=== PATIENT | female | born 1945 | race Caucasian/White ===

== ENCOUNTER 2017-02-23 21:27 | Emergency (ER) | payer OTHER, MEDICARE ==
[2017-02-23 21:40] VITALS: TEMP 98; BMI 39.0
[2017-02-23 22:13] LABS: BASOPHIL 0.8 % (0-2.0); EOSINOPHIL 4.3 % (0-4.5); MCH 29.7 pg (25.7-33.7); MCHC 32.6 g/dl (32.0-36.0); MEAN CELL VOLUME 91.1 fl (80-96); MEAN PLT VOLUME 8.4 fl (7.5-11.1); PLATELET COUNT 218 K/MM3 (134-434); WHITE BLOOD COUNT 10.1 K/mm3 (4.0-10.0)
[2017-02-23 22:24] LABS: INR 1.54 (0.82-1.09); PROTHROMBIN TIME (PATIENT) 17.1 SEC (9.98-11.88)
[2017-02-24 00:43] LABS: ALBUMIN 3.3 g/dl (3.4-5.0); ANION GAP 9 (8-16); CO2 27 mmol/L (21-32); GLUCOSE,RANDOM 106 mg/dL (74-106)
[2017-02-24 00:46] LABS: ALK PHOS 125 U/L (45-117); BILIRUBIN,TOTAL 0.5 mg/dL (0.2-1.0); CREATININE 1.9 mg/dL (0.55-1.02); SGOT/AST 14 U/L (15-37); SGPT/ALT 16 U/L (12-78); TOT PROT 6.7 g/dl (6.4-8.2)
[2017-02-24 00:48] LABS: MAGNESIUM 2.6 mg/dL (1.8-2.4); TROPONIN I < 0.02 ng/ml (0.00-0.05)
--- NOTE | 2017-02-24 01:22 | PDOC ---
History of Present Illness - General Chief Complaint: Chest Pain Stated Complaint: CHEST PAIN Time Seen by Provider: 02/23/17 21:44 - History of Present Illness Initial Comments: 02/24/17 01:20 CHIEF COMPLAINT: shortness of breath HISTORY OF PRESENT ILLNESS: 71 yo M with hx of hypertension, diabetes, nonischemic cardiomyopathy, chronic systolic heart failure, DVT on Xarelto, rheumatoid arthritis, cellulitis, multiple surgeries to knees, hip, and back presents to ED with shortness of breath since yesterday. She states that "I'm in congestive heart failure." She reports that "ever since my surgery my R leg has been swollen like this, since 9 months ago." She states that her leg is in pain but it is a chronic pain that she has had for months. No recent travel or sick contacts. PAST MEDICAL HISTORY: Denies past medical history FAMILY HISTORY: Denies SOCIAL HISTORY: Denies tobacco, alcohol, illicit drug use. SURGICAL HISTORY: Denies ALLERGIES: levofloxacin, methotrexate, PCN, bumetanide REVIEW OF SYSTEMS General/Constitutional: Denies fever or chills. Denies weakness, weight change. HEENT: Denies change in vision. Denies ear pain or discharge. Denies sore throat. Cardiovascular: Shortness of breath, denies chest pain Respiratory: Denies cough, wheezing, or hemoptysis. Gastrointestinal: Denies nausea, vomiting, diarrhea or constipation. Denies rectal bleeding. Genitourinary: Denies dysuria, frequency, or change in urination. Musculoskeletal: "My legs are so swollen, especially my right one ever since my surgery 9 months ago." Skin and breasts: Denies rash or easy bruising. Neurologic: Denies headache, vertigo, loss of consciousness, or loss of sensation. PHYSICAL EXAM General Appearance: Well-appearing, appropriately dressed. No apparent distress. HEENT: EOMI, PERRLA, normal ENT inspection, normal voice, TMs normal, pharynx normal. No conjunctival pallor. No photophobia, scleral icterus. Neck: Supple. Trachea midline. No tenderness, rigidity, carotid bruit, stridor , lymphadenopathy, or thyromegaly. Respiratory/Chest: SOB. Lungs CTAB. No chest tenderness, respiratory distress. No crackles, rales, rhonchi, stridor, wheezing, dullness Cardiovascular: RRR. S1, S2. Vascular Pulses: Dorsalis-Pedis (R): 2+, Dorsalis-Pedis (L): 2+ Gastrointestinal/Abdominal: Normal bowel sounds. Abdomen soft, non-distended. No tenderness or rebound tenderness. No organomegaly, pulsatile mass, guarding , hernia, hepatomegaly, splenomegaly. Musculoskeletal/Extremities: Edematous b/l legs. Normal inspection. FROM of all extremities, normal capillary refill. Pelvis Stable. No CVA tenderness. No tenderness to extremities, pedal edema, swelling, erythema or deformity. Integumentary: Appropriate color, dry, warm. 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 Fully oriented, alert. Appropriate mood/affect. Motor strength 5/5. No appreciable EOM palsy, facial droop or sensory deficit. Past History - Past Medical History Allergies/Adverse Reactions: Allergies Allergy/AdvReac Type Severity Reaction Status Date / Time levofloxacin [From Levaquin] Allergy Severe ANAPHYLAXIS Verified 02/23/17 22:58 methotrexate Allergy Severe Swelling Verified 02/23/17 22:58 Penicillins Allergy Mild Rash Verified 02/23/17 22:58 bumetanide [From Bumex] Allergy Rash Verified 02/23/17 22:58 piperacillin sodium AdvReac Mild Itching Verified 02/23/17 22:58 [From Zosyn] tazobactam sodium AdvReac Mild Itching Verified 02/23/17 22:58 [From Zosyn] Home Medications: Ambulatory Orders Carvedilol [Coreg] 25 mg PO BID 02/05/13 Leflunomide [Arava] 20 mg PO DAILY 02/05/13 Lisinopril [Prinivil] 5 mg PO BID 02/05/13 Gabapentin 300 mg PO BID 03/04/14 Oxycodone HCl/Acetaminophen [Percocet 10-325 mg Tablet] 1 - 2 tab PO Q6H PRN Acetaminophen [Tylenol .Extra-Strength -] 1,000 mg PO Q6H PRN 03/10/15 Furosemide [Lasix -] 20 mg PO DAILY 12/13/15 Rivaroxaban [Xarelto -] 20 mg PO DAILY 12/13/15 Insulin Lispro Protamin/Lispro [Humalog Mix 75-25 Kwikpen] 22 unit SQ BID Cyclobenzaprine HCl [Flexeril -] 10 mg PO HS PRN 03/17/16 Docusate Sodium [Colace -] 100 mg PO DAILY 03/17/16 Folic Acid 1 mg PO DAILY 03/17/16 Multivitamins [Multivit ([facility] Formulary)] 1 tab PO DAILY 03/17/16 Cyclobenzaprine HCl [Flexeril -] 10 mg PO HS 05/15/16 Sulfamethoxazole/Trimethoprim [Bactrim Ds -] 1 tab PO BID 05/15/16 Trazodone HCl 50 mg PO HS 05/15/16 Anemia: No Asthma: No Cancer: No Cardiac Disorders: Yes CVA: No COPD: No CHF: No DVT: Yes Dementia: No Diabetes: Yes GI Disorders: No Disorders: No HTN: Yes Hypercholesterolemia: Yes Liver Disease: No Suicide Attempt (Hx): No Seizures: No Thyroid Disease: No - Surgical History Abdominal Surgery: Yes (GASTRIC BANDING) Appendectomy: No Cardiac Surgery: No Cholecystectomy: Yes Lung Surgery: No Neurologic Surgery: Yes (4 BACK FUSIONS) Orthopedic Surgery: Yes (TKR RT 2004; SHOULDER SX RT, L. KNEE SURGERY-2012,, Rt hip Sx 10/2013 R[facility]) - Immunization History Immunization Up to Date: Yes - Psycho/Social/Smoking Cessation Hx Anxiety: No Suicidal Ideation: No Smoking Status: No Smoking History: Never smoked Have you smoked in the past 12 months: No Number of Cigarettes Smoked Daily: 0 If you are a former smoker, when did you quit?: 40 YRS Hx Alcohol Use: No Drug/Substance Use Hx: No Substance Use Type: None Hx Substance Use Treatment: No *Physical Exam - Vital Signs Last Vital Signs Temp Pulse Resp BP Pulse Ox 98 F 85 16 114/52 96 02/23/17 21:39 02/23/17 22:34 02/23/17 22:34 02/23/17 22:34 02/23/17 22:34 ED Treatment Course - LABORATORY CBC & Chemistry Diagram: 02/23/17 22:08 02/24/17 00:01 - ADDITIONAL ORDERS Additional order review: Laboratory Results 02/24/17 02/24/17 02/23/17 00:01 00:01 22:08 INR Sodium 139 Cancelled Potassium 4.3 Cancelled Chloride 103 Cancelled Carbon Dioxide 27 Cancelled Anion Gap 9 Cancelled BUN 57 H D Cancelled Creatinine 1.9 H D Cancelled Creat Clearance w eGFR 26.13 Cancelled Random Glucose 106 D Cancelled Calcium 9.0 Cancelled Magnesium 2.6 H D Cancelled Total Bilirubin 0.5 D Cancelled AST 14 L Cancelled ALT 16 Cancelled Alkaline Phosphatase 125 H Cancelled Creatine Kinase 138 Cancelled Troponin I < 0.02 Cancelled B-Natriuretic Peptide Cancelled Total Protein 6.7 Cancelled Albumin 3.3 L Cancelled 02/23/17 22:08 INR 1.54 H Sodium Potassium Chloride Carbon Dioxide Anion Gap BUN Creatinine Creat Clearance w eGFR Random Glucose Calcium Magnesium Total Bilirubin AST ALT Alkaline Phosphatase Creatine Kinase Troponin I B-Natriuretic Peptide Total Protein Albumin 02/23/17 22:08 RBC 4.36 MCV 91.1 MCHC 32.6 RDW 15.0 MPV 8.4 Neutrophils % 55.0 D Lymphocytes % 26.5 Monocytes % 13.4 H Eosinophils % 4.3 Basophils % 0.8 - RADIOLOGY Radiology Studies Ordered: Category Date Time Status CHEST X-RAY PORTABLE* [RAD] Stat Radiology 02/23/17 22:49 Taken Medical Decision Making - Medical Decision Making 02/24/17 02:25 71 yo M with hx of hypertension, diabetes, nonischemic cardiomyopathy, chronic systolic heart failure, DVT on Xarelto, rheumatoid arthritis, cellulitis, multiple surgeries to knees, hip, and back presents to ED with shortness of breath since yesterday. -CBC, CMP, PT/INR, card profile, BNP -CXR, EKG CXR wet read normal. EKG - sinus rhythm. 02/24/17 04:07 Laboratory Tests 02/24/17 02/24/17 02/24/17 00:01 00:01 00:01 Creatinine 1.9 H D Magnesium 2.6 H D B-Natriuretic Peptide 277.14 H BNP decreased from previous of 1600+. Patient reassessed; at this time she states she is feeling "ok" and that she is no longer feeling short of breath. Her main concern is that she has had the chronic swelling in her R leg for the past 9 months. Advised patient to follow up with a primary care doctor for usp management of her multiple comorbidities and to coordinate care between her specialists. Patient states she is comfortable going home at this time. Advised patient of signs and symptoms for return to ER; patient verbalized understanding and agrees to plan. *DC/Admit/Observation/Transfer Diagnosis at time of Disposition: Chronic systolic heart failure Acute renal failure Qualifiers: Acute renal failure type: unspecified Qualified Code(s): N17.9 - Acute kidney failure, unspecified - Discharge Dispostion Disposition: HOME Condition at time of disposition: Stable Admit: No - Referrals Referrals: Kyara Amezcua MD [Staff Physician] - Malia Loyd MD [Staff Physician] - - Patient Instructions Printed Discharge Instructions: DI for Heart Failure Additional Instructions: Please follow up with a primary care doctor and capacity planner within the next week. As discussed, it is best to have a primary care doctor that you see regularly to coordinate your care between specialists. If you experience any worsening shortness of breath, chest pain, palpitations, worsening leg pain, or any new or worsening symptoms, please return to the ER.
[2017-02-24 03:27] VITALS: BP 116/60; PULSE 70
--- NOTE | 2017-02-24 16:33 | EKG ---
Test Reason : Blood Pressure : / mmHG Vent. Rate : 091 BPM Atrial Rate : 091 BPM P-R Int : 172 ms QRS Dur : 082 ms QT Int : 364 ms P-R-T Axes : 042 017 050 degrees QTc Int : 447 ms SINUS RHYTHM WITH OCCASIONAL PREMATURE VENTRICULAR COMPLEXES OTHERWISE NORMAL ECG WHEN COMPARED WITH ECG OF 15-MAY-2016 17:09, PREMATURE VENTRICULAR COMPLEXES ARE NOW PRESENT Confirmed by MARIA M CHOU, MARCOS ([id number]) on 02/24/2017 4:33:30 PM Referred By: Confirmed By:MARCOS FRANZ MD
== END 2017-02-24 04:00 | disposition home or self-care (01) ==
LOC: JER 21:27
DX: N17.9 Acute kidney failure, unspecified (principal); I50.22 Chronic systolic (congestive) heart failure; I10 Essential (primary) hypertension; E11.9 Type 2 diabetes mellitus without complications; Z86.718 Personal history of other venous thrombosis and embolism; Z79.01 Long term (current) use of anticoagulants
CPT/HCPCS: 36415; 71010-TC; 80053; 82550; 83735; 83880; 84484; 85025; 85610; 93005; 93010; 99284-25

== ENCOUNTER 2017-04-08 15:58 | Emergency (ER) | payer OTHER, MEDICARE ==
[2017-04-08 16:05] VITALS: BMI 37.2
--- NOTE | 2017-04-08 17:11 | PDOC ---
History of Present Illness <Robi Heard - Last Filed: 04/08/17 17:10> - General History Source: Patient Exam Limitations: No Limitations - History of Present Illness Initial Comments: 04/08/17 17:50 The patient is a 71 year old female with a significant PMH of hypertension, diabetes, nonischemic cardiomyopathy, chronic systolic heart failure, DVT, rheumatoid arthritis, and cellulitis who presents to the emergency department with bilateral lower extremity swelling and discoloration in the foot beginning approximately 3 days ago. The patient notes a right lower extremity blood clot from 10 years ago that was previously treated with Coumadin but is now treated with Xarelto as of 1.5 years ago. The patient notes the swelling is worse in the right lower extremity. The patient denies chest pain, shortness of breath, headache and dizziness. Denies fever, chills, nausea, vomit, diarrhea and constipation. Denies dysuria, frequency, urgency and hematuria. Allergies: Levofloxacin, Methotrexate, Penicillins, Bumetanide, Piperacillin sodium, Tazobactam sodium. Past surgical history: Knee, hip (5 w/in past 9 months), and back surgery. Social history: No reported cigarette, alcohol, or drug use. PCP: Dr. Larry Marble Cleaner: Dr. Pastrana <Micheal Solano - Last Filed: 04/08/17 18:43> <Shelly Maharaj - Last Filed: 04/08/17 19:31> - General Chief Complaint: Edema Stated Complaint: PAIN, ACUTE, R/O DVT RT LEG Time Seen by Provider: 04/08/17 17:10 Past History - Past Medical History Anemia: No Asthma: No Cancer: No Cardiac Disorders: Yes CVA: No COPD: No CHF: No DVT: Yes Dementia: No Diabetes: Yes GI Disorders: No Disorders: No HTN: Yes Hypercholesterolemia: Yes Liver Disease: No Suicide Attempt (Hx): No Seizures: No Thyroid Disease: No Other medical history: obese - Surgical History Abdominal Surgery: Yes (GASTRIC BANDING) Appendectomy: No Cardiac Surgery: No Cholecystectomy: Yes Lung Surgery: No Neurologic Surgery: Yes (4 BACK FUSIONS) Orthopedic Surgery: Yes (TKR RT 2004; SHOULDER SX RT, L. KNEE SURGERY-2012,, Rt hip Sx 10/2013 [facility]) - Immunization History Immunization Up to Date: Yes - Psycho/Social/Smoking Cessation Hx Anxiety: No Suicidal Ideation: No Smoking Status: No Smoking History: Never smoked Have you smoked in the past 12 months: No Number of Cigarettes Smoked Daily: 0 If you are a former smoker, when did you quit?: 40 YRS Information on smoking cessation initiated: No Hx Alcohol Use: No Drug/Substance Use Hx: No Substance Use Type: None Hx Substance Use Treatment: No <Robi Heard - Last Filed: 04/08/17 17:10> <Micheal Solano - Last Filed: 04/08/17 18:43> <Shelly Maharaj - Last Filed: 04/08/17 19:31> - Past Medical History Allergies/Adverse Reactions: Allergies Allergy/AdvReac Type Severity Reaction Status Date / Time levofloxacin [From Levaquin] Allergy Severe ANAPHYLAXIS Verified 04/08/17 16:05 methotrexate Allergy Severe Swelling Verified 04/08/17 16:05 Penicillins Allergy Mild Rash Verified 04/08/17 16:05 bumetanide [From Bumex] Allergy Rash Verified 04/08/17 16:05 piperacillin sodium AdvReac Mild Itching Verified 04/08/17 16:05 [From Zosyn] tazobactam sodium AdvReac Mild Itching Verified 04/08/17 16:05 [From Zosyn] Home Medications: Ambulatory Orders Carvedilol [Coreg] 25 mg PO BID 02/05/13 Leflunomide [Arava] 20 mg PO DAILY 02/05/13 Lisinopril [Prinivil] 5 mg PO BID 02/05/13 Gabapentin 300 mg PO BID 03/04/14 Oxycodone HCl/Acetaminophen [Percocet 10-325 mg Tablet] 1 - 2 tab PO Q6H PRN Rivaroxaban [Xarelto -] 20 mg PO DAILY 12/13/15 Insulin Lispro Protamin/Lispro [Humalog Mix 75-25 Kwikpen] 22 unit SQ BID Multivitamins [Multivit ([facility] Formulary)] 1 tab PO DAILY 03/17/16 Review of Systems - Review of Systems Comments:: 04/08/17 17:50 GENERAL/CONSTITUTIONAL: No fever or chills. No weakness. HEAD, EYES, EARS, NOSE AND THROAT: No change in vision. No ear pain or discharge. No sore throat. CARDIOVASCULAR: No chest pain or shortness of breath. RESPIRATORY: No cough, wheezing, or hemoptysis. GASTROINTESTINAL: No nausea, vomiting, diarrhea or constipation. GENITOURINARY: No dysuria, frequency, or change in urination. MUSCULOSKELETAL: (+) Lower extremity swelling. No joint pain. No neck or back pain. SKIN: No rash NEUROLOGIC: No headache, vertigo, loss of consciousness, or change in strength/ sensation. ENDOCRINE: No increased thirst. No abnormal weight change. HEMATOLOGIC/LYMPHATIC: No anemia, easy bleeding, or history of blood clots. ALLERGIC/IMMUNOLOGIC: No hives or skin allergy. <Micheal Solano - Last Filed: 04/08/17 18:43> *Physical Exam - Vital Signs Last Vital Signs Temp Pulse Resp BP Pulse Ox 97.6 F 83 19 151/64 95 04/08/17 16:03 04/08/17 16:03 04/08/17 16:03 04/08/17 16:03 04/08/17 16:03 <Robi Heard - Last Filed: 04/08/17 17:10> - Vital Signs Last Vital Signs Temp Pulse Resp BP Pulse Ox 97.6 F 83 19 151/64 95 04/08/17 16:03 04/08/17 16:03 04/08/17 16:03 04/08/17 16:03 04/08/17 16:03 - Physical Exam Comments: 04/08/17 17:51 GENERAL: Awake, alert, and fully oriented, in no acute distress HEAD: No signs of trauma EYES: PERRLA, EOMI, sclera anicteric, conjunctiva clear ENT: Auricles normal inspection, hearing grossly normal, nares patent, oropharynx clear without exudates. Moist mucosa NECK: Normal ROM, supple, no lymphadenopathy, JVD, or masses LUNGS: Breath sounds equal, clear to auscultation bilaterally. No wheezes, and no crackles HEART: Regular rate and rhythm, normal S1 and S2, no murmurs, rubs or gallops ABDOMEN: Soft, nontender, normoactive bowel sounds. No guarding, no rebound. No masses EXTREMITIES: (+) Lower extremity edema, right worse than left. Normal range of motion, no edema. No clubbing or cyanosis. No cords, erythema, or tenderness NEUROLOGICAL: Cranial nerves II through XII grossly intact. Normal speech. SKIN: (+) Excessively dry skin in extremities. Warm, normal turgor, no rashes or lesions noted. <Micheal Solano - Last Filed: 04/08/17 18:43> - Vital Signs Last Vital Signs Temp Pulse Resp BP Pulse Ox 97.6 F 83 19 151/64 95 04/08/17 16:03 04/08/17 16:03 04/08/17 16:03 04/08/17 16:03 04/08/17 16:03 <Shelly Maharaj - Last Filed: 04/08/17 19:31> Medical Decision Making - Medical Decision Making 04/08/17 19:27 I received pt on signout; no venous doppler DVT; no arterial doppler clot. Pt has disagnosis: leg swelling NOS. Home with PMD follow up. <Shelly Maharaj - Last Filed: 04/08/17 19:31> *DC/Admit/Observation/Transfer - Attestations Physician Attestion: 04/08/17 17:10 I, Dr. Robi Heard, attest that this document has been prepared under my direction and personally reviewed by me in its entirety. I further attest, that it accurately reflects all work, treatment, procedures and medical decision -making performed by me. <Robi Heard - Last Filed: 04/08/17 17:10> - Attestations Scribe Attestion: 04/08/17 17:51 Documentation prepared by Micheal Solano, acting as medical imaging tech for Robi Heard DO. <Micheal Solano - Last Filed: 04/08/17 18:43> - Discharge Dispostion Admit: No <Shelly Maharaj - Last Filed: 04/08/17 19:31> Diagnosis at time of Disposition: Leg swelling - Discharge Dispostion Disposition: HOME Condition at time of disposition: Stable - Referrals Referrals: Beryl Pandey MD [Primary Care Provider] - - Patient Instructions Printed Discharge Instructions: DI for Peripheral Edema, Unilateral, DI for Archer's Cyst
[2017-04-08 20:17] VITALS: BP 132/77; PULSE 64
[2017-04-08 20:18] VITALS: TEMP 98.2
== END 2017-04-08 20:18 | disposition home or self-care (01) ==
LOC: JER 15:58
DX: R60.0 Localized edema (principal); I25.10 Atherosclerotic heart disease of native coronary artery without angina pectoris; I50.22 Chronic systolic (congestive) heart failure; I10 Essential (primary) hypertension; I42.8 Other cardiomyopathies; E11.9 Type 2 diabetes mellitus without complications; Z79.4 Long term (current) use of insulin; M06.80 Other specified rheumatoid arthritis, unspecified site
CPT/HCPCS: 93925-TC; 93970-TC; 99282-25

== ENCOUNTER 2017-05-31 19:57 | Inpatient (IN) | payer OTHER, MEDICARE ==
--- NOTE | 2017-05-31 20:28 | PDOC ---
"History of Present Illness - General Chief Complaint: Back Pain Stated Complaint: PAIN Time Seen by Provider: 05/31/17 20:22 History Source: Patient Exam Limitations: No Limitations - History of Present Illness Initial Comments: 05/31/17 20:28 The Drug Utilization Report below displays all of the controlled substance prescriptions, if any, that your patient has filled in the last twelve months. The information displayed on this report is compiled from pharmacy submissions to the Department, and accurately reflects the information as submitted by the pharmacies. This report was requested by: Gary Buckley | Reference #: [id number] Others' Prescriptions Patient Name: Rachael Chatman Date: 1945 Address: [address] [place] [address] Sex: Female Rx Written Rx Dispensed Drug Quantity Days Supply Prescriber Name 04/28/2017 05/12/2017 oxycodone-acetaminophen 10-325 mg tab 120 30 Shein, Sreekanth Rivas MD 03/30/2017 04/13/2017 oxycodone-acetaminophen 10-325 mg tab 120 30 Shein, Sreekanth Rivas MD 03/30/2017 04/13/2017 zolpidem tartrate 10 mg tablet 30 30 SheinSreekanth MS, MD 02/04/2017 02/04/2017 endocet 10-325 mg tablet 120 30 Shein, Sreekanth Rivas MD 02/04/2017 02/04/2017 zolpidem tartrate 10 mg tablet 30 30 Shein, Sreekanth Rivas MD 01/07/2017 01/07/2017 oxycodone-acetaminophen 10-325 mg tab 120 30 Shein, Sreekanth Rivas MD 01/07/2017 01/07/2017 zolpidem tartrate 10 mg tablet 30 30 SheinSreekanth MS, MD 12/08/2016 12/08/2016 oxycodone-acetaminophen 10-325 mg tab 120 30 Shein, Sreekanth Rivas MD 12/08/2016 12/08/2016 zolpidem tartrate 10 mg tablet 30 30 Shein, Sreekanth Rivas MD 10/22/2016 10/23/2016 endocet 10-325 mg tablet 120 30 Shein, Sreekanth Rivas MD 10/22/2016 10/23/2016 zolpidem tartrate 10 mg tablet 30 30 Shein, Sreekanth Rivas MD 09/13/2016 09/13/2016 oxycodone-acetaminophen 5-325 mg tab 30 5 Brittany Andrade 08/18/2016 08/18/2016 oxycodone-acetaminophen 10-325 mg tab 120 30 Sreekanth Borjas MS, MD 08/18/2016 08/18/2016 zolpidem tartrate 10 mg tablet 30 30 Sreekanth Borjas MS, MD 07/14/2016 07/22/2016 oxycodone-acetaminophen 10-325 mg tab 120 30 Sreekanth Borjas MS, MD 07/14/2016 07/14/2016 zolpidem tartrate 10 mg tablet 30 30 Sreekanth Borjas MS, MD 06/23/2016 06/23/2016 oxycodone-acetaminophen 10-325 mg tab 120 30 Sreekanth Borjas MS, MD * - Drugs marked with an asterisk are compound drugs. If the compound drug is made up of more than one controlled substance, then each controlled substance will be a separate row in the table. 05/31/17 20:43 71yo Female patient w/ PmHx: HTN, DM, DVT (10yrs ago), CHF (Systolic), Cardiomyopathy, RA, and currently taking Xarelto. Patient states for the past 3 weeks experiencing severe back pain. She reports that she was told by her orthopedic surgeon that the hardware in her back was loose and she needed to have emergency surgery and [facility], but decided to put it off for unknown reasons per patient. Patient reports she is currently unable to get out of bed, ambulate, or participate in any activities of daily living. She states she has been in contact with Dr. Borjas office and was instructed to go to nearest ED. She denies any CP, Abd pain, n/v/d, Diff breathing, rectal bleeding , hematuria, dysuria, fever or any other complaints at this time. Occurred: reports: other (Ongoing x 3 weeks.). denies: just prior to arrival, this morning, this afternoon, this evening, yesterday, last week Severity: reports: severe. denies: mild, moderate Pain Location: reports: back. denies: none, abdomen, chest, face, head, lower extremity, mouth, neck, other, pelvis, upper extremity Method of Injury: Yes: other (Hx multiple back surgeries.). No: unknown, assault, direct blow, fall, motor vehicle crash Modifying Factors: improves with: pain medication (Oxycodone 5/325mg). worse with: None, cold therapy, immobilization, rest, other Associated Symptoms (Fall): denies symptoms Past History - Travel Traveled outside of the country in the last 30 days: No Close contact w/someone who was outside of country & ill: No - Past Medical History Allergies/Adverse Reactions: Allergies Allergy/AdvReac Type Severity Reaction Status Date / Time levofloxacin [From Levaquin] Allergy Severe ANAPHYLAXIS Verified 05/31/17 20:16 methotrexate Allergy Severe Swelling Verified 05/31/17 20:16 Penicillins Allergy Mild Rash Verified 05/31/17 20:16 bumetanide [From Bumex] Allergy Rash Verified 05/31/17 20:16 piperacillin sodium AdvReac Mild Itching Verified 05/31/17 20:16 [From Zosyn] tazobactam sodium AdvReac Mild Itching Verified 05/31/17 20:16 [From Zosyn] Home Medications: Ambulatory Orders Carvedilol [Coreg] 25 mg PO BID 02/05/13 Leflunomide [Arava] 20 mg PO DAILY 02/05/13 Lisinopril [Prinivil] 5 mg PO BID 02/05/13 Gabapentin 300 mg PO BID 03/04/14 Oxycodone HCl/Acetaminophen [Percocet 10-325 mg Tablet] 1 - 2 tab PO Q6H PRN Rivaroxaban [Xarelto -] 20 mg PO DAILY 12/13/15 Insulin Lispro Protamin/Lispro [Humalog Mix 75-25 Kwikpen] 22 unit SQ BID Multivitamins [Multivit ([facility] Formulary)] 1 tab PO DAILY 03/17/16 Anemia: No Asthma: No Cancer: No Cardiac Disorders: Yes CVA: No COPD: No CHF: No DVT: Yes Dementia: No Diabetes: Yes GI Disorders: No Disorders: No HTN: Yes Hypercholesterolemia: Yes Liver Disease: No Seizures: No Thyroid Disease: No - Surgical History Abdominal Surgery: Yes (GASTRIC BANDING) Appendectomy: No Cardiac Surgery: No Cholecystectomy: Yes Lung Surgery: No Neurologic Surgery: Yes (4 BACK FUSIONS) Orthopedic Surgery: Yes (TKR RT 2004; SHOULDER SX RT, L. KNEE SURGERY-2012,, Rt hip Sx 10/2013 RTHR) - Immunization History Immunization Up to Date: Yes - Suicide/Smoking/Psychosocial Hx Smoking Status: No Smoking History: Never smoked Have you smoked in the past 12 months: No Number of Cigarettes Smoked Daily: 0 If you are a former smoker, when did you quit?: 40 YRS Information on smoking cessation initiated: No Hx Alcohol Use: No Drug/Substance Use Hx: No Substance Use Type: None Hx Substance Use Treatment: No Trauma Specific PMHX - Complaint Specific PMHX Arthritis: No Back Injury: Yes (hx) Neck Injury: No Hx Sacro Iliac Joint Dysfunction: No Review of Systems - Review of Systems Able to Perform ROS?: Yes Is the patient limited Mohawk proficient: No Musculoskeletal: Yes: Back Pain All Other Systems: Reviewed and Negative *Physical Exam - Vital Signs Last Vital Signs Temp Pulse Resp BP Pulse Ox 98.1 F 68 14 109/42 96 05/31/17 20:16 05/31/17 20:16 05/31/17 20:16 05/31/17 20:16 05/31/17 20:16 - Physical Exam General Appearance: Yes: Nourished, Appropriately Dressed, Apparent Distress, Moderate Distress. No: Mild Distress, Severe Distress Neck: positive: Trachea midline, Supple. negative: Lymphadenopathy (R), Lymphadenopathy (L), Tender lateral, Tender midline Respiratory/Chest: positive: Lungs Clear, Normal Breath Sounds. negative: Chest Tender, Respiratory Distress, Accessory Muscle Use, Labored Respiration, Rapid RR, Decreased Breath Sounds, Paradoxal Breathing, Rhonchi, Stridor, Wheezing Cardiovascular: positive: Regular Rhythm, Regular Rate. negative: Tachycardia Gastrointestinal/Abdominal: positive: Normal Bowel Sounds, Soft, Distended. negative: Tender, Guarding, Rebound, Tenderness Musculoskeletal: positive: Normal Inspection, Decreased Range of Motion, Vertebral Tenderness (Thoracic- Lumbar- Sacral midline tenderness.). negative: CVA Tenderness Extremity: positive: Normal Capillary Refill, Normal Inspection, Normal Range of Motion. negative: Pedal Edema, Swelling, Calf Tenderness, Erythema, Inflammation Integumentary: positive: Normal Color, Dry, Warm Neurologic: positive: burlapper II-XII NML intact, Fully Oriented, Alert, Normal Mood/ Affect, Normal Response, Motor Strength 5/5 ED Treatment Course - LABORATORY CBC & Chemistry Diagram: 05/31/17 22:00 05/31/17 22:00 Medical Decision Making - Medical Decision Making 06/01/17 00:[address] Sreekanth Borjas would request that patient be admitted to hospitalist service for intractable back pain and have MRI/MRA of thoracic/ lumbar spine. *DC/Admit/Observation/Transfer Diagnosis at time of Disposition: Intractable back pain - Discharge Dispostion Condition at time of disposition: Fair Admit: Yes"
[2017-05-31] MEDS ORDERED: morphine CARPU-JECT 4 MG/1 ML DISP.SYRIN IVPUSH ONE (20:41)
[2017-05-31] MEDS ORDERED: SODIUM CHLORIDE 1,000 ML IV STA (20:41)
[2017-05-31] MEDS ORDERED: ONDANSETRON 4 MG/2 ML VIAL IVPUSH ONE (20:41)
[2017-05-31] MEDS ORDERED: METHOCARBAMOL 500 MG TABLET PO ONE (20:50)
--- NOTE | 2017-05-31 22:01 | PDOC ---
*Physical Exam - Vital Signs Last Vital Signs Temp Pulse Resp BP Pulse Ox 98.1 F 68 14 109/42 96 05/31/17 20:16 05/31/17 20:16 05/31/17 20:16 05/31/17 20:16 05/31/17 20:16 ED Treatment Course - LABORATORY CBC & Chemistry Diagram: 06/01/17 06:40 06/01/17 06:40 Medical Decision Making - Medical Decision Making 05/31/17 22:01 agree with care from COSTA Buckley *DC/Admit/Observation/Transfer Diagnosis at time of Disposition: Intractable back pain - Discharge Dispostion Condition at time of disposition: Fair
[2017-05-31 22:13] LABS: BASOPHIL 0.9 % (0-2.0); EOSINOPHIL 3.4 % (0-4.5); MCH 31.6 pg (25.7-33.7); MCHC 33.4 g/dl (32.0-36.0); MEAN CELL VOLUME 94.6 fl (80-96); MEAN PLT VOLUME 7.9 fl (7.5-11.1); NEUTROPHILS 52.8 % (42.8-82.8); PLATELET COUNT 243 K/MM3 (134-434); RDW 14.9 % (11.6-15.6)
[2017-05-31] MEDS ORDERED: METHOCARBAMOL 500 MG TABLET ONE (22:18)
[2017-05-31] MEDS ORDERED: ONDANSETRON 4 MG/2 ML VIAL ONE (22:19)
[2017-05-31 22:26] LABS: INR 0.96 (0.82-1.09); PROTHROMBIN TIME (PATIENT) 10.9 SEC (9.98-11.88)
[2017-05-31 22:36] LABS: ALBUMIN 3.3 g/dl (3.4-5.0); ANION GAP 8 (8-16); BILIRUBIN,TOTAL 0.3 mg/dL (0.2-1.0); CALCIUM 8.8 mg/dL (8.5-10.1); CO2 27 mmol/L (21-32); GLUCOSE,RANDOM 84 mg/dL (74-106); SGPT/ALT 16 U/L (12-78); TOT PROT 6.8 g/dl (6.4-8.2)
[2017-05-31 22:37] LABS: ALK PHOS 125 U/L (45-117)
[2017-05-31 22:50] LABS: SGOT/AST 14 U/L (15-37)
[2017-05-31] MEDS ORDERED: morphine CARPU-JECT 10 MG/1 ML DISP.SYRIN ONE (22:54)
[2017-06-01] MEDS ORDERED: HYDROmorphone HCL CARPU-JECT 1 MG/1 ML DISP.SYRIN IVPUSH ONE (00:11)
[2017-06-01] MEDS ORDERED: HYDROmorphone HCL CARPU-JECT 1 MG/1 ML DISP.SYRIN ONE (00:33)
--- NOTE | 2017-06-01 00:33 | PN ---
Teaching Attending Note Name of Resident: Dani Ibrahim ATTENDING PHYSICIAN STATEMENT I saw and evaluated the patient. I reviewed the resident's note and discussed the case with the resident. I agree with the resident's findings and plan as documented. SUBJECTIVE: 71yo Female patient w/ PmHx: HTN, DM, DVT (10yrs ago on Xarelto), CHF (Systolic) , Cardiomyopathy, RA, prior spinal fusion with rods who presents with severe back pain. States pain has been present for 3 weeks. She was told by her orthopedist that she needed emergency surgery at [facility], but pt. decided to put off surgery for reasons unknown. States her pain is so severe that she has limited rom and is unable to preform activities of daily living. Dr. Borjas's office had advised her to go to nearest hospital for eval. OBJECTIVE: Physical: VS: Vital Signs Period Temp Pulse Resp BP Sys/Marcelo Pulse Ox Last 24 Hr 98.1 F 68 14 109/42 96 GEN: NAD, resting in bed, able to speak full sentences HEENT: NCAT, PERRL, Throat without erythema or exudates CARD: RRR S1, S2 RESP: CTAB ABD: BSx4, NTD to palpation EXT: Pulses intact, - C/C/E, MS 5/5 CBCD WBC 7.0 K/mm3 (4.0-10.0) D 05/31/17 22:00 RBC 4.29 M/mm3 (3.60-5.2) 05/31/17 22:00 Hgb 13.6 GM/dL (10.7-15.3) 05/31/17 22:00 Hct 40.6 % (32.4-45.2) 05/31/17 22:00 MCV 94.6 fl (80-96) 05/31/17 22:00 MCHC 33.4 g/dl (32.0-36.0) 05/31/17 22:00 RDW 14.9 % (11.6-15.6) 05/31/17 22:00 Plt Count 243 K/MM3 (134-434) 05/31/17 22:00 MPV 7.9 fl (7.5-11.1) 05/31/17 22:00 CMP Sodium 140 mmol/L (136-145) 05/31/17 22:00 Potassium 4.6 mmol/L (3.5-5.1) 05/31/17 22:00 Chloride 105 mmol/L (98-107) 05/31/17 22:00 Carbon Dioxide 27 mmol/L (21-32) 05/31/17 22:00 Anion Gap 8 (8-16) 05/31/17 22:00 BUN 33 mg/dL (7-18) H D 05/31/17 22:00 Creatinine 1.0 mg/dL (0.55-1.02) D 05/31/17 22:00 Creat Clearance w eGFR 54.81 (>60) 05/31/17 22:00 Random Glucose 84 mg/dL (74-106) D 05/31/17 22:00 Calcium 8.8 mg/dL (8.5-10.1) 05/31/17 22:00 Total Bilirubin 0.3 mg/dL (0.2-1.0) D 05/31/17 22:00 AST 14 U/L (15-37) L 05/31/17 22:00 ALT 16 U/L (12-78) 05/31/17 22:00 Alkaline Phosphatase 125 U/L (45-117) H 05/31/17 22:00 Total Protein 6.8 g/dl (6.4-8.2) 05/31/17 22:00 Albumin 3.3 g/dl (3.4-5.0) L 05/31/17 22:00 EKG- PENDING CXR- PENDING Ambulatory Orders Carvedilol [Coreg] 25 mg PO BID 02/05/13 Leflunomide [Arava] 20 mg PO DAILY 02/05/13 Lisinopril [Prinivil] 5 mg PO BID 02/05/13 Gabapentin 300 mg PO BID 03/04/14 Oxycodone HCl/Acetaminophen [Percocet 10-325 mg Tablet] 1 - 2 tab PO Q6H PRN Rivaroxaban [Xarelto -] 20 mg PO DAILY 12/13/15 Insulin Lispro Protamin/Lispro [Humalog Mix 75-25 Kwikpen] 22 unit SQ BID Multivitamins [Multivit ([facility] Formul[facility])] 1 tab PO DAILY 03/17/16 ASSESSMENT AND PLAN: 71 F with pmhx of CHF, DVT multiple on lifelong a/c, DM, cardiomyopathy and RA who presents with back longoria 1.) Intractable Back Pain with Hardware - MRI/MRA of thoracic/lumbar spine - Consulted by ED-reccs appreciated - Type and Screen - Coags - Repeat labs in AM - NPO after MN 2.) Dvt/PE - Hold Xarelto - Hep. gtt 3.) DM - FS - RAISS - NPO 4.) Chronic Systolic Heart Failure - EKG and CXR - Not in Exacerbation -C/W Home meds - Repeat Echo as pt. was due prior to sx 5.) Cardiomyopathy - ECHO rpt. 6.) RA - C/W home meds Place in MED-Ex
--- NOTE | 2017-06-01 00:49 | HP ---
CHIEF COMPLAINT: PCP: HISTORY OF PRESENT ILLNESS: This is a 71 yo F with PMH of chronic back pain s/p multiple back surgeries, HTN , DM, DVT and PE x3 (10yrs ago, on xeralto), CHF (Systolic), nonischemic Cardiomyopathy, RA, who presents due to worsening back pain x 3 weeks, which has become unbearable over the past 2 days. She was told by her orthopedic surgeon Sr Borjas that she might have loose hardware in her back and may needed to have emergency surgery, which has not yet been scheduled. She has not taken xeralto in 10 days in anticipation of possible surgery. She has been taking 4 percocet/day without relief and has not been able to move today or participate in any activities of daily living. She reports increased weakness and numbness in RLE although weakness is byproduct of multiple R hip surgeries. She denies sob, CP, Abd pain, n/v/d, f/c, h/a, melena, hematuria, dysuria. She states that Dr. Borjas instructed her to go to nearest ED. ED has been in contact with him as well, he has recommended pain management, MRI/MRA lumbar thoracic spine. ER course was notable for: (1)labs (2)morphine, dilaudid (3) Recent Travel: PAST MEDICAL HISTORY: PAST SURGICAL HISTORY: Social History: Smoking: Alcohol: Drugs: Family History: Allergies levofloxacin [From Levaquin] Allergy (Severe, Verified 05/31/17 20:16) ANAPHYLAXIS methotrexate Allergy (Severe, Verified 05/31/17 20:16) Swelling BLISTERS; ALSO ALLERGY TO PCN MANY YRS AGO Penicillins Allergy (Mild, Verified 05/31/17 20:16) Rash bumetanide [From Bumex] Allergy (Verified 05/31/17 20:16) Rash piperacillin sodium [From Zosyn] Adverse Reaction (Mild, Verified 05/31/17 20:16 ) Itching tazobactam sodium [From Zosyn] Adverse Reaction (Mild, Verified 05/31/17 20:16) Itching HOME MEDICATIONS: Home Medications Medication Instructions Recorded Carvedilol [Coreg] 25 mg PO BID 02/05/13 Leflunomide [Arava] 20 mg PO DAILY 02/05/13 Lisinopril [Prinivil] 5 mg PO BID 02/05/13 Gabapentin 300 mg PO BID 03/04/14 Oxycodone HCl/Acetaminophen 1 - 2 tab PO Q6H PRN 03/04/14 [Percocet 10-325 mg Tablet] Rivaroxaban [Xarelto -] 20 mg PO DAILY 12/13/15 Insulin Lispro Protamin/Lispro 22 unit SQ BID 12/15/15 [Humalog Mix 75-25 Kwikpen] Multivitamins [Multivit ([facility] 1 tab PO DAILY 03/17/16 Formulary)] REVIEW OF SYSTEMS CONSTITUTIONAL: Absent: fever, chills HEENT: Absent: rhinorrhea, nasal congestion, throat pain, throat swelling CARDIOVASCULAR: Absent: chest pain, syncope, palpitations, irregular heart rate, lightheadedness , peripheral edema RESPIRATORY: Absent: cough, shortness of breath, dyspnea with exertion, orthopnea, wheezing, stridor, hemoptysis GASTROINTESTINAL: Absent: abdominal pain, abdominal distension, nausea, vomiting, diarrhea, constipation, melena, hematochezia GENITOURINARY: Absent: dysuria MUSCULOSKELETAL: Absent: neck pain SKIN: Absent: rash, itching, pallor HEMATOLOGIC/IMMUNOLOGIC: Absent: frequent infections ENDOCRINE: Absent: unexplained weight gain, unexplained weight loss, heat intolerance, cold intolerance NEUROLOGIC: Absent: headache, dizziness, bladder or bowel incontinence PSYCHIATRIC: Absent: anxiety, depression PHYSICAL EXAMINATION Vital Signs - 24 hr 05/31/17 20:16 Temperature 98.1 F Pulse Rate 68 Respiratory 14 Rate Blood Pressure 109/42 O2 Sat by Pulse 96 Oximetry (%) GENERAL: Awake, alert, and fully oriented, in moderate distress. HEAD: Normal with no signs of trauma. EYES: Pupils equal, round and reactive to light, extraocular movements intact, sclera anicteric, conjunctiva clear. No lid lag. EARS, NOSE, THROAT: Moist mucous membranes. NECK: supple without JVD LUNGS: Breath sounds equal, clear to auscultation bilaterally. HEART: Regular rate and rhythm, normal S1 and S2 ABDOMEN: Soft, nontender, not distended, normoactive bowel sounds MUSCULOSKELETAL: No CVA tenderness. UPPER EXTREMITIES: 2+ pulses, warm, well-perfused. No cyanosis. No clubbing. No peripheral edema. LOWER EXTREMITIES: 2+ pulses, warm, well-perfused. No calf tenderness. No peripheral edema. NEUROLOGICAL: Cranial nerves II-XII intact. Normal speech. RLE sensation decreased to fine touch. RLE muscle strength 5/5 distally and 4/5 proximally. sensation intact in other extremities, strength 5/5 in other extremities. PSYCHIATRIC: Cooperative. Good eye contact. Appropriate mood and affect. SKIN: Warm, dry Laboratory Results - last 24 hr 05/31/17 05/31/17 05/31/17 22:00 22:00 22:00 WBC 7.0 D RBC 4.29 Hgb 13.6 Hct 40.6 MCV 94.6 MCH 31.6 MCHC 33.4 RDW 14.9 Plt Count 243 MPV 7.9 Neutrophils % 52.8 Lymphocytes % 26.7 Monocytes % 16.2 H Eosinophils % 3.4 Basophils % 0.9 PT with INR 10.90 INR 0.96 D Sodium 140 Potassium 4.6 Chloride 105 Carbon Dioxide 27 Anion Gap 8 BUN 33 H D Creatinine 1.0 D Creat Clearance w eGFR 54.81 Random Glucose 84 D Calcium 8.8 Total Bilirubin 0.3 D AST 14 L ALT 16 Alkaline Phosphatase 125 H Total Protein 6.8 Albumin 3.3 L ASSESSMENT/PLAN: This is a 71 yo F with PMH of chronic back pain s/p multiple back surgeries, HTN , DM, DVT and PE x3 (10yrs ago, on xeralto), CHF (Systolic), nonischemic Cardiomyopathy, RA, who presents due to worsening back pain x 3 weeks, which has become unbearable over the past 2 days. Inractable back pain -s/p multiple spinal surgeries with hardware -ortho on case -mri/mra thor/lumb spine -npo for possible surgery -pain contol IV tylenol, morphine -galan for comfort [place]y of DVT, PE -hold xeralto -hep drip; can stop and reverse before surgery Systolic CHF, nonischemic cardiomyopathy -continue home diuretics -baseline CXR -strict I and O, daily weights -Cardio consult Dr Pastrana, TTE for pre op clearance if kali is needed DM -[facility] Dispo: admit med kali Problem List - Problem (1) Intractable back pain Code(s): M54.9 - DORSALGIA, UNSPECIFIED (2) Chronic systolic heart failure Code(s): I50.22 - CHRONIC SYSTOLIC (CONGESTIVE) HEART FAILURE (3) History of DVT (deep vein thrombosis) Code(s): Z86.718 - PERSONAL HISTORY OF OTHER VENOUS THROMBOSIS AND EMBOLISM (4) Hypertension Code(s): I10 - ESSENTIAL (PRIMARY) HYPERTENSION (5) Non-ischemic cardiomyopathy Code(s): I42.9 - CARDIOMYOPATHY, UNSPECIFIED (6) Obstructive sleep apnea Code(s): G47.33 - OBSTRUCTIVE SLEEP APNEA (ADULT) (PEDIATRIC) (7) Rheumatoid arthritis Code(s): M06.9 - RHEUMATOID ARTHRITIS, UNSPECIFIED (8) Type 2 diabetes mellitus Code(s): E11.9 - TYPE 2 DIABETES MELLITUS WITHOUT COMPLICATIONS Visit type - Emergency Visit Emergency Visit: Yes Care time: The patient presented to the Emergency Department on the above date and was hospitalized for further evaluation of their emergent condition. - New Patient This patient is new to me today: Yes Date on this admission: 06/01/17 - Critical Care Critical Care patient: No
[2017-06-01] MEDS ORDERED: morphine CARPU-JECT 4 MG/1 ML DISP.SYRIN IVPUSH PRN (01:02)
[2017-06-01] MEDS ORDERED: HEPARIN NA (PORCINE) 5,000 UNITS/ML 1ML VIAL IVPUSH PRN (01:08)
[2017-06-01] MEDS ORDERED: ACETAMINOPHEN 1000 MG/100 ML VIAL (NON FORMULARY) IVPB PRN (01:15)
[2017-06-01] MEDS ORDERED: DOCUSATE SODIUM 100 MG CAPSULE (FP) PO PRN (01:20)
[2017-06-01] MEDS ORDERED: SODIUM CHLORIDE 1,000 ML IV SCH (01:30)
[2017-06-01 01:33] LABS: URINE APPEARANCE CLEAR; URINE BILIRUBIN NEGATIVE (NEGATIVE); URINE BLOOD NEGATIVE (NEGATIVE); URINE COLOR LTYELLOW; URINE GLUCOSE (UA) NEGATIVE (NEGATIVE); URINE KETONE NEGATIVE (NEGATIVE); URINE NITRITE NEGATIVE (NEGATIVE); URINE PROTEIN NEGATIVE (NEGATIVE); URINE UROBILINOGEN NEGATIVE mg/dL (0.2-1.0)
--- NOTE | 2017-06-01 02:44 | HP ---
CHIEF COMPLAINT: back pain PCP: Beryl Pandey HISTORY OF PRESENT ILLNESS: 71F w/ hx of HTN, CHF, DM, DVT/PE on eliquis, RA, syncope, multiple back and joint surgeries, presenting with worsening back pain over the past 3 weeks. The patient reports that she always has severe back pain, but over the past 3 weeks , it has worsened. The pain is 10/10, feels like "her muscles are being twisted, " radiates from her lower back down both of her legs, improved with percocet and with resting supine, and worsened by sitting and ambulation. In the last day , she had taken 3 percocets in 5 hours without relief. She states that on , she received a CT which showed loosening of her hardware for which her orthopedic surgeon (Dr. Borjas) wanted to do surgery on. The patient was told she possibly would have the surgery last tuesday, and so she discontinued her eliquis, but patient never received the surgery yet as they were unable to fit her into the OR schedule. She endorses weakness and numbness in her right leg. She denies fevers, chills, blurry vision, SPARROW, worsening SOB, chest pain, abdominal pain, n/v/d/c, and urinary problems. Recent Travel: PAST MEDICAL HISTORY: HTN, CHF, DM, DVT/PE on eliquis, RA, syncope PAST SURGICAL HISTORY: cholecystectomy, hysterectomy, multiple joint replacements, gastric banding, back fusions x 4 Social History: Smoking: none Alcohol: none Drugs: cannabis sometimes Family History: Allergies levofloxacin [From Levaquin] Allergy (Severe, Verified 05/31/17 20:16) ANAPHYLAXIS methotrexate Allergy (Severe, Verified 05/31/17 20:16) Swelling BLISTERS; ALSO ALLERGY TO PCN MANY YRS AGO Penicillins Allergy (Mild, Verified 05/31/17 20:16) Rash bumetanide [From Bumex] Allergy (Verified 05/31/17 20:16) Rash piperacillin sodium [From Zosyn] Adverse Reaction (Mild, Verified 05/31/17 20:16 ) Itching tazobactam sodium [From Zosyn] Adverse Reaction (Mild, Verified 05/31/17 20:16) Itching HOME MEDICATIONS: Home Medications Medication Instructions Recorded Carvedilol [Coreg] 25 mg PO BID 02/05/13 Leflunomide [Arava] 20 mg PO DAILY 02/05/13 Lisinopril [Prinivil] 5 mg PO BID 02/05/13 Gabapentin 300 mg PO BID 03/04/14 Oxycodone HCl/Acetaminophen 1 - 2 tab PO Q6H PRN 03/04/14 [Percocet 10-325 mg Tablet] Rivaroxaban [Xarelto -] 20 mg PO DAILY 12/13/15 Insulin Lispro Protamin/Lispro 22 unit SQ BID 12/15/15 [Humalog Mix 75-25 Kwikpen] Multivitamins [Multivit ([facility] 1 tab PO DAILY 03/17/16 Formulary)] REVIEW OF SYSTEMS CONSTITUTIONAL: Absent: fever, chills, diaphoresis, generalized weakness, malaise, loss of appetite, weight change HEENT: Absent: rhinorrhea, nasal congestion, throat pain, throat swelling, difficulty swallowing, mouth swelling, ear pain, eye pain, visual changes CARDIOVASCULAR: Absent: chest pain, syncope, palpitations, irregular heart rate, lightheadedness , peripheral edema RESPIRATORY: Absent: cough, shortness of breath, dyspnea with exertion, orthopnea, wheezing, stridor, hemoptysis GASTROINTESTINAL: Absent: abdominal pain, abdominal distension, nausea, vomiting, diarrhea, constipation, melena, hematochezia GENITOURINARY: Absent: dysuria, frequency, urgency, hesitancy, hematuria, flank pain, genital pain MUSCULOSKELETAL: Absent: myalgia, arthralgia, joint swelling, neck pain Present: back pain, leg pain SKIN: Absent: rash, itching, pallor HEMATOLOGIC/IMMUNOLOGIC: Absent: easy bleeding, easy bruising, lymphadenopathy, frequent infections ENDOCRINE: Absent: unexplained weight gain, unexplained weight loss, heat intolerance, cold intolerance NEUROLOGIC: Absent: headache, dizziness, unsteady gait, seizure, mental status changes, bladder or bowel incontinence Present: L leg weakness and numbness PSYCHIATRIC: Absent: anxiety, depression, suicidal or homicidal ideation, hallucinations. PHYSICAL EXAMINATION GENERAL: elderly female, awake, alert, and fully oriented, in mild distress. HEENT: NC, AT NECK: Normal range of motion, supple without lymphadenopathy, JVD, or masses. LUNGS: Breath sounds equal, clear to auscultation bilaterally. No wheezes, and no crackles. No accessory muscle use. HEART: Regular rate and rhythm, normal S1 and S2 without murmur, rub or gallop. ABDOMEN: large pannus, soft, 7cm protruding reducible mass palpated in hypogastric region, NT, no peritoneal signs MUSCULOSKELETAL: Normal range of motion at all joints. No bony deformities or tenderness. No CVA tenderness. UPPER EXTREMITIES: 2+ pulses, warm, well-perfused. No cyanosis. No clubbing. No peripheral edema. LOWER EXTREMITIES: 1+ edema NEUROLOGICAL: Cranial nerves II-XII intact. Normal speech. PSYCHIATRIC: Cooperative. Good eye contact. Appropriate mood and affect. SKIN: Warm, dry, normal turgor, no rashes or lesions noted, normal capillary refill. ASSESSMENT/PLAN: 71F w/ hx of HTN, CHF, DM, DVT/PE on eliquis, RA, syncope, multiple back and joint surgeries, presenting with worsening back pain over the past 3 weeks, admitted for intractable pain and possible orthopedic surgery. #Intractable back pain -orthopedics on board- Dr. Borjas. appreciated recs to order MRI/MRA of thoracic and lumbar spine. F/u results -pain control with APAP 1000 IV q12h and morphine 4mg q4h -continue cyclobezaprine -neuro assessment q4h -NPO for possible surgery #HTN -continue coreg, lisinopril, torsemide -monitor BP #CHF -continue torsemide -baseline CXR -strict I and O, daily weights -Cardio consult Dr Pastrana, TTE for pre op clearance if surgery is needed #DM -continue lispro -ISS -BGM achs -continue gabapentin #DVT/PE -eliquis held -start heparin protocol -SCDs both legs #RA -continue leflunamide #FEN/PPx -NS @ 75cc/hr -electrolytes wnl -diabetic diet -no GI ppx indicated -heparin protocol -Dani Ibrahim MD PGY1 Visit type - Emergency Visit Emergency Visit: Yes ED Registration Date: 06/01/17 Care time: The patient presented to the Emergency Department on the above date and was hospitalized for further evaluation of their emergent condition. - New Patient This patient is new to me today: Yes Date on this admission: 06/01/17 - Critical Care Critical Care patient: No
[2017-06-01] MEDS: HEPARIN - 25,000 UNIT in SODIUM CHLORIDE 495 ML IV SCH (03:15)
[2017-06-01] MEDS ORDERED: HEPARIN INFUSION - 500 ML IVPB ONE (03:39)
[2017-06-01 06:57] LABS: MCH 31.4 pg (25.7-33.7); MCHC 33.1 g/dl (32.0-36.0); MEAN PLT VOLUME 7.8 fl (7.5-11.1); PLATELET COUNT 224 K/MM3 (134-434); RDW 15.1 % (11.6-15.6)
[2017-06-01 07:17] LABS: ANION GAP 9 (8-16); BILIRUBIN,TOTAL 0.4 mg/dL (0.2-1.0); CALCIUM 8.4 mg/dL (8.5-10.1); CO2 28 mmol/L (21-32); GLUCOSE,RANDOM 149 mg/dL (74-106); MAGNESIUM 2.6 mg/dL (1.8-2.4); PHOSPHOROUS 4.2 mg/dL (2.5-4.9); SGOT/AST 22 U/L (15-37); SGPT/ALT 21 U/L (12-78); TOT PROT 6.3 g/dl (6.4-8.2)
[2017-06-01 07:18] LABS: ALK PHOS 113 U/L (45-117)
[2017-06-01 07:30] LABS: PROTHROMBIN TIME (PATIENT) 11.3 SEC (9.98-11.88)
[2017-06-01 07:33] LABS: ACTIVATED PTT 39.8 SECONDS (26.9-34.4)
[2017-06-01] MEDS: INSULIN SLIDING SCALE (NOVOLOG) 1 VIAL SQ SCH ×4 (07:44→21:35)
[2017-06-01] MEDS ORDERED: INSULIN (NOVOLOG MIX 70/30) 100 UNITS/ML MDV SQ ONE (07:46)
[2017-06-01] MEDS: INSULIN (NOVOLOG MIX 70/30) 100 UNITS/ML MDV SQ SCH ×2 (07:50→17:56)
[2017-06-01 09:11] LABS: URINE LEUK ESTERASE Negative (NEGATIVE)
[2017-06-01] MEDS ORDERED: DOCUSATE NA 100 MG/10 ML UNIT-DOSE CUPS PO SCH (10:00)
[2017-06-01] MEDS ORDERED: DOCUSATE SODIUM 100 MG CAPSULE (FP) PO SCH (10:00)
[2017-06-01] MEDS ORDERED: morphine CARPU-JECT 10 MG/1 ML DISP.SYRIN ONE (10:22)
[2017-06-01] MEDS ORDERED: ACETAMINOPHEN INJECTION 100 ML IVPB ONE (10:22)
[2017-06-01] MEDS: GABAPENTIN 300 MG CAPSULE (FP) PO SCH ×2 (10:39→21:35)
[2017-06-01] MEDS: DOCUSATE NA 100 MG/10 ML UNIT-DOSE CUPS PO SCH (10:39)
[2017-06-01] MEDS: CARVEDILOL 25 MG TABLET (FP) PO SCH ×2 (10:39→21:35)
[2017-06-01] MEDS: LISINOPRIL 5 MG TABLET (FP) PO SCH ×2 (10:39→21:35)
[2017-06-01] MEDS: LEFLUNOMIDE 10 MG TABLET PO SCH (10:39)
[2017-06-01] MEDS: SENNOSIDES 8.6MG TABLET (FP) PO SCH ×2 (10:39→21:35)
[2017-06-01] MEDS: MULTIVITAMINS (DAILY MVI) TABLET (FP) PO SCH (10:39)
--- NOTE | 2017-06-01 11:13 | CON.CARD ---
Cardiology Consult (text) - Consultation Consultation Note: cc: sob hpi: 71 f hx multiple PEs/DVTs s/p ivc filter and on coumadin, dm, hld, htn, syst chf here with intractable back pain. Pt with several weeks of severe lower back pain, was seeing her outpt surgeon with plans for possible surgery to remove/fix prior hardware in spine. Sxs progressed and pt could not move/ function at home so came to ER. No cp, sob, palps, dizzy, loc, pnd, orthopnea. LE edema stable/mild. Sees dr hewitt for cardio. pmh: per hpi psh: back, knee surgeries social: no tob fam: NC ros: per hpi; no fever, nvd, cough, nasal congestion, SPARROW, vision changes, hematuria, dysuria, gib meds: Home Medications Medication Instructions Recorded Carvedilol [Coreg] 25 mg PO BID 02/05/13 Leflunomide [Arava] 20 mg PO DAILY 02/05/13 Lisinopril [Prinivil] 5 mg PO BID 02/05/13 Gabapentin 300 mg PO BID 03/04/14 Oxycodone HCl/Acetaminophen 1 - 2 tab PO Q6H PRN 03/04/14 [Percocet 10-325 mg Tablet] Rivaroxaban [Xarelto -] 20 mg PO DAILY 12/13/15 Insulin Lispro Protamin/Lispro 22 unit SQ BID 12/15/15 [Humalog Mix 75-25 Kwikpen] Multivitamins [Multivit ([facility] 1 tab PO DAILY 03/17/16 Formulary)] Cyclobenzaprine HCl [Flexeril -] 10 mg PO HS 06/01/17 Torsemide 50 mg PO DAILY 06/01/17 pe: Vital Signs Period Temp Pulse Resp BP Sys/Marcelo Pulse Ox Last 24 Hr 98.1 F 68-95 14-18 109-150/42-96 95-99 nad, no jvd rrr s1s2 no mrg cta bl nl eff aaox3 abd nt nd pos bs no le e/c/c no jaundice diaphoresis pos dp pt Laboratory Last Values WBC 7.0 K/mm3 (4.0-10.0) 06/01/17 06:40 RBC 4.14 M/mm3 (3.60-5.2) 06/01/17 06:40 Hgb 13.0 GM/dL (10.7-15.3) 06/01/17 06:40 Hct 39.3 % (32.4-45.2) 06/01/17 06:40 MCV 95.0 fl (80-96) 06/01/17 06:40 MCH 31.4 pg (25.7-33.7) 06/01/17 06:40 MCHC 33.1 g/dl (32.0-36.0) 06/01/17 06:40 RDW 15.1 % (11.6-15.6) 06/01/17 06:40 Plt Count 224 K/MM3 (134-434) 06/01/17 06:40 MPV 7.8 fl (7.5-11.1) 06/01/17 06:40 Neutrophils % 52.8 % (42.8-82.8) 05/31/17 22:00 Lymphocytes % 26.7 % (8-40) 05/31/17 22:00 Monocytes % 16.2 % (3.8-10.2) H 05/31/17 22:00 Eosinophils % 3.4 % (0-4.5) 05/31/17 22:00 Basophils % 0.9 % (0-2.0) 05/31/17 22:00 PT with INR 11.30 SEC (9.98-11.88) 06/01/17 06:40 INR 1.00 (0.82-1.09) 06/01/17 06:40 PTT (Actin FS) 39.8 SECONDS (26.9-34.4) H D 06/01/17 06:40 Sodium 143 mmol/L (136-145) 06/01/17 06:40 Potassium 4.2 mmol/L (3.5-5.1) 06/01/17 06:40 Chloride 106 mmol/L (98-107) 06/01/17 06:40 Carbon Dioxide 28 mmol/L (21-32) 06/01/17 06:40 Anion Gap 9 (8-16) 06/01/17 06:40 BUN 30 mg/dL (7-18) H 06/01/17 06:40 Creatinine 1.0 mg/dL (0.55-1.02) 06/01/17 06:40 Creat Clearance w eGFR 54.81 (>60) 06/01/17 06:40 Random Glucose 149 mg/dL (74-106) H D 06/01/17 06:40 Calcium 8.4 mg/dL (8.5-10.1) L 06/01/17 06:40 Phosphorus 4.2 mg/dL (2.5-4.9) D 06/01/17 06:40 Magnesium 2.6 mg/dL (1.8-2.4) H 06/01/17 06:40 Total Bilirubin 0.4 mg/dL (0.2-1.0) D 06/01/17 06:40 AST 22 U/L (15-37) D 06/01/17 06:40 ALT 21 U/L (12-78) D 06/01/17 06:40 Alkaline Phosphatase 113 U/L (45-117) 06/01/17 06:40 Total Protein 6.3 g/dl (6.4-8.2) L 06/01/17 06:40 Albumin 3.0 g/dl (3.4-5.0) L 06/01/17 06:40 Urine Color Ltyellow 06/01/17 00:30 Urine Appearance Clear 06/01/17 00:30 Urine pH 5.0 (5.0-8.0) 06/01/17 00:30 Ur Specific [place] 1.010 (1.005-1.025) 06/01/17 00:30 Urine Protein Negative (NEGATIVE) 06/01/17 00:30 Urine Glucose (UA) Negative (NEGATIVE) 06/01/17 00:30 Urine Ketones Negative (NEGATIVE) 06/01/17 00:30 Urine Blood Negative (NEGATIVE) 06/01/17 00:30 Urine Nitrite Negative (NEGATIVE) 06/01/17 00:30 Urine Bilirubin Negative (NEGATIVE) 06/01/17 00:30 Urine Urobilinogen Negative mg/dL (0.2-1.0) 06/01/17 00:30 Ur Leukocyte Esterase Negative (NEGATIVE) 06/01/17 00:30 Blood Type O POSITIVE 06/01/17 06:40 Antibody Screen Negative 06/01/17 06:40 ecg 02/14/15: sr, pvc, nl intervals, no ischemic changes echo 04/2013: nl lv/rv, mild lae, mild mr/tr echo in office 05/09/2017: mild-mod lve, lvef 30-35%, global hk, nl rv size, mild dec rv fcn, mild lae, mod-sev mr mibi 05/2014: no ischemia, mildly reduced lvef cath 2005: normal cors cxr: clear lungs a/p: 71 f hx multiple PEs/DVTs s/p ivc filter and on coumadin, dm, hld, htn, sys chf, here with intractable back pain. 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: -nonisch CMP dx'd 03/22 -L/RHC 03/22 with moderately elevated wedge (25) and corresponding elevation in PAPs (50/25); NORMAL CORONARIES -severely reduced cardiac index on that RHC -stable vol status, cont home torsemide 50 po qd -cont home bb, lorna HTN: -bp controlled, cont home lorna, bb h/o VTEs (DVTs and PEs): -s/p IVC filter and maintained on indefinite AC as well, by prior treating physicians -no change to prior tx plan low back pain/spasm: -chronic pain, s/p prior spine surgery -now here with intractable pain, may need further surgery -Pt has syst chf but currently is compensated. Recent cath shows normal coronaries. No unstable cardiac issues at present. If back surgery is required may proceed at intermediate risk from cardiac pov.
[2017-06-01] MEDS: TORSEMIDE 100 MG TABLET PO SCH (12:30)
--- NOTE | 2017-06-01 15:59 | PN ---
Physical Exam: SUBJECTIVE: Patient seen and examined at bedside. Patient states that she is having 8/10 back pain which has improved since administration of her morphine. She states that she has pain and numbness in her RLE that has come and gone. This is not new pain for her. The symptoms have been worsening over the past 3 weeks. She had a CT on 05/06 showing loosening of her orthopedic hardware. Dr. Borjas is aware and is willing to do surgery. Patient denies any other complaints. OBJECTIVE: Vital Signs Period Temp Pulse Resp BP Sys/Marcelo Pulse Ox Last 24 Hr 72-95 18-18 128-150/54-96 95-99 GENERAL: The patient is awake, alert, and fully oriented, in no acute distress. LUNGS: Breath sounds equal, clear to auscultation bilaterally, no wheezes, no crackles, no accessory muscle use. HEART: Regular rate and rhythm, S1, S2 without murmur, rub or gallop. ABDOMEN: obese, nontender, nondistended, normoactive bowel sounds, no guarding, no rebound, no hepatosplenomegaly, no masses. EXTREMITIES: 1+ edema on b/l lower extremities, cannot lift R leg above bed, decreased sensation along R leg and thigh Laboratory Results - last 24 hr 06/01/17 06/01/17 06/01/17 06:40 06:40 06:40 WBC 7.0 RBC 4.14 Hgb 13.0 Hct 39.3 MCV 95.0 MCH 31.4 MCHC 33.1 RDW 15.1 Plt Count 224 MPV 7.8 PT with INR 11.30 INR 1.00 PTT (Actin FS) 39.8 H D Sodium 143 Potassium 4.2 Chloride 106 Carbon Dioxide 28 Anion Gap 9 BUN 30 H Creatinine 1.0 Creat Clearance w eGFR 54.81 Random Glucose 149 H D Calcium 8.4 L Phosphorus 4.2 D Magnesium 2.6 H Total Bilirubin 0.4 D AST 22 D ALT 21 D Alkaline Phosphatase 113 Total Protein 6.3 L Albumin 3.0 L Blood Type Antibody Screen 06/01/17 06/01/17 06:40 Unknown WBC RBC Hgb Hct MCV MCH MCHC RDW Plt Count MPV PT with INR INR PTT (Actin FS) Cancelled Sodium Potassium Chloride Carbon Dioxide Anion Gap BUN Creatinine Creat Clearance w eGFR Random Glucose Calcium Phosphorus Magnesium Total Bilirubin AST ALT Alkaline Phosphatase Total Protein Albumin Blood Type O POSITIVE Antibody Screen Negative Active Medications Generic Name Dose Route Start Last Admin Trade Name Freq PRN Reason Stop Dose Admin Acetaminophen 1,000 mg 06/01/17 01:15 06/01/17 12:38 Ofirmev Injection - IVPB 1,000 mg Q8H PRN Administration Carvedilol 25 mg 06/01/17 10:00 06/01/17 10:39 Coreg - PO 25 mg BID LISA Administration Docusate Sodium 100 mg 06/01/17 01:20 Colace - PO BID PRN CONSTIPATION Docusate Sodium 50 mg 06/01/17 10:00 06/01/17 10:39 Colace Liquid - PO 50 mg DAILY LISA Administration Gabapentin 300 mg 06/01/17 10:00 06/01/17 10:39 Neurontin - PO 300 mg BID LISA Administration Heparin Sodium (Porcine) 1,000 unit 06/01/17 01:08 Heparin - IVPUSH PRN PRN Heparin Heparin Sodium (Porcine) 5,000 unit 06/01/17 01:08 Heparin - IVPUSH PRN PRN Heparin Heparin Sodium (Porcine) 25, 500 mls @ 20 mls/hr 06/01/17 01:15 06/01/17 03:15 000 unit/ Sodium Chloride IV 20 mls/hr TITR LISA Administration Protocol 1,000 UNIT/HR Insulin Aspart 1 vial 06/01/17 07:00 06/01/17 11:37 Novolog Vial Sliding Scale - SQ Not Given ACHS LISA Protocol Insulin Aspart 22 units 06/01/17 07:00 06/01/17 07:50 Novolog Mix 70/30 Vial SQ 22 units BIDI LISA Administration Leflunomide 20 mg 06/01/17 10:00 06/01/17 10:39 Arava - PO 20 mg DAILY LISA Administration Lisinopril 5 mg 06/01/17 10:00 06/01/17 10:39 Prinivil PO 5 mg BID LISA Administration Morphine Sulfate 4 mg 06/01/17 01:02 06/01/17 10:30 Morphine Injection - IVPUSH 4 mg Q4H PRN Administration PAIN Multivitamins/Minerals/Vitamin C 1 tab 06/01/17 10:00 06/01/17 10:39 Tab-A-Vit - PO 1 tab DAILY LISA Administration Senna 1 tab 06/01/17 10:00 06/01/17 10:39 Senna - PO 1 tab BID LISA Administration Torsemide 50 mg 06/01/17 11:15 06/01/17 12:30 Demadex - PO 50 mg DAILY LISA Administration ASSESSMENT/PLAN: 71 year old female with a pmh of HTN, CHF, DM, DVT/PE on eliquis, RA, syncope, and multiple back/joint surgeries presented to the ED for 3 week hx of worsening lumbar back pain 1. Back pain - patient still in 8/10 pain but stable -controlled on 4mg morphine Q4 PRN and tylenol 1000 Q8 PRN -discussed with Dr. Borjas (orthopedics) -ordered CT lumbar spine w/o contrast, f/u results 2. Chronic CHF - not experiencing acute exacerbation, controlled -continue Torsemide 50mg PO -CXR did not reveal any acute pathology -Cardiology (Dr. Choi consulted), ok with continuing home beta blockers and acei -cardiology cleared for surgery with intermediate risk -continue torsemide 3. HTN - controlled 133/66 -continue all antihypertensives (carvedilol, lisinopril, torsemide) -continue to monitor BP 4. Diabetes Mellitus - controlled -continue novolog 70/30 - 22 units -continue sliding scale insulin -continue neurontin for neuropathy 5. History of DVT/PE - -hold eliquis -continue heparin protocol -SCDs 6. Rheumatoid Arthritis - controlled -continue leflunomide 7. FEN -No standing fluids -Electrolytes within normal limits -Diabetic/sodium controlled diet 8. Prophylaxis -heparin drip -SCDs 9. Disposition: -admitted to hospitalist care -f/u with Dr. Borjas Visit type - Emergency Visit Emergency Visit: No - New Patient This patient is new to me today: No - Critical Care Critical Care patient: No
--- NOTE | 2017-06-01 17:10 | PN ---
Teaching Attending Note Name of Resident: Po Landa ATTENDING PHYSICIAN STATEMENT I saw and evaluated the patient. I reviewed the resident's note and discussed the case with the resident. I agree with the resident's findings and plan as documented. SUBJECTIVE: Patient seen and examined. still with ongoing low back pain and RLE sciatica pain and numbness unchanged over last few weeks. No new weakness, urinary or bowel incontinence or worsening pain noted. OBJECTIVE: Vital Signs Period Temp Pulse Resp BP Sys/Marcelo Pulse Ox Last 24 Hr 98.1 F 58-95 14-18 106-150/42-96 95-99 CVS -S1S2 regular Chest - CTAB, no rales or wheezing Abdomen - soft, obese, non tender Extr - SLR positive RLE, positive pulses, further exam limited by pain Neuro AAOX3, sensation decreased RLE, LE - distal power 5/5, proximal exam limited by pain Active Medications Acetaminophen (Ofirmev Injection -) 1,000 mg IVPB Q8H PRN Last Admin: 06/01/17 12:38 Dose: 1,000 mg Carvedilol (Coreg -) 25 mg PO BID [facility] Last Admin: 06/01/17 10:39 Dose: 25 mg Docusate Sodium (Colace -) 100 mg PO BID PRN PRN Reason: CONSTIPATION Docusate Sodium (Colace Liquid -) 50 mg PO DAILY [facility] Last Admin: 06/01/17 10:39 Dose: 50 mg Gabapentin (Neurontin -) 300 mg PO BID [facility] Last Admin: 06/01/17 10:39 Dose: 300 mg Heparin Sodium (Porcine) (Heparin -) 1,000 unit IVPUSH PRN PRN PRN Reason: Heparin Heparin Sodium (Porcine) (Heparin -) 5,000 unit IVPUSH PRN PRN PRN Reason: Heparin Heparin Sodium (Porcine) 25, (000 unit/ Sodium Chloride) 500 mls @ 20 mls/hr IV TITR LISA; 1,000 UNIT/HR PRN Reason: Protocol Last Admin: 06/01/17 03:15 Dose: 20 mls/hr Insulin Aspart (Novolog Vial Sliding Scale -) 1 vial SQ ACHS LISA PRN Reason: Protocol Last Admin: 06/01/17 11:37 Dose: Not Given Insulin Aspart (Novolog Mix 70/30 Vial) 22 units SQ BIDI [facility] Last Admin: 06/01/17 07:50 Dose: 22 units Leflunomide (Arava -) 20 mg PO DAILY [facility] Last Admin: 06/01/17 10:39 Dose: 20 mg Lisinopril (Prinivil) 5 mg PO BID [facility] Last Admin: 06/01/17 10:39 Dose: 5 mg Morphine Sulfate (Morphine Injection -) 4 mg IVPUSH Q4H PRN PRN Reason: PAIN Last Admin: 06/01/17 10:30 Dose: 4 mg Multivitamins/Minerals/Vitamin C (Tab-A-Vit -) 1 tab PO DAILY [facility] Last Admin: 06/01/17 10:39 Dose: 1 tab Senna (Senna -) 1 tab PO BID [facility] Last Admin: 06/01/17 10:39 Dose: 1 tab Torsemide (Demadex -) 50 mg PO DAILY [facility] Last Admin: 06/01/17 12:30 Dose: 50 mg Laboratory Results - last 24 hr 05/31/17 05/31/17 05/31/17 22:00 22:00 22:00 WBC 7.0 D RBC 4.29 Hgb 13.6 Hct 40.6 MCV 94.6 MCH 31.6 MCHC 33.4 RDW 14.9 Plt Count 243 MPV 7.9 Neutrophils % 52.8 Lymphocytes % 26.7 Monocytes % 16.2 H Eosinophils % 3.4 Basophils % 0.9 PT with INR 10.90 INR 0.96 D PTT (Actin FS) Sodium 140 Potassium 4.6 Chloride 105 Carbon Dioxide 27 Anion Gap 8 BUN 33 H D Creatinine 1.0 D Creat Clearance w eGFR 54.81 Random Glucose 84 D Calcium 8.8 Phosphorus Magnesium Total Bilirubin 0.3 D AST 14 L ALT 16 Alkaline Phosphatase 125 H Total Protein 6.8 Albumin 3.3 L Urine Color Urine Appearance Urine pH Ur Specific [place] Urine Protein Urine Glucose (UA) Urine Ketones Urine Blood Urine Nitrite Urine Bilirubin Urine Urobilinogen Ur Leukocyte Esterase Blood Type Antibody Screen 06/01/17 06/01/17 06/01/17 00:30 06:40 06:40 WBC 7.0 RBC 4.14 Hgb 13.0 Hct 39.3 MCV 95.0 MCH 31.4 MCHC 33.1 RDW 15.1 Plt Count 224 MPV 7.8 Neutrophils % Lymphocytes % Monocytes % Eosinophils % Basophils % PT with INR 11.30 INR 1.00 PTT (Actin FS) 39.8 H D Sodium Potassium Chloride Carbon Dioxide Anion Gap BUN Creatinine Creat Clearance w eGFR Random Glucose Calcium Phosphorus Magnesium Total Bilirubin AST ALT Alkaline Phosphatase Total Protein Albumin Urine Color Ltyellow Urine Appearance Clear Urine pH 5.0 Ur Specific [place] 1.010 Urine Protein Negative Urine Glucose (UA) Negative Urine Ketones Negative Urine Blood Negative Urine Nitrite Negative Urine Bilirubin Negative Urine Urobilinogen Negative Ur Leukocyte Esterase Negative Blood Type Antibody Screen 06/01/17 06/01/17 06/01/17 06:40 06:40 Unknown WBC RBC Hgb Hct MCV MCH MCHC RDW Plt Count MPV Neutrophils % Lymphocytes % Monocytes % Eosinophils % Basophils % PT with INR INR PTT (Actin FS) Cancelled Sodium 143 Potassium 4.2 Chloride 106 Carbon Dioxide 28 Anion Gap 9 BUN 30 H Creatinine 1.0 Creat Clearance w eGFR 54.81 Random Glucose 149 H D Calcium 8.4 L Phosphorus 4.2 D Magnesium 2.6 H Total Bilirubin 0.4 D AST 22 D ALT 21 D Alkaline Phosphatase 113 Total Protein 6.3 L Albumin 3.0 L Urine Color Urine Appearance Urine pH Ur Specific [place] Urine Protein Urine Glucose (UA) Urine Ketones Urine Blood Urine Nitrite Urine Bilirubin Urine Urobilinogen Ur Leukocyte Esterase Blood Type O POSITIVE Antibody Screen Negative CT L-spine pending ASSESSMENT AND PLAN: 71 yof with acute on chronic low back pain with RLE radiculopathy -Acute on chronic low back pain with RLE radiculopathy Ortho spine consulted, follow up CT L-spine, surgical plan accordingly. Pain control with tylenol and morphine prn. Gabapentin. Bowel regimen. Neuro checks. possible surgical intervention in 24-48 hours pending imaging. -Chronic systolic Heart failure/Moderate to severe MR 2D echo noted. Cardiology input appreciated. Continue medical management with torsemide/lisinopril/coreg. No additional pre-operative testing needed per cardiology. -RA leflunomide -DVT/PE on xarelto hold xarelto pending surgical plans. Continue heparin drip. -IDDM Novolog 70/30 while taking PO . ISS, diabetic diet. -DVTPPX heparin drip dispo - pending surgical plans Plan discussed with patient in detail, all questions answered.
[2017-06-01 17:54] VITALS: BMI 38.7
[2017-06-01] MEDS: HEPARIN NA (PORCINE) 5,000 UNITS/ML 1ML VIAL IVPUSH PRN (18:11)
[2017-06-01] MEDS: HYDROmorphone HCL CARPU-JECT 1 MG/1 ML DISP.SYRIN IVPB PRN (18:39)
[2017-06-01] MEDS ORDERED: FLU VACCINE QUAD 60 MCG/0.5 ML (MDV 17-18) IM ONE (19:00)
[2017-06-01] MEDS ORDERED: INSULIN (NOVOLOG) ASPART 100 UNITS/ML 10ML VIAL ONE (21:30)
[2017-06-01] MEDS ORDERED: ZOLPIDEM TARTRATE 5 MG TABLET PO ONE (22:41)
[2017-06-02] MEDS: HEPARIN - 25,000 UNIT in SODIUM CHLORIDE 495 ML IV SCH ×2 (01:00→10:07)
[2017-06-02] MEDS: INSULIN SLIDING SCALE (NOVOLOG) 1 VIAL SQ SCH ×4 (06:48→21:46)
[2017-06-02] MEDS: INSULIN (NOVOLOG MIX 70/30) 100 UNITS/ML MDV SQ SCH ×2 (06:50→17:45)
[2017-06-02 07:58] LABS: BASOPHIL 1.1 % (0-2.0); EOSINOPHIL 3.8 % (0-4.5); MCH 31.2 pg (25.7-33.7); MCHC 32.7 g/dl (32.0-36.0); MEAN CELL VOLUME 95.6 fl (80-96); MEAN PLT VOLUME 8.3 fl (7.5-11.1); PLATELET COUNT 195 K/MM3 (134-434); RDW 14.9 % (11.6-15.6); WHITE BLOOD COUNT 7.3 K/mm3 (4.0-10.0)
[2017-06-02] MEDS: HYDROmorphone HCL CARPU-JECT 1 MG/1 ML DISP.SYRIN IVPB PRN ×4 (08:38→22:24)
[2017-06-02 08:39] LABS: CALCIUM 8.3 mg/dL (8.5-10.1)
[2017-06-02 08:45] LABS: ALBUMIN 2.7 g/dl (3.4-5.0); ALK PHOS 110 U/L (45-117); ANION GAP 10 (8-16); BILIRUBIN,TOTAL 0.3 mg/dL (0.2-1.0); CO2 28 mmol/L (21-32); GLUCOSE,RANDOM 136 mg/dL (74-106); MAGNESIUM 2.5 mg/dL (1.8-2.4); PHOSPHOROUS 4.1 mg/dL (2.5-4.9); SGOT/AST 15 U/L (15-37); SGPT/ALT 15 U/L (12-78); TOT PROT 5.5 g/dl (6.4-8.2)
[2017-06-02] MEDS ORDERED: PT OWN MED DRAWER 7, Y5N ONE (09:48)
[2017-06-02] MEDS: CARVEDILOL 25 MG TABLET (FP) PO SCH ×2 (10:05→21:44)
[2017-06-02] MEDS: SENNOSIDES 8.6MG TABLET (FP) PO SCH ×2 (10:05→21:44)
[2017-06-02] MEDS: LISINOPRIL 5 MG TABLET (FP) PO SCH ×2 (10:05→21:44)
[2017-06-02] MEDS: MULTIVITAMINS (DAILY MVI) TABLET (FP) PO SCH (10:05)
[2017-06-02] MEDS: GABAPENTIN 300 MG CAPSULE (FP) PO SCH ×2 (10:05→21:44)
[2017-06-02] MEDS: LEFLUNOMIDE 10 MG TABLET PO SCH (10:06)
[2017-06-02] MEDS: DOCUSATE NA 100 MG/10 ML UNIT-DOSE CUPS PO SCH (10:06)
[2017-06-02] MEDS: TORSEMIDE 100 MG TABLET PO SCH (10:07)
--- NOTE | 2017-06-02 10:26 | PN ---
Progress Note (short form) - Note Progress Note: s: no cp sob palps dizzy; still with significant back pain o: Vital Signs Period Temp Pulse Resp BP Sys/Marcelo Pulse Ox Last 24 Hr 97.6 F-98.0 F 58-95 18-20 106-134/54-68 95-98 no jvd rrr s1s2 no mrg cta bl nl eff aaox3 abd nt nd pos bs no le e/c/c no jaundice diaphoresis Current Medications Generic Name Dose Route Start Last Admin Trade Name Freq PRN Reason Stop Dose Admin Acetaminophen 1,000 mg 06/01/17 01:15 06/01/17 12:38 Ofirmev Injection - IVPB 1,000 mg Q8H PRN Administration Carvedilol 25 mg 06/01/17 10:00 06/02/17 10:05 Coreg - PO 25 mg BID LISA Administration Docusate Sodium 100 mg 06/01/17 01:20 Colace - PO BID PRN CONSTIPATION Docusate Sodium 50 mg 06/01/17 10:00 06/02/17 10:06 Colace Liquid - PO 50 mg DAILY LISA Administration Gabapentin 300 mg 06/01/17 10:00 06/02/17 10:05 Neurontin - PO 300 mg BID LISA Administration Heparin Sodium (Porcine) 1,000 unit 06/01/17 01:08 Heparin - IVPUSH PRN PRN Heparin Heparin Sodium (Porcine) 5,000 unit 06/01/17 01:08 06/01/17 18:11 Heparin - IVPUSH 5,000 unit PRN PRN Administration Heparin Hydromorphone HCl 0.5 mg 06/01/17 18:15 06/02/17 08:38 Dilaudid Injection - IVPB 0.5 mg Q4H PRN Administration PAIN Heparin Sodium (Porcine) 25, 500 mls @ 20 mls/hr 06/01/17 01:15 06/02/17 10:07 000 unit/ Sodium Chloride IV 17 mls/hr TITR LISA Administration Protocol 1,000 UNIT/HR Insulin Aspart 1 vial 06/01/17 07:00 06/02/17 06:48 Novolog Vial Sliding Scale - SQ Not Given ACHS LISA Protocol Insulin Aspart 22 units 06/01/17 07:00 06/02/17 06:50 Novolog Mix 70/30 Vial SQ 22 units BIDI LISA Administration Leflunomide 20 mg 06/01/17 10:00 06/02/17 10:06 Arava - PO 20 mg DAILY LISA Administration Lisinopril 5 mg 06/01/17 10:00 06/02/17 10:05 Prinivil PO 5 mg BID LISA Administration Multivitamins/Minerals/Vitamin C 1 tab 06/01/17 10:00 06/02/17 10:05 Tab-A-Vit - PO 1 tab DAILY LISA Administration Senna 1 tab 06/01/17 10:00 06/02/17 10:05 Senna - PO 1 tab BID LISA Administration Torsemide 50 mg 06/01/17 11:15 06/02/17 10:07 Demadex - PO 50 mg DAILY LISA Administration CBC, BMP 06/02/17 06:20 06/02/17 06:20 ecg 02/14/15: sr, pvc, nl intervals, no ischemic changes echo 04/2013: nl lv/rv, mild lae, mild mr/tr echo in office 05/09/2017: mild-mod lve, lvef 30-35%, global hk, nl rv size, mild dec rv fcn, mild lae, mod-sev mr echo here 06/01/17: nl lv, nl rv size, mild fernando, sev mr, mild tr, nl rvsp mibi 05/2014: no ischemia, mildly reduced lvef cath 2005: normal cors cxr: clear lungs a/p: 71 f hx multiple PEs/DVTs s/p ivc filter and on coumadin, dm, hld, htn, sys chf, here with intractable back pain. 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: -nonisch CMP dx'd 03/22 -L/RHC 03/22 with moderately elevated wedge (25) and corresponding elevation in PAPs (50/25); NORMAL CORONARIES -severely reduced cardiac index on that RHC -echo here reporting improved lvef -stable vol status, cont home torsemide 50 po qd -cont home bb, lorna HTN: -bp controlled, cont home lorna, bb h/o VTEs (DVTs and PEs): -s/p IVC filter and maintained on indefinite AC as well, by prior treating physicians -no change to prior tx plan low back pain/spasm: -chronic pain, s/p prior spine surgery -now here with intractable pain, may need further surgery -Pt has syst chf but currently is compensated. Recent cath shows normal coronaries. No unstable cardiac issues at present. If back surgery is required may proceed at intermediate risk from cardiac pov.
--- NOTE | 2017-06-02 13:36 | PN ---
Physical Exam: SUBJECTIVE: Patient seen and examined at bedside. Patient states her pain is unchanged from yesterday. Denies CP, SOB, nausea, vomiting, diarrhea, abdominal pain. OBJECTIVE: Vital Signs Period Temp Pulse Resp BP Sys/Marcelo Pulse Ox Last 24 Hr 97.6 F-98.0 F 58-74 18-20 106-134/60-68 98-98 GENERAL: The patient is awake, alert, and fully oriented, in no acute distress. LUNGS: Breath sounds equal, clear to auscultation bilaterally, no wheezes, no crackles, no accessory muscle use. HEART: Regular rate and rhythm, S1, S2 without murmur, rub or gallop. ABDOMEN: obese, nontender, nondistended, normoactive bowel sounds, no guarding, no rebound, no hepatosplenomegaly, no masses. EXTREMITIES: 1+ edema on b/l lower extremities, able to lift her R leg slightly above the bed, decreased sensation along R leg and thigh Laboratory Results - last 24 hr 06/01/17 06/01/17 06/01/17 17:13 21:34 22:30 WBC RBC Hgb Hct MCV MCH MCHC RDW Plt Count MPV Neutrophils % Lymphocytes % Monocytes % Eosinophils % Basophils % PTT (Actin FS) 163.0 H D Sodium Potassium Chloride Carbon Dioxide Anion Gap BUN Creatinine Creat Clearance w eGFR POC Glucometer 144 135 Random Glucose Calcium Phosphorus Magnesium Total Bilirubin AST ALT Alkaline Phosphatase Total Protein Albumin Stool Occult Blood 06/01/17 06/02/17 06/02/17 Unknown 06:20 06:20 WBC 7.3 RBC 3.67 Hgb 11.5 D Hct 35.0 MCV 95.6 MCH 31.2 MCHC 32.7 RDW 14.9 Plt Count 195 MPV 8.3 Neutrophils % 50.0 Lymphocytes % 28.4 Monocytes % 16.7 H Eosinophils % 3.8 Basophils % 1.1 PTT (Actin FS) Cancelled Sodium 141 Potassium 4.2 Chloride 103 Carbon Dioxide 28 Anion Gap 10 BUN 30 H Creatinine 1.0 Creat Clearance w eGFR 54.81 POC Glucometer Random Glucose 136 H Calcium 8.3 L Phosphorus 4.1 Magnesium 2.5 H Total Bilirubin 0.3 D AST 15 D ALT 15 D Alkaline Phosphatase 110 Total Protein 5.5 L Albumin 2.7 L Stool Occult Blood 06/02/17 06/02/17 06/02/17 06:25 06:46 10:10 WBC RBC Hgb Hct MCV MCH MCHC RDW Plt Count MPV Neutrophils % Lymphocytes % Monocytes % Eosinophils % Basophils % PTT (Actin FS) 55.6 H D Sodium Potassium Chloride Carbon Dioxide Anion Gap BUN Creatinine Creat Clearance w eGFR POC Glucometer 144 Random Glucose Calcium Phosphorus Magnesium Total Bilirubin AST ALT Alkaline Phosphatase Total Protein Albumin Stool Occult Blood Negative 06/02/17 12:01 WBC RBC Hgb Hct MCV MCH MCHC RDW Plt Count MPV Neutrophils % Lymphocytes % Monocytes % Eosinophils % Basophils % PTT (Actin FS) Sodium Potassium Chloride Carbon Dioxide Anion Gap BUN Creatinine Creat Clearance w eGFR POC Glucometer 140 Random Glucose Calcium Phosphorus Magnesium Total Bilirubin AST ALT Alkaline Phosphatase Total Protein Albumin Stool Occult Blood Active Medications Generic Name Dose Route Start Last Admin Trade Name Freq PRN Reason Stop Dose Admin Acetaminophen 1,000 mg 06/01/17 01:15 06/01/17 12:38 Ofirmev Injection - IVPB 1,000 mg Q8H PRN Administration Carvedilol 25 mg 06/01/17 10:00 06/02/17 10:05 Coreg - PO 25 mg BID LISA Administration Docusate Sodium 100 mg 06/01/17 01:20 Colace - PO BID PRN CONSTIPATION Docusate Sodium 50 mg 06/01/17 10:00 06/02/17 10:06 Colace Liquid - PO 50 mg DAILY LISA Administration Gabapentin 300 mg 06/01/17 10:00 06/02/17 10:05 Neurontin - PO 300 mg BID LISA Administration Heparin Sodium (Porcine) 1,000 unit 06/01/17 01:08 Heparin - IVPUSH PRN PRN Heparin Heparin Sodium (Porcine) 5,000 unit 06/01/17 01:08 06/01/17 18:11 Heparin - IVPUSH 5,000 unit PRN PRN Administration Heparin Hydromorphone HCl 0.5 mg 06/01/17 18:15 06/02/17 08:38 Dilaudid Injection - IVPB 0.5 mg Q4H PRN Administration PAIN Heparin Sodium (Porcine) 25, 500 mls @ 20 mls/hr 06/01/17 01:15 06/02/17 10:07 000 unit/ Sodium Chloride IV 17 mls/hr TITR LISA Administration Protocol 1,000 UNIT/HR Insulin Aspart 1 vial 06/01/17 07:00 06/02/17 12:03 Novolog Vial Sliding Scale - SQ Not Given ACHS [facility] Protocol Insulin Aspart 22 units 06/01/17 07:00 06/02/17 06:50 Novolog Mix 70/30 Vial SQ 22 units BIDI LISA Administration Leflunomide 20 mg 06/01/17 10:00 06/02/17 10:06 Arava - PO 20 mg DAILY LISA Administration Lisinopril 5 mg 06/01/17 10:00 06/02/17 10:05 Prinivil PO 5 mg BID LISA Administration Multivitamins/Minerals/Vitamin C 1 tab 06/01/17 10:00 06/02/17 10:05 Tab-A-Vit - PO 1 tab DAILY LISA Administration Senna 1 tab 06/01/17 10:00 06/02/17 10:05 Senna - PO 1 tab BID LISA Administration Torsemide 50 mg 06/01/17 11:15 06/02/17 10:07 Demadex - PO 50 mg DAILY LISA Administration ASSESSMENT/PLAN: 71 year old female with a pmh of HTN, CHF, DM, DVT/PE on eliquis, RA, syncope, and multiple back/joint surgeries presented to the ED for 3 week hx of worsening lumbar back pain 1. Back pain - patient still in 8/10 pain but stable -morphine switched to dilaudid 0.5 Q4 PRN -discussed with Dr. Borjas (orthopedics), follow his recommendations -Lumbar spine CT results in chart 2. Chronic CHF - not experiencing acute exacerbation, controlled -continue Torsemide 50mg PO -CXR did not reveal any acute pathology -Cardiology (Dr. Choi consulted), ok with continuing home beta blockers and acei -cardiology cleared for surgery with intermediate risk -continue torsemide 3. HTN - controlled 133/66 -continue all antihypertensives (carvedilol, lisinopril, torsemide) -continue to monitor BP 4. Diabetes Mellitus - controlled -continue novolog 70/30 - 22 units -continue sliding scale insulin -continue neurontin for neuropathy 5. History of DVT/PE - -hold eliquis -continue heparin protocol -SCDs 6. Rheumatoid Arthritis - controlled -continue leflunomide 7. FEN -No standing fluids -Electrolytes within normal limits -Diabetic/sodium controlled diet 8. Prophylaxis -heparin drip -SCDs 9. Disposition: -admitted to hospitalist care -f/u with Dr. Borjas Visit type - Emergency Visit Emergency Visit: No - New Patient This patient is new to me today: No - Critical Care Critical Care patient: No
--- NOTE | 2017-06-02 14:10 | PN ---
Teaching Attending Note Name of Resident: Po Landa ATTENDING PHYSICIAN STATEMENT I saw and evaluated the patient. I reviewed the resident's note and discussed the case with the resident. I agree with the resident's findings and plan as documented. SUBJECTIVE: patient seen and examined, Back/right leg symptoms unchanged, no new weakness/ urinary or bowel symptoms. OBJECTIVE: Vital Signs Period Temp Pulse Resp BP Sys/Marcelo Pulse Ox Last 24 Hr 97.6 F-98.0 F 58-74 18-20 106-134/60-68 98-98 Intake & Output 05/30/17 05/31/17 06/01/17 06/02/17 23:59 23:59 23:59 23:59 Intake Total 142 159 Output Total 1600 400 Balance -1458 -241 Weight 200 lb 219 lb general in no acute distress CVS -S1S2 regular Chest CTAB, no rales or wheezing Abdomen soft, NT, positive bowel sounds extr - able to raise RLE better today, otherwise unchanged exam Current Medications Generic Name Dose Route Start Last Admin Trade Name Freq PRN Reason Stop Dose Admin Acetaminophen 1,000 mg 06/01/17 01:15 06/01/17 12:38 Ofirmev Injection - IVPB 1,000 mg Q8H PRN Administration Carvedilol 25 mg 06/01/17 10:00 06/02/17 10:05 Coreg - PO 25 mg BID LISA Administration Docusate Sodium 100 mg 06/01/17 01:20 Colace - PO BID PRN CONSTIPATION Docusate Sodium 50 mg 06/01/17 10:00 06/02/17 10:06 Colace Liquid - PO 50 mg DAILY LISA Administration Gabapentin 300 mg 06/01/17 10:00 06/02/17 10:05 Neurontin - PO 300 mg BID LISA Administration Heparin Sodium (Porcine) 1,000 unit 06/01/17 01:08 Heparin - IVPUSH PRN PRN Heparin Heparin Sodium (Porcine) 5,000 unit 06/01/17 01:08 06/01/17 18:11 Heparin - IVPUSH 5,000 unit PRN PRN Administration Heparin Hydromorphone HCl 0.5 mg 06/01/17 18:15 06/02/17 13:39 Dilaudid Injection - IVPB 0.5 mg Q4H PRN Administration PAIN Heparin Sodium (Porcine) 25, 500 mls @ 20 mls/hr 06/01/17 01:15 06/02/17 10:07 000 unit/ Sodium Chloride IV 17 mls/hr TITR LISA Administration Protocol 1,000 UNIT/HR Insulin Aspart 1 vial 06/01/17 07:00 06/02/17 12:03 Novolog Vial Sliding Scale - SQ Not Given ACHS LISA Protocol Insulin Aspart 22 units 06/01/17 07:00 06/02/17 06:50 Novolog Mix 70/30 Vial SQ 22 units BIDI LISA Administration Leflunomide 20 mg 06/01/17 10:00 06/02/17 10:06 Arava - PO 20 mg DAILY LISA Administration Lisinopril 5 mg 06/01/17 10:00 06/02/17 10:05 Prinivil PO 5 mg BID LISA Administration Multivitamins/Minerals/Vitamin C 1 tab 06/01/17 10:00 06/02/17 10:05 Tab-A-Vit - PO 1 tab DAILY LISA Administration Senna 1 tab 06/01/17 10:00 06/02/17 10:05 Senna - PO 1 tab BID LISA Administration Torsemide 50 mg 06/01/17 11:15 06/02/17 10:07 Demadex - PO 50 mg DAILY LISA Administration Laboratory Results - last 24 hr 06/01/17 06/01/17 06/01/17 17:13 21:34 22:30 WBC RBC Hgb Hct MCV MCH MCHC RDW Plt Count MPV Neutrophils % Lymphocytes % Monocytes % Eosinophils % Basophils % PTT (Actin FS) 163.0 H D Sodium Potassium Chloride Carbon Dioxide Anion Gap BUN Creatinine Creat Clearance w eGFR POC Glucometer 144 135 Random Glucose Calcium Phosphorus Magnesium Total Bilirubin AST ALT Alkaline Phosphatase Total Protein Albumin Stool Occult Blood 06/01/17 06/02/17 06/02/17 Unknown 06:20 06:20 WBC 7.3 RBC 3.67 Hgb 11.5 D Hct 35.0 MCV 95.6 MCH 31.2 MCHC 32.7 RDW 14.9 Plt Count 195 MPV 8.3 Neutrophils % 50.0 Lymphocytes % 28.4 Monocytes % 16.7 H Eosinophils % 3.8 Basophils % 1.1 PTT (Actin FS) Cancelled Sodium 141 Potassium 4.2 Chloride 103 Carbon Dioxide 28 Anion Gap 10 BUN 30 H Creatinine 1.0 Creat Clearance w eGFR 54.81 POC Glucometer Random Glucose 136 H Calcium 8.3 L Phosphorus 4.1 Magnesium 2.5 H Total Bilirubin 0.3 D AST 15 D ALT 15 D Alkaline Phosphatase 110 Total Protein 5.5 L Albumin 2.7 L Stool Occult Blood 06/02/17 06/02/17 06/02/17 06:25 06:46 10:10 WBC RBC Hgb Hct MCV MCH MCHC RDW Plt Count MPV Neutrophils % Lymphocytes % Monocytes % Eosinophils % Basophils % PTT (Actin FS) 55.6 H D Sodium Potassium Chloride Carbon Dioxide Anion Gap BUN Creatinine Creat Clearance w eGFR POC Glucometer 144 Random Glucose Calcium Phosphorus Magnesium Total Bilirubin AST ALT Alkaline Phosphatase Total Protein Albumin Stool Occult Blood Negative 06/02/17 12:01 WBC RBC Hgb Hct MCV MCH MCHC RDW Plt Count MPV Neutrophils % Lymphocytes % Monocytes % Eosinophils % Basophils % PTT (Actin FS) Sodium Potassium Chloride Carbon Dioxide Anion Gap BUN Creatinine Creat Clearance w eGFR POC Glucometer 140 Random Glucose Calcium Phosphorus Magnesium Total Bilirubin AST ALT Alkaline Phosphatase Total Protein Albumin Stool Occult Blood CT L spine and 2D echo results reviewed ASSESSMENT AND PLAN: -Acute on chronic intractable back pain -Chronic systolic HF, not in exacerbation -RA -HTN Plan: CT L spine results reivewed, discuss with Dr. Borjas about further surgical plans. pain control with dilaudid/tylenol/gabapentin. Neuro checks, bowel regimen. Cardiology input noted, 2D echo reviewed. Continue torsemide/ACEi/coreg, Lana- operative volume status monitoring. Leflunomide. DVTPPX with heparin. ISS. Novolog 70/30 when eating. Dispo planning per ortho spine recs. Plan discussed with patient in detail, all questions answered.
[2017-06-02] MEDS ORDERED: ZOLPIDEM TARTRATE 5 MG TABLET PO ONE (23:24)
[2017-06-03] MEDS: HYDROmorphone HCL CARPU-JECT 1 MG/1 ML DISP.SYRIN IVPB PRN ×4 (02:33→15:12)
[2017-06-03] MEDS: HEPARIN - 25,000 UNIT in SODIUM CHLORIDE 495 ML IV SCH ×2 (03:51→12:37)
[2017-06-03] MEDS: INSULIN (NOVOLOG MIX 70/30) 100 UNITS/ML MDV SQ SCH ×2 (06:38→17:16)
[2017-06-03] MEDS: INSULIN SLIDING SCALE (NOVOLOG) 1 VIAL SQ SCH ×3 (06:47→17:16)
[2017-06-03 07:43] LABS: MCHC 33.8 g/dl (32.0-36.0); MEAN CELL VOLUME 94.7 fl (80-96); MEAN PLT VOLUME 8.9 fl (7.5-11.1); PLATELET COUNT 223 K/MM3 (134-434); WHITE BLOOD COUNT 6.3 K/mm3 (4.0-10.0)
[2017-06-03] MEDS: MULTIVITAMINS (DAILY MVI) TABLET (FP) PO SCH (09:50)
[2017-06-03] MEDS: LISINOPRIL 5 MG TABLET (FP) PO SCH (09:50)
[2017-06-03] MEDS: GABAPENTIN 300 MG CAPSULE (FP) PO SCH (09:50)
[2017-06-03] MEDS: SENNOSIDES 8.6MG TABLET (FP) PO SCH ×2 (09:50→10:03)
[2017-06-03] MEDS: LEFLUNOMIDE 10 MG TABLET PO SCH (09:51)
[2017-06-03] MEDS: CARVEDILOL 25 MG TABLET (FP) PO SCH (09:51)
[2017-06-03] MEDS: DOCUSATE NA 100 MG/10 ML UNIT-DOSE CUPS PO SCH (09:51)
[2017-06-03] MEDS: TORSEMIDE 100 MG TABLET PO SCH (09:53)
[2017-06-03] MEDS: HEPARIN NA (PORCINE) 5,000 UNITS/ML 1ML VIAL IVPUSH PRN (10:02)
--- NOTE | 2017-06-03 11:07 | PN ---
Progress Note (short form) - Note Progress Note: s: no cp sob palps dizzy; still with significant back pain but better controlled now o: Vital Signs Period Temp Pulse Resp BP Sys/Marcelo Pulse Ox Last 24 Hr 97.7 F-98.0 F 66-80 20-20 120-136/56-75 96 no jvd rrr s1s2 no mrg cta bl nl eff aaox3 abd nt nd pos bs no le e/c/c no jaundice diaphoresis Current Medications Generic Name Dose Route Start Last Admin Trade Name Freq PRN Reason Stop Dose Admin Acetaminophen 1,000 mg 06/01/17 01:15 06/01/17 12:38 Ofirmev Injection - IVPB 1,000 mg Q8H PRN Administration Carvedilol 25 mg 06/01/17 10:00 06/03/17 09:51 Coreg - PO 25 mg BID LISA Administration Docusate Sodium 100 mg 06/01/17 01:20 Colace - PO BID PRN CONSTIPATION Docusate Sodium 50 mg 06/01/17 10:00 06/03/17 09:51 Colace Liquid - PO Not Given DAILY LISA Gabapentin 300 mg 06/01/17 10:00 06/03/17 09:50 Neurontin - PO 300 mg BID LISA Administration Heparin Sodium (Porcine) 1,000 unit 06/01/17 01:08 Heparin - IVPUSH PRN PRN Heparin Heparin Sodium (Porcine) 5,000 unit 06/01/17 01:08 06/03/17 10:02 Heparin - IVPUSH 5,000 unit PRN PRN Administration Heparin Hydromorphone HCl 0.5 mg 06/01/17 18:15 06/03/17 10:51 Dilaudid Injection - IVPB 0.5 mg Q4H PRN Administration PAIN Heparin Sodium (Porcine) 25, 500 mls @ 20 mls/hr 06/01/17 01:15 06/03/17 10:04 000 unit/ Sodium Chloride IV 1,000 unit/hr TITR LISA Titration Protocol 1,000 UNIT/HR Insulin Aspart 1 vial 06/01/17 07:00 06/03/17 06:47 Novolog Vial Sliding Scale - SQ Not Given ACHS LISA Protocol Insulin Aspart 22 units 06/01/17 07:00 06/03/17 06:38 Novolog Mix 70/30 Vial SQ 22 units BIDI LISA Administration Leflunomide 20 mg 06/01/17 10:00 06/03/17 09:51 Arava - PO 20 mg DAILY LISA Administration Lisinopril 5 mg 06/01/17 10:00 06/03/17 09:50 Prinivil PO 5 mg BID LISA Administration Multivitamins/Minerals/Vitamin C 1 tab 06/01/17 10:00 06/03/17 09:50 Tab-A-Vit - PO 1 tab DAILY LISA Administration Senna 1 tab 06/01/17 10:00 06/03/17 10:03 Senna - PO Not Given BID LISA Torsemide 50 mg 06/01/17 11:15 06/03/17 09:53 Demadex - PO 50 mg DAILY LISA Administration CBC, BMP 06/03/17 06:00 06/02/17 06:20 ecg 02/14/15: sr, pvc, nl intervals, no ischemic changes echo 04/2013: nl lv/rv, mild lae, mild mr/tr echo in office 05/09/2017: mild-mod lve, lvef 30-35%, global hk, nl rv size, mild dec rv fcn, mild lae, mod-sev mr echo here 06/01/17: nl lv, nl rv size, mild fernando, sev mr, mild tr, nl rvsp mibi 05/2014: no ischemia, mildly reduced lvef cath 2005: normal cors cxr: clear lungs a/p: 71 f hx multiple PEs/DVTs s/p ivc filter and on coumadin, dm, hld, htn, sys chf, here with intractable back pain. 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: -nonisch CMP dx'd 03/22 -L/RHC 03/22 with moderately elevated wedge (25) and corresponding elevation in PAPs (50/25); NORMAL CORONARIES -severely reduced cardiac index on that RHC -echo here reporting improved lvef -stable vol status, cont home torsemide 50 po qd -cont home bb, lorna HTN: -bp controlled, cont home lorna, bb h/o VTEs (DVTs and PEs): -s/p IVC filter and maintained on indefinite AC as well, by prior treating physicians -no change to prior tx plan, on hep gtt now in prep for surgery next week low back pain/spasm: -chronic pain, s/p prior spine surgery -now here with intractable pain, plans for repeat back surgery tuesday at [facility]. -Pt has syst chf but currently is compensated. Recent cath shows normal coronaries. No unstable cardiac issues at present. If back surgery is required may proceed at intermediate risk from cardiac pov.
--- NOTE | 2017-06-03 14:52 | DS ---
Physical Exam: SUBJECTIVE: Patient seen and examined at bedside. Patient's pain is well controlled. OBJECTIVE: Vital Signs Period Temp Pulse Resp BP Sys/Marcelo Pulse Ox Last 24 Hr 97.7 F-98.0 F 66-80 20-20 120-136/56-75 96 PHYSICAL EXAM GENERAL: The patient is awake, alert, and fully oriented, in no acute distress. LUNGS: Breath sounds equal, clear to auscultation bilaterally, no wheezes, no crackles, no accessory muscle use. HEART: Regular rate and rhythm, S1, S2 without murmur, rub or gallop. ABDOMEN: obese, nontender, nondistended, normoactive bowel sounds, no guarding, no rebound, no hepatosplenomegaly, no masses. EXTREMITIES: 1+ edema on b/l lower extremities, cannot lift R leg above bed, decreased sensation along R leg and thigh LABS Laboratory Results - last 24 hr 06/02/17 06/02/17 06/03/17 16:33 21:42 05:52 WBC RBC Hgb Hct MCV MCH MCHC RDW Plt Count MPV PTT (Actin FS) POC Glucometer 156 187 130 06/03/17 06/03/17 06/03/17 06:00 06:00 11:22 WBC 6.3 RBC 3.67 Hgb 11.8 Hct 34.8 MCV 94.7 MCH 32.0 MCHC 33.8 RDW 15.0 Plt Count 223 MPV 8.9 PTT (Actin FS) 38.5 H D POC Glucometer 151 HOSPITAL COURSE: Date of Admission:06/01/17 71 year old female with a past medical history of HTN, CHF, DM, DVT/PE on eliquis, RA, syncope, and multiple back/joint surgeries presented to the ED for 3 week history of worsening lumbar back pain. The patient was admitted to the medical service for pain management and surgical management by Dr. Sreekanth Borjas of [facility]. Patient's pain was controlled on morphine. A lumbar spine CT was performed and results were discussed with Dr. Borjas. Dr. Borjas voiced that he would like patient to be transferred to [facility] for surgery on her spine. Patient was transferred to [facility] for surgical management under Dr. Sreekanth Borjas. Date of Discharge: 06/03/17 Minutes to complete discharge: 45 Discharge Summary Reason For Visit: INTRACTABLE BACK PAIN Current Active Problems Intractable back pain (Acute) Condition: Stable - Instructions Diet, Activity, Other Instructions: You were admitted to [facility] for lumbar back pain Recommendations: Do not lift any heavy objects Follow up with Dr. Sreekanth Borjas at [facility], [facility] [address], [address] [place] [address] If you experience any fevers above 101, chills, nausea, vomiting, fevers, chills , please return to the emergency room. Home medications: Medication Instructions Recorded Carvedilol [Coreg] 25 mg PO BID 02/05/13 Leflunomide [Arava] 20 mg PO DAILY 02/05/13 Lisinopril [Prinivil] 5 mg PO BID 02/05/13 Gabapentin 300 mg PO BID 03/04/14 Oxycodone HCl/Acetaminophen 1 - 2 tab PO Q6H PRN 03/04/14 [Percocet 10-325 mg Tablet] Rivaroxaban [Xarelto -] 20 mg PO DAILY 12/13/15 Insulin Lispro Protamin/Lispro 22 unit SQ BID 12/15/15 [Humalog Mix 75-25 Kwikpen] Multivitamins [Multivit ([facility] 1 tab PO DAILY 03/17/16 Formulary)] Referrals: Beryl Pandey MD [Primary Care Provider] - Sreekanth Borjas MD [Non Staff, Medical] - Disposition: TRANSFER ACUTE CARE/OTHER HOSP - Home Medications Comprehensive Discharge Medication List: Ambulatory Orders Gabapentin 300 mg PO BID 03/04/14 Oxycodone HCl/Acetaminophen [Percocet 10-325 mg Tablet] 1 - 2 tab PO Q6H PRN Insulin Lispro Protamin/Lispro [Humalog Mix 75-25 Kwikpen] 22 unit SQ BID Multivitamins [Multivit ([facility] Formulary)] 1 tab PO DAILY 03/17/16 Cyclobenzaprine HCl [Flexeril -] 10 mg PO HS 06/01/17 Zolpidem Tartrate [Ambien] 10 mg PO HS PRN 06/01/17 Docusate Sodium [Colace -] 100 mg PO BID PRN #0 cap 10/27/17 Hydromorphone Injection [Dilaudid Injection -] 0.5 mg IVPB Q4H PRN #0 [id number].syr MDD 4 06/03/17 This patient is new to me today: No Emergency Visit: No Critical Care patient: No - Discharge Referral Referred to [facility] No
[2017-06-03 14:55] VITALS: BP 148/75; PULSE 76; TEMP 98.2
--- NOTE | 2017-06-03 15:23 | PN ---
Teaching Attending Note Name of Resident: Po Landa ATTENDING PHYSICIAN STATEMENT I saw and evaluated the patient. I reviewed the resident's note and discussed the case with the resident. I agree with the resident's findings and plan as documented. SUBJECTIVE: Patient seen and examined. Back symptoms under control. Still with leg numbness/ pain. Medications help. OBJECTIVE: Vital Signs Period Temp Pulse Resp BP Sys/Marcelo Pulse Ox Last 24 Hr 97.7 F-98.2 F 66-80 20-20 120-148/56-75 96-97 General: lying in bed in no acute distress CVS S1S2 regular Chest no rales or wheezing Extremities- unchanged SLR from yesterday Current Medications Acetaminophen (Ofirmev Injection -) 1,000 mg IVPB Q8H PRN Last Admin: 06/01/17 12:38 Dose: 1,000 mg Carvedilol (Coreg -) 25 mg PO BID LISA Last Admin: 06/03/17 09:51 Dose: 25 mg Docusate Sodium (Colace -) 100 mg PO BID PRN PRN Reason: CONSTIPATION Docusate Sodium (Colace Liquid -) 50 mg PO DAILY [facility] Last Admin: 06/03/17 09:51 Dose: Not Given Gabapentin (Neurontin -) 300 mg PO BID LISA Last Admin: 06/03/17 09:50 Dose: 300 mg Heparin Sodium (Porcine) (Heparin -) 1,000 unit IVPUSH PRN PRN PRN Reason: Heparin Heparin Sodium (Porcine) (Heparin -) 5,000 unit IVPUSH PRN PRN PRN Reason: Heparin Last Admin: 06/03/17 10:02 Dose: 5,000 unit Hydromorphone HCl (Dilaudid Injection -) 0.5 mg IVPB Q4H PRN PRN Reason: PAIN Last Admin: 06/03/17 15:12 Dose: 0.5 mg Heparin Sodium (Porcine) 25, (000 unit/ Sodium Chloride) 500 mls @ 20 mls/hr IV TITR LISA; 1,000 UNIT/HR PRN Reason: Protocol Last Admin: 06/03/17 12:37 Dose: 20 mls/hr Insulin Aspart (Novolog Vial Sliding Scale -) 1 vial SQ ACHS LISA PRN Reason: Protocol Last Admin: 06/03/17 11:23 Dose: Not Given Insulin Aspart (Novolog Mix 70/30 Vial) 22 units SQ BIDI LISA Last Admin: 06/03/17 06:38 Dose: 22 units Leflunomide (Arava -) 20 mg PO DAILY [facility] Last Admin: 06/03/17 09:51 Dose: 20 mg Lisinopril (Prinivil) 5 mg PO BID [facility] Last Admin: 06/03/17 09:50 Dose: 5 mg Multivitamins/Minerals/Vitamin C (Tab-A-Vit -) 1 tab PO DAILY [facility] Last Admin: 06/03/17 09:50 Dose: 1 tab Senna (Senna -) 1 tab PO BID [facility] Last Admin: 06/03/17 10:03 Dose: Not Given Torsemide (Demadex -) 50 mg PO DAILY [facility] Last Admin: 06/03/17 09:53 Dose: 50 mg Laboratory Results - last 24 hr 06/02/17 06/02/17 06/03/17 16:33 21:42 05:52 WBC RBC Hgb Hct MCV MCH MCHC RDW Plt Count MPV PTT (Actin FS) POC Glucometer 156 187 130 06/03/17 06/03/17 06/03/17 06:00 06:00 11:22 WBC 6.3 RBC 3.67 Hgb 11.8 Hct 34.8 MCV 94.7 MCH 32.0 MCHC 33.8 RDW 15.0 Plt Count 223 MPV 8.9 PTT (Actin FS) 38.5 H D POC Glucometer 151 ASSESSMENT AND PLAN: -Acute on chronic intractable back pain -Chronic systolic HF, not in exacerbation -RA -HTN Plan: CT L spine results reivewed, discuss with Dr. Borjas about further surgical plans. pain control with dilaudid/tylenol/gabapentin. Neuro checks, bowel regimen. Cardiology input noted, 2D echo reviewed. Continue torsemide/ACEi/coreg, Lana- operative volume status monitoring. Leflunomide. DVTPPX with heparin. ISS. Novolog 70/30 when eating. Dispo planning awaiting bed at [facility]. Plan discussed with patient in detail, all questions answered.
== END 2017-06-03 18:36 | disposition short-term general hospital (02) | DRG 560 ==
LOC: JER 19:57 → JERBED 06-01 01:05 → J6S 06-01 16:57
PROVIDERS: ADMIT Internal Medicine; ATTEND Hospitalist
DX: T84.226A Displacement of internal fixation device of vertebrae, initial encounter (principal); I50.22 Chronic systolic (congestive) heart failure; I42.8 Other cardiomyopathies; M54.41 Lumbago with sciatica, right side; I11.0 Hypertensive heart disease with heart failure; E11.9 Type 2 diabetes mellitus without complications; Z86.718 Personal history of other venous thrombosis and embolism; G47.33 Obstructive sleep apnea (adult) (pediatric); M54.10 Radiculopathy, site unspecified; I34.0 Nonrheumatic mitral (valve) insufficiency; M06.80 Other specified rheumatoid arthritis, unspecified site; E66.8 Other obesity; Z68.38 Body mass index [BMI] 38.0-38.9, adult; E78.00 Pure hypercholesterolemia, unspecified; Z98.84 Bariatric surgery status; Z96.651 Presence of right artificial knee joint; Z96.641 Presence of right artificial hip joint; Z86.711 Personal history of pulmonary embolism; Z88.1 Allergy status to other antibiotic agents; Y83.8 Other surgical procedures as the cause of abnormal reaction of the patient, or of later complication, without mention of misadventure at the time of the procedure; Y92.89 Other specified places as the place of occurrence of the external cause
CPT/HCPCS: 36415; 71010-TC; 72131-TC; 80053; 81003; 82272; 83735; 84100; 85025; 85027; 85610; 85730; 86850; 86900; 86901; 90688; 93306-TC; 99284-25; G0008; J1644

== ENCOUNTER 2018-06-16 18:36 | Inpatient (IN) | payer OTHER ==
--- NOTE | 2018-06-16 19:05 | PDOC ---
Rapid Medical Evaluation Time Seen by Provider: 06/16/18 18:58 Medical Evaluation: Allergies Allergy/AdvReac Type Severity Reaction Status Date / Time levofloxacin [From Levaquin] Allergy Severe ANAPHYLAXIS Verified 06/16/18 18:59 methotrexate Allergy Severe Swelling Verified 06/16/18 18:59 Penicillins Allergy Mild Rash Verified 06/16/18 18:59 bumetanide [From Bumex] Allergy Rash Verified 06/16/18 18:59 piperacillin sodium AdvReac Mild Itching Verified 06/16/18 18:59 [From Zosyn] tazobactam sodium AdvReac Mild Itching Verified 06/16/18 18:59 [From Zosyn] 11 18:59 Pt presents for back pain. Pt states she is here to be admitted as she is having surgery with Dr. Borjas on Tuesday. Pt states she has numbness and tingling down the R leg. Pt with hx of multiple back surgeries. Denies saddle anesthesia, bladder/bowel incontinence Exam: Pt appears uncomfortable. only ambulatory with walker Orders: labs, IV Pt to proceed to the ED for further evaluation Discharge Disposition - Diagnosis Back pain - Referrals - Patient Instructions - Post Discharge Activity
[2018-06-16 19:53] LABS: EOS % 2.1 % (0-4.5); HEMATOCRIT 38.1 % (32.4-45.2); HEMOGLOBIN 12.5 GM/dL (10.7-15.3); LYMPH % 22.1 % (8-40); MCH 30.1 pg (25.7-33.7); MCHC 32.9 g/dl (32.0-36.0); MEAN CELL VOLUME 91.3 fl (80-96); MEAN PLT VOLUME 7.9 fl (7.5-11.1); MONO % 10.1 % (3.8-10.2); NEUT % 64.7 % (42.8-82.8); PLATELET COUNT 300 K/MM3 (134-434); RBC 4.17 M/mm3 (3.60-5.2); RDW 14.4 % (11.6-15.6); WHITE BLOOD COUNT 8.7 K/mm3 (4.0-10.0)
[2018-06-16 20:19] LABS: ALBUMIN 2.9 g/dl (3.4-5.0); ALK PHOS 167 U/L (45-117); ANION GAP 10 MMOL/L (8-16); BILIRUBIN,TOTAL 0.2 mg/dL (0.2-1); BLOOD UREA NITROGEN 31 mg/dL (7-18); CALCIUM 8.7 mg/dL (8.5-10.1); CHLORIDE 98 mmol/L (98-107); CO2 28 mmol/L (22-28); CREATININE 2.2 mg/dL (0.55-1.3); GLUCOSE,RANDOM 258 mg/dL (74-106); POTASSIUM 5.1 mmol/L (3.5-5.1); SGOT/AST 14 U/L (15-37); SGPT/ALT 21 U/L (13-61); SODIUM 136 mmol/L (136-145); TOT PROT 6.7 g/dl (6.4-8.2)
--- NOTE | 2018-06-16 20:28 | PDOC ---
History of Present Illness - General Chief Complaint: Back Pain Stated Complaint: PCP ADMIT Time Seen by Provider: 06/16/18 18:58 History Source: Patient Exam Limitations: No Limitations - History of Present Illness Initial Comments: 06/16/18 20:16 This is a 72 year old female with a history of hypertension, diabetes, nonischemic cardiomyopathy, chronic systolic heart failure, DVT on Xarelto, rheumatoid arthritis, multiple spine surgeries, bilateral hip surgeries, who was sent over by surgeon for admission due to progressive neurological weakness , and medical clearance for surgery on Tuesday. She has increased weakness, especially in her left lower extremity. She is unable to sit up straight. She ambulates minimally with walker, mostly uses wheelchair. Patient denies LOC, SPARROW, blurry vision, chest pain, sob, loss of bowel or bladder. She does admit to numbness and tingling over bilateral extremities, which is chronic for her. Dr. Safia Mccullough is her surgeon who will perform surgery on Tuesday, once medically cleared. 06/16/18 20:36 Past History - Past Medical History Allergies/Adverse Reactions: Allergies Allergy/AdvReac Type Severity Reaction Status Date / Time levofloxacin [From Levaquin] Allergy Severe ANAPHYLAXIS Verified 06/16/18 18:59 methotrexate Allergy Severe Swelling Verified 06/16/18 18:59 Penicillins Allergy Mild Rash Verified 06/16/18 18:59 bumetanide [From Bumex] Allergy Rash Verified 06/16/18 18:59 piperacillin sodium AdvReac Mild Itching Verified 06/16/18 18:59 [From Zosyn] tazobactam sodium AdvReac Mild Itching Verified 06/16/18 18:59 [From Zosyn] Home Medications: Ambulatory Orders Gabapentin 300 mg PO BID 03/04/14 Oxycodone HCl/Acetaminophen [Percocet 10-325 mg Tablet] 1 - 2 tab PO Q6H PRN Insulin Lispro Protamin/Lispro [Humalog Mix 75-25 Kwikpen] 22 unit SQ BID Multivitamins [Multivit ([facility] Formulary)] 1 tab PO DAILY 03/17/16 Cyclobenzaprine HCl [Flexeril -] 10 mg PO HS 06/01/17 Zolpidem Tartrate [Ambien] 10 mg PO HS PRN 06/01/17 Docusate Sodium [Colace -] 100 mg PO BID PRN #0 cap 06/03/17 HYDROmorphone INJECTION [Dilaudid Injection -] 0.5 mg IVPB Q4H PRN #0 dis.syr MDD 4 06/03/17 Anemia: No Asthma: No Cancer: No Cardiac Disorders: Yes CVA: No COPD: No CHF: No DVT: Yes Dementia: No Diabetes: Yes GI Disorders: No Disorders: No HTN: Yes Hypercholesterolemia: Yes Liver Disease: No Seizures: No Thyroid Disease: No - Surgical History Abdominal Surgery: Yes (GASTRIC BANDING) Appendectomy: No Cardiac Surgery: No Cholecystectomy: Yes Lung Surgery: No Neurologic Surgery: Yes (4 BACK FUSIONS) Orthopedic Surgery: Yes (TKR RT 2004; SHOULDER SX RT, L. KNEE SURGERY-2012,, Rt hip Sx 10/2013 RTHR) - Immunization History Immunization Up to Date: Yes - Suicide/Smoking/Psychosocial Hx Smoking Status: No Smoking History: Never smoked Have you smoked in the past 12 months: No Number of Cigarettes Smoked Daily: 0 If you are a former smoker, when did you quit?: 40 YRS Information on smoking cessation initiated: No Hx Alcohol Use: No Drug/Substance Use Hx: No Substance Use Type: None Hx Substance Use Treatment: No Review of Systems - Review of Systems Able to Perform ROS?: Yes Is the patient limited Turkmen proficient: Yes Constitutional: Yes: Night Sweats. No: Chills, Diaphoresis, Fever, Weakness HEENTM: No: Eye Pain, Blurred Vision Respiratory: No: Cough, Orthopnea, Shortness of Breath, SOB with Exertion, Wheezing, Productive cough, Hemoptysis Cardiac (ROS): No: Chest Pain, Edema, Irregular Heart Rate, Lightheadedness, Palpitations ABD/GI: No: Abdominal Distended, Abd. Pain w/ defecation, Blood Streaked Bowels , Diarrhea, Difficulty Swallowing, Nausea, Vomiting : No: Dysuria, Discharge Musculoskeletal: Yes: Back Pain, Joint Pain, Muscle Pain, Muscle Weakness, Joint Stiffness Neurological: No: Headache, Numbness, Paresthesia, Seizure, Tingling Psychiatric: Yes: Stressors *Physical Exam - Vital Signs Last Vital Signs Temp Pulse Resp BP Pulse Ox 98.1 F 84 16 103/54 L 99 06/16/18 18:59 06/16/18 18:59 06/16/18 18:59 06/16/18 18:59 06/16/18 18:59 - Physical Exam General Appearance: Yes: Appropriately Dressed Respiratory/Chest: positive: Lungs Clear, Normal Breath Sounds. negative: Respiratory Distress Cardiovascular: positive: Regular Rhythm, Regular Rate, S1, S2 Gastrointestinal/Abdominal: positive: Normal Bowel Sounds. negative: Tender, Flat, Soft Musculoskeletal: positive: Decreased Range of Motion, Vertebral Tenderness ( lumbar) Extremity: positive: Normal Capillary Refill. negative: Pedal Edema, Swelling, Calf Tenderness Neurologic: positive: nurse college II-XII NML intact, Fully Oriented, Normal Mood/Affect , Motor Strength 5/5, Numbness (RRE; unable to lift >15 degress off bed) ED Treatment Course - LABORATORY CBC & Chemistry Diagram: 06/16/18 19:40 06/16/18 19:40 - ADDITIONAL ORDERS Additional order review: 06/16/18 19:40 RBC 4.17 MCV 91.3 MCHC 32.9 RDW 14.4 D MPV 7.9 Neutrophils % 64.7 D Lymphocytes % 22.1 D Monocytes % 10.1 Eosinophils % 2.1 Basophils % 1.0 Medical Decision Making - Medical Decision Making 06/16/18 20:29 This is a 72 year old female with HTN, CHF, DM, extensive spine surgery history , here with progressive neurological weakness and medical clearance for surgery on Tuesday. Removal of spinal hardware and revision decompression on lumbar sacral spine. #Progressive neurological weakness -will admit; surgery on on -medical clearance -cbc, cmp, ua, cxr, ecg -pain control -fall precautions -admit to hospitalist 06/16/18 20:47 *DC/Admit/Observation/Transfer Diagnosis at time of Disposition: Progressive neurological deficit Back pain Qualifiers: Back pain location: low back pain Chronicity: acute - Discharge Dispostion Condition at time of disposition: Fair Decision to Admit order: Yes - Referrals - Patient Instructions - Post Discharge Activity
--- NOTE | 2018-06-16 20:37 | PDOC ---
Attending Attestation - Resident Resident Name: Meli Stephens - ED Attending Attestation I have performed the following: I have examined & evaluated the patient, The case was reviewed & discussed with the resident, I agree w/resident's findings & plan, Exceptions are as noted - HPI HPI: 06/16/18 20:36 72 F with h/o hypertension, diabetes, nonischemic cardiomyopathy, chronic systolic heart failure, DVT on Xarelto, rheumatoid arthritis, right hip prosthetic, spinal surgery, sent in by Dr. Borjas for pre-op clearance for surgery. Pt with no acute complaints. - Physicial Exam PE: 06/16/18 20:39 "GENERAL: Awake, alert, and fully oriented, in no acute distress. HEAD: No signs of trauma EYES: PERRLA, EOMI, sclera anicteric, conjunctiva clear ENT: Auricles normal inspection, hearing grossly normal, nares patent, oropharynx clear without exudates. Moist mucosa NECK: Nontender, no stepoffs, Normal ROM, supple, no lymphadenopathy, JVD, or masses LUNGS: Breath sounds equal, clear to auscultation bilaterally. No wheezes, and no crackles HEART: Regular rate and rhythm, normal S1 and S2, no murmurs, rubs or gallops ABDOMEN: Soft, nontender, normoactive bowel sounds. No guarding, no rebound. No masses EXTREMITIES: Normal range of motion, no edema. No clubbing or cyanosis. No cords, erythema, or tenderness NEUROLOGICAL: Cranial nerves II through XII intact. 5/5 strength and sensation in all extremities, Normal speech, normal gait, normal cerebellar function SKIN: Warm, Dry, normal turgor, no rashes or lesions noted. - Medical Decision Making 06/16/18 20:39 72 F with h/o spinal surgery, here for admission for surgery with Dr. Borjas. - Pre-op labs - EKG - CXR - admit
[2018-06-16 21:09] LABS: PROTHROMBIN TIME (PATIENT) 11.8 SEC (9.7-13.0)
--- NOTE | 2018-06-16 21:54 | PN ---
Teaching Attending Note Name of Resident: Sreekanth Ruelas ATTENDING PHYSICIAN STATEMENT I saw and evaluated the patient. I reviewed the resident's note and discussed the case with the resident. I agree with the resident's findings and plan as documented. SUBJECTIVE: Patient is a 72 year old woman with a history of hypertension, NIDDM, nonischemic cardiomyopathy, systolic CHF, DVT on Xarelto, rheumatoid arthritis and multiple spine surgeries/bilateral hip surgeries, who was sent over by surgeon for admission due to progressive neurological weakness, and medical clearance for surgery on Tuesday (Removal of spinal hardware and revision decompression on lumbar sacral spine). She has increased weakness, especially in her left lower extremity. She is unable to sit up straight. She ambulates minimally with walker, mostly uses wheelchair. She has chronic numbness and tingling over bilateral lower extremities. Patient denies blurry vision, chest pain, SOB or changes in bladder or bowel function. OBJECTIVE: Alert Vital Signs Period Temp Pulse Resp BP Sys/Marcelo Pulse Ox Last 24 Hr 98.1 F 84 16 103/54 99 HEENT: No Jaundice, eye redness or discharge, PERRLA, EOMI. Normocephalic, atraumatic. External ears are normal and hearing is grossly intact. No nasal discharge. Neck: Supple, nontender. No palpable adenopathy or thyromegaly. No JVD Chest: Good effort. Clear to auscultation and percussion. Heart: Regular. No S3, rub or murmur Abdomen: Not distended, soft, nontender and no HSM. No rebound or guarding. Normoactive bowel sounds. Ext: Peripheral pulses intact. No leg edema. Skin: Warm and dry. No petechiae, rash or ecchymosis. Neuro: Alert. Oriented x3. CN 2-12 grossly intact. Sensation grossly intact in all four extremities; Reduced power and strength in lower extremities (R >L). Home Medications Medication Instructions Recorded Gabapentin 300 mg PO BID 03/04/14 Oxycodone HCl/Acetaminophen 1 - 2 tab PO Q6H PRN 03/04/14 [Percocet 10-325 mg Tablet] Insulin Lispro Protamin/Lispro 22 unit SQ BID 12/15/15 [Humalog Mix 75-25 Kwikpen] Multivitamins [Multivit ([facility] 1 tab PO DAILY 03/17/16 Formulary)] Cyclobenzaprine HCl [Flexeril -] 10 mg PO DAILY 06/01/17 Zolpidem Tartrate [Ambien] 10 mg PO HS PRN 06/01/17 Docusate Sodium [Colace -] 100 mg PO BID PRN #0 cap 06/03/17 Abnormal Lab Results 06/16/18 19:40 BUN 31 H Creatinine 2.2 H Random Glucose 258 H AST 14 L Alkaline Phosphatase 167 H Albumin 2.9 L ASSESSMENT AND PLAN: 1. Weakness/Gait Abnormality/Preop risk assessment - Patient stopped her xarelto 2 days ago. Had an ECHO done recently. Will get EKG, CXR and consult cardiology for preop assessment. 2. DM - Strive for euglycemia. For now, we will hold the home diabetes drugs and implement sliding scale insulin regimen. Provide comprehensive diabetes care with patient teaching and counseling about the importance of euglycemia, eye care and foot care. 3. CKD? - Has multiple risk factors for CKD. Needs basic nephrologic workup. Will UA, kidney sonogram, PTH, phophate levels and consult nephrology. Avoid nephrotoxic agents such as NSAIDS, aminoglycosides, contrast dyes and certain Alternative medicine products. 4. Obesity - Will provide patient all the necessary assistance , counseling and positive reinforcement to facilitate weight loss. Consult assembler bicycle. 5. DVT prophylaxis - Heparin 5000u sq tid. 6. Advance directives - Full code
--- NOTE | 2018-06-16 22:48 | HP ---
CHIEF COMPLAINT: Progressive neurological weakness, unable to sit upright. PCP: Dr. Andria Figueroa HISTORY OF PRESENT ILLNESS: Pt. with extensive history of chronic back pain presents with progressive neurological weakness after falling 2 months ago. Pt. denies hitting head or losing consciousness at the time. Pt. had a subsequent CT myelogram which showed hardware impinging on nerves causing weakness and numbness of right lower extremity. Pt. presents for medical clearnace before planned spinal surgery for hardware replacement. 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), total abdominal hysterectomy and left salpingo-oophorectomy 2/2 expanding fibroids, cholecystectomy, Trigger finger Social History: Smoking: Denies, used to smoke 3 cigs a day as a teenager Alcohol: Denies, used to drink at parties in 20s Drugs: Tried Marijuana 1x in last month to assess back pain management- endorses its efficacy Family History: Allergies levofloxacin [From Levaquin] Allergy (Severe, Verified 06/16/18 18:59) ANAPHYLAXIS methotrexate Allergy (Severe, Verified 06/16/18 18:59) Swelling BLISTERS; ALSO ALLERGY TO PCN MANY YRS AGO Penicillins Allergy (Mild, Verified 06/16/18 18:59) Rash bumetanide [From Bumex] Allergy (Verified 06/16/18 18:59) Rash piperacillin sodium [From Zosyn] Adverse Reaction (Mild, Verified 06/16/18 18:59 ) Itching tazobactam sodium [From Zosyn] Adverse Reaction (Mild, Verified 06/16/18 18:59) Itching HOME MEDICATIONS: Home Medications Medication Instructions Recorded Gabapentin 300 mg PO BID 03/04/14 Oxycodone HCl/Acetaminophen 1 - 2 tab PO Q6H PRN 03/04/14 [Percocet 10-325 mg Tablet] Insulin Lispro Protamin/Lispro 22 unit SQ BID 12/15/15 [Humalog Mix 75-25 Kwikpen] Multivitamins [Multivit ([facility] 1 tab PO DAILY 03/17/16 Formulary)] Cyclobenzaprine HCl [Flexeril -] 10 mg PO DAILY 10/25/17 Zolpidem Tartrate [Ambien] 10 mg PO HS PRN 06/01/17 Docusate Sodium [Colace -] 100 mg PO BID PRN #0 cap 06/03/17 REVIEW OF SYSTEMS CONSTITUTIONAL: Absent: fever, chills, diaphoresis, generalized weakness, malaise, loss of appetite, weight change HEENT: Absent: rhinorrhea, nasal congestion, throat pain, throat swelling, difficulty swallowing, mouth swelling, ear pain, eye pain, visual changes CARDIOVASCULAR: Absent: chest pain, syncope, palpitations, irregular heart rate , lightheadedness, peripheral edema RESPIRATORY: Absent: cough, shortness of breath, dyspnea with exertion, orthopnea, wheezing, stridor, hemoptysis GASTROINTESTINAL: Absent: abdominal pain, abdominal distension, nausea, vomiting , diarrhea, constipation, melena, hematochezia GENITOURINARY: Absent: dysuria, frequency, urgency, hesitancy, hematuria, flank pain, genital pain MUSCULOSKELETAL: Present: back pain Absent: myalgia, arthralgia, joint swelling, , neck pain SKIN: Absent: rash, itching, pallor HEMATOLOGIC/IMMUNOLOGIC: Absent: easy bleeding, easy bruising, lymphadenopathy, frequent infections ENDOCRINE: Absent: unexplained weight gain, unexplained weight loss, heat intolerance, cold intolerance NEUROLOGIC: Present: focal weakness and paresthesias in RLE, unsteady gait Absent: headache, dizziness,, seizure, mental status changes, bladder or bowel incontinence PSYCHIATRIC: Absent: anxiety, depression, suicidal or homicidal ideation, hallucinations. PHYSICAL EXAMINATION Vital Signs - 24 hr 06/16/18 18:59 Temperature 98.1 F Pulse Rate 84 Respiratory 16 Rate Blood Pressure 103/54 L O2 Sat by Pulse 99 Oximetry (%) GENERAL: Awake, alert, and fully oriented, in no acute distress. HEAD: Normal with no signs of trauma. EYES: Pupils equal, round and reactive to light, extraocular movements intact, sclera anicteric, conjunctiva clear. No lid lag. EARS, NOSE, THROAT: Ears normal, nares patent, oropharynx clear without exudates. Moist mucous membranes. LUNGS: Breath sounds equal, clear to auscultation bilaterally, no CVA tenderness. No wheezes, and no crackles. No accessory muscle use. HEART: Limited exam- cold not appreciate heart sounds d/t body habitus ABDOMEN: Soft, obese, nontender, not distended, normoactive bowel sounds, no guarding, no rebound, no masses. MUSCULOSKELETAL: Normal range of motion at all joints. No bony deformities or tenderness. No CVA tenderness. UPPER EXTREMITIES: 2+ radial pulses, warm, well-perfused. No cyanosis. No clubbing. No peripheral edema. LOWER EXTREMITIES: 2+ posterior tibial pulses, warm, well-perfused. No calf tenderness. No peripheral edema. NEUROLOGICAL: Cranial nerves II-XII intact. Normal speech. PSYCHIATRIC: Cooperative. Good eye contact. Appropriate mood and affect. SKIN: Warm, dry, normal turgor, vertical midline back normal capillary refill. Laboratory Results - last 24 hr 06/16/18 06/16/18 06/16/18 19:40 19:40 19:40 WBC 8.7 RBC 4.17 Hgb 12.5 Hct 38.1 MCV 91.3 MCH 30.1 MCHC 32.9 RDW 14.4 D Plt Count 300 D MPV 7.9 Absolute Neuts (auto) 5.6 Neutrophils % 64.7 D Lymphocytes % 22.1 D Monocytes % 10.1 Eosinophils % 2.1 Basophils % 1.0 Nucleated RBC % 0 PT with INR 11.80 INR 1.00 Sodium 136 Potassium 5.1 Chloride 98 Carbon Dioxide 28 Anion Gap 10 BUN 31 H Creatinine 2.2 H Creat Clearance w eGFR 22.00 Random Glucose 258 H Calcium 8.7 Total Bilirubin 0.2 AST 14 L ALT 21 Alkaline Phosphatase 167 H Total Protein 6.7 Albumin 2.9 L ASSESSMENT/PLAN: A 72 y.o. F w/ PMHx. of HTN, NIDDM, sCHF, RA, multiple spine surgeries, multiple hips surgeries, multiple abdominal surgeries, presents with worsening neurological lower extremity weakness 2/2 chronic back pain and hardware impinging on nerves. #Neurology -Focal neurological weakness 2/2 instrumentation impingement. Surgery planned for Tuesday medical optimization and clearance c/w Percocet c/w Fexeril c/w Gabapentin #Endocrine -NIDDM ISS ACHS BGM ACHS hold home diabetic meds #Cardiology -CHFrEF c/w torsemide 50mg -A. Fib c/w atenolol consult with Dr. Pastrana appreciated c/w Coreg 25mg BID -HTN c/w Lisinopril 5mg #Rheumatology -RA c/w Leflunomide #F/E/N -no IVF, encourage PO intake -monitor eletrolytes, replete as needed -Diabetic/ low Na+ diet #Dvt. Ppx. -SCDs -Held xarelto since tuesday. Visit type - Emergency Visit Emergency Visit: Yes ED Registration Date: 06/16/18 Care time: The patient presented to the Emergency Department on the above date and was hospitalized for further evaluation of their emergent condition. - New Patient This patient is new to me today: Yes Date on this admission: 06/17/18 - Critical Care Critical Care patient: No
[2018-06-16] MEDS ORDERED: DOCUSATE SODIUM 100 MG CAPSULE (FP) PO PRN (23:10)
[2018-06-16] MEDS ORDERED: ACETAMINOPHEN 325 MG TABLET (FP) PO PRN (23:35)
[2018-06-16] MEDS ORDERED: oxyCODONE HCL 5 MG TABLET PO PRN (23:35)
[2018-06-17 00:12] LABS: ALBUMIN 2.8 g/dl (3.4-5.0); ALK PHOS 160 U/L (45-117); ANION GAP 8 MMOL/L (8-16); BILIRUBIN,TOTAL 0.2 mg/dL (0.2-1); BLOOD UREA NITROGEN 29 mg/dL (7-18); CALCIUM 8.7 mg/dL (8.5-10.1); CHLORIDE 99 mmol/L (98-107); CO2 30 mmol/L (22-28); GLUCOSE,RANDOM 265 mg/dL (74-106); POTASSIUM 4.7 mmol/L (3.5-5.1); SGOT/AST 18 U/L (15-37); SGPT/ALT 19 U/L (13-61); SODIUM 137 mmol/L (136-145); TOT PROT 6.6 g/dl (6.4-8.2)
[2018-06-17] MEDS: INSULIN SLIDING SCALE (NOVOLOG) 1 VIAL SQ SCH ×5 (06:12→21:24)
[2018-06-17] MEDS ORDERED: INSULIN SLIDING SCALE (NOVOLOG) 1 VIAL SQ SCH (07:00)
[2018-06-17 08:00] LABS: HEMATOCRIT 34.4 % (32.4-45.2); HEMOGLOBIN 11.2 GM/dL (10.7-15.3); MCH 29.8 pg (25.7-33.7); MCHC 32.6 g/dl (32.0-36.0); MEAN CELL VOLUME 91.3 fl (80-96); MEAN PLT VOLUME 7.8 fl (7.5-11.1); PLATELET COUNT 239 K/MM3 (134-434); RBC 3.77 M/mm3 (3.60-5.2); RDW 14.3 % (11.6-15.6); WHITE BLOOD COUNT 6.6 K/mm3 (4.0-10.0)
[2018-06-17 08:45] LABS: INR 1.03 (0.83-1.09); PROTHROMBIN TIME (PATIENT) 12.2 SEC (9.7-13.0)
[2018-06-17 08:48] LABS: ACTIVATED PTT 25.9 SECONDS (25.2-36.5)
[2018-06-17 08:50] LABS: ANION GAP 11 MMOL/L (8-16); BLOOD UREA NITROGEN 28 mg/dL (7-18); CALCIUM 8.2 mg/dL (8.5-10.1); CHLORIDE 99 mmol/L (98-107); CO2 26 mmol/L (21-32); CREATININE 1.3 mg/dL (0.55-1.3); GLUCOSE,RANDOM 267 mg/dL (74-106); MAGNESIUM 2.3 mg/dL (1.8-2.4); PHOSPHOROUS 3.8 mg/dL (2.5-4.9); POTASSIUM 4.5 mmol/L (3.5-5.1); SODIUM 136 mmol/L (136-145)
[2018-06-17] MEDS: CYCLOBENZAPRINE HCL 10 MG TABLET (FP) PO SCH (10:07)
[2018-06-17] MEDS: GABAPENTIN 300 MG CAPSULE (FP) PO SCH ×2 (10:07→21:24)
[2018-06-17] MEDS: CARVEDILOL 25 MG TABLET (FP) PO SCH ×2 (10:07→21:23)
[2018-06-17] MEDS: LISINOPRIL 5 MG TABLET (FP) PO SCH (10:07)
[2018-06-17] MEDS: MULTIVITAMINS (DAILY MVI) TABLET (FP) PO SCH (10:07)
[2018-06-17] MEDS: oxyCODONE HCL 5 MG TABLET PO PRN (10:20)
[2018-06-17] MEDS: ACETAMINOPHEN 325 MG TABLET (FP) PO PRN (10:20)
[2018-06-17] MEDS: TORSEMIDE 100 MG TABLET PO SCH (11:39)
--- NOTE | 2018-06-17 12:12 | CON.CARD ---
Cardiology Consult (text) - Consultation Consultation Note: cc: back pain hpi: 8 f hx multiple PEs/DVTs s/p ivc filter and on coumadin, dm, hld, htn, syst chf here with intractable back pain. Pt with several weeks of severe lower back pain after recent fall. Imaging shows spine hardware pinching nerve , plans for OR tuesday. No cp, sob, palps, dizzy, loc, pnd, orthopnea. LE edema stable/mild. Sees dr hewitt for cardio. pmh: per hpi psh: back, knee surgeries social: no tob fam: NC ros: per hpi; no fever, nvd, cough, nasal congestion, SPARROW, vision changes, hematuria, dysuria, gib meds: Ambulatory Orders Gabapentin 300 mg PO BID 03/04/14 Oxycodone HCl/Acetaminophen [Percocet 10-325 mg Tablet] 1 - 2 tab PO Q6H PRN Insulin Lispro Protamin/Lispro [Humalog Mix 75-25 Kwikpen] 22 unit SQ BID Multivitamins [Multivit ([facility] Formul[facility])] 1 tab PO DAILY 03/17/16 Cyclobenzaprine HCl [Flexeril -] 10 mg PO DAILY 06/01/17 Zolpidem Tartrate [Ambien] 10 mg PO HS PRN 06/01/17 Docusate Sodium [Colace -] 100 mg PO BID PRN #0 cap 06/03/17 Carvedilol [Coreg -] 25 mg PO BID 06/16/18 Lisinopril 5 mg PO DAILY 06/16/18 Torsemide 50 mg PO DAILY 06/16/18 pe: Vital Signs Period Temp Pulse Resp BP Sys/Marcelo Pulse Ox Last 24 Hr 97.9 F-98.4 F 84-97 16-20 103-154/44-82 97-99 nad, no jvd rrr s1s2 no mrg cta bl nl eff aaox3 abd nt nd pos bs no le e/c/c no jaundice diaphoresis pos dp pt Laboratory Last Values WBC 6.6 K/mm3 (4.0-10.0) 06/17/18 06:50 RBC 3.77 M/mm3 (3.60-5.2) 06/17/18 06:50 Hgb 11.2 GM/dL (10.7-15.3) 06/17/18 06:50 Hct 34.4 % (32.4-45.2) 06/17/18 06:50 MCV 91.3 fl (80-96) 06/17/18 06:50 MCH 29.8 pg (25.7-33.7) 06/17/18 06:50 MCHC 32.6 g/dl (32.0-36.0) 06/17/18 06:50 RDW 14.3 % (11.6-15.6) 06/17/18 06:50 Plt Count 239 K/MM3 (134-434) D 06/17/18 06:50 MPV 7.8 fl (7.5-11.1) 06/17/18 06:50 Absolute Neuts (auto) 5.6 K/mm3 (1.5-8.0) 06/16/18 19:40 Neutrophils % 64.7 % (42.8-82.8) D 06/16/18 19:40 Lymphocytes % 22.1 % (8-40) D 06/16/18 19:40 Monocytes % 10.1 % (3.8-10.2) 06/16/18 19:40 Eosinophils % 2.1 % (0-4.5) 06/16/18 19:40 Basophils % 1.0 % (0-2.0) 06/16/18 19:40 Nucleated RBC % 0 % (0-0) 06/16/18 19:40 PT with INR 12.20 SEC (9.7-13.0) 06/17/18 06:50 INR 1.03 (0.83-1.09) 06/17/18 06:50 PTT (Actin FS) 25.9 SECONDS (25.2-36.5) 06/17/18 06:50 Sodium 136 mmol/L (136-145) 06/17/18 06:50 Potassium 4.5 mmol/L (3.5-5.1) 06/17/18 06:50 Chloride 99 mmol/L (98-107) 06/17/18 06:50 Carbon Dioxide 26 mmol/L (21-32) 06/17/18 06:50 Anion Gap 11 MMOL/L (8-16) 06/17/18 06:50 BUN 28 mg/dL (7-18) H 06/17/18 06:50 Creatinine 1.3 mg/dL (0.55-1.3) 06/17/18 06:50 Creat Clearance w eGFR 40.38 (>60) 06/17/18 06:50 POC Glucometer 214 UNITS (80-120) 06/17/18 11:38 Random Glucose 267 mg/dL (74-106) H 06/17/18 06:50 Calcium 8.2 mg/dL (8.5-10.1) L 06/17/18 06:50 Phosphorus 3.8 mg/dL (2.5-4.9) 06/17/18 06:50 Magnesium 2.3 mg/dL (1.8-2.4) 06/17/18 06:50 Total Bilirubin 0.2 mg/dL (0.2-1) 06/16/18 23:30 AST 18 U/L (15-37) 06/16/18 23:30 ALT 19 U/L (13-61) 06/16/18 23:30 Alkaline Phosphatase 160 U/L (45-117) H 06/16/18 23:30 Total Protein 6.6 g/dl (6.4-8.2) 06/16/18 23:30 Albumin 2.8 g/dl (3.4-5.0) L 06/16/18 23:30 ecg: sr, pvc, nl intervals, no ischemic changes echo 04/2013: nl lv/rv, mild lae, mild mr/tr echo in office 05/09/2017: mild-mod lve, lvef 30-35%, global hk, nl rv size, mild dec rv fcn, mild lae, mod-sev mr echo here 06/01/17: nl lv, nl rv size, mild fernando, sev mr, mild tr, nl rvsp mibi 05/2014: no ischemia, mildly reduced lvef cath 2005: normal cors a/p: 71 f hx multiple PEs/DVTs s/p ivc filter and on coumadin, dm, hld, htn, sys chf, here with intractable back pain. 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 Prior cath showed normal coronaries. No unstable cardiac issues at present. If back surgery is required may proceed at intermediate risk from cardiac pov.
[2018-06-17 12:52] LABS: URINE APPEARANCE SLCLOUDY; URINE BILIRUBIN NEGATIVE (<2.0 mg/dL); URINE COLOR YELLOW; URINE GLUCOSE (UA) 1+ (NEGATIVE); URINE KETONE NEGATIVE (NEGATIVE); URINE LEUK ESTERASE TRACE (NEGATIVE); URINE NITRITE NEGATIVE (NEGATIVE); URINE PROTEIN NEGATIVE (NEGATIVE); URINE UROBILINOGEN NEGATIVE mg/dL (0.2-1.0)
[2018-06-17 13:09] LABS: EPI CELLS RARE /HPF (FEW); URINE HYALINE CAST 6 /lpf
--- NOTE | 2018-06-17 13:27 | PN ---
Progress Note (short form) - Note Progress Note: PE: AAOX3 s1 and S2 lungs CTA good air entry abdomen soft non-tender no ext edema A 72 y.o. F w/ PMHx. of HTN, NIDDM, sCHF, RA, multiple spine surgeries, multiple hips surgeries, multiple abdominal surgeries, presents with worsening neurological lower extremity weakness 2/2 chronic back pain and hardware impinging on nerves. #Neurology -Focal neurological weakness 2/2 instrumentation impingement. Surgery planned for Tuesday c/w OXYCODONE/acetaminophen c/w cyclobenzaprile prn c/w Gabapentin #Endocrine -NIDDM ISS ACHS BGM ACHS hold home diabetic meds #Cardiology -CHFrEF c/w torsemide 50mg - hold 1 day prior to surgery -A. Fib c/w Carvidilol 25mg twice a day -HTN c/w Lisinopril 5mg #Rheumatology -RA c/w Leflunomide #F/E/N -no IVF, encourage PO intake -monitor eletrolytes, replete as needed -Diabetic/ low Na+ diet #Dvt. Ppx. -SCDs -Held xarelto since tuesday.
--- NOTE | 2018-06-17 15:54 | CONSULT ---
Consult Consult Specialty:: Nephrology Reason for Consultation:: ELIZABETH - History of Present Illness Chief Complaint: back pain History of Present Illness: Pt is a 72 year old female with pmhx of HTN, DM, CHF, DVT on xarelto, RA, and multiple spine surgeries who presented to er with back pain. She was sent in for progressive lower ext weakness. She is planned for surgery on Tuesday. She was found to be in renal failure and I was called to evaluate her. Her renal function improved over the last few days and her creatinine is near baseline. SHe denies history of kidney disease. She denies nsaid use. She is on torsemide for CHF. 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 Cardio/Vascular: Yes: CHF, Deep Vein Thrombosis, HTN Pulmonary: Yes: Pulmonary Embolus ...: No Rheumatology: Yes: Rheumatoid Arthritis Endocrine: Yes: Diabetes Mellitus - Past Surgical History Past Surgical History: Yes: Cholecystectomy, Hysterectomy, Joint Replacement - Alcohol/Substance Use Hx Alcohol Use: No - Smoking History Smoking history: Former smoker Have you smoked in the past 12 months: No Aproximately how many cigarettes per day: 0 If you are a former smoker, when did you quit?: 40 YRS - Social History History of Recent Travel: No Home Medications - Allergies Allergies/Adverse Reactions: Allergies Allergy/AdvReac Type Severity Reaction Status Date / Time levofloxacin [From Levaquin] Allergy Severe ANAPHYLAXIS Verified 06/16/18 18:59 methotrexate Allergy Severe Swelling Verified 06/16/18 18:59 Penicillins Allergy Mild Rash Verified 06/16/18 18:59 bumetanide [From Bumex] Allergy Rash Verified 06/16/18 18:59 piperacillin sodium AdvReac Mild Itching Verified 06/16/18 18:59 [From Zosyn] tazobactam sodium AdvReac Mild Itching Verified 06/16/18 18:59 [From Zosyn] - Home Medications Home Medications: Ambulatory Orders Gabapentin 300 mg PO BID 03/04/14 Oxycodone HCl/Acetaminophen [Percocet 10-325 mg Tablet] 1 - 2 tab PO Q6H PRN Insulin Lispro Protamin/Lispro [Humalog Mix 75-25 Kwikpen] 22 unit SQ BID Multivitamins [Multivit ([facility] Form[facility])] 1 tab PO DAILY 03/17/16 Cyclobenzaprine HCl [Flexeril -] 10 mg PO DAILY 06/01/17 Zolpidem Tartrate [Ambien] 10 mg PO HS PRN 06/01/17 Docusate Sodium [Colace -] 100 mg PO BID PRN #0 cap 06/03/17 Carvedilol [Coreg -] 25 mg PO BID 06/16/18 Lisinopril 5 mg PO DAILY 06/16/18 Torsemide 50 mg PO DAILY 06/16/18 Family Disease History - Family Disease History Family History: Denies Review of Systems - Review of Systems Constitutional: reports: Malaise Eyes: reports: No Symptoms HENT: reports: No Symptoms Neck: reports: No Symptoms Cardiovascular: reports: No Symptoms Respiratory: reports: No Symptoms Gastrointestinal: reports: No Symptoms Genitourinary: reports: No Symptoms Musculoskeletal: reports: Back Pain, Muscle Weakness Integumentary: reports: No Symptoms Neurological: reports: No Symptoms Endocrine: reports: No Symptoms Hematology/Lymphatic: reports: No Symptoms Psychiatric: reports: No Symptoms Physical Exam Vital Signs: Vital Signs Temperature 98.8 F 06/17/18 14:29 Pulse Rate 79 06/17/18 14:29 Respiratory Rate 18 06/17/18 14:29 Blood Pressure 101/54 L 06/17/18 14:29 O2 Sat by Pulse Oximetry (%) 97 06/17/18 09:00 Constitutional: Yes: Calm Eyes: Yes: Conjunctiva Clear HENT: Yes: Atraumatic Neck: Yes: Supple Cardiovascular: Yes: S1, S2 Respiratory: Yes: CTA Bilaterally Gastrointestinal: Yes: Soft, Abdomen, Obese Renal/: Yes: WNL Musculoskeletal: Yes: Muscle Weakness Edema: Yes Edema: LLE: Trace, RLE: Trace Neurological: Yes: Oriented Psychiatric: Yes: Oriented Labs: CBC, BMP 06/17/18 06:50 06/17/18 06:50 Laboratory Tests 06/16/18 06/16/18 06/16/18 19:40 19:40 23:30 WBC 8.7 Hgb 12.5 Sodium Creatinine 2.2 H 2.0 H Urine Protein Urine Blood 06/17/18 06/17/18 06/17/18 06:50 06:50 11:15 WBC 6.6 Hgb 11.2 Sodium 136 Creatinine 1.3 Urine Protein Negative Urine Blood Negative Problem List - Problems (1) Back pain Code(s): M54.9 - DORSALGIA, UNSPECIFIED Qualifiers: Back pain location: low back pain Chronicity: acute (2) Progressive neurological deficit Code(s): R29.818 - OTHER SYMPTOMS AND SIGNS INVOLVING THE NERVOUS SYSTEM (3) Acute renal failure Code(s): N17.9 - ACUTE KIDNEY FAILURE, UNSPECIFIED Qualifiers: Acute renal failure type: unspecified Qualified Code(s): N17.9 - Acute kidney failure, unspecified Assessment/Plan Current Medications Generic Name Dose Route Start Last Admin Trade Name Freq PRN Reason Stop Dose Admin Acetaminophen 325 mg 06/16/18 23:35 06/17/18 10:20 Tylenol - PO 325 mg Q6H PRN Administration PAIN LEVEL 1-5 Acetaminophen 650 mg 06/16/18 23:35 Tylenol - PO Q6H PRN PAIN LEVEL 6-10 Carvedilol 25 mg 06/17/18 10:00 06/17/18 10:07 Coreg - PO 25 mg BID LISA Administration Cyclobenzaprine HCl 10 mg 06/17/18 10:00 06/17/18 10:07 Flexeril - PO Not Given DAILY LISA Docusate Sodium 100 mg 06/16/18 23:10 Colace - PO BID PRN CONSTIPATION Gabapentin 300 mg 06/17/18 10:00 06/17/18 10:07 Neurontin - PO 300 mg BID LISA Administration Insulin Aspart 1 vial 06/17/18 07:00 06/17/18 12:31 Novolog Vial Sliding Scale - SQ 2 units ACHS LISA Administration Protocol Lisinopril 5 mg 06/17/18 10:00 06/17/18 10:07 Prinivil PO 5 mg DAILY LISA Administration Multivitamins/Minerals/Vitamin C 1 tab 06/17/18 10:00 06/17/18 10:07 Tab-A-Vit - PO 1 tab DAILY LISA Administration Oxycodone HCl 10 mg 06/16/18 23:34 06/17/18 10:20 Roxicodone - PO 10 mg Q6H PRN Administration PAIN LEVEL 1-5 Oxycodone HCl 20 mg 06/16/18 23:35 Roxicodone - PO Q6H PRN PAIN LEVEL 6-10 Torsemide 50 mg 06/17/18 10:00 06/17/18 11:39 Demadex - PO 50 mg DAILY LISA Administration Zolpidem Tartrate 5 mg 06/16/18 23:10 Ambien - PO HS PRN INSOMNIA Impression 1. ELIZABETH resolving 2. CHF 3. back pain 4. DM 5. HTN 6. CHF 7. DVT on xarelto Plan - renal function is improved - ua neg blood or protein - avoid intra-op hypotension - repeat labs in am - will check kidney ultrasound - will follow Dr Loyd
[2018-06-17] MEDS ORDERED: INSULIN (NOVOLOG) ASPART 100 UNITS/ML 10ML VIAL ONE (21:10)
[2018-06-17] MEDS: INSULIN (LEVEMIR) 100 UNITS/ML UNITS SQ SCH (21:23)
[2018-06-17] MEDS: ZOLPIDEM TARTRATE 5 MG TABLET PO PRN (23:20)
[2018-06-18] MEDS: INSULIN SLIDING SCALE (NOVOLOG) 1 VIAL SQ SCH ×4 (06:33→21:56)
[2018-06-18] MEDS ORDERED: INSULIN (NOVOLOG) ASPART 100 UNITS/ML 10ML VIAL ONE ×2 (06:40→11:24)
[2018-06-18] MEDS: oxyCODONE HCL 5 MG TABLET PO PRN (08:03)
[2018-06-18 08:17] LABS: BASO % 1.1 % (0-2.0); EOS % 3.1 % (0-4.5); HEMATOCRIT 34.7 % (32.4-45.2); HEMOGLOBIN 11.3 GM/dL (10.7-15.3); LYMPH % 33.5 % (8-40); MCH 29.6 pg (25.7-33.7); MCHC 32.5 g/dl (32.0-36.0); MEAN CELL VOLUME 90.9 fl (80-96); MEAN PLT VOLUME 7.9 fl (7.5-11.1); MONO % 12.7 % (3.8-10.2); NEUT % 49.6 % (42.8-82.8); PLATELET COUNT 239 K/MM3 (134-434); RBC 3.82 M/mm3 (3.60-5.2); RDW 14.1 % (11.6-15.6); WHITE BLOOD COUNT 6.7 K/mm3 (4.0-10.0)
[2018-06-18 08:35] LABS: ALBUMIN 2.5 g/dl (3.4-5.0); ALK PHOS 140 U/L (45-117); ANION GAP 9 MMOL/L (8-16); BILIRUBIN,TOTAL 0.4 mg/dL (0.2-1); BLOOD UREA NITROGEN 34 mg/dL (7-18); CHLORIDE 102 mmol/L (98-107); CO2 28 mmol/L (21-32); CREATININE 0.9 mg/dL (0.55-1.3); GLUCOSE,RANDOM 178 mg/dL (74-106); POTASSIUM 4.6 mmol/L (3.5-5.1); SGOT/AST 7 U/L (15-37); SGPT/ALT 14 U/L (13-61); SODIUM 138 mmol/L (136-145); TOT PROT 5.8 g/dl (6.4-8.2)
[2018-06-18] MEDS: CARVEDILOL 25 MG TABLET (FP) PO SCH ×2 (09:37→21:55)
[2018-06-18] MEDS: MULTIVITAMINS (DAILY MVI) TABLET (FP) PO SCH (09:37)
[2018-06-18] MEDS: GABAPENTIN 300 MG CAPSULE (FP) PO SCH ×2 (09:37→21:55)
[2018-06-18] MEDS: TORSEMIDE 100 MG TABLET PO SCH (09:38)
[2018-06-18] MEDS: CYCLOBENZAPRINE HCL 10 MG TABLET (FP) PO SCH (09:39)
[2018-06-18] MEDS: LISINOPRIL 5 MG TABLET (FP) PO SCH (09:39)
--- NOTE | 2018-06-18 15:03 | PN ---
Progress Note, Physician History of Present Illness: Pt seen and examined at bedside. She is awake and alert. She denies shortness of breath. - Current Medication List Current Medications: Active Medications Acetaminophen (Tylenol -) 325 mg PO Q6H PRN PRN Reason: PAIN LEVEL 1-5 Last Admin: 06/17/18 10:20 Dose: 325 mg Acetaminophen (Tylenol -) 650 mg PO Q6H PRN PRN Reason: PAIN LEVEL 6-10 Last Admin: 06/18/18 08:03 Dose: 650 mg Carvedilol (Coreg -) 25 mg PO BID [facility] Last Admin: 06/18/18 09:37 Dose: Not Given Cyclobenzaprine HCl (Flexeril -) 10 mg PO DAILY [facility] Last Admin: 06/18/18 09:39 Dose: Not Given Docusate Sodium (Colace -) 100 mg PO BID PRN PRN Reason: CONSTIPATION Gabapentin (Neurontin -) 300 mg PO BID [facility] Last Admin: 06/18/18 09:37 Dose: 300 mg Insulin Aspart (Novolog Vial Sliding Scale -) 1 vial SQ [facility]; Protocol Last Admin: 06/18/18 11:47 Dose: 6 units Insulin Detemir (Levemir Vial) 10 units SQ [facility] Last Admin: 06/17/18 21:23 Dose: 10 units Lisinopril (Prinivil) 5 mg PO DAILY [facility] Last Admin: 06/18/18 09:39 Dose: Not Given Multivitamins/Minerals/Vitamin C (Tab-A-Vit -) 1 tab PO DAILY [facility] Last Admin: 06/18/18 09:37 Dose: 1 tab Oxycodone HCl (Roxicodone -) 10 mg PO Q6H PRN PRN Reason: PAIN LEVEL 1-5 Last Admin: 06/18/18 08:03 Dose: 10 mg Oxycodone HCl (Roxicodone -) 20 mg PO Q6H PRN PRN Reason: PAIN LEVEL 6-10 Torsemide (Demadex -) 50 mg PO DAILY [facility] Last Admin: 06/18/18 09:38 Dose: 50 mg Zolpidem Tartrate (Ambien -) 5 mg PO HS PRN PRN Reason: INSOMNIA Last Admin: 06/17/18 23:20 Dose: 5 mg - Objective Vital Signs: Vital Signs Temperature 98.7 F 06/18/18 14:50 Pulse Rate 80 06/18/18 14:50 Respiratory Rate 18 06/18/18 14:50 Blood Pressure 116/50 L 06/18/18 14:50 O2 Sat by Pulse Oximetry (%) 99 06/18/18 09:00 Constitutional: Yes: Calm Eyes: Yes: Conjunctiva Clear HENT: Yes: Atraumatic Neck: Yes: Supple Cardiovascular: Yes: S1, S2 Respiratory: Yes: CTA Bilaterally Gastrointestinal: Yes: Normal Bowel Sounds, Soft Genitourinary: Yes: WNL Musculoskeletal: Yes: Back Pain Neurological: Yes: Oriented Psychiatric: Yes: Oriented Labs: CBC, BMP 06/18/18 06:59 06/18/18 06:59 INR, PTT INR 1.03 (0.83-1.09) 06/17/18 06:50 Problem List - Problems (1) Back pain Code(s): M54.9 - DORSALGIA, UNSPECIFIED Qualifiers: Back pain location: low back pain Chronicity: acute (2) Progressive neurological deficit Code(s): R29.818 - OTHER SYMPTOMS AND SIGNS INVOLVING THE NERVOUS SYSTEM (3) Acute renal failure Code(s): N17.9 - ACUTE KIDNEY FAILURE, UNSPECIFIED Qualifiers: Acute renal failure type: unspecified Qualified Code(s): N17.9 - Acute kidney failure, unspecified Assessment/Plan Current Medications Generic Name Dose Route Start Last Admin Trade Name Freq PRN Reason Stop Dose Admin Acetaminophen 325 mg 06/16/18 23:35 06/17/18 10:20 Tylenol - PO 325 mg Q6H PRN Administration PAIN LEVEL 1-5 Acetaminophen 650 mg 06/16/18 23:35 06/18/18 08:03 Tylenol - PO 650 mg Q6H PRN Administration PAIN LEVEL 6-10 Carvedilol 25 mg 06/17/18 10:00 06/18/18 09:37 Coreg - PO Not Given BID LISA Cyclobenzaprine HCl 10 mg 06/17/18 10:00 06/18/18 09:39 Flexeril - PO Not Given DAILY LISA Docusate Sodium 100 mg 06/16/18 23:10 Colace - PO BID PRN CONSTIPATION Gabapentin 300 mg 06/17/18 10:00 06/18/18 09:37 Neurontin - PO 300 mg BID LISA Administration Insulin Aspart 1 vial 06/17/18 07:00 06/18/18 11:47 Novolog Vial Sliding Scale - SQ 6 units ACHS LISA Administration Protocol Insulin Detemir 10 units 06/17/18 22:00 06/17/18 21:23 Levemir Vial SQ 10 units HS LISA Administration Lisinopril 5 mg 06/17/18 10:00 06/18/18 09:39 Prinivil PO Not Given DAILY LISA Multivitamins/Minerals/Vitamin C 1 tab 06/17/18 10:00 06/18/18 09:37 Tab-A-Vit - PO 1 tab DAILY LISA Administration Oxycodone HCl 10 mg 06/16/18 23:34 06/18/18 08:03 Roxicodone - PO 10 mg Q6H PRN Administration PAIN LEVEL 1-5 Oxycodone HCl 20 mg 06/16/18 23:35 Roxicodone - PO Q6H PRN PAIN LEVEL 6-10 Torsemide 50 mg 06/17/18 10:00 06/18/18 09:38 Demadex - PO 50 mg DAILY LISA Administration Zolpidem Tartrate 5 mg 06/16/18 23:10 06/17/18 23:20 Ambien - PO 5 mg HS PRN Administration INSOMNIA Impression 1. ELIZABETH resolving 2. CHF 3. back pain 4. DM 5. HTN 6. CHF 7. DVT on xarelto Plan - renal function is stable - avoid intra-op hypotension - repeat labs in am - follow kidney ultrasound - pt did get torsemide today - cont lorna - will follow Dr Loyd
--- NOTE | 2018-06-18 19:10 | EKG ---
Test Reason : Blood Pressure : / mmHG Vent. Rate : 083 BPM Atrial Rate : 083 BPM P-R Int : 128 ms QRS Dur : 078 ms QT Int : 402 ms P-R-T Axes : 051 042 045 degrees QTc Int : 472 ms SINUS RHYTHM WITH OCCASIONAL PREMATURE VENTRICULAR COMPLEXES OTHERWISE NORMAL ECG WHEN COMPARED WITH ECG OF 23-FEB-2017 21:53, NO SIGNIFICANT CHANGE WAS FOUND Confirmed by KAYLA BATES MD ([id number]) on 06/18/2018 7:09:30 PM Referred By: Confirmed By:KAYLA BATES MD
[2018-06-18] MEDS ORDERED: PT OWN MED DRAWER 7, Y5N ONE (19:41)
[2018-06-18] MEDS: INSULIN (LEVEMIR) 100 UNITS/ML UNITS SQ SCH (21:55)
[2018-06-18] MEDS: ZOLPIDEM TARTRATE 5 MG TABLET PO PRN (23:05)
[2018-06-19] MEDS: INSULIN SLIDING SCALE (NOVOLOG) 1 VIAL SQ SCH ×2 (06:38→11:30)
[2018-06-19] MEDS: ACETAMINOPHEN 325 MG TABLET (FP) PO PRN (09:07)
--- NOTE | 2018-06-19 09:44 | ECHO ---
Name: SHERI PADILLA Exam:Adult Echocardiogram Study Date: 06/19/2018 08:10 AM Age: 72 yrs Reason For Study: SURGERY CLEARANCE Height: 63 in Weight: 212 lb BSA: 2.0 m2 MMode/2D Measurements & Calculations IVSd: 0.84 cm Ao root diam: 3.0 cm LVIDd: 5.5 cm LA dimension: 4.0 cm LVIDs: 4.0 cm ACS: 1.7 cm LVPWd: 0.77 cm IVSs: 1.0 cm LVPWs: 1.1 cm EDV(Teich): 145.9 ml ESV(Teich): 70.3 ml Doppler Measurements & Calculations MV E max nito: 86.1 cm/sec Ao V2 max: 124.1 cm/sec MV A max nito: 106.9 cm/sec Ao max P.2 mmHg MV E/A: 0.81 Ao V2 mean: 88.2 cm/sec Ao mean P.6 mmHg Ao V2 VTI: 24.8 cm MR max nito: 489.6 cm/sec TR max nito: 211.8 cm/sec MR max P.2 mmHg TR max P.0 mmHg Med Peak E' Nito: 4.2 cm/sec Med E/e': 20.5 Lat Peak E' Nito: 5.6 cm/sec Lat E/e': 15.5 Procedure A complete two-dimensional transthoracic echocardiogram was performed (2D, M-mode, Doppler and color flow Doppler). Left Ventricle The left ventricle is normal in size. Left ventricular systolic function is borderline reduced. Eject ion Fraction = 50-55%. No regional wall motion abnormalities noted. Right Ventricle The right ventricle is not well visualized. Atria The left atrial size is normal. Right atrial size is normal. Mitral Valve There is mild mitral annular calcification. There is mild mitral regurgitation. Tricuspid Valve The tricuspid valve is normal in structure and function. No tricuspid regurgitation. Right ventricula r systolic pressure is normal. Aortic Valve The aortic valve is normal in structure and function. No aortic regurgitation is present. Pulmonic Valve The pulmonic valve is not well visualized. Great Vessels The aortic root is normal size. Pericardium/Pleura There is no pericardial effusion. Interpretation Summary The left ventricle is normal in size. Left ventricular systolic function is borderline reduced. No regional wall motion abnormalities noted. Ejection Fraction = 50-55%. The right ventricle is not well visualized. The left atrial size is normal. Right atrial size is normal. There is mild mitral annular calcification. There is mild mitral regurgitation. There is no pericardial effusion. Previous study is not available for comparison Jeffrey Liang MD 06/19/2018 09:43 AM
[2018-06-19] MEDS: LISINOPRIL 5 MG TABLET (FP) PO SCH (10:25)
[2018-06-19] MEDS: MULTIVITAMINS (DAILY MVI) TABLET (FP) PO SCH (10:25)
[2018-06-19] MEDS: CYCLOBENZAPRINE HCL 10 MG TABLET (FP) PO SCH (10:25)
[2018-06-19] MEDS: CARVEDILOL 25 MG TABLET (FP) PO SCH (10:25)
[2018-06-19] MEDS: GABAPENTIN 300 MG CAPSULE (FP) PO SCH (10:25)
[2018-06-19] MEDS: TORSEMIDE 100 MG TABLET PO SCH (10:26)
--- NOTE | 2018-06-19 10:36 | PN ---
Physical Exam: SUBJECTIVE: Patient seen and examined at bedside. no acute events overnight, patient states she is feeling ok just anxious about the surgery and hopes her lower extremity weakness will go away as she has had so many surgeries already- otherwise, she denies any CP/SOB/N/V OBJECTIVE: Vital Signs Period Temp Pulse Resp BP Sys/Marcelo Pulse Ox Last 24 Hr 98.1 F-98.8 F 80-86 18-20 116-151/50-65 100 GENERAL: The patient is awake, alert, laying down in slight acute distress. EYES: no scleral icterus NECK: no JvD, no lymphadenopathy LUNGS: CTA BL; no rales rhonchi or wheezing. HEART: distant heart sounds likely 2/2 body habitus. ABDOMEN: Soft, nontender, nondistended, normoactive bowel sounds, no guarding, no rebound, no hepatosplenomegaly, no masses. EXTREMITIES: 2+ pulses, warm, well-perfused, no edema. MUSCULOSKELETAL: decreased range of motion BL; vertebral tenderness (lumbar region) NEUROLOGICAL: Cranial nerves II through XII grossly intact. Normal speech, gait not observed. PSYCH: Normal mood, normal affect. SKIN: Warm, dry, normal turgor, no rashes or lesions noted Laboratory Results - last 24 hr 06/18/18 06/18/18 06/18/18 06:59 11:09 11:11 PTT (Actin FS) 25.8 POC Glucometer 345 336 06/18/18 06/18/18 06/19/18 16:05 21:47 06:36 PTT (Actin FS) POC Glucometer 232 378 242 Active Medications Generic Name Dose Route Start Last Admin Trade Name Freq PRN Reason Stop Dose Admin Acetaminophen 325 mg 06/16/18 23:35 06/19/18 09:07 Tylenol - PO 325 mg Q6H PRN Administration PAIN LEVEL 1-5 Acetaminophen 650 mg 06/16/18 23:35 06/18/18 08:03 Tylenol - PO 650 mg Q6H PRN Administration PAIN LEVEL 6-10 Carvedilol 25 mg 06/17/18 10:00 06/19/18 10:25 Coreg - PO 25 mg BID LISA Administration Cyclobenzaprine HCl 10 mg 06/17/18 10:00 06/19/18 10:25 Flexeril - PO 10 mg DAILY LISA Administration Docusate Sodium 100 mg 06/16/18 23:10 Colace - PO BID PRN CONSTIPATION Gabapentin 300 mg 06/17/18 10:00 06/19/18 10:25 Neurontin - PO 300 mg BID LISA Administration Insulin Aspart 1 vial 06/17/18 07:00 06/19/18 06:38 Novolog Vial Sliding Scale - SQ 2 units ACHS LISA Administration Protocol Insulin Detemir 10 units 06/17/18 22:00 06/18/18 21:55 Levemir Vial SQ 10 units HS LISA Administration Lisinopril 5 mg 06/17/18 10:00 06/19/18 10:25 Prinivil PO 5 mg DAILY LISA Administration Multivitamins/Minerals/Vitamin C 1 tab 06/17/18 10:00 06/19/18 10:25 Tab-A-Vit - PO 1 tab DAILY LISA Administration Oxycodone HCl 10 mg 06/16/18 23:34 06/18/18 08:03 Roxicodone - PO 10 mg Q6H PRN Administration PAIN LEVEL 1-5 Oxycodone HCl 20 mg 06/16/18 23:35 06/19/18 09:08 Roxicodone - PO 20 mg Q6H PRN Administration PAIN LEVEL 6-10 Torsemide 50 mg 06/17/18 10:00 06/19/18 10:26 Demadex - PO Not Given DAILY LISA Zolpidem Tartrate 5 mg 06/16/18 23:10 06/18/18 23:05 Ambien - PO 5 mg HS PRN Administration INSOMNIA ASSESSMENT/PLAN: 72 y/o female with PMH of HTN, DM, CHF, multiple spine and hip surgeries, RA presents with worsening neurological lower extremity weakness 2/2 chronic back pain and hardware impinging on nerves, #Lower extremity weakness neurological weakness 2/2 hardware impingement -surgery planned for today with Dr. Borjas -f/u surgery recs -c/w percocet -c/w gabapenting -c/w flexeril #DM -holding oral diabetic agents -ISS -BGMS ACHS # CHF -c/w torsemide 50 mg -echo done: ef 50-55%; no regional wall motion abnormlaities; mild MR #Afib -c/w atenolol and coreg daily -Dr. Pastrana was consultes; f/u recs #HTN -c/w lisinopril 5mg daily #RA -c/w leflunomide daily F/E/N not on fluids monitor electrolytes accordingly diabetic/low sodium diet DVT PPX SCDS Problem List - Problems (1) Back pain Code(s): M54.9 - DORSALGIA, UNSPECIFIED Qualifiers: Back pain location: low back pain Chronicity: acute (2) Acute renal failure Code(s): N17.9 - ACUTE KIDNEY FAILURE, UNSPECIFIED Qualifiers: Acute renal failure type: unspecified Qualified Code(s): N17.9 - Acute kidney failure, unspecified Visit type - Emergency Visit Emergency Visit: Yes ED Registration Date: 06/16/18 Care time: The patient presented to the Emergency Department on the above date and was hospitalized for further evaluation of their emergent condition. - New Patient This patient is new to me today: Yes Date on this admission: 06/19/18 - Critical Care Critical Care patient: No
[2018-06-19 11:25] LABS: ANION GAP 6 MMOL/L (8-16); BLOOD UREA NITROGEN 26 mg/dL (7-18); CALCIUM 8.6 mg/dL (8.5-10.1); CHLORIDE 100 mmol/L (98-107); CO2 28 mmol/L (21-32); CREATININE 0.8 mg/dL (0.55-1.3); GLUCOSE,RANDOM 269 mg/dL (74-106); POTASSIUM 4.9 mmol/L (3.5-5.1); SODIUM 135 mmol/L (136-145)
[2018-06-19] MEDS ORDERED: SODIUM CHLORIDE 0.9% P/F 10 ML VIAL IJ ONE (11:31)
[2018-06-19] MEDS ORDERED: LIDOCAINE HCL/PF 2% SDV 5ML VIAL ONE (11:36)
[2018-06-19] MEDS ORDERED: MIDAZOLAM HCL 2 MG/2 ML SINGLE DOSE VIAL ONE (11:36)
--- NOTE | 2018-06-19 11:42 | PN ---
Progress Note, Physician History of Present Illness: Pt seen and examined at bedside. She is awake and alert. She denies shortness of breath. She is going for back surgery today. - Current Medication List Current Medications: Active Medications Acetaminophen (Tylenol -) 325 mg PO Q6H PRN PRN Reason: PAIN LEVEL 1-5 Last Admin: 06/19/18 09:07 Dose: 325 mg Acetaminophen (Tylenol -) 650 mg PO Q6H PRN PRN Reason: PAIN LEVEL 6-10 Last Admin: 06/18/18 08:03 Dose: 650 mg Carvedilol (Coreg -) 25 mg PO BID [facility] Last Admin: 06/19/18 10:25 Dose: 25 mg Cyclobenzaprine HCl (Flexeril -) 10 mg PO DAILY [facility] Last Admin: 06/19/18 10:25 Dose: 10 mg Docusate Sodium (Colace -) 100 mg PO BID PRN PRN Reason: CONSTIPATION Gabapentin (Neurontin -) 300 mg PO BID [facility] Last Admin: 06/19/18 10:25 Dose: 300 mg Insulin Aspart (Novolog Vial Sliding Scale -) 1 vial SQ [facility]; Protocol Last Admin: 06/19/18 06:38 Dose: 2 units Insulin Detemir (Levemir Vial) 10 units SQ [facility] Last Admin: 06/18/18 21:55 Dose: 10 units Lisinopril (Prinivil) 5 mg PO DAILY [facility] Last Admin: 06/19/18 10:25 Dose: 5 mg Multivitamins/Minerals/Vitamin C (Tab-A-Vit -) 1 tab PO DAILY [facility] Last Admin: 06/19/18 10:25 Dose: 1 tab Oxycodone HCl (Roxicodone -) 10 mg PO Q6H PRN PRN Reason: PAIN LEVEL 1-5 Last Admin: 06/18/18 08:03 Dose: 10 mg Oxycodone HCl (Roxicodone -) 20 mg PO Q6H PRN PRN Reason: PAIN LEVEL 6-10 Last Admin: 06/19/18 09:08 Dose: 20 mg Torsemide (Demadex -) 50 mg PO DAILY [facility] Last Admin: 06/19/18 10:26 Dose: Not Given Zolpidem Tartrate (Ambien -) 5 mg PO HS PRN PRN Reason: INSOMNIA Last Admin: 06/18/18 23:05 Dose: 5 mg - Objective Vital Signs: Vital Signs Temperature 98.8 F 06/19/18 10:24 Pulse Rate 85 06/19/18 10:24 Respiratory Rate 20 06/19/18 10:24 Blood Pressure 135/63 06/19/18 10:24 O2 Sat by Pulse Oximetry (%) 100 06/18/18 21:00 Constitutional: Yes: Calm Eyes: Yes: Conjunctiva Clear HENT: Yes: Normocephalic Cardiovascular: Yes: S1, S2 Respiratory: Yes: CTA Bilaterally Gastrointestinal: Yes: Soft, Abdomen, Obese Genitourinary: Yes: WNL Musculoskeletal: Yes: Muscle Weakness Edema: No Neurological: Yes: Oriented Psychiatric: Yes: Oriented Labs: CBC, BMP 06/18/18 06:59 06/19/18 10:40 INR, PTT INR 1.03 (0.83-1.09) 06/17/18 06:50 Problem List - Problems (1) Back pain Code(s): M54.9 - DORSALGIA, UNSPECIFIED Qualifiers: Back pain location: low back pain Chronicity: acute (2) Progressive neurological deficit Code(s): R29.818 - OTHER SYMPTOMS AND SIGNS INVOLVING THE NERVOUS SYSTEM (3) Acute renal failure Code(s): N17.9 - ACUTE KIDNEY FAILURE, UNSPECIFIED Qualifiers: Acute renal failure type: unspecified Qualified Code(s): N17.9 - Acute kidney failure, unspecified Assessment/Plan Current Medications Generic Name Dose Route Start Last Admin Trade Name Freq PRN Reason Stop Dose Admin Acetaminophen 325 mg 06/16/18 23:35 06/19/18 09:07 Tylenol - PO 325 mg Q6H PRN Administration PAIN LEVEL 1-5 Acetaminophen 650 mg 06/16/18 23:35 06/18/18 08:03 Tylenol - PO 650 mg Q6H PRN Administration PAIN LEVEL 6-10 Carvedilol 25 mg 06/17/18 10:00 06/19/18 10:25 Coreg - PO 25 mg BID LISA Administration Cyclobenzaprine HCl 10 mg 06/17/18 10:00 06/19/18 10:25 Flexeril - PO 10 mg DAILY L[facility] Administration Docusate Sodium 100 mg 06/16/18 23:10 Colace - PO BID PRN CONSTIPATION Gabapentin 300 mg 06/17/18 10:00 06/19/18 10:25 Neurontin - PO 300 mg BID LISA Administration Insulin Aspart 1 vial 06/17/18 07:00 06/19/18 06:38 Novolog Vial Sliding Scale - SQ 2 units ACHS LISA Administration Protocol Insulin Detemir 10 units 06/17/18 22:00 06/18/18 21:55 Levemir Vial SQ 10 units HS LISA Administration Lisinopril 5 mg 06/17/18 10:00 06/19/18 10:25 Prinivil PO 5 mg DAILY [facility] Administration Multivitamins/Minerals/Vitamin C 1 tab 06/17/18 10:00 06/19/18 10:25 Tab-A-Vit - PO 1 tab DAILY LISA Administration Oxycodone HCl 10 mg 06/16/18 23:34 06/18/18 08:03 Roxicodone - PO 10 mg Q6H PRN Administration PAIN LEVEL 1-5 Oxycodone HCl 20 mg 06/16/18 23:35 06/19/18 09:08 Roxicodone - PO 20 mg Q6H PRN Administration PAIN LEVEL 6-10 Torsemide 50 mg 06/17/18 10:00 06/19/18 10:26 Demadex - PO Not Given DAILY LISA Zolpidem Tartrate 5 mg 06/16/18 23:10 06/18/18 23:05 Ambien - PO 5 mg HS PRN Administration INSOMNIA Impression 1. ELIZABETH resolving 2. CHF 3. back pain 4. DM 5. HTN 6. CHF 7. DVT on xarelto Plan - renal function is improved - torsemide held today - cortical atrophy on renal ultrasound, may have ckd - OR today - avoid intra-op hypotension - avoid nsaids - will follow Dr Loyd
[2018-06-19] MEDS ORDERED: HEPARIN NA (PORCINE) 5,000 UNITS/ML 1ML VIAL ONE ×2 (11:50→14:39)
[2018-06-19] MEDS ORDERED: BUPIVACAINE HCL/PF 0.25% (2.5MG/ML) 10 ML VIAL ONE (11:50)
[2018-06-19] MEDS ORDERED: THROMBIN (BOVINE) 5,000 UNIT VIAL TP ONE (11:50)
[2018-06-19] MEDS ORDERED: PROPOFOL 20 ML ONE ×7 (12:50→15:56)
[2018-06-19] MEDS ORDERED: ETOMIDATE 20 MG/10 ML AMPUL IVPUSH ONE (12:52)
[2018-06-19] MEDS ORDERED: CLINDAMYCIN PHOSPHATE 600 MG/4 ML VIAL ONE (12:54)
[2018-06-19] MEDS ORDERED: ePHEDrine SULFATE 50 MG/1 ML AMPULE ONE ×2 (12:54→13:52)
[2018-06-19] MEDS ORDERED: VANCOMYCIN 1,000 MG VIAL (RESTRICTED TO ID ONLY) ONE (12:54)
[2018-06-19] MEDS ORDERED: CLINDAMYCIN 900 MG PREMIX BAG IVPB ONE (12:55)
[2018-06-19] MEDS ORDERED: DEXAMETHASONE SOD PHOSPHATE 4 MG/1 ML VIAL ONE ×2 (12:55→13:17)
[2018-06-19] MEDS ORDERED: ROCURONIUM BROMIDE 50 MG/5 ML VIAL ONE (12:56)
[2018-06-19] MEDS ORDERED: VANCOMYCIN 1,000 MG VIAL (RESTRICTED TO ID ONLY) IVPB ONE (13:04)
[2018-06-19] MEDS ORDERED: PHENYLEPHRINE HCL 10 MG/1 ML SINGLE DOSE VIAL ONE (14:32)
--- NOTE | 2018-06-19 14:36 | PN ---
Teaching Attending Note Name of Resident: Mar Whiteside ATTENDING PHYSICIAN STATEMENT I saw and evaluated the patient. I reviewed the resident's note and discussed the case with the resident. I agree with the resident's findings and plan as documented. SUBJECTIVE:states pain is controlled with current regimen however has also not gotten out of bed and that typically exacerbates the pain. denies CP, SOB, fever , chills, N/V/C/D, no CP or SOB on mild exertion. no complications with anesthesia in the past. OBJECTIVE: Last Vital Signs Temp Pulse Resp BP Pulse Ox 98.8 F 85 20 135/63 100 06/19/18 10:24 06/19/18 10:24 06/19/18 10:24 06/19/18 10:24 06/19/18 09:00 General NAD CV S1 S2 RRR no murmur/rub/gallop Lungs CTA B/L no wheezing/rales/rhonchi Abdomen soft NT/ND obese Extremities no calf tenderness ASSESSMENT AND PLAN: 72 y.o. F w/ PMHx. of HTN, NIDDM, systolic CHF, RA, multiple spine surgeries, multiple hips surgeries, multiple abdominal surgeries, presents with worsening neurological lower extremity weakness 2/2 chronic back pain and hardware impinging on nerves. 1. Lower extremity weakness- due to hardware impinging on nerves. NPO for surgery today. further recommendations per ortho. PT post-op. pt very adamant about not going to [facility] afterwards. pain control 2. ELIZABETH- likely pre-renal. now resolved. renal u/s negative for acute pathology. renal on board 3. DM- hold oral agents. ISS and BGM 4. Systolic CHF- no signs of volume overload. Toresemide held in light of upcoming surgery. cardo on board 5. Afib- rate controlled. Xarelto been on hold for past week for upcoming surgery. will d/w ortho about when safe to resume 6. RA_ on leflunomide 7. DVT ppx- SCD. hold pharmacologic anticoagulation in light of surgery. will resume when ok'd by ortho
[2018-06-19] MEDS ORDERED: CALCIUM CHLORIDE 1 GM/10 ML *DISP.SYRIN ONE (15:25)
[2018-06-19] MEDS ORDERED: GLYCOPYRROLATE 0.2 MG/1 ML VIAL ONE (16:33)
[2018-06-19] MEDS ORDERED: FLU VACCINE QUAD 60 MCG/0.5 ML (MDV 18-19) IM ONE (17:00)
[2018-06-19] MEDS ORDERED: BENZOIN TINCTURE SWABSTICK TP ONE (17:12)
--- NOTE | 2018-06-19 17:42 | PN ---
Progress Note (short form) - Note Progress Note: 72F s/p SHANIA right L4-S1, inspection of fusion mass, pedicle subtraction osteotomy right L4 & L5, revision laminectomy right L4, L5, right L4 neurotomy, POD #0. -Pain control: as per anaesthesia team. -DVT PPx: - Mechanical only: MARLON's, SCD's. - No chemical DVT PPx. x 72 hrs. post-op. -NPO until flatus. -Strict bedrest with head of bed FLAT x 72 hrs. post-op due to repair of durotomy. -When ambulating, PT/OT/Rehab, OOB. -WBAT B/L LE. -Drain on gravity; NO SELF-SUCTION. -Hines care. -Post-op antibiotics x 2 doses. -Care per ICU & medical hospitalist teams. -Will follow. Sreekanth Borjas MD (Orthopaedic Surgery).
--- NOTE | 2018-06-19 17:49 | OP ---
Operative Note - Note: Operative Date: 06/19/18 Pre-Operative Diagnosis: Lumbar spinal stenosis. Right L5 radiculopathy Operation: 1. Removal of hardware right L4-S1. 2. Inspection of fusion mass. 3. Pedicle subtraction osteotomy right L4 & L5. 4. Revision laminectomy right L4, L5. 5. Right L4-L5 foraminotomy & neurotomy. 6. Bone autograft. 7. Bone allograft. 8. Bone marrow aspiration Post-Operative Diagnosis: Same as Pre-op Surgeon: Luis Borjas Needleworker: Sreekanth Borjas Anesthesiologist/CARPET LOOM FIXER: Silvana Paula Anesthesia: General Specimens Removed: Hardware. Bone Estimated Blood Loss (mls): 500 Drains & Tubes with Location: 1 x deep HemoVac Blood Volume Replaced (mls): 125 (Cell saver) Fluid Volume Replaced (mls): 2,500 (Crystalloid) Operative Report Dictated: Yes
[2018-06-19] MEDS ORDERED: ONDANSETRON 4 MG/2 ML VIAL IVPUSH PRN ×4 (17:52→18:10)
[2018-06-19] MEDS ORDERED: HYDROmorphone *PCA* 10MG/50ML DISP.SYRIN PCA SCH (18:00)
[2018-06-19] MEDS ORDERED: LACTATED RINGERS SOLUTION 1,000 ML IV SCH (18:00)
[2018-06-19] MEDS ORDERED: ACETAMINOPHEN 1000 MG/100 ML VIAL (NON FORMULARY) IVPB SCH (18:00)
[2018-06-19] MEDS ORDERED: ceFAZolin 2 GRAM PREMIX BAG IVPB SCH (18:00)
[2018-06-19] MEDS ORDERED: HYDROmorphone *PCA* 10MG/50ML DISP.SYRIN PCA ONE (18:02)
[2018-06-19] MEDS ORDERED: DOCUSATE SODIUM 100 MG CAPSULE (FP) PO PRN (18:10)
[2018-06-19] MEDS: LACTATED RINGERS SOLUTION 1,000 ML IV SCH (18:10)
[2018-06-19] MEDS: HYDROmorphone *PCA* 10MG/50ML DISP.SYRIN PCA SCH ×3 (18:12→19:25)
[2018-06-19] MEDS ORDERED: ACETAMINOPHEN INJECTION 100 ML IVPB ONE (18:15)
--- NOTE | 2018-06-19 21:50 | OP ---
DATE OF OPERATION: DATE OF DICTATION: 06/19/2018 SURGEON: Sreekanth Borjas MD BLOOD BANK SPECIALIST: Luis Borjas MD PREOPERATIVE DIAGNOSES: Right lower extremity L4, L5, S1 radiculopathy following previous thoracolumbar pelvic fixation and fusion with possible pseudoarthrosis. POSTOPERATIVE DIAGNOSES: Severe canal stenosis L4, L5, S1 with incidental durotomy and possible pseudoarthrosis, difficult to assess, L5-S1. OPERATION DETAILS: 1. Revision laminectomy, L3, L4, L5, S1. 2. Clearance of the vertebral canal (osteophyte disk resection). 3. Removal of hardware from L3 to lumbopelvic fixation. 4. Inspection of the fusion mass. 5. Revision posterolateral arthrodesis, L4, L5, S1. 6. Incidental durotomy with durotomy repair. 7. Use of autologous and allograft expansion for the posterolateral arthrodesis , L4, L5, S1. ANESTHESIA: General. ANTIBIOTICS GIVEN: Vancomycin 1 g, clindamycin 900 mg due to PENICILLIN ALLERGY. Imaging was available for intraoperative evaluation. BLOOD LOSS: About 600 mL. INDICATION: Patient correctly identified, brought to the operating room, placed prone on a Freddy table. Lumbar spine was prepped and draped with a window drape from the top of the original spinal wound to the lumbosacral junction. All appropriate bony points were padded and strict attention to eyes and that no pressure on the eyes and the brachial plexus free. A timeout was called. The patient has intractable pain down the right lower extremity, somewhat on the left as well following a previous thoracolumbosacral fusion with lumbopelvic fixation. The imaging revealed the presence of blockage in the canal at L4, L5, S1. DESCRIPTION OF PROCEDURE: The incision was made in the lumbar spine. This was taken centrally down to the area where the fascia was opened appropriately. A midline incision utilized. The fascia was opened. The dissection was taken obliquely to the hardware, exposing the hardware, both left- and right-hand sides. In the fascia, a 3 x 3 cm mass was encountered. In my mind, this is possibly a pyogenic granuloma. This was resected. The appropriate tissues were opened, held with retractors. The vertebral canal was sealed with thick, fibrous tissue. In order to get into this, the plane between the bone bed and the actual dura using a curette, the margin and junction point of the dura was freed off the lateral wall of the vertebral canal. The vertebral canal was then imploded inwards in order to achieve complete freeing of the dura itself. The rods between L2 and L3 were cut with pepper cutter. The L3, L4, L5, S1, and lumbopelvic screws were all removed. The infusion mass was inspected and found to have a solid fusion, albeit it has been approximately 1 year since her previous surgery. It was noted that there was still incomplete incorporation of the old bone graft material, and the bone graft material was augmented with the expansion with autograft and allograft. Autograft achieved by simply cutting up the bone appropriately. This was bone that was resected by imploding the bone inwards in towards the canal. The theca remained intact throughout. The small durotomy was tested after a 4-0 Nurolon repair and found to be completely sealed. The challenge here was at the L4 and L4 nerve roots which were blocked up completely by bone which was in the vertebral canal. With great difficulty, using osteotomes and maneuvering carefully around the nerve roots and the theca itself, painstakingly, bit by bit, the bone was resected off the actual nerve roots as well as out of the vertebral canal to free the canal completely, so we could pass [place] instruments underneath the nerve roots appropriately, having freed this completely. These nerves were completely trapped, but once completed, were now completely free. No neuromonitoring abnormality occurred in doing this. The wounds were thoroughly lavaged throughout the procedure. The dural leak was tested at a number of occasions with 30-40 centimeters of water Valsalva maneuvers, which revealed the presence of a sealed repair, but I elected to use some Surgicel and fibrin glue to augment the repair appropriately. The posterolateral arthrodesis was to enhance what appeared to be fused, but what still appeared to be flimsy. No further instrumentation of the lumbopelvic area performed. The wounds were closed as follows: Muscles 1 Vicryl, fascia 1 Vicryl, subcutaneous 1 and 2-0 Vicryl, skin 3-0 Monocryl with Steri-Strips. This achieved a 20-cm complex wound closure. No complications excepting the dural tear. Hopefully, this will alleviate her very complex problem, that is bony and disk blockage of the canal with reactive bone formation adding to this problem. MD JOE Buenrostro/[id number] MTDD
--- NOTE | 2018-06-19 23:59 | CONSULT ---
Consultation: REQUESTING PROVIDER: Dr. Kitchen CONSULT REQUEST: We have been asked to medically evaluate this patient for s/p Spinal Surgery. HISTORY OF PRESENT ILLNESS: Patient is a 72 year old female with a PMHx of HTN, IDDMII, Systolic CHF, Atrial Fibrillation, DVT on Xarelto, RA, Chronic back pain with multiple spinal surgeries who was sent to the hospital by her surgeon for admission due to progressive neurological weakness. CT myelogram done which revealed hardware impinging on the nerves causing weakness and numbness of the right lower extremity. Patient admitted for medical clearance before Removal of spinal hardware and revision decompression on lumbar sacral spine. Patient is now s/p 1. Removal of hardware right L4-S1. 2. Inspection of fusion mass. 3. Pedicle subtraction osteotomy right L4 & L5. 4. Revision laminectomy right L4, L5. 5. Right L4-L5 foraminotomy & neurotomy. 6. Bone autograft. 7. Bone allograft. 8. Bone marrow aspiration with EBL of 500cc with fluid resuscitation of 2.5 Liters and no introperative complications. Patient admitted to ICU for post-operative monitoring and management. Patient otherwise, denies any chest pain, palpitations, shortness of breath, fever, chills, nausea, vomiting, abdominal pain, headaches, dizziness, dysuria, hematuria. 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 . Lives with family Smoking: Denies Alcohol: Denies Drugs: Denies REVIEW OF SYSTEMS: CONSTITUTIONAL: Absent: fever, chills, diaphoresis, generalized weakness, malaise, loss of appetite, weight change HEENT: Absent: rhinorrhea, nasal congestion, throat pain, throat swelling, difficulty swallowing, mouth swelling, ear pain, eye pain, visual changes CARDIOVASCULAR: Absent: chest pain, syncope, palpitations, irregular heart rate, lightheadedness , peripheral edema RESPIRATORY: Absent: cough, shortness of breath, dyspnea with exertion, orthopnea, wheezing, stridor, hemoptysis GASTROINTESTINAL: Absent: abdominal pain, abdominal distension, nausea, vomiting, diarrhea, constipation, melena, hematochezia GENITOURINARY: Absent: dysuria, frequency, urgency, hesitancy, hematuria, flank pain, genital pain MUSCULOSKELETAL: Back pain, RLE weakness Absent: myalgia, arthralgia, joint swelling, neck pain SKIN: Absent: rash, itching, pallor HEMATOLOGIC/IMMUNOLOGIC: Absent: easy bleeding, easy bruising, lymphadenopathy, frequent infections ENDOCRINE: Absent: unexplained weight gain, unexplained weight loss, heat intolerance, cold intolerance NEUROLOGIC: Absent: headache, focal weakness or paresthesias, dizziness, unsteady gait, seizure, mental status changes, bladder or bowel incontinence PSYCHIATRIC: Absent: anxiety, depression, suicidal or homicidal ideation, hallucinations. PHYSICAL EXAMINATION Vital Signs - 24 hr 06/19/18 06/19/18 06/19/18 06:00 09:00 10:24 Temperature 98.2 F 98.8 F Pulse Rate 80 85 Respiratory 18 20 Rate Blood Pressure 141/65 135/63 O2 Sat by Pulse 100 Oximetry (%) 06/19/18 06/19/18 06/19/18 17:37 17:55 18:10 Temperature 97.6 F Pulse Rate 82 82 73 Respiratory 16 18 18 Rate Blood Pressure 116/96 143/98 123/72 O2 Sat by Pulse 95 95 97 Oximetry (%) 06/19/18 06/19/18 06/19/18 18:25 18:40 19:10 Temperature 10 F L Pulse Rate 74 68 78 Respiratory 18 18 18 Rate Blood Pressure 130/66 128/48 L 135/63 O2 Sat by Pulse 100 100 100 Oximetry (%) 06/19/18 06/19/18 06/19/18 19:25 19:40 19:55 Temperature Pulse Rate 66 69 65 Respiratory 22 H 18 18 Rate Blood Pressure 137/73 153/69 126/66 O2 Sat by Pulse 100 100 99 Oximetry (%) 06/19/18 06/19/18 06/19/18 20:10 20:25 20:40 Temperature Pulse Rate 63 64 73 Respiratory 18 16 16 Rate Blood Pressure 118/69 125/85 119/84 O2 Sat by Pulse 96 94 L 100 Oximetry (%) 06/19/18 06/19/18 06/19/18 20:55 21:10 21:25 Temperature Pulse Rate 73 66 75 Respiratory 16 14 16 Rate Blood Pressure 119/84 143/71 136/88 O2 Sat by Pulse 100 100 100 Oximetry (%) 06/19/18 06/19/18 06/19/18 21:40 21:55 22:10 Temperature 98.1 F Pulse Rate 75 72 72 Respiratory 18 14 14 Rate Blood Pressure 136/88 134/68 127/63 O2 Sat by Pulse 100 100 100 Oximetry (%) 06/19/18 23:07 Temperature Pulse Rate Respiratory Rate Blood Pressure O2 Sat by Pulse 99 Oximetry (%) GENERAL: Awake, alert, and fully oriented, in no acute distress. HEAD: Normal with no signs of trauma. EYES: Pupils equal, round and reactive to light, extraocular movements intact, sclera anicteric, conjunctiva clear. EARS, NOSE, THROAT: Oropharynx clear without exudates. Moist mucous membranes. NECK: (-) lymphadenopathy, JVD, or masses. LUNGS: Breath sounds equal, clear to auscultation bilaterally. No wheezes, and no crackles. No accessory muscle use. HEART: Regular rate and rhythm, normal S1 and S2 without murmur, rub or gallop. ABDOMEN: Soft, obese, nontender, not distended, normoactive bowel sounds, no guarding, no rebound, no masses. MUSCULOSKELETAL: Limited range of motion due to recent surgery. UPPER EXTREMITIES: No peripheral edema. LOWER EXTREMITIES: No peripheral edema. NEUROLOGICAL: Cranial nerves II-XII intact. Normal speech. RLE weakness. Motor strength 5/5 in right LE 1/5 in LE. Sensory intact bilaterally. PSYCHIATRIC: Cooperative. Good eye contact. Appropriate mood and affect. SKIN: Warm, dry, normal turgor, no rashes or lesions noted. DRAINS: Galan in place Laboratory Results - last 24 hr 06/18/18 06/18/18 06/19/18 11:09 11:11 06:36 Sodium Potassium Chloride Carbon Dioxide Anion Gap BUN Creatinine Creat Clearance w eGFR POC Glucometer 345 336 242 Random Glucose Calcium Blood Type Antibody Screen Crossmatch IS Only 06/19/18 06/19/18 06/19/18 10:40 11:35 11:46 Sodium 135 L Potassium 4.9 Chloride 100 Carbon Dioxide 28 Anion Gap 6 L BUN 26 H Creatinine 0.8 Creat Clearance w eGFR > 60 POC Glucometer 293 Random Glucose 269 H Calcium 8.6 Blood Type O POSITIVE Antibody Screen Negative Crossmatch IS Only See Detail 06/19/18 06/19/18 15:00 19:24 Sodium Potassium Chloride Carbon Dioxide Anion Gap BUN Creatinine Creat Clearance w eGFR POC Glucometer 330 Random Glucose Calcium Blood Type Antibody Screen Crossmatch IS Only See Detail Active Medications Generic Name Dose Route Start Last Admin Trade Name Freq PRN Reason Stop Dose Admin Acetaminophen 1,000 mg 06/20/18 02:00 Ofirmev Injection - IVPB 06/21/18 10:01 Q8H [facility] Carvedilol 25 mg 06/19/18 22:00 Coreg - PO BID [facility] Chlorhexidine Gluconate 1 applic 06/19/18 22:00 Hibiclens For Decolonization - TP HS [facility] Cyclobenzaprine HCl 10 mg 06/20/18 10:00 Flexeril - PO DAILY [facility] Diphenhydramine HCl 12.5 mg 06/19/18 18:10 Benadryl Injection - IVPUSH ONCE PRN FOR [facility]CHING Docusate Sodium 100 mg 06/19/18 18:10 Colace - PO BID PRN CONSTIPATION Fentanyl 50 mcg 06/19/18 17:57 06/19/18 17:55 Sublimaze Injection - IVPUSH 06/20/18 03:00 50 mcg [id number] PRN Administration PAIN-PACU ORDER X 4 DOSES ONLY Gabapentin 300 mg 06/19/18 22:00 Neurontin - PO BID [facility] Hydromorphone HCl 10 mg 06/19/18 18:10 06/19/18 19:25 Dilaudid [employer] - ATTENDING PSYCHIATRIST 06/26/18 17:53 0.4 mg ATTENDING PSYCHIATRIST [facility] Administration Protocol Lactated Ringer's 1,000 mls @ 100 mls/hr 06/19/18 18:10 06/19/18 18:10 Lactated Ringers Solution IV 100 mls/hr ASDIR [facility] Administration Insulin Aspart 1 vial 06/19/18 22:00 Novolog Vial Sliding Scale - SQ ACHS [facility] Protocol Insulin Detemir 10 units 06/19/18 22:00 Levemir Vial SQ HS [facility] Lisinopril 5 mg 06/20/18 10:00 Prinivil PO DAILY [facility] Mupirocin 1 applic 06/19/18 22:00 Bactroban Ointment (For Decolonization) - NS 06/24/18 21:59 BID LISA Ondansetron HCl 4 mg 06/19/18 18:10 Zofran Injection IVPUSH Q6H PRN NAUSEA AND/OR VOMITING Ondansetron HCl 4 mg 06/19/18 18:10 Zofran Injection IVPUSH 06/20/18 03:00 Q4H PRN NAUSEA AND/OR VOMITING Torsemide 50 mg 06/20/18 10:00 Demadex - PO DAILY LISA Zolpidem Tartrate 5 mg 06/19/18 22:00 Ambien - PO HS PRN INSOMNIA ASSESSMENT/PLAN: Patient is a 72 year old female who was sent to the hospital by her surgeon for admission due to progressive neurological weakness and was found to have hardware impinging on the nerves causing weakness and numbness of the right lower extremity. Patient now s/p Spinal Surgery and admitted to ICU for further monitoring and management. SURGERY #Removal of hardware right L4-S1. 2. Inspection of fusion mass. 3. Pedicle subtraction osteotomy right L4 & L5. 4. Revision laminectomy right L4, L5. 5. Right L4-L5 foraminotomy & neurotomy. 6. Bone autograft. 7. Bone allograft. 8. Bone marrow aspiration -POD#0 -Pain control with Dilaudid ATTENDING PSYCHIATRIST, fentanyl, neurontin, Tylenol, and Flexeril -Strict bed rest with head of bed FLAT x72hrs. -Drain on gravity with no self suction, as per surgery -NPO until flatus -Mechanical DVT with SCD's -Incentive Spirometer -Strict I&O's with drain monitoring. Monitor Creatinine -PT/OT/Rehab when ambulating and OOB -WBAT B/L LE -Maintain galan and may remove once ambulating CARDIOLOGY #Atrial Fibrillation -Currently rate controlled -Continue Coreg 25mg BID -Continue cardiac monitoring #Systolic CHF -Currently not in acute exacerbation -Continue Torsemide 50mg daily -Monitor I&O's and creatinine #HTN -Continue home medication Coreg 25mg BID -Continue home medication Lisinopril 5mg daily -Continue to monitor BP ENDOCRINE #IDDMII -BGM -ISS #RA -Continue Leflunomide daily F/E/N -LR @100cc/hr -Monitor Electrolytes -NPO PROPHYLAXIS -SCD's for DVT -No GI required DISPOSITION -Full code -ICU monitoring Dispo: We will continue to follow the patient. Thank you for this consultative opportunity. Hyacinth Johns [id number] Visit type - Emergency Visit Emergency Visit: Yes ED Registration Date: 06/16/18 Care time: The patient presented to the Emergency Department on the above date and was hospitalized for further evaluation of their emergent condition. - New Patient This patient is new to me today: Yes Date on this admission: 06/19/18 - Critical Care Critical Care patient: Yes Total Critical Care Time (in minutes): 45 Critical Care Statement: The care of this patient involved high complexity decision making to prevent further life threatening deterioration of the patient 's condition and/or to evaluate & treat vital organ system(s) failure or risk of failure.
[2018-06-20] MEDS: GABAPENTIN 300 MG CAPSULE (FP) PO SCH ×3 (00:09→21:28)
[2018-06-20] MEDS: CARVEDILOL 25 MG TABLET (FP) PO SCH ×3 (00:09→21:28)
[2018-06-20] MEDS: INSULIN SLIDING SCALE (NOVOLOG) 1 VIAL SQ SCH ×5 (00:10→21:30)
[2018-06-20] MEDS: INSULIN (LEVEMIR) 100 UNITS/ML UNITS SQ SCH ×2 (00:10→21:28)
[2018-06-20] MEDS: MUPIROCIN 2% TOPICAL OINTMENT FOR DECOLONIZATION NS SCH ×3 (01:27→21:29)
[2018-06-20] MEDS: CHLORHEXIDINE GLUCONATE 4% CLEANSER FOR DECOLONIZATION TP SCH ×2 (01:27→21:28)
[2018-06-20] MEDS: CLINDAMYCIN 900 MG PREMIX IVPB 900 MG/50 ML BAG IVPB SCH ×2 (01:28→10:58)
[2018-06-20] MEDS: LACTATED RINGERS SOLUTION 1,000 ML IV SCH (01:28)
[2018-06-20] MEDS: ACETAMINOPHEN 1000 MG/100 ML VIAL (NON FORMULARY) IVPB SCH ×3 (02:49→18:25)
[2018-06-20] MEDS: ZOLPIDEM TARTRATE 5 MG TABLET PO PRN ×2 (03:15→23:02)
[2018-06-20 05:53] LABS: HEMATOCRIT 32.5 % (32.4-45.2); HEMOGLOBIN 10.5 GM/dL (10.7-15.3); MCH 29.6 pg (25.7-33.7); MCHC 32.4 g/dl (32.0-36.0); MEAN CELL VOLUME 91.4 fl (80-96); MEAN PLT VOLUME 7.8 fl (7.5-11.1); PLATELET COUNT 220 K/MM3 (134-434); RBC 3.56 M/mm3 (3.60-5.2); RDW 14.1 % (11.6-15.6); WHITE BLOOD COUNT 8.7 K/mm3 (4.0-10.0)
[2018-06-20 06:17] LABS: ANION GAP 3 MMOL/L (8-16); BLOOD UREA NITROGEN 23 mg/dL (7-18); CALCIUM 8.5 mg/dL (8.5-10.1); CHLORIDE 102 mmol/L (98-107); CO2 28 mmol/L (21-32); CREATININE 0.8 mg/dL (0.55-1.3); GLUCOSE,RANDOM 238 mg/dL (74-106); MAGNESIUM 2.1 mg/dL (1.8-2.4); PHOSPHOROUS 4.4 mg/dL (2.5-4.9); POTASSIUM 5.9 mmol/L (3.5-5.1); SODIUM 133 mmol/L (136-145)
[2018-06-20] MEDS ORDERED: SODIUM POLYSTYRENE SULFONATE 15 GM/60 ML BOTTLE PO ONE (08:45)
[2018-06-20] MEDS ORDERED: DEXTROSE 50%-WATER - 25 GM/50 ML VIAL IVPUSH ONE (09:00)
[2018-06-20] MEDS ORDERED: INSULIN REGULAR HUMAN 100 UNITS/ML *VIAL IVPUSH ONE (09:00)
[2018-06-20] MEDS ORDERED: SODIUM CHLORIDE 1,000 ML IV SCH (10:30)
[2018-06-20] MEDS: CYCLOBENZAPRINE HCL 10 MG TABLET (FP) PO SCH (10:58)
[2018-06-20] MEDS ORDERED: INSULIN SLIDING SCALE (NOVOLOG) 1 VIAL SQ SCH (11:00)
[2018-06-20] MEDS ORDERED: DEXTROSE 50%-WATER 25 GM/50 ML DISP.SYRIN ONE (11:03)
--- NOTE | 2018-06-20 11:32 | PN ---
Physical Exam: SUBJECTIVE: Patient seen and examined at bedside. no acute events overnight; patient is now POD #1- her pain is well controlled with dilaudid SPINNING MACHINE OPERATOR, however, she does not feel any changes in her LE weakness- she feels her right lower extremity is still feeling the exact same. she has not passed flatus as of yet- she denies any CP/SOB/N/V fevers or chills. OBJECTIVE: Vital Signs Period Temp Pulse Resp BP Sys/Marcelo Pulse Ox Last 24 Hr 10 F-98.2 F 63-88 11-22 110-165/48-98 94-100 GENERAL: The patient is awake, alert, laying flat EYES: no scleral icterus. NECK: No JVD, no lymphadenopathy appreciated LUNGS: anteriorly: CTA B/L no rales, rhonchi or wheezing HEART: Regular rate and rhythm, S1, S2 without murmur, rub or gallop. ABDOMEN: Soft, nontender, nondistended, normoactive bowel sounds, no guarding, no rebound, no hepatosplenomegaly, no masses. EXTREMITIES: 2+ pulses, warm, well-perfused, no edema. NEUROLOGICAL: Cranial nerves II through XII grossly intact. Normal speech, gait not observed. PSYCH: Normal mood, normal affect. SKIN: Warm, dry, normal turgor, no rashes or lesions noted Laboratory Results - last 24 hr 06/19/18 06/19/18 06/19/18 11:35 11:46 15:00 WBC RBC Hgb Hct MCV MCH MCHC RDW Plt Count MPV Sodium Potassium Chloride Carbon Dioxide Anion Gap BUN Creatinine Creat Clearance w eGFR POC Glucometer 293 Random Glucose Calcium Phosphorus Magnesium Blood Type O POSITIVE Antibody Screen Negative Crossmatch IS Only See Detail See Detail 06/19/18 06/20/18 06/20/18 19:24 05:30 05:30 WBC 8.7 RBC 3.56 L Hgb 10.5 L Hct 32.5 MCV 91.4 MCH 29.6 MCHC 32.4 RDW 14.1 Plt Count 220 MPV 7.8 Sodium 133 L Potassium 5.9 H Chloride 102 Carbon Dioxide 28 Anion Gap 3 L BUN 23 H Creatinine 0.8 Creat Clearance w eGFR > 60 POC Glucometer 330 Random Glucose 238 H Calcium 8.5 Phosphorus 4.4 Magnesium 2.1 Blood Type Antibody Screen Crossmatch IS Only Active Medications Generic Name Dose Route Start Last Admin Trade Name Freq PRN Reason Stop Dose Admin Acetaminophen 1,000 mg 06/20/18 02:00 06/20/18 02:49 Ofirmev Injection - IVPB 06/21/18 10:01 1,000 mg Q8H LISA Administration Carvedilol 25 mg 06/19/18 22:00 06/20/18 10:59 Coreg - PO 25 mg BID LISA Administration Chlorhexidine Gluconate 1 applic 06/19/18 22:00 06/20/18 01:27 Hibiclens For Decolonization - TP 1 applic HS LISA Administration Cyclobenzaprine HCl 10 mg 06/20/18 10:00 06/20/18 10:58 Flexeril - PO 10 mg DAILY LISA Administration Diphenhydramine HCl 12.5 mg 06/19/18 18:10 Benadryl Injection - IVPUSH ONCE PRN FOR ITCHING Docusate Sodium 100 mg 06/19/18 18:10 Colace - PO BID PRN CONSTIPATION Gabapentin 300 mg 06/19/18 22:00 06/20/18 10:58 Neurontin - PO 300 mg BID LISA Administration Hydromorphone HCl 10 mg 06/19/18 18:10 06/19/18 19:25 Dilaudid Casting Wheel Operator Helper - SPINNING MACHINE OPERATOR 06/26/18 17:53 0.4 mg SPINNING MACHINE OPERATOR [facility] Administration Protocol Sodium Chloride 1,000 mls @ 100 mls/hr 06/20/18 10:30 Normal Saline - IV ASDIR [facility] Insulin Aspart 1 vial 06/19/18 22:00 06/20/18 06:57 Novolog Vial Sliding Scale - SQ Not Given ACHS [facility] Protocol Insulin Detemir 10 units 06/19/18 22:00 06/20/18 00:10 Levemir Vial SQ 10 units HS [facility] Administration Lisinopril 5 mg 06/20/18 10:00 Prinivil PO DAILY [facility] Mupirocin 1 applic 06/19/18 22:00 06/20/18 10:59 Bactroban Ointment (For Decolonization) - NS 06/24/18 21:59 1 applic BID LISA Administration Ondansetron HCl 4 mg 06/19/18 18:10 Zofran Injection IVPUSH Q6H PRN NAUSEA AND/OR VOMITING Torsemide 50 mg 06/20/18 10:00 Demadex - PO DAILY [facility] Zolpidem Tartrate 5 mg 06/19/18 22:00 06/20/18 03:15 Ambien - PO 5 mg HS PRN Administration INSOMNIA ASSESSMENT/PLAN: 72 y/o female with PMH of HTN, DM, CHF, multiple spine and hip surgeries, RA presents with worsening neurological lower extremity weakness 2/2 chronic back pain and hardware impinging on nerves, #POD #1: L4-S1 inspection of fusion mass, pedicle subtraction, R osteotomy L4- L5 revision, L4 laminectomy EBL from surgery around 500ml -patient needs to lay flat for 72 hours -no chemical PPX for 72 hrs -dilaudid SPINNING MACHINE OPERATOR pump -zofran PRN for nausea -flexeril, percocet -NPO until patient passes flatus -OOB; PT eval today #Hyperkalemia patients potassium was elevated at 5.9 this am -EKG ordered -given insulin, D50, kayexalate -repeat BMP #DM -holding oral diabetic agents -ISS -BGMS ACHS # CHF -holding torsemide until patient passes flatus and begins to eat -echo done: ef 50-55%; no regional wall motion abnormlaities; mild MR #Afib -c/w atenolol and coreg daily -Dr. Pastrana was consultes; f/u recs #HTN -c/w lisinopril 5mg daily #RA -c/w leflunomide daily F/E/N not on fluids monitor electrolytes accordingly diabetic/low sodium diet DVT PPX SCDS Problem List - Problems (1) Back pain Code(s): M54.9 - DORSALGIA, UNSPECIFIED (2) Acute renal failure Code(s): N17.9 - ACUTE KIDNEY FAILURE, UNSPECIFIED Qualifiers: Qualified Code(s): N17.9 - Acute kidney failure, unspecified Visit type - Emergency Visit Emergency Visit: Yes ED Registration Date: 06/16/18 Care time: The patient presented to the Emergency Department on the above date and was hospitalized for further evaluation of their emergent condition. - New Patient This patient is new to me today: No - Critical Care Critical Care patient: No
--- NOTE | 2018-06-20 11:48 | PN ---
Teaching Attending Note Name of Resident: Doug Engle ATTENDING PHYSICIAN STATEMENT I saw and evaluated the patient. I reviewed the resident's note and discussed the case with the resident. I agree with the resident's findings and plan as documented. SUBJECTIVE: Pt seen and examined in the ICU. Pain relatively controlled. No nausea or vomiting. No fevers or chills. +flatus and hungry. OBJECTIVE: Vital Signs Period Temp Pulse Resp BP Sys/Marcelo Pulse Ox Last 24 Hr 10 F-98.2 F 63-88 06-29 110-165/48-98 94-100 Intake & Output 06/17/18 06/18/18 06/19/18 06/20/18 23:59 23:59 23:59 23:59 Intake Total 275 004 1349 950 Output Total 1030 30 Balance 935 084 3047 920 Weight 97.477 kg 97.613 kg 98.625 kg 99.5 kg Gen: NAD at rest Heart: RRR Lung: decreased breath sounds at the bases Abd: soft, nontender Ext: no edema CBC, BMP 06/20/18 05:30 06/20/18 05:30 Active Medications Acetaminophen (Ofirmev Injection -) 1,000 mg IVPB Q8H [facility] Stop: 06/21/18 10:01 Last Admin: 06/20/18 02:49 Dose: 1,000 mg Carvedilol (Coreg -) 25 mg PO BID [facility] Last Admin: 06/20/18 10:59 Dose: 25 mg Chlorhexidine Gluconate (Hibiclens For Decolonization -) 1 applic TP HS [facility] Last Admin: 06/20/18 01:27 Dose: 1 applic Cyclobenzaprine HCl (Flexeril -) 10 mg PO DAILY [facility] Last Admin: 06/20/18 10:58 Dose: 10 mg Diphenhydramine HCl (Benadryl Injection -) 12.5 mg IVPUSH ONCE PRN PRN Reason: FOR ITCHING Docusate Sodium (Colace -) 100 mg PO BID PRN PRN Reason: CONSTIPATION Gabapentin (Neurontin -) 300 mg PO BID [facility] Last Admin: 06/20/18 10:58 Dose: 300 mg Hydromorphone HCl (Dilaudid Motor Room Controller -) 10 mg DEDICATED LOCAL TRUCK DRIVER DEDICATED LOCAL TRUCK DRIVER [facility]; Protocol Stop: 06/26/18 17:53 Last Admin: 06/19/18 19:25 Dose: 0.4 mg Sodium Chloride (Normal Saline -) 1,000 mls @ 100 mls/hr IV ASDIR [facility] Insulin Aspart (Novolog Vial Sliding Scale -) 1 vial SQ ACHS [facility]; Protocol Last Admin: 06/20/18 06:57 Dose: Not Given Insulin Detemir (Levemir Vial) 10 units SQ HS [facility] Last Admin: 06/20/18 00:10 Dose: 10 units Lisinopril (Prinivil) 5 mg PO DAILY [facility] Mupirocin (Bactroban Ointment (For Decolonization) -) 1 applic NS BID [facility] Stop: 06/24/18 21:59 Last Admin: 06/20/18 10:59 Dose: 1 applic Ondansetron HCl (Zofran Injection) 4 mg IVPUSH Q6H PRN PRN Reason: NAUSEA AND/OR VOMITING Torsemide (Demadex -) 50 mg PO DAILY [facility] Zolpidem Tartrate (Ambien -) 5 mg PO HS PRN PRN Reason: INSOMNIA Last Admin: 06/20/18 03:15 Dose: 5 mg ASSESSMENT AND PLAN: Lumbar Spinal Stenosis with Right L5 Radiculopathy s/p SHANIA L4-S1/Revision Laminectomy Right L4, L5/Right L4-L5 foraminotomy & neurotomy LV Systolic Dysfunction Atrial Fibrillation Acute Kidney Injury resolved HTN DM RA - pain control - incentive spirometry - bowel regimen - PO as tolerated - d/c galan when OOB - resume anticoagulation when ok with surgery - DVT prophylaxis - disposition per surgery
--- NOTE | 2018-06-20 11:52 | PN ---
Physical Exam: SUBJECTIVE: Patient seen and examined in the ICU. POD #1- her pain is well controlled with dilaudid GAS PLANT SPECIALIST, however, she does not feel any changes in her LE weakness- she feels her right lower extremity is still feeling the exact same. no complaints. passing flatus. denies sob, cp, n/v/d, numbness tingling, weakness, saddle anesthesia, incontinence OBJECTIVE: Vital Signs Period Temp Pulse Resp BP Sys/Marcelo Pulse Ox Last 24 Hr 10 F-98.2 F 63-88 11-22 110-165/48-98 94-100 GENERAL: AOX3 NAD HEAD: NCAT EYES: PERRL, extraocular movements intact, sclera anicteric, conjunctiva clear. No ptosis. ENT: MMM NECK: Trachea midline, full range of motion, supple. LUNGS: CTAB HEART: RRR, S1, S2 without murmur, rub or gallop. ABDOMEN: Soft, NTND, normoactive bowel sounds, no guarding, no rebound EXTREMITIES: 2+ pulses, warm, well-perfused, no edema. NEUROLOGICAL: Cranial nerves II through XII grossly intact. Normal speech, gait not observed. PSYCH: Normal mood, normal affect. SKIN: Warm, dry, normal turgor, no rashes or lesions noted Laboratory Results - last 24 hr 06/19/18 06/19/18 06/19/18 11:35 11:46 15:00 WBC RBC Hgb Hct MCV MCH MCHC RDW Plt Count MPV Sodium Potassium Chloride Carbon Dioxide Anion Gap BUN Creatinine Creat Clearance w eGFR POC Glucometer 293 Random Glucose Calcium Phosphorus Magnesium Blood Type O POSITIVE Antibody Screen Negative Crossmatch IS Only See Detail See Detail 06/19/18 06/20/18 06/20/18 19:24 05:30 05:30 WBC 8.7 RBC 3.56 L Hgb 10.5 L Hct 32.5 MCV 91.4 MCH 29.6 MCHC 32.4 RDW 14.1 Plt Count 220 MPV 7.8 Sodium 133 L Potassium 5.9 H Chloride 102 Carbon Dioxide 28 Anion Gap 3 L BUN 23 H Creatinine 0.8 Creat Clearance w eGFR > 60 POC Glucometer 330 Random Glucose 238 H Calcium 8.5 Phosphorus 4.4 Magnesium 2.1 Blood Type Antibody Screen Crossmatch IS Only Active Medications Generic Name Dose Route Start Last Admin Trade Name Freq PRN Reason Stop Dose Admin Acetaminophen 1,000 mg 06/20/18 02:00 06/20/18 02:49 Ofirmev Injection - IVPB 06/21/18 10:01 1,000 mg Q8H LISA Administration Carvedilol 25 mg 06/19/18 22:00 06/20/18 10:59 Coreg - PO 25 mg BID [facility]ISA Administration Chlorhexidine Gluconate 1 applic 06/19/18 22:00 06/20/18 01:27 Hibiclens For Decolonization - TP 1 applic HS [facility] Administration Cyclobenzaprine HCl 10 mg 06/20/18 10:00 06/20/18 10:58 Flexeril - PO 10 mg DAILY [facility] Administration Diphenhydramine HCl 12.5 mg 06/19/18 18:10 Benadryl Injection - IVPUSH ONCE PRN FOR ITCHING Docusate Sodium 100 mg 06/19/18 18:10 Colace - PO BID PRN CONSTIPATION Gabapentin 300 mg 06/19/18 22:00 06/20/18 10:58 Neurontin - PO 300 mg BID [facility] Administration Hydromorphone HCl 10 mg 06/19/18 18:10 06/19/18 19:25 Dilaudid Range Aide - GAS PLANT SPECIALIST 06/26/18 17:53 0.4 mg GAS PLANT SPECIALIST [facility] Administration Protocol Sodium Chloride 1,000 mls @ 100 mls/hr 06/20/18 10:30 Normal Saline - IV ASDIR [facility] Insulin Aspart 1 vial 06/19/18 22:00 06/20/18 06:57 Novolog Vial Sliding Scale - SQ Not Given ACHS [facility] Protocol Insulin Detemir 10 units 06/19/18 22:00 06/20/18 00:10 Levemir Vial SQ 10 units HS [facility] Administration Lisinopril 5 mg 06/20/18 10:00 Prinivil PO DAILY [facility] Mupirocin 1 applic 06/19/18 22:00 06/20/18 10:59 Bactroban Ointment (For Decolonization) - NS 06/24/18 21:59 1 applic BID [facility] Administration Ondansetron HCl 4 mg 06/19/18 18:10 Zofran Injection IVPUSH Q6H PRN NAUSEA AND/OR VOMITING Torsemide 50 mg 06/20/18 10:00 Demadex - PO DAILY [facility] Zolpidem Tartrate 5 mg 06/19/18 22:00 06/20/18 03:15 Ambien - PO 5 mg HS PRN Administration INSOMNIA ASSESSMENT/PLAN: 72 yo F who PMHx of HTN, IDDMII, Systolic CHF, Atrial Fibrillation, DVT on Xarelto, RA, Chronic back pain with multiple spinal surgeries, was sent to the hospital by her surgeon for admission due to progressive neurological weakness and was found to have hardware impinging on the nerves causing weakness and numbness of the right lower extremity. Patient now s/p Spinal Surgery and admitted to ICU for further monitoring and management. SURGERY Removal of hardware right L4-S1. 2. Inspection of fusion mass. 3. Pedicle subtraction osteotomy right L4 & L5. 4. Revision laminectomy right L4, L5. 5. Right L4-L5 foraminotomy & neurotomy. 6. Bone autograft. 7. Bone allograft. 8. Bone marrow aspiration -POD#1 -Pain control with Dilaudid GAS PLANT SPECIALIST, fentanyl, neurontin, Tylenol, and Flexeril -Drain on gravity with no self suction, as per surgery -pt w/ flatus advance diet as tolerated -Mechanical DVT with SCD's -Incentive Spirometer -Strict I&O's with drain monitoring. Monitor Creatinine -PT/OT/Rehab when ambulating and OOB -WBAT B/L LE -Maintain galan and may remove once ambulating CARDIOLOGY Atrial Fibrillation -Currently rate controlled -C/w Coreg 25mg BID -C/w cardiac monitoring Systolic CHF -Currently not in acute exacerbation -C/w Torsemide 50mg daily -Monitor I&O's and creatinine -echo done: ef 50-55%; no regional wall motion abnormlaities; mild MR HTN -Continue home medication Coreg 25mg BID -Continue home medication Lisinopril 5mg daily -monitor BP ENDOCRINE IDDMII -BGM -ISS RA -C/w Leflunomide daily FEN -NS @100cc/hr -replete prn. potassium was elevated at 5.9 this am, EKG ordered , given insulin, D50, kayexalate -pt w/ flatus, advance diet as tolerated Ppx -SCD's for DVT -No GI required DISPO -Full code -ICU monitoring Visit type - Emergency Visit Emergency Visit: Yes ED Registration Date: 06/16/18 Care time: The patient presented to the Emergency Department on the above date and was hospitalized for further evaluation of their emergent condition. - New Patient This patient is new to me today: Yes Date on this admission: 06/20/18 - Critical Care Critical Care patient: Yes Total Critical Care Time (in minutes): 38 Critical Care Statement: The care of this patient involved high complexity decision making to prevent further life threatening deterioration of the patient 's condition and/or to evaluate & treat vital organ system(s) failure or risk of failure.
[2018-06-20] MEDS: TORSEMIDE 100 MG TABLET PO SCH (12:00)
--- NOTE | 2018-06-20 12:25 | PN ---
Progress Note (short form) - Note Progress Note: s: no cp sob palps dizzy, had spine surgery today o: Vital Signs Period Temp Pulse Resp BP Sys/Marcelo Pulse Ox Last 24 Hr 10 F-98.2 F 63-88 11- 110-165/48-98 94-100 no jvd rrr s1s2 no mrg cta bl nl eff aaox3 abd nt nd pos bs no le e/c/c no jaundice diaphoresis pos dp pt Current Medications Generic Name Dose Route Start Last Admin Trade Name Freq PRN Reason Stop Dose Admin Acetaminophen 1,000 mg 06/20/18 02:00 06/20/18 02:49 Ofirmev Injection - IVPB 06/21/18 10:01 1,000 mg Q8H LISA Administration Carvedilol 25 mg 06/19/18 22:00 06/20/18 10:59 Coreg - PO 25 mg BID [facility] Administration Chlorhexidine Gluconate 1 applic 06/19/18 22:00 06/20/18 01:27 Hibiclens For Decolonization - TP 1 applic HS [facility] Administration Cyclobenzaprine HCl 10 mg 06/20/18 10:00 06/20/18 10:58 Flexeril - PO 10 mg DAILY [facility] Administration Diphenhydramine HCl 12.5 mg 06/19/18 18:10 Benadryl Injection - IVPUSH ONCE PRN FOR ITCHING Docusate Sodium 100 mg 06/19/18 18:10 Colace - PO BID PRN CONSTIPATION Gabapentin 300 mg 06/19/18 22:00 06/20/18 10:58 Neurontin - PO 300 mg BID [facility] Administration Hydromorphone HCl 10 mg 06/19/18 18:10 06/19/18 19:25 Dilaudid Endorsement Clerk - CPR AMBULANCE DRIVER 06/26/18 17:53 0.4 mg CPR AMBULANCE DRIVER [facility] Administration Protocol Sodium Chloride 1,000 mls @ 100 mls/hr 06/20/18 10:30 Normal Saline - IV ASDIR [facility] Insulin Aspart 1 vial 06/19/18 22:00 06/20/18 06:57 Novolog Vial Sliding Scale - SQ Not Given ACHS [facility] Protocol Insulin Detemir 10 units 06/19/18 22:00 06/20/18 00:10 Levemir Vial SQ 10 units HS [facility] Administration Lisinopril 5 mg 06/20/18 10:00 Prinivil PO DAILY [facility] Mupirocin 1 applic 06/19/18 22:00 06/20/18 10:59 Bactroban Ointment (For Decolonization) - NS 06/24/18 21:59 1 applic BID [facility] Administration Ondansetron HCl 4 mg 06/19/18 18:10 Zofran Injection IVPUSH Q6H PRN NAUSEA AND/OR VOMITING Torsemide 50 mg 06/20/18 10:00 Demadex - PO DAILY [facility] Zolpidem Tartrate 5 mg 06/19/18 22:00 06/20/18 03:15 Ambien - PO 5 mg HS PRN Administration INSOMNIA CBC, BMP 06/20/18 05:30 06/20/18 05:30 2 ecg: sr, pvc, nl intervals, no ischemic changes echo 04/2013: nl lv/rv, mild lae, mild mr/tr echo in office 05/09/2017: mild-mod lve, lvef 30-35%, global hk, nl rv size, mild dec rv fcn, mild lae, mod-sev mr echo here 06/01/17: nl lv, nl rv size, mild fernando, sev mr, mild tr, nl rvsp echo 06/2018: nl lv, rv tds, mild mr, nl rvsp mibi 05/2014: no ischemia, mildly reduced lvef cath 2005: normal cors tele: sr a/p: 71 f hx multiple PEs/DVTs s/p ivc filter and on coumadin, dm, hld, htn, sys chf, here with intractable back pain. 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: -nonisch CMP dx'd 03/22 -L/RHC 03/22 with moderately elevated wedge (25) and corresponding elevation in PAPs (50/25); NORMAL CORONARIES -severely reduced cardiac index on that RHC -more recent echo reporting improved lvef -stable vol status, cont home torsemide -cont home bb, lorna HTN: -bp controlled, cont home lorna, bb h/o VTEs (DVTs and PEs): -s/p IVC filter -NOAC held for surgery low back pain/spasm: -chronic pain, s/p prior spine surgeries -now here with intractable pain, s/p repeat spine surgery 06/20
[2018-06-20 12:27] VITALS: BMI 38.7
--- NOTE | 2018-06-20 13:33 | PN ---
Teaching Attending Note Name of Resident: Mar Whiteside ATTENDING PHYSICIAN STATEMENT I saw and evaluated the patient. I reviewed the resident's note and discussed the case with the resident. I agree with the resident's findings and plan as documented. SUBJECTIVE:pain is controlled with RELIGIOUS ACTIVITIES DIRECTOR pump. passing gas. tolerated liquid diet. denies Cp, SOB, fever, chills, N/V/C/D OBJECTIVE: Last Vital Signs Temp Pulse Resp BP Pulse Ox 98.2 F 66 17 115/50 L 99 06/20/18 10:00 06/20/18 12:00 06/20/18 12:00 06/20/18 12:00 06/19/18 23:07 General NAD CV S1 S2 + no murmur/rub/gallop Lungs CTA B/L no wheezing/rales/rhonchi Abdomen soft NT/ND obese back hemovac in place ASSESSMENT AND PLAN: 72 y.o. F w/ PMHx. of HTN, NIDDM, systolic CHF, RA, multiple spine surgeries, multiple hips surgeries, multiple abdominal surgeries, presents with worsening neurological lower extremity weakness 2/2 chronic back pain and hardware impinging on nerves. 1. Lumbar spinal stenosis with radiculopathy-s/p 1. Removal of hardware right L4 -S1. 2. Inspection of fusion mass. 3. Pedicle subtraction osteotomy right L4 & L5. 4. Revision laminectomy right L4, L5. 5. Right L4-L5 foraminotomy & neurotomy. 6. Bone autograft. 7. Bone allograft. 8. Bone marrow aspiration . hemovac in place. passing flatus and diet advanced. lay flat for 24H due to durotomy repair. PT eval tomorrow. possible galan removal tomorrow. hemovac and further recommendations per ortho. pain control 2. Hyperkalemia- s/p insulin and D50. kayxylate given. repeat 3. ELIZABETH- likely pre-renal. now resolved. renal u/s negative for acute pathology. renal on board 4. DM- hold oral agents. ISS and BGM 5. Systolic CHF- no signs of volume overload. will re-start Toresemide once tolerating diet. cardo on board 6. Afib- rate controlled. Xarelto to be held for 72H post-op. 7. RA_ on leflunomide 8. DVT ppx- SCD. hold pharmacologic anticoagulation in light of surgery 9. MICU monitoring. can transfer to floors in AM The care of this patient involved high complexity decision making to prevent further life threatening deterioration of the patient's condition and/or to evaluate & treat vital organ system(s) failure or risk of failure. 38 mins
--- NOTE | 2018-06-20 15:14 | PN ---
Progress Note (short form) - Note Progress Note: Anesthesia postop note 72 y/o F s/p GA for Posterior lumbar revision, labor relations supervisor for pain POD#1, vss, aaox3, pain well controlled on labor relations supervisor, no complaints. No anesthesia complications, continue labor relations supervisor.
[2018-06-20] MEDS ORDERED: PT OWN MED DRAWER 7, Y5N ONE (15:46)
[2018-06-20 16:06] LABS: ANION GAP 9 MMOL/L (8-16); BLOOD UREA NITROGEN 23 mg/dL (7-18); CALCIUM 8.1 mg/dL (8.5-10.1); CHLORIDE 101 mmol/L (98-107); CO2 27 mmol/L (21-32); CREATININE 0.8 mg/dL (0.55-1.3); GLUCOSE,RANDOM 275 mg/dL (74-106); POTASSIUM 4.8 mmol/L (3.5-5.1); SODIUM 137 mmol/L (136-145)
[2018-06-20] MEDS: LISINOPRIL 5 MG TABLET (FP) PO SCH (16:13)
--- NOTE | 2018-06-20 16:21 | EKG ---
Test Reason : Blood Pressure : / mmHG Vent. Rate : 067 BPM Atrial Rate : 067 BPM P-R Int : 182 ms QRS Dur : 084 ms QT Int : 434 ms P-R-T Axes : 054 046 044 degrees QTc Int : 458 ms NORMAL SINUS RHYTHM NORMAL ECG WHEN COMPARED WITH ECG OF 16-JUN-2018 23:39, PREMATURE VENTRICULAR COMPLEXES ARE NO LONGER PRESENT Confirmed by MD Chriss, Hero ([id number]) on 06/20/2018 4:21:38 PM Referred By: Ilsa DELGADO Confirmed By:Hero Banerjee MD
--- NOTE | 2018-06-20 16:56 | PN ---
Progress Note, Physician History of Present Illness: Pt seen and examined at bedside. She is awake and alert. She tolerated surgery. She denies shortness of breath. - Current Medication List Current Medications: Active Medications Acetaminophen (Ofirmev Injection -) 1,000 mg IVPB Q8H [facility] Stop: 06/21/18 10:01 Last Admin: 06/20/18 10:00 Dose: Not Given Carvedilol (Coreg -) 25 mg PO BID [facility] Last Admin: 06/20/18 10:59 Dose: 25 mg Chlorhexidine Gluconate (Hibiclens For Decolonization -) 1 applic TP HS [facility] Last Admin: 06/20/18 01:27 Dose: 1 applic Cyclobenzaprine HCl (Flexeril -) 10 mg PO DAILY [facility] Last Admin: 06/20/18 10:58 Dose: 10 mg Diphenhydramine HCl (Benadryl Injection -) 12.5 mg IVPUSH ONCE PRN PRN Reason: FOR ITCHING Docusate Sodium (Colace -) 100 mg PO BID PRN PRN Reason: CONSTIPATION Gabapentin (Neurontin -) 300 mg PO BID [facility] Last Admin: 06/20/18 10:58 Dose: 300 mg Hydromorphone HCl (Dilaudid Wage Conciliator -) 10 mg PIN DRAFTER OPERATOR PIN DRAFTER OPERATOR [facility]; Protocol Stop: 06/26/18 17:53 Last Admin: 06/19/18 19:25 Dose: 0.4 mg Sodium Chloride (Normal Saline -) 1,000 mls @ 100 mls/hr IV ASDIR [facility] Last Admin: 06/20/18 12:00 Dose: 100 mls/hr Insulin Aspart (Novolog Vial Sliding Scale -) 1 vial SQ [facility]; Protocol Last Admin: 06/20/18 06:57 Dose: Not Given Insulin Detemir (Levemir Vial) 10 units SQ [facility] Last Admin: 06/20/18 00:10 Dose: 10 units Lisinopril (Prinivil) 5 mg PO DAILY [facility] Last Admin: 06/20/18 16:13 Dose: Not Given Mupirocin (Bactroban Ointment (For Decolonization) -) 1 applic NS BID [facility] Stop: 06/24/18 21:59 Last Admin: 06/20/18 10:59 Dose: 1 applic Ondansetron HCl (Zofran Injection) 4 mg IVPUSH Q6H PRN PRN Reason: NAUSEA AND/OR VOMITING Torsemide (Demadex -) 50 mg PO DAILY [facility] Last Admin: 06/20/18 12:00 Dose: 50 mg Zolpidem Tartrate (Ambien -) 5 mg PO HS PRN PRN Reason: INSOMNIA Last Admin: 06/20/18 03:15 Dose: 5 mg - Objective Vital Signs: Vital Signs Temperature 98 F 06/20/18 14:00 Pulse Rate 69 06/20/18 14:00 Respiratory Rate 17 06/20/18 15:20 Blood Pressure 117/54 L 06/20/18 14:00 O2 Sat by Pulse Oximetry (%) 99 06/20/18 15:20 Constitutional: Yes: Calm Eyes: Yes: Conjunctiva Clear HENT: Yes: Atraumatic Cardiovascular: Yes: S1, S2 Respiratory: Yes: CTA Bilaterally Gastrointestinal: Yes: Normal Bowel Sounds, Soft Genitourinary: Yes: WNL Musculoskeletal: Yes: Back Pain, Muscle Weakness Edema: No Neurological: Yes: Oriented Psychiatric: Yes: Oriented Labs: CBC, BMP 06/20/18 05:30 06/20/18 15:00 INR, PTT INR 1.03 (0.83-1.09) 06/17/18 06:50 Problem List - Problems (1) Back pain Code(s): M54.9 - DORSALGIA, UNSPECIFIED Qualifiers: Back pain location: low back pain Chronicity: acute (2) Progressive neurological deficit Code(s): R29.818 - OTHER SYMPTOMS AND SIGNS INVOLVING THE NERVOUS SYSTEM (3) Acute renal failure Code(s): N17.9 - ACUTE KIDNEY FAILURE, UNSPECIFIED Qualifiers: Acute renal failure type: unspecified Qualified Code(s): N17.9 - Acute kidney failure, unspecified Assessment/Plan Current Medications Generic Name Dose Route Start Last Admin Trade Name Freq PRN Reason Stop Dose Admin Acetaminophen 1,000 mg 06/20/18 02:00 06/20/18 10:00 Ofirmev Injection - IVPB 06/21/18 10:01 Not Given Q8H [facility] Carvedilol 25 mg 06/19/18 22:00 06/20/18 10:59 Coreg - PO 25 mg BID [facility] Administration Chlorhexidine Gluconate 1 applic 06/19/18 22:00 06/20/18 01:27 Hibiclens For Decolonization - TP 1 applic HS [facility] Administration Cyclobenzaprine HCl 10 mg 06/20/18 10:00 06/20/18 10:58 Flexeril - PO 10 mg DAILY [facility] Administration Diphenhydramine HCl 12.5 mg 06/19/18 18:10 Benadryl Injection - IVPUSH ONCE PRN FOR ITCHING Docusate Sodium 100 mg 06/19/18 18:10 Colace - PO BID PRN CONSTIPATION Gabapentin 300 mg 06/19/18 22:00 06/20/18 10:58 Neurontin - PO 300 mg BID [facility] Administration Hydromorphone HCl 10 mg 06/19/18 18:10 06/19/18 19:25 Dilaudid Wage Conciliator - PIN DRAFTER OPERATOR 06/26/18 17:53 0.4 mg PIN DRAFTER OPERATOR [facility] Administration Protocol Sodium Chloride 1,000 mls @ 100 mls/hr 06/20/18 10:30 06/20/18 12:00 Normal Saline - IV 100 mls/hr ASDIR [facility] Administration Insulin Aspart 1 vial 06/19/18 22:00 06/20/18 06:57 Novolog Vial Sliding Scale - SQ Not Given ACHS [facility] Protocol Insulin Detemir 10 units 06/19/18 22:00 06/20/18 00:10 Levemir Vial SQ 10 units HS [facility] Administration Lisinopril 5 mg 06/20/18 10:00 06/20/18 16:13 Prinivil PO Not Given DAILY [facility] Mupirocin 1 applic 06/19/18 22:00 06/20/18 10:59 Bactroban Ointment (For Decolonization) - NS 06/24/18 21:59 1 applic BID [facility] Administration Ondansetron HCl 4 mg 06/19/18 18:10 Zofran Injection IVPUSH Q6H PRN NAUSEA AND/OR VOMITING Torsemide 50 mg 06/20/18 10:00 06/20/18 12:00 Demadex - PO 50 mg DAILY [facility] Administration Zolpidem Tartrate 5 mg 06/19/18 22:00 06/20/18 03:15 Ambien - PO 5 mg HS PRN Administration INSOMNIA Impression 1. ELIZABETH resolving 2. CHF 3. back pain 4. DM 5. HTN 6. CHF 7. DVT on xarelto 8. hyperkalemia Plan - repeat potassium is normal - monitor renal function - can resume diuretics - will follow - cortical atrophy on renal ultrasound, may have ckd - avoid nsaids - will follow Dr Loyd
[2018-06-21] MEDS: HYDROmorphone *PCA* 10MG/50ML DISP.SYRIN PCA SCH (02:31)
[2018-06-21] MEDS: ACETAMINOPHEN 1000 MG/100 ML VIAL (NON FORMULARY) IVPB SCH ×2 (02:31→12:01)
[2018-06-21] MEDS ORDERED: SODIUM CHLORIDE 500 ML IV STA (04:36)
[2018-06-21 06:13] LABS: HEMATOCRIT 28.2 % (32.4-45.2); HEMOGLOBIN 9.2 GM/dL (10.7-15.3); MCH 29.7 pg (25.7-33.7); MCHC 32.7 g/dl (32.0-36.0); MEAN CELL VOLUME 90.6 fl (80-96); MEAN PLT VOLUME 7.9 fl (7.5-11.1); PLATELET COUNT 192 K/MM3 (134-434); RBC 3.11 M/mm3 (3.60-5.2); WHITE BLOOD COUNT 7.3 K/mm3 (4.0-10.0)
[2018-06-21 06:45] LABS: ANION GAP 9 MMOL/L (8-16); BLOOD UREA NITROGEN 31 mg/dL (7-18); CALCIUM 7.4 mg/dL (8.5-10.1); CHLORIDE 103 mmol/L (98-107); CO2 28 mmol/L (21-32); CREATININE 0.8 mg/dL (0.55-1.3); GLUCOSE,RANDOM 189 mg/dL (74-106); MAGNESIUM 1.8 mg/dL (1.8-2.4); PHOSPHOROUS 3.7 mg/dL (2.5-4.9); POTASSIUM 4.3 mmol/L (3.5-5.1); SODIUM 139 mmol/L (136-145)
[2018-06-21] MEDS: INSULIN SLIDING SCALE (NOVOLOG) 1 VIAL SQ SCH ×4 (07:00→21:16)
--- NOTE | 2018-06-21 08:22 | PN ---
Physical Exam: SUBJECTIVE: Patient seen and examined at bedside- no acute events overnight. patient states that she is passing flatus, having bowel movements and tolerated a liquid diet last night-will be getting a regular diet this morning. she states her pain is well controlled and only use her boss dyer pump once overnight. she denies any CP/SOB/N/;V fevers or chills OBJECTIVE: Vital Signs Period Temp Pulse Resp BP Sys/Marcelo Pulse Ox Last 24 Hr 97.8 F-98.2 F 65-101 11-23 78-131/37-85 99-99 GENERAL: The patient is awake, alert, and fully oriented, in no acute distress. EYES:no scleral icterus. NECK: no JVD, no lymphadenopathy. LUNGS:CTA B/L; no rales, rhonchi or wheezing. HEART: Regular rate and rhythm, S1, S2 without murmur, rub or gallop. ABDOMEN: Soft, nontender, nondistended, normoactive bowel sounds, no guarding, no rebound, no hepatosplenomegaly, no masses. EXTREMITIES: 2+ pulses, warm, well-perfused, no edema. NEUROLOGICAL: Right lower extremity weakness and diminished sensation PSYCH: Normal mood, normal affect. SKIN: Warm, dry, normal turgor, no rashes or lesions noted Laboratory Results - last 24 hr 06/19/18 06/20/18 06/20/18 23:51 06:41 15:00 WBC RBC Hgb Hct MCV MCH MCHC RDW Plt Count MPV Sodium 137 Potassium 4.8 Chloride 101 Carbon Dioxide 27 Anion Gap 9 BUN 23 H Creatinine 0.8 Creat Clearance w eGFR > 60 POC Glucometer 304.11998 131.77397 Random Glucose 275 H Calcium 8.1 L Phosphorus Magnesium 06/21/18 06/21/18 05:30 05:30 WBC 7.3 RBC 3.11 L Hgb 9.2 L Hct 28.2 L MCV 90.6 MCH 29.7 MCHC 32.7 RDW 14.0 Plt Count 192 MPV 7.9 Sodium 139 Potassium 4.3 Chloride 103 Carbon Dioxide 28 Anion Gap 9 BUN 31 H Creatinine 0.8 Creat Clearance w eGFR > 60 POC Glucometer Random Glucose 189 H Calcium 7.4 L Phosphorus 3.7 Magnesium 1.8 Active Medications Generic Name Dose Route Start Last Admin Trade Name Freq PRN Reason Stop Dose Admin Acetaminophen 1,000 mg 06/20/18 02:00 06/21/18 02:31 Ofirmev Injection - IVPB 06/21/18 10:01 1,000 mg Q8H [facility] Administration Carvedilol 25 mg 06/19/18 22:00 06/20/18 21:28 Coreg - PO 25 mg BID [facility] Administration Chlorhexidine Gluconate 1 applic 06/19/18 22:00 06/20/18 21:28 Hibiclens For Decolonization - TP 1 applic HS [facility] Administration Cyclobenzaprine HCl 10 mg 06/20/18 10:00 06/20/18 10:58 Flexeril - PO 10 mg DAILY [facility] Administration Diphenhydramine HCl 12.5 mg 06/19/18 18:10 Benadryl Injection - IVPUSH ONCE PRN FOR ITCHING Docusate Sodium 100 mg 06/19/18 18:10 Colace - PO BID PRN CONSTIPATION Gabapentin 300 mg 06/19/18 22:00 06/20/18 21:28 Neurontin - PO 300 mg BID [facility] Administration Hydromorphone HCl 10 mg 06/19/18 18:10 06/21/18 02:31 Dilaudid Centrifugal Screen Tender - LEAD DRIVER 06/26/18 17:53 10 mg LEAD DRIVER [facility] Administration Protocol Sodium Chloride 1,000 mls @ 100 mls/hr 06/20/18 10:30 06/20/18 12:00 Normal Saline - IV 100 mls/hr ASDIR [facility] Administration Insulin Aspart 1 vial 06/19/18 22:00 06/20/18 21:30 Novolog Vial Sliding Scale - SQ 2 units ACHS [facility] Administration Protocol Insulin Detemir 10 units 06/19/18 22:00 06/20/18 21:28 Levemir Vial SQ 10 units HS [facility] Administration Lisinopril 5 mg 06/20/18 10:00 06/20/18 16:13 Prinivil PO Not Given DAILY [facility] Mupirocin 1 applic 06/19/18 22:00 06/20/18 21:29 Bactroban Ointment (For Decolonization) - NS 06/24/18 21:59 1 applic BID [facility] Administration Ondansetron HCl 4 mg 06/19/18 18:10 Zofran Injection IVPUSH Q6H PRN NAUSEA AND/OR VOMITING Torsemide 50 mg 06/20/18 10:00 06/20/18 12:00 Demadex - PO 50 mg DAILY [facility] Administration Zolpidem Tartrate 5 mg 06/19/18 22:00 06/20/18 23:02 Ambien - PO 5 mg HS PRN Administration INSOMNIA ASSESSMENT/PLAN: 72 y/o female with PMH of HTN, DM, CHF, multiple spine and hip surgeries, RA presents with worsening neurological lower extremity weakness 2/2 chronic back pain and hardware impinging on nerves, #POD #2: L4-S1 inspection of fusion mass, pedicle subtraction, R osteotomy L4- L5 revision, L4 laminectomy drain put out about 300ml in 24 hours -no chemical PPX for 72 hrs -dilaudid LEAD DRIVER pump -zofran PRN for nausea -flexeril, percocet -regular diet since patient passed flatus -OOB; PT eval today -transfer to med-surg floor #DM -holding oral diabetic agents -ISS -BGMS ACHS # CHF -restarted patients torsemide since diet was advanced -echo done: ef 50-55%; no regional wall motion abnormlaities; mild MR -monitor I's and O's and daily weights #Afib -c/w atenolol and coreg daily -Dr. Pastrana was consultes; f/u recs #HTN -c/w lisinopril 5mg daily #RA -c/w leflunomide daily F/E/N not on fluids monitor electrolytes accordingly diabetic/low sodium diet DVT PPX SCDS Problem List - Problems (1) Back pain Code(s): M54.9 - DORSALGIA, UNSPECIFIED Qualifiers: Back pain location: low back pain Chronicity: acute (2) Acute renal failure Code(s): N17.9 - ACUTE KIDNEY FAILURE, UNSPECIFIED Qualifiers: Acute renal failure type: unspecified Qualified Code(s): N17.9 - Acute kidney failure, unspecified Visit type - Emergency Visit Emergency Visit: Yes ED Registration Date: 06/16/18 Care time: The patient presented to the Emergency Department on the above date and was hospitalized for further evaluation of their emergent condition. - New Patient This patient is new to me today: No - Critical Care Critical Care patient: No
--- NOTE | 2018-06-21 09:30 | PN ---
Progress Note (short form) - Note Progress Note: s: no cp sob palps dizzy. o: Vital Signs Period Temp Pulse Resp BP Sys/Marcelo Pulse Ox Last 24 Hr 97.8 F-98.2 F 65-101 11-23 78-131/37-85 99-99 no jvd rrr s1s2 no mrg cta bl nl eff aaox3 abd nt nd pos bs no le e/c/c no jaundice diaphoresis pos dp pt Current Medications Acetaminophen (Ofirmev Injection -) 1,000 mg IVPB Q8H [facility] Stop: 06/21/18 10:01 Last Admin: 06/21/18 02:31 Dose: 1,000 mg Carvedilol (Coreg -) 25 mg PO BID [facility] Last Admin: 06/20/18 21:28 Dose: 25 mg Chlorhexidine Gluconate (Hibiclens For Decolonization -) 1 applic TP HS [facility] Last Admin: 06/20/18 21:28 Dose: 1 applic Cyclobenzaprine HCl (Flexeril -) 10 mg PO DAILY [facility] Last Admin: 06/20/18 10:58 Dose: 10 mg Diphenhydramine HCl (Benadryl Injection -) 12.5 mg IVPUSH ONCE PRN PRN Reason: FOR ITCHING Docusate Sodium (Colace -) 100 mg PO BID PRN PRN Reason: CONSTIPATION Gabapentin (Neurontin -) 300 mg PO BID [facility] Last Admin: 06/20/18 21:28 Dose: 300 mg Hydromorphone HCl (Dilaudid Spoon Maker -) 10 mg AUTOMATIC TRANSMISSION MECHANIC AUTOMATIC TRANSMISSION MECHANIC [facility]; Protocol Stop: 06/26/18 17:53 Last Admin: 06/21/18 02:31 Dose: 10 mg Insulin Aspart (Novolog Vial Sliding Scale -) 1 vial SQ [facility]; Protocol Last Admin: 06/20/18 21:30 Dose: 2 units Insulin Detemir (Levemir Vial) 10 units SQ HS [facility] Last Admin: 06/20/18 21:28 Dose: 10 units Lisinopril (Prinivil) 5 mg PO DAILY [facility] Last Admin: 06/20/18 16:13 Dose: Not Given Mupirocin (Bactroban Ointment (For Decolonization) -) 1 applic NS BID [facility] Stop: 06/24/18 21:59 Last Admin: 06/20/18 21:29 Dose: 1 applic Ondansetron HCl (Zofran Injection) 4 mg IVPUSH Q6H PRN PRN Reason: NAUSEA AND/OR VOMITING Torsemide (Demadex -) 50 mg PO DAILY [facility] Last Admin: 06/20/18 12:00 Dose: 50 mg Zolpidem Tartrate (Ambien -) 5 mg PO HS PRN PRN Reason: INSOMNIA Last Admin: 06/20/18 23:02 Dose: 5 mg 2 ecg: sr, pvc, nl intervals, no ischemic changes echo 04/2013: nl lv/rv, mild lae, mild mr/tr echo in office 05/09/2017: mild-mod lve, lvef 30-35%, global hk, nl rv size, mild dec rv fcn, mild lae, mod-sev mr echo here 06/01/17: nl lv, nl rv size, mild fernando, sev mr, mild tr, nl rvsp echo 06/2018: nl lv, rv tds, mild mr, nl rvsp mibi 05/2014: no ischemia, mildly reduced lvef cath 2005: normal cors tele: sinus with frequent PVCs a/p: 71 f hx multiple PEs/DVTs s/p ivc filter and on coumadin, dm, hld, htn, sys chf, here with intractable back pain. 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: -nonisch CMP dx'd 03/22 -L/RHC 03/22 with moderately elevated wedge (25) and corresponding elevation in PAPs (50/25); NORMAL CORONARIES -severely reduced cardiac index on that RHC -more recent echo reporting improved lvef -stable vol status, cont home torsemide -cont home bb, lorna HTN: -bp controlled, cont home lorna, bb h/o VTEs (DVTs and PEs): -s/p IVC filter -NOAC held for surgery, resume 72 hours post op per surgery low back pain/spasm: -chronic pain, s/p prior spine surgeries -now here with intractable pain, s/p repeat spine surgery 06/20
[2018-06-21] MEDS: TORSEMIDE 100 MG TABLET PO SCH (11:40)
[2018-06-21] MEDS: GABAPENTIN 300 MG CAPSULE (FP) PO SCH ×2 (11:59→21:15)
[2018-06-21] MEDS: CARVEDILOL 25 MG TABLET (FP) PO SCH ×2 (11:59→21:15)
[2018-06-21] MEDS: CYCLOBENZAPRINE HCL 10 MG TABLET (FP) PO SCH (11:59)
[2018-06-21] MEDS: MUPIROCIN 2% TOPICAL OINTMENT FOR DECOLONIZATION NS SCH ×2 (11:59→21:25)
--- NOTE | 2018-06-21 12:43 | PN ---
Teaching Attending Note Name of Resident: Doug Engle ATTENDING PHYSICIAN STATEMENT I saw and evaluated the patient. I reviewed the resident's note and discussed the case with the resident. I agree with the resident's findings and plan as documented. SUBJECTIVE: Pt seen and examined in the ICU. Pain controlled. Tolerating PO. No fevers or chills. Episode of hypotension overnight improved with IVF. OBJECTIVE: Vital Signs Period Temp Pulse Resp BP Sys/Marcelo Pulse Ox Last 24 Hr 97.7 F-98.1 F 65-101 11- 78-123/37-85 99-99 Intake & Output 06/18/18 06/19/18 06/20/18 06/21/18 23:59 23:59 23:59 23:59 Intake Total 410 3150 2800 1500 Output Total 1030 2605 2000 Balance 410 2120 195 -500 Weight 97.613 kg 98.625 kg 99.337 kg 101.2 kg Gen: NAD at rest Heart: RRR Lung: decreased breath sounds at the bases Abd: soft, nontender Ext: no edema CBC, BMP 06/21/18 05:30 06/21/18 05:30 Active Medications Carvedilol (Coreg -) 25 mg PO BID [facility] Last Admin: 06/21/18 11:59 Dose: 25 mg Chlorhexidine Gluconate (Hibiclens For Decolonization -) 1 applic TP HS [facility] Last Admin: 06/20/18 21:28 Dose: 1 applic Cyclobenzaprine HCl (Flexeril -) 10 mg PO DAILY [facility] Last Admin: 06/21/18 11:59 Dose: 10 mg Diphenhydramine HCl (Benadryl Injection -) 12.5 mg IVPUSH ONCE PRN PRN Reason: FOR ITCHING Docusate Sodium (Colace -) 100 mg PO BID PRN PRN Reason: CONSTIPATION Gabapentin (Neurontin -) 300 mg PO BID [facility] Last Admin: 06/21/18 11:59 Dose: 300 mg Hydromorphone HCl (Dilaudid Parks And Recreation Manager -) 10 mg LIVESTOCK FEEDER LIVESTOCK FEEDER [facility]; Protocol Stop: 06/26/18 17:53 Last Admin: 06/21/18 02:31 Dose: 10 mg Insulin Aspart (Novolog Vial Sliding Scale -) 1 vial SQ ACHS [facility]; Protocol Last Admin: 06/20/18 21:30 Dose: 2 units Insulin Detemir (Levemir Vial) 10 units SQ HS [facility] Last Admin: 06/20/18 21:28 Dose: 10 units Lisinopril (Prinivil) 5 mg PO DAILY [facility] Last Admin: 06/20/18 16:13 Dose: Not Given Mupirocin (Bactroban Ointment (For Decolonization) -) 1 applic NS BID [facility] Stop: 06/24/18 21:59 Last Admin: 06/21/18 11:59 Dose: 1 applic Ondansetron HCl (Zofran Injection) 4 mg IVPUSH Q6H PRN PRN Reason: NAUSEA AND/OR VOMITING Torsemide (Demadex -) 50 mg PO DAILY [facility] Last Admin: 06/21/18 11:40 Dose: Not Given Zolpidem Tartrate (Ambien -) 5 mg PO HS PRN PRN Reason: INSOMNIA Last Admin: 06/20/18 23:02 Dose: 5 mg ASSESSMENT AND PLAN: Lumbar Spinal Stenosis with Right L5 Radiculopathy s/p SHANIA L4-S1/Revision Laminectomy Right L4, L5/Right L4-L5 foraminotomy & neurotomy LV Systolic Dysfunction Atrial Fibrillation Acute Kidney Injury resolved HTN DM RA - pain control - incentive spirometry - bowel regimen - PO as tolerated - resume anticoagulation when ok with surgery - DVT prophylaxis - disposition per surgery
--- NOTE | 2018-06-21 13:13 | PN ---
Progress Note, Physician History of Present Illness: Pt seen and examined at bedside. She is awake and alert. She denies shortness of breath. - Current Medication List Current Medications: Active Medications Carvedilol (Coreg -) 25 mg PO BID [facility] Last Admin: 06/21/18 11:59 Dose: 25 mg Chlorhexidine Gluconate (Hibiclens For Decolonization -) 1 applic TP HS [facility] Last Admin: 06/20/18 21:28 Dose: 1 applic Cyclobenzaprine HCl (Flexeril -) 10 mg PO DAILY [facility] Last Admin: 06/21/18 11:59 Dose: 10 mg Diphenhydramine HCl (Benadryl Injection -) 12.5 mg IVPUSH ONCE PRN PRN Reason: FOR ITCHING Docusate Sodium (Colace -) 100 mg PO BID PRN PRN Reason: CONSTIPATION Gabapentin (Neurontin -) 300 mg PO BID [facility] Last Admin: 06/21/18 11:59 Dose: 300 mg Hydromorphone HCl (Dilaudid Logistics Director -) 10 mg SOCIAL WORK PROGRAM COORDINATOR SOCIAL WORK PROGRAM COORDINATOR [facility]; Protocol Stop: 06/26/18 17:53 Last Admin: 06/21/18 02:31 Dose: 10 mg Insulin Aspart (Novolog Vial Sliding Scale -) 1 vial SQ [facility]; Protocol Last Admin: 06/21/18 12:56 Dose: 4 units Insulin Detemir (Levemir Vial) 10 units SQ [facility] Last Admin: 06/20/18 21:28 Dose: 10 units Lisinopril (Prinivil) 5 mg PO DAILY [facility] Last Admin: 06/20/18 16:13 Dose: Not Given Mupirocin (Bactroban Ointment (For Decolonization) -) 1 applic NS BID [facility] Stop: 06/24/18 21:59 Last Admin: 06/21/18 11:59 Dose: 1 applic Ondansetron HCl (Zofran Injection) 4 mg IVPUSH Q6H PRN PRN Reason: NAUSEA AND/OR VOMITING Torsemide (Demadex -) 50 mg PO DAILY [facility] Last Admin: 06/21/18 11:40 Dose: Not Given Zolpidem Tartrate (Ambien -) 5 mg PO HS PRN PRN Reason: INSOMNIA Last Admin: 06/20/18 23:02 Dose: 5 mg - Objective Vital Signs: Vital Signs Temperature 97.7 F 06/21/18 10:00 Pulse Rate 66 06/21/18 12:00 Respiratory Rate 16 06/21/18 12:00 Blood Pressure 122/52 L 06/21/18 12:00 O2 Sat by Pulse Oximetry (%) 99 06/21/18 09:36 Constitutional: Yes: Calm Eyes: Yes: Conjunctiva Clear HENT: Yes: Atraumatic Neck: Yes: Supple Cardiovascular: Yes: S1, S2 Respiratory: Yes: CTA Bilaterally Gastrointestinal: Yes: Normal Bowel Sounds, Soft Genitourinary: Yes: WNL Musculoskeletal: Yes: Back Pain Edema: No Neurological: Yes: Oriented Psychiatric: Yes: Oriented Labs: CBC, BMP 06/21/18 05:30 06/21/18 05:30 INR, PTT INR 1.03 (0.83-1.09) 06/17/18 06:50 Problem List - Problems (1) Back pain Code(s): M54.9 - DORSALGIA, UNSPECIFIED Qualifiers: Back pain location: low back pain Chronicity: acute (2) Progressive neurological deficit Code(s): R29.818 - OTHER SYMPTOMS AND SIGNS INVOLVING THE NERVOUS SYSTEM (3) Acute renal failure Code(s): N17.9 - ACUTE KIDNEY FAILURE, UNSPECIFIED Qualifiers: Acute renal failure type: unspecified Qualified Code(s): N17.9 - Acute kidney failure, unspecified Assessment/Plan Current Medications Generic Name Dose Route Start Last Admin Trade Name Freq PRN Reason Stop Dose Admin Carvedilol 25 mg 06/19/18 22:00 06/21/18 11:59 Coreg - PO 25 mg BID [facility] Administration Chlorhexidine Gluconate 1 applic 06/19/18 22:00 06/20/18 21:28 Hibiclens For Decolonization - TP 1 applic HS [facility] Administration Cyclobenzaprine HCl 10 mg 06/20/18 10:00 06/21/18 11:59 Flexeril - PO 10 mg DAILY [facility] Administration Diphenhydramine HCl 12.5 mg 06/19/18 18:10 Benadryl Injection - IVPUSH ONCE PRN FOR ITCHING Docusate Sodium 100 mg 06/19/18 18:10 Colace - PO BID PRN CONSTIPATION Gabapentin 300 mg 06/19/18 22:00 06/21/18 11:59 Neurontin - PO 300 mg BID [facility] Administration Hydromorphone HCl 10 mg 06/19/18 18:10 06/21/18 02:31 Dilaudid Logistics Director - SOCIAL WORK PROGRAM COORDINATOR 06/26/18 17:53 10 mg SOCIAL WORK PROGRAM COORDINATOR [facility] Administration Protocol Insulin Aspart 1 vial 06/19/18 22:00 06/21/18 12:56 Novolog Vial Sliding Scale - SQ 4 units ACHS [facility] Administration Protocol Insulin Detemir 10 units 06/19/18 22:00 06/20/18 21:28 Levemir Vial SQ 10 units HS [facility] Administration Lisinopril 5 mg 06/20/18 10:00 06/20/18 16:13 Prinivil PO Not Given DAILY [facility] Mupirocin 1 applic 06/19/18 22:00 06/21/18 11:59 Bactroban Ointment (For Decolonization) - NS 06/24/18 21:59 1 applic BID [facility] Administration Ondansetron HCl 4 mg 06/19/18 18:10 Zofran Injection IVPUSH Q6H PRN NAUSEA AND/OR VOMITING Torsemide 50 mg 06/20/18 10:00 06/21/18 11:40 Demadex - PO Not Given DAILY [facility] Zolpidem Tartrate 5 mg 06/19/18 22:00 06/20/18 23:02 Ambien - PO 5 mg HS PRN Administration INSOMNIA Impression 1. ELIZABETH resolving 2. CHF 3. back pain 4. DM 5. HTN 6. CHF 7. DVT on xarelto 8. hyperkalemia Plan - renal function is stable - potassium stable - avoid nephrotoxins - cont diuretics - avoid nsaids - will follow PRN Dr Loyd
[2018-06-21] MEDS ORDERED: oxyCODONE HCL 5 MG TABLET PO PRN (13:25)
--- NOTE | 2018-06-21 13:44 | PN ---
Teaching Attending Note Name of Resident: Mar Whiteside ATTENDING PHYSICIAN STATEMENT I saw and evaluated the patient. I reviewed the resident's note and discussed the case with the resident. I agree with the resident's findings and plan as documented. SUBJECTIVE:states pain is controlled. tolerating diet. denies CP, SOB, fever, chills, N/V/C/D/ +BM last night episode of asymptomatic hypotension this AM OBJECTIVE: Last Vital Signs Temp Pulse Resp BP Pulse Ox 97.7 F 66 16 122/52 L 99 06/21/18 10:00 06/21/18 12:00 06/21/18 12:00 06/21/18 12:00 06/21/18 09:36 General NAD CV S1 S2 + no murmur/rub/gallop Lungs CTA B/L no wheezing/rales/rhonchi Abdomen soft NT/ND obese back hemovac in place ASSESSMENT AND PLAN: 72 y.o. F w/ PMHx. of HTN, NIDDM, systolic CHF, RA, multiple spine surgeries, multiple hips surgeries, multiple abdominal surgeries, presents with worsening neurological lower extremity weakness 2/2 chronic back pain and hardware impinging on nerves. 1. Lumbar spinal stenosis with radiculopathy-s/p 1. Removal of hardware right L4 -S1. 2. Inspection of fusion mass. 3. Pedicle subtraction osteotomy right L4 & L5. 4. Revision laminectomy right L4, L5. 5. Right L4-L5 foraminotomy & neurotomy. 6. Bone autograft. 7. Bone allograft. 8. Bone marrow aspiration . hemovac in place. tolerating diet. laying flat due to durotomy repair per ortho. will d/c COAL DUMPING EQUIPMENT OPERATOR pump and transition to oral pain medications. PT eval. hemovac and further recommendations per ortho. pain control 2. Hypotension- likely due to pain medication. now controlled. hold diuretic. 3. acute blood loss anemia- due to recent surgery. sangenous drainage in hemovac. received cell-saver intra-operatively. no other signs of bleeding. trend hgb. no indication for transfusion 4. Hyperkalemia- s/p insulin and D50. kayxylate given. resolved 5. ELIZABETH- likely pre-renal. now resolved. renal u/s negative for acute pathology. renal on board 6. DM- hold oral agents. ISS and BGM 7. Systolic CHF- no signs of volume overload. currently on IVF will d/c fluids and plan to re-start toresmide tomorrow. cardo on board 8. Afib- rate controlled. Xarelto to be held for 72H post-op. 9. RA_ on leflunomide 10. DVT ppx- SCD. hold pharmacologic anticoagulation in light of surgery 11. MICU monitoring. stable for medical floors The care of this patient involved high complexity decision making to prevent further life threatening deterioration of the patient's condition and/or to evaluate & treat vital organ system(s) failure or risk of failure. 35 mins
--- NOTE | 2018-06-21 14:03 | PN ---
Physical Exam: SUBJECTIVE: Patient seen and examined inthe ICU. overnight episode of asymptomatic hypotension resolved w/ fluids. POD #2- her pain is well controlled with dilaudid EMERGENCY MANAGEMENT DIRECTOR, however, she does not feel any changes in her LE weakness- she feels her right lower extremity is still feeling the exact same. no complaints. passing flatus, tolerating PO. denies sob, cp, n/v/d, numbness tingling, weakness, saddle anesthesia, incontinence OBJECTIVE: Vital Signs Period Temp Pulse Resp BP Sys/Marcelo Pulse Ox Last 24 Hr 97.7 F-98.1 F 65-101 11-23 78-123/37-85 99-99 GENERAL: AOX3 NAD HEAD: NCAT EYES: PERRL, extraocular movements intact, sclera anicteric, conjunctiva clear. No ptosis. ENT: MMM NECK: Trachea midline, full range of motion, supple. LUNGS: CTAB HEART: RRR, S1, S2 without murmur, rub or gallop. ABDOMEN: Soft, NTND, normoactive bowel sounds, no guarding, no rebound EXTREMITIES: 2+ pulses, warm, well-perfused, no edema. NEUROLOGICAL: Cranial nerves II through XII grossly intact. Normal speech, gait not observed. PSYCH: Normal mood, normal affect. SKIN: Warm, dry, normal turgor, no rashes or lesions noted Laboratory Results - last 24 hr 06/19/18 06/20/18 06/20/18 23:51 06:41 15:00 WBC RBC Hgb Hct MCV MCH MCHC RDW Plt Count MPV Sodium 137 Potassium 4.8 Chloride 101 Carbon Dioxide 27 Anion Gap 9 BUN 23 H Creatinine 0.8 Creat Clearance w eGFR > 60 POC Glucometer [phone] Random Glucose 275 H Calcium 8.1 L Phosphorus Magnesium 06/21/18 06/21/18 05:30 05:30 WBC 7.3 RBC 3.11 L Hgb 9.2 L Hct 28.2 L MCV 90.6 MCH 29.7 MCHC 32.7 RDW 14.0 Plt Count 192 MPV 7.9 Sodium 139 Potassium 4.3 Chloride 103 Carbon Dioxide 28 Anion Gap 9 BUN 31 H Creatinine 0.8 Creat Clearance w eGFR > 60 POC Glucometer Random Glucose 189 H Calcium 7.4 L Phosphorus 3.7 Magnesium 1.8 Active Medications Generic Name Dose Route Start Last Admin Trade Name Freq PRN Reason Stop Dose Admin Carvedilol 25 mg 06/19/18 22:00 06/21/18 11:59 Coreg - PO 25 mg BID LISA Administration Chlorhexidine Gluconate 1 applic 06/19/18 22:00 06/20/18 21:28 Hibiclens For Decolonization - TP 1 applic HS LISA Administration Cyclobenzaprine HCl 10 mg 06/20/18 10:00 06/21/18 11:59 Flexeril - PO 10 mg DAILY LISA Administration Diphenhydramine HCl 12.5 mg 06/19/18 18:10 Benadryl Injection - IVPUSH ONCE PRN FOR ITCHING Docusate Sodium 100 mg 06/19/18 18:10 Colace - PO BID PRN CONSTIPATION Gabapentin 300 mg 06/19/18 22:00 06/21/18 11:59 Neurontin - PO 300 mg BID LISA Administration Insulin Aspart 1 vial 06/19/18 22:00 06/21/18 12:56 Novolog Vial Sliding Scale - SQ 4 units ACHS LISA Administration Protocol Insulin Detemir 10 units 06/19/18 22:00 06/20/18 21:28 Levemir Vial SQ 10 units HS LISA Administration Lisinopril 5 mg 06/20/18 10:00 06/20/18 16:13 Prinivil PO Not Given DAILY [facility] Mupirocin 1 applic 06/19/18 22:00 06/21/18 11:59 Bactroban Ointment (For Decolonization) - NS 06/24/18 21:59 1 applic BID LISA Administration Ondansetron HCl 4 mg 06/19/18 18:10 Zofran Injection IVPUSH Q6H PRN NAUSEA AND/OR VOMITING Oxycodone HCl 5 mg 06/21/18 13:25 Roxicodone - PO Q6H PRN PAIN LEVEL 4 - 6 Torsemide 50 mg 06/20/18 10:00 06/21/18 11:40 Demadex - PO Not Given DAILY [facility] Zolpidem Tartrate 5 mg 06/19/18 22:00 06/20/18 23:02 Ambien - PO 5 mg HS PRN Administration INSOMNIA ASSESSMENT/PLAN: 72 yo F who PMHx of HTN, IDDMII, Systolic CHF, Atrial Fibrillation, DVT on Xarelto, RA, Chronic back pain with multiple spinal surgeries, was sent to the hospital by her surgeon for admission due to progressive neurological weakness and was found to have hardware impinging on the nerves causing weakness and numbness of the right lower extremity. Patient now s/p Spinal Surgery and admitted to ICU for further monitoring and management. SURGERY Removal of hardware right L4-S1. 2. Inspection of fusion mass. 3. Pedicle subtraction osteotomy right L4 & L5. 4. Revision laminectomy right L4, L5. 5. Right L4-L5 foraminotomy & neurotomy. 6. Bone autograft. 7. Bone allograft. 8. Bone marrow aspiration -POD#2 -Pain control with Dilaudid EMERGENCY MANAGEMENT DIRECTOR, fentanyl, neurontin, Tylenol, and Flexeril -Drain on gravity with no self suction, as per surgery -pt w/ flatus advance diet as tolerated -Mechanical DVT with SCD's -Incentive Spirometer -Strict I&O's with drain monitoring. Monitor Creatinine -PT/OT/Rehab when ambulating and OOB -WBAT B/L LE -dc galan, PT eval today -bowel regimen CARDIOLOGY Atrial Fibrillation -Currently rate controlled -C/w Coreg 25mg BID -C/w cardiac monitoring Systolic CHF -Currently not in acute exacerbation -C/w Torsemide 50mg daily -Monitor I&O's and creatinine -echo done: ef 50-55%; no regional wall motion abnormlaities; mild MR HTN -Continue home medication Coreg 25mg BID -Continue home medication Lisinopril 5mg daily -monitor BP ENDOCRINE IDDMII -BGM -ISS RA -C/w Leflunomide daily FEN -tolerating PO, dc fluids -replete prn. -diabetic/low sodium diet Ppx -SCD's for DVT, NOAC held for surgery, resume 72 hours post op per surgery, Has IVC filter -No GI required DISPO -Full code -ICU monitoring Visit type - Emergency Visit Emergency Visit: Yes ED Registration Date: 06/16/18 Care time: The patient presented to the Emergency Department on the above date and was hospitalized for further evaluation of their emergent condition. - New Patient This patient is new to me today: Yes Date on this admission: 06/21/18 - Critical Care Critical Care patient: Yes Total Critical Care Time (in minutes): 36 Critical Care Statement: The care of this patient involved high complexity decision making to prevent further life threatening deterioration of the patient 's condition and/or to evaluate & treat vital organ system(s) failure or risk of failure.
[2018-06-21] MEDS ORDERED: ACETAMINOPHEN 325 MG TABLET (FP) PO PRN (14:57)
--- NOTE | 2018-06-21 15:55 | PN ---
Progress Note (short form) - Note Progress Note: Patient stable P80,BP 111/42 and Spo2 98 on O2 3l NC.She is c/o pain score of 4- 5/10 on dilaudid ultrasound technologist.Will continue ultrasound technologist today and will f/u tomorrow.
[2018-06-21] MEDS ORDERED: HYDROmorphone *PCA* 10MG/50ML DISP.SYRIN PCA SCH (16:00)
--- NOTE | 2018-06-21 17:34 | PN ---
Progress Note (short form) - Note Progress Note: 72F s/p SHANIA, revision decompression, and revision arthrodesis L4-S1 POD #2. Pain well controlled. No acute events overnight. Pt. denies any positional or persistent headaches, chest pain, shortness of breath, nausea, vomiting, chills, sweats. Ambulated with PT; no leg pain upon standing. (+) Hines; (-) Flatus; (-) BM. NPO. All labs, vitals, I&O reviewed. PE: AAO x 3, NAD. L-Spine: Dressing C/D/I. Drain intact & in place. B/L LE [employer] & Vascular Exam at Baseline. 72F s/p SHANIA, revision decompression, and revision arthrodesis L4-S1 POD #2. -Pain control: as per anaesthesia team. -DVT PPx: - Mechanical only: MARLON's, SCD's. - No chemical DVT PPx. x 72 hrs. post-op. -NPO until flatus. -Incentive spirometry q15min. -PT/OT/Rehab, OOB. -WBAT B/L LE. -f/u AM labs. -Monitor drain output; Drain on gravity; NO SELF-SUCTION. -Hines care. -Care per ICU & medical hospitalist teams. -OK to send to 8th floor 06/22/2018. -Discharge planning; f/u 7-10 days after discharge at [facility] office; call for appointment; . -Will follow. Luis Borjas MD (Orthopaedic Surgery).
[2018-06-21] MEDS: INSULIN (LEVEMIR) 100 UNITS/ML UNITS SQ SCH (21:15)
[2018-06-21] MEDS: CHLORHEXIDINE GLUCONATE 4% CLEANSER FOR DECOLONIZATION TP SCH (21:25)
[2018-06-21] MEDS ORDERED: ZOLPIDEM TARTRATE 5 MG TABLET PO ONE (21:38)
[2018-06-21] MEDS: ZOLPIDEM TARTRATE 5 MG TABLET PO PRN (22:52)
[2018-06-22] MEDS ORDERED: HEMOQUE TEST 1 EACH EACH ONE (05:45)
[2018-06-22 06:15] LABS: HEMATOCRIT 29.8 % (32.4-45.2); HEMOGLOBIN 9.6 GM/dL (10.7-15.3); MCH 29.9 pg (25.7-33.7); MCHC 32.1 g/dl (32.0-36.0); MEAN CELL VOLUME 92.9 fl (80-96); MEAN PLT VOLUME 7.9 fl (7.5-11.1); PLATELET COUNT 201 K/MM3 (134-434); RBC 3.21 M/mm3 (3.60-5.2); RDW 14.7 % (11.6-15.6); WHITE BLOOD COUNT 6.8 K/mm3 (4.0-10.0)
[2018-06-22] MEDS: INSULIN SLIDING SCALE (NOVOLOG) 1 VIAL SQ SCH ×4 (06:42→22:13)
[2018-06-22] MEDS: GABAPENTIN 300 MG CAPSULE (FP) PO SCH ×3 (06:42→22:05)
[2018-06-22] MEDS: CARVEDILOL 25 MG TABLET (FP) PO SCH ×2 (09:26→22:05)
[2018-06-22] MEDS: CYCLOBENZAPRINE HCL 10 MG TABLET (FP) PO SCH (09:26)
[2018-06-22] MEDS: MUPIROCIN 2% TOPICAL OINTMENT FOR DECOLONIZATION NS SCH (09:27)
[2018-06-22] MEDS: LISINOPRIL 5 MG TABLET (FP) PO SCH (09:27)
--- NOTE | 2018-06-22 10:10 | PN ---
Progress Note (short form) - Note Progress Note: s: no cp sob palps dizzy o: Vital Signs Period Temp Pulse Resp BP Sys/Marcelo Pulse Ox Last 24 Hr 98.0 F-98.8 F 66-92 14-23 97-122/37-91 100-100 no jvd rrr s1s2 no mrg cta bl nl eff aaox3 abd nt nd pos bs no le e/c/c no jaundice diaphoresis pos dp pt Current Medications Generic Name Dose Route Start Last Admin Trade Name Freq PRN Reason Stop Dose Admin Acetaminophen 650 mg 06/21/18 14:57 06/22/18 02:25 Tylenol - PO 650 mg Q4H PRN Administration Fever Or Pain Carvedilol 25 mg 06/19/18 22:00 06/22/18 09:26 Coreg - PO 25 mg BID LISA Administration Chlorhexidine Gluconate 1 applic 06/19/18 22:00 06/21/18 21:25 Hibiclens For Decolonization - TP 1 applic HS LISA Administration Cyclobenzaprine HCl 10 mg 06/20/18 10:00 06/22/18 09:26 Flexeril - PO 10 mg DAILY LISA Administration Diphenhydramine HCl 12.5 mg 06/19/18 18:10 06/21/18 22:52 Benadryl Injection - IVPUSH 12.5 mg ONCE PRN Administration FOR ITCHING Docusate Sodium 100 mg 06/19/18 18:10 Colace - PO BID PRN CONSTIPATION Gabapentin 300 mg 06/21/18 22:00 06/22/18 06:42 Neurontin - PO 300 mg TID LISA Administration Hydromorphone HCl 10 mg 06/21/18 16:00 06/21/18 17:40 Dilaudid Pickle Solution Maker - ASP NET PROGRAMMER 06/28/18 15:53 10 mg ASP NET PROGRAMMER LISA Administration Protocol Insulin Aspart 1 vial 06/19/18 22:00 06/22/18 06:42 Novolog Vial Sliding Scale - SQ 2 units ACHS LISA Administration Protocol Insulin Detemir 10 units 06/19/18 22:00 06/21/18 21:15 Levemir Vial SQ 10 units HS LISA Administration Lisinopril 5 mg 06/20/18 10:00 06/22/18 09:27 Prinivil PO 5 mg DAILY LISA Administration Mupirocin 1 applic 06/19/18 22:00 06/22/18 09:27 Bactroban Ointment (For Decolonization) - NS 06/24/18 21:59 1 applic BID LISA Administration Ondansetron HCl 4 mg 06/19/18 18:10 Zofran Injection IVPUSH Q6H PRN NAUSEA AND/OR VOMITING Torsemide 50 mg 06/20/18 10:00 06/21/18 11:40 Demadex - PO Not Given DAILY LISA Zolpidem Tartrate 5 mg 06/19/18 22:00 06/21/18 22:52 Ambien - PO 5 mg HS PRN Administration INSOMNIA CBC, BMP 06/22/18 05:30 06/21/18 05:30 2 ecg: sr, pvc, nl intervals, no ischemic changes echo 04/2013: nl lv/rv, mild lae, mild mr/tr echo in office 05/09/2017: mild-mod lve, lvef 30-35%, global hk, nl rv size, mild dec rv fcn, mild lae, mod-sev mr echo here 06/01/17: nl lv, nl rv size, mild fernando, sev mr, mild tr, nl rvsp echo 06/2018: nl lv, rv tds, mild mr, nl rvsp mibi 05/2014: no ischemia, mildly reduced lvef cath 2005: normal cors tele: sr, occ pvcs a/p: 71 f hx multiple PEs/DVTs s/p ivc filter and on coumadin, dm, hld, htn, sys chf, here with intractable back pain. 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: -nonisch CMP dx'd 03/22 -L/RHC 03/22 with moderately elevated wedge (25) and corresponding elevation in PAPs (50/25); NORMAL CORONARIES -severely reduced cardiac index on that RHC -more recent echo reporting improved lvef -stable vol status, cont home torsemide -cont home bb, lorna HTN: -bp controlled, cont home lorna, bb h/o VTEs (DVTs and PEs): -s/p IVC filter -NOAC held for surgery, resume when ok by neurosurgery low back pain/spasm: -chronic pain, s/p prior spine surgeries -now here with intractable pain, s/p repeat spine surgery 06/20
[2018-06-22] MEDS ORDERED: oxyCODONE HCL 5 MG TABLET PO PRN (10:36)
--- NOTE | 2018-06-22 10:36 | PN ---
Physical Exam: SUBJECTIVE: Patient seen and examined OBJECTIVE: Vital Signs Period Temp Pulse Resp BP Sys/Marcelo Pulse Ox Last 24 Hr 98.0 F-98.8 F 66-92 14-23 97-122/37-91 100-100 GENERAL: The patient is awake, alert, and fully oriented, in no acute distress. HEAD: Normal with no signs of trauma. EYES: PERRL, extraocular movements intact, sclera anicteric, conjunctiva clear. No ptosis. ENT: Ears normal, nares patent, oropharynx clear without exudates, moist mucous membranes. NECK: Trachea midline, full range of motion, supple. LUNGS: Breath sounds equal, clear to auscultation bilaterally, no wheezes, no crackles, no accessory muscle use. HEART: Regular rate and rhythm, S1, S2 without murmur, rub or gallop. ABDOMEN: Soft, nontender, nondistended, normoactive bowel sounds, no guarding, no rebound, no hepatosplenomegaly, no masses. EXTREMITIES: 2+ pulses, warm, well-perfused, no edema. NEUROLOGICAL: Cranial nerves II through XII grossly intact. Normal speech, gait not observed. PSYCH: Normal mood, normal affect. SKIN: Warm, dry, normal turgor, no rashes or lesions noted Laboratory Results - last 24 hr 06/20/18 06/20/18 06/21/18 18:36 21:28 06:00 WBC RBC Hgb Hct MCV MCH MCHC RDW Plt Count MPV POC Glucometer 322.32432 241.64443 228.68209 06/22/18 05:30 WBC 6.8 RBC 3.21 L Hgb 9.6 L Hct 29.8 L MCV 92.9 MCH 29.9 MCHC 32.1 RDW 14.7 Plt Count 201 MPV 7.9 POC Glucometer Active Medications Generic Name Dose Route Start Last Admin Trade Name Freq PRN Reason Stop Dose Admin Acetaminophen 650 mg 06/21/18 14:57 06/22/18 02:25 Tylenol - PO 650 mg Q4H PRN Administration Fever Or Pain Carvedilol 25 mg 06/19/18 22:00 06/22/18 09:26 Coreg - PO 25 mg BID LISA Administration Chlorhexidine Gluconate 1 applic 06/19/18 22:00 06/21/18 21:25 Hibiclens For Decolonization - TP 1 applic HS LISA Administration Cyclobenzaprine HCl 10 mg 06/20/18 10:00 06/22/18 09:26 Flexeril - PO 10 mg DAILY LISA Administration Diphenhydramine HCl 12.5 mg 06/19/18 18:10 06/21/18 22:52 Benadryl Injection - IVPUSH 12.5 mg ONCE PRN Administration FOR ITCHING Docusate Sodium 100 mg 06/19/18 18:10 Colace - PO BID PRN CONSTIPATION Gabapentin 300 mg 06/21/18 22:00 06/22/18 06:42 Neurontin - PO 300 mg TID LISA Administration Hydromorphone HCl 10 mg 06/21/18 16:00 06/21/18 17:40 Dilaudid Locomotive Inspector - PUMPING STATION SUPERVISOR 06/28/18 15:53 10 mg PUMPING STATION SUPERVISOR [facility] Administration Protocol Insulin Aspart 1 vial 06/19/18 22:00 06/22/18 06:42 Novolog Vial Sliding Scale - SQ 2 units ACHS LISA Administration Protocol Insulin Detemir 10 units 06/19/18 22:00 06/21/18 21:15 Levemir Vial SQ 10 units HS LISA Administration Lisinopril 5 mg 06/20/18 10:00 06/22/18 09:27 Prinivil PO 5 mg DAILY LISA Administration Mupirocin 1 applic 06/19/18 22:00 06/22/18 09:27 Bactroban Ointment (For Decolonization) - NS 06/24/18 21:59 1 applic BID LISA Administration Ondansetron HCl 4 mg 06/19/18 18:10 Zofran Injection IVPUSH Q6H PRN NAUSEA AND/OR VOMITING Torsemide 50 mg 06/20/18 10:00 06/21/18 11:40 Demadex - PO Not Given DAILY [facility] Zolpidem Tartrate 5 mg 06/19/18 22:00 06/21/18 22:52 Ambien - PO 5 mg HS PRN Administration INSOMNIA ASSESSMENT/PLAN: 72 y/o female with PMH of HTN, DM, CHF, multiple spine and hip surgeries, RA presents with worsening neurological lower extremity weakness 2/2 chronic back pain and hardware impinging on nerves, #POD #3: L4-S1 inspection of fusion mass, pedicle subtraction, R osteotomy L4- L5 revision, L4 laminectomy drain put out about 120 ml in 24 hours -can restart chemical PPX today -d/c dilaudid PUMPING STATION SUPERVISOR pump- start oral meds -zofran PRN for nausea -flexeril, percocet -regular diet since patient passed flatus -OOB; PT eval today -transfer to med-surg floor #DM -holding oral diabetic agents -ISS -BGMS ACHS # CHF -restarted patients torsemide since diet was advanced -echo done: ef 50-55%; no regional wall motion abnormlaities; mild MR -monitor I's and O's and daily weights #Afib -c/w atenolol and coreg daily -Dr. Pastrana was consultes; f/u recs #HTN -c/w lisinopril 5mg daily #RA -c/w leflunomide daily F/E/N not on fluids monitor electrolytes accordingly diabetic/low sodium diet Problem List - Problems (1) Back pain Code(s): M54.9 - DORSALGIA, UNSPECIFIED Qualifiers: Back pain location: low back pain Chronicity: acute (2) Acute renal failure Code(s): N17.9 - ACUTE KIDNEY FAILURE, UNSPECIFIED Qualifiers: Acute renal failure type: unspecified Qualified Code(s): N17.9 - Acute kidney failure, unspecified Visit type - Emergency Visit Emergency Visit: Yes ED Registration Date: 06/16/18 Care time: The patient presented to the Emergency Department on the above date and was hospitalized for further evaluation of their emergent condition. - New Patient This patient is new to me today: No - Critical Care Critical Care patient: No
--- NOTE | 2018-06-22 11:21 | PN ---
Progress Note (short form) - Note Progress Note: Anesthesia/Pain Pt seen and examined S:Alert and awake comfortable O: Vital Signs Temperature 98.0 F 06/22/18 06:00 Pulse Rate 71 06/22/18 06:00 Respiratory Rate 14 06/22/18 09:00 Blood Pressure 119/62 06/22/18 06:00 O2 Sat by Pulse Oximetry (%) 100 06/22/18 09:00 CBC, BMP 06/22/18 05:30 06/21/18 05:30 A/P Current Active Problems Back pain (Acute) Progressive neurological deficit (Acute) s/pPosterior lumbar fusion Doing well post op Continue current care Leave TRIMMING CUTTER per pt requests Po Oakes MD
--- NOTE | 2018-06-22 11:37 | PN ---
Physical Exam: SUBJECTIVE: Patient seen and examined in the ICU. POD #3- her pain is well controlled with dilaudid [employer] OFF[employer], no complaints. passing flatus, tolerating PO. denies sob, cp, n/v/d, numbness tingling, weakness, saddle anesthesia, incontinence. sania by PT. will transfer today to floors OBJECTIVE: Vital Signs Period Temp Pulse Resp BP Sys/Marcelo Pulse Ox Last 24 Hr 98.0 F-98.8 F 66-92 14-23 97-122/37-91 100-100 GENERAL: AOX3 NAD HEAD: NCAT EYES: PERRL, extraocular movements intact, sclera anicteric, conjunctiva clear. No ptosis. ENT: MMM NECK: Trachea midline, full range of motion, supple. LUNGS: CTAB HEART: RRR, S1, S2 without murmur, rub or gallop. ABDOMEN: Soft, NTND, normoactive bowel sounds, no guarding, no rebound EXTREMITIES: 2+ pulses, warm, well-perfused, no edema. NEUROLOGICAL: Cranial nerves II through XII grossly intact. Normal speech, gait not observed. PSYCH: Normal mood, normal affect. SKIN: Warm, dry, normal turgor, no rashes or lesions noted Laboratory Results - last 24 hr 06/20/18 06/20/18 06/21/18 18:36 21:28 06:00 WBC RBC Hgb Hct MCV MCH MCHC RDW Plt Count MPV POC Glucometer 322.66348 241.82535 228.35625 06/22/18 05:30 WBC 6.8 RBC 3.21 L Hgb 9.6 L Hct 29.8 L MCV 92.9 MCH 29.9 MCHC 32.1 RDW 14.7 Plt Count 201 MPV 7.9 POC Glucometer Active Medications Generic Name Dose Route Start Last Admin Trade Name Freq PRN Reason Stop Dose Admin Acetaminophen 650 mg 06/21/18 14:57 06/22/18 02:25 Tylenol - PO 650 mg Q4H PRN Administration Fever Or Pain Carvedilol 25 mg 06/19/18 22:00 06/22/18 09:26 Coreg - PO 25 mg BID LISA Administration Chlorhexidine Gluconate 1 applic 06/19/18 22:00 06/21/18 21:25 Hibiclens For Decolonization - TP 1 applic HS LISA Administration Cyclobenzaprine HCl 10 mg 06/20/18 10:00 06/22/18 09:26 Flexeril - PO 10 mg DAILY LISA Administration Diphenhydramine HCl 12.5 mg 06/19/18 18:10 06/21/18 22:52 Benadryl Injection - IVPUSH 12.5 mg ONCE PRN Administration FOR ITCHING Docusate Sodium 100 mg 06/19/18 18:10 Colace - PO BID PRN CONSTIPATION Gabapentin 300 mg 06/21/18 22:00 06/22/18 06:42 Neurontin - PO 300 mg TID LISA Administration Insulin Aspart 1 vial 06/19/18 22:00 06/22/18 06:42 Novolog Vial Sliding Scale - SQ 2 units ACHS LISA Administration Protocol Insulin Detemir 10 units 06/19/18 22:00 06/21/18 21:15 Levemir Vial SQ 10 units HS LISA Administration Lisinopril 5 mg 06/20/18 10:00 06/22/18 09:27 Prinivil PO 5 mg DAILY LISA Administration Mupirocin 1 applic 06/19/18 22:00 06/22/18 09:27 Bactroban Ointment (For Decolonization) - NS 06/24/18 21:59 1 applic BID LISA Administration Ondansetron HCl 4 mg 06/19/18 18:10 Zofran Injection IVPUSH Q6H PRN NAUSEA AND/OR VOMITING Oxycodone HCl 5 mg 06/22/18 10:36 Roxicodone - PO Q6H PRN PAIN LEVEL 4 - 6 Rivaroxaban 20 mg 06/22/18 18:00 Xarelto - PO DAILY@1800 LISA Torsemide 50 mg 06/20/18 10:00 06/21/18 11:40 Demadex - PO Not Given DAILY LISA Zolpidem Tartrate 5 mg 06/19/18 22:00 06/21/18 22:52 Ambien - PO 5 mg HS PRN Administration INSOMNIA ASSESSMENT/PLAN: 72 yo F who PMHx of HTN, IDDMII, Systolic CHF, Atrial Fibrillation, DVT on Xarelto, RA, Chronic back pain with multiple spinal surgeries, was sent to the hospital by her surgeon for admission due to progressive neurological weakness and was found to have hardware impinging on the nerves causing weakness and numbness of the right lower extremity. Patient now s/p Spinal Surgery and admitted to ICU for further monitoring and management. SURGERY Removal of hardware right L4-S1. 2. Inspection of fusion mass. 3. Pedicle subtraction osteotomy right L4 & L5. 4. Revision laminectomy right L4, L5. 5. Right L4-L5 foraminotomy & neurotomy. 6. Bone autograft. 7. Bone allograft. 8. Bone marrow aspiration -POD#3 -Pain control with Dilaudid [employer], fentanyl, neurontin, Tylenol, and Flexeril -Drain on gravity with no self suction, as per surgery -pt w/ flatus advance diet as tolerated -resume NOAC 72hrs post op -Incentive Spirometer -Strict I&O's with drain monitoring. Monitor Creatinine -PT/OT/Rehab when ambulating and OOB -WBAT B/L LE -dc adama, PT eval today -bowel regimen CARDIOLOGY Atrial Fibrillation -Currently rate controlled -C/w Coreg 25mg BID -C/w cardiac monitoring Systolic CHF -Currently not in acute exacerbation -C/w Torsemide 50mg daily -Monitor I&O's and creatinine -echo done: ef 50-55%; no regional wall motion abnormlaities; mild MR HTN -Continue home medication Coreg 25mg BID -Continue home medication Lisinopril 5mg daily -monitor BP ENDOCRINE IDDMII -BGM -ISS RA -C/w Leflunomide daily FEN -no IVF at this time -replete prn. -diabetic/low sodium diet Ppx -resume NOAC, Has a prior IVC filter -No GI required DISPO -Full code -pt stable and ready for transfer to floors. further care per primary team/PCP Visit type - Emergency Visit Emergency Visit: Yes ED Registration Date: 06/16/18 Care time: The patient presented to the Emergency Department on the above date and was hospitalized for further evaluation of their emergent condition. - New Patient This patient is new to me today: Yes Date on this admission: 06/22/18 - Critical Care Critical Care patient: Yes Total Critical Care Time (in minutes): 37 Critical Care Statement: The care of this patient involved high complexity decision making to prevent further life threatening deterioration of the patient 's condition and/or to evaluate & treat vital organ system(s) failure or risk of failure.
--- NOTE | 2018-06-22 11:43 | PN ---
Teaching Attending Note Name of Resident: Mar Whiteside ATTENDING PHYSICIAN STATEMENT I saw and evaluated the patient. I reviewed the resident's note and discussed the case with the resident. I agree with the resident's findings and plan as documented. SUBJECTIVE:asymptomatic. states pain is controlled. eager to get out of bed and attempt ambulation. denies Cp, SOB, fever, chills, N/V/C/D OBJECTIVE: Last Vital Signs Temp Pulse Resp BP Pulse Ox 98.0 F 71 14 119/62 100 06/22/18 06:00 06/22/18 06:00 06/22/18 09:00 06/22/18 06:00 06/22/18 09:00 Intake & Output 06/19/18 06/20/18 06/21/18 06/22/18 23:59 23:59 23:59 23:59 Intake Total 3150 2800 2900 Output Total 1030 2605 3190 120 Balance 2120 195 -290 -120 Weight 217 lb 6.889 oz 219 lb 223 lb 1.725 oz 228 lb 6.382 oz General NAD CV S1 S2 + no murmur/rub/gallop Lungs CTA B/L no wheezing/rales/rhonchi Abdomen soft NT/ND obese ASSESSMENT AND PLAN: 72 y.o. F w/ PMHx. of HTN, NIDDM, systolic CHF, RA, multiple spine surgeries, multiple hips surgeries, multiple abdominal surgeries, presents with worsening neurological lower extremity weakness 2/2 chronic back pain and hardware impinging on nerves. 1. Lumbar spinal stenosis with radiculopathy-s/p 1. Removal of hardware right L4 -S1. 2. Inspection of fusion mass. 3. Pedicle subtraction osteotomy right L4 & L5. 4. Revision laminectomy right L4, L5. 5. Right L4-L5 foraminotomy & neurotomy. 6. Bone autograft. 7. Bone allograft. 8. Bone marrow aspiration . hemovac in place. tolerating diet. laying flat due to durotomy repair per ortho. will d/c RAILWAY ENGINEER pump and transition to oral pain medications. PT eval. hemovac and further recommendations per ortho. pain control 2. Hypotension- likely due to pain medication. now controlled. 3. acute blood loss anemia- due to recent surgery. sangenous drainage in hemovac. Hgb stable. received cell-saver intra-operatively. no other signs of bleeding. no indication for transfusion 4. Hyperkalemia- s/p insulin and D50. kayxylate given. resolved 5. ELIZABETH- likely pre-renal. now resolved. renal u/s negative for acute pathology. renal on board 6. DM- hold oral agents. ISS and BGM 7. Systolic CHF- no signs of volume overload. re-start toresmide today. weight slowly increasing. cardo on board 8. Afib- rate controlled. re-start xarelto 9. RA_ on leflunomide 10. DVT ppx- Xarelto 11. MICU monitoring. stable for medical floors The care of this patient involved high complexity decision making to prevent further life threatening deterioration of the patient's condition and/or to evaluate & treat vital organ system(s) failure or risk of failure. 35 mins
--- NOTE | 2018-06-22 13:05 | PN ---
Teaching Attending Note Name of Resident: Doug Engle ATTENDING PHYSICIAN STATEMENT I saw and evaluated the patient. I reviewed the resident's note and discussed the case with the resident. I agree with the resident's findings and plan as documented. SUBJECTIVE: Pt seen and examined in the ICU. Pain controlled. No nausea or vomiting. No fevers or chills. OBJECTIVE: Vital Signs Period Temp Pulse Resp BP Sys/Marcelo Pulse Ox Last 24 Hr 98.0 F-98.8 F 66-92 12-23 97-146/37-91 100-100 Intake & Output 06/19/18 06/20/18 06/21/18 06/22/18 23:59 23:59 23:59 23:59 Intake Total 3150 2800 2900 Output Total 1030 2605 3190 120 Balance 2120 195 -290 -120 Weight 98.625 kg 99.337 kg 101.2 kg 103.6 kg Gen: NAD at rest Heart: RRR Lung: decreased breath sounds at the bases Abd: soft, nontender Ext: no edema CBC, BMP 06/22/18 05:30 06/21/18 05:30 Active Medications Acetaminophen (Tylenol -) 650 mg PO Q4H PRN PRN Reason: Fever Or Pain Last Admin: 06/22/18 02:25 Dose: 650 mg Carvedilol (Coreg -) 25 mg PO BID [facility] Last Admin: 06/22/18 09:26 Dose: 25 mg Chlorhexidine Gluconate (Hibiclens For Decolonization -) 1 applic TP HS [facility] Last Admin: 06/21/18 21:25 Dose: 1 applic Cyclobenzaprine HCl (Flexeril -) 10 mg PO DAILY [facility] Last Admin: 06/22/18 09:26 Dose: 10 mg Diphenhydramine HCl (Benadryl Injection -) 12.5 mg IVPUSH ONCE PRN PRN Reason: FOR ITCHING Last Admin: 06/21/18 22:52 Dose: 12.5 mg Docusate Sodium (Colace -) 100 mg PO BID PRN PRN Reason: CONSTIPATION Gabapentin (Neurontin -) 300 mg PO TID [facility] Last Admin: 06/22/18 06:42 Dose: 300 mg Insulin Aspart (Novolog Vial Sliding Scale -) 1 vial SQ [facility]; Protocol Last Admin: 06/22/18 11:40 Dose: Not Given Insulin Detemir (Levemir Vial) 10 units SQ HS [facility] Last Admin: 06/21/18 21:15 Dose: 10 units Lisinopril (Prinivil) 5 mg PO DAILY [facility] Last Admin: 06/22/18 09:27 Dose: 5 mg Mupirocin (Bactroban Ointment (For Decolonization) -) 1 applic NS BID [facility] Stop: 06/24/18 21:59 Last Admin: 06/22/18 09:27 Dose: 1 applic Ondansetron HCl (Zofran Injection) 4 mg IVPUSH Q6H PRN PRN Reason: NAUSEA AND/OR VOMITING Oxycodone HCl (Roxicodone -) 5 mg PO Q6H PRN PRN Reason: PAIN LEVEL 4 - 6 Rivaroxaban (Xarelto -) 20 mg PO DAILY@1800 [facility] Torsemide (Demadex -) 50 mg PO DAILY [facility] Last Admin: 06/21/18 11:40 Dose: Not Given Zolpidem Tartrate (Ambien -) 5 mg PO HS PRN PRN Reason: INSOMNIA Last Admin: 06/21/18 22:52 Dose: 5 mg ASSESSMENT AND PLAN: Lumbar Spinal Stenosis with Right L5 Radiculopathy s/p SHANIA L4-S1/Revision Laminectomy Right L4, L5/Right L4-L5 foraminotomy & neurotomy LV Systolic Dysfunction Atrial Fibrillation Acute Kidney Injury resolved HTN DM RA - pain control - incentive spirometry - bowel regimen - PO as tolerated - resume anticoagulation - DVT prophylaxis - can monitor on floor
[2018-06-22] MEDS ORDERED: ONDANSETRON 4 MG/2 ML VIAL IVPUSH PRN (13:26)
[2018-06-22] MEDS ORDERED: ZOLPIDEM TARTRATE 5 MG TABLET PO PRN (13:26)
[2018-06-22] MEDS ORDERED: DOCUSATE SODIUM 100 MG CAPSULE (FP) PO PRN (13:26)
[2018-06-22] MEDS ORDERED: ACETAMINOPHEN 325 MG TABLET (FP) PO PRN (13:26)
[2018-06-22] MEDS: oxyCODONE HCL 5 MG TABLET PO PRN (17:54)
[2018-06-22] MEDS ORDERED: RIVAROXABAN 20 MG TABLET PO SCH (18:00)
[2018-06-22] MEDS ORDERED: INSULIN (LEVEMIR) 100 UNITS/ML UNITS SQ SCH (22:00)
[2018-06-22] MEDS ORDERED: INSULIN (NOVOLOG) ASPART 100 UNITS/ML 10ML VIAL ONE (22:13)
[2018-06-23] MEDS: oxyCODONE HCL 5 MG TABLET PO PRN (00:43)
[2018-06-23] MEDS: INSULIN SLIDING SCALE (NOVOLOG) 1 VIAL SQ SCH ×3 (06:38→16:59)
[2018-06-23] MEDS: GABAPENTIN 300 MG CAPSULE (FP) PO SCH ×2 (06:38→13:26)
[2018-06-23 08:04] LABS: HEMATOCRIT 30.9 % (32.4-45.2); HEMOGLOBIN 9.9 GM/dL (10.7-15.3); MCH 29.6 pg (25.7-33.7); MCHC 32.1 g/dl (32.0-36.0); MEAN CELL VOLUME 92.3 fl (80-96); MEAN PLT VOLUME 7.8 fl (7.5-11.1); PLATELET COUNT 190 K/MM3 (134-434); RBC 3.35 M/mm3 (3.60-5.2); RDW 14.4 % (11.6-15.6); WHITE BLOOD COUNT 6.5 K/mm3 (4.0-10.0)
--- NOTE | 2018-06-23 09:19 | PATH ---
Surgical Pathology Report Patient Name: SHERI PADILLA [facility]. Rec. #: [id number] /Age/Gender: 1945 (Age: 72) / F Account: [id number] Location: [address] [place] [address]/[facility] Taken: 06/19/2018 Received: 06/20/2018 Reported: 06/23/2018 Physicians: Hien Buenrostro M.D. Specimen(s) Received A: PYOGENIC GRANULOMA FROM BACK B: REMOVED HARDWARE Clinical History Stenosis L4/L5/S1, L5/S1 instability Final Diagnosis A. PYOGENIC GRANULOMA OF BACK, EXCISION: FIBROADIPOSE TISSUE AND FRAGMENTED BONE WITH FOCAL DEGENERATIVE AND ORGANIZING EXUDATE MATERIAL. B. HARDWARE, REMOVAL: CONSISTENT WITH HARDWARE. GROSS EXAMINATION ONLY. Electronically Signed Heather Craig M.D. Gross Description A. Received in formalin labeled "pyogenic granuloma from back," is a 9.5 x 8.0 x 2.0 cm aggregate of multiple unoriented portions of ortiz-yellow fibrous tissue and bone with attached exudative material. Activity Aid sections are submitted in one cassette, following decalcification. B. Received fresh labeled "removed hardware," are 2 euceda metallic bent rods measuring 8.5 and 9.5 cm in length. Also received within the same container are 2 euceda metallic clamps measuring 3.0 and 4.5 cm in greatest dimension. There are 18 euceda metallic screws present within the same container ranging from 0.4-10.2 cm in length. No soft tissue is present. No sections are submitted, gross only. No06/20/2018 saudi/06/20/2018
[2018-06-23] MEDS ORDERED: PT OWN MED DRAWER 7, Y5N ONE (09:28)
[2018-06-23] MEDS: CARVEDILOL 25 MG TABLET (FP) PO SCH (09:46)
[2018-06-23] MEDS ORDERED: CYCLOBENZAPRINE HCL 10 MG TABLET (FP) PO SCH (10:00)
[2018-06-23] MEDS ORDERED: TORSEMIDE 100 MG TABLET PO SCH (10:00)
[2018-06-23] MEDS ORDERED: LISINOPRIL 5 MG TABLET (FP) PO SCH (10:00)
--- NOTE | 2018-06-23 12:01 | PN ---
Teaching Attending Note Name of Resident: Mar Whiteside ATTENDING PHYSICIAN STATEMENT I saw and evaluated the patient. I reviewed the resident's note and discussed the case with the resident. I agree with the resident's findings and plan as documented. SUBJECTIVE:states her pain has been well controlled and the numbness in the RLE has resolved. denies Cp, SOB, fever, chills, N/V/C/D +BM yesterday OBJECTIVE: Last Vital Signs Temp Pulse Resp BP Pulse Ox 98.6 F 82 18 105/61 95 06/23/18 10:00 06/23/18 10:00 06/23/18 10:00 06/23/18 10:00 06/23/18 09:00 Intake & Output 06/20/18 06/21/18 06/22/18 06/23/18 23:59 23:59 23:59 23:59 Intake Total 2800 2900 750 Output Total 2605 3190 600 35 Balance 195 -290 150 -35 Weight 219 lb 223 lb 1.725 oz 228 lb 6.382 oz 225 lb 5 oz General NAD ASSESSMENT AND PLAN: 72 y.o. F w/ PMHx. of HTN, NIDDM, systolic CHF, RA, multiple spine surgeries, multiple hips surgeries, multiple abdominal surgeries, presents with worsening neurological lower extremity weakness 2/2 chronic back pain and hardware impinging on nerves. 1. Lumbar spinal stenosis with radiculopathy-s/p 1. Removal of hardware right L4 -S1. 2. Inspection of fusion mass. 3. Pedicle subtraction osteotomy right L4 & L5. 4. Revision laminectomy right L4, L5. 5. Right L4-L5 foraminotomy & neurotomy. 6. Bone autograft. 7. Bone allograft. 8. Bone marrow aspiration . hemovac in place. will call ortho for removal. tolerating diet. awaiting PT eval to determine if home vs IVONNE. further recommendations per ortho. pain controlled with oral medications 2. Hypotension- likely due to pain medication. now controlled. 3. acute blood loss anemia- due to recent surgery. sangenous drainage in hemovac. Hgb stable. received cell-saver intra-operatively. no other signs of bleeding. no indication for transfusion 4. Hyperkalemia- s/p insulin and D50. kayxylate given. resolved 5. ELIZABETH- likely pre-renal. now resolved. renal u/s negative for acute pathology. renal on board 6. DM- hold oral agents. ISS and BGM 7. Systolic CHF- no signs of volume overload. resume home medications. cardo on board 8. Afib- rate controlled. xarelto 9. RA_ on leflunomide 10. DVT ppx- Xarelto 11. awaiting PT eval to determine if patient is safe for D/c home. Does not want IVONNE placement. will wait for recommendations of PT and discuss with pt afterwards pending on results. anticipate possible d/c home today
--- NOTE | 2018-06-23 12:42 | PN ---
Progress Note (short form) - Note Progress Note: Pt was seen at bedside and had back drain removed. Pt tolerated it well, some minimal serosanguionus drainage was noted. Clean dry dressing was placed.
[2018-06-23] MEDS ORDERED: INSULIN (NOVOLOG) ASPART 100 UNITS/ML 10ML VIAL ONE (16:58)
--- NOTE | 2018-06-23 17:34 | DS ---
Physical Exam: SUBJECTIVE: Patient seen and examined OBJECTIVE: Vital Signs Period Temp Pulse Resp BP Sys/Marcelo Pulse Ox Last 24 Hr 98 F-98.6 F 65-92 18-20 105-146/50-75 95-100 PHYSICAL EXAM GENERAL: The patient is awake, alert, and fully oriented, in no acute distress. HEAD: Normal with no signs of trauma. EYES: PERRL, extraocular movements intact, sclera anicteric, conjunctiva clear. ENT: Ears normal, nares patent, oropharynx clear without exudates, moist mucous membranes. NECK: Trachea midline, full range of motion, supple. LUNGS: Breath sounds equal, clear to auscultation bilaterally, no wheezes, no crackles, no accessory muscle use. HEART: Regular rate and rhythm, S1, S2 without murmur, rub or gallop. ABDOMEN: Soft, nontender, nondistended, normoactive bowel sounds, no guarding, no rebound, no hepatosplenomegaly, no masses. EXTREMITIES: 2+ pulses, warm, well-perfused, no edema. NEUROLOGICAL: Cranial nerves II through XII grossly intact. Normal speech, gait not observed. PSYCH: Normal mood, normal affect. SKIN: Warm, dry, normal turgor, no rashes or lesions noted. LABS Laboratory Results - last 24 hr 06/19/18 06/21/18 06/21/18 11:35 12:08 17:20 WBC RBC Hgb Hct MCV MCH MCHC RDW Plt Count MPV POC Glucometer 251.71390 [id number] Crossmatch IS Only See Detail 06/21/18 06/22/18 06/22/18 21:16 05:48 11:24 WBC RBC Hgb Hct MCV MCH MCHC RDW Plt Count MPV POC Glucometer 231.06539 264.94219 198.70303 Crossmatch IS Only 06/22/18 06/23/18 06/23/18 22:11 05:38 07:25 WBC 6.5 RBC 3.35 L Hgb 9.9 L Hct 30.9 L MCV 92.3 MCH 29.6 MCHC 32.1 RDW 14.4 Plt Count 190 MPV 7.8 POC Glucometer 272 257 Crossmatch IS Only 06/23/18 06/23/18 11:37 16:48 WBC RBC Hgb Hct MCV MCH MCHC RDW Plt Count MPV POC Glucometer 271 219 Crossmatch IS Only Microbiology 06/19/18 14:00 Tissue-Other Gram Stain - Final 06/19/18 14:00 Tissue-Other Tissue Culture - Final NO GROWTH OF AEROBIC ORGANISMS AFTER 48 HOURS INCUBATION 06/19/18 14:00 Tissue-Other Anaerobic Culture - Final NO ANAEROBES WERE ISOLATED 06/19/18 14:05 Back Gram Stain - Final 06/19/18 14:05 Back Wound Culture - Final NO GROWTH AFTER 48 HOURS INCUBATION Imaging lumbar spine XRAY: Impression: Spinal fusion revision. LAP-BAND device. Right hip replacement. IVC filter. Disc space replacements. Bone grafting. See discussion above. HOSPITAL COURSE: Date of Admission:06/16/18 Patient with a history of Afib HTN. CAD, multiple spine and abdominal surgeries presents to the ED with right lower extremity weakness and lumbar spine pain. She has had all of her other surgeries with Dr. Borjas, he did a CT myelogram which showed hardware impingement on the nerves causing the patients symptoms and he suggested she come to the ER for medical clearance for surgical procedure. Patient underwent an L3-S1 revision laminectomy with removal of hardware from L3 and durotomy repair. No intraoperative or postoperative complications took place and patient went to ICU for 3 days of monitoring where she had to lay flat postop for 72 hours. Her vitals and labs remained stable throughout her admission. She was then transferred [facility] floor where PT saw her a few times and patient was able to walk around 100 feet with her walker. 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 Date of Discharge: 06/23/18 Minutes to complete discharge: 39 Discharge Summary Reason For Visit: PROGRESSIVE NEUROLOGIST DEFICIT Current Active Problems Back pain (Acute) Progressive neurological deficit (Acute) Condition: Stable - Instructions Diet, Activity, Other Instructions: You came to the hospital with complaints of lower back pain and right lower extremity weakness after falling two months ago. A CT myelogram was done which showed hardware impinging on nerves which was causing your numbness and right lower extremity weakness. You were seen by your surgeon Dr. Borjas who felt you needed surgery. You underwent an L3-S1 revision laminectomy, removal of hardware from L3, and durotomy repair. Surgery went well with no intraoperative or post-operative complications. You were monitored in the ICU for a few days and then transferred up to the floors. We had the physical therapists come and evaluate and walk with you. You walked well with your walker and were agreeable to having home physical therapy come and work with you which will be starting tomorrow. The surgical scheduler came and removed the drain from your back and you were clinically stable enough for discharge home. Please resume all of your home medications: You were sent home with percocet, which should be used as needed for severe pain. This medication has habit forming tendencies and should be used only as instructed and remaining pills should be discarded. Do not drive or operate heavy machinery while taking this medication. Can also cause constipation and will need to ensure you are having regular bowel movements while taking it. If you run out of the medication and feel like you require more, you should contact your surgeon for prescription. Referrals: -we advise that you follow up with your primary care doctor, Dr. Figueroa in one week -we advise that you follow up with Dr. Borjas in 7 to 10 days at [facility] [place] office; call for appointment; *if you begin to experience any numbness/tingling, change in bowel habits, chest pain, shortness of breath, fevers or vomiting please return to the emergency room immediately Referrals: Andria Figueroa [Non Staff, Medical] - 1 Week Sreekanth Borjas MD [Staff Physician] - 1 Week - Home Medications Comprehensive Discharge Medication List: Ambulatory Orders Gabapentin 300 mg PO BID 03/04/14 Oxycodone HCl/Acetaminophen [Percocet 10-325 mg Tablet] 1 - 2 tab PO Q6H PRN Insulin Lispro Protamin/Lispro [Humalog Mix 75-25 Kwikpen] 22 unit SQ BID Multivitamins [Multivit ([facility] Formulary)] 1 tab PO DAILY 03/17/16 Cyclobenzaprine HCl [Flexeril -] 10 mg PO DAILY 06/01/17 Zolpidem Tartrate [Ambien] 10 mg PO HS PRN 06/01/17 Docusate Sodium [Colace -] 100 mg PO BID PRN #0 cap 06/03/17 Carvedilol [Coreg -] 25 mg PO BID 06/16/18 Lisinopril 5 mg PO DAILY 06/16/18 Torsemide 50 mg PO DAILY 06/16/18 Rivaroxaban [Xarelto -] 20 mg PO DAILY 06/22/18 Oxycodone HCl 5 mg PO Q6H PRN #12 tablet MDD 4 tabs 06/23/18 Problem List - Problems (1) Back pain Code(s): M54.9 - DORSALGIA, UNSPECIFIED Qualifiers: Back pain location: low back pain Chronicity: acute (2) Acute renal failure Code(s): N17.9 - ACUTE KIDNEY FAILURE, UNSPECIFIED Qualifiers: Acute renal failure type: unspecified Qualified Code(s): N17.9 - Acute kidney failure, unspecified This patient is new to me today: No Emergency Visit: Yes ED Registration Date: 06/16/18 Care time: The patient presented to the Emergency Department on the above date and was hospitalized for further evaluation of their emergent condition. Critical Care patient: No - Discharge Referral Referred to [facility] No
[2018-06-23 18:08] VITALS: BP 110/65; PULSE 79; TEMP 98.6
== END 2018-06-23 18:06 | disposition home or self-care (01) | DRG 460 ==
LOC: JER 18:36 → JERBED 21:46 → J7W 06-17 02:00 → JSAMEDAYSX 06-19 14:00 → JICU 06-19 22:29 → J6S 06-22 14:33
PROVIDERS: ADMIT Internal Medicine; ATTEND Internal Medicine
PROC: 0SP304Z Removal of Internal Fixation Device from Lumbosacral Joint, Open Approach (ICD-10-PCS; 2018-06-19)
PROC: 00QT0ZZ Repair Spinal Meninges, Open Approach (ICD-10-PCS; 2018-06-19)
PROC: 01NB0ZZ Release Lumbar Nerve, Open Approach (ICD-10-PCS; 2018-06-19)
PROC: 0SG30KJ Fusion of Lumbosacral Joint with Nonautologous Tissue Substitute, Posterior Approach, Anterior Column, Open Approach (ICD-10-PCS; 2018-06-19)
PROC: 4A10X4G Monitoring of Central Nervous Electrical Activity, Intraoperative, External Approach (ICD-10-PCS; 2018-06-19)
PROC: 0SG30AJ Fusion of Lumbosacral Joint with Interbody Fusion Device, Posterior Approach, Anterior Column, Open Approach (ICD-10-PCS; principal; 2018-06-19 11:30)
DX: T84.226A Displacement of internal fixation device of vertebrae, initial encounter (principal); N17.9 Acute kidney failure, unspecified; I50.22 Chronic systolic (congestive) heart failure; I42.8 Other cardiomyopathies; D62 Acute posthemorrhagic anemia; G96.11 Dural tear; M96.0 Pseudarthrosis after fusion or arthrodesis; M48.07 Spinal stenosis, lumbosacral region; I11.0 Hypertensive heart disease with heart failure; I25.10 Atherosclerotic heart disease of native coronary artery without angina pectoris; M54.17 Radiculopathy, lumbosacral region; E11.9 Type 2 diabetes mellitus without complications; T50.995A Adverse effect of other drugs, medicaments and biological substances, initial encounter; I95.2 Hypotension due to drugs; M54.9 Dorsalgia, unspecified; E87.5 Hyperkalemia; M06.9 Rheumatoid arthritis, unspecified; E66.9 Obesity, unspecified; Z68.39 Body mass index [BMI] 39.0-39.9, adult; L92.9 Granulomatous disorder of the skin and subcutaneous tissue, unspecified; I34.0 Nonrheumatic mitral (valve) insufficiency; R25.2 Cramp and spasm; R29.818 Other symptoms and signs involving the nervous system; I48.91 Unspecified atrial fibrillation; Y92.230 Patient room in hospital as the place of occurrence of the external cause; Y83.8 Other surgical procedures as the cause of abnormal reaction of the patient, or of later complication, without mention of misadventure at the time of the procedure; Z96.652 Presence of left artificial knee joint; Z96.649 Presence of unspecified artificial hip joint; Z87.891 Personal history of nicotine dependence; Z86.718 Personal history of other venous thrombosis and embolism; Z86.711 Personal history of pulmonary embolism
CPT/HCPCS: 36415; 71045-TC-FY; 71046-TC-FY; 72100-TC-FY; 76775-TC; 76856-TC; 80048; 80053; 81003; 81015; 82962; 83735; 84100; 85025; 85027; 85610; 85730; 86850; 86900; 86901; 86922; 87070; 87075; 87086; 87205; 88300-TC; 88304-TC; 93005; 93010; 93306-TC; 94760; 97116-GP; 97161-GP; 99283-25; J0131; J1644; J7030

== ENCOUNTER 2018-06-29 20:35 | Emergency (ER) | payer OTHER ==
--- NOTE | 2018-06-29 20:41 | PDOC ---
Attending Attestation - HPI HPI: 06/29/18 21:19 The patient is a 73 year old female, with a significant past medical history of systolic CHF, hypertension, IDDM, Afib, DVT (taking Xarelto), 7 days s/p Hardware removal from right L3S1 with right LE residual weakness, who presents to the emergency department with acute back pain for 2 hours after reportedly standing and reaching for something when she heard an audible crack followed by pain to her left lower back, just opposite to the area of hardware removal. She states she felt a bone move. She reports the pain is 10/10 in severity and unremitting. She states this is the worst pain she has ever had. The patient denies chest pain, shortness of breath, headache and dizziness. The patient denies fever, chills, nausea, vomit, diarrhea and constipation. The patient denies dysuria, frequency, urgency and hematuria. - Physicial Exam PE: 06/29/18 21:38 GENERAL: Awake, alert, and fully oriented, in no acute distress HEAD: No signs of trauma EYES: PERRLA, EOMI, sclera anicteric, conjunctiva clear ENT: Auricles normal inspection, hearing grossly normal, nares patent, oropharynx clear without exudates. Moist mucosa NECK: Normal ROM, supple, no lymphadenopathy, JVD, or masses LUNGS: Breath sounds equal, clear to auscultation bilaterally. No wheezes, and no crackles HEART: Regular rate and rhythm, normal S1 and S2, no murmurs, rubs or gallops ABDOMEN: Soft, nontender, normoactive bowel sounds. No guarding, no rebound. No masses EXTREMITIES: Normal range of motion, no edema. No clubbing or cyanosis. No cords, erythema, or tenderness MUSCULOSKELETAL: (+) Localized left paraspinal back tenderness. 1 cm area of wound dehiscence. NEUROLOGICAL: Cranial nerves II through XII grossly intact. Normal speech, gait unassessed secondary to pain. SKIN: Warm, Dry, normal turgor, no rashes or lesions noted. - Medical Decision Making 06/29/18 21:19 Documentation prepared by Yessy Cruz, acting as chief medical director for Shelly Maharaj MD 06/29/18 21:39 Dr. Borjas ([phone]) was paged via phone answering and the patient's case was discussed with Dr. Cummings. <Yessy Cruz - Last Filed: 06/29/18 21:40> - Resident Resident Name: Rosalia Cummings - ED Attending Attestation I have performed the following: I have examined & evaluated the patient, The case was reviewed & discussed with the resident, I agree w/resident's findings & plan - Medical Decision Making 06/29/18 21:34 Pt has paraspinal L3/L4 tenderness. States that the pain doesn't radiate anywhere and she has no pain going down her legs. Pt is adamantly refusing a rectal exam and perineal sensation exam. Pt is yelling that she wants pain meds and that she wants to go home. Pt has back spasm. She has pain with ROM of her leg, but she is able to range her legs. Her reflexes are blunted throughout her lower extremities at the knees and ankles. Pt has no fever and no chills. SHe has slight dehiscence of her surgical wound site. She has no surrounding swelling or erythema. Pt has no other complaints. She hasn't taken her percocet since this AM and she didn't take a flexeril all day. 06/29/18 22:33 Dr. Borjas, surgeon was called and we discussed the case. He agrees to no further imaging at this time, he recommends steri stripping pt's dehisced wound , and he will see pt as previously scheduled. Pt feels better with pain meds and muscle relaxants in the ER and she is ready to go home with her family. <Shelly Maharaj - Last Filed: 06/29/18 23:14>
--- NOTE | 2018-06-29 20:45 | PDOC ---
History of Present Illness - General Chief Complaint: Back Pain Stated Complaint: BACK PAIN Time Seen by Provider: 06/29/18 20:41 - History of Present Illness Initial Comments: 73 year old female with PMH of Afib, HTN, CAD, multiple spine and abdominal surgeries (s/p L4-S1 laminectomy, hardware revision, and bon graft 10 days prior ) presents to our ED with lower back pain after a twisting motion and lumbar spinal pain. States that she was reaching for a dish then felt a shift in her back but was still able to walk with only minor difficulty. However, when she sat down she felt as if her back stiffened up because she had a lot of difficulty walking. She called EMS because she was concerned that her hardware may have moved. Denies any bowel/ bladder incontinence, numbness/ tingling, or worsening muscular weakness. 06/29/18 20:42 Past History - Past Medical History Allergies/Adverse Reactions: Allergies Allergy/AdvReac Type Severity Reaction Status Date / Time levofloxacin [From Levaquin] Allergy Severe ANAPHYLAXIS Verified 06/29/18 20:53 methotrexate Allergy Severe Swelling Verified 06/29/18 20:53 Penicillins Allergy Mild Rash Verified 06/29/18 20:53 bumetanide [From Bumex] Allergy Rash Verified 06/29/18 20:53 piperacillin sodium AdvReac Mild Itching Verified 06/29/18 20:53 [From Zosyn] tazobactam sodium AdvReac Mild Itching Verified 06/29/18 20:53 [From Zosyn] Home Medications: Ambulatory Orders Gabapentin 300 mg PO BID 03/04/14 Oxycodone HCl/Acetaminophen [Percocet 10-325 mg Tablet] 1 - 2 tab PO Q6H PRN Insulin Lispro Protamin/Lispro [Humalog Mix 75-25 Kwikpen] 22 unit SQ BID Multivitamins [Multivit ([facility] Formulary)] 1 tab PO DAILY 03/17/16 Cyclobenzaprine HCl [Flexeril -] 10 mg PO DAILY 06/01/17 Zolpidem Tartrate [Ambien] 10 mg PO HS PRN 06/01/17 Docusate Sodium [Colace -] 100 mg PO BID PRN #0 cap 06/03/17 Carvedilol [Coreg -] 25 mg PO BID 06/16/18 Lisinopril 5 mg PO DAILY 06/16/18 Torsemide 50 mg PO DAILY 06/16/18 Rivaroxaban [Xarelto -] 20 mg PO DAILY 06/22/18 Oxycodone HCl 5 mg PO Q6H PRN #12 tablet MDD 4 tabs 06/23/18 Anemia: No Asthma: No Cancer: No Cardiac Disorders: Yes CVA: No COPD: No CHF: Yes DVT: Yes Dementia: No Diabetes: Yes GI Disorders: No Disorders: No HTN: Yes Hypercholesterolemia: Yes Liver Disease: No Seizures: No Thyroid Disease: No - Surgical History Abdominal Surgery: Yes (GASTRIC BANDING) Appendectomy: No Cardiac Surgery: No Cholecystectomy: Yes Lung Surgery: No Neurologic Surgery: Yes (4 BACK FUSIONS) Orthopedic Surgery: Yes (TKR RT 2004; SHOULDER SX RT, L. KNEE SURGERY-2012,, Rt hip Sx 10/2013 [facility]) - Immunization History Immunization Up to Date: Yes - Suicide/Smoking/Psychosocial Hx Smoking Status: No Smoking History: Former smoker Have you smoked in the past 12 months: No Number of Cigarettes Smoked Daily: 0 If you are a former smoker, when did you quit?: 40 YRS Hx Alcohol Use: No Drug/Substance Use Hx: No Substance Use Type: None Hx Substance Use Treatment: No Review of Systems - Review of Systems Constitutional: No: Chills, Diaphoresis, Fever, Loss of Appetite HEENTM: No: Blurred Vision, Tearing Respiratory: No: Cough, Orthopnea, Shortness of Breath, Stridor Cardiac (ROS): No: Chest Pain, Edema, Irregular Heart Rate, Lightheadedness, Palpitations ABD/GI: No: Diarrhea, Nausea, Vomiting : No: Dysuria, Discharge, Frequency Musculoskeletal: Yes: Back Pain, Muscle Weakness. No: Joint Pain, Neck Pain Integumentary: No: Bruising, Lesions, Lumps, Pallor, Pruritus Neurological: Yes: Pre-Existing Deficit (Right sided lower estremity weakness). No: Headache, Numbness, Paresthesia Psychiatric: No: Anxiety, Depression Hematologic/Lymphatic: Yes: Blood Clots. No: Anemia, Easy Bleeding *Physical Exam - Physical Exam General Appearance: Yes: Nourished, Appropriately Dressed, Apparent Distress, Mild Distress HEENT: positive: EOMI, EMILIANA, Normal ENT Inspection, Normal Voice Neck: positive: Trachea midline, Normal Thyroid, Supple. negative: Tender, Rigid Respiratory/Chest: positive: Lungs Clear, Normal Breath Sounds. negative: Chest Tender, Respiratory Distress, Accessory Muscle Use Cardiovascular: positive: Regular Rhythm, Regular Rate Gastrointestinal/Abdominal: positive: Normal Bowel Sounds, Flat, Soft. negative : Tender Musculoskeletal: positive: Muscle Spasm (left sided paraspinal tenderness on L2- L3). negative: Normal Inspection Extremity: positive: Normal Capillary Refill, Normal Inspection. negative: Normal Range of Motion, Tender Integumentary: positive: Normal Color, Dry, Warm Neurologic: positive: vibrator operator II-XII NML intact, Fully Oriented, Alert, Normal Mood/ Affect, Normal Response, Motor Strength 5/5, Other (no reflexes apreciated in bl lower extremity but sensation intact with exception of surgical site.) Medical Decision Making - Medical Decision Making 73 year old female 10 days s/p lumbar-sacral spinal hardware revision with pain in her left paraspinal lumbar region after reaching for a dish. Physical exam concerning for muscular spasm vs. strain as pain is worse with movement and point tender over L2-L3 left side paraspinal musculature. XR negative for fracture or hardware movement with agreement by telephone conversation and remote imaging viewing by Dr. Borjas. Pain slightly improved after precocet x2 and robaxin x 1. Wound was covered with steri-strip to help closure. DC'd patient with follow up with [place] next . 06/29/18 21:04 *DC/Admit/Observation/Transfer Diagnosis at time of Disposition: Back pain Qualifiers: Back pain location: low back pain Chronicity: acute Back pain laterality: left Sciatica presence: without sciatica Qualified Code(s): M54.5 - Low back pain - Discharge Dispostion Disposition: HOME Condition at time of disposition: Improved Decision to Admit order: No - Referrals Referrals: Sreekanth Borjas MD [Staff Physician] - - Patient Instructions Additional Instructions: Please use your percocet and flexural for your back pain. You should also use a heat pack. Please keep engaging in gentle activity so that your muscles do not completely stiffen up. - Post Discharge Activity
[2018-06-29 20:56] VITALS: BMI 29.2
[2018-06-29] MEDS ORDERED: METHOCARBAMOL 500 MG TABLET PO ONE (21:32)
[2018-06-29] MEDS ORDERED: METHOCARBAMOL 500 MG TABLET ONE (21:39)
[2018-06-29 22:50] VITALS: BP 130/81; PULSE 92; TEMP 98.3
== END 2018-06-29 22:50 | disposition home or self-care (01) ==
LOC: JER 20:35
DX: M54.5 Low back pain (principal); R29.818 Other symptoms and signs involving the nervous system; X50.9XXA Other and unspecified overexertion or strenuous movements or postures, initial encounter; Y93.89 Activity, other specified; Y92.018 Other place in single-family (private) house as the place of occurrence of the external cause; Y99.8 Other external cause status; I11.0 Hypertensive heart disease with heart failure; I50.9 Heart failure, unspecified; E11.9 Type 2 diabetes mellitus without complications; Z79.4 Long term (current) use of insulin; I48.91 Unspecified atrial fibrillation; Z79.01 Long term (current) use of anticoagulants; Z86.718 Personal history of other venous thrombosis and embolism; Z96.651 Presence of right artificial knee joint; Z96.641 Presence of right artificial hip joint; Z98.890 Other specified postprocedural states
CPT/HCPCS: 72100-TC-FY; 99281-25

== ENCOUNTER 2018-07-02 18:24 | Inpatient (IN) | payer OTHER ==
--- NOTE | 2018-07-02 18:37 | PDOC ---
Attending Attestation - HPI HPI: 07/02/18 21:06 The patient is a 73-year-old female with past medical history HTN, NIDDM, CHF, RA presents to the emergency department with back pain. The patient is s/p back surgery on 06/19 and discharged on 06/23. The patient reports she was moving something when she felt something shifts in her back. The patient presents with L. side and L. hip pain, denies weakness or numbness, denies recent fall or trauma. The patient denies the pain is radiating the patient reports taking 20 mg x2 percocet or with a muscle relaxant. The patient reports her last bowel movement was earlier today, denies hematochezia or melena. The patient states she has an appointment with Dr. Borjas on 07/06/2018. Denies fever, chills, dysuria, urinary or bowel incontinence, abdominal pain, diarrhea, constipation. Allergies: levofloxacin, methotrexate, Penicillins, bumetanide, piperacillin sodium, tazobactam sodium Social history: Former smoker, no alcohol or drug use reported. Surgical history: L3-S1 revision laminectomy with removal of hardware from L3 and durotomy repair (by Dr. Borjas 06/19/2018). Hip replacement (2017), knee replacement s/p left knee infected. Hysterectomy, and left salpingo-oophorectomy , cholecystectomy. PCP: Dr. Andria Figueroa - Physicial Exam PE: 07/02/18 21:24 GENERAL: +Morbid obese. Awake, alert, and fully oriented, in no acute distress HEAD: No signs of trauma EYES: PERRLA, EOMI, sclera anicteric, conjunctiva clear ENT: Auricles normal inspection, hearing grossly normal, nares patent, oropharynx clear without exudates. Moist mucosa NECK: Normal ROM, supple, no lymphadenopathy, JVD, or masses LUNGS: Breath sounds equal, clear to auscultation bilaterally. No wheezes, and no crackles HEART: Regular rate and rhythm, normal S1 and S2, no murmurs, rubs or gallops ABDOMEN: Soft, nontender, normoactive bowel sounds. No guarding, no rebound. No masses EXTREMITIES: Normal range of motion, no edema. Wiggle her toes, sensation intact , pedial pulse intact, Cant move the legs secondary to pain, not weakness. Musculoskeletal: Midline incision on the back with steristrp in place, dry gauze no erthema or drainage. No induration or fluctuance. No tenderness to palpation. No paraspinal tenderness or reproducible tenderness. NEUROLOGICAL: Neuro intact in the legs. Cranial nerves II through XII grossly intact. Normal speech. SKIN: Warm, Dry, normal turgor, no rashes or lesions noted. - Medical Decision Making 07/02/18 21:06 Documentation prepared by Roseann Willingham, acting as medical art therapist for Brianne Luu DO. <Roseann Willingham - Last Filed: 07/02/18 21:24> - Resident Resident Name: Marie Steen - ED Attending Attestation I have performed the following: I have examined & evaluated the patient, The case was reviewed & discussed with the resident, I agree w/resident's findings & plan, Exceptions are as noted - Medical Decision Making 07/02/18 18:37 I, Dr. Brianne Luu DO, attest that this document has been prepared under my direction and personally reviewed by me in its entirety. I further attest, that it accurately reflects all work, treatment, procedures and medical decision -making performed by me. 07/02/18 20:07 a/p: 73yo female with recent lumbar spine surgery with Dr. Borjas earlier this month -pt was trying to reach for an item and stretched her L low back -no radiation of the pain -steristrips in place to lumbar spine - no drainage from site, no redness -no midline ttp -no fluctuance or induration palpated -no back pain that could be reproducible on palpation -pt underwent xray imaging 3 days ago that did not show acute pathology to the L low back -pt states she has been unable to move since this episode and has L low back pain -has paresthesias to RLE that were there prior to surgery -neurovasc intact distal to feet -will send labs, ua, ct lumbar spine -will discuss with Dr. Borjas 07/02/18 22:17 pt feeling much better at this time 07/02/18 23:48 pt with post op seroma resident discussed the case with Dr. Borjas who recommends admission and he will consult [facility] 07/03/18 00:19 case discussed with Brain roberts [facility] who accepts pt to service <Brianne Luu - Last Filed: 07/03/18 00:20> *DC/Admit/Observation/Transfer - Discharge Dispostion Decision to Admit order: Yes <Brianne Luu - Last Filed: 07/03/18 00:20> Diagnosis at time of Disposition: Postoperative pain - Discharge Dispostion Condition at time of disposition: Fair
--- NOTE | 2018-07-02 19:16 | PDOC ---
History of Present Illness - General Chief Complaint: Back Pain Stated Complaint: BACK PAIN Time Seen by Provider: 07/02/18 18:32 - History of Present Illness Initial Comments: 07/02/18 22:53 Patient is a 73 year old female with past medical history of HTN, NIDDM, nonischemic cardiomyopathy, systolic CHF, DVT on Xarelto, Rheumatoid arthritis, multiple spinal and bilateral hip surgeries, s/p L4-S1 laminectomy, hardware revision, and bone graft (06/19), presented with persistent low back pain that started 3 days ago after a twisting motion, causing low back pain/stiffening, as well as left hip pain. She was seen at the ED afterwards where lumbar xray ruled out fracture. She was given percocet and flexeril and was discharged home. She was to follow-up with Dr. Borjas this . Patient reported the pain was never relieved despite taking percocet and muscle relaxants round the clock, staying in bed most times of the day. She denies any bowel/ bladder incontinence, numbness/ tingling, or worsening muscular weakness, no fever, chills, headache, n/v. Past History - Past Medical History Allergies/Adverse Reactions: Allergies Allergy/AdvReac Type Severity Reaction Status Date / Time levofloxacin [From Levaquin] Allergy Severe ANAPHYLAXIS Verified 07/02/18 18:43 methotrexate Allergy Severe Swelling Verified 07/02/18 18:43 Penicillins Allergy Mild Rash Verified 07/02/18 18:43 bumetanide [From Bumex] Allergy Rash Verified 07/02/18 18:43 piperacillin sodium AdvReac Mild Itching Verified 07/02/18 18:43 [From Zosyn] tazobactam sodium AdvReac Mild Itching Verified 07/02/18 18:43 [From Zosyn] Home Medications: Ambulatory Orders Gabapentin 300 mg PO BID 03/04/14 Oxycodone HCl/Acetaminophen [Percocet 10-325 mg Tablet] 1 - 2 tab PO Q6H PRN Insulin Lispro Protamin/Lispro [Humalog Mix 75-25 Kwikpen] 22 unit SQ BID Multivitamins [Multivit ([facility] Formul[facility])] 1 tab PO DAILY 03/17/16 Zolpidem Tartrate [Ambien] 10 mg PO HS PRN 06/01/17 Docusate Sodium [Colace -] 100 mg PO BID PRN #0 cap 06/03/17 Carvedilol [Coreg -] 25 mg PO BID 06/16/18 Lisinopril 5 mg PO DAILY 06/16/18 Torsemide 50 mg PO DAILY 06/16/18 Rivaroxaban [Xarelto -] 20 mg PO DAILY 06/22/18 Cyclobenzaprine HCl [Flexeril 10 mg] 10 mg PO TID #90 tablet 07/08/18 Lidocaine Patch Removal [Lidoderm Patch Removal] 1 each MC DAILY@2200 14 Days # 14 each 07/10/18 Anemia: No Asthma: No Cancer: No Cardiac Disorders: Yes CVA: No COPD: No CHF: Yes DVT: Yes Dementia: No Diabetes: Yes GI Disorders: No Disorders: No HTN: Yes Hypercholesterolemia: Yes Liver Disease: No Seizures: No Thyroid Disease: No - Surgical History Abdominal Surgery: Yes (GASTRIC BANDING) Appendectomy: No Cardiac Surgery: No Cholecystectomy: Yes Lung Surgery: No Neurologic Surgery: Yes (4 BACK FUSIONS) Orthopedic Surgery: Yes (TKR RT 2004; SHOULDER SX RT, L. KNEE SURGERY-2012,, Rt hip Sx 10/2013 [facility]) - Immunization History Immunization Up to Date: Yes - Suicide/Smoking/Psychosocial Hx Smoking Status: No Smoking History: Former smoker Have you smoked in the past 12 months: No Number of Cigarettes Smoked Daily: 0 If you are a former smoker, when did you quit?: 40 YRS Information on smoking cessation initiated: No Hx Alcohol Use: No Drug/Substance Use Hx: No Substance Use Type: None Hx Substance Use Treatment: No Trauma Specific PMHX - Complaint Specific PMHX Arthritis: No Back Injury: Yes (hx) Neck Injury: No Hx Sacro Iliac Joint Dysfunction: No *Physical Exam - Vital Signs Last Vital Signs Temp Pulse Resp BP Pulse Ox 97.8 F 78 17 95/61 100 07/02/18 18:38 07/02/18 18:38 07/02/18 18:38 07/02/18 18:38 07/02/18 18:38 ED Treatment Course - LABORATORY CBC & Chemistry Diagram: 07/08/18 06:00 07/08/18 06:00 Medical Decision Making - Medical Decision Making 07/02/18 19:13 Patient is a 73 year old female with past medical history of HTN, NIDDM, nonischemic cardiomyopathy, systolic CHF, DVT on Xarelto, Rheumatoid arthritis, multiple spinal and bilateral hip surgeries, s/p L4-S1 laminectomy, hardware revision, and bone graft (06/19), presented with persistent low back pain that started 3 days ago after a twisting motion, causing low back pain/stiffening, as well as left hip pain. She was seen at the ED afterwards where lumbar xray ruled out fracture. She was given percocet and flexeril and was discharged home. She was to follow-up with Dr. Borjas this . Patient reported the pain was never relieved despite taking percocet and muscle relaxants round the clock, staying in bed most times of the day. She denies any bowel/ bladder incontinence, numbness/ tingling, or worsening muscular weakness, no fever, chills, headache, n/v. General: awake, alert, oriented, NAD HEENT: PERRLA, EOMI, no nasal discharge, moist mucous membranes Neck: supple, trachea midline, without LAD Lung: clear to auscultation bilaterally Heart: regular rate and rhythm, normal S1/S2, no m,r,g Abdomen: soft, nontender, nondistended, NABS MSK/Neuro: +Left paraspinal tenderness, 3/5 motor strength limited due to pain, sensation diminished on the RLE DDX includes but not limited to muscular strain, abscess, fracture, radiculopathy CBC, CMP, UA Lumbar CT scan without contrast Valium 5mg PO 07/02/18 22:59 Patient reports improvement of back pain. 07/02/18 23:[address] Borjas, will admit patient for pain management and he will see patient in the morning *DC/Admit/Observation/Transfer Diagnosis at time of Disposition: Postoperative pain - Discharge Dispostion Condition at time of disposition: Stable - Prescriptions - Referrals - Patient Instructions - Post Discharge Activity
[2018-07-02] MEDS ORDERED: diazePAM 5 MG TABLET PO ONE (19:37)
[2018-07-02] MEDS ORDERED: diazePAM 5 MG TABLET ONE (19:51)
[2018-07-02 20:13] LABS: BASO % 1.3 % (0-2.0); EOS % 3.6 % (0-4.5); HEMATOCRIT 34.8 % (32.4-45.2); HEMOGLOBIN 11.8 GM/dL (10.7-15.3); MCH 31.1 pg (25.7-33.7); MEAN CELL VOLUME 91.6 fl (80-96); MEAN PLT VOLUME 7.7 fl (7.5-11.1); MONO % 9.4 % (3.8-10.2); NEUT % 66.7 % (42.8-82.8); PLATELET COUNT 302 K/MM3 (134-434); WHITE BLOOD COUNT 8.3 K/mm3 (4.0-10.0)
[2018-07-02 21:04] LABS: ALBUMIN 2.6 g/dl (3.4-5.0); ALK PHOS 145 U/L (45-117); ANION GAP 9 MMOL/L (8-16); BILIRUBIN,TOTAL 0.3 mg/dL (0.2-1); BLOOD UREA NITROGEN 18 mg/dL (7-18); CALCIUM 8.2 mg/dL (8.5-10.1); CHLORIDE 106 mmol/L (98-107); CO2 27 mmol/L (21-32); CREATININE 0.9 mg/dL (0.55-1.3); GLUCOSE,RANDOM 212 mg/dL (74-106); SGOT/AST 11 U/L (15-37); SGPT/ALT 14 U/L (13-61); SODIUM 141 mmol/L (136-145)
--- NOTE | 2018-07-03 00:13 | PN ---
Teaching Attending Note Name of Resident: Brain Laughlin ATTENDING PHYSICIAN STATEMENT I saw and evaluated the patient. I reviewed the resident's note and discussed the case with the resident. I agree with the resident's findings and plan as documented. SUBJECTIVE: Patient is a 73 year old woman with past medical history of HTN, NIDDM, nonischemic cardiomyopathy, systolic CHF, DVT on Xarelto, Rheumatoid arthritis, multiple spinal and bilateral hip surgeries, s/p L4-S1 laminectomy, hardware revision, and bone graft (06/19), presented with persistent low back pain that started 3 days ago after a twisting motion, causing low back pain/stiffening, as well as left hip pain. She was seen at the ED afterwards where lumbar xray ruled out fracture. She was given percocet and flexeril and was discharged home. She was to follow-up with Dr. Borjas this . Patient reported the pain was never relieved despite taking percocet and muscle relaxants round the clock, staying in bed most times of the day. She denies any bowel/ bladder incontinence, numbness/ tingling, or worsening muscular weakness, no fever, chills, headache, n/v. OBJECTIVE: Alert Vital Signs Period Temp Pulse Resp BP Sys/Marcelo Pulse Ox Last 24 Hr 97.8 F 78 17 95/61 100 HEENT: No Jaundice, eye redness or discharge, PERRLA, EOMI. Normocephalic, atraumatic. External ears are normal and hearing is grossly intact. No nasal discharge. Neck: Supple, nontender. No palpable adenopathy or thyromegaly. No JVD Chest: Good effort. Clear to auscultation and percussion. Heart: Regular. No S3, rub or murmur Abdomen: Not distended, soft, nontender and no HSM. No rebound or guarding. Normoactive bowel sounds. Ext: Peripheral pulses intact. No leg edema. Skin: Warm and dry. No petechiae, rash or ecchymosis. Midline incision on the back with steristrp in place, dry gauze no erthema or drainage. No induration or fluctuance. No paraspinal tenderness or reproducible tenderness. Neuro: Alert. Oriented x3. CN 2-12 grossly intact. Sensation grossly intact in all four extremities and DTR are symmetric. Home Medications Medication Instructions Recorded Gabapentin 300 mg PO BID 03/04/14 Oxycodone HCl/Acetaminophen 1 - 2 tab PO Q6H PRN 03/04/14 [Percocet 10-325 mg Tablet] Insulin Lispro Protamin/Lispro 22 unit SQ BID 12/15/15 [Humalog Mix 75-25 Kwikpen] Multivitamins [Multivit ([facility] 1 tab PO DAILY 03/17/16 Formulary)] Zolpidem Tartrate [Ambien] 10 mg PO HS PRN 06/01/17 Docusate Sodium [Colace -] 100 mg PO BID PRN #0 cap 06/03/17 Carvedilol [Coreg -] 25 mg PO BID 06/16/18 Lisinopril 5 mg PO DAILY 06/16/18 Torsemide 50 mg PO DAILY 06/16/18 Rivaroxaban [Xarelto -] 20 mg PO DAILY 06/22/18 Abnormal Lab Results 07/02/18 20:15 Random Glucose 212 H Calcium 8.2 L AST 11 L Alkaline Phosphatase 145 H Total Protein 6.0 L Albumin 2.6 L ASSESSMENT AND PLAN: 1. Post op pain/seroma - CT spine showing 15x8x3 cm fluid collection extending from T12 to L5. No evidence that antibiotics are indicated at this time - will await analysis of fluid when it is drained and cultured. Continue pain control. Consult PT and surgery. 2. Hypoalbuminemia - Possibly due to combined effects of malnutrition and inflammation associated with comorbid chronic conditions. Rule out proteinuria. Will ensure adequate dietary protein intake and also consult cable rigger. 3. DM - Check HbAic. For now, we will hold the home diabetes drugs and implement sliding scale insulin regimen. Provide comprehensive diabetes care with patient teaching and counseling about the importance of euglycemia, eye care and foot care. 4. Obesity - Will provide patient all the necessary assistance, counseling and positive reinforcement to facilitate weight loss. Consult cable rigger. 5. DVT prophylaxis - On Xarelto 6. Advance directives - Full code
[2018-07-03] MEDS ORDERED: MORPHINE SULFATE 2 MG/ML VIAL IVPUSH PRN (01:08)
--- NOTE | 2018-07-03 01:17 | HP ---
CHIEF COMPLAINT: PCP: Dr. Yap HISTORY OF PRESENT ILLNESS: The patient is a 73 yo f w/ PMH HTN, DM, nonischemic cardiomyopathy, systolic CHF, DVT on Xarelto, Rheumatoid arthritis, multiple spinal and bilateral hip surgeries, s/p L4-S1 laminectomy, hardware revision, and bone graft on 06/19 with [place] who presents to the ED c/o persistent low back pain that started 3 days ago. Patient was home and made a pushing motion, after which she felt left hip and back pain and stiffening. She was seen in the ED 06/29, where lumbar xray ruled out fracture. Dr. Paniagua was consulted and the patient was given percocet and flexeril and was discharged home. Since this day, the patient has been bed bound and unable to stand due to extreme pain which was refractory to the medications she was given. She denies any bowel/ bladder incontinence, numbness / tingling, or worsening muscular weakness, no fever, chills, headache, n/v. ER course was notable for: (1) CT spine showing 15x8x3 cm fluid collection extending from T12 to L5 (2) Valium (3) Recent Travel: None PAST MEDICAL HISTORY: See HPI PAST SURGICAL HISTORY: 4 spinal surgeries Gastric banding Social History: Smoking: never smoker Alcohol: none Drugs: none Family History: non-contributory Allergies levofloxacin [From Levaquin] Allergy (Severe, Verified 07/02/18 18:43) ANAPHYLAXIS methotrexate Allergy (Severe, Verified 07/02/18 18:43) Swelling BLISTERS; ALSO ALLERGY TO PCN MANY YRS AGO Penicillins Allergy (Mild, Verified 07/02/18 18:43) Rash bumetanide [From Bumex] Allergy (Verified 07/02/18 18:43) Rash piperacillin sodium [From Zosyn] Adverse Reaction (Mild, Verified 07/02/18 18:43 ) Itching tazobactam sodium [From Zosyn] Adverse Reaction (Mild, Verified 07/02/18 18:43) Itching HOME MEDICATIONS: Home Medications Medication Instructions Recorded Gabapentin 300 mg PO BID 03/04/14 Oxycodone HCl/Acetaminophen 1 - 2 tab PO Q6H PRN 03/04/14 [Percocet 10-325 mg Tablet] Insulin Lispro Protamin/Lispro 22 unit SQ BID 12/15/15 [Humalog Mix 75-25 Kwikpen] Multivitamins [Multivit ([facility] 1 tab PO DAILY 03/17/16 Form[facility])] Zolpidem Tartrate [Ambien] 10 mg PO HS PRN 06/01/17 Docusate Sodium [Colace -] 100 mg PO BID PRN #0 cap 06/03/17 Carvedilol [Coreg -] 25 mg PO BID 06/16/18 Lisinopril 5 mg PO DAILY 06/16/18 Torsemide 50 mg PO DAILY 06/16/18 Rivaroxaban [Xarelto -] 20 mg PO DAILY 06/22/18 REVIEW OF SYSTEMS CONSTITUTIONAL: Absent: fever, chills, diaphoresis, generalized weakness, malaise, loss of appetite, weight change HEENT: Absent: rhinorrhea, nasal congestion, throat pain, throat swelling, difficulty swallowing, mouth swelling, ear pain, eye pain, visual changes CARDIOVASCULAR: Absent: chest pain, syncope, palpitations, irregular heart rate, lightheadedness , peripheral edema RESPIRATORY: Absent: cough, shortness of breath, dyspnea with exertion, orthopnea, wheezing, stridor, hemoptysis GASTROINTESTINAL: Absent: abdominal pain, abdominal distension, nausea, vomiting, diarrhea, constipation, melena, hematochezia GENITOURINARY: Absent: dysuria, frequency, urgency, hesitancy, hematuria, flank pain, genital pain MUSCULOSKELETAL: Absent: myalgia, arthralgia, joint swelling SKIN: Absent: rash, itching, pallor HEMATOLOGIC/IMMUNOLOGIC: Absent: easy bleeding, easy bruising, lymphadenopathy, frequent infections ENDOCRINE: Absent: unexplained weight gain, unexplained weight loss, heat intolerance, cold intolerance NEUROLOGIC: Absent: headache, focal weakness or paresthesias, dizziness, unsteady gait, seizure, mental status changes, bladder or bowel incontinence PSYCHIATRIC: Absent: anxiety, depression, suicidal or homicidal ideation, hallucinations. PHYSICAL EXAMINATION Vital Signs - 24 hr 07/02/18 18:38 Temperature 97.8 F Pulse Rate 78 Respiratory 17 Rate Blood Pressure 95/61 O2 Sat by Pulse 100 Oximetry (%) GENERAL: Awake, alert, and fully oriented, in no acute distress. HEAD: Normal with no signs of trauma. EYES: Pupils equal, round and reactive to light, extraocular movements intact, sclera anicteric, conjunctiva clear. No lid lag. NECK: Normal range of motion, supple without lymphadenopathy, JVD, or masses. LUNGS: Breath sounds equal, clear to auscultation bilaterally. No wheezes, and no crackles. No accessory muscle use. HEART: Regular rate and rhythm, normal S1 and S2 without murmur, rub or gallop. ABDOMEN: Soft, nontender, not distended, normoactive bowel sounds, no guarding, no rebound, no masses. No hepatomegaly or splenomegaly. MUSCULOSKELETAL: normal ROM in both upper extremities. ROM severely limited in LE 2/2 pain LOWER EXTREMITIES: 2+ pulses, warm, well-perfused. No calf tenderness. No peripheral edema. NEUROLOGICAL: Cranial nerves II-X intact. Normal speech. unable to assess strength in LE as patient in pain. PSYCHIATRIC: Cooperative. Good eye contact. Appropriate mood and affect. SKIN: Warm, dry, normal turgor, no rashes or lesions noted, normal capillary refill. Laboratory Results - last 24 hr 07/02/18 07/02/18 20:00 20:15 WBC 8.3 RBC 3.80 Hgb 11.8 Hct 34.8 MCV 91.6 MCH 31.1 MCHC 34.0 RDW 15.0 Plt Count 302 D MPV 7.7 Absolute Neuts (auto) 5.5 Neutrophils % 66.7 D Lymphocytes % 19.0 D Monocytes % 9.4 Eosinophils % 3.6 Basophils % 1.3 Nucleated RBC % 0 Sodium 141 Potassium 4.0 Chloride 106 Carbon Dioxide 27 Anion Gap 9 BUN 18 Creatinine 0.9 Creat Clearance w eGFR > 60 Random Glucose 212 H Calcium 8.2 L Total Bilirubin 0.3 AST 11 L ALT 14 Alkaline Phosphatase 145 H Total Protein 6.0 L Albumin 2.6 L ASSESSMENT/PLAN: 73 yo f w/ PMH multiple back surgeries in the past comes in c/o intractable pain for the past 2 days found to have a paraspinal fluid collection. #back pain s/p fusion and instrumentation revision likely 2/2 paraspinal post op fluid collection -Dr. Borjas consulted from the ED; advised pain control and admission. Will see patient in AM -pain control with Valium 5mg q6h and Morphine 2mg q4h -patient without fever or white count at this time. Abscess less likely. Will hold off on ABX for now. #FEN -no fluids indicated -lytes WNL -DM diet #prophy -patient on xarelto #dispo -admit med surg Visit type - Emergency Visit Emergency Visit: Yes ED Registration Date: 07/03/18 Care time: The patient presented to the Emergency Department on the above date and was hospitalized for further evaluation of their emergent condition. - New Patient This patient is new to me today: Yes Date on this admission: 07/03/18 - Critical Care Critical Care patient: No
[2018-07-03] MEDS ORDERED: MORPHINE SULFATE 2 MG/ML VIAL ONE (04:00)
[2018-07-03] MEDS ORDERED: diazePAM 5 MG TABLET ONE (04:00)
[2018-07-03] MEDS: diazePAM 5 MG TABLET PO PRN ×2 (04:06→20:44)
[2018-07-03] MEDS ORDERED: HYDROmorphone HCl 2 MG/ML VIAL ONE ×2 (05:44→12:26)
[2018-07-03] MEDS: HYDROmorphone HCL CARPU-JECT 2 MG/1 ML DISP.SYRIN IVPB PRN ×2 (05:51→12:40)
[2018-07-03 05:53] LABS: HEMATOCRIT 32.1 % (32.4-45.2); HEMOGLOBIN 10.3 GM/dL (10.7-15.3); MCH 29.8 pg (25.7-33.7); MCHC 32.1 g/dl (32.0-36.0); MEAN CELL VOLUME 92.7 fl (80-96); MEAN PLT VOLUME 7.4 fl (7.5-11.1); PLATELET COUNT 268 K/MM3 (134-434); RBC 3.46 M/mm3 (3.60-5.2); RDW 14.4 % (11.6-15.6); WHITE BLOOD COUNT 7.6 K/mm3 (4.0-10.0)
[2018-07-03] MEDS ORDERED: HEPARIN NA (PORCINE) 5,000 UNITS/ML 1ML VIAL SQ SCH (06:00)
[2018-07-03 06:34] LABS: INR 2.73 (0.83-1.09); PROTHROMBIN TIME (PATIENT) 32.5 SEC (9.7-13.0)
[2018-07-03 06:47] LABS: ANION GAP 10 MMOL/L (8-16); BLOOD UREA NITROGEN 19 mg/dL (7-18); CALCIUM 8.3 mg/dL (8.5-10.1); CHLORIDE 104 mmol/L (98-107); CO2 26 mmol/L (21-32); CREATININE 0.8 mg/dL (0.55-1.3); GLUCOSE,RANDOM 193 mg/dL (74-106); PHOSPHOROUS 3.8 mg/dL (2.5-4.9); POTASSIUM 3.8 mmol/L (3.5-5.1); SODIUM 140 mmol/L (136-145)
[2018-07-03] MEDS: INSULIN SLIDING SCALE (NOVOLOG) 1 VIAL SQ SCH ×4 (08:31→22:26)
[2018-07-03] MEDS ORDERED: INSULIN (NOVOLOG) ASPART 100 UNITS/ML 10ML VIAL ONE ×2 (08:32→12:31)
[2018-07-03] MEDS: GABAPENTIN 300 MG CAPSULE (FP) PO SCH ×2 (09:58→22:26)
[2018-07-03] MEDS ORDERED: CARVEDILOL 25 MG TABLET (FP) PO SCH (10:00)
[2018-07-03] MEDS ORDERED: LISINOPRIL 5 MG TABLET (FP) PO SCH (10:00)
--- NOTE | 2018-07-03 10:55 | EKG ---
Test Reason : Blood Pressure : / mmHG Vent. Rate : 079 BPM Atrial Rate : 079 BPM P-R Int : 166 ms QRS Dur : 084 ms QT Int : 428 ms P-R-T Axes : 072 071 101 degrees QTc Int : 490 ms SINUS RHYTHM WITH OCCASIONAL PREMATURE VENTRICULAR COMPLEXES OTHERWISE NORMAL ECG WHEN COMPARED WITH ECG OF 20-JUN-2018 09:54, PREMATURE VENTRICULAR COMPLEXES ARE NOW PRESENT T WAVE VARIATION Confirmed by JANA CHOU, KAYLA ([id number]) on 07/03/2018 10:54:32 AM Referred By: Confirmed By:KAYLA BATES MD
--- NOTE | 2018-07-03 12:38 | PN ---
Progress Note, Physician Chief Complaint: patient seen and examined complaining of left sided lower back pain and unable to bear weight on her legs and walk since patient came back form CT and MRI reports pending - Current Medication List Current Medications: Active Medications Carvedilol (Coreg -) 25 mg PO BID [facility] Last Admin: 07/03/18 09:58 Dose: 25 mg Diazepam (Valium -) 5 mg PO Q8H PRN PRN Reason: PAIN LEVEL 1-5 Last Admin: 07/03/18 04:06 Dose: 5 mg Docusate Sodium (Colace -) 100 mg PO Q12H PRN PRN Reason: CONSTIPATION Gabapentin (Neurontin -) 300 mg PO BID [facility] Last Admin: 07/03/18 09:58 Dose: 300 mg Hydromorphone HCl (Dilaudid Injection -) 1 mg IVPB Q6H PRN PRN Reason: PAIN LEVEL 6-10 Last Admin: 07/03/18 05:51 Dose: 1 mg Insulin Aspart (Novolog Vial Sliding Scale -) 1 vial SQ [facility]; Protocol Last Admin: 07/03/18 12:29 Dose: 4 units Lisinopril (Prinivil) 5 mg PO DAILY [facility] Last Admin: 07/03/18 09:58 Dose: 5 mg Rivaroxaban (Xarelto -) 20 mg PO DAILY@1800 [facility] Zolpidem Tartrate (Ambien -) 10 mg PO HS PRN PRN Reason: INSOMNIA - Objective Vital Signs: Vital Signs Temperature 98.5 F 07/03/18 10:48 Pulse Rate 91 H 07/03/18 10:48 Respiratory Rate 16 07/03/18 10:48 Blood Pressure 108/61 07/03/18 10:48 O2 Sat by Pulse Oximetry (%) 99 07/03/18 10:48 Constitutional: Yes: Mild Distress Cardiovascular: Yes: Regular Rate and Rhythm, S1, S2 Respiratory: Yes: CTA Bilaterally Gastrointestinal: Yes: Normal Bowel Sounds, Soft, Abdomen, Obese Edema: No Neurological: Yes: Alert, Oriented Labs: CBC, BMP 07/03/18 05:22 07/03/18 05:22 INR, PTT INR 2.73 (0.83-1.09) H 07/03/18 05:22 Problem List - Problems (1) Postoperative pain Assessment/Plan: dr braden to see patient awainting MRI and ct scan official report hold xarelto for now till seen by dr braden patient is currently NPO pain control Code(s): G89.18 - OTHER ACUTE POSTPROCEDURAL PAIN (2) History of DVT (deep vein thrombosis) Assessment/Plan: h/o DVT and PE on xarelto- hold for now till seen by surgery if no intervention will resume s/p ivc filter Code(s): Z86.718 - PERSONAL HISTORY OF OTHER VENOUS THROMBOSIS AND EMBOLISM (3) Chronic systolic heart failure Assessment/Plan: cotninue coreg and acei Code(s): I50.22 - CHRONIC SYSTOLIC (CONGESTIVE) HEART FAILURE
[2018-07-03] MEDS ORDERED: SODIUM CHLORIDE 500 ML IV STA (15:14)
--- NOTE | 2018-07-03 15:20 | PN ---
Progress Note (short form) - Note Progress Note: patient BP on low side will dc coreg 25mg bid and lisinopril 5 mg daily patient is NPO til cleared by surgery will give ivf bolus and then standing fluids for now lumbar ct scan and MRI pending results xarelto on hold for now till seen by surgery if no intervention by surgery will resume xarelto Problem List - Problems (1) Postoperative pain Code(s): G89.18 - OTHER ACUTE POSTPROCEDURAL PAIN (2) History of DVT (deep vein thrombosis) Code(s): Z86.718 - PERSONAL HISTORY OF OTHER VENOUS THROMBOSIS AND EMBOLISM (3) Chronic systolic heart failure Code(s): I50.22 - CHRONIC SYSTOLIC (CONGESTIVE) HEART FAILURE
[2018-07-03] MEDS ORDERED: VANCOMYCIN 1 GRAM (PRE-DOCKED) 1,000 MG/250 ML BAG IVPB ONE (19:15)
[2018-07-03] MEDS ORDERED: FLU VACCINE QUAD 60 MCG/0.5 ML (MDV 18-19) IM ONE (19:35)
[2018-07-03] MEDS: RIVAROXABAN 20 MG TABLET PO SCH (19:35)
[2018-07-03] MEDS: SODIUM CHLORIDE 1,000 ML IV SCH (19:46)
[2018-07-03] MEDS: HYDROmorphone HCl 2 MG/ML VIAL IVPB PRN (19:46)
--- NOTE | 2018-07-03 19:52 | PN ---
Progress Note (short form) - Note Progress Note: Status post recent surgery to L Spine Marked improvement of the R LE pain All gone New onset pain L buttock. Leaned foreward to push an object on a table. Sudden pain in L Buttock and extending to proximolateral thigh. Not neural in nature No increase in pain on valsalva maneuver Rest of history no change O/E Motor and sensory assessment of LE fully intact SLR 90degrees SST negative Vascular assessment fully intact MRI Abnormal signal gluteal muscle belly on the Left PLAN Will discuss with radiologist Admit to medical hospitalist service for pain management and med assessment PT Mobilize FWBAT Pain mx
[2018-07-03] MEDS: ZOLPIDEM TARTRATE 5 MG TABLET PO PRN (23:31)
[2018-07-04] MEDS: HYDROmorphone HCl 2 MG/ML VIAL IVPB PRN ×4 (01:39→23:31)
[2018-07-04] MEDS: INSULIN SLIDING SCALE (NOVOLOG) 1 VIAL SQ SCH ×4 (06:27→21:56)
[2018-07-04] MEDS: diazePAM 5 MG TABLET PO PRN ×2 (06:27→20:36)
[2018-07-04 07:02] LABS: BASO % 1.3 % (0-2.0); EOS % 4.3 % (0-4.5); HEMATOCRIT 29.4 % (32.4-45.2); HEMOGLOBIN 9.6 GM/dL (10.7-15.3); LYMPH % 28.3 % (8-40); MCH 29.9 pg (25.7-33.7); MCHC 32.7 g/dl (32.0-36.0); MEAN CELL VOLUME 91.4 fl (80-96); MEAN PLT VOLUME 7.6 fl (7.5-11.1); MONO % 12.7 % (3.8-10.2); NEUT % 53.4 % (42.8-82.8); PLATELET COUNT 244 K/MM3 (134-434); RBC 3.21 M/mm3 (3.60-5.2); RDW 14.3 % (11.6-15.6); WHITE BLOOD COUNT 6.2 K/mm3 (4.0-10.0)
[2018-07-04 07:25] LABS: ALBUMIN 2.2 g/dl (3.4-5.0); ALK PHOS 133 U/L (45-117); ANION GAP 8 MMOL/L (8-16); BILIRUBIN,TOTAL 0.4 mg/dL (0.2-1); BLOOD UREA NITROGEN 17 mg/dL (7-18); CALCIUM 7.9 mg/dL (8.5-10.1); CHLORIDE 106 mmol/L (98-107); CO2 25 mmol/L (21-32); CREATININE 0.7 mg/dL (0.55-1.3); GLUCOSE,RANDOM 191 mg/dL (74-106); POTASSIUM 3.6 mmol/L (3.5-5.1); SGOT/AST 10 U/L (15-37); SGPT/ALT 11 U/L (13-61); SODIUM 139 mmol/L (136-145); TOT PROT 5.4 g/dl (6.4-8.2)
[2018-07-04] MEDS: GABAPENTIN 300 MG CAPSULE (FP) PO SCH ×2 (09:13→21:53)
[2018-07-04] MEDS ORDERED: HYDROmorphone HCl 2 MG/ML VIAL IVPB ONE (11:00)
--- NOTE | 2018-07-04 11:55 | PN ---
Progress Note, Physician Chief Complaint: Intractable post op pain - Current Medication List Current Medications: Active Medications Diazepam (Valium -) 5 mg PO Q8H PRN PRN Reason: PAIN LEVEL 1-5 Last Admin: 07/04/18 06:27 Dose: 5 mg Docusate Sodium (Colace -) 100 mg PO Q12H PRN PRN Reason: CONSTIPATION Gabapentin (Neurontin -) 300 mg PO BID [facility] Last Admin: 07/04/18 09:13 Dose: 300 mg Hydromorphone HCl (Dilaudid Vial -) 1 mg IVPB Q6H PRN PRN Reason: PAIN LEVEL 6-10 Last Admin: 07/04/18 08:39 Dose: 1 mg Sodium Chloride (Normal Saline -) 1,000 mls @ 75 mls/hr IV [facility] Last Admin: 07/03/18 19:46 Dose: 75 mls/hr Insulin Aspart (Novolog Vial Sliding Scale -) 1 vial SQ [facility]; Protocol Last Admin: 07/04/18 11:04 Dose: 4 units Rivaroxaban (Xarelto -) 20 mg PO DAILY@1800 [facility] Last Admin: 07/03/18 19:35 Dose: Not Given Zolpidem Tartrate (Ambien -) 10 mg PO HS PRN PRN Reason: INSOMNIA Last Admin: 07/03/18 23:31 Dose: 10 mg - Objective Vital Signs: Vital Signs Temperature 98 F 07/04/18 08:44 Pulse Rate 85 07/04/18 08:44 Respiratory Rate 18 07/04/18 09:00 Blood Pressure 129/68 07/04/18 08:44 O2 Sat by Pulse Oximetry (%) 99 07/03/18 10:48 Labs: CBC, BMP 07/04/18 06:00 07/04/18 06:00 INR, PTT INR 2.73 (0.83-1.09) H 07/03/18 05:22
--- NOTE | 2018-07-04 12:46 | PN ---
Progress Note (short form) - Note Progress Note: ID Consult dictated Chart reviewed, pt seen. MRI reviewed with radiologist Observe off antibiotics Surgical follow up
[2018-07-04] MEDS: SODIUM CHLORIDE 1,000 ML IV SCH ×2 (12:48→16:54)
--- NOTE | 2018-07-04 13:26 | CONS ---
INFECTIOUS DISEASE CONSULTATION DATE OF CONSULTATION: DATE OF DICTATION: 06/14/2018 The patient is a 73-year-old female evaluated for paraspinal fluid collection. Patient has had a history of chronic back pain and has had multiple spinal surgeries. She had a previous laminectomy with hardware. The patient was taken to the operating room on June 19, 2018, for revision of the laminectomy and removal of hardware. Postoperatively, her course was complicated by low back pain. She is now readmitted. An MRI performed on July 03, 2018, was reviewed with the radiologist. It shows postoperative changes as well as a large fluid collection extending from the level of approximately T1 down to L5-S1. She denies any fever or chills. Her white blood cell count is normal. Her wound has been healing well without evidence of infection. PAST MEDICAL HISTORY: Positive for chronic back pain, lumbar spinal stenosis, rheumatoid arthritis, hypertension, congestive heart failure, diabetes mellitus. PAST SURGICAL HISTORY: Status post hysterectomy, cholecystectomy, right total knee replacement. ALLERGIES: PENICILLIN, LEVAQUIN, METHOTREXATE. Patient is unaware of the nature of the PENICILLIN allergy, however, denies history of anaphylaxis. According to the notes, she has a history of anaphylaxis with LEVAQUIN. MEDICATIONS: At the present time include Xarelto, Neurontin, Valium, Colace, Dilaudid. SOCIAL HISTORY: Lives at home with family members. She is a former smoker. LABORATORY DATA: White count 6.2, hematocrit 29.4, platelet count 244. Creatinine 0.7. Blood cultures are pending. SYSTEMS REVIEW: Neurologic: No loss of consciousness, seizure activity. Cardiac: Negative chest pain or palpitations. Respiratory: Negative cough or sputum production. Gastrointestinal: Negative vomiting or diarrhea. Genitourinary: Negative for urinary tract infection. PHYSICAL EXAMINATION: General: She is in moderate distress secondary to back pain. Vital Signs: Temperature 98.0, blood pressure 129/68, pulse 85, respirations 20 per minute. HEENT: Sclerae are anicteric. Heart: Sounds S1, S2. Lungs: Clear. Abdomen: Obese, soft, nontender. Back: Surgical wound appears to be healing well without evidence of infection. No erythema or wound drainage. Extremities: Edema 1+. Negative Homans sign. MRI reviewed with the radiologist. Patient has a fluid collection, most likely a seroma which was present on MRI done in August of this year. No clinical evidence of wound infection or evidence of systemic infection. Patient is afebrile with a normal white blood cell count. Would observe off antibiotic therapy. Neurosurgical followup. Thank you for the kind referral. ORIANA CANO M.D. [id number]
--- NOTE | 2018-07-04 16:56 | PN ---
Progress Note, Physician Chief Complaint: 73 year old F with history of HTN, DMII, nonischemic cardiomyopathy, systolic CHF, DVT on Xarelto, Rheumatoid arthritis, multiple spinal and bilateral hip surgeries, s/p L4-S1 laminectomy, hardware revision, and bone graft (06/19), presented with persistent low back pain x 3 days. Pt reports her post-op pain has been persistent despite being on opiates for pain control. She presented to ED via EMS on 06/29 for acute pain which occured after attempting to olive picker a plate. X-Ray was negative for fracture or hardware movement. Wound was covered with steri-strip and pt's pain had improved with percocet x2 and robaxin x 1. Decision made to discharge patient home with outpt follow up with Dr. braden. Pt re-presented on 07/03 with acute 10/10 PAS, decreased ability to perform ADLs and severe mobility impairment. STAT CT spine demonstrates 15x8x3 cm fluid collection extending from T12 to L5. - Current Medication List Current Medications: Active Medications Diazepam (Valium -) 5 mg PO Q8H PRN PRN Reason: PAIN LEVEL 1-5 Last Admin: 07/04/18 06:27 Dose: 5 mg Docusate Sodium (Colace -) 100 mg PO Q12H PRN PRN Reason: CONSTIPATION Gabapentin (Neurontin -) 300 mg PO BID [facility] Last Admin: 07/04/18 09:13 Dose: 300 mg Hydromorphone HCl (Dilaudid Vial -) 2 mg IVPB Q6H PRN PRN Reason: PAIN LEVEL 6-10 Sodium Chloride (Normal Saline -) 1,000 mls @ 75 mls/hr IV ASDIR [facility] Last Admin: 07/04/18 12:48 Dose: 75 mls/hr Insulin Aspart (Novolog Vial Sliding Scale -) 1 vial SQ [facility]; Protocol Last Admin: 07/04/18 11:04 Dose: 4 units Multivitamins/Minerals/Vitamin C (Tab-A-Vit -) 1 tab PO DAILY [facility] Rivaroxaban (Xarelto -) 20 mg PO DAILY@1800 [facility] Last Admin: 07/03/18 19:35 Dose: Not Given Torsemide (Demadex -) 50 mg PO DAILY [facility] Zolpidem Tartrate (Ambien -) 10 mg PO HS PRN PRN Reason: INSOMNIA Last Admin: 07/03/18 23:31 Dose: 10 mg - Objective Vital Signs: Vital Signs Temperature 98.3 F 07/04/18 14:45 Pulse Rate 83 07/04/18 14:45 Respiratory Rate 18 07/04/18 14:45 Blood Pressure 116/65 07/04/18 14:45 O2 Sat by Pulse Oximetry (%) 99 07/03/18 10:48 Constitutional: Yes: Well Nourished, No Distress, Calm Eyes: Yes: Conjunctiva Clear, EOM Intact, PERRL HENT: Yes: Atraumatic, Normocephalic Neck: Yes: Supple Respiratory: Yes: Regular, CTA Bilaterally Gastrointestinal: Yes: Soft, Abdomen, Obese, Hyperactive Bowel Sounds ...Rectal Exam: Yes: Deferred Musculoskeletal: Yes: Back Pain, Joint Stiffness, Muscle Pain, Muscle Weakness Extremities: Yes: WNL Edema: No Peripheral Pulses WNL: Yes Peripheral Pulses: Left Radial: 2+, Right Radial: 2+, Left Doralis Pedis: 2+, Right Dorsalis Pedis: 2+ Wound/Incision: Yes: Clean/Dry, Dressing Dry and Intact, Other (mild peripheral redness) Neurological: Yes: Alert, Oriented, Unsteady Gait, Weakness ...Motor Strength: LLE (reduced strength 3/5), RLE (reduced strength 3/5) Psychiatric: Yes: Alert, Oriented Labs: CBC, BMP 07/04/18 06:00 07/04/18 06:00 INR, PTT INR 2.73 (0.83-1.09) H 07/03/18 05:22 - ....Imaging Cat Scan: Report Reviewed (CT L-spine 07/03 15x8x3 cm fluid collection extending from T12 to L5.) MRI: Report Reviewed (MRI pelvis 07/03 Impression:total right hip prosthesis. No evidence of infection. Avascular necrosis of left femoral head when compared to previous MRI on 03/01/2018. The surgical screws at the level of L5 and the sacrum were extracted with residual bone marrow edema of the S1 which may be post-op in nature or evolving early infection. A hairline fracure is identified on sagittal T2 image #20. Large post op fluid collection extending from L2-S1 which may be related to a largest seroma. underlying infection cannot be excluded) Problem List - Problems (1) Pain in lower back Assessment/Plan: pain control with neurontin 300mg BID and dilaudid 2mg Q6 PRN Valium 5mg qhs for muscle relaxation pt followed by Dr. Garcia for pain management, recommendations appreciated Code(s): M54.5 - LOW BACK PAIN Qualifiers: Chronicity: acute (2) Chronic systolic heart failure Assessment/Plan: gentle hydration strict intake and output daily weight resume torsemide 50mg in the AM Code(s): I50.22 - CHRONIC SYSTOLIC (CONGESTIVE) HEART FAILURE (3) History of DVT (deep vein thrombosis) Assessment/Plan: resume Xarelto on 07/05, confirm with surgeon Dr. Braden that no invasive procedures are imminent SCDs for now Code(s): Z86.718 - PERSONAL HISTORY OF OTHER VENOUS THROMBOSIS AND EMBOLISM (4) Hypertension Assessment/Plan: cardiac diet Code(s): I10 - ESSENTIAL (PRIMARY) HYPERTENSION (5) Obstructive sleep apnea Assessment/Plan: Monitor for apneic events BIPAP qhs if warranted Code(s): G47.33 - OBSTRUCTIVE SLEEP APNEA (ADULT) (PEDIATRIC) (6) Insomnia disorder Assessment/Plan: ambien 10mg qhs PRN monitor for oversedation with concurrent administration of valium and dilaudid sleep hygeine measures reinforced Code(s): G47.00 - INSOMNIA, UNSPECIFIED (7) Prophylactic measure Assessment/Plan: reposition patient q2hrs senna/ colace bowel regimen Code(s): Z29.9 - ENCOUNTER FOR PROPHYLACTIC MEASURES, UNSPECIFIED (8) Type 2 diabetes mellitus Assessment/Plan: cardiac/diabetic diet Insulin sliding scale with meals and bedtime Code(s): E11.9 - TYPE 2 DIABETES MELLITUS WITHOUT COMPLICATIONS Impression/Plan Impression/Plan: DISPO: Full code reinstate [employer] services upon discharge pt should have outpt follow up appointments scheduled prior to d/c home Visit type - Emergency Visit Emergency Visit: Yes ED Registration Date: 07/03/18 Care time: The patient presented to the Emergency Department on the above date and was hospitalized for further evaluation of their emergent condition. - New Patient This patient is new to me today: Yes Date on this admission: 07/04/18 - Critical Care Critical Care patient: No - Discharge Referral Referred to [facility] No
[2018-07-04] MEDS: RIVAROXABAN 20 MG TABLET PO SCH (17:14)
[2018-07-04] MEDS ORDERED: SENNOSIDES 8.6MG TABLET (FP) PO PRN (17:38)
[2018-07-04] MEDS ORDERED: POTASSIUM CHLORIDE TABS 20 MEQ TABLET.ER (FP) PO ONE (17:50)
[2018-07-04] MEDS ORDERED: TORSEMIDE 100 MG TABLET PO ONE (18:00)
--- NOTE | 2018-07-04 19:43 | PN ---
Progress Note (short form) - Note Progress Note: Pain at the lumbar sacral junction toward the Left PSIS No leg pain No pain on Vasalva Continuous and not neuralgic in character. Neuro exam Fully intact. Spine wound dry Local tenderness over L PSIS Vitals are stable Blood glucose elevated MRI My evaluation in a soft tissue collection in the gluteal region. PLAN Ultrasound to evaluate area to exclude a fluid collection. If collection then Ultrasound guided aspiration. Continue Pain Mx. Stop the xeralto at present
[2018-07-04] MEDS: ZOLPIDEM TARTRATE 5 MG TABLET PO PRN (23:32)
[2018-07-05] MEDS: HYDROmorphone HCl 2 MG/ML VIAL IVPB PRN ×2 (06:23→17:41)
[2018-07-05] MEDS: INSULIN SLIDING SCALE (NOVOLOG) 1 VIAL SQ SCH ×4 (06:29→23:25)
[2018-07-05 07:23] LABS: BASO % 1.3 % (0-2.0); EOS % 4.1 % (0-4.5); HEMOGLOBIN 10.9 GM/dL (10.7-15.3); LYMPH % 24.2 % (8-40); MCH 29.4 pg (25.7-33.7); MEAN CELL VOLUME 92.1 fl (80-96); MEAN PLT VOLUME 7.8 fl (7.5-11.1); MONO % 11.3 % (3.8-10.2); NEUT % 59.1 % (42.8-82.8); PLATELET COUNT 257 K/MM3 (134-434); RBC 3.69 M/mm3 (3.60-5.2); RDW 14.6 % (11.6-15.6); WHITE BLOOD COUNT 6.9 K/mm3 (4.0-10.0)
[2018-07-05 07:37] LABS: INR 1.15 (0.83-1.09); PROTHROMBIN TIME (PATIENT) 13.6 SEC (9.7-13.0)
[2018-07-05 08:08] LABS: SERUM IRON SATURATION 13 % (15-55); TOTAL IRON BINDING CAPACITY 253 ug/dL (250-450); UIBC 220 ug/dL (118-369)
[2018-07-05 08:23] LABS: ALBUMIN 2.5 g/dl (3.4-5.0); ALK PHOS 155 U/L (45-117); ANION GAP 8 MMOL/L (8-16); BILIRUBIN,TOTAL 0.4 mg/dL (0.2-1); BLOOD UREA NITROGEN 17 mg/dL (7-18); CALCIUM 8.3 mg/dL (8.5-10.1); CHLORIDE 107 mmol/L (98-107); CO2 26 mmol/L (21-32); CREATININE 0.8 mg/dL (0.55-1.3); GLUCOSE,RANDOM 197 mg/dL (74-106); MAGNESIUM 1.9 mg/dL (1.8-2.4); POTASSIUM 4.2 mmol/L (3.5-5.1); SGOT/AST 11 U/L (15-37); SGPT/ALT 11 U/L (13-61); SODIUM 141 mmol/L (136-145); TOT PROT 5.9 g/dl (6.4-8.2)
[2018-07-05] MEDS ORDERED: TORSEMIDE 100 MG TABLET PO SCH (10:00)
[2018-07-05] MEDS: diazePAM 5 MG TABLET PO PRN (10:05)
[2018-07-05] MEDS: GABAPENTIN 300 MG CAPSULE (FP) PO SCH ×2 (10:06→23:25)
[2018-07-05] MEDS: MULTIVITAMINS (DAILY MVI) TABLET (FP) PO SCH (10:06)
[2018-07-05] MEDS: DOCUSATE SODIUM 100 MG CAPSULE (FP) PO PRN ×2 (10:06→23:25)
--- NOTE | 2018-07-05 10:59 | PN ---
Physical Exam: SUBJECTIVE: Patient seen and examined at bedside. patient is still complaining of a lot of pain, feels that this pain is unlike any pain shes ever experienced - she said that if she doesn't move the pain feels ok but moving makes the pain about a 10/10 at its worse- however, it is not associated with any radiculopathy and it is continuous only in the lumbar region, does not radiate down the leg. OBJECTIVE: Vital Signs Period Temp Pulse Resp BP Sys/Marcelo Pulse Ox Last 24 Hr 97.7 F-98.5 F 83-97 -18 116-136/55-75 GENERAL: The patient is awake, alert, laying flat in some acute distress. EYES: no scleral icterus, no JVD NECK: no JVD, no lympahdenopathy LUNGS: diminished breath sounds HEART: Regular rate and rhythm, S1, S2 without murmur, rub or gallop. ABDOMEN: Soft, nontender, nondistended, normoactive bowel sounds, no guarding, no rebound, no hepatosplenomegaly, no masses. EXTREMITIES: 2+ pulses, warm, well-perfused, trace edema. lower extremity range of motion assessed: full ROM in RLE LLE< limited as patient was in pain NEUROLOGICAL: sensation intact B/L . SKIN: Warm, dry, normal turgor, no rashes or lesions noted Laboratory Results - last 24 hr 07/04/18 07/04/18 07/04/18 06:00 11:03 17:13 WBC RBC Hgb Hct MCV MCH MCHC RDW Plt Count MPV Absolute Neuts (auto) Neutrophils % Lymphocytes % Monocytes % Eosinophils % Basophils % Nucleated RBC % PT with INR INR Sodium Potassium Chloride Carbon Dioxide Anion Gap BUN Creatinine Creat Clearance w eGFR POC Glucometer 247 275 Random Glucose Calcium Magnesium Iron 33 TIBC 253 Iron Saturation 13 L Total Bilirubin AST ALT Alkaline Phosphatase Total Protein Albumin 07/04/18 07/05/18 07/05/18 21:54 06:10 06:10 WBC 6.9 RBC 3.69 Hgb 10.9 Hct 34.0 D MCV 92.1 MCH 29.4 MCHC 32.0 RDW 14.6 Plt Count 257 MPV 7.8 Absolute Neuts (auto) 4.1 Neutrophils % 59.1 Lymphocytes % 24.2 Monocytes % 11.3 H Eosinophils % 4.1 Basophils % 1.3 Nucleated RBC % 0 PT with INR 13.60 H INR 1.15 H Sodium Potassium Chloride Carbon Dioxide Anion Gap BUN Creatinine Creat Clearance w eGFR POC Glucometer 329 Random Glucose Calcium Magnesium Iron TIBC Iron Saturation Total Bilirubin AST ALT Alkaline Phosphatase Total Protein Albumin 07/05/18 07/05/18 06:10 06:25 WBC RBC Hgb Hct MCV MCH MCHC RDW Plt Count MPV Absolute Neuts (auto) Neutrophils % Lymphocytes % Monocytes % Eosinophils % Basophils % Nucleated RBC % PT with INR INR Sodium 141 Potassium 4.2 Chloride 107 Carbon Dioxide 26 Anion Gap 8 BUN 17 Creatinine 0.8 Creat Clearance w eGFR > 60 POC Glucometer 216 Random Glucose 197 H Calcium 8.3 L Magnesium 1.9 Iron TIBC Iron Saturation Total Bilirubin 0.4 AST 11 L ALT 11 L Alkaline Phosphatase 155 H Total Protein 5.9 L Albumin 2.5 L Active Medications Generic Name Dose Route Start Last Admin Trade Name Freq PRN Reason Stop Dose Admin Diazepam 5 mg 07/03/18 01:08 07/05/18 10:05 Valium - PO 5 mg Q8H PRN Administration PAIN LEVEL 1-5 Docusate Sodium 100 mg 07/03/18 01:34 Colace - PO Q12H PRN CONSTIPATION Gabapentin 300 mg 07/03/18 10:00 07/05/18 10:06 Neurontin - PO 300 mg BID LISA Administration Hydromorphone HCl 2 mg 07/04/18 15:12 07/05/18 06:23 Dilaudid Vial - IVPB 2 mg Q6H PRN Administration PAIN LEVEL 6-10 Insulin Aspart 1 vial 07/03/18 07:00 07/05/18 06:29 Novolog Vial Sliding Scale - SQ 4 units ACHS LISA Administration Protocol Multivitamins/Minerals/Vitamin C 1 tab 07/05/18 10:00 07/05/18 10:06 Tab-A-Vit - PO 1 tab DAILY LISA Administration Senna 2 tab 07/04/18 17:38 Senna - PO HS PRN CONSTIPATION Zolpidem Tartrate 10 mg 07/03/18 01:34 07/04/18 23:32 Ambien - PO 10 mg HS PRN Administration INSOMNIA ASSESSMENT/PLAN: 73 yo f w/ PMH multiple back surgeries in the past comes in c/o intractable pain for the past 2 days found to have a paraspinal fluid collection. #back pain s/p fusion and instrumentation revision likely 2/2 paraspinal post op fluid collection -Pelvis MRI shows residual bone marrow edema with a large fluid collection extending from L2-S1 possibly from a seroma, underlying infection cannot be excluded. -pain control with Valium 5mg q8h and Dilaudid 2mg q6h -patient without fever or white count at this time. Abscess less likely. Will hold off on ABX for now as per ID -awaiting ultrasound to further assess for fluid collection; if fluid will aspirate #DM -holding oral hypoglycemics -ISS -BGMS ACHS #FEN -no fluids indicated -monitor electrolytes -DM diet #prophy -SCDS's; holding xarelto at this time Problem List - Problems (1) Pain in lower back Code(s): M54.5 - LOW BACK PAIN Qualifiers: Chronicity: acute (2) Postoperative pain Code(s): G89.18 - OTHER ACUTE POSTPROCEDURAL PAIN Visit type - Emergency Visit Emergency Visit: Yes ED Registration Date: 07/03/18 Care time: The patient presented to the Emergency Department on the above date and was hospitalized for further evaluation of their emergent condition. - New Patient This patient is new to me today: Yes Date on this admission: 07/05/18 - Critical Care Critical Care patient: No
[2018-07-05] MEDS ORDERED: INSULIN (NOVOLOG) ASPART 100 UNITS/ML 10ML VIAL ONE (12:39)
--- NOTE | 2018-07-05 14:36 | PN ---
Teaching Attending Note Name of Resident: Mar Whiteside ATTENDING PHYSICIAN STATEMENT I saw and evaluated the patient. I reviewed the resident's note and discussed the case with the resident. I agree with the resident's findings and plan as documented. SUBJECTIVE:c/o back pain, states it is not radiating. aggravated by movement and only mild relief with pain medication. denies CP, SOB, fever, chills, N/V/C/ D, bowel/bladder incontinence OBJECTIVE: Last Vital Signs Temp Pulse Resp BP Pulse Ox 98.7 F 99 H 18 98/61 99 07/05/18 10:00 07/05/18 10:00 07/05/18 10:00 07/05/18 10:00 07/03/18 10:48 General NAD CV S1 S2 RRR no murmur/rub/gallop Lungs CTA B/L no wheezing/rales/rhonchi back midline surgical incision, intact, healing. no point tenderness along the spine or paraspinal area from mid thoracic to sacrum. no fluctuance appreciated. Extremities sensation grossly intact. refused to do strength testing ASSESSMENT AND PLAN: 72 y.o. F w/ PMHx. of HTN, NIDDM, systolic CHF, RA, with recent L4-L5 laminectomy on 06/19 who presented to the ER with intractable back pain and found to have a seroma on imaging 1. Intractable back pain- L2-S1 seroma which is likely cause of pain. could be post-surgical. low suspicion for infection given that pt is afebrile with no leukocytosis. agree with holding abx at this time. will obtain U/s of the area to see if can be accessed and drained. will increase diluadid to Q4H and put valium prn for pain relief. scheduling specialist consulted. Ortho and ID on board 2. 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 this is appreciated on imaging from 2013. no further intervention/workup at this time 3. DVT on xarelto- s/p IVC filter. will hold xarelto for possible intervention. consider full dose lovenox if anticipated prolonged holding 4. DM- controleld. cont iss and BGM. hold oral agents 5. DVT ppx- lovenox for ppx while xarelto is held
[2018-07-05] MEDS: TORSEMIDE 20 MG TABLET (FP) PO SCH (19:16)
--- NOTE | 2018-07-05 19:45 | CONSULT ---
Consult Consult Specialty:: Pain Mangement Reason for Consultation:: back pain - History of Present Illness Chief Complaint: back pain History of Present Illness: 73 yr old female s/p lumbar removal of implants, was doing good, but few days ago, she has severe back pain , localized , non radiating, no numbness and tingling .CT scan revealed collection of fluid. pain 10/10 , worse with movement. no other issues - Past Medical History [employer]: Yes: Syncope Cardio/Vascular: Yes: CHF, Deep Vein Thrombosis, HTN Pulmonary: Yes: Pulmonary Embolus ...: No Rheumatology: Yes: Rheumatoid Arthritis Endocrine: Yes: Diabetes Mellitus - Past Surgical History Past Surgical History: Yes: Cholecystectomy, Hysterectomy, Joint Replacement Additional Surgical History: Lumbar Fusion - Alcohol/Substance Use Hx Alcohol Use: No - Smoking History Smoking history: Former smoker Have you smoked in the past 12 months: No Aproximately how many cigarettes per day: 0 If you are a former smoker, when did you quit?: 40 YRS - Social History History of Recent Travel: No Home Medications - Allergies Allergies/Adverse Reactions: Allergies Allergy/AdvReac Type Severity Reaction Status Date / Time levofloxacin [From Levaquin] Allergy Severe ANAPHYLAXIS Verified 07/02/18 18:43 methotrexate Allergy Severe Swelling Verified 07/02/18 18:43 Penicillins Allergy Mild Rash Verified 07/02/18 18:43 bumetanide [From Bumex] Allergy Rash Verified 07/02/18 18:43 piperacillin sodium AdvReac Mild Itching Verified 07/02/18 18:43 [From Zosyn] tazobactam sodium AdvReac Mild Itching Verified 07/02/18 18:43 [From Zosyn] - Home Medications Home Medications: Ambulatory Orders Gabapentin 300 mg PO BID 03/04/14 Oxycodone HCl/Acetaminophen [Percocet 10-325 mg Tablet] 1 - 2 tab PO Q6H PRN Insulin Lispro Protamin/Lispro [Humalog Mix 75-25 Kwikpen] 22 unit SQ BID Multivitamins [Multivit ([facility] Formulary)] 1 tab PO DAILY 03/17/16 Zolpidem Tartrate [Ambien] 10 mg PO HS PRN 06/01/17 Docusate Sodium [Colace -] 100 mg PO BID PRN #0 cap 06/03/17 Carvedilol [Coreg -] 25 mg PO BID 06/16/18 Lisinopril 5 mg PO DAILY 06/16/18 Torsemide 50 mg PO DAILY 06/16/18 Rivaroxaban [Xarelto -] 20 mg PO DAILY 06/22/18 Review of Systems - Review of Systems Constitutional: reports: No Symptoms Eyes: reports: No Symptoms HENT: reports: No Symptoms Neck: reports: No Symptoms Cardiovascular: reports: No Symptoms Respiratory: reports: No Symptoms Gastrointestinal: reports: No Symptoms Genitourinary: reports: No Symptoms Musculoskeletal: reports: Back Pain Neurological: reports: No Symptoms Hematology/Lymphatic: reports: No Symptoms Psychiatric: reports: No Symptoms Pain Intensity: 10 Physical Exam Vital Signs: Vital Signs Temperature 98.5 F 07/05/18 17:00 Pulse Rate 88 07/05/18 17:00 Respiratory Rate 18 07/05/18 17:00 Blood Pressure 127/73 07/05/18 17:00 O2 Sat by Pulse Oximetry (%) 99 07/03/18 10:48 Constitutional: Yes: Well Nourished Eyes: Yes: WNL HENT: Yes: WNL Neck: Yes: WNL Cardiovascular: Yes: WNL Respiratory: Yes: WNL Gastrointestinal: Yes: WNL Musculoskeletal: Yes: Back Pain, Other (dressing +, Tenderness l) Extremities: Yes: WNL Wound/Incision: Yes: Dressing Dry and Intact, Other Neurological: Yes: WNL ...Motor Strength: WNL (moving both upper extremities.) Labs: CBC, BMP 07/05/18 06:10 07/05/18 06:10 Imaging - Results Cat Scan: Report Reviewed Assessment/Plan Discussed in detail and ansered all the questions. continue current care 2. She does not want to change the medications. advised for Toradol 30 mg IM BID PRN I offered oral pain medication but she preferred to iv medication for pain. Thanks Dr. Garcia please call me at [phone].
[2018-07-05] MEDS: ZOLPIDEM TARTRATE 5 MG TABLET PO PRN (23:27)
[2018-07-06] MEDS: HYDROmorphone HCl 2 MG/ML VIAL IVPB PRN ×4 (01:56→23:25)
[2018-07-06] MEDS: INSULIN SLIDING SCALE (NOVOLOG) 1 VIAL SQ SCH ×4 (06:46→23:24)
[2018-07-06 07:17] LABS: HEMATOCRIT 34.9 % (32.4-45.2); HEMOGLOBIN 11.1 GM/dL (10.7-15.3); MCH 29.1 pg (25.7-33.7); MCHC 31.8 g/dl (32.0-36.0); MEAN CELL VOLUME 91.5 fl (80-96); PLATELET COUNT 236 K/MM3 (134-434); RBC 3.82 M/mm3 (3.60-5.2); RDW 14.6 % (11.6-15.6); WHITE BLOOD COUNT 6.4 K/mm3 (4.0-10.0)
[2018-07-06 07:45] LABS: ANION GAP 11 MMOL/L (8-16); BLOOD UREA NITROGEN 15 mg/dL (7-18); CALCIUM 8.5 mg/dL (8.5-10.1); CHLORIDE 100 mmol/L (98-107); CO2 28 mmol/L (21-32); CREATININE 0.8 mg/dL (0.55-1.3); GLUCOSE,RANDOM 187 mg/dL (74-106); MAGNESIUM 1.8 mg/dL (1.8-2.4); PHOSPHOROUS 3.8 mg/dL (2.5-4.9); POTASSIUM 3.7 mmol/L (3.5-5.1); SODIUM 139 mmol/L (136-145)
[2018-07-06] MEDS: TORSEMIDE 20 MG TABLET (FP) PO SCH ×2 (09:49→10:46)
[2018-07-06] MEDS: GABAPENTIN 300 MG CAPSULE (FP) PO SCH ×2 (09:49→23:25)
[2018-07-06] MEDS: MULTIVITAMINS (DAILY MVI) TABLET (FP) PO SCH (09:49)
--- NOTE | 2018-07-06 12:21 | PN ---
Physical Exam: SUBJECTIVE: Patient seen and examined at bedside- patient was having a lot of pain overnight needed dilaudid. she does not think anything is helping her; however she feels ok if she does not move. she denies any CP/SOB/N/V fevers or chills OBJECTIVE: Vital Signs Period Temp Pulse Resp BP Sys/Marcelo Pulse Ox Last 24 Hr 98.4 F-98.9 F 88-100 18-20 110-139/48-74 97 GENERAL: The patient is awake, alert, laying flat EYES:no scleral icterus NECK: no JVD, no lypmhadenopathy LUNGS:diminshed breath sounds, exam limited HEART: Regular rate and rhythm, S1, S2 without murmur, rub or gallop. ABDOMEN: Soft, non-tender, non-distended +BS in all 4 quadrants EXTREMITIES: 2+ pulses, warm, well-perfused, no edema. NEUROLOGICAL: Cranial nerves II through XII grossly intact. Normal speech, gait not observed. SKIN: Warm, dry, normal turgor, no rashes or lesions noted Laboratory Results - last 24 hr 07/05/18 07/05/18 07/05/18 12:00 17:37 20:58 WBC RBC Hgb Hct MCV MCH MCHC RDW Plt Count MPV Sodium Potassium Chloride Carbon Dioxide Anion Gap BUN Creatinine Creat Clearance w eGFR POC Glucometer 260 238 305 Random Glucose Calcium Phosphorus Magnesium 07/06/18 07/06/18 07/06/18 06:30 06:30 06:46 WBC 6.4 RBC 3.82 Hgb 11.1 Hct 34.9 MCV 91.5 MCH 29.1 MCHC 31.8 L RDW 14.6 Plt Count 236 MPV 8.0 Sodium 139 Potassium 3.7 Chloride 100 Carbon Dioxide 28 Anion Gap 11 BUN 15 Creatinine 0.8 Creat Clearance w eGFR > 60 POC Glucometer 203 Random Glucose 187 H Calcium 8.5 Phosphorus 3.8 Magnesium 1.8 07/06/18 11:29 WBC RBC Hgb Hct MCV MCH MCHC RDW Plt Count MPV Sodium Potassium Chloride Carbon Dioxide Anion Gap BUN Creatinine Creat Clearance w eGFR POC Glucometer 265 Random Glucose Calcium Phosphorus Magnesium Active Medications Generic Name Dose Route Start Last Admin Trade Name Freq PRN Reason Stop Dose Admin Diazepam 5 mg 07/03/18 01:08 07/05/18 10:05 Valium - PO 5 mg Q8H PRN Administration PAIN LEVEL 1-5 Docusate Sodium 100 mg 07/03/18 01:34 07/05/18 23:25 Colace - PO 100 mg Q12H PRN Administration CONSTIPATION Gabapentin 300 mg 07/03/18 10:00 07/06/18 09:49 Neurontin - PO 300 mg BID LISA Administration Hydromorphone HCl 2 mg 07/05/18 14:43 07/06/18 09:49 Dilaudid Vial - IVPB 2 mg Q4H PRN Administration PAIN LEVEL 6-10 Insulin Aspart 1 vial 07/03/18 07:00 07/06/18 06:46 Novolog Vial Sliding Scale - SQ 4 units ACHS LISA Administration Protocol Multivitamins/Minerals/Vitamin C 1 tab 07/05/18 10:00 07/06/18 09:49 Tab-A-Vit - PO 1 tab DAILY LISA Administration Senna 2 tab 07/04/18 17:38 Senna - PO HS PRN CONSTIPATION Torsemide 25 mg 07/06/18 10:45 Demadex - PO DAILY LISA Zolpidem Tartrate 10 mg 07/03/18 01:34 07/05/18 23:27 Ambien - PO 10 mg HS PRN Administration INSOMNIA ASSESSMENT/PLAN: 73 yo f w/ PMH multiple back surgeries in the past comes in c/o intractable pain for the past 2 days found to have a paraspinal fluid collection. #back pain s/p fusion and instrumentation revision likely 2/2 paraspinal post op fluid collection -Pelvis MRI shows residual bone marrow edema with a large fluid collection extending from L2-S1 possibly from a seroma, underlying infection cannot be excluded. -pain control with Valium 5mg q8h and Dilaudid 2mg q6h -patient without fever or white count at this time. Abscess less likely. Will hold off on ABX for now as per ID -ultrasound showed possible abcess but unclear if there is fluid collection; -patient underwent ultrasound guided aspiration with dr rivera today - f/u those recs #DM -holding oral hypoglycemics -ISS -BGMS ACHS #FEN -no fluids indicated -monitor electrolytes -DM diet #prophy -SCDS's; holding xarelto at this time until we know if the collection is a hematoma or not Problem List - Problems (1) Pain in lower back Code(s): M54.5 - LOW BACK PAIN Qualifiers: Chronicity: acute (2) Postoperative pain Code(s): G89.18 - OTHER ACUTE POSTPROCEDURAL PAIN Visit type - Emergency Visit Emergency Visit: Yes ED Registration Date: 07/03/18 Care time: The patient presented to the Emergency Department on the above date and was hospitalized for further evaluation of their emergent condition. - New Patient This patient is new to me today: No - Critical Care Critical Care patient: No
--- NOTE | 2018-07-06 15:40 | PN ---
Teaching Attending Note Name of Resident: Mar Whiteside ATTENDING PHYSICIAN STATEMENT I saw and evaluated the patient. I reviewed the resident's note and discussed the case with the resident. I agree with the resident's findings and plan as documented. SUBJECTIVE:continues to have back pain, some relief wtih pain medication however statesshe has been mostly bedbound due to limited mobility for pain. denies CP, SOB, fever, chills, N/V/C/D, numbness/tingling of lower extremities OBJECTIVE: Last Vital Signs Temp Pulse Resp BP Pulse Ox 97.8 F 111 H 18 130/74 94 L 07/06/18 14:52 07/06/18 14:52 07/06/18 14:52 07/06/18 14:52 07/06/18 09:00 General fustration with pain, tearful during interview refused physical exam ASSESSMENT AND PLAN: 72 y.o. F w/ PMHx. of HTN, NIDDM, systolic CHF, RA, with recent L4-L5 laminectomy on 06/19 who presented to the ER with intractable back pain and found to have a seroma on imaging 1. Intractable back pain- L2-S1 seroma which is likely cause of pain. u/s showing mass which could be hematoma. will place call to IR to see if it can be drained. if it is hematoma will need to d/w neuro about re-starting anticoagulation and if it should be held to prevent re-accumulation. pain appears controlled. Pain managment recommending toradol however would hold at momnt for possible bleeding, further recommendations per ortho. Ortho and ID on board 2. 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 this is appreciated on imaging from 2013. no further intervention/workup at this time 3. PE/DVT on xarelto- s/p IVC filter. will hold xarelto for possible hematoma 4. DM- controleld. cont iss and BGM. hold oral agents 5. HTN- controlled 6. Systolic CHF-cont home medications 7. DVT ppx- SCD. hold anticoagulation
[2018-07-06] MEDS: ZOLPIDEM TARTRATE 5 MG TABLET PO PRN (23:25)
[2018-07-07] MEDS: INSULIN SLIDING SCALE (NOVOLOG) 1 VIAL SQ SCH ×4 (06:21→23:41)
[2018-07-07] MEDS: HYDROmorphone HCl 2 MG/ML VIAL IVPB PRN ×2 (06:22→12:43)
[2018-07-07 07:58] LABS: HEMATOCRIT 32.7 % (32.4-45.2); HEMOGLOBIN 11.3 GM/dL (10.7-15.3); MCH 31.5 pg (25.7-33.7); MCHC 34.7 g/dl (32.0-36.0); MEAN PLT VOLUME 8.2 fl (7.5-11.1); PLATELET COUNT 228 K/MM3 (134-434); RDW 14.3 % (11.6-15.6); WHITE BLOOD COUNT 5.5 K/mm3 (4.0-10.0)
[2018-07-07 08:40] LABS: ANION GAP 12 MMOL/L (8-16); BLOOD UREA NITROGEN 19 mg/dL (7-18); CALCIUM 8.3 mg/dL (8.5-10.1); CHLORIDE 100 mmol/L (98-107); CO2 25 mmol/L (21-32); CREATININE 0.7 mg/dL (0.55-1.3); GLUCOSE,RANDOM 214 mg/dL (74-106); MAGNESIUM 1.9 mg/dL (1.8-2.4); PHOSPHOROUS 3.5 mg/dL (2.5-4.9); POTASSIUM 3.8 mmol/L (3.5-5.1); SODIUM 137 mmol/L (136-145)
--- NOTE | 2018-07-07 09:54 | PN ---
Physical Exam: SUBJECTIVE: Patient seen and examined at bedside- no acute events overnight. patients received dilaudid once early this AM- she denies having any pain. she walked 5 feet with PT yesterday. she denies any CP/SOB/N/V fevers or chills OBJECTIVE: Vital Signs Period Temp Pulse Resp BP Sys/Marcelo Pulse Ox Last 24 Hr 97.8 F-98.6 F 99-125 18-28 110-130/48-75 96 GENERAL: The patient is awake, awake, laying flat in bed EYES: no scleral icterus, NECK: no JVD, no lymphadenopathy LUNGS: diminished but CTA B/L; no rales, rhonchi or wheezing HEART: Regular rate and rhythm, S1, S2 without murmur, rub or gallop. ABDOMEN: Soft, nontender, nondistended, normoactive bowel sounds, no guarding, no rebound, no hepatosplenomegaly, no masses. EXTREMITIES: 2+ pulses, warm, well-perfused, trace edema. midline incision clean /dry/intact; no midline tenderness SKIN: Warm, dry, normal turgor, no rashes or lesions noted Laboratory Results - last 24 hr 07/06/18 07/06/18 07/06/18 11:29 16:58 23:24 WBC RBC Hgb Hct MCV MCH MCHC RDW Plt Count MPV Sodium Potassium Chloride Carbon Dioxide Anion Gap BUN Creatinine Creat Clearance w eGFR POC Glucometer 265 240 242 Random Glucose Calcium Phosphorus Magnesium 07/07/18 07/07/18 07/07/18 06:20 06:45 06:45 WBC 5.5 RBC 3.60 Hgb 11.3 Hct 32.7 MCV 91.0 MCH 31.5 MCHC 34.7 RDW 14.3 Plt Count 228 MPV 8.2 Sodium 137 Potassium 3.8 Chloride 100 Carbon Dioxide 25 Anion Gap 12 BUN 19 H Creatinine 0.7 Creat Clearance w eGFR > 60 POC Glucometer 230 Random Glucose 214 H Calcium 8.3 L Phosphorus 3.5 Magnesium 1.9 Active Medications Generic Name Dose Route Start Last Admin Trade Name Freq PRN Reason Stop Dose Admin Diazepam 5 mg 07/03/18 01:08 07/05/18 10:05 Valium - PO 5 mg Q8H PRN Administration PAIN LEVEL 1-5 Docusate Sodium 100 mg 07/03/18 01:34 07/05/18 23:25 Colace - PO 100 mg Q12H PRN Administration CONSTIPATION Gabapentin 300 mg 07/03/18 10:00 07/06/18 23:25 Neurontin - PO 300 mg BID LISA Administration Hydromorphone HCl 2 mg 07/05/18 14:43 07/06/18 23:25 Dilaudid Vial - IVPB 2 mg Q4H PRN Administration PAIN LEVEL 6-10 Insulin Aspart 1 vial 07/03/18 07:00 07/07/18 06:21 Novolog Vial Sliding Scale - SQ 4 units ACHS LISA Administration Protocol Multivitamins/Minerals/Vitamin C 1 tab 07/05/18 10:00 07/06/18 09:49 Tab-A-Vit - PO 1 tab DAILY LISA Administration Rivaroxaban 20 mg 07/07/18 18:00 Xarelto - PO DAILY@1800 LISA Senna 2 tab 07/04/18 17:38 Senna - PO HS PRN CONSTIPATION Torsemide 25 mg 07/06/18 10:45 Demadex - PO DAILY [facility] Zolpidem Tartrate 10 mg 07/03/18 01:34 07/06/18 23:25 Ambien - PO 10 mg HS PRN Administration INSOMNIA ASSESSMENT/PLAN: 73 yo f w/ PMH multiple back surgeries in the past comes in c/o intractable pain for the past 2 days found to have a paraspinal fluid collection. #back pain s/p fusion and instrumentation revision likely 2/2 paraspinal post op fluid collection -Pelvis MRI shows residual bone marrow edema with a large fluid collection extending from L2-S1 possibly from a seroma, underlying infection cannot be excluded. -pain control with Valium 5mg q8h and Dilaudid 2mg q6h -patient without fever or white count at this time. Abscess less likely. Will hold off on ABX for now as per ID -ultrasound showed possible abcess but unclear if there is fluid collection; -patient underwent ultrasound guided aspiration with dr rivera yesterday;' drained serosanguinous fluid, awaiting cultures -patient is refusing rehab #DM -holding oral hypoglycemics -ISS -BGMS ACHS #FEN -no fluids indicated -monitor electrolytes -DM diet #prophy -restarting patients Xarelto today as per Dr. rivera Problem List - Problems (1) Pain in lower back Code(s): M54.5 - LOW BACK PAIN Qualifiers: Chronicity: acute (2) Postoperative pain Code(s): G89.18 - OTHER ACUTE POSTPROCEDURAL PAIN Visit type - Emergency Visit Emergency Visit: Yes ED Registration Date: 07/03/18 Care time: The patient presented to the Emergency Department on the above date and was hospitalized for further evaluation of their emergent condition. - New Patient This patient is new to me today: No - Critical Care Critical Care patient: No
[2018-07-07] MEDS ORDERED: PT OWN MED DRAWER 7, Y5N ONE (10:35)
[2018-07-07] MEDS: MULTIVITAMINS (DAILY MVI) TABLET (FP) PO SCH (10:36)
[2018-07-07] MEDS: GABAPENTIN 300 MG CAPSULE (FP) PO SCH ×2 (10:37→23:37)
[2018-07-07] MEDS: TORSEMIDE 10 MG TABLET PO SCH (10:38)
[2018-07-07] MEDS ORDERED: oxyCODONE HCL 5 MG TABLET PO PRN (13:25)
[2018-07-07] MEDS ORDERED: ACETAMINOPHEN 650 MG/20.3 ML ORAL SOLUTION (CUPS) PO PRN (13:26)
--- NOTE | 2018-07-07 14:31 | PN ---
Teaching Attending Note Name of Resident: Mar Whiteside ATTENDING PHYSICIAN STATEMENT I saw and evaluated the patient. I reviewed the resident's note and discussed the case with the resident. I agree with the resident's findings and plan as documented. SUBJECTIVE:states pain is better today but still has some. denies Cp, SOB, fever , chills, N/V/C/D OBJECTIVE: Last Vital Signs Temp Pulse Resp BP Pulse Ox 98.1 F 100 H 20 124/57 L 96 07/07/18 06:00 07/07/18 06:00 07/07/18 06:00 07/07/18 06:00 07/06/18 21:00 General NAD CV S1 S2 RRR lungs CTA anteriorly back dressing intact c/d/i ASSESSMENT AND PLAN: 72 y.o. F w/ PMHx. of HTN, NIDDM, systolic CHF, RA, with recent L4-L5 laminectomy on 06/19 who presented to the ER with intractable back pain and found to have a seroma on imaging 1. Intractable back pain- L2-S1 seroma which is likely cause of pain. s/p drainage by IR suggestive of hematoma. pain has improved. pain mostly controlled. will d/c dilaudid and assess pain control on home medications. did not do well with PT yesterday however refusing IVONNE at this time. awaiting Cx report from hematoma that there is no infection. will re-start xarelto today. Ortho and ID on board 2. 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 this is appreciated on imaging from 2013. no further intervention/workup at this time 3. PE/DVT on xarelto- s/p IVC filter. re-start xarelto 4. DM- controleld. cont iss and BGM. hold oral agents 5. HTN- controlled 6. Systolic CHF-cont home medications 7. DVT ppx- SCD. hold anticoagulation 8.only ambulated 10 feet wtih PT yesterday. will see how she does today and see if she still wants to go home despite recommendations and encouragement to go to [facility]. pending discharge based on decision and if Cx are negative.
[2018-07-07] MEDS: oxyCODONE HCL 5 MG TABLET PO PRN (18:11)
[2018-07-07] MEDS: ACETAMINOPHEN 650 MG/20.3 ML ORAL SOLUTION (CUPS) PO PRN (18:12)
[2018-07-07] MEDS: RIVAROXABAN 20 MG TABLET PO SCH (18:21)
--- NOTE | 2018-07-07 18:29 | PATH ---
Cytology Non-Gynecological Report Patient Name: SHERI PADILLA Med. Rec. #: [id number] /Age/Gender: 1945 (Age: 73) / F Account: [id number] Location: [facility] MED/SURG Taken: 07/06/2018 Received: 07/06/2018 Reported: 07/07/2018 Physicians: Manuel Buchanan M.D. Specimen(s) Received PARASPINAL MASS Clinical History Fluid collection T12-S5 Final Diagnosis PARASPINAL FLUID FOR CYTOLOGY: SATISFACTORY FOR EVALUATION. NO MALIGNANT CELLS IDENTIFIED. NEUTROPHILS, FEW LYMPHOCYTES, RARE MACROPHAGES, AND RARE DEGENERATED CELLS IN A PROTEINACEOUS BACKGROUND. Comment: Prior history of spinal surgery noted. Suggest clinical and radiologic correlation. Electronically Signed Florence Giordano M.D. Gross Description Approximately 50 cc of bloody fluid received fixed in 50% alcohol. One cytofunnel prepared and Pap stained. One cellblock prepared.
[2018-07-07] MEDS: ZOLPIDEM TARTRATE 5 MG TABLET PO PRN (23:36)
[2018-07-08] MEDS: ACETAMINOPHEN 650 MG/20.3 ML ORAL SOLUTION (CUPS) PO PRN ×2 (00:52→14:29)
[2018-07-08] MEDS: oxyCODONE HCL 5 MG TABLET PO PRN ×2 (00:52→14:28)
[2018-07-08] MEDS: INSULIN SLIDING SCALE (NOVOLOG) 1 VIAL SQ SCH ×4 (06:51→22:20)
[2018-07-08 07:29] LABS: HEMATOCRIT 35.2 % (32.4-45.2); HEMOGLOBIN 11.1 GM/dL (10.7-15.3); MCH 28.9 pg (25.7-33.7); MCHC 31.5 g/dl (32.0-36.0); MEAN CELL VOLUME 91.8 fl (80-96); MEAN PLT VOLUME 8.5 fl (7.5-11.1); PLATELET COUNT 236 K/MM3 (134-434); RBC 3.84 M/mm3 (3.60-5.2); RDW 14.5 % (11.6-15.6); WHITE BLOOD COUNT 6.7 K/mm3 (4.0-10.0)
[2018-07-08 08:03] LABS: ANION GAP 10 MMOL/L (8-16); BLOOD UREA NITROGEN 19 mg/dL (7-18); CALCIUM 8.4 mg/dL (8.5-10.1); CHLORIDE 101 mmol/L (98-107); CO2 26 mmol/L (21-32); CREATININE 0.8 mg/dL (0.55-1.3); GLUCOSE,RANDOM 235 mg/dL (74-106); MAGNESIUM 2.1 mg/dL (1.8-2.4); PHOSPHOROUS 3.3 mg/dL (2.5-4.9); POTASSIUM 3.8 mmol/L (3.5-5.1); SODIUM 137 mmol/L (136-145)
[2018-07-08] MEDS ORDERED: PT OWN MED DRAWER 7, Y5N ONE ×2 (09:50→12:37)
[2018-07-08] MEDS: MULTIVITAMINS (DAILY MVI) TABLET (FP) PO SCH (09:55)
[2018-07-08] MEDS: GABAPENTIN 300 MG CAPSULE (FP) PO SCH ×2 (09:55→22:19)
[2018-07-08] MEDS: TORSEMIDE 10 MG TABLET PO SCH (09:55)
--- NOTE | 2018-07-08 10:31 | PN ---
Progress Note (short form) - Note Progress Note: c/o back pain, worse on movement. relief with pain medication. denies CP, SOB, fever, chills, N/V/C/D Current Medications Generic Name Dose Route Start Last Admin Trade Name Freq PRN Reason Stop Dose Admin Acetaminophen 325 mg 07/07/18 17:39 07/08/18 00:52 Tylenol Oral Solution - PO 325 mg Q6H PRN Administration PAIN LEVEL 1 - 3 Diazepam 5 mg 07/03/18 01:08 07/05/18 10:05 Valium - PO 5 mg Q8H PRN Administration PAIN LEVEL 1-5 Docusate Sodium 100 mg 07/03/18 01:34 07/05/18 23:25 Colace - PO 100 mg Q12H PRN Administration CONSTIPATION Gabapentin 300 mg 07/03/18 10:00 07/08/18 09:55 Neurontin - PO 300 mg BID LISA Administration Insulin Aspart 1 vial 07/03/18 07:00 07/08/18 06:51 Novolog Vial Sliding Scale - SQ 4 units ACHS LISA Administration Protocol Multivitamins/Minerals/Vitamin C 1 tab 07/05/18 10:00 07/08/18 09:55 Tab-A-Vit - PO 1 tab DAILY LISA Administration Oxycodone HCl 10 mg 07/07/18 17:39 07/08/18 00:52 Roxicodone - PO 10 mg Q6H PRN Administration PAIN LEVEL 4 - 6 Rivaroxaban 20 mg 07/07/18 18:00 07/07/18 18:21 Xarelto - PO 20 mg DAILY@1800 LISA Administration Senna 2 tab 07/04/18 17:38 Senna - PO HS PRN CONSTIPATION Torsemide 25 mg 07/06/18 10:45 07/08/18 09:55 Demadex - PO 25 mg DAILY LISA Administration Zolpidem Tartrate 10 mg 07/03/18 01:34 07/07/18 23:36 Ambien - PO 10 mg HS PRN Administration INSOMNIA Last Vital Signs Temp Pulse Resp BP Pulse Ox 98.3 F 91 H 18 128/66 97 07/08/18 06:00 07/08/18 06:00 07/08/18 06:00 07/08/18 06:00 07/07/18 21:00 General NAD CV S1 S2 RRR lungs CTA anteriorly back no point tenderness Microbiology 07/06/18 12:00 Body Fluid - Other Gram Stain - Final 07/06/18 12:00 Body Fluid - Other Body Fluid Culture - Preliminary NO AEROBIC GROWTH, 24 HRS 07/06/18 12:00 Body Fluid - Other Anaerobic Culture - Final NO ANAEROBES WERE ISOLATED 07/03/18 19:45 Blood - Peripheral Venous Blood Culture - Preliminary NO GROWTH OBTAINED AFTER 96 HOURS, INCUBATION TO CONTINUE FOR 1 DAYS. 07/03/18 20:00 Blood - Peripheral Venous Blood Culture - Preliminary NO GROWTH OBTAINED AFTER 96 HOURS, INCUBATION TO CONTINUE FOR 1 DAYS. 07/06/18 12:00 Body Fluid - Other LISA Preparation - Preliminary 07/06/18 12:00 Body Fluid - Other Fungal Culture - Preliminary ASSESSMENT AND PLAN: 72 y.o. F w/ PMHx. of HTN, NIDDM, systolic CHF, RA, with recent L4-L5 laminectomy on 06/19 who presented to the ER with intractable back pain and found to have a seroma on imaging 1. Intractable back pain- L2-S1 seroma which is likely cause of pain. s/p drainage by IR suggestive of hematoma. 35cc removed. pain has improved but mobility limited to pain. states no relief with valium. will start flexeril RTC nad percocet prn. spoke with Dr Borjas who states nothing else to do at this point and will improve with PT and pain control. prefers IVONNE however d/w patient again and is adamanat about going home. Dr Borjas will attempt to come speak with patient here today for re-assurance and will f/u in office. 2. 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 this is appreciated on imaging from 2013. no further intervention/workup at this time 3. PE/DVT on xarelto- s/p IVC filter. xarelto 4. DM- controleld. cont iss and BGM. hold oral agents 5. HTN- controlled 6. Systolic CHF-cont home medications 7. DVT ppx- SCD. hold anticoagulation 8.d/c home today. continues to refuse IVONNE. home PT and VNS arranged. reassurance given and detailed instruction on combined use of flexeril and percocet and sedating effects. Visit type - Emergency Visit Emergency Visit: Yes ED Registration Date: 07/03/18 Care time: The patient presented to the Emergency Department on the above date and was hospitalized for further evaluation of their emergent condition. - New Patient This patient is new to me today: No - Critical Care Critical Care patient: No - Discharge Referral Referred to [facility] Med P.C.: No
[2018-07-08] MEDS ORDERED: CYCLOBENZAPRINE HCL 5 MG TABLET PO STA (11:22)
--- NOTE | 2018-07-08 15:34 | PN ---
Progress Note (short form) - Note Progress Note: Still C/O L proximal buttock pain. A 30ml aspiration via ultrasound guidance performed. Initial pain relief but pain has recurred due to recurrent bleed ( Xeralto) and osmotic expansion of the hematoma. Original pain all gone General assessment All at baseline Abd Soft and passing stool. Vitals Stable Neuro fully intact Musculoskeletal assess Wound dry Local tenderness over the prox muscle of the buttock Vascular All normal PLAN Mobilize Walk and back to bed Sit if able to tolerate Pain mx Toradol and add some Dilaudid D/C home ? tomorrow/Tuesday
[2018-07-08] MEDS: RIVAROXABAN 20 MG TABLET PO SCH (17:26)
[2018-07-08] MEDS: HYDROmorphone HCL 2 MG TABLET PO PRN ×2 (17:26→23:22)
[2018-07-09] MEDS: oxyCODONE HCL 5 MG TABLET PO PRN ×2 (04:21→13:25)
[2018-07-09] MEDS: INSULIN SLIDING SCALE (NOVOLOG) 1 VIAL SQ SCH ×4 (06:24→21:29)
[2018-07-09] MEDS ORDERED: LIDOCAINE 5% TOPICAL PATCH TP ONE (08:53)
[2018-07-09] MEDS: MULTIVITAMINS (DAILY MVI) TABLET (FP) PO SCH (10:30)
[2018-07-09] MEDS: GABAPENTIN 300 MG CAPSULE (FP) PO SCH ×2 (10:30→21:27)
[2018-07-09] MEDS: TORSEMIDE 10 MG TABLET PO SCH (10:30)
--- NOTE | 2018-07-09 11:14 | PN ---
Teaching Attending Note Name of Resident: Mar Whiteside ATTENDING PHYSICIAN STATEMENT I saw and evaluated the patient. I reviewed the resident's note and discussed the case with the resident. I agree with the resident's findings and plan as documented. SUBJECTIVE:pain is improved but still remains immobile or limited due to pain. denies Cp, SOB, fever, chills, N/V/C/D OBJECTIVE: Last Vital Signs Temp Pulse Resp BP Pulse Ox 98.2 F 98 H 18 125/51 L 95 07/09/18 06:34 07/09/18 06:34 07/09/18 06:34 07/09/18 06:34 07/09/18 09:00 General NAD ASSESSMENT AND PLAN: 72 y.o. F w/ PMHx. of HTN, NIDDM, systolic CHF, RA, with recent L4-L5 laminectomy on 06/19 who presented to the ER with intractable back pain and found to have a seroma on imaging 1. Intractable back pain- L2-S1 seroma which is likely cause of pain. s/p drainage by IR suggestive of hematoma. 35cc removed. will apply lidoderm patch to back. started on dilaudid po prn by ortho. will assess if pain is better with PT in the AM. will need f/u with both ortho and paint spray inspector (pt states she has one that she has not followed up with for some time). encouraged f/u and PT as outpatinet. 2. 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 this is appreciated on imaging from 2013. no further intervention/workup at this time 3. PE/DVT on xarelto- s/p IVC filter. xarelto 4. DM- controleld. cont iss and BGM. hold oral agents 5. HTN- controlled 6. Systolic CHF-cont home medications 7. DVT ppx- SCD. hold anticoagulation 8. anticipate d/c home with VNS and home PT in the AM. refuses IVONNE with multiple long conversations regarding its benefits. verbalized understanding but refuses.
--- NOTE | 2018-07-09 11:34 | PN ---
Physical Exam: SUBJECTIVE: Patient seen and examined at bedside. patient states that she is still having pain but that she is trying to deal with it - she has been walking more with PT but still has pain, she denies any CP/SOB/N/V fevers or chills OBJECTIVE: Vital Signs Period Temp Pulse Resp BP Sys/Marcelo Pulse Ox Last 24 Hr 97.8 F-99 F 94-103 18-20 119-130/51-74 95-97 GENERAL: The patient is awake, alert, and fully oriented, in no acute distress. EYES: no scleral icterus; NECK: no JVD, no lymphadenopathy LUNGS: diminished breath sounds; HEART: Regular rate and rhythm, S1, S2 without murmur, rub or gallop. ABDOMEN: Soft, nontender, nondistended, normoactive bowel sounds, no guarding, no rebound, no hepatosplenomegaly, no masses. EXTREMITIES: 2+ pulses, warm, well-perfused, no edema. SKIN: Warm, dry, normal turgor, no rashes or lesions noted Laboratory Results - last 24 hr 07/08/18 07/08/18 07/08/18 11:38 16:36 21:07 POC Glucometer 343 212 295 07/09/18 06:22 POC Glucometer 196 Active Medications Generic Name Dose Route Start Last Admin Trade Name Tom PRN Reason Stop Dose Admin Acetaminophen 325 mg 07/07/18 17:39 07/08/18 14:29 Tylenol Oral Solution - PO 325 mg Q6H PRN Administration PAIN LEVEL 1 - 3 Diazepam 5 mg 07/03/18 01:08 07/05/18 10:05 Valium - PO 5 mg Q8H PRN Administration PAIN LEVEL 1-5 Docusate Sodium 100 mg 07/03/18 01:34 07/05/18 23:25 Colace - PO 100 mg Q12H PRN Administration CONSTIPATION Gabapentin 300 mg 07/03/18 10:00 07/09/18 10:30 Neurontin - PO 300 mg BID LSIA Administration Hydromorphone HCl 2 mg 07/08/18 15:50 07/08/18 23:22 Dilaudid - PO 2 mg Q8H PRN Administration PAIN LEVEL 7 - 10 Insulin Aspart 1 vial 07/03/18 07:00 07/09/18 06:24 Novolog Vial Sliding Scale - SQ 2 units ACHS LISA Administration Protocol Miscellaneous 1 each 07/09/18 22:00 Lidoderm Patch Removal MC 07/09/18 22:01 DAILY@2200 [facility] Multivitamins/Minerals/Vitamin C 1 tab 07/05/18 10:00 07/09/18 10:30 Tab-A-Vit - PO 1 tab DAILY LISA Administration Oxycodone HCl 10 mg 07/07/18 17:39 07/09/18 04:21 Roxicodone - PO 10 mg Q6H PRN Administration PAIN LEVEL 4 - 6 Rivaroxaban 20 mg 07/07/18 18:00 07/08/18 17:26 Xarelto - PO 20 mg DAILY@1800 [facility] Administration Senna 2 tab 07/04/18 17:38 Senna - PO HS PRN CONSTIPATION Torsemide 25 mg 07/06/18 10:45 07/09/18 10:30 Demadex - PO 25 mg DAILY LISA Administration Zolpidem Tartrate 10 mg 07/03/18 01:34 07/07/18 23:36 Ambien - PO 10 mg HS PRN Administration INSOMNIA ASSESSMENT/PLAN: 73 yo f w/ PMH multiple back surgeries in the past comes in c/o intractable pain for the past 2 days found to have a paraspinal fluid collection. #back pain s/p fusion and instrumentation revision likely 2/2 paraspinal post op fluid collection -Pelvis MRI shows residual bone marrow edema with a large fluid collection extending from L2-S1 possibly from a seroma, underlying infection cannot be excluded. -pain control with oxycodone 10mg and Dilaudid 2mg q8h and lidoderm patch was added this am -patient without fever or white count at this time. Abscess less likely. Will hold off on ABX for now as per I -patient underwent ultrasound guided aspiration with dr rivera;' drained 30 ml serosanguinous fluid, cx negative -patient is refusing rehab #DM -holding oral hypoglycemics -ISS -BGMS ACHS #CHF -torsemide 25 daily #FEN -no fluids indicated -monitor electrolytes -DM diet #prophy -xarelto Problem List - Problems (1) Pain in lower back Code(s): M54.5 - LOW BACK PAIN Qualifiers: Chronicity: acute (2) Postoperative pain Code(s): G89.18 - OTHER ACUTE POSTPROCEDURAL PAIN Visit type - Emergency Visit Emergency Visit: Yes ED Registration Date: 07/03/18 Care time: The patient presented to the Emergency Department on the above date and was hospitalized for further evaluation of their emergent condition. - New Patient This patient is new to me today: No - Critical Care Critical Care patient: No
[2018-07-09] MEDS: HYDROmorphone HCL 2 MG TABLET PO PRN ×2 (11:43→21:32)
[2018-07-09] MEDS: ACETAMINOPHEN 650 MG/20.3 ML ORAL SOLUTION (CUPS) PO PRN (13:26)
[2018-07-09] MEDS: RIVAROXABAN 20 MG TABLET PO SCH (17:29)
[2018-07-09] MEDS ORDERED: INSULIN (NOVOLOG) ASPART 100 UNITS/ML 10ML VIAL ONE (21:31)
[2018-07-09] MEDS ORDERED: LIDOCAINE PATCH REMOVAL MC SCH (22:00)
[2018-07-09] MEDS: ZOLPIDEM TARTRATE 5 MG TABLET PO PRN (23:26)
[2018-07-10] MEDS: INSULIN SLIDING SCALE (NOVOLOG) 1 VIAL SQ SCH ×4 (06:12→21:45)
[2018-07-10] MEDS ORDERED: PT OWN MED DRAWER 7, Y5N ONE (08:53)
[2018-07-10] MEDS: HYDROmorphone HCL 2 MG TABLET PO PRN ×2 (09:30→21:41)
[2018-07-10] MEDS: MULTIVITAMINS (DAILY MVI) TABLET (FP) PO SCH (09:31)
[2018-07-10] MEDS: GABAPENTIN 300 MG CAPSULE (FP) PO SCH ×2 (09:31→21:41)
[2018-07-10] MEDS: TORSEMIDE 10 MG TABLET PO SCH (09:31)
[2018-07-10] MEDS ORDERED: INSULIN (NOVOLOG) ASPART 100 UNITS/ML 10ML VIAL ONE ×2 (11:23→18:50)
[2018-07-10] MEDS: ACETAMINOPHEN 650 MG/20.3 ML ORAL SOLUTION (CUPS) PO PRN (11:27)
[2018-07-10] MEDS: oxyCODONE HCL 5 MG TABLET PO PRN (11:28)
--- NOTE | 2018-07-10 13:03 | PN ---
Teaching Attending Note Name of Resident: Mar Whiteside ATTENDING PHYSICIAN STATEMENT I saw and evaluated the patient. I reviewed the resident's note and discussed the case with the resident. I agree with the resident's findings and plan as documented. SUBJECTIVE:states pain has remained the same. worse on exertion. denies Cp, SOB , fever, chills, N/V/C?D OBJECTIVE: Last Vital Signs Temp Pulse Resp BP Pulse Ox 97.6 F 102 H 20 121/83 96 07/10/18 10:00 07/10/18 10:00 07/10/18 10:00 07/10/18 10:00 07/10/18 09:00 General NAD ASSESSMENT AND PLAN: 72 y.o. F w/ PMHx. of HTN, NIDDM, systolic CHF, RA, with recent L4-L5 laminectomy on 06/19 who presented to the ER with intractable back pain and found to have a seroma on imaging 1. Intractable back pain- L2-S1 seroma which is likely cause of pain. s/p drainage by IR suggestive of hematoma. 35cc removed. awaiting re-evaluation by ortho team. will re-asses with PT. started on lidoderm patch however will take some time for this to take affect. cont with dilaudid and percocet prn. flexeril RTC. 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 2. 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 this is appreciated on imaging from 2013. no further intervention/workup at this time 3. PE/DVT on xarelto- s/p IVC filter. xarelto 4. DM- controleld. cont iss and BGM. hold oral agents 5. HTN- controlled 6. Systolic CHF-cont home medications 7. DVT ppx- SCD. hold anticoagulation 8. anticipate d/c home with VNS and home PT today
[2018-07-10] MEDS: CYCLOBENZAPRINE HCL 10 MG TABLET (FP) PO SCH ×2 (13:43→21:41)
[2018-07-10] MEDS: DOCUSATE SODIUM 100 MG CAPSULE (FP) PO PRN (13:43)
--- NOTE | 2018-07-10 16:01 | PN ---
Physical Exam: SUBJECTIVE: Patient seen and examined at bedside no acute events overnight; patient is feeling very frsutrated that she is still here. she walked 20 feet with PT today- she states her pain is maybe slightly bgetter; she denies any CP/ SOB/N/V fevers or chills. OBJECTIVE: Vital Signs Period Temp Pulse Resp BP Sys/Marcelo Pulse Ox Last 24 Hr 97.6 F-98.5 F 93-102 18-20 111-121/53-83 95-96 GENERAL: The patient is awake, alert, and fully oriented, in no acute distress. EYES: no scleral icterus; no . NECK: no JVD LUNGS: CTA B/L; no rales, rhonchi or wheezing HEART: Regular rate and rhythm, S1, S2 without murmur, rub or gallop. ABDOMEN: Soft, nontender, nondistended, normoactive bowel sounds, no guarding, no rebound, no hepatosplenomegaly, no masses. l EXTREMITIES: 2+ pulses, warm, well-perfused, trace edema. Lidoderm patch added on back NEUROLOGICAL: Cranial nerves II through XII grossly intact. Normal speech, gait not observed. SKIN: Warm, dry, normal turgor, no rashes or lesions noted Laboratory Results - last 24 hr 07/09/18 07/09/18 07/10/18 17:36 21:28 06:11 POC Glucometer 297 274 224 07/10/18 11:21 POC Glucometer 347 Active Medications Generic Name Dose Route Start Last Admin Trade Name Freq PRN Reason Stop Dose Admin Acetaminophen 325 mg 07/07/18 17:39 07/10/18 11:27 Tylenol Oral Solution - PO 325 mg Q6H PRN Administration PAIN LEVEL 1 - 3 Cyclobenzaprine HCl 10 mg 07/10/18 14:00 07/10/18 13:43 Flexeril - PO 10 mg TID LISA Administration Docusate Sodium 100 mg 07/03/18 01:34 07/10/18 13:43 Colace - PO 100 mg Q12H PRN Administration CONSTIPATION Gabapentin 300 mg 07/03/18 10:00 07/10/18 09:31 Neurontin - PO 300 mg BID LISA Administration Hydromorphone HCl 2 mg 07/08/18 15:50 07/10/18 09:30 Dilaudid - PO 2 mg Q8H PRN Administration PAIN LEVEL 7 - 10 Insulin Aspart 1 vial 07/03/18 07:00 07/10/18 11:28 Novolog Vial Sliding Scale - SQ 8 units ACHS LISA Administration Protocol Multivitamins/Minerals/Vitamin C 1 tab 07/05/18 10:00 07/10/18 09:31 Tab-A-Vit - PO 1 tab DAILY LISA Administration Oxycodone HCl 10 mg 07/07/18 17:39 07/10/18 11:28 Roxicodone - PO 10 mg Q6H PRN Administration PAIN LEVEL 4 - 6 Rivaroxaban 20 mg 07/07/18 18:00 07/09/18 17:29 Xarelto - PO 20 mg DAILY@1800 LISA Administration Senna 2 tab 07/04/18 17:38 Senna - PO HS PRN CONSTIPATION Torsemide 25 mg 07/06/18 10:45 07/10/18 09:31 Demadex - PO 25 mg DAILY LISA Administration ASSESSMENT/PLAN: 73 yo f w/ PMH multiple back surgeries in the past comes in c/o intractable pain for the past 2 days found to have a paraspinal fluid collection. #back pain s/p fusion and instrumentation revision likely 2/2 paraspinal post op fluid collection -Pelvis MRI shows residual bone marrow edema with a large fluid collection extending from L2-S1 possibly from a seroma, underlying infection cannot be excluded. -pain control with oxycodone 10mg and Dilaudid 2mg q8h and lidoderm patch was added this am;m -patient without fever or white count at this time. Abscess less likely. Will hold off on ABX for now as per I -patient underwent ultrasound guided aspiration with dr rivera;' drained 30 ml serosanguinous fluid, cx negative -patient is refusing rehab - Dr Borjas saw patient today- wants patient to get another ultrasound to see if any fluid is there that needs to be removed #DM -holding oral hypoglycemics -ISS -BGMS ACHS #CHF -torsemide 25 daily #FEN -no fluids indicated -monitor electrolytes -DM diet #prophy -xarelto Problem List - Problems (1) Pain in lower back Code(s): M54.5 - LOW BACK PAIN Qualifiers: Chronicity: acute (2) Postoperative pain Code(s): G89.18 - OTHER ACUTE POSTPROCEDURAL PAIN
[2018-07-10] MEDS: RIVAROXABAN 20 MG TABLET PO SCH (17:06)
[2018-07-10] MEDS: ZOLPIDEM TARTRATE 5 MG TABLET PO PRN (23:11)
[2018-07-11] MEDS: ACETAMINOPHEN 650 MG/20.3 ML ORAL SOLUTION (CUPS) PO PRN ×2 (06:13→15:19)
[2018-07-11] MEDS: INSULIN SLIDING SCALE (NOVOLOG) 1 VIAL SQ SCH ×4 (06:14→21:36)
[2018-07-11] MEDS: CYCLOBENZAPRINE HCL 10 MG TABLET (FP) PO SCH ×3 (06:14→21:22)
[2018-07-11 08:03] LABS: ANION GAP 9 MMOL/L (8-16); BLOOD UREA NITROGEN 17 mg/dL (7-18); CALCIUM 8.1 mg/dL (8.5-10.1); CHLORIDE 102 mmol/L (98-107); CO2 26 mmol/L (21-32); CREATININE 0.7 mg/dL (0.55-1.3); GLUCOSE,RANDOM 246 mg/dL (74-106); POTASSIUM 3.4 mmol/L (3.5-5.1); SODIUM 137 mmol/L (136-145)
[2018-07-11] MEDS ORDERED: POTASSIUM CHLORIDE TABS 20 MEQ TABLET.ER (FP) PO ONE (08:07)
[2018-07-11 08:56] LABS: HEMATOCRIT 31.7 % (32.4-45.2); HEMOGLOBIN 10.8 GM/dL (10.7-15.3); MCH 30.9 pg (25.7-33.7); MCHC 34.2 g/dl (32.0-36.0); MEAN CELL VOLUME 90.2 fl (80-96); MEAN PLT VOLUME 8.6 fl (7.5-11.1); PLATELET COUNT 220 K/MM3 (134-434); RBC 3.51 M/mm3 (3.60-5.2); RDW 14.7 % (11.6-15.6); WHITE BLOOD COUNT 5.7 K/mm3 (4.0-10.0)
[2018-07-11] MEDS: MULTIVITAMINS (DAILY MVI) TABLET (FP) PO SCH (10:27)
[2018-07-11] MEDS: GABAPENTIN 300 MG CAPSULE (FP) PO SCH ×2 (10:27→21:22)
[2018-07-11] MEDS: HYDROmorphone HCL 2 MG TABLET PO PRN (10:27)
[2018-07-11] MEDS: TORSEMIDE 10 MG TABLET PO SCH (10:28)
--- NOTE | 2018-07-11 15:09 | PN ---
Physical Exam: SUBJECTIVE: Patient seen and examined at bedside-she is very uncomfortable and in a lot of pain- she is frustrated and does not want to be here. she sates that even walking to the bathroom gives her pain but she is still adamantly refusing rehab- she denies any CP/SOB/N.V fevers or chills OBJECTIVE: Vital Signs Period Temp Pulse Resp BP Sys/Marcelo Pulse Ox Last 24 Hr 97.5 F-98.5 F 95-99 20-20 113-135/62-71 97-98 GENERAL: The patient is awake, alert, and fully oriented, EYES: no scleral icterus. NECK: no JVD, no lymphadenopathy LUNGS: CTA B/L; no rales, rhonchi or wheezing HEART: Regular rate and rhythm, S1, S2 without murmur, rub or gallop. ABDOMEN: Soft, nontender, nondistended, normoactive bowel sounds, no guarding, no rebound, no hepatosplenomegaly, no masses. EXTREMITIES: 2+ pulses, warm, well-perfused, no edema + tenderness. . PSYCH: Normal mood, normal affect. SKIN: Warm, dry, normal turgor, no rashes or lesions noted Laboratory Results - last 24 hr 07/10/18 07/10/18 07/11/18 16:20 21:43 06:10 WBC RBC Hgb Hct MCV MCH MCHC RDW Plt Count MPV Sodium Potassium Chloride Carbon Dioxide Anion Gap BUN Creatinine Creat Clearance w eGFR POC Glucometer 204 295 238 Random Glucose Calcium 07/11/18 07/11/18 07/11/18 07:10 08:48 12:24 WBC 5.7 RBC 3.51 L Hgb 10.8 Hct 31.7 L MCV 90.2 MCH 30.9 MCHC 34.2 RDW 14.7 Plt Count 220 MPV 8.6 Sodium 137 Potassium 3.4 L Chloride 102 Carbon Dioxide 26 Anion Gap 9 BUN 17 Creatinine 0.7 Creat Clearance w eGFR > 60 POC Glucometer 318 Random Glucose 246 H Calcium 8.1 L Active Medications Generic Name Dose Route Start Last Admin Trade Name Freq PRN Reason Stop Dose Admin Acetaminophen 325 mg 07/07/18 17:39 07/11/18 06:13 Tylenol Oral Solution - PO 325 mg Q6H PRN Administration PAIN LEVEL 1 - 3 Cyclobenzaprine HCl 10 mg 07/10/18 14:00 07/11/18 14:05 Flexeril - PO 10 mg TID LISA Administration Docusate Sodium 100 mg 07/03/18 01:34 07/10/18 13:43 Colace - PO 100 mg Q12H PRN Administration CONSTIPATION Gabapentin 300 mg 07/03/18 10:00 07/11/18 10:27 Neurontin - PO 300 mg BID LISA Administration Hydromorphone HCl 2 mg 07/08/18 15:50 07/11/18 10:27 Dilaudid - PO 2 mg Q8H PRN Administration PAIN LEVEL 7 - 10 Insulin Aspart 1 vial 07/03/18 07:00 07/11/18 12:25 Novolog Vial Sliding Scale - SQ 8 units ACHS LISA Administration Protocol Multivitamins/Minerals/Vitamin C 1 tab 07/05/18 10:00 07/11/18 10:27 Tab-A-Vit - PO 1 tab DAILY LISA Administration Oxycodone HCl 10 mg 07/11/18 13:54 Roxicodone - PO Q6H PRN PAIN LEVEL 4 - 6 Rivaroxaban 20 mg 07/07/18 18:00 07/10/18 17:06 Xarelto - PO 20 mg DAILY@1800 LISA Administration Senna 2 tab 07/04/18 17:38 Senna - PO HS PRN CONSTIPATION Torsemide 25 mg 07/06/18 10:45 07/11/18 10:28 Demadex - PO 25 mg DAILY LISA Administration Zolpidem Tartrate 10 mg 07/10/18 22:15 07/10/18 23:11 Ambien - PO 10 mg HS PRN Administration INSOMNIA ASSESSMENT/PLAN: 73 yo f w/ PMH multiple back surgeries in the past comes in c/o intractable pain for the past 2 days found to have a paraspinal fluid collection. #back pain s/p fusion and instrumentation revision likely 2/2 paraspinal post op fluid collection -Pelvis MRI shows residual bone marrow edema with a large fluid collection extending from L2-S1 possibly from a seroma, underlying infection cannot be excluded. -pain control with oxycodone 10mg and Dilaudid 2mg q8h and lidoderm patch was added this am -patient without fever or white count at this time. Abscess less likely. Will hold off on ABX for now as per I -patient underwent ultrasound guided aspiration with dr rivera;' drained 30 ml serosanguinous fluid, cx negative -repeat ultrasound shows no change, however, patient is still in a lot of pain: dr braden said patient can get injection as an outpatient but she is refusing. -patient is refusing rehab #DM -holding oral hypoglycemics -ISS -BGMS ACHS #CHF -torsemide 25 daily #FEN -no fluids indicated -monitor electrolytes -DM diet #prophy -xarelto Problem List - Problems (1) Pain in lower back Code(s): M54.5 - LOW BACK PAIN Qualifiers: Chronicity: acute (2) Postoperative pain Code(s): G89.18 - OTHER ACUTE POSTPROCEDURAL PAIN Visit type - Emergency Visit Emergency Visit: Yes ED Registration Date: 07/03/18 Care time: The patient presented to the Emergency Department on the above date and was hospitalized for further evaluation of their emergent condition. - New Patient This patient is new to me today: No - Critical Care Critical Care patient: No
[2018-07-11] MEDS: oxyCODONE HCL 5 MG TABLET PO PRN ×2 (15:19→21:23)
--- NOTE | 2018-07-11 16:33 | PN ---
Teaching Attending Note Name of Resident: Mar Whiteside ATTENDING PHYSICIAN STATEMENT I saw and evaluated the patient. I reviewed the resident's note and discussed the case with the resident. I agree with the resident's findings and plan as documented with exceptions below. SUBJECTIVE: Patient seen and examined. still with back pain with movement, no worsening, overall feels unchanged and requesting to speak to Dr. Borjas. OBJECTIVE: Vital Signs Period Temp Pulse Resp BP Sys/Marcelo Pulse Ox Last 24 Hr 97.5 F-98.5 F 95-99 20-20 113-135/62-71 97-98 Intake & Output 07/08/18 07/09/18 07/10/18 07/11/18 23:59 23:59 23:59 23:59 Intake Total 950 1000 540 750 Balance 950 1000 540 750 General: lying in bed in no acute distress Chest: CTAB, no rales or wheezing Abdomen:soft, obese, NT Extremities: no edema, moving spontenously, able to move freely on changing position, occasionally lifting both legs upto 30 degrees intermittently and occasionally refuses due to pain Musculoskeletal: no spinal point tenderness, swelling noted, lumbar well healed surgical scar Home Medications Medication Instructions Recorded Gabapentin 300 mg PO BID 03/04/14 Oxycodone HCl/Acetaminophen 1 - 2 tab PO Q6H PRN 03/04/14 [Percocet 10-325 mg Tablet] Insulin Lispro Protamin/Lispro 22 unit SQ BID 12/15/15 [Humalog Mix 75-25 Kwikpen] Multivitamins [Multivit ([facility] 1 tab PO DAILY 03/17/16 Formulary)] Zolpidem Tartrate [Ambien] 10 mg PO HS PRN 06/01/17 Docusate Sodium [Colace -] 100 mg PO BID PRN #0 cap 06/03/17 Carvedilol [Coreg -] 25 mg PO BID 06/16/18 Lisinopril 5 mg PO DAILY 06/16/18 Torsemide 50 mg PO DAILY 06/16/18 Rivaroxaban [Xarelto -] 20 mg PO DAILY 06/22/18 Cyclobenzaprine HCl [Flexeril 10 10 mg PO TID #90 tablet 07/08/18 mg] Lidocaine Patch Removal [Lidoderm 1 each MC DAILY@2200 14 Days #14 07/10/18 Patch Removal] each Active Medications Acetaminophen (Tylenol Oral Solution -) 325 mg PO Q6H PRN PRN Reason: PAIN LEVEL 1 - 3 Last Admin: 07/11/18 15:19 Dose: 325 mg Cyclobenzaprine HCl (Flexeril -) 10 mg PO TID [facility] Last Admin: 07/11/18 14:05 Dose: 10 mg Docusate Sodium (Colace -) 100 mg PO Q12H PRN PRN Reason: CONSTIPATION Last Admin: 07/10/18 13:43 Dose: 100 mg Gabapentin (Neurontin -) 300 mg PO BID [facility] Last Admin: 07/11/18 10:27 Dose: 300 mg Insulin Aspart (Novolog Vial Sliding Scale -) 1 vial SQ ACHS [facility]; Protocol Last Admin: 07/11/18 12:25 Dose: 8 units Multivitamins/Minerals/Vitamin C (Tab-A-Vit -) 1 tab PO DAILY [facility] Last Admin: 07/11/18 10:27 Dose: 1 tab Oxycodone HCl (Roxicodone -) 10 mg PO Q6H PRN PRN Reason: PAIN LEVEL 4 - 6 Polyethylene Glycol (Miralax (For Daily Use) -) 17 gm PO DAILY [facility] Rivaroxaban (Xarelto -) 20 mg PO DAILY@1800 [facility] Last Admin: 07/10/18 17:06 Dose: 20 mg Senna (Senna -) 2 tab PO HS PRN PRN Reason: CONSTIPATION Torsemide (Demadex -) 25 mg PO DAILY [facility] Last Admin: 07/11/18 10:28 Dose: 25 mg Zolpidem Tartrate (Ambien -) 10 mg PO HS PRN PRN Reason: INSOMNIA Last Admin: 07/10/18 23:11 Dose: 10 mg Laboratory Results - last 24 hr 07/10/18 07/10/18 07/11/18 16:20 21:43 06:10 WBC RBC Hgb Hct MCV MCH MCHC RDW Plt Count MPV Sodium Potassium Chloride Carbon Dioxide Anion Gap BUN Creatinine Creat Clearance w eGFR POC Glucometer 204 295 238 Random Glucose Calcium 07/11/18 07/11/18 07/11/18 07:10 08:48 12:24 WBC 5.7 RBC 3.51 L Hgb 10.8 Hct 31.7 L MCV 90.2 MCH 30.9 MCHC 34.2 RDW 14.7 Plt Count 220 MPV 8.6 Sodium 137 Potassium 3.4 L Chloride 102 Carbon Dioxide 26 Anion Gap 9 BUN 17 Creatinine 0.7 Creat Clearance w eGFR > 60 POC Glucometer 318 Random Glucose 246 H Calcium 8.1 L ASSESSMENT AND PLAN: 72 y.o. F w/ PMHx. of HTN, NIDDM, systolic CHF, RA, with recent L4-L5 laminectomy on 06/19 who presented to the ER with intractable back pain and found to have a seroma on imaging -L2-S1 seroma s/p IR guided 35 cc sanguinous drainage -Intractable low back pain -Left hip osteonecrosis -PE/DVT on xarelto -NIDDM -HTN -Systolic HF Plan: pain control with dilaudid/flexeril/lidocaine patch. Repeat Ultrasound unchanged fluid collection. Attempting to reach Dr. Borjas for additional recs. Continue monitoring for now. PT as tolerated. Pain management input noted. Xarelto ISS, diabetic diet. DVTPPX on xarelto Dispo home with VNS/PT in [address] Borjas input. Plan discussed with patient and all questions answered.
[2018-07-11 16:43] VITALS: BMI 37.3
[2018-07-11] MEDS: RIVAROXABAN 20 MG TABLET PO SCH (17:21)
[2018-07-11] MEDS: DOCUSATE SODIUM 100 MG CAPSULE (FP) PO PRN (17:21)
[2018-07-11] MEDS: POLYETHYLENE GLYCOL 3350 119 GM BTL PO SCH (17:21)
[2018-07-12] MEDS: ZOLPIDEM TARTRATE 5 MG TABLET PO PRN ×2 (01:00→23:31)
[2018-07-12] MEDS: CYCLOBENZAPRINE HCL 10 MG TABLET (FP) PO SCH ×3 (05:55→21:26)
[2018-07-12 06:49] LABS: HEMATOCRIT 34.6 % (32.4-45.2); MCH 29.2 pg (25.7-33.7); MCHC 31.8 g/dl (32.0-36.0); MEAN CELL VOLUME 91.8 fl (80-96); MEAN PLT VOLUME 8.3 fl (7.5-11.1); PLATELET COUNT 217 K/MM3 (134-434); RBC 3.77 M/mm3 (3.60-5.2); RDW 14.6 % (11.6-15.6); WHITE BLOOD COUNT 6.2 K/mm3 (4.0-10.0)
[2018-07-12] MEDS: INSULIN SLIDING SCALE (NOVOLOG) 1 VIAL SQ SCH ×4 (06:53→21:25)
[2018-07-12 07:31] LABS: ANION GAP 8 MMOL/L (8-16); BLOOD UREA NITROGEN 20 mg/dL (7-18); CALCIUM 8.5 mg/dL (8.5-10.1); CHLORIDE 101 mmol/L (98-107); CO2 27 mmol/L (21-32); CREATININE 0.8 mg/dL (0.55-1.3); GLUCOSE,RANDOM 211 mg/dL (74-106); POTASSIUM 4.2 mmol/L (3.5-5.1); SODIUM 136 mmol/L (136-145)
[2018-07-12] MEDS: oxyCODONE HCL 5 MG TABLET PO PRN ×3 (09:44→23:31)
[2018-07-12] MEDS: TORSEMIDE 10 MG TABLET PO SCH (09:45)
[2018-07-12] MEDS: MULTIVITAMINS (DAILY MVI) TABLET (FP) PO SCH (09:46)
[2018-07-12] MEDS: GABAPENTIN 300 MG CAPSULE (FP) PO SCH ×2 (09:46→21:26)
[2018-07-12] MEDS: DOCUSATE SODIUM 100 MG CAPSULE (FP) PO PRN (09:48)
[2018-07-12] MEDS: POLYETHYLENE GLYCOL 3350 119 GM BTL PO SCH (09:49)
--- NOTE | 2018-07-12 13:31 | PN ---
Teaching Attending Note Name of Resident: Mar Whiteside ATTENDING PHYSICIAN STATEMENT I saw and evaluated the patient. I reviewed the resident's note and discussed the case with the resident. I agree with the resident's findings and plan as documented with exceptions below. SUBJECTIVE: Patient seen and examined. still with back pain, overall feels unchanged. wanting to see Dr. Borjas, refusing SNF placement and wants to go home. OBJECTIVE: Vital Signs Period Temp Pulse Resp BP Sys/Marcelo Pulse Ox Last 24 Hr 97.8 F-99.1 F 95-110 20-20 113-146/64-76 98 Intake & Output 07/09/18 07/10/18 07/11/18 07/12/18 23:59 23:59 23:59 23:59 Intake Total 1000 540 750 0 Balance 1000 540 750 0 Weight 211 lb General: lying in bed in no acute distress musculoskeletal: unchanged exam Extremities: moves spontaneously and elevates up 30 degrees, sensation intact to light touch Abdomen:Soft, obese Home Medications Medication Instructions Recorded Gabapentin 300 mg PO BID 03/04/14 Oxycodone HCl/Acetaminophen 1 - 2 tab PO Q6H PRN 03/04/14 [Percocet 10-325 mg Tablet] Insulin Lispro Protamin/Lispro 22 unit SQ BID 12/15/15 [Humalog Mix 75-25 Kwikpen] Multivitamins [Multivit ([facility] 1 tab PO DAILY 03/17/16 Formulary)] Zolpidem Tartrate [Ambien] 10 mg PO HS PRN 06/01/17 Docusate Sodium [Colace -] 100 mg PO BID PRN #0 cap 06/03/17 Carvedilol [Coreg -] 25 mg PO BID 06/16/18 Lisinopril 5 mg PO DAILY 06/16/18 Torsemide 50 mg PO DAILY 06/16/18 Rivaroxaban [Xarelto -] 20 mg PO DAILY 06/22/18 Cyclobenzaprine HCl [Flexeril 10 10 mg PO TID #90 tablet 07/08/18 mg] Lidocaine Patch Removal [Lidoderm 1 each MC DAILY@2200 14 Days #14 07/10/18 Patch Removal] each Laboratory Results - last 24 hr 07/11/18 07/12/18 07/12/18 21:35 06:00 06:00 WBC 6.2 RBC 3.77 Hgb 11.0 Hct 34.6 MCV 91.8 MCH 29.2 MCHC 31.8 L RDW 14.6 Plt Count 217 MPV 8.3 Sodium 136 Potassium 4.2 Chloride 101 Carbon Dioxide 27 Anion Gap 8 BUN 20 H Creatinine 0.8 Creat Clearance w eGFR > 60 POC Glucometer 304 Random Glucose 211 H Calcium 8.5 07/12/18 06:44 WBC RBC Hgb Hct MCV MCH MCHC RDW Plt Count MPV Sodium Potassium Chloride Carbon Dioxide Anion Gap BUN Creatinine Creat Clearance w eGFR POC Glucometer 212 Random Glucose Calcium ASSESSMENT AND PLAN: 72 y.o. F w/ PMHx. of HTN, NIDDM, systolic CHF, RA, with recent L4-L5 laminectomy on 06/19 who presented to the ER with intractable back pain and found to have a seroma on imaging -L2-S1 seroma s/p IR guided 35 cc sanguinous drainage -Intractable low back pain -Left hip osteonecrosis -PE/DVT on xarelto -NIDDM -HTN -Systolic HF Plan: Dr. Borjas appointment for tomorrow 9 AM Patient agreable to follow up with the same. Declines SNF for now. Continue current regimen. Advised on no driving, operating heavy machinery and maintaining bowel regimen. Home services arranged. D/c home today with outpatient spine follow up tomorrow with Dr. Borjas Plan discussed with patient, all questions answered.
--- NOTE | 2018-07-12 15:49 | PN ---
Physical Exam: SUBJECTIVE: Patient seen and examined at bedside- she is very frustarted that she is still here and is still having a lot of pain. however she denies any CP/ SOB.N/V/.fevers or chills. patient is going tomorrow for SI injections with Dr. Dominguez. OBJECTIVE: Vital Signs Period Temp Pulse Resp BP Sys/Marcelo Pulse Ox Last 24 Hr 97.8 F-99.1 F 99-110 20-20 121-146/68-76 98 GENERAL: The patient is awake, alert, and fully oriented, frustrated EYES: no scleral icterus. NECK: no JVD no lymphadenopathy LUNGS: CTA B/L; no rales, rhonchi or wheezing HEART: Regular rate and rhythm, S1, S2 without murmur, rub or gallop. ABDOMEN: Soft, nontender, nondistended, normoactive bowel sounds, no guarding, no rebound, no hepatosplenomegaly, no masses. EXTREMITIES: 2+ pulses, warm, well-perfused, trace edema. . PSYCH: Normal mood, normal affect. SKIN: Warm, dry, normal turgor, no rashes or lesions noted Laboratory Results - last 24 hr 07/11/18 07/12/18 07/12/18 21:35 06:00 06:00 WBC 6.2 RBC 3.77 Hgb 11.0 Hct 34.6 MCV 91.8 MCH 29.2 MCHC 31.8 L RDW 14.6 Plt Count 217 MPV 8.3 Sodium 136 Potassium 4.2 Chloride 101 Carbon Dioxide 27 Anion Gap 8 BUN 20 H Creatinine 0.8 Creat Clearance w eGFR > 60 POC Glucometer 304 Random Glucose 211 H Calcium 8.5 07/12/18 07/12/18 06:44 13:14 WBC RBC Hgb Hct MCV MCH MCHC RDW Plt Count MPV Sodium Potassium Chloride Carbon Dioxide Anion Gap BUN Creatinine Creat Clearance w eGFR POC Glucometer 212 330 Random Glucose Calcium Active Medications Generic Name Dose Route Start Last Admin Trade Name Freq PRN Reason Stop Dose Admin Acetaminophen 325 mg 07/07/18 17:39 07/11/18 15:19 Tylenol Oral Solution - PO 325 mg Q6H PRN Administration PAIN LEVEL 1 - 3 Cyclobenzaprine HCl 10 mg 07/10/18 14:00 07/12/18 13:40 Flexeril - PO 10 mg TID LISA Administration Docusate Sodium 100 mg 07/03/18 01:34 07/12/18 09:48 Colace - PO 100 mg Q12H PRN Administration CONSTIPATION Gabapentin 300 mg 07/03/18 10:00 07/12/18 09:46 Neurontin - PO 300 mg BID LISA Administration Insulin Aspart 1 vial 07/03/18 07:00 07/12/18 13:40 Novolog Vial Sliding Scale - SQ 8 units ACHS LISA Administration Protocol Multivitamins/Minerals/Vitamin C 1 tab 07/05/18 10:00 07/12/18 09:46 Tab-A-Vit - PO 1 tab DAILY LISA Administration Oxycodone HCl 10 mg 07/11/18 13:54 07/12/18 09:44 Roxicodone - PO 10 mg Q6H PRN Administration PAIN LEVEL 4 - 6 Polyethylene Glycol 17 gm 07/11/18 16:15 07/12/18 09:49 Miralax (For Daily Use) - PO Not Given DAILY LISA Rivaroxaban 20 mg 07/07/18 18:00 07/11/18 17:21 Xarelto - PO 20 mg DAILY@1800 LISA Administration Senna 2 tab 07/04/18 17:38 Senna - PO HS PRN CONSTIPATION Torsemide 25 mg 07/06/18 10:45 07/12/18 09:45 Demadex - PO 25 mg DAILY LISA Administration Zolpidem Tartrate 10 mg 07/10/18 22:15 07/12/18 01:00 Ambien - PO 10 mg HS PRN Administration INSOMNIA ASSESSMENT/PLAN: 73 yo f w/ PMH multiple back surgeries in the past comes in c/o intractable pain for the past 2 days found to have a paraspinal fluid collection. #back pain s/p fusion and instrumentation revision likely 2/2 paraspinal post op fluid collection -Pelvis MRI shows residual bone marrow edema with a large fluid collection extending from L2-S1 possibly from a seroma, underlying infection cannot be excluded. -pain control with oxycodone 10mg and Dilaudid 2mg q8h and lidoderm patch was added this am -patient without fever or white count at this time. Abscess less likely. Will hold off on ABX for now as per I -patient underwent ultrasound guided aspiration with dr dominguez;' drained 30 ml serosanguinous fluid, cx negative -repeat ultrasound shows no change, however, patient is still in a lot of pain: -patient going for injection and aspiration of hematoma tomorrow AM with Dr. Dominguez #DM -holding oral hypoglycemics -ISS -BGMS ACHS #CHF -torsemide 25 daily #FEN -no fluids indicated -monitor electrolytes -DM diet #prophy -xarelto on hold for tomorrow Problem List - Problems (1) Pain in lower back Code(s): M54.5 - LOW BACK PAIN Qualifiers: Chronicity: acute (2) Postoperative pain Code(s): G89.18 - OTHER ACUTE POSTPROCEDURAL PAIN Visit type - Emergency Visit Emergency Visit: Yes ED Registration Date: 07/03/18 Care time: The patient presented to the Emergency Department on the above date and was hospitalized for further evaluation of their emergent condition. - New Patient This patient is new to me today: No - Critical Care Critical Care patient: No
--- NOTE | 2018-07-12 19:29 | PN ---
Progress Note (short form) - Note Progress Note: Pt. needs: 1. Ultrasound of previously IR guided, aspirated left-sided gluteal hematoma. If collection has collected, recommend IR guided aspiration again with possible catheter placement. 2. Diagnostic CT-guided left-sided sacroiliac (SI) joint injection with marcaine. Anticoagulation must be adjusted to facilitate procedure. Plan discussed with IR team and primary medical hospitalist team. Will follow.
[2018-07-13] MEDS: CYCLOBENZAPRINE HCL 10 MG TABLET (FP) PO SCH ×3 (05:18→21:22)
[2018-07-13] MEDS: INSULIN SLIDING SCALE (NOVOLOG) 1 VIAL SQ SCH ×4 (06:33→21:30)
--- NOTE | 2018-07-13 08:20 | PN ---
Physical Exam: SUBJECTIVE: Patient seen and examined at bedside. no acute events overnight patient states her pain is still there but shes tolerating it; she denies any CP /SOB/N/V fevers or chills OBJECTIVE: Vital Signs Period Temp Pulse Resp BP Sys/Marcelo Pulse Ox Last 24 Hr 98.1 F-98.9 F 98-110 18-20 121-150/62-77 97-98 GENERAL: The patient is awake, alert, and fully oriented, in no acute distress. EYES: no scleral icterus. NECK: no JVD, no lymphadenopathy LUNGS: CTA B/L; no rales, rhonchi or wheezing HEART: Regular rate and rhythm, S1, S2 without murmur, rub or gallop. ABDOMEN: Soft, nontender, nondistended, normoactive bowel sounds, no guarding, no rebound, no hepatosplenomegaly, no masses. EXTREMITIES: 2+ pulses, warm, well-perfused, trace edema . lumbar tenderness upon palpation SKIN: Warm, dry, normal turgor, no rashes or lesions noted Laboratory Results - last 24 hr 07/12/18 07/12/18 07/12/18 06:00 13:14 17:01 WBC 6.2 RBC 3.77 Hgb 11.0 Hct 34.6 MCV 91.8 MCH 29.2 MCHC 31.8 L RDW 14.6 Plt Count 217 MPV 8.3 POC Glucometer 330 188 07/12/18 07/13/18 21:20 06:29 WBC RBC Hgb Hct MCV MCH MCHC RDW Plt Count MPV POC Glucometer 256 168 Active Medications Generic Name Dose Route Start Last Admin Trade Name Abelq PRN Reason Stop Dose Admin Acetaminophen 325 mg 07/07/18 17:39 07/11/18 15:19 Tylenol Oral Solution - PO 325 mg Q6H PRN Administration PAIN LEVEL 1 - 3 Cyclobenzaprine HCl 10 mg 07/10/18 14:00 07/13/18 05:18 Flexeril - PO 10 mg TID LISA Administration Docusate Sodium 100 mg 07/03/18 01:34 07/12/18 09:48 Colace - PO 100 mg Q12H PRN Administration CONSTIPATION Gabapentin 300 mg 07/03/18 10:00 07/12/18 21:26 Neurontin - PO 300 mg BID LISA Administration Insulin Aspart 1 vial 07/03/18 07:00 07/13/18 06:33 Novolog Vial Sliding Scale - SQ 2 units ACHS LISA Administration Protocol Multivitamins/Minerals/Vitamin C 1 tab 07/05/18 10:00 07/12/18 09:46 Tab-A-Vit - PO 1 tab DAILY LISA Administration Oxycodone HCl 10 mg 07/11/18 13:54 07/12/18 23:31 Roxicodone - PO 10 mg Q6H PRN Administration PAIN LEVEL 4 - 6 Polyethylene Glycol 17 gm 07/11/18 16:15 07/12/18 09:49 Miralax (For Daily Use) - PO Not Given DAILY LISA Senna 2 tab 07/04/18 17:38 Senna - PO HS PRN CONSTIPATION Torsemide 25 mg 07/06/18 10:45 07/12/18 09:45 Demadex - PO 25 mg DAILY LISA Administration Zolpidem Tartrate 10 mg 07/10/18 22:15 07/12/18 23:31 Ambien - PO 10 mg HS PRN Administration INSOMNIA ASSESSMENT/PLAN: 73 yo f w/ PMH multiple back surgeries in the past comes in c/o intractable pain for the past 2 days found to have a paraspinal fluid collection. #back pain s/p fusion and instrumentation revision likely 2/2 paraspinal post op fluid collection -Pelvis MRI shows residual bone marrow edema with a large fluid collection extending from L2-S1 possibly from a seroma, underlying infection cannot be excluded. -pain control with oxycodone 10mg and Dilaudid 2mg q8h and lidoderm patch was added this am -patient without fever or white count at this time. Abscess less likely. Will hold off on ABX for now as per I -patient underwent ultrasound guided aspiration with dr dominguez;' drained 30 ml serosanguinous fluid, cx negative -repeat ultrasound shows no change, however, patient is still in a lot of pain: -patient going for injection and aspiration of hematoma this AM with Dr. Dominguez; #DM -holding oral hypoglycemics -ISS -BGMS ACHS #CHF -torsemide 25 daily #FEN -no fluids indicated -monitor electrolytes -DM diet #prophy -will resume xarelto when given the OK by Dr. Dominguez Problem List - Problems (1) Pain in lower back Code(s): M54.5 - LOW BACK PAIN Qualifiers: Chronicity: acute (2) Postoperative pain Code(s): G89.18 - OTHER ACUTE POSTPROCEDURAL PAIN Visit type - Emergency Visit Emergency Visit: Yes ED Registration Date: 07/03/18 Care time: The patient presented to the Emergency Department on the above date and was hospitalized for further evaluation of their emergent condition. - New Patient This patient is new to me today: No - Critical Care Critical Care patient: No
--- NOTE | 2018-07-13 08:30 | PN ---
Teaching Attending Note Name of Resident: Mar Whiteside ATTENDING PHYSICIAN STATEMENT I saw and evaluated the patient. I reviewed the resident's note and discussed the case with the resident. I agree with the resident's findings and plan as documented with exceptions below. SUBJECTIVE: Patient seen and examined. Awaiting injection, no new complaints. OBJECTIVE: Vital Signs Period Temp Pulse Resp BP Sys/Marcelo Pulse Ox Last 24 Hr 98.1 F-98.9 F 98-110 18-20 121-150/62-77 97-98 Intake & Output 07/10/18 07/11/18 07/12/18 07/13/18 23:59 23:59 23:59 23:59 Intake Total 540 750 500 500 Balance 540 750 500 500 Weight 211 lb General: lying in bed in no acute distress unchanged exam, moves extremities, comfortable Active Medications Acetaminophen (Tylenol Oral Solution -) 325 mg PO Q6H PRN PRN Reason: PAIN LEVEL 1 - 3 Last Admin: 07/11/18 15:19 Dose: 325 mg Cyclobenzaprine HCl (Flexeril -) 10 mg PO TID [facility] Last Admin: 07/13/18 05:18 Dose: 10 mg Docusate Sodium (Colace -) 100 mg PO Q12H PRN PRN Reason: CONSTIPATION Last Admin: 07/12/18 09:48 Dose: 100 mg Gabapentin (Neurontin -) 300 mg PO BID [facility] Last Admin: 07/12/18 21:26 Dose: 300 mg Insulin Aspart (Novolog Vial Sliding Scale -) 1 vial SQ ACHS [facility]; Protocol Last Admin: 07/13/18 06:33 Dose: 2 units Multivitamins/Minerals/Vitamin C (Tab-A-Vit -) 1 tab PO DAILY [facility] Last Admin: 07/12/18 09:46 Dose: 1 tab Oxycodone HCl (Roxicodone -) 10 mg PO Q6H PRN PRN Reason: PAIN LEVEL 4 - 6 Last Admin: 07/12/18 23:31 Dose: 10 mg Polyethylene Glycol (Miralax (For Daily Use) -) 17 gm PO DAILY [facility] Last Admin: 07/12/18 09:49 Dose: Not Given Senna (Senna -) 2 tab PO HS PRN PRN Reason: CONSTIPATION Torsemide (Demadex -) 25 mg PO DAILY [facility] Last Admin: 07/12/18 09:45 Dose: 25 mg Zolpidem Tartrate (Ambien -) 10 mg PO HS PRN PRN Reason: INSOMNIA Last Admin: 07/12/18 23:31 Dose: 10 mg Laboratory Results - last 24 hr 07/12/18 07/12/18 07/12/18 13:14 17:01 21:20 POC Glucometer 330 188 256 07/13/18 06:29 POC Glucometer 168 ASSESSMENT AND PLAN: 72 y.o. F w/ PMHx. of HTN, NIDDM, systolic CHF, RA, with recent L4-L5 laminectomy on 06/19 who presented to the ER with intractable back pain and found to have a seroma on imaging -L2-S1 seroma s/p IR guided 35 cc sanguinous drainage -Intractable low back pain -Left hip osteonecrosis -PE/DVT on xarelto -NIDDM -HTN -Systolic HF Plan: Plan for IR guided SI joint injectin with marcaine. repeat ultrasound stable for post op fluid collection. Dr. Borjas's input noted. Continue current pain regimen. Xarelto on hold of above Dispo plan for home d/c with services in 24 hours if no concerns post injection and doing well. Plan discussed with patient in detail, all questions answered.
[2018-07-13] MEDS: POLYETHYLENE GLYCOL 3350 119 GM BTL PO SCH (10:03)
[2018-07-13] MEDS: MULTIVITAMINS (DAILY MVI) TABLET (FP) PO SCH (10:03)
[2018-07-13] MEDS: GABAPENTIN 300 MG CAPSULE (FP) PO SCH ×2 (10:03→21:29)
[2018-07-13] MEDS: TORSEMIDE 10 MG TABLET PO SCH (16:50)
[2018-07-13] MEDS: ZOLPIDEM TARTRATE 5 MG TABLET PO PRN (21:22)
[2018-07-14] MEDS: CYCLOBENZAPRINE HCL 10 MG TABLET (FP) PO SCH ×3 (06:39→22:25)
[2018-07-14] MEDS: INSULIN SLIDING SCALE (NOVOLOG) 1 VIAL SQ SCH ×4 (06:41→22:32)
[2018-07-14] MEDS ORDERED: PT OWN MED DRAWER 7, Y5N ONE (09:20)
[2018-07-14] MEDS: oxyCODONE HCL 5 MG TABLET PO PRN ×2 (09:25→22:54)
[2018-07-14] MEDS: DOCUSATE SODIUM 100 MG CAPSULE (FP) PO PRN ×2 (09:27→22:55)
[2018-07-14] MEDS: ACETAMINOPHEN 650 MG/20.3 ML ORAL SOLUTION (CUPS) PO PRN (09:28)
[2018-07-14] MEDS: MULTIVITAMINS (DAILY MVI) TABLET (FP) PO SCH (09:28)
[2018-07-14] MEDS: TORSEMIDE 10 MG TABLET PO SCH (09:29)
[2018-07-14] MEDS: POLYETHYLENE GLYCOL 3350 119 GM BTL PO SCH (09:29)
[2018-07-14] MEDS: GABAPENTIN 300 MG CAPSULE (FP) PO SCH ×2 (09:32→22:25)
[2018-07-14 11:53] LABS: HEMATOCRIT 35.3 % (32.4-45.2); HEMOGLOBIN 11.8 GM/dL (10.7-15.3); MCH 30.1 pg (25.7-33.7); MCHC 33.5 g/dl (32.0-36.0); MEAN CELL VOLUME 89.9 fl (80-96); MEAN PLT VOLUME 8.6 fl (7.5-11.1); PLATELET COUNT 236 K/MM3 (134-434); RBC 3.93 M/mm3 (3.60-5.2); RDW 14.7 % (11.6-15.6); WHITE BLOOD COUNT 4.5 K/mm3 (4.0-10.0)
--- NOTE | 2018-07-14 14:52 | PN ---
Teaching Attending Note Name of Resident: Mar Whiteside ATTENDING PHYSICIAN STATEMENT I saw and evaluated the patient. I reviewed the resident's note and discussed the case with the resident. I agree with the resident's findings and plan as documented with exceptions below. SUBJECTIVE: Patient seen and examined. back pain better, no new complaints, weakness, tingling, numbness, urinary or bowel symptoms. OBJECTIVE: Vital Signs Period Temp Pulse Resp BP Sys/Marcelo Pulse Ox Last 24 Hr 98.1 F-98.7 F 104-124 18-24 122-168/59-100 96-100 Intake & Output 07/11/18 07/12/18 07/13/18 07/14/18 23:59 23:59 23:59 23:59 Intake Total 750 500 900 500 Output Total 400 Balance 750 500 500 500 Weight 211 lb General: lying in bed in no acute distress Abdomen:soft, obese, NT Musculoskeletal: no spinal swelling/erythema or tenderness, moves lower extremities freely in bed, occasionally elevated to 30 degrees, occasionally declines, unchanged exam Home Medications Medication Instructions Recorded Gabapentin 300 mg PO BID 03/04/14 Oxycodone HCl/Acetaminophen 1 - 2 tab PO Q6H PRN 03/04/14 [Percocet 10-325 mg Tablet] Insulin Lispro Protamin/Lispro 22 unit SQ BID 12/15/15 [Humalog Mix 75-25 Kwikpen] Multivitamins [Multivit ([facility] 1 tab PO DAILY 03/17/16 Formulary)] Zolpidem Tartrate [Ambien] 10 mg PO HS PRN 06/01/17 Docusate Sodium [Colace -] 100 mg PO BID PRN #0 cap 06/03/17 Carvedilol [Coreg -] 25 mg PO BID 06/16/18 Lisinopril 5 mg PO DAILY 06/16/18 Torsemide 50 mg PO DAILY 06/16/18 Rivaroxaban [Xarelto -] 20 mg PO DAILY 06/22/18 Cyclobenzaprine HCl [Flexeril -] 10 mg PO TID 7 Days #21 tablet 07/12/18 Lidocaine 5% Patch [Lidoderm Patch 1 patch TP DAILY #7 patch 07/12/18 -] Laboratory Results - last 24 hr 07/13/18 07/13/18 07/14/18 16:53 21:17 06:04 WBC RBC Hgb Hct MCV MCH MCHC RDW Plt Count MPV POC Glucometer 175 283 197 07/14/18 07/14/18 11:25 12:56 WBC 4.5 RBC 3.93 Hgb 11.8 Hct 35.3 MCV 89.9 MCH 30.1 MCHC 33.5 RDW 14.7 Plt Count 236 MPV 8.6 POC Glucometer 335 ASSESSMENT AND PLAN: 72 y.o. F w/ PMHx. of HTN, NIDDM, systolic CHF, RA, with recent L4-L5 laminectomy on 06/19 who presented to the ER with intractable back pain and found to have a seroma on imaging -L2-S1 seroma s/p IR guided 35 cc sanguinous drainage -Intractable low back pain -Left hip osteonecrosis -PE/DVT on xarelto -NIDDM -HTN -Systolic HF Plan: s/p IR guided seroma drainage and SI joint injection. Doing well. Resume xarelto Patient declines SNF. Dispo d/c home with VNS/PT with outpatient follow up with Dr. Borjas. Plan discussed with patient in detail, all questions answered.
--- NOTE | 2018-07-14 16:47 | DS ---
Physical Exam: SUBJECTIVE: Patient seen and examined at bedside- no acute events overnight patient states she is still in pain, denies any CP/SOB/N/V fevers or chills. OBJECTIVE: Vital Signs Period Temp Pulse Resp BP Sys/Marcelo Pulse Ox Last 24 Hr 98.1 F-98.7 F 104-116 18-20 122-147/59-85 96 PHYSICAL EXAM GENERAL: The patient is awake, alert, and fully oriented, in no acute distress. EYES: scleral icterus NECK: no JVD no lympahdenopathy LUNGS: CTA B/L; no rales, rhonchi or wheezing HEART: Regular rate and rhythm, S1, S2 without murmur, rub or gallop. ABDOMEN: Soft, nontender, nondistended, normoactive bowel sounds, no guarding, no rebound, no hepatosplenomegaly, no masses. EXTREMITIES: 2+ pulses, warm, well-perfused, no edema. PSYCH: Normal mood, normal affect. SKIN: Warm, dry, normal turgor, no rashes or lesions noted. LABS Laboratory Results - last 24 hr 07/13/18 07/13/18 07/14/18 16:53 21:17 06:04 WBC RBC Hgb Hct MCV MCH MCHC RDW Plt Count MPV POC Glucometer 175 283 197 07/14/18 07/14/18 11:25 12:56 WBC 4.5 RBC 3.93 Hgb 11.8 Hct 35.3 MCV 89.9 MCH 30.1 MCHC 33.5 RDW 14.7 Plt Count 236 MPV 8.6 POC Glucometer 335 imaging: soft tissue ultrasound #1: Hypoechoic mass within the lower left back of uncertain etiology. Please see above discussion. soft tissue ultrasound #2 Allowing for technical variation no obvious interval change is seen in comparison to a prior ultrasound study of 07/05/2018 with visualization of an approximately 4.5 x 4 x 2.2 cm nonspecific hypoechoic structure within the left posterior lumbar region - ? possible seroma , hematoma, soft tissue mass lesion and probably less likely an abscess. Clinical/laboratory correlation is suggested. Ultrasound-guided percutaneous needle aspiration/biopsy may be considered. MRI evaluation may also be performed. Impression: No obvious interval change is seen as discussed above. HOSPITAL COURSE: Date of Admission:07/03/18 73 yo f w/ PMH multiple back surgeries in the past comes in c/o intractable pain for the past 2 days found to have a paraspinal fluid collection. Patient recently underwent a spinal surgery with Dr Mccullough and returned to the ER a few days later with intractable pain- patient could not walk she was having pain in her lumbar region which is unlike any of her usual pain symptoms. She was found to have a possible fluid collection on soft tissue ultrasound- dr braden was contacted who suggested patient get the collection drained by IR and to determine what type of colleciton it was (seroma v. hematoma) given that patient was recently restarted on her xarelto post-op there was concern on hemaotma. Ir drained 30 ml of serosanguinos fluid from her lumbar area. However patient was still in increasing pain and was barely tolerating even walking with PT- dr braden suggested patient get SI joint injection and also for IR to once again evaluate if more fluid had reaccumulated; patient underwent another drainage procedure. Towards the end of her hospital course, patient had become more tachycardic and somewhat overloaded so her licensing engineer was consulted who increased her coreg dose and torsemide dose and was told follow up with him within the week. patient was also discharged with strict follow up to dr rodrigues office/ Date of Discharge: 07/14/18 Minutes to complete discharge: 39 Discharge Summary Reason For Visit: POSTOPERATIVE PAIN Current Active Problems Insomnia disorder (Acute) Pain in lower back (Acute) Postoperative pain (Acute) Prophylactic measure (Acute) Condition: Stable - Instructions Diet, Activity, Other Instructions: You came to the hospital with complaints of pain in your back and were found to have a pocket of fluid which was drained, cultures were sent which were negative. You received more fluid drained and also injection in your 'Sacro-iliac' joint. You are advised to follow up with your spine surgeon next week for further management. DIET: Low salt diabetic diet ACTIVITY Walker and 24 hour assist and supervision. No driving, operating heavy machinery, lifting weights > 3 lbs in 2 days Rest and light activity as tolerated MEDICATION CHANGES: Following medication changes have been made Please take Torsemide 50mg daily Coreg has been decreased to 6.25 mg twice daily and will need to titrated up by Dr. Pastrana Caution using this with percocet as both medications are sedating and can lead to falls. We are also sending you home with lidoderm patches which help alleviate your pain *if you have increased shortness of bretah please call Dr. Pastrana and see him by the end of the week Taper narcotics as symptoms improve, minimize use. These medications might cause constipation so we advise you to use over the counter regimens such as senna or colace. Home physical therapy and visiting nurse services has been arranged -Please follow up with your primary care physician within one week -Please follow up with Dr Braden in 1 week -please follow up with Dr. Pastrana in 1 week *if you begin to experience any back pain, numbness,tingling chest pain, shortness of breath, new weakness or any new concerns, please call 911 or return to the emergency room immediately Referrals: Mil Pastrana MD [Staff Physician] - 1 Week Sreekanth Braden MD [Staff Physician] - 1 Week Disposition: VNS/HOME HEALTH CARE - Home Medications Comprehensive Discharge Medication List: Ambulatory Orders Gabapentin 300 mg PO BID 03/04/14 Oxycodone HCl/Acetaminophen [Percocet 10-325 mg Tablet] 1 - 2 tab PO Q6H PRN Insulin Lispro Protamin/Lispro [Humalog Mix 75-25 Kwikpen] 22 unit SQ BID Multivitamins [Multivit ([facility] Formulary)] 1 tab PO DAILY 03/17/16 Zolpidem Tartrate [Ambien] 10 mg PO HS PRN 06/01/17 Docusate Sodium [Colace -] 100 mg PO BID PRN #0 cap 06/03/17 Carvedilol [Coreg -] 25 mg PO BID 06/16/18 Lisinopril 5 mg PO DAILY 06/16/18 Torsemide 50 mg PO DAILY 06/16/18 Rivaroxaban [Xarelto -] 20 mg PO DAILY 06/22/18 Lidocaine 5% Patch [Lidoderm Patch -] 1 patch TP DAILY #7 patch 07/12/18 Cyclobenzaprine HCl [Flexeril -] 10 mg PO TID PRN 7 Days #21 tablet 07/14/18 Problem List - Problems (1) Pain in lower back Code(s): M54.5 - LOW BACK PAIN Qualifiers: Chronicity: acute (2) Postoperative pain Code(s): G89.18 - OTHER ACUTE POSTPROCEDURAL PAIN This patient is new to me today: No Emergency Visit: Yes ED Registration Date: 07/03/18 Care time: The patient presented to the Emergency Department on the above date and was hospitalized for further evaluation of their emergent condition. Critical Care patient: No - Discharge Referral Referred to [facility] Med P.C.: No
[2018-07-15] MEDS: CYCLOBENZAPRINE HCL 10 MG TABLET (FP) PO SCH ×3 (05:57→21:45)
[2018-07-15] MEDS: INSULIN SLIDING SCALE (NOVOLOG) 1 VIAL SQ SCH ×4 (06:05→21:45)
[2018-07-15] MEDS ORDERED: PT OWN MED DRAWER 7, Y5N ONE (08:45)
[2018-07-15] MEDS: MULTIVITAMINS (DAILY MVI) TABLET (FP) PO SCH (09:01)
[2018-07-15] MEDS: oxyCODONE HCL 5 MG TABLET PO PRN ×3 (09:01→21:44)
[2018-07-15] MEDS: GABAPENTIN 300 MG CAPSULE (FP) PO SCH ×2 (09:01→21:45)
[2018-07-15] MEDS: POLYETHYLENE GLYCOL 3350 119 GM BTL PO SCH (09:03)
[2018-07-15] MEDS: TORSEMIDE 10 MG TABLET PO SCH (09:03)
--- NOTE | 2018-07-15 11:19 | PN ---
Teaching Attending Note Name of Resident: Sb Garcia ATTENDING PHYSICIAN STATEMENT I saw and evaluated the patient. I reviewed the resident's note and discussed the case with the resident. I agree with the resident's findings and plan as documented with exceptions below. SUBJECTIVE: Patient seen and examined, sleeping, no complaints. OBJECTIVE: Vital Signs Period Temp Pulse Resp BP Sys/Marcelo Pulse Ox Last 24 Hr 98.1 F-99 F 55-108 20-20 106-145/59-93 94-96 Intake & Output 07/12/18 07/13/18 07/14/18 07/15/18 23:59 23:59 23:59 23:59 Intake Total 500 900 500 0 Output Total 400 Balance 500 500 500 0 General: sleeping arousable Abdomen:soft, obese, NT Musculoskeletal: no spinal swelling/erythema or tenderness, moves lower extremities freely in bed, occasionally elevated to 30 degrees, occasionally declines, unchanged exam ASSESSMENT AND PLAN: 72 y.o. F w/ PMHx. of HTN, NIDDM, systolic CHF, RA, with recent L4-L5 laminectomy on 06/19 who presented to the ER with intractable back pain and found to have a seroma on imaging -L2-S1 seroma s/p IR guided 35 cc sanguinous drainage -Intractable low back pain -Left hip osteonecrosis -PE/DVT on xarelto -NIDDM -HTN -Systolic HF Plan: s/p IR guided seroma drainage and SI joint injection. Doing well. Resume xarelto Patient declines SNF. Medically appropriate for home d/c on 07/14, D/c order placed. Home VNS/PT arranged. Plan for outpatient follow up with Dr. Borjas. Plan discussed with patient in detail, all questions answered.
--- NOTE | 2018-07-15 18:41 | PN ---
Physical Exam: SUBJECTIVE: Patient seen and examined at bed side , no acute events over night complain of cough pain is controlled OBJECTIVE: Vital Signs Period Temp Pulse Resp BP Sys/Marcelo Pulse Ox Last 24 Hr 98.3 F-99 F 88-106 20-20 106-137/59-93 94-96 GENERAL: The patient is awake, alert, and fully oriented, in no acute distress. EYES: no scleral icterus. NECK: no JVD, no lymphadenopathy LUNGS: CTA B/L; no rales, rhonchi or wheezing HEART: Regular rate and rhythm, S1, S2 without murmur, rub or gallop. ABDOMEN: Soft, nontender, nondistended, normoactive bowel sounds, no guarding, no rebound, no hepatosplenomegaly, no masses. EXTREMITIES: 2+ pulses, warm, well-perfused, trace edema . lumbar tenderness upon palpation SKIN: Warm, dry, normal turgor, no rashes or lesions noted Laboratory Results - last 24 hr 07/14/18 07/15/18 07/15/18 22:28 06:04 11:48 POC Glucometer 315 169 370 07/15/18 17:07 POC Glucometer 241 Active Medications Generic Name Dose Route Start Last Admin Trade Name Freq PRN Reason Stop Dose Admin Acetaminophen 325 mg 07/07/18 17:39 07/14/18 09:28 Tylenol Oral Solution - PO 325 mg Q6H PRN Administration PAIN LEVEL 1 - 3 Cyclobenzaprine HCl 10 mg 07/10/18 14:00 07/15/18 13:28 Flexeril - PO 10 mg TID LISA Administration Docusate Sodium 100 mg 07/03/18 01:34 07/14/18 22:55 Colace - PO 100 mg Q12H PRN Administration CONSTIPATION Gabapentin 300 mg 07/03/18 10:00 07/15/18 09:01 Neurontin - PO 300 mg BID LISA Administration Insulin Aspart 1 vial 07/03/18 07:00 07/15/18 17:22 Novolog Vial Sliding Scale - SQ 4 units ACHS LISA Administration Protocol Multivitamins/Minerals/Vitamin C 1 tab 07/05/18 10:00 07/15/18 09:01 Tab-A-Vit - PO 1 tab DAILY LISA Administration Oxycodone HCl 10 mg 07/11/18 13:54 07/15/18 14:44 Roxicodone - PO 10 mg Q6H PRN Administration PAIN LEVEL 4 - 6 Polyethylene Glycol 17 gm 07/11/18 16:15 07/15/18 09:03 Miralax (For Daily Use) - PO Not Given DAILY LISA Senna 2 tab 07/04/18 17:38 07/13/18 21:22 Senna - PO 2 tab HS PRN Administration CONSTIPATION Torsemide 25 mg 07/06/18 10:45 07/15/18 09:03 Demadex - PO 25 mg DAILY LISA Administration CBC, BMP 07/14/18 11:25 07/12/18 06:00 ASSESSMENT/PLAN: 73 yo f w/ PMH multiple back surgeries in the past comes in c/o intractable pain for the past 2 days found to have a paraspinal fluid collection. #back pain s/p fusion and instrumentation revision likely 2/2 paraspinal post op fluid collection # Left hip osteonecrosis * s/p IR guided 35 cc sanguinous drainage * pain control * Laxatived for constipation #NIDDM * holding oral hypoglycemics * ISS * BGMS ACHS # systolic CHF * torsemide 25 daily #FEN * no standing fluids * monitor electrolytes * DM diet #prophy * resume xarelto 20 mg po daily # Dispo * pt was discharged but refusing SNF and appealed on DC * DC home with VNS/PT with outpatient follow up with Dr. Borjas. Visit type - Emergency Visit Emergency Visit: Yes ED Registration Date: 07/03/18 Care time: The patient presented to the Emergency Department on the above date and was hospitalized for further evaluation of their emergent condition. - New Patient This patient is new to me today: No - Critical Care Critical Care patient: No - Discharge Referral Referred to [facility] Med P.C.: No
[2018-07-15] MEDS ORDERED: MELATONIN 5 MG TABLETS PO ONE (22:22)
[2018-07-15] MEDS: ACETAMINOPHEN 650 MG/20.3 ML ORAL SOLUTION (CUPS) PO PRN (22:32)
[2018-07-16] MEDS: CYCLOBENZAPRINE HCL 10 MG TABLET (FP) PO SCH ×3 (06:49→22:20)
[2018-07-16] MEDS: INSULIN SLIDING SCALE (NOVOLOG) 1 VIAL SQ SCH ×4 (06:49→22:20)
[2018-07-16] MEDS ORDERED: SODIUM CHLORIDE 500 ML IV STA (08:43)
[2018-07-16 09:21] LABS: BASO % 1.5 % (0-2.0); EOS % 7.1 % (0-4.5); HEMATOCRIT 35.2 % (32.4-45.2); HEMOGLOBIN 11.2 GM/dL (10.7-15.3); LYMPH % 28.4 % (8-40); MCH 28.5 pg (25.7-33.7); MCHC 31.8 g/dl (32.0-36.0); MEAN CELL VOLUME 89.5 fl (80-96); MEAN PLT VOLUME 7.8 fl (7.5-11.1); MONO % 17.5 % (3.8-10.2); NEUT % 45.5 % (42.8-82.8); PLATELET COUNT 240 K/MM3 (134-434); RBC 3.94 M/mm3 (3.60-5.2); RDW 14.6 % (11.6-15.6); WHITE BLOOD COUNT 5.3 K/mm3 (4.0-10.0)
--- NOTE | 2018-07-16 09:48 | PN ---
Physical Exam: SUBJECTIVE: Patient seen and examined. Denies any chest pain, palpitations, tachycardia, abdominal pain or urinary symptoms. PO intake "ok" per patient. No other complaints. Back and leg symptoms have improved. OBJECTIVE: Vital Signs Period Temp Pulse Resp BP Sys/Marcelo Pulse Ox Last 24 Hr 98.3 F-100.2 F 88-109 20-24 118-121/60-93 94 GENERAL: The patient is awake, alert, and fully oriented, in no acute distress. HEAD: Normal with no signs of trauma. EYES: PERRL, extraocular movements intact, sclera anicteric, conjunctiva clear. No ptosis. Chest: CTAB, no rales or wheezing Abdomen:Soft, obese, NT throughout CVS:S1s2 irregular tachycardic MusculoskeletaL : no spinal tenderness, no hematoma or swelling, freely moving both lower extremities in bed and able to elevate upto 40 degrees, improved exam Laboratory Results - last 24 hr 07/15/18 07/15/18 07/15/18 11:48 17:07 21:33 WBC RBC Hgb Hct MCV MCH MCHC RDW Plt Count MPV Absolute Neuts (auto) Neutrophils % Lymphocytes % Monocytes % Eosinophils % Basophils % Nucleated RBC % POC Glucometer 370 241 273 07/16/18 07/16/18 06:48 09:05 WBC 5.3 RBC 3.94 Hgb 11.2 Hct 35.2 MCV 89.5 MCH 28.5 MCHC 31.8 L RDW 14.6 Plt Count 240 MPV 7.8 Absolute Neuts (auto) 2.4 Neutrophils % 45.5 D Lymphocytes % 28.4 Monocytes % 17.5 H Eosinophils % 7.1 H Basophils % 1.5 Nucleated RBC % 0 POC Glucometer 231 Active Medications Generic Name Dose Route Start Last Admin Trade Name Freq PRN Reason Stop Dose Admin Acetaminophen 325 mg 07/07/18 17:39 07/15/18 22:32 Tylenol Oral Solution - PO 325 mg Q6H PRN Administration PAIN LEVEL 1 - 3 Cyclobenzaprine HCl 10 mg 07/10/18 14:00 07/16/18 06:49 Flexeril - PO 10 mg TID LISA Administration Docusate Sodium 100 mg 07/03/18 01:34 07/14/18 22:55 Colace - PO 100 mg Q12H PRN Administration CONSTIPATION Gabapentin 300 mg 07/03/18 10:00 07/15/18 21:45 Neurontin - PO 300 mg BID LISA Administration Insulin Aspart 1 vial 07/03/18 07:00 07/16/18 06:49 Novolog Vial Sliding Scale - SQ 4 units ACHS LISA Administration Protocol Multivitamins/Minerals/Vitamin C 1 tab 07/05/18 10:00 07/15/18 09:01 Tab-A-Vit - PO 1 tab DAILY LISA Administration Oxycodone HCl 10 mg 07/11/18 13:54 07/15/18 21:44 Roxicodone - PO 10 mg Q6H PRN Administration PAIN LEVEL 4 - 6 Polyethylene Glycol 17 gm 07/11/18 16:15 07/15/18 09:03 Miralax (For Daily Use) - PO Not Given DAILY LISA Rivaroxaban 20 mg 07/16/18 18:00 Xarelto - PO DAILY@1800 LISA Senna 2 tab 07/04/18 17:38 07/13/18 21:22 Senna - PO 2 tab HS PRN Administration CONSTIPATION Torsemide 25 mg 07/06/18 10:45 07/15/18 09:03 Demadex - PO 25 mg DAILY LISA Administration ASSESSMENT/PLAN: 72 y.o. F w/ PMHx. of HTN, NIDDM, systolic CHF, RA, with recent L4-L5 laminectomy on 06/19 who presented to the ER with intractable back pain and found to have a seroma on imaging -Hyoptension/tachycardia -L2-S1 seroma s/p IR guided 35 cc sanguinous drainage -Intractable low back pain -Left hip osteonecrosis -PE/DVT on xarelto -IDDM -HTN -Systolic HF Plan: Notified by RN of HR 150s and SBP 80s. EKG done sinus 110s with PVCs (QTc 440s on my calculation). repeat HR 110s with SBP 97. Patient asymptomatic, reports inadequate PO. Will hold torsemide, 500 ml IVF bolus. Check CBC, BMP, Mg/Phos. Monitor hemodynamics. Cardiology input Dr. Pastrana appreciated. Resume coreg as hemodynamics tolerate. s/p IR guided seroma drainage and SI joint injection. Doing well. Resumed xarelto ISS, diabetic diet, resume insulin based on blood sugar readings. Patient declines SNF. Home VNS/PT arranged. Plan for outpatient follow up with Dr. Borjas. Dispo planning on hold for now till hemodynakics improved. Plan discussed with patient and nursing in detail, all questions answered. Visit type - Emergency Visit Emergency Visit: Yes ED Registration Date: 07/03/18 Care time: The patient presented to the Emergency Department on the above date and was hospitalized for further evaluation of their emergent condition. - New Patient This patient is new to me today: No - Critical Care Critical Care patient: No - Discharge Referral Referred to [facility] Med P.C.: No
[2018-07-16 09:59] LABS: ANION GAP 12 MMOL/L (8-16); BLOOD UREA NITROGEN 20 mg/dL (7-18); CALCIUM 8.3 mg/dL (8.5-10.1); CHLORIDE 99 mmol/L (98-107); CO2 24 mmol/L (21-32); CREATININE 0.9 mg/dL (0.55-1.3); GLUCOSE,RANDOM 208 mg/dL (74-106); POTASSIUM 3.9 mmol/L (3.5-5.1); SODIUM 135 mmol/L (136-145)
--- NOTE | 2018-07-16 10:06 | CON.CARD ---
Consult Consult Specialty:: cardio - History of Present Illness Chief Complaint: back pain History of Present Illness: 73 F with chronic spine dz s/p prior surgery, intractable pain s/p reop 06/25, here with back pain and postop seroma. pt had seroma drained by IR. no active infectious issues. d/c arrangements in progress. today noted by RN to have sbp 90s, with HR 110s. prior BP running higher consistently, with HR running 90s-100s consistently here. pt states she is drinking a lot of water and eating fairly normally. leg pain improved signif after 06/25 surgery, now with ongoing back pain at seroma site. denies sob or orthopnea/PND. denies leg swelling. 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 Cardio/Vascular: Yes: CHF, Deep Vein Thrombosis, HTN Pulmonary: Yes: Pulmonary Embolus ...: No Rheumatology: Yes: Rheumatoid Arthritis Endocrine: Yes: Diabetes Mellitus - Past Surgical History Past Surgical History: Yes: Cholecystectomy, Hysterectomy, Joint Replacement Additional Surgical History: Lumbar Fusion - Alcohol/Substance Use Hx Alcohol Use: No - Smoking History Smoking history: Former smoker Have you smoked in the past 12 months: No Aproximately how many cigarettes per day: 0 If you are a former smoker, when did you quit?: 40 YRS - Social History History of Recent Travel: No Home Medications - Allergies Allergies/Adverse Reactions: Allergies Allergy/AdvReac Type Severity Reaction Status Date / Time levofloxacin [From Levaquin] Allergy Severe ANAPHYLAXIS Verified 07/02/18 18:43 methotrexate Allergy Severe Swelling Verified 07/02/18 18:43 Penicillins Allergy Mild Rash Verified 07/02/18 18:43 bumetanide [From Bumex] Allergy Rash Verified 07/02/18 18:43 piperacillin sodium AdvReac Mild Itching Verified 07/02/18 18:43 [From Zosyn] tazobactam sodium AdvReac Mild Itching Verified 07/02/18 18:43 [From Zosyn] - Home Medications Home Medications: Ambulatory Orders Gabapentin 300 mg PO BID 03/04/14 Oxycodone HCl/Acetaminophen [Percocet 10-325 mg Tablet] 1 - 2 tab PO Q6H PRN Insulin Lispro Protamin/Lispro [Humalog Mix 75-25 Kwikpen] 22 unit SQ BID Multivitamins [Multivit ([facility] Formulary)] 1 tab PO DAILY 03/17/16 Zolpidem Tartrate [Ambien] 10 mg PO HS PRN 06/01/17 Docusate Sodium [Colace -] 100 mg PO BID PRN #0 cap 06/03/17 Carvedilol [Coreg -] 25 mg PO BID 06/16/18 Lisinopril 5 mg PO DAILY 06/16/18 Torsemide 50 mg PO DAILY 06/16/18 Rivaroxaban [Xarelto -] 20 mg PO DAILY 06/22/18 Lidocaine 5% Patch [Lidoderm Patch -] 1 patch TP DAILY #7 patch 07/12/18 Cyclobenzaprine HCl [Flexeril -] 10 mg PO TID PRN 7 Days #21 tablet 07/14/18 Family Disease History - Family Disease History Family History: Denies (no known cmp) Review of Systems - Review of Systems Constitutional: denies: Chills, Fever Eyes: denies: Eye Pain HENT: denies: Nasal Congestion Neck: denies: Stiffness Cardiovascular: denies: Palpitations Respiratory: denies: Orthopnea, PND Gastrointestinal: denies: Diarrhea, Rectal Bleeding Genitourinary: denies: Burning, Hematuria Musculoskeletal: denies: Muscle Pain Integumentary: denies: Rash Neurological: denies: Numbness, Seizure, Syncope Endocrine: denies: Excessive Sweating Hematology/Lymphatic: denies: Excessive Bleeding Vital Signs: Vital Signs Temperature 98.3 F 07/16/18 06:00 Pulse Rate 101 H 07/16/18 06:00 Respiratory Rate 22 H 07/16/18 06:00 Blood Pressure 121/91 07/16/18 06:00 O2 Sat by Pulse Oximetry (%) 94 L 07/15/18 21:00 Constitutional: Yes: Well Nourished, No Distress Eyes: No: Sclera Icterus HENT: No: Nasal Congestion Neck: No: Decreased ROM Respiratory: Yes: CTA Bilaterally. No: Accessory Muscle Use, Rales, Wheezes Gastrointestinal: Yes: Normal Bowel Sounds. No: Distention, Hepatomegaly, Palpable Mass, Tenderness Cardiovascular: Yes: Regular Rate and Rhythm JVD: No Carotid Bruit: No PMI: Non-Displaced Heart Sounds: Yes: S1, S2. No: Gallop Murmur: No: Systolic Murmur, Diastolic Murmur Musculoskeletal: Yes: Other (No kyphosis) Extremities: No: Cold, Cyanosis Edema: No Peripheral Pulses: 2+ Left Carotid, 2+ Right Carotid, 2+ Left Doralis Pedis, 2+ Right Dorsalis Pedis Integumentary: No: Jaundice Neurological: Yes: Alert, Oriented (x3) Psychiatric: No: Agitated - Other Data Labs, Other Data: CBC, BMP 07/16/18 09:05 07/16/18 09:05 INR, PTT INR 1.15 (0.83-1.09) H 07/05/18 06:10 Laboratory Tests 07/05/18 07/16/18 07/16/18 06:10 09:05 09:05 WBC 5.3 Hgb 11.2 Plt Count 240 Sodium 135 L Potassium 3.9 Carbon Dioxide 24 BUN 20 H Creatinine 0.9 Random Glucose 208 H AST 11 L ALT 11 L Albumin 2.5 L Assessment/Plan ECG 07/16: sinus tach (113 bpm), ventric trigeminy. intervals WNL (borderline QTC manually calculated as 350/sqrt 0.54 = 476 msec). nonsp TWAs anterior and I/ avL new vs 06/25. no path q waves CXR 07/02: clear lungs/pleura echo here 06/2018: nl lv, rv tds, mild mr, nl rvsp echo here 06/01/17: nl lv, nl rv size, mild fernando, sev mr, mild tr, nl rvsp echo in office 05/09/2017: mild-mod lve, lvef 30-35%, global hk, nl rv size, mild dec rv fcn, mild lae, mod-sev mr mibi 05/2014: no ischemia, mildly reduced lvef cath 2005: normal cors tele: sr, occ pvcs a/p: 71 f hx multiple PEs/DVTs s/p ivc filter and on coumadin, dm, hld, htn, sys chf, here with intractable back pain. 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 varying appearances related to TDS images (Definity used in office 2017) -remains with normal reported LV (and only mild MR), with no signs of pulm HTN on echo done 06/25 here. -seen by us 06/25 (here for refractory back pain req surgical intervention). was euvolemic/stable on torsemide 50 qd, carvedilol 25 bid, lisinopril 5 qd. -currently BB and DORENE held, torsemide reduced 25 qd (presumably due to sbp 80s early on this admit). -appears euvolemic, has had no HF/vol overload for long time now, with improvement on echo. -rec change torsemide to 20 qd. resume carvedilol at 6.25 bid (1/4 dose of prior ), hold DORENE -tolerate sbp > 90 here -pt advised to see me in office in 4 wks to reassess bp and titrate meds, and that recurrent LV dysfunction +/- vol overload tendencies may return if meds not adjusted appropriately. sooner if new leg swelling--she verbalized understanding of all the above -pt with mild hypotension and sinus tach today. the tachycardia is not new ( mostly 90s-100s of late here), but bp is downtrended vs prior. -H/H stable, doubt bleeding. labs do not look prerenal -mini temp spike to 100.2 today, WBC normal--infectious w/u per hospitalist postop L-spine seroma: -per hospitalist, surgeon HTN: -bp low end here, off syst chf meds--as above h/o VTEs (DVTs and PEs): -s/p IVC filter -on lifelong AC per prior plan (felt to be hypercoagulable by heme) -NOAC held for surgery, resume when ok by neurosurgery chronic L/S spine disease/pain: -s/p repeat spine surgery 06/20
[2018-07-16] MEDS: POLYETHYLENE GLYCOL 3350 119 GM BTL PO SCH (10:13)
[2018-07-16] MEDS: GABAPENTIN 300 MG CAPSULE (FP) PO SCH ×2 (10:14→22:20)
[2018-07-16] MEDS: MULTIVITAMINS (DAILY MVI) TABLET (FP) PO SCH (10:14)
[2018-07-16] MEDS ORDERED: TORSEMIDE 10 MG TABLET PO SCH (10:30)
[2018-07-16 11:04] LABS: MAGNESIUM 2.1 mg/dL (1.8-2.4); PHOSPHOROUS 3.6 mg/dL (2.5-4.9)
[2018-07-16] MEDS: ACETAMINOPHEN 650 MG/20.3 ML ORAL SOLUTION (CUPS) PO PRN ×2 (12:31→17:41)
[2018-07-16] MEDS ORDERED: CARVEDILOL 6.25 MG TABLET (FP) PO ONE (14:53)
[2018-07-16] MEDS: RIVAROXABAN 20 MG TABLET PO SCH (17:16)
--- NOTE | 2018-07-16 17:16 | EKG ---
Test Reason : Blood Pressure : / mmHG Vent. Rate : 113 BPM Atrial Rate : 113 BPM P-R Int : 168 ms QRS Dur : 090 ms QT Int : 450 ms P-R-T Axes : 043 073 094 degrees QTc Int : 617 ms SINUS TACHYCARDIA WITH PREMATURE SUPRAVENTRICULAR COMPLEXES AND WITH FREQUENT PREMATURE VENTRICULAR COMPLEXES T WAVE ABNORMALITY, CONSIDER ANTERIOR ISCHEMIA PROLONGED QT ABNORMAL ECG WHEN COMPARED WITH ECG OF 03-JUL-2018 00:14, PREMATURE SUPRAVENTRICULAR COMPLEXES ARE NOW PRESENT T WAVE INVERSION NOW EVIDENT IN ANTERIOR LEADS Confirmed by RENZO CHOU, LEONEL ([id number]) on 07/16/2018 5:15:51 PM Referred By: Dolores MCFARLAND Confirmed By:LEONEL MULLER MD
--- NOTE | 2018-07-16 17:30 | PN ---
Progress Note (short form) - Note Progress Note: Pain slightly improving. SI joint injection no improvement at all. Original radiculopathy resolved general medical status stable Assess Muscle tear R iliolumbar and gluteus jacky muscle. Xaralta added to the hematoma Expansion of the hematoma led to increased pain aspiration resulted in a temporary relief of symptoms PLAN D/C home with services
[2018-07-16] MEDS: CARVEDILOL 6.25 MG TABLET (FP) PO SCH (22:20)
[2018-07-16] MEDS: oxyCODONE HCL 5 MG TABLET PO PRN (23:28)
[2018-07-16] MEDS ORDERED: MELATONIN 5 MG TABLETS PO ONE (23:30)
[2018-07-17 06:27] LABS: EOS % 6.8 % (0-4.5); HEMOGLOBIN 9.9 GM/dL (10.7-15.3); MCH 28.4 pg (25.7-33.7); MCHC 31.8 g/dl (32.0-36.0); MEAN CELL VOLUME 89.3 fl (80-96); MEAN PLT VOLUME 8.2 fl (7.5-11.1); MONO % 13.1 % (3.8-10.2); NEUT % 53.1 % (42.8-82.8); PLATELET COUNT 238 K/MM3 (134-434); RBC 3.48 M/mm3 (3.60-5.2); RDW 14.6 % (11.6-15.6); WHITE BLOOD COUNT 5.6 K/mm3 (4.0-10.0)
[2018-07-17] MEDS: CYCLOBENZAPRINE HCL 10 MG TABLET (FP) PO SCH ×2 (06:31→13:25)
[2018-07-17] MEDS: INSULIN SLIDING SCALE (NOVOLOG) 1 VIAL SQ SCH ×3 (06:32→17:42)
[2018-07-17 06:50] LABS: ANION GAP 9 MMOL/L (8-16); BLOOD UREA NITROGEN 23 mg/dL (7-18); CHLORIDE 102 mmol/L (98-107); CO2 24 mmol/L (21-32); CREATININE 0.8 mg/dL (0.55-1.3); GLUCOSE,RANDOM 217 mg/dL (74-106); MAGNESIUM 2.1 mg/dL (1.8-2.4); PHOSPHOROUS 4.2 mg/dL (2.5-4.9); POTASSIUM 4.2 mmol/L (3.5-5.1); SODIUM 134 mmol/L (136-145)
--- NOTE | 2018-07-17 08:39 | PN ---
Teaching Attending Note Name of Resident: Mar Wihteside ATTENDING PHYSICIAN STATEMENT I saw and evaluated the patient. I reviewed the resident's note and discussed the case with the resident. I agree with the resident's findings and plan as documented with exceptions below SUBJECTIVE: Patient seen and examined. No new complaints. OBJECTIVE: Vital Signs Period Temp Pulse Resp BP Sys/Marcelo Pulse Ox Last 24 Hr 97.4 F-98.6 F 91-150 20-22 103-145/52-79 94-94 Intake & Output 07/14/18 07/15/18 07/16/18 07/17/18 23:59 23:59 23:59 23:59 Intake Total 500 0 200 100 Balance 500 0 200 100 GENERAL: The patient is awake, alert, and fully oriented, in no acute distress. HEAD: Normal with no signs of trauma. EYES: PERRL, extraocular movements intact, sclera anicteric, conjunctiva clear. No ptosis. Chest: poor effort, no wheezing Abdomen:Soft, obese, NT throughout CVS:S1S2 irregular tachycardic Musculoskeletal : no spinal tenderness, no hematoma or swelling, freely moving both lower extremities in bed and able to elevate upto 40 degrees, improved exam ASSESSMENT AND PLAN: 72 y.o. F w/ PMHx. of HTN, NIDDM, systolic CHF, RA, with recent L4-L5 laminectomy on 06/19 who presented to the ER with intractable back pain and found to have a seroma on imaging -Hyoptension/tachycardia, resolved. -L2-S1 seroma s/p IR guided 35 cc sanguinous drainage -Intractable low back pain -Left hip osteonecrosis -PE/DVT on xarelto -IDDM -HTN -Systolic HF Plan: hemodynamics stable, cardiology input noted. Coreg resumed at lower dose. Continue torsemide. Lasix 40 mg IV. s/p IR guided seroma drainage and SI joint injection. Doing well. Resumed xarelto ISS, diabetic diet, resume insulin based on blood sugar readings. Patient declines SNF. Home VNS/PT arranged. Plan for outpatient follow up with Dr. Borjas. Dispo planning dc home with VNS today(await appeal information from social work ) with outpatient Cardiology and spine follow up. Plan discussed with patient and nursing in detail, all questions answered.
--- NOTE | 2018-07-17 09:11 | PN ---
Progress Note, Physician Chief Complaint: sob History of Present Illness: had phlegm in chest and light cough on DOA but could not bring up the phlegm. 3d ago began coughing up green phlegm. last night and today feeling sob at rest or with little movement. no wheezing no leg swelling no cp, palpitations - Current Medication List Current Medications: Active Medications Acetaminophen (Tylenol Oral Solution -) 325 mg PO Q6H PRN PRN Reason: PAIN LEVEL 1 - 3 Last Admin: 07/16/18 17:41 Dose: 325 mg Carvedilol (Coreg -) 6.25 mg PO BID [facility] Last Admin: 07/16/18 22:20 Dose: 6.25 mg Cyclobenzaprine HCl (Flexeril -) 10 mg PO TID [facility] Last Admin: 07/17/18 06:31 Dose: 10 mg Docusate Sodium (Colace -) 100 mg PO Q12H PRN PRN Reason: CONSTIPATION Last Admin: 07/14/18 22:55 Dose: 100 mg Gabapentin (Neurontin -) 300 mg PO BID [facility] Last Admin: 07/16/18 22:20 Dose: 300 mg Insulin Aspart (Novolog Vial Sliding Scale -) 1 vial SQ [facility]; Protocol Last Admin: 07/17/18 06:32 Dose: 4 units Multivitamins/Minerals/Vitamin C (Tab-A-Vit -) 1 tab PO DAILY [facility] Last Admin: 07/16/18 10:14 Dose: 1 tab Oxycodone HCl (Roxicodone -) 10 mg PO Q6H PRN PRN Reason: PAIN LEVEL 6-10 Last Admin: 07/16/18 23:28 Dose: 10 mg Polyethylene Glycol (Miralax (For Daily Use) -) 17 gm PO DAILY [facility] Last Admin: 07/16/18 10:13 Dose: 17 gm Rivaroxaban (Xarelto -) 20 mg PO DAILY@1800 [facility] Last Admin: 07/16/18 17:16 Dose: 20 mg Senna (Senna -) 2 tab PO HS PRN PRN Reason: CONSTIPATION Last Admin: 07/13/18 21:22 Dose: 2 tab Torsemide (Demadex -) 20 mg PO DAILY [facility] - Objective Vital Signs: Vital Signs Temperature 97.4 F L 07/17/18 06:12 Pulse Rate 92 H 07/17/18 06:12 Respiratory Rate 20 07/17/18 06:12 Blood Pressure 103/55 L 07/17/18 06:12 O2 Sat by Pulse Oximetry (%) 94 L 07/16/18 21:00 Constitutional: Yes: No Distress, Calm, Obese Cardiovascular: Yes: Regular Rate and Rhythm, JVD (possible), S1, S2. No: Gallop, Murmur Respiratory: Yes: Regular, Rales (L base). No: Accessory Muscle Use, Wheezes Extremities: No: Cold Edema: No Neurological: Yes: Alert, Oriented Psychiatric: No: Agitated Labs: CBC, BMP 07/17/18 06:00 07/17/18 06:00 INR, PTT INR 1.15 (0.83-1.09) H 07/05/18 06:10 Assessment/Plan ECG 07/16: sinus tach (113 bpm), ventric trigeminy. intervals WNL (borderline QTC manually calculated as 350/sqrt 0.54 = 476 msec). nonsp TWAs anterior and I/ avL new vs 06/25. no path q waves CXR 07/02: clear lungs/pleura echo here 06/2018: nl lv, rv tds, mild mr, nl rvsp echo here 06/01/17: nl lv, nl rv size, mild fernando, sev mr, mild tr, nl rvsp echo in office 05/09/2017: mild-mod lve, lvef 30-35%, global hk, nl rv size, mild dec rv fcn, mild lae, mod-sev mr mibi 05/2014: no ischemia, mildly reduced lvef cath 2005: normal cors tele: sr, occ pvcs a/p: 71 f hx multiple PEs/DVTs s/p ivc filter and on coumadin, dm, hld, htn, sys chf, here with intractable back pain. sob, productive cough, ? acute chf: -chronic, progressive cough since DOA, greenish phlegm -now with sob today -suspect bronchitis +/- PNA -? JVD on exam--could have component of chf decomp due to 500 cc NS given yest, and diuretics have been cut back for many days. -lasix 40 IV x 1 now. -check weight. 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 varying appearances related to TDS images (Definity used in office 2017) -remains with normal reported LV (and only mild MR), with no signs of pulm HTN on echo done 06/25 here. -seen by us 06/25 (here for refractory back pain req surgical intervention). was euvolemic/stable on torsemide 50 qd, carvedilol 25 bid, lisinopril 5 qd. -hypotensive early on during this hosp stay--BB and DORENE held, torsemide reduced 25 qd -appears euvolemic, has had no HF/vol overload for long time now, with improvement on echo. -07/16: sbp 90s-110s. resumed carvedilol at 6.25 bid (1/4 dose of prior), continue holding DORENE -07/17: bp stable. same meds. diuresis trial, as disc'd above -tolerate sbp > 90 here -pt advised to see me in office in 4 wks to reassess bp and titrate meds, and that recurrent LV dysfunction +/- vol overload tendencies may return if meds not adjusted appropriately. sooner if new leg swelling--she verbalized understanding of all the above postop L-spine seroma: -per hospitalist, surgeon HTN: -bp low end here, off syst chf meds--as above h/o VTEs (DVTs and PEs): -s/p IVC filter -on lifelong AC per prior plan (felt to be hypercoagulable by heme) -NOAC held for surgery, resume when ok by neurosurgery chronic L/S spine disease/pain: -s/p repeat spine surgery 06/20
[2018-07-17] MEDS: CARVEDILOL 6.25 MG TABLET (FP) PO SCH (09:36)
[2018-07-17] MEDS: GABAPENTIN 300 MG CAPSULE (FP) PO SCH (09:36)
[2018-07-17] MEDS: MULTIVITAMINS (DAILY MVI) TABLET (FP) PO SCH (09:36)
[2018-07-17] MEDS: POLYETHYLENE GLYCOL 3350 119 GM BTL PO SCH (09:37)
[2018-07-17] MEDS ORDERED: TORSEMIDE 20 MG TABLET (FP) PO SCH (10:00)
[2018-07-17] MEDS: oxyCODONE HCL 5 MG TABLET PO PRN (10:11)
[2018-07-17] MEDS ORDERED: FUROSEMIDE 40 MG/4 ML INJECTABLE VIAL IVPUSH ONE ×2 (10:14→15:53)
[2018-07-17] MEDS ORDERED: INSULIN (NOVOLOG) ASPART 100 UNITS/ML 10ML VIAL ONE (11:00)
[2018-07-17] MEDS: ACETAMINOPHEN 650 MG/20.3 ML ORAL SOLUTION (CUPS) PO PRN (14:57)
[2018-07-17 15:03] VITALS: PULSE 89
[2018-07-17] MEDS ORDERED: PT OWN MED DRAWER 7, Y5N ONE (15:28)
--- NOTE | 2018-07-17 15:52 | PN ---
Physical Exam: SUBJECTIVE: Patient seen and examined at bedside- patient states her pain is better. she is endorsing a productive cough. however. she denies any CP/N/V fevers or chills. yesterday patient was hypotensive and tachycardic OBJECTIVE: Vital Signs Period Temp Pulse Resp BP Sys/Marcelo Pulse Ox Last 24 Hr 97.4 F-98.6 F 89-150 20-22 103-146/52-80 94-94 GENERAL: The patient is awake, alert, and fully oriented, in no acute distress. EYES: no scleral icterus NECK: slight JVD LUNGS:CTA B/L; no rales, rhonchi or wheezing appreciated anteriorly HEART: Regular rate and rhythm, S1, S2 without murmur, rub or gallop. ABDOMEN: Soft, nontender, nondistended, normoactive bowel sounds, no guarding, no rebound, no hepatosplenomegaly, no masses. EXTREMITIES: 2+ pulses, warm, well-perfused, no edema. . slight lumbar tenderness PSYCH: Normal mood, normal affect. SKIN: Warm, dry, normal turgor, no rashes or lesions noted Laboratory Results - last 24 hr 07/16/18 07/16/18 07/17/18 16:15 22:19 06:00 WBC 5.6 RBC 3.48 L Hgb 9.9 L Hct 31.0 L MCV 89.3 MCH 28.4 MCHC 31.8 L RDW 14.6 Plt Count 238 MPV 8.2 Absolute Neuts (auto) 3.0 Neutrophils % 53.1 Lymphocytes % 26.0 Monocytes % 13.1 H Eosinophils % 6.8 H Basophils % 1.0 Nucleated RBC % 0 Sodium Potassium Chloride Carbon Dioxide Anion Gap BUN Creatinine Creat Clearance w eGFR POC Glucometer 240 323 Random Glucose Calcium Phosphorus Magnesium B-Natriuretic Peptide 07/17/18 07/17/18 07/17/18 06:00 06:30 11:16 WBC RBC Hgb Hct MCV MCH MCHC RDW Plt Count MPV Absolute Neuts (auto) Neutrophils % Lymphocytes % Monocytes % Eosinophils % Basophils % Nucleated RBC % Sodium 134 L Potassium 4.2 Chloride 102 Carbon Dioxide 24 Anion Gap 9 BUN 23 H Creatinine 0.8 Creat Clearance w eGFR > 60 POC Glucometer 250 241 Random Glucose 217 H Calcium 8.0 L Phosphorus 4.2 Magnesium 2.1 B-Natriuretic Peptide 2268.0 H Active Medications Generic Name Dose Route Start Last Admin Trade Name Freq PRN Reason Stop Dose Admin Acetaminophen 325 mg 07/07/18 17:39 07/17/18 14:57 Tylenol Oral Solution - PO 325 mg Q6H PRN Administration PAIN LEVEL 1 - 3 Carvedilol 6.25 mg 07/16/18 22:00 07/17/18 09:36 Coreg - PO 6.25 mg BID LISA Administration Cyclobenzaprine HCl 10 mg 07/10/18 14:00 07/17/18 13:25 Flexeril - PO 10 mg TID LISA Administration Docusate Sodium 100 mg 07/03/18 01:34 07/14/18 22:55 Colace - PO 100 mg Q12H PRN Administration CONSTIPATION Gabapentin 300 mg 07/03/18 10:00 07/17/18 09:36 Neurontin - PO 300 mg BID LISA Administration Insulin Aspart 1 vial 07/03/18 07:00 07/17/18 11:17 Novolog Vial Sliding Scale - SQ 4 units ACHS LISA Administration Protocol Multivitamins/Minerals/Vitamin C 1 tab 07/05/18 10:00 07/17/18 09:36 Tab-A-Vit - PO 1 tab DAILY LISA Administration Oxycodone HCl 10 mg 07/16/18 22:43 07/17/18 10:11 Roxicodone - PO 10 mg Q6H PRN Administration PAIN LEVEL 6-10 Polyethylene Glycol 17 gm 07/11/18 16:15 07/17/18 09:37 Miralax (For Daily Use) - PO 17 gm DAILY LISA Administration Rivaroxaban 20 mg 07/16/18 18:00 07/16/18 17:16 Xarelto - PO 20 mg DAILY@1800 LISA Administration Senna 2 tab 07/04/18 17:38 07/13/18 21:22 Senna - PO 2 tab HS PRN Administration CONSTIPATION Torsemide 20 mg 07/17/18 10:00 07/17/18 09:36 Demadex - PO 20 mg DAILY LISA Administration ASSESSMENT/PLAN: 73 yo f w/ PMH multiple back surgeries in the past comes in c/o intractable pain for the past 2 days found to have a paraspinal fluid collection. #back pain s/p fusion and instrumentation revision likely 2/2 paraspinal post op fluid collection -Pelvis MRI shows residual bone marrow edema with a large fluid collection extending from L2-S1 possibly from a seroma, underlying infection cannot be excluded. -pain control with oxycodone 10mg and Dilaudid 2mg q8h and lidoderm patch was added this am -patient without fever or white count at this time. Abscess less likely. Will hold off on ABX for now as per I -patient underwent ultrasound guided aspiration with dr rivera;' drained 30 ml serosanguinous fluid, cx negative -repeat ultrasound shows no change, however, patient is still in a lot of pain: -patient underwent SI joint injection and also another aspiration with Dr Galindo on tuesday #Acute CHF patient was hypotensive and tachycardic yesterday with higher BNP than baseline ; and patient also endorsing a cough -Dr Pastrana saw patient yesterday and this AM -2 doses of 40 IV lasix today -decreased torsemide to 20 daily -added coreg 6.25 daily -monitor daily weights #DM -holding oral hypoglycemics -ISS -BGMS ACHS #FEN -no fluids indicated -monitor electrolytes -DM diet PPX: xarelto Problem List - Problems (1) Pain in lower back Code(s): M54.5 - LOW BACK PAIN Qualifiers: Chronicity: acute (2) Postoperative pain Code(s): G89.18 - OTHER ACUTE POSTPROCEDURAL PAIN Visit type - Emergency Visit Emergency Visit: Yes ED Registration Date: 07/03/18 Care time: The patient presented to the Emergency Department on the above date and was hospitalized for further evaluation of their emergent condition. - New Patient This patient is new to me today: No - Critical Care Critical Care patient: No
[2018-07-17 17:10] VITALS: BP 103/59; TEMP 98
[2018-07-17] MEDS: RIVAROXABAN 20 MG TABLET PO SCH (17:43)
== END 2018-07-17 18:00 | disposition home health service (06) | DRG 919 ==
LOC: JER 18:24 → JERBED 07-03 00:20 → J7W 07-03 14:40
PROVIDERS: ADMIT Internal Medicine; ATTEND Hospitalist
PROC: 009Y3ZX Drainage of Lumbar Spinal Cord, Percutaneous Approach, Diagnostic (ICD-10-PCS; principal; 2018-07-06)
PROC: 3E0R3NZ Introduction of Analgesics, Hypnotics, Sedatives into Spinal Canal, Percutaneous Approach (ICD-10-PCS; 2018-07-13)
PROC: 009Y3ZX Drainage of Lumbar Spinal Cord, Percutaneous Approach, Diagnostic (ICD-10-PCS; 2018-07-13)
DX: M96.843 Postprocedural seroma of a musculoskeletal structure following other procedure (principal); I50.33 Acute on chronic diastolic (congestive) heart failure; M87.9 Osteonecrosis, unspecified; I42.8 Other cardiomyopathies; Y83.8 Other surgical procedures as the cause of abnormal reaction of the patient, or of later complication, without mention of misadventure at the time of the procedure; E11.9 Type 2 diabetes mellitus without complications; M06.9 Rheumatoid arthritis, unspecified; E78.5 Hyperlipidemia, unspecified; G89.18 Other acute postprocedural pain; I11.0 Hypertensive heart disease with heart failure; M54.5 Low back pain; E66.9 Obesity, unspecified; Z68.38 Body mass index [BMI] 38.0-38.9, adult; I95.9 Hypotension, unspecified; R00.0 Tachycardia, unspecified; G47.33 Obstructive sleep apnea (adult) (pediatric); Z98.84 Bariatric surgery status; Z86.711 Personal history of pulmonary embolism; Z87.891 Personal history of nicotine dependence; Z86.718 Personal history of other venous thrombosis and embolism
CPT/HCPCS: 10030; 36415; 64493; 71045-TC-FY; 72131-TC; 72195-TC; 76380-TC; 76604; 76942-TC; 80048; 80053; 82728; 82962; 83540; 83550; 83735; 83880; 84100; 85025; 85027; 85610; 87040; 87070; 87075; 87102; 87116; 87205; 87206; 87210; 87899; 88108; 90688; 93005; 93010; 97116-GP; 97162-GP; 99283-25; G0008; J7030

== ENCOUNTER 2018-07-25 11:32 | Inpatient (IN) | payer OTHER ==
[2018-07-25 11:49] VITALS: BMI 37.2
--- NOTE | 2018-07-25 13:05 | PDOC ---
History of Present Illness - General Chief Complaint: Shortness of Breath Stated Complaint: Shortness of Breath Time Seen by Provider: 07/25/18 12:02 History Source: Patient Exam Limitations: No Limitations - History of Present Illness Initial Comments: 07/25/18 13:00 73 yo f with h/o HTN, recent back surgery, here with c/o cough, sob and green phlegm. pt states she has been coughing for 3 weeks. denies f/c no n/v no cp. no leg swelling. she does have a h/o pe / dvt and is on xeralto, also has an IVC filter. no h/o copd, no other complaints. pt was seen at [facility], found to be hypoxic 89% on room air, sent to ED for evaluation. pcp is dr. Larry telephone operator chief Dr Pastrana surgeon Dr Verdugo Past History - Past Medical History Allergies/Adverse Reactions: Allergies Allergy/AdvReac Type Severity Reaction Status Date / Time levofloxacin [From Levaquin] Allergy Severe ANAPHYLAXIS Verified 07/25/18 11:49 methotrexate Allergy Severe Swelling Verified 07/25/18 11:49 Penicillins Allergy Mild Rash Verified 07/25/18 11:49 bumetanide [From Bumex] Allergy Rash Verified 07/25/18 11:49 piperacillin sodium AdvReac Mild Itching Verified 07/25/18 11:49 [From Zosyn] tazobactam sodium AdvReac Mild Itching Verified 07/25/18 11:49 [From Zosyn] Home Medications: Ambulatory Orders Gabapentin 300 mg PO BID 03/04/14 Oxycodone HCl/Acetaminophen [Percocet 10-325 mg Tablet] 1 - 2 tab PO Q6H PRN Insulin Lispro Protamin/Lispro [Humalog Mix 75-25 Kwikpen] 22 unit SQ BID Multivitamins [Multivit ([facility] Formulary)] 1 tab PO DAILY 03/17/16 Zolpidem Tartrate [Ambien] 10 mg PO HS PRN 06/01/17 Docusate Sodium [Colace -] 100 mg PO BID PRN #0 cap 06/03/17 Lisinopril 5 mg PO DAILY 06/16/18 Rivaroxaban [Xarelto -] 20 mg PO DAILY 06/22/18 Carvedilol [Coreg -] 6.25 mg PO BID 30 Days #60 tablet 07/17/18 Torsemide [Demadex -] 50 mg PO DAILY 30 Days #30 tablet 07/17/18 Anemia: No Asthma: No Cancer: No Cardiac Disorders: Yes CVA: No COPD: No CHF: Yes DVT: Yes Dementia: No Diabetes: Yes GI Disorders: No Disorders: No HTN: Yes Hypercholesterolemia: Yes Liver Disease: No Seizures: No Thyroid Disease: No - Surgical History Abdominal Surgery: Yes (GASTRIC BANDING) Appendectomy: No Cardiac Surgery: No Cholecystectomy: Yes Lung Surgery: No Neurologic Surgery: Yes (4 BACK FUSIONS) Orthopedic Surgery: Yes (TKR RT 2004; SHOULDER SX RT, L. KNEE SURGERY-2012,, Rt hip Sx 10/2013 [facility]) - Immunization History Immunization Up to Date: Yes - Suicide/Smoking/Psychosocial Hx Smoking Status: No Smoking History: Never smoked Have you smoked in the past 12 months: No Number of Cigarettes Smoked Daily: 0 If you are a former smoker, when did you quit?: 40 YRS Information on smoking cessation initiated: No Hx Alcohol Use: No Drug/Substance Use Hx: No Substance Use Type: None Hx Substance Use Treatment: No Review of Systems - Review of Systems Constitutional: No: Diaphoresis, Fever HEENTM: No: Blurred Vision Respiratory: Yes: Cough, Shortness of Breath, Wheezing, Productive cough Cardiac (ROS): No: Chest Pain, Edema, Irregular Heart Rate : No: Burning, Dysuria Musculoskeletal: No: Back Pain, Gout, Joint Pain Integumentary: No: Bruising, Change in Color All Other Systems: Reviewed and Negative *Physical Exam - Vital Signs Last Vital Signs Temp Pulse Resp BP Pulse Ox 97.8 F 82 20 105/88 95 07/25/18 11:44 07/25/18 11:44 07/25/18 11:44 07/25/18 11:44 07/25/18 11:54 - Physical Exam Comments: 07/25/18 13:02 awake alert lungs with crackles bilat bases, brochial sounds. normal effort. heart rrr no mrg abd soft nt nd. ext wwp. no edema. no calf tenderness. Moderate Sedation - Procedure Monitoring Vital Signs: Procedure Monitoring Vital Signs Temperature 97.8 F 07/25/18 11:44 Pulse Rate 82 07/25/18 11:44 Respiratory Rate 20 07/25/18 11:44 Blood Pressure 105/88 07/25/18 11:44 O2 Sat by Pulse Oximetry (%) 95 07/25/18 11:54 Heart Score/ECG Review #1 ECG reviewed & interpreted by me at: 11:55 General ECG Interpretation: Sinus Rhythm, Normal Rate, Normal Intervals, No acute ischemic changes Compared to previous ECG there are: Other (occas pvc's) ED Treatment Course - LABORATORY CBC & Chemistry Diagram: 07/25/18 12:14 07/25/18 12:14 - RADIOLOGY Radiology Studies Ordered: Category Date Time Status CXRPORT [CHEST X-RAY PORTABLE*] [RAD] Stat Radiology 07/25/18 12:14 Ordered Medical Decision Making - Medical Decision Making 07/25/18 13:03 differential: pneumonia, effusion, pe ( although filter and on xeralta ) *DC/Admit/Observation/Transfer Diagnosis at time of Disposition: Pneumonia, CHF (congestive heart failure) - Discharge Dispostion Decision to Admit order: Yes - Referrals Referrals: Beryl Pnadey MD [Primary Care Provider] - - Patient Instructions - Post Discharge Activity
[2018-07-25] MEDS ORDERED: ALBUTEROL SO4 2.5/IPRATROPIUM 0.5 INH SOL 3 ML VIAL.NEB. NEB ONE ×2 (13:09→13:11)
[2018-07-25 13:16] LABS: BASO % 0.7 % (0-2.0); EOS % 2.8 % (0-4.5); HEMATOCRIT 35.1 % (32.4-45.2); HEMOGLOBIN 11.8 GM/dL (10.7-15.3); MCH 29.3 pg (25.7-33.7); MCHC 33.7 g/dl (32.0-36.0); MEAN PLT VOLUME 7.9 fl (7.5-11.1); MONO % 10.5 % (3.8-10.2); PLATELET COUNT 349 K/MM3 (134-434); RBC 4.03 M/mm3 (3.60-5.2); RDW 15.1 % (11.6-15.6); WHITE BLOOD COUNT 8.7 K/mm3 (4.0-10.0)
[2018-07-25 13:28] LABS: INR 2.13 (0.83-1.09); PROTHROMBIN TIME (PATIENT) 25.3 SEC (9.7-13.0)
[2018-07-25 13:31] LABS: ACTIVATED PTT 32.6 SECONDS (25.2-36.5)
[2018-07-25 13:43] LABS: ALBUMIN 2.7 g/dl (3.4-5.0); ALK PHOS 149 U/L (45-117); ANION GAP 9 MMOL/L (8-16); BILIRUBIN,TOTAL 0.6 mg/dL (0.2-1); BLOOD UREA NITROGEN 15 mg/dL (7-18); CALCIUM 8.1 mg/dL (8.5-10.1); CHLORIDE 101 mmol/L (98-107); CO2 27 mmol/L (21-32); CREATININE 0.9 mg/dL (0.55-1.3); GLUCOSE,RANDOM 212 mg/dL (74-106); N-TERMINAL BNP 3407.6 pg/ml (5-125); POTASSIUM 4.2 mmol/L (3.5-5.1); SGOT/AST 22 U/L (15-37); SGPT/ALT 13 U/L (13-61); SODIUM 136 mmol/L (136-145); TOT PROT 6.5 g/dl (6.4-8.2)
--- NOTE | 2018-07-25 14:25 | EKG ---
Test Reason : Blood Pressure : / mmHG Vent. Rate : 079 BPM Atrial Rate : 079 BPM P-R Int : 178 ms QRS Dur : 084 ms QT Int : 454 ms P-R-T Axes : 053 074 114 degrees QTc Int : 520 ms POOR DATA QUALITY, INTERPRETATION MAY BE ADVERSELY AFFECTED SINUS RHYTHM WITH FREQUENT PREMATURE VENTRICULAR COMPLEXES ANTERIOR INFARCT , AGE UNDETERMINED ABNORMAL ECG WHEN COMPARED WITH ECG OF 16-JUL-2018 09:24, PREMATURE SUPRAVENTRICULAR COMPLEXES ARE NO LONGER PRESENT T WAVE INVERSION LESS EVIDENT IN ANTERIOR LEADS Confirmed by MD NIURKA, MENA ([id number]) on 07/25/2018 2:25:34 PM Referred By: Confirmed By:MENA BAH MD
[2018-07-25] MEDS ORDERED: AZTREONAM 1 GM in DEXTROSE 5%-WATER - 50 ML IVPB ONE (14:39)
[2018-07-25] MEDS ORDERED: VANCOMYCIN 1 GRAM (PRE-DOCKED) 1,000 MG/250 ML BAG IVPB ONE ×2 (14:39→14:44)
[2018-07-25] MEDS ORDERED: FUROSEMIDE 40 MG/4 ML INJECTABLE VIAL IVPUSH ONE (14:58)
[2018-07-25] MEDS ORDERED: FUROSEMIDE 40 MG/4 ML INJECTABLE VIAL ONE (15:24)
[2018-07-25] MEDS ORDERED: DOCUSATE SODIUM 100 MG CAPSULE (FP) PO PRN (16:22)
--- NOTE | 2018-07-25 16:29 | HP ---
CHIEF COMPLAINT: SOB X 2-3 days PCP: Dr. Larry HISTORY OF PRESENT ILLNESS: 73 y/o F with h/o HTN, NIDDM, CHFpEF (06/19/18 EF ~50%), intractable lower back pain s/p L4-L5 laminectomy, L2-S1 seroma s/p drainage, 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 As per pt, over the last three weeks, she has had SOB on exertion as well as cough productive of green phlegm. Was mildly alleviated with Robitussin. States that her sx worsened acutely over the last 2-3 days, thus she contacted Dr. Pastrana, who recommended that she come to the ED. Pt was also seen by urgent care today and recommended ED evaluation after she was hypoxic to the high 80's. At baseline, she does not use 02 and ambulates using a walker. At this time, denies SPARROW, fever, chills, chest pain or pressure, or changes in urinary or bowel function. No recent sick contacts. ER course was notable for: (1) Duonebx1 (2) azactam, vanco (3) lasix 40mg IVP x1 Recent Travel: denies PAST MEDICAL HISTORY: HTN, NIDDM, CHFpEF (06/19/18 EF ~50%), intractable lower back pain s/p L4-L5 laminectomy, L2-S1 seroma s/p drainage, PE/DVT (10 yrs prior ; with IVC filter, on xarelto) PAST SURGICAL HISTORY: lap jenifer, hysterectomy, multiple spine surgeries, gastric banding, knee replacement, multiple hip replacement sx Social History: lives at home with family. ambulates using a walker Smoking: denies Alcohol: denies Drugs: denies Family History: non-contributory Allergies levofloxacin [From Levaquin] Allergy (Severe, Verified 07/25/18 11:49) ANAPHYLAXIS methotrexate Allergy (Severe, Verified 07/25/18 11:49) Swelling BLISTERS; ALSO ALLERGY TO PCN MANY YRS AGO Penicillins Allergy (Mild, Verified 07/25/18 11:49) Rash bumetanide [From Bumex] Allergy (Verified 07/25/18 11:49) Rash piperacillin sodium [From Zosyn] Adverse Reaction (Mild, Verified 07/25/18 11:49 ) Itching tazobactam sodium [From Zosyn] Adverse Reaction (Mild, Verified 07/25/18 11:49) Itching HOME MEDICATIONS: Home Medications Medication Instructions Recorded Gabapentin 300 mg PO BID 03/04/14 Oxycodone HCl/Acetaminophen 1 - 2 tab PO Q6H PRN 03/04/14 [Percocet 10-325 mg Tablet] Insulin Lispro Protamin/Lispro 22 unit SQ BID 12/15/15 [Humalog Mix 75-25 Kwikpen] Multivitamins [Multivit ([facility] 1 tab PO DAILY 03/17/16 Formulary)] Zolpidem Tartrate [Ambien] 10 mg PO HS PRN 06/01/17 Docusate Sodium [Colace -] 100 mg PO BID PRN #0 cap 06/03/17 Lisinopril 5 mg PO DAILY 06/16/18 Rivaroxaban [Xarelto -] 20 mg PO DAILY 06/22/18 Carvedilol [Coreg -] 6.25 mg PO BID 30 Days #60 tablet 07/17/18 Torsemide [Demadex -] 50 mg PO DAILY 30 Days #30 tablet 07/17/18 REVIEW OF SYSTEMS CONSTITUTIONAL: Absent: fever, chills, diaphoresis, generalized weakness, malaise, loss of appetite, weight change HEENT: Absent: rhinorrhea, nasal congestion, throat pain, throat swelling, difficulty swallowing, mouth swelling, ear pain, eye pain, visual changes CARDIOVASCULAR: Absent: chest pain, syncope, palpitations, irregular heart rate, lightheadedness , peripheral edema RESPIRATORY: Absent: cough, shortness of breath, dyspnea with exertion, orthopnea, wheezing, stridor, hemoptysis GASTROINTESTINAL: Absent: abdominal pain, abdominal distension, nausea, vomiting, diarrhea, constipation, melena, hematochezia GENITOURINARY: Absent: dysuria, frequency, urgency, hesitancy, hematuria, flank pain, genital pain MUSCULOSKELETAL: Absent: myalgia, arthralgia, joint swelling, back pain, neck pain SKIN: Absent: rash, itching, pallor HEMATOLOGIC/IMMUNOLOGIC: Absent: easy bleeding, easy bruising, lymphadenopathy, frequent infections ENDOCRINE: Absent: unexplained weight gain, unexplained weight loss, heat intolerance, cold intolerance NEUROLOGIC: Absent: headache, focal weakness or paresthesias, dizziness, unsteady gait, seizure, mental status changes, bladder or bowel incontinence PSYCHIATRIC: Absent: anxiety, depression, suicidal or homicidal ideation, hallucinations. PHYSICAL EXAMINATION Vital Signs 07/25/18 07/25/18 11:54 14:49 Temperature 98.2 F Pulse Rate Pulse Rate [ 80 Right Radial] Respiratory 20 Rate Blood Pressure Blood Pressure 110/76 [Left Arm] O2 Sat by Pulse 95 99 Oximetry (%) GENERAL: Lying flat. Awake, alert, and fully oriented, in no acute distress. HEAD: Normal with no signs of trauma. EYES: Pupils equal, round and reactive to light, extraocular movements intact, sclera anicteric, conjunctiva clear EARS, NOSE, THROAT: Ears normal, nares patent, oropharynx clear without exudates. Dry MM NECK: Normal range of motion, supple LUNGS: + crackles at bases. without rhonchi HEART: Regular rate and rhythm, normal S1 and S2 without murmur, rub or gallop. ABDOMEN: Soft, obese, nontender, not distended, normoactive bowel sounds, no guarding LOWER EXTREMITIES: 2+ pt pulses. 1+ pitting edema b/l NEUROLOGICAL: Cranial nerves II-XII intact. 5/5 motor strength upper and lower extremities. PSYCHIATRIC: Cooperative. Good eye contact. Appropriate mood and affect. SKIN: Warm, dry Laboratory Results 07/25/18 07/25/18 07/25/18 12:14 12:14 14:15 WBC 8.7 Hgb 11.8 Hct 35.1 Plt Count 349 D BUN 15 Creatinine 0.9 Lactic Acid 1.5 AST 22 ALT 13 B-Natriuretic Peptide 3407.6 H 07/25/18 14:40 Influenza A (Rapid) Negative Influenza B (Rapid) Negative EKG: with PVC's; qtc less likely prolonged - may be skewed from PVC's. ASSESSMENT/PLAN: 73 y/o F with h/o HTN, NIDDM, CHFpEF (06/19/18 EF ~50%), intractable lower back pain s/p L4-L5 laminectomy, L2-S1 seroma s/p drainage, 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 #Fluid overload CHF exacerbation vs. HCAP -with pitting edema and crackles, however resp status improving with lasix 40mg IVP x [address] chest w/o contrast whether from fluid overload or PNA -recently d/c from [facility]; will tx for HCAP and likely infiltrate on R. azactam 2g IVPB x 1, doxy 100mg IVPB BID for atypical coverage. will consult ID for further abx recs -strict I/O, Na controlled 2g, daily wts -lasix 40mg IVP BID -f/u urine Legionella Ag, blood cx, ucx, Mycoplasma IgM,IgG -tele monitoring, cardio consult #HTN- controlled -hold lisinopril with soft BP -continue coreg #NIDDM -levemir 10U SQ BID -ISS ACHS -BGM #s/p L4-L5 laminectomy -PT consult -continue neurontin -roxicodone 10 q6h PRN #hx PE/DVT. has IVC filter -continue xarelto #F/E/N with vol overload, avoid fluids continue to follow lytes. rosio Mg, phosph as diuresis sodium controlled diet 2g #PPX DVT: xarelto #Dispo tele monitoring Visit type - Emergency Visit Emergency Visit: Yes ED Registration Date: 07/25/18 Care time: The patient presented to the Emergency Department on the above date and was hospitalized for further evaluation of their emergent condition. - New Patient This patient is new to me today: Yes Date on this admission: 07/25/18 - Critical Care Critical Care patient: No
--- NOTE | 2018-07-25 16:29 | PN ---
Teaching Attending Note Name of Resident: Loreta Iverson ATTENDING PHYSICIAN STATEMENT I saw and evaluated the patient. I reviewed the resident's note and discussed the case with the resident. I agree with the resident's findings and plan as documented with exceptions below. SUBJECTIVE: 73 yof with PMHx of Non ischemic CM, recent Echo with preserved EF 50%, HTN, HLD , morbid obesity, IDDM, h/o DVT/PE s/p IVC filter on xarelto, recent 4-L5 laminectomy 06/19 readmitted with worsening back pain, found with seroma s/p IR guided drainage x 2, s/p Left SI joint injection last week, comes with progressive cough, greenish sputum, shortness of breath over last week to 10 days. No fevers, chills, sick contacts, diarrhea, weight gain (has not checked her weight), PND/orthopnea, worsening leg swelling, diet or medication compliance, chest pain or pressure, arm/jaw pain, new or worsening back pain, abdominal or urinary symptoms. reports compliance with torsemide 50 mg daily. Given progressive symptoms today , called Dr. Pastrana's office and was advised to come to ED. Currently feels better after receiving treatment in the ED, was to urinate. 12 point ROS done, as above. OBJECTIVE: Vital Signs Period Temp Pulse Resp BP Sys/Marcelo Pulse Ox Last 24 Hr 97.8 F-98.2 F 80-82 20-20 105-110/76-88 95-99 Intake & Output 07/22/18 07/23/18 07/24/18 07/25/18 23:59 23:59 23:59 23:59 Weight 210 lb GENERAL: Awake, alert, and fully oriented, in no acute distress, able to talk in full sentences. HEAD: Normal with no signs of trauma. EYES: Pupils equal, round and reactive to light, extraocular movements intact, sclera anicteric, conjunctiva clear. No lid lag. EARS, NOSE, THROAT: Ears normal, nares patent, oropharynx clear without exudates. Moist mucous membranes. NECK: Unable to visualize JVD, limited given body habitus LUNGS: bibasilar rales R>L, occasional rhonchi, no wheezing, positive air entry HEART: S1S2 irregular ABDOMEN: Soft, nontender, not distended, normoactive bowel sounds, no guarding, no rebound, no masses. No hepatomegaly or splenomegaly. MUSCULOSKELETAL: Normal range of motion at all joints. No bony deformities or tenderness. No CVA tenderness. UPPER EXTREMITIES: 2+ pulses, warm, well-perfused. No cyanosis. No clubbing. No peripheral edema. LOWER EXTREMITIES: 2+ pulses, warm, well-perfused. No calf tenderness. 1+ peripheral pitting edema NEUROLOGICAL: Cranial nerves II-XII intact. Normal speech. Gait not observed MUSCULOSKELETAL: no spinal tenderness noted, moving lower extremities freely, sensation intact to light touch PSYCHIATRIC: Cooperative. Good eye contact. Appropriate mood and affect. SKIN: Warm, dry, normal turgor, no rashes or lesions noted, normal capillary refill. Home Medications Medication Instructions Recorded Gabapentin 300 mg PO BID 03/04/14 Oxycodone HCl/Acetaminophen 1 - 2 tab PO Q6H PRN 03/04/14 [Percocet 10-325 mg Tablet] Insulin Lispro Protamin/Lispro 22 unit SQ BID 12/15/15 [Humalog Mix 75-25 Kwikpen] Multivitamins [Multivit ([facility] 1 tab PO DAILY 03/17/16 Formulary)] Zolpidem Tartrate [Ambien] 10 mg PO HS PRN 06/01/17 Docusate Sodium [Colace -] 100 mg PO BID PRN #0 cap 06/03/17 Lisinopril 5 mg PO DAILY 06/16/18 Rivaroxaban [Xarelto -] 20 mg PO DAILY 06/22/18 Carvedilol [Coreg -] 6.25 mg PO BID 30 Days #60 tablet 07/17/18 Torsemide [Demadex -] 50 mg PO DAILY 30 Days #30 tablet 07/17/18 Active Medications Furosemide (Lasix Injection -) 40 mg IVPUSH BID@0600,1400 [facility] Laboratory Results - last 24 hr 07/25/18 07/25/18 07/25/18 12:14 12:14 12:14 WBC 8.7 RBC 4.03 Hgb 11.8 Hct 35.1 MCV 87.0 MCH 29.3 MCHC 33.7 RDW 15.1 Plt Count 349 D MPV 7.9 Absolute Neuts (auto) 6.1 Neutrophils % 70.0 D Lymphocytes % 16.0 D Monocytes % 10.5 H Eosinophils % 2.8 Basophils % 0.7 Nucleated RBC % 0 PT with INR 25.30 H INR 2.13 H PTT (Actin FS) 32.6 Sodium 136 Potassium 4.2 Chloride 101 Carbon Dioxide 27 Anion Gap 9 BUN 15 Creatinine 0.9 Creat Clearance w eGFR > 60 Random Glucose 212 H Lactic Acid Calcium 8.1 L Total Bilirubin 0.6 AST 22 ALT 13 Alkaline Phosphatase 149 H Creatine Kinase 79 Troponin I < 0.02 B-Natriuretic Peptide 3407.6 H Total Protein 6.5 Albumin 2.7 L Influenza A (Rapid) Influenza B (Rapid) 07/25/18 07/25/18 14:15 14:40 WBC RBC Hgb Hct MCV MCH MCHC RDW Plt Count MPV Absolute Neuts (auto) Neutrophils % Lymphocytes % Monocytes % Eosinophils % Basophils % Nucleated RBC % PT with INR INR PTT (Actin FS) Sodium Potassium Chloride Carbon Dioxide Anion Gap BUN Creatinine Creat Clearance w eGFR Random Glucose Lactic Acid 1.5 Calcium Total Bilirubin AST ALT Alkaline Phosphatase Creatine Kinase Troponin I B-Natriuretic Peptide Total Protein Albumin Influenza A (Rapid) Negative Influenza B (Rapid) Negative CXR hilar congestion, ?Hilar infiltrate EKG NSR, PVCs, calculated QTC around 440 (limited visualization of T waves making QT calculation limited) ASSESSMENT AND PLAN: 73 yof with PMHx of Non ischemic CM, recent Echo with preserved EF 50%, HTN, HLD , morbid obesity, h/o DVT/PE s/p IVC filter on xarelto recent L4-L5 laminectomy 06/19 readmitted with worsening back pain, found with seroma s/p IR guided drainage x 2, s/p Left SI joint injection last week, admitted with acute systolic HF exacerbation +/- Acute bronchitis/RLL HCAP -Acute on chronic systolic Heart failure exacerbation -Suspected Acute bronchitis +/- Right hilar HCAP -Non ischemic CM, with preserved EF 50% -L4-L5 laminectomy 06/19 with post operative seroma s/p IR guided drainage x 2 -Chronic low back pain s/p Left SI injection last week -IDDM -HTN -HLD -Morbid obesity -?prolonged QTc (corrected QT around 440) Plan: lasix 40 mg IV BID, strict I/Os, daily weights. Cardiology input Dr. Pastrana ( Case discussed) Aztreonam, add doxycycline. s/p Vanco in ED, hold off on additional dosing. CT chest non contrast. Urine PNA studies. Follow up blood cx. Send sputum cx as available. Influenza pCR neg. ID input Dr. Jain Hold lisinopril for now given soft BP and iV diuresis. Resume as tolerated. Continue coreg/xarelto. Levemir 10 units BID, ISS, diabetic diet. titrate up as tolerated. Continue percocet/gabapentin. Ongoing PT as improves medically. DVTPPx on xarelto Dispo pending resolution of medical issues. Anticipate home d/c with services (patient adamantly declined SNF on recent admit) Plan discussed with patient in detail, all questions answered. Care co-ordinated with cardiology, ED and nursing. total admit time 65 min.
[2018-07-25] MEDS ORDERED: DOXYCYCLINE INJECTION 100 MG in DEXTROSE 5%-WATER - 100 ML IVPB SCH (16:30)
[2018-07-25 16:46] LABS: URINE APPEARANCE CLEAR; URINE BILIRUBIN NEGATIVE (<2.0 mg/dL); URINE COLOR LTYELLOW; URINE GLUCOSE (UA) 1+ (NEGATIVE); URINE KETONE NEGATIVE (NEGATIVE); URINE LEUK ESTERASE NEGATIVE (NEGATIVE); URINE NITRITE NEGATIVE (NEGATIVE); URINE PROTEIN NEGATIVE (NEGATIVE); URINE UROBILINOGEN NEGATIVE mg/dL (0.2-1.0)
[2018-07-25] MEDS ORDERED: INSULIN (NOVOLOG) ASPART 100 UNITS/ML 10ML VIAL ONE (17:47)
[2018-07-25] MEDS ORDERED: oxyCODONE HCL 5 MG TABLET ONE (18:03)
[2018-07-25] MEDS: INSULIN SLIDING SCALE (NOVOLOG) 1 VIAL SQ SCH ×2 (18:11→21:33)
[2018-07-25] MEDS: oxyCODONE HCL 5 MG TABLET PO PRN (18:11)
[2018-07-25] MEDS: GABAPENTIN 300 MG CAPSULE (FP) PO SCH (21:32)
[2018-07-25] MEDS: INSULIN (LEVEMIR) 100 UNITS/ML UNITS SQ SCH (21:32)
[2018-07-25] MEDS: CARVEDILOL 6.25 MG TABLET (FP) PO SCH (21:32)
[2018-07-25 22:00] LABS: MAGNESIUM 1.8 mg/dL (1.8-2.4); PHOSPHOROUS 3.9 mg/dL (2.5-4.9)
[2018-07-25] MEDS ORDERED: CARVEDILOL 6.25 MG TABLET (FP) PO SCH (22:00)
[2018-07-25] MEDS ORDERED: AZTREONAM 2 GM in DEXTROSE 5%-WATER 100 ML IVPB ONE (23:00)
[2018-07-25] MEDS: ZOLPIDEM TARTRATE 5 MG TABLET PO PRN (23:05)
[2018-07-26] MEDS: FUROSEMIDE 40 MG/4 ML INJECTABLE VIAL IVPUSH SCH ×2 (05:44→14:15)
[2018-07-26] MEDS: INSULIN (LEVEMIR) 100 UNITS/ML UNITS SQ SCH ×2 (06:09→21:40)
[2018-07-26] MEDS: INSULIN SLIDING SCALE (NOVOLOG) 1 VIAL SQ SCH ×4 (06:09→21:41)
[2018-07-26 07:27] LABS: EOS % 4.3 % (0-4.5); HEMATOCRIT 30.8 % (32.4-45.2); HEMOGLOBIN 10.6 GM/dL (10.7-15.3); LYMPH % 20.5 % (8-40); MCH 29.8 pg (25.7-33.7); MCHC 34.5 g/dl (32.0-36.0); MEAN CELL VOLUME 86.3 fl (80-96); MEAN PLT VOLUME 7.7 fl (7.5-11.1); MONO % 14.4 % (3.8-10.2); NEUT % 59.8 % (42.8-82.8); PLATELET COUNT 331 K/MM3 (134-434); RBC 3.57 M/mm3 (3.60-5.2); RDW 15.3 % (11.6-15.6)
[2018-07-26 07:56] LABS: ANION GAP 9 MMOL/L (8-16); BLOOD UREA NITROGEN 14 mg/dL (7-18); CALCIUM 7.9 mg/dL (8.5-10.1); CHLORIDE 98 mmol/L (98-107); CO2 28 mmol/L (21-32); CREATININE 0.8 mg/dL (0.55-1.3); GLUCOSE,RANDOM 190 mg/dL (74-106); MAGNESIUM 1.8 mg/dL (1.8-2.4); PHOSPHOROUS 3.6 mg/dL (2.5-4.9); POTASSIUM 3.5 mmol/L (3.5-5.1); SODIUM 134 mmol/L (136-145)
[2018-07-26] MEDS: GABAPENTIN 300 MG CAPSULE (FP) PO SCH ×3 (08:17→21:39)
[2018-07-26] MEDS: CARVEDILOL 6.25 MG TABLET (FP) PO SCH ×2 (08:17→10:33)
[2018-07-26] MEDS: MULTIVITAMINS (DAILY MVI) TABLET (FP) PO SCH ×2 (08:17→10:33)
[2018-07-26] MEDS: ACETAMINOPHEN 325 MG TABLET (FP) PO PRN ×3 (09:01→23:35)
[2018-07-26] MEDS: oxyCODONE HCL 5 MG TABLET PO PRN ×3 (09:01→23:34)
[2018-07-26] MEDS ORDERED: METOPROLOL TARTRATE 5 MG/5 ML VIAL IVPUSH ONE (09:07)
[2018-07-26] MEDS: DOXYCYCLINE HYCLATE 100 MG CAPSULE PO SCH ×2 (09:25→10:33)
--- NOTE | 2018-07-26 09:42 | CON.CARD ---
Cardiology Consult (text) - Consultation Consultation Note: Consult Consult Specialty:: cardio - History of Present Illness Chief Complaint: sob x 2-3 days 73F h/o HTN, DM, CHF, low back pain s/p laminectomy, PE/DVT s/p IVC filter, on xarelto p/w dyspnea for 2-3 days. Had shortness of breath for the last three weeks as well as cough, but got worse in last couple of days. Sees Dr. Pastrana for cardio, recommended she go to the ER, went to urgent care first and was hypoxic in high 80s. In the ER she was given abx, nebs, lasix 40 mg IV x 1. PMH: HTN DM (not controlled) NICHOLE (not treated) nonisch CMP/syst chf h/o VTEs--on AC - Past Medical History [employer]: Yes: Syncope Cardio/Vascular: Yes: CHF, Deep Vein Thrombosis, HTN Pulmonary: Yes: Pulmonary Embolus ...: No Rheumatology: Yes: Rheumatoid Arthritis Endocrine: Yes: Diabetes Mellitus - Past Surgical History Past Surgical History: Yes: Cholecystectomy, Hysterectomy, Joint Replacement Additional Surgical History: Lumbar Fusion - Alcohol/Substance Use Hx Alcohol Use: No - Smoking History Smoking history: Former smoker Have you smoked in the past 12 months: No Aproximately how many cigarettes per day: 0 If you are a former smoker, when did you quit?: 40 YRS - Social History History of Recent Travel: No Home Medications - Allergies Allergies/Adverse Reactions: Allergies Allergy/AdvReac Type Severity Reaction Status Date / Time levofloxacin [From Levaquin] Allergy Severe ANAPHYLAXIS Verified 07/25/18 11:49 methotrexate Allergy Severe Swelling Verified 07/25/18 11:49 Penicillins Allergy Mild Rash Verified 07/25/18 11:49 doxycycline Allergy Unknown Verified 07/26/18 03:06 bumetanide [From Bumex] Allergy Rash Verified 07/25/18 11:49 piperacillin sodium AdvReac Mild Itching Verified 07/25/18 11:49 [From Zosyn] tazobactam sodium AdvReac Mild Itching Verified 07/25/18 11:49 [From Zosyn] - Home Medications Home Medications: Home Medications Medication Instructions Recorded Gabapentin 300 mg PO BID 03/04/14 Oxycodone HCl/Acetaminophen 1 - 2 tab PO Q6H PRN 07/28/14 [Percocet 10-325 mg Tablet] Insulin Lispro Protamin/Lispro 22 unit SQ BID 12/15/15 [Humalog Mix 75-25 Kwikpen] Multivitamins [Multivit ([facility] 1 tab PO DAILY 03/17/16 Formulary)] Zolpidem Tartrate [Ambien] 10 mg PO HS PRN 06/01/17 Docusate Sodium [Colace -] 100 mg PO BID PRN #0 cap 06/03/17 Lisinopril 5 mg PO DAILY 06/16/18 Rivaroxaban [Xarelto -] 20 mg PO DAILY 06/22/18 Carvedilol [Coreg -] 6.25 mg PO BID 30 Days #60 tablet 07/17/18 Torsemide [Demadex -] 50 mg PO DAILY 30 Days #30 tablet 07/17/18 Family Disease History - Family Disease History Family History: Denies (no known cmp) Review of Systems - Review of Systems Constitutional: denies: Chills, Fever Eyes: denies: Eye Pain HENT: denies: Nasal Congestion Neck: denies: Stiffness Cardiovascular: denies: Palpitations Respiratory: denies: Orthopnea, PND Gastrointestinal: denies: Diarrhea, Rectal Bleeding Genitourinary: denies: Burning, Hematuria Musculoskeletal: denies: Muscle Pain Integumentary: denies: Rash Neurological: denies: Numbness, Seizure, Syncope Endocrine: denies: Excessive Sweating Hematology/Lymphatic: denies: Excessive Bleeding Vital Signs: Vital Signs Period Temp Pulse Resp BP Sys/Marcelo Pulse Ox Last 24 Hr 97.5 F-98.9 F 78-138 18-20 105-120/45-88 95-99 Constitutional: Yes: Well Nourished, No Distress Eyes: No: Sclera Icterus HENT: No: Nasal Congestion Neck: No: Decreased ROM Respiratory: Yes: +rales at bases No: Accessory Muscle Use, Wheezes Gastrointestinal: Yes: Normal Bowel Sounds. No: Distention, Hepatomegaly, Palpable Mass, Tenderness Cardiovascular: Yes: Regular Rate and Rhythm JVD: No Carotid Bruit: No PMI: Non-Displaced Heart Sounds: Yes: S1, S2. No: Gallop Murmur: No: Systolic Murmur, Diastolic Murmur Musculoskeletal: Yes: Other (No kyphosis) Extremities: No: Cold, Cyanosis Edema: No Peripheral Pulses: 2+ Left Carotid, 2+ Right Carotid, 2+ Left Doralis Pedis, 2+ Right Dorsalis Pedis Integumentary: No: Jaundice Neurological: Yes: Alert, Oriented (x3) Psychiatric: No: Agitated - Other Data Laboratory Last Values WBC 6.0 K/mm3 (4.0-10.0) 07/26/18 05:50 RBC 3.57 M/mm3 (3.60-5.2) L 07/26/18 05:50 Hgb 10.6 GM/dL (10.7-15.3) L 07/26/18 05:50 Hct 30.8 % (32.4-45.2) L 07/26/18 05:50 MCV 86.3 fl (80-96) 07/26/18 05:50 MCH 29.8 pg (25.7-33.7) 07/26/18 05:50 MCHC 34.5 g/dl (32.0-36.0) 07/26/18 05:50 RDW 15.3 % (11.6-15.6) 07/26/18 05:50 Plt Count 331 K/MM3 (134-434) 07/26/18 05:50 MPV 7.7 fl (7.5-11.1) 07/26/18 05:50 Absolute Neuts (auto) 3.6 K/mm3 (1.5-8.0) 07/26/18 05:50 Neutrophils % 59.8 % (42.8-82.8) 07/26/18 05:50 Lymphocytes % 20.5 % (8-40) D 07/26/18 05:50 Monocytes % 14.4 % (3.8-10.2) H 07/26/18 05:50 Eosinophils % 4.3 % (0-4.5) 07/26/18 05:50 Basophils % 1.0 % (0-2.0) 07/26/18 05:50 Nucleated RBC % 0 % (0-0) 07/26/18 05:50 PT with INR 25.30 SEC (9.7-13.0) H 07/25/18 12:14 INR 2.13 (0.83-1.09) H 07/25/18 12:14 PTT (Actin FS) 32.6 SECONDS (25.2-36.5) 07/25/18 12:14 Sodium 134 mmol/L (136-145) L 07/26/18 05:50 Potassium 3.5 mmol/L (3.5-5.1) 07/26/18 05:50 Chloride 98 mmol/L (98-107) 07/26/18 05:50 Carbon Dioxide 28 mmol/L (21-32) 07/26/18 05:50 Anion Gap 9 MMOL/L (8-16) 07/26/18 05:50 BUN 14 mg/dL (7-18) 07/26/18 05:50 Creatinine 0.8 mg/dL (0.55-1.3) 07/26/18 05:50 Creat Clearance w eGFR > 60 (>60) 07/26/18 05:50 POC Glucometer 201 UNITS (80-120) 07/26/18 05:44 Random Glucose 190 mg/dL (74-106) H 07/26/18 05:50 Lactic Acid 1.5 mmol/L (0.4-2.0) 07/25/18 14:15 Calcium 7.9 mg/dL (8.5-10.1) L 07/26/18 05:50 Phosphorus 3.6 mg/dL (2.5-4.9) 07/26/18 05:50 Magnesium 1.8 mg/dL (1.8-2.4) 07/26/18 05:50 Total Bilirubin 0.6 mg/dL (0.2-1) 07/25/18 12:14 AST 22 U/L (15-37) 07/25/18 12:14 ALT 13 U/L (13-61) 07/25/18 12:14 Alkaline Phosphatase 149 U/L (45-117) H 07/25/18 12:14 Creatine Kinase 79 IU/L (26-192) 07/25/18 12:14 Troponin I < 0.02 ng/ml (0.00-0.05) 07/25/18 21:00 B-Natriuretic Peptide 3407.6 pg/ml (5-125) H 07/25/18 12:14 Total Protein 6.5 g/dl (6.4-8.2) 07/25/18 12:14 Albumin 2.7 g/dl (3.4-5.0) L 07/25/18 12:14 Urine Color Ltyellow 07/25/18 16:30 Urine Appearance Clear 07/25/18 16:30 Urine pH 5.0 (5.0-8.0) 07/25/18 16:30 Ur Specific [place] 1.011 (1.010-1.035) 07/25/18 16:30 Urine Protein Negative (NEGATIVE) 07/25/18 16:30 Urine Glucose (UA) 1+ (NEGATIVE) H 07/25/18 16:30 Urine Ketones Negative (NEGATIVE) 07/25/18 16:30 Urine Blood Negative (NEGATIVE) 07/25/18 16:30 Urine Nitrite Negative (NEGATIVE) 07/25/18 16:30 Urine Bilirubin Negative (<2.0 mg/dL) 07/25/18 16:30 Urine Urobilinogen Negative mg/dL (0.2-1.0) 07/25/18 16:30 Ur Leukocyte Esterase Negative (NEGATIVE) 07/25/18 16:30 Influenza A (Rapid) Negative 07/25/18 14:40 Influenza B (Rapid) Negative 07/25/18 14:40 Assessment/Plan ECG 07/26 atrial fibrillation rate 138 CXR: possible R infiltrate CT chest: atelectasis with consolidation/airspace dz in lower lung olvera R>L as well as small neris pleural effusion, R >L c/w pneumonia echo here 06/2018: nl lv, rv tds, mild mr, nl rvsp echo here 06/01/17: nl lv, nl rv size, mild fernando, sev mr, mild tr, nl rvsp echo in office 05/09/2017: mild-mod lve, lvef 30-35%, global hk, nl rv size, mild dec rv fcn, mild lae, mod-sev mr mibi 05/2014: no ischemia, mildly reduced lvef cath 2005: normal cors tele: sinus tachy, afib with rates up to 150s a/p: 71 f hx multiple PEs/DVTs s/p ivc filter and on xarelto dm, hld, htn, sys chf, here with shortness of breath. Shortness of breath, acute on chronic systolic HF exacerbation, PNA -nonisch CMP dx'd 2014 (L/RHC 8moderately elevated wedge (25) and corresponding elevation in PAPs (50/25); NORMAL CORONARIES -severely reduced cardiac index on that RHC -more recent echo reporting improved lvef, ? varying appearances related to TDS images (Definity used in office 2017) - normal reported LV (and only mild MR), with no signs of pulm HTN on echo done 06/25 here. -seen by us 07/25 (here for refractory back pain req surgical intervention). was euvolemic/stable on torsemide 20 qd, carvedilol 25 bid, lisinopril 5 qd. -tolerate sbp > 90 here - holding lisinopril for low BPs, continue carvedilol for now - infiltrate and pleural effusions on imaging - on lasix 40 mg IV BID, continue, monitor Cr, lytes, daily standing weights - abx for PNA per hospitalist, ID Atrial fibrillation - new diagnosis - on xarelto for DVT/PE, continue - on carvedilol, increase dose to 12.5 mg BID HTN: - stable, cont lisinopril, coreg h/o VTEs (DVTs and PEs): -s/p IVC filter -on lifelong AC per prior plan (felt to be hypercoagulable by heme) - continue xarelto chronic L/S spine disease/pain: -s/p repeat spine surgery 06/2018
[2018-07-26] MEDS ORDERED: LISINOPRIL 5 MG TABLET (FP) PO SCH (10:00)
--- NOTE | 2018-07-26 10:20 | EKG ---
Test Reason : Blood Pressure : / mmHG Vent. Rate : 138 BPM Atrial Rate : 156 BPM P-R Int : 000 ms QRS Dur : 086 ms QT Int : 312 ms P-R-T Axes : 000 080 153 degrees QTc Int : 472 ms ATRIAL FIBRILLATION WITH RAPID VENTRICULAR RESPONSE NONSPECIFIC T WAVE ABNORMALITY ABNORMAL ECG WHEN COMPARED WITH ECG OF 25-JUL-2018 11:53, ATRIAL FIBRILLATION HAS REPLACED SINUS RHYTHM VENT. RATE HAS INCREASED BY 59 BPM NON-SPECIFIC CHANGE IN ST SEGMENT IN INFERIOR LEADS Confirmed by RENZO CHOU, LEONEL ([id number]) on 07/26/2018 10:19:58 AM Referred By: NATALIE VILLEGAS Confirmed By:LEONEL MULLER MD
--- NOTE | 2018-07-26 10:41 | CON.ID ---
Consult Consult Specialty:: infectious disease Referred by:: hospitalist Reason for Consultation:: pneumonia - History of Present Illness Chief Complaint: cough with green sputum History of Present Illness: 73 yo female s/p recent redo lumbar laminectomy 06/19 with postop seroma that required drainage, reports 2 weeks of cough worsening over last 2 days prior history of PE so she got worried and went to her doctor, was hypoxic and sent to ED admitted yesterday no hemoptysis no fever chest ct with bilateral effusions LLL infiltrate discharged 07/17 from the hospital - reports cough at that time given vanco/azactam in ed refused doxycycline due to allergy poor appetite no travel no sick contacts no history of afib no diarrhea no dysuria no vomiting no sick contacts UTD with influenza/pneumococcal vaccine had a staph infection of her left knee 10 years ago- was treated with keflex po for two years after completing iv antibiotics (dr nunez) also has taken bactrim as outpt unknown penicillin allergy-not even sure she is allergic levaquin throat closes doxycycline- unknown - 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 Cardio/Vascular: Yes: CHF, Deep Vein Thrombosis, HTN Pulmonary: Yes: Pulmonary Embolus ...: No Rheumatology: Yes: Rheumatoid Arthritis Endocrine: Yes: Diabetes Mellitus - Past Surgical History Past Surgical History: Yes: Bariatric Surgery (gastric band), Cholecystectomy, Hysterectomy, Joint Replacement (5 right hip replacements, 1 left hip replacement, bilateral TKR, left LTK with staph infection ), Laminectomy (back surgeries-reports 5, most rcent 06/19) - Alcohol/Substance Use Hx Alcohol Use: No - Smoking History Smoking history: Former smoker Have you smoked in the past 12 months: No Aproximately how many cigarettes per day: 0 If you are a former smoker, when did you quit?: 40 YRS - Social History Usual Living Arrangement: With Child ADL: Independent 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 Place of : [place] History of Recent Travel: No Home Medications - Allergies Allergies/Adverse Reactions: Allergies Allergy/AdvReac Type Severity Reaction Status Date / Time levofloxacin [From Levaquin] Allergy Severe ANAPHYLAXIS Verified 07/25/18 11:49 methotrexate Allergy Severe Swelling Verified 07/25/18 11:49 Penicillins Allergy Mild Rash Verified 07/25/18 11:49 doxycycline Allergy Unknown Verified 07/26/18 03:06 bumetanide [From Bumex] Allergy Rash Verified 07/25/18 11:49 piperacillin sodium AdvReac Mild Itching Verified 07/25/18 11:49 [From Zosyn] tazobactam sodium AdvReac Mild Itching Verified 07/25/18 11:49 [From Zosyn] - Home Medications Home Medications: Ambulatory Orders Gabapentin 300 mg PO BID 03/04/14 Oxycodone HCl/Acetaminophen [Percocet 10-325 mg Tablet] 1 - 2 tab PO Q6H PRN Insulin Lispro Protamin/Lispro [Humalog Mix 75-25 Kwikpen] 22 unit SQ BID Multivitamins [Multivit ([facility])] 1 tab PO DAILY 03/17/16 Zolpidem Tartrate [Ambien] 10 mg PO HS PRN 06/01/17 Docusate Sodium [Colace -] 100 mg PO BID PRN #0 cap 06/03/17 Lisinopril 5 mg PO DAILY 06/16/18 Rivaroxaban [Xarelto -] 20 mg PO DAILY 06/22/18 Carvedilol [Coreg -] 6.25 mg PO BID 30 Days #60 tablet 07/17/18 Torsemide [Demadex -] 50 mg PO DAILY 30 Days #30 tablet 07/17/18 Review of Systems - Review of Systems Constitutional: reports: No Symptoms. denies: Chills, Fever Eyes: reports: No Symptoms HENT: reports: Other (hoarse voice for 3 weeks). denies: Throat Pain Neck: reports: No Symptoms Cardiovascular: reports: No Symptoms. denies: Chest Pain Respiratory: reports: Cough, SOB Gastrointestinal: reports: No Symptoms Genitourinary: reports: No Symptoms Musculoskeletal: reports: Back Pain (unchanged, localized to left hip) Physical Exam Vital Signs: Vital Signs Temperature 98.6 F 07/26/18 06:00 Pulse Rate 138 H 07/26/18 09:28 Respiratory Rate 20 07/26/18 06:00 Blood Pressure 116/75 07/26/18 09:28 O2 Sat by Pulse Oximetry (%) 99 07/25/18 20:15 Constitutional: Yes: Well Nourished, No Distress, Calm Eyes: Yes: Conjunctiva Clear, EOM Intact HENT: No: Pharyngeal Erythema, Thrush Neck: Yes: Supple Cardiovascular: Yes: Regular Rate and Rhythm, Tachycardia, Pulse Irregular Respiratory: Yes: Regular, Diminished, Wheezes Gastrointestinal: Yes: Normal Bowel Sounds, Soft ...Rectal Exam: Yes: Deferred Renal/: No: Bladder Distention Extremities: Yes: WNL Edema: No Peripheral Pulses WNL: No Psychiatric: Yes: Alert, Oriented Labs: CBC, BMP 07/26/18 05:50 07/26/18 05:50 Microbiology 07/25/18 21:00 Serum Mycoplasma Antibody - Preliminary 07/25/18 21:00 Serum Mycoplasma Antibody - Preliminary cultures pending influenza negative Imaging - Results Chest X-ray: Report Reviewed, Image Reviewed Cat Scan: Report Reviewed, Image Reviewed Problem List - Problems (1) Pneumonia Code(s): J18.9 - PNEUMONIA, UNSPECIFIED ORGANISM Qualifiers: Laterality: right Lung location: lower lobe of lung (2) New onset a-fib Code(s): I48.91 - UNSPECIFIED ATRIAL FIBRILLATION (3) CHF (congestive heart failure) Code(s): I50.9 - HEART FAILURE, UNSPECIFIED (4) Postoperative seroma Code(s): AKH8053 - (5) Allergy to multiple antibiotics Code(s): Z88.1 - ALLERGY STATUS TO OTHER ANTIBIOTIC AGENTS STATUS Assessment/Plan probable HAP given multiple recent admissions received vanco/azactam in ed will switch to iv cefepime d/c doxycycline- she reports allergy obtain legionella antigen f/u cultures cold agglutinins new afib suspect a component of her sob is due to afib/chf cardiology to see postop seroma- management per her surgeon
[2018-07-26] MEDS ORDERED: dilTIAZem HCL 50 MG/10 ML - 10 ML VIAL IVPUSH ONE (11:01)
[2018-07-26] MEDS ORDERED: CARVEDILOL 6.25 MG TABLET (FP) PO ONE (11:02)
[2018-07-26] MEDS ORDERED: CEFEPIME HCL 1 GM VIAL (RESTRICTED TO ID) ONE ×2 (11:57→16:56)
[2018-07-26] MEDS ORDERED: DEXTROSE 5%-WATER 100 ML IVPB ONE ×2 (11:58→16:56)
[2018-07-26] MEDS: CEFEPIME 1 GM in DEXTROSE 5%-WATER 100 ML IVPB SCH ×2 (12:11→17:03)
--- NOTE | 2018-07-26 12:11 | PN ---
Teaching Attending Note Name of Resident: Jeffery Burrell ATTENDING PHYSICIAN STATEMENT I saw and evaluated the patient. I reviewed the resident's note and discussed the case with the resident. I agree with the resident's findings and plan as documented with exceptions below. SUBJECTIVE: patient seen and examined. reports dyspnea. Denies any chest pain, palpitations , or dizziness. ongoing chronic low back pain with no new worsening, leg pain or weakness. OBJECTIVE: Vital Signs Period Temp Pulse Resp BP Sys/Marcelo Pulse Ox Last 24 Hr 97.5 F-98.9 F 78-138 18-20 106-120/45-76 97-99 Intake & Output 07/23/18 07/24/18 07/25/18 07/26/18 23:59 23:59 23:59 23:59 Intake Total 50 550 Output Total 250 250 Balance -200 300 Weight 210 lb 214 lb 6 oz General: lying in bed, mildly tachypneia, audible wheezing, able to talk in full sentences Chest: bibasilar rales, R>L, positive air entry, scattered expiratory wheezing Abdomen;Soft, obese, NT Extremities: 1+ pitting pedal edema Home Medications Medication Instructions Recorded Gabapentin 300 mg PO BID 03/04/14 Oxycodone HCl/Acetaminophen 1 - 2 tab PO Q6H PRN 03/04/14 [Percocet 10-325 mg Tablet] Insulin Lispro Protamin/Lispro 22 unit SQ BID 12/15/15 [Humalog Mix 75-25 Kwikpen] Multivitamins [Multivit ([facility] 1 tab PO DAILY 03/17/16 Formulary)] Zolpidem Tartrate [Ambien] 10 mg PO HS PRN 06/01/17 Docusate Sodium [Colace -] 100 mg PO BID PRN #0 cap 06/03/17 Lisinopril 5 mg PO DAILY 06/16/18 Rivaroxaban [Xarelto -] 20 mg PO DAILY 06/22/18 Carvedilol [Coreg -] 6.25 mg PO BID 30 Days #60 tablet 07/17/18 Torsemide [Demadex -] 50 mg PO DAILY 30 Days #30 tablet 07/17/18 Active Medications Acetaminophen (Tylenol -) 650 mg PO Q6H PRN PRN Reason: PAIN LEVEL 4 - 6 Last Admin: 07/26/18 09:01 Dose: 650 mg Azithromycin (Zithromax -) 500 mg PO DAILY [facility] Stop: 08/01/18 10:01 Carvedilol (Coreg -) 12.5 mg PO BID [facility] Docusate Sodium (Colace -) 100 mg PO Q12H PRN PRN Reason: CONSTIPATION Furosemide (Lasix Injection -) 40 mg IVPUSH BID@0600,1400 [facility] Last Admin: 07/26/18 05:44 Dose: 40 mg Gabapentin (Neurontin -) 300 mg PO BID [facility] Last Admin: 07/26/18 10:33 Dose: Not Given Cefepime HCl 1 gm/ Dextrose 100 mls @ 200 mls/hr IVPB Q8H-IV LIAS; Protocol Insulin Aspart (Novolog Vial Sliding Scale -) 1 vial SQ ACHS [facility]; Protocol Last Admin: 07/26/18 06:09 Dose: 4 units Insulin Detemir (Levemir Vial) 10 units SQ BID@0700,2200 [facility] Last Admin: 07/26/18 06:09 Dose: 10 units Lisinopril (Prinivil) 5 mg PO DAILY [facility] Multivitamins/Minerals/Vitamin C (Tab-A-Vit -) 1 tab PO DAILY [facility] Last Admin: 07/26/18 10:33 Dose: Not Given Oxycodone HCl (Roxicodone -) 10 mg PO Q6H PRN PRN Reason: PAIN LEVEL 4 - 6 Last Admin: 07/26/18 09:01 Dose: 10 mg Rivaroxaban (Xarelto -) 20 mg PO DAILY@1800 [facility] Zolpidem Tartrate (Ambien -) 5 mg PO HS PRN PRN Reason: INSOMNIA Last Admin: 07/25/18 23:05 Dose: 5 mg Laboratory Results - last 24 hr 07/25/18 07/25/18 07/25/18 12:14 12:14 12:14 WBC 8.7 RBC 4.03 Hgb 11.8 Hct 35.1 MCV 87.0 MCH 29.3 MCHC 33.7 RDW 15.1 Plt Count 349 D MPV 7.9 Absolute Neuts (auto) 6.1 Neutrophils % 70.0 D Lymphocytes % 16.0 D Monocytes % 10.5 H Eosinophils % 2.8 Basophils % 0.7 Nucleated RBC % 0 PT with INR 25.30 H INR 2.13 H PTT (Actin FS) 32.6 Sodium 136 Potassium 4.2 Chloride 101 Carbon Dioxide 27 Anion Gap 9 BUN 15 Creatinine 0.9 Creat Clearance w eGFR > 60 POC Glucometer Random Glucose 212 H Lactic Acid Calcium 8.1 L Phosphorus Magnesium Total Bilirubin 0.6 AST 22 ALT 13 Alkaline Phosphatase 149 H Creatine Kinase 79 Troponin I < 0.02 B-Natriuretic Peptide 3407.6 H Total Protein 6.5 Albumin 2.7 L Urine Color Urine Appearance Urine pH Ur Specific [place] Urine Protein Urine Glucose (UA) Urine Ketones Urine Blood Urine Nitrite Urine Bilirubin Urine Urobilinogen Ur Leukocyte Esterase Influenza A (Rapid) Influenza B (Rapid) 07/25/18 07/25/18 07/25/18 14:15 14:40 16:30 WBC RBC Hgb Hct MCV MCH MCHC RDW Plt Count MPV Absolute Neuts (auto) Neutrophils % Lymphocytes % Monocytes % Eosinophils % Basophils % Nucleated RBC % PT with INR INR PTT (Actin FS) Sodium Potassium Chloride Carbon Dioxide Anion Gap BUN Creatinine Creat Clearance w eGFR POC Glucometer Random Glucose Lactic Acid 1.5 Calcium Phosphorus Magnesium Total Bilirubin AST ALT Alkaline Phosphatase Creatine Kinase Troponin I B-Natriuretic Peptide Total Protein Albumin Urine Color Ltyellow Urine Appearance Clear Urine pH 5.0 Ur Specific [place] 1.011 Urine Protein Negative Urine Glucose (UA) 1+ H Urine Ketones Negative Urine Blood Negative Urine Nitrite Negative Urine Bilirubin Negative Urine Urobilinogen Negative Ur Leukocyte Esterase Negative Influenza A (Rapid) Negative Influenza B (Rapid) Negative 07/25/18 07/25/18 07/25/18 16:45 21:00 21:03 WBC RBC Hgb Hct MCV MCH MCHC RDW Plt Count MPV Absolute Neuts (auto) Neutrophils % Lymphocytes % Monocytes % Eosinophils % Basophils % Nucleated RBC % PT with INR INR PTT (Actin FS) Sodium Potassium Chloride Carbon Dioxide Anion Gap BUN Creatinine Creat Clearance w eGFR POC Glucometer [phone] Random Glucose Lactic Acid Calcium Phosphorus 3.9 Magnesium 1.8 Total Bilirubin AST ALT Alkaline Phosphatase Creatine Kinase Troponin I < 0.02 B-Natriuretic Peptide Total Protein Albumin Urine Color Urine Appearance Urine pH Ur Specific [place] Urine Protein Urine Glucose (UA) Urine Ketones Urine Blood Urine Nitrite Urine Bilirubin Urine Urobilinogen Ur Leukocyte Esterase Influenza A (Rapid) Influenza B (Rapid) 07/26/18 07/26/18 07/26/18 05:44 05:50 05:50 WBC 6.0 RBC 3.57 L Hgb 10.6 L Hct 30.8 L MCV 86.3 MCH 29.8 MCHC 34.5 RDW 15.3 Plt Count 331 MPV 7.7 Absolute Neuts (auto) 3.6 Neutrophils % 59.8 Lymphocytes % 20.5 D Monocytes % 14.4 H Eosinophils % 4.3 Basophils % 1.0 Nucleated RBC % 0 PT with INR INR PTT (Actin FS) Sodium 134 L Potassium 3.5 Chloride 98 Carbon Dioxide 28 Anion Gap 9 BUN 14 Creatinine 0.8 Creat Clearance w eGFR > 60 POC Glucometer 201 Random Glucose 190 H Lactic Acid Calcium 7.9 L Phosphorus 3.6 Magnesium 1.8 Total Bilirubin AST ALT Alkaline Phosphatase Creatine Kinase Troponin I B-Natriuretic Peptide Total Protein Albumin Urine Color Urine Appearance Urine pH Ur Specific [place] Urine Protein Urine Glucose (UA) Urine Ketones Urine Blood Urine Nitrite Urine Bilirubin Urine Urobilinogen Ur Leukocyte Esterase Influenza A (Rapid) Influenza B (Rapid) Microbiology 07/25/18 23:59 Sputum - Expectorated Gram Stain - Final 07/25/18 21:00 Serum Mycoplasma Antibody - Preliminary 07/25/18 21:00 Serum Mycoplasma Antibody - Preliminary ASSESSMENT AND PLAN: 73 yof with PMHx of Non ischemic CM, recent Echo with preserved EF 50%, HTN, HLD , morbid obesity, h/o DVT/PE s/p IVC filter on xarelto recent L4-L5 laminectomy 06/19 readmitted with worsening back pain, found with seroma s/p IR guided drainage x 2, s/p Left SI joint injection last week, admitted with acute systolic HF exacerbation +/- Acute bronchitis/RLL HCAP -Acute Multifocal PNA PNA /Bronchitis -Acute on chronic systolic Heart failure exacerbation -Acute hypoxic respiratory distress -Afib with RVR, ?new onset -Non ischemic CM, with preserved EF 50% -L4-L5 laminectomy 06/19 with post operative seroma s/p IR guided drainage x 2 -Chronic low back pain s/p Left SI injection last week -IDDM -HTN -HLD -Morbid obesity -?prolonged QTc (corrected QT around 440) Plan: Afib with RVR today, ?new. EKG reviewed. Suspect in the setting of infection. Lopressor 5 mg IV, continue coreg. Check TSH. Follow up with cardiology. lasix 40 mg IV BID, strict I/Os, daily weights. Cardiology input appreciated. CT chest reviewed. ID input noted. cefepime day 1. QTc aroud 440 (confirmed with Dr. Brennan). Start azithromycin day 1 with monitoring. Follow up blood/sputum cx, urine PNA studies. rapid influenza swab neg. Hold lisinopril for now given soft BP and iV diuresis. Resume as tolerated. Continue coreg/xarelto. Increase levemir 15 units BID, ISS, diabetic diet. Titrate up as tolerated. Continue percocet/gabapentin. Ongoing PT as improves medically. DVTPPx on xarelto Dispo pending resolution of medical issues. Anticipate home d/c with services (patient adamantly declined SNF on recent admit) Plan discussed with patient in detail, all questions answered. Care co-ordinated with cardiology and nursing.
--- NOTE | 2018-07-26 13:01 | PN ---
Physical Exam: SUBJECTIVE: Patient seen and examined this AM. She states that she is still feeling SOB with some cough, though feeling slightly better today. She denies any fevers or chill, though she states she rarely has fevers even when she has infections. OBJECTIVE: Vital Signs Period Temp Pulse Resp BP Sys/Marcelo Pulse Ox Last 24 Hr 97.5 F-98.9 F 78-138 18-20 106-120/45-76 97-99 GENERAL: A&O, no acute distress HEAD: Normocephalic, atraumatic. EYES: PERRL, no scleral icterus EARS, NOSE, THROAT: oropharynx clear without exudates. Moist mucous membranes. NECK: supple without lymphadenopathy LUNGS: Mild wheezes noted in b/l bases HEART: Regular rate and rhythm, normal S1 and S2 without murmur ABDOMEN: Obese, Soft, nontender to palpation, normoactive bowel sounds MUSCULOSKELETAL: No bony deformities or tenderness. EXTREMITIES: 2+ pulses, warm, well-perfused. No peripheral edema. NEUROLOGICAL: Cranial nerves II-XII grossly intact. Normal speech. PSYCHIATRIC: Cooperative. Good eye contact. Appropriate mood and affect. SKIN: Warm, dry, no rashes or lesions noted Laboratory Results - last 24 hr 07/25/18 07/25/18 07/25/18 12:14 12:14 12:14 WBC 8.7 RBC 4.03 Hgb 11.8 Hct 35.1 MCV 87.0 MCH 29.3 MCHC 33.7 RDW 15.1 Plt Count 349 D MPV 7.9 Absolute Neuts (auto) 6.1 Neutrophils % 70.0 D Lymphocytes % 16.0 D Monocytes % 10.5 H Eosinophils % 2.8 Basophils % 0.7 Nucleated RBC % 0 PT with INR 25.30 H INR 2.13 H PTT (Actin FS) 32.6 Sodium 136 Potassium 4.2 Chloride 101 Carbon Dioxide 27 Anion Gap 9 BUN 15 Creatinine 0.9 Creat Clearance w eGFR > 60 POC Glucometer Random Glucose 212 H Lactic Acid Calcium 8.1 L Phosphorus Magnesium Total Bilirubin 0.6 AST 22 ALT 13 Alkaline Phosphatase 149 H Creatine Kinase 79 Troponin I < 0.02 B-Natriuretic Peptide 3407.6 H Total Protein 6.5 Albumin 2.7 L Urine Color Urine Appearance Urine pH Ur Specific [place] Urine Protein Urine Glucose (UA) Urine Ketones Urine Blood Urine Nitrite Urine Bilirubin Urine Urobilinogen Ur Leukocyte Esterase Influenza A (Rapid) Influenza B (Rapid) 07/25/18 07/25/18 07/25/18 14:15 14:40 16:30 WBC RBC Hgb Hct MCV MCH MCHC RDW Plt Count MPV Absolute Neuts (auto) Neutrophils % Lymphocytes % Monocytes % Eosinophils % Basophils % Nucleated RBC % PT with INR INR PTT (Actin FS) Sodium Potassium Chloride Carbon Dioxide Anion Gap BUN Creatinine Creat Clearance w eGFR POC Glucometer Random Glucose Lactic Acid 1.5 Calcium Phosphorus Magnesium Total Bilirubin AST ALT Alkaline Phosphatase Creatine Kinase Troponin I B-Natriuretic Peptide Total Protein Albumin Urine Color Ltyellow Urine Appearance Clear Urine pH 5.0 Ur Specific [place] 1.011 Urine Protein Negative Urine Glucose (UA) 1+ H Urine Ketones Negative Urine Blood Negative Urine Nitrite Negative Urine Bilirubin Negative Urine Urobilinogen Negative Ur Leukocyte Esterase Negative Influenza A (Rapid) Negative Influenza B (Rapid) Negative 07/25/18 07/25/18 07/25/18 16:45 21:00 21:03 WBC RBC Hgb Hct MCV MCH MCHC RDW Plt Count MPV Absolute Neuts (auto) Neutrophils % Lymphocytes % Monocytes % Eosinophils % Basophils % Nucleated RBC % PT with INR INR PTT (Actin FS) Sodium Potassium Chloride Carbon Dioxide Anion Gap BUN Creatinine Creat Clearance w eGFR POC Glucometer [phone] Random Glucose Lactic Acid Calcium Phosphorus 3.9 Magnesium 1.8 Total Bilirubin AST ALT Alkaline Phosphatase Creatine Kinase Troponin I < 0.02 B-Natriuretic Peptide Total Protein Albumin Urine Color Urine Appearance Urine pH Ur Specific [place] Urine Protein Urine Glucose (UA) Urine Ketones Urine Blood Urine Nitrite Urine Bilirubin Urine Urobilinogen Ur Leukocyte Esterase Influenza A (Rapid) Influenza B (Rapid) 07/26/18 07/26/18 07/26/18 05:44 05:50 05:50 WBC 6.0 RBC 3.57 L Hgb 10.6 L Hct 30.8 L MCV 86.3 MCH 29.8 MCHC 34.5 RDW 15.3 Plt Count 331 MPV 7.7 Absolute Neuts (auto) 3.6 Neutrophils % 59.8 Lymphocytes % 20.5 D Monocytes % 14.4 H Eosinophils % 4.3 Basophils % 1.0 Nucleated RBC % 0 PT with INR INR PTT (Actin FS) Sodium 134 L Potassium 3.5 Chloride 98 Carbon Dioxide 28 Anion Gap 9 BUN 14 Creatinine 0.8 Creat Clearance w eGFR > 60 POC Glucometer 201 Random Glucose 190 H Lactic Acid Calcium 7.9 L Phosphorus 3.6 Magnesium 1.8 Total Bilirubin AST ALT Alkaline Phosphatase Creatine Kinase Troponin I B-Natriuretic Peptide Total Protein Albumin Urine Color Urine Appearance Urine pH Ur Specific [place] Urine Protein Urine Glucose (UA) Urine Ketones Urine Blood Urine Nitrite Urine Bilirubin Urine Urobilinogen Ur Leukocyte Esterase Influenza A (Rapid) Influenza B (Rapid) Active Medications Generic Name Dose Route Start Last Admin Trade Name Freq PRN Reason Stop Dose Admin Acetaminophen 650 mg 07/25/18 16:34 07/26/18 09:01 Tylenol - PO 650 mg Q6H PRN Administration PAIN LEVEL 4 - 6 Azithromycin 500 mg 07/26/18 12:45 Zithromax - PO 08/01/18 10:01 DAILY [facility] Carvedilol 12.5 mg 07/26/18 11:00 Coreg - PO BID [facility] Docusate Sodium 100 mg 07/25/18 16:22 Colace - PO Q12H PRN CONSTIPATION Furosemide 40 mg 07/26/18 06:00 07/26/18 05:44 Lasix Injection - IVPUSH 40 mg BID@0600,1400 [facility] Administration Gabapentin 300 mg 07/25/18 22:00 07/26/18 10:33 Neurontin - PO Not Given BID [facility] Cefepime HCl 1 gm/ Dextrose 100 mls @ 200 mls/hr 07/26/18 11:00 07/26/18 12: 11 IVPB 200 mls/hr Q8H-IV [facility] Administration Protocol Insulin Aspart 1 vial 07/25/18 16:30 07/26/18 12:11 Novolog Vial Sliding Scale - SQ Not Given ACHS [facility] Protocol Insulin Detemir 15 units 07/26/18 12:14 Levemir Vial SQ BID@0700,2200 [facility] Lisinopril 5 mg 07/26/18 10:00 Prinivil PO DAILY [facility] Multivitamins/Minerals/Vitamin C 1 tab 07/26/18 10:00 07/26/18 10:33 Tab-A-Vit - PO Not Given DAILY [facility] Oxycodone HCl 10 mg 07/25/18 16:34 07/26/18 09:01 Roxicodone - PO 10 mg Q6H PRN Administration PAIN LEVEL 4 - 6 Rivaroxaban 20 mg 07/26/18 18:00 Xarelto - PO DAILY@1800 [facility] Zolpidem Tartrate 5 mg 07/25/18 16:22 07/25/18 23:05 Ambien - PO 5 mg HS PRN Administration INSOMNIA ASSESSMENT/PLAN: 73 y/o F with h/o HTN, NIDDM, CHFpEF (06/19/18 EF ~50%), intractable lower back pain s/p L4-L5 laminectomy, L2-S1 seroma s/p drainage, 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 HCAP vs Fluid overload -Pt does not appear clinically fluid overloaded, though mild wheezes noted at the bases with effusions seen on CT chest -WBC count wnl and pt afebrile -Azithromycin 500 mg IV Daily -ID consult appreciated -Cefepime 1 gm IV Q8 -Cardiology consult appreciated -previous echo results noted -Lasix 40 mg IV BID -Strict I&Os New Onset A-fib -Coreg 6.25 mg PO BID doubled to 12.5 mg PO BID -Cardiology consult appreciated -Pt denies hx of A-fib -likely brought about by acute stress secondary to infection -Lopressor 5 mg IV Q4 PRN Tachycardia >130 NIDDM -BGMs ACHS -Insulin sliding scale for glycemic control Lower Back Pain -s/p L4-L5 laminectomy -Roxicodone 10 mg PO Q6 -Neurontin 300 mg PO BID Hx DVT/PE -On Xarelto, with IVC filter ->10 yrs ago DVT Prophylaxis -Xarelto 20 mg PO Daily FEN -Fluids: none -Electrolytes: No electrolyte abnormalities, BMP in AM -Nutrition: Na controlled diet Disposition Telemetry Visit type - Emergency Visit Emergency Visit: Yes ED Registration Date: 07/25/18 Care time: The patient presented to the Emergency Department on the above date and was hospitalized for further evaluation of their emergent condition. - New Patient This patient is new to me today: Yes Date on this admission: 07/26/18 - Critical Care Critical Care patient: No
[2018-07-26] MEDS: AZITHROMYCIN 250 MG TABLET PO SCH (14:15)
[2018-07-26] MEDS ORDERED: METOPROLOL TARTRATE 5 MG/5 ML VIAL IVPUSH PRN (16:10)
[2018-07-26] MEDS: RIVAROXABAN 20 MG TABLET PO SCH (17:04)
[2018-07-26] MEDS ORDERED: PT OWN MED DRAWER 7, Y5N ONE (17:05)
[2018-07-26] MEDS: CARVEDILOL 12.5 MG TABLET (FP) PO SCH (21:39)
[2018-07-26] MEDS: ZOLPIDEM TARTRATE 5 MG TABLET PO PRN (23:34)
[2018-07-27] MEDS ORDERED: DEXTROSE 5%-WATER 100 ML IVPB ONE ×3 (00:37→17:16)
[2018-07-27] MEDS ORDERED: CEFEPIME HCL 1 GM VIAL (RESTRICTED TO ID) ONE ×3 (00:37→17:16)
[2018-07-27] MEDS ORDERED: MAGNESIUM SULF 50% (8.12 MEQ/2 ML-1 GM VIAL) IVPB ONE (01:06)
[2018-07-27] MEDS: CEFEPIME 1 GM in DEXTROSE 5%-WATER 100 ML IVPB SCH ×3 (01:09→17:17)
[2018-07-27 06:39] LABS: BASO % 1.2 % (0-2.0); EOS % 4.7 % (0-4.5); HEMATOCRIT 30.9 % (32.4-45.2); HEMOGLOBIN 10.3 GM/dL (10.7-15.3); LYMPH % 26.7 % (8-40); MCH 29.3 pg (25.7-33.7); MCHC 33.4 g/dl (32.0-36.0); MEAN CELL VOLUME 87.7 fl (80-96); MEAN PLT VOLUME 7.7 fl (7.5-11.1); MONO % 18.4 % (3.8-10.2); PLATELET COUNT 287 K/MM3 (134-434); RBC 3.53 M/mm3 (3.60-5.2); RDW 15.4 % (11.6-15.6); WHITE BLOOD COUNT 5.3 K/mm3 (4.0-10.0)
[2018-07-27] MEDS: INSULIN (LEVEMIR) 100 UNITS/ML UNITS SQ SCH ×2 (06:58→22:10)
[2018-07-27] MEDS: FUROSEMIDE 40 MG/4 ML INJECTABLE VIAL IVPUSH SCH ×2 (06:58→14:17)
[2018-07-27] MEDS: INSULIN SLIDING SCALE (NOVOLOG) 1 VIAL SQ SCH ×4 (06:58→22:10)
[2018-07-27 07:09] LABS: ANION GAP 6 MMOL/L (8-16); BLOOD UREA NITROGEN 17 mg/dL (7-18); CALCIUM 7.7 mg/dL (8.5-10.1); CHLORIDE 99 mmol/L (98-107); CO2 30 mmol/L (21-32); GLUCOSE,RANDOM 249 mg/dL (74-106); MAGNESIUM 2.2 mg/dL (1.8-2.4); PHOSPHOROUS 4.3 mg/dL (2.5-4.9); POTASSIUM 3.6 mmol/L (3.5-5.1); SODIUM 135 mmol/L (136-145)
[2018-07-27] MEDS ORDERED: POTASSIUM CHLORIDE TABS 20 MEQ TABLET.ER (FP) PO ONE (07:28)
--- NOTE | 2018-07-27 07:37 | PN ---
Teaching Attending Note Name of Resident: Jeffery Burrell ATTENDING PHYSICIAN STATEMENT I saw and evaluated the patient. I reviewed the resident's note and discussed the case with the resident. I agree with the resident's findings and plan as documented with exceptions below. SUBJECTIVE: Patient seen and examined. Still with cough. Breathing with some improvement. NO chest pain, palpitations noted. OBJECTIVE: Vital Signs Period Temp Pulse Resp BP Sys/Marcelo Pulse Ox Last 24 Hr 97.4 F-97.8 F 82-142 18-20 103-116/61-75 96-97 Intake & Output 07/24/18 07/25/18 07/26/18 07/27/18 23:59 23:59 23:59 23:59 Intake Total 50 1300 260 Output Total 250 250 Balance -200 1050 260 Weight 210 lb 214 lb 6 oz General: lying in bed, coughing but no acute distress Chest: bibasilar fine rales, R>L, good air entry, occasional rhonchi Abdomen: soft,obese, NT Extremities: improved pedal edema Active Medications Acetaminophen (Tylenol -) 650 mg PO Q6H PRN PRN Reason: PAIN LEVEL 4 - 6 Last Admin: 07/26/18 23:35 Dose: 650 mg Azithromycin (Zithromax -) 500 mg PO DAILY [facility] Stop: 08/01/18 10:01 Last Admin: 07/26/18 14:15 Dose: 500 mg Carvedilol (Coreg -) 12.5 mg PO BID [facility] Last Admin: 07/26/18 21:39 Dose: 12.5 mg Docusate Sodium (Colace -) 100 mg PO Q12H PRN PRN Reason: CONSTIPATION Furosemide (Lasix Injection -) 40 mg IVPUSH BID@0600,1400 [facility] Last Admin: 07/27/18 06:58 Dose: 40 mg Gabapentin (Neurontin -) 300 mg PO BID [facility] Last Admin: 07/26/18 21:39 Dose: 300 mg Cefepime HCl 1 gm/ Dextrose 100 mls @ 200 mls/hr IVPB Q8H-IV LISA; Protocol Last Admin: 07/27/18 01:09 Dose: 200 mls/hr Insulin Aspart (Novolog Vial Sliding Scale -) 1 vial SQ ACHS [facility]; Protocol Last Admin: 07/27/18 06:58 Dose: 6 units Insulin Detemir (Levemir Vial) 15 units SQ BID@0700,2200 [facility] Last Admin: 07/27/18 06:58 Dose: 15 units Lisinopril (Prinivil) 5 mg PO DAILY [facility] Metoprolol Tartrate (Lopressor Injection -) 5 mg IVPUSH Q4H PRN PRN Reason: TACHYCARDIA Last Admin: 07/27/18 01:09 Dose: 5 mg Multivitamins/Minerals/Vitamin C (Tab-A-Vit -) 1 tab PO DAILY [facility] Last Admin: 07/26/18 10:33 Dose: Not Given Oxycodone HCl (Roxicodone -) 10 mg PO Q6H PRN PRN Reason: PAIN LEVEL 4 - 6 Last Admin: 07/26/18 23:34 Dose: 10 mg Potassium Chloride (K-Dur -) 40 meq PO ONCE ONE Stop: 07/27/18 07:29 Rivaroxaban (Xarelto -) 20 mg PO DAILY@1800 [facility] Last Admin: 07/26/18 17:04 Dose: 20 mg Zolpidem Tartrate (Ambien -) 5 mg PO HS PRN PRN Reason: INSOMNIA Last Admin: 07/26/18 23:34 Dose: 5 mg Laboratory Results - last 24 hr 07/26/18 07/26/18 07/26/18 05:50 05:50 16:46 WBC 6.0 RBC 3.57 L Hgb 10.6 L Hct 30.8 L MCV 86.3 MCH 29.8 MCHC 34.5 RDW 15.3 Plt Count 331 MPV 7.7 Absolute Neuts (auto) 3.6 Neutrophils % 59.8 Lymphocytes % 20.5 D Monocytes % 14.4 H Eosinophils % 4.3 Basophils % 1.0 Nucleated RBC % 0 Sodium 134 L Potassium 3.5 Chloride 98 Carbon Dioxide 28 Anion Gap 9 BUN 14 Creatinine 0.8 Creat Clearance w eGFR > 60 POC Glucometer 274 Random Glucose 190 H Calcium 7.9 L Phosphorus 3.6 Magnesium 1.8 B-Natriuretic Peptide TSH 2.33 07/26/18 07/26/18 07/27/18 19:45 20:55 05:39 WBC RBC Hgb Hct MCV MCH MCHC RDW Plt Count MPV Absolute Neuts (auto) Neutrophils % Lymphocytes % Monocytes % Eosinophils % Basophils % Nucleated RBC % Sodium Potassium Chloride Carbon Dioxide Anion Gap BUN Creatinine Creat Clearance w eGFR POC Glucometer 169 253 Random Glucose Calcium Phosphorus Magnesium B-Natriuretic Peptide 3412.6 H TSH 07/27/18 06:00 WBC RBC Hgb Hct MCV MCH MCHC RDW Plt Count MPV Absolute Neuts (auto) Neutrophils % Lymphocytes % Monocytes % Eosinophils % Basophils % Nucleated RBC % Sodium 135 L Potassium 3.6 Chloride 99 Carbon Dioxide 30 Anion Gap 6 L BUN 17 Creatinine 1.0 Creat Clearance w eGFR 54.50 POC Glucometer Random Glucose 249 H Calcium 7.7 L Phosphorus 4.3 Magnesium 2.2 B-Natriuretic Peptide TSH Microbiology 07/25/18 14:30 Blood - Peripheral Venous Blood Culture - Preliminary NO GROWTH OBTAINED AFTER 24 HOURS, INCUBATION TO CONTINUE FOR 4 DAYS. 07/25/18 14:20 Blood - Peripheral Venous Blood Culture - Preliminary NO GROWTH OBTAINED AFTER 24 HOURS, INCUBATION TO CONTINUE FOR 4 DAYS. 07/25/18 23:59 Sputum - Expectorated Gram Stain - Final 07/25/18 21:00 Serum Mycoplasma Antibody - Preliminary 07/25/18 21:00 Serum Mycoplasma Antibody - Preliminary ASSESSMENT AND PLAN: 73 yof with PMHx of Non ischemic CM, recent Echo with preserved EF 50%, HTN, HLD , morbid obesity, h/o DVT/PE s/p IVC filter on xarelto recent L4-L5 laminectomy 06/19 readmitted with worsening back pain, found with seroma s/p IR guided drainage x 2, s/p Left SI joint injection last week, admitted with acute systolic HF exacerbation +/- Acute bronchitis/RLL HCAP -Acute Multifocal PNA PNA /Bronchitis -Acute on chronic systolic Heart failure exacerbation -Acute hypoxic respiratory distress -Afib with RVR, ?new onset -Non ischemic CM, with preserved EF 50% -L4-L5 laminectomy 06/19 with post operative seroma s/p IR guided drainage x 2 -Chronic low back pain s/p Left SI injection last week -IDDM -HTN -HLD -Morbid obesity -?prolonged QTc (corrected QT around 440) -Frequent PVCs/Ventricular Bigeminy Plan: Back in NSR. Coreg increased, continue. Cardiology input noted. Hold lisinopril to allow room for rate controlling agents, resume as tolerated. lasix 40 mg IV BID, strict I/Os, daily weights. Cardiology input appreciated. CT chest reviewed. ID input noted. cefepime day/azithromycin day 2. QTc aroud 440 (confirmed with Dr. Brennan). Follow up blood/sputum cx, urine PNA studies. Rapid influenza swab neg. Add expectorants/Chest PT. Hold off on nebs given risk for tachycardia. Continue xarelto. Increase levemir 15 units BID, ISS, diabetic diet. Titrate up as tolerated. Continue percocet/gabapentin. Ongoing PT as improves medically. DVTPPx on xarelto Dispo pending resolution of medical issues. Anticipate home d/c with services (patient adamantly declined SNF on recent admit) in 2-3 days on oral antibiotics if continues to improve. Plan discussed with patient in detail, all questions answered.
[2018-07-27] MEDS ORDERED: METOPROLOL TARTRATE 5 MG/5 ML VIAL IVPUSH PRN (08:31)
--- NOTE | 2018-07-27 08:37 | PN ---
Physical Exam: SUBJECTIVE: Patient seen and examined this AM. She states she is still SOB and having some coughing fits, but overall she is feeling much better than yesterday. OBJECTIVE: Vital Signs Period Temp Pulse Resp BP Sys/Marcelo Pulse Ox Last 24 Hr 97.4 F-97.8 F 82-142 18-20 103-116/61-75 96-97 GENERAL: A&O, no acute distress HEAD: Normocephalic, atraumatic. EYES: PERRL, no scleral icterus EARS, NOSE, THROAT: oropharynx clear without exudates. Moist mucous membranes. NECK: supple without lymphadenopathy LUNGS: CTA b/l, wheezing resolved HEART: Regular rate and rhythm, normal S1 and S2 without murmur ABDOMEN: Obese, Soft, nontender to palpation, normoactive bowel sounds MUSCULOSKELETAL: No bony deformities or tenderness. Surgical site on lower spine with dressing clean and in tact EXTREMITIES: 2+ pulses, warm, well-perfused. No peripheral edema. NEUROLOGICAL: Cranial nerves II-XII grossly intact. Normal speech. PSYCHIATRIC: Cooperative. Good eye contact. Appropriate mood and affect. SKIN: Warm, dry, no rashes or lesions noted Laboratory Results - last 24 hr 07/26/18 07/26/18 07/26/18 05:50 05:50 16:46 WBC 6.0 RBC 3.57 L Hgb 10.6 L Hct 30.8 L MCV 86.3 MCH 29.8 MCHC 34.5 RDW 15.3 Plt Count 331 MPV 7.7 Absolute Neuts (auto) 3.6 Neutrophils % 59.8 Lymphocytes % 20.5 D Monocytes % 14.4 H Eosinophils % 4.3 Basophils % 1.0 Nucleated RBC % 0 Sodium 134 L Potassium 3.5 Chloride 98 Carbon Dioxide 28 Anion Gap 9 BUN 14 Creatinine 0.8 Creat Clearance w eGFR > 60 POC Glucometer 274 Random Glucose 190 H Calcium 7.9 L Phosphorus 3.6 Magnesium 1.8 B-Natriuretic Peptide TSH 2.33 07/26/18 07/26/18 07/27/18 19:45 20:55 05:39 WBC RBC Hgb Hct MCV MCH MCHC RDW Plt Count MPV Absolute Neuts (auto) Neutrophils % Lymphocytes % Monocytes % Eosinophils % Basophils % Nucleated RBC % Sodium Potassium Chloride Carbon Dioxide Anion Gap BUN Creatinine Creat Clearance w eGFR POC Glucometer 169 253 Random Glucose Calcium Phosphorus Magnesium B-Natriuretic Peptide 3412.6 H TSH 07/27/18 07/27/18 06:00 06:00 WBC 5.3 RBC 3.53 L Hgb 10.3 L Hct 30.9 L MCV 87.7 MCH 29.3 MCHC 33.4 RDW 15.4 Plt Count 287 MPV 7.7 Absolute Neuts (auto) 2.6 Neutrophils % 49.0 Lymphocytes % 26.7 D Monocytes % 18.4 H Eosinophils % 4.7 H Basophils % 1.2 Nucleated RBC % 0 Sodium 135 L Potassium 3.6 Chloride 99 Carbon Dioxide 30 Anion Gap 6 L BUN 17 Creatinine 1.0 Creat Clearance w eGFR 54.50 POC Glucometer Random Glucose 249 H Calcium 7.7 L Phosphorus 4.3 Magnesium 2.2 B-Natriuretic Peptide TSH Active Medications Generic Name Dose Route Start Last Admin Trade Name Freq PRN Reason Stop Dose Admin Acetaminophen 650 mg 07/25/18 16:34 07/26/18 23:35 Tylenol - PO 650 mg Q6H PRN Administration PAIN LEVEL 4 - 6 Azithromycin 500 mg 07/26/18 12:45 07/26/18 14:15 Zithromax - PO 08/01/18 10:01 500 mg DAILY LISA Administration Carvedilol 12.5 mg 07/26/18 11:00 07/26/18 21:39 Coreg - PO 12.5 mg BID [facility] Administration Docusate Sodium 100 mg 07/25/18 16:22 Colace - PO Q12H PRN CONSTIPATION Furosemide 40 mg 07/26/18 06:00 07/27/18 06:58 Lasix Injection - IVPUSH 40 mg BID@0600,1400 [facility] Administration Gabapentin 300 mg 07/25/18 22:00 07/26/18 21:39 Neurontin - PO 300 mg BID [facility] Administration Cefepime HCl 1 gm/ Dextrose 100 mls @ 200 mls/hr 07/26/18 11:00 07/27/18 01: 09 IVPB 200 mls/hr Q8H-IV [facility] Administration Protocol Insulin Aspart 1 vial 07/25/18 16:30 07/27/18 06:58 Novolog Vial Sliding Scale - SQ 6 units ACHS [facility] Administration Protocol Insulin Detemir 15 units 07/26/18 12:14 07/27/18 06:58 Levemir Vial SQ 15 units BID@0700,2200 [facility] Administration Lisinopril 5 mg 07/26/18 10:00 Prinivil PO DAILY [facility] Metoprolol Tartrate 5 mg 07/27/18 08:31 Lopressor Injection - IVPUSH Q4H PRN TACHYCARDIA Multivitamins/Minerals/Vitamin C 1 tab 07/26/18 10:00 07/26/18 10:33 Tab-A-Vit - PO Not Given DAILY [facility] Oxycodone HCl 10 mg 07/25/18 16:34 07/26/18 23:34 Roxicodone - PO 10 mg Q6H PRN Administration PAIN LEVEL 4 - 6 Rivaroxaban 20 mg 07/26/18 18:00 07/26/18 17:04 Xarelto - PO 20 mg DAILY@1800 [facility] Administration Zolpidem Tartrate 5 mg 07/25/18 16:22 07/26/18 23:34 Ambien - PO 5 mg HS PRN Administration INSOMNIA ASSESSMENT/PLAN: 73 y/o F with h/o HTN, NIDDM, CHFpEF (06/19/18 EF ~50%), intractable lower back pain s/p L4-L5 laminectomy, L2-S1 seroma s/p drainage, 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 HCAP vs Fluid overload -Pt does not appear clinically fluid overloaded, though mild wheezes noted at the bases with effusions seen on CT chest -WBC count wnl and pt afebrile -Azithromycin 500 mg IV Daily, EKG says QTc prolonged, however on manual calculation, not much greater than 440-450 -ID consult appreciated -Cefepime 1 gm IV Q8 -Cardiology consult appreciated -previous echo results noted -Lasix 40 mg IV BID -Strict I&Os -Chest PT -Robitussin 10 Q4 New Onset A-fib -Coreg 6.25 mg PO BID doubled to 12.5 mg PO BID -Cardiology consult appreciated -Pt denies hx of A-fib -likely brought about by acute stress secondary to infection -Lopressor 5 mg IV Q4 PRN Tachycardia >120 -Currently in Sinus rythm NIDDM -BGMs ACHS -Insulin sliding scale for glycemic control Lower Back Pain -s/p L4-L5 laminectomy -Roxicodone 10 mg PO Q6 -Neurontin 300 mg PO BID Hx DVT/PE -On Xarelto, with IVC filter ->10 yrs ago DVT Prophylaxis -Xarelto 20 mg PO Daily FEN -Fluids: none -Electrolytes: No electrolyte abnormalities, BMP in AM -Nutrition: Na controlled diet Disposition Telemetry Visit type - Emergency Visit Emergency Visit: Yes ED Registration Date: 07/25/18 Care time: The patient presented to the Emergency Department on the above date and was hospitalized for further evaluation of their emergent condition. - New Patient This patient is new to me today: No - Critical Care Critical Care patient: No
[2018-07-27 09:55] LABS: N-TERMINAL BNP 3327.1 pg/ml (5-125)
[2018-07-27] MEDS: MULTIVITAMINS (DAILY MVI) TABLET (FP) PO SCH (10:33)
[2018-07-27] MEDS: CARVEDILOL 12.5 MG TABLET (FP) PO SCH ×2 (10:33→22:10)
[2018-07-27] MEDS: GABAPENTIN 300 MG CAPSULE (FP) PO SCH ×2 (10:33→22:10)
[2018-07-27] MEDS: AZITHROMYCIN 250 MG TABLET PO SCH (10:34)
[2018-07-27] MEDS: oxyCODONE HCL 5 MG TABLET PO PRN ×2 (10:35→22:10)
--- NOTE | 2018-07-27 10:36 | PN ---
Progress Note (short form) - Note Progress Note: s: no cp palps dizzy; sob cough a little better o: Vital Signs Period Temp Pulse Resp BP Sys/Marcelo Pulse Ox Last 24 Hr 97.4 F-97.8 F 82-142 18-20 103-113/61-70 97 Constitutional: Yes: Well Nourished, No Distress Eyes: No: Sclera Icterus Respiratory: Yes:mild wheezing, nl eff Gastrointestinal: Yes: Normal Bowel Sounds. No: Distention, Hepatomegaly, Palpable Mass, Tenderness Cardiovascular: Yes: Regular Rate and Rhythm JVD: No Carotid Bruit: No PMI: Non-Displaced Heart Sounds: Yes: S1, S2. No: Gallop Murmur: No: Systolic Murmur, Diastolic Murmur Extremities: No: Cold, Cyanosis Edema: No Integumentary: No: Jaundice diaphoresis Neurological: Yes: Alert, Oriented (x3) Psychiatric: No: Agitated Current Medications Generic Name Dose Route Start Last Admin Trade Name Freq PRN Reason Stop Dose Admin Acetaminophen 650 mg 07/25/18 16:34 07/26/18 23:35 Tylenol - PO 650 mg Q6H PRN Administration PAIN LEVEL 4 - 6 Azithromycin 500 mg 07/26/18 12:45 07/26/18 14:15 Zithromax - PO 08/01/18 10:01 500 mg DAILY [facility] Administration Carvedilol 12.5 mg 07/26/18 11:00 07/26/18 21:39 Coreg - PO 12.5 mg BID [facility] Administration Docusate Sodium 100 mg 07/25/18 16:22 Colace - PO Q12H PRN CONSTIPATION Furosemide 40 mg 07/26/18 06:00 07/27/18 06:58 Lasix Injection - IVPUSH 40 mg BID@0600,1400 [facility] Administration Gabapentin 300 mg 07/25/18 22:00 07/26/18 21:39 Neurontin - PO 300 mg BID [facility] Administration Guaifenesin 10 ml 07/27/18 10:15 Robitussin - PO Q6H PRN COUGH Cefepime HCl 1 gm/ Dextrose 100 mls @ 200 mls/hr 07/26/18 11:00 07/27/18 01: 09 IVPB 200 mls/hr Q8H-IV [facility]ISA Administration Protocol Insulin Aspart 1 vial 07/25/18 16:30 07/27/18 06:58 Novolog Vial Sliding Scale - SQ 6 units ACHS [facility] Administration Protocol Insulin Detemir 15 units 07/26/18 12:14 07/27/18 06:58 Levemir Vial SQ 15 units BID@0700,2200 [facility] Administration Lisinopril 5 mg 07/26/18 10:00 Prinivil PO DAILY [facility] Metoprolol Tartrate 5 mg 07/27/18 08:31 Lopressor Injection - IVPUSH Q4H PRN TACHYCARDIA Multivitamins/Minerals/Vitamin C 1 tab 07/26/18 10:00 07/26/18 10:33 Tab-A-Vit - PO Not Given DAILY [facility] Oxycodone HCl 10 mg 07/25/18 16:34 07/26/18 23:34 Roxicodone - PO 10 mg Q6H PRN Administration PAIN LEVEL 4 - 6 Rivaroxaban 20 mg 07/26/18 18:00 07/26/18 17:04 Xarelto - PO 20 mg DAILY@1800 [facility] Administration Zolpidem Tartrate 5 mg 07/25/18 16:22 07/26/18 23:34 Ambien - PO 5 mg HS PRN Administration INSOMNIA CBC, BMP 07/27/18 06:00 07/27/18 06:00 ECG 07/26 atrial fibrillation rate 138 CXR: possible R infiltrate CT chest: atelectasis with consolidation/airspace dz in lower lung olvera R>L as well as small neris pleural effusion, R >L c/w pneumonia echo here 06/2018: nl lv, rv tds, mild mr, nl rvsp echo here 06/01/17: nl lv, nl rv size, mild fernando, sev mr, mild tr, nl rvsp echo in office 05/09/2017: mild-mod lve, lvef 30-35%, global hk, nl rv size, mild dec rv fcn, mild lae, mod-sev mr mibi 05/2014: no ischemia, mildly reduced lvef cath 2005: normal cors tele: sinus, pvcs a/p: 71 f hx multiple PEs/DVTs s/p ivc filter and on xarelto dm, hld, htn, sys chf, here with shortness of breath. Shortness of breath, acute on chronic systolic HF exacerbation, PNA -nonisch CMP dx'd 2014 (L/RHC 8moderately elevated wedge (25) and corresponding elevation in PAPs (50/25); NORMAL CORONARIES -severely reduced cardiac index on that RHC -more recent echo reporting improved lvef, ? varying appearances related to TDS images (Definity used in office 2017) - normal reported LV (and only mild MR), with no signs of pulm HTN on echo done 06/25 here. -seen by us 07/25 (here for refractory back pain req surgical intervention). was euvolemic/stable on torsemide 20 qd, carvedilol 25 bid, lisinopril 5 qd. -tolerate sbp > 90 here - holding lisinopril for low BPs, continue carvedilol for now - infiltrate and pleural effusions on imaging - on lasix 40 mg IV BID, continue, monitor Cr, lytes, daily standing weights - abx for PNA per hospitalist, ID Atrial fibrillation - new diagnosis - on xarelto for DVT/PE, continue - on carvedilol -cont tele HTN: - stable, cont lisinopril, coreg h/o VTEs (DVTs and PEs): -s/p IVC filter -on lifelong AC per prior plan (felt to be hypercoagulable by heme) - continue xarelto chronic L/S spine disease/pain: -s/p repeat spine surgery 06/2018
[2018-07-27] MEDS: ACETAMINOPHEN 325 MG TABLET (FP) PO PRN ×2 (10:37→22:19)
--- NOTE | 2018-07-27 12:02 | EKG ---
Test Reason : Blood Pressure : / mmHG Vent. Rate : 085 BPM Atrial Rate : 085 BPM P-R Int : 172 ms QRS Dur : 098 ms QT Int : 402 ms P-R-T Axes : 069 072 130 degrees QTc Int : 478 ms SINUS RHYTHM WITH FREQUENT PREMATURE VENTRICULAR COMPLEXES NONSPECIFIC T WAVE ABNORMALITY PROLONGED QT ABNORMAL ECG WHEN COMPARED WITH ECG OF 26-JUL-2018 09:00, SINUS RHYTHM HAS REPLACED ATRIAL FIBRILLATION VENT. RATE HAS DECREASED BY 53 BPM Confirmed by MARCOS FRANZ MD ([id number]) on 07/27/2018 12:02:20 PM Referred By: SYLVIE ROOT Confirmed By:MARCOS FRANZ MD
[2018-07-27] MEDS: guaiFENesin 200 MG/10 ML 10 ML UNIT-DOSE CUPS PO PRN ×2 (15:17→22:10)
[2018-07-27] MEDS: RIVAROXABAN 20 MG TABLET PO SCH (17:17)
--- NOTE | 2018-07-27 17:39 | PN ---
Progress Note (short form) - Note Progress Note: less cough no complaints Vital Signs Period Temp Pulse Resp BP Sys/Marcelo Pulse Ox Last 24 Hr 97.3 F-97.8 F 82-134 16-21 103-141/61-71 95-97 cor-rrr lungs bibasilar crackles abd soft,nt ext no edema CBC, BMP 07/27/18 06:00 07/27/18 06:00 Microbiology 07/25/18 14:30 Blood - Peripheral Venous Blood Culture - Preliminary NO GROWTH OBTAINED AFTER 48 HOURS, INCUBATION TO CONTINUE FOR 3 DAYS. 07/25/18 14:20 Blood - Peripheral Venous Blood Culture - Preliminary NO GROWTH OBTAINED AFTER 48 HOURS, INCUBATION TO CONTINUE FOR 3 DAYS. 07/26/18 14:00 Urine For Antigen Detection Legionella Antigen - Final 07/26/18 14:00 Urine For Antigen Detection Streptococcus pneumoniae Antigen (M - Final 07/25/18 16:30 Urine - Urine Clean Catch Urine Culture - Final 07/25/18 23:59 Sputum - Expectorated Gram Stain - Final 07/25/18 23:59 Sputum - Expectorated Sputum Culture - Preliminary NORMAL RESPIRATORY GRANT 07/25/18 21:00 Serum Mycoplasma Antibody - Preliminary 07/25/18 21:00 Serum Mycoplasma Antibody - Preliminary a/p RLL pneumonia-normal grant, d/c cefepime, resume rocephin/zithromax CHF- on lasix new afib per cardiology Problem List - Problems (1) Pneumonia Code(s): J18.9 - PNEUMONIA, UNSPECIFIED ORGANISM Qualifiers: Laterality: right Lung location: lower lobe of lung (2) New onset a-fib Code(s): I48.91 - UNSPECIFIED ATRIAL FIBRILLATION (3) CHF (congestive heart failure) Code(s): I50.9 - HEART FAILURE, UNSPECIFIED (4) Postoperative seroma Code(s): GDJ0298 - (5) Allergy to multiple antibiotics Code(s): Z88.1 - ALLERGY STATUS TO OTHER ANTIBIOTIC AGENTS STATUS
[2018-07-27] MEDS ORDERED: BENZOCAINE/MENTH/CETYLPYRD CL 1 EACH LOZENGE MM PRN (20:25)
[2018-07-27] MEDS: ZOLPIDEM TARTRATE 5 MG TABLET PO PRN (22:19)
[2018-07-28] MEDS ORDERED: diphenhydrAMINE HCL 25 MG CAPSULE (FP) PO ONE (01:18)
[2018-07-28] MEDS: FUROSEMIDE 40 MG/4 ML INJECTABLE VIAL IVPUSH SCH ×2 (06:36→13:28)
[2018-07-28] MEDS: INSULIN (LEVEMIR) 100 UNITS/ML UNITS SQ SCH ×2 (06:37→21:02)
[2018-07-28] MEDS: INSULIN SLIDING SCALE (NOVOLOG) 1 VIAL SQ SCH ×4 (06:45→21:01)
[2018-07-28] MEDS ORDERED: PT OWN MED DRAWER 7, Y5N ONE ×2 (08:33→17:21)
[2018-07-28] MEDS ORDERED: DEXTROSE 5%-WATER - 50 ML IVPB ONE (08:33)
[2018-07-28] MEDS ORDERED: cefTRIAXone SODIUM 1 GM VIAL ONE (08:33)
[2018-07-28] MEDS: oxyCODONE HCL 5 MG TABLET PO PRN ×3 (08:36→21:02)
[2018-07-28 08:46] LABS: BASO % 1.2 % (0-2.0); EOS % 5.7 % (0-4.5); HEMATOCRIT 34.3 % (32.4-45.2); HEMOGLOBIN 10.6 GM/dL (10.7-15.3); MCH 27.2 pg (25.7-33.7); MCHC 30.8 g/dl (32.0-36.0); MEAN CELL VOLUME 88.3 fl (80-96); MEAN PLT VOLUME 7.7 fl (7.5-11.1); MONO % 15.7 % (3.8-10.2); NEUT % 47.4 % (42.8-82.8); PLATELET COUNT 257 K/MM3 (134-434); RBC 3.89 M/mm3 (3.60-5.2); RDW 15.2 % (11.6-15.6); WHITE BLOOD COUNT 5.6 K/mm3 (4.0-10.0)
[2018-07-28 09:08] LABS: ANION GAP 8 MMOL/L (8-16); BLOOD UREA NITROGEN 18 mg/dL (7-18); CALCIUM 8.5 mg/dL (8.5-10.1); CHLORIDE 99 mmol/L (98-107); CO2 30 mmol/L (21-32); CREATININE 0.8 mg/dL (0.55-1.3); GLUCOSE,RANDOM 107 mg/dL (74-106); MAGNESIUM 2.4 mg/dL (1.8-2.4); PHOSPHOROUS 3.8 mg/dL (2.5-4.9); POTASSIUM 3.7 mmol/L (3.5-5.1); SODIUM 137 mmol/L (136-145)
[2018-07-28] MEDS: GABAPENTIN 300 MG CAPSULE (FP) PO SCH ×2 (09:12→21:01)
[2018-07-28] MEDS: CARVEDILOL 12.5 MG TABLET (FP) PO SCH ×2 (09:13→21:01)
[2018-07-28] MEDS: MULTIVITAMINS (DAILY MVI) TABLET (FP) PO SCH (09:13)
[2018-07-28] MEDS: CEFTRIAXONE 1 GM in DEXTROSE 5%-WATER - 50 ML IVPB SCH (09:13)
--- NOTE | 2018-07-28 10:39 | PN ---
Progress Note (short form) - Note Progress Note: s: no cp palps dizzy; sob cough a little better o: Vital Signs Period Temp Pulse Resp BP Sys/Marcelo Pulse Ox Last 24 Hr 97.4 F-98.3 F 75-84 16-20 115-137/53-72 98-98 Constitutional: Yes: Well Nourished, No Distress Eyes: No: Sclera Icterus Respiratory: Yes:mild wheezing, nl eff Gastrointestinal: Yes: Normal Bowel Sounds. No: Distention, Hepatomegaly, Palpable Mass, Tenderness Cardiovascular: Yes: Regular Rate and Rhythm JVD: No Carotid Bruit: No PMI: Non-Displaced Heart Sounds: Yes: S1, S2. No: Gallop Murmur: No: Systolic Murmur, Diastolic Murmur Extremities: No: Cold, Cyanosis Edema: No Integumentary: No: Jaundice diaphoresis Neurological: Yes: Alert, Oriented (x3) Psychiatric: No: Agitated Current Medications Generic Name Dose Route Start Last Admin Trade Name Freq PRN Reason Stop Dose Admin Acetaminophen 650 mg 07/25/18 16:34 07/27/18 22:19 Tylenol - PO 650 mg Q6H PRN Administration PAIN LEVEL 4 - 6 Benzocaine/Menthol 1 each 07/27/18 20:25 07/27/18 20:35 Cepacol Lozenge - MM 1 each PRN PRN Administration SORE THROAT Carvedilol 12.5 mg 07/26/18 11:00 07/28/18 09:13 Coreg - PO 12.5 mg BID LISA Administration Docusate Sodium 100 mg 07/25/18 16:22 Colace - PO Q12H PRN CONSTIPATION Furosemide 40 mg 07/26/18 06:00 07/28/18 06:36 Lasix Injection - IVPUSH 40 mg BID@0600,1400 LISA Administration Gabapentin 300 mg 07/25/18 22:00 07/28/18 09:12 Neurontin - PO 300 mg BID LISA Administration Guaifenesin 10 ml 07/27/18 10:15 07/27/18 22:10 Robitussin - PO 10 ml Q6H PRN Administration COUGH Ceftriaxone Sodium 1 gm/ 50 mls @ 100 mls/hr 07/28/18 10:00 07/28/18 09:13 Dextrose IVPB 100 mls/hr DAILY LISA Administration Protocol Insulin Aspart 1 vial 07/25/18 16:30 07/28/18 06:45 Novolog Vial Sliding Scale - SQ Not Given [facility]S [facility] Protocol Insulin Detemir 15 units 07/26/18 12:14 07/28/18 06:37 Levemir Vial SQ 15 units BID@0700,2200 L[facility] Administration Lisinopril 5 mg 07/26/18 10:00 Prinivil PO DAILY LISA Melatonin 5 mg 07/28/18 09:03 Melatonin PO HS PRN INSOMNIA Metoprolol Tartrate 5 mg 07/27/18 08:31 Lopressor Injection - IVPUSH Q4H PRN TACHYCARDIA Multivitamins/Minerals/Vitamin C 1 tab 07/26/18 10:00 07/28/18 09:13 Tab-A-Vit - PO 1 tab DAILY [facility] Administration Oxycodone HCl 10 mg 07/25/18 16:34 07/28/18 08:36 Roxicodone - PO 10 mg Q6H PRN Administration PAIN LEVEL 4 - 6 Rivaroxaban 20 mg 07/26/18 18:00 07/27/18 17:17 Xarelto - PO 20 mg DAILY@1800 LISA Administration Zolpidem Tartrate 5 mg 07/25/18 16:22 07/27/18 22:19 Ambien - PO 5 mg HS PRN Administration INSOMNIA CBC, BMP 07/28/18 08:07 07/28/18 08:07 ECG 07/26 atrial fibrillation rate 138 CXR: possible R infiltrate CT chest: atelectasis with consolidation/airspace dz in lower lung olvera R>L as well as small neris pleural effusion, R >L c/w pneumonia echo here 06/2018: nl lv, rv tds, mild mr, nl rvsp echo here 06/01/17: nl lv, nl rv size, mild fernando, sev mr, mild tr, nl rvsp echo in office 05/09/2017: mild-mod lve, lvef 30-35%, global hk, nl rv size, mild dec rv fcn, mild lae, mod-sev mr mibi 05/2014: no ischemia, mildly reduced lvef cath 2006: normal cors tele: sinus, pvcs a/p: 71 f hx multiple PEs/DVTs s/p ivc filter and on xarelto dm, hld, htn, sys chf, here with shortness of breath. Shortness of breath, acute on chronic systolic HF exacerbation, PNA -nonisch CMP dx'd 2014 (L/RHC 8moderately elevated wedge (25) and corresponding elevation in PAPs (50/25); NORMAL CORONARIES -severely reduced cardiac index on that RHC -more recent echo reporting improved lvef, ? varying appearances related to TDS images (Definity used in office 2017) - normal reported LV (and only mild MR), with no signs of pulm HTN on echo done 06/25 here. -seen by us 07/25 (here for refractory back pain req surgical intervention). was euvolemic/stable on torsemide 20 qd, carvedilol 25 bid, lisinopril 5 qd. -tolerate sbp > 90 here - holding lisinopril for low BPs, continue carvedilol for now - infiltrate and pleural effusions on imaging - on lasix 40 mg IV BID, continue, monitor Cr, lytes, daily standing weights - abx for PNA per hospitalist, ID Atrial fibrillation - new diagnosis - on xarelto for DVT/PE, continue - on carvedilol -cont tele HTN: - stable, cont lisinopril, coreg h/o VTEs (DVTs and PEs): -s/p IVC filter -on lifelong AC per prior plan (felt to be hypercoagulable by heme) - continue xarelto chronic L/S spine disease/pain: -s/p repeat spine surgery 06/2018
--- NOTE | 2018-07-28 13:18 | PN ---
Physical Exam: SUBJECTIVE: Patient seen and examined this AM. She is still complaining of some SOB and cough, but states that she is feeling better today than yesterday. She is endorsing difficulty sleeping while in the hospital even with her home ambien. Discussed with patient and will add melatonin tonight to see if it helps. OBJECTIVE: Vital Signs Period Temp Pulse Resp BP Sys/Marcelo Pulse Ox Last 24 Hr 97.4 F-98.3 F 75-84 18-20 115-137/53-77 98-98 GENERAL: A&O, no acute distress HEAD: Normocephalic, atraumatic. EYES: PERRL, no scleral icterus EARS, NOSE, THROAT: oropharynx clear without exudates. Moist mucous membranes. NECK: supple without lymphadenopathy LUNGS: CTA b/l, wheezing resolved HEART: Regular rate and rhythm, normal S1 and S2 without murmur ABDOMEN: Obese, Soft, nontender to palpation, normoactive bowel sounds MUSCULOSKELETAL: No bony deformities or tenderness. Surgical site on lower spine with dressing clean and in tact EXTREMITIES: 2+ pulses, warm, well-perfused. No peripheral edema. NEUROLOGICAL: Cranial nerves II-XII grossly intact. Normal speech. PSYCHIATRIC: Cooperative. Good eye contact. Appropriate mood and affect. SKIN: Warm, dry, no rashes or lesions noted Laboratory Results - last 24 hr 07/27/18 07/27/18 07/28/18 17:13 21:28 05:37 WBC RBC Hgb Hct MCV MCH MCHC RDW Plt Count MPV Absolute Neuts (auto) Neutrophils % Lymphocytes % Monocytes % Eosinophils % Basophils % Nucleated RBC % Sodium Potassium Chloride Carbon Dioxide Anion Gap BUN Creatinine Creat Clearance w eGFR POC Glucometer 145 242 126 Random Glucose Calcium Phosphorus Magnesium 07/28/18 07/28/18 07/28/18 08:07 08:07 11:29 WBC 5.6 RBC 3.89 Hgb 10.6 L Hct 34.3 MCV 88.3 MCH 27.2 MCHC 30.8 L RDW 15.2 Plt Count 257 MPV 7.7 Absolute Neuts (auto) 2.6 Neutrophils % 47.4 Lymphocytes % 30.0 Monocytes % 15.7 H Eosinophils % 5.7 H Basophils % 1.2 Nucleated RBC % 0 Sodium 137 Potassium 3.7 Chloride 99 Carbon Dioxide 30 Anion Gap 8 BUN 18 Creatinine 0.8 Creat Clearance w eGFR > 60 POC Glucometer 137 Random Glucose 107 H Calcium 8.5 Phosphorus 3.8 Magnesium 2.4 Active Medications Generic Name Dose Route Start Last Admin Trade Name Freq PRN Reason Stop Dose Admin Acetaminophen 650 mg 07/25/18 16:34 07/27/18 22:19 Tylenol - PO 650 mg Q6H PRN Administration PAIN LEVEL 4 - 6 Benzocaine/Menthol 1 each 07/27/18 20:25 07/27/18 20:35 Cepacol Lozenge - MM 1 each PRN PRN Administration SORE THROAT Carvedilol 12.5 mg 07/26/18 11:00 07/28/18 09:13 Coreg - PO 12.5 mg BID LISA Administration Docusate Sodium 100 mg 07/25/18 16:22 Colace - PO Q12H PRN CONSTIPATION Furosemide 40 mg 07/26/18 06:00 07/28/18 06:36 Lasix Injection - IVPUSH 40 mg BID@0600,1400 LISA Administration Gabapentin 300 mg 07/25/18 22:00 07/28/18 09:12 Neurontin - PO 300 mg BID LISA Administration Guaifenesin 10 ml 07/27/18 10:15 07/27/18 22:10 Robitussin - PO 10 ml Q6H PRN Administration COUGH Ceftriaxone Sodium 1 gm/ 50 mls @ 100 mls/hr 07/28/18 10:00 07/28/18 09:13 Dextrose IVPB 100 mls/hr DAILY LISA Administration Protocol Insulin Aspart 1 vial 07/25/18 16:30 07/28/18 11:44 Novolog Vial Sliding Scale - SQ Not Given ACHS [facility] Protocol Insulin Detemir 15 units 07/26/18 12:14 07/28/18 06:37 Levemir Vial SQ 15 units BID@0700,2200 LISA Administration Lisinopril 5 mg 07/26/18 10:00 Prinivil PO DAILY LISA Melatonin 5 mg 07/28/18 09:03 Melatonin PO HS PRN INSOMNIA Metoprolol Tartrate 5 mg 07/27/18 08:31 Lopressor Injection - IVPUSH Q4H PRN TACHYCARDIA Multivitamins/Minerals/Vitamin C 1 tab 07/26/18 10:00 07/28/18 09:13 Tab-A-Vit - PO 1 tab DAILY LISA Administration Oxycodone HCl 10 mg 07/25/18 16:34 07/28/18 08:36 Roxicodone - PO 10 mg Q6H PRN Administration PAIN LEVEL 4 - 6 Rivaroxaban 20 mg 07/26/18 18:00 07/27/18 17:17 Xarelto - PO 20 mg DAILY@1800 LISA Administration Zolpidem Tartrate 5 mg 07/25/18 16:22 07/27/18 22:19 Ambien - PO 5 mg HS PRN Administration INSOMNIA ASSESSMENT/PLAN: 73 y/o F with h/o HTN, NIDDM, CHFpEF (06/19/18 EF ~50%), intractable lower back pain s/p L4-L5 laminectomy, L2-S1 seroma s/p drainage, 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 HCAP vs Fluid overload -Pt does not appear clinically fluid overloaded, though mild wheezes noted at the bases with effusions seen on CT chest -WBC count wnl and pt afebrile -EKG says QTc prolonged, however on manual calculation, not much greater than 440-450 -ID input appreciated -Ceftriaxone (day 3 of abx), can switch to PO Ceftin when ready for discharge -Cardiology consult appreciated -previous echo results noted -Lasix 40 mg IV BID -Strict I&Os -Chest PT -Robitussin 10 Q4 New Onset A-fib -Coreg 6.25 mg PO BID doubled to 12.5 mg PO BID -Cardiology consult appreciated -Pt denies hx of A-fib -likely brought about by acute stress secondary to infection -Lopressor 5 mg IV Q4 PRN Tachycardia >120 -Currently in Sinus rythm NIDDM -BGMs ACHS -Insulin sliding scale for glycemic control Lower Back Pain -s/p L4-L5 laminectomy -Roxicodone 10 mg PO Q6 -Neurontin 300 mg PO BID Hx DVT/PE -On Xarelto, with IVC filter ->10 yrs ago DVT Prophylaxis -Xarelto 20 mg PO Daily FEN -Fluids: none -Electrolytes: No electrolyte abnormalities, BMP in AM -Nutrition: Na controlled diet Disposition Telemetry Visit type - Emergency Visit Emergency Visit: Yes ED Registration Date: 07/25/18 Care time: The patient presented to the Emergency Department on the above date and was hospitalized for further evaluation of their emergent condition. - New Patient This patient is new to me today: No - Critical Care Critical Care patient: No
--- NOTE | 2018-07-28 14:05 | PN ---
Progress Note (short form) - Note Progress Note: less cough laying in bed Vital Signs Period Temp Pulse Resp BP Sys/Marcelo Pulse Ox Last 24 Hr 97.4 F-98.3 F 75-84 18-20 115-137/53-77 98-98 cor-rrr lungs crackles at bases abd soft,nt ext no edema CBC, BMP 07/28/18 08:07 07/28/18 08:07 Microbiology 07/25/18 23:59 Sputum - Expectorated Gram Stain - Final 07/25/18 23:59 Sputum - Expectorated Sputum Culture - Final NORMAL RESPIRATORY GRANT 07/25/18 14:30 Blood - Peripheral Venous Blood Culture - Preliminary NO GROWTH OBTAINED AFTER 48 HOURS, INCUBATION TO CONTINUE FOR 3 DAYS. 07/25/18 14:20 Blood - Peripheral Venous Blood Culture - Preliminary NO GROWTH OBTAINED AFTER 48 HOURS, INCUBATION TO CONTINUE FOR 3 DAYS. 07/26/18 14:00 Urine For Antigen Detection Legionella Antigen - Final 07/26/18 14:00 Urine For Antigen Detection Streptococcus pneumoniae Antigen (M - Final 07/25/18 16:30 Urine - Urine Clean Catch Urine Culture - Final 07/25/18 21:00 Serum Mycoplasma Antibody - Preliminary 07/25/18 21:00 Serum Mycoplasma Antibody - Preliminary Current Medications Acetaminophen (Tylenol -) 650 mg PO Q6H PRN PRN Reason: PAIN LEVEL 4 - 6 Last Admin: 07/27/18 22:19 Dose: 650 mg Benzocaine/Menthol (Cepacol Lozenge -) 1 each MM PRN PRN PRN Reason: SORE THROAT Last Admin: 07/27/18 20:35 Dose: 1 each Carvedilol (Coreg -) 12.5 mg PO BID [facility] Last Admin: 07/28/18 09:13 Dose: 12.5 mg Docusate Sodium (Colace -) 100 mg PO Q12H PRN PRN Reason: CONSTIPATION Furosemide (Lasix Injection -) 40 mg IVPUSH BID@0600,1400 [facility] Last Admin: 07/28/18 13:28 Dose: 40 mg Gabapentin (Neurontin -) 300 mg PO BID [facility] Last Admin: 07/28/18 09:12 Dose: 300 mg Guaifenesin (Robitussin -) 10 ml PO Q6H PRN PRN Reason: COUGH Last Admin: 07/27/18 22:10 Dose: 10 ml Ceftriaxone Sodium 1 gm/ (Dextrose) 50 mls @ 100 mls/hr IVPB DAILY [facility]; Protocol Last Admin: 07/28/18 09:13 Dose: 100 mls/hr Insulin Aspart (Novolog Vial Sliding Scale -) 1 vial SQ ACHS [facility]; Protocol Last Admin: 07/28/18 11:44 Dose: Not Given Insulin Detemir (Levemir Vial) 15 units SQ BID@0700,2200 [facility] Last Admin: 07/28/18 06:37 Dose: 15 units Lisinopril (Prinivil) 5 mg PO DAILY [facility] Melatonin (Melatonin) 5 mg PO HS PRN PRN Reason: INSOMNIA Metoprolol Tartrate (Lopressor Injection -) 5 mg IVPUSH Q4H PRN PRN Reason: TACHYCARDIA Multivitamins/Minerals/Vitamin C (Tab-A-Vit -) 1 tab PO DAILY [facility] Last Admin: 07/28/18 09:13 Dose: 1 tab Oxycodone HCl (Roxicodone -) 10 mg PO Q6H PRN PRN Reason: PAIN LEVEL 4 - 6 Last Admin: 07/28/18 08:36 Dose: 10 mg Rivaroxaban (Xarelto -) 20 mg PO DAILY@1800 [facility] Last Admin: 07/27/18 17:17 Dose: 20 mg Zolpidem Tartrate (Ambien -) 5 mg PO HS PRN PRN Reason: INSOMNIA Last Admin: 07/27/18 22:19 Dose: 5 mg a/p RLL pneumonia-normal grant, on ceftriaxone day #3 antibiotics can switch to po ceftin to finish 7 days when ready for discharge has completed 3 days zithromax CHF- on lasix new afib per cardiology plese call back if needed Problem List - Problems (1) Pneumonia Code(s): J18.9 - PNEUMONIA, UNSPECIFIED ORGANISM Qualifiers: Laterality: right Lung location: lower lobe of lung (2) New onset a-fib Code(s): I48.91 - UNSPECIFIED ATRIAL FIBRILLATION (3) CHF (congestive heart failure) Code(s): I50.9 - HEART FAILURE, UNSPECIFIED (4) Postoperative seroma Code(s): HFP5455 - (5) Allergy to multiple antibiotics Code(s): Z88.1 - ALLERGY STATUS TO OTHER ANTIBIOTIC AGENTS STATUS
[2018-07-28 16:47] LABS: BASO % 0.9 % (0-2.0); EOS % 4.2 % (0-4.5); HEMATOCRIT 33.9 % (32.4-45.2); HEMOGLOBIN 11.3 GM/dL (10.7-15.3); LYMPH % 20.6 % (8-40); MCH 29.2 pg (25.7-33.7); MCHC 33.2 g/dl (32.0-36.0); MEAN CELL VOLUME 87.7 fl (80-96); MEAN PLT VOLUME 7.7 fl (7.5-11.1); MONO % 13.5 % (3.8-10.2); NEUT % 60.8 % (42.8-82.8); PLATELET COUNT 281 K/MM3 (134-434); RBC 3.86 M/mm3 (3.60-5.2); RDW 15.5 % (11.6-15.6)
[2018-07-28] MEDS: RIVAROXABAN 20 MG TABLET PO SCH (17:35)
--- NOTE | 2018-07-28 18:36 | PN ---
Teaching Attending Note Name of Resident: Jeffery Burrell ATTENDING PHYSICIAN STATEMENT I saw and evaluated the patient. I reviewed the resident's note and discussed the case with the resident. I agree with the resident's findings and plan as documented with exceptions below. SUBJECTIVE: Patient seen and examined. breathing improved. Still with cough and dyspnea on exertion but overall better. No fevers/chills. OBJECTIVE: Vital Signs Period Temp Pulse Resp BP Sys/Marcelo Pulse Ox Last 24 Hr 97.6 F-98.3 F 75-98 18-20 109-137/64-77 93-98 Intake & Output 07/25/18 07/26/18 07/27/18 07/28/18 23:59 23:59 23:59 23:59 Intake Total 50 1300 1070 650 Output Total 250 250 400 250 Balance -200 1050 670 400 Weight 210 lb 214 lb 6 oz 213 lb 4 oz 215 lb General: lying in bed in no acute distress, able to talk in full sentences Chest; bibasilar rales, R>L Abdomen:soft, obese, NT Extremities: trace pedal edema Active Medications Acetaminophen (Tylenol -) 650 mg PO Q6H PRN PRN Reason: PAIN LEVEL 1-5 Benzocaine/Menthol (Cepacol Lozenge -) 1 each MM PRN PRN PRN Reason: SORE THROAT Last Admin: 07/27/18 20:35 Dose: 1 each Carvedilol (Coreg -) 12.5 mg PO BID [facility] Last Admin: 07/28/18 09:13 Dose: 12.5 mg Docusate Sodium (Colace -) 100 mg PO Q12H PRN PRN Reason: CONSTIPATION Furosemide (Lasix Injection -) 40 mg IVPUSH BID@0600,1400 [facility] Last Admin: 07/28/18 13:28 Dose: 40 mg Gabapentin (Neurontin -) 300 mg PO BID [facility] Last Admin: 07/28/18 09:12 Dose: 300 mg Guaifenesin (Robitussin -) 10 ml PO Q6H PRN PRN Reason: COUGH Last Admin: 07/27/18 22:10 Dose: 10 ml Ceftriaxone Sodium 1 gm/ (Dextrose) 50 mls @ 100 mls/hr IVPB DAILY [facility]; Protocol Last Admin: 07/28/18 09:13 Dose: 100 mls/hr Insulin Aspart (Novolog Vial Sliding Scale -) 1 vial SQ ACHS [facility]; Protocol Last Admin: 07/28/18 17:35 Dose: 2 units Insulin Detemir (Levemir Vial) 15 units SQ BID@0700,2200 [facility] Last Admin: 07/28/18 06:37 Dose: 15 units Lisinopril (Prinivil) 5 mg PO DAILY [facility] Melatonin (Melatonin) 5 mg PO HS PRN PRN Reason: INSOMNIA Metoprolol Tartrate (Lopressor Injection -) 5 mg IVPUSH Q4H PRN PRN Reason: TACHYCARDIA Multivitamins/Minerals/Vitamin C (Tab-A-Vit -) 1 tab PO DAILY [facility] Last Admin: 07/28/18 09:13 Dose: 1 tab Oxycodone HCl (Roxicodone -) 10 mg PO Q6H PRN PRN Reason: PAIN LEVEL 7 - 10 Rivaroxaban (Xarelto -) 20 mg PO DAILY@1800 [facility] Last Admin: 07/28/18 17:35 Dose: 20 mg Laboratory Results - last 24 hr 07/27/18 07/27/18 07/28/18 06:00 21:28 05:37 WBC RBC Hgb Hct MCV MCH MCHC RDW Plt Count MPV Absolute Neuts (auto) Neutrophils % Lymphocytes % Monocytes % Eosinophils % Basophils % Nucleated RBC % Sodium Potassium Chloride Carbon Dioxide Anion Gap BUN Creatinine Creat Clearance w eGFR POC Glucometer 242 126 Random Glucose Calcium Phosphorus Magnesium Cold Agglutinins Negative 07/28/18 07/28/18 07/28/18 08:07 08:07 11:29 WBC 5.6 RBC 3.89 Hgb 10.6 L Hct 34.3 MCV 88.3 MCH 27.2 MCHC 30.8 L RDW 15.2 Plt Count 257 MPV 7.7 Absolute Neuts (auto) 2.6 Neutrophils % 47.4 Lymphocytes % 30.0 Monocytes % 15.7 H Eosinophils % 5.7 H Basophils % 1.2 Nucleated RBC % 0 Sodium 137 Potassium 3.7 Chloride 99 Carbon Dioxide 30 Anion Gap 8 BUN 18 Creatinine 0.8 Creat Clearance w eGFR > 60 POC Glucometer 137 Random Glucose 107 H Calcium 8.5 Phosphorus 3.8 Magnesium 2.4 Cold Agglutinins 07/28/18 07/28/18 16:25 16:57 WBC 8.0 RBC 3.86 Hgb 11.3 Hct 33.9 MCV 87.7 MCH 29.2 MCHC 33.2 RDW 15.5 Plt Count 281 MPV 7.7 Absolute Neuts (auto) 4.9 Neutrophils % 60.8 D Lymphocytes % 20.6 D Monocytes % 13.5 H Eosinophils % 4.2 Basophils % 0.9 Nucleated RBC % 0 Sodium Potassium Chloride Carbon Dioxide Anion Gap BUN Creatinine Creat Clearance w eGFR POC Glucometer 184 Random Glucose Calcium Phosphorus Magnesium Cold Agglutinins Microbiology 07/25/18 14:30 Blood - Peripheral Venous Blood Culture - Preliminary NO GROWTH OBTAINED AFTER 72 HOURS, INCUBATION TO CONTINUE FOR 2 DAYS. 07/25/18 14:20 Blood - Peripheral Venous Blood Culture - Preliminary NO GROWTH OBTAINED AFTER 72 HOURS, INCUBATION TO CONTINUE FOR 2 DAYS. 07/25/18 23:59 Sputum - Expectorated Gram Stain - Final 07/25/18 23:59 Sputum - Expectorated Sputum Culture - Final NORMAL RESPIRATORY CHE 07/26/18 14:00 Urine For Antigen Detection Legionella Antigen - Final 07/26/18 14:00 Urine For Antigen Detection Streptococcus pneumoniae Antigen (M - Final 07/25/18 16:30 Urine - Urine Clean Catch Urine Culture - Final 07/25/18 21:00 Serum Mycoplasma Antibody - Preliminary 07/25/18 21:00 Serum Mycoplasma Antibody - Preliminary Telemetry with ventricular bigeminy/PVCs ASSESSMENT AND PLAN: 73 yof with PMHx of Non ischemic CM, recent Echo with preserved EF 50%, HTN, HLD , morbid obesity, h/o DVT/PE s/p IVC filter on xarelto recent L4-L5 laminectomy 06/19 readmitted with worsening back pain, found with seroma s/p IR guided drainage x 2, s/p Left SI joint injection last week, admitted with acute systolic HF exacerbation +/- Acute bronchitis/RLL HCAP -Acute Multifocal PNA PNA /Bronchitis -Acute on chronic systolic Heart failure exacerbation -Acute hypoxic respiratory distress -Afib with RVR, new onset, in NSR -Non ischemic CM, with preserved EF 50% -L4-L5 laminectomy 06/19 with post operative seroma s/p IR guided drainage x 2 -Chronic low back pain s/p Left SI injection last week -IDDM -HTN -HLD -Morbid obesity -?Prolonged QTc (corrected QT around 440) -Frequent PVCs/Ventricular Bigeminy Plan: Back in NSR. Coreg increased, continue. Cardiology input noted. Hold lisinopril to allow room for rate controlling agents, resume as tolerated. lasix 40 mg IV BID, strict I/Os, daily weights. Cardiology input appreciated. Transition to PO torsemide in AM. CT chest reviewed. ID input noted. ID input appreciated, Ceftriaxone day 4, s/p 3 days Azithromycin. QTc aroud 440 (confirmed with Dr. Brennan). Blood/sputum cx/Urine PNA studies neg. Rapid influenza swab neg. Expectorants/Chest PT. Hold off on nebs given risk for tachycardia. Continue xarelto. Levemir 15 units BID, ISS, diabetic diet. Titrate up as tolerated. Continue percocet/gabapentin. Ongoing PT as improves medically. DVTPPx on xarelto PT eval noted. No home oxygen needs. Plan for d/c home with services on Tuesday on pO abx if continues to improve. Plan discussed with patient in detail, all questions answered.
[2018-07-28] MEDS: guaiFENesin 200 MG/10 ML 10 ML UNIT-DOSE CUPS PO PRN (21:01)
[2018-07-28] MEDS: ACETAMINOPHEN 325 MG TABLET (FP) PO PRN (21:02)
[2018-07-28] MEDS: MELATONIN 5 MG TABLETS PO PRN (23:22)
[2018-07-28] MEDS: ZOLPIDEM TARTRATE 5 MG TABLET PO PRN (23:22)
[2018-07-29] MEDS: INSULIN SLIDING SCALE (NOVOLOG) 1 VIAL SQ SCH ×4 (06:09→22:05)
[2018-07-29] MEDS: INSULIN (LEVEMIR) 100 UNITS/ML UNITS SQ SCH ×2 (06:19→22:05)
[2018-07-29] MEDS: FUROSEMIDE 40 MG/4 ML INJECTABLE VIAL IVPUSH SCH ×2 (06:29→10:54)
[2018-07-29 08:21] LABS: ANION GAP 9 MMOL/L (8-16); BLOOD UREA NITROGEN 22 mg/dL (7-18); CALCIUM 8.4 mg/dL (8.5-10.1); CHLORIDE 98 mmol/L (98-107); CO2 30 mmol/L (21-32); CREATININE 0.7 mg/dL (0.55-1.3); GLUCOSE,RANDOM 93 mg/dL (74-106); POTASSIUM 3.5 mmol/L (3.5-5.1); SODIUM 138 mmol/L (136-145)
--- NOTE | 2018-07-29 08:54 | PN ---
Physical Exam: SUBJECTIVE: Patient seen and examined this AM. She states she is feeling much better and expresses interest in going home soon. She states her SOB is much better than it has been as is her cough. OBJECTIVE: Vital Signs Period Temp Pulse Resp BP Sys/Marcelo Pulse Ox Last 24 Hr 97.5 F-98.1 F 68-98 18-20 109-127/58-82 93-98 GENERAL: A&O, no acute distress HEAD: Normocephalic, atraumatic. EYES: PERRL, no scleral icterus EARS, NOSE, THROAT: oropharynx clear without exudates. Moist mucous membranes. NECK: supple without lymphadenopathy LUNGS: CTA b/l, wheezing resolved HEART: Regular rate and rhythm, normal S1 and S2 without murmur ABDOMEN: Obese, Soft, nontender to palpation, normoactive bowel sounds MUSCULOSKELETAL: No bony deformities or tenderness. Surgical site on lower spine with dressing clean and in tact EXTREMITIES: 2+ pulses, warm, well-perfused. No peripheral edema. NEUROLOGICAL: Cranial nerves II-XII grossly intact. Normal speech. PSYCHIATRIC: Cooperative. Good eye contact. Appropriate mood and affect. SKIN: Warm, dry, no rashes or lesions noted Laboratory Results - last 24 hr 07/27/18 07/28/18 07/28/18 06:00 08:07 08:07 WBC 5.6 RBC 3.89 Hgb 10.6 L Hct 34.3 MCV 88.3 MCH 27.2 MCHC 30.8 L RDW 15.2 Plt Count 257 MPV 7.7 Absolute Neuts (auto) 2.6 Neutrophils % 47.4 Lymphocytes % 30.0 Monocytes % 15.7 H Eosinophils % 5.7 H Basophils % 1.2 Nucleated RBC % 0 Sodium 137 Potassium 3.7 Chloride 99 Carbon Dioxide 30 Anion Gap 8 BUN 18 Creatinine 0.8 Creat Clearance w eGFR > 60 POC Glucometer Random Glucose 107 H Calcium 8.5 Phosphorus 3.8 Magnesium 2.4 Cold Agglutinins Negative 07/28/18 07/28/18 07/28/18 11:29 16:25 16:57 WBC 8.0 RBC 3.86 Hgb 11.3 Hct 33.9 MCV 87.7 MCH 29.2 MCHC 33.2 RDW 15.5 Plt Count 281 MPV 7.7 Absolute Neuts (auto) 4.9 Neutrophils % 60.8 D Lymphocytes % 20.6 D Monocytes % 13.5 H Eosinophils % 4.2 Basophils % 0.9 Nucleated RBC % 0 Sodium Potassium Chloride Carbon Dioxide Anion Gap BUN Creatinine Creat Clearance w eGFR POC Glucometer 137 184 Random Glucose Calcium Phosphorus Magnesium Cold Agglutinins 07/28/18 07/29/18 07/29/18 20:39 05:40 06:30 WBC RBC Hgb Hct MCV MCH MCHC RDW Plt Count MPV Absolute Neuts (auto) Neutrophils % Lymphocytes % Monocytes % Eosinophils % Basophils % Nucleated RBC % Sodium 138 Potassium 3.5 Chloride 98 Carbon Dioxide 30 Anion Gap 9 BUN 22 H Creatinine 0.7 Creat Clearance w eGFR > 60 POC Glucometer 202 98 Random Glucose 93 Calcium 8.4 L Phosphorus Magnesium Cold Agglutinins Active Medications Generic Name Dose Route Start Last Admin Trade Name Freq PRN Reason Stop Dose Admin Acetaminophen 650 mg 07/28/18 17:23 07/28/18 21:02 Tylenol - PO 650 mg Q6H PRN Administration PAIN LEVEL 1-5 Benzocaine/Menthol 1 each 07/27/18 20:25 07/27/18 20:35 Cepacol Lozenge - MM 1 each PRN PRN Administration SORE THROAT Carvedilol 12.5 mg 07/26/18 11:00 07/28/18 21:01 Coreg - PO 12.5 mg BID LISA Administration Docusate Sodium 100 mg 07/25/18 16:22 Colace - PO Q12H PRN CONSTIPATION Furosemide 40 mg 07/26/18 06:00 07/29/18 06:29 Lasix Injection - IVPUSH 40 mg BID@0600,1400 LISA Administration Gabapentin 300 mg 07/25/18 22:00 07/28/18 21:01 Neurontin - PO 300 mg BID LISA Administration Guaifenesin 10 ml 07/27/18 10:15 07/28/18 21:01 Robitussin - PO 10 ml Q6H PRN Administration COUGH Ceftriaxone Sodium 1 gm/ 50 mls @ 100 mls/hr 07/28/18 10:00 07/28/18 09:13 Dextrose IVPB 100 mls/hr DAILY LISA Administration Protocol Insulin Aspart 1 vial 07/25/18 16:30 07/29/18 06:09 Novolog Vial Sliding Scale - SQ Not Given ACHS [facility] Protocol Insulin Detemir 15 units 07/26/18 12:14 07/29/18 06:19 Levemir Vial SQ Not Given BID@0700,2200 [facility] Lisinopril 5 mg 07/26/18 10:00 Prinivil PO DAILY LISA Melatonin 5 mg 07/28/18 09:03 07/28/18 23:22 Melatonin PO 5 mg HS PRN Administration INSOMNIA Metoprolol Tartrate 5 mg 07/27/18 08:31 Lopressor Injection - IVPUSH Q4H PRN TACHYCARDIA Multivitamins/Minerals/Vitamin C 1 tab 07/26/18 10:00 07/28/18 09:13 Tab-A-Vit - PO 1 tab DAILY [facility] Administration Oxycodone HCl 10 mg 07/28/18 17:24 07/28/18 21:02 Roxicodone - PO 10 mg Q6H PRN Administration PAIN LEVEL 7 - 10 Potassium Chloride 40 meq 07/29/18 10:00 K-Dur - PO 07/29/18 22:01 BID [facility] Rivaroxaban 20 mg 07/26/18 18:00 07/28/18 17:35 Xarelto - PO 20 mg DAILY@1800 [facility] Administration Zolpidem Tartrate 5 mg 07/28/18 22:00 07/28/18 23:22 Ambien - PO 5 mg HS PRN Administration INSOMNIA ASSESSMENT/PLAN: HCAP vs Fluid overload -Pt does not appear clinically fluid overloaded, though mild wheezes noted at the bases with effusions seen on CT chest -WBC count wnl and pt afebrile -EKG reads QTc prolonged, however on manual calculation, not much greater than 440-450 -ID input appreciated -Ceftriaxone (day 4 of abx), can switch to PO Ceftin when ready for discharge, -Cardiology consult appreciated -previous echo results noted -Lasix 40 mg IV BID decreased to Lasix 40 mg IV Daily, elevation of BUN noted -Strict I&Os -Chest PT -Robitussin 10 Q4 New Onset A-fib -Coreg 6.25 mg PO BID doubled to 12.5 mg PO BID -Cardiology consult appreciated -Pt denies hx of A-fib -likely brought about by acute stress secondary to infection -Lopressor 5 mg IV Q4 PRN Tachycardia >120, has not required -Currently in Sinus rythm -Already on AC NIDDM -BGMs ACHS -Insulin sliding scale for glycemic control Lower Back Pain -s/p L4-L5 laminectomy -Roxicodone 10 mg PO Q6 -Neurontin 300 mg PO BID 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 - New Patient This patient is new to me today: No - Critical Care Critical Care patient: No
[2018-07-29] MEDS ORDERED: cefTRIAXone SODIUM 1 GM VIAL ONE (09:16)
[2018-07-29] MEDS ORDERED: DEXTROSE 5%-WATER - 50 ML IVPB ONE (09:16)
[2018-07-29 09:26] LABS: BASO % 1.1 % (0-2.0); EOS % 5.1 % (0-4.5); HEMATOCRIT 35.5 % (32.4-45.2); HEMOGLOBIN 11.2 GM/dL (10.7-15.3); LYMPH % 24.5 % (8-40); MCH 27.6 pg (25.7-33.7); MCHC 31.4 g/dl (32.0-36.0); MEAN CELL VOLUME 87.7 fl (80-96); MEAN PLT VOLUME 7.7 fl (7.5-11.1); NEUT % 57.3 % (42.8-82.8); PLATELET COUNT 286 K/MM3 (134-434); RBC 4.04 M/mm3 (3.60-5.2); RDW 15.7 % (11.6-15.6); WHITE BLOOD COUNT 6.6 K/mm3 (4.0-10.0)
[2018-07-29] MEDS: MULTIVITAMINS (DAILY MVI) TABLET (FP) PO SCH (09:36)
[2018-07-29] MEDS: POTASSIUM CHLORIDE TABS 20 MEQ TABLET.ER (FP) PO SCH ×2 (09:36→22:06)
[2018-07-29] MEDS: CARVEDILOL 12.5 MG TABLET (FP) PO SCH (09:37)
[2018-07-29] MEDS: GABAPENTIN 300 MG CAPSULE (FP) PO SCH ×2 (09:37→22:06)
[2018-07-29] MEDS: CEFTRIAXONE 1 GM in DEXTROSE 5%-WATER - 50 ML IVPB SCH (09:37)
--- NOTE | 2018-07-29 10:08 | PN ---
Progress Note (short form) - Note Progress Note: - Note Progress Note: s: sob improving. no cp palps dizzy o: Vital Signs Period Temp Pulse Resp BP Sys/Marcelo Pulse Ox Last 24 Hr 97.5 F-98.1 F 68-98 18-20 109-127/58-82 93-93 Constitutional: Yes: Well Nourished, No Distress Eyes: No: Sclera Icterus Respiratory: Yes:mild wheezing, nl eff Gastrointestinal: Yes: Normal Bowel Sounds. No: Distention, Hepatomegaly, Palpable Mass, Tenderness Cardiovascular: Yes: Regular Rate and Rhythm JVD: No Carotid Bruit: No PMI: Non-Displaced Heart Sounds: Yes: S1, S2. No: Gallop Murmur: No: Systolic Murmur, Diastolic Murmur Extremities: No: Cold, Cyanosis Edema: No Integumentary: No: Jaundice diaphoresis Neurological: Yes: Alert, Oriented (x3) Psychiatric: No: Agitated Current Medications Acetaminophen (Tylenol -) 650 mg PO Q6H PRN PRN Reason: PAIN LEVEL 1-5 Last Admin: 07/28/18 21:02 Dose: 650 mg Benzocaine/Menthol (Cepacol Lozenge -) 1 each MM PRN PRN PRN Reason: SORE THROAT Last Admin: 07/27/18 20:35 Dose: 1 each Carvedilol (Coreg -) 12.5 mg PO BID [facility] Last Admin: 07/29/18 09:37 Dose: 12.5 mg Docusate Sodium (Colace -) 100 mg PO Q12H PRN PRN Reason: CONSTIPATION Furosemide (Lasix Injection -) 40 mg IVPUSH DAILY [facility] Gabapentin (Neurontin -) 300 mg PO BID [facility] Last Admin: 07/29/18 09:37 Dose: 300 mg Guaifenesin (Robitussin -) 10 ml PO Q6H PRN PRN Reason: COUGH Last Admin: 07/28/18 21:01 Dose: 10 ml Ceftriaxone Sodium 1 gm/ (Dextrose) 50 mls @ 100 mls/hr IVPB DAILY [facility]; Protocol Last Admin: 07/29/18 09:37 Dose: 100 mls/hr Insulin Aspart (Novolog Vial Sliding Scale -) 1 vial SQ ACHS [facility]; Protocol Last Admin: 07/29/18 06:09 Dose: Not Given Insulin Detemir (Levemir Vial) 15 units SQ BID@0700,2200 [facility] Last Admin: 07/29/18 06:19 Dose: Not Given Lisinopril (Prinivil) 5 mg PO DAILY [facility] Melatonin (Melatonin) 5 mg PO HS PRN PRN Reason: INSOMNIA Last Admin: 07/28/18 23:22 Dose: 5 mg Metoprolol Tartrate (Lopressor Injection -) 5 mg IVPUSH Q4H PRN PRN Reason: TACHYCARDIA Multivitamins/Minerals/Vitamin C (Tab-A-Vit -) 1 tab PO DAILY [facility] Last Admin: 07/29/18 09:36 Dose: 1 tab Oxycodone HCl (Roxicodone -) 10 mg PO Q6H PRN PRN Reason: PAIN LEVEL 7 - 10 Last Admin: 07/28/18 21:02 Dose: 10 mg Potassium Chloride (K-Dur -) 40 meq PO BID [facility] Stop: 07/29/18 22:01 Last Admin: 07/29/18 09:36 Dose: 40 meq Rivaroxaban (Xarelto -) 20 mg PO DAILY@1800 [facility] Last Admin: 07/28/18 17:35 Dose: 20 mg Zolpidem Tartrate (Ambien -) 5 mg PO HS PRN PRN Reason: INSOMNIA Last Admin: 07/28/18 23:22 Dose: 5 mg ECG 07/26 atrial fibrillation rate 138 CXR: possible R infiltrate CT chest: atelectasis with consolidation/airspace dz in lower lung olvera R>L as well as small neris pleural effusion, R >L c/w pneumonia echo here 06/2018: nl lv, rv tds, mild mr, nl rvsp echo here 06/01/17: nl lv, nl rv size, mild fernando, sev mr, mild tr, nl rvsp echo in office 05/09/2017: mild-mod lve, lvef 30-35%, global hk, nl rv size, mild dec rv fcn, mild lae, mod-sev mr mibi 05/2014: no ischemia, mildly reduced lvef cath 2006: normal cors tele: sinus, pvcs a/p: 71 f hx multiple PEs/DVTs s/p ivc filter and on xarelto dm, hld, htn, sys chf, here with shortness of breath. Shortness of breath, acute on chronic systolic HF exacerbation, PNA -nonisch CMP dx'd 2014 (L/RHC 8moderately elevated wedge (25) and corresponding elevation in PAPs (50/25); NORMAL CORONARIES -severely reduced cardiac index on that RHC -more recent echo reporting improved lvef, ? varying appearances related to TDS images (Definity used in office 2017) - normal reported LV (and only mild MR), with no signs of pulm HTN on echo done 06/25 here. -seen by us 07/25 (here for refractory back pain req surgical intervention). was euvolemic/stable on torsemide 20 qd, carvedilol 25 bid, lisinopril 5 qd. -tolerate sbp > 90 here - holding lisinopril for low BPs, continue carvedilol for now - infiltrate and pleural effusions on imaging - on lasix 40 mg IV BID, monitor Cr, lytes, daily standing weights - continue, symptoms improving, Cr stable - abx for PNA per hospitalist, ID Atrial fibrillation - new diagnosis - on xarelto for DVT/PE, continue - on carvedilol - increased to 25 mg BID, prior home dose, for improved rate control -cont tele HTN: - stable, cont lisinopril, coreg h/o VTEs (DVTs and PEs): -s/p IVC filter -on lifelong AC per prior plan (felt to be hypercoagulable by heme) - continue xarelto chronic L/S spine disease/pain: -s/p repeat spine surgery 06/2018
[2018-07-29] MEDS: oxyCODONE HCL 5 MG TABLET PO PRN ×2 (10:52→17:07)
[2018-07-29] MEDS: ACETAMINOPHEN 325 MG TABLET (FP) PO PRN ×2 (10:53→17:07)
[2018-07-29] MEDS ORDERED: CARVEDILOL 12.5 MG TABLET (FP) PO ONE (12:00)
--- NOTE | 2018-07-29 14:29 | PN ---
Teaching Attending Note Name of Resident: Jeffery Burrell ATTENDING PHYSICIAN STATEMENT I saw and evaluated the patient. I reviewed the resident's note and discussed the case with the resident. I agree with the resident's findings and plan as documented with exceptions below. SUBJECTIVE: Patient seen and examined. breathing/cough improved, no new complaints, eager to go home. OBJECTIVE: Vital Signs Period Temp Pulse Resp BP Sys/Marcelo Pulse Ox Last 24 Hr 97.4 F-98.1 F 68-95 18-20 104-127/57-82 93-97 Intake & Output 07/26/18 07/27/18 07/28/18 07/29/18 23:59 23:59 23:59 23:59 Intake Total 1300 1070 840 740 Output Total 250 400 250 Balance 1050 670 590 740 Weight 214 lb 6 oz 213 lb 4 oz 215 lb 215 lb General: lying in bed in no acute distress Chest: bibasilar rales R>L, improved air entry Abdomen;Soft, obese, NT Extremities: trace pedal edema Active Medications Acetaminophen (Tylenol -) 650 mg PO Q6H PRN PRN Reason: PAIN LEVEL 1-5 Last Admin: 07/29/18 10:53 Dose: 650 mg Benzocaine/Menthol (Cepacol Lozenge -) 1 each MM PRN PRN PRN Reason: SORE THROAT Last Admin: 07/27/18 20:35 Dose: 1 each Carvedilol (Coreg -) 25 mg PO BID [facility] Docusate Sodium (Colace -) 100 mg PO Q12H PRN PRN Reason: CONSTIPATION Furosemide (Lasix Injection -) 40 mg IVPUSH DAILY [facility] Last Admin: 07/29/18 10:54 Dose: 40 mg Gabapentin (Neurontin -) 300 mg PO BID [facility] Last Admin: 07/29/18 09:37 Dose: 300 mg Guaifenesin (Robitussin -) 10 ml PO Q6H PRN PRN Reason: COUGH Last Admin: 07/28/18 21:01 Dose: 10 ml Ceftriaxone Sodium 1 gm/ (Dextrose) 50 mls @ 100 mls/hr IVPB DAILY [facility]; Protocol Last Admin: 07/29/18 09:37 Dose: 100 mls/hr Insulin Aspart (Novolog Vial Sliding Scale -) 1 vial SQ ACHS [facility]; Protocol Last Admin: 07/29/18 11:14 Dose: 4 units Insulin Detemir (Levemir Vial) 15 units SQ BID@0700,2200 [facility] Last Admin: 07/29/18 06:19 Dose: Not Given Lisinopril (Prinivil) 5 mg PO DAILY [facility] Melatonin (Melatonin) 5 mg PO HS PRN PRN Reason: INSOMNIA Last Admin: 07/28/18 23:22 Dose: 5 mg Metoprolol Tartrate (Lopressor Injection -) 5 mg IVPUSH Q4H PRN PRN Reason: TACHYCARDIA Multivitamins/Minerals/Vitamin C (Tab-A-Vit -) 1 tab PO DAILY [facility] Last Admin: 07/29/18 09:36 Dose: 1 tab Oxycodone HCl (Roxicodone -) 10 mg PO Q6H PRN PRN Reason: PAIN LEVEL 7 - 10 Last Admin: 07/29/18 10:52 Dose: 10 mg Potassium Chloride (K-Dur -) 40 meq PO BID [facility] Stop: 07/29/18 22:01 Last Admin: 07/29/18 09:36 Dose: 40 meq Rivaroxaban (Xarelto -) 20 mg PO DAILY@1800 [facility] Last Admin: 07/28/18 17:35 Dose: 20 mg Zolpidem Tartrate (Ambien -) 5 mg PO HS PRN PRN Reason: INSOMNIA Last Admin: 07/28/18 23:22 Dose: 5 mg Laboratory Results - last 24 hr 07/27/18 07/28/18 07/28/18 06:00 16:25 16:57 WBC 8.0 RBC 3.86 Hgb 11.3 Hct 33.9 MCV 87.7 MCH 29.2 MCHC 33.2 RDW 15.5 Plt Count 281 MPV 7.7 Absolute Neuts (auto) 4.9 Neutrophils % 60.8 D Lymphocytes % 20.6 D Monocytes % 13.5 H Eosinophils % 4.2 Basophils % 0.9 Nucleated RBC % 0 Sodium Potassium Chloride Carbon Dioxide Anion Gap BUN Creatinine Creat Clearance w eGFR POC Glucometer 184 Random Glucose Calcium Cold Agglutinins Negative 07/28/18 07/29/18 07/29/18 20:39 05:40 06:30 WBC RBC Hgb Hct MCV MCH MCHC RDW Plt Count MPV Absolute Neuts (auto) Neutrophils % Lymphocytes % Monocytes % Eosinophils % Basophils % Nucleated RBC % Sodium 138 Potassium 3.5 Chloride 98 Carbon Dioxide 30 Anion Gap 9 BUN 22 H Creatinine 0.7 Creat Clearance w eGFR > 60 POC Glucometer 202 98 Random Glucose 93 Calcium 8.4 L Cold Agglutinins 07/29/18 07/29/18 08:45 11:12 WBC 6.6 RBC 4.04 Hgb 11.2 Hct 35.5 MCV 87.7 MCH 27.6 MCHC 31.4 L RDW 15.7 H Plt Count 286 MPV 7.7 Absolute Neuts (auto) 3.8 Neutrophils % 57.3 Lymphocytes % 24.5 Monocytes % 12.0 H Eosinophils % 5.1 H Basophils % 1.1 Nucleated RBC % 0 Sodium Potassium Chloride Carbon Dioxide Anion Gap BUN Creatinine Creat Clearance w eGFR POC Glucometer 250 Random Glucose Calcium Cold Agglutinins Microbiology 07/25/18 21:00 Serum Mycoplasma Antibody - Final 07/25/18 21:00 Serum Mycoplasma Antibody - Final 07/25/18 14:30 Blood - Peripheral Venous Blood Culture - Preliminary NO GROWTH OBTAINED AFTER 72 HOURS, INCUBATION TO CONTINUE FOR 2 DAYS. 07/25/18 14:20 Blood - Peripheral Venous Blood Culture - Preliminary NO GROWTH OBTAINED AFTER 72 HOURS, INCUBATION TO CONTINUE FOR 2 DAYS. 07/25/18 23:59 Sputum - Expectorated Gram Stain - Final 07/25/18 23:59 Sputum - Expectorated Sputum Culture - Final NORMAL RESPIRATORY CHE 07/26/18 14:00 Urine For Antigen Detection Legionella Antigen - Final 07/26/18 14:00 Urine For Antigen Detection Streptococcus pneumoniae Antigen (M - Final 07/25/18 16:30 Urine - Urine Clean Catch Urine Culture - Final ASSESSMENT AND PLAN: 73 yof with PMHx of Non ischemic CM, recent Echo with preserved EF 50%, HTN, HLD , morbid obesity, h/o DVT/PE s/p IVC filter on xarelto recent L4-L5 laminectomy 06/19 readmitted with worsening back pain, found with seroma s/p IR guided drainage x 2, s/p Left SI joint injection last week, admitted with acute systolic HF exacerbation +/- Acute bronchitis/RLL HCAP -Acute Multifocal PNA PNA /Bronchitis -Acute on chronic systolic Heart failure exacerbation -Acute hypoxic respiratory distress -Afib with RVR, new onset, in NSR -Non ischemic CM, with preserved EF 50% -L4-L5 laminectomy 06/19 with post operative seroma s/p IR guided drainage x 2 -Chronic low back pain s/p Left SI injection last week -IDDM -HTN -HLD -Morbid obesity -?Prolonged QTc (corrected QT around 440) -Frequent PVCs/Ventricular Bigeminy Plan: Back in NSR. Coreg increased, continue. Cardiology input noted. Resume lisinopril in 24 hours. Decrease lasix to 40 mg IV daily,transtion to home torsemide in 24 hours. Strict I/Os, daily weights. Cardiology input appreciated. CT chest reviewed. ID input noted. ID input appreciated, Ceftriaxone day 5, s/p 3 days Azithromycin. Transition to PO ceftin on dc for a 10 day course. QTc aroud 440 (confirmed with Dr. Brennan). Blood/sputum cx/Urine PNA studies neg. Rapid influenza swab neg. Expectorants/Chest PT. Hold off on nebs given risk for tachycardia. Continue xarelto. Levemir 15 units BID, ISS, diabetic diet. Titrate up as tolerated. Continue percocet/gabapentin. Ongoing PT as improves medically. DVTPPx on xarelto PT eval noted. No home oxygen needs. Plan for d/c home with services tomorrow on pO abx if continues to improve. Plan discussed with patient, nursing and CM in detail, all questions answered.
[2018-07-29] MEDS ORDERED: PT OWN MED DRAWER 7, Y5N ONE (17:02)
[2018-07-29] MEDS: RIVAROXABAN 20 MG TABLET PO SCH (17:08)
[2018-07-29] MEDS: CARVEDILOL 25 MG TABLET (FP) PO SCH (22:06)
[2018-07-29] MEDS: ZOLPIDEM TARTRATE 5 MG TABLET PO PRN (23:16)
[2018-07-29] MEDS: MELATONIN 5 MG TABLETS PO PRN (23:16)
[2018-07-30] MEDS: INSULIN (LEVEMIR) 100 UNITS/ML UNITS SQ SCH (06:33)
[2018-07-30] MEDS: INSULIN SLIDING SCALE (NOVOLOG) 1 VIAL SQ SCH ×2 (06:33→12:33)
[2018-07-30 07:50] LABS: ANION GAP 5 MMOL/L (8-16); BLOOD UREA NITROGEN 23 mg/dL (7-18); CALCIUM 8.3 mg/dL (8.5-10.1); CHLORIDE 100 mmol/L (98-107); CO2 33 mmol/L (21-32); CREATININE 0.8 mg/dL (0.55-1.3); GLUCOSE,RANDOM 184 mg/dL (74-106); POTASSIUM 4.8 mmol/L (3.5-5.1); SODIUM 137 mmol/L (136-145)
[2018-07-30] MEDS ORDERED: cefTRIAXone SODIUM 1 GM VIAL ONE (09:15)
[2018-07-30] MEDS ORDERED: DEXTROSE 5%-WATER - 50 ML IVPB ONE (09:15)
[2018-07-30] MEDS: FUROSEMIDE 40 MG/4 ML INJECTABLE VIAL IVPUSH SCH (09:43)
[2018-07-30] MEDS: oxyCODONE HCL 5 MG TABLET PO PRN (09:43)
[2018-07-30] MEDS: CEFTRIAXONE 1 GM in DEXTROSE 5%-WATER - 50 ML IVPB SCH (09:43)
[2018-07-30] MEDS: CARVEDILOL 25 MG TABLET (FP) PO SCH (09:43)
[2018-07-30] MEDS: MULTIVITAMINS (DAILY MVI) TABLET (FP) PO SCH (09:44)
[2018-07-30] MEDS: GABAPENTIN 300 MG CAPSULE (FP) PO SCH (09:45)
--- NOTE | 2018-07-30 09:53 | PN ---
Progress Note (short form) - Note Progress Note: - Note Progress Note: s: sob improving. no cp palps dizzy. wants to go home o: Vital Signs Period Temp Pulse Resp BP Sys/Marcelo Pulse Ox Last 24 Hr 97.3 F-98.0 F 78-95 18-20 104-145/55-79 96 Constitutional: Yes: Well Nourished, No Distress Eyes: No: Sclera Icterus Respiratory: Yes:mild wheezing, nl eff Gastrointestinal: Yes: Normal Bowel Sounds. No: Distention, Hepatomegaly, Palpable Mass, Tenderness Cardiovascular: Yes: Regular Rate and Rhythm JVD: No Carotid Bruit: No PMI: Non-Displaced Heart Sounds: Yes: S1, S2. No: Gallop Murmur: No: Systolic Murmur, Diastolic Murmur Extremities: No: Cold, Cyanosis Edema: No Integumentary: No: Jaundice diaphoresis Neurological: Yes: Alert, Oriented (x3) Psychiatric: No: Agitated Current Medications Acetaminophen (Tylenol -) 650 mg PO Q6H PRN PRN Reason: PAIN LEVEL 1-5 Last Admin: 07/29/18 17:07 Dose: 650 mg Benzocaine/Menthol (Cepacol Lozenge -) 1 each MM PRN PRN PRN Reason: SORE THROAT Last Admin: 07/27/18 20:35 Dose: 1 each Carvedilol (Coreg -) 25 mg PO BID [facility] Last Admin: 07/30/18 09:43 Dose: 25 mg Docusate Sodium (Colace -) 100 mg PO Q12H PRN PRN Reason: CONSTIPATION Furosemide (Lasix Injection -) 40 mg IVPUSH DAILY [facility] Last Admin: 07/30/18 09:43 Dose: 40 mg Gabapentin (Neurontin -) 300 mg PO BID [facility] Last Admin: 07/30/18 09:45 Dose: 300 mg Guaifenesin (Robitussin -) 10 ml PO Q6H PRN PRN Reason: COUGH Last Admin: 07/28/18 21:01 Dose: 10 ml Ceftriaxone Sodium 1 gm/ (Dextrose) 50 mls @ 100 mls/hr IVPB DAILY [facility]; Protocol Last Admin: 07/30/18 09:43 Dose: 100 mls/hr Insulin Aspart (Novolog Vial Sliding Scale -) 1 vial SQ ACHS [facility]; Protocol Last Admin: 07/30/18 06:33 Dose: 2 units Insulin Detemir (Levemir Vial) 15 units SQ BID@0700,2200 [facility] Last Admin: 07/30/18 06:33 Dose: 15 units Lisinopril (Prinivil) 5 mg PO DAILY [facility] Melatonin (Melatonin) 5 mg PO HS PRN PRN Reason: INSOMNIA Last Admin: 07/29/18 23:16 Dose: 5 mg Metoprolol Tartrate (Lopressor Injection -) 5 mg IVPUSH Q4H PRN PRN Reason: TACHYCARDIA Multivitamins/Minerals/Vitamin C (Tab-A-Vit -) 1 tab PO DAILY [facility] Last Admin: 07/30/18 09:44 Dose: 1 tab Oxycodone HCl (Roxicodone -) 10 mg PO Q6H PRN PRN Reason: PAIN LEVEL 7 - 10 Last Admin: 07/30/18 09:43 Dose: 10 mg Rivaroxaban (Xarelto -) 20 mg PO DAILY@1800 [facility] Last Admin: 07/29/18 17:08 Dose: 20 mg Zolpidem Tartrate (Ambien -) 5 mg PO HS PRN PRN Reason: INSOMNIA Last Admin: 07/29/18 23:16 Dose: 5 mg ECG 07/26 atrial fibrillation rate 138 CXR: possible R infiltrate CT chest: atelectasis with consolidation/airspace dz in lower lung olvera R>L as well as small neris pleural effusion, R >L c/w pneumonia echo here 06/2018: nl lv, rv tds, mild mr, nl rvsp echo here 06/01/17: nl lv, nl rv size, mild fernando, sev mr, mild tr, nl rvsp echo in office 05/09/2017: mild-mod lve, lvef 30-35%, global hk, nl rv size, mild dec rv fcn, mild lae, mod-sev mr mibi 05/2014: no ischemia, mildly reduced lvef cath 2005: normal cors tele: sinus, pvcs a/p: 71 f hx multiple PEs/DVTs s/p ivc filter and on xarelto dm, hld, htn, sys chf, here with shortness of breath. Shortness of breath, acute on chronic systolic HF exacerbation, PNA -nonisch CMP dx'd 2014 (L/RHC 8moderately elevated wedge (25) and corresponding elevation in PAPs (50/25); NORMAL CORONARIES -severely reduced cardiac index on that RHC -more recent echo reporting improved lvef, ? varying appearances related to TDS images (Definity used in office 2017) - normal reported LV (and only mild MR), with no signs of pulm HTN on echo done 06/25 here. -seen by us 07/25 (here for refractory back pain req surgical intervention). was euvolemic/stable on torsemide 20 qd, carvedilol 25 bid, lisinopril 5 qd. -tolerate sbp > 90 here - holding lisinopril for low BPs, continue carvedilol for now - infiltrate and pleural effusions on imaging - on lasix 40 mg IV daily with improvement in dyspnea, will transition to home torsemide - was taking torsemide 50 mg daily - abx for PNA per hospitalist, ID Atrial fibrillation - new diagnosis - on xarelto for DVT/PE, continue - on carvedilol - increased to 25 mg BID, prior home dose, for improved rate control -cont tele HTN: - stable, cont lisinopril, coreg h/o VTEs (DVTs and PEs): -s/p IVC filter -on lifelong AC per prior plan (felt to be hypercoagulable by heme) - continue xarelto chronic L/S spine disease/pain: -s/p repeat spine surgery 06/2018
--- NOTE | 2018-07-30 12:23 | DS ---
Physical Exam: SUBJECTIVE: Patient seen and examined, breathing improved, still with cough, overall feels better. eager to go home. OBJECTIVE: Vital Signs Period Temp Pulse Resp BP Sys/Marcelo Pulse Ox Last 24 Hr 97.3 F-98.0 F 78-95 18-20 104-145/55-79 96 PHYSICAL EXAM GENERAL: The patient is awake, alert, and fully oriented, in no acute distress. HEAD: Normal with no signs of trauma. EYES: PERRL, extraocular movements intact, sclera anicteric, conjunctiva clear. ENT: Ears normal, nares patent, oropharynx clear without exudates, moist mucous membranes. NECK: Trachea midline, full range of motion, supple. LUNGS: Breath sounds equal, clear to auscultation bilaterally, no wheezes, no crackles, no accessory muscle use. HEART: S1S2 Irregular. ABDOMEN: Soft, nontender, nondistended, normoactive bowel sounds, no guarding, no rebound, EXTREMITIES: 2+ pulses, warm, trace to none pedal edema NEUROLOGICAL: Cranial nerves II through XII grossly intact. Normal speech, gait not observed. PSYCH: Normal mood, normal affect. SKIN: Warm, dry, normal turgor, no rashes or lesions noted. LABS Laboratory Results - last 24 hr 07/29/18 07/29/18 07/30/18 17:06 22:04 05:22 Sodium Potassium Chloride Carbon Dioxide Anion Gap BUN Creatinine Creat Clearance w eGFR POC Glucometer 240 224 185 Random Glucose Calcium 07/30/18 06:45 Sodium 137 Potassium 4.8 Chloride 100 Carbon Dioxide 33 H Anion Gap 5 L BUN 23 H Creatinine 0.8 Creat Clearance w eGFR > 60 POC Glucometer Random Glucose [address] cheste Compared to prior chest x-ray dated 07/25/2018 There is patchy airspace disease in the right lower lobe, posteriorly compatible with infiltrates. Mild atelectatic changes with airspace disease and infiltrates are also present in the left lung base. Small bilateral pleural effusion, right more the left. No pneumothorax is identified. No gross pulmonary nodules are identified, bilaterally. There are minimal atelectatic changes in the right middle lobe and lingular segment of the left upper lobe. Included lower neck appears unremarkable. The heart is within normal limits in size with a trace of pericardial effusion. Mild calcification of the coronary arteries are present. No gross enlarged mediastinal or hilar lymph nodes are identified. In included portion of the upper abdomen, patient is status post bariatric surgery with a gastric band seen around the gastric fundus, just below the level of the GE junction. No gross organomegaly , free air or free fluid are identified. Patient is status post posterior fusion that appears to be extending from T9 through L2 with a second appear margin not included on this exam. The height and alignment of the vertebral bodies appear unremarkable. Postop soft tissue changes are present in the midline, posteriorly with suggestion of a serosanguineous collection measuring approximately 3.5 x 3.5 cm in transverse and AP dimension. Impression: Mild atelectatic changes in the right middle lobe and lingular segment of the left upper lobe. Atelectasis with consolidation/ airspace disease in the dependent portion of the lower lobes, right more than left as well as small bilateral pleural effusion, right more than left consistent with pneumonia. There is a trace of pericardial effusion. No gross enlarged mediastinal or hilar lymph nodes are identified. Status post gastric banding. Status post posterior fusion of the lower thoracic and included upper lumbar spine with suggestion of fluid collection in the midline, posteriorly along the site of surgery measuring 3.5 x 3.5 cm in AP and transverse dimension likely representing a serosanguineous collection. Correlate clinically. 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 Her CT chest showed multifocal infiltrate with bilateral pleural effusions. Infectious disease was consulted, she received aztreonam/vancomycin in ED, given her multiple allergies, she was placed on cefepime. Concerns for QTc prolongation were raised on EKG, however manual calculated EKG by cardiology and primary team confirmed 440-470. She received 3 days course of azithromycin and her cefepime was rapidly tapered to ceftriaxone. Her influenza PCR, urine PNA studies were negative and sputum cx showed normal respiratory grant. She is transitioned to cefuroxime on discharge for a total 10 day course treatment. She was also placed on lasix 40 mg IV BID with good diuresis and improvement. She was also noted in new onset atrial fibrillation with RVR. She was evaluated by cardiology and her coreg is titrated up to 25 mg BID. She was continued on home xarelto. She reverted to sinus rhythm and continued to have ventricular bigeminy and PVCs on telemetry but asymptomatic. She had no home oxygen needs on discharge and her home services are resumed and will be discharged in stable condition. Condition: Good - Instructions Diet, Activity, Other Instructions: You were admitted with Pneumonia and congestive heart failure. You were treated with antibiotics and lasix. You also found with rapid heart rate called "atrial fibrillation". You were evaluated by cardiology and infectious disease. MEDICATION CHANGES: Antibiotic cefuroxime 500 mg twice daily starting tomorrow Your coreg is increased to 25 mg twice daily Continue torsemide 50 mg daily. COntinue other medications (including your insulin) as before Your new prescriptions have been sent to [facility] on [address] [facility] in [place]. ACTIVITY: Light, resume as tolerate. No driving or operating heavy machinery. Home physical therapy and walker as recommended on recent admission. Weight yourself daily and notify Dr. Pastrana if weight gain > 3 lbs in 2 days noted. FOLLOW UP: Primary care physician in [address] Pastrana in 1-2 weeks Chest xray in 4-6 weeks[address] Follow up with Dr Borjas to address your back symptoms and fluid collection in 1- 2 weeks. If you notice any worsening breathing, fevers, cough, bloody sputum, decreased urination or any new concerns, please call 911 or come to Emergency department. Referrals: Mil Pastrana MD [Staff Physician] - Beryl Pandey MD [Primary Care Provider] - Sreekanth Borjas MD [Staff Physician] - Disposition: VNS/HOME HEALTH CARE - Home Medications Comprehensive Discharge Medication List: Ambulatory Orders Gabapentin 300 mg PO BID 03/04/14 Oxycodone HCl/Acetaminophen [Percocet 10-325 mg Tablet] 1 tab PO Q6H PRN Insulin Lispro Protamin/Lispro [Humalog Mix 75-25 Kwikpen] 22 unit SQ BID Multivitamins [Multivit ([facility] Formulary)] 1 tab PO DAILY 03/17/16 Zolpidem Tartrate [Ambien] 10 mg PO HS PRN 06/01/17 Docusate Sodium [Colace -] 100 mg PO BID PRN #0 cap 06/03/17 Lisinopril 5 mg PO DAILY 06/16/18 Rivaroxaban [Xarelto -] 20 mg PO DAILY 06/22/18 Ergocalciferol [Vitamin D2] 50,000 unit PO WEEKLY 07/26/18 Insulin Degludec [Tresiba Flextouch U-100] 30 units IM DAILY 07/26/18 Leflunomide [Arava] 20 mg PO DAILY 07/26/18 Torsemide 50 mg PO DAILY 07/26/18 Carvedilol [Coreg -] 25 mg PO BID #60 tablet 07/30/18 Cefuroxime Axetil [Cefuroxime] 500 mg PO BID #8 tablet 07/30/18 Guaifenesin [Robitussin -] 10 ml PO Q6H PRN #1 cup 07/30/18 This patient is new to me today: No Emergency Visit: Yes ED Registration Date: 07/25/18 Care time: The patient presented to the Emergency Department on the above date and was hospitalized for further evaluation of their emergent condition. Critical Care patient: No - Discharge Referral Referred to [facility] Med [facility] No
[2018-07-30 15:00] VITALS: BP 98/61; PULSE 85; TEMP 97.8
[2018-07-31] MEDS ORDERED: TORSEMIDE 100 MG TABLET PO SCH (10:00)
== END 2018-07-30 18:26 | disposition home or self-care (01) | DRG 291 ==
LOC: JER 11:32 → JERBED 15:00 → J4S 19:34
PROVIDERS: ADMIT Hospitalist; ATTEND Hospitalist
DX: I11.0 Hypertensive heart disease with heart failure (principal); J18.9 Pneumonia, unspecified organism; I50.23 Acute on chronic systolic (congestive) heart failure; E78.00 Pure hypercholesterolemia, unspecified; I42.9 Cardiomyopathy, unspecified; E66.8 Other obesity; Z68.38 Body mass index [BMI] 38.0-38.9, adult; E11.9 Type 2 diabetes mellitus without complications; M54.5 Low back pain; I48.91 Unspecified atrial fibrillation; J40 Bronchitis, not specified as acute or chronic; I45.81 Long QT syndrome; M06.9 Rheumatoid arthritis, unspecified; G47.33 Obstructive sleep apnea (adult) (pediatric); Z86.711 Personal history of pulmonary embolism; Z86.718 Personal history of other venous thrombosis and embolism; Z98.84 Bariatric surgery status; Z96.652 Presence of left artificial knee joint; Z88.0 Allergy status to penicillin; Z96.651 Presence of right artificial knee joint; Z88.1 Allergy status to other antibiotic agents
CPT/HCPCS: 36415; 71045-TC-FY; 71250-TC; 80048; 80053; 81003; 82550; 82962; 83605; 83735; 83880; 84100; 84443; 84484; 85025; 85610; 85730; 86157; 86738; 87040; 87070; 87086; 87205; 87804; 87899; 93005; 93010; 94761; 97116-GP; 97162-GP; 99285-25

== ENCOUNTER 2018-08-13 10:00 | Inpatient (IN) | payer OTHER ==
--- NOTE | 2018-08-13 10:31 | PDOC ---
Attending Attestation - Resident Resident Name: Tati Fajardo - ED Attending Attestation I have performed the following: I have examined & evaluated the patient, The case was reviewed & discussed with the resident, I agree w/resident's findings & plan, Exceptions are as noted - HPI HPI: 73 yo F with multiple medical issues, multiple spinal surgeries presents with back pain radiating to the L leg. She had a recent drainage of a seroma following a surgery to replace the hardware in her lumbar spine, now presents with abrupt onset of severe pain again. - Physicial Exam PE: GENERAL: Awake, alert, and fully oriented. In severe pain, uncomfortable in stretcher. HEAD: No signs of trauma EYES: PERRLA, EOMI, sclera anicteric, conjunctiva clear ENT: Auricles normal inspection, hearing grossly normal, nares patent, oropharynx clear without exudates. Moist mucosa NECK: Normal ROM, supple, no lymphadenopathy, JVD, or masses LUNGS: Breath sounds equal, clear to auscultation bilaterally. No wheezes, and no crackles HEART: Regular rate and rhythm, normal S1 and S2, no murmurs, rubs or gallops ABDOMEN: Soft, nontender, normoactive bowel sounds. No guarding, no rebound. No masses EXTREMITIES: Normal range of motion, no edema. No clubbing or cyanosis. No cords, erythema, or tenderness NEUROLOGICAL: Cranial nerves II through XII grossly intact. Normal speech. Motor intact. Unable to ambulate due to pain. SKIN: Warm, Dry, normal turgor, no rashes or lesions noted. SPINE: +Healed surgical scars. No midline tenderness. - Medical Decision Making Pt with severe low back pain, similar to prior exacerbations. Will d/w Dr. Borjas regarding imaging. Pt has had hypotension for the past few months, both according to her verbal report and according to chart review. However, will work her up for infection, anemia.
--- NOTE | 2018-08-13 10:39 | PDOC ---
History of Present Illness - General Chief Complaint: Back Pain Stated Complaint: BACK PAIN Time Seen by Provider: 08/13/18 10:20 History Source: Patient Exam Limitations: No Limitations - History of Present Illness Initial Comments: 08/13/18 13:31 73 year old woman with a history of HTN, DM, CHFpEF (06/19/18 EF ~50%), intractable lower back pain s/p L4-L5 laminectomy, L2-S1 seroma w/ drianage, PE/ DVT (10 yrs prior; with IVC filter, on xarelto) presents with lower back pain radiating into the L buttocks worsening over the past 4 days and unable to be controlled with percocet at home. The patient denies numbness, tingling or weakness. She provides limited 2/2 'complaining of pain everywhere." The patient denies chest pain, shortness of breath, headache, abdominal pain, nausea , vomiting, diarrhea, dysuria, hematuria, urinary or fecal incontinence. Past History - Past Medical History Allergies/Adverse Reactions: Allergies Allergy/AdvReac Type Severity Reaction Status Date / Time levofloxacin [From Levaquin] Allergy Severe ANAPHYLAXIS Verified 08/13/18 10:19 methotrexate Allergy Severe Swelling Verified 08/13/18 10:19 Penicillins Allergy Mild Rash Verified 08/13/18 10:19 doxycycline Allergy Unknown Verified 08/13/18 10:19 bumetanide [From Bumex] Allergy Rash Verified 08/13/18 10:19 morphine AdvReac Mild Itching Verified 08/14/18 00:08 piperacillin sodium AdvReac Mild Itching Verified 08/13/18 10:19 [From Zosyn] tazobactam sodium AdvReac Mild Itching Verified 08/13/18 10:19 [From Zosyn] Home Medications: Ambulatory Orders Gabapentin 300 mg PO BID 03/04/14 Oxycodone HCl/Acetaminophen [Percocet 10-325 mg Tablet] 1 tab PO Q6H PRN Insulin Lispro Protamin/Lispro [Humalog Mix 75-25 Kwikpen] 22 unit SQ BID Multivitamins [Multivit ([facility] Formulary)] 1 tab PO DAILY 03/17/16 Zolpidem Tartrate [Ambien] 10 mg PO HS PRN 06/01/17 Docusate Sodium [Colace -] 100 mg PO BID PRN #0 cap 06/03/17 Rivaroxaban [Xarelto -] 20 mg PO DAILY 06/22/18 Ergocalciferol [Vitamin D2] 50,000 unit PO WEEKLY 07/26/18 Leflunomide [Arava] 20 mg PO DAILY 07/26/18 Torsemide 50 mg PO DAILY 07/26/18 Carvedilol [Coreg -] 25 mg PO BID #60 tablet 07/30/18 Anemia: No Asthma: No Cancer: No Cardiac Disorders: Yes CVA: No COPD: No CHF: Yes DVT: Yes Dementia: No Diabetes: Yes GI Disorders: No Disorders: No HTN: Yes Hypercholesterolemia: Yes Liver Disease: No Seizures: No Thyroid Disease: No - Surgical History Abdominal Surgery: Yes (GASTRIC BANDING) Appendectomy: No Cardiac Surgery: No Cholecystectomy: Yes Lung Surgery: No Neurologic Surgery: Yes (4 BACK FUSIONS) Orthopedic Surgery: Yes (TKR RT 2004; SHOULDER SX RT, L. KNEE SURGERY-2012,, Rt hip Sx 10/2013 [facility]) - Immunization History Immunization Up to Date: Yes - Suicide/Smoking/Psychosocial Hx Smoking Status: No Smoking History: Never smoked Have you smoked in the past 12 months: No Number of Cigarettes Smoked Daily: 0 If you are a former smoker, when did you quit?: 40 YRS Information on smoking cessation initiated: No Hx Alcohol Use: No Drug/Substance Use Hx: No Substance Use Type: None Hx Substance Use Treatment: No Review of Systems - Review of Systems Able to Perform ROS?: Yes Is the patient limited [place] proficient: No Constitutional: No: Chills, Diaphoresis, Fever HEENTM: No: Blurred Vision, Tinnitus Respiratory: No: Cough, Orthopnea, Shortness of Breath Cardiac (ROS): No: Chest Pain, Lightheadedness, Palpitations, Syncope Musculoskeletal: Yes: Back Pain *Physical Exam - Vital Signs Last Vital Signs Temp Pulse Resp BP Pulse Ox 97.8 F 52 L 22 H 91/53 L 99 08/13/18 10:17 08/13/18 10:17 08/13/18 10:17 08/13/18 10:17 08/13/18 10:17 - Physical Exam Comments: 08/13/18 14:06 GENERAL: Awake, alert, and fully oriented, in no acute distress HEAD: No signs of trauma, normocephalic, atraumatic EYES: EOMI, sclera anicteric, conjunctiva clear ENT: oropharynx clear without exudates. Moist mucosa NECK: Normal ROM, supple LUNGS: No distress, speaks full sentences, clear to auscultation bilaterally HEART: Regular rate and rhythm, normal S1 and S2, no murmurs, rubs or gallops, peripheral pulses normal and equal bilaterally. ABDOMEN: Soft, nontender, normoactive bowel sounds. No guarding, no rebound. No masses BACK: tenderness to palpation of lumbar paraspinal bilaterally EXTREMITIES : Normal inspection, Normal range of motion, no edema. No clubbing or cyanosis. NEUROLOGICAL: Cranial nerves II through XII grossly intact. Normal speech, no focal sensorimotor deficits. 5/5 strength of the lower extremities, no numbness , neuro deficit SKIN: Warm, Dry, normal turgor, no rashes or lesions noted Moderate Sedation - Procedure Monitoring Vital Signs: Procedure Monitoring Vital Signs Temperature 97.8 F 08/13/18 10:17 Pulse Rate 52 L 08/13/18 10:17 Respiratory Rate 22 H 08/13/18 10:17 Blood Pressure 91/53 L 08/13/18 10:17 O2 Sat by Pulse Oximetry (%) 99 08/13/18 10:17 ED Treatment Course - LABORATORY CBC & Chemistry Diagram: 08/15/18 06:00 08/15/18 06:00 Medical Decision Making - Medical Decision Making 08/13/18 14:00 73 year old woman with a history of HTN, DM, CHFpEF (06/19/18 EF ~50%), intractable lower back pain s/p L4-L5 laminectomy, L2-S1 seroma w/ drianage, PE/ DVT (10 yrs prior; with IVC filter, on xarelto) presents with lower back pain radiating into the L buttocks worsening over the past 4 days and unable to be controlled with percocet at home. The patient denies numbness, tingling or weakness. She provides limited 2/2 'complaining of pain everywhere." The patient denies chest pain, shortness of breath, headache, abdominal pain, nausea , vomiting, diarrhea, dysuria, hematuria, urinary or fecal incontinence. ED Course: Patient complaining of pain but slightly hypotensive. dosed fentanyl for pain Patient with slight improvement of pain. Dr. Borjas contacted informed of patient request lumbar CT. Radiology spoke to attending about CT results significant for air in soft tissue concerning for infection. Dr. Borjas informed of result. ID Dr. Galarza made aware of patient Patient pending labs and will be admitted for possible infection consider nec fasc 08/13/18 14:12 Dr. Galarza at bedside. Does not recommend antibiotics. Blood cultures ordered. Patient admitted to medicine for further workup and evaluation *DC/Admit/Observation/Transfer Diagnosis at time of Disposition: Back pain Qualifiers: Back pain location: low back pain Chronicity: acute Back pain laterality: left Sciatica presence: without sciatica Qualified Code(s): M54.5 - Low back pain - Discharge Dispostion Condition at time of disposition: Stable Decision to Admit order: Yes - Referrals - Patient Instructions - Post Discharge Activity
[2018-08-13 12:49] LABS: ACTIVATED PTT 33.6 SECONDS (25.2-36.5); INR 3.22 (0.83-1.09); PROTHROMBIN TIME (PATIENT) 38.4 SEC (9.7-13.0)
[2018-08-13 13:39] LABS: ANION GAP 8 MMOL/L (8-16); BLOOD UREA NITROGEN 14 mg/dL (7-18); CALCIUM 8.4 mg/dL (8.5-10.1); CHLORIDE 102 mmol/L (98-107); CO2 28 mmol/L (21-32); CREATININE 0.9 mg/dL (0.55-1.3); GLUCOSE,RANDOM 238 mg/dL (74-106); POTASSIUM 3.7 mmol/L (3.5-5.1); SODIUM 138 mmol/L (136-145); TOT PROT 6.4 g/dl (6.4-8.2)
[2018-08-13 13:40] LABS: ALBUMIN 2.6 g/dl (3.4-5.0); ALK PHOS 126 U/L (45-117); BILIRUBIN,TOTAL 0.4 mg/dL (0.2-1); SGOT/AST 8 U/L (15-37); SGPT/ALT 10 U/L (13-61)
[2018-08-13] MEDS ORDERED: HYDROmorphone HCL 2 MG TABLET PO ONE (13:55)
[2018-08-13] MEDS ORDERED: HYDROmorphone HCL 2 MG TABLET ONE (13:58)
[2018-08-13] MEDS: VANCOMYCIN 1,500 MG in DEXTROSE 5%-WATER - 500 ML IVPB ONE ×2 (14:06→14:14)
[2018-08-13 14:17] LABS: BASO % 1.1 % (0-2.0); EOS % 2.4 % (0-4.5); HEMATOCRIT 34.3 % (32.4-45.2); HEMOGLOBIN 10.7 GM/dL (10.7-15.3); LYMPH % 19.8 % (8-40); MCH 26.8 pg (25.7-33.7); MCHC 31.1 g/dl (32.0-36.0); MEAN CELL VOLUME 86.3 fl (80-96); MEAN PLT VOLUME 7.6 fl (7.5-11.1); MONO % 10.4 % (3.8-10.2); NEUT % 66.3 % (42.8-82.8); PLATELET COUNT 310 K/MM3 (134-434); RBC 3.98 M/mm3 (3.60-5.2); RDW 16.5 % (11.6-15.6); WHITE BLOOD COUNT 8.3 K/mm3 (4.0-10.0)
--- NOTE | 2018-08-13 14:37 | PN ---
Progress Note (short form) - Note Progress Note: ID CONSULT DICTATED CHART REVIEWED, PT EXAMINED DISCUSSED WITH DR SAMARA LAZARO BC, ESR, CRP OBSERVE OFF ANTIBIOTICS
--- NOTE | 2018-08-13 15:02 | HP ---
Admitting History and Physical - Admission Chief Complaint: back pain History of Present Illness: this is a 73 y/o F with h/o HTN, NIDDM, HFpEF (06/19/18 EF ~50%), intractable lower back pain s/p L4-L5 s/p laminectomy, L2-S1 seroma s/p drainage, PE/DVT ( 10 yrs prior; with IVC filter, on xarelto), who presents to the ED c/o worsening back pain over the past few days, she stated that her sx worsened acutely over the last 2-3 days, she ambulates using a walker. At this time, denies SPARROW, fever, chills, chest pain or pressure, or changes in urinary or bowel function. No recent sick contacts. 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 Cardiovascular: Yes: CHF, Deep Vein Thrombosis, HTN Pulmonary: Yes: Pulmonary Embolus Rheumatology: Yes: Rheumatoid Arthritis Endocrine: Yes: Diabetes Mellitus - Past Surgical History Past Surgical History: Yes: Bariatric Surgery (gastric band), Cholecystectomy, Hysterectomy, Joint Replacement (5 right hip replacements, 1 left hip replacement, bilateral TKR, left LTK with staph infection ), Laminectomy (back surgeries-reports 5, most rcent 06/19) - Smoking History Smoking history: Never smoked Have you smoked in the past 12 months: No Aproximately how many cigarettes per day: 0 If you are a former smoker, when did you quit?: 40 YRS - Alcohol/Substance Use Hx Alcohol Use: No - Social History ADL: Independent 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 History of Recent Travel: No Home Medications - Allergies Allergies/Adverse Reactions: Allergies Allergy/AdvReac Type Severity Reaction Status Date / Time levofloxacin [From Levaquin] Allergy Severe ANAPHYLAXIS Verified 08/13/18 10:19 methotrexate Allergy Severe Swelling Verified 08/13/18 10:19 Penicillins Allergy Mild Rash Verified 08/13/18 10:19 doxycycline Allergy Unknown Verified 08/13/18 10:19 bumetanide [From Bumex] Allergy Rash Verified 08/13/18 10:19 piperacillin sodium AdvReac Mild Itching Verified 08/13/18 10:19 [From Zosyn] tazobactam sodium AdvReac Mild Itching Verified 08/13/18 10:19 [From Zosyn] - Home Medications Home Medications: Ambulatory Orders Gabapentin 300 mg PO BID 03/04/14 Oxycodone HCl/Acetaminophen [Percocet 10-325 mg Tablet] 1 tab PO Q6H PRN Insulin Lispro Protamin/Lispro [Humalog Mix 75-25 Kwikpen] 22 unit SQ BID Multivitamins [Multivit ([facility] Formulary)] 1 tab PO DAILY 03/17/16 Zolpidem Tartrate [Ambien] 10 mg PO HS PRN 06/01/17 Docusate Sodium [Colace -] 100 mg PO BID PRN #0 cap 06/03/17 Rivaroxaban [Xarelto -] 20 mg PO DAILY 06/22/18 Ergocalciferol [Vitamin D2] 50,000 unit PO WEEKLY 07/26/18 Leflunomide [Arava] 20 mg PO DAILY 07/26/18 Torsemide 50 mg PO DAILY 07/26/18 Carvedilol [Coreg -] 25 mg PO BID #60 tablet 07/30/18 Review of Systems - Review of Systems Constitutional: reports: No Symptoms Eyes: reports: No Symptoms HENT: reports: No Symptoms Neck: reports: No Symptoms Cardiovascular: reports: No Symptoms Respiratory: reports: No Symptoms Gastrointestinal: reports: No Symptoms Musculoskeletal: reports: Back Pain, Extremity Pain Integumentary: reports: No Symptoms Neurological: reports: No Symptoms Endocrine: reports: No Symptoms Hematology/Lymphatic: reports: No Symptoms Psychiatric: reports: No Symptoms Physical Examination Vital Signs: Vital Signs Temperature 97.8 F 08/13/18 10:17 Pulse Rate 73 08/13/18 13:44 Respiratory Rate 19 08/13/18 13:44 Blood Pressure 108/59 L 08/13/18 13:44 O2 Sat by Pulse Oximetry (%) 94 L 08/13/18 13:44 Constitutional: Yes: Well Nourished, No Distress, Moderate Distress, Obese Eyes: Yes: WNL, Conjunctiva Clear, EOM Intact HENT: Yes: WNL, Atraumatic, Normocephalic Neck: Yes: WNL, Supple, Trachea Midline Cardiovascular: Yes: WNL, Regular Rate and Rhythm Respiratory: Yes: WNL, Regular, CTA Bilaterally Gastrointestinal: Yes: WNL, Normal Bowel Sounds, Soft Musculoskeletal: Yes: WNL Extremities: Yes: WNL Edema: No Integumentary: Yes: WNL Neurological: Yes: WNL, Alert, Oriented Labs: CBC, BMP 08/13/18 10:59 08/13/18 10:59 Imaging - Results Chest X-ray: Report Reviewed, Image Reviewed X-ray: Report Reviewed, Image Reviewed Problem List - Problems (1) (HFpEF) heart failure with preserved ejection fraction Assessment/Plan: stable without any acute decompensation will continue home medication Code(s): I50.30 - UNSPECIFIED DIASTOLIC (CONGESTIVE) HEART FAILURE (2) Back pain Assessment/Plan: the CT scan of the back showed air in the vertebra will consult surgeon and IR for further evaluation pain management with hydromorphone 2mg po q4hrs Code(s): M54.9 - DORSALGIA, UNSPECIFIED Qualifiers: Back pain location: low back pain Chronicity: acute Back pain laterality : left Sciatica presence: without sciatica Qualified Code(s): M54.5 - Low back pain (3) Intractable back pain Code(s): M54.9 - DORSALGIA, UNSPECIFIED (4) Hypertension Code(s): I10 - ESSENTIAL (PRIMARY) HYPERTENSION (5) Mitral regurgitation Assessment/Plan: stable no acute changes Code(s): I34.0 - NONRHEUMATIC MITRAL (VALVE) INSUFFICIENCY (6) Type 2 diabetes mellitus Assessment/Plan: ISS diabetic diet Code(s): E11.9 - TYPE 2 DIABETES MELLITUS WITHOUT COMPLICATIONS Qualifiers: Diabetes mellitus intermediate designer insulin use: without nursing home use Diabetes mellitus complication status: without complication Qualified Code(s): E11.9 - Type 2 diabetes mellitus without complications (7) HTN (hypertension), benign Assessment/Plan: c/w home medication Code(s): I10 - ESSENTIAL (PRIMARY) HYPERTENSION (8) Paroxysmal atrial fibrillation Assessment/Plan: continue rivaroxiban 20mg daily c/w rate control Code(s): I48.0 - PAROXYSMAL ATRIAL FIBRILLATION
[2018-08-13] MEDS ORDERED: morphine SULFATE 4 MG/ML VIAL IVPUSH PRN (15:12)
[2018-08-13] MEDS ORDERED: morphine SO4 SUSTAINED ACTING 15 MG TABLET.SA PO SCH (15:15)
--- NOTE | 2018-08-13 15:31 | CONS ---
DATE OF CONSULTATION: 08/13/2018 The patient is a 73-year-old female evaluated for possible infected seroma. Chart reviewed, patient examined, case discussed with Dr. Borjas. The patient has a long and complicated spinal surgery history. She has had multiple recent hospital admissions for exacerbation of back pain. In June of 2018, she was admitted for evaluation of back pain and was noted on imaging to have a fluid collection, which was aspirated. Cultures at that time were negative, including routine culture and sensitivity, AFB, and fungal culture. In the interim, she had been discharged to a [facility] facility. She had developed left proximal buttock pain and was felt to have a torn muscle. An ultrasound-directed aspiration of the left gluteal hematoma was performed. Cultures again were unrevealing. She now returns with complaints of worsening back pain. Over 3 to 4 days, she has had worsening low back pain to the point where she was unable to assume a comfortable position and was unable to sit without pain. She presented to the emergency room, where a CAT scan was performed and showed interval development of air pockets within the previously visualized fluid collection at L3 and S1. She has been afebrile. Denies any recent fever or chills. No reports of wound drainage. Past medical history positive for chronic back pain, spinal stenosis, rheumatoid arthritis, hypertension, diabetes, congestive heart failure. PAST SURGICAL HISTORY: Status post multiple laminectomies, multiple knee and joint replacements, cholecystectomy, hysterectomy, and gastric band. Allergies to PENICILLIN, fluoroquinolones, doxycycline, methotrexate. The patient is unsure of the nature of the PENICILLIN allergy. She has tolerated cephalosporins in the past. She reports major reaction to Levaquin. LABORATORY DATA: White blood cell count 8.3, hematocrit 34.3, platelets 310, creatinine 0.9. PHYSICAL EXAMINATION: General: She is awake. She is in moderate distress secondary to back pain. She is lying on her right side on a stretcher. Vital Signs: She is afebrile, temperature 97.8. Blood pressure 91/53. Pulse 52, regular. Respirations 18 per minute. Eyes: Sclerae anicteric. Heart Sounds: S1, S2. Lungs: Clear. Abdomen: Obese, soft, nontender. Back: On examination of the laminectomy wound, the laminectomy wound is completely healed without evidence of infection. There was no erythema, no expressive drainage. There is no palpable crepitus along the wound. Extremities: Positive for edema. IMPRESSION: Postoperative laminectomy seroma, previously drained in the past, with negative cultures. No evidence of wound infection at this time. Patient is afebrile with a normal white blood cell count. Case was discussed with the radiologist as well as Dr. Borjas. Will obtain blood cultures, sedimentation rate, C-reactive protein, observe off antibiotic therapy. Orthopedic followup. Thank you for the kind referral. ORIANA CANO M.D. [id number]
[2018-08-13] MEDS ORDERED: morphine SO4 SUSTAINED ACTING 15 MG TABLET.SA ONE (16:05)
[2018-08-13] MEDS ORDERED: INSULIN (NOVOLOG) ASPART 100 UNITS/ML 10ML VIAL ONE (18:18)
[2018-08-13] MEDS: INSULIN SLIDING SCALE (NOVOLOG) 1 VIAL SQ SCH (18:20)
[2018-08-13] MEDS ORDERED: MORPHINE SULFATE 2 MG/ML VIAL ONE (19:59)
[2018-08-13] MEDS ORDERED: GABAPENTIN 300 MG CAPSULE (FP) PO SCH (22:00)
[2018-08-13] MEDS: GABAPENTIN 300 MG CAPSULE (FP) PO SCH (22:20)
[2018-08-13] MEDS: CARVEDILOL 25 MG TABLET (FP) PO SCH (22:20)
[2018-08-13] MEDS: ZOLPIDEM TARTRATE 5 MG TABLET PO PRN (23:52)
[2018-08-14] MEDS ORDERED: traMADol HCL 50 MG TABLET PO ONE (00:10)
[2018-08-14] MEDS: INSULIN SLIDING SCALE (NOVOLOG) 1 VIAL SQ SCH ×3 (07:41→17:29)
[2018-08-14] MEDS: GABAPENTIN 300 MG CAPSULE (FP) PO SCH ×3 (07:41→22:26)
[2018-08-14 08:01] LABS: INR 1.79 (0.83-1.09); PROTHROMBIN TIME (PATIENT) 21.2 SEC (9.7-13.0)
[2018-08-14 08:04] LABS: ACTIVATED PTT 30.2 SECONDS (25.2-36.5)
[2018-08-14 08:05] LABS: ALBUMIN 2.4 g/dl (3.4-5.0); ALK PHOS 114 U/L (45-117); ANION GAP 5 MMOL/L (8-16); BILIRUBIN,TOTAL 0.6 mg/dL (0.2-1); BLOOD UREA NITROGEN 14 mg/dL (7-18); CALCIUM 8.2 mg/dL (8.5-10.1); CHLORIDE 103 mmol/L (98-107); CO2 31 mmol/L (21-32); CREATININE 0.7 mg/dL (0.55-1.3); GLUCOSE,RANDOM 163 mg/dL (74-106); MAGNESIUM 1.9 mg/dL (1.8-2.4); PHOSPHOROUS 3.7 mg/dL (2.5-4.9); POTASSIUM 3.5 mmol/L (3.5-5.1); SGOT/AST 7 U/L (15-37); SGPT/ALT 10 U/L (13-61); SODIUM 140 mmol/L (136-145)
[2018-08-14 08:20] LABS: BASO % 0.9 % (0-2.0); EOS % 3.7 % (0-4.5); HEMATOCRIT 29.2 % (32.4-45.2); HEMOGLOBIN 10.1 GM/dL (10.7-15.3); LYMPH % 26.8 % (8-40); MCH 28.9 pg (25.7-33.7); MCHC 34.4 g/dl (32.0-36.0); MEAN CELL VOLUME 83.9 fl (80-96); MEAN PLT VOLUME 7.9 fl (7.5-11.1); MONO % 12.1 % (3.8-10.2); NEUT % 56.5 % (42.8-82.8); PLATELET COUNT 303 K/MM3 (134-434); RBC 3.48 M/mm3 (3.60-5.2); RDW 15.7 % (11.6-15.6); WHITE BLOOD COUNT 6.5 K/mm3 (4.0-10.0)
[2018-08-14] MEDS ORDERED: HYDROmorphone HCL 2 MG TABLET PO PRN ×2 (10:44→15:11)
[2018-08-14] MEDS: RIVAROXABAN 20 MG TABLET PO SCH ×2 (11:09→18:35)
[2018-08-14] MEDS: CARVEDILOL 25 MG TABLET (FP) PO SCH ×2 (11:09→22:26)
--- NOTE | 2018-08-14 16:38 | PN ---
Physical Exam: SUBJECTIVE: Patient seen and examined this AM. She states she is having significant back pain. She is refusing morphine and tramadol. Requesting Dilaudid OBJECTIVE: Vital Signs Period Temp Pulse Resp BP Sys/Marcelo Pulse Ox Last 24 Hr 97.5 F-98.0 F 73-84 18-20 120-140/50-82 94-97 GENERAL: A&O, minimal distress HEAD: Normocephalic, atraumatic. EYES: PERRL, no scleral icterus NECK: supple without lymphadenopathy LUNGS: CTA b/l, no crackles or wheezes HEART: Regular rate and rhythm, normal S1 and S2 without murmur ABDOMEN: Obese, Soft, nontender to palpation, normoactive bowel sounds MUSCULOSKELETAL: No bony deformities or tenderness. NEUROLOGICAL: Cranial nerves II-XII grossly intact. Normal speech. Laboratory Results - last 24 hr 08/13/18 08/14/18 08/14/18 18:14 06:30 06:30 WBC RBC Hgb Hct MCV MCH MCHC RDW Plt Count MPV Absolute Neuts (auto) Neutrophils % Lymphocytes % Monocytes % Eosinophils % Basophils % Nucleated RBC % ESR 88 H PT with INR INR PTT (Actin FS) Sodium Potassium Chloride Carbon Dioxide Anion Gap BUN Creatinine Creat Clearance w eGFR POC Glucometer [phone] Random Glucose Calcium Phosphorus Magnesium Total Bilirubin AST ALT Alkaline Phosphatase C-Reactive Protein 6.1 H Total Protein Albumin 08/14/18 08/14/18 08/14/18 06:30 06:30 06:30 WBC 6.5 RBC 3.48 L Hgb 10.1 L Hct 29.2 L MCV 83.9 MCH 28.9 MCHC 34.4 RDW 15.7 H Plt Count 303 MPV 7.9 Absolute Neuts (auto) 3.7 Neutrophils % 56.5 Lymphocytes % 26.8 D Monocytes % 12.1 H Eosinophils % 3.7 Basophils % 0.9 Nucleated RBC % 0 ESR PT with INR 21.20 H INR 1.79 H PTT (Actin FS) 30.2 Sodium 140 Potassium 3.5 Chloride 103 Carbon Dioxide 31 Anion Gap 5 L BUN 14 Creatinine 0.7 Creat Clearance w eGFR > 60 POC Glucometer Random Glucose 163 H Calcium 8.2 L Phosphorus 3.7 Magnesium 1.9 Total Bilirubin 0.6 AST 7 L ALT 10 L Alkaline Phosphatase 114 C-Reactive Protein Total Protein 6.0 L Albumin 2.4 L 01/07/19 01/07/19 06:59 11:56 WBC RBC Hgb Hct MCV MCH MCHC RDW Plt Count MPV Absolute Neuts (auto) Neutrophils % Lymphocytes % Monocytes % Eosinophils % Basophils % Nucleated RBC % ESR PT with INR INR PTT (Actin FS) Sodium Potassium Chloride Carbon Dioxide Anion Gap BUN Creatinine Creat Clearance w eGFR POC Glucometer 149 239 Random Glucose Calcium Phosphorus Magnesium Total Bilirubin AST ALT Alkaline Phosphatase C-Reactive Protein Total Protein Albumin Active Medications Generic Name Dose Route Start Last Admin Trade Name Freq PRN Reason Stop Dose Admin Carvedilol 25 mg 08/13/18 22:00 08/14/18 11:09 Coreg - PO 25 mg BID LISA Administration Docusate Sodium 100 mg 08/13/18 15:11 Colace - PO BID PRN CONSTIPATION Ergocalciferol 50,000 unit 08/15/18 10:00 Drisdol - PO Tu@1000 LISA Gabapentin 300 mg 08/13/18 22:00 08/14/18 14:46 Neurontin - PO 300 mg TID LISA Administration Hydromorphone HCl 2 mg 08/14/18 15:11 08/14/18 16:07 Dilaudid - PO 2 mg Q4H PRN Administration PAIN LEVEL 6-10 Insulin Aspart 1 vial 08/13/18 16:30 08/14/18 11:57 Novolog Vial Sliding Scale - SQ 2 units TIDAC LISA Administration Protocol Multivitamins/Minerals/Vitamin C 1 tab 08/15/18 10:00 Tab-A-Vit - PO DAILY [facility] Rivaroxaban 20 mg 08/14/18 10:00 08/14/18 11:09 Xarelto - PO 20 mg DAILY LISA Administration Torsemide 50 mg 08/14/18 16:00 Demadex - PO DAILY LISA Zolpidem Tartrate 5 mg 08/13/18 15:11 08/13/18 23:52 Ambien - PO 5 mg HS PRN Administration INSOMNIA ASSESSMENT/PLAN: 73 y/o F with h/o HTN, NIDDM, HFpEF (06/19/18 EF ~50%), intractable lower back pain s/p L4-L5 s/p laminectomy, L2-S1 seroma s/p drainage, 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 Lower Back Pain -s/p L4-L5 laminectomy, seroma with IR drainage -Dilaudid 2 mg PO Q4 PRN -Neurontin 300 mg PO BID -CT noted with interval air pockets -ID consult appreciated, no Abx at this time -Case discussed with Dr. Borjas who will see the patient and make recommendations -Can likely d/c with pain control and outpatient follow up with pain management NIDDM -BGMs ACHS -Insulin sliding scale for glycemic control Hx DVT/PE -On Xarelto, with IVC filter ->10 yrs ago DVT Prophylaxis -Xarelto 20 mg PO Daily FEN -Fluids: none -Electrolytes: No electrolyte abnormalities, BMP in AM -Nutrition: Na controlled diet Disposition Med/Surg Visit type - Emergency Visit Emergency Visit: Yes ED Registration Date: 08/13/18 Care time: The patient presented to the Emergency Department on the above date and was hospitalized for further evaluation of their emergent condition. - New Patient This patient is new to me today: Yes Date on this admission: 08/14/18 - Critical Care Critical Care patient: No
[2018-08-14] MEDS ORDERED: PT OWN MED DRAWER 7, Y5N ONE (16:41)
--- NOTE | 2018-08-14 18:09 | PN ---
Progress Note (short form) - Note Progress Note: Patient discharged from the hospital approx 3 weeks ago. Admitted for inexplicable pain L buttock. This was better by the time she left the hospital. For 3 weeks has been pain free until recurrence of the same pain. Started spontaneously Has a a mechanical pattern ie worse when moving and relieved by lying on the R side. No radiculopathic pain Note the other relevant comorbidities as per the chart. CT L sacral spine Gas in the soft tissue is not relevant in this clinical context ? L Pseudoarthrosis on CT Clinical Eval Apyrexial remains generally well. Vitals All stable Abdomen soft. LSpine No tenderness Buttock Tender over the L entheses of the iliac crest Neuro At baseline fully intact ASSESSMENT ? enthesiopathic myofascial pain previous MRI pelvis revealed no pelvic muscle abnormality and no other pelvic pathology seen. ? SI joint patholology For CT guided marcaine instillation into the L SI joint. ? Lumbar sacral L%/S1 pseudoarthrosis May require repeat lumbar sacral exploration. ? referred pain from another source PLAN Pain MX PT mobilize as best as possible FWBAT For CT pevis with CT guided Left SI joint injection with marcaine
--- NOTE | 2018-08-14 18:21 | PN ---
Teaching Attending Note Name of Resident: Jeffery Burrell ATTENDING PHYSICIAN STATEMENT I saw and evaluated the patient. I reviewed the resident's note and discussed the case with the resident. I agree with the resident's findings and plan as documented. SUBJECTIVE Still complains of back pain radiating down both legs L>R. No bladder/bowel incontinence. No fever/chills. OBJECTIVE Afebrile, Hemodynamically Stable. Last Vital Signs Temp Pulse Resp BP Pulse Ox 97.5 F L 81 20 134/82 97 08/14/18 14:32 08/14/18 14:32 08/14/18 14:32 08/14/18 14:32 08/14/18 09:00 HEENT - Atraumatic, Normocephalic Heart - S1, S2, RRR Lungs - clear to auscultation. No crackles/wheeze Abdomen - Soft, non-tender. Bowel Sounds normal. Extremities - No eema, no calf tenderness. Neuro - AAO x 3. Power mildly reduced RLE - chronic as per patient. Laboratory Results - last 24 hr 08/13/18 08/14/18 08/14/18 18:14 06:30 06:30 WBC RBC Hgb Hct MCV MCH MCHC RDW Plt Count MPV Absolute Neuts (auto) Neutrophils % Lymphocytes % Monocytes % Eosinophils % Basophils % Nucleated RBC % ESR 88 H PT with INR INR PTT (Actin FS) Sodium Potassium Chloride Carbon Dioxide Anion Gap BUN Creatinine Creat Clearance w eGFR POC Glucometer [phone] Random Glucose Calcium Phosphorus Magnesium Total Bilirubin AST ALT Alkaline Phosphatase C-Reactive Protein 6.1 H Total Protein Albumin 08/14/18 08/14/18 08/14/18 06:30 06:30 06:30 WBC 6.5 RBC 3.48 L Hgb 10.1 L Hct 29.2 L MCV 83.9 MCH 28.9 MCHC 34.4 RDW 15.7 H Plt Count 303 MPV 7.9 Absolute Neuts (auto) 3.7 Neutrophils % 56.5 Lymphocytes % 26.8 D Monocytes % 12.1 H Eosinophils % 3.7 Basophils % 0.9 Nucleated RBC % 0 ESR PT with INR 21.20 H INR 1.79 H PTT (Actin FS) 30.2 Sodium 140 Potassium 3.5 Chloride 103 Carbon Dioxide 31 Anion Gap 5 L BUN 14 Creatinine 0.7 Creat Clearance w eGFR > 60 POC Glucometer Random Glucose 163 H Calcium 8.2 L Phosphorus 3.7 Magnesium 1.9 Total Bilirubin 0.6 AST 7 L ALT 10 L Alkaline Phosphatase 114 C-Reactive Protein Total Protein 6.0 L Albumin 2.4 L 08/14/18 08/14/18 08/14/18 06:59 11:56 17:28 WBC RBC Hgb Hct MCV MCH MCHC RDW Plt Count MPV Absolute Neuts (auto) Neutrophils % Lymphocytes % Monocytes % Eosinophils % Basophils % Nucleated RBC % ESR PT with INR INR PTT (Actin FS) Sodium Potassium Chloride Carbon Dioxide Anion Gap BUN Creatinine Creat Clearance w eGFR POC Glucometer 149 239 249 Random Glucose Calcium Phosphorus Magnesium Total Bilirubin AST ALT Alkaline Phosphatase C-Reactive Protein Total Protein Albumin Current Medications Generic Name Dose Route Start Last Admin Trade Name Freq PRN Reason Stop Dose Admin Carvedilol 25 mg 08/13/18 22:00 08/14/18 11:09 Coreg - PO 25 mg BID LISA Administration Diazepam 5 mg 08/14/18 17:32 Valium - PO Q8H PRN WITHDRAWAL(CONT SUBST) Docusate Sodium 100 mg 08/13/18 15:11 Colace - PO BID PRN CONSTIPATION Ergocalciferol 50,000 unit 08/15/18 10:00 Drisdol - PO Tu@1000 LISA Gabapentin 300 mg 08/13/18 22:00 08/14/18 14:46 Neurontin - PO 300 mg TID LISA Administration Insulin Aspart 1 vial 08/13/18 16:30 08/14/18 17:29 Novolog Vial Sliding Scale - SQ 2 units TIDAC LISA Administration Protocol Multivitamins/Minerals/Vitamin C 1 tab 08/15/18 10:00 Tab-A-Vit - PO DAILY LISA Oxycodone/Acetaminophen 2 combo 08/14/18 17:30 Percocet 5/325 - PO Q6H PRN PAIN LEVEL 6-10 Rivaroxaban 20 mg 08/14/18 10:00 08/14/18 11:09 Xarelto - PO 20 mg DAILY LISA Administration Torsemide 50 mg 08/14/18 16:00 Demadex - PO DAILY LISA Zolpidem Tartrate 5 mg 08/13/18 15:11 08/13/18 23:52 Ambien - PO 5 mg HS PRN Administration INSOMNIA Home Medications Medication Instructions Recorded Gabapentin 300 mg PO BID 03/04/14 Oxycodone HCl/Acetaminophen 1 tab PO Q6H PRN 03/04/14 [Percocet 10-325 mg Tablet] Insulin Lispro Protamin/Lispro 22 unit SQ BID 12/15/15 [Humalog Mix 75-25 Kwikpen] Multivitamins [Multivit ([facility] 1 tab PO DAILY 03/17/16 Formulary)] Zolpidem Tartrate [Ambien] 10 mg PO HS PRN 06/01/17 Docusate Sodium [Colace -] 100 mg PO BID PRN #0 cap 06/03/17 Rivaroxaban [Xarelto -] 20 mg PO DAILY 06/22/18 Ergocalciferol [Vitamin D2] 50,000 unit PO WEEKLY 07/26/18 Leflunomide [Arava] 20 mg PO DAILY 07/26/18 Torsemide 50 mg PO DAILY 07/26/18 Carvedilol [Coreg -] 25 mg PO BID #60 tablet 07/30/18 ASSESSMENT/PLAN: 73 year old female with HTN, DM 2, Chronic Diastolic CHF, s/p Gastric Band Surgery, s/p LTK replacement with Staph infection, Chronic Lower Back Pain s/p L4/5 laminectomy, L2-S1 seroma s/p drainage, Hx PE/DVT (s/p IVC filter, on Xarelto), admitted with intractable back pain, worsening over the past 2-3 days. Pain radiated down both legs. No fever/chills. No new numbness/weakness. No bladder/bowel dysfunction. 1. Intractable Back Pain sec to DJD s/p L4/5 Laminectomy Subsequent development of L2-S1 Seroma s/p drainage CT L Spine - serosanguinous collection L3-S2 extending to posterior epidural space, with findings suspicious for gas forming bacteria. Evaluated by ID - no signs of infection appreciated and recommendation for observation without Abx therapy. Awaiting Spinal Surgery eval. Normally on oxycodone and Gabapentin. IV Morphine not effective for pain, patient asking for oral Dilaudid. Will give trial. PT ordered. 2. HTN - Continue Coreg 3. Atrial Fibrillation - continue Coreg and Xarelto 4. Elevated INR - 3.22 Etiology unclear. Will consult Hematology re: need for Vitamin K or further work-up. 5. Chronic Diastolic CHF - no evidence of acute decompensation. Continue Torsemide. 6. Mitral regurgitation - no acute decompensation. 7. DM 2 - Continue Insulin sliding scale. DVT Px - on Xarelto.
[2018-08-14] MEDS: TORSEMIDE 100 MG TABLET PO SCH (18:35)
[2018-08-14] MEDS: oxyCODONE HCL 5 MG TABLET PO PRN (20:02)
[2018-08-14 20:10] LABS: INR 1.61 (0.83-1.09); PROTHROMBIN TIME (PATIENT) 19.1 SEC (9.7-13.0)
--- NOTE | 2018-08-14 20:15 | CONSULT ---
Consult Consult Specialty:: hematology-onocology Referred by:: maisha Reason for Consultation:: elevted INR - History of Present Illness Chief Complaint: lower back pain History of Present Illness: 73 yr old woman with HTN, NIDDM, PE/DVT (10 yrs prior; with IVC filter in place) , on xarelto for afib, admitted for intractable back pain. - History Source History Provided By: Patient - Past Medical History MEDICAL ANTHROPOLOGIST: Yes: Syncope Cardio/Vascular: Yes: CHF, Deep Vein Thrombosis, HTN Pulmonary: Yes: Pulmonary Embolus Rheumatology: Yes: Rheumatoid Arthritis Endocrine: Yes: Diabetes Mellitus - Past Surgical History Past Surgical History: Yes: Bariatric Surgery (gastric band), Cholecystectomy, Hysterectomy, Joint Replacement (5 right hip replacements, 1 left hip replacement, bilateral TKR, left LTK with staph infection ), Laminectomy (back surgeries-reports 5, most rcent 06/19) - Alcohol/Substance Use Hx Alcohol Use: No - Smoking History Smoking history: Never smoked Have you smoked in the past 12 months: No Aproximately how many cigarettes per day: 0 If you are a former smoker, when did you quit?: 40 YRS - Social History Usual Living Arrangement: With Child ADL: Independent 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 History of Recent Travel: No Home Medications - Allergies Allergies/Adverse Reactions: Allergies Allergy/AdvReac Type Severity Reaction Status Date / Time levofloxacin [From Levaquin] Allergy Severe ANAPHYLAXIS Verified 08/13/18 10:19 methotrexate Allergy Severe Swelling Verified 08/13/18 10:19 Penicillins Allergy Mild Rash Verified 08/13/18 10:19 doxycycline Allergy Unknown Verified 08/13/18 10:19 bumetanide [From Bumex] Allergy Rash Verified 08/13/18 10:19 morphine AdvReac Mild Itching Verified 08/14/18 00:08 piperacillin sodium AdvReac Mild Itching Verified 08/13/18 10:19 [From Zosyn] tazobactam sodium AdvReac Mild Itching Verified 08/13/18 10:19 [From Zosyn] - Home Medications Home Medications: Ambulatory Orders Gabapentin 300 mg PO BID 03/04/14 Oxycodone HCl/Acetaminophen [Percocet 10-325 mg Tablet] 1 tab PO Q6H PRN Insulin Lispro Protamin/Lispro [Humalog Mix 75-25 Kwikpen] 22 unit SQ BID Multivitamins [Multivit ([facility] Formulary)] 1 tab PO DAILY 03/17/16 Zolpidem Tartrate [Ambien] 10 mg PO HS PRN 06/01/17 Docusate Sodium [Colace -] 100 mg PO BID PRN #0 cap 06/03/17 Rivaroxaban [Xarelto -] 20 mg PO DAILY 06/22/18 Ergocalciferol [Vitamin D2] 50,000 unit PO WEEKLY 07/26/18 Leflunomide [Arava] 20 mg PO DAILY 07/26/18 Torsemide 20 mg PO DAILY 07/26/18 Carvedilol [Coreg -] 25 mg PO BID #60 tablet 07/30/18 Insulin Degludec [Tresiba Flextouch U-100] 30 units SQ DAILY 08/16/18 Physical Exam Vital Signs: Vital Signs Temperature 97.5 F L 08/14/18 14:32 Pulse Rate 81 08/14/18 14:32 Respiratory Rate 20 08/14/18 14:32 Blood Pressure 134/82 08/14/18 14:32 O2 Sat by Pulse Oximetry (%) 97 08/14/18 09:00 Labs: CBC, BMP 08/14/18 06:30 08/14/18 06:30 Assessment/Plan INR can be elevated due to xarelto, inr improved alternate causes r/o any infection(check u/a), blood cx pending check BNP possible CHF/liver congestion can affect INR pt in severe pain during interview, placed consult for pain management
[2018-08-14] MEDS: ACETAMINOPHEN 325 MG TABLET (FP) PO PRN (20:47)
[2018-08-14] MEDS: diazePAM 5 MG TABLET PO PRN (22:26)
--- NOTE | 2018-08-14 23:17 | PN ---
Teaching Attending Note Name of Resident: Laura Cano ATTENDING PHYSICIAN STATEMENT I saw and evaluated the patient. I reviewed the resident's note and discussed the case with the resident. I agree with the resident's findings and plan as documented. ASSESSMENT AND PLAN: 73 year old female with HTN, DM 2, Chronic Diastolic CHF, s/p Gastric Band Surgery, s/p LTK replacement with Staph infection, Chronic Lower Back Pain s/p L4/5 laminectomy, L2-S1 seroma s/p drainage, Hx PE/DVT (s/p IVC filter, on Xarelto), admitted with intractable back pain, worsening over the past 2-3 days. Intractable Back Pain sec to DJD s/p L4/5 Laminectomy Subsequent development of L2-S1 Seroma s/p drainage CT L Spine - serosanguinous collection L3-S2 extending to posterior epidural space, with findings suspicious for gas forming bacteria. Evaluated by ID - no signs of infection appreciated and recommendation for observation without Abx therapy. Awaiting Spinal Surgery eval. pain management consult Elevted INR/nl PTT--on xeralto for afib PT elevation fronm xeralto ? component of coagulopathy from passive hepatic congestion versus infection No bleeding overtly will need to hold a/c prior to spinal procedurea will need ortho/spine surgery f/u
[2018-08-14 23:28] LABS: URINE APPEARANCE CLEAR; URINE BILIRUBIN NEGATIVE (<2.0 mg/dL); URINE COLOR STRAW; URINE GLUCOSE (UA) NEGATIVE (NEGATIVE); URINE KETONE NEGATIVE (NEGATIVE); URINE LEUK ESTERASE NEGATIVE (NEGATIVE); URINE NITRITE NEGATIVE (NEGATIVE); URINE PROTEIN NEGATIVE (NEGATIVE); URINE UROBILINOGEN NEGATIVE mg/dL (0.2-1.0)
[2018-08-15] MEDS: ZOLPIDEM TARTRATE 5 MG TABLET PO PRN ×2 (01:10→23:21)
--- NOTE | 2018-08-15 02:05 | HOSP ---
Subjective - Review of Symptoms Events since last encounter: SUBJECTIVE: Paged by Nursing to call Radiology supervisor purification. Pelvis CT findings of encapsulated paraspinal collection of fluid with questionably enhancing rim, 7.1 x 5.6 cm transversely and atleast 6.5cm craniocaudally at the L4-S1 levels. Patient says her pain is the same and has not increased since earlier today. Denies any loss of bowel or bladder control. OBJECTIVE: Vital Signs Temperature 97.4 F L 08/15/18 01:55 Pulse Rate 73 08/15/18 01:55 Respiratory Rate 18 08/15/18 01:55 Blood Pressure 118/61 08/15/18 01:55 O2 Sat by Pulse Oximetry (%) 97 08/14/18 09:00 Lying with head of bed slightly elevated, NAD RRR S1S2 CTA B/L Abd Soft, obese, not tender to palpation A&Ox3, EOMI, PERRL, CN II-XII intact. C5-T1 gross sensation intact. Decreased L4 -S1 sensation on the Right. 1/5 Muscle strength to Right Hip Flexion. 4/5 muscle strength to Right Knee Flexion and Knee extension. 4/5 muscle strength to Left hip flexion. 4/5 muscle strength to b/l handgrip, elbow flexion/ extension, platarflexion, dorsiflexion. Able to perform rapid hand movements and finger to nose. (unchanged from known deficits) A/P: #L4-S1 Paraspinal Abscess -CT pelvis with and without contrast prelim read reviewed -Call placed to Dr. Borjas's Service x 5, My cellphone number was left -Started on Vanco 1500mg Q12H, Cefepime 2g Q8H -Neurochecks Q1H -If neuro deficits arise, low threshold for ICU for further management -Rest per primary team and Ortho <Kristy Berry - Last Filed: 08/15/18 06:57> Physical Examination Vital Signs: Vital Signs Temperature 97.5 F L 08/14/18 14:32 Pulse Rate 82 08/14/18 23:00 Respiratory Rate 20 08/14/18 23:00 Blood Pressure 131/66 08/14/18 23:00 O2 Sat by Pulse Oximetry (%) 97 08/14/18 09:00 Labs: CBC, BMP 08/14/18 06:30 08/14/18 06:30 <Kristy Berry - Last Filed: 08/15/18 06:57> Vital Signs: Vital Signs Temperature 98 F 08/23/18 14:13 Pulse Rate 65 08/23/18 14:13 Respiratory Rate 08/23/18 14:13 Blood Pressure 94/48 L 08/23/18 14:13 O2 Sat by Pulse Oximetry (%) 91 L 08/23/18 10:00 Labs: CBC, BMP 08/22/18 06:35 08/22/18 06:35 <Gregg Osuna - Last Filed: 08/28/18 19:41> Hospitalist Encounter Assessment: Seen and examined;agree with all the above aside form as edited by me in my own note. Thank you. Was present for all vital parts of encounter; plan discussed with me. Agree with above as documented by the resident. <Gregg Osuna - Last Filed: 08/28/18 19:41> Visit type - Emergency Visit Emergency Visit: Yes ED Registration Date: 08/13/18 Care time: The patient presented to the Emergency Department on the above date and was hospitalized for further evaluation of their emergent condition. - New Patient This patient is new to me today: Yes Date on this admission: 08/15/18 - Critical Care Critical Care patient: No <Kristy Berry - Last Filed: 08/15/18 06:57>
[2018-08-15] MEDS ORDERED: VANCOMYCIN 1,500 MG in DEXTROSE 5%-WATER - 250 ML IVPB SCH (02:30)
[2018-08-15] MEDS ORDERED: VANCOMYCIN 1,500 MG in DEXTROSE 5%-WATER - 500 ML IVPB ONE (02:30)
[2018-08-15] MEDS ORDERED: CEFEPIME HCL/D5W 2 GM/50 ML BAG IVPB SCH (02:30)
[2018-08-15] MEDS: CEFEPIME 2 GM in DEXTROSE 5%-WATER - 100 ML IVPB SCH ×2 (02:41→10:03)
[2018-08-15] MEDS: GABAPENTIN 300 MG CAPSULE (FP) PO SCH ×3 (06:05→21:11)
[2018-08-15] MEDS: ACETAMINOPHEN 325 MG TABLET (FP) PO PRN ×3 (06:06→16:41)
[2018-08-15] MEDS: oxyCODONE HCL 5 MG TABLET PO PRN ×4 (06:06→21:11)
[2018-08-15] MEDS ORDERED: PT OWN MED DRAWER 7, Y5N ONE (06:39)
[2018-08-15] MEDS: INSULIN SLIDING SCALE (NOVOLOG) 1 VIAL SQ SCH ×3 (06:43→16:45)
[2018-08-15 06:49] LABS: HEMATOCRIT 31.7 % (32.4-45.2); HEMOGLOBIN 9.9 GM/dL (10.7-15.3); MCH 26.6 pg (25.7-33.7); MCHC 31.1 g/dl (32.0-36.0); MEAN CELL VOLUME 85.6 fl (80-96); MEAN PLT VOLUME 7.6 fl (7.5-11.1); PLATELET COUNT 272 K/MM3 (134-434); RBC 3.71 M/mm3 (3.60-5.2); RDW 15.8 % (11.6-15.6)
[2018-08-15] MEDS ORDERED: INSULIN (NOVOLOG) ASPART 100 UNITS/ML 10ML VIAL ONE ×2 (06:57→10:49)
[2018-08-15 07:25] LABS: ANION GAP 6 MMOL/L (8-16); BLOOD UREA NITROGEN 15 mg/dL (7-18); CALCIUM 7.9 mg/dL (8.5-10.1); CHLORIDE 99 mmol/L (98-107); CO2 32 mmol/L (21-32); CREATININE 0.8 mg/dL (0.55-1.3); GLUCOSE,RANDOM 231 mg/dL (74-106); PHOSPHOROUS 3.6 mg/dL (2.5-4.9); POTASSIUM 3.4 mmol/L (3.5-5.1); SODIUM 136 mmol/L (136-145)
[2018-08-15] MEDS: ERGOCALCIFEROL (VITAMIN D2) 50,000 UNIT CAPSULE (FP) PO SCH (10:01)
[2018-08-15] MEDS: MULTIVITAMINS (DAILY MVI) TABLET (FP) PO SCH (10:01)
[2018-08-15] MEDS: RIVAROXABAN 20 MG TABLET PO SCH (10:01)
[2018-08-15] MEDS: TORSEMIDE 100 MG TABLET PO SCH (10:02)
[2018-08-15] MEDS: CARVEDILOL 25 MG TABLET (FP) PO SCH ×2 (10:13→21:11)
[2018-08-15] MEDS: POTASSIUM CHLORIDE TABS 20 MEQ TABLET.ER (FP) PO SCH ×2 (10:51→21:10)
--- NOTE | 2018-08-15 11:30 | PN ---
Physical Exam: SUBJECTIVE: Patient seen and examined this AM. She is complaining of severe back pain still. OBJECTIVE: Vital Signs Period Temp Pulse Resp BP Sys/Marcelo Pulse Ox Last 24 Hr 97.4 F-98.4 F 70-82 18-20 110-138/57-82 GENERAL: A&O, minimal distress HEAD: Normocephalic, atraumatic. EYES: PERRL, no scleral icterus NECK: supple without lymphadenopathy LUNGS: CTA b/l, no crackles or wheezes HEART: Regular rate and rhythm, normal S1 and S2 without murmur ABDOMEN: Obese, Soft, nontender to palpation, normoactive bowel sounds MUSCULOSKELETAL: No bony deformities or tenderness. NEUROLOGICAL: Cranial nerves II-XII grossly intact. Normal speech. Laboratory Results - last 24 hr 08/14/18 08/14/18 08/14/18 06:30 11:56 17:28 WBC RBC Hgb Hct MCV MCH MCHC RDW Plt Count MPV ESR 88 H PT with INR INR Sodium Potassium Chloride Carbon Dioxide Anion Gap BUN Creatinine Creat Clearance w eGFR POC Glucometer 239 249 Random Glucose Calcium Phosphorus Magnesium B-Natriuretic Peptide Urine Color Urine Appearance Urine pH Ur Specific Pep Urine Protein Urine Glucose (UA) Urine Ketones Urine Blood Urine Nitrite Urine Bilirubin Urine Urobilinogen Ur Leukocyte Esterase 08/14/18 08/14/18 08/15/18 19:00 23:11 06:00 WBC 8.0 RBC 3.71 Hgb 9.9 L Hct 31.7 L MCV 85.6 MCH 26.6 MCHC 31.1 L RDW 15.8 H Plt Count 272 MPV 7.6 ESR PT with INR 19.10 H INR 1.61 H Sodium Potassium Chloride Carbon Dioxide Anion Gap BUN Creatinine Creat Clearance w eGFR POC Glucometer Random Glucose Calcium Phosphorus Magnesium B-Natriuretic Peptide Urine Color Straw Urine Appearance Clear Urine pH 5.0 Ur Specific Pep 1.032 Urine Protein Negative Urine Glucose (UA) Negative Urine Ketones Negative Urine Blood Negative Urine Nitrite Negative Urine Bilirubin Negative Urine Urobilinogen Negative Ur Leukocyte Esterase Negative 08/15/18 08/15/18 08/15/18 06:00 06:00 06:21 WBC RBC Hgb Hct MCV MCH MCHC RDW Plt Count MPV ESR PT with INR INR Sodium 136 Potassium 3.4 L Chloride 99 Carbon Dioxide 32 Anion Gap 6 L BUN 15 Creatinine 0.8 Creat Clearance w eGFR > 60 POC Glucometer 243 Random Glucose 231 H Calcium 7.9 L Phosphorus 3.6 Magnesium 2.0 B-Natriuretic Peptide 2744.0 H Urine Color Urine Appearance Urine pH Ur Specific Pep Urine Protein Urine Glucose (UA) Urine Ketones Urine Blood Urine Nitrite Urine Bilirubin Urine Urobilinogen Ur Leukocyte Esterase Active Medications Generic Name Dose Route Start Last Admin Trade Name Freq PRN Reason Stop Dose Admin Acetaminophen 650 mg 08/14/18 18:01 08/15/18 06:06 Tylenol - PO 650 mg Q6H PRN Administration PAIN LEVEL 6-10 Carvedilol 25 mg 08/13/18 22:00 08/15/18 10:13 Coreg - PO 25 mg BID LISA Administration Diazepam 5 mg 08/14/18 17:32 08/14/18 22:26 Valium - PO 5 mg Q8H PRN Administration WITHDRAWAL(CONT SUBST) Docusate Sodium 100 mg 08/13/18 15:11 Colace - PO BID PRN CONSTIPATION Ergocalciferol 50,000 unit 08/15/18 10:00 08/15/18 10:01 Drisdol - PO 50,000 unit Tu@1000 LISA Administration Gabapentin 300 mg 08/13/18 22:00 08/15/18 06:05 Neurontin - PO 300 mg TID LISA Administration Cefepime HCl 2 gm in 50 mls @ 100 mls/hr 08/15/18 02:30 Maxipime 2gm Ivpb (Premix) IVPB Q8H-IV LISA Protocol Vancomycin HCl 1,500 mg/ 250 mls @ 166.667 mls/hr 08/15/18 02:30 Dextrose IVPB Q12H LISA Protocol Cefepime HCl 2 gm/ Dextrose 100 mls @ 200 mls/hr 08/15/18 02:45 08/15/18 10: 03 IVPB 08/15/18 11:14 200 mls/hr Q8H LISA Administration Insulin Aspart 1 vial 08/13/18 16:30 08/15/18 06:43 Novolog Vial Sliding Scale - SQ 2 units TIDAC LISA Administration Protocol Multivitamins/Minerals/Vitamin C 1 tab 08/15/18 10:00 08/15/18 10:01 Tab-A-Vit - PO 1 tab DAILY LISA Administration Oxycodone HCl 10 mg 08/14/18 18:01 08/15/18 06:06 Roxicodone - PO 10 mg Q6H PRN Administration PAIN LEVEL 6-10 Potassium Chloride 40 meq 08/15/18 10:00 08/15/18 10:51 K-Dur - PO 08/15/18 22:01 40 meq BID LISA Administration Rivaroxaban 20 mg 08/14/18 10:00 08/15/18 10:01 Xarelto - PO 20 mg DAILY LISA Administration Torsemide 50 mg 08/14/18 16:00 08/15/18 10:02 Demadex - PO 50 mg DAILY LISA Administration Zolpidem Tartrate 5 mg 08/13/18 15:11 08/15/18 01:10 Ambien - PO 5 mg HS PRN Administration INSOMNIA ASSESSMENT/PLAN: 73 y/o F with h/o HTN, NIDDM, HFpEF (06/19/18 EF ~50%), intractable lower back pain s/p L4-L5 s/p laminectomy, L2-S1 seroma s/p drainage, 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 Lower Back Pain -s/p L4-L5 laminectomy, seroma with IR drainage -Pain control with Percocet 10 Q4, Valium 5 mg PO Q8 -Neurontin 300 mg PO BID -CT noted with interval air pockets, pelvic CT with air and fluid collection noted -ID consult appreciated, no Abx at this time -Case discussed with Dr. Borjas, CT findings are likely myxomatous collection routinely seen in post op spine patients, very unlikely infxn -Likely for CT guided marcaine injection into left SI joint, could require repeat lumbar/sacral exlporation in [place] HFpEF -EF 50% in 06/19/18 -Pt has appointment with Cardiology outpatient tomorrow which she will likely miss -Requesting to be seen by cardiology here, consult placed NIDDM -BGMs ACHS -Insulin sliding scale for glycemic control Hx DVT/PE -On Xarelto, with IVC filter ->10 yrs ago DVT Prophylaxis -Xarelto 20 mg PO Daily, would need to be held for any spine procedure FEN -Fluids: none -Electrolytes: No electrolyte abnormalities, BMP in AM -Nutrition: Na controlled diet Disposition Med/Surg Visit type - Emergency Visit Emergency Visit: Yes ED Registration Date: 08/13/18 Care time: The patient presented to the Emergency Department on the above date and was hospitalized for further evaluation of their emergent condition. - New Patient This patient is new to me today: No - Critical Care Critical Care patient: No
--- NOTE | 2018-08-15 12:11 | PN ---
Teaching Attending Note Name of Resident: Jeffery Burrell ATTENDING PHYSICIAN STATEMENT I saw and evaluated the patient. I reviewed the resident's note and discussed the case with the resident. I agree with the resident's findings and plan as documented. SUBJECTIVE: Patient complains of low back pain. OBJECTIVE: Vital Signs Period Temp Pulse Resp BP Sys/Marcelo Pulse Ox Last 24 Hr 97.4 F-98.4 F 70-82 18-20 110-138/57-82 HEART: S1S2, RRR LUNGS: Clear ABDOMEN: Obese, soft, non-tender, non-distended, normal BS EXTREMITIES: No edema Laboratory Results - last 24 hr 08/14/18 08/14/18 08/14/18 11:56 17:28 19:00 WBC RBC Hgb Hct MCV MCH MCHC RDW Plt Count MPV PT with INR 19.10 H INR 1.61 H Sodium Potassium Chloride Carbon Dioxide Anion Gap BUN Creatinine Creat Clearance w eGFR POC Glucometer 239 249 Random Glucose Calcium Phosphorus Magnesium B-Natriuretic Peptide Urine Color Urine Appearance Urine pH Ur Specific [place] Urine Protein Urine Glucose (UA) Urine Ketones Urine Blood Urine Nitrite Urine Bilirubin Urine Urobilinogen Ur Leukocyte Esterase 08/14/18 08/15/18 08/15/18 23:11 06:00 06:00 WBC 8.0 RBC 3.71 Hgb 9.9 L Hct 31.7 L MCV 85.6 MCH 26.6 MCHC 31.1 L RDW 15.8 H Plt Count 272 MPV 7.6 PT with INR INR Sodium 136 Potassium 3.4 L Chloride 99 Carbon Dioxide 32 Anion Gap 6 L BUN 15 Creatinine 0.8 Creat Clearance w eGFR > 60 POC Glucometer Random Glucose 231 H Calcium 7.9 L Phosphorus 3.6 Magnesium 2.0 B-Natriuretic Peptide Urine Color Straw Urine Appearance Clear Urine pH 5.0 Ur Specific [place] 1.032 Urine Protein Negative Urine Glucose (UA) Negative Urine Ketones Negative Urine Blood Negative Urine Nitrite Negative Urine Bilirubin Negative Urine Urobilinogen Negative Ur Leukocyte Esterase Negative 08/15/18 08/15/18 08/15/18 06:00 06:21 11:12 WBC RBC Hgb Hct MCV MCH MCHC RDW Plt Count MPV PT with INR INR Sodium Potassium Chloride Carbon Dioxide Anion Gap BUN Creatinine Creat Clearance w eGFR POC Glucometer 243 289 Random Glucose Calcium Phosphorus Magnesium B-Natriuretic Peptide 2744.0 H Urine Color Urine Appearance Urine pH Ur Specific [place] Urine Protein Urine Glucose (UA) Urine Ketones Urine Blood Urine Nitrite Urine Bilirubin Urine Urobilinogen Ur Leukocyte Esterase Current Medications Generic Name Dose Route Start Last Admin Trade Name Freq PRN Reason Stop Dose Admin Acetaminophen 650 mg 08/15/18 11:26 Tylenol - PO Q4H PRN PAIN LEVEL 6-10 Carvedilol 25 mg 08/13/18 22:00 08/15/18 10:13 Coreg - PO 25 mg BID LISA Administration Diazepam 5 mg 08/14/18 17:32 08/14/18 22:26 Valium - PO 5 mg Q8H PRN Administration WITHDRAWAL(CONT SUBST) Docusate Sodium 100 mg 08/13/18 15:11 Colace - PO BID PRN CONSTIPATION Ergocalciferol 50,000 unit 08/15/18 10:00 08/15/18 10:01 Drisdol - PO 50,000 unit Tu@1000 LISA Administration Gabapentin 300 mg 08/13/18 22:00 08/15/18 06:05 Neurontin - PO 300 mg TID LISA Administration Cefepime HCl 2 gm in 50 mls @ 100 mls/hr 08/15/18 02:30 Maxipime 2gm Ivpb (Premix) IVPB Q8H-IV LISA Protocol Vancomycin HCl 1,500 mg/ 250 mls @ 166.667 mls/hr 08/15/18 02:30 Dextrose IVPB Q12H LISA Protocol Insulin Aspart 1 vial 08/13/18 16:30 08/15/18 11:14 Novolog Vial Sliding Scale - SQ 4 units TIDAC LISA Administration Protocol Multivitamins/Minerals/Vitamin C 1 tab 08/15/18 10:00 08/15/18 10:01 Tab-A-Vit - PO 1 tab DAILY LISA Administration Oxycodone HCl 10 mg 08/15/18 11:27 Roxicodone - PO Q4H PRN PAIN LEVEL 6-10 Potassium Chloride 40 meq 08/15/18 10:00 08/15/18 10:51 K-Dur - PO 08/15/18 22:01 40 meq BID LISA Administration Rivaroxaban 20 mg 08/14/18 10:00 08/15/18 10:01 Xarelto - PO 20 mg DAILY LISA Administration Torsemide 50 mg 08/14/18 16:00 08/15/18 10:02 Demadex - PO 50 mg DAILY LISA Administration Zolpidem Tartrate 5 mg 08/13/18 15:11 08/15/18 01:10 Ambien - PO 5 mg HS PRN Administration INSOMNIA ASSESSMENT AND PLAN: This is a 73 year old woman with a history of HTN, type 2 DM, chronic diastolic heart failure, lap band, left TKR complicated by Staph infection, chronic low back pain, L4/5 laminectomy, L2-S1 seroma s/p drainage, PE/DVT, IVC filter who presented to the ED with worsening back pain radiating down both legs. 1. Intractable back pain, DDD, history of L4-5 laminectomy, drainage of L2-S1 seroma - CT L-spine and pelvis shows fluid collection L3-S2 extending to posterior epidural space, with findings suspicious for gas forming bacteria - As per ID and ortho, no evidence of infection, so antibiotics will be discontinued - Continue Neurontin - Physical therapy 2. HTN - Continue Coreg, Demadex 3. Atrial fibrillation, paroxysmal - Currently in sinus rhythm - Continue Coreg, Xarelto 4. Chronic systolic and diastolic heart failure - Stable - Continue Coreg, Demadex 5. Mitral regurgitation 6. Type 2 DM - Continue Novolog sliding scale 7. Obesity, history of lap band 8. History of DVT/PE - Continue Xarelto - Has IVC filter
--- NOTE | 2018-08-15 15:21 | CON.CARD ---
Consult Consult Specialty:: cardio - History of Present Illness Chief Complaint: back pain History of Present Illness: 73 F here with back and leg pain, dx'd with serosanguinous collection L3-S2 extending to posterior epidural space, Awaiting Spinal Surgery eval. did not received torsemide yest (takes 50 qd at home)--felt as if she was "filling up with fluid", i.e. heaviness in chest restricting her from getting deep breath. no leg swelling. 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 Cardio/Vascular: Yes: CHF, Deep Vein Thrombosis, HTN Pulmonary: Yes: Pulmonary Embolus Rheumatology: Yes: Rheumatoid Arthritis Endocrine: Yes: Diabetes Mellitus - Past Surgical History Past Surgical History: Yes: Bariatric Surgery (gastric band), Cholecystectomy, Hysterectomy, Joint Replacement (5 right hip replacements, 1 left hip replacement, bilateral TKR, left LTK with staph infection ), Laminectomy (back surgeries-reports 5, most rcent 06/19) - Alcohol/Substance Use Hx Alcohol Use: No - Smoking History Smoking history: Never smoked Have you smoked in the past 12 months: No Aproximately how many cigarettes per day: 0 If you are a former smoker, when did you quit?: 40 YRS - Social History Usual Living Arrangement: With Child ADL: Independent 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 History of Recent Travel: No Home Medications - Allergies Allergies/Adverse Reactions: Allergies Allergy/AdvReac Type Severity Reaction Status Date / Time levofloxacin [From Levaquin] Allergy Severe ANAPHYLAXIS Verified 08/13/18 10:19 methotrexate Allergy Severe Swelling Verified 08/13/18 10:19 Penicillins Allergy Mild Rash Verified 08/13/18 10:19 doxycycline Allergy Unknown Verified 08/13/18 10:19 bumetanide [From Bumex] Allergy Rash Verified 08/13/18 10:19 morphine AdvReac Mild Itching Verified 08/14/18 00:08 piperacillin sodium AdvReac Mild Itching Verified 08/13/18 10:19 [From Zosyn] tazobactam sodium AdvReac Mild Itching Verified 08/13/18 10:19 [From Zosyn] - Home Medications Home Medications: Ambulatory Orders Gabapentin 300 mg PO BID 03/04/14 Oxycodone HCl/Acetaminophen [Percocet 10-325 mg Tablet] 1 tab PO Q6H PRN Insulin Lispro Protamin/Lispro [Humalog Mix 75-25 Kwikpen] 22 unit SQ BID Multivitamins [Multivit ([facility] Formulary)] 1 tab PO DAILY 03/17/16 Zolpidem Tartrate [Ambien] 10 mg PO HS PRN 06/01/17 Docusate Sodium [Colace -] 100 mg PO BID PRN #0 cap 06/03/17 Rivaroxaban [Xarelto -] 20 mg PO DAILY 06/22/18 Ergocalciferol [Vitamin D2] 50,000 unit PO WEEKLY 07/26/18 Leflunomide [Arava] 20 mg PO DAILY 07/26/18 Torsemide 50 mg PO DAILY 07/26/18 Carvedilol [Coreg -] 25 mg PO BID #60 tablet 07/30/18 Family Disease History - Family Disease History Family History: Denies (no known cmp) Review of Systems - Review of Systems Constitutional: denies: Chills, Fever Eyes: denies: Eye Pain HENT: denies: Nasal Congestion Neck: denies: Stiffness Cardiovascular: denies: Palpitations Respiratory: denies: Orthopnea, PND Gastrointestinal: denies: Diarrhea, Rectal Bleeding Genitourinary: denies: Burning, Hematuria Musculoskeletal: denies: Muscle Pain Integumentary: denies: Rash Neurological: denies: Numbness, Seizure, Syncope Endocrine: denies: Excessive Sweating Hematology/Lymphatic: denies: Excessive Bleeding Vital Signs: Vital Signs Temperature 98.3 F 08/15/18 10:17 Pulse Rate 70 08/15/18 10:17 Respiratory Rate 18 08/15/18 10:17 Blood Pressure 138/68 08/15/18 10:17 O2 Sat by Pulse Oximetry (%) 96 08/15/18 09:00 Constitutional: Yes: Well Nourished, No Distress Eyes: No: Sclera Icterus HENT: No: Nasal Congestion Neck: No: Decreased ROM Respiratory: Yes: CTA Bilaterally. No: Accessory Muscle Use, Rales, Wheezes Gastrointestinal: Yes: Normal Bowel Sounds. No: Distention, Hepatomegaly, Palpable Mass, Tenderness Cardiovascular: Yes: Regular Rate and Rhythm JVD: No Carotid Bruit: No PMI: Non-Displaced Heart Sounds: Yes: S1, S2. No: Gallop Murmur: No: Systolic Murmur, Diastolic Murmur Musculoskeletal: Yes: Other (No kyphosis) Extremities: No: Cold, Cyanosis Edema: No Peripheral Pulses: 2+ Left Carotid, 2+ Right Carotid, 2+ Left Doralis Pedis, 2+ Right Dorsalis Pedis Integumentary: No: Jaundice Neurological: Yes: Alert, Oriented (x3) Psychiatric: No: Agitated - Other Data Labs, Other Data: CBC, BMP 08/15/18 06:00 08/15/18 06:00 INR, PTT INR 1.61 (0.83-1.09) H 08/14/18 19:00 Troponin, BNP 08/15/18 06:00 B-Natriuretic Peptide 2744.0 H Troponin, BNP 08/15/18 06:00 B-Natriuretic Peptide 2744.0 H Laboratory Tests 08/15/18 08/15/18 06:00 06:00 Sodium 136 Potassium 3.4 L Carbon Dioxide 32 BUN 15 Creatinine 0.8 B-Natriuretic Peptide 2744.0 H Assessment/Plan echo here 06/2018: nl lv, rv tds, mild mr, nl rvsp echo (office) 03/25: 1. The left ventricular size is normal. 2. Overall left ventricular systolic function is normal with, an EF between 55 - 60 %. Watts's EF calculation (apical 4 chamber) = 62%. 3. LA pressure is probably elevated. 4. The right ventricle is normal in size and function. 5. Left atrium is normal size by volume. 6. The mitral valve leaflets are mildly thickened. Posterior leaflet is tethered in motion. 7. Moderate mitral regurgitation is present (central jet). No systolic flow reversal present in pulmonary vein. 8. Unable to estimate RVSP due to inadequate TR jet spectral doppler profile; it is at least 36 mmHg (i.e. mildly elevated). echo here 06/01/17: nl lv, nl rv size, mild fernando, sev mr, mild tr, nl rvsp echo in office 05/09/2017: mild-mod lve, lvef 30-35%, global hk, nl rv size, mild dec rv fcn, mild lae, mod-sev mr mibi 05/2014: no ischemia, mildly reduced lvef cath 2005: normal cors a/p: 71 f hx multiple PEs/DVTs s/p ivc filter and on xarelto dm, hld, htn, sys chf, here with back/leg pain, found with para-spinal fluid collection chronic mised systolic/diastolic HF: -nonisch CMP dx'd 2014 (L/RHC moderately elevated wedge (25) and corresponding elevation in PAPs (50/25); NORMAL CORONARIES -severely reduced cardiac index on that RHC -more recent echo as outpt shows normalization in EF, ? related to improved med compliance, ? wt loss-->NICHOLE improved (untreated before). -echo here 06/25 unremarkable, had volume overload at that time related to hypotension requiring diuretics held, and IVF treatment--sent out on torsemide 20 qd, DORENE held for low bp. -then again with PNA 07/25 causing chf exacerbation--sent out on torsemide 50 qd , carvedilol 25 bid, lisinopril 5 qd -BNP 2K (baseline range 2-3K) -no volume on exam. c/o atypical sob sx's but feels similar to when retains fluid in past, i.e. if misses a dose of torsemide. received yest's dose late-- cont torsemide 50 po qd for now, low threshold to incr to 100 qd if sob worsens. -cxr for congestion, effusions (exam normal) -tolerate sbp > 90 here -despite EF normalized, prefer to maintain BB and DORENE regimen, as these meds may have been reason for improvement in systolic fxn. -cont carvedilol 25 bid. -resume lisinopril--change to 2.5 bid (creat, K, bp all ok) s/p spine surgery, back pain, fluid collection: -per ID, neurosurgery, hospitalist Atrial fibrillation - new diagnosis when here 07/25 with PNA - carvedilol dose (previously lowered due to low bp's) increased to 25 mg BID for rapid HRs--improved - in sinus on exam, HR good--cont same bb - on xarelto for DVT/PE, continue same (GFR > 60) HTN: - stable, controlled without lows at the moment - same meds h/o VTEs (DVTs and PEs): -s/p IVC filter -on lifelong AC per prior plan (felt to be hypercoagulable by heme) - continue xarelto NICHOLE: -not compliant with cpap DM: -chronically uncontrolled, doesn't f/u with PMD often -per hospitalist
[2018-08-15] MEDS ORDERED: MELATONIN 5 MG TABLETS PO PRN (17:49)
[2018-08-15] MEDS: LISINOPRIL 5 MG TABLET (FP) PO SCH (21:13)
[2018-08-15] MEDS: DOCUSATE SODIUM 100 MG CAPSULE (FP) PO PRN (23:21)
[2018-08-16] MEDS: diazePAM 5 MG TABLET PO PRN ×2 (01:00→22:17)
[2018-08-16] MEDS: INSULIN SLIDING SCALE (NOVOLOG) 1 VIAL SQ SCH ×3 (06:05→17:25)
[2018-08-16] MEDS: DOCUSATE SODIUM 100 MG CAPSULE (FP) PO PRN ×2 (06:05→23:38)
[2018-08-16] MEDS: GABAPENTIN 300 MG CAPSULE (FP) PO SCH ×3 (06:05→22:16)
[2018-08-16] MEDS: oxyCODONE HCL 5 MG TABLET PO PRN ×3 (06:07→18:21)
[2018-08-16 06:44] LABS: HEMATOCRIT 30.1 % (32.4-45.2); HEMOGLOBIN 9.4 GM/dL (10.7-15.3); MCH 26.7 pg (25.7-33.7); MCHC 31.3 g/dl (32.0-36.0); MEAN CELL VOLUME 85.3 fl (80-96); MEAN PLT VOLUME 7.7 fl (7.5-11.1); PLATELET COUNT 263 K/MM3 (134-434); RBC 3.53 M/mm3 (3.60-5.2); RDW 16.1 % (11.6-15.6); WHITE BLOOD COUNT 7.6 K/mm3 (4.0-10.0)
[2018-08-16 07:09] LABS: ANION GAP 5 MMOL/L (8-16); BLOOD UREA NITROGEN 26 mg/dL (7-18); CALCIUM 8.4 mg/dL (8.5-10.1); CHLORIDE 102 mmol/L (98-107); CO2 30 mmol/L (21-32); CREATININE 1.3 mg/dL (0.55-1.3); GLUCOSE,RANDOM 189 mg/dL (74-106); MAGNESIUM 2.1 mg/dL (1.8-2.4); PHOSPHOROUS 4.6 mg/dL (2.5-4.9); POTASSIUM 4.8 mmol/L (3.5-5.1); SODIUM 138 mmol/L (136-145)
[2018-08-16] MEDS ORDERED: PT OWN MED DRAWER 7, Y5N ONE (09:37)
[2018-08-16] MEDS: MULTIVITAMINS (DAILY MVI) TABLET (FP) PO SCH (10:31)
[2018-08-16] MEDS: LISINOPRIL 5 MG TABLET (FP) PO SCH ×2 (10:32→22:16)
[2018-08-16] MEDS: CARVEDILOL 25 MG TABLET (FP) PO SCH ×2 (10:32→22:16)
[2018-08-16] MEDS: RIVAROXABAN 20 MG TABLET PO SCH (10:32)
[2018-08-16] MEDS: ACETAMINOPHEN 325 MG TABLET (FP) PO PRN (10:36)
[2018-08-16] MEDS: TORSEMIDE 100 MG TABLET PO SCH (10:54)
[2018-08-16] MEDS ORDERED: INSULIN (NOVOLOG) ASPART 100 UNITS/ML 10ML VIAL ONE (11:24)
--- NOTE | 2018-08-16 16:22 | PN ---
Physical Exam: SUBJECTIVE: Patient seen and examined this AM. She states her pain is improving , however expresses frustration with the lack of definitive explanation for her pain. She states she does not want to go to rehab as she is currently moving and needs to be around to supervise the packing. She states also that she does not want to go home and then come back again with the same problem. OBJECTIVE: Vital Signs Period Temp Pulse Resp BP Sys/Marcelo Pulse Ox Last 24 Hr 97.5 F-99.5 F 64-80 18-18 88-127/43-68 94 GENERAL: A&O, minimal distress HEAD: Normocephalic, atraumatic. EYES: PERRL, no scleral icterus NECK: supple without lymphadenopathy LUNGS: CTA b/l, no crackles or wheezes HEART: Regular rate and rhythm, normal S1 and S2 without murmur ABDOMEN: Obese, Soft, nontender to palpation, normoactive bowel sounds MUSCULOSKELETAL: No bony deformities, some tenderness on palpation of lower back NEUROLOGICAL: Cranial nerves II-XII grossly intact. Normal speech. Laboratory Results - last 24 hr 08/15/18 08/16/18 08/16/18 16:19 05:36 06:00 WBC 7.6 RBC 3.53 L Hgb 9.4 L Hct 30.1 L MCV 85.3 MCH 26.7 MCHC 31.3 L RDW 16.1 H Plt Count 263 MPV 7.7 Sodium Potassium Chloride Carbon Dioxide Anion Gap BUN Creatinine Creat Clearance w eGFR POC Glucometer 232 205 Random Glucose Calcium Phosphorus Magnesium 08/16/18 08/16/18 08/16/18 06:00 09:58 11:22 WBC RBC Hgb Hct MCV MCH MCHC RDW Plt Count MPV Sodium 138 Potassium 4.8 Chloride 102 Carbon Dioxide 30 Anion Gap 5 L BUN 26 H Creatinine 1.3 Creat Clearance w eGFR 40.26 POC Glucometer 160 249 Random Glucose 189 H Calcium 8.4 L Phosphorus 4.6 Magnesium 2.1 Active Medications Generic Name Dose Route Start Last Admin Trade Name Freq PRN Reason Stop Dose Admin Acetaminophen 650 mg 08/15/18 11:26 08/16/18 10:36 Tylenol - PO 650 mg Q4H PRN Administration PAIN LEVEL 6-10 Carvedilol 25 mg 08/13/18 22:00 08/16/18 10:32 Coreg - PO 25 mg BID LISA Administration Diazepam 5 mg 08/14/18 17:32 08/16/18 01:00 Valium - PO 5 mg Q8H PRN Administration WITHDRAWAL(CONT SUBST) Docusate Sodium 100 mg 08/13/18 15:11 08/16/18 06:05 Colace - PO 100 mg BID PRN Administration CONSTIPATION Ergocalciferol 50,000 unit 08/15/18 10:00 08/15/18 10:01 Drisdol - PO 50,000 unit Tu@1000 LISA Administration Gabapentin 300 mg 08/13/18 22:00 08/16/18 14:32 Neurontin - PO Not Given TID LISA Insulin Aspart 1 vial 08/13/18 16:30 08/16/18 11:58 Novolog Vial Sliding Scale - SQ 2 units TIDAC LISA Administration Protocol Lisinopril 2.5 mg 08/15/18 22:00 08/16/18 10:32 Prinivil PO 2.5 mg BID LISA Administration Melatonin 5 mg 08/15/18 17:49 Melatonin PO HS PRN INSOMNIA Multivitamins/Minerals/Vitamin C 1 tab 08/15/18 10:00 08/16/18 10:31 Tab-A-Vit - PO 1 tab DAILY LISA Administration Oxycodone HCl 10 mg 08/15/18 11:27 08/16/18 10:35 Roxicodone - PO 10 mg Q4H PRN Administration PAIN LEVEL 6-10 Rivaroxaban 20 mg 08/14/18 10:00 08/16/18 10:32 Xarelto - PO 20 mg DAILY LISA Administration Torsemide 50 mg 08/14/18 16:00 08/16/18 10:54 Demadex - PO 50 mg DAILY LISA Administration Zolpidem Tartrate 5 mg 08/13/18 15:11 08/15/18 23:21 Ambien - PO 5 mg HS PRN Administration INSOMNIA ASSESSMENT/PLAN: 73 y/o F with h/o HTN, NIDDM, HFpEF (06/19/18 EF ~50%), intractable lower back pain s/p L4-L5 s/p laminectomy, L2-S1 seroma s/p drainage, 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 Lower Back Pain -s/p L4-L5 laminectomy, seroma with IR drainage -Pain control with Percocet 10 Q4, Valium 5 mg PO Q8 -Neurontin 300 mg PO BID -CT noted with interval air pockets, pelvic CT with air and fluid collection noted -ID consult appreciated, no Abx at this time -Case discussed with Dr. Borjas, CT findings are likely myxomatous collection routinely seen in post op spine patients, very unlikely infxn -As per Ortho: Likely for CT guided marcaine injection into left SI joint, could require repeat lumbar/sacral exlporation in [place] -Pain management consult placed, will await further recommendations HFpEF -EF 50% in 06/19/18 -Cardiology consult appreciated -Prinivil started, pt currently with borderline low blood pressure, will reevaluate and hold overnight if needed NIDDM -BGMs ACHS -Insulin sliding scale for glycemic control Hx DVT/PE -On Xarelto, with IVC filter ->10 yrs ago DVT Prophylaxis -Xarelto 20 mg PO Daily, would need to be held for any spine procedure FEN -Fluids: none -Electrolytes: No electrolyte abnormalities, BMP in AM -Nutrition: Na controlled diet Disposition Med/Surg Visit type - Emergency Visit Emergency Visit: Yes ED Registration Date: 08/13/18 Care time: The patient presented to the Emergency Department on the above date and was hospitalized for further evaluation of their emergent condition. - New Patient This patient is new to me today: No - Critical Care Critical Care patient: No
--- NOTE | 2018-08-16 17:12 | PN ---
Progress Note (short form) - Note Progress Note: s: no cp sob palps dizzy o: Vital Signs Period Temp Pulse Resp BP Sys/Marcelo Pulse Ox Last 24 Hr 97.5 F-99.5 F 64-80 18-18 88-127/43-68 94 Constitutional: Yes: Well Nourished, No Distress Eyes: No: Sclera Icterus Respiratory: Yes: CTA Bilaterally. No: Accessory Muscle Use, Rales, Wheezes Gastrointestinal: Yes: Normal Bowel Sounds. No: Distention, Hepatomegaly, Palpable Mass, Tenderness Cardiovascular: Yes: Regular Rate and Rhythm JVD: No Heart Sounds: Yes: S1, S2. No: Gallop Murmur: No: Systolic Murmur, Diastolic Murmur Extremities: No: Cold, Cyanosis Edema: No Peripheral Pulses: 2+ Left Carotid, 2+ Right Carotid, 2+ Left Doralis Pedis, 2+ Right Dorsalis Pedis Integumentary: No: Jaundice Neurological: Yes: Alert, Oriented (x3) Psychiatric: No: Agitated Current Medications Generic Name Dose Route Start Last Admin Trade Name Freq PRN Reason Stop Dose Admin Acetaminophen 650 mg 08/15/18 11:26 08/16/18 10:36 Tylenol - PO 650 mg Q4H PRN Administration PAIN LEVEL 6-10 Carvedilol 25 mg 08/13/18 22:00 08/16/18 10:32 Coreg - PO 25 mg BID LISA Administration Diazepam 5 mg 08/14/18 17:32 08/16/18 01:00 Valium - PO 5 mg Q8H PRN Administration WITHDRAWAL(CONT SUBST) Docusate Sodium 100 mg 08/13/18 15:11 08/16/18 06:05 Colace - PO 100 mg BID PRN Administration CONSTIPATION Ergocalciferol 50,000 unit 08/15/18 10:00 08/15/18 10:01 Drisdol - PO 50,000 unit Tu@1000 LISA Administration Gabapentin 300 mg 08/13/18 22:00 08/16/18 14:32 Neurontin - PO Not Given TID LISA Insulin Aspart 1 vial 08/13/18 16:30 08/16/18 11:58 Novolog Vial Sliding Scale - SQ 2 units TIDAC LISA Administration Protocol Lisinopril 2.5 mg 08/15/18 22:00 08/16/18 10:32 Prinivil PO 2.5 mg BID LISA Administration Melatonin 5 mg 08/15/18 17:49 Melatonin PO HS PRN INSOMNIA Multivitamins/Minerals/Vitamin C 1 tab 08/15/18 10:00 08/16/18 10:31 Tab-A-Vit - PO 1 tab DAILY LISA Administration Oxycodone HCl 10 mg 08/15/18 11:27 08/16/18 10:35 Roxicodone - PO 10 mg Q4H PRN Administration PAIN LEVEL 6-10 Rivaroxaban 20 mg 08/14/18 10:00 08/16/18 10:32 Xarelto - PO 20 mg DAILY LISA Administration Torsemide 50 mg 08/14/18 16:00 08/16/18 10:54 Demadex - PO 50 mg DAILY LISA Administration Zolpidem Tartrate 5 mg 08/13/18 15:11 08/15/18 23:21 Ambien - PO 5 mg HS PRN Administration INSOMNIA CBC, BMP 08/16/18 06:00 08/16/18 06:00 echo here 06/2018: nl lv, rv tds, mild mr, nl rvsp echo (office) 03/25: 1. The left ventricular size is normal. 2. Overall left ventricular systolic function is normal with, an EF between 55 - 60 %. Watts's EF calculation (apical 4 chamber) = 62%. 3. LA pressure is probably elevated. 4. The right ventricle is normal in size and function. 5. Left atrium is normal size by volume. 6. The mitral valve leaflets are mildly thickened. Posterior leaflet is tethered in motion. 7. Moderate mitral regurgitation is present (central jet). No systolic flow reversal present in pulmonary vein. 8. Unable to estimate RVSP due to inadequate TR jet spectral doppler profile; it is at least 36 mmHg (i.e. mildly elevated). echo here 06/01/17: nl lv, nl rv size, mild fernando, sev mr, mild tr, nl rvsp echo in office 05/09/2017: mild-mod lve, lvef 30-35%, global hk, nl rv size, mild dec rv fcn, mild lae, mod-sev mr mibi 05/2014: no ischemia, mildly reduced lvef cath 2005: normal cors a/p: 71 f hx multiple PEs/DVTs s/p ivc filter and on xarelto dm, hld, htn, sys chf, here with back/leg pain, found with para-spinal fluid collection chronic mixed systolic/diastolic HF: -nonisch CMP dx'd 2014 (L/RHC moderately elevated wedge (25) and corresponding elevation in PAPs (50/25); NORMAL CORONARIES -severely reduced cardiac index on that RHC -more recent echo as outpt shows normalization in EF, ? related to improved med compliance, ? wt loss-->NICHOLE improved (untreated before). -echo here 06/25 unremarkable, had volume overload at that time related to hypotension requiring diuretics held, and IVF treatment--sent out on torsemide 20 qd, DROENE held for low bp. -then again with PNA 07/25 causing chf exacerbation--sent out on torsemide 50 qd , carvedilol 25 bid, lisinopril 5 qd -BNP 2K (baseline range 2-3K) -no volume on exam and cxr clear. cont torsemide 50 po qd for now, low threshold to incr to 100 qd if sob worsens. -tolerate sbp > 90 here -despite EF normalized, prefer to maintain BB and DORENE regimen, as these meds may have been reason for improvement in systolic fxn. -cont carvedilol 25 bid. -resume lisinopril--changed to 2.5 bid s/p spine surgery, back pain, fluid collection: -per ID, neurosurgery, hospitalist Atrial fibrillation - new diagnosis when here 07/25 with PNA - carvedilol dose (previously lowered due to low bp's) increased to 25 mg BID for rapid HRs--improved - in sinus on exam, HR good--cont same bb - on xarelto for DVT/PE, continue same (GFR > 60) HTN: - stable, controlled without lows at the moment - same meds h/o VTEs (DVTs and PEs): -s/p IVC filter -on lifelong AC per prior plan (felt to be hypercoagulable by heme) - continue xarelto NICHOLE: -not compliant with cpap
--- NOTE | 2018-08-16 17:17 | PN ---
Teaching Attending Note Name of Resident: Jeffery Burrell ATTENDING PHYSICIAN STATEMENT I saw and evaluated the patient. I reviewed the resident's note and discussed the case with the resident. I agree with the resident's findings and plan as documented. SUBJECTIVE: Patient reports low back pain is improving. However, she is concerned about the persistent significant pain from "muscle tearing". She is unhappy that no one has told her exactly what her problem is and that nothing is being done. She does not want to go to short term rehab. OBJECTIVE: Vital Signs Period Temp Pulse Resp BP Sys/Marcelo Pulse Ox Last 24 Hr 97.5 F-99.5 F 64-80 18-18 88-127/43-68 94 HEART: S1S2, RRR LUNGS: Clear ABDOMEN: Obese, soft, non-tender, non-distended, normal BS EXTREMITIES: No edema Laboratory Results - last 24 hr 08/16/18 08/16/18 08/16/18 05:36 06:00 06:00 WBC 7.6 RBC 3.53 L Hgb 9.4 L Hct 30.1 L MCV 85.3 MCH 26.7 MCHC 31.3 L RDW 16.1 H Plt Count 263 MPV 7.7 Sodium 138 Potassium 4.8 Chloride 102 Carbon Dioxide 30 Anion Gap 5 L BUN 26 H Creatinine 1.3 Creat Clearance w eGFR 40.26 POC Glucometer 205 Random Glucose 189 H Calcium 8.4 L Phosphorus 4.6 Magnesium 2.1 08/16/18 08/16/18 09:58 11:22 WBC RBC Hgb Hct MCV MCH MCHC RDW Plt Count MPV Sodium Potassium Chloride Carbon Dioxide Anion Gap BUN Creatinine Creat Clearance w eGFR POC Glucometer 160 249 Random Glucose Calcium Phosphorus Magnesium Current Medications Generic Name Dose Route Start Last Admin Trade Name Freq PRN Reason Stop Dose Admin Acetaminophen 650 mg 08/15/18 11:26 08/16/18 10:36 Tylenol - PO 650 mg Q4H PRN Administration PAIN LEVEL 6-10 Carvedilol 25 mg 08/13/18 22:00 08/16/18 10:32 Coreg - PO 25 mg BID LISA Administration Diazepam 5 mg 08/14/18 17:32 08/16/18 01:00 Valium - PO 5 mg Q8H PRN Administration WITHDRAWAL(CONT SUBST) Docusate Sodium 100 mg 08/13/18 15:11 08/16/18 06:05 Colace - PO 100 mg BID PRN Administration CONSTIPATION Ergocalciferol 50,000 unit 08/15/18 10:00 08/15/18 10:01 Drisdol - PO 50,000 unit Tu@1000 LISA Administration Gabapentin 300 mg 08/13/18 22:00 08/16/18 14:32 Neurontin - PO Not Given TID LISA Insulin Aspart 1 vial 08/13/18 16:30 08/16/18 11:58 Novolog Vial Sliding Scale - SQ 2 units TIDAC LISA Administration Protocol Lisinopril 2.5 mg 08/15/18 22:00 08/16/18 10:32 Prinivil PO 2.5 mg BID LISA Administration Melatonin 5 mg 08/15/18 17:49 Melatonin PO HS PRN INSOMNIA Multivitamins/Minerals/Vitamin C 1 tab 08/15/18 10:00 08/16/18 10:31 Tab-A-Vit - PO 1 tab DAILY LISA Administration Oxycodone HCl 10 mg 08/15/18 11:27 08/16/18 10:35 Roxicodone - PO 10 mg Q4H PRN Administration PAIN LEVEL 6-10 Rivaroxaban 20 mg 08/14/18 10:00 08/16/18 10:32 Xarelto - PO 20 mg DAILY LISA Administration Torsemide 50 mg 08/14/18 16:00 08/16/18 10:54 Demadex - PO 50 mg DAILY LISA Administration Zolpidem Tartrate 5 mg 08/13/18 15:11 08/15/18 23:21 Ambien - PO 5 mg HS PRN Administration INSOMNIA ASSESSMENT AND PLAN: This is a 73 year old woman with a history of HTN, type 2 DM, chronic diastolic heart failure, lap band, left TKR complicated by Staph infection, chronic low back pain, L4/5 laminectomy, L2-S1 seroma s/p drainage, PE/DVT, IVC filter who presented to the ED with worsening back pain radiating down both legs. 1. Intractable back pain, DDD, history of L4-5 laminectomy, drainage of L2-S1 seroma - CT L-spine and pelvis shows fluid collection L3-S2 extending to posterior epidural space, with findings suspicious for gas forming bacteria - As per ID and ortho, no evidence of infection, so observing off antibiotics - Ortho recommending SI joint injection - Pain management consult - Continue Neurontin - Physical therapy 2. HTN - Continue Coreg, Lisinopril, Demadex 3. Atrial fibrillation, paroxysmal - Currently in sinus rhythm - Continue Coreg, Xarelto 4. Chronic systolic and diastolic heart failure - Stable - Continue Coreg, Lisinopril, Demadex 5. Mitral regurgitation 6. Type 2 DM - Continue Novolog sliding scale 7. Obesity, history of lap band 8. History of DVT/PE - Continue Xarelto - Has IVC filter
[2018-08-16] MEDS: ZOLPIDEM TARTRATE 5 MG TABLET PO PRN (23:13)
[2018-08-17] MEDS: GABAPENTIN 300 MG CAPSULE (FP) PO SCH ×3 (06:37→21:59)
[2018-08-17] MEDS: INSULIN SLIDING SCALE (NOVOLOG) 1 VIAL SQ SCH ×3 (06:37→16:59)
[2018-08-17] MEDS ORDERED: PT OWN MED DRAWER 7, Y5N ONE (09:30)
[2018-08-17] MEDS: oxyCODONE HCL 5 MG TABLET PO PRN ×4 (09:32→23:14)
[2018-08-17] MEDS: LISINOPRIL 5 MG TABLET (FP) PO SCH ×2 (09:33→21:59)
[2018-08-17] MEDS: ACETAMINOPHEN 325 MG TABLET (FP) PO PRN ×4 (09:33→23:16)
[2018-08-17] MEDS: CARVEDILOL 25 MG TABLET (FP) PO SCH ×2 (09:34→21:59)
[2018-08-17] MEDS: MULTIVITAMINS (DAILY MVI) TABLET (FP) PO SCH (09:34)
[2018-08-17] MEDS: TORSEMIDE 100 MG TABLET PO SCH (09:34)
[2018-08-17] MEDS: RIVAROXABAN 20 MG TABLET PO SCH (09:34)
[2018-08-17] MEDS ORDERED: INSULIN (NOVOLOG) ASPART 100 UNITS/ML 10ML VIAL ONE (11:18)
--- NOTE | 2018-08-17 13:02 | PN ---
Physical Exam: SUBJECTIVE: Patient seen and examined this AM. She is still complaining of significant pain though improving. She states she wants to speak with ortho prior to making any pain management decisions. Was seen by pain management who recommended joint injections (likely marcaine) as ortho had already mentioned a possibility. Pt states she was unaware ortho had suggested that plan which is why she was initially hesitant, though states she would still like to speak with ortho for plan. OBJECTIVE: Vital Signs Period Temp Pulse Resp BP Sys/Marcelo Pulse Ox Last 24 Hr 97.9 F-99.3 F 64-74 18-18 88-125/41-58 94-95 GENERAL: A&O, minimal distress HEAD: Normocephalic, atraumatic. EYES: PERRL, no scleral icterus NECK: supple without lymphadenopathy LUNGS: CTA b/l, no crackles or wheezes HEART: Regular rate and rhythm, normal S1 and S2 without murmur ABDOMEN: Obese, Soft, nontender to palpation, normoactive bowel sounds MUSCULOSKELETAL: No bony deformities, some tenderness on palpation of lower back NEUROLOGICAL: Cranial nerves II-XII grossly intact. Normal speech. Laboratory Results - last 24 hr 08/16/18 08/17/18 08/17/18 17:23 05:39 11:15 POC Glucometer 200 260 242 Active Medications Generic Name Dose Route Start Last Admin Trade Name Freq PRN Reason Stop Dose Admin Acetaminophen 650 mg 08/15/18 11:26 08/17/18 09:33 Tylenol - PO 650 mg Q4H PRN Administration PAIN LEVEL 6-10 Carvedilol 25 mg 08/13/18 22:00 08/17/18 09:34 Coreg - PO 25 mg BID LISA Administration Diazepam 5 mg 08/14/18 17:32 08/16/18 22:17 Valium - PO 5 mg Q8H PRN Administration WITHDRAWAL(CONT SUBST) Docusate Sodium 100 mg 08/13/18 15:11 08/16/18 23:38 Colace - PO 100 mg BID PRN Administration CONSTIPATION Ergocalciferol 50,000 unit 08/15/18 10:00 08/15/18 10:01 Drisdol - PO 50,000 unit Tu@1000 LISA Administration Gabapentin 300 mg 08/13/18 22:00 08/17/18 06:37 Neurontin - PO 300 mg TID LISA Administration Insulin Aspart 1 vial 08/13/18 16:30 08/17/18 11:20 Novolog Vial Sliding Scale - SQ 2 units TIDAC LISA Administration Protocol Lisinopril 2.5 mg 08/15/18 22:00 08/17/18 09:33 Prinivil PO 2.5 mg BID LISA Administration Melatonin 5 mg 08/15/18 17:49 Melatonin PO HS PRN INSOMNIA Multivitamins/Minerals/Vitamin C 1 tab 08/15/18 10:00 08/17/18 09:34 Tab-A-Vit - PO 1 tab DAILY LISA Administration Oxycodone HCl 10 mg 08/15/18 11:27 08/17/18 09:32 Roxicodone - PO 10 mg Q4H PRN Administration PAIN LEVEL 6-10 Rivaroxaban 20 mg 08/14/18 10:00 08/17/18 09:34 Xarelto - PO 20 mg DAILY LISA Administration Torsemide 50 mg 08/14/18 16:00 08/17/18 09:34 Demadex - PO 50 mg DAILY LISA Administration Zolpidem Tartrate 5 mg 08/13/18 15:11 08/16/18 23:13 Ambien - PO 5 mg HS PRN Administration INSOMNIA ASSESSMENT/PLAN: 73 y/o F with h/o HTN, NIDDM, HFpEF (06/19/18 EF ~50%), intractable lower back pain s/p L4-L5 s/p laminectomy, L2-S1 seroma s/p drainage, 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 Lower Back Pain -s/p L4-L5 laminectomy, seroma with IR drainage -Pain control with Percocet 10 Q4, Valium 5 mg PO Q8 -Neurontin 300 mg PO BID -CT noted with interval air pockets, pelvic CT with air and fluid collection noted -ID consult appreciated, no Abx at this time -Case discussed with Dr. Borjas, CT findings are likely myxomatous collection routinely seen in post op spine patients, very unlikely infxn -As per Ortho: Likely for CT guided marcaine injection into left SI joint, could require repeat lumbar/sacral exlporation in [place] -Pain management evaluated, will await further recommendations HFpEF -EF 50% in 06/19/18 -Cardiology consult appreciated -Prinivil started, will monitor b.p and hold if systolic below 100 NIDDM -BGMs ACHS -Insulin sliding scale for glycemic control Hx DVT/PE -On Xarelto, with IVC filter ->10 yrs ago DVT Prophylaxis -Xarelto 20 mg PO Daily, would need to be held for any spine procedure FEN -Fluids: none -Electrolytes: No electrolyte abnormalities, BMP in AM -Nutrition: Na controlled diet Disposition Med/Surg Visit type - Emergency Visit Emergency Visit: Yes ED Registration Date: 08/13/18 Care time: The patient presented to the Emergency Department on the above date and was hospitalized for further evaluation of their emergent condition. - New Patient This patient is new to me today: No - Critical Care Critical Care patient: No
--- NOTE | 2018-08-17 15:53 | PN ---
Progress Note (short form) - Note Progress Note: s: no chest pain, sob, palps, dizzy o: Vital Signs Period Temp Pulse Resp BP Sys/Marcelo Pulse Ox Last 24 Hr 97.9 F-99.3 F 67-74 18-20 95-125/41-58 94-95 Constitutional: Yes: Well Nourished, No Distress Eyes: No: Sclera Icterus Respiratory: Yes: CTA Bilaterally. No: Accessory Muscle Use, Rales, Wheezes Gastrointestinal: Yes: Normal Bowel Sounds. No: Distention, Hepatomegaly, Palpable Mass, Tenderness Cardiovascular: Yes: Regular Rate and Rhythm JVD: No Heart Sounds: Yes: S1, S2. No: Gallop Murmur: No: Systolic Murmur, Diastolic Murmur Extremities: No: Cold, Cyanosis Edema: No Peripheral Pulses: 2+ Left Carotid, 2+ Right Carotid, 2+ Left Doralis Pedis, 2+ Right Dorsalis Pedis Integumentary: No: Jaundice Neurological: Yes: Alert, Oriented (x3) Psychiatric: No: Agitated Current Medications Acetaminophen (Tylenol -) 650 mg PO Q4H PRN PRN Reason: PAIN LEVEL 6-10 Last Admin: 08/17/18 14:38 Dose: 650 mg Carvedilol (Coreg -) 25 mg PO BID [facility] Last Admin: 08/17/18 09:34 Dose: 25 mg Diazepam (Valium -) 5 mg PO Q8H PRN PRN Reason: WITHDRAWAL(CONT SUBST) Last Admin: 08/16/18 22:17 Dose: 5 mg Docusate Sodium (Colace -) 100 mg PO BID PRN PRN Reason: CONSTIPATION Last Admin: 08/16/18 23:38 Dose: 100 mg Ergocalciferol (Drisdol -) 50,000 unit PO Tu@1000 [facility] Last Admin: 08/15/18 10:01 Dose: 50,000 unit Gabapentin (Neurontin -) 300 mg PO TID [facility] Last Admin: 08/17/18 14:30 Dose: 300 mg Insulin Aspart (Novolog Vial Sliding Scale -) 1 vial SQ TIDAC [facility]; Protocol Last Admin: 08/17/18 11:20 Dose: 2 units Lisinopril (Prinivil) 2.5 mg PO BID [facility] Last Admin: 08/17/18 09:33 Dose: 2.5 mg Melatonin (Melatonin) 5 mg PO HS PRN PRN Reason: INSOMNIA Multivitamins/Minerals/Vitamin C (Tab-A-Vit -) 1 tab PO DAILY [facility] Last Admin: 08/17/18 09:34 Dose: 1 tab Oxycodone HCl (Roxicodone -) 10 mg PO Q4H PRN PRN Reason: PAIN LEVEL 6-10 Last Admin: 08/17/18 14:37 Dose: 10 mg Rivaroxaban (Xarelto -) 20 mg PO DAILY [facility] Last Admin: 08/17/18 09:34 Dose: 20 mg Torsemide (Demadex -) 50 mg PO DAILY [facility] Last Admin: 08/17/18 09:34 Dose: 50 mg Zolpidem Tartrate (Ambien -) 5 mg PO HS PRN PRN Reason: INSOMNIA Last Admin: 08/16/18 23:13 Dose: 5 mg echo here 06/2018: nl lv, rv tds, mild mr, nl rvsp echo (office) 03/25: 1. The left ventricular size is normal. 2. Overall left ventricular systolic function is normal with, an EF between 55 - 60 %. Watts's EF calculation (apical 4 chamber) = 62%. 3. LA pressure is probably elevated. 4. The right ventricle is normal in size and function. 5. Left atrium is normal size by volume. 6. The mitral valve leaflets are mildly thickened. Posterior leaflet is tethered in motion. 7. Moderate mitral regurgitation is present (central jet). No systolic flow reversal present in pulmonary vein. 8. Unable to estimate RVSP due to inadequate TR jet spectral doppler profile; it is at least 36 mmHg (i.e. mildly elevated). echo here 06/01/17: nl lv, nl rv size, mild fernando, sev mr, mild tr, nl rvsp echo in office 05/09/2017: mild-mod lve, lvef 30-35%, global hk, nl rv size, mild dec rv fcn, mild lae, mod-sev mr mibi 05/2014: no ischemia, mildly reduced lvef cath 2005: normal cors a/p: 71 f hx multiple PEs/DVTs s/p ivc filter and on xarelto dm, hld, htn, sys chf, here with back/leg pain, found with para-spinal fluid collection chronic mixed systolic/diastolic HF: -nonisch CMP dx'd 2014 (L/RHC moderately elevated wedge (25) and corresponding elevation in PAPs (50/25); NORMAL CORONARIES -severely reduced cardiac index on that RHC -more recent echo as outpt shows normalization in EF, ? related to improved med compliance, ? wt loss-->NICHOLE improved (untreated before). -echo here 06/25 unremarkable, had volume overload at that time related to hypotension requiring diuretics held, and IVF treatment--sent out on torsemide 20 qd, DORENE held for low bp. -then again with PNA 07/25 causing chf exacerbation--sent out on torsemide 50 qd , carvedilol 25 bid, lisinopril 5 qd -BNP 2K (baseline range 2-3K) -no volume on exam and cxr clear. cont torsemide 50 po qd for now, low threshold to incr to 100 qd if sob worsens. -tolerate sbp > 90 here -despite EF normalized, prefer to maintain BB and DORENE regimen, as these meds may have been reason for improvement in systolic fxn. -cont carvedilol 25 bid, lisinopril 2.5 mg BID s/p spine surgery, back pain, fluid collection: -per ID, neurosurgery, hospitalist Atrial fibrillation - new diagnosis when here 07/25 with PNA - carvedilol dose (previously lowered due to low bp's) increased to 25 mg BID for rapid HRs--improved - in sinus on exam, HR good--cont same bb - on xarelto for DVT/PE, continue same (GFR > 60) HTN: - stable, controlled without lows at the moment - same meds h/o VTEs (DVTs and PEs): -s/p IVC filter -on lifelong AC per prior plan (felt to be hypercoagulable by heme) - continue xarelto NICHOLE: -not compliant with cpap
--- NOTE | 2018-08-17 16:43 | PN ---
Progress Note (short form) - Note Progress Note: As discussed with interventional radiology team, please perform left sacro- iliac joint marcaine injection. Primary team to organize with IR team. Luis Borjas MD (Orthopaedics).
--- NOTE | 2018-08-17 17:16 | PN ---
Teaching Attending Note Name of Resident: Jeffery Burrell ATTENDING PHYSICIAN STATEMENT I saw and evaluated the patient. I reviewed the resident's note and discussed the case with the resident. I agree with the resident's findings and plan as documented. SUBJECTIVE: Overall, pain is improving. Patient is frustrated because she feels she is not being given any answers. She is agreeable to SI joint injection but wants to discuss it with ortho. OBJECTIVE: Vital Signs Period Temp Pulse Resp BP Sys/Marcelo Pulse Ox Last 24 Hr 97.9 F-99.3 F 67-74 18-20 95-125/41-58 94-95 HEART: S1S2, RRR LUNGS: Clear ABDOMEN: Obese, soft, non-tender, non-distended, normal BS EXTREMITIES: No edema Laboratory Results - last 24 hr 08/16/18 08/17/18 08/17/18 17:23 05:39 11:15 POC Glucometer 200 260 242 Current Medications Generic Name Dose Route Start Last Admin Trade Name Freq PRN Reason Stop Dose Admin Acetaminophen 650 mg 08/15/18 11:26 08/17/18 14:38 Tylenol - PO 650 mg Q4H PRN Administration PAIN LEVEL 6-10 Carvedilol 25 mg 08/13/18 22:00 08/17/18 09:34 Coreg - PO 25 mg BID LISA Administration Diazepam 5 mg 08/14/18 17:32 08/16/18 22:17 Valium - PO 5 mg Q8H PRN Administration WITHDRAWAL(CONT SUBST) Docusate Sodium 100 mg 08/13/18 15:11 08/16/18 23:38 Colace - PO 100 mg BID PRN Administration CONSTIPATION Ergocalciferol 50,000 unit 08/15/18 10:00 08/15/18 10:01 Drisdol - PO 50,000 unit Tu@1000 LISA Administration Gabapentin 300 mg 08/13/18 22:00 08/17/18 14:30 Neurontin - PO 300 mg TID LISA Administration Insulin Aspart 1 vial 08/13/18 16:30 08/17/18 16:59 Novolog Vial Sliding Scale - SQ Not Given TIDAC LISA Protocol Lisinopril 2.5 mg 08/15/18 22:00 08/17/18 09:33 Prinivil PO 2.5 mg BID LISA Administration Melatonin 5 mg 01/08/19 17:49 Melatonin PO HS PRN INSOMNIA Multivitamins/Minerals/Vitamin C 1 tab 08/15/18 10:00 08/17/18 09:34 Tab-A-Vit - PO 1 tab DAILY LISA Administration Oxycodone HCl 10 mg 08/15/18 11:27 08/17/18 14:37 Roxicodone - PO 10 mg Q4H PRN Administration PAIN LEVEL 6-10 Rivaroxaban 20 mg 08/14/18 10:00 08/17/18 09:34 Xarelto - PO 20 mg DAILY LISA Administration Torsemide 50 mg 08/14/18 16:00 08/17/18 09:34 Demadex - PO 50 mg DAILY LISA Administration Zolpidem Tartrate 5 mg 08/13/18 15:11 08/16/18 23:13 Ambien - PO 5 mg HS PRN Administration INSOMNIA ASSESSMENT AND PLAN: This is a 73 year old woman with a history of HTN, type 2 DM, chronic diastolic heart failure, lap band, left TKR complicated by Staph infection, chronic low back pain, L4/5 laminectomy, L2-S1 seroma s/p drainage, PE/DVT, IVC filter who presented to the ED with worsening back pain radiating down both legs. 1. Intractable back pain, DDD, history of L4-5 laminectomy, drainage of L2-S1 seroma - CT L-spine and pelvis shows fluid collection L3-S2 extending to posterior epidural space, with findings suspicious for gas forming bacteria - As per ID and ortho, no evidence of infection, so observing off antibiotics - Pain management consult appreciated - Continue Neurontin - Possible SI joint injection - Physical therapy 2. HTN - Continue Coreg, Lisinopril, Demadex 3. Atrial fibrillation, paroxysmal - Remains in sinus rhythm - Continue Coreg, Xarelto 4. Chronic systolic and diastolic heart failure - Stable - Continue Coreg, Lisinopril, Demadex 5. Mitral regurgitation 6. Type 2 DM - Continue Novolog sliding scale 7. Obesity, history of lap band 8. History of DVT/PE - Continue Xarelto - Has IVC filter
[2018-08-17] MEDS: ZOLPIDEM TARTRATE 5 MG TABLET PO PRN (23:16)
[2018-08-18] MEDS: oxyCODONE HCL 5 MG TABLET PO PRN ×3 (03:11→15:33)
[2018-08-18] MEDS: ACETAMINOPHEN 325 MG TABLET (FP) PO PRN (03:12)
[2018-08-18] MEDS: GABAPENTIN 300 MG CAPSULE (FP) PO SCH ×3 (06:30→21:29)
[2018-08-18] MEDS: INSULIN SLIDING SCALE (NOVOLOG) 1 VIAL SQ SCH ×3 (06:30→18:16)
[2018-08-18] MEDS ORDERED: INSULIN (NOVOLOG) ASPART 100 UNITS/ML 10ML VIAL ONE (06:46)
[2018-08-18 07:46] LABS: HEMATOCRIT 29.4 % (32.4-45.2); HEMOGLOBIN 9.2 GM/dL (10.7-15.3); MCH 26.8 pg (25.7-33.7); MCHC 31.4 g/dl (32.0-36.0); MEAN CELL VOLUME 85.4 fl (80-96); MEAN PLT VOLUME 7.8 fl (7.5-11.1); PLATELET COUNT 269 K/MM3 (134-434); RBC 3.45 M/mm3 (3.60-5.2); RDW 16.5 % (11.6-15.6); WHITE BLOOD COUNT 6.5 K/mm3 (4.0-10.0)
[2018-08-18 08:07] LABS: ANION GAP 7 MMOL/L (8-16); BLOOD UREA NITROGEN 45 mg/dL (7-18); CALCIUM 8.3 mg/dL (8.5-10.1); CHLORIDE 102 mmol/L (98-107); CO2 28 mmol/L (21-32); CREATININE 1.5 mg/dL (0.55-1.3); GLUCOSE,RANDOM 185 mg/dL (74-106); MAGNESIUM 2.4 mg/dL (1.8-2.4); PHOSPHOROUS 4.4 mg/dL (2.5-4.9); POTASSIUM 4.6 mmol/L (3.5-5.1); SODIUM 137 mmol/L (136-145)
[2018-08-18] MEDS: RIVAROXABAN 20 MG TABLET PO SCH (09:28)
[2018-08-18] MEDS: LISINOPRIL 5 MG TABLET (FP) PO SCH ×2 (11:16→21:29)
[2018-08-18] MEDS: MULTIVITAMINS (DAILY MVI) TABLET (FP) PO SCH (11:16)
[2018-08-18] MEDS: CARVEDILOL 25 MG TABLET (FP) PO SCH ×2 (11:16→21:29)
[2018-08-18] MEDS: TORSEMIDE 100 MG TABLET PO SCH (11:23)
--- NOTE | 2018-08-18 15:24 | PN ---
Progress Note (short form) - Note Progress Note: s: no chest pain, sob, palps, dizzy o: Vital Signs Period Temp Pulse Resp BP Sys/Marcelo Pulse Ox Last 24 Hr 98 F-98.2 F 66-73 20-20 96-132/52-75 Constitutional: Yes: Well Nourished, No Distress Eyes: No: Sclera Icterus Respiratory: Yes: CTA Bilaterally. No: Accessory Muscle Use, Rales, Wheezes Gastrointestinal: Yes: Normal Bowel Sounds. No: Distention, Hepatomegaly, Palpable Mass, Tenderness Cardiovascular: Yes: Regular Rate and Rhythm JVD: No Heart Sounds: Yes: S1, S2. No: Gallop Murmur: No: Systolic Murmur, Diastolic Murmur Extremities: No: Cold, Cyanosis Edema: No Peripheral Pulses: 2+ Left Carotid, 2+ Right Carotid, 2+ Left Doralis Pedis, 2+ Right Dorsalis Pedis Integumentary: No: Jaundice Neurological: Yes: Alert, Oriented (x3) Psychiatric: No: Agitated Current Medications Acetaminophen (Tylenol -) 650 mg PO Q4H PRN PRN Reason: PAIN LEVEL 6-10 Last Admin: 08/18/18 03:12 Dose: 650 mg Carvedilol (Coreg -) 25 mg PO BID [facility] Last Admin: 08/18/18 11:16 Dose: 25 mg Diazepam (Valium -) 5 mg PO Q8H PRN PRN Reason: WITHDRAWAL(CONT SUBST) Last Admin: 08/16/18 22:17 Dose: 5 mg Docusate Sodium (Colace -) 100 mg PO BID PRN PRN Reason: CONSTIPATION Last Admin: 08/16/18 23:38 Dose: 100 mg Ergocalciferol (Drisdol -) 50,000 unit PO Tu@1000 [facility] Last Admin: 08/15/18 10:01 Dose: 50,000 unit Gabapentin (Neurontin -) 300 mg PO TID [facility] Last Admin: 08/18/18 06:30 Dose: 300 mg Insulin Aspart (Novolog Vial Sliding Scale -) 1 vial SQ TIDAC [facility]; Protocol Last Admin: 08/18/18 06:30 Dose: 2 units Lisinopril (Prinivil) 2.5 mg PO BID [facility] Last Admin: 08/18/18 11:16 Dose: 2.5 mg Melatonin (Melatonin) 5 mg PO HS PRN PRN Reason: INSOMNIA Multivitamins/Minerals/Vitamin C (Tab-A-Vit -) 1 tab PO DAILY [facility] Last Admin: 08/18/18 11:16 Dose: 1 tab Oxycodone HCl (Roxicodone -) 10 mg PO Q4H PRN PRN Reason: PAIN LEVEL 6-10 Last Admin: 08/18/18 11:15 Dose: 10 mg Rivaroxaban (Xarelto -) 20 mg PO DAILY [facility] Last Admin: 08/18/18 09:28 Dose: Not Given Torsemide (Demadex -) 50 mg PO DAILY [facility] Last Admin: 08/18/18 11:23 Dose: 50 mg Zolpidem Tartrate (Ambien -) 5 mg PO HS PRN PRN Reason: INSOMNIA Last Admin: 08/17/18 23:16 Dose: 5 mg echo here 06/2018: nl lv, rv tds, mild mr, nl rvsp echo (office) 03/25: 1. The left ventricular size is normal. 2. Overall left ventricular systolic function is normal with, an EF between 55 - 60 %. Watts's EF calculation (apical 4 chamber) = 62%. 3. LA pressure is probably elevated. 4. The right ventricle is normal in size and function. 5. Left atrium is normal size by volume. 6. The mitral valve leaflets are mildly thickened. Posterior leaflet is tethered in motion. 7. Moderate mitral regurgitation is present (central jet). No systolic flow reversal present in pulmonary vein. 8. Unable to estimate RVSP due to inadequate TR jet spectral doppler profile; it is at least 36 mmHg (i.e. mildly elevated). echo here 06/01/17: nl lv, nl rv size, mild fernando, sev mr, mild tr, nl rvsp echo in office 05/09/2017: mild-mod lve, lvef 30-35%, global hk, nl rv size, mild dec rv fcn, mild lae, mod-sev mr mibi 05/2014: no ischemia, mildly reduced lvef cath 2005: normal cors a/p: 71 f hx multiple PEs/DVTs s/p ivc filter and on xarelto dm, hld, htn, sys chf, here with back/leg pain, found with para-spinal fluid collection chronic mixed systolic/diastolic HF: -nonisch CMP dx'd 2014 (L/RHC moderately elevated wedge (25) and corresponding elevation in PAPs (50/25); NORMAL CORONARIES -severely reduced cardiac index on that RHC -more recent echo as outpt shows normalization in EF, ? related to improved med compliance, ? wt loss-->NICHOLE improved (untreated before). -echo here 06/25 unremarkable, had volume overload at that time related to hypotension requiring diuretics held, and IVF treatment--sent out on torsemide 20 qd, DORENE held for low bp. -then again with PNA 07/25 causing chf exacerbation--sent out on torsemide 50 qd , carvedilol 25 bid, lisinopril 5 qd -BNP 2K (baseline range 2-3K) -no volume on exam and cxr clear. cont torsemide 50 po qd for now, low threshold to incr to 100 qd if sob worsens. -tolerate sbp > 90 here -despite EF normalized, prefer to maintain BB and DORENE regimen, as these meds may have been reason for improvement in systolic fxn. -cont carvedilol 25 bid, lisinopril 2.5 mg BID s/p spine surgery, back pain, fluid collection: -per ID, neurosurgery, hospitalist Atrial fibrillation - new diagnosis when here 07/25 with PNA - carvedilol dose (previously lowered due to low bp's) increased to 25 mg BID for rapid HRs--improved - in sinus on exam, HR good--cont same bb - on xarelto for DVT/PE as well -holding xarelto currently for possible SI joint injection, restart when able following procedure HTN: - stable, controlled without lows at the moment - same meds h/o VTEs (DVTs and PEs): -s/p IVC filter -on lifelong AC per prior plan (felt to be hypercoagulable by heme) - on xarelto NICHOLE: -not compliant with cpap
[2018-08-18] MEDS ORDERED: RIVAROXABAN 20 MG TABLET PO ONE (16:02)
--- NOTE | 2018-08-18 16:10 | DS ---
Physical Exam: SUBJECTIVE: Patient seen and examined this AM. Says she is amenable to CT guided marcaine injection by IR. Likely for procedure on TuesdayAugust 23, pt expressed her wishes not to stay in the hospital over the weekend for the procedure. OBJECTIVE: Vital Signs Period Temp Pulse Resp BP Sys/Marcelo Pulse Ox Last 24 Hr 98 F-98.2 F 66-73 20-20 96-132/52-75 PHYSICAL EXAM GENERAL: A&O, minimal distress HEAD: Normocephalic, atraumatic. EYES: PERRL, no scleral icterus NECK: supple without lymphadenopathy LUNGS: CTA b/l, no crackles or wheezes HEART: Regular rate and rhythm, normal S1 and S2 without murmur ABDOMEN: Obese, Soft, nontender to palpation, normoactive bowel sounds MUSCULOSKELETAL: No bony deformities, some tenderness on palpation of lower back NEUROLOGICAL: Cranial nerves II-XII grossly intact. Normal speech. LABS Laboratory Results - last 24 hr 08/17/18 08/17/18 08/18/18 16:58 20:43 06:05 WBC RBC Hgb Hct MCV MCH MCHC RDW Plt Count MPV Sodium Potassium Chloride Carbon Dioxide Anion Gap BUN Creatinine Creat Clearance w eGFR POC Glucometer 190 202 210 Random Glucose Calcium Phosphorus Magnesium 08/18/18 08/18/18 08/18/18 06:40 06:40 12:56 WBC 6.5 RBC 3.45 L Hgb 9.2 L Hct 29.4 L MCV 85.4 MCH 26.8 MCHC 31.4 L RDW 16.5 H Plt Count 269 MPV 7.8 Sodium 137 Potassium 4.6 Chloride 102 Carbon Dioxide 28 Anion Gap 7 L BUN 45 H Creatinine 1.5 H Creat Clearance w eGFR 34.13 POC Glucometer 186 Random Glucose 185 H Calcium 8.3 L Phosphorus 4.4 Magnesium 2.4 HOSPITAL COURSE: Date of Admission:08/13/18 Date of Discharge: 08/18/18 HPI On Admission: this is a 73 y/o F with h/o HTN, NIDDM, HFpEF (06/19/18 EF ~50%), intractable lower back pain s/p L4-L5 s/p laminectomy, L2-S1 seroma s/p drainage, PE/DVT ( 10 yrs prior; with IVC filter, on xarelto), who presents to the ED c/o worsening back pain over the past few days, she stated that her sx worsened acutely over the last 2-3 days, she ambulates using a walker. At this time, denies SPARROW, fever, chills, chest pain or pressure, or changes in urinary or bowel function. No recent sick contacts. Hospital Course: CT of lumbar spine as well as pelvis were performed. There was a concern for abscess, though case discussed with Dr. Borjas and ID who did not recommend abx as fluid/air collection likely due to recent instrumentation and normal post op changes. Her back pain was controlled with Percocet and Valium. She was seen by Pain management who recommended injections into the joint, though patient initially refused. Dr. Borjas recommended CT guided left SI Joint injection with marcaine by IR. Her AC was held until she could have the procedure and was restarted following. She was also instructed to follow up with her PCP and Dr. Borjas. She would likely benefit from pain management as an outpatient as well. Minutes to complete discharge: 40 Discharge Summary Reason For Visit: INTRACTABLE BACK PAIN Current Active Problems (HFpEF) heart failure with preserved ejection fraction (Acute) Back pain (Acute) HTN (hypertension), benign (Acute) Paroxysmal atrial fibrillation (Acute) Condition: Stable - Instructions Diet, Activity, Other Instructions: You were admitted for severe back pain. A CT scan was done which revealed some air around your spine likely due to previous surgeries and interventions. You were seen by an infectious disease doctor who was not concerned for infection and did not feel you needed any antibiotics at this time. You were seen by Dr. Borjas who recommended a CT guided injection into the joint to help with your pain. You were also seen by pain management who recommended similar therapy. At this point you are medically safe for discharge following the procedure. You should continue all of your home medications as they are prescribed. You should follow up with your primary care physician within one week of discharge from the hospital. You would likely benefit from seeing a pipe bowls paint trimmer. You should follow up with Dr. Borjas within 1-2 weeks of discharge from the hospital. If you have any high fevers, severe pain worse than your normal baseline, or any other concerning symptoms, you should be seen by your doctor or return to the emergency department. Referrals: Beryl Pandey MD [Primary Care Provider] - Sreekanth Borjas MD [Staff Physician] - Disposition: HOME - Home Medications Comprehensive Discharge Medication List: Ambulatory Orders Gabapentin 300 mg PO BID 03/04/14 Oxycodone HCl/Acetaminophen [Percocet 10-325 mg Tablet] 1 tab PO Q6H PRN Insulin Lispro Protamin/Lispro [Humalog Mix 75-25 Kwikpen] 22 unit SQ BID Multivitamins [Multivit ([facility] Formulary)] 1 tab PO DAILY 03/17/16 Zolpidem Tartrate [Ambien] 10 mg PO HS PRN 06/01/17 Docusate Sodium [Colace -] 100 mg PO BID PRN #0 cap 06/03/17 Rivaroxaban [Xarelto -] 20 mg PO DAILY 06/22/18 Ergocalciferol [Vitamin D2] 50,000 unit PO WEEKLY 07/26/18 Leflunomide [Arava] 20 mg PO DAILY 07/26/18 Torsemide 20 mg PO DAILY 07/26/18 Carvedilol [Coreg -] 25 mg PO BID #60 tablet 07/30/18 Insulin Degludec [Tresiba Flextouch U-100] 30 units SQ DAILY 08/16/18 This patient is new to me today: No Emergency Visit: Yes ED Registration Date: 08/13/18 Care time: The patient presented to the Emergency Department on the above date and was hospitalized for further evaluation of their emergent condition. Critical Care patient: No - Discharge Referral Referred to [facility] Med P.C.: No
[2018-08-18 19:13] LABS: FREE KAPPA,SERUM 86.3 mg/L (3.3-19.4)
[2018-08-19] MEDS ORDERED: PT OWN MED DRAWER 7, Y5N ONE (01:06)
[2018-08-19] MEDS: oxyCODONE HCL 5 MG TABLET PO PRN ×5 (01:54→20:22)
[2018-08-19] MEDS: ACETAMINOPHEN 325 MG TABLET (FP) PO PRN ×5 (01:55→20:34)
--- NOTE | 2018-08-19 06:34 | PN ---
Physical Exam: SUBJECTIVE: Patient seen and examined this AM. She states she is amenable to the CT guided injection. OBJECTIVE: Vital Signs Period Temp Pulse Resp BP Sys/Marcelo Pulse Ox Last 24 Hr 98 F-98.1 F 63-74 20-20 116-134/49-75 GENERAL: A&O, minimal distress HEAD: Normocephalic, atraumatic. EYES: PERRL, no scleral icterus NECK: supple without lymphadenopathy LUNGS: CTA b/l, no crackles or wheezes HEART: Regular rate and rhythm, normal S1 and S2 without murmur ABDOMEN: Obese, Soft, nontender to palpation, normoactive bowel sounds MUSCULOSKELETAL: No bony deformities, some tenderness on palpation of lower back NEUROLOGICAL: Cranial nerves II-XII grossly intact. Normal speech. Laboratory Results - last 24 hr 08/17/18 08/18/18 08/18/18 06:30 06:40 06:40 WBC 6.5 RBC 3.45 L Hgb 9.2 L Hct 29.4 L MCV 85.4 MCH 26.8 MCHC 31.4 L RDW 16.5 H Plt Count 269 MPV 7.8 Sodium 137 Potassium 4.6 Chloride 102 Carbon Dioxide 28 Anion Gap 7 L BUN 45 H Creatinine 1.5 H Creat Clearance w eGFR 34.13 POC Glucometer Random Glucose 185 H Calcium 8.3 L Phosphorus 4.4 Magnesium 2.4 Total Protein (PEP) 5.9 L Albumin (PEP) 2.6 L Globulin 3.3 Albumin/Globulin Ratio 0.8 Beta Globulins 0.8 TABBY M-Will Not observed Serum TABBY Interpret IEP IgG 1090 IEP IgA 143 IEP IgM 84 Free [place] LC, Quant 86.3 H Free Lambda LC, Quant 58.9 H Free [place]/Lambda Ratio 1.47 08/18/18 08/18/18 12:56 18:15 WBC RBC Hgb Hct MCV MCH MCHC RDW Plt Count MPV Sodium Potassium Chloride Carbon Dioxide Anion Gap BUN Creatinine Creat Clearance w eGFR POC Glucometer 186 230 Random Glucose Calcium Phosphorus Magnesium Total Protein (PEP) Albumin (PEP) Globulin Albumin/Globulin Ratio Beta Globulins TABBY M-Will Serum TABBY Interpret IEP IgG IEP IgA IEP IgM Free [place] LC, Quant Free Lambda LC, Quant Free [place]/Lambda Ratio Active Medications Generic Name Dose Route Start Last Admin Trade Name Freq PRN Reason Stop Dose Admin Acetaminophen 650 mg 08/15/18 11:26 08/19/18 01:55 Tylenol - PO 650 mg Q4H PRN Administration PAIN LEVEL 6-10 Carvedilol 25 mg 08/13/18 22:00 08/18/18 21:29 Coreg - PO 25 mg BID LISA Administration Diazepam 5 mg 08/14/18 17:32 08/16/18 22:17 Valium - PO 5 mg Q8H PRN Administration WITHDRAWAL(CONT SUBST) Docusate Sodium 100 mg 08/13/18 15:11 08/16/18 23:38 Colace - PO 100 mg BID PRN Administration CONSTIPATION Ergocalciferol 50,000 unit 08/15/18 10:00 08/15/18 10:01 Drisdol - PO 50,000 unit Tu@1000 LISA Administration Gabapentin 300 mg 08/13/18 22:00 08/18/18 21:29 Neurontin - PO 300 mg TID [facility] Administration Insulin Aspart 1 vial 08/13/18 16:30 08/18/18 18:16 Novolog Vial Sliding Scale - SQ Not Given TIDAC [facility] Protocol Lisinopril 2.5 mg 08/15/18 22:00 08/18/18 21:29 Prinivil PO 2.5 mg BID LISA Administration Melatonin 5 mg 08/15/18 17:49 Melatonin PO HS PRN INSOMNIA Multivitamins/Minerals/Vitamin C 1 tab 08/15/18 10:00 08/18/18 11:16 Tab-A-Vit - PO 1 tab DAILY [facility] Administration Oxycodone HCl 10 mg 08/15/18 11:27 08/19/18 01:54 Roxicodone - PO 10 mg Q4H PRN Administration PAIN LEVEL 6-10 Rivaroxaban 20 mg 08/14/18 10:00 08/18/18 09:28 Xarelto - PO Not Given DAILY [facility] Torsemide 50 mg 08/14/18 16:00 08/18/18 11:23 Demadex - PO 50 mg DAILY [facility] Administration Zolpidem Tartrate 5 mg 08/13/18 15:11 08/17/18 23:16 Ambien - PO 5 mg HS PRN Administration INSOMNIA ASSESSMENT/PLAN: 73 y/o F with h/o HTN, NIDDM, HFpEF (06/19/18 EF ~50%), intractable lower back pain s/p L4-L5 s/p laminectomy, L2-S1 seroma s/p drainage, 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 Lower Back Pain -s/p L4-L5 laminectomy, seroma with IR drainage -Pain control with Percocet 10 Q4, Valium 5 mg PO Q8 -Neurontin 300 mg PO BID -CT noted with interval air pockets, pelvic CT with air and fluid collection noted -ID consult appreciated, no Abx at this time -Case discussed with Dr. Borjas, CT findings are likely myxomatous collection routinely seen in post op spine patients, very unlikely infxn -As per Ortho: Likely for CT guided marcaine injection into left SI joint, could require repeat lumbar/sacral exlporation in [place] -Pain management evaluated, will await further recommendations -D/C to home with services until procedure can be done TuesdayAug 23 HFpEF -EF 50% in 06/19/18 -Cardiology consult appreciated -Prinivil started, will monitor b.p and hold if systolic below 100 NIDDM -BGMs ACHS -Insulin sliding scale for glycemic control Hx DVT/PE -On Xarelto, with IVC filter ->10 yrs ago DVT Prophylaxis -Xarelto 20 mg PO Daily, HOLD until following joint injection FEN -Fluids: none -Electrolytes: No electrolyte abnormalities, BMP in AM -Nutrition: Na controlled diet Disposition Med/Surg, D/C pending home services Visit type - Emergency Visit Emergency Visit: Yes ED Registration Date: 08/13/18 Care time: The patient presented to the Emergency Department on the above date and was hospitalized for further evaluation of their emergent condition. - New Patient This patient is new to me today: No - Critical Care Critical Care patient: No
--- NOTE | 2018-08-19 06:36 | PN ---
Teaching Attending Note Name of Resident: Jeffery Burrell ATTENDING PHYSICIAN STATEMENT I saw and evaluated the patient. I reviewed the resident's note and discussed the case with the resident. I agree with the resident's findings and plan as documented. SUBJECTIVE: Patient says pain is better. She is agreeable to discharge home today with outpatient SI joint injection by IR after Xarelto held x 4 days. OBJECTIVE: HEART: S1S2, RRR LUNGS: Clear ABDOMEN: Obese, soft, non-tender, non-distended, normal BS EXTREMITIES: No edema ASSESSMENT AND PLAN: This is a 73 year old woman with a history of HTN, type 2 DM, chronic diastolic heart failure, lap band, left TKR complicated by Staph infection, chronic low back pain, L4/5 laminectomy, L2-S1 seroma s/p drainage, PE/DVT, IVC filter who presented to the ED with worsening back pain radiating down both legs. 1. Intractable back pain, DDD, history of L4-5 laminectomy, drainage of L2-S1 seroma - CT L-spine and pelvis shows fluid collection L3-S2 extending to posterior epidural space, with findings suspicious for gas forming bacteria - As per ID and ortho, no evidence of infectio - Ortho recommending SI joint injection - Xarelto on hold - needs to be held x 4 days for injection - Patient can be discharged and come to IR for injection as outpatient - Continue Neurontin - Continue physical therapy 2. HTN - Continue Coreg, Lisinopril, Demadex 3. Atrial fibrillation, paroxysmal - Remains in sinus rhythm - Continue Coreg - Xarelto being held for SI joint injection 4. Chronic systolic and diastolic heart failure - Stable - Continue Coreg, Lisinopril, Demadex 5. Mitral regurgitation 6. Type 2 DM - Continue Novolog sliding scale 7. Obesity, history of lap band 8. History of DVT/PE - Xarelto being held for SI joint injection - Has IVC filter
[2018-08-19] MEDS: GABAPENTIN 300 MG CAPSULE (FP) PO SCH ×3 (07:10→21:31)
[2018-08-19] MEDS: INSULIN SLIDING SCALE (NOVOLOG) 1 VIAL SQ SCH ×3 (07:11→17:26)
--- NOTE | 2018-08-19 10:37 | PN ---
Progress Note (short form) - Note Progress Note: s: no cp sob palps dizzy o: Vital Signs Period Temp Pulse Resp BP Sys/Marcelo Pulse Ox Last 24 Hr 98 F-98.1 F 63-74 20-20 116-134/49-75 Constitutional: Yes: Well Nourished, No Distress Eyes: No: Sclera Icterus Respiratory: Yes: CTA Bilaterally. No: Accessory Muscle Use, Rales, Wheezes Gastrointestinal: Yes: Normal Bowel Sounds. No: Distention, Hepatomegaly, Palpable Mass, Tenderness Cardiovascular: Yes: Regular Rate and Rhythm JVD: No Heart Sounds: Yes: S1, S2. No: Gallop Murmur: No: Systolic Murmur, Diastolic Murmur Extremities: No: Cold, Cyanosis Edema: No Peripheral Pulses: 2+ Left Carotid, 2+ Right Carotid, 2+ Left Doralis Pedis, 2+ Right Dorsalis Pedis Integumentary: No: Jaundice Neurological: Yes: Alert, Oriented (x3) Psychiatric: No: Agitated Current Medications Generic Name Dose Route Start Last Admin Trade Name Freq PRN Reason Stop Dose Admin Acetaminophen 650 mg 08/15/18 11:26 08/19/18 07:19 Tylenol - PO 650 mg Q4H PRN Administration PAIN LEVEL 6-10 Carvedilol 25 mg 08/13/18 22:00 08/18/18 21:29 Coreg - PO 25 mg BID LISA Administration Diazepam 5 mg 08/14/18 17:32 08/16/18 22:17 Valium - PO 5 mg Q8H PRN Administration WITHDRAWAL(CONT SUBST) Docusate Sodium 100 mg 08/13/18 15:11 08/16/18 23:38 Colace - PO 100 mg BID PRN Administration CONSTIPATION Ergocalciferol 50,000 unit 08/15/18 10:00 08/15/18 10:01 Drisdol - PO 50,000 unit Tu@1000 LISA Administration Gabapentin 300 mg 08/13/18 22:00 08/19/18 07:10 Neurontin - PO 300 mg TID LISA Administration Insulin Aspart 1 vial 08/13/18 16:30 08/19/18 07:11 Novolog Vial Sliding Scale - SQ Not Given TIDAC [facility] Protocol Lisinopril 2.5 mg 08/15/18 22:00 08/18/18 21:29 Prinivil PO 2.5 mg BID LISA Administration Melatonin 5 mg 08/15/18 17:49 Melatonin PO HS PRN INSOMNIA Multivitamins/Minerals/Vitamin C 1 tab 08/15/18 10:00 08/18/18 11:16 Tab-A-Vit - PO 1 tab DAILY LISA Administration Oxycodone HCl 10 mg 08/15/18 11:27 08/19/18 07:18 Roxicodone - PO 10 mg Q4H PRN Administration PAIN LEVEL 6-10 Rivaroxaban 20 mg 08/14/18 10:00 08/18/18 09:28 Xarelto - PO Not Given DAILY LISA Torsemide 50 mg 08/14/18 16:00 08/18/18 11:23 Demadex - PO 50 mg DAILY LISA Administration Zolpidem Tartrate 5 mg 08/13/18 15:11 08/17/18 23:16 Ambien - PO 5 mg HS PRN Administration INSOMNIA CBC, BMP 08/18/18 06:40 08/18/18 06:40 echo here 06/2018: nl lv, rv tds, mild mr, nl rvsp echo (office) 03/25: 1. The left ventricular size is normal. 2. Overall left ventricular systolic function is normal with, an EF between 55 - 60 %. Watts's EF calculation (apical 4 chamber) = 62%. 3. LA pressure is probably elevated. 4. The right ventricle is normal in size and function. 5. Left atrium is normal size by volume. 6. The mitral valve leaflets are mildly thickened. Posterior leaflet is tethered in motion. 7. Moderate mitral regurgitation is present (central jet). No systolic flow reversal present in pulmonary vein. 8. Unable to estimate RVSP due to inadequate TR jet spectral doppler profile; it is at least 36 mmHg (i.e. mildly elevated). echo here 06/01/17: nl lv, nl rv size, mild fernando, sev mr, mild tr, nl rvsp echo in office 05/09/2017: mild-mod lve, lvef 30-35%, global hk, nl rv size, mild dec rv fcn, mild lae, mod-sev mr mibi 05/2014: no ischemia, mildly reduced lvef cath 2005: normal cors a/p: 71 f hx multiple PEs/DVTs s/p ivc filter and on xarelto dm, hld, htn, sys chf, here with back/leg pain, found with para-spinal fluid collection chronic mixed systolic/diastolic HF: -nonisch CMP dx'd 2014 (L/RHC moderately elevated wedge (25) and corresponding elevation in PAPs (50/25); NORMAL CORONARIES -severely reduced cardiac index on that RHC -more recent echo as outpt shows normalization in EF, ? related to improved med compliance, ? wt loss-->NICHOLE improved (untreated before). -echo here 06/25 unremarkable, had volume overload at that time related to hypotension requiring diuretics held, and IVF treatment--sent out on torsemide 20 qd, DORENE held for low bp. -then again with PNA 07/25 causing chf exacerbation--sent out on torsemide 50 qd , carvedilol 25 bid, lisinopril 5 qd -BNP 2K (baseline range 2-3K) -no volume on exam and cxr clear. cont torsemide 50 po qd for now, low threshold to incr to 100 qd if sob worsens. -tolerate sbp > 90 here -despite EF normalized, prefer to maintain BB and DORENE regimen, as these meds may have been reason for improvement in systolic fxn. -cont carvedilol 25 bid, lisinopril 2.5 mg BID s/p spine surgery, back pain, fluid collection: -per ID, neurosurgery, hospitalist Atrial fibrillation - new diagnosis when here 07/25 with PNA - carvedilol dose (previously lowered due to low bp's) increased to 25 mg BID for rapid HRs--improved - in sinus on exam, HR good--cont same bb - on xarelto for DVT/PE as well -holding xarelto currently for possible SI joint injection, restart when able following procedure HTN: - stable, controlled without lows at the moment - same meds h/o VTEs (DVTs and PEs): -s/p IVC filter -on lifelong AC per prior plan (felt to be hypercoagulable by heme) - on xarelto NICHOLE: -not compliant with cpap
[2018-08-19] MEDS: LISINOPRIL 5 MG TABLET (FP) PO SCH ×2 (11:44→21:31)
[2018-08-19] MEDS: CARVEDILOL 25 MG TABLET (FP) PO SCH ×2 (11:45→21:31)
[2018-08-19] MEDS: MULTIVITAMINS (DAILY MVI) TABLET (FP) PO SCH (11:45)
[2018-08-19] MEDS: TORSEMIDE 100 MG TABLET PO SCH (11:45)
[2018-08-19] MEDS: RIVAROXABAN 20 MG TABLET PO SCH (13:38)
--- NOTE | 2018-08-19 15:12 | PN ---
Progress Note (short form) - Note Progress Note: Awaiting CT guided SI joint injection on Tue Anticoagulation held Clinically unchanged General med parameters as per chart Cardiology note assessed Mobilizing only possible with PT or nursing staff. Neuro All at baseline Mskeletal Tender buttock L enthesiopathic. Wants to go home
--- NOTE | 2018-08-19 16:11 | PN ---
Progress Note (short form) - Note Progress Note: Patient has no symptoms seen by cardio and ortho no new change no fever or dizziness vs Vital Signs Period Temp Pulse Resp BP Sys/Marcelo Pulse Ox Last 24 Hr 98.1 F 63-74 20-20 118-134/49-50 Heent nad lungs clear heart no change ext trace leg edema neris report clerk alert and grossly intact Laboratory Results - last 24 hr 08/17/18 08/18/18 08/19/18 06:30 18:15 06:55 POC Glucometer 230 178 Total Protein (PEP) 5.9 L Albumin (PEP) 2.6 L Globulin 3.3 Albumin/Globulin Ratio 0.8 Beta Globulins 0.8 TABBY M-Will Not observed Serum TABBY Interpret IEP IgG 1090 IEP IgA 143 IEP IgM 84 Free [place] LC, Quant 86.3 H Free Lambda LC, Quant 58.9 H Free [place]/Lambda Ratio 1.47 08/19/18 11:43 POC Glucometer 198 Total Protein (PEP) Albumin (PEP) Globulin Albumin/Globulin Ratio Beta Globulins TABBY M-Will Serum TABBY Interpret IEP IgG IEP IgA IEP IgM Free [place] LC, Quant Free Lambda LC, Quant Free [place]/Lambda Ratio Current Medications Acetaminophen (Tylenol -) 650 mg PO Q4H PRN PRN Reason: PAIN LEVEL 6-10 Last Admin: 08/19/18 11:46 Dose: 650 mg Carvedilol (Coreg -) 25 mg PO BID [facility] Last Admin: 08/19/18 11:45 Dose: 25 mg Diazepam (Valium -) 5 mg PO Q8H PRN PRN Reason: WITHDRAWAL(CONT SUBST) Last Admin: 08/16/18 22:17 Dose: 5 mg Docusate Sodium (Colace -) 100 mg PO BID PRN PRN Reason: CONSTIPATION Last Admin: 08/16/18 23:38 Dose: 100 mg Ergocalciferol (Drisdol -) 50,000 unit PO Tu@1000 [facility] Last Admin: 08/15/18 10:01 Dose: 50,000 unit Gabapentin (Neurontin -) 300 mg PO TID [facility] Last Admin: 08/19/18 15:09 Dose: 300 mg Insulin Aspart (Novolog Vial Sliding Scale -) 1 vial SQ [facility]AC [facility]; Protocol Last Admin: 08/19/18 12:09 Dose: Not Given Lisinopril (Prinivil) 2.5 mg PO BID [facility] Last Admin: 08/19/18 11:44 Dose: 2.5 mg Melatonin (Melatonin) 5 mg PO HS PRN PRN Reason: INSOMNIA Multivitamins/Minerals/Vitamin C (Tab-A-Vit -) 1 tab PO DAILY [facility] Last Admin: 08/19/18 11:45 Dose: 1 tab Oxycodone HCl (Roxicodone -) 10 mg PO Q4H PRN PRN Reason: PAIN LEVEL 6-10 Last Admin: 08/19/18 11:46 Dose: 10 mg Rivaroxaban (Xarelto -) 20 mg PO DAILY [facility] Last Admin: 08/19/18 13:38 Dose: Not Given Torsemide (Demadex -) 50 mg PO DAILY [facility] Last Admin: 08/19/18 11:45 Dose: 50 mg Zolpidem Tartrate (Ambien -) 5 mg PO HS PRN PRN Reason: INSOMNIA Last Admin: 08/17/18 23:16 Dose: 5 mg ASSESSMENT AND PLAN: This is a 73 year old woman with a history of HTN, type 2 DM, chronic diastolic heart failure, lap band, left TKR complicated by Staph infection, chronic low back pain, L4/5 laminectomy, L2-S1 seroma s/p drainage, PE/DVT, IVC filter who presented to the ED with worsening back pain radiating down both legs. 1. Intractable back pain, - Ortho recommending SI joint injection - Xarelto on hold - needs to be held x 4 days for injection and today is 2nd day - Patient can be discharged and come to IR for injection as outpatient - Continue Neurontin - Continue physical therapy 2. HTN - stable Continue Coreg, Lisinopril, Demadex 3. Atrial fibrillation, paroxysmal - Remains in sinus rhythm - Continue Coreg - Xarelto being held for SI joint injection 4. Chronic systolic and diastolic heart failure - Stable - Continue Coreg, Lisinopril, Demadex 5. Mitral regurgitation 6. Type 2 DM - Continue Novolog sliding scale sugar level is decent 7. Obesity, history of lap band 8. History of DVT/PE - Xarelto being held for SI joint injection - Has IVC filter
[2018-08-19] MEDS: diazePAM 5 MG TABLET PO PRN (21:31)
[2018-08-19] MEDS: ZOLPIDEM TARTRATE 5 MG TABLET PO PRN (23:07)
[2018-08-20] MEDS: oxyCODONE HCL 5 MG TABLET PO PRN ×3 (02:15→14:55)
[2018-08-20] MEDS: ACETAMINOPHEN 325 MG TABLET (FP) PO PRN ×3 (02:16→14:56)
[2018-08-20] MEDS: GABAPENTIN 300 MG CAPSULE (FP) PO SCH ×3 (06:06→22:07)
[2018-08-20] MEDS: INSULIN SLIDING SCALE (NOVOLOG) 1 VIAL SQ SCH ×3 (06:06→17:32)
[2018-08-20] MEDS: LISINOPRIL 5 MG TABLET (FP) PO SCH ×2 (09:29→22:08)
[2018-08-20] MEDS: CARVEDILOL 25 MG TABLET (FP) PO SCH ×2 (09:29→22:08)
[2018-08-20] MEDS: MULTIVITAMINS (DAILY MVI) TABLET (FP) PO SCH (09:32)
[2018-08-20] MEDS: TORSEMIDE 100 MG TABLET PO SCH (09:33)
--- NOTE | 2018-08-20 10:51 | PN ---
Physical Exam: SUBJECTIVE: Patient seen and examined, Grumpy, refusing to be examined. Says "everything is the same, nothing has changed". Says she will be in the hospital till Tuesday to get an injection. OBJECTIVE: Vital Signs Period Temp Pulse Resp BP Sys/Marcelo Pulse Ox Last 24 Hr 97.6 F-98.4 F 67-71 19-20 96-128/46-62 100 Vital Signs Temp 98.4 F 08/20/18 06:00 Pulse 84 08/20/18 10:00 Resp 18 08/20/18 10:00 BP 106/60 08/20/18 10:00 Pulse Ox 97 08/20/18 09:00 Intake & Output 08/19/18 08/20/18 08/20/18 23:59 11:59 23:59 Intake Total 360 Balance 360 Intake: Oral 360 Other: Voiding Method Toilet Toilet # Unmeasured Voids Void 1 2 Bowel Movement No No GENERAL: The patient is drowsy but arousable, in no acute distress. LUNGS: Breath sounds equal, clear to auscultation bilaterally, no wheezes, no crackles HEART: Regular rate and rhythm, S1, S2 ABDOMEN: Soft, nontender, nondistended, normoactive bowel sounds EXTREMITIES: 2+ pulses, warm, well-perfused, no edema. NEUROLOGICAL: No obvious facial asymmetry or lateralizing signs. Normal speech, gait not observed. Musculoskeletal: Tender lower spine Laboratory Results - last 24 hr 08/19/18 08/19/18 08/20/18 11:43 17:24 06:05 POC Glucometer 198 194 206 Active Medications Generic Name Dose Route Start Last Admin Trade Name Abelq PRN Reason Stop Dose Admin Acetaminophen 650 mg 08/15/18 11:26 08/20/18 09:34 Tylenol - PO 650 mg Q4H PRN Administration PAIN LEVEL 6-10 Carvedilol 25 mg 08/13/18 22:00 08/20/18 09:29 Coreg - PO 25 mg BID LISA Administration Diazepam 5 mg 08/14/18 17:32 08/19/18 21:31 Valium - PO 5 mg Q8H PRN Administration WITHDRAWAL(CONT SUBST) Docusate Sodium 100 mg 08/13/18 15:11 08/16/18 23:38 Colace - PO 100 mg BID PRN Administration CONSTIPATION Ergocalciferol 50,000 unit 08/15/18 10:00 08/15/18 10:01 Drisdol - PO 50,000 unit Tu@1000 LISA Administration Gabapentin 300 mg 08/13/18 22:00 08/20/18 06:06 Neurontin - PO 300 mg TID LISA Administration Insulin Aspart 1 vial 08/13/18 16:30 08/20/18 06:06 Novolog Vial Sliding Scale - SQ 2 units TIDAC LISA Administration Protocol Lisinopril 2.5 mg 08/15/18 22:00 08/20/18 09:29 Prinivil PO 2.5 mg BID LISA Administration Melatonin 5 mg 08/15/18 17:49 Melatonin PO HS PRN INSOMNIA Multivitamins/Minerals/Vitamin C 1 tab 08/15/18 10:00 08/20/18 09:32 Tab-A-Vit - PO 1 tab DAILY LISA Administration Oxycodone HCl 10 mg 08/15/18 11:27 08/20/18 09:34 Roxicodone - PO 10 mg Q4H PRN Administration PAIN LEVEL 6-10 Rivaroxaban 20 mg 08/14/18 10:00 08/19/18 13:38 Xarelto - PO Not Given DAILY LISA Torsemide 50 mg 08/14/18 16:00 08/20/18 09:33 Demadex - PO 50 mg DAILY LISA Administration Zolpidem Tartrate 5 mg 08/13/18 15:11 08/19/18 23:07 Ambien - PO 5 mg HS PRN Administration INSOMNIA ECHO records per Cardiology: echo here 06/2018: nl lv, rv tds, mild mr, nl rvsp echo (office) 03/25: 1. The left ventricular size is normal. 2. Overall left ventricular systolic function is normal with, an EF between 55 - 60 %. Watts's EF calculation ( apical 4 chamber) = 62%. 3. LA pressure is probably elevated. 4. The right ventricle is normal in size and function. 5. Left atrium is normal size by volume. 6. The mitral valve leaflets are mildly thickened. Posterior leaflet is tethered in motion. 7. Moderate mitral regurgitation is present (central jet). No systolic flow reversal present in pulmonary vein. 8. Unable to estimate RVSP due to inadequate TR jet spectral doppler profile; it is at least 36 mmHg (i.e. mildly elevated). echo here 06/01/17: nl lv, nl rv size, mild fernando, sev mr, mild tr, nl rvsp echo in office 05/09/2017: mild-mod lve, lvef 30-35%, global hk, nl rv size, mild dec rv fcn, mild lae, mod-sev mr mibi 05/2014: no ischemia, mildly reduced lvef cath 2005: normal cors ASSESSMENT/PLAN: 73 y/o F with h/o HTN, NIDDM, HFpEF (06/19/18 EF ~50%), intractable lower back pain s/p L4-L5 s/p laminectomy, L2-S1 seroma s/p drainage, 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 #Lower Back Pain -s/p L4-L5 laminectomy, seroma with IR drainage -Pain control with Percocet 10 Q4, Valium 5 mg PO Q8 -Neurontin 300 mg PO BID -CT noted with interval air pockets, pelvic CT with air and fluid collection noted -ID consult appreciated, no Abx at this time -Per internal controls analyst's d/w Dr. Borjas, CT findings are likely myxomatous collection routinely seen in post op spine patients, very unlikely infxn -As per Ortho: Likely for CT guided marcaine injection into left SI joint, could require repeat lumbar/sacral exlporation in OR for tuesday -Pain management evaluated, will await further recommendations -Per pt, waiting in hospital for procedure to be done TuesdayAug 23 #chronic mixed systolic/diastolic HF: -EF 50% in 06/19/18, see records from Platform Operations Director above -Cardiology consult appreciated -Prinivil started, will monitor b.p and hold if systolic below 100 -Has been on torsemide 50daily, appears cr- is rising, D/W Dr Choi, will hold dose for tomorrow and monitor BMP for resumption, he said pt needs to be on diuretic but could hold for 1 day #Afib -Diagnosed Jul 2018 -EKG-08/20/17- SR -D/W Dr Choi- option of heparin drip, but since in sinus, will hold off for now pending injection #NIDDM -BGMs ACHS -Insulin sliding scale for glycemic control #Mitral regurgitation -Cards on case #Hx DVT/PE -On Xarelto, with IVC filter (xarelto on hold) ->10 yrs ago #DVT Prophylaxis -Xarelto 20 mg PO Daily, HOLD until following joint injection FEN -Fluids: none -Electrolytes: No electrolyte abnormalities, BMP in AM -Nutrition: Na controlled diet Disposition Med/Surg, D/C pending home services Visit type - Emergency Visit Emergency Visit: Yes ED Registration Date: 08/13/18 Care time: The patient presented to the Emergency Department on the above date and was hospitalized for further evaluation of their emergent condition. - New Patient This patient is new to me today: Yes Date on this admission: 08/20/18 - Critical Care Critical Care patient: No - Discharge Referral Referred to [facility] Med P.C.: No
--- NOTE | 2018-08-20 10:57 | PN ---
Progress Note (short form) - Note Progress Note: s: no cp sob palps dizzy o: Vital Signs Period Temp Pulse Resp BP Sys/Marcelo Pulse Ox Last 24 Hr 97.6 F-98.4 F 67-71 19-20 96-128/46-62 100 Constitutional: Yes: Well Nourished, No Distress Eyes: No: Sclera Icterus Respiratory: Yes: CTA Bilaterally. No: Accessory Muscle Use, Rales, Wheezes Gastrointestinal: Yes: Normal Bowel Sounds. No: Distention, Hepatomegaly, Palpable Mass, Tenderness Cardiovascular: Yes: Regular Rate and Rhythm JVD: No Heart Sounds: Yes: S1, S2. No: Gallop Murmur: No: Systolic Murmur, Diastolic Murmur Extremities: No: Cold, Cyanosis Edema: No Peripheral Pulses: 2+ Left Carotid, 2+ Right Carotid, 2+ Left Doralis Pedis, 2+ Right Dorsalis Pedis Integumentary: No: Jaundice Neurological: Yes: Alert, Oriented (x3) Psychiatric: No: Agitated Current Medications Generic Name Dose Route Start Last Admin Trade Name Freq PRN Reason Stop Dose Admin Acetaminophen 650 mg 08/15/18 11:26 08/20/18 09:34 Tylenol - PO 650 mg Q4H PRN Administration PAIN LEVEL 6-10 Carvedilol 25 mg 08/13/18 22:00 08/20/18 09:29 Coreg - PO 25 mg BID LISA Administration Diazepam 5 mg 08/14/18 17:32 08/19/18 21:31 Valium - PO 5 mg Q8H PRN Administration WITHDRAWAL(CONT SUBST) Docusate Sodium 100 mg 08/13/18 15:11 08/16/18 23:38 Colace - PO 100 mg BID PRN Administration CONSTIPATION Ergocalciferol 50,000 unit 08/15/18 10:00 08/15/18 10:01 Drisdol - PO 50,000 unit Tu@1000 LISA Administration Gabapentin 300 mg 08/13/18 22:00 08/20/18 06:06 Neurontin - PO 300 mg TID LISA Administration Insulin Aspart 1 vial 08/13/18 16:30 08/20/18 06:06 Novolog Vial Sliding Scale - SQ 2 units TIDAC LISA Administration Protocol Lisinopril 2.5 mg 08/15/18 22:00 08/20/18 09:29 Prinivil PO 2.5 mg BID LISA Administration Melatonin 5 mg 08/15/18 17:49 Melatonin PO HS PRN INSOMNIA Multivitamins/Minerals/Vitamin C 1 tab 08/15/18 10:00 08/20/18 09:32 Tab-A-Vit - PO 1 tab DAILY LISA Administration Oxycodone HCl 10 mg 08/15/18 11:27 08/20/18 09:34 Roxicodone - PO 10 mg Q4H PRN Administration PAIN LEVEL 6-10 Rivaroxaban 20 mg 08/14/18 10:00 08/19/18 13:38 Xarelto - PO Not Given DAILY LISA Torsemide 50 mg 08/14/18 16:00 08/20/18 09:33 Demadex - PO 50 mg DAILY LISA Administration Zolpidem Tartrate 5 mg 08/13/18 15:11 08/19/18 23:07 Ambien - PO 5 mg HS PRN Administration INSOMNIA CBC, BMP 08/18/18 06:40 08/18/18 06:40 echo here 06/2018: nl lv, rv tds, mild mr, nl rvsp echo (office) 03/25: 1. The left ventricular size is normal. 2. Overall left ventricular systolic function is normal with, an EF between 55 - 60 %. Watts's EF calculation (apical 4 chamber) = 62%. 3. LA pressure is probably elevated. 4. The right ventricle is normal in size and function. 5. Left atrium is normal size by volume. 6. The mitral valve leaflets are mildly thickened. Posterior leaflet is tethered in motion. 7. Moderate mitral regurgitation is present (central jet). No systolic flow reversal present in pulmonary vein. 8. Unable to estimate RVSP due to inadequate TR jet spectral doppler profile; it is at least 36 mmHg (i.e. mildly elevated). echo here 06/01/17: nl lv, nl rv size, mild fernando, sev mr, mild tr, nl rvsp echo in office 05/09/2017: mild-mod lve, lvef 30-35%, global hk, nl rv size, mild dec rv fcn, mild lae, mod-sev mr mibi 05/2014: no ischemia, mildly reduced lvef cath 2005: normal cors a/p: 71 f hx multiple PEs/DVTs s/p ivc filter and on xarelto dm, hld, htn, sys chf, here with back/leg pain, found with para-spinal fluid collection chronic mixed systolic/diastolic HF: -nonisch CMP dx'd 2014 (L/RHC moderately elevated wedge (25) and corresponding elevation in PAPs (50/25); NORMAL CORONARIES -severely reduced cardiac index on that RHC -more recent echo as outpt shows normalization in EF, ? related to improved med compliance, ? wt loss-->NICHOLE improved (untreated before). -echo here 06/25 unremarkable, had volume overload at that time related to hypotension requiring diuretics held, and IVF treatment--sent out on torsemide 20 qd, DORENE held for low bp. -then again with PNA 07/25 causing chf exacerbation--sent out on torsemide 50 qd , carvedilol 25 bid, lisinopril 5 qd -BNP 2K (baseline range 2-3K) -no volume on exam and cxr clear. cont torsemide 50 po qd for now, low threshold to incr to 100 qd if sob worsens. -tolerate sbp > 90 here -despite EF normalized, prefer to maintain BB and DORENE regimen, as these meds may have been reason for improvement in systolic fxn. -cont carvedilol 25 bid, lisinopril 2.5 mg BID s/p spine surgery, back pain, fluid collection: -per ID, neurosurgery, hospitalist -plan for back injection this week Atrial fibrillation - new diagnosis when here 07/25 with PNA - carvedilol dose (previously lowered due to low bp's) increased to 25 mg BID for rapid HRs--improved - in sinus on exam, HR good--cont same bb - on xarelto for DVT/PE as well -holding xarelto currently for possible SI joint injection, restart when able following procedure HTN: - stable, controlled without lows at the moment - same meds h/o VTEs (DVTs and PEs): -s/p IVC filter -on lifelong AC per prior plan (felt to be hypercoagulable by heme) - on xarelto NICHOLE: -not compliant with cpap
--- NOTE | 2018-08-20 12:24 | EKG ---
Test Reason : Blood Pressure : / mmHG Vent. Rate : 063 BPM Atrial Rate : 063 BPM P-R Int : 184 ms QRS Dur : 084 ms QT Int : 448 ms P-R-T Axes : 031 057 084 degrees QTc Int : 458 ms NORMAL SINUS RHYTHM NORMAL ECG WHEN COMPARED WITH ECG OF 27-JUL-2018 08:56, PREMATURE VENTRICULAR COMPLEXES ARE NO LONGER PRESENT NONSPECIFIC T WAVE ABNORMALITY HAS REPLACED INVERTED T WAVES IN LATERAL LEADS Confirmed by RENZO CHOU, LEONEL ([id number]) on 08/20/2018 12:24:08 PM Referred By: Ilsa PAULA Confirmed By:LEONEL MULLER MD
--- NOTE | 2018-08-20 14:21 | PN ---
Teaching Attending Note Name of Resident: Krysten Bob ATTENDING PHYSICIAN STATEMENT I saw and evaluated the patient. I reviewed the resident's note and discussed the case with the resident. I agree with the resident's findings and plan as documented. SUBJECTIVE:she continue to have pains seen by spine surgery and He spoke to nurse and patient that she shouldn't go home till has injection her ekg shows she is sinus OBJECTIVE: Vital Signs Period Temp Pulse Resp BP Sys/Marcelo Pulse Ox Last 24 Hr 97.8 F-98.4 F 67-84 18-19 96-128/50-62 97-100 Heent nad neck supple lungs clear heart no change ext no edema Laboratory Results - last 24 hr 08/19/18 08/20/18 08/20/18 17:24 06:05 11:16 POC Glucometer 194 206 203 Current Medications Acetaminophen (Tylenol -) 650 mg PO Q4H PRN PRN Reason: PAIN LEVEL 6-10 Last Admin: 08/20/18 09:34 Dose: 650 mg Carvedilol (Coreg -) 25 mg PO BID [facility] Last Admin: 08/20/18 09:29 Dose: 25 mg Diazepam (Valium -) 5 mg PO Q8H PRN PRN Reason: WITHDRAWAL(CONT SUBST) Last Admin: 08/19/18 21:31 Dose: 5 mg Docusate Sodium (Colace -) 100 mg PO BID PRN PRN Reason: CONSTIPATION Last Admin: 08/16/18 23:38 Dose: 100 mg Ergocalciferol (Drisdol -) 50,000 unit PO Tu@1000 [facility] Last Admin: 08/15/18 10:01 Dose: 50,000 unit Gabapentin (Neurontin -) 300 mg PO TID [facility] Last Admin: 08/20/18 06:06 Dose: 300 mg Insulin Aspart (Novolog Vial Sliding Scale -) 1 vial SQ TIDAC [facility]; Protocol Last Admin: 08/20/18 11:28 Dose: 2 units Lisinopril (Prinivil) 2.5 mg PO BID [facility] Last Admin: 08/20/18 09:29 Dose: 2.5 mg Melatonin (Melatonin) 5 mg PO HS PRN PRN Reason: INSOMNIA Multivitamins/Minerals/Vitamin C (Tab-A-Vit -) 1 tab PO DAILY [facility] Last Admin: 08/20/18 09:32 Dose: 1 tab Oxycodone HCl (Roxicodone -) 10 mg PO Q4H PRN PRN Reason: PAIN LEVEL 6-10 Last Admin: 08/20/18 09:34 Dose: 10 mg Rivaroxaban (Xarelto -) 20 mg PO DAILY [facility] Last Admin: 08/19/18 13:38 Dose: Not Given Torsemide (Demadex -) 50 mg PO DAILY [facility] Last Admin: 08/20/18 09:33 Dose: 50 mg Zolpidem Tartrate (Ambien -) 5 mg PO HS PRN PRN Reason: INSOMNIA Last Admin: 08/19/18 23:07 Dose: 5 mg ASSESSMENT AND PLAN: SSESSMENT AND PLAN: This is a 73 year old woman with a history of HTN, type 2 DM, chronic diastolic heart failure, lap band, left TKR complicated by Staph infection, chronic low back pain, L4/5 laminectomy, L2-S1 seroma s/p drainage, PE/DVT, IVC filter who presented to the ED with worsening back pain radiating down both legs. 1. Intractable back pain, - Ortho recommending SI joint injection - Xarelto on hold - needs to be held x 4 days for injection and today is 3nd day - Patient can be discharged and come to IR for injection as outpatient - Continue Neurontin - Continue physical therapy 2. HTN - stable Continue Coreg, Lisinopril, Demadex 3. Atrial fibrillation, paroxysmal - Remains in sinus rhythm - Continue Coreg - Xarelto being held for SI joint injection
[2018-08-20] MEDS: ZOLPIDEM TARTRATE 5 MG TABLET PO PRN (22:08)
[2018-08-20] MEDS: DOCUSATE SODIUM 100 MG CAPSULE (FP) PO PRN (22:08)
[2018-08-20] MEDS: diazePAM 5 MG TABLET PO PRN (23:30)
[2018-08-21] MEDS: oxyCODONE HCL 5 MG TABLET PO PRN ×4 (05:39→21:25)
[2018-08-21] MEDS: GABAPENTIN 300 MG CAPSULE (FP) PO SCH ×3 (05:39→21:26)
[2018-08-21] MEDS: INSULIN SLIDING SCALE (NOVOLOG) 1 VIAL SQ SCH ×3 (06:09→19:52)
[2018-08-21 08:31] LABS: EOS % 3.7 % (0-4.5); HEMATOCRIT 31.8 % (32.4-45.2); HEMOGLOBIN 9.6 GM/dL (10.7-15.3); MCH 25.9 pg (25.7-33.7); MCHC 30.3 g/dl (32.0-36.0); MEAN CELL VOLUME 85.5 fl (80-96); MONO % 11.9 % (3.8-10.2); NEUT % 54.4 % (42.8-82.8); PLATELET COUNT 287 K/MM3 (134-434); RBC 3.72 M/mm3 (3.60-5.2); RDW 16.9 % (11.6-15.6); WHITE BLOOD COUNT 6.5 K/mm3 (4.0-10.0)
[2018-08-21 08:43] LABS: ALBUMIN 2.4 g/dl (3.4-5.0); ALK PHOS 137 U/L (45-117); ANION GAP 7 MMOL/L (8-16); BILIRUBIN,TOTAL 0.3 mg/dL (0.2-1); BLOOD UREA NITROGEN 26 mg/dL (7-18); CALCIUM 8.8 mg/dL (8.5-10.1); CHLORIDE 105 mmol/L (98-107); CO2 27 mmol/L (21-32); CREATININE 0.8 mg/dL (0.55-1.3); GLUCOSE,RANDOM 160 mg/dL (74-106); MAGNESIUM 2.5 mg/dL (1.8-2.4); PHOSPHOROUS 3.4 mg/dL (2.5-4.9); POTASSIUM 5.1 mmol/L (3.5-5.1); SGOT/AST 15 U/L (15-37); SGPT/ALT 10 U/L (13-61); SODIUM 139 mmol/L (136-145); TOT PROT 6.2 g/dl (6.4-8.2)
[2018-08-21] MEDS ORDERED: INSULIN (NOVOLOG) ASPART 100 UNITS/ML 10ML VIAL ONE (11:30)
[2018-08-21] MEDS: CARVEDILOL 25 MG TABLET (FP) PO SCH ×2 (11:39→21:26)
[2018-08-21] MEDS: LISINOPRIL 5 MG TABLET (FP) PO SCH ×2 (11:39→21:26)
[2018-08-21] MEDS: MULTIVITAMINS (DAILY MVI) TABLET (FP) PO SCH (11:39)
[2018-08-21 12:50] LABS: IGG IMMUNOGLOBULIN 1090
[2018-08-21 12:51] LABS: IGA IMMUNOGLOBULIN 143; IGM IMMUNOGLOBULIN 84
[2018-08-21 14:01] LABS: INR 1.25 (0.83-1.09); PROTHROMBIN TIME (PATIENT) 14.8 SEC (9.7-13.0)
[2018-08-21 14:16] VITALS: BMI 37.7
--- NOTE | 2018-08-21 14:16 | PN ---
Physical Exam: SUBJECTIVE: Patient seen and examined this AM. She states her pain has been improving though she did have some increased pain overnight. OBJECTIVE: Vital Signs Period Temp Pulse Resp BP Sys/Marcelo Pulse Ox Last 24 Hr 97.8 F-98.2 F 63-82 18-18 120-139/54-72 97 GENERAL: A&O, minimal distress HEAD: Normocephalic, atraumatic. EYES: PERRL, no scleral icterus NECK: supple without lymphadenopathy LUNGS: CTA b/l, no crackles or wheezes HEART: Regular rate and rhythm, normal S1 and S2 without murmur ABDOMEN: Obese, Soft, nontender to palpation, normoactive bowel sounds MUSCULOSKELETAL: No bony deformities, some tenderness on palpation of lower back NEUROLOGICAL: Cranial nerves II-XII grossly intact. Normal speech. Laboratory Results - last 24 hr 08/17/18 08/20/18 08/21/18 06:30 17:28 05:28 WBC RBC Hgb Hct MCV MCH MCHC RDW Plt Count MPV Absolute Neuts (auto) Neutrophils % Lymphocytes % Monocytes % Eosinophils % Basophils % Nucleated RBC % PT with INR INR Sodium Potassium Chloride Carbon Dioxide Anion Gap BUN Creatinine Creat Clearance w eGFR POC Glucometer 193 135 Random Glucose Calcium Phosphorus Magnesium Total Bilirubin AST ALT Alkaline Phosphatase Total Protein Albumin IgG 1090 IgA 143 IgM 84 08/21/18 08/21/18 08/21/18 06:00 06:00 11:42 WBC 6.5 RBC 3.72 Hgb 9.6 L Hct 31.8 L MCV 85.5 MCH 25.9 MCHC 30.3 L RDW 16.9 H Plt Count 287 MPV 8.0 Absolute Neuts (auto) 3.5 Neutrophils % 54.4 Lymphocytes % 29.0 Monocytes % 11.9 H Eosinophils % 3.7 Basophils % 1.0 Nucleated RBC % 0 PT with INR INR Sodium 139 Potassium 5.1 Chloride 105 Carbon Dioxide 27 Anion Gap 7 L BUN 26 H Creatinine 0.8 Creat Clearance w eGFR > 60 POC Glucometer 267 Random Glucose 160 H Calcium 8.8 Phosphorus 3.4 Magnesium 2.5 H Total Bilirubin 0.3 AST 15 ALT 10 L Alkaline Phosphatase 137 H Total Protein 6.2 L Albumin 2.4 L IgG IgA IgM 08/21/18 11:45 WBC RBC Hgb Hct MCV MCH MCHC RDW Plt Count MPV Absolute Neuts (auto) Neutrophils % Lymphocytes % Monocytes % Eosinophils % Basophils % Nucleated RBC % PT with INR 14.80 H INR 1.25 H Sodium Potassium Chloride Carbon Dioxide Anion Gap BUN Creatinine Creat Clearance w eGFR POC Glucometer Random Glucose Calcium Phosphorus Magnesium Total Bilirubin AST ALT Alkaline Phosphatase Total Protein Albumin IgG IgA IgM Active Medications Generic Name Dose Route Start Last Admin Trade Name Freq PRN Reason Stop Dose Admin Acetaminophen 650 mg 08/15/18 11:26 08/20/18 14:56 Tylenol - PO 650 mg Q4H PRN Administration PAIN LEVEL 6-10 Carvedilol 25 mg 08/13/18 22:00 08/21/18 11:39 Coreg - PO 25 mg BID LISA Administration Diazepam 5 mg 08/14/18 17:32 08/20/18 23:30 Valium - PO 5 mg Q8H PRN Administration WITHDRAWAL(CONT SUBST) Docusate Sodium 100 mg 08/13/18 15:11 08/20/18 22:08 Colace - PO 100 mg BID PRN Administration CONSTIPATION Ergocalciferol 50,000 unit 08/15/18 10:00 08/15/18 10:01 Drisdol - PO 50,000 unit Tu@1000 LISA Administration Gabapentin 300 mg 08/13/18 22:00 08/21/18 05:39 Neurontin - PO 300 mg TID LISA Administration Insulin Aspart 1 vial 08/13/18 16:30 08/21/18 11:43 Novolog Vial Sliding Scale - SQ 4 units TIDAC LISA Administration Protocol Lisinopril 2.5 mg 08/15/18 22:00 08/21/18 11:39 Prinivil PO 2.5 mg BID LISA Administration Melatonin 5 mg 08/15/18 17:49 Melatonin PO HS PRN INSOMNIA Multivitamins/Minerals/Vitamin C 1 tab 08/15/18 10:00 08/21/18 11:39 Tab-A-Vit - PO 1 tab DAILY LISA Administration Oxycodone HCl 10 mg 08/15/18 11:27 08/21/18 11:38 Roxicodone - PO 10 mg Q4H PRN Administration PAIN LEVEL 6-10 Rivaroxaban 20 mg 08/14/18 10:00 08/19/18 13:38 Xarelto - PO Not Given DAILY [facility] Torsemide 50 mg 08/14/18 16:00 01/13/19 09:33 Demadex - PO 50 mg DAILY LISA Administration Zolpidem Tartrate 5 mg 08/13/18 15:11 08/20/18 22:08 Ambien - PO 5 mg HS PRN Administration INSOMNIA ASSESSMENT/PLAN: 73 y/o F with h/o HTN, NIDDM, HFpEF (06/19/18 EF ~50%), intractable lower back pain s/p L4-L5 s/p laminectomy, L2-S1 seroma s/p drainage, 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 Lower Back Pain -s/p L4-L5 laminectomy, seroma with IR drainage -Pain control with Percocet 10 Q4, Valium 5 mg PO Q8 -Neurontin 300 mg PO BID -CT noted with interval air pockets, pelvic CT with air and fluid collection noted -Case discussed with Dr. Borjas, CT findings are likely myxomatous collection routinely seen in post op spine patients -As per Ortho: CT guided marcaine injection into left SI joint, could require repeat lumbar/sacral exlporation in OR -Seen by Dr. Borjas who told the pt Tuesday that she should remain in hospital until after procedure (Tuesday), hold xarelto until after procedure HFpEF -EF 50% in 06/19/18 -Cardiology consult appreciated -Prinivil started, will monitor b.p and hold if systolic below 100 NIDDM -BGMs ACHS -Insulin sliding scale for glycemic control Hx DVT/PE -On Xarelto, with IVC filter ->10 yrs ago DVT Prophylaxis -Xarelto 20 mg PO Daily, HOLD until following joint injection FEN -Fluids: none -Electrolytes: No electrolyte abnormalities, BMP in AM -Nutrition: Na controlled diet Disposition Med/Surg, D/C following CT guided injection Visit type - Emergency Visit Emergency Visit: Yes ED Registration Date: 08/13/18 Care time: The patient presented to the Emergency Department on the above date and was hospitalized for further evaluation of their emergent condition. - New Patient This patient is new to me today: No - Critical Care Critical Care patient: No
--- NOTE | 2018-08-21 14:26 | PN ---
Progress Note (short form) - Note Progress Note: Progress Note: s: no cp sob palps dizzy o: Vital Signs Period Temp Pulse Resp BP Sys/Marcelo Pulse Ox Last 24 Hr 97.8 F-98.2 F 63-82 18-18 120-139/54-72 97 Constitutional: Yes: Well Nourished, No Distress Eyes: No: Sclera Icterus Respiratory: Yes: CTA Bilaterally. No: Accessory Muscle Use, Rales, Wheezes Gastrointestinal: Yes: Normal Bowel Sounds. No: Distention, Hepatomegaly, Palpable Mass, Tenderness Cardiovascular: Yes: Regular Rate and Rhythm JVD: No Heart Sounds: Yes: S1, S2. No: Gallop Murmur: No: Systolic Murmur, Diastolic Murmur Extremities: No: Cold, Cyanosis Edema: No Peripheral Pulses: 2+ Left Carotid, 2+ Right Carotid, 2+ Left Doralis Pedis, 2+ Right Dorsalis Pedis Integumentary: No: Jaundice Neurological: Yes: Alert, Oriented (x3) Psychiatric: No: Agitated Current Medications Acetaminophen (Tylenol -) 650 mg PO Q4H PRN PRN Reason: PAIN LEVEL 6-10 Last Admin: 08/20/18 14:56 Dose: 650 mg Carvedilol (Coreg -) 25 mg PO BID [facility] Last Admin: 08/21/18 11:39 Dose: 25 mg Diazepam (Valium -) 5 mg PO Q8H PRN PRN Reason: WITHDRAWAL(CONT SUBST) Last Admin: 08/20/18 23:30 Dose: 5 mg Docusate Sodium (Colace -) 100 mg PO BID PRN PRN Reason: CONSTIPATION Last Admin: 08/20/18 22:08 Dose: 100 mg Ergocalciferol (Drisdol -) 50,000 unit PO Tu@1000 [facility] Last Admin: 08/15/18 10:01 Dose: 50,000 unit Gabapentin (Neurontin -) 300 mg PO TID [facility] Last Admin: 08/21/18 05:39 Dose: 300 mg Insulin Aspart (Novolog Vial Sliding Scale -) 1 vial SQ TIDAC [facility]; Protocol Last Admin: 08/21/18 11:43 Dose: 4 units Lisinopril (Prinivil) 2.5 mg PO BID [facility] Last Admin: 08/21/18 11:39 Dose: 2.5 mg Melatonin (Melatonin) 5 mg PO HS PRN PRN Reason: INSOMNIA Multivitamins/Minerals/Vitamin C (Tab-A-Vit -) 1 tab PO DAILY [facility] Last Admin: 08/21/18 11:39 Dose: 1 tab Oxycodone HCl (Roxicodone -) 10 mg PO Q4H PRN PRN Reason: PAIN LEVEL 6-10 Last Admin: 08/21/18 11:38 Dose: 10 mg Rivaroxaban (Xarelto -) 20 mg PO DAILY [facility] Last Admin: 08/19/18 13:38 Dose: Not Given Torsemide (Demadex -) 50 mg PO DAILY [facility] Last Admin: 08/20/18 09:33 Dose: 50 mg Zolpidem Tartrate (Ambien -) 5 mg PO HS PRN PRN Reason: INSOMNIA Last Admin: 08/20/18 22:08 Dose: 5 mg echo here 06/2018: nl lv, rv tds, mild mr, nl rvsp echo (office) 03/25: 1. The left ventricular size is normal. 2. Overall left ventricular systolic function is normal with, an EF between 55 - 60 %. Watts's EF calculation (apical 4 chamber) = 62%. 3. LA pressure is probably elevated. 4. The right ventricle is normal in size and function. 5. Left atrium is normal size by volume. 6. The mitral valve leaflets are mildly thickened. Posterior leaflet is tethered in motion. 7. Moderate mitral regurgitation is present (central jet). No systolic flow reversal present in pulmonary vein. 8. Unable to estimate RVSP due to inadequate TR jet spectral doppler profile; it is at least 36 mmHg (i.e. mildly elevated). echo here 06/01/17: nl lv, nl rv size, mild fernando, sev mr, mild tr, nl rvsp echo in office 05/09/2017: mild-mod lve, lvef 30-35%, global hk, nl rv size, mild dec rv fcn, mild lae, mod-sev mr mibi 05/2014: no ischemia, mildly reduced lvef cath 2005: normal cors a/p: 71 f hx multiple PEs/DVTs s/p ivc filter and on xarelto dm, hld, htn, sys chf, here with back/leg pain, found with para-spinal fluid collection chronic mixed systolic/diastolic HF: -nonisch CMP dx'd 2014 (L/RHC moderately elevated wedge (25) and corresponding elevation in PAPs (50/25); NORMAL CORONARIES -severely reduced cardiac index on that RHC -more recent echo as outpt shows normalization in EF, ? related to improved med compliance, ? wt loss-->NICHOLE improved (untreated before). -echo here 06/25 unremarkable, had volume overload at that time related to hypotension requiring diuretics held, and IVF treatment--sent out on torsemide 20 qd, DORENE held for low bp. -then again with PNA 07/25 causing chf exacerbation--sent out on torsemide 50 qd , carvedilol 25 bid, lisinopril 5 qd -BNP 2K (baseline range 2-3K) -no volume on exam and cxr clear. cont torsemide 50 po qd for now, low threshold to incr to 100 qd if sob worsens. -tolerate sbp > 90 here -despite EF normalized, prefer to maintain BB and DORENE regimen, as these meds may have been reason for improvement in systolic fxn. -cont carvedilol 25 bid, lisinopril 2.5 mg BID s/p spine surgery, back pain, fluid collection: -per ID, neurosurgery, hospitalist -plan for back injection on Tuesday Atrial fibrillation - new diagnosis when here 07/25 with PNA - carvedilol dose (previously lowered due to low bp's) increased to 25 mg BID for rapid HRs--improved - in sinus on exam, HR good--cont same bb - on xarelto for DVT/PE as well -holding xarelto currently for SI joint injection, restart when able following procedure HTN: - stable, controlled without lows at the moment - same meds h/o VTEs (DVTs and PEs): -s/p IVC filter -on lifelong AC per prior plan (felt to be hypercoagulable by heme) - on xarelto NICHOLE: -not compliant with cpap
--- NOTE | 2018-08-21 17:09 | PN ---
Teaching Attending Note Name of Resident: Jeffery Burrell ATTENDING PHYSICIAN STATEMENT I saw and evaluated the patient. I reviewed the resident's note and discussed the case with the resident. I agree with the resident's findings and plan as documented. SUBJECTIVE: Still complains of ongoing back pain. No bladder/bowel dysfunction. OBJECTIVE: Afebrile, Hemodynamically Stable. Last Vital Signs Temp Pulse Resp BP Pulse Ox 97.8 F 65 18 121/50 L 97 08/21/18 15:10 08/21/18 15:10 08/21/18 15:10 08/21/18 15:10 08/20/18 21:00 HEENT - Atraumatic, Normocephalic. Heart - S1, S2, RRR Lungs - clear to auscultation Abdomen - Soft, non-tender. Bowel Sounds normal. Extremities - no calf tenderness Neuro - general decrease in power LEs sec to pain Laboratory Results - last 24 hr 08/17/18 08/20/18 08/21/18 06:30 17:28 05:28 WBC RBC Hgb Hct MCV MCH MCHC RDW Plt Count MPV Absolute Neuts (auto) Neutrophils % Lymphocytes % Monocytes % Eosinophils % Basophils % Nucleated RBC % PT with INR INR Sodium Potassium Chloride Carbon Dioxide Anion Gap BUN Creatinine Creat Clearance w eGFR POC Glucometer 193 135 Random Glucose Calcium Phosphorus Magnesium Total Bilirubin AST ALT Alkaline Phosphatase Total Protein Albumin IgG 1090 IgA 143 IgM 84 08/21/18 08/21/18 08/21/18 06:00 06:00 11:42 WBC 6.5 RBC 3.72 Hgb 9.6 L Hct 31.8 L MCV 85.5 MCH 25.9 MCHC 30.3 L RDW 16.9 H Plt Count 287 MPV 8.0 Absolute Neuts (auto) 3.5 Neutrophils % 54.4 Lymphocytes % 29.0 Monocytes % 11.9 H Eosinophils % 3.7 Basophils % 1.0 Nucleated RBC % 0 PT with INR INR Sodium 139 Potassium 5.1 Chloride 105 Carbon Dioxide 27 Anion Gap 7 L BUN 26 H Creatinine 0.8 Creat Clearance w eGFR > 60 POC Glucometer 267 Random Glucose 160 H Calcium 8.8 Phosphorus 3.4 Magnesium 2.5 H Total Bilirubin 0.3 AST 15 ALT 10 L Alkaline Phosphatase 137 H Total Protein 6.2 L Albumin 2.4 L IgG IgA IgM 08/21/18 11:45 WBC RBC Hgb Hct MCV MCH MCHC RDW Plt Count MPV Absolute Neuts (auto) Neutrophils % Lymphocytes % Monocytes % Eosinophils % Basophils % Nucleated RBC % PT with INR 14.80 H INR 1.25 H Sodium Potassium Chloride Carbon Dioxide Anion Gap BUN Creatinine Creat Clearance w eGFR POC Glucometer Random Glucose Calcium Phosphorus Magnesium Total Bilirubin AST ALT Alkaline Phosphatase Total Protein Albumin IgG IgA IgM Current Medications Generic Name Dose Route Start Last Admin Trade Name Freq PRN Reason Stop Dose Admin Acetaminophen 650 mg 08/15/18 11:26 08/20/18 14:56 Tylenol - PO 650 mg Q4H PRN Administration PAIN LEVEL 6-10 Carvedilol 25 mg 08/13/18 22:00 08/21/18 11:39 Coreg - PO 25 mg BID LISA Administration Diazepam 5 mg 08/14/18 17:32 08/20/18 23:30 Valium - PO 5 mg Q8H PRN Administration WITHDRAWAL(CONT SUBST) Docusate Sodium 100 mg 08/13/18 15:11 08/20/18 22:08 Colace - PO 100 mg BID PRN Administration CONSTIPATION Ergocalciferol 50,000 unit 08/15/18 10:00 08/15/18 10:01 Drisdol - PO 50,000 unit Tu@1000 LISA Administration Gabapentin 300 mg 08/13/18 22:00 08/21/18 15:56 Neurontin - PO 300 mg TID LISA Administration Insulin Aspart 1 vial 08/13/18 16:30 08/21/18 11:43 Novolog Vial Sliding Scale - SQ 4 units TIDAC LISA Administration Protocol Lisinopril 2.5 mg 08/15/18 22:00 08/21/18 11:39 Prinivil PO 2.5 mg BID LISA Administration Melatonin 5 mg 08/15/18 17:49 Melatonin PO HS PRN INSOMNIA Multivitamins/Minerals/Vitamin C 1 tab 08/15/18 10:00 08/21/18 11:39 Tab-A-Vit - PO 1 tab DAILY LISA Administration Oxycodone HCl 10 mg 08/15/18 11:27 08/21/18 15:56 Roxicodone - PO 10 mg Q4H PRN Administration PAIN LEVEL 6-10 Rivaroxaban 20 mg 08/14/18 10:00 08/19/18 13:38 Xarelto - PO Not Given DAILY [facility] Torsemide 50 mg 08/14/18 16:00 08/20/18 09:33 Demadex - PO 50 mg DAILY LISA Administration Zolpidem Tartrate 5 mg 08/13/18 15:11 08/20/18 22:08 Ambien - PO 5 mg HS PRN Administration INSOMNIA ASSESSMENT AND PLAN: 73 year old female with history of HTN, DM 2, chronic diastolic heart failure, Obesity s/p lap band, OA s/p left TKR complicated by Staph infection, chronic low back pain, s/p L4/5 laminectomy, L2-S1 seroma s/p drainage, Hx PE/DVT s/p IVC filter who presented to the ED with worsening back pain radiating down both legs. 1. Intractable back pain, DDD, history of L4-5 laminectomy, drainage of L2-S1 seroma CT L-spine and pelvis shows fluid collection L3-S2 extending to posterior epidural space, with findings suspicious for gas forming bacteria As per ID and ortho, no evidence of infection Ortho recommending SI joint injection Xarelto on hold for procedure, planned for 08/23/18 Unable apparently to discharge home prior to IR guided injection due to intractable pain and fall risk. Continue Diazepam, Oxycodone, Neurontin and PT. 2. HTN - Continue Coreg, Lisinopril, Demadex 3. Atrial fibrillation, paroxysmal In SR - Continue Coreg. Xarelto held for SI joint injection 4. Chronic systolic and diastolic heart failure Stable, no evidence of decompensation. Continue Coreg, Lisinopril, Demadex 5. Mitral regurgitation - stable. 6. DM 2 - Continue Novolog sliding scale 7. History of DVT/PE Xarelto being held for SI joint injection Has IVC filter in place.
--- NOTE | 2018-08-21 18:50 | PATH ---
Surgical Pathology Report Patient Name: SHERI PADILLA [facility]. Rec. #: [id number] /Age/Gender: 1945 (Age: 73) / F Account: [id number] Location: [address] [place] [address] Taken: 08/17/2018 Received: 08/18/2018 Reported: 08/21/2018 Physicians: Hien Marinelli M.D. Specimen(s) Received 2 GREEN AND 2 PURPLE TOP TUBES Clinical History Anemia, rule out MDS Final Diagnosis COMPREHENSIVE FLOW PANEL performed and interpreted at [facility], [place], [place] ([id number]) shows the following: INTERPRETATION: No atypical flow cytometric findings seen. MYELODYSPLASIA FISH PANEL performed and interpreted at [facility], [place], [place] ([id number]) shows the following: INTERPRETATION: No evidence of deletion 5q or monosomy 5 is present. No evidence of deletion 7q or monosomy 7 is present. No evidence of trisomy 8 (+8) is present. No evidence of deletion 13q14.2 is present. No evidence of rearrangement of 11q23. No evidence of a deletion of the p53 (17p13) locus. No evidence of deletion 20q12 is present See [facility] report ([id number] and [id number]) for additional details. Electronically Signed Florence Giordano M.D. Gross Description Received are 2 green top tubes and 2 purple top tubes of blood which are sent to [facility]. /08/18/201808/18/2018
[2018-08-21] MEDS: ACETAMINOPHEN 325 MG TABLET (FP) PO PRN (21:25)
[2018-08-21] MEDS: diazePAM 5 MG TABLET PO PRN (21:26)
[2018-08-21] MEDS: ZOLPIDEM TARTRATE 5 MG TABLET PO PRN (22:57)
[2018-08-22] MEDS: ACETAMINOPHEN 325 MG TABLET (FP) PO PRN ×5 (01:35→23:30)
[2018-08-22] MEDS: oxyCODONE HCL 5 MG TABLET PO PRN ×5 (01:35→23:29)
[2018-08-22] MEDS: GABAPENTIN 300 MG CAPSULE (FP) PO SCH ×3 (06:13→21:49)
[2018-08-22] MEDS: INSULIN SLIDING SCALE (NOVOLOG) 1 VIAL SQ SCH ×3 (06:16→17:48)
[2018-08-22 08:00] LABS: HEMATOCRIT 28.3 % (32.4-45.2); HEMOGLOBIN 9.4 GM/dL (10.7-15.3); MCH 27.9 pg (25.7-33.7); MCHC 33.2 g/dl (32.0-36.0); MEAN PLT VOLUME 7.9 fl (7.5-11.1); PLATELET COUNT 301 K/MM3 (134-434); RBC 3.37 M/mm3 (3.60-5.2); RDW 16.7 % (11.6-15.6); WHITE BLOOD COUNT 5.6 K/mm3 (4.0-10.0)
[2018-08-22 08:24] LABS: ANION GAP 6 MMOL/L (8-16); BLOOD UREA NITROGEN 22 mg/dL (7-18); CALCIUM 8.5 mg/dL (8.5-10.1); CHLORIDE 105 mmol/L (98-107); CO2 29 mmol/L (21-32); CREATININE 0.8 mg/dL (0.55-1.3); GLUCOSE,RANDOM 156 mg/dL (74-106); MAGNESIUM 2.6 mg/dL (1.8-2.4); PHOSPHOROUS 3.9 mg/dL (2.5-4.9); POTASSIUM 4.6 mmol/L (3.5-5.1); SODIUM 139 mmol/L (136-145)
[2018-08-22] MEDS ORDERED: PT OWN MED DRAWER 7, Y5N ONE (09:51)
[2018-08-22] MEDS: LISINOPRIL 5 MG TABLET (FP) PO SCH ×2 (10:08→21:49)
[2018-08-22] MEDS: diazePAM 5 MG TABLET PO PRN (10:08)
[2018-08-22] MEDS: MULTIVITAMINS (DAILY MVI) TABLET (FP) PO SCH (10:08)
[2018-08-22] MEDS: TORSEMIDE 100 MG TABLET PO SCH (10:09)
[2018-08-22] MEDS: CARVEDILOL 25 MG TABLET (FP) PO SCH ×2 (10:09→21:49)
[2018-08-22] MEDS: ERGOCALCIFEROL (VITAMIN D2) 50,000 UNIT CAPSULE (FP) PO SCH (10:10)
--- NOTE | 2018-08-22 12:31 | PN ---
Progress Note (short form) - Note Progress Note: Progress Note: s: no cp sob palps dizzy o: Vital Signs Period Temp Pulse Resp BP Sys/Marcelo Pulse Ox Last 24 Hr 97.5 F-98.7 F 61-72 18-18 117-126/50-85 95-97 Constitutional: Yes: Well Nourished, No Distress Eyes: No: Sclera Icterus Respiratory: Yes: CTA Bilaterally. No: Accessory Muscle Use, Rales, Wheezes Gastrointestinal: Yes: Normal Bowel Sounds. No: Distention, Hepatomegaly, Palpable Mass, Tenderness Cardiovascular: Yes: Regular Rate and Rhythm JVD: No Heart Sounds: Yes: S1, S2. No: Gallop Murmur: No: Systolic Murmur, Diastolic Murmur Extremities: No: Cold, Cyanosis Edema: No Peripheral Pulses: 2+ Left Carotid, 2+ Right Carotid, 2+ Left Doralis Pedis, 2+ Right Dorsalis Pedis Integumentary: No: Jaundice Neurological: Yes: Alert, Oriented (x3) Psychiatric: No: Agitated Current Medications Acetaminophen (Tylenol -) 650 mg PO Q4H PRN PRN Reason: PAIN LEVEL 6-10 Last Admin: 08/22/18 07:58 Dose: 650 mg Carvedilol (Coreg -) 25 mg PO BID [facility] Last Admin: 08/22/18 10:09 Dose: 25 mg Diazepam (Valium -) 5 mg PO Q8H PRN PRN Reason: WITHDRAWAL(CONT SUBST) Last Admin: 08/22/18 10:08 Dose: 5 mg Docusate Sodium (Colace -) 100 mg PO BID PRN PRN Reason: CONSTIPATION Last Admin: 08/20/18 22:08 Dose: 100 mg Ergocalciferol (Drisdol -) 50,000 unit PO Tu@1000 [facility] Last Admin: 08/22/18 10:10 Dose: 50,000 unit Gabapentin (Neurontin -) 300 mg PO TID [facility] Last Admin: 08/22/18 06:13 Dose: 300 mg Insulin Aspart (Novolog Vial Sliding Scale -) 1 vial SQ TIDAC [facility]; Protocol Last Admin: 08/22/18 12:04 Dose: 2 units Lisinopril (Prinivil) 2.5 mg PO BID [facility] Last Admin: 08/22/18 10:08 Dose: 2.5 mg Melatonin (Melatonin) 5 mg PO HS PRN PRN Reason: INSOMNIA Multivitamins/Minerals/Vitamin C (Tab-A-Vit -) 1 tab PO DAILY [facility] Last Admin: 08/22/18 10:08 Dose: 1 tab Oxycodone HCl (Roxicodone -) 10 mg PO Q4H PRN PRN Reason: PAIN LEVEL 6-10 Last Admin: 08/22/18 07:58 Dose: 10 mg Rivaroxaban (Xarelto -) 20 mg PO DAILY [facility] Last Admin: 08/19/18 13:38 Dose: Not Given Torsemide (Demadex -) 50 mg PO DAILY [facility] Last Admin: 08/22/18 10:09 Dose: 50 mg Zolpidem Tartrate (Ambien -) 5 mg PO HS PRN PRN Reason: INSOMNIA Last Admin: 08/21/18 22:57 Dose: 5 mg echo here 06/2018: nl lv, rv tds, mild mr, nl rvsp echo (office) 03/25: 1. The left ventricular size is normal. 2. Overall left ventricular systolic function is normal with, an EF between 55 - 60 %. Watts's EF calculation (apical 4 chamber) = 62%. 3. LA pressure is probably elevated. 4. The right ventricle is normal in size and function. 5. Left atrium is normal size by volume. 6. The mitral valve leaflets are mildly thickened. Posterior leaflet is tethered in motion. 7. Moderate mitral regurgitation is present (central jet). No systolic flow reversal present in pulmonary vein. 8. Unable to estimate RVSP due to inadequate TR jet spectral doppler profile; it is at least 36 mmHg (i.e. mildly elevated). echo here 06/01/17: nl lv, nl rv size, mild fernando, sev mr, mild tr, nl rvsp echo in office 05/09/2017: mild-mod lve, lvef 30-35%, global hk, nl rv size, mild dec rv fcn, mild lae, mod-sev mr mibi 05/2014: no ischemia, mildly reduced lvef cath 2005: normal cors a/p: 71 f hx multiple PEs/DVTs s/p ivc filter and on xarelto dm, hld, htn, sys chf, here with back/leg pain, found with para-spinal fluid collection chronic mixed systolic/diastolic HF: -nonisch CMP dx'd 2014 (L/RHC moderately elevated wedge (25) and corresponding elevation in PAPs (50/25); NORMAL CORONARIES -severely reduced cardiac index on that RHC -more recent echo as outpt shows normalization in EF, ? related to improved med compliance, ? wt loss-->NICHOLE improved (untreated before). -echo here 06/25 unremarkable, had volume overload at that time related to hypotension requiring diuretics held, and IVF treatment--sent out on torsemide 20 qd, DORENE held for low bp. -then again with PNA 07/25 causing chf exacerbation--sent out on torsemide 50 qd , carvedilol 25 bid, lisinopril 5 qd -BNP 2K (baseline range 2-3K), no sob -tolerate sbp > 90 here -despite EF normalized, prefer to maintain BB and DORENE regimen, as these meds may have been reason for improvement in systolic fxn. -cont carvedilol 25 bid, lisinopril 2.5 mg BID, torsemide 50 mg daily s/p spine surgery, back pain, fluid collection: -per ID, neurosurgery, hospitalist -plan for back injection tomorrow Atrial fibrillation - new diagnosis when here 07/25 with PNA - carvedilol dose (previously lowered due to low bp's) increased to 25 mg BID for rapid HRs--improved - in sinus on exam, HR good--cont same bb - on xarelto for DVT/PE as well -holding xarelto currently for SI joint injection, restart when able following procedure HTN: - stable, controlled without lows at the moment - same meds h/o VTEs (DVTs and PEs): -s/p IVC filter -on lifelong AC per prior plan (felt to be hypercoagulable by heme) - on xarelto NICHOLE: -not compliant with cpap
[2018-08-22] MEDS: DOCUSATE SODIUM 100 MG CAPSULE (FP) PO PRN (13:05)
--- NOTE | 2018-08-22 14:26 | PN ---
Teaching Attending Note Name of Resident: Jeffery Burrell ATTENDING PHYSICIAN STATEMENT I saw and evaluated the patient. I reviewed the resident's note and discussed the case with the resident. I agree with the resident's findings and plan as documented. SUBJECTIVE: Still complains of ongoing back pain. No bladder/bowel dysfunction. OBJECTIVE: Afebrile, Hemodynamically Stable. Last Vital Signs Temp Pulse Resp BP Pulse Ox 97.3 F L 67 18 127/93 95 08/22/18 13:03 08/22/18 13:03 08/22/18 13:03 08/22/18 13:03 08/22/18 09:00 HEENT - Atraumatic, Normocephalic. Heart - S1, S2, RRR Lungs - clear to auscultation Abdomen - High BMI. Soft, non-tender. Bowel Sounds normal. Extremities - no calf tenderness Neuro - general decrease in power LEs sec to pain Laboratory Results - last 24 hr 08/21/18 08/21/18 08/22/18 11:45 19:03 06:15 WBC RBC Hgb Hct MCV MCH MCHC RDW Plt Count MPV PT with INR 14.80 H INR 1.25 H Sodium Potassium Chloride Carbon Dioxide Anion Gap BUN Creatinine Creat Clearance w eGFR POC Glucometer 208 182 Random Glucose Calcium Phosphorus Magnesium 08/22/18 08/22/18 08/22/18 06:35 06:35 12:03 WBC 5.6 RBC 3.37 L Hgb 9.4 L Hct 28.3 L MCV 84.0 MCH 27.9 MCHC 33.2 RDW 16.7 H Plt Count 301 MPV 7.9 PT with INR INR Sodium 139 Potassium 4.6 Chloride 105 Carbon Dioxide 29 Anion Gap 6 L BUN 22 H Creatinine 0.8 Creat Clearance w eGFR > 60 POC Glucometer 242 Random Glucose 156 H Calcium 8.5 Phosphorus 3.9 Magnesium 2.6 H Current Medications Generic Name Dose Route Start Last Admin Trade Name Freq PRN Reason Stop Dose Admin Acetaminophen 650 mg 08/15/18 11:26 08/22/18 13:04 Tylenol - PO 650 mg Q4H PRN Administration PAIN LEVEL 6-10 Carvedilol 25 mg 08/13/18 22:00 08/22/18 10:09 Coreg - PO 25 mg BID LISA Administration Diazepam 5 mg 08/14/18 17:32 08/22/18 10:08 Valium - PO 5 mg Q8H PRN Administration WITHDRAWAL(CONT SUBST) Docusate Sodium 100 mg 08/13/18 15:11 08/22/18 13:05 Colace - PO 100 mg BID PRN Administration CONSTIPATION Ergocalciferol 50,000 unit 08/15/18 10:00 08/22/18 10:10 Drisdol - PO 50,000 unit Tu@1000 LISA Administration Gabapentin 300 mg 08/13/18 22:00 08/22/18 13:04 Neurontin - PO 300 mg TID LISA Administration Insulin Aspart 1 vial 08/13/18 16:30 08/22/18 12:04 Novolog Vial Sliding Scale - SQ 2 units TIDAC LISA Administration Protocol Lisinopril 2.5 mg 08/15/18 22:00 08/22/18 10:08 Prinivil PO 2.5 mg BID LISA Administration Melatonin 5 mg 08/15/18 17:49 Melatonin PO HS PRN INSOMNIA Multivitamins/Minerals/Vitamin C 1 tab 08/15/18 10:00 08/22/18 10:08 Tab-A-Vit - PO 1 tab DAILY LISA Administration Oxycodone HCl 10 mg 08/15/18 11:27 08/22/18 13:05 Roxicodone - PO 10 mg Q4H PRN Administration PAIN LEVEL 6-10 Rivaroxaban 20 mg 08/14/18 10:00 08/19/18 13:38 Xarelto - PO Not Given DAILY LISA Torsemide 50 mg 08/14/18 16:00 08/22/18 10:09 Demadex - PO 50 mg DAILY LISA Administration Zolpidem Tartrate 5 mg 08/13/18 15:11 08/21/18 22:57 Ambien - PO 5 mg HS PRN Administration INSOMNIA ASSESSMENT AND PLAN: 73 year old female with history of HTN, DM 2, chronic diastolic heart failure, Obesity s/p lap band, OA s/p left TKR complicated by Staph infection, chronic low back pain, s/p L4/5 laminectomy, L2-S1 seroma s/p drainage, Hx PE/DVT s/p IVC filter who presented to the ED with worsening back pain radiating down both legs. 1. Intractable back pain, DDD with radiculopathy, history of L4-5 laminectomy, drainage of L2-S1 seroma CT L-spine and pelvis shows fluid collection L3-S2 extending to posterior epidural space, with findings suspicious for gas forming bacteria As per ID and ortho, no evidence of infection Ortho recommending SI joint injection - scheduled 08/23/18 Xarelto on hold for procedure Unable apparently to discharge home prior to IR guided injection due to intractable pain and fall risk. Continue Diazepam, Oxycodone, Neurontin and PT. 2. HTN - Continue Coreg, Lisinopril, Demadex 3. Atrial fibrillation, paroxysmal In SR - Continue Coreg. Xarelto held for SI joint injection 4. Chronic systolic and diastolic heart failure Stable, no evidence of decompensation. Continue Coreg, Lisinopril, Demadex 5. Mitral regurgitation - stable. 6. DM 2 - Continue Novolog sliding scale 7. History of DVT/PE s/p IVC filter Xarelto being held for SI joint injection
--- NOTE | 2018-08-22 17:25 | PN ---
Physical Exam: SUBJECTIVE: Patient seen and examined this AM. She states her pain is similar, though worse in the mornings when she is stiff. OBJECTIVE: Vital Signs Period Temp Pulse Resp BP Sys/Marcelo Pulse Ox Last 24 Hr 97.3 F-98.7 F 61-72 18-18 117-127/52-93 95-97 GENERAL: A&O, minimal distress HEAD: Normocephalic, atraumatic. EYES: PERRL, no scleral icterus NECK: supple without lymphadenopathy LUNGS: CTA b/l, no crackles or wheezes HEART: Regular rate and rhythm, normal S1 and S2 without murmur ABDOMEN: Obese, Soft, nontender to palpation, normoactive bowel sounds MUSCULOSKELETAL: No bony deformities, some tenderness on palpation of lower back NEUROLOGICAL: Cranial nerves II-XII grossly intact. Normal speech. Laboratory Results - last 24 hr 08/21/18 08/22/18 08/22/18 19:03 06:15 06:35 WBC 5.6 RBC 3.37 L Hgb 9.4 L Hct 28.3 L MCV 84.0 MCH 27.9 MCHC 33.2 RDW 16.7 H Plt Count 301 MPV 7.9 Sodium Potassium Chloride Carbon Dioxide Anion Gap BUN Creatinine Creat Clearance w eGFR POC Glucometer 208 182 Random Glucose Calcium Phosphorus Magnesium 08/22/18 08/22/18 06:35 12:03 WBC RBC Hgb Hct MCV MCH MCHC RDW Plt Count MPV Sodium 139 Potassium 4.6 Chloride 105 Carbon Dioxide 29 Anion Gap 6 L BUN 22 H Creatinine 0.8 Creat Clearance w eGFR > 60 POC Glucometer 242 Random Glucose 156 H Calcium 8.5 Phosphorus 3.9 Magnesium 2.6 H Active Medications Generic Name Dose Route Start Last Admin Trade Name Freq PRN Reason Stop Dose Admin Acetaminophen 650 mg 08/15/18 11:26 08/22/18 13:04 Tylenol - PO 650 mg Q4H PRN Administration PAIN LEVEL 6-10 Carvedilol 25 mg 08/13/18 22:00 08/22/18 10:09 Coreg - PO 25 mg BID LISA Administration Diazepam 5 mg 08/14/18 17:32 08/22/18 10:08 Valium - PO 5 mg Q8H PRN Administration WITHDRAWAL(CONT SUBST) Docusate Sodium 100 mg 08/13/18 15:11 08/22/18 13:05 Colace - PO 100 mg BID PRN Administration CONSTIPATION Ergocalciferol 50,000 unit 08/15/18 10:00 08/22/18 10:10 Drisdol - PO 50,000 unit Tu@1000 LISA Administration Gabapentin 300 mg 08/13/18 22:00 08/22/18 13:04 Neurontin - PO 300 mg TID LISA Administration Insulin Aspart 1 vial 08/13/18 16:30 08/22/18 12:04 Novolog Vial Sliding Scale - SQ 2 units TIDAC LISA Administration Protocol Lisinopril 2.5 mg 08/15/18 22:00 08/22/18 10:08 Prinivil PO 2.5 mg BID LISA Administration Melatonin 5 mg 08/15/18 17:49 Melatonin PO HS PRN INSOMNIA Multivitamins/Minerals/Vitamin C 1 tab 08/15/18 10:00 08/22/18 10:08 Tab-A-Vit - PO 1 tab DAILY LISA Administration Oxycodone HCl 10 mg 08/15/18 11:27 08/22/18 13:05 Roxicodone - PO 10 mg Q4H PRN Administration PAIN LEVEL 6-10 Rivaroxaban 20 mg 08/14/18 10:00 08/19/18 13:38 Xarelto - PO Not Given DAILY LISA Torsemide 50 mg 08/14/18 16:00 08/22/18 10:09 Demadex - PO 50 mg DAILY LISA Administration Zolpidem Tartrate 5 mg 08/13/18 15:11 08/21/18 22:57 Ambien - PO 5 mg HS PRN Administration INSOMNIA ASSESSMENT/PLAN: 73 y/o F with h/o HTN, NIDDM, HFpEF (06/19/18 EF ~50%), intractable lower back pain s/p L4-L5 s/p laminectomy, L2-S1 seroma s/p drainage, 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 Lower Back Pain -s/p L4-L5 laminectomy, seroma with IR drainage -Pain control with Percocet 10 Q4, Valium 5 mg PO Q8 -Neurontin 300 mg PO BID -CT noted with interval air pockets, pelvic CT with air and fluid collection noted -Case discussed with Dr. Borjas, CT findings are likely myxomatous collection routinely seen in post op spine patients -As per Ortho: CT guided marcaine injection into left SI joint, could require repeat lumbar/sacral exlporation in OR -Seen by Dr. Borjas who told the pt Tuesday that she should remain in hospital until after procedure (Tuesday), hold xarelto until after procedure HFpEF -EF 50% in 06/19/18 -Cardiology consult appreciated -Prinivil started, will monitor b.p and hold if systolic below 100 NIDDM -BGMs ACHS -Insulin sliding scale for glycemic control Hx DVT/PE -On Xarelto, with IVC filter ->10 yrs ago DVT Prophylaxis -Xarelto 20 mg PO Daily, HOLD until following joint injection FEN -Fluids: none -Electrolytes: No electrolyte abnormalities, BMP in AM -Nutrition: Na controlled diet Disposition Med/Surg, D/C following CT guided injection Visit type - Emergency Visit Emergency Visit: Yes ED Registration Date: 08/13/18 Care time: The patient presented to the Emergency Department on the above date and was hospitalized for further evaluation of their emergent condition. - New Patient This patient is new to me today: No - Critical Care Critical Care patient: No
[2018-08-23] MEDS: diazePAM 5 MG TABLET PO PRN ×2 (01:37→10:26)
[2018-08-23] MEDS: oxyCODONE HCL 5 MG TABLET PO PRN ×2 (05:29→12:33)
[2018-08-23] MEDS: GABAPENTIN 300 MG CAPSULE (FP) PO SCH ×2 (05:30→15:06)
[2018-08-23] MEDS: ACETAMINOPHEN 325 MG TABLET (FP) PO PRN ×2 (05:30→12:32)
[2018-08-23] MEDS: INSULIN SLIDING SCALE (NOVOLOG) 1 VIAL SQ SCH ×2 (06:43→12:28)
[2018-08-23] MEDS ORDERED: PT OWN MED DRAWER 7, Y5N ONE (10:11)
[2018-08-23] MEDS: LISINOPRIL 5 MG TABLET (FP) PO SCH (10:25)
[2018-08-23] MEDS: CARVEDILOL 25 MG TABLET (FP) PO SCH (10:25)
[2018-08-23] MEDS: MULTIVITAMINS (DAILY MVI) TABLET (FP) PO SCH (10:25)
[2018-08-23] MEDS: DOCUSATE SODIUM 100 MG CAPSULE (FP) PO PRN (10:26)
[2018-08-23] MEDS: TORSEMIDE 100 MG TABLET PO SCH ×2 (10:27→12:29)
[2018-08-23] MEDS ORDERED: BUPIVACAINE HCL/PF 0.5% (5MG/ML) 10 ML VIAL ONE (11:30)
--- NOTE | 2018-08-23 13:57 | PN ---
Teaching Attending Note Name of Resident: Jeffery Burrell ATTENDING PHYSICIAN STATEMENT I saw and evaluated the patient. I reviewed the resident's note and discussed the case with the resident. I agree with the resident's findings and plan as documented. SUBJECTIVE: Ongoing back pain, radiating down legs. No bladder/bowel dysfunction. OBJECTIVE: Afebrile, Hemodynamically Stable. Last Vital Signs Temp Pulse Resp BP Pulse Ox 97.9 F 70 20 114/54 L 91 L 08/23/18 09:14 08/23/18 09:14 08/23/18 09:14 08/23/18 09:14 08/23/18 10:00 Heart - S1, S2, RRR Lungs - clear to auscultation Abdomen - High BMI. Soft, non-tender. Bowel Sounds normal. Extremities - no calf tenderness Neuro - general decrease in power LEs sec to pain Current Medications Generic Name Dose Route Start Last Admin Trade Name Freq PRN Reason Stop Dose Admin Acetaminophen 650 mg 08/15/18 11:26 08/23/18 12:32 Tylenol - PO 650 mg Q4H PRN Administration PAIN LEVEL 6-10 Carvedilol 25 mg 08/13/18 22:00 08/23/18 10:25 Coreg - PO 25 mg BID LISA Administration Diazepam 5 mg 08/14/18 17:32 08/23/18 10:26 Valium - PO 5 mg Q8H PRN Administration WITHDRAWAL(CONT SUBST) Docusate Sodium 100 mg 08/13/18 15:11 08/23/18 10:26 Colace - PO 100 mg BID PRN Administration CONSTIPATION Ergocalciferol 50,000 unit 08/15/18 10:00 08/22/18 10:10 Drisdol - PO 50,000 unit Tu@1000 LISA Administration Gabapentin 300 mg 08/13/18 22:00 08/23/18 05:30 Neurontin - PO 300 mg TID LISA Administration Insulin Aspart 1 vial 08/13/18 16:30 08/23/18 12:28 Novolog Vial Sliding Scale - SQ 6 units TIDAC LISA Administration Protocol Lisinopril 2.5 mg 08/15/18 22:00 08/23/18 10:25 Prinivil PO 2.5 mg BID LISA Administration Melatonin 5 mg 08/15/18 17:49 Melatonin PO HS PRN INSOMNIA Multivitamins/Minerals/Vitamin C 1 tab 08/15/18 10:00 08/23/18 10:25 Tab-A-Vit - PO 1 tab DAILY LISA Administration Oxycodone HCl 10 mg 08/15/18 11:27 08/23/18 12:33 Roxicodone - PO 10 mg Q4H PRN Administration PAIN LEVEL 6-10 Rivaroxaban 20 mg 08/14/18 10:00 08/19/18 13:38 Xarelto - PO Not Given DAILY LISA Torsemide 50 mg 08/14/18 16:00 08/23/18 12:29 Demadex - PO Not Given DAILY LISA Zolpidem Tartrate 5 mg 08/13/18 15:11 08/21/18 22:57 Ambien - PO 5 mg HS PRN Administration INSOMNIA ASSESSMENT AND PLAN: 73 year old female with history of HTN, DM 2, chronic diastolic heart failure, Obesity s/p lap band, OA s/p left TKR complicated by Staph infection, chronic low back pain, s/p L4/5 laminectomy, L2-S1 seroma s/p drainage, Hx PE/DVT s/p IVC filter who presented to the ED with worsening back pain radiating down both legs. 1. Intractable back pain, DDD with radiculopathy, history of L4-5 laminectomy, s /p drainage of L2-S1 seroma CT L-spine and pelvis shows fluid collection L3-S2 extending to posterior epidural space, with findings suspicious for gas forming bacteria As per ID and ortho, no evidence of infection Ortho recommending SI joint injection - scheduled 08/23/18 Xarelto on hold for procedure Medically stable for discharge after IR guided spinal injection. Xarelto to be resumed on discharge 24 hrs after injection. Continue Diazepam, Oxycodone, Neurontin and PT. 2. HTN - Continue Coreg, Lisinopril, Demadex 3. Atrial fibrillation, paroxysmal In SR - Continue Coreg. Xarelto held for SI joint injection - will resume once injection has been administered. 4. Chronic systolic and diastolic heart failure Stable, no evidence of decompensation. Continue Coreg, Lisinopril, Demadex 5. Mitral regurgitation - stable. 6. DM 2 - Resume home insulin regimen on discharge. 7. History of DVT/PE s/p IVC filter Xarelto being held for SI joint injection - will resume on discharge.
[2018-08-23 14:14] VITALS: BP 94/48; PULSE 65; TEMP 98
--- NOTE | 2018-08-23 15:18 | PN ---
Progress Note (short form) - Note Progress Note: s: no cp sob palps dizzy o: Vital Signs Period Temp Pulse Resp BP Sys/Marcelo Pulse Ox Last 24 Hr 97.8 F-98.3 F 65-71 19-20 94-150/48-69 91 Constitutional: Yes: Well Nourished, No Distress Eyes: No: Sclera Icterus Respiratory: Yes: CTA Bilaterally. No: Accessory Muscle Use, Rales, Wheezes Gastrointestinal: Yes: Normal Bowel Sounds. No: Distention, Hepatomegaly, Palpable Mass, Tenderness Cardiovascular: Yes: Regular Rate and Rhythm JVD: No Heart Sounds: Yes: S1, S2. No: Gallop Murmur: No: Systolic Murmur, Diastolic Murmur Extremities: No: Cold, Cyanosis Edema: No Peripheral Pulses: 2+ Left Carotid, 2+ Right Carotid, 2+ Left Doralis Pedis, 2+ Right Dorsalis Pedis Integumentary: No: Jaundice Neurological: Yes: Alert, Oriented (x3) Psychiatric: No: Agitated Current Medications Generic Name Dose Route Start Last Admin Trade Name Freq PRN Reason Stop Dose Admin Acetaminophen 650 mg 08/15/18 11:26 08/23/18 12:32 Tylenol - PO 650 mg Q4H PRN Administration PAIN LEVEL 6-10 Carvedilol 25 mg 08/13/18 22:00 08/23/18 10:25 Coreg - PO 25 mg BID LISA Administration Diazepam 5 mg 08/14/18 17:32 08/23/18 10:26 Valium - PO 5 mg Q8H PRN Administration WITHDRAWAL(CONT SUBST) Docusate Sodium 100 mg 08/13/18 15:11 08/23/18 10:26 Colace - PO 100 mg BID PRN Administration CONSTIPATION Ergocalciferol 50,000 unit 08/15/18 10:00 08/22/18 10:10 Drisdol - PO 50,000 unit Tu@1000 LISA Administration Gabapentin 300 mg 08/13/18 22:00 08/23/18 15:06 Neurontin - PO 300 mg TID LISA Administration Insulin Aspart 1 vial 08/13/18 16:30 08/23/18 12:28 Novolog Vial Sliding Scale - SQ 6 units TIDAC LISA Administration Protocol Lisinopril 2.5 mg 08/15/18 22:00 08/23/18 10:25 Prinivil PO 2.5 mg BID LISA Administration Melatonin 5 mg 08/15/18 17:49 Melatonin PO HS PRN INSOMNIA Multivitamins/Minerals/Vitamin C 1 tab 08/15/18 10:00 08/23/18 10:25 Tab-A-Vit - PO 1 tab DAILY LISA Administration Oxycodone HCl 10 mg 08/15/18 11:27 08/23/18 12:33 Roxicodone - PO 10 mg Q4H PRN Administration PAIN LEVEL 6-10 Rivaroxaban 20 mg 08/14/18 10:00 08/19/18 13:38 Xarelto - PO Not Given DAILY LISA Torsemide 50 mg 08/14/18 16:00 08/23/18 12:29 Demadex - PO Not Given DAILY LISA Zolpidem Tartrate 5 mg 08/13/18 15:11 08/21/18 22:57 Ambien - PO 5 mg HS PRN Administration INSOMNIA CBC, BMP 08/22/18 06:35 08/22/18 06:35 echo here 06/2018: nl lv, rv tds, mild mr, nl rvsp echo (office) 03/25: 1. The left ventricular size is normal. 2. Overall left ventricular systolic function is normal with, an EF between 55 - 60 %. Watts's EF calculation (apical 4 chamber) = 62%. 3. LA pressure is probably elevated. 4. The right ventricle is normal in size and function. 5. Left atrium is normal size by volume. 6. The mitral valve leaflets are mildly thickened. Posterior leaflet is tethered in motion. 7. Moderate mitral regurgitation is present (central jet). No systolic flow reversal present in pulmonary vein. 8. Unable to estimate RVSP due to inadequate TR jet spectral doppler profile; it is at least 36 mmHg (i.e. mildly elevated). echo here 06/01/17: nl lv, nl rv size, mild fernando, sev mr, mild tr, nl rvsp echo in office 05/09/2017: mild-mod lve, lvef 30-35%, global hk, nl rv size, mild dec rv fcn, mild lae, mod-sev mr mibi 05/2014: no ischemia, mildly reduced lvef cath 2005: normal cors a/p: 71 f hx multiple PEs/DVTs s/p ivc filter and on xarelto dm, hld, htn, sys chf, here with back/leg pain, found with para-spinal fluid collection chronic mixed systolic/diastolic HF: -nonisch CMP dx'd 2014 (L/RHC moderately elevated wedge (25) and corresponding elevation in PAPs (50/25); NORMAL CORONARIES -severely reduced cardiac index on that RHC -more recent echo as outpt shows normalization in EF, ? related to improved med compliance, ? wt loss-->NICHOLE improved (untreated before). -echo here 06/25 unremarkable, had volume overload at that time related to hypotension requiring diuretics held, and IVF treatment--sent out on torsemide 20 qd, DORENE held for low bp. -then again with PNA 07/25 causing chf exacerbation--sent out on torsemide 50 qd , carvedilol 25 bid, lisinopril 5 qd -BNP 2K (baseline range 2-3K) -no volume on exam and cxr clear. cont torsemide 50 po qd for now, low threshold to incr to 100 qd if sob worsens. -tolerate sbp > 90 here -despite EF normalized, prefer to maintain BB and DORENE regimen, as these meds may have been reason for improvement in systolic fxn. -cont carvedilol 25 bid, lisinopril 2.5 mg BID s/p spine surgery, back pain, fluid collection: -per ID, neurosurgery, hospitalist -s/p back injection today Atrial fibrillation - new diagnosis when here 07/25 with PNA - carvedilol dose (previously lowered due to low bp's) increased to 25 mg BID for rapid HRs--improved - in sinus on exam, HR good--cont same bb - on xarelto for DVT/PE as well -holding xarelto currently for possible SI joint injection, restart when able following procedure HTN: - stable, controlled without lows at the moment - same meds h/o VTEs (DVTs and PEs): -s/p IVC filter -on lifelong AC per prior plan (felt to be hypercoagulable by heme) - on xarelto NICHOLE: -not compliant with cpap cardiac hallman stable
== END 2018-08-23 15:50 | disposition home or self-care (01) | DRG 551 ==
LOC: JER 10:00 → JERBED 16:13 → J5S 21:30
PROVIDERS: ADMIT Internal Medicine
PROC: 3E0R33Z Introduction of Anti-inflammatory into Spinal Canal, Percutaneous Approach (ICD-10-PCS; principal; 2018-08-23)
PROC: 3E0R3BZ Introduction of Anesthetic Agent into Spinal Canal, Percutaneous Approach (ICD-10-PCS; 2018-08-23)
PROC: BQ01YZZ Plain Radiography of Left Hip using Other Contrast (ICD-10-PCS; 2018-08-23)
DX: M54.17 Radiculopathy, lumbosacral region (principal); G06.1 Intraspinal abscess and granuloma; L02.818 Cutaneous abscess of other sites; I50.42 Chronic combined systolic (congestive) and diastolic (congestive) heart failure; N73.8 Other specified female pelvic inflammatory diseases; M51.37 Other intervertebral disc degeneration, lumbosacral region; I11.0 Hypertensive heart disease with heart failure; E11.9 Type 2 diabetes mellitus without complications; E78.00 Pure hypercholesterolemia, unspecified; M06.80 Other specified rheumatoid arthritis, unspecified site; M54.5 Low back pain; M54.9 Dorsalgia, unspecified; I34.0 Nonrheumatic mitral (valve) insufficiency; I48.0 Paroxysmal atrial fibrillation; G47.33 Obstructive sleep apnea (adult) (pediatric); Z86.711 Personal history of pulmonary embolism; Z86.718 Personal history of other venous thrombosis and embolism; Z96.653 Presence of artificial knee joint, bilateral; Z96.643 Presence of artificial hip joint, bilateral; Z98.84 Bariatric surgery status; E66.9 Obesity, unspecified; Z68.37 Body mass index [BMI] 37.0-37.9, adult
CPT/HCPCS: 27093; 36415; 71045-TC-FY; 72131-TC; 72194-TC; 73525-TC-FY; 76380-TC; 80048; 80053; 81003; 82784; 82962; 83735; 83880; 83883; 84100; 84155; 84165; 85025; 85027; 85610; 85651; 85730; 86140; 87040; 88300-TC; 93005; 93010; 94010; 97116-GP; 97162-GP; 99284-25

== ENCOUNTER 2018-09-12 12:01 | Emergency (ER) | payer OTHER | END 2018-09-12 13:20 | disposition left against medical advice (07) | LOC: JER 12:01 | DX: Z53.21 Procedure and treatment not carried out due to patient leaving prior to being seen by health care provider (principal) | CPT/HCPCS: 99281-25 ==

== ENCOUNTER 2019-07-16 08:00 | Inpatient (IN) | payer OTHER ==
[2019-07-16] MEDS ORDERED: ceFAZolin SODIUM 1 GM VIAL IVPB ONE (09:00)
[2019-07-16] MEDS ORDERED: VANCOMYCIN 1,000 MG VIAL (RESTRICTED TO ID ONLY) IVPB ONE (09:15)
[2019-07-16] MEDS ORDERED: THROMBIN (BOVINE) 5,000 UNIT VIAL TP ONE (10:13)
[2019-07-16] MEDS ORDERED: GELATIN SPONGE,ABSORBABLE 1 GM PACKET TP ONE (10:14)
[2019-07-16] MEDS ORDERED: PHENYLEPHRINE HCL 10 MG/1 ML SINGLE DOSE VIAL ONE (10:16)
[2019-07-16] MEDS ORDERED: VANCOMYCIN 1,000 MG VIAL (RESTRICTED TO ID ONLY) ONE (12:23)
[2019-07-16] MEDS ORDERED: ONDANSETRON 4 MG/2 ML VIAL IVPUSH PRN (12:47)
[2019-07-16] MEDS ORDERED: ACETAMINOPHEN INJECTION 100 ML IVPB ONE (13:20)
[2019-07-16] MEDS ORDERED: ACETAMINOPHEN 1000 MG/100 ML VIAL (NON FORMULARY) IVPB ONE (13:25)
--- NOTE | 2019-07-16 13:25 | PN ---
Progress Note (short form) - Note Progress Note: 71F s/p L4, L5, S1 laminectomies, facetectomies, and foraminotomies with revision L3-S1 in situ fusion POD #0. -Admit to ICU post-op. -Pain control: NO NSAID's; oral meds as per patient request. -DVT PPx: -Mechanical only: MARLON's, SCD's. -Chemical: None. -Incentive spirometry q15 min. -NPO until flatus. -Hines care; d/c when ambulating. -Post-op Ancef x 3 doses. -PT/OT/Rehab, OOB. -WBAT B/L LE. -No bending, lifting (>5 lbs), or twisting for 9-12 months. -Care per ICU & medical hospitalist teams. -Discharge planning: f[facility] 7[facility]10 [facility]; call for appointment; . -Will follow. Sreekanth Borjas MD (Orthopaedic Surgery).
--- NOTE | 2019-07-16 13:26 | OP ---
Operative Note - Note: Operative Date: 07/16/19 Pre-Operative Diagnosis: L4-S1 spinal stenosis with lower extremity radiculopathy and neurogenic claudication. Severity of illness: 4. Operation: 1. L4, L5, S1 laminectomies, facetectomies, and foraminotomies. 2. L3-S1 posterolateral arthrodesis. 3. Bone autograft. 4. Bone allograft. 5. Repair incidental durotomy Post-Operative Diagnosis: Same as Pre-op Surgeon: Sreekanth Borjas Architecture Analyst: Luis Borjas Anesthesiologist/MIXING TANK OPERATOR: Princess Ricks Anesthesia: General Specimens Removed: Multiple posterior spine soft tissue specimens Estimated Blood Loss (mls): 350 Blood Volume Replaced (mls): 125 (Cell Saver) Fluid Volume Replaced (mls): 1,000 (Crystalloid) Operative Report Dictated: Yes
[2019-07-16] MEDS ORDERED: ZOLPIDEM TARTRATE 5 MG TABLET PO PRN (13:29)
[2019-07-16] MEDS ORDERED: diazePAM 5 MG TABLET PO ONE (13:30)
[2019-07-16] MEDS ORDERED: KETOROLAC TROMETHAMINE 30 MG/1 ML VIAL IVPUSH ONE ×3 (13:30→17:00)
[2019-07-16] MEDS ORDERED: ACETAMINOPHEN 1000 MG/100 ML VIAL (NON FORMULARY) IVPB PRN (13:30)
[2019-07-16] MEDS ORDERED: KETOROLAC TROMETHAMINE 30 MG/1 ML VIAL ONE (13:31)
[2019-07-16] MEDS ORDERED: ACETAMINOPHEN 325 MG TABLET (FP) PO PRN (13:32)
[2019-07-16] MEDS ORDERED: HYDROmorphone *PCA* 10MG/50ML DISP.SYRIN PCA ONE (13:54)
[2019-07-16] MEDS ORDERED: oxyCODONE HCL 5 MG TABLET PO PRN (15:36)
--- NOTE | 2019-07-16 16:02 | OP ---
DATE OF OPERATION: DATE OF DICTATION: 07/16/2019 SURGEON: Sreekanth Borjas MD HOUSEKEEPING/LAUNDRY SUPERVISOR: Luis Borjas MD PREOPERATIVE DIAGNOSIS: Recurrent spinal stenosis with left-sided L4, 5, S1 radiculopathy, lumbar spine with associated possible segmental instability. POSTOPERATIVE DIAGNOSIS: Recurrent spinal stenosis with left-sided L4, 5, S1 radiculopathy, lumbar spine with associated possible segmental instability. OPERATION PERFORMED: 1. Revision laminectomy L4 and L5. (29835-81, 79251-26) 2. Inspection of fusion mass. (94338) 3. Incidental durotomy with repair. 4. Posterior arthrodesis L4-L5, L5-S1. (40565-40, 52391-31) 5. Morselized bone autograft. (74812) 6. Morselized bone allograft. () 7. Complex wound closure, 4 layers, 20cm. (40794 x 3) ANESTHESIA: General. ANTIBIOTICS GIVEN: 2 g Keflex, 1 vancomycin, 1 vancomycin powder left in the wound deep subfascial as well as subcutaneous. BLOOD LOSS: 100 mL. COMPLEXITY: On a scale of 1-10, 15. DESCRIPTION OF PROCEDURE: Patient correctly identified. Brought to the operating room. Placed prone on a Freddy table. All bony points padded. Eyes were attended to. Brachial plexus relaxed in a flexed and forward adducted position. Neuromonitoring was utilized. The lumbar spine skin was prepped with Betadine scrub solution, wiped off with alcohol, DuraPrep applied, window drape applied. Midline incision utilized from the area of L3-S1. Verification of bilateral fluoroscopic x-rays revealed the correct levels for dissection. Preoperative imaging was intraoperatively able to evaluation. The dissection was taken to the skin and subcutaneous tissue. It was impossible to identify any normal anatomy here. The rods had ended at L3. The previous bone grafting was right down to the sacrum. The entire posterior elements were blocked up by fibro-oseous bone. No identification of any normal anatomy noted. Lateral and AP fluoroscopic x-rays helped us delineate which was midline and what the levels were. Using Leksell rongeurs, Kerrisons as well as osteotomes, we literally carved out a block of concrete with a jelly tube that was formed in the middle of the concrete slab. This is a good depiction of what we had to deal with. With osteotomes and Leksells, we carefully debulked the entire bone posteriorly and then were able to have 1 area using sharp curettes delineate the plane between the bone and the dura and then expanding on this, we slowly worked our way that we decompressed the entire L4, 5, S1 complex freeing the nerve roots. Each nerve root was identified, looked at after the complete difficult dissection. This included implosion of the bony bed on the lateral side of the vertebral column inwards and dissecting the bone off the stuck down, adherent wall of the dura onto the actual dura itself. The nerve roots were unharmed. Neuromonitoring revealed a marked improvement from what it was preoperative baseline meaning that the nerve roots were completely decompressed and jessica improvement in the situation, and we achieved what we set out to do. A small dural tear occurred. This was repaired with 4-0 Nurolon and sealed and tested with 40 mm Valsalva maneuver. Postage stamp of DuraSeal as well as Surgicel utilized. This was sealed completely. The bone that was removed was then morcellized in a [place] mill, used as a graft to that. Was grafted between the lateral side of the bone bed of L4, 5, L1. The fusion mass was inspected. This appeared to be solid, and we augmented the fusion with this graft accordingly. The wounds were thoroughly lavaged throughout the procedure. Closure was as follows: This was a complex wound closure. Muscle 1 Vicryl, fascia 1 Vicryl, subcutaneous 1 and 2-0 Vicryl, skin zach. Drainage, no drains utilized. The tissue bed was bone dry. OVERALL COMMENT: Extremely difficult problem. The MR scanning and CAT scan myelogram revealed the presence of complete blockage in the canal from L4-S1. This has been completely freed. The nerve roots are free. Intraoperative neuromonitoring revealed marked improvement even at this stage, and I am looking forward to a good outcome here. MD JOE Buenrostro/[id number] MTDD
[2019-07-16] MEDS ORDERED: PATIENT'S OWN MEDICATION (NON-FORMULARY) (Insulin Lispro Protamin/Lispro [Humalog Mix 75-2 SQ SCH (16:30)
--- NOTE | 2019-07-16 18:04 | CONSULT ---
Consultation: REQUESTING PROVIDER: CONSULT REQUEST: We have been asked to medically evaluate this patient for post operative management. HISTORY OF PRESENT ILLNESS: Patient is a 73yo F with PMH HTN, DM, CHFpEF (06/19/18 EF ~50%), afib, intractable lower back pain s/p L4-L5 laminectomy, L2-S1 seroma w/ drianage, PE/ DVT (10 yrs prior; with IVC filter, on xarelto) now s/p L4, L5, S1 laminectomies , facetectomies, and foraminotomies with revision L3-S1 in situ fusion POD #0. Received post-operative Valium, Toradol, Ofirmev, and MACHINE LEARNING INTERN. With adequate pain control at the current time. Denies chest pain, SOB, fevers, chills, nausea, vomiting, pain (only occurs with movement). Endorses chronic sensory deficits in LE, R>L. REVIEW OF SYSTEMS: As above PHYSICAL EXAMINATION Vital Signs - 24 hr 07/16/19 07/16/19 07/16/19 06:38 13:11 13:15 Temperature 98.4 F 97.7 F Pulse Rate 84 81 84 Respiratory 20 16 17 Rate Blood Pressure 129/70 118/66 110/53 L O2 Sat by Pulse 97 98 97 Oximetry (%) 07/16/19 07/16/19 07/16/19 13:30 13:45 14:00 Temperature Pulse Rate 75 75 79 Respiratory 15 18 16 Rate Blood Pressure 99/63 125/61 106/51 L O2 Sat by Pulse 97 97 94 L Oximetry (%) 07/16/19 07/16/19 07/16/19 14:15 14:30 14:45 Temperature Pulse Rate 76 85 69 Respiratory 17 29 H 20 Rate Blood Pressure 102/60 114/72 132/58 L O2 Sat by Pulse 96 100 100 Oximetry (%) 07/16/19 07/16/19 07/16/19 15:00 15:15 15:30 Temperature Pulse Rate 75 65 60 Respiratory 22 H 14 16 Rate Blood Pressure 126/72 98/65 134/68 O2 Sat by Pulse 100 100 100 Oximetry (%) 07/16/19 07/16/19 07/16/19 15:45 16:00 16:15 Temperature Pulse Rate 75 60 60 Respiratory 10 14 12 Rate Blood Pressure 142/58 L 133/54 L 150/62 O2 Sat by Pulse 100 99 100 Oximetry (%) 07/16/19 07/16/19 07/16/19 16:30 16:45 17:00 Temperature Pulse Rate 58 L 58 L 59 L Respiratory 17 12 16 Rate Blood Pressure 133/54 L 142/57 L 139/60 O2 Sat by Pulse 100 99 98 Oximetry (%) 07/16/19 07/16/19 17:15 17:45 Temperature 97.5 F L 97.4 F L Pulse Rate 55 L 62 Respiratory 10 16 Rate Blood Pressure 139/61 123/47 L O2 Sat by Pulse 100 Oximetry (%) GENERAL: Awake, alert, and fully oriented, in no acute distress. HEAD: Normal with no signs of trauma. EYES: Extraocular movements intact, sclera anicteric, conjunctiva clear. No lid lag. EARS, NOSE, THROAT: Ears grossly normal, nares patent, oropharynx clear without exudates. Moist mucous membranes. NECK: Normal range of motion, supple without lymphadenopathy, JVD, or masses. LUNGS: Humidified O2 mask in place. Breath sounds equal, clear to auscultation bilaterally. No wheezes, and no crackles. No accessory muscle use. HEART: Regular rate and rhythm, normal S1 and S2 without murmur, rub or gallop appreciated. ABDOMEN: Soft, non-tender, non-distended, no guarding, no rebound, no masses. MUSCULOSKELETAL: Differed for patient comfort UPPER EXTREMITIES: 2+ pulses, warm, well-perfused. No cyanosis. No clubbing. Cap refill <2 seconds. No peripheral edema. LOWER EXTREMITIES: 2+ pulses, warm, well-perfused. No calf tenderness. No peripheral edema. SCDs in place. LLE knee surgical scar. NEUROLOGICAL: Cranial nerves II-XII grossly intact. Minimally reduced sensation b/l LE R>L. Normal speech. Gait not assessed. PSYCHIATRIC: Cooperative. Good eye contact. Appropriate mood and affect. SKIN: Warm, dry, no rashes or lesions noted. Laboratory Results - last 24 hr 07/16/19 07/16/19 07:22 09:15 POC Glucometer 132 Blood Type O POSITIVE Antibody Screen Negative Active Medications Generic Name Dose Route Start Last Admin Trade Name Freq PRN Reason Stop Dose Admin Acetaminophen 1,000 mg 07/16/19 13:30 Ofirmev Injection - IVPB 07/17/19 07:31 Q6H LISA Acetaminophen 650 mg 07/16/19 13:32 Tylenol - PO Q4H PRN PAIN LEVEL 6-10 Carvedilol 12.5 mg 07/17/19 10:00 Coreg - PO BID [facility] Cefazolin Sodium/Dextrose 2 gm 07/16/19 15:00 Ancef 2 Gm Premixed Ivpb - IVPB 07/17/19 03:01 Q6H [facility] Diazepam 5 mg 07/16/19 13:30 Valium - PO Q12H [facility] Fentanyl 50 mcg 07/16/19 12:47 Sublimaze Injection - IVPUSH [id number] PRN PAIN-PACU ORDER X 4 DOSES ONLY Hydromorphone HCl 10 mg 07/16/19 13:30 Hydromorphone 10 Mg/50 Ml-Ns MACHINE LEARNING INTERN 07/23/19 13:25 MACHINE LEARNING INTERN [facility] Protocol Lactated Ringer's 1,000 mls @ 125 mls/hr 07/16/19 13:30 Lactated Ringers Solution IV ASDIR [facility] Influenza Virus Vaccine Quadrival 60 mcg 07/17/19 06:45 Flulaval Quad [id number] IM 07/17/19 06:46 .ONCE ONE Insulin Aspart 1 vial 07/16/19 22:00 Novolog Vial Sliding Scale - SQ ACHS [facility] Protocol Ketorolac Tromethamine 30 mg 07/16/19 13:30 Toradol Injection - IVPUSH 07/16/19 13:31 ONCE ONE Leflunomide 20 mg 07/17/19 10:00 Arava - PO DAILY [facility] Lisinopril 5 mg 07/17/19 10:00 Prinivil PO DAILY [facility] Non-Formulary Medication 22 unit 07/16/19 16:30 Insulin Lispro Protamin/Lispro [Humalog Mix 75-25 Kwikpen] SQ ACDIN [facility] Ondansetron HCl 4 mg 07/16/19 12:47 Zofran Injection IVPUSH Q6H PRN NAUSEA AND/OR VOMITING Ondansetron HCl 4 mg 07/16/19 13:30 Zofran Injection IVPUSH Q6H PRN NAUSEA AND/OR VOMITING Oxycodone HCl 10 mg 07/16/19 15:36 Roxicodone - PO Q4H PRN PAIN LEVEL 6-10 Torsemide 50 mg 07/17/19 10:00 Demadex - PO DAILY LISA Zolpidem Tartrate 5 mg 07/16/19 13:29 Ambien - PO HS PRN INSOMNIA ASSESSMENT/PLAN: 73yo F with PMH HTN, DM, CHFpEF (06/19/18 EF ~50%), afib, intractable lower back pain s/p L4-L5 laminectomy, L2-S1 seroma w/ drianage, PE/DVT (10 yrs prior ; with IVC filter, on xarelto) s/p L4, L5, S1 laminectomies, facetectomies, and foraminotomies with revision L3-S1 in situ fusion POD #0. #Neuro: - Pain control: No NSAID's - Oral pain meds PRN - Continue Dilaudid MACHINE LEARNING INTERN #CV: - Monitor vitals - Maintain MAPs >65 - Trend H&H - Restart home HTN medication #Pulm: - Maintain O2 Sat >92% - Supplemental O2 as necessary - Incentive spirometer q15min #Renal: - Hines placed 07/16 - Monitor I&Os - Trend BUN/Cr - IVF as necessary - Replete lyte as needed #ID: - Ancef x3 doses - Monitor for fever / leukocytosis #Endo: - BGM, ISS #GI: - NPO until flatus - Zofran PRN for n/v #PPX: - SCDs, TEDs - PT/OT, OOB - Holding home xarelto in immediate post-op period #Dispo: - Dispo per surgery - No bending, lifting (>5 lbs), or twisting for 9-12 months - Discharge planning: f/u 7-10 days after rehab discharge at [facility] office; call for appointment; - We will continue to follow the patient - Thank you for this consultative opportunity Visit type - Emergency Visit Emergency Visit: No - New Patient This patient is new to me today: Yes Date on this admission: 07/16/19 - Critical Care Critical Care patient: Yes Total Critical Care Time (in minutes): 36 Critical Care Statement: The care of this patient involved high complexity decision making to prevent further life threatening deterioration of the patient 's condition and/or to evaluate & treat vital organ system(s) failure or risk of failure. ATTENDING PHYSICIAN STATEMENT I saw and evaluated the patient. I reviewed the resident's note and discussed the case with the resident. I agree with the resident's findings and plan as documented. SUBJECTIVE: OBJECTIVE: ASSESSMENT AND PLAN:
[2019-07-16] MEDS: LACTATED RINGERS SOLUTION 1,000 ML IV SCH ×2 (19:34→21:16)
[2019-07-16] MEDS: HYDROmorphone *PCA* 10MG/50ML DISP.SYRIN PCA SCH (19:34)
[2019-07-16] MEDS: ACETAMINOPHEN 1000 MG/100 ML VIAL (NON FORMULARY) IVPB SCH ×2 (19:34→20:59)
[2019-07-16] MEDS: diazePAM 5 MG TABLET PO SCH (19:57)
[2019-07-16] MEDS: ceFAZolin 2 GRAM PREMIX BAG IVPB SCH (21:00)
[2019-07-16] MEDS: INSULIN SLIDING SCALE (NOVOLOG) 1 VIAL SQ SCH (21:09)
[2019-07-16] MEDS ORDERED: INSULIN SLIDING SCALE (NOVOLOG) 1 VIAL SQ SCH (22:00)
[2019-07-17] MEDS: ACETAMINOPHEN 1000 MG/100 ML VIAL (NON FORMULARY) IVPB SCH ×2 (01:41→06:29)
[2019-07-17] MEDS: ceFAZolin 2 GRAM PREMIX BAG IVPB SCH ×2 (02:45→03:23)
[2019-07-17] MEDS: diazePAM 5 MG TABLET PO SCH ×2 (02:45→13:49)
[2019-07-17] MEDS ORDERED: ceFAZolin 2 GRAM PREMIX BAG IVPB ONE ×2 (03:30→09:00)
[2019-07-17] MEDS: INSULIN SLIDING SCALE (NOVOLOG) 1 VIAL SQ SCH ×5 (06:27→21:07)
[2019-07-17 06:30] LABS: HEMATOCRIT 33.7 % (32.4-45.2); MCH 29.5 pg (25.7-33.7); MCHC 32.8 g/dl (32.0-36.0); MEAN PLT VOLUME 7.7 fl (7.5-11.1); PLATELET COUNT 153 K/MM3 (134-434); RBC 3.74 M/mm3 (3.60-5.2); WHITE BLOOD COUNT 7.1 K/mm3 (4.0-10.0)
[2019-07-17] MEDS ORDERED: INSULIN (NOVOLOG MIX 70/30) 100 UNITS/ML MDV SQ SCH (07:00)
[2019-07-17 07:41] LABS: ALBUMIN 2.4 g/dl (3.4-5.0); BILIRUBIN,TOTAL 0.3 mg/dL (0.2-1); BLOOD UREA NITROGEN 31.1 mg/dL (7-18); CALCIUM 8.5 mg/dL (8.5-10.1); CREATININE 1.2 mg/dL (0.55-1.3); MAGNESIUM 2.3 mg/dL (1.8-2.4); PHOSPHOROUS 3.5 mg/dL (2.5-4.9); POTASSIUM 5.2 mmol/L (3.5-5.1); TOT PROT 5.6 g/dl (6.4-8.2)
--- NOTE | 2019-07-17 08:36 | HP ---
CHIEF COMPLAINT: PCP: HISTORY OF PRESENT ILLNESS: ER course was notable for: (1) (2) (3) Recent Travel: PAST MEDICAL HISTORY: PAST SURGICAL HISTORY: Social History: Smoking: Alcohol: Drugs: Allergies levofloxacin [From Levaquin] Allergy (Severe, Verified 07/16/19 06:48) ANAPHYLAXIS methotrexate Allergy (Severe, Verified 07/16/19 06:48) Swelling BLISTERS; ALSO ALLERGY TO PCN MANY YRS AGO Penicillins Allergy (Mild, Verified 07/16/19 06:48) Rash doxycycline Allergy (Unknown, Verified 07/16/19 06:48) does not recall reaction. "It made me sick" bumetanide [From Bumex] Allergy (Verified 07/16/19 06:48) Rash morphine Adverse Reaction (Mild, Verified 07/16/19 06:48) Itching piperacillin sodium [From Zosyn] Adverse Reaction (Mild, Verified 07/16/19 06:48 ) Itching tazobactam sodium [From Zosyn] Adverse Reaction (Mild, Verified 07/16/19 06:48) Itching HOME MEDICATIONS: Home Medications Medication Instructions Recorded Gabapentin 300 mg PO BID 03/04/14 Oxycodone HCl/Acetaminophen 1 tab PO Q6H PRN 03/04/14 [Percocet 10-325 mg Tablet] Insulin Lispro Protamin/Lispro 22 unit SQ ACDIN 12/15/15 [Humalog Mix 75-25 Kwikpen] Zolpidem Tartrate [Ambien] 10 mg PO HS PRN 06/01/17 Rivaroxaban [Xarelto -] 20 mg PO DAILY 06/22/18 Leflunomide [Arava] 20 mg PO DAILY 07/26/18 Torsemide 50 mg PO DAILY 07/26/18 Baclofen 10 mg PO Q12H 07/16/19 Carvedilol [Coreg -] 25 mg PO DAILY 07/16/19 Lisinopril 5 mg PO DAILY 07/16/19 Pregabalin [Lyrica -] 75 mg PO TID 07/16/19 REVIEW OF SYSTEMS CONSTITUTIONAL: Absent: fever, chills, diaphoresis, generalized weakness, malaise, loss of appetite, weight change HEENT: Absent: rhinorrhea, nasal congestion, throat pain, throat swelling, difficulty swallowing, mouth swelling, ear pain, eye pain, visual changes CARDIOVASCULAR: Absent: chest pain, syncope, palpitations, irregular heart rate, lightheadedness , peripheral edema RESPIRATORY: Absent: cough, shortness of breath, dyspnea with exertion, orthopnea, wheezing, stridor, hemoptysis GASTROINTESTINAL: Absent: abdominal pain, abdominal distension, nausea, vomiting, diarrhea, constipation, melena, hematochezia GENITOURINARY: Absent: dysuria, frequency, urgency, hesitancy, hematuria, flank pain, genital pain MUSCULOSKELETAL: Absent: myalgia, arthralgia, joint swelling, back pain, neck pain SKIN: Absent: rash, itching, pallor HEMATOLOGIC/IMMUNOLOGIC: Absent: easy bleeding, easy bruising, lymphadenopathy, frequent infections ENDOCRINE: Absent: unexplained weight gain, unexplained weight loss, heat intolerance, cold intolerance NEUROLOGIC: Absent: headache, focal weakness or paresthesias, dizziness, unsteady gait, seizure, mental status changes, bladder or bowel incontinence PSYCHIATRIC: Absent: anxiety, depression, suicidal or homicidal ideation, hallucinations. PHYSICAL EXAMINATION Vital Signs - 24 hr 07/16/19 07/16/19 07/16/19 13:11 13:15 13:30 Temperature 97.7 F Pulse Rate 81 84 75 Respiratory 16 17 15 Rate Blood Pressure 118/66 110/53 L 99/63 O2 Sat by Pulse 98 97 97 Oximetry (%) 07/16/19 07/16/19 07/16/19 13:45 13:54 14:00 Temperature Pulse Rate 75 75 79 Respiratory 18 18 16 Rate Blood Pressure 125/61 125/61 106/51 L O2 Sat by Pulse 97 97 94 L Oximetry (%) 07/16/19 07/16/19 07/16/19 14:15 14:30 14:45 Temperature Pulse Rate 76 85 69 Respiratory 17 29 H 20 Rate Blood Pressure 102/60 114/72 132/58 L O2 Sat by Pulse 96 100 100 Oximetry (%) 07/16/19 07/16/19 07/16/19 15:00 15:15 15:30 Temperature Pulse Rate 75 65 60 Respiratory 22 H 14 16 Rate Blood Pressure 126/72 98/65 134/68 O2 Sat by Pulse 100 100 100 Oximetry (%) 07/16/19 07/16/19 07/16/19 15:45 16:00 16:15 Temperature Pulse Rate 75 60 60 Respiratory 10 14 12 Rate Blood Pressure 142/58 L 133/54 L 150/62 O2 Sat by Pulse 100 99 100 Oximetry (%) 07/16/19 07/16/19 07/16/19 16:30 16:45 17:00 Temperature Pulse Rate 60 58 L 59 L Respiratory 13 12 16 Rate Blood Pressure 133/54 L 142/57 L 139/60 O2 Sat by Pulse 99 99 98 Oximetry (%) 07/16/19 07/16/19 07/16/19 17:15 17:45 18:00 Temperature 97.5 F L 97.4 F L Pulse Rate 55 L 62 62 Respiratory 10 16 18 Rate Blood Pressure 139/61 123/47 L 128/51 L O2 Sat by Pulse 100 95 Oximetry (%) 07/16/19 07/16/19 07/16/19 18:04 19:34 20:00 Temperature Pulse Rate 57 L 60 Respiratory 19 14 Rate Blood Pressure 128/51 L 135/57 L O2 Sat by Pulse 95 100 100 Oximetry (%) 07/16/19 07/16/19 07/17/19 21:00 22:00 02:00 Temperature 97.8 F 97.9 F Pulse Rate 67 61 Respiratory 14 17 17 Rate Blood Pressure 144/63 127/47 L O2 Sat by Pulse 100 Oximetry (%) 07/17/19 02:25 Temperature Pulse Rate Respiratory Rate Blood Pressure O2 Sat by Pulse 99 Oximetry (%) GENERAL: Awake, alert, and fully oriented, in no acute distress. HEAD: Normal with no signs of trauma. EYES: Pupils equal, round and reactive to light, extraocular movements intact, sclera anicteric, conjunctiva clear. No lid lag. EARS, NOSE, THROAT: Ears normal, nares patent, oropharynx clear without exudates. Moist mucous membranes. NECK: Normal range of motion, supple without lymphadenopathy, JVD, or masses. LUNGS: Breath sounds equal, clear to auscultation bilaterally. No wheezes, and no crackles. No accessory muscle use. HEART: Regular rate and rhythm, normal S1 and S2 without murmur, rub or gallop. ABDOMEN: Soft, nontender, not distended, normoactive bowel sounds, no guarding, no rebound, no masses. No hepatomegaly or splenomegaly. MUSCULOSKELETAL: Normal range of motion at all joints. No bony deformities or tenderness. No CVA tenderness. UPPER EXTREMITIES: 2+ pulses, warm, well-perfused. No cyanosis. No clubbing. No peripheral edema. LOWER EXTREMITIES: 2+ pulses, warm, well-perfused. No calf tenderness. No peripheral edema. NEUROLOGICAL: Cranial nerves II-XII intact. Normal speech. Normal gait. PSYCHIATRIC: Cooperative. Good eye contact. Appropriate mood and affect. SKIN: Warm, dry, normal turgor, no rashes or lesions noted, normal capillary refill. Laboratory Results - last 24 hr 07/16/19 07/16/19 07/16/19 09:15 18:29 21:04 WBC RBC Hgb Hct MCV MCH MCHC RDW Plt Count MPV Sodium Potassium Chloride Carbon Dioxide Anion Gap BUN Creatinine Est GFR (CKD-EPI)AfAm Est GFR (CKD-EPI)NonAf POC Glucometer 183 172 Random Glucose Calcium Phosphorus Magnesium Total Bilirubin AST ALT Alkaline Phosphatase Total Protein Albumin Blood Type O POSITIVE Antibody Screen Negative 07/17/19 07/17/19 07/17/19 00:24 01:45 05:38 WBC 7.1 RBC 3.74 Hgb 11.0 Hct 33.7 D MCV 90.0 MCH 29.5 MCHC 32.8 RDW 15.0 Plt Count 153 D MPV 7.7 Sodium Potassium Chloride Carbon Dioxide Anion Gap BUN Creatinine Est GFR (CKD-EPI)AfAm Est GFR (CKD-EPI)NonAf POC Glucometer 155 141 Random Glucose Calcium Phosphorus Magnesium Total Bilirubin AST ALT Alkaline Phosphatase Total Protein Albumin Blood Type Antibody Screen 07/17/19 07/17/19 05:38 06:16 WBC RBC Hgb Hct MCV MCH MCHC RDW Plt Count MPV Sodium 140 Potassium 5.2 H Chloride 109 H Carbon Dioxide 26 Anion Gap 5 L BUN 31.1 H Creatinine 1.2 Est GFR (CKD-EPI)AfAm 51.92 Est GFR (CKD-EPI)NonAf 44.80 POC Glucometer 152 Random Glucose 145 H Calcium 8.5 Phosphorus 3.5 Magnesium 2.3 Total Bilirubin 0.3 AST 32 ALT 33 Alkaline Phosphatase 123 H Total Protein 5.6 L Albumin 2.4 L Blood Type Antibody Screen ASSESSMENT/PLAN: ATTENDING PHYSICIAN STATEMENT I saw and evaluated the patient. I reviewed the resident's note and discussed the case with the resident. I agree with the resident's findings and plan as documented. SUBJECTIVE: OBJECTIVE: ASSESSMENT AND PLAN:
[2019-07-17] MEDS ORDERED: PT OWN MED DRAWER 7, Y5N ONE (09:11)
--- NOTE | 2019-07-17 09:20 | PN ---
Physical Exam: SUBJECTIVE: Patient seen and examined. States that pain is well controlled. She has been passing gas. Patient reading book while in bed. OBJECTIVE: Vital Signs Period Temp Pulse Resp BP Sys/Marcelo Pulse Ox Last 24 Hr 97.4 F-97.9 F 55-85 10-29 98-150/47-72 94-100 GENERAL: The patient is awake, alert, and fully oriented, in no acute distress. HEAD: Normal with no signs of trauma. EYES: EOMI, no scleral icterus, no ptosis ENT: MMM NECK: Trachea midline LUNGS: Breath sounds equal, clear to auscultation bilaterally, no wheezes, no crackles, no accessory muscle use. HEART: Regular rate and rhythm, S1, S2 without murmur, rub or gallop. ABDOMEN: Soft, nontender, nondistended, normoactive bowel sounds, no guarding EXTREMITIES: 2+ pulses, warm, well-perfused, no edema. NEUROLOGICAL: Normal speech, gait not observed. sensation intact throughout PSYCH: Normal mood, normal affect. SKIN: Warm, dry Laboratory Results - last 24 hr 07/16/19 07/16/19 07/16/19 09:15 18:29 21:04 WBC RBC Hgb Hct MCV MCH MCHC RDW Plt Count MPV Sodium Potassium Chloride Carbon Dioxide Anion Gap BUN Creatinine Est GFR (CKD-EPI)AfAm Est GFR (CKD-EPI)NonAf POC Glucometer 183 172 Random Glucose Calcium Phosphorus Magnesium Total Bilirubin AST ALT Alkaline Phosphatase Total Protein Albumin Blood Type O POSITIVE Antibody Screen Negative 07/17/19 07/17/19 07/17/19 00:24 01:45 05:38 WBC 7.1 RBC 3.74 Hgb 11.0 Hct 33.7 D MCV 90.0 MCH 29.5 MCHC 32.8 RDW 15.0 Plt Count 153 D MPV 7.7 Sodium Potassium Chloride Carbon Dioxide Anion Gap BUN Creatinine Est GFR (CKD-EPI)AfAm Est GFR (CKD-EPI)NonAf POC Glucometer 155 141 Random Glucose Calcium Phosphorus Magnesium Total Bilirubin AST ALT Alkaline Phosphatase Total Protein Albumin Blood Type Antibody Screen 07/17/19 07/17/19 05:38 06:16 WBC RBC Hgb Hct MCV MCH MCHC RDW Plt Count MPV Sodium 140 Potassium 5.2 H Chloride 109 H Carbon Dioxide 26 Anion Gap 5 L BUN 31.1 H Creatinine 1.2 Est GFR (CKD-EPI)AfAm 51.92 Est GFR (CKD-EPI)NonAf 44.80 POC Glucometer 152 Random Glucose 145 H Calcium 8.5 Phosphorus 3.5 Magnesium 2.3 Total Bilirubin 0.3 AST 32 ALT 33 Alkaline Phosphatase 123 H Total Protein 5.6 L Albumin 2.4 L Blood Type Antibody Screen Active Medications Generic Name Dose Route Start Last Admin Trade Name Freq PRN Reason Stop Dose Admin Acetaminophen 650 mg 07/16/19 13:32 Tylenol - PO Q4H PRN PAIN LEVEL 6-10 Carvedilol 12.5 mg 07/17/19 10:00 Coreg - PO BID [facility] Diazepam 5 mg 07/16/19 13:30 07/17/19 02:45 Valium - PO Not Given Q12H [facility] Fentanyl 50 mcg 07/16/19 12:47 Sublimaze Injection - IVPUSH [id number] PRN PAIN-PACU ORDER X 4 DOSES ONLY Hydromorphone HCl 10 mg 07/16/19 13:30 07/16/19 19:34 Hydromorphone 10 Mg/50 Ml-Ns EDUCATION REPORTER 07/23/19 13:25 Not Given EDUCATION REPORTER [facility] Protocol Lactated Ringer's 1,000 mls @ 125 mls/hr 07/16/19 13:30 07/16/19 21:16 Lactated Ringers Solution IV 125 mls/hr ASDIR [facility] Administration Influenza Virus Vaccine Quadrival 60 mcg 07/17/19 06:45 Flulaval Quad [id number] IM 07/17/19 06:46 .ONCE ONE Insulin Aspart 1 vial 07/16/19 22:00 07/17/19 07:03 Novolog Vial Sliding Scale - SQ Not Given ACHS [facility] Protocol Leflunomide 20 mg 07/17/19 10:00 Arava - PO DAILY [facility] Lisinopril 5 mg 07/17/19 10:00 Prinivil PO DAILY [facility] Ondansetron HCl 4 mg 07/16/19 13:30 Zofran Injection IVPUSH Q6H PRN NAUSEA AND/OR VOMITING Oxycodone HCl 10 mg 07/16/19 15:36 Roxicodone - PO Q4H PRN PAIN LEVEL 6-10 Torsemide 50 mg 07/17/19 10:00 Demadex - PO DAILY [facility] Zolpidem Tartrate 5 mg 07/16/19 13:29 Ambien - PO HS PRN INSOMNIA ASSESSMENT/PLAN: 73 y/o/f with PMH HTN, DM, CHFpEF (06/19/18 EF ~50%), afib, intractable lower back pain s/p L4-L5 laminectomy, L2-S1 seroma w/ drianage, PE/DVT (10 yrs prior ; with IVC filter, on xarelto) s/p L4, L5, S1 laminectomies, facetectomies, and foraminotomies with revision L3-S1 in situ fusion POD #1. #Neuro: - Pain control as per anesthesia: No NSAID's - Oral pain meds PRN - Continue Dilaudid EDUCATION REPORTER #CV: - Monitor vitals - Maintain MAPs >65 - Trend H&H - Restart home HTN medication as permitted #Pulm: - Maintain O2 Sat >92% - Supplemental O2 as necessary - Encourage incentive spirometer q15min #Renal: - Hines placed 07/16 - Monitor I&Os - Trend BUN/Cr - IVF as necessary - Replete lytes as needed #ID: - Ancef x3 doses post op - Monitor for fever / leukocytosis #Endo: - BGM, ISS #GI: - Clear liquid diet - Zofran PRN for n/v #PPX: - SCDs, TEDs - PT/OT, OOB - Holding home xarelto in immediate post-op period - Clear liquid diet, advance as tolerated - LR @75mls/hr #Dispo: - Stable for transfer to med surg - No bending, lifting (>5 lbs), or twisting for 9-12 months - Discharge planning: f/u 7-10 [facility]; call for appointment; Visit type - Emergency Visit Emergency Visit: No - New Patient This patient is new to me today: Yes Date on this admission: 07/17/19 - Critical Care Critical Care patient: Yes Total Critical Care Time (in minutes): 36 Critical Care Statement: The care of this patient involved high complexity decision making to prevent further life threatening deterioration of the patient 's condition and/or to evaluate & treat vital organ system(s) failure or risk of failure. ATTENDING PHYSICIAN STATEMENT I saw and evaluated the patient. I reviewed the resident's note and discussed the case with the resident. I agree with the resident's findings and plan as documented. SUBJECTIVE: OBJECTIVE: ASSESSMENT AND PLAN:
[2019-07-17] MEDS: CARVEDILOL 12.5 MG TABLET (FP) PO SCH ×2 (09:30→21:09)
[2019-07-17] MEDS: TORSEMIDE 20 MG TABLET (FP) PO SCH (09:30)
[2019-07-17] MEDS: LISINOPRIL 5 MG TABLET (FP) PO SCH (09:30)
[2019-07-17] MEDS: LEFLUNOMIDE 10 MG TABLET PO SCH (09:31)
[2019-07-17] MEDS ORDERED: CARVEDILOL 12.5 MG TABLET (FP) PO SCH (10:00)
[2019-07-17] MEDS ORDERED: CARVEDILOL 25 MG TABLET (FP) PO SCH (10:00)
[2019-07-17] MEDS: HYDROmorphone *PCA* 10MG/50ML DISP.SYRIN PCA SCH ×2 (11:01→13:50)
--- NOTE | 2019-07-17 11:07 | PN ---
Teaching Attending Note Name of Resident: Kathy Osman ATTENDING PHYSICIAN STATEMENT I saw and evaluated the patient. I reviewed the resident's note and discussed the case with the resident. I agree with the resident's findings and plan as documented. SUBJECTIVE: Pt seen and examined in the ICU. Pain controlled. Tolerating PO. No fevers or chills. OBJECTIVE: Vital Signs Period Temp Pulse Resp BP Sys/Marcelo Pulse Ox Last 24 Hr 97.4 F-97.9 F 55-85 10-29 98-150/40-72 94-100 Intake & Output 07/14/19 07/15/19 07/16/19 07/17/19 23:59 23:59 23:59 23:59 Intake Total 1625 1850 Output Total 790 650 Balance 835 1200 Gen: NAD at rest Heart: RRR Lung: decreased breath sounds at the bases Abd: soft, nontender Ext: no edema CBC, BMP 07/17/19 05:38 07/17/19 05:38 Active Medications Acetaminophen (Tylenol -) 650 mg PO Q4H PRN PRN Reason: PAIN LEVEL 6-10 Carvedilol (Coreg -) 12.5 mg PO BID [facility] Last Admin: 07/17/19 09:30 Dose: 12.5 mg Diazepam (Valium -) 5 mg PO Q12H [facility] Last Admin: 07/17/19 02:45 Dose: Not Given Fentanyl (Sublimaze Injection -) 50 mcg IVPUSH [id number] PRN PRN Reason: PAIN-PACU ORDER X 4 DOSES ONLY Hydromorphone HCl (Hydromorphone 10 Mg/50 Ml-Ns) 10 mg SALES VENDOR SALES VENDOR [facility]; Protocol Stop: 07/23/19 13:25 Last Admin: 07/16/19 19:34 Dose: Not Given Lactated Ringer's (Lactated Ringers Solution) 1,000 mls @ 125 mls/hr IV ASDIR [facility] Last Admin: 07/16/19 21:16 Dose: 125 mls/hr Influenza Virus Vaccine Quadrival (Flulaval Quad ) 60 mcg IM .ONCE ONE Stop: 07/17/19 06:46 Insulin Aspart (Novolog Vial Sliding Scale -) 1 vial SQ [facility]; Protocol Last Admin: 07/17/19 07:03 Dose: Not Given Leflunomide (Arava -) 20 mg PO DAILY [facility] Last Admin: 07/17/19 09:31 Dose: 20 mg Lisinopril (Prinivil) 5 mg PO DAILY [facility] Last Admin: 07/17/19 09:30 Dose: 5 mg Ondansetron HCl (Zofran Injection) 4 mg IVPUSH Q6H PRN PRN Reason: NAUSEA AND/OR VOMITING Oxycodone HCl (Roxicodone -) 10 mg PO Q4H PRN PRN Reason: PAIN LEVEL 6-10 Torsemide (Demadex -) 50 mg PO DAILY [facility] Last Admin: 07/17/19 09:30 Dose: 50 mg Zolpidem Tartrate (Ambien -) 5 mg PO HS PRN PRN Reason: INSOMNIA ASSESSMENT AND PLAN: Lumbar Spinal Stenosis with Radiculopathy and Neurogenic Claudication s/p L4-S1 Laminectomies/Incidental Durotomy Repair LV Diastolic Dysfunction h/o PE/DVT Atrial Fibrillation Rheumatoid Arthritis HTN DM - pain control - incentive spirometry - rate controlled - resume anticoagulation when ok with surgery - PO as tolerated - DVT prophylaxis - can monitor on floor
[2019-07-17] MEDS ORDERED: LACTATED RINGERS SOLUTION 1,000 ML IV SCH (12:00)
[2019-07-17] MEDS: LACTATED RINGERS SOLUTION 1,000 ML IV SCH (12:00)
--- NOTE | 2019-07-17 15:52 | PN ---
Progress Note (short form) - Note Progress Note: POD #1 In ICU Awake fully orientated C/O incisional pain Original L leg pain gone Hungry Walked in the hallway No headache or fuzzy head feeling CVS Stable RESP Stable ABD Soft Passed flatus Wound Dressing dry Sealed Neuro All motors and sensory evaluation fully intact. ASSESS Doing well PLAN PAin MX As before Advance diet to soft diet PT Mobilize FWBAT Transfer to floor D/C planning 31
--- NOTE | 2019-07-17 15:56 | PATH ---
Surgical Pathology Report Patient Name: SHERI PADILLA Med. Rec. #: [id number] /Age/Gender: 1945 (Age: 74) / F Account: [id number] Location: ICU [facility] Taken: 07/16/2019 Received: 07/16/2019 Reported: 07/17/2019 Physicians: Sreekanth Borjas M.D. Specimen(s) Received A: POSTERIOR LUMBAR TISSUE B: EPIDURAL TISSUE Clinical History Stenosis lumbar Final Diagnosis A. POSTERIOR LUMBAR TISSUE, L3- S1, REVISION LAMINECTOMY/FUSION: DENSE FIBROUS TISSUE WITH RESOLVING/ORGANIZING HEMORRHAGE, ASSOCIATED WITH CHRONIC INFLAMMATION INCLUDING HEMOSIDERIN LADEN MACROPHAGES, AND REACTIVE CHANGES. B. EPIDURAL TISSUE, L3- S1, REVISION LAMINECTOMY/FUSION: BONE AND DENSE FIBROCONNECTIVE TISSUE WITH MARKED DEGENERATIVE AND REACTIVE CHANGES. RESOLVING/ORGANIZING HEMORRHAGE AND DENSE FIBROUS TISSUE WITH ASSOCIATED CHRONIC INFLAMMATION INCLUDING HEMOSIDERIN LADEN MACROPHAGES, AND REACTIVE CHANGES. Electronically Signed Florence Giordano M.D. Gross Description A. Received in formalin labeled "posterior lumbar tissue," is an 8.5 x 6.5 x 1.4 cm aggregate of multiple portions of thick ortiz fibrous tissue. Requirements Manager sections are submitted in one cassette. B. Received in formalin labeled "epidural tissue," is a 4.3 x 3.6 x 0.8 cm aggregate of multiple ortiz portions of fibrous tissue. Requirements Manager sections are submitted in one cassette. DL/07/16/2019 saudi07/16/2019
[2019-07-17] MEDS ORDERED: TETRAHYDROZOLINE HCL EYE DROPS OU PRN (16:21)
[2019-07-17] MEDS ORDERED: ARTIFICIAL TEARS (POLYVINYL ALCOHOL) OPTH DROPS OU PRN (16:50)
[2019-07-17] MEDS ORDERED: FLU VACCINE QUAD 60 MCG/0.5 ML (MDV 19-20) IM ONE (17:00)
[2019-07-18] MEDS: diazePAM 5 MG TABLET PO SCH ×2 (05:35→15:34)
[2019-07-18] MEDS: ONDANSETRON 4 MG/2 ML VIAL IVPUSH PRN ×2 (06:53→15:36)
[2019-07-18] MEDS: INSULIN SLIDING SCALE (NOVOLOG) 1 VIAL SQ SCH ×4 (07:03→21:47)
[2019-07-18 08:20] LABS: ALBUMIN 2.6 g/dl (3.4-5.0); BILIRUBIN,TOTAL 0.4 mg/dL (0.2-1); BLOOD UREA NITROGEN 18.7 mg/dL (7-18); CALCIUM 8.5 mg/dL (8.5-10.1); CREATININE 0.8 mg/dL (0.55-1.3); MAGNESIUM 1.9 mg/dL (1.8-2.4); PHOSPHOROUS 2.2 mg/dL (2.5-4.9); POTASSIUM 4.3 mmol/L (3.5-5.1); TOT PROT 5.9 g/dl (6.4-8.2)
[2019-07-18] MEDS ORDERED: PT OWN MED DRAWER 7, Y5N ONE (09:16)
[2019-07-18] MEDS: LEFLUNOMIDE 10 MG TABLET PO SCH (09:17)
[2019-07-18] MEDS: LISINOPRIL 5 MG TABLET (FP) PO SCH (09:18)
[2019-07-18] MEDS: CARVEDILOL 12.5 MG TABLET (FP) PO SCH ×2 (09:18→21:47)
[2019-07-18] MEDS: TORSEMIDE 20 MG TABLET (FP) PO SCH (09:18)
[2019-07-18] MEDS: LACTATED RINGERS SOLUTION 1,000 ML IV SCH (10:00)
--- NOTE | 2019-07-18 11:41 | PN ---
Teaching Attending Note Name of Resident: Sreekanth Ruelas ATTENDING PHYSICIAN STATEMENT I saw and evaluated the patient. I reviewed the resident's note and discussed the case with the resident. I agree with the resident's findings and plan as documented. SUBJECTIVE: Pt seen and examined in the ICU. Pain controlled. Working with PT. Tolerating PO. c/o diarrhea. OBJECTIVE: Vital Signs Period Temp Pulse Resp BP Sys/Marcelo Pulse Ox Last 24 Hr 97.9 F-98.5 F 70-80 15-24 125-152/42-66 99-100 Intake & Output 07/15/19 07/16/19 07/17/19 07/18/19 23:59 23:59 23:59 23:59 Intake Total 1625 3540 675 Output Total 790 3650 Balance 835 -110 675 Weight 92.675 kg Gen: NAD at rest Heart: RRR Lung: decreased breath sounds at the bases Abd: soft, nontender Ext: no edema CBC, BMP 07/17/19 05:38 07/18/19 06:50 Active Medications Acetaminophen (Tylenol -) 650 mg PO Q4H PRN PRN Reason: PAIN LEVEL 6-10 Artificial Tears (Artificial Tears) 1 drop OU BID PRN PRN Reason: DRY EYES Last Admin: 07/17/19 17:21 Dose: 1 drop Carvedilol (Coreg -) 12.5 mg PO BID [facility] Last Admin: 07/18/19 09:18 Dose: 12.5 mg Diazepam (Valium -) 5 mg PO Q12H [facility] Last Admin: 07/18/19 05:35 Dose: Not Given Fentanyl (Sublimaze Injection -) 50 mcg IVPUSH [id number] PRN PRN Reason: PAIN-PACU ORDER X 4 DOSES ONLY Hydromorphone HCl (Hydromorphone 10 Mg/50 Ml-Ns) 10 mg COMMUNICABLE DISEASE SPECIALIST COMMUNICABLE DISEASE SPECIALIST [facility]; Protocol Stop: 07/23/19 13:25 Last Admin: 07/17/19 13:50 Dose: Not Given Lactated Ringer's (Lactated Ringers Solution) 1,000 mls @ 75 mls/hr IV ASDIR [facility] Last Admin: 07/17/19 12:00 Dose: 75 mls/hr Insulin Aspart (Novolog Vial Sliding Scale -) 1 vial SQ ACHS [facility]; Protocol Last Admin: 07/18/19 07:03 Dose: Not Given Lactobacillus Acidophilus (Bacid -) 1 tab PO DAILY [facility] Leflunomide (Arava -) 20 mg PO DAILY [facility] Last Admin: 07/18/19 09:17 Dose: 20 mg Lisinopril (Prinivil) 5 mg PO DAILY [facility] Last Admin: 07/18/19 09:18 Dose: 5 mg Ondansetron HCl (Zofran Injection) 4 mg IVPUSH Q6H PRN PRN Reason: NAUSEA AND/OR VOMITING Last Admin: 07/18/19 06:53 Dose: 4 mg Oxycodone HCl (Roxicodone -) 10 mg PO Q4H PRN PRN Reason: PAIN LEVEL 6-10 Torsemide (Demadex -) 50 mg PO DAILY [facility] Last Admin: 07/18/19 09:18 Dose: 50 mg Zolpidem Tartrate (Ambien -) 5 mg PO HS PRN PRN Reason: INSOMNIA ASSESSMENT AND PLAN: Lumbar Spinal Stenosis with Radiculopathy and Neurogenic Claudication s/p L4-S1 Laminectomies/Incidental Durotomy Repair LV Diastolic Dysfunction h/o PE/DVT Atrial Fibrillation Rheumatoid Arthritis HTN DM - pain control - incentive spirometry - rate controlled - resume anticoagulation when ok with surgery - PO as tolerated - DVT prophylaxis - can monitor on floor
[2019-07-18] MEDS: LACTOBACILLUS ACIDOPHILUS 1 TABLET PO SCH (12:16)
--- NOTE | 2019-07-18 14:11 | PN ---
Physical Exam: SUBJECTIVE: Patient seen and examined on AM rounds. Pain well controlled. Three episodes of loose stool overnight with nausea / chills. Afebrile. Discontinued the Hines. No other focal complaints. OBJECTIVE: Vital Signs Period Temp Pulse Resp BP Sys/Marcelo Pulse Ox Last 24 Hr 97.9 F-98.2 F 73-80 15-23 130-152/42-62 99-99 GENERAL: The patient is awake, alert, and fully oriented, in no acute distress. HEAD: Normal with no signs of trauma. EYES: EOMI, no scleral icterus, no ptosis ENT: MMM NECK: Trachea midline LUNGS: Breath sounds equal, clear to auscultation bilaterally, no wheezes, no crackles, no accessory muscle use. HEART: Regular rate and rhythm, S1, S2 without murmur, rub or gallop. ABDOMEN: Soft, nontender, nondistended, normoactive bowel sounds, no guarding EXTREMITIES: 2+ pulses, warm, well-perfused, no edema. NEUROLOGICAL: Normal speech, gait not observed. sensation intact throughout PSYCH: Normal mood, normal affect. SKIN: Warm, dry Laboratory Results - last 24 hr 07/17/19 07/17/19 07/18/19 17:15 21:06 06:50 Sodium 136 Potassium 4.3 Chloride 102 Carbon Dioxide 28 Anion Gap 7 L BUN 18.7 H Creatinine 0.8 Est GFR (CKD-EPI)AfAm 84.77 Est GFR (CKD-EPI)NonAf 73.14 POC Glucometer 161 156 Random Glucose 161 H Calcium 8.5 Phosphorus 2.2 L Magnesium 1.9 Total Bilirubin 0.4 AST 19 ALT 11 L Alkaline Phosphatase 133 H Total Protein 5.9 L Albumin 2.6 L 07/18/19 07/18/19 07:01 11:24 Sodium Potassium Chloride Carbon Dioxide Anion Gap BUN Creatinine Est GFR (CKD-EPI)AfAm Est GFR (CKD-EPI)NonAf POC Glucometer 167 184 Random Glucose Calcium Phosphorus Magnesium Total Bilirubin AST ALT Alkaline Phosphatase Total Protein Albumin Active Medications Generic Name Dose Route Start Last Admin Trade Name Freq PRN Reason Stop Dose Admin Acetaminophen 650 mg 07/16/19 13:32 Tylenol - PO Q4H PRN PAIN LEVEL 6-10 Artificial Tears 1 drop 07/17/19 16:50 07/17/19 17:21 Artificial Tears OU 1 drop BID PRN Administration DRY EYES Carvedilol 12.5 mg 07/17/19 10:00 07/18/19 09:18 Coreg - PO 12.5 mg BID LISA Administration Diazepam 5 mg 07/16/19 13:30 07/18/19 05:35 Valium - PO Not Given Q12H LISA Fentanyl 50 mcg 07/16/19 12:47 Sublimaze Injection - IVPUSH [id number] PRN PAIN-PACU ORDER X 4 DOSES ONLY Hydromorphone HCl 10 mg 07/16/19 13:30 07/17/19 13:50 Hydromorphone 10 Mg/50 Ml-Ns RETAIL ADVERTISING EXECUTIVE 07/23/19 13:25 Not Given RETAIL ADVERTISING EXECUTIVE LISA Protocol Lactated Ringer's 1,000 mls @ 75 mls/hr 07/17/19 12:00 07/17/19 12:00 Lactated Ringers Solution IV 75 mls/hr ASDIR LISA Administration Insulin Aspart 1 vial 07/16/19 22:00 07/18/19 11:45 Novolog Vial Sliding Scale - SQ 2 units ACHS LISA Administration Protocol Lactobacillus Acidophilus 1 tab 07/18/19 11:15 07/18/19 12:16 Bacid - PO 1 tab DAILY LISA Administration Leflunomide 20 mg 07/17/19 10:00 07/18/19 09:17 Arava - PO 20 mg DAILY LISA Administration Lisinopril 5 mg 07/17/19 10:00 07/18/19 09:18 Prinivil PO 5 mg DAILY LISA Administration Ondansetron HCl 4 mg 07/16/19 13:30 07/18/19 06:53 Zofran Injection IVPUSH 4 mg Q6H PRN Administration NAUSEA AND/OR VOMITING Oxycodone HCl 10 mg 07/16/19 15:36 Roxicodone - PO Q4H PRN PAIN LEVEL 6-10 Torsemide 50 mg 07/17/19 10:00 07/18/19 09:18 Demadex - PO 50 mg DAILY LISA Administration Zolpidem Tartrate 5 mg 07/16/19 13:29 Ambien - PO HS PRN INSOMNIA ASSESSMENT/PLAN: 73 y/o/f with PMH HTN, DM, CHFpEF (06/19/18 EF ~50%), afib, intractable lower back pain s/p L4-L5 laminectomy, L2-S1 seroma w/ drianage, PE/DVT (10 yrs prior ; with IVC filter, on xarelto) s/p L4, L5, S1 laminectomies, facetectomies, and foraminotomies with revision L3-S1 in situ fusion POD #1. 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 #CV: - Monitor vitals - Maintain MAPs >65 - Trend H&H - Restart home HTN medication as permitted #Pulm: - Maintain O2 Sat >92% - Supplemental O2 as necessary - Encourage incentive spirometer q15min #Renal: - Hines placed 07/16, removed 07/18 - Monitor I&Os - Trend BUN/Cr - IVF as necessary - Replete lytes as needed #ID: - S/p Ancef x3 doses post op - Monitor for fever / leukocytosis - Diarrhea 3x overnight, nausea / chills, no fever #Endo: - BGM, ISS #GI: - Clear liquid diet - Zofran PRN for n/v - Nausea / 3x watery diarrhea overnight into 07/18 - Bacid started #PPX: - SCDs, TEDs - PT/OT, OOB - Holding home xarelto in immediate post-op period - Clear liquid diet, advance as tolerated - LR @75mls/hr #Dispo: - Stable for transfer to med surg - No bending, lifting (>5 lbs), or twisting for 9-12 months - Discharge planning: f/u 7-10 days after rehab discharge at [facility] office; call for appointment; Visit type - Emergency Visit Emergency Visit: No - New Patient This patient is new to me today: No - Critical Care Critical Care patient: Yes Total Critical Care Time (in minutes): 36 Critical Care Statement: The care of this patient involved high complexity decision making to prevent further life threatening deterioration of the patient 's condition and/or to evaluate & treat vital organ system(s) failure or risk of failure. ATTENDING PHYSICIAN STATEMENT I saw and evaluated the patient. I reviewed the resident's note and discussed the case with the resident. I agree with the resident's findings and plan as documented. SUBJECTIVE: OBJECTIVE: ASSESSMENT AND PLAN:
[2019-07-18 15:17] VITALS: BMI 36.1
[2019-07-18] MEDS: HYDROmorphone *PCA* 10MG/50ML DISP.SYRIN PCA SCH (19:30)
[2019-07-19] MEDS ORDERED: ONDANSETRON 4 MG/2 ML VIAL IVPUSH PRN (00:11)
[2019-07-19] MEDS ORDERED: ACETAMINOPHEN 325 MG TABLET (FP) PO PRN (00:11)
[2019-07-19] MEDS ORDERED: HYDROmorphone *PCA* 10MG/50ML DISP.SYRIN PCA SCH (00:11)
[2019-07-19] MEDS: INSULIN SLIDING SCALE (NOVOLOG) 1 VIAL SQ SCH ×4 (06:29→21:52)
[2019-07-19 08:30] LABS: BASO % 0.6 % (0-2.0); EOS % 1.3 % (0-4.5); HEMATOCRIT 37.6 % (32.4-45.2); HEMOGLOBIN 12.8 GM/dL (10.7-15.3); LYMPH % 16.5 % (8-40); MCH 30.4 pg (25.7-33.7); MCHC 34.1 g/dl (32.0-36.0); MEAN CELL VOLUME 89.1 fl (80-96); MEAN PLT VOLUME 8.1 fl (7.5-11.1); MONO % 13.4 % (3.8-10.2); NEUT % 68.2 % (42.8-82.8); PLATELET COUNT 175 K/MM3 (134-434); RBC 4.22 M/mm3 (3.60-5.2); RDW 14.8 % (11.6-15.6); WHITE BLOOD COUNT 8.8 K/mm3 (4.0-10.0)
[2019-07-19 08:57] LABS: ALBUMIN 2.5 g/dl (3.4-5.0); BILIRUBIN,TOTAL 0.5 mg/dL (0.2-1); BLOOD UREA NITROGEN 17.7 mg/dL (7-18); CALCIUM 8.5 mg/dL (8.5-10.1); CREATININE 0.8 mg/dL (0.55-1.3); MAGNESIUM 2.1 mg/dL (1.8-2.4); PHOSPHOROUS 2.5 mg/dL (2.5-4.9); POTASSIUM 3.9 mmol/L (3.5-5.1)
[2019-07-19] MEDS: CARVEDILOL 12.5 MG TABLET (FP) PO SCH ×2 (09:23→21:41)
[2019-07-19] MEDS: LISINOPRIL 5 MG TABLET (FP) PO SCH ×2 (09:23→09:28)
[2019-07-19] MEDS: diazePAM 5 MG TABLET PO SCH ×3 (09:23→21:54)
[2019-07-19] MEDS: LACTOBACILLUS ACIDOPHILUS 1 TABLET PO SCH (09:23)
[2019-07-19] MEDS: TORSEMIDE 20 MG TABLET (FP) PO SCH ×2 (09:24→09:28)
[2019-07-19] MEDS: LEFLUNOMIDE 10 MG TABLET PO SCH (09:24)
[2019-07-19] MEDS: LACTATED RINGERS SOLUTION 1,000 ML IV SCH (15:22)
[2019-07-19] MEDS: oxyCODONE HCL 5 MG TABLET PO PRN (19:57)
[2019-07-19] MEDS ORDERED: INSULIN (NOVOLOG) ASPART 100 UNITS/ML 10ML VIAL ONE (21:50)
[2019-07-19] MEDS: ZOLPIDEM TARTRATE 5 MG TABLET PO PRN (23:25)
[2019-07-20] MEDS: INSULIN SLIDING SCALE (NOVOLOG) 1 VIAL SQ SCH ×4 (06:08→21:02)
[2019-07-20] MEDS ORDERED: PT OWN MED DRAWER 7, Y5N ONE (09:19)
[2019-07-20] MEDS: TORSEMIDE 20 MG TABLET (FP) PO SCH (09:28)
[2019-07-20] MEDS: LEFLUNOMIDE 10 MG TABLET PO SCH (09:28)
[2019-07-20] MEDS: LISINOPRIL 5 MG TABLET (FP) PO SCH (09:28)
[2019-07-20] MEDS: LACTOBACILLUS ACIDOPHILUS 1 TABLET PO SCH (09:28)
[2019-07-20] MEDS: CARVEDILOL 12.5 MG TABLET (FP) PO SCH ×2 (09:28→21:02)
[2019-07-20] MEDS: diazePAM 5 MG TABLET PO SCH ×2 (09:28→23:05)
[2019-07-20] MEDS: oxyCODONE HCL 5 MG TABLET PO PRN (10:22)
--- NOTE | 2019-07-20 10:58 | PN ---
Progress Note (short form) - Note Progress Note: Patient seen and examined last night: 74F s/p L4, L5, S1 laminectomies, facetectomies, and foraminotomies with revision L3-S1 in situ fusion POD #3. Pain well controlled. Pt. reports that LLE radiculopathic pain now completely gone; RLE numbness, paresthesias persist, unchanged from pre-op status. No acute events overnight. Pt. denies overnight history of headaches, chest pain, shortness of breath, nausea, vomiting, chills, & sweats. (+) Voiding; (+) Flatus; (+) BM. Pt. ambulated today. All labs and vitals reviewed. PE: AAO x 3, NAD. T/L-Spine: Dressing saturated with sanguinous drainage; incision C/D/I. Dressing changed. B/L LE NV status unchanged. 74F s/p L4, L5, S1 laminectomies, facetectomies, and foraminotomies with revision L3-S1 in situ fusion POD #3. -Pain control: NO NSAID's; oral meds as per patient request. -DVT PPx: -Mechanical only: MARLON's, SCD's. -Chemical: None. -Incentive spirometry q15 min. -Advance diet as tolerated. -PT/OT/Rehab, OOB. -WBAT B/L LE. -No bending, lifting (>5 lbs), or twisting for 3-6 months. -Care per medical hospitalist teams. -Discharge planning: pt. requires home health aid (minimum 12 hours/day), visiting nurse service (3 days/week), and home physical therapy (5 days/week); f /u 7-10 days after discharge at [facility] office; call for appointment; . -Will follow. Luis Borjas MD (Orthopaedic Surgery).
[2019-07-20] MEDS ORDERED: INSULIN (NOVOLOG) ASPART 100 UNITS/ML 10ML VIAL ONE ×2 (11:45→20:54)
[2019-07-20] MEDS: FAMOTIDINE 20 MG TABLET PO SCH (23:22)
[2019-07-20] MEDS: ZOLPIDEM TARTRATE 5 MG TABLET PO PRN (23:22)
[2019-07-21] MEDS: INSULIN SLIDING SCALE (NOVOLOG) 1 VIAL SQ SCH ×3 (06:25→16:39)
[2019-07-21] MEDS ORDERED: INSULIN (NOVOLOG) ASPART 100 UNITS/ML 10ML VIAL ONE ×2 (06:26→11:49)
[2019-07-21] MEDS: LISINOPRIL 5 MG TABLET (FP) PO SCH (09:41)
[2019-07-21] MEDS: LACTOBACILLUS ACIDOPHILUS 1 TABLET PO SCH (09:42)
[2019-07-21] MEDS: TORSEMIDE 20 MG TABLET (FP) PO SCH (09:42)
[2019-07-21] MEDS: CARVEDILOL 12.5 MG TABLET (FP) PO SCH (09:42)
[2019-07-21] MEDS: FAMOTIDINE 20 MG TABLET PO SCH (09:42)
[2019-07-21] MEDS: diazePAM 5 MG TABLET PO SCH (09:42)
[2019-07-21] MEDS: LEFLUNOMIDE 10 MG TABLET PO SCH (09:49)
[2019-07-21 15:17] VITALS: BP 113/73; PULSE 97; TEMP 98
== END 2019-07-21 19:15 | disposition home health service (06) | DRG 460 ==
LOC: JSAMEDAYSX 09:16 → JICU 17:18 → J6S 07-19 00:58
PROVIDERS: ADMIT Orthopaedic Surgery Orthopaedic Surgery of the Spine; ATTEND Orthopaedic Surgery Orthopaedic Surgery of the Spine
PROC: 0SG3071 Fusion of Lumbosacral Joint with Autologous Tissue Substitute, Posterior Approach, Posterior Column, Open Approach (ICD-10-PCS; 2019-07-16)
PROC: 00Q20ZZ Repair Dura Mater, Open Approach (ICD-10-PCS; 2019-07-16)
PROC: 4A1104G Monitoring of Peripheral Nervous Electrical Activity, Intraoperative, Open Approach (ICD-10-PCS; 2019-07-16)
PROC: 4A11X4G Monitoring of Peripheral Nervous Electrical Activity, Intraoperative, External Approach (ICD-10-PCS; 2019-07-16)
PROC: 0SG0071 Fusion of Lumbar Vertebral Joint with Autologous Tissue Substitute, Posterior Approach, Posterior Column, Open Approach (ICD-10-PCS; principal; 2019-07-16 08:00)
DX: M48.062 Spinal stenosis, lumbar region with neurogenic claudication (principal); I50.32 Chronic diastolic (congestive) heart failure; G96.11 Dural tear; M48.07 Spinal stenosis, lumbosacral region; M54.16 Radiculopathy, lumbar region; M53.2X6 Spinal instabilities, lumbar region; M54.17 Radiculopathy, lumbosacral region; I11.0 Hypertensive heart disease with heart failure; E11.9 Type 2 diabetes mellitus without complications; I48.91 Unspecified atrial fibrillation; Z86.711 Personal history of pulmonary embolism; Z79.01 Long term (current) use of anticoagulants; Z86.718 Personal history of other venous thrombosis and embolism; M06.9 Rheumatoid arthritis, unspecified; Z88.0 Allergy status to penicillin; Z79.4 Long term (current) use of insulin
CPT/HCPCS: 36415; 76000-TC-FY; 80053; 82962; 83735; 84100; 85025; 85027; 86850; 86891; 86900; 86901; 87070; 87075; 87205; 88304-TC; 94760; 97116-GP; 97163-GP; G0008; J0131; J1644; Q2036

== ENCOUNTER 2019-09-07 11:21 | Inpatient (IN) | payer OTHER ==
[2019-09-07] MEDS ORDERED: HYDROmorphone HCL CARPU-JECT 2 MG/1 ML DISP.SYRIN IVPUSH ONE (12:36)
[2019-09-07] MEDS ORDERED: HYDROmorphone HCl 2 MG/ML VIAL ONE (13:11)
--- NOTE | 2019-09-07 13:19 | PDOC ---
Documentation entered by Karthikeyan Wood SCRIBE, acting as scribe for Nae Rodriguez MD. Nae Rodriguez MD: This documentation has been prepared by the Israel zhong Xhesika, SCRIBE, under my direction and personally reviewed by me in its entirety. I confirm that the documentation accurately reflects all work, treatment, procedures, and medical decision making performed by me. History of Present Illness - General Chief Complaint: Pain Stated Complaint: BACK PAIN Time Seen by Provider: 09/07/19 11:58 History Source: Patient Exam Limitations: No Limitations - History of Present Illness Initial Comments: 09/07/19 12:30 74yo F with PMH HTN, DM, CHFpEF (06/19/18 EF ~50%), afib, intractable lower back pain s/p L4-L5 laminectomy, L2-S1 seroma w/ drainage, PE/DVT (10 yrs prior ; with IVC filter, on xarelto) now s/p L4, L5, S1 laminectomies, facetectomies, and foraminotomies with revision L3-S1 in situ fusion from July 2019, who presents to the ED with 1 month of gradually worsening R hip pain. Patient describes the pain as sharp, stabbing pain, lasting approximately 10-20 seconds before resolving and occurring again. Patient notes her pain radiates to her back and down the R leg associated with weakness, numbness and tingling in her R leg, and worsened with touch/certain leg movements. Pt states she needs to place pillows between her legs to get slightly comfortable. Pt denies any recent falls or trauma. Pt notes she took all her medication this morning including her percocet. Denies fever, chills, chest pain, SOB, palpitation, dizziness, N, V, D, abdominal pain, bladder and bowel problems, leg swelling/pain, rash. No new changes in medications. Allergies: levofloxacin, methotrexate, penicillins, doxycycline Past Medical History/PSH: HTN, DM, CHFpEF (06/19/18 EF ~50%), afib, intractable lower back pain s/p L4-L5 laminectomy, L2-S1 seroma w/ drainage, PE/DVT (10 yrs prior; with IVC filter, on xarelto) now s/p L4, L5, S1 laminectomies, facetectomies, and foraminotomies with revision L3-S1 in situ fusion Social history: lives home, home health aid Meds: as documented in EMR Family history: noncontributory Ortho: Dr Borjas 09/07/19 16:01 09/07/19 17:14 Past History - Past Medical History Allergies/Adverse Reactions: Allergies Allergy/AdvReac Type Severity Reaction Status Date / Time levofloxacin [From Levaquin] Allergy Severe ANAPHYLAXIS Verified 09/07/19 11:37 methotrexate Allergy Severe Swelling Verified 09/07/19 11:37 Penicillins Allergy Mild Rash Verified 09/07/19 11:37 doxycycline Allergy Unknown Verified 09/07/19 11:37 bumetanide [From Bumex] Allergy Rash Verified 09/07/19 11:37 morphine AdvReac Mild Itching Verified 09/07/19 11:37 piperacillin sodium AdvReac Mild Itching Verified 09/07/19 11:37 [From Zosyn] tazobactam sodium AdvReac Mild Itching Verified 09/07/19 11:37 [From Zosyn] Home Medications: Ambulatory Orders Gabapentin 300 mg PO BID 03/04/14 Oxycodone HCl/Acetaminophen [Percocet 10-325 mg Tablet] 1 tab PO Q6H PRN Insulin Lispro Protamin/Lispro [Humalog Mix 75-25 Kwikpen] 22 unit SQ ACDIN 04/23 Zolpidem Tartrate [Ambien] 10 mg PO HS PRN 06/01/17 Rivaroxaban [Xarelto -] 20 mg PO DAILY 06/22/18 Leflunomide [Arava] 20 mg PO DAILY 07/26/18 Torsemide 50 mg PO DAILY 07/26/18 Baclofen 10 mg PO Q12H 07/16/19 Carvedilol [Coreg -] 25 mg PO DAILY 07/16/19 Lisinopril 5 mg PO DAILY 07/16/19 Pregabalin [Lyrica -] 75 mg PO TID 07/16/19 Anemia: No Asthma: No Cancer: No Cardiac Disorders: Yes CVA: No COPD: No CHF: Yes DVT: Yes Dementia: No Diabetes: Yes GI Disorders: No Disorders: No HTN: Yes Hypercholesterolemia: Yes Liver Disease: No Seizures: No Thyroid Disease: No - Surgical History Abdominal Surgery: Yes (GASTRIC BANDING) Appendectomy: No Cardiac Surgery: No Cholecystectomy: Yes Lung Surgery: No Neurologic Surgery: Yes (4 BACK FUSIONS) Orthopedic Surgery: Yes (R TKR 2004;R SHOULDER SX , L. KNEE SURGERY-2013, R THR W 5 MORE SURGERIES) - Immunization History Immunization Up to Date: Yes - Psycho Social/Smoking Cessation Hx Smoking Status: No Smoking History: Unknown if ever smoked Have you smoked in the past 12 months: No Number of Cigarettes Smoked Daily: 0 If you are a former smoker, when did you quit?: 40 YRS Hx Alcohol Use: No Drug/Substance Use Hx: No Substance Use Type: None Hx Substance Use Treatment: No Review of Systems - Review of Systems Able to Perform ROS?: Yes Comments:: 09/07/19 12:31 Constitutional: no fevers or chills. No weakness HEENT: no headache or dizziness. No congestion. No visual/hearing disturbances. CVS: no cp or syncope. Resp: no sob. No cough. Gastrointestinal: no abdominal pain, nausea, vomiting, diarrhea. Genitourinary: no urinary sx, hematuria. MUSCULOSKELETAL: +R hip pain radiating down R leg. +Back pain. SKIN: no redness or skin changes, no discharge, no rash. No wounds. Hematologic: no easy bruising/bleeding. NEUROLOGIC: No headache, dizziness, LOC or altered mental status. +right lower extremity weakness, numbness or tingling. Psych: no anxiety or depression Allergic/Immunologic: no allergies All other systems reviewed and negative, or as documented in HPI. 09/07/19 13:20 *Physical Exam - Vital Signs Last Vital Signs Temp Pulse Resp BP Pulse Ox 97.3 F L 84 16 111/76 99 09/07/19 11:25 09/07/19 11:25 09/07/19 11:25 09/07/19 11:25 09/07/19 11:25 - Physical Exam 09/07/19 12:32 General: awake and alert, NAD. HEENT: NCAT, PERRL, EOMI, clear conjunctiva, anicteric, moist mucus membranes, clear oropharynx, no oral lesions.. Neck: neck supple, FROM Resp: CTAB, normal and even respirations, no respiratory distress CVS: RRR, no murmurs, 2+ peripheral pulses throughout, no peripheral edema Abdomen: +pannus with skin breakdown, soft, NTND, no rebound or guarding. Back: +midline vertical scar, +erythema at surgical site. no purulence. MSK: +R buttock tenderness, no edema, TAYLOR x4, ROM intact. No clubbing or cyanosis. normal bulk and tone. soft compartment. no calf tenderness. 5/5 plantar and dorsiflexion. no laxity at knee jt. 2+ DP pulses bilaterally. +decreased sensation to sharp prick to L3-S1 in RLE. Negative SLR bilaterally. Extremities: +limited ROM secondary to pain Neuro: alert, oriented appropriately; speech clear. +decreased sensation to prick to L3-S2 distribution in RE in [id number] kearns and foot. Psych: Calm and cooperative Skin: warm and well perfused, cap refill <2 sec, normal color 09/07/19 13:21 Heart Score/ECG Review #1 ECG reviewed & interpreted by me at: 11:40 General ECG Interpretation: Sinus Rhythm, Normal Rate, Normal Intervals Compared to previous ECG there are: No significant change 09/07/19 13:19 EKG normal sinus rhythm 84 bpm, no interval abnormalities, narrow QRS, ST and T wave segments and morphology normal. Nonspecific T wave abnormalities ED Treatment Course - LABORATORY CBC & Chemistry Diagram: 09/08/19 13:58 09/07/19 13:00 Medical Decision Making - Medical Decision Making 09/07/19 13:20 Vital Signs Temp Pulse Resp BP Pulse Ox 97.3 F L 84 16 111/76 99 09/07/19 11:25 09/07/19 11:25 09/07/19 11:25 09/07/19 11:25 09/07/19 11:25 DDx back pain/leg pain: back strain, lumbago, sciatica, radiculopathy, spinal stenosis. Muscle spasm. Lumbar radiculopathy. there is history of recent surgical procedure 1 month ago for degenerative disc disease in L spine, +sensory changes in RLE will need MRI spine to eval for cord compression or cauda equina, but could also be radiculopathy/nerve rot compression no other features such as fevers/malignancy. no recent spinal epidural procedure. no urinary retention or incontinence pain control, dilaudid for pain control, toradol xray hip/pelvis with hip replacement and hardware in place, located within acetabulum, which is high riding; degenerative disc disease and bony changes, similar appearing to prior pelvis CT/MRI; old left IT bony deformity admit for intractible back pain, right hip pain, Dr Borjas consulted - agree with plan, results discussed, will require MRI imaging of back/hip and LLE to eval for source of acute on chronic pain admitting to hospitalist, Dr Nesbitt service 09/07/19 13:24 09/07/19 16:03 09/07/19 17:15 09/08/19 14:42 Discharge - Discharge Information Problems reviewed: Yes Clinical Impression/Diagnosis: Paresthesia of right lower extremity, Right hip pain Back pain Qualifiers: Back pain location: low back pain Chronicity: unspecified Back pain laterality : right Sciatica presence: without sciatica Qualified Code(s): M54.5 - Low back pain Condition: Guarded - Admission Yes - Follow up/Referral - Patient Discharge Instructions - Post Discharge Activity
[2019-09-07] MEDS ORDERED: LIDOCAINE 5% TOPICAL PATCH TP ONE (13:29)
[2019-09-07] MEDS ORDERED: LIDOCAINE PATCH REMOVAL MC ONE (13:29)
[2019-09-07] MEDS ORDERED: KETOROLAC TROMETHAMINE 15 MG/ML VIAL IVPUSH ONE (13:29)
[2019-09-07] MEDS ORDERED: CYCLOBENZAPRINE HCL 5 MG TABLET PO ONE (13:29)
[2019-09-07] MEDS ORDERED: CYCLOBENZAPRINE HCL 10 MG TABLET (FP) ONE (13:49)
[2019-09-07] MEDS ORDERED: LIDOCAINE 5% TOPICAL PATCH ONE (13:50)
[2019-09-07] MEDS ORDERED: KETOROLAC TROMETHAMINE 15 MG/ML VIAL ONE (13:50)
[2019-09-07 14:02] LABS: BASO % 0.8 % (0-2.0); EOS % 2.5 % (0-4.5); HEMATOCRIT 30.7 % (32.4-45.2); MCH 28.6 pg (25.7-33.7); MCHC 32.7 g/dl (32.0-36.0); MEAN CELL VOLUME 87.6 fl (80-96); MEAN PLT VOLUME 7.2 fl (7.5-11.1); MONO % 10.3 % (3.8-10.2); NEUT % 63.4 % (42.8-82.8); PLATELET COUNT 337 K/MM3 (134-434); RDW 14.4 % (11.6-15.6); WHITE BLOOD COUNT 9.3 K/mm3 (4.0-10.0)
[2019-09-07 14:38] LABS: URINE APPEARANCE CLOUDY; URINE BILIRUBIN 1+ (NEGATIVE); URINE COLOR DK YELLOW; URINE GLUCOSE (UA) TRACE (NEGATIVE); URINE KETONE TRACE (NEGATIVE); URINE LEUK ESTERASE NEGATIVE (NEGATIVE); URINE NITRITE NEGATIVE (NEGATIVE); URINE PROTEIN TRACE (NEGATIVE)
[2019-09-07 14:39] LABS: ALBUMIN 2.4 g/dl (3.4-5.0); BILIRUBIN,TOTAL 0.3 mg/dL (0.2-1); BLOOD UREA NITROGEN 22.6 mg/dL (7-18); CALCIUM 8.7 mg/dL (8.5-10.1); CREATININE 1.2 mg/dL (0.55-1.3); POTASSIUM 5.2 mmol/L (3.5-5.1); TOT PROT 6.7 g/dl (6.4-8.2)
--- NOTE | 2019-09-07 14:57 | EKG ---
Test Reason : Blood Pressure : / mmHG Vent. Rate : 084 BPM Atrial Rate : 084 BPM P-R Int : 138 ms QRS Dur : 076 ms QT Int : 390 ms P-R-T Axes : 051 024 043 degrees QTc Int : 460 ms SINUS RHYTHM WITH OCCASIONAL PREMATURE VENTRICULAR COMPLEXES NONSPECIFIC ST ABNORMALITY ABNORMAL ECG WHEN COMPARED WITH ECG OF 20-AUG-2018 11:47, PREMATURE VENTRICULAR COMPLEXES ARE NOW PRESENT NONSPECIFIC T WAVE ABNORMALITY NO LONGER EVIDENT IN LATERAL LEADS Confirmed by ORIANA PELAEZ MD ([id number]) on 09/07/2019 2:57:01 PM Referred By: Confirmed By:ORIANA PELAEZ MD
[2019-09-07] MEDS ORDERED: INSULIN (NOVOLOG) ASPART 100 UNITS/ML 10ML VIAL SQ ONE (16:17)
[2019-09-07] MEDS ORDERED: INSULIN (NOVOLOG) ASPART 100 UNITS/ML 10ML VIAL ONE (17:36)
--- NOTE | 2019-09-07 19:21 | PN ---
Progress Note (short form) - Note Progress Note: 74F well known to my practice presented to [facility] ED today with acute spontaneous onset right tibial pain. Pt. reports previous history right tibial infection. Pt. was recently seen in my office and diagnosed with new onset right iliotibial band syndrome/trochanteric bursitis. Pt. has been walking independently at home with a front frame rolling walker. Original lower extremity (S1) radiculopathy has completely resolved since most recent lumbar spinal surgery. Her chief complain at this time is right tibial pain. Pain improved following administration of Dilaudid. Pain well controlled at the time of my assessment. Pt. denies recent history of headaches, chest pain, shortness of breath, nausea , vomiting, chills, & sweats. (+) Voiding; (+) Flatus; (+) BM. Tolerating diet. Walked in hallway. Gait analysis: Antalgic limp favoring left lower extremity. All labs and vitals reviewed. PE: AAO x 3, NAD. R-Leg: Skin C/D/I. (+) Tenderness to palpation over mid-tibia anteriorly. No pes bursitis. Full, painless ROM knee, ankle, hindfoot, midfoot, forefoot. NVI distally. AP Pelvis & R Hip R-Rays: Cementless right total hip replacement components intact & in place with good overall alignment. Acetabular screws, femoral cables and strut graft in place. Osteolysis of greater trochanter. Please refer to radiology report for official read. B/L LE Duplex: Negative for DVT. A/P: 74F new onset right tibial pain. -Obtain AP/lateral x-rays right tibia. -Obtain MRI right tib-fib (leg). -Pain control: Dilaudid PRN. -DVT PPx: -Chemical: 81mg PO qD. -Mechanical: MARLON's, SCD's. -Incentive spirometry q15 min. -PT/OT/Rehab, OOB. -WBAT RLE w/rolling walker; ambulatory assistance as needed. -Diet as tolerated. -Care per medical hospitalist team. -Discharge planning; [facility] after hospital discharge; call for appointment; . -Will follow. Sreekanth Borjas MD (Orthopaedic Surgery).
[2019-09-07] MEDS ORDERED: ACETAMINOPHEN 1000 MG/100 ML VIAL (NON FORMULARY) IVPB ONE (20:09)
[2019-09-07] MEDS ORDERED: ZOLPIDEM TARTRATE 5 MG TABLET PO PRN (23:34)
[2019-09-07] MEDS: HYDROmorphone HCl 2 MG/ML VIAL IVPB PRN (23:49)
[2019-09-08] MEDS: HYDROmorphone HCl 2 MG/ML VIAL IVPB PRN ×3 (09:26→22:55)
--- NOTE | 2019-09-08 11:27 | PN ---
Progress Note (short form) - Note Progress Note: Patient remains symptomatic with R tibial tenderness Awaiting scans as outlined
--- NOTE | 2019-09-08 11:33 | HP ---
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 Denies fever , chills, chest pain, SOB, palpitation, dizziness, N, V, D, abdominal pain, bladder and bowel problems, leg swelling/pain, rash. No new changes in medications. Patient admitted to Medicine service for orthopedic evaluation. VS otherwise stable. PE VSS GA uncomfortable, lying in stretcher, AAox3, mild distress, c/o pain HEENT NC/AT, EOMI, dry MM, neck supple Chest CTAB, no crackles, no wheezing CVS S1, S2+, RRR, no m/r/g Abd Soft, NT, ND, BS+ Ext No LE edema, no calf tenderness, R hip pain on manipulation Microbiology 09/07/19 14:05 Urine - Urine Clean Catch Urine Culture - Final Normal Urogenital [place] Home Medications Medication Instructions Recorded Gabapentin 300 mg PO BID 03/04/14 Oxycodone HCl/Acetaminophen 1 tab PO Q6H PRN 03/04/14 [Percocet 10-325 mg Tablet] Insulin Lispro Protamin/Lispro 22 unit SQ ACDIN 12/15/15 [Humalog Mix 75-25 Kwikpen] Zolpidem Tartrate [Ambien] 10 mg PO HS PRN 06/01/17 Rivaroxaban [Xarelto -] 20 mg PO DAILY 06/22/18 Leflunomide [Arava] 20 mg PO DAILY 07/26/18 Torsemide 50 mg PO DAILY 07/26/18 Baclofen 10 mg PO Q12H 07/16/19 Carvedilol [Coreg -] 25 mg PO DAILY 07/16/19 Lisinopril 5 mg PO DAILY 07/16/19 Pregabalin [Lyrica -] 75 mg PO TID 07/16/19 A/P: 74 F h/o multiple back surgeries, last 07/2019, admitted for refractory R hip pain shooting down R leg, following with spine surgery who are recommending MRI/ CT imaging for R tibial pain. R tibial pain (+) Voiding; (+) Flatus; (+) BM pain improved w/ Dilaudid, cont. muscle relaxants, Gabapentin for neuropathy MRI/CT of LE when available aggressive bowel regimen, DVT ppx with Xarelto Dr. Borjas: Ortho service h/o DVT/PE Cont. Xarelto 20mg daily /TEDs has IVC filter HFpEF not in acute exacverbation, in fact relatively volume depleted hold Torsemide, hold IVF, PO hydration for now, cont. to monitor lytes and fluid status HTN cont. BP meds as tolerated Insomnia restart Zolpidem Hypoalbuminemia due to malnourishment, poor protein intake Dietary consult, Na restricted diet T2DM ISS, basal insulin as needed to titrate F/S 140-180. Afib on AC cont. AC, BB, rate controlled DVT ppx: Xarelto FEN: no IVF/daily chem/Na restricted diet Med-Surg Visit type - Emergency Visit Emergency Visit: Yes ED Registration Date: 09/07/19 Care time: The patient presented to the Emergency Department on the above date and was hospitalized for further evaluation of their emergent condition. - New Patient This patient is new to me today: Yes Date on this admission: 09/08/19 - Critical Care Critical Care patient: No
[2019-09-08] MEDS ORDERED: BACLOFEN 10 MG TABLET (FP) PO PRN (11:43)
[2019-09-08] MEDS ORDERED: TORSEMIDE 20 MG TABLET (FP) PO SCH (11:45)
[2019-09-08] MEDS ORDERED: CARVEDILOL 25 MG TABLET (FP) PO SCH (11:45)
[2019-09-08] MEDS ORDERED: ACETAMINOPHEN 325 MG TABLET (FP) PO PRN (12:09)
[2019-09-08] MEDS ORDERED: oxyCODONE HCL 5 MG TABLET PO PRN (12:09)
[2019-09-08] MEDS ORDERED: TORSEMIDE 40 MG, TORSEMIDE 10 MG PO SCH (12:30)
[2019-09-08] MEDS: CARVEDILOL 12.5 MG TABLET (FP) PO SCH ×2 (12:34→23:00)
[2019-09-08] MEDS: GABAPENTIN 300 MG CAPSULE PO SCH ×2 (12:34→23:00)
[2019-09-08] MEDS: LISINOPRIL 5 MG TABLET (FP) PO SCH (12:34)
[2019-09-08] MEDS: LEFLUNOMIDE 10 MG TABLET PO SCH (13:39)
[2019-09-08] MEDS ORDERED: PT OWN MED DRAWER 7, Y5N ONE (13:42)
[2019-09-08 14:23] LABS: BASO % 0.6 % (0-2.0); EOS % 2.5 % (0-4.5); HEMATOCRIT 28.3 % (32.4-45.2); HEMOGLOBIN 9.3 GM/dL (10.7-15.3); LYMPH % 19.6 % (8-40); MCH 28.5 pg (25.7-33.7); MCHC 32.9 g/dl (32.0-36.0); MEAN CELL VOLUME 86.6 fl (80-96); MEAN PLT VOLUME 6.7 fl (7.5-11.1); MONO % 9.9 % (3.8-10.2); NEUT % 67.4 % (42.8-82.8); PLATELET COUNT 333 K/MM3 (134-434); RBC 3.27 M/mm3 (3.60-5.2); RDW 14.4 % (11.6-15.6); WHITE BLOOD COUNT 8.1 K/mm3 (4.0-10.0)
[2019-09-08 14:50] LABS: ALBUMIN 2.2 g/dl (3.4-5.0); BILIRUBIN,TOTAL 0.4 mg/dL (0.2-1); BLOOD UREA NITROGEN 26.5 mg/dL (7-18); CALCIUM 8.6 mg/dL (8.5-10.1); POTASSIUM 4.6 mmol/L (3.5-5.1); TOT PROT 6.3 g/dl (6.4-8.2)
--- NOTE | 2019-09-08 15:22 | PN ---
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 Denies fever , chills, chest pain, SOB, palpitation, dizziness, N, V, D, abdominal pain, bladder and bowel problems, leg swelling/pain, rash. No new changes in medications. Patient admitted to Medicine service for orthopedic evaluation. VS otherwise stable. PE GA uncomfortable, lying in stretcher, AAox3, mild distress, c/o pain in legs HEENT NC/AT, EOMI, dry MM, neck supple Chest CTAB, no crackles, no wheezing CVS S1, S2+, RRR, no m/r/g Abd Soft, NT, ND, BS+ Ext No LE edema, no calf tenderness, R hip pain on manipulation Vital Signs - 24 hr 09/07/19 09/07/19 09/07/19 18:02 19:00 23:18 Temperature 98.0 F 99.1 F Pulse Rate 81 89 Pulse Rate [ 80 Right] Respiratory 18 18 20 Rate Blood Pressure 116/59 L 110/59 L Blood Pressure 115/56 L [Left Arm] O2 Sat by Pulse 98 Oximetry (%) 09/08/19 09/08/19 09/08/19 00:22 06:00 09:00 Temperature 98.9 F Pulse Rate 77 Pulse Rate [ Right] Respiratory 20 Rate Blood Pressure 115/55 L Blood Pressure [Left Arm] O2 Sat by Pulse 97 97 Oximetry (%) 09/08/19 09/08/19 10:00 12:30 Temperature Pulse Rate 84 80 Pulse Rate [ Right] Respiratory 18 16 Rate Blood Pressure 120/70 124/60 Blood Pressure [Left Arm] O2 Sat by Pulse Oximetry (%) Microbiology 09/07/19 14:05 Urine - Urine Clean Catch Urine Culture - Final Normal Urogenital [place] Laboratory Tests 09/07/19 09/07/19 09/07/19 13:00 13:00 14:05 WBC 9.3 RBC 3.50 L Hgb 10.0 L Hct 30.7 L D MCV 87.6 MCH 28.6 MCHC 32.7 RDW 14.4 Plt Count 337 D MPV 7.2 L D Absolute Neuts (auto) 5.9 Neutrophils % 63.4 Lymphocytes % 23.0 D Monocytes % 10.3 H Eosinophils % 2.5 D Basophils % 0.8 Nucleated RBC % 0 Sodium 136 Potassium 5.2 H Chloride 103 Carbon Dioxide 28 Anion Gap 5 L BUN 22.6 H Creatinine 1.2 Est GFR (CKD-EPI)AfAm 51.92 Est GFR (CKD-EPI)NonAf 44.80 POC Glucometer Random Glucose 211 H Calcium 8.7 Total Bilirubin 0.3 AST 15 ALT 14 Alkaline Phosphatase 122 H Total Protein 6.7 Albumin 2.4 L Urine Color Dk yellow Urine Appearance Cloudy Urine pH 5.0 Ur Specific [place] 1.028 Urine Protein Trace Urine Glucose (UA) Trace Urine Ketones Trace H Urine Blood Negative Urine Nitrite Negative Urine Bilirubin 1+ H Urine Urobilinogen 1.0 Ur Leukocyte Esterase Negative 09/07/19 09/08/19 09/08/19 17:39 13:58 13:58 WBC 8.1 RBC 3.27 L Hgb 9.3 L Hct 28.3 L MCV 86.6 MCH 28.5 MCHC 32.9 RDW 14.4 Plt Count 333 MPV 6.7 L Absolute Neuts (auto) 5.5 Neutrophils % 67.4 Lymphocytes % 19.6 Monocytes % 9.9 Eosinophils % 2.5 Basophils % 0.6 Nucleated RBC % 0 Sodium 135 L Potassium 4.6 Chloride 103 Carbon Dioxide 27 Anion Gap 5 L BUN 26.5 H Creatinine 1.0 Est GFR (CKD-EPI)AfAm 64.73 Est GFR (CKD-EPI)NonAf 55.85 POC Glucometer 156 Random Glucose 239 H Calcium 8.6 Total Bilirubin 0.4 AST 12 L ALT 13 Alkaline Phosphatase 121 H Total Protein 6.3 L Albumin 2.2 L Urine Color Urine Appearance Urine pH Ur Specific [place] Urine Protein Urine Glucose (UA) Urine Ketones Urine Blood Urine Nitrite Urine Bilirubin Urine Urobilinogen Ur Leukocyte Esterase Home Medications Medication Instructions Recorded Gabapentin 300 mg PO BID 03/04/14 Oxycodone HCl/Acetaminophen 1 tab PO Q6H PRN 03/04/14 [Percocet 10-325 mg Tablet] Insulin Lispro Protamin/Lispro 22 unit SQ ACDIN 12/15/15 [Humalog Mix 75-25 Kwikpen] Zolpidem Tartrate [Ambien] 10 mg PO HS PRN 06/01/17 Rivaroxaban [Xarelto -] 20 mg PO DAILY 06/22/18 Leflunomide [Arava] 20 mg PO DAILY 07/26/18 Torsemide 50 mg PO DAILY 07/26/18 Baclofen 10 mg PO Q12H 07/16/19 Carvedilol [Coreg -] 25 mg PO DAILY 07/16/19 Lisinopril 5 mg PO DAILY 07/16/19 Pregabalin [Lyrica -] 75 mg PO TID 07/16/19 Current Medications Generic Name Dose Route Start Last Admin Trade Name Freq PRN Reason Stop Dose Admin Acetaminophen 325 mg 09/08/19 12:09 Tylenol - PO Q6H PRN PAIN 6-10 Baclofen 10 mg 09/08/19 11:43 09/08/19 13:43 Lioresal - PO 10 mg BID PRN Administration MUSCLE SPASMS Carvedilol 12.5 mg 09/08/19 12:00 09/08/19 12:34 Coreg - PO 12.5 mg BID LISA Administration Gabapentin 300 mg 09/08/19 11:45 09/08/19 12:34 Neurontin - PO 300 mg BID LISA Administration Hydromorphone HCl 2 mg 09/07/19 21:07 09/08/19 09:26 Dilaudid Vial - IVPB 2 mg Q6H PRN Administration PAIN LEVEL 4-8 Insulin Aspart 1 vial 09/08/19 16:30 Novolog Vial Sliding Scale - SQ ACHS [facility] Protocol Leflunomide 10 mg 09/08/19 11:45 09/08/19 13:39 Arava - PO 10 mg DAILY LISA Administration Lisinopril 5 mg 09/08/19 11:45 09/08/19 12:34 Prinivil PO 5 mg DAILY LISA Administration Oxycodone HCl 5 mg 09/08/19 12:09 Roxicodone - PO Q6H PRN PAIN 6-10 Rivaroxaban 20 mg 09/08/19 18:00 Xarelto PO DAILY@1800 [facility] Torsemide 40 mg/ Torsemide 10 50 mg 09/08/19 12:30 02/01/20 13:36 mg PO Not Given DAILY LISA Zolpidem Tartrate 5 mg 09/08/19 22:00 Ambien - PO HS PRN INSOMNIA A/P: 74 F h/o multiple back surgeries, last 07/2019, admitted for refractory R hip pain shooting down R leg, following with spine surgery who are recommending MRI/ CT imaging for R tibial pain. R tibial pain (+) Voiding; (+) Flatus; (+) BM pain improved w/ Dilaudid, cont., restart muscle relaxants, Gabapentin for neuropathy MRI/CT of LE when available aggressive bowel regimen, DVT ppx with Xarelto Dr. Borjas: Ortho service h/o DVT/PE Cont. Xarelto 20mg daily /TEDs has IVC filter HFpEF not in acute exacverbation, in fact relatively volume depleted hold Torsemide, hold IVF, PO hydration for now, cont. to monitor lytes and fluid status HTN cont. BP meds as tolerated Insomnia restart Zolpidem Hypoalbuminemia 2/2 poor intake, malnourishment Dietary consult T2DM ISS, basal insulin as needed to titrate F/S 140-180. Afib on AC cont. AC, BB, rate controlled DVT ppx: Xarelto FEN: no IVF/daily chem/Na restricted diet Med-Surg Visit type - Emergency Visit Emergency Visit: Yes ED Registration Date: 09/07/19 Care time: The patient presented to the Emergency Department on the above date and was hospitalized for further evaluation of their emergent condition. - New Patient This patient is new to me today: No - Critical Care Critical Care patient: No - Discharge Referral Referred to [facility] Med P.C.: No
[2019-09-08] MEDS ORDERED: HYDROmorphone HCl 2 MG/ML VIAL IVPUSH ONE (16:15)
[2019-09-08] MEDS ORDERED: HYDROmorphone HCl 2 MG/ML VIAL IVPB ONE ×2 (16:21→16:30)
[2019-09-08] MEDS ORDERED: ACETAMINOPHEN 1000 MG/100 ML VIAL (NON FORMULARY) IVPB ONE (16:21)
[2019-09-08] MEDS: RIVAROXABAN 20 MG TABLET PO SCH (17:28)
[2019-09-08] MEDS: INSULIN SLIDING SCALE (NOVOLOG) 1 VIAL SQ SCH ×2 (17:37→23:09)
[2019-09-08] MEDS ORDERED: ZOLPIDEM TARTRATE 5 MG TABLET PO PRN (22:00)
[2019-09-09] MEDS: HYDROmorphone HCl 2 MG/ML VIAL IVPB PRN ×2 (06:50→21:29)
[2019-09-09] MEDS: INSULIN SLIDING SCALE (NOVOLOG) 1 VIAL SQ SCH ×4 (06:57→21:38)
[2019-09-09] MEDS ORDERED: INSULIN (NOVOLOG) ASPART 100 UNITS/ML 10ML VIAL ONE (08:23)
[2019-09-09] MEDS ORDERED: PT OWN MED DRAWER 7, Y5N ONE (11:16)
[2019-09-09] MEDS: CARVEDILOL 12.5 MG TABLET (FP) PO SCH ×2 (11:21→21:30)
[2019-09-09] MEDS: GABAPENTIN 300 MG CAPSULE PO SCH ×2 (11:21→21:30)
[2019-09-09] MEDS: LISINOPRIL 5 MG TABLET (FP) PO SCH (11:21)
[2019-09-09] MEDS: LEFLUNOMIDE 10 MG TABLET PO SCH (11:22)
[2019-09-09] MEDS: ACETAMINOPHEN 1000 MG/100 ML VIAL (NON FORMULARY) IVPB PRN (17:21)
--- NOTE | 2019-09-09 18:30 | PN ---
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 Patient found to have loose hardware in R tibial area, will need OR procedure in AM, NPO MN. Otherwise pain controlled w/ Dilaudid and IV Tylenol. PE GA AAox3, speaking in full sentences, NAD HEENT NC/AT, EOMI, dry MM, neck supple Chest CTAB, no crackles, no wheezing CVS S1, S2+, RRR, no m/r/g Abd Soft, NT, ND, BS+ Ext No LE edema, no calf tenderness, R hip pain on manipulation Vital Signs - 24 hr 09/08/19 09/08/19 09/09/19 21:00 22:00 06:00 Temperature 98.4 F 99.1 F Pulse Rate 75 85 Respiratory 20 Rate Blood Pressure 130/66 140/61 O2 Sat by Pulse 97 Oximetry (%) 09/09/19 09/09/19 09/09/19 09:00 10:00 14:00 Temperature 98.8 F 98.5 F Pulse Rate 96 H 77 Respiratory 20 20 20 Rate Blood Pressure 154/73 123/70 O2 Sat by Pulse 97 Oximetry (%) 09/09/19 16:56 Temperature 98.6 F Pulse Rate 81 Respiratory 18 Rate Blood Pressure 93/74 O2 Sat by Pulse Oximetry (%) Microbiology 09/07/19 14:05 Urine - Urine Clean Catch Urine Culture - Final Normal Urogenital [place] Laboratory Results - last 24 hr 09/08/19 09/09/19 09/09/19 23:06 06:45 11:47 POC Glucometer 186 191 241 09/09/19 17:13 POC Glucometer 257 Current Medications Generic Name Dose Route Start Last Admin Trade Name Freq PRN Reason Stop Dose Admin Acetaminophen 1,000 mg 09/09/19 11:43 09/09/19 17:21 Ofirmev Injection - IVPB 09/10/19 11:43 1,000 mg Q8H PRN Administration PAIN LEVEL 7 - 10 Baclofen 10 mg 09/08/19 11:43 09/08/19 13:43 Lioresal - PO 10 mg BID PRN Administration MUSCLE SPASMS Carvedilol 12.5 mg 09/08/19 12:00 09/09/19 11:21 Coreg - PO 12.5 mg BID LISA Administration Gabapentin 300 mg 09/08/19 11:45 09/09/19 11:21 Neurontin - PO 300 mg BID LISA Administration Hydromorphone HCl 2 mg 09/07/19 21:07 09/09/19 06:50 Dilaudid Vial - IVPB 2 mg Q6H PRN Administration PAIN LEVEL 4-8 Insulin Aspart 1 vial 09/08/19 16:30 09/09/19 17:14 Novolog Vial Sliding Scale - SQ 2 units ACHS LISA Administration Protocol Leflunomide 10 mg 09/08/19 11:45 09/09/19 11:22 Arava - PO 10 mg DAILY LISA Administration Lisinopril 5 mg 09/08/19 11:45 09/09/19 11:21 Prinivil PO 5 mg DAILY LISA Administration Rivaroxaban 20 mg 09/08/19 18:00 09/08/19 17:28 Xarelto PO 20 mg DAILY@1800 LISA Administration Zolpidem Tartrate 5 mg 09/08/19 22:00 Ambien - PO HS PRN INSOMNIA A/P: 74 F h/o multiple back surgeries, last 07/2019, admitted for refractory R hip pain shooting down R leg, following with spine/orthopedic surgery who are recommending diagnostic and therapeutic OR procedure in AM. R tibial pain (+) Voiding; (+) Flatus; (+) BM pain improved w/ Dilaudid, cont., restart muscle relaxants, Gabapentin for neuropathy CT RLE indicating ?chronic fx, will undergo OR procedure in AM for further evaluation of hardware, ?need for revision NPO MN, aggressive bowel regimen, DVT ppx with Xarelto but todays dose held due to OR procedure in AM Dr. Borjas: Ortho service h/o DVT/PE Cont. Xarelto 20mg daily /TEDs has IVC filter HFpEF not in acute exacverbation, in fact relatively volume depleted hold Torsemide, hold IVF, PO hydration for now, cont. to monitor lytes and fluid status HTN cont. BP meds as tolerated Insomnia restart Zolpidem Hypoalbuminemia 2/2 poor intake, malnourishment Dietary consult T2DM ISS, basal insulin as needed to titrate F/S 140-180. Afib on AC cont. AC, BB, rate controlled DVT ppx: Xarelto FEN: no IVF/daily chem/Na restricted diet NPO midnight for procedure in AM Med-Surg Visit type - Emergency Visit Emergency Visit: Yes ED Registration Date: 09/07/19 Care time: The patient presented to the Emergency Department on the above date and was hospitalized for further evaluation of their emergent condition. - New Patient This patient is new to me today: No - Critical Care Critical Care patient: No - Discharge Referral Referred to [facility] Med P.C.: No
[2019-09-10] MEDS: ACETAMINOPHEN 1000 MG/100 ML VIAL (NON FORMULARY) IVPB PRN ×2 (02:13→10:31)
[2019-09-10] MEDS: INSULIN SLIDING SCALE (NOVOLOG) 1 VIAL SQ SCH ×4 (07:57→21:44)
[2019-09-10] MEDS: CARVEDILOL 12.5 MG TABLET (FP) PO SCH ×2 (09:48→21:43)
[2019-09-10] MEDS: LISINOPRIL 5 MG TABLET (FP) PO SCH (09:51)
[2019-09-10] MEDS: HYDROmorphone HCl 2 MG/ML VIAL IVPB PRN (10:11)
[2019-09-10 11:23] LABS: BASO % 0.7 % (0-2.0); EOS % 3.5 % (0-4.5); HEMATOCRIT 29.5 % (32.4-45.2); HEMOGLOBIN 9.3 GM/dL (10.7-15.3); LYMPH % 15.5 % (8-40); MCH 28.1 pg (25.7-33.7); MCHC 31.6 g/dl (32.0-36.0); MEAN CELL VOLUME 88.8 fl (80-96); MEAN PLT VOLUME 7.4 fl (7.5-11.1); MONO % 10.7 % (3.8-10.2); NEUT % 69.6 % (42.8-82.8); PLATELET COUNT 329 K/MM3 (134-434); RBC 3.32 M/mm3 (3.60-5.2); RDW 14.6 % (11.6-15.6); WHITE BLOOD COUNT 7.4 K/mm3 (4.0-10.0)
[2019-09-10 11:40] LABS: INR 1.28 (0.83-1.09); PROTHROMBIN TIME (PATIENT) 15.2 SEC (9.7-13.0)
[2019-09-10 11:45] LABS: BLOOD UREA NITROGEN 27.4 mg/dL (7-18); CALCIUM 8.8 mg/dL (8.5-10.1); CREATININE 0.9 mg/dL (0.55-1.3); POTASSIUM 5.2 mmol/L (3.5-5.1)
[2019-09-10] MEDS ORDERED: HYDROmorphone HCl 2 MG/ML VIAL IM ONE (13:15)
[2019-09-10] MEDS ORDERED: MIDAZOLAM HCL 2 MG/2 ML SINGLE DOSE VIAL ONE (13:47)
[2019-09-10] MEDS ORDERED: PROPOFOL 20 ML ONE (13:47)
[2019-09-10] MEDS ORDERED: fentaNYL CITRATE 250 MCG/5 ML VIAL ONE (13:47)
[2019-09-10] MEDS ORDERED: BUPIVACAINE LIPOSOME/PF (EXPAREL) 266 MG/20 ML VIAL ONE (14:05)
[2019-09-10] MEDS ORDERED: BUPIVACAINE LIPOSOME/PF (EXPAREL) 266 MG/20 ML VIAL NR ONE (14:31)
[2019-09-10] MEDS ORDERED: BUPIVACAINE HCL/PF 0.5% (5 MG/ML) 30 ML VIAL IJ ONE (14:31)
[2019-09-10] MEDS ORDERED: ONDANSETRON 4 MG/2 ML VIAL IVPUSH PRN ×2 (14:32→20:13)
[2019-09-10] MEDS ORDERED: oxyCODONE HCL 5 MG TABLET PO PRN ×2 (14:32→18:12)
[2019-09-10] MEDS ORDERED: ceFAZolin SODIUM 1 GM VIAL IVPB ONE (14:35)
[2019-09-10] MEDS ORDERED: LACTATED RINGERS SOLUTION 1,000 ML IV SCH ×2 (14:45→20:13)
--- NOTE | 2019-09-10 17:48 | PN ---
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 patient underwent OR procedure today for joint tap and injection of anesthetic for diagnostic and therapeutic treatment. Will await results and recommendations from ortho service. Otherwise afebrile, VSS, diuretics held due to hypovolemic state. PE GA AAox3, speaking in full sentences, in distress HEENT NC/AT, EOMI, dry MM, neck supple Chest CTAB, no crackles, no wheezing CVS S1, S2+, RRR, no m/r/g Abd Soft, NT, ND, BS+ Ext No LE edema, no calf tenderness, R hip pain on manipulation and tender to palpation, hypersensitive Vital Signs - 24 hr 09/09/19 09/09/19 09/10/19 21:00 22:00 06:00 Temperature 98.3 F 98.3 F Pulse Rate 82 79 Respiratory 18 18 Rate Blood Pressure 125/59 L 122/63 O2 Sat by Pulse 96 Oximetry (%) 09/10/19 09/10/19 09/10/19 09:00 10:00 14:46 Temperature 98.4 F Pulse Rate 93 H 67 Respiratory 18 18 16 Rate Blood Pressure 117/03 L 133/58 L O2 Sat by Pulse 96 100 Oximetry (%) 09/10/19 09/10/19 09/10/19 15:00 15:05 15:15 Temperature Pulse Rate 67 60 66 Respiratory 13 18 17 Rate Blood Pressure 119/61 121/60 128/62 O2 Sat by Pulse 96 97 96 Oximetry (%) 09/10/19 09/10/19 09/10/19 15:30 15:45 16:00 Temperature Pulse Rate 66 68 69 Respiratory 14 16 18 Rate Blood Pressure 134/66 122/51 L 110/59 L O2 Sat by Pulse 98 98 98 Oximetry (%) 09/10/19 09/10/19 09/10/19 16:15 16:30 16:45 Temperature 98.1 F Pulse Rate 71 68 38 L Respiratory 18 18 18 Rate Blood Pressure 128/39 L 129/83 129/40 L O2 Sat by Pulse 97 97 98 Oximetry (%) Microbiology 09/07/19 14:05 Urine - Urine Clean Catch Urine Culture - Final Normal Urogenital [place] Laboratory Results - last 24 hr 09/09/19 09/10/19 09/10/19 21:25 05:58 10:30 WBC 7.4 RBC 3.32 L Hgb 9.3 L Hct 29.5 L MCV 88.8 MCH 28.1 MCHC 31.6 L RDW 14.6 Plt Count 329 MPV 7.4 L D Absolute Neuts (auto) 5.1 Neutrophils % 69.6 Lymphocytes % 15.5 D Monocytes % 10.7 H Eosinophils % 3.5 Basophils % 0.7 Nucleated RBC % 0 PT with INR INR Sodium Potassium Chloride Carbon Dioxide Anion Gap BUN Creatinine Est GFR (CKD-EPI)AfAm Est GFR (CKD-EPI)NonAf POC Glucometer 171 223 Random Glucose Calcium 09/10/19 09/10/19 09/10/19 10:30 10:30 12:16 WBC RBC Hgb Hct MCV MCH MCHC RDW Plt Count MPV Absolute Neuts (auto) Neutrophils % Lymphocytes % Monocytes % Eosinophils % Basophils % Nucleated RBC % PT with INR 15.20 H INR 1.28 H Sodium 138 Potassium 5.2 H Chloride 108 H Carbon Dioxide 24 Anion Gap 6 L BUN 27.4 H Creatinine 0.9 Est GFR (CKD-EPI)AfAm 73.52 Est GFR (CKD-EPI)NonAf 63.43 POC Glucometer 223 Random Glucose 245 H Calcium 8.8 09/10/19 17:31 WBC RBC Hgb Hct MCV MCH MCHC RDW Plt Count MPV Absolute Neuts (auto) Neutrophils % Lymphocytes % Monocytes % Eosinophils % Basophils % Nucleated RBC % PT with INR INR Sodium Potassium Chloride Carbon Dioxide Anion Gap BUN Creatinine Est GFR (CKD-EPI)AfAm Est GFR (CKD-EPI)NonAf POC Glucometer 142 Random Glucose Calcium Current Medications Generic Name Dose Route Start Last Admin Trade Name Freq PRN Reason Stop Dose Admin Baclofen 10 mg 09/08/19 11:43 09/08/19 13:43 Lioresal - PO 10 mg BID PRN Administration MUSCLE SPASMS Carvedilol 12.5 mg 09/08/19 12:00 09/10/19 09:48 Coreg - PO 12.5 mg BID LISA Administration Fentanyl 25 mcg 09/10/19 14:32 09/10/19 15:05 Sublimaze Injection - IVPUSH 09/11/19 14:31 25 mcg [id number] PRN Administration PAIN-PACU ORDER X 4 DOSES ONLY Gabapentin 300 mg 09/08/19 11:45 09/09/19 21:30 Neurontin - PO 300 mg BID LISA Administration Hydromorphone HCl 2 mg 09/07/19 21:07 09/10/19 10:11 Dilaudid Vial - IVPB 2 mg Q6H PRN Administration PAIN LEVEL 4-8 Lactated Ringer's 1,000 mls @ 75 mls/hr 09/10/19 14:45 Lactated Ringers Solution IV [facility] Insulin Aspart 1 vial 09/08/19 16:30 09/10/19 12:18 Novolog Vial Sliding Scale - SQ Not Given ACHS [facility] Protocol Leflunomide 10 mg 09/08/19 11:45 09/09/19 11:22 Arava - PO 10 mg DAILY LISA Administration Lisinopril 5 mg 09/08/19 11:45 09/10/19 09:51 Prinivil PO 5 mg DAILY LISA Administration Ondansetron HCl 4 mg 09/10/19 14:32 Zofran Injection IVPUSH 09/11/19 14:31 Q6H PRN NAUSEA AND/OR VOMITING Oxycodone HCl 5 mg 09/10/19 14:32 Roxicodone - PO Q4H PRN PAIN LEVEL 1-3 Rivaroxaban 20 mg 09/08/19 18:00 09/08/19 17:28 Xarelto PO 20 mg DAILY@1800 LISA Administration Zolpidem Tartrate 5 mg 09/08/19 22:00 Ambien - PO HS PRN INSOMNIA A/P: 74 F h/o multiple back surgeries, last 07/2019, admitted for refractory R hip pain shooting down R leg, underwent diagnostic/therapeutic joint tap. Will await ortho recommendations. R tibial pain (+) Voiding; (+) Flatus; (+) BM pain improved w/ Dilaudid, cont., restart muscle relaxants, Gabapentin for neuropathy will possibly need revision of hardware, will await ortho recs. aggressive bowel regimen, DVT ppx with Xarelto restart Dr. Borjas: Ortho service h/o DVT/PE Cont. Xarelto 20mg daily /TEDs has IVC filter HFpEF not in acute exacverbation, in fact relatively volume depleted hold Torsemide, hold IVF, PO hydration for now, cont. to monitor lytes and fluid status HTN cont. BP meds as tolerated Insomnia restart Zolpidem Hypoalbuminemia 2/2 poor intake, malnourishment Dietary consult T2DM ISS, basal insulin as needed to titrate F/S 140-180. Afib on AC cont. AC, BB, rate controlled DVT ppx: Xarelto FEN: no IVF/daily chem/Na restricted diet Dietary consult Med-Surg Visit type - Emergency Visit Emergency Visit: Yes ED Registration Date: 09/07/19 Care time: The patient presented to the Emergency Department on the above date and was hospitalized for further evaluation of their emergent condition. - New Patient This patient is new to me today: No - Critical Care Critical Care patient: No - Discharge Referral Referred to [facility] Med P.C.: No
[2019-09-10] MEDS ORDERED: ACETAMINOPHEN 1000 MG/100 ML VIAL (NON FORMULARY) IVPB PRN (18:15)
[2019-09-10] MEDS: LEFLUNOMIDE 10 MG TABLET PO SCH (18:22)
[2019-09-10] MEDS: GABAPENTIN 300 MG CAPSULE PO SCH ×2 (18:22→21:43)
[2019-09-10] MEDS ORDERED: PT OWN MED DRAWER 7, Y5N ONE ×2 (18:37→19:21)
[2019-09-10] MEDS: oxyCODONE HCL 5 MG TABLET PO PRN (18:43)
[2019-09-10] MEDS: RIVAROXABAN 20 MG TABLET PO SCH (18:46)
[2019-09-10] MEDS ORDERED: BACLOFEN 10 MG TABLET (FP) PO PRN (20:13)
[2019-09-11] MEDS: oxyCODONE HCL 5 MG TABLET PO PRN ×3 (01:24→16:50)
[2019-09-11] MEDS: ZOLPIDEM TARTRATE 5 MG TABLET PO PRN ×2 (01:24→23:10)
[2019-09-11] MEDS: INSULIN SLIDING SCALE (NOVOLOG) 1 VIAL SQ SCH ×4 (06:02→23:08)
[2019-09-11 08:20] LABS: BASO % 0.8 % (0-2.0); EOS % 3.9 % (0-4.5); HEMOGLOBIN 8.9 GM/dL (10.7-15.3); MCH 28.8 pg (25.7-33.7); MCHC 32.9 g/dl (32.0-36.0); MEAN CELL VOLUME 87.5 fl (80-96); MEAN PLT VOLUME 7.1 fl (7.5-11.1); MONO % 11.2 % (3.8-10.2); NEUT % 64.1 % (42.8-82.8); PLATELET COUNT 318 K/MM3 (134-434); RBC 3.09 M/mm3 (3.60-5.2); RDW 14.4 % (11.6-15.6); WHITE BLOOD COUNT 6.8 K/mm3 (4.0-10.0)
[2019-09-11 08:42] LABS: BLOOD UREA NITROGEN 20.9 mg/dL (7-18); CALCIUM 8.4 mg/dL (8.5-10.1); CREATININE 0.9 mg/dL (0.55-1.3); POTASSIUM 4.7 mmol/L (3.5-5.1)
[2019-09-11] MEDS ORDERED: PT OWN MED DRAWER 7, Y5N ONE (08:54)
[2019-09-11] MEDS: CARVEDILOL 12.5 MG TABLET (FP) PO SCH ×2 (09:06→23:06)
[2019-09-11] MEDS: LISINOPRIL 5 MG TABLET (FP) PO SCH (09:06)
[2019-09-11] MEDS: GABAPENTIN 300 MG CAPSULE PO SCH ×2 (09:07→23:05)
[2019-09-11] MEDS: LEFLUNOMIDE 10 MG TABLET PO SCH (09:07)
--- NOTE | 2019-09-11 10:10 | PN ---
Physical Exam: SUBJECTIVE: Patient seen and examined. Says she is still experiencing R hip pain although the tibial "shooting" pain has resolved. OBJECTIVE: Vital Signs Period Temp Pulse Resp BP Sys/Marcelo Pulse Ox Last 24 Hr 97.6 F-99.1 F 38-83 13-18 110-140/39-83 95-100 GENERAL: a/o x 3, resting, in nad HEAD: Normal with no signs of trauma. EYES: PERRL, extraocular movements intact ENT: oropharynx clear without exudates, dry mucous membranes. NECK:supple. LUNGS: Breath sounds equal, clear to auscultation bilaterally HEART: Regular rate and rhythm, S1, S2 without murmur, rub or gallop. ABDOMEN: Soft, nontender, nondistended, normoactive bowel sounds EXTREMITIES: 2+ pulses, warm, well-perfused, no edema. R hip pain with movement , tender to palpation Laboratory Results - last 24 hr 09/10/19 09/10/19 09/10/19 10:30 10:30 10:30 WBC 7.4 RBC 3.32 L Hgb 9.3 L Hct 29.5 L MCV 88.8 MCH 28.1 MCHC 31.6 L RDW 14.6 Plt Count 329 MPV 7.4 L D Absolute Neuts (auto) 5.1 Neutrophils % 69.6 Lymphocytes % 15.5 D Monocytes % 10.7 H Eosinophils % 3.5 Basophils % 0.7 Nucleated RBC % 0 PT with INR 15.20 H INR 1.28 H Sodium 138 Potassium 5.2 H Chloride 108 H Carbon Dioxide 24 Anion Gap 6 L BUN 27.4 H Creatinine 0.9 Est GFR (CKD-EPI)AfAm 73.52 Est GFR (CKD-EPI)NonAf 63.43 POC Glucometer Random Glucose 245 H Calcium 8.8 09/10/19 09/10/19 09/10/19 12:16 17:31 21:30 WBC RBC Hgb Hct MCV MCH MCHC RDW Plt Count MPV Absolute Neuts (auto) Neutrophils % Lymphocytes % Monocytes % Eosinophils % Basophils % Nucleated RBC % PT with INR INR Sodium Potassium Chloride Carbon Dioxide Anion Gap BUN Creatinine Est GFR (CKD-EPI)AfAm Est GFR (CKD-EPI)NonAf POC Glucometer 223 142 219 Random Glucose Calcium 02/04/20 02/04/20 02/04/20 05:59 06:54 06:54 WBC 6.8 RBC 3.09 L Hgb 8.9 L Hct 27.0 L MCV 87.5 MCH 28.8 MCHC 32.9 RDW 14.4 Plt Count 318 MPV 7.1 L Absolute Neuts (auto) 4.3 Neutrophils % 64.1 Lymphocytes % 20.0 D Monocytes % 11.2 H Eosinophils % 3.9 Basophils % 0.8 Nucleated RBC % 0 PT with INR INR Sodium 137 Potassium 4.7 Chloride 108 H Carbon Dioxide 25 Anion Gap 4 L BUN 20.9 H Creatinine 0.9 Est GFR (CKD-EPI)AfAm 73.52 Est GFR (CKD-EPI)NonAf 63.43 POC Glucometer 196 Random Glucose 196 H Calcium 8.4 L Active Medications Generic Name Dose Route Start Last Admin Trade Name Freq PRN Reason Stop Dose Admin Acetaminophen 1,000 mg 09/10/19 18:15 09/10/19 21:50 Ofirmev Injection - IVPB 09/11/19 18:15 1,000 mg Q6H PRN Administration PAIN LEVEL 1 - 3 Baclofen 10 mg 09/10/19 20:13 Lioresal - PO BID PRN MUSCLE SPASMS Carvedilol 12.5 mg 09/10/19 22:00 09/11/19 09:06 Coreg - PO 12.5 mg BID LISA Administration Gabapentin 300 mg 09/10/19 22:00 09/11/19 09:07 Neurontin - PO 300 mg BID LISA Administration Lactated Ringer's 1,000 mls @ 75 mls/hr 09/10/19 20:13 09/10/19 21:25 Lactated Ringers Solution IV Not Given ASDIR LISA Insulin Aspart 1 vial 09/10/19 22:00 09/11/19 06:02 Novolog Vial Sliding Scale - SQ 1 unit ACHS LISA Administration Protocol Leflunomide 10 mg 09/11/19 10:00 09/11/19 09:07 Arava - PO 10 mg DAILY LISA Administration Lisinopril 5 mg 09/11/19 10:00 09/11/19 09:06 Prinivil PO 5 mg DAILY LISA Administration Ondansetron HCl 4 mg 09/10/19 20:13 Zofran Injection IVPUSH 09/11/19 14:31 Q6H PRN NAUSEA AND/OR VOMITING Oxycodone HCl 10 mg 09/10/19 18:08 09/11/19 06:01 Roxicodone - PO 10 mg Q4H PRN Administration PAIN LEVEL 6-10 Oxycodone HCl 5 mg 09/10/19 18:12 Roxicodone - PO Q4H PRN PAIN LEVEL 1-5 Zolpidem Tartrate 5 mg 09/10/19 20:13 09/11/19 01:24 Ambien - PO 5 mg HS PRN Administration INSOMNIA ASSESSMENT/PLAN: 74 F h/o multiple back surgeries, last 07/2019, admitted for refractory R hip pain shooting down R leg, underwent diagnostic/therapeutic joint tap. Will await ortho recommendations. #R Hip/tibial pain -tibial pain improving. still with hip pain. -for myelogram today -xarelto on hold, continue 48 hours post myelogram per IR -(+) Voiding; (+) Flatus; (+) BM -pain control with oxycodone PRN, restart muscle relaxants, Gabapentin for neuropathy -will possibly need revision of hardware, will await ortho recs. -bowel regimen -Dr. Borjas: Ortho service #h/o DVT/PE -Cont. Xarelto 20mg daily. held for myelogram. will resume 48 hours -/TEDs -has IVC filter #HFpEF -not in acute exacerbation, in fact relatively volume depleted -hold Torsemide, hold IVF, PO hydration #HTN cont. BP meds as tolerated #Insomnia -restart Zolpidem #Hypoalbuminemia -2/2 poor intake, malnourishment -Dietary consult #T2DM -ISS -BGM #Afib on AC -rate controlled -hold xarelto for myelogram FEN: no IVF/daily chem/Na restricted diet Visit type - Emergency Visit Emergency Visit: Yes ED Registration Date: 09/07/19 Care time: The patient presented to the Emergency Department on the above date and was hospitalized for further evaluation of their emergent condition. - New Patient This patient is new to me today: Yes Date on this admission: 09/11/19 - Critical Care Critical Care patient: No ATTENDING PHYSICIAN STATEMENT I saw and evaluated the patient. I reviewed the resident's note and discussed the case with the resident. I agree with the resident's findings and plan as documented. SUBJECTIVE: OBJECTIVE: ASSESSMENT AND PLAN:
[2019-09-11] MEDS: oxyCODONE HCL 10 MG SUSTAINED ACTING TABLET PO SCH ×2 (13:12→23:06)
--- NOTE | 2019-09-11 13:17 | CONSULT ---
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 Cardio/Vascular: Yes: CHF, Deep Vein Thrombosis, HTN Pulmonary: Yes: Pulmonary Embolus Rheumatology: Yes: Rheumatoid Arthritis Endocrine: Yes: Diabetes Mellitus - Past Surgical History Past Surgical History: Yes: Bariatric Surgery (gastric band), Cholecystectomy, Hysterectomy, Joint Replacement (5 right hip replacements, 1 left hip replacement, bilateral TKR, left LTK with staph infection ), Laminectomy (back surgeries-reports 5, most rcent 06/19) - Alcohol/Substance Use Hx Alcohol Use: No - Smoking History Smoking history: Unknown if ever smoked Have you smoked in the past 12 months: No Aproximately how many cigarettes per day: 0 If you are a former smoker, when did you quit?: 40 YRS - Social History Usual Living Arrangement: With Child ADL: Independent 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 History of Recent Travel: No Home Medications - Allergies Allergies/Adverse Reactions: Allergies Allergy/AdvReac Type Severity Reaction Status Date / Time levofloxacin [From Levaquin] Allergy Severe ANAPHYLAXIS Verified 09/07/19 11:37 methotrexate Allergy Severe Swelling Verified 09/07/19 11:37 Penicillins Allergy Mild Rash Verified 09/07/19 11:37 doxycycline Allergy Unknown Verified 09/07/19 11:37 bumetanide [From Bumex] Allergy Rash Verified 09/07/19 11:37 morphine AdvReac Mild Itching Verified 09/07/19 11:37 piperacillin sodium AdvReac Mild Itching Verified 09/07/19 11:37 [From Zosyn] tazobactam sodium AdvReac Mild Itching Verified 09/07/19 11:37 [From Zosyn] - Home Medications Home Medications: Ambulatory Orders Gabapentin 300 mg PO BID 03/04/14 Oxycodone HCl/Acetaminophen [Percocet 10-325 mg Tablet] 1 tab PO Q6H PRN Insulin Lispro Protamin/Lispro [Humalog Mix 75-25 Kwikpen] 22 unit SQ ACDIN 04/23 Zolpidem Tartrate [Ambien] 10 mg PO HS PRN 06/01/17 Rivaroxaban [Xarelto -] 20 mg PO DAILY 06/22/18 Leflunomide [Arava] 20 mg PO DAILY 07/26/18 Torsemide 50 mg PO DAILY 07/26/18 Baclofen 10 mg PO Q12H 07/16/19 Carvedilol [Coreg -] 25 mg PO DAILY 07/16/19 Lisinopril 5 mg PO DAILY 07/16/19 Pregabalin [Lyrica -] 75 mg PO TID 07/16/19 Physical Exam Vital Signs: Vital Signs Temperature 98.3 F 09/11/19 09:21 Pulse Rate 74 09/11/19 09:21 Respiratory Rate 18 09/11/19 09:21 Blood Pressure 140/69 09/11/19 09:21 O2 Sat by Pulse Oximetry (%) 95 09/10/19 21:00 Labs: CBC, BMP 09/11/19 06:54 09/11/19 06:54
--- NOTE | 2019-09-11 13:19 | CONSULT ---
Consult Consult Specialty:: Pain Management Reason for Consultation:: Rt Hip pain - History of Present Illness Chief Complaint: Rt Hip pain History of Present Illness: 74 yr old female with severe Rt Hip pain s/p multiple surgeries and aspiration of Rt hip , result not available. She has Pain 10/10 , difficulty in walking . she was taking Percocet 10/325 at home. She had also back surgery a month ago with H/o multiple Back surgeries. 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 Cardio/Vascular: Yes: CHF, Deep Vein Thrombosis, HTN Pulmonary: Yes: Pulmonary Embolus Rheumatology: Yes: Rheumatoid Arthritis Endocrine: Yes: Diabetes Mellitus - Past Surgical History Past Surgical History: Yes: Bariatric Surgery (gastric band), Cholecystectomy, Hysterectomy, Joint Replacement (5 right hip replacements, 1 left hip replacement, bilateral TKR, left LTK with staph infection ), Laminectomy (back surgeries-reports 5, most rcent 06/19) - Alcohol/Substance Use Hx Alcohol Use: No - Smoking History Smoking history: Unknown if ever smoked Have you smoked in the past 12 months: No Aproximately how many cigarettes per day: 0 If you are a former smoker, when did you quit?: 40 YRS - Social History Usual Living Arrangement: With Child ADL: Independent 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 History of Recent Travel: No Home Medications - Allergies Allergies/Adverse Reactions: Allergies Allergy/AdvReac Type Severity Reaction Status Date / Time levofloxacin [From Levaquin] Allergy Severe ANAPHYLAXIS Verified 09/07/19 11:37 methotrexate Allergy Severe Swelling Verified 09/07/19 11:37 Penicillins Allergy Mild Rash Verified 09/07/19 11:37 doxycycline Allergy Unknown Verified 09/07/19 11:37 bumetanide [From Bumex] Allergy Rash Verified 09/07/19 11:37 morphine AdvReac Mild Itching Verified 09/07/19 11:37 piperacillin sodium AdvReac Mild Itching Verified 09/07/19 11:37 [From Zosyn] tazobactam sodium AdvReac Mild Itching Verified 09/07/19 11:37 [From Zosyn] - Home Medications Home Medications: Ambulatory Orders Gabapentin 300 mg PO BID 03/04/14 Oxycodone HCl/Acetaminophen [Percocet 10-325 mg Tablet] 1 tab PO Q6H PRN Insulin Lispro Protamin/Lispro [Humalog Mix 75-25 Kwikpen] 22 unit SQ ACDIN 04/23 Zolpidem Tartrate [Ambien] 10 mg PO HS PRN 06/01/17 Rivaroxaban [Xarelto -] 20 mg PO DAILY 06/22/18 Leflunomide [Arava] 20 mg PO DAILY 07/26/18 Torsemide 50 mg PO DAILY 07/26/18 Baclofen 10 mg PO Q12H 07/16/19 Carvedilol [Coreg -] 25 mg PO DAILY 07/16/19 Lisinopril 5 mg PO DAILY 07/16/19 Pregabalin [Lyrica -] 75 mg PO TID 07/16/19 Review of Systems - Review of Systems Constitutional: reports: No Symptoms Eyes: reports: No Symptoms HENT: reports: No Symptoms Neck: reports: No Symptoms Cardiovascular: reports: No Symptoms Respiratory: reports: No Symptoms Gastrointestinal: reports: No Symptoms Genitourinary: reports: No Symptoms Musculoskeletal: reports: Back Pain, Other (Rt Hip pain) Neurological: reports: No Symptoms Endocrine: reports: No Symptoms Psychiatric: reports: No Symptoms Pain Intensity: 10 Physical Exam Vital Signs: Vital Signs Temperature 98.3 F 09/11/19 09:21 Pulse Rate 74 09/11/19 09:21 Respiratory Rate 18 09/11/19 09:21 Blood Pressure 140/69 09/11/19 09:21 O2 Sat by Pulse Oximetry (%) 95 09/10/19 21:00 Constitutional: Yes: Well Nourished Eyes: Yes: WNL HENT: Yes: WNL Neck: Yes: WNL Musculoskeletal: Yes: Other (Rt Hip Limited ROM , needs assist to lift fro) Labs: CBC, BMP 09/11/19 06:54 09/11/19 06:54
[2019-09-11] MEDS ORDERED: BACLOFEN 10 MG TABLET (FP) PO ONE (13:32)
[2019-09-11 15:11] VITALS: BMI 36.6
--- NOTE | 2019-09-11 16:33 | PATH ---
Cytology Non-Gynecological Report Patient Name: SHERI PADILLA Med. Rec. #: [id number] /Age/Gender: 1945 (Age: 74) / F Account: [id number] Location: [address] [place] [address]/[facility] Taken: 09/10/2019 Received: 09/10/2019 Reported: 09/11/2019 Physicians: Luis Borjsa M.D. Specimen(s) Received FLUID FROM RIGHT HIP Clinical History Osteoarthritis Final Diagnosis RIGHT HIP FLUID FOR CYTOLOGY: SATISFACTORY FOR EVALUATION NO MALIGNANT CELLS IDENTIFIED. PREDOMINANTLY AMORPHOUS MATERIAL AND BLOOD WITH RARE INFLAMMATORY CELLS PRESENT. Electronically Signed Heather Craig M.D. Gross Description Approximately 10 cc of bloody fluid received fresh. One cytospin and one cell block prepared.
--- NOTE | 2019-09-11 17:36 | PN ---
Teaching Attending Note Name of Resident: Geraldine Johns ATTENDING PHYSICIAN STATEMENT I saw and evaluated the patient. I reviewed the resident's note and discussed the case with the resident. I agree with the resident's findings and plan as documented. SUBJECTIVE: Seen and examine, tearful, fearful that she will develop another infection OBJECTIVE: Vital Signs - 24 hr 09/10/19 09/10/19 09/10/19 18:00 21:00 22:00 Temperature 97.6 F 99.1 F Pulse Rate 69 83 Respiratory 18 18 Rate Blood Pressure 119/54 L 140/49 L O2 Sat by Pulse 95 Oximetry (%) 09/11/19 09/11/19 09/11/19 06:00 09:00 09:21 Temperature 98.7 F 98.3 F Pulse Rate 83 74 Respiratory 18 18 18 Rate Blood Pressure 110/53 L 140/69 O2 Sat by Pulse 95 Oximetry (%) 09/11/19 09/11/19 14:00 16:46 Temperature 99.2 F Pulse Rate 81 80 Respiratory 18 18 Rate Blood Pressure 112/48 L 120/60 O2 Sat by Pulse Oximetry (%) PE Gen: NAD, anxious Chest CTAB, no crackles, no wheezing CVS S1, S2+, RRR, no m/r/g Abd Soft, NT, ND, BS+ Ext No LE edema, no calf tenderness, R hip pain on palpation, right knee scar Current Medications Acetaminophen (Ofirmev Injection -) 1,000 mg IVPB Q6H PRN PRN Reason: PAIN LEVEL 1 - 3 Stop: 09/11/19 18:15 Last Admin: 09/10/19 21:50 Dose: 1,000 mg Amino Acids (Prosource No Carb Liquid Pkt) 30 ml PO DAILY [facility] Baclofen (Lioresal -) 10 mg PO BID PRN PRN Reason: MUSCLE SPASMS Carvedilol (Coreg -) 12.5 mg PO BID [facility] Last Admin: 09/11/19 09:06 Dose: 12.5 mg Gabapentin (Neurontin -) 300 mg PO BID [facility] Last Admin: 09/11/19 09:07 Dose: 300 mg Insulin Aspart (Novolog Vial Sliding Scale -) 1 vial SQ [facility]; Protocol Last Admin: 09/11/19 16:36 Dose: 1 unit Leflunomide (Arava -) 10 mg PO DAILY [facility] Last Admin: 09/11/19 09:07 Dose: 10 mg Lisinopril (Prinivil) 5 mg PO DAILY [facility] Last Admin: 09/11/19 09:06 Dose: 5 mg Multivitamins/Minerals (Infuvite Adult -) 10 ml IV DAILY [facility] Oxycodone HCl (Roxicodone -) 10 mg PO Q4H PRN PRN Reason: PAIN LEVEL 6-10 Last Admin: 09/11/19 16:50 Dose: 10 mg Oxycodone HCl (Roxicodone -) 5 mg PO Q4H PRN PRN Reason: PAIN LEVEL 1-5 Oxycodone HCl (Oxycontin -) 10 mg PO BID [facility] Last Admin: 09/11/19 13:12 Dose: 10 mg Zolpidem Tartrate (Ambien -) 5 mg PO HS PRN PRN Reason: INSOMNIA Last Admin: 09/11/19 01:24 Dose: 5 mg Laboratory Results - last 24 hr 09/10/19 09/11/19 09/11/19 21:30 05:59 06:54 WBC 6.8 RBC 3.09 L Hgb 8.9 L Hct 27.0 L MCV 87.5 MCH 28.8 MCHC 32.9 RDW 14.4 Plt Count 318 MPV 7.1 L Absolute Neuts (auto) 4.3 Neutrophils % 64.1 Lymphocytes % 20.0 D Monocytes % 11.2 H Eosinophils % 3.9 Basophils % 0.8 Nucleated RBC % 0 Sodium Potassium Chloride Carbon Dioxide Anion Gap BUN Creatinine Est GFR (CKD-EPI)AfAm Est GFR (CKD-EPI)NonAf POC Glucometer 219 196 Random Glucose Calcium 09/11/19 09/11/19 09/11/19 06:54 11:31 16:10 WBC RBC Hgb Hct MCV MCH MCHC RDW Plt Count MPV Absolute Neuts (auto) Neutrophils % Lymphocytes % Monocytes % Eosinophils % Basophils % Nucleated RBC % Sodium 137 Potassium 4.7 Chloride 108 H Carbon Dioxide 25 Anion Gap 4 L BUN 20.9 H Creatinine 0.9 Est GFR (CKD-EPI)AfAm 73.52 Est GFR (CKD-EPI)NonAf 63.43 POC Glucometer 295 190 Random Glucose 196 H Calcium 8.4 L Microbiology 09/10/19 15:30 Abscess Gram Stain - Final 09/10/19 15:30 Abscess LISA Preparation - Preliminary 09/10/19 15:30 Abscess Fungal Culture - Preliminary 09/10/19 15:30 Abscess AFB Smear Concentration - Preliminary 09/10/19 15:30 Abscess Mycobacterial Culture - Preliminary ASSESSMENT AND PLAN: 74 F h/o multiple back surgeries, last 07/2019, admitted for refractory R hip pain shooting down R leg, underwent diagnostic/therapeutic joint tap 1) R tibial pain pain controlled adequately neuro cs, will hold off on myelogram/MRI until seen by neuro ortho following bowel regimen fu cultures pain mngmt c/s 2) Hx PE/DVT s/p IVC filter -on xarelto 3) D. CHF-euvolemic, holding meds 4) HTN well controlled, continue current meds 5) T2DM -ISS, basal insulin 6) Afib on AC -bb, rate controlled -cw AC
--- NOTE | 2019-09-11 17:59 | CON.NEURO ---
Consult Consult Specialty:: Adry Referred by:: PCP - History of Present Illness History of Present Illness: 74-year-old right-handed female patient with multiple medical problem presents to the hospital with a chief complain ofincreasing difficulty with the right hip. Patient was very complicated degenerative disc disease status post multiple surgery with postoperative complication with status post laminectomy in multiple levels. patient came into the hospital had an x-ray had a CAT scan of the lower back. Pain management was consulted to see the patient patient isn 't combination of the Lyrica and gabapentin. Patient was seen on the medical floor. 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 Cardio/Vascular: Yes: CHF, Deep Vein Thrombosis, HTN Pulmonary: Yes: Pulmonary Embolus Rheumatology: Yes: Rheumatoid Arthritis Endocrine: Yes: Diabetes Mellitus - Past Surgical History Past Surgical History: Yes: Bariatric Surgery (gastric band), Cholecystectomy, Hysterectomy, Joint Replacement (5 right hip replacements, 1 left hip replacement, bilateral TKR, left LTK with staph infection ), Laminectomy (back surgeries-reports 5, most rcent 06/19) - Alcohol/Substance Use Hx Alcohol Use: No - Smoking History Smoking history: Unknown if ever smoked Have you smoked in the past 12 months: No Aproximately how many cigarettes per day: 0 If you are a former smoker, when did you quit?: 40 YRS - Social History Usual Living Arrangement: With Child ADL: Independent 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 History of Recent Travel: No Home Medications - Allergies Allergies/Adverse Reactions: Allergies Allergy/AdvReac Type Severity Reaction Status Date / Time levofloxacin [From Levaquin] Allergy Severe ANAPHYLAXIS Verified 09/07/19 11:37 methotrexate Allergy Severe Swelling Verified 09/07/19 11:37 Penicillins Allergy Mild Rash Verified 09/07/19 11:37 doxycycline Allergy Unknown Verified 09/07/19 11:37 bumetanide [From Bumex] Allergy Rash Verified 09/07/19 11:37 morphine AdvReac Mild Itching Verified 09/07/19 11:37 piperacillin sodium AdvReac Mild Itching Verified 09/07/19 11:37 [From Zosyn] tazobactam sodium AdvReac Mild Itching Verified 09/07/19 11:37 [From Zosyn] - Home Medications Home Medications: Ambulatory Orders Gabapentin 300 mg PO BID 03/04/14 Oxycodone HCl/Acetaminophen [Percocet 10-325 mg Tablet] 1 tab PO Q6H PRN Insulin Lispro Protamin/Lispro [Humalog Mix 75-25 Kwikpen] 22 unit SQ ACDIN 04/23 Zolpidem Tartrate [Ambien] 10 mg PO HS PRN 06/01/17 Rivaroxaban [Xarelto -] 20 mg PO DAILY 06/22/18 Leflunomide [Arava] 20 mg PO DAILY 07/26/18 Torsemide 50 mg PO DAILY 07/26/18 Baclofen 10 mg PO Q12H 07/16/19 Carvedilol [Coreg -] 25 mg PO DAILY 07/16/19 Lisinopril 5 mg PO DAILY 07/16/19 Pregabalin [Lyrica -] 75 mg PO TID 07/16/19 Family Medical History Family History: Unremarkable Review of Systems - Review of Systems Constitutional: reports: No Symptoms Eyes: reports: No Symptoms HENT: reports: No Symptoms Neck: reports: No Symptoms Neurological: reports: Headache, Incoordination, Numbness, Parasthesia Physical Exam-Neuro Vital Signs: Vital Signs Temperature 99.2 F 09/11/19 14:00 Pulse Rate 80 09/11/19 16:46 Respiratory Rate 18 09/11/19 16:46 Blood Pressure 120/60 09/11/19 16:46 O2 Sat by Pulse Oximetry (%) 95 09/11/19 09:00 Constitutional: Yes: Well Nourished Neck: Yes: WNL Cardiovascular: Yes: WNL Labs: CBC, BMP 09/11/19 06:54 09/11/19 06:54 INR, PTT INR 1.28 (0.83-1.09) H 09/10/19 10:30 - Neuro Exam Level Of Consciousness: Yes: Oriented to Person, Oriented to Place, Oriented to Time Eyes: Yes: PERRLA Speech: WNL Dominant Hand: Right Cranial Nerves II-XII Intact: Yes Gag: Present DTR's: 1+ Left Bicep, 1+ Right Bicep, 1+ Left Brachioradialis, 1+ Right Brachioradialis Response to light touch: Normal Response to pain prick: Normal Response to temperature: Normal Motor Strength: 3/5: Left Arm, Right Arm, Left Leg, Right Leg Gait: Deferred Imaging - Results Cat Scan: Image Reviewed Problem List - Problems (1) Back pain Code(s): M54.9 - DORSALGIA, UNSPECIFIED Qualifiers: Back pain location: low back pain Chronicity: unspecified Back pain laterality: right Sciatica presence: without sciatica Qualified Code(s): M54.5 - Low back pain Assessment/Plan complicated picture failed back surgery syndrome No evidence of myelopathy Lumbar radiculopathy Lumbosacral stenosis Chronic fracture of the right hip 1. Neuro checks every 2 hours. 2. Tight blood sugar control. 3. Narcotic counseling. 4. Increase the gabapentin to 600 mg twice daily. 5. Increase the baclofen to 20 mg twice daily. 6. Would consider MRI of the right hip as an outpatient. Thank you very much for allowing me to be part of this patient's neurological care followed patient unit admission thank you Grupo Rider MD Neurology [place] neurological apprenticeship consultant [address] [place] [address]
[2019-09-11] MEDS ORDERED: RIVAROXABAN 20 MG TABLET PO SCH (18:00)
[2019-09-11] MEDS ORDERED: morphine SO4 SUSTAINED ACTING 15 MG TABLET.SA PO SCH (22:00)
[2019-09-11] MEDS: BACLOFEN 10 MG TABLET (FP) PO SCH (23:06)
[2019-09-12] MEDS: INSULIN SLIDING SCALE (NOVOLOG) 1 VIAL SQ SCH ×4 (07:06→22:21)
[2019-09-12 09:11] LABS: BASO % 0.8 % (0-2.0); EOS % 4.3 % (0-4.5); LYMPH % 22.2 % (8-40); MCH 28.2 pg (25.7-33.7); MCHC 32.3 g/dl (32.0-36.0); MEAN CELL VOLUME 87.4 fl (80-96); MEAN PLT VOLUME 7.1 fl (7.5-11.1); MONO % 12.5 % (3.8-10.2); NEUT % 60.2 % (42.8-82.8); PLATELET COUNT 304 K/MM3 (134-434); RDW 14.6 % (11.6-15.6); WHITE BLOOD COUNT 7.2 K/mm3 (4.0-10.0)
[2019-09-12 09:47] LABS: ALBUMIN 2.1 g/dl (3.4-5.0); BILIRUBIN,TOTAL 0.4 mg/dL (0.2-1); BLOOD UREA NITROGEN 22.6 mg/dL (7-18); CALCIUM 8.4 mg/dL (8.5-10.1); CREATININE 0.9 mg/dL (0.55-1.3); TOT PROT 6.2 g/dl (6.4-8.2)
[2019-09-12] MEDS ORDERED: SODIUM CHLORIDE 0.9% 500 ML INFUS.BAG IV SCH (10:00)
[2019-09-12] MEDS ORDERED: MULTIVIT INJ. ADULT COMBO WITH VIT K 1 COMBO 10 ML VIAL IV SCH (10:00)
[2019-09-12] MEDS ORDERED: PT OWN MED DRAWER 7, Y5N ONE (10:42)
[2019-09-12] MEDS: CARVEDILOL 12.5 MG TABLET (FP) PO SCH ×2 (10:54→22:21)
[2019-09-12] MEDS: LISINOPRIL 5 MG TABLET (FP) PO SCH (10:54)
[2019-09-12] MEDS: LEFLUNOMIDE 10 MG TABLET PO SCH (10:55)
[2019-09-12] MEDS: BACLOFEN 10 MG TABLET (FP) PO SCH ×3 (10:59→22:21)
[2019-09-12] MEDS: oxyCODONE HCL 10 MG SUSTAINED ACTING TABLET PO SCH ×2 (11:00→22:21)
[2019-09-12] MEDS: GABAPENTIN 300 MG CAPSULE PO SCH ×3 (11:03→22:21)
--- NOTE | 2019-09-12 14:16 | PN ---
Teaching Attending Note Name of Resident: Geraldine Johns ATTENDING PHYSICIAN STATEMENT I saw and evaluated the patient. I reviewed the resident's note and discussed the case with the resident. I agree with the resident's findings and plan as documented. SUBJECTIVE: Seen and examined at bedside, no acute events overnight, feeling better, smiling and wants to work with PT OBJECTIVE: Vital Signs - 24 hr 09/11/19 09/11/19 09/11/19 16:46 21:00 22:00 Temperature 99.6 F Pulse Rate 80 89 Respiratory 18 18 Rate Blood Pressure 120/60 117/44 L O2 Sat by Pulse 95 Oximetry (%) 09/12/19 09/12/19 09/12/19 00:00 07:10 10:47 Temperature 98.9 F 98.6 F 98.6 F Pulse Rate 99 H 90 75 Respiratory 18 18 20 Rate Blood Pressure 158/67 113/57 L 123/65 O2 Sat by Pulse Oximetry (%) PE: Gen: NAD Chest CTAB, no crackles, no wheezing CVS S1, S2+, RRR, no m/r/g Abd Soft, NT, ND, BS+ Ext No LE edema, no calf tenderness, R hip pain on palpation, right knee scar Current Medications Amino Acids (Prosource No Carb Liquid Pkt) 30 ml PO DAILY ON LICENSE OF [facility] Baclofen (Lioresal -) 20 mg PO BID ON [facility] OF [facility] Last Admin: 09/12/19 12:39 Dose: 20 mg Carvedilol (Coreg -) 12.5 mg PO BID ON LICENSE OF [facility] Last Admin: 09/12/19 10:54 Dose: 12.5 mg Gabapentin (Neurontin -) 600 mg PO BID ON [facility] OF [facility] Last Admin: 09/12/19 12:38 Dose: 600 mg Insulin Aspart (Novolog Vial Sliding Scale -) 1 vial SQ ACHS ON LICENSE OF [facility]; Protocol Last Admin: 09/12/19 12:37 Dose: 4 unit Leflunomide (Arava -) 10 mg PO DAILY ON [facility] OF [facility] Last Admin: 09/12/19 10:55 Dose: 10 mg Lisinopril (Prinivil) 5 mg PO DAILY ON [facility] OF [facility] Last Admin: 09/12/19 10:54 Dose: 5 mg Multivitamins/Minerals (Infuvite Adult -) 10 ml IV DAILY ON LICENSE OF [facility] Last Admin: 09/12/19 13:03 Dose: 10 ml Oxycodone HCl (Roxicodone -) 10 mg PO Q4H PRN PRN Reason: PAIN LEVEL 6-10 Last Admin: 09/11/19 16:50 Dose: 10 mg Oxycodone HCl (Roxicodone -) 5 mg PO Q4H PRN PRN Reason: PAIN LEVEL 1-5 Oxycodone HCl (Oxycontin -) 10 mg PO BID ON LICENSE OF [facility] Last Admin: 09/12/19 11:00 Dose: 10 mg Sodium Chloride (Normal Saline -) 1,000 ml IV DAILY ON [facility] OF [facility] Last Admin: 09/12/19 13:04 Dose: 1,000 ml Zolpidem Tartrate (Ambien -) 5 mg PO HS PRN PRN Reason: INSOMNIA Last Admin: 09/11/19 23:10 Dose: 5 mg Laboratory Results - last 24 hr 09/11/19 09/11/19 09/12/19 16:10 23:03 07:03 WBC RBC Hgb Hct MCV MCH MCHC RDW Plt Count MPV Absolute Neuts (auto) Neutrophils % Lymphocytes % Monocytes % Eosinophils % Basophils % Nucleated RBC % Sodium Potassium Chloride Carbon Dioxide Anion Gap BUN Creatinine Est GFR (CKD-EPI)AfAm Est GFR (CKD-EPI)NonAf POC Glucometer 190 267 179 Random Glucose Calcium Total Bilirubin AST ALT Alkaline Phosphatase Total Protein Albumin 09/12/19 09/12/19 09/12/19 08:35 08:35 12:15 WBC 7.2 RBC 3.20 L Hgb 9.0 L Hct 28.0 L MCV 87.4 MCH 28.2 MCHC 32.3 RDW 14.6 Plt Count 304 MPV 7.1 L Absolute Neuts (auto) 4.3 Neutrophils % 60.2 Lymphocytes % 22.2 Monocytes % 12.5 H Eosinophils % 4.3 Basophils % 0.8 Nucleated RBC % 0 Sodium 137 Potassium 5.0 Chloride 107 Carbon Dioxide 24 Anion Gap 6 L BUN 22.6 H Creatinine 0.9 Est GFR (CKD-EPI)AfAm 73.52 Est GFR (CKD-EPI)NonAf 63.43 POC Glucometer 318 Random Glucose 183 H Calcium 8.4 L Total Bilirubin 0.4 AST 14 L ALT 10 L Alkaline Phosphatase 127 H Total Protein 6.2 L Albumin 2.1 L Microbiology 09/10/19 15:30 Abscess Gram Stain - Final 09/10/19 15:30 Abscess Body Fluid Culture - Preliminary NO AEROBIC GROWTH, 24 HRS 09/10/19 15:30 Abscess AFB Smear Concentration - Final 09/10/19 15:30 Abscess Mycobacterial Culture - Preliminary 09/10/19 15:30 Abscess LISA Preparation - Preliminary 09/10/19 15:30 Abscess Fungal Culture - Preliminary ASSESSMENT AND PLAN: 74 F h/o multiple back surgeries, last 07/2019, admitted for refractory R hip pain shooting down R leg, underwent diagnostic/therapeutic joint tap 1) R tibial pain pain better controlled with increase in gabapentin, addition of baclofen neuro cs, MRI can be done outpatient ortho following, touch base to assess if further intervention is needed bowel regimen fu cultures-neg to date pain mngmt c/s PT eval 2) Hx PE/DVT s/p IVC filter -on xarelto 3) D. CHF-euvolemic, holding meds 4) HTN well controlled, continue current meds 5) T2DM -ISS, basal insulin 6) Afib on AC -bb, rate controlled - AC
[2019-09-12] MEDS: oxyCODONE HCL 5 MG TABLET PO PRN ×2 (14:53→21:20)
[2019-09-12] MEDS: AMINO ACIDS/PROTEIN HYDROLYS 30 ML LIQUID.PKT PO SCH ×2 (14:53→14:58)
--- NOTE | 2019-09-12 17:02 | PN ---
Physical Exam: SUBJECTIVE: Patient seen and examined. Says she is very tired. Offers no NEW complaints. No events overnight. OBJECTIVE: Vital Signs Period Temp Pulse Resp BP Sys/Marcelo Pulse Ox Last 24 Hr 98.6 F-99.6 F 75-99 18-20 110-158/44-67 95 GENERAL: a/o x 3, resting, in nad HEAD: Normal with no signs of trauma. EYES: PERRL, extraocular movements intact ENT: oropharynx clear without exudates, moist mucous membranes. NECK:supple. LUNGS: Breath sounds equal, clear to auscultation bilaterally HEART: Regular rate and rhythm, S1, S2 without murmur, rub or gallop. ABDOMEN: Soft, nontender, nondistended, normoactive bowel sounds EXTREMITIES: 2+ pulses, warm, well-perfused, no edema. R hip pain with movement , tender to palpation Laboratory Results - last 24 hr 09/11/19 09/12/19 09/12/19 23:03 07:03 08:35 WBC 7.2 RBC 3.20 L Hgb 9.0 L Hct 28.0 L MCV 87.4 MCH 28.2 MCHC 32.3 RDW 14.6 Plt Count 304 MPV 7.1 L Absolute Neuts (auto) 4.3 Neutrophils % 60.2 Lymphocytes % 22.2 Monocytes % 12.5 H Eosinophils % 4.3 Basophils % 0.8 Nucleated RBC % 0 Sodium Potassium Chloride Carbon Dioxide Anion Gap BUN Creatinine Est GFR (CKD-EPI)AfAm Est GFR (CKD-EPI)NonAf POC Glucometer 267 179 Random Glucose Calcium Total Bilirubin AST ALT Alkaline Phosphatase Total Protein Albumin 09/12/19 09/12/19 08:35 12:15 WBC RBC Hgb Hct MCV MCH MCHC RDW Plt Count MPV Absolute Neuts (auto) Neutrophils % Lymphocytes % Monocytes % Eosinophils % Basophils % Nucleated RBC % Sodium 137 Potassium 5.0 Chloride 107 Carbon Dioxide 24 Anion Gap 6 L BUN 22.6 H Creatinine 0.9 Est GFR (CKD-EPI)AfAm 73.52 Est GFR (CKD-EPI)NonAf 63.43 POC Glucometer 318 Random Glucose 183 H Calcium 8.4 L Total Bilirubin 0.4 AST 14 L ALT 10 L Alkaline Phosphatase 127 H Total Protein 6.2 L Albumin 2.1 L Active Medications Generic Name Dose Route Start Last Admin Trade Name Freq PRN Reason Stop Dose Admin Amino Acids 30 ml 09/12/19 10:00 09/12/19 14:58 Prosource No Carb Liquid Pkt PO Not Given DAILY [facility] Baclofen 10 mg 09/12/19 14:57 Lioresal - PO BID LISA Carvedilol 12.5 mg 09/10/19 22:00 09/12/19 10:54 Coreg - PO 12.5 mg BID LISA Administration Gabapentin 300 mg 09/12/19 14:57 Neurontin - PO BID LISA Insulin Aspart 1 vial 09/10/19 22:00 09/12/19 12:37 Novolog Vial Sliding Scale - SQ 4 unit ACHS LISA Administration Protocol Leflunomide 10 mg 09/11/19 10:00 09/12/19 10:55 Arava - PO 10 mg DAILY [facility] Administration Lisinopril 5 mg 09/11/19 10:00 09/12/19 10:54 Prinivil PO 5 mg DAILY L[facility] Administration Multivitamins/Minerals 10 ml 09/12/19 10:00 09/12/19 13:03 Infuvite Adult - IV 10 ml DAILY [facility] Administration Oxycodone HCl 10 mg 09/10/19 18:08 09/12/19 14:53 Roxicodone - PO 10 mg Q4H PRN Administration PAIN LEVEL 6-10 Oxycodone HCl 5 mg 09/10/19 18:12 Roxicodone - PO Q4H PRN PAIN LEVEL 1-5 Oxycodone HCl 10 mg 09/11/19 12:45 09/12/19 11:00 Oxycontin - PO 10 mg BID LISA Administration Sodium Chloride 1,000 ml 09/12/19 10:00 09/12/19 13:04 Normal Saline - IV 1,000 ml DAILY [facility] Administration Zolpidem Tartrate 5 mg 09/10/19 20:13 09/11/19 23:10 Ambien - PO 5 mg HS PRN Administration INSOMNIA ASSESSMENT/PLAN: 74 F h/o multiple back surgeries, last 07/2019, admitted for refractory R hip pain shooting down R leg, underwent diagnostic/therapeutic joint tap. Will await ortho recommendations. #R Hip/tibial pain -tibial pain improved still with hip pain. -neuro on board: no evidence of myelopathy per neuro. -myelogram cancelled. -gabapentin, baclofen increased by neuro but patient more lethargic today. decrease dose back to previous dose. -will cont. xarelto -pain control with oxycodone PRN, restart muscle relaxants, Gabapentin for neuropathy -will possibly need revision of hardware, will await ortho recs. -bowel regimen -FU Dr. Borjas reccs #h/o DVT/PE -Cont. Xarelto 20mg daily -/TEDs -has IVC filter #HFpEF -not in acute exacerbation, in fact relatively volume depleted -hold Torsemide, hold IVF, PO hydration #HTN cont. BP meds as tolerated #Insomnia -restart Zolpidem #Hypoalbuminemia -2/2 poor intake, malnourishment -prosource w mvi -Dietary consult #T2DM -ISS -BGM #Afib on AC -rate controlled -cont xarelto FEN: no IVF/daily chem/Na restricted diet. 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 - New Patient This patient is new to me today: Yes Date on this admission: 09/12/19 - Critical Care Critical Care patient: No ATTENDING PHYSICIAN STATEMENT I saw and evaluated the patient. I reviewed the resident's note and discussed the case with the resident. I agree with the resident's findings and plan as documented. SUBJECTIVE: OBJECTIVE: ASSESSMENT AND PLAN:
--- NOTE | 2019-09-12 18:53 | PN ---
Progress Note, Physician History of Present Illness: envets noted Chart reviewed alert awake Oriented Feels good - Current Medication List Current Medications: Active Medications Amino Acids (Prosource No Carb Liquid Pkt) 30 ml PO DAILY [facility] Last Admin: 09/12/19 14:58 Dose: Not Given Baclofen (Lioresal -) 10 mg PO BID [facility] Carvedilol (Coreg -) 12.5 mg PO BID [facility] Last Admin: 09/12/19 10:54 Dose: 12.5 mg Gabapentin (Neurontin -) 300 mg PO BID [facility] Insulin Aspart (Novolog Vial Sliding Scale -) 1 vial SQ ACHS [facility]; Protocol Last Admin: 09/12/19 17:50 Dose: 1 unit Leflunomide (Arava -) 10 mg PO DAILY [facility] Last Admin: 09/12/19 10:55 Dose: 10 mg Lisinopril (Prinivil) 5 mg PO DAILY [facility] Last Admin: 09/12/19 10:54 Dose: 5 mg Multivitamins/Minerals (Infuvite Adult -) 10 ml IV DAILY [facility] Last Admin: 09/12/19 13:03 Dose: 10 ml Oxycodone HCl (Roxicodone -) 10 mg PO Q4H PRN PRN Reason: PAIN LEVEL 6-10 Last Admin: 09/12/19 14:53 Dose: 10 mg Oxycodone HCl (Roxicodone -) 5 mg PO Q4H PRN PRN Reason: PAIN LEVEL 1-5 Oxycodone HCl (Oxycontin -) 10 mg PO BID [facility] Last Admin: 09/12/19 11:00 Dose: 10 mg Sodium Chloride (Normal Saline -) 1,000 ml IV DAILY [facility] Last Admin: 09/12/19 13:04 Dose: 1,000 ml Zolpidem Tartrate (Ambien -) 5 mg PO HS PRN PRN Reason: INSOMNIA Last Admin: 09/11/19 23:10 Dose: 5 mg - Objective Vital Signs: Vital Signs Temperature 98.9 F 09/12/19 14:00 Pulse Rate 89 09/12/19 14:00 Respiratory Rate 20 09/12/19 14:00 Blood Pressure 110/48 L 09/12/19 14:00 O2 Sat by Pulse Oximetry (%) 95 09/11/19 21:00 Constitutional: Yes: Well Nourished Eyes: Yes: WNL Neurological: Yes: Alert, Oriented, Babinski negative ...Motor Strength: WNL Labs: CBC, BMP 09/12/19 08:35 09/12/19 08:35 INR, PTT INR 1.28 (0.83-1.09) H 09/10/19 10:30 Problem List - Problems (1) Back pain Assessment/Plan: OOB to chair Nutrition consult to lose weight PT DVT prophylaxis Taper naroctics please Code(s): M54.9 - DORSALGIA, UNSPECIFIED Qualifiers: Back pain location: low back pain Chronicity: unspecified Back pain laterality: right Sciatica presence: without sciatica Qualified Code(s): M54.5 - Low back pain
[2019-09-13] MEDS: INSULIN SLIDING SCALE (NOVOLOG) 1 VIAL SQ SCH ×4 (06:31→22:07)
[2019-09-13] MEDS ORDERED: INSULIN (NOVOLOG) ASPART 100 UNITS/ML 10ML VIAL ONE ×3 (06:53→19:21)
[2019-09-13 08:26] LABS: BASO % 0.9 % (0-2.0); EOS % 3.7 % (0-4.5); HEMATOCRIT 28.7 % (32.4-45.2); HEMOGLOBIN 9.5 GM/dL (10.7-15.3); LYMPH % 21.3 % (8-40); MCH 28.9 pg (25.7-33.7); MCHC 32.9 g/dl (32.0-36.0); MEAN CELL VOLUME 87.9 fl (80-96); MEAN PLT VOLUME 7.2 fl (7.5-11.1); MONO % 11.5 % (3.8-10.2); NEUT % 62.6 % (42.8-82.8); PLATELET COUNT 326 K/MM3 (134-434); RBC 3.27 M/mm3 (3.60-5.2); RDW 14.5 % (11.6-15.6)
[2019-09-13] MEDS: oxyCODONE HCL 5 MG TABLET PO PRN ×2 (08:30→23:23)
[2019-09-13 08:50] LABS: ALBUMIN 2.4 g/dl (3.4-5.0); BILIRUBIN,TOTAL 0.4 mg/dL (0.2-1); TOT PROT 6.9 g/dl (6.4-8.2)
[2019-09-13] MEDS ORDERED: RIVAROXABAN 20 MG TABLET PO SCH (10:00)
[2019-09-13] MEDS ORDERED: RIVAROXABAN 20 MG TABLET PO ONE (10:00)
[2019-09-13] MEDS: LISINOPRIL 5 MG TABLET (FP) PO SCH (11:03)
[2019-09-13] MEDS: CARVEDILOL 12.5 MG TABLET (FP) PO SCH ×2 (11:03→22:06)
[2019-09-13] MEDS: GABAPENTIN 300 MG CAPSULE PO SCH ×2 (11:03→22:06)
[2019-09-13] MEDS: BACLOFEN 10 MG TABLET (FP) PO SCH ×2 (11:03→22:06)
[2019-09-13] MEDS: AMINO ACIDS/PROTEIN HYDROLYS 30 ML LIQUID.PKT PO SCH ×2 (11:04→11:35)
[2019-09-13] MEDS: LEFLUNOMIDE 10 MG TABLET PO SCH (11:05)
[2019-09-13] MEDS: oxyCODONE HCL 10 MG SUSTAINED ACTING TABLET PO SCH ×2 (11:06→22:05)
--- NOTE | 2019-09-13 13:33 | PN ---
Physical Exam: SUBJECTIVE: Patient seen and examined. Crying, saying she is frustrated with everything that is going on. No NEW complaints. Still with RLE pain. OBJECTIVE: Vital Signs Period Temp Pulse Resp BP Sys/Marcelo Pulse Ox Last 24 Hr 98.2 F-99.5 F 72-89 18-20 110-144/48-68 96 GENERAL: a/o x 3, resting, in nad HEAD: Normal with no signs of trauma. EYES: PERRL, extraocular movements intact ENT: oropharynx clear without exudates, moist mucous membranes. NECK:supple. LUNGS: Breath sounds equal, clear to auscultation bilaterally HEART: Regular rate and rhythm, S1, S2 without murmur, rub or gallop. ABDOMEN: Soft, nontender, nondistended, normoactive bowel sounds EXTREMITIES: 2+ pulses, warm, well-perfused, no edema. R hip pain with movement , tender to palpation Laboratory Results - last 24 hr 09/12/19 09/12/19 09/13/19 17:42 22:02 05:45 WBC RBC Hgb Hct MCV MCH MCHC RDW Plt Count MPV Absolute Neuts (auto) Neutrophils % Lymphocytes % Monocytes % Eosinophils % Basophils % Nucleated RBC % Sodium Potassium Chloride Carbon Dioxide Anion Gap BUN Creatinine Est GFR (CKD-EPI)AfAm Est GFR (CKD-EPI)NonAf POC Glucometer 199 231 212 Random Glucose Calcium Total Bilirubin AST ALT Alkaline Phosphatase Total Protein Albumin 09/13/19 09/13/19 09/13/19 07:58 07:58 11:30 WBC 8.0 RBC 3.27 L Hgb 9.5 L Hct 28.7 L MCV 87.9 MCH 28.9 MCHC 32.9 RDW 14.5 Plt Count 326 MPV 7.2 L Absolute Neuts (auto) 5.0 Neutrophils % 62.6 Lymphocytes % 21.3 Monocytes % 11.5 H Eosinophils % 3.7 Basophils % 0.9 Nucleated RBC % 0 Sodium 137 Potassium 5.0 Chloride 108 H Carbon Dioxide 23 Anion Gap 6 L BUN 24.0 H Creatinine 1.0 Est GFR (CKD-EPI)AfAm 64.73 Est GFR (CKD-EPI)NonAf 55.85 POC Glucometer 258 Random Glucose 208 H Calcium 9.0 Total Bilirubin 0.4 AST 12 L ALT 12 L Alkaline Phosphatase 130 H Total Protein 6.9 Albumin 2.4 L Active Medications Generic Name Dose Route Start Last Admin Trade Name Freq PRN Reason Stop Dose Admin Amino Acids 30 ml 09/12/19 10:00 09/13/19 11:35 Prosource No Carb Liquid Pkt PO Not Given DAILY ON [facility] OF [facility] Baclofen 10 mg 09/12/19 14:57 09/13/19 11:03 Lioresal - PO 10 mg BID LISA Administration Carvedilol 12.5 mg 09/10/19 22:00 09/13/19 11:03 Coreg - PO 12.5 mg BID LISA Administration Gabapentin 300 mg 09/12/19 14:57 09/13/19 11:03 Neurontin - PO 300 mg BID LISA Administration Insulin Aspart 1 vial 09/10/19 22:00 09/13/19 12:01 Novolog Vial Sliding Scale - SQ 3 unit ACHS LISA Administration Protocol Leflunomide 10 mg 09/11/19 10:00 09/13/19 11:05 Arava - PO 10 mg DAILY [facility] Administration Lisinopril 5 mg 09/11/19 10:00 09/13/19 11:03 Prinivil PO 5 mg DAILY [facility] Administration Oxycodone HCl 10 mg 09/10/19 18:08 09/13/19 08:30 Roxicodone - PO 10 mg Q4H PRN Administration PAIN LEVEL 6-10 Oxycodone HCl 5 mg 09/10/19 18:12 Roxicodone - PO Q4H PRN PAIN LEVEL 1-5 Oxycodone HCl 10 mg 09/11/19 12:45 09/13/19 11:06 Oxycontin - PO 10 mg BID LISA Administration Rivaroxaban 20 mg 09/14/19 18:00 Xarelto PO DAILY@1800 ON [facility] Zolpidem Tartrate 5 mg 09/10/19 20:13 09/11/19 23:10 Ambien - PO 5 mg HS PRN Administration INSOMNIA ASSESSMENT/PLAN: 74 F h/o multiple back surgeries, last 07/2019, admitted for refractory R hip pain shooting down R leg, underwent diagnostic/therapeutic joint tap. Will await ortho recommendations. #R Hip/tibial pain -neuro on board: no evidence of myelopathy per neuro. -For IR aspiration of L-spine today -gabapentin, baclofen -cont. xarelto -pain control with oxycodone PRN, restart muscle relaxants, Gabapentin for neuropathy -will possibly need revision of hardware, will await ortho recs. -bowel regimen -FU Dr. Indio oakley #h/o DVT/PE -Cont. Xarelto 20mg daily -/TEDs -has IVC filter #HFpEF -not in acute exacerbation, in fact relatively volume depleted -hold Torsemide, PO hydration #HTN cont. BP meds as tolerated #Insomnia -restart Zolpidem #Hypoalbuminemia -2/2 poor intake, malnourishment -prosource -Dietary consult #T2DM -ISS -BGM #Afib on AC -rate controlled -cont xarelto Visit type - Emergency Visit Emergency Visit: Yes ED Registration Date: 09/07/19 Care time: The patient presented to the Emergency Department on the above date and was hospitalized for further evaluation of their emergent condition. - New Patient This patient is new to me today: Yes Date on this admission: 09/13/19 - Critical Care Critical Care patient: No ATTENDING PHYSICIAN STATEMENT I saw and evaluated the patient. I reviewed the resident's note and discussed the case with the resident. I agree with the resident's findings and plan as documented. SUBJECTIVE: OBJECTIVE: ASSESSMENT AND PLAN:
--- NOTE | 2019-09-13 14:35 | PN ---
Teaching Attending Note Name of Resident: Geraldine Johns ATTENDING PHYSICIAN STATEMENT I saw and evaluated the patient. I reviewed the resident's note and discussed the case with the resident. I agree with the resident's findings and plan as documented. SUBJECTIVE: Seen and examined at bedside. Frustrated, tearful, pain persists OBJECTIVE: Vital Signs - 24 hr 09/12/19 09/12/19 09/12/19 19:15 19:31 21:00 Temperature 99.5 F 99.5 F Pulse Rate 72 Pulse Rate [ Left Lower Arm] Respiratory 20 20 Rate Respiratory Rate [Left Lower Arm] Blood Pressure 137/62 Blood Pressure [Left Lower Arm ] O2 Sat by Pulse 96 Oximetry (%) O2 Sat by Pulse Oximetry (%) [ Left Lower Arm] 09/12/19 09/13/19 09/13/19 23:00 02:00 05:51 Temperature 98.4 F 98.2 F Pulse Rate 87 82 74 Pulse Rate [ Left Lower Arm] Respiratory 20 18 18 Rate Respiratory Rate [Left Lower Arm] Blood Pressure 122/52 L 144/68 136/60 Blood Pressure [Left Lower Arm ] O2 Sat by Pulse Oximetry (%) O2 Sat by Pulse Oximetry (%) [ Left Lower Arm] 09/13/19 09/13/19 13:48 13:59 Temperature Pulse Rate 82 Pulse Rate [ 78 Left Lower Arm] Respiratory 15 Rate Respiratory 15 Rate [Left Lower Arm] Blood Pressure 122/61 Blood Pressure 112/81 [Left Lower Arm ] O2 Sat by Pulse 100 Oximetry (%) O2 Sat by Pulse 96 Oximetry (%) [ Left Lower Arm] PE: Gen: NAD Chest CTAB, no crackles, no wheezing CVS S1, S2+, RRR, no m/r/g Abd Soft, NT, ND, BS+ Ext No LE edema, no calf tenderness, R hip pain on palpation, right knee scar Current Medications Amino Acids (Prosource No Carb Liquid Pkt) 30 ml PO DAILY [facility] Last Admin: 09/13/19 11:35 Dose: Not Given Baclofen (Lioresal -) 10 mg PO BID [facility] Last Admin: 09/13/19 11:03 Dose: 10 mg Carvedilol (Coreg -) 12.5 mg PO BID [facility] Last Admin: 09/13/19 11:03 Dose: 12.5 mg Gabapentin (Neurontin -) 300 mg PO BID [facility] Last Admin: 09/13/19 11:03 Dose: 300 mg Insulin Aspart (Novolog Vial Sliding Scale -) 1 vial SQ ACHS [facility]; Protocol Last Admin: 09/13/19 12:01 Dose: 3 unit Leflunomide (Arava -) 10 mg PO DAILY [facility] Last Admin: 09/13/19 11:05 Dose: 10 mg Lisinopril (Prinivil) 5 mg PO DAILY [facility] Last Admin: 09/13/19 11:03 Dose: 5 mg Oxycodone HCl (Roxicodone -) 10 mg PO Q4H PRN PRN Reason: PAIN LEVEL 6-10 Last Admin: 09/13/19 08:30 Dose: 10 mg Oxycodone HCl (Roxicodone -) 5 mg PO Q4H PRN PRN Reason: PAIN LEVEL 1-5 Oxycodone HCl (Oxycontin -) 10 mg PO BID [facility] Last Admin: 09/13/19 11:06 Dose: 10 mg Rivaroxaban (Xarelto) 20 mg PO DAILY@1800 [facility] Zolpidem Tartrate (Ambien -) 5 mg PO HS PRN PRN Reason: INSOMNIA Last Admin: 09/11/19 23:10 Dose: 5 mg Laboratory Results - last 24 hr 09/12/19 09/12/19 09/13/19 17:42 22:02 05:45 WBC RBC Hgb Hct MCV MCH MCHC RDW Plt Count MPV Absolute Neuts (auto) Neutrophils % Lymphocytes % Monocytes % Eosinophils % Basophils % Nucleated RBC % Sodium Potassium Chloride Carbon Dioxide Anion Gap BUN Creatinine Est GFR (CKD-EPI)AfAm Est GFR (CKD-EPI)NonAf POC Glucometer 199 231 212 Random Glucose Calcium Total Bilirubin AST ALT Alkaline Phosphatase Total Protein Albumin 09/13/19 09/13/19 09/13/19 07:58 07:58 11:30 WBC 8.0 RBC 3.27 L Hgb 9.5 L Hct 28.7 L MCV 87.9 MCH 28.9 MCHC 32.9 RDW 14.5 Plt Count 326 MPV 7.2 L Absolute Neuts (auto) 5.0 Neutrophils % 62.6 Lymphocytes % 21.3 Monocytes % 11.5 H Eosinophils % 3.7 Basophils % 0.9 Nucleated RBC % 0 Sodium 137 Potassium 5.0 Chloride 108 H Carbon Dioxide 23 Anion Gap 6 L BUN 24.0 H Creatinine 1.0 Est GFR (CKD-EPI)AfAm 64.73 Est GFR (CKD-EPI)NonAf 55.85 POC Glucometer 258 Random Glucose 208 H Calcium 9.0 Total Bilirubin 0.4 AST 12 L ALT 12 L Alkaline Phosphatase 130 H Total Protein 6.9 Albumin 2.4 L Microbiology 09/10/19 15:30 Abscess Gram Stain - Final 09/10/19 15:30 Abscess Body Fluid Culture - Preliminary NO AEROBIC GROWTH, 24 HRS 09/10/19 15:30 Abscess Anaerobic Culture - Preliminary No growth. ASSESSMENT AND PLAN: 74 F h/o multiple back surgeries, last 07/2019, admitted for refractory R hip pain shooting down R leg, underwent diagnostic/therapeutic joint tap 1) R tibial pain IR today for drainage of subq LS abscess cw pain mngmt- gabapentin, baclofen, oxycodone prn bowel regimen fu cultures ortho and pain mngmt c/s PT eval 2) Hx PE/DVT s/p IVC filter -on xarelto 3) D. CHF-euvolemic, holding meds 4) HTN well controlled, continue current meds 5) T2DM -ISS, basal insulin 6) Afib on AC -bb, rate controlled -cw AC
[2019-09-14] MEDS: oxyCODONE HCL 5 MG TABLET PO PRN ×3 (06:30→17:11)
[2019-09-14] MEDS: INSULIN SLIDING SCALE (NOVOLOG) 1 VIAL SQ SCH ×4 (06:45→21:16)
[2019-09-14 08:30] LABS: EOS % 4.9 % (0-4.5); HEMATOCRIT 26.3 % (32.4-45.2); HEMOGLOBIN 8.6 GM/dL (10.7-15.3); LYMPH % 25.9 % (8-40); MCH 28.9 pg (25.7-33.7); MCHC 32.6 g/dl (32.0-36.0); MEAN CELL VOLUME 88.6 fl (80-96); MEAN PLT VOLUME 7.6 fl (7.5-11.1); NEUT % 55.2 % (42.8-82.8); PLATELET COUNT 304 K/MM3 (134-434); RBC 2.97 M/mm3 (3.60-5.2); RDW 14.8 % (11.6-15.6)
[2019-09-14 09:01] LABS: ALBUMIN 2.1 g/dl (3.4-5.0); BILIRUBIN,TOTAL 0.4 mg/dL (0.2-1); BLOOD UREA NITROGEN 25.6 mg/dL (7-18); CALCIUM 8.5 mg/dL (8.5-10.1); CREATININE 0.9 mg/dL (0.55-1.3); POTASSIUM 5.2 mmol/L (3.5-5.1); TOT PROT 6.1 g/dl (6.4-8.2)
[2019-09-14] MEDS: oxyCODONE HCL 10 MG SUSTAINED ACTING TABLET PO SCH ×2 (10:42→21:14)
[2019-09-14] MEDS: CARVEDILOL 12.5 MG TABLET (FP) PO SCH ×2 (10:44→21:14)
[2019-09-14] MEDS: GABAPENTIN 300 MG CAPSULE PO SCH ×2 (10:44→21:18)
[2019-09-14] MEDS: BACLOFEN 10 MG TABLET (FP) PO SCH ×2 (10:44→21:14)
[2019-09-14] MEDS: AMINO ACIDS/PROTEIN HYDROLYS 30 ML LIQUID.PKT PO SCH (10:45)
[2019-09-14] MEDS: LISINOPRIL 5 MG TABLET (FP) PO SCH (10:45)
[2019-09-14] MEDS: LEFLUNOMIDE 10 MG TABLET PO SCH (10:47)
[2019-09-14] MEDS ORDERED: INSULIN (NOVOLOG) ASPART 100 UNITS/ML 10ML VIAL ONE (12:14)
--- NOTE | 2019-09-14 14:24 | PN ---
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 Received L hip injection, awaiting culture, still in pain, following with Dr. Borjas. Afebrile, VSS. PE GA AAox3, speaking in full sentences, mild distress, tired appearing HEENT NC/AT, EOMI, dry MM, neck supple Chest CTAB, no crackles, no wheezing CVS S1, S2+, RRR, no m/r/g Abd Soft, NT, ND, BS+ Ext No LE edema, no calf tenderness, R hip pain on manipulation (improved from prior), good ROM L hip/leg Vital Signs - 24 hr 09/13/19 09/13/19 09/13/19 18:23 21:00 23:00 Temperature 99.6 F Pulse Rate 86 99 H Respiratory 16 16 20 Rate Blood Pressure 133/75 125/78 O2 Sat by Pulse 95 Oximetry (%) 09/14/19 09/14/19 03:00 06:00 Temperature 98.6 F 98.2 F Pulse Rate 75 83 Respiratory 20 20 Rate Blood Pressure 103/60 139/63 O2 Sat by Pulse Oximetry (%) Microbiology 09/13/19 15:06 Abscess AFB Smear Concentration - Preliminary 09/13/19 15:06 Abscess Mycobacterial Culture - Preliminary 09/13/19 15:06 Abscess LISA Preparation - Preliminary 09/13/19 15:06 Abscess Fungal Culture - Preliminary 09/10/19 15:30 Abscess Gram Stain - Final 09/10/19 15:30 Abscess Body Fluid Culture - Preliminary NO AEROBIC GROWTH, 24 HRS 09/10/19 15:30 Abscess Anaerobic Culture - Preliminary No growth. 09/10/19 15:30 Abscess AFB Smear Concentration - Final 09/10/19 15:30 Abscess Mycobacterial Culture - Preliminary 09/10/19 15:30 Abscess LISA Preparation - Preliminary 09/10/19 15:30 Abscess Fungal Culture - Preliminary 09/07/19 14:05 Urine - Urine Clean Catch Urine Culture - Final Normal Urogenital [place] Laboratory Results - last 24 hr 09/13/19 09/13/19 09/14/19 17:23 21:45 06:33 WBC RBC Hgb Hct MCV MCH MCHC RDW Plt Count MPV Absolute Neuts (auto) Neutrophils % Lymphocytes % Monocytes % Eosinophils % Basophils % Nucleated RBC % Sodium Potassium Chloride Carbon Dioxide Anion Gap BUN Creatinine Est GFR (CKD-EPI)AfAm Est GFR (CKD-EPI)NonAf POC Glucometer 143 227 167 Random Glucose Calcium Total Bilirubin AST ALT Alkaline Phosphatase Total Protein Albumin 09/14/19 09/14/19 09/14/19 07:35 07:35 12:09 WBC 6.0 RBC 2.97 L Hgb 8.6 L Hct 26.3 L MCV 88.6 MCH 28.9 MCHC 32.6 RDW 14.8 Plt Count 304 MPV 7.6 Absolute Neuts (auto) 3.3 Neutrophils % 55.2 Lymphocytes % 25.9 D Monocytes % 13.0 H Eosinophils % 4.9 H Basophils % 1.0 Nucleated RBC % 0 Sodium 139 Potassium 5.2 H Chloride 111 H Carbon Dioxide 22 Anion Gap 6 L BUN 25.6 H Creatinine 0.9 Est GFR (CKD-EPI)AfAm 73.52 Est GFR (CKD-EPI)NonAf 63.43 POC Glucometer 210 Random Glucose 177 H Calcium 8.5 Total Bilirubin 0.4 AST 14 L ALT 12 L Alkaline Phosphatase 112 Total Protein 6.1 L Albumin 2.1 L Current Medications Generic Name Dose Route Start Last Admin Trade Name Freq PRN Reason Stop Dose Admin Amino Acids 30 ml 09/12/19 10:00 09/14/19 10:45 Prosource No Carb Liquid Pkt PO Not Given DAILY LISA Baclofen 10 mg 09/12/19 14:57 09/14/19 10:44 Lioresal - PO 10 mg BID LISA Administration Carvedilol 12.5 mg 09/10/19 22:00 09/14/19 10:44 Coreg - PO 12.5 mg BID LISA Administration Gabapentin 300 mg 09/12/19 14:57 09/14/19 10:44 Neurontin - PO 300 mg BID LISA Administration Insulin Aspart 1 vial 09/10/19 22:00 09/14/19 12:24 Novolog Vial Sliding Scale - SQ 2 unit ACHS LISA Administration Protocol Leflunomide 10 mg 09/11/19 10:00 09/14/19 10:47 Arava - PO 10 mg DAILY LISA Administration Lisinopril 5 mg 09/11/19 10:00 09/14/19 10:45 Prinivil PO 5 mg DAILY LISA Administration Oxycodone HCl 10 mg 09/11/19 12:45 09/14/19 10:42 Oxycontin - PO 10 mg BID LISA Administration Oxycodone HCl 10 mg 09/14/19 10:27 09/14/19 12:27 Roxicodone - PO 10 mg Q4H PRN Administration PAIN LEVEL 6-10 Rivaroxaban 20 mg 09/14/19 18:00 Xarelto PO DAILY@1800 LISA A/P: 74 F h/o multiple back surgeries, last 07/2019, admitted for refractory R hip pain shooting down R leg, underwent diagnostic/therapeutic joint tap. Will await ortho recommendations. R tibial pain (+) Voiding; (+) Flatus; (+) BM pain improved w/ Dilaudid, cont., cont. muscle relaxants, Gabapentin for neuropathy improved after drain R hip, s/p drain L side, awaiting cx, afebrile VSS aggressive bowel regimen, DVT ppx with Xarelto restart Dr. Borjas: Ortho service h/o DVT/PE Cont. Xarelto 20mg daily /TEDs has IVC filter HFpEF not in acute exacverbation, in fact relatively volume depleted hold Torsemide, hold IVF, PO hydration for now, cont. to monitor lytes and fluid status HTN cont. BP meds as tolerated Insomnia restart Zolpidem Hypoalbuminemia 2/2 poor intake, malnourishment Dietary recs follow T2DM ISS, basal insulin as needed to titrate F/S 140-180. Afib on AC cont. AC, BB, rate controlled DVT ppx: Xarelto FEN: no IVF/daily chem/Na restricted diet Med-Surg Visit type - Emergency Visit Emergency Visit: Yes ED Registration Date: 09/07/19 Care time: The patient presented to the Emergency Department on the above date and was hospitalized for further evaluation of their emergent condition. - New Patient This patient is new to me today: Yes Date on this admission: 09/14/19 - Critical Care Critical Care patient: No - Discharge Referral Referred to [facility] Med P.C.: No
[2019-09-14] MEDS: RIVAROXABAN 20 MG TABLET PO SCH (17:11)
[2019-09-15] MEDS: oxyCODONE HCL 5 MG TABLET PO PRN ×4 (00:09→17:38)
[2019-09-15] MEDS ORDERED: INSULIN (NOVOLOG) ASPART 100 UNITS/ML 10ML VIAL ONE (06:16)
[2019-09-15] MEDS: INSULIN SLIDING SCALE (NOVOLOG) 1 VIAL SQ SCH ×4 (06:22→22:03)
[2019-09-15] MEDS: AMINO ACIDS/PROTEIN HYDROLYS 30 ML LIQUID.PKT PO SCH ×2 (09:38→10:59)
[2019-09-15] MEDS: LISINOPRIL 5 MG TABLET (FP) PO SCH (09:38)
[2019-09-15] MEDS: LEFLUNOMIDE 10 MG TABLET PO SCH (09:38)
[2019-09-15] MEDS: GABAPENTIN 300 MG CAPSULE PO SCH ×2 (09:38→22:05)
[2019-09-15] MEDS: CARVEDILOL 12.5 MG TABLET (FP) PO SCH ×2 (09:38→22:05)
[2019-09-15] MEDS: oxyCODONE HCL 10 MG SUSTAINED ACTING TABLET PO SCH ×2 (09:38→22:04)
[2019-09-15] MEDS: BACLOFEN 10 MG TABLET (FP) PO SCH ×2 (09:39→22:05)
--- NOTE | 2019-09-15 11:16 | PN ---
Physical Exam: SUBJECTIVE: Patient seen and examined. She complains of pain in her right buttock that radiates down her right leg. OBJECTIVE: Vital Signs Period Temp Pulse Resp BP Sys/Marcelo Pulse Ox Last 24 Hr 98.2 F-98.7 F 71-76 18-18 108-149/47-71 98 GENERAL: The patient is awake, alert, and fully oriented, in no acute distress. LUNGS: Breath sounds equal, clear to auscultation bilaterally, no wheezes, no crackles, no accessory muscle use. HEART: Regular rate and rhythm, S1, S2 without murmur, rub or gallop. ABDOMEN: Obese, soft, nontender, nondistended, normoactive bowel sounds, no guarding, no rebound, no hepatosplenomegaly, no masses. EXTREMITIES: 2+ pulses, warm, well-perfused, no edema. Laboratory Results - last 24 hr 09/14/19 09/14/19 09/14/19 12:09 17:06 21:13 POC Glucometer 210 142 168 09/15/19 06:19 POC Glucometer 170 Active Medications Generic Name Dose Route Start Last Admin Trade Name Tom PRN Reason Stop Dose Admin Amino Acids 30 ml 09/12/19 10:00 09/15/19 10:59 Prosource No Carb Liquid Pkt PO Not Given DAILY LISA Baclofen 10 mg 09/12/19 14:57 09/15/19 09:39 Lioresal - PO 10 mg BID LISA Administration Carvedilol 12.5 mg 09/10/19 22:00 09/15/19 09:38 Coreg - PO 12.5 mg BID LISA Administration Gabapentin 300 mg 09/12/19 14:57 09/15/19 09:38 Neurontin - PO 300 mg BID LISA Administration Insulin Aspart 1 vial 09/10/19 22:00 09/15/19 06:22 Novolog Vial Sliding Scale - SQ 1 unit ACHS LISA Administration Protocol Leflunomide 10 mg 09/11/19 10:00 09/15/19 09:38 Arava - PO 10 mg DAILY LISA Administration Lisinopril 5 mg 09/11/19 10:00 09/15/19 09:38 Prinivil PO 5 mg DAILY LISA Administration Oxycodone HCl 10 mg 09/11/19 12:45 09/15/19 09:38 Oxycontin - PO 10 mg BID LISA Administration Oxycodone HCl 10 mg 09/14/19 10:27 09/15/19 06:27 Roxicodone - PO 10 mg Q4H PRN Administration PAIN LEVEL 6-10 Rivaroxaban 20 mg 09/14/19 18:00 09/14/19 17:11 Xarelto PO 20 mg DAILY@1800 LISA Administration ASSESSMENT/PLAN: This is a 74 year old woman with a history of HTN, chronic systolic and diastolic heart failure, non-ischemic cardiomyopathy, atrial fib, type 2 DM, RA , DVT/PE, lumbar spinal stenosis, lumbar spine surgeries who presented to the ED with right hip pain. 1. Lumbar stenosis with radiculopathy - s/p L4, L5, S1 laminectomies, facetectomies, and foraminotomies; L3-S1 posterolateral arthrodesis, repair of incidental durotomy 07/16/19 - s/p pigtail drainage of posterior lumbar spine seroma - Still having right buttock/thigh pain - Continue Neurontin, Baclofen, OxyContin, oxycodone IR as needed - Ortho follow-up 2. HTN - Continue lisinopril, Coreg 3. History of atrial fibrillation - Currently in sinus rhythm - Continue Coreg, Xarelto 4. Chronic systolic and diastolic heart failure - Stable - Continue lisinopril, Coreg 5. Non-ischemic cardiomyopathy 6. Type 2 DM - Continue Novolog sliding scale 7. History of DVT/PE - Has IVC filter - Heme previously recommended lifetime anticoagulation - Continue Xarelto 8. Rheumatoid arthritis - Continue Arava 9. Anemia - Likely secondary to chronic illness Visit type - Emergency Visit Emergency Visit: Yes ED Registration Date: 09/07/19 Care time: The patient presented to the Emergency Department on the above date and was hospitalized for further evaluation of their emergent condition. - New Patient This patient is new to me today: Yes Date on this admission: 09/15/19 - Critical Care Critical Care patient: No - Discharge Referral Referred to [facility] Med P.C.: No
--- NOTE | 2019-09-15 12:38 | PN ---
Progress Note (short form) - Note Progress Note: Apyrexial OriginaL left radiculopathic pain relieved by the lumbar surgery a few months ago Admitted for R LE prox and tibial pain for diagnostic workup. Vague diagnosis ?neurogenic ? hip loosening ? recurrence of previous tibial infection Instillation of marcaine into the hip no relief Generally more comfortable Pig tail drainage of the posterior seroma on the lumbar spine helped the majority of pain Tibial pain gone R LE prox lateral thigh pain persists Walking No neurovascular deficit. PLAN PT mobilize will review re trochanteric steroid injection Continue pigtail drainage
[2019-09-15] MEDS: RIVAROXABAN 20 MG TABLET PO SCH (17:38)
[2019-09-16] MEDS: oxyCODONE HCL 5 MG TABLET PO PRN ×4 (03:35→20:14)
[2019-09-16] MEDS: INSULIN SLIDING SCALE (NOVOLOG) 1 VIAL SQ SCH ×4 (07:33→23:09)
[2019-09-16 08:51] LABS: BLOOD UREA NITROGEN 22.4 mg/dL (7-18); CALCIUM 8.4 mg/dL (8.5-10.1); POTASSIUM 5.3 mmol/L (3.5-5.1)
[2019-09-16 08:59] LABS: HEMATOCRIT 25.9 % (32.4-45.2); HEMOGLOBIN 8.4 GM/dL (10.7-15.3); MCH 28.4 pg (25.7-33.7); MCHC 32.3 g/dl (32.0-36.0); MEAN CELL VOLUME 87.8 fl (80-96); MEAN PLT VOLUME 7.3 fl (7.5-11.1); PLATELET COUNT 310 K/MM3 (134-434); RBC 2.95 M/mm3 (3.60-5.2); RDW 14.9 % (11.6-15.6); WHITE BLOOD COUNT 5.4 K/mm3 (4.0-10.0)
[2019-09-16] MEDS: BACLOFEN 10 MG TABLET (FP) PO SCH ×2 (10:37→23:04)
[2019-09-16] MEDS: GABAPENTIN 300 MG CAPSULE PO SCH ×2 (10:37→23:09)
[2019-09-16] MEDS: oxyCODONE HCL 10 MG SUSTAINED ACTING TABLET PO SCH ×2 (10:38→23:04)
[2019-09-16] MEDS: LISINOPRIL 5 MG TABLET (FP) PO SCH (10:38)
[2019-09-16] MEDS: AMINO ACIDS/PROTEIN HYDROLYS 30 ML LIQUID.PKT PO SCH (10:39)
[2019-09-16] MEDS: CARVEDILOL 12.5 MG TABLET (FP) PO SCH ×2 (10:39→23:04)
[2019-09-16] MEDS: LEFLUNOMIDE 10 MG TABLET PO SCH (10:39)
--- NOTE | 2019-09-16 14:37 | PN ---
Physical Exam: SUBJECTIVE: Patient seen and examined. She is complaining of right hip pain but she is getting relief with oxycodone. OBJECTIVE: Vital Signs Period Temp Pulse Resp BP Sys/Marcelo Pulse Ox Last 24 Hr 98.0 F-98.8 F 65-88 18-18 105-134/44-61 94 GENERAL: The patient is awake, alert, and fully oriented, in no acute distress. LUNGS: Breath sounds equal, clear to auscultation bilaterally, no wheezes, no crackles, no accessory muscle use. HEART: Regular rate and rhythm, S1, S2 without murmur, rub or gallop. ABDOMEN: Obese, soft, nontender, nondistended, normoactive bowel sounds, no guarding, no rebound, no hepatosplenomegaly, no masses. EXTREMITIES: 2+ pulses, warm, well-perfused, no edema. Laboratory Results - last 24 hr 09/15/19 09/15/19 09/16/19 17:38 22:01 07:12 WBC 5.4 RBC 2.95 L Hgb 8.4 L Hct 25.9 L MCV 87.8 MCH 28.4 MCHC 32.3 RDW 14.9 Plt Count 310 MPV 7.3 L Sodium Potassium Chloride Carbon Dioxide Anion Gap BUN Creatinine Est GFR (CKD-EPI)AfAm Est GFR (CKD-EPI)NonAf POC Glucometer 147 181 Random Glucose Calcium 09/16/19 09/16/19 09/16/19 07:12 07:32 11:28 WBC RBC Hgb Hct MCV MCH MCHC RDW Plt Count MPV Sodium 137 Potassium 5.3 H Chloride 108 H Carbon Dioxide 23 Anion Gap 5 L BUN 22.4 H Creatinine 1.0 Est GFR (CKD-EPI)AfAm 64.73 Est GFR (CKD-EPI)NonAf 55.85 POC Glucometer 187 241 Random Glucose 201 H Calcium 8.4 L Active Medications Generic Name Dose Route Start Last Admin Trade Name Freq PRN Reason Stop Dose Admin Amino Acids 30 ml 09/12/19 10:00 09/16/19 10:39 Prosource No Carb Liquid Pkt PO Not Given DAILY LISA Baclofen 10 mg 09/12/19 14:57 09/16/19 10:37 Lioresal - PO 10 mg BID LISA Administration Carvedilol 12.5 mg 09/10/19 22:00 09/16/19 10:39 Coreg - PO 12.5 mg BID LISA Administration Gabapentin 300 mg 09/12/19 14:57 09/16/19 10:37 Neurontin - PO 300 mg BID LISA Administration Insulin Aspart 1 vial 09/10/19 22:00 09/16/19 11:28 Novolog Vial Sliding Scale - SQ 2 unit ACHS LISA Administration Protocol Leflunomide 10 mg 09/11/19 10:00 09/16/19 10:39 Arava - PO 10 mg DAILY LISA Administration Lisinopril 5 mg 09/11/19 10:00 09/16/19 10:38 Prinivil PO 5 mg DAILY LISA Administration Oxycodone HCl 10 mg 09/11/19 12:45 09/16/19 10:38 Oxycontin - PO 10 mg BID LISA Administration Oxycodone HCl 10 mg 09/14/19 10:27 09/16/19 11:26 Roxicodone - PO 10 mg Q4H PRN Administration PAIN LEVEL 6-10 Rivaroxaban 20 mg 09/14/19 18:00 09/15/19 17:38 Xarelto PO 20 mg DAILY@1800 LISA Administration ASSESSMENT/PLAN: This is a 74 year old woman with a history of HTN, chronic systolic and diastolic heart failure, non-ischemic cardiomyopathy, atrial fib, type 2 DM, RA , DVT/PE, lumbar spinal stenosis, lumbar spine surgeries who presented to the ED with right hip pain. 1. Lumbar stenosis with radiculopathy - s/p L4, L5, S1 laminectomies, facetectomies, and foraminotomies; L3-S1 posterolateral arthrodesis, repair of incidental durotomy 07/16/19 - s/p pigtail drainage of posterior lumbar spine seroma - Still having right buttock/thigh pain - Continue Neurontin, Baclofen, OxyContin, oxycodone IR as needed - Continue PT 2. HTN - Continue lisinopril, Coreg 3. History of atrial fibrillation - Remains in sinus rhythm - Continue Coreg, Xarelto 4. Chronic systolic and diastolic heart failure - Stable - Continue lisinopril, Coreg 5. Non-ischemic cardiomyopathy 6. Type 2 DM - Continue Novolog sliding scale 7. History of DVT/PE - Has IVC filter - Heme previously recommended lifetime anticoagulation - Continue Xarelto 8. Rheumatoid arthritis - Continue Arava 9. Anemia - Likely secondary to chronic illness - Continue to monitor hgb 10. Obesity with BMI 36.7 Visit type - Emergency Visit Emergency Visit: Yes ED Registration Date: 09/07/19 Care time: The patient presented to the Emergency Department on the above date and was hospitalized for further evaluation of their emergent condition. - New Patient This patient is new to me today: No - Critical Care Critical Care patient: No - Discharge Referral Referred to [facility] Med P.C.: No
[2019-09-16] MEDS: RIVAROXABAN 20 MG TABLET PO SCH (17:28)
[2019-09-17] MEDS: oxyCODONE HCL 5 MG TABLET PO PRN ×4 (01:58→18:50)
[2019-09-17] MEDS: INSULIN SLIDING SCALE (NOVOLOG) 1 VIAL SQ SCH ×4 (06:03→22:19)
[2019-09-17] MEDS: CARVEDILOL 12.5 MG TABLET (FP) PO SCH ×2 (10:57→22:19)
[2019-09-17] MEDS: AMINO ACIDS/PROTEIN HYDROLYS 30 ML LIQUID.PKT PO SCH ×2 (10:57→15:27)
[2019-09-17] MEDS: LISINOPRIL 5 MG TABLET (FP) PO SCH (10:57)
[2019-09-17] MEDS: BACLOFEN 10 MG TABLET (FP) PO SCH ×2 (10:57→22:18)
[2019-09-17] MEDS: oxyCODONE HCL 10 MG SUSTAINED ACTING TABLET PO SCH ×2 (10:57→22:18)
[2019-09-17] MEDS: GABAPENTIN 300 MG CAPSULE PO SCH ×2 (10:57→22:18)
[2019-09-17] MEDS ORDERED: PT OWN MED DRAWER 7, Y5N ONE ×2 (12:04→12:47)
[2019-09-17] MEDS: LEFLUNOMIDE 10 MG TABLET PO SCH (12:14)
--- NOTE | 2019-09-17 13:19 | PN ---
Physical Exam: SUBJECTIVE: Patient seen and examined. She still complains of right buttock and leg pain. OBJECTIVE: Vital Signs Period Temp Pulse Resp BP Sys/Marcelo Pulse Ox Last 24 Hr 98.0 F-98.9 F 65-91 18-20 110-149/47-75 97 GENERAL: The patient is awake, alert, and fully oriented, in no acute distress. LUNGS: Breath sounds equal, clear to auscultation bilaterally, no wheezes, no crackles, no accessory muscle use. HEART: Regular rate and rhythm, S1, S2 without murmur, rub or gallop. ABDOMEN: Obese, soft, nontender, nondistended, normoactive bowel sounds, no guarding, no rebound, no hepatosplenomegaly, no masses. EXTREMITIES: 2+ pulses, warm, well-perfused, no edema. Laboratory Results - last 24 hr 09/16/19 09/16/19 09/17/19 17:21 23:07 05:42 POC Glucometer 173 166 156 09/17/19 11:50 POC Glucometer 242 Active Medications Generic Name Dose Route Start Last Admin Trade Name Freq PRN Reason Stop Dose Admin Amino Acids 30 ml 09/12/19 10:00 09/17/19 10:57 Prosource No Carb Liquid Pkt PO 30 ml DAILY ILSA Administration Baclofen 10 mg 09/12/19 14:57 09/17/19 10:57 Lioresal - PO 10 mg BID LISA Administration Carvedilol 12.5 mg 09/10/19 22:00 09/17/19 10:57 Coreg - PO 12.5 mg BID LISA Administration Gabapentin 300 mg 09/12/19 14:57 09/17/19 10:57 Neurontin - PO 300 mg BID LISA Administration Insulin Aspart 1 vial 09/10/19 22:00 09/17/19 11:52 Novolog Vial Sliding Scale - SQ 2 unit ACHS LISA Administration Protocol Leflunomide 10 mg 09/11/19 10:00 09/17/19 12:14 Arava - PO 10 mg DAILY LISA Administration Lisinopril 5 mg 09/11/19 10:00 09/17/19 10:57 Prinivil PO 5 mg DAILY LISA Administration Oxycodone HCl 10 mg 09/11/19 12:45 09/17/19 10:57 Oxycontin - PO 10 mg BID LISA Administration Oxycodone HCl 10 mg 09/14/19 10:27 09/17/19 06:04 Roxicodone - PO 10 mg Q4H PRN Administration PAIN LEVEL 6-10 Rivaroxaban 20 mg 09/14/19 18:00 09/16/19 17:28 Xarelto PO 20 mg DAILY@1800 LISA Administration ASSESSMENT/PLAN: This is a 74 year old woman with a history of HTN, chronic systolic and diastolic heart failure, non-ischemic cardiomyopathy, atrial fib, type 2 DM, RA , DVT/PE, lumbar spinal stenosis, lumbar spine surgeries who presented to the ED with right hip pain. 1. Lumbar stenosis with radiculopathy - s/p L4, L5, S1 laminectomies, facetectomies, and foraminotomies; L3-S1 posterolateral arthrodesis, repair of incidental durotomy 07/16/19 - s/p pigtail drainage of posterior lumbar spine seroma - Still having right buttock/thigh pain - Continue Neurontin, Baclofen, OxyContin, oxycodone IR as needed - Continue PT - Ortho follow-up 2. HTN - Continue lisinopril, Coreg 3. History of atrial fibrillation - Remains in sinus rhythm - Continue Coreg, Xarelto 4. Chronic systolic and diastolic heart failure - Stable - Continue lisinopril, Coreg 5. Non-ischemic cardiomyopathy 6. Type 2 DM - Continue Novolog sliding scale 7. History of DVT/PE - Has IVC filter - Heme previously recommended lifetime anticoagulation - Continue Xarelto 8. Rheumatoid arthritis - Continue Arava 9. Anemia - Likely secondary to chronic illness - Continue to monitor hgb 10. Obesity with BMI 36.7 Visit type - Emergency Visit Emergency Visit: Yes ED Registration Date: 09/07/19 Care time: The patient presented to the Emergency Department on the above date and was hospitalized for further evaluation of their emergent condition. - New Patient This patient is new to me today: No - Critical Care Critical Care patient: No - Discharge Referral Referred to [facility] Med P.C.: No
[2019-09-17] MEDS: RIVAROXABAN 20 MG TABLET PO SCH (17:33)
[2019-09-18] MEDS: oxyCODONE HCL 5 MG TABLET PO PRN ×4 (01:59→17:09)
[2019-09-18] MEDS: INSULIN SLIDING SCALE (NOVOLOG) 1 VIAL SQ SCH ×4 (06:17→22:13)
--- NOTE | 2019-09-18 07:39 | PN ---
Physical Exam: SUBJECTIVE: Patient seen and examined at bed side , she is in bed in NAD reports some residual pain in hip walk 50 steps with PT spoke with Dr Indio rogers recommend to remove the Pig tail if draining less than 20 cc and walk her with PT , then dc home OBJECTIVE: Vital Signs Period Temp Pulse Resp BP Sys/Marcelo Pulse Ox Last 24 Hr 97.6 F-98.9 F 67-88 20-20 105-137/53-69 96-98 Head: NC/AT Neck: supple , MMM Lungs: CTA B/l Abdomen: obese, soft NT, NT , positive BS All 4 q , abdominal surgical scar Heart: RRR B/L knee surgical scar right hip draining seracenous fluids no focal deficit , sensation intact , move all ext walk with PT with walker Laboratory Results - last 24 hr 09/17/19 09/17/19 09/17/19 11:50 17:25 21:47 POC Glucometer 242 147 159 09/18/19 06:15 POC Glucometer 146 Active Medications Generic Name Dose Route Start Last Admin Trade Name Tom PRN Reason Stop Dose Admin Amino Acids 30 ml 09/12/19 10:00 09/17/19 15:27 Prosource No Carb Liquid Pkt PO Not Given DAILY LISA Baclofen 10 mg 09/12/19 14:57 09/17/19 22:18 Lioresal - PO 10 mg BID LISA Administration Carvedilol 12.5 mg 09/10/19 22:00 09/17/19 22:19 Coreg - PO 12.5 mg BID LISA Administration Gabapentin 300 mg 09/12/19 14:57 09/17/19 22:18 Neurontin - PO 300 mg BID LISA Administration Insulin Aspart 1 vial 09/10/19 22:00 09/18/19 06:17 Novolog Vial Sliding Scale - SQ Not Given ACHS LISA Protocol Leflunomide 10 mg 09/11/19 10:00 09/17/19 12:14 Arava - PO 10 mg DAILY LISA Administration Lisinopril 5 mg 09/11/19 10:00 09/17/19 10:57 Prinivil PO 5 mg DAILY LISA Administration Oxycodone HCl 10 mg 09/11/19 12:45 09/17/19 22:18 Oxycontin - PO 10 mg BID LISA Administration Oxycodone HCl 10 mg 09/14/19 10:27 09/18/19 01:59 Roxicodone - PO 10 mg Q4H PRN Administration PAIN LEVEL 6-10 Rivaroxaban 20 mg 09/14/19 18:00 09/17/19 17:33 Xarelto PO 20 mg DAILY@1800 LISA Administration CBC, BMP 09/16/19 07:12 09/16/19 07:12 ASSESSMENT/PLAN: 74 F h/o multiple back surgeries, last 07/2019, admitted for refractory R hip pain shooting down R leg, underwent diagnostic/therapeutic joint tap. Will await ortho recommendations. #R Hip/tibial pain #Lumbar stenosis with radiculopathy * s/p L4, L5, S1 laminectomies, facetectomies, and foraminotomies; L3-S1 posterolateral arthrodesis, repair of incidental durotomy 07/16/19 * s/p pigtail drainage of posterior lumbar spine seroma * Still having right buttock/thigh pain * cont to drain * spoken with dr Borjas today who recommend to remove the drainage if it s less than 20 cc , he think the pain is due to fractioon of soft tissue with the hard gutiérrez * cont PT * gabapentin, baclofen * cont. xarelto * pain control with oxycodone PRN, restart muscle relaxants, Gabapentin increased to 300 TID for neuropathy * bowel regimen * FU Dr. Borjas recommendations #h/o DVT/PE * Cont. Xarelto 20mg daily * /TEDs * has IVC filter #chronic systolic and idastolic Heart failure * not in acute exacerbation, in fact relatively volume depleted * hold Torsemide, PO hydration # Non ischemic cardiomyopathy #HTN * cont. BP meds as tolerated lisinopril 5 , carvedilol 12.5 bid #Insomnia * restart Zolpidem #Hypoalbuminemia * 2/2 poor intake, malnourishment * prosource * Dietary consult #T2DM * ISS * BGM * diabetic diet #Afib on AC * rate controlled * cont xarelto 20 mg po daily # RA cont Arva # Anemia likley due to chronic disease , monitor H/H daily # Obesity with BMI 36.7 , educated about life style changes and diet modification # DVT prophylaxis on xarelto no need for GI proph # Hyperkalemia 5.3 order EKG and d50 with regular insulin 10 units with calcium gluconate 1000 mg # Dispo: M/S possible dc tomorrow Visit type - Emergency Visit Emergency Visit: Yes ED Registration Date: 09/07/19 Care time: The patient presented to the Emergency Department on the above date and was hospitalized for further evaluation of their emergent condition. - New Patient This patient is new to me today: Yes Date on this admission: 09/18/19 - Critical Care Critical Care patient: No - Discharge Referral Referred to [facility] Med P.C.: No ATTENDING PHYSICIAN STATEMENT I saw and evaluated the patient. I reviewed the resident's note and discussed the case with the resident. I agree with the resident's findings and plan as documented. SUBJECTIVE: OBJECTIVE: ASSESSMENT AND PLAN:
[2019-09-18] MEDS ORDERED: PT OWN MED DRAWER 7, Y5N ONE ×2 (08:38→09:00)
[2019-09-18] MEDS: LEFLUNOMIDE 10 MG TABLET PO SCH (09:05)
[2019-09-18] MEDS: GABAPENTIN 300 MG CAPSULE PO SCH ×2 (09:05→21:34)
[2019-09-18] MEDS: BACLOFEN 10 MG TABLET (FP) PO SCH ×2 (09:05→21:34)
[2019-09-18] MEDS: LISINOPRIL 5 MG TABLET (FP) PO SCH (09:05)
[2019-09-18] MEDS: AMINO ACIDS/PROTEIN HYDROLYS 30 ML LIQUID.PKT PO SCH ×2 (09:05→09:10)
[2019-09-18] MEDS: CARVEDILOL 12.5 MG TABLET (FP) PO SCH ×2 (09:05→21:33)
[2019-09-18] MEDS: oxyCODONE HCL 10 MG SUSTAINED ACTING TABLET PO SCH ×2 (09:06→21:33)
[2019-09-18] MEDS ORDERED: INSULIN (NOVOLOG) ASPART 100 UNITS/ML 10ML VIAL ONE (11:58)
--- NOTE | 2019-09-18 13:04 | PN ---
Teaching Attending Note Name of Resident: Sb Garcia ATTENDING PHYSICIAN STATEMENT I saw and evaluated the patient. I reviewed the resident's note and discussed the case with the resident. I agree with the resident's findings and plan as documented. SUBJECTIVE: Patient complaining of right hip pain. OBJECTIVE: Vital Signs Period Temp Pulse Resp BP Sys/Marcelo Pulse Ox Last 24 Hr 97.6 F-98.9 F 67-88 20-20 105-137/54-69 98-98 GENERAL: The patient is awake, alert, and fully oriented, in no acute distress. LUNGS: Breath sounds equal, clear to auscultation bilaterally, no wheezes, no crackles, no accessory muscle use. HEART: Regular rate and rhythm, S1, S2 without murmur, rub or gallop. ABDOMEN: Obese, soft, nontender, nondistended, normoactive bowel sounds, no guarding, no rebound, no hepatosplenomegaly, no masses. EXTREMITIES: 2+ pulses, warm, well-perfused, no edema. Laboratory Results - last 24 hr 09/17/19 09/17/19 09/18/19 17:25 21:47 06:15 POC Glucometer 147 159 146 09/18/19 11:56 POC Glucometer 253 Current Medications Generic Name Dose Route Start Last Admin Trade Name Freq PRN Reason Stop Dose Admin Amino Acids 30 ml 09/12/19 10:00 09/18/19 09:10 Prosource No Carb Liquid Pkt PO Not Given DAILY LISA Baclofen 10 mg 09/12/19 14:57 09/18/19 09:05 Lioresal - PO 10 mg BID LISA Administration Carvedilol 12.5 mg 09/10/19 22:00 09/18/19 09:05 Coreg - PO 12.5 mg BID LISA Administration Gabapentin 300 mg 09/12/19 14:57 09/18/19 09:05 Neurontin - PO 300 mg BID LISA Administration Insulin Aspart 1 vial 09/10/19 22:00 09/18/19 11:59 Novolog Vial Sliding Scale - SQ 3 unit ACHS LISA Administration Protocol Leflunomide 10 mg 09/11/19 10:00 09/18/19 09:05 Arava - PO 10 mg DAILY LISA Administration Lisinopril 5 mg 09/11/19 10:00 09/18/19 09:05 Prinivil PO 5 mg DAILY LISA Administration Oxycodone HCl 10 mg 09/11/19 12:45 09/18/19 09:06 Oxycontin - PO Not Given BID [facility] Oxycodone HCl 10 mg 09/14/19 10:27 09/18/19 09:06 Roxicodone - PO 10 mg Q4H PRN Administration PAIN LEVEL 6-10 Rivaroxaban 20 mg 09/14/19 18:00 09/17/19 17:33 Xarelto PO 20 mg DAILY@1800 LISA Administration ASSESSMENT AND PLAN: This is a 74 year old woman with a history of HTN, chronic systolic and diastolic heart failure, non-ischemic cardiomyopathy, atrial fib, type 2 DM, RA , DVT/PE, lumbar spinal stenosis, lumbar spine surgeries who presented to the ED with right hip pain. 1. Lumbar stenosis with radiculopathy - s/p L4, L5, S1 laminectomies, facetectomies, and foraminotomies; L3-S1 posterolateral arthrodesis, repair of incidental durotomy 07/16/19 - s/p pigtail drainage of posterior lumbar spine seroma - Still having right buttock/thigh pain - Continue Neurontin, Baclofen, OxyContin, oxycodone IR as needed - Continue PT - Ortho follow-up - May need short-term rehab 2. HTN - Continue lisinopril, Coreg 3. History of atrial fibrillation - Remains in sinus rhythm - Continue Coreg, Xarelto 4. Chronic systolic and diastolic heart failure - Stable - Continue lisinopril, Coreg 5. Non-ischemic cardiomyopathy 6. Type 2 DM - Continue Novolog sliding scale 7. History of DVT/PE - Has IVC filter - Heme previously recommended lifetime anticoagulation - Continue Xarelto 8. Rheumatoid arthritis - Continue Arava 9. Anemia - Likely secondary to chronic illness - Continue to monitor hgb 10. Obesity with BMI 36.7
[2019-09-18] MEDS: RIVAROXABAN 20 MG TABLET PO SCH (18:30)
[2019-09-18] MEDS ORDERED: DEXTROSE 50%-WATER - 25 GM/50 ML VIAL IVPUSH ONE (20:07)
[2019-09-18] MEDS ORDERED: INSULIN REGULAR HUMAN 100 UNITS/ML *VIAL IVPUSH ONE (20:07)
[2019-09-18] MEDS ORDERED: CALCIUM GLUCONATE 10% - 1,000 MG/10 ML VIAL IVPB ONE (20:10)
[2019-09-18] MEDS ORDERED: DEXTROSE 50%-WATER - 25 GM/50 ML VIAL ONE (22:12)
[2019-09-19] MEDS: oxyCODONE HCL 5 MG TABLET PO PRN ×5 (01:30→19:52)
[2019-09-19 03:03] LABS: BLOOD UREA NITROGEN 24.7 mg/dL (7-18); CALCIUM 8.6 mg/dL (8.5-10.1); POTASSIUM 5.5 mmol/L (3.5-5.1)
[2019-09-19] MEDS ORDERED: INSULIN REGULAR HUMAN 100 UNITS/ML *VIAL IVPUSH ONE (05:09)
[2019-09-19] MEDS ORDERED: DEXTROSE 50%-WATER - 25 GM/50 ML VIAL IVPUSH ONE (05:10)
[2019-09-19] MEDS ORDERED: DEXTROSE 50%-WATER - 25 GM/50 ML VIAL ONE (05:40)
[2019-09-19] MEDS: INSULIN SLIDING SCALE (NOVOLOG) 1 VIAL SQ SCH ×4 (06:40→21:26)
[2019-09-19] MEDS: GABAPENTIN 300 MG CAPSULE PO SCH ×3 (06:40→21:24)
--- NOTE | 2019-09-19 09:31 | PN ---
Physical Exam: SUBJECTIVE: Patient seen and examined, denies any fevr or chills, oain is well controlled asking to see Dr Blount and cardiology OBJECTIVE: Vital Signs Period Temp Pulse Resp BP Sys/Marcelo Pulse Ox Last 24 Hr 98.3 F-98.5 F 67-77 20-20 108-125/50-75 98 Head: NC/AT Neck: supple , MMM Lungs: CTA B/l Abdomen: obese, soft NT, NT , positive BS All 4 q , abdominal surgical scar Heart: RRR B/L knee surgical scar right hip draining seracenous fluids no focal deficit , sensation intact , move all ext walk with PT with walker Laboratory Results - last 24 hr 09/18/19 09/18/19 09/18/19 11:56 17:14 21:31 Sodium Potassium Chloride Carbon Dioxide Anion Gap BUN Creatinine Est GFR (CKD-EPI)AfAm Est GFR (CKD-EPI)NonAf POC Glucometer 253 141 194 Random Glucose Calcium 09/19/19 09/19/19 02:35 06:34 Sodium 138 Potassium 5.5 H Chloride 110 H Carbon Dioxide 20 L Anion Gap 9 BUN 24.7 H Creatinine 1.0 Est GFR (CKD-EPI)AfAm 64.73 Est GFR (CKD-EPI)NonAf 55.85 POC Glucometer 173 Random Glucose 142 H Calcium 8.6 Active Medications Generic Name Dose Route Start Last Admin Trade Name Freq PRN Reason Stop Dose Admin Amino Acids 30 ml 09/12/19 10:00 09/18/19 09:10 Prosource No Carb Liquid Pkt PO Not Given DAILY LISA Baclofen 10 mg 09/12/19 14:57 09/18/19 21:34 Lioresal - PO 10 mg BID LISA Administration Carvedilol 12.5 mg 09/10/19 22:00 09/18/19 21:33 Coreg - PO 12.5 mg BID LISA Administration Gabapentin 300 mg 09/18/19 22:00 09/19/19 06:40 Neurontin - PO 300 mg TID LISA Administration Insulin Aspart 1 vial 09/10/19 22:00 09/19/19 06:40 Novolog Vial Sliding Scale - SQ 1 unit ACHS LISA Administration Protocol Leflunomide 10 mg 09/11/19 10:00 09/18/19 09:05 Arava - PO 10 mg DAILY LISA Administration Lisinopril 5 mg 09/11/19 10:00 09/18/19 09:05 Prinivil PO 5 mg DAILY LISA Administration Oxycodone HCl 10 mg 09/11/19 12:45 09/18/19 21:33 Oxycontin - PO 10 mg BID LISA Administration Oxycodone HCl 10 mg 09/14/19 10:27 09/19/19 06:40 Roxicodone - PO 10 mg Q4H PRN Administration PAIN LEVEL 6-10 Rivaroxaban 20 mg 09/14/19 18:00 09/18/19 18:30 Xarelto PO 20 mg DAILY@1800 LISA Administration Sodium Zirconium Cyclosilicate 5 gm 09/19/19 10:00 Lokelma PO DAILY [facility] CBC, BMP 09/16/19 07:12 09/19/19 02:35 ASSESSMENT/PLAN: 74 F h/o multiple back surgeries, last 07/2019, admitted for refractory R hip pain shooting down R leg, underwent diagnostic/therapeutic joint tap. Will await ortho recommendations. #R Hip/tibial pain #Lumbar stenosis with radiculopathy * s/p L4, L5, S1 laminectomies, facetectomies, and foraminotomies; L3-S1 posterolateral arthrodesis, repair of incidental durotomy 07/16/19 * s/p pigtail drainage of posterior lumbar spine seroma * Still having right buttock/thigh pain * cont to drain * spoken with dr Borjas today who recommend to remove the drainage if it s less than 20 cc , he think the pain is due to fractioon of soft tissue with the hard gutiérrez * cont PT * gabapentin, baclofen, * cont. xarelto * pain control with oxycodone PRN, restart muscle relaxants, Gabapentin increased to 300 TID for neuropathy * bowel regimen colace 100 BID * FU Dr. Borjas recommendations #h/o DVT/PE * Cont. Xarelto 20mg daily * /TEDs * has IVC filter #chronic systolic and idastolic Heart failure * not in acute exacerbation, in fact relatively volume depleted * cont Torsemide, * PO hydration # Non ischemic cardiomyopathy #HTN * cont. BP meds as tolerated lisinopril 5 , carvedilol 12.5 bid #Insomnia * restart Zolpidem #Hypoalbuminemia * 2/2 poor intake, malnourishment * prosource * Dietary consult #T2DM * ISS * BGM * diabetic diet #Afib on AC * rate controlled * cont xarelto 20 mg po daily # RA cont Arva # Anemia likley due to chronic disease , monitor H/H daily # Obesity with BMI 36.7 , educated about life style changes and diet modification # DVT prophylaxis on xarelto no need for GI proph # Hyperkalemia 5.3 order EKG and d50 with regular insulin 10 units with calcium gluconate 1000 mg , cont to monitor # Dispo: M/S possible dc tomorrow to rehab Visit type - Emergency Visit Emergency Visit: Yes ED Registration Date: 09/07/19 Care time: The patient presented to the Emergency Department on the above date and was hospitalized for further evaluation of their emergent condition. - New Patient This patient is new to me today: No - Critical Care Critical Care patient: No ATTENDING PHYSICIAN STATEMENT I saw and evaluated the patient. I reviewed the resident's note and discussed the case with the resident. I agree with the resident's findings and plan as documented. SUBJECTIVE: OBJECTIVE: ASSESSMENT AND PLAN:
[2019-09-19] MEDS: CARVEDILOL 12.5 MG TABLET (FP) PO SCH ×2 (10:15→21:24)
[2019-09-19] MEDS: LISINOPRIL 5 MG TABLET (FP) PO SCH (10:15)
[2019-09-19] MEDS: oxyCODONE HCL 10 MG SUSTAINED ACTING TABLET PO SCH ×2 (10:15→21:25)
[2019-09-19] MEDS: BACLOFEN 10 MG TABLET (FP) PO SCH ×2 (10:15→21:24)
[2019-09-19] MEDS: LEFLUNOMIDE 10 MG TABLET PO SCH (10:18)
[2019-09-19] MEDS: AMINO ACIDS/PROTEIN HYDROLYS 30 ML LIQUID.PKT PO SCH (10:18)
[2019-09-19 10:39] LABS: EOS % 4.6 % (0-4.5); HEMATOCRIT 31.4 % (32.4-45.2); LYMPH % 26.2 % (8-40); MCH 28.2 pg (25.7-33.7); MCHC 31.8 g/dl (32.0-36.0); MEAN CELL VOLUME 88.6 fl (80-96); MEAN PLT VOLUME 7.5 fl (7.5-11.1); MONO % 12.3 % (3.8-10.2); NEUT % 55.9 % (42.8-82.8); PLATELET COUNT 353 K/MM3 (134-434); RBC 3.54 M/mm3 (3.60-5.2); RDW 15.4 % (11.6-15.6); WHITE BLOOD COUNT 6.2 K/mm3 (4.0-10.0)
--- NOTE | 2019-09-19 10:40 | EKG ---
Test Reason : Blood Pressure : / mmHG Vent. Rate : 080 BPM Atrial Rate : 080 BPM P-R Int : 174 ms QRS Dur : 080 ms QT Int : 378 ms P-R-T Axes : 066 045 045 degrees QTc Int : 435 ms SINUS RHYTHM WITH FREQUENT PREMATURE VENTRICULAR COMPLEXES OTHERWISE NORMAL ECG WHEN COMPARED WITH ECG OF 18-SEP-2019 21:07, PREMATURE VENTRICULAR COMPLEXES ARE NOW PRESENT Confirmed by Daniel Sarmiento MD ([id number]) on 09/19/2019 10:40:41 AM Referred By: Marino MARTINEZ Confirmed By:Daniel Sarmiento MD
--- NOTE | 2019-09-19 10:42 | EKG ---
Test Reason : Blood Pressure : / mmHG Vent. Rate : 070 BPM Atrial Rate : 070 BPM P-R Int : 180 ms QRS Dur : 084 ms QT Int : 414 ms P-R-T Axes : 050 050 035 degrees QTc Int : 447 ms NORMAL SINUS RHYTHM NORMAL ECG WHEN COMPARED WITH ECG OF 07-SEP-2019 11:37, PREMATURE VENTRICULAR COMPLEXES ARE NO LONGER PRESENT Confirmed by Daniel Sarmiento MD ([id number]) on 09/19/2019 10:42:10 AM Referred By: Confirmed By:Daniel Sarmiento MD
[2019-09-19 11:04] LABS: BLOOD UREA NITROGEN 22.5 mg/dL (7-18); CALCIUM 8.8 mg/dL (8.5-10.1); POTASSIUM 5.3 mmol/L (3.5-5.1)
[2019-09-19] MEDS: SODIUM ZIRCONIUM CYCLOSILICATE (LOKELMA) 5 GM PACKET PO SCH (12:16)
--- NOTE | 2019-09-19 16:44 | PN ---
Teaching Attending Note Name of Resident: Sb Garcia ATTENDING PHYSICIAN STATEMENT I saw and evaluated the patient. I reviewed the resident's note and discussed the case with the resident. I agree with the resident's findings and plan as documented. SUBJECTIVE: Right hip pain is less severe today, but increased with PT. OBJECTIVE: Vital Signs Period Temp Pulse Resp BP Sys/Marcelo Pulse Ox Last 24 Hr 98.3 F-99.9 F 67-85 18-20 108-131/50-75 97-98 GENERAL: The patient is awake, alert, and fully oriented, in no acute distress. LUNGS: Breath sounds equal, clear to auscultation bilaterally, no wheezes, no crackles, no accessory muscle use. HEART: Regular rate and rhythm, S1, S2 without murmur, rub or gallop. ABDOMEN: Obese, soft, nontender, nondistended, normoactive bowel sounds, no guarding, no rebound, no hepatosplenomegaly, no masses. EXTREMITIES: 2+ pulses, warm, well-perfused, no edema. Laboratory Results - last 24 hr 09/18/19 09/18/19 09/19/19 17:14 21:31 02:35 WBC RBC Hgb Hct MCV MCH MCHC RDW Plt Count MPV Absolute Neuts (auto) Neutrophils % Lymphocytes % Monocytes % Eosinophils % Basophils % Nucleated RBC % Sodium 138 Potassium 5.5 H Chloride 110 H Carbon Dioxide 20 L Anion Gap 9 BUN 24.7 H Creatinine 1.0 Est GFR (CKD-EPI)AfAm 64.73 Est GFR (CKD-EPI)NonAf 55.85 POC Glucometer 141 194 Random Glucose 142 H Calcium 8.6 09/19/19 09/19/19 09/19/19 06:34 09:48 09:48 WBC 6.2 RBC 3.54 L Hgb 10.0 L Hct 31.4 L D MCV 88.6 MCH 28.2 MCHC 31.8 L RDW 15.4 Plt Count 353 MPV 7.5 Absolute Neuts (auto) 3.4 Neutrophils % 55.9 Lymphocytes % 26.2 Monocytes % 12.3 H Eosinophils % 4.6 H Basophils % 1.0 Nucleated RBC % 0 Sodium 137 Potassium 5.3 H Chloride 107 Carbon Dioxide 24 Anion Gap 6 L BUN 22.5 H Creatinine 1.0 Est GFR (CKD-EPI)AfAm 64.73 Est GFR (CKD-EPI)NonAf 55.85 POC Glucometer 173 Random Glucose 233 H Calcium 8.8 09/19/19 12:13 WBC RBC Hgb Hct MCV MCH MCHC RDW Plt Count MPV Absolute Neuts (auto) Neutrophils % Lymphocytes % Monocytes % Eosinophils % Basophils % Nucleated RBC % Sodium Potassium Chloride Carbon Dioxide Anion Gap BUN Creatinine Est GFR (CKD-EPI)AfAm Est GFR (CKD-EPI)NonAf POC Glucometer 224 Random Glucose Calcium Current Medications Generic Name Dose Route Start Last Admin Trade Name Freq PRN Reason Stop Dose Admin Amino Acids 30 ml 09/12/19 10:00 09/19/19 10:18 Prosource No Carb Liquid Pkt PO Not Given DAILY LISA Baclofen 10 mg 09/12/19 14:57 09/19/19 10:15 Lioresal - PO 10 mg BID LISA Administration Carvedilol 12.5 mg 09/10/19 22:00 09/19/19 10:15 Coreg - PO 12.5 mg BID LISA Administration Docusate Sodium 100 mg 09/19/19 22:00 Colace - PO BID LISA Gabapentin 300 mg 09/18/19 22:00 09/19/19 14:36 Neurontin - PO 300 mg TID LISA Administration Insulin Aspart 1 vial 09/10/19 22:00 09/19/19 12:15 Novolog Vial Sliding Scale - SQ 2 unit ACHS LISA Administration Protocol Leflunomide 10 mg 09/11/19 10:00 09/19/19 10:18 Arava - PO 10 mg DAILY LISA Administration Lisinopril 5 mg 09/11/19 10:00 09/19/19 10:15 Prinivil PO 5 mg DAILY LISA Administration Oxycodone HCl 10 mg 09/11/19 12:45 09/19/19 10:15 Oxycontin - PO 10 mg BID LISA Administration Oxycodone HCl 10 mg 09/14/19 10:27 09/19/19 14:36 Roxicodone - PO 10 mg Q4H PRN Administration PAIN LEVEL 6-10 Rivaroxaban 20 mg 09/14/19 18:00 09/18/19 18:30 Xarelto PO 20 mg DAILY@1800 LISA Administration Sodium Zirconium Cyclosilicate 5 gm 09/19/19 10:00 09/19/19 12:16 Lokelma PO 5 gm DAILY LISA Administration Torsemide 50 mg 09/20/19 10:00 Demadex - PO DAILY LISA ASSESSMENT AND PLAN: This is a 74 year old woman with a history of HTN, chronic systolic and diastolic heart failure, non-ischemic cardiomyopathy, atrial fib, type 2 DM, RA , DVT/PE, lumbar spinal stenosis, lumbar spine surgeries who presented to the ED with right hip pain. 1. Lumbar stenosis with radiculopathy - s/p L4, L5, S1 laminectomies, facetectomies, and foraminotomies; L3-S1 posterolateral arthrodesis, repair of incidental durotomy 07/16/19 - s/p pigtail drainage of posterior lumbar spine seroma - Still having right buttock/thigh pain - Continue Neurontin, Baclofen, OxyContin, oxycodone IR as needed - Continue PT - walked 60 feet today with RW, limited by pain - Ortho follow-up - May need short-term rehab 2. HTN - Continue lisinopril, Coreg 3. History of atrial fibrillation - Remains in sinus rhythm - Continue Coreg, Xarelto 4. Chronic systolic and diastolic heart failure - Stable - Continue lisinopril, Coreg - Restart torsemide 5. Non-ischemic cardiomyopathy 6. Type 2 DM - Continue Novolog sliding scale 7. History of DVT/PE - Has IVC filter - Heme previously recommended lifetime anticoagulation - Continue Xarelto 8. Rheumatoid arthritis - Continue Arava 9. Anemia - Likely secondary to chronic illness - Hgb stable - continue to monitor 10. Obesity with BMI 36.7
[2019-09-19] MEDS: RIVAROXABAN 20 MG TABLET PO SCH (17:50)
[2019-09-19] MEDS: DOCUSATE SODIUM 100 MG CAPSULE (FP) PO SCH (21:24)
[2019-09-20] MEDS: oxyCODONE HCL 5 MG TABLET PO PRN ×3 (06:11→22:16)
[2019-09-20] MEDS: GABAPENTIN 300 MG CAPSULE PO SCH ×3 (06:13→21:19)
[2019-09-20] MEDS: INSULIN SLIDING SCALE (NOVOLOG) 1 VIAL SQ SCH ×4 (06:14→22:16)
--- NOTE | 2019-09-20 06:17 | PN ---
Physical Exam: SUBJECTIVE: Patient seen and examined, denies any fever or chills, pain is well controlled asking to see Dr Indio ortiz contact IR to evaluate to remove the drainage if below 20 cc in 24 hr cardiology consulted by Dr Nesbitt , recoomend resume toresemid and hold lisinopril due to hyper k OBJECTIVE: Vital Signs Period Temp Pulse Resp BP Sys/Marcelo Pulse Ox Last 24 Hr 97.7 F-99.9 F 67-85 18-18 103-131/53-62 97-98 Head: NC/AT Neck: supple , MMM Lungs: CTA B/l Abdomen: obese, soft NT, NT , positive BS All 4 q , abdominal surgical scar Heart: RRR B/L knee surgical scar right hip draining seracenous fluids no focal deficit , sensation intact , move all ext walk with PT with walker Laboratory Results - last 24 hr 09/19/19 09/19/19 09/19/19 06:34 09:48 09:48 WBC 6.2 RBC 3.54 L Hgb 10.0 L Hct 31.4 L D MCV 88.6 MCH 28.2 MCHC 31.8 L RDW 15.4 Plt Count 353 MPV 7.5 Absolute Neuts (auto) 3.4 Neutrophils % 55.9 Lymphocytes % 26.2 Monocytes % 12.3 H Eosinophils % 4.6 H Basophils % 1.0 Nucleated RBC % 0 Sodium 137 Potassium 5.3 H Chloride 107 Carbon Dioxide 24 Anion Gap 6 L BUN 22.5 H Creatinine 1.0 Est GFR (CKD-EPI)AfAm 64.73 Est GFR (CKD-EPI)NonAf 55.85 POC Glucometer 173 Random Glucose 233 H Calcium 8.8 09/19/19 09/19/19 09/19/19 12:13 17:12 21:22 WBC RBC Hgb Hct MCV MCH MCHC RDW Plt Count MPV Absolute Neuts (auto) Neutrophils % Lymphocytes % Monocytes % Eosinophils % Basophils % Nucleated RBC % Sodium Potassium Chloride Carbon Dioxide Anion Gap BUN Creatinine Est GFR (CKD-EPI)AfAm Est GFR (CKD-EPI)NonAf POC Glucometer 224 153 132 Random Glucose Calcium 09/20/19 06:10 WBC RBC Hgb Hct MCV MCH MCHC RDW Plt Count MPV Absolute Neuts (auto) Neutrophils % Lymphocytes % Monocytes % Eosinophils % Basophils % Nucleated RBC % Sodium Potassium Chloride Carbon Dioxide Anion Gap BUN Creatinine Est GFR (CKD-EPI)AfAm Est GFR (CKD-EPI)NonAf POC Glucometer 155 Random Glucose Calcium Active Medications Generic Name Dose Route Start Last Admin Trade Name Abelq PRN Reason Stop Dose Admin Amino Acids 30 ml 09/12/19 10:00 09/19/19 10:18 Prosource No Carb Liquid Pkt PO Not Given DAILY LISA Baclofen 10 mg 09/12/19 14:57 09/19/19 21:24 Lioresal - PO 10 mg BID LISA Administration Carvedilol 12.5 mg 09/10/19 22:00 09/19/19 21:24 Coreg - PO 12.5 mg BID LISA Administration Docusate Sodium 100 mg 09/19/19 22:00 09/19/19 21:24 Colace - PO 100 mg BID LISA Administration Gabapentin 300 mg 09/18/19 22:00 09/20/19 06:13 Neurontin - PO 300 mg TID LISA Administration Insulin Aspart 1 vial 09/10/19 22:00 09/20/19 06:14 Novolog Vial Sliding Scale - SQ 1 unit ACHS LISA Administration Protocol Leflunomide 10 mg 09/11/19 10:00 09/19/19 10:18 Arava - PO 10 mg DAILY LISA Administration Lisinopril 5 mg 09/11/19 10:00 09/19/19 10:15 Prinivil PO 5 mg DAILY LISA Administration Oxycodone HCl 10 mg 09/11/19 12:45 09/19/19 21:25 Oxycontin - PO 10 mg BID LISA Administration Oxycodone HCl 10 mg 09/14/19 10:27 09/20/19 06:11 Roxicodone - PO 10 mg Q4H PRN Administration PAIN LEVEL 6-10 Rivaroxaban 20 mg 09/14/19 18:00 09/19/19 17:50 Xarelto PO 20 mg DAILY@1800 LISA Administration Sodium Zirconium Cyclosilicate 5 gm 09/19/19 10:00 09/19/19 12:16 Lokelma PO 5 gm DAILY LISA Administration Torsemide 50 mg 09/20/19 10:00 Demadex - PO DAILY [facility] CBC, BMP 09/20/19 07:55 09/20/19 07:55 ASSESSMENT/PLAN: 74 F h/o multiple back surgeries, last 07/2019, admitted for refractory R hip pain shooting down R leg, underwent diagnostic/therapeutic joint tap. Will await ortho recommendations. #R Hip/tibial pain #Lumbar stenosis with radiculopathy * s/p L4, L5, S1 laminectomies, facetectomies, and foraminotomies; L3-S1 posterolateral arthrodesis, repair of incidental durotomy 07/16/19 * s/p pigtail drainage of posterior lumbar spine seroma * Still having right buttock/thigh pain * cont to drain * spoken with dr Borjas today who recommend to remove the drainage if it s less than 20 cc , he think the pain is due to fractioon of soft tissue with the hard gutiérrez * cont PT * gabapentin, baclofen, * cont. xarelto * pain control with oxycodone PRN, restart muscle relaxants, Gabapentin increased to 300 TID for neuropathy * bowel regimen colace 100 BID * FU Dr. Borjas recommendations #h/o DVT/PE * Cont. Xarelto 20mg daily * /TEDs * has IVC filter #chronic systolic and idastolic Heart failure * not in acute exacerbation, in fact relatively volume depleted * cont Torsemide, hold lisinopril due to Hyper K * PO hydration # Non ischemic cardiomyopathy #HTN * cont. BP meds as tolerated , carvedilol 12.5 bid * hold lisinopril 5 due to Hyper K #Insomnia * restart Zolpidem #Hypoalbuminemia * 2/2 poor intake, malnourishment * prosource * Dietary consult #T2DM * ISS * BGM * diabetic diet #Afib on AC * rate controlled * cont xarelto 20 mg po daily # RA cont Arva # Anemia likely due to chronic disease , monitor H/H daily # Obesity with BMI 36.7 , educated about life style changes and diet modification # DVT prophylaxis on xarelto no need for GI proph # Hyperkalemia 5.2 order EKG and d50 with regular insulin 10 units with calcium gluconate 1000 mg , cont to monitor , holf lisinopril # Dispo: M/S possible dc tomorrow to rehab Visit type - Emergency Visit Emergency Visit: Yes ED Registration Date: 09/07/19 Care time: The patient presented to the Emergency Department on the above date and was hospitalized for further evaluation of their emergent condition. - New Patient This patient is new to me today: No - Critical Care Critical Care patient: No - Discharge Referral Referred to [facility] Med [facility] No ATTENDING PHYSICIAN STATEMENT I saw and evaluated the patient. I reviewed the resident's note and discussed the case with the resident. I agree with the resident's findings and plan as documented. SUBJECTIVE: OBJECTIVE: ASSESSMENT AND PLAN:
[2019-09-20 08:46] LABS: BASO % 1.1 % (0-2.0); EOS % 5.8 % (0-4.5); HEMATOCRIT 28.2 % (32.4-45.2); HEMOGLOBIN 9.1 GM/dL (10.7-15.3); LYMPH % 25.4 % (8-40); MCH 28.7 pg (25.7-33.7); MCHC 32.4 g/dl (32.0-36.0); MEAN CELL VOLUME 88.6 fl (80-96); MEAN PLT VOLUME 7.3 fl (7.5-11.1); MONO % 13.9 % (3.8-10.2); NEUT % 53.8 % (42.8-82.8); PLATELET COUNT 291 K/MM3 (134-434); RBC 3.19 M/mm3 (3.60-5.2); RDW 15.8 % (11.6-15.6); WHITE BLOOD COUNT 5.5 K/mm3 (4.0-10.0)
[2019-09-20 09:02] LABS: ALBUMIN 2.3 g/dl (3.4-5.0); BILIRUBIN,TOTAL 0.4 mg/dL (0.2-1); BLOOD UREA NITROGEN 24.5 mg/dL (7-18); CALCIUM 8.3 mg/dL (8.5-10.1); CREATININE 1.1 mg/dL (0.55-1.3); POTASSIUM 5.2 mmol/L (3.5-5.1); TOT PROT 6.3 g/dl (6.4-8.2)
[2019-09-20] MEDS ORDERED: TORSEMIDE 100 MG TABLET PO SCH (10:00)
[2019-09-20] MEDS ORDERED: PT OWN MED DRAWER 7, Y5N ONE ×3 (10:45→11:59)
[2019-09-20] MEDS: CARVEDILOL 12.5 MG TABLET (FP) PO SCH ×2 (10:51→21:19)
[2019-09-20] MEDS: oxyCODONE HCL 10 MG SUSTAINED ACTING TABLET PO SCH ×2 (10:51→21:19)
[2019-09-20] MEDS: BACLOFEN 10 MG TABLET (FP) PO SCH ×2 (10:51→21:19)
[2019-09-20] MEDS: DOCUSATE SODIUM 100 MG CAPSULE (FP) PO SCH ×2 (10:51→21:19)
[2019-09-20] MEDS: LEFLUNOMIDE 10 MG TABLET PO SCH (10:58)
[2019-09-20] MEDS: AMINO ACIDS/PROTEIN HYDROLYS 30 ML LIQUID.PKT PO SCH (11:01)
[2019-09-20] MEDS: LISINOPRIL 5 MG TABLET (FP) PO SCH (11:36)
[2019-09-20] MEDS ORDERED: INSULIN (NOVOLOG) ASPART 100 UNITS/ML 10ML VIAL ONE ×2 (12:00→22:15)
[2019-09-20] MEDS: TORSEMIDE 20 MG TABLET (FP) PO SCH ×2 (12:30→15:49)
--- NOTE | 2019-09-20 13:12 | CON.CARD ---
Consult Consult Specialty:: Cardiology Referred by:: Dr. 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 Has been in hospital for multiple days with lower back pain/ ortho issues. We are called to see her for increased LE edema. Remains on home Torsemide dose; Lisinopril has been held due to borderline BP and hyperk+ ROS: has become mildly SOB w/ exertion and with worsened b/l LE edema. Has not been receiving her usual Torsemide since admission, resumed today. Denies palps/ CP/PND/orthopnea. 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 Cardio/Vascular: Yes: CHF, Deep Vein Thrombosis, HTN Pulmonary: Yes: Pulmonary Embolus Rheumatology: Yes: Rheumatoid Arthritis Endocrine: Yes: Diabetes Mellitus - Past Surgical History Past Surgical History: Yes: Bariatric Surgery (gastric band), Cholecystectomy, Hysterectomy, Joint Replacement (5 right hip replacements, 1 left hip replacement, bilateral TKR, left LTK with staph infection ), Laminectomy (back surgeries-reports 5, most rcent 06/19) - Alcohol/Substance Use Hx Alcohol Use: No - Smoking History Smoking history: Unknown if ever smoked Have you smoked in the past 12 months: No Aproximately how many cigarettes per day: 0 If you are a former smoker, when did you quit?: 40 YRS - Social History Usual Living Arrangement: With Child ADL: Independent 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 History of Recent Travel: No Home Medications - Allergies Allergies/Adverse Reactions: Allergies Allergy/AdvReac Type Severity Reaction Status Date / Time levofloxacin [From Levaquin] Allergy Severe ANAPHYLAXIS Verified 09/07/19 11:37 methotrexate Allergy Severe Swelling Verified 09/07/19 11:37 Penicillins Allergy Mild Rash Verified 09/07/19 11:37 doxycycline Allergy Unknown Verified 09/07/19 11:37 bumetanide [From Bumex] Allergy Rash Verified 09/07/19 11:37 morphine AdvReac Mild Itching Verified 09/07/19 11:37 piperacillin sodium AdvReac Mild Itching Verified 09/07/19 11:37 [From Zosyn] tazobactam sodium AdvReac Mild Itching Verified 09/07/19 11:37 [From Zosyn] - Home Medications Home Medications: Ambulatory Orders Gabapentin 300 mg PO BID 03/04/14 Oxycodone HCl/Acetaminophen [Percocet 10-325 mg Tablet] 1 tab PO Q6H PRN Insulin Lispro Protamin/Lispro [Humalog Mix 75-25 Kwikpen] 22 unit SQ ACDIN 04/23 Zolpidem Tartrate [Ambien] 10 mg PO HS PRN 06/01/17 Rivaroxaban [Xarelto -] 20 mg PO DAILY 06/22/18 Leflunomide [Arava] 20 mg PO DAILY 07/26/18 Torsemide 50 mg PO DAILY 07/26/18 Baclofen 10 mg PO Q12H 07/16/19 Carvedilol [Coreg -] 25 mg PO DAILY 07/16/19 Lisinopril 5 mg PO DAILY 07/16/19 Pregabalin [Lyrica -] 75 mg PO TID 07/16/19 Family Medical History Family History: Unremarkable (not pertinent to this presentation. ) Review of Systems - Review of Systems Eyes: reports: No Symptoms HENT: reports: No Symptoms Neck: reports: No Symptoms Cardiovascular: reports: Edema, Shortness of Breath Respiratory: reports: SOB on Exertion Gastrointestinal: denies: No Symptoms, Abdominal Pain, Bloating, Constipation, Diarrhea, Dysphagia, Indigestion, Melena, Nausea, Rectal Bleeding, Vomiting, Vomiting Blood, Other Genitourinary: denies: No Symptoms, Burning, Discharge, Dysuria, Flank Pain, Frequency, Hematuria, Incontinence, Lesions, Menses, Pain, Testicular Mass, Testicular Pain, Testicular Swelling, Urgency, Vaginal Bleeding, Other Breasts: denies: No Symptoms Reported, See HPI, Breast Implants, Discharge from Nipple, Lumps, Pain, Skin Changes, Other Musculoskeletal: denies: No Symptoms, Back Pain, Crepitus, Decreased ROM, Extremity Pain, Joint Pain, Joint Swelling, Muscle Pain, Muscle Cramps, Muscle Weakness, Other Integumentary: denies: No Symptoms, Blister, Bruising, Change in Color, Eczema, Erythema, Incision, Lesions, Lump, Pallor, Pruritis, Rash, Wound, Other Neurological: denies: No Symptoms, Change in LOC, Change in Speech, Confusion, Dizziness, Headache, Incoordination, Numbness, Parasthesia, Pre-Existing Deficit , Seizure, Syncope, Tremors, Unsteady Gait, Weakness, Other Endocrine: denies: No Symptoms, Excessive Sweating, Flushing, Increased Hunger, Increased Thirst, Intolerance to Cold, Intolerance to Heat, Unexplained Weight Gain, Unexplained Weight Loss, Other Hematology/Lymphatic: denies: No Symptoms, Easily Bruised, Excessive Bleeding, Swollen Glands, Other Psychiatric: denies: No Symptoms, Altered Sleep Pattern, Anxiety, Depression, Hallucinations, Panic, Paranoia, Suicidal, Other - Risk Factors Known Risk Factors: Yes: Diabetes Mellitus, Hypertension Vital Signs: Vital Signs Temperature 98.3 F 09/20/19 06:00 Pulse Rate 70 09/20/19 12:27 Respiratory Rate 09/20/19 12:27 Blood Pressure 124/50 L 09/20/19 12:27 O2 Sat by Pulse Oximetry (%) 98 09/19/19 21:00 Constitutional: Yes: No Distress, Calm Eyes: Yes: Conjunctiva Clear Respiratory: Yes: CTA Bilaterally Gastrointestinal: Yes: Soft, Abdomen, Obese Cardiovascular: Yes: Regular Rate and Rhythm JVD: No Carotid Bruit: No PMI: Non-Displaced Heart Sounds: Yes: S1, S2 (rrr) Edema: Yes Edema: LLE: 2+, RLE: 2+ Peripheral Pulses WNL: Yes Neurological: Yes: Alert, Oriented ...Motor Strength: WNL Psychiatric: Yes: WNL - Other Data Labs, Other Data: CBC, BMP 09/20/19 07:55 09/20/19 07:55 INR, PTT INR 1.28 (0.83-1.09) H 09/10/19 10:30 Laboratory Tests 09/16/19 09/19/19 09/19/19 07:12 02:35 09:48 WBC Hgb Plt Count Sodium Potassium 5.3 H 5.5 H 5.3 H BUN Creatinine AST ALT Albumin 09/20/19 09/20/19 07:55 07:55 WBC 5.5 Hgb 9.1 L Plt Count 291 Sodium 139 Potassium 5.2 H BUN 24.5 H Creatinine 1.1 AST 9 L ALT 11 L Albumin 2.3 L NSR, VPCs. No acute ST changes Echo: Image Reviewed (06/19/2018: [facility]-- EF 50-55%, Mild MR.) Prior Cardiac Procedures: Cardiac Catheterization (C/RHC 2014: NORMAL CORS, PA /RV: 50, PCWP 25, CI 1.7) Imaging - Results EKG: Image Reviewed Assessment/Plan IMP: Acute on chronic diastolic CHF: mild exacerbation History of combined systolic/diastolic CHF Paroxysmal atrial fibrillation Chronic hypertension History of DVTs/PE w/p IVC filter NICHOLE REC: 1. Mild volume retention in setting of not receiving usual Torsemide, now resumed. 2. Daily weights 3. Continue Coreg and Xarelto (for PAF and hx DVT) 4. Agree Holding Lisinopril (soft BPs but also because of elevated K+). To be resumed as outpatient, defer to primary cards (Dr. Pastrana). Thank you
[2019-09-20] MEDS: SODIUM ZIRCONIUM CYCLOSILICATE (LOKELMA) 5 GM PACKET PO SCH (13:33)
--- NOTE | 2019-09-20 17:06 | PN ---
Teaching Attending Note Name of Resident: Sb Garcia ATTENDING PHYSICIAN STATEMENT I saw and evaluated the patient. I reviewed the resident's note and discussed the case with the resident. I agree with the resident's findings and plan as documented. SUBJECTIVE: Patient seen and examined at bedside. Endorses pain is improved, spinal drain still draining light-justine fluid about 75mL overnight, no fevers. Objective: PE GA AAox3, speaking in full sentences, NAD, lying in bed HEENT NC/AT, EOMI, dry MM, neck supple Chest CTAB, no crackles, no wheezing CVS S1, S2+, RRR, no m/r/g Abd Soft, NT, ND, BS+ Ext 1+ LE edema b/l, no calf tenderness, passive ROM R hip without pain, passive ROM L hip without pain, spinal drain expressing light-justine colored fluid about 75mL, no blood or pus. Vital Signs - 24 hr 09/19/19 09/19/19 09/19/19 18:00 21:00 22:00 Temperature 97.7 F 98.2 F Pulse Rate 71 67 Respiratory 18 18 Rate Blood Pressure 103/62 104/59 L O2 Sat by Pulse 98 Oximetry (%) 09/20/19 09/20/19 09/20/19 06:00 10:49 12:27 Temperature 98.3 F Pulse Rate 69 61 70 Respiratory 18 20 20 Rate Blood Pressure 117/45 L 117/61 124/50 L O2 Sat by Pulse Oximetry (%) 09/20/19 09/20/19 14:00 15:45 Temperature 98.5 F Pulse Rate 78 82 Respiratory 20 20 Rate Blood Pressure 130/60 131/55 L O2 Sat by Pulse Oximetry (%) Microbiology 09/13/19 15:06 Body Fluid - Other Gram Stain - Final 09/13/19 15:06 Body Fluid - Other Body Fluid Culture - Final NO GROWTH OF AEROBIC ORGANISMS AFTER 48 HOURS INCUBATION 09/13/19 15:06 Body Fluid - Other Anaerobic Culture - Final NO ANAEROBES WERE ISOLATED 09/13/19 15:06 Abscess AFB Smear Concentration - Final 09/13/19 15:06 Abscess Mycobacterial Culture - Preliminary 09/13/19 15:06 Abscess LISA Preparation - Preliminary 09/13/19 15:06 Abscess Fungal Culture - Preliminary 09/10/19 15:30 Abscess Gram Stain - Final 09/10/19 15:30 Abscess Body Fluid Culture - Preliminary NO AEROBIC GROWTH, 24 HRS 09/10/19 15:30 Abscess Anaerobic Culture - Preliminary No growth. 09/10/19 15:30 Abscess AFB Smear Concentration - Final 09/10/19 15:30 Abscess Mycobacterial Culture - Preliminary 09/10/19 15:30 Abscess LISA Preparation - Preliminary 09/10/19 15:30 Abscess Fungal Culture - Preliminary 09/07/19 14:05 Urine - Urine Clean Catch Urine Culture - Final Normal Urogenital [place] Laboratory Results - last 24 hr 09/19/19 09/19/19 09/20/19 17:12 21:22 06:10 WBC RBC Hgb Hct MCV MCH MCHC RDW Plt Count MPV Absolute Neuts (auto) Neutrophils % Lymphocytes % Monocytes % Eosinophils % Basophils % Nucleated RBC % Sodium Potassium Chloride Carbon Dioxide Anion Gap BUN Creatinine Est GFR (CKD-EPI)AfAm Est GFR (CKD-EPI)NonAf POC Glucometer 153 132 155 Random Glucose Calcium Total Bilirubin AST ALT Alkaline Phosphatase Total Protein Albumin 09/20/19 09/20/19 09/20/19 07:55 07:55 11:49 WBC 5.5 RBC 3.19 L Hgb 9.1 L Hct 28.2 L MCV 88.6 MCH 28.7 MCHC 32.4 RDW 15.8 H Plt Count 291 MPV 7.3 L Absolute Neuts (auto) 3.0 Neutrophils % 53.8 Lymphocytes % 25.4 Monocytes % 13.9 H Eosinophils % 5.8 H Basophils % 1.1 Nucleated RBC % 0 Sodium 139 Potassium 5.2 H Chloride 110 H Carbon Dioxide 23 Anion Gap 6 L BUN 24.5 H Creatinine 1.1 Est GFR (CKD-EPI)AfAm 57.68 Est GFR (CKD-EPI)NonAf 49.77 POC Glucometer 190 Random Glucose 157 H Calcium 8.3 L Total Bilirubin 0.4 AST 9 L ALT 11 L Alkaline Phosphatase 127 H Total Protein 6.3 L Albumin 2.3 L 09/20/19 16:34 WBC RBC Hgb Hct MCV MCH MCHC RDW Plt Count MPV Absolute Neuts (auto) Neutrophils % Lymphocytes % Monocytes % Eosinophils % Basophils % Nucleated RBC % Sodium Potassium Chloride Carbon Dioxide Anion Gap BUN Creatinine Est GFR (CKD-EPI)AfAm Est GFR (CKD-EPI)NonAf POC Glucometer 187 Random Glucose Calcium Total Bilirubin AST ALT Alkaline Phosphatase Total Protein Albumin Current Medications Generic Name Dose Route Start Last Admin Trade Name Freq PRN Reason Stop Dose Admin Amino Acids 30 ml 09/12/19 10:00 09/20/19 11:01 Prosource No Carb Liquid Pkt PO Not Given DAILY LISA Baclofen 10 mg 09/12/19 14:57 09/20/19 10:51 Lioresal - PO 10 mg BID LISA Administration Carvedilol 12.5 mg 09/10/19 22:00 09/20/19 10:51 Coreg - PO 12.5 mg BID LISA Administration Docusate Sodium 100 mg 09/19/19 22:00 09/20/19 10:51 Colace - PO 100 mg BID LISA Administration Gabapentin 300 mg 09/18/19 22:00 09/20/19 15:52 Neurontin - PO 300 mg TID LISA Administration Insulin Aspart 1 vial 09/10/19 22:00 09/20/19 16:47 Novolog Vial Sliding Scale - SQ 1 unit ACHS LISA Administration Protocol Leflunomide 10 mg 09/11/19 10:00 09/20/19 10:58 Arava - PO 10 mg DAILY LISA Administration Oxycodone HCl 10 mg 09/11/19 12:45 09/20/19 10:51 Oxycontin - PO 10 mg BID LISA Administration Oxycodone HCl 10 mg 09/14/19 10:27 09/20/19 15:46 Roxicodone - PO 10 mg Q4H PRN Administration PAIN LEVEL 6-10 Rivaroxaban 20 mg 09/14/19 18:00 09/19/19 17:50 Xarelto PO 20 mg DAILY@1800 LISA Administration Sodium Zirconium Cyclosilicate 5 gm 09/19/19 10:00 09/20/19 13:33 Lokelma PO 5 gm DAILY LISA Administration Torsemide 50 mg 09/20/19 11:45 09/20/19 15:49 Demadex - PO 50 mg DAILY LISA Administration A/P: 74 F h/o multiple back surgeries, last 07/2019, admitted for refractory R hip pain shooting down R leg, underwent diagnostic/therapeutic joint tap. Now with spinal drain, improved pain with drain and pain meds. Likely dispo to SNF/[facility]. R tibial pain (+) Voiding; (+) Flatus; (+) BM pain improved with arthrocentesis, negative cultures for infection, cont. pain meds and Gabapentin, give bowel regimen Now with spinal drain to drain seroma, as per Ortho recs, when draining <20mL/ 24 hr then drain may be removed by their service for now drain remains. Dr. Borjas: Ortho service h/o DVT/PE Cont. Xarelto 20mg daily /TEDs has IVC filter HFpEF now with worsening LE edema restart Torsemide 50mg daily Cardiology consult: Dr Shay HTN cont. BP meds as tolerated Insomnia cont. Ambien Hypoalbuminemia 2/2 poor intake, malnourishment Dietary recs follow T2DM ISS, basal insulin as needed to titrate F/S 140-180. Afib on AC cont. AC, BB, rate controlled DVT ppx: Xarelto FEN: no IVF/daily chem/Na restricted diet Med-Surg
[2019-09-20] MEDS: RIVAROXABAN 20 MG TABLET PO SCH (18:16)
--- NOTE | 2019-09-20 19:02 | PN ---
Progress Note (short form) - Note Progress Note: Patient still c/o R proximolateral thigh pain and extending down iliotibial band. This pain precludes her ability to walk Hip instillation marcaine last week did not yield any relief. implant not loose. ? shoulder of the prosthesis is rubbing against the proximolateral tissues. Trochanteric bursitis picture. PLAN For review ? revision stem ie minimal shoulder design with debridement of bursa. May require additional soft tissue reconstruction. The other independent problem is a fluid collection in the epidural space or above the fascia. Pigtal catheter insitu draining 50mls today Patient feels much better in terms of neuralgic pain now that epidural space drained. Pigtail not ready for removal. 2 reasons in hospital admission 1) pigtail drainage associated maintenance not redy for discharge 2).decision on what is to be done re:hip / revision to different stem design with associated soft tissues realignment.
[2019-09-21] MEDS: GABAPENTIN 300 MG CAPSULE PO SCH ×3 (05:31→21:08)
[2019-09-21] MEDS: oxyCODONE HCL 5 MG TABLET PO PRN ×2 (05:31→22:38)
[2019-09-21] MEDS: INSULIN SLIDING SCALE (NOVOLOG) 1 VIAL SQ SCH ×4 (06:29→22:39)
--- NOTE | 2019-09-21 06:30 | PN ---
Physical Exam: SUBJECTIVE: Patient seen and examined, denies any fever or chills, still with pain in right hip contact IR to evaluate to remove the drainage if below 20 cc in 24 hr cardiology consulted by Dr Nesbitt , recoomend resume toresemid and hold lisinopril due to hyper k seen by dr braden last night OBJECTIVE: Vital Signs Period Temp Pulse Resp BP Sys/Marcelo Pulse Ox Last 24 Hr 98.5 F-98.5 F 61-82 20-20 117-131/50-71 96-96 Head: NC/AT Neck: supple , MMM Lungs: CTA B/l Abdomen: obese, soft NT, NT , positive BS All 4 q , abdominal surgical scar Heart: RRR B/L knee surgical scar right hip draining seracenous fluids no focal deficit , sensation intact , move all ext walk with PT with walker Laboratory Results - last 24 hr 09/20/19 09/20/19 09/20/19 07:55 07:55 11:49 WBC 5.5 RBC 3.19 L Hgb 9.1 L Hct 28.2 L MCV 88.6 MCH 28.7 MCHC 32.4 RDW 15.8 H Plt Count 291 MPV 7.3 L Absolute Neuts (auto) 3.0 Neutrophils % 53.8 Lymphocytes % 25.4 Monocytes % 13.9 H Eosinophils % 5.8 H Basophils % 1.1 Nucleated RBC % 0 Sodium 139 Potassium 5.2 H Chloride 110 H Carbon Dioxide 23 Anion Gap 6 L BUN 24.5 H Creatinine 1.1 Est GFR (CKD-EPI)AfAm 57.68 Est GFR (CKD-EPI)NonAf 49.77 POC Glucometer 190 Random Glucose 157 H Calcium 8.3 L Total Bilirubin 0.4 AST 9 L ALT 11 L Alkaline Phosphatase 127 H Total Protein 6.3 L Albumin 2.3 L 09/20/19 09/20/19 09/21/19 16:34 22:08 05:43 WBC RBC Hgb Hct MCV MCH MCHC RDW Plt Count MPV Absolute Neuts (auto) Neutrophils % Lymphocytes % Monocytes % Eosinophils % Basophils % Nucleated RBC % Sodium Potassium Chloride Carbon Dioxide Anion Gap BUN Creatinine Est GFR (CKD-EPI)AfAm Est GFR (CKD-EPI)NonAf POC Glucometer 187 192 168 Random Glucose Calcium Total Bilirubin AST ALT Alkaline Phosphatase Total Protein Albumin Active Medications Generic Name Dose Route Start Last Admin Trade Name Freq PRN Reason Stop Dose Admin Amino Acids 30 ml 09/12/19 10:00 09/20/19 11:01 Prosource No Carb Liquid Pkt PO Not Given DAILY LISA Baclofen 10 mg 09/12/19 14:57 09/20/19 21:19 Lioresal - PO 10 mg BID LISA Administration Carvedilol 12.5 mg 09/10/19 22:00 09/20/19 21:19 Coreg - PO 12.5 mg BID LISA Administration Docusate Sodium 100 mg 09/19/19 22:00 09/20/19 21:19 Colace - PO 100 mg BID LISA Administration Gabapentin 300 mg 09/18/19 22:00 09/21/19 05:31 Neurontin - PO 300 mg TID LISA Administration Insulin Aspart 1 vial 09/10/19 22:00 09/20/19 22:16 Novolog Vial Sliding Scale - SQ 1 unit ACHS LISA Administration Protocol Leflunomide 10 mg 09/11/19 10:00 09/20/19 10:58 Arava - PO 10 mg DAILY LISA Administration Oxycodone HCl 10 mg 09/11/19 12:45 09/20/19 21:19 Oxycontin - PO 10 mg BID LISA Administration Oxycodone HCl 10 mg 09/14/19 10:27 09/21/19 05:31 Roxicodone - PO 10 mg Q4H PRN Administration PAIN LEVEL 6-10 Rivaroxaban 20 mg 09/14/19 18:00 09/20/19 18:16 Xarelto PO 20 mg DAILY@1800 LISA Administration Sodium Zirconium Cyclosilicate 5 gm 09/19/19 10:00 09/20/19 13:33 Lokelma PO 5 gm DAILY LISA Administration Torsemide 50 mg 09/20/19 11:45 09/20/19 15:49 Demadex - PO 50 mg DAILY LISA Administration ASSESSMENT/PLAN: 74 F h/o multiple back surgeries, last 07/2019, admitted for refractory R hip pain shooting down R leg, underwent diagnostic/therapeutic joint tap. Will await ortho recommendations. #R Hip/tibial pain #Lumbar stenosis with radiculopathy * s/p L4, L5, S1 laminectomies, facetectomies, and foraminotomies; L3-S1 posterolateral arthrodesis, repair of incidental durotomy 07/16/19 * s/p pigtail drainage of posterior lumbar spine seroma * Still having right buttock/thigh pain * cont to drain * spoken with dr Braden today who recommend to remove the drainage if it s less than 20 cc , he think the pain is due to fractioon of soft tissue with the hard gutiérrez * cont PT * gabapentin, baclofen, * cont. xarelto * pain control with oxycodone PRN, restart muscle relaxants, Gabapentin increased to 300 TID for neuropathy * bowel regimen colace 100 BID * FU Dr. Braden recommendations :PLANFor review ? revision stem ie minimal shoulder design with debridement of bursa. May require additional soft tissue reconstruction. #h/o DVT/PE * Cont. Xarelto 20mg daily * /TEDs * has IVC filter #chronic systolic and idastolic Heart failure * not in acute exacerbation, in fact relatively volume depleted * cont Torsemide, hold lisinopril due to Hyper K * PO hydration # Non ischemic cardiomyopathy #HTN * cont. BP meds as tolerated , carvedilol 12.5 bid * hold lisinopril 5 due to Hyper K #Insomnia * restart Zolpidem #Hypoalbuminemia * 2/2 poor intake, malnourishment * prosource * Dietary consult #T2DM * ISS * BGM * diabetic diet #Afib on AC * rate controlled * cont xarelto 20 mg po daily # RA cont Arva # Anemia likely due to chronic disease , monitor H/H daily # Obesity with BMI 36.7 , educated about life style changes and diet modification # DVT prophylaxis on xarelto no need for GI proph # Hyperkalemia, resolved hold lokelma , hols lisinopril # Dispo: M/S benita sanchez from [facility] [place] upon dc Visit type - Emergency Visit Emergency Visit: Yes ED Registration Date: 09/07/19 Care time: The patient presented to the Emergency Department on the above date and was hospitalized for further evaluation of their emergent condition. - New Patient This patient is new to me today: No - Critical Care Critical Care patient: No ATTENDING PHYSICIAN STATEMENT I saw and evaluated the patient. I reviewed the resident's note and discussed the case with the resident. I agree with the resident's findings and plan as documented. SUBJECTIVE: OBJECTIVE: ASSESSMENT AND PLAN:
--- NOTE | 2019-09-21 10:07 | PN ---
Progress Note, Physician Chief Complaint: Urinating Edema improved. - Current Medication List Current Medications: Active Medications Amino Acids (Prosource No Carb Liquid Pkt) 30 ml PO DAILY [facility] Last Admin: 09/20/19 11:01 Dose: Not Given Baclofen (Lioresal -) 10 mg PO BID [facility] Last Admin: 09/20/19 21:19 Dose: 10 mg Carvedilol (Coreg -) 12.5 mg PO BID [facility] Last Admin: 09/20/19 21:19 Dose: 12.5 mg Docusate Sodium (Colace -) 100 mg PO BID [facility] Last Admin: 09/20/19 21:19 Dose: 100 mg Gabapentin (Neurontin -) 300 mg PO TID [facility] Last Admin: 09/21/19 05:31 Dose: 300 mg Insulin Aspart (Novolog Vial Sliding Scale -) 1 vial SQ ACHS [facility]; Protocol Last Admin: 09/21/19 06:29 Dose: 1 unit Leflunomide (Arava -) 10 mg PO DAILY [facility] Last Admin: 09/20/19 10:58 Dose: 10 mg Oxycodone HCl (Oxycontin -) 10 mg PO BID [facility] Last Admin: 09/20/19 21:19 Dose: 10 mg Oxycodone HCl (Roxicodone -) 10 mg PO Q4H PRN PRN Reason: PAIN LEVEL 6-10 Last Admin: 09/21/19 05:31 Dose: 10 mg Rivaroxaban (Xarelto) 20 mg PO DAILY@1800 [facility] Last Admin: 09/20/19 18:16 Dose: 20 mg Sodium Zirconium Cyclosilicate (Lokelma) 5 gm PO DAILY [facility] Last Admin: 09/20/19 13:33 Dose: 5 gm Torsemide (Demadex -) 50 mg PO DAILY [facility] Last Admin: 09/20/19 15:49 Dose: 50 mg - Objective Vital Signs: Vital Signs Temperature 98.1 F 09/21/19 05:00 Pulse Rate 67 09/21/19 05:00 Respiratory Rate 20 09/21/19 05:00 Blood Pressure 137/62 09/21/19 05:00 O2 Sat by Pulse Oximetry (%) 96 09/20/19 21:00 Constitutional: Yes: No Distress, Calm Cardiovascular: Yes: Regular Rate and Rhythm Respiratory: Yes: CTA Bilaterally Gastrointestinal: Yes: Soft, Abdomen, Obese Edema: Yes Edema: LLE: 1+, RLE: 1+ Neurological: Yes: Alert, Oriented Labs: CBC, BMP 09/20/19 07:55 09/20/19 07:55 INR, PTT INR 1.28 (0.83-1.09) H 09/10/19 10:30 Assessment/Plan IMP: Acute on chronic diastolic CHF: mild exacerbation History of combined systolic/diastolic CHF Paroxysmal atrial fibrillation Chronic hypertension History of DVTs/PE w/p IVC filter NICHOLE REC: 1. Mild volume retention in setting of not receiving usual Torsemide, now resumed. 2. Daily weights 3. Continue Coreg and Xarelto (for PAF and hx DVT) 4. Agree Holding Lisinopril (soft BPs but also because of elevated K+). To be resumed as outpatient, defer to primary cards (Dr. Pastrana). 5. Check lytes
[2019-09-21] MEDS ORDERED: PT OWN MED DRAWER 7, Y5N ONE (10:09)
[2019-09-21] MEDS: oxyCODONE HCL 10 MG SUSTAINED ACTING TABLET PO SCH ×2 (10:19→21:08)
[2019-09-21] MEDS: DOCUSATE SODIUM 100 MG CAPSULE (FP) PO SCH ×2 (10:20→21:08)
[2019-09-21] MEDS: TORSEMIDE 20 MG TABLET (FP) PO SCH (10:20)
[2019-09-21] MEDS: CARVEDILOL 12.5 MG TABLET (FP) PO SCH ×2 (10:20→21:08)
[2019-09-21] MEDS: BACLOFEN 10 MG TABLET (FP) PO SCH ×2 (10:20→21:08)
[2019-09-21] MEDS: AMINO ACIDS/PROTEIN HYDROLYS 30 ML LIQUID.PKT PO SCH (10:21)
[2019-09-21] MEDS: LEFLUNOMIDE 10 MG TABLET PO SCH (10:22)
[2019-09-21] MEDS ORDERED: INSULIN (NOVOLOG) ASPART 100 UNITS/ML 10ML VIAL ONE (12:08)
[2019-09-21] MEDS ORDERED: HYDROmorphone HCl 2 MG/ML VIAL IVPUSH ONE (12:33)
[2019-09-21] MEDS ORDERED: HYDROmorphone HCl 2 MG/ML VIAL IVPB ONE (13:20)
--- NOTE | 2019-09-21 13:20 | PN ---
Teaching Attending Note Name of Resident: Sb Garcia ATTENDING PHYSICIAN STATEMENT I saw and evaluated the patient. I reviewed the resident's note and discussed the case with the resident. I agree with the resident's findings and plan as documented. SUBJECTIVE: Patient seen and examined at bedside. Still c/o pain R hip, spinal drain in place still draining light-justine fluid, ?need for revision next week, VS otherwise stable, will follow. Objective: PE GA AAox3, speaking in full sentences, NAD, sitting up in stretcher HEENT NC/AT, EOMI, dry MM, neck supple Chest CTAB, no crackles, no wheezing CVS S1, S2+, RRR, no m/r/g Abd Soft, NT, ND, BS+ Ext improved LE edema b/l, no calf tenderness, passive ROM R hip with pain, passive ROM L hip without pain, spinal drain expressing light-justine colored fluid no blood or pus. Vital Signs - 24 hr 09/20/19 09/20/19 09/20/19 14:00 15:45 17:14 Temperature 98.5 F 98.5 F Pulse Rate 78 82 77 Respiratory 20 20 20 Rate Blood Pressure 130/60 131/55 L 125/71 O2 Sat by Pulse Oximetry (%) 09/20/19 09/20/19 09/21/19 21:00 21:30 05:00 Temperature 98.1 F Pulse Rate 78 67 Respiratory 20 20 Rate Blood Pressure 124/72 137/62 O2 Sat by Pulse 96 Oximetry (%) 09/21/19 10:17 Temperature 98.3 F Pulse Rate 72 Respiratory 20 Rate Blood Pressure 117/58 L O2 Sat by Pulse Oximetry (%) Microbiology 09/13/19 15:06 Body Fluid - Other Gram Stain - Final 09/13/19 15:06 Body Fluid - Other Body Fluid Culture - Final NO GROWTH OF AEROBIC ORGANISMS AFTER 48 HOURS INCUBATION 09/13/19 15:06 Body Fluid - Other Anaerobic Culture - Final NO ANAEROBES WERE ISOLATED 09/13/19 15:06 Abscess AFB Smear Concentration - Final 09/13/19 15:06 Abscess Mycobacterial Culture - Preliminary 09/13/19 15:06 Abscess LISA Preparation - Preliminary 09/13/19 15:06 Abscess Fungal Culture - Preliminary 09/10/19 15:30 Abscess Gram Stain - Final 09/10/19 15:30 Abscess Body Fluid Culture - Preliminary NO AEROBIC GROWTH, 24 HRS 09/10/19 15:30 Abscess Anaerobic Culture - Preliminary No growth. 09/10/19 15:30 Abscess AFB Smear Concentration - Final 09/10/19 15:30 Abscess Mycobacterial Culture - Preliminary 09/10/19 15:30 Abscess LISA Preparation - Preliminary 09/10/19 15:30 Abscess Fungal Culture - Preliminary 09/07/19 14:05 Urine - Urine Clean Catch Urine Culture - Final Normal Urogenital [place] Laboratory Results - last 24 hr 09/20/19 09/20/19 09/21/19 16:34 22:08 05:43 POC Glucometer 187 192 168 09/21/19 12:05 POC Glucometer 227 Current Medications Generic Name Dose Route Start Last Admin Trade Name Freq PRN Reason Stop Dose Admin Amino Acids 30 ml 09/12/19 10:00 09/21/19 10:21 Prosource No Carb Liquid Pkt PO Not Given DAILY LISA Baclofen 10 mg 09/12/19 14:57 09/21/19 10:20 Lioresal - PO 10 mg BID LISA Administration Carvedilol 12.5 mg 09/10/19 22:00 09/21/19 10:20 Coreg - PO 12.5 mg BID LISA Administration Docusate Sodium 100 mg 09/19/19 22:00 09/21/19 10:20 Colace - PO 100 mg BID LISA Administration Gabapentin 300 mg 09/18/19 22:00 09/21/19 05:31 Neurontin - PO 300 mg TID LISA Administration Insulin Aspart 1 vial 09/10/19 22:00 09/21/19 12:31 Novolog Vial Sliding Scale - SQ 2 unit ACHS LISA Administration Protocol Leflunomide 10 mg 09/11/19 10:00 09/21/19 10:22 Arava - PO 10 mg DAILY LISA Administration Oxycodone HCl 10 mg 09/11/19 12:45 09/21/19 10:19 Oxycontin - PO 10 mg BID LISA Administration Oxycodone HCl 10 mg 09/14/19 10:27 09/21/19 05:31 Roxicodone - PO 10 mg Q4H PRN Administration PAIN LEVEL 6-10 Rivaroxaban 20 mg 09/14/19 18:00 09/20/19 18:16 Xarelto PO 20 mg DAILY@1800 LISA Administration Sodium Zirconium Cyclosilicate 5 gm 09/19/19 10:00 09/20/19 13:33 Lokelma PO 5 gm DAILY LISA Administration Torsemide 50 mg 09/20/19 11:45 09/21/19 10:20 Demadex - PO 50 mg DAILY LISA Administration A/P: 74 F h/o multiple back surgeries, last 07/2019, admitted for refractory R hip pain shooting down R leg, underwent diagnostic/therapeutic joint tap. Now with spinal drain, improved pain with drain and pain meds. Likely dispo to SNF/[facility]. R tibial pain (+) Voiding; (+) Flatus; (+) BM pain improved with arthrocentesis but now returned in R hip, negative cultures for infection, cont. pain meds and Gabapentin, give bowel regimen, ?will possibly need revision this upcoming week as per Dr. Borjas Now with spinal drain to drain seroma, as per Ortho recs, when draining <20mL/ 24 hr then drain may be removed by their service for now drain remains. Dr. Borjas: Ortho service h/o DVT/PE Cont. Xarelto 20mg daily /TEDs has IVC filter HFpEF now with worsening LE edema restart Torsemide 50mg daily Cardiology consult: Dr Shay HTN cont. BP meds as tolerated Insomnia cont. Ambien Hypoalbuminemia 2/2 poor intake, malnourishment Dietary recs follow T2DM ISS, basal insulin as needed to titrate F/S 140-180. Afib on AC cont. AC, BB, rate controlled DVT ppx: Xarelto FEN: no IVF/daily chem/Na restricted diet Med-Surg
[2019-09-21 13:36] LABS: EOS % 4.9 % (0-4.5); HEMATOCRIT 30.3 % (32.4-45.2); HEMOGLOBIN 9.8 GM/dL (10.7-15.3); LYMPH % 22.1 % (8-40); MCH 28.5 pg (25.7-33.7); MCHC 32.2 g/dl (32.0-36.0); MEAN CELL VOLUME 88.4 fl (80-96); MEAN PLT VOLUME 7.6 fl (7.5-11.1); MONO % 11.7 % (3.8-10.2); NEUT % 60.3 % (42.8-82.8); PLATELET COUNT 303 K/MM3 (134-434); RBC 3.43 M/mm3 (3.60-5.2); RDW 15.4 % (11.6-15.6); WHITE BLOOD COUNT 5.8 K/mm3 (4.0-10.0)
[2019-09-21 14:02] LABS: ALBUMIN 2.7 g/dl (3.4-5.0); BILIRUBIN,TOTAL 0.4 mg/dL (0.2-1); BLOOD UREA NITROGEN 33.2 mg/dL (7-18); CALCIUM 8.6 mg/dL (8.5-10.1); CREATININE 1.1 mg/dL (0.55-1.3); MAGNESIUM 2.2 mg/dL (1.8-2.4); PHOSPHOROUS 4.5 mg/dL (2.5-4.9); POTASSIUM 4.9 mmol/L (3.5-5.1); TOT PROT 7.1 g/dl (6.4-8.2)
--- NOTE | 2019-09-21 18:12 | PN ---
Progress Note (short form) - Note Progress Note: call received from RN pt's K 4.9. will hold navyawv
[2019-09-21] MEDS: RIVAROXABAN 20 MG TABLET PO SCH (18:18)
[2019-09-22] MEDS ORDERED: INSULIN (NOVOLOG) ASPART 100 UNITS/ML 10ML VIAL ONE (00:41)
[2019-09-22] MEDS: GABAPENTIN 300 MG CAPSULE PO SCH ×3 (06:05→21:54)
[2019-09-22] MEDS: INSULIN SLIDING SCALE (NOVOLOG) 1 VIAL SQ SCH ×4 (06:05→21:57)
[2019-09-22] MEDS: oxyCODONE HCL 5 MG TABLET PO PRN ×3 (06:08→23:27)
[2019-09-22] MEDS ORDERED: PT OWN MED DRAWER 7, Y5N ONE (09:02)
[2019-09-22] MEDS: DOCUSATE SODIUM 100 MG CAPSULE (FP) PO SCH ×2 (09:17→21:56)
[2019-09-22] MEDS: CARVEDILOL 12.5 MG TABLET (FP) PO SCH ×2 (09:17→21:56)
[2019-09-22 09:18] LABS: BASO % 1.1 % (0-2.0); EOS % 5.6 % (0-4.5); HEMATOCRIT 28.3 % (32.4-45.2); HEMOGLOBIN 9.2 GM/dL (10.7-15.3); LYMPH % 24.8 % (8-40); MCH 28.8 pg (25.7-33.7); MCHC 32.6 g/dl (32.0-36.0); MEAN CELL VOLUME 88.5 fl (80-96); MEAN PLT VOLUME 7.7 fl (7.5-11.1); MONO % 14.5 % (3.8-10.2); PLATELET COUNT 278 K/MM3 (134-434); RDW 15.8 % (11.6-15.6); WHITE BLOOD COUNT 5.1 K/mm3 (4.0-10.0)
[2019-09-22] MEDS: BACLOFEN 10 MG TABLET (FP) PO SCH ×2 (09:18→21:54)
[2019-09-22] MEDS: TORSEMIDE 40 MG, TORSEMIDE 10 MG PO SCH (09:18)
[2019-09-22] MEDS: AMINO ACIDS/PROTEIN HYDROLYS 30 ML LIQUID.PKT PO SCH (09:20)
[2019-09-22] MEDS: LEFLUNOMIDE 10 MG TABLET PO SCH (09:20)
[2019-09-22] MEDS: SODIUM ZIRCONIUM CYCLOSILICATE (LOKELMA) 5 GM PACKET PO SCH (09:21)
[2019-09-22 10:00] LABS: ALBUMIN 2.4 g/dl (3.4-5.0); BILIRUBIN,TOTAL 0.4 mg/dL (0.2-1); BLOOD UREA NITROGEN 27.5 mg/dL (7-18); CALCIUM 8.3 mg/dL (8.5-10.1); CREATININE 0.9 mg/dL (0.55-1.3); POTASSIUM 4.5 mmol/L (3.5-5.1); TOT PROT 6.2 g/dl (6.4-8.2)
[2019-09-22] MEDS: oxyCODONE HCL 10 MG SUSTAINED ACTING TABLET PO SCH ×2 (11:15→21:55)
--- NOTE | 2019-09-22 11:51 | PN ---
Progress Note (short form) - Note Progress Note: s: edema improved. no chest pain, palps, dizziness. stable back pain Current Medications Amino Acids (Prosource No Carb Liquid Pkt) 30 ml PO DAILY [facility] Last Admin: 09/22/19 09:20 Dose: Not Given Baclofen (Lioresal -) 10 mg PO BID [facility] Last Admin: 09/22/19 09:18 Dose: 10 mg Carvedilol (Coreg -) 12.5 mg PO BID [facility] Last Admin: 09/22/19 09:17 Dose: 12.5 mg Docusate Sodium (Colace -) 100 mg PO BID [facility] Last Admin: 09/22/19 09:17 Dose: 100 mg Gabapentin (Neurontin -) 300 mg PO TID [facility] Last Admin: 09/22/19 06:05 Dose: 300 mg Insulin Aspart (Novolog Vial Sliding Scale -) 1 vial SQ ACHS [facility]; Protocol Last Admin: 09/22/19 11:41 Dose: 3 unit Leflunomide (Arava -) 10 mg PO DAILY [facility] Last Admin: 09/22/19 09:20 Dose: 10 mg Oxycodone HCl (Oxycontin -) 10 mg PO BID [facility] Last Admin: 09/22/19 11:15 Dose: 10 mg Oxycodone HCl (Roxicodone -) 10 mg PO Q4H PRN PRN Reason: PAIN LEVEL 6-10 Last Admin: 09/22/19 06:08 Dose: 10 mg Rivaroxaban (Xarelto) 20 mg PO DAILY@1800 [facility] Last Admin: 09/21/19 18:18 Dose: 20 mg Torsemide 40 mg/ Torsemide 10 (mg) 50 mg PO DAILY [facility] Last Admin: 09/22/19 09:18 Dose: 50 mg Vital Signs Period Temp Pulse Resp BP Sys/Marcelo Pulse Ox Last 24 Hr 97.9 F-98.8 F 67-82 18-20 120-142/54-83 Constitutional: Yes: No Distress, Calm Cardiovascular: Yes: Regular Rate and Rhythm Respiratory: Yes: CTA Bilaterally Gastrointestinal: Yes: Soft, Abdomen, Obese Edema: Yes Edema: trace Neurological: Yes: Alert, Oriented no jaundice, diaphoresis not agitated Assessment/Plan IMP: Acute on chronic diastolic CHF: mild exacerbation History of combined systolic/diastolic CHF Paroxysmal atrial fibrillation Chronic hypertension History of DVTs/PE w/p IVC filter NICHOLE REC: 1. Mild volume retention in setting of not receiving usual Torsemide, resolved now that torsemide restarted, continue 2. Daily weights 3. Continue Coreg and Xarelto (for PAF and hx DVT) 4. Agree Holding Lisinopril (soft BPs but also because of elevated K+). To be resumed as outpatient, defer to primary cards (Dr. Pastrana). 5. daily lytes
--- NOTE | 2019-09-22 16:08 | PN ---
Physical Exam: SUBJECTIVE: Patient seen and examined at bedside this morning. No acute events overnight. DASH draining light justine fluid, 75cc overnight. Patient denies any fevers, chills, headache, dizziness, chest pain, SOB, abdominal pain. +flatus, + BM, +UO. OBJECTIVE: Vital Signs Temperature 98.2 F 09/22/19 13:00 Pulse Rate 72 09/22/19 13:00 Respiratory Rate 18 09/22/19 13:00 Blood Pressure 137/57 L 09/22/19 13:00 O2 Sat by Pulse Oximetry (%) 95 09/21/19 10:30 GENERAL: The patient is awake, alert, and fully oriented, in no acute distress. HEAD: Normal with no signs of trauma. EYES: PERRLA, EOMI, sclera anicteric, conjunctiva clear. ENT: moist mucous membranes. NECK: Trachea midline, full range of motion, supple. LUNGS: Breath sounds equal, clear to auscultation bilaterally. HEART: Regular rate and rhythm, S1, S2 without murmur, rub or gallop. ABDOMEN: Soft, nontender, nondistended, normoactive bowel sounds. EXTREMITIES: 2+ pulses, warm, well-perfused, no edema. NEUROLOGICAL: Cranial nerves II through XII grossly intact. Normal speech. PSYCH: Normal mood, normal affect. SKIN: Warm, dry, normal turgor. Laboratory Results - last 24 hr 09/21/19 09/21/19 09/22/19 18:08 22:35 05:40 WBC RBC Hgb Hct MCV MCH MCHC RDW Plt Count MPV Absolute Neuts (auto) Neutrophils % Lymphocytes % Monocytes % Eosinophils % Basophils % Nucleated RBC % Sodium Potassium Chloride Carbon Dioxide Anion Gap BUN Creatinine Est GFR (CKD-EPI)AfAm Est GFR (CKD-EPI)NonAf POC Glucometer 148 158 151 Random Glucose Calcium Total Bilirubin AST ALT Alkaline Phosphatase Total Protein Albumin 09/22/19 09/22/19 09/22/19 08:46 08:46 11:39 WBC 5.1 RBC 3.20 L Hgb 9.2 L Hct 28.3 L MCV 88.5 MCH 28.8 MCHC 32.6 RDW 15.8 H Plt Count 278 MPV 7.7 Absolute Neuts (auto) 2.8 Neutrophils % 54.0 Lymphocytes % 24.8 Monocytes % 14.5 H Eosinophils % 5.6 H Basophils % 1.1 Nucleated RBC % 0 Sodium 139 Potassium 4.5 Chloride 108 H Carbon Dioxide 25 Anion Gap 6 L BUN 27.5 H Creatinine 0.9 Est GFR (CKD-EPI)AfAm 73.52 Est GFR (CKD-EPI)NonAf 63.43 POC Glucometer 266 Random Glucose 155 H Calcium 8.3 L Total Bilirubin 0.4 AST 11 L ALT 10 L Alkaline Phosphatase 123 H Total Protein 6.2 L Albumin 2.4 L Active Medications Generic Name Dose Route Start Last Admin Trade Name Freq PRN Reason Stop Dose Admin Amino Acids 30 ml 09/12/19 10:00 09/22/19 09:20 Prosource No Carb Liquid Pkt PO Not Given DAILY LISA Baclofen 10 mg 09/12/19 14:57 09/22/19 09:18 Lioresal - PO 10 mg BID LISA Administration Carvedilol 12.5 mg 09/10/19 22:00 09/22/19 09:17 Coreg - PO 12.5 mg BID LISA Administration Docusate Sodium 100 mg 09/19/19 22:00 09/22/19 09:17 Colace - PO 100 mg BID LISA Administration Gabapentin 300 mg 09/18/19 22:00 09/22/19 13:43 Neurontin - PO 300 mg TID LISA Administration Insulin Aspart 1 vial 09/10/19 22:00 09/22/19 11:41 Novolog Vial Sliding Scale - SQ 3 unit ACHS LISA Administration Protocol Leflunomide 10 mg 09/11/19 10:00 09/22/19 09:20 Arava - PO 10 mg DAILY LISA Administration Oxycodone HCl 10 mg 09/11/19 12:45 09/22/19 11:15 Oxycontin - PO 10 mg BID LISA Administration Oxycodone HCl 10 mg 09/14/19 10:27 09/22/19 12:36 Roxicodone - PO 10 mg Q4H PRN Administration PAIN LEVEL 6-10 Rivaroxaban 20 mg 09/14/19 18:00 09/21/19 18:18 Xarelto PO 20 mg DAILY@1800 LISA Administration Torsemide 40 mg/ Torsemide 10 50 mg 09/22/19 10:00 09/22/19 09:18 mg PO 50 mg DAILY LISA Administration ASSESSMENT/PLAN: Patient is a 74 F h/o multiple back surgeries, last 07/2019, admitted for refractory R hip pain shooting down R leg, underwent diagnostic/therapeutic joint tap. Now with spinal drain, improved pain with drain and pain meds. Likely dispo to SNF/[facility]. #R tibial pain -pain improved with arthrocentesis but now returned in R hip -negative cultures for infection -cont. pain meds and Gabapentin, bowel regimen -possibly need revision this upcoming week as per Dr. Borjas -Plan for removal of drain when <20ml -monitor DASH drain output. -PT as tolerated. -would likely benefit from [facility] when medically optimized #h/o DVT/PE -Cont. Xarelto 20mg daily -/TEDs -has IVC filter #HFpEF -continue Torsemide 50mg daily -Cardiology (Dr. Brennan) consulted. Recs appreciated #HTN cont. BP meds as tolerated #Insomnia cont. Ambien #Hypoalbuminemia 2/2 poor intake, malnourishment Dietary recs follow #T2DM ISS, basal insulin as needed to titrate F/S 140-180. #Afib on AC cont. AC, BB, rate controlled #FEN -Not on any standing fluids -Electrolytes wnl, routine bmp monitoring -sodium restricted/diabetic diet #Prophylaxis -On Xarelto daily #Disposition -full code -med surg Visit type - Emergency Visit Emergency Visit: Yes ED Registration Date: 09/07/19 Care time: The patient presented to the Emergency Department on the above date and was hospitalized for further evaluation of their emergent condition. - New Patient This patient is new to me today: Yes Date on this admission: 09/22/19 - Critical Care Critical Care patient: No ATTENDING PHYSICIAN STATEMENT I saw and evaluated the patient. I reviewed the resident's note and discussed the case with the resident. I agree with the resident's findings and plan as documented. SUBJECTIVE: OBJECTIVE: ASSESSMENT AND PLAN:
[2019-09-22] MEDS ORDERED: HYDROmorphone HCl 2 MG/ML VIAL IVPB ONE (16:24)
[2019-09-22] MEDS: RIVAROXABAN 20 MG TABLET PO SCH (17:05)
--- NOTE | 2019-09-22 17:23 | PN ---
Teaching Attending Note Name of Resident: Marie Steen ATTENDING PHYSICIAN STATEMENT I saw and evaluated the patient. I reviewed the resident's note and discussed the case with the resident. I agree with the resident's findings and plan as documented. SUBJECTIVE:c/o excruciating pain to the R hip. started yesterday after PT. she is unable to sit or lay still. denies any numbness/tingling to the RLE, bowel/ bladder incontinence. OBJECTIVE: Last Vital Signs Temp Pulse Resp BP Pulse Ox 97.4 F L 71 18 146/70 95 09/22/19 16:00 09/22/19 16:00 09/22/19 16:00 09/22/19 16:00 09/21/19 10:30 General distress due to pain, unable to sit still. tearful during exam CV S1 S2 tachycardic Lungs CTA anteriorly Extremities- refuses exam of the R hip due to pain. sensation grossly intact to the R leg. L hip NT, +DASH drain with serous fluid, trace pitting edema B/L LE ASSESSMENT AND PLAN: 74yo F wtih PMH HTN, systolic CHF, afib, DM, RA, DVT/PE and lumbar spinal stenosis with R hip pain 1. Lumbar stenosis with Radiculopathy- s/p L4, L5, S1 laminectomies, facetectomies, and foraminotomies; L3-S1 posterolateral arthrodesis, repair of incidental durotomy 07/16/19. s/p pigtail drainage of posterior lumbar spine seroma. having excruciating pain to the R hip not ammendable to pain medications. will give diluadid to control pain. offered to place patch which patient refused. states she was seen by ortho this AM and is aware of her pain and informed her that he is scheduling surgery next week. monitor DASH drain output. PT as tolerated. would likely benefit from [facility] when medically optimized
[2019-09-23] MEDS: oxyCODONE HCL 5 MG TABLET PO PRN ×3 (04:41→19:48)
[2019-09-23] MEDS: INSULIN SLIDING SCALE (NOVOLOG) 1 VIAL SQ SCH ×4 (06:36→22:35)
[2019-09-23] MEDS: GABAPENTIN 300 MG CAPSULE PO SCH ×3 (06:36→22:33)
[2019-09-23 09:18] LABS: BASO % 0.9 % (0-2.0); EOS % 6.2 % (0-4.5); HEMOGLOBIN 9.5 GM/dL (10.7-15.3); LYMPH % 28.9 % (8-40); MCH 28.6 pg (25.7-33.7); MCHC 32.7 g/dl (32.0-36.0); MEAN CELL VOLUME 87.5 fl (80-96); MEAN PLT VOLUME 7.5 fl (7.5-11.1); MONO % 14.5 % (3.8-10.2); NEUT % 49.5 % (42.8-82.8); PLATELET COUNT 286 K/MM3 (134-434); RBC 3.31 M/mm3 (3.60-5.2); RDW 16.1 % (11.6-15.6); WHITE BLOOD COUNT 5.4 K/mm3 (4.0-10.0)
[2019-09-23] MEDS ORDERED: PT OWN MED DRAWER 7, Y5N ONE (09:26)
[2019-09-23 09:49] LABS: ALBUMIN 2.6 g/dl (3.4-5.0); BILIRUBIN,TOTAL 0.3 mg/dL (0.2-1); BLOOD UREA NITROGEN 30.1 mg/dL (7-18); CALCIUM 8.4 mg/dL (8.5-10.1); CREATININE 0.9 mg/dL (0.55-1.3); MAGNESIUM 2.1 mg/dL (1.8-2.4); POTASSIUM 4.5 mmol/L (3.5-5.1); TOT PROT 6.4 g/dl (6.4-8.2)
[2019-09-23] MEDS: AMINO ACIDS/PROTEIN HYDROLYS 30 ML LIQUID.PKT PO SCH (10:18)
[2019-09-23] MEDS: CARVEDILOL 12.5 MG TABLET (FP) PO SCH ×2 (10:18→22:35)
[2019-09-23] MEDS: DOCUSATE SODIUM 100 MG CAPSULE (FP) PO SCH ×2 (10:18→22:34)
[2019-09-23] MEDS: BACLOFEN 10 MG TABLET (FP) PO SCH ×2 (10:18→22:34)
[2019-09-23] MEDS: oxyCODONE HCL 10 MG SUSTAINED ACTING TABLET PO SCH ×2 (10:18→22:34)
[2019-09-23] MEDS: LEFLUNOMIDE 10 MG TABLET PO SCH (10:19)
[2019-09-23] MEDS: TORSEMIDE 40 MG, TORSEMIDE 10 MG PO SCH (10:19)
--- NOTE | 2019-09-23 11:35 | PN ---
Progress Note (short form) - Note Progress Note: s: no chest pain, palps, dizziness. complains of back pain Current Medications Amino Acids (Prosource No Carb Liquid Pkt) 30 ml PO DAILY [facility] Last Admin: 09/23/19 10:18 Dose: Not Given Baclofen (Lioresal -) 10 mg PO BID [facility] Last Admin: 09/23/19 10:18 Dose: 10 mg Carvedilol (Coreg -) 12.5 mg PO BID [facility] Last Admin: 09/23/19 10:18 Dose: 12.5 mg Docusate Sodium (Colace -) 100 mg PO BID [facility] Last Admin: 09/23/19 10:18 Dose: 100 mg Gabapentin (Neurontin -) 300 mg PO TID [facility] Last Admin: 09/23/19 06:36 Dose: 300 mg Insulin Aspart (Novolog Vial Sliding Scale -) 1 vial SQ ACHS [facility]; Protocol Last Admin: 09/23/19 06:36 Dose: 1 unit Leflunomide (Arava -) 10 mg PO DAILY [facility] Last Admin: 09/23/19 10:19 Dose: 10 mg Oxycodone HCl (Oxycontin -) 10 mg PO BID [facility] Last Admin: 09/23/19 10:18 Dose: 10 mg Oxycodone HCl (Roxicodone -) 10 mg PO Q4H PRN PRN Reason: PAIN LEVEL 6-10 Last Admin: 09/23/19 04:41 Dose: 10 mg Rivaroxaban (Xarelto) 20 mg PO DAILY@1800 [facility] Last Admin: 09/22/19 17:05 Dose: 20 mg Torsemide 40 mg/ Torsemide 10 (mg) 50 mg PO DAILY [facility] Last Admin: 09/23/19 10:19 Dose: 50 mg Vital Signs Period Temp Pulse Resp BP Sys/Marcelo Pulse Ox Last 24 Hr 97.4 F-98.4 F 71-79 18-22 104-146/57-70 Constitutional: Yes: No Distress, Calm Cardiovascular: Yes: Regular Rate and Rhythm Respiratory: Yes: CTA Bilaterally Gastrointestinal: Yes: Soft, Abdomen, Obese Edema: Yes Edema: trace Neurological: Yes: Alert, Oriented no jaundice, diaphoresis not agitated Assessment/Plan IMP: Acute on chronic diastolic CHF: mild exacerbation History of combined systolic/diastolic CHF Paroxysmal atrial fibrillation Chronic hypertension History of DVTs/PE w/p IVC filter NICHOLE REC: 1. cont torsemide 2. Daily weights 3. Continue Coreg and Xarelto (for PAF and hx DVT) 4.Holding Lisinopril (soft BPs and elevated K). To be resumed as outpatient, defer to primary cards (Dr. Pastrana). 5. daily lytes
--- NOTE | 2019-09-23 13:56 | PN ---
Progress Note, Physician History of Present Illness: seen and examined at bedside. When i walked in the room the patient was sitting on the edge of the bed and dozing off, nodding off, and falling asleep. I observed her for about 1-2 minutes then woke her up and she requested Dilaudid. Endorses severe pain of the right hip and side. Denies fever chills chest pain or SOB. - Current Medication List Current Medications: Active Medications Amino Acids (Prosource No Carb Liquid Pkt) 30 ml PO DAILY [facility] Last Admin: 09/23/19 10:18 Dose: Not Given Baclofen (Lioresal -) 10 mg PO BID [facility] Last Admin: 09/23/19 10:18 Dose: 10 mg Carvedilol (Coreg -) 12.5 mg PO BID [facility] Last Admin: 09/23/19 10:18 Dose: 12.5 mg Docusate Sodium (Colace -) 100 mg PO BID [facility] Last Admin: 09/23/19 10:18 Dose: 100 mg Gabapentin (Neurontin -) 300 mg PO TID [facility] Last Admin: 09/23/19 06:36 Dose: 300 mg Insulin Aspart (Novolog Vial Sliding Scale -) 1 vial SQ ACHS [facility]; Protocol Last Admin: 09/23/19 11:35 Dose: 1 unit Leflunomide (Arava -) 10 mg PO DAILY [facility] Last Admin: 09/23/19 10:19 Dose: 10 mg Oxycodone HCl (Oxycontin -) 10 mg PO BID [facility] Last Admin: 09/23/19 10:18 Dose: 10 mg Oxycodone HCl (Roxicodone -) 10 mg PO Q4H PRN PRN Reason: PAIN LEVEL 6-10 Last Admin: 09/23/19 04:41 Dose: 10 mg Rivaroxaban (Xarelto) 20 mg PO DAILY@1800 [facility] Last Admin: 09/22/19 17:05 Dose: 20 mg Torsemide 40 mg/ Torsemide 10 (mg) 50 mg PO DAILY [facility] Last Admin: 09/23/19 10:19 Dose: 50 mg - Objective Vital Signs: Vital Signs Temperature 98.4 F 09/23/19 06:00 Pulse Rate 73 09/23/19 06:00 Respiratory Rate 18 09/23/19 06:00 Blood Pressure 126/68 09/23/19 06:00 O2 Sat by Pulse Oximetry (%) 95 09/21/19 10:30 Constitutional: Yes: No Distress, Obese, Other (nodding off and dozing off) Eyes: Yes: EOM Intact HENT: Yes: Other (moist oral mucosa) Cardiovascular: Yes: Pulse Irregular Respiratory: Yes: WNL, Regular, CTA Bilaterally Gastrointestinal: Yes: Normal Bowel Sounds, Soft, Abdomen, Obese Extremities: Yes: Other (left hip with drain in place. Output is serous.) Edema: Yes Edema: LLE: 1+, RLE: 1+ Neurological: Yes: Oriented, Other (dozing off but easily aroused.) Labs: CBC, BMP 09/23/19 08:26 09/23/19 08:26 INR, PTT INR 1.28 (0.83-1.09) H 09/10/19 10:30 Impression/Plan Impression/Plan: Patient is a 74 F h/o multiple back surgeries, last 07/2019, admitted for refractory R hip pain shooting down R leg, underwent diagnostic/therapeutic joint tap. Now with spinal drain, improved pain with drain and pain meds. Likely dispo to SNF/[facility]. right hip pain monitor drain output pain control plan for revision per Dr. Borjas h/o DVT/PE with IVC filter Cont. Xarelto 20mg daily HFpEF continue Torsemide 50mg daily Cardiology Recs appreciated HTN cont. BP meds as tolerated T2DM ISS, basal insulin as needed to titrate F/S 140-180. sodium restricted/diabetic diet ? history of Afib on AC-EKGs sinus but pulse irregular has PVCs on EKGs cont. AC, BB, rate controlled Prophylaxis On Xarelto daily Visit type - Emergency Visit Emergency Visit: Yes ED Registration Date: 09/07/19 Care time: The patient presented to the Emergency Department on the above date and was hospitalized for further evaluation of their emergent condition. - New Patient This patient is new to me today: Yes Date on this admission: 09/23/19 - Critical Care Critical Care patient: No
[2019-09-23] MEDS: RIVAROXABAN 20 MG TABLET PO SCH (17:51)
[2019-09-24] MEDS ORDERED: ZOLPIDEM TARTRATE 5 MG TABLET PO ONE (01:30)
[2019-09-24] MEDS: oxyCODONE HCL 5 MG TABLET PO PRN ×4 (02:09→17:50)
[2019-09-24] MEDS: GABAPENTIN 300 MG CAPSULE PO SCH ×3 (06:40→21:22)
[2019-09-24] MEDS: INSULIN SLIDING SCALE (NOVOLOG) 1 VIAL SQ SCH ×4 (06:41→21:27)
--- NOTE | 2019-09-24 07:27 | PN ---
Physical Exam: SUBJECTIVE: Patient seen and examined, denies any fever or chills, still with pain in right hip contact IR to evaluate to remove the drainage if below 20 cc in 24 hr cardiology consulted by Dr Nesbitt , recommend resume toresemid and hold lisinopril due to hyper k still with right hip pain , will consult pain management OBJECTIVE: Vital Signs Period Temp Pulse Resp BP Sys/Marcelo Pulse Ox Last 24 Hr 97.3 F-98.5 F 78-98 18-18 114-157/52-97 96 Head: NC/AT Neck: supple , MMM Lungs: CTA B/l Abdomen: obese, soft NT, NT , positive BS All 4 q , abdominal surgical scar Heart: RRR B/L knee surgical scar right hip draining seracenous fluids no focal deficit , sensation intact , move all ext walk with PT with walker Laboratory Results - last 24 hr 09/23/19 09/23/19 09/23/19 08:26 08:26 11:32 WBC 5.4 RBC 3.31 L Hgb 9.5 L Hct 29.0 L MCV 87.5 MCH 28.6 MCHC 32.7 RDW 16.1 H Plt Count 286 MPV 7.5 Absolute Neuts (auto) 2.7 Neutrophils % 49.5 Lymphocytes % 28.9 Monocytes % 14.5 H Eosinophils % 6.2 H Basophils % 0.9 Nucleated RBC % 0 Sodium 138 Potassium 4.5 Chloride 106 Carbon Dioxide 26 Anion Gap 6 L BUN 30.1 H Creatinine 0.9 Est GFR (CKD-EPI)AfAm 73.52 Est GFR (CKD-EPI)NonAf 63.43 POC Glucometer 185 Random Glucose 136 H Calcium 8.4 L Magnesium 2.1 Total Bilirubin 0.3 AST 9 L ALT 11 L Alkaline Phosphatase 123 H Total Protein 6.4 Albumin 2.6 L 09/23/19 09/23/19 09/24/19 17:56 22:33 05:49 WBC RBC Hgb Hct MCV MCH MCHC RDW Plt Count MPV Absolute Neuts (auto) Neutrophils % Lymphocytes % Monocytes % Eosinophils % Basophils % Nucleated RBC % Sodium Potassium Chloride Carbon Dioxide Anion Gap BUN Creatinine Est GFR (CKD-EPI)AfAm Est GFR (CKD-EPI)NonAf POC Glucometer 181 201 181 Random Glucose Calcium Magnesium Total Bilirubin AST ALT Alkaline Phosphatase Total Protein Albumin Active Medications Generic Name Dose Route Start Last Admin Trade Name Freq PRN Reason Stop Dose Admin Amino Acids 30 ml 09/12/19 10:00 09/23/19 10:18 Prosource No Carb Liquid Pkt PO Not Given DAILY LISA Baclofen 10 mg 09/12/19 14:57 09/23/19 22:34 Lioresal - PO 10 mg BID LISA Administration Carvedilol 12.5 mg 09/10/19 22:00 09/23/19 22:35 Coreg - PO 12.5 mg BID LISA Administration Docusate Sodium 100 mg 09/19/19 22:00 09/23/19 22:34 Colace - PO 100 mg BID LISA Administration Gabapentin 300 mg 09/18/19 22:00 09/24/19 06:40 Neurontin - PO 300 mg TID LISA Administration Insulin Aspart 1 vial 09/10/19 22:00 09/24/19 06:41 Novolog Vial Sliding Scale - SQ 1 unit ACHS LISA Administration Protocol Leflunomide 10 mg 09/11/19 10:00 09/23/19 10:19 Arava - PO 10 mg DAILY LISA Administration Oxycodone HCl 10 mg 09/11/19 12:45 09/23/19 22:34 Oxycontin - PO 10 mg BID LISA Administration Oxycodone HCl 10 mg 09/14/19 10:27 09/24/19 06:47 Roxicodone - PO 10 mg Q4H PRN Administration PAIN LEVEL 6-10 Rivaroxaban 20 mg 09/14/19 18:00 09/23/19 17:51 Xarelto PO 20 mg DAILY@1800 LISA Administration Torsemide 40 mg/ Torsemide 10 50 mg 09/22/19 10:00 09/23/19 10:19 mg PO 50 mg DAILY LISA Administration CBC, BMP 09/24/19 06:50 09/24/19 06:50 ASSESSMENT/PLAN: 74 F h/o multiple back surgeries, last 07/2019, admitted for refractory R hip pain shooting down R leg, underwent diagnostic/therapeutic joint tap. Will await ortho recommendations. #R Hip/tibial pain #Lumbar stenosis with radiculopathy * s/p L4, L5, S1 laminectomies, facetectomies, and foraminotomies; L3-S1 posterolateral arthrodesis, repair of incidental durotomy 07/16/19 * s/p pigtail drainage of posterior lumbar spine seroma * Still having right buttock/thigh pain * cont to drain * spoken with dr Borjas today who recommend to remove the drainage if it s less than 20 cc , he think the pain is due to fractioon of soft tissue with the hard gutiérrez * cont PT * gabapentin, baclofen, * cont. xarelto * pain control with oxycodone PRN, restart muscle relaxants, Gabapentin increased to 300 TID for neuropathy * bowel regimen colace 100 BID * FU Dr. Borjas recommendations :PLANFor review ? revision stem ie minimal shoulder design with debridement of bursa. May require additional soft tissue reconstruction. #h/o DVT/PE * Cont. Xarelto 20mg daily * /TEDs * has IVC filter #chronic systolic and idastolic Heart failure * not in acute exacerbation, in fact relatively volume depleted * cont Torsemide, hold lisinopril due to Hyper K * PO hydration # Non ischemic cardiomyopathy #HTN * cont. BP meds as tolerated , carvedilol 12.5 bid * hold lisinopril 5 due to Hyper K #Insomnia * restart Zolpidem #Hypoalbuminemia * 2/2 poor intake, malnourishment * prosource * Dietary consult #T2DM * ISS * BGM * diabetic diet #Afib on AC * rate controlled * cont xarelto 20 mg po daily # RA cont Arva # Anemia likely due to chronic disease , monitor H/H daily # Obesity with BMI 36.7 , educated about life style changes and diet modification # DVT prophylaxis on xarelto no need for GI proph # Hyperkalemia, resolved hold lokelma , hols lisinopril # Dispo: M/S will benift from [facility] upon dc Visit type - Emergency Visit Emergency Visit: Yes ED Registration Date: 09/07/19 Care time: The patient presented to the Emergency Department on the above date and was hospitalized for further evaluation of their emergent condition. - New Patient This patient is new to me today: No - Critical Care Critical Care patient: No - Discharge Referral Referred to [facility] Med P.C.: No ATTENDING PHYSICIAN STATEMENT I saw and evaluated the patient. I reviewed the resident's note and discussed the case with the resident. I agree with the resident's findings and plan as documented. SUBJECTIVE: OBJECTIVE: ASSESSMENT AND PLAN:
[2019-09-24 08:06] LABS: BLOOD UREA NITROGEN 34.4 mg/dL (7-18); CALCIUM 8.4 mg/dL (8.5-10.1); MAGNESIUM 2.1 mg/dL (1.8-2.4); POTASSIUM 4.3 mmol/L (3.5-5.1)
[2019-09-24 08:07] LABS: BASO % 1.2 % (0-2.0); EOS % 5.6 % (0-4.5); HEMATOCRIT 29.8 % (32.4-45.2); HEMOGLOBIN 9.6 GM/dL (10.7-15.3); LYMPH % 26.2 % (8-40); MCH 28.6 pg (25.7-33.7); MCHC 32.3 g/dl (32.0-36.0); MEAN CELL VOLUME 88.6 fl (80-96); MEAN PLT VOLUME 7.6 fl (7.5-11.1); MONO % 13.4 % (3.8-10.2); NEUT % 53.6 % (42.8-82.8); PLATELET COUNT 273 K/MM3 (134-434); RBC 3.36 M/mm3 (3.60-5.2); RDW 16.6 % (11.6-15.6); WHITE BLOOD COUNT 5.9 K/mm3 (4.0-10.0)
[2019-09-24] MEDS: oxyCODONE HCL 10 MG SUSTAINED ACTING TABLET PO SCH ×2 (10:34→21:22)
[2019-09-24] MEDS: DOCUSATE SODIUM 100 MG CAPSULE (FP) PO SCH ×2 (10:37→21:21)
[2019-09-24] MEDS: CARVEDILOL 12.5 MG TABLET (FP) PO SCH ×2 (10:37→21:23)
[2019-09-24] MEDS: BACLOFEN 10 MG TABLET (FP) PO SCH ×2 (10:38→21:21)
[2019-09-24] MEDS: LEFLUNOMIDE 10 MG TABLET PO SCH (10:39)
[2019-09-24] MEDS: AMINO ACIDS/PROTEIN HYDROLYS 30 ML LIQUID.PKT PO SCH (10:42)
[2019-09-24] MEDS: TORSEMIDE 40 MG, TORSEMIDE 10 MG PO SCH (11:29)
--- NOTE | 2019-09-24 11:29 | PN ---
Progress Note (short form) - Note Progress Note: s: no chest pain, palps, dizziness. Current Medications Amino Acids (Prosource No Carb Liquid Pkt) 30 ml PO DAILY [facility] Last Admin: 09/24/19 10:42 Dose: Not Given Baclofen (Lioresal -) 10 mg PO BID [facility] Last Admin: 09/24/19 10:38 Dose: 10 mg Carvedilol (Coreg -) 12.5 mg PO BID [facility] Last Admin: 09/24/19 10:37 Dose: 12.5 mg Docusate Sodium (Colace -) 100 mg PO BID [facility] Last Admin: 09/24/19 10:37 Dose: 100 mg Gabapentin (Neurontin -) 300 mg PO TID [facility] Last Admin: 09/24/19 06:40 Dose: 300 mg Insulin Aspart (Novolog Vial Sliding Scale -) 1 vial SQ ACHS [facility]; Protocol Last Admin: 09/24/19 06:41 Dose: 1 unit Leflunomide (Arava -) 10 mg PO DAILY [facility] Last Admin: 09/24/19 10:39 Dose: 10 mg Oxycodone HCl (Oxycontin -) 10 mg PO BID [facility] Last Admin: 09/24/19 10:34 Dose: 10 mg Oxycodone HCl (Roxicodone -) 10 mg PO Q4H PRN PRN Reason: PAIN LEVEL 6-10 Last Admin: 09/24/19 06:47 Dose: 10 mg Rivaroxaban (Xarelto) 20 mg PO DAILY@1800 [facility] Last Admin: 09/23/19 17:51 Dose: 20 mg Torsemide 40 mg/ Torsemide 10 (mg) 50 mg PO DAILY [facility] Last Admin: 09/23/19 10:19 Dose: 50 mg Vital Signs Period Temp Pulse Resp BP Sys/Marcelo Pulse Ox Last 24 Hr 97.3 F-98.5 F 78-98 18-18 114-157/52-97 96 Constitutional: Yes: No Distress, Calm Cardiovascular: Yes: Regular Rate and Rhythm Respiratory: Yes: CTA Bilaterally Gastrointestinal: Yes: Soft, Abdomen, Obese Edema: Yes Edema: trace Neurological: Yes: Alert, Oriented no jaundice, diaphoresis not agitated Assessment/Plan IMP: Acute on chronic diastolic CHF: mild exacerbation History of combined systolic/diastolic CHF Paroxysmal atrial fibrillation Chronic hypertension History of DVTs/PE w/p IVC filter NICHOLE REC: 1. cont torsemide 2. Daily weights, lytes 3. Continue Coreg and Xarelto (for PAF and hx DVT) 4. Holding Lisinopril (soft BPs and elevated K). To be resumed as outpatient, defer to primary cards (Dr. Pastrana).
--- NOTE | 2019-09-24 14:02 | PN ---
Physical Exam: SUBJECTIVE: Patient seen and examined at bedside. sleeping comforably, NAD, VS stable, ?scheduled for revision surgery this week waiting for surgery recommendations. Objective: PE GA AAox3, speaking in full sentences, NAD, sitting up in stretcher HEENT NC/AT, EOMI, dry MM, neck supple Chest CTAB, no crackles, no wheezing CVS S1, S2+, RRR, no m/r/g Abd Soft, NT, ND, BS+ Ext improved LE edema b/l, no calf tenderness, passive ROM R hip with pain, passive ROM L hip without pain, spinal DASH drain serous fluid Vital Signs - 24 hr 09/23/19 09/23/19 09/24/19 18:00 21:00 02:00 Temperature 98.3 F 97.3 F L Pulse Rate 91 H 98 H Respiratory 18 18 Rate Blood Pressure 157/69 156/97 O2 Sat by Pulse 96 Oximetry (%) 09/24/19 09/24/19 06:00 10:00 Temperature 97.9 F 98.1 F Pulse Rate 78 74 Respiratory 18 18 Rate Blood Pressure 114/70 138/75 O2 Sat by Pulse Oximetry (%) Microbiology 09/13/19 15:06 Body Fluid - Other Gram Stain - Final 09/13/19 15:06 Body Fluid - Other Body Fluid Culture - Final NO GROWTH OF AEROBIC ORGANISMS AFTER 48 HOURS INCUBATION 09/13/19 15:06 Body Fluid - Other Anaerobic Culture - Final NO ANAEROBES WERE ISOLATED 09/13/19 15:06 Abscess AFB Smear Concentration - Final 09/13/19 15:06 Abscess Mycobacterial Culture - Preliminary 09/13/19 15:06 Abscess LISA Preparation - Preliminary 09/13/19 15:06 Abscess Fungal Culture - Preliminary 09/10/19 15:30 Abscess Gram Stain - Final 09/10/19 15:30 Abscess Body Fluid Culture - Preliminary NO AEROBIC GROWTH, 24 HRS 09/10/19 15:30 Abscess Anaerobic Culture - Preliminary No growth. 09/10/19 15:30 Abscess AFB Smear Concentration - Final 09/10/19 15:30 Abscess Mycobacterial Culture - Preliminary 09/10/19 15:30 Abscess LISA Preparation - Preliminary 09/10/19 15:30 Abscess Fungal Culture - Preliminary 09/07/19 14:05 Urine - Urine Clean Catch Urine Culture - Final Normal Urogenital [place] Laboratory Results - last 24 hr 0209/23/19 09/24/19 17:56 22:33 05:49 WBC RBC Hgb Hct MCV MCH MCHC RDW Plt Count MPV Absolute Neuts (auto) Neutrophils % Lymphocytes % Monocytes % Eosinophils % Basophils % Nucleated RBC % Sodium Potassium Chloride Carbon Dioxide Anion Gap BUN Creatinine Est GFR (CKD-EPI)AfAm Est GFR (CKD-EPI)NonAf POC Glucometer 181 201 181 Random Glucose Calcium Magnesium 09/24/19 09/24/19 09/24/19 06:50 06:50 11:20 WBC 5.9 RBC 3.36 L Hgb 9.6 L Hct 29.8 L MCV 88.6 MCH 28.6 MCHC 32.3 RDW 16.6 H Plt Count 273 MPV 7.6 Absolute Neuts (auto) 3.2 Neutrophils % 53.6 Lymphocytes % 26.2 Monocytes % 13.4 H Eosinophils % 5.6 H Basophils % 1.2 Nucleated RBC % 0 Sodium 139 Potassium 4.3 Chloride 108 H Carbon Dioxide 23 Anion Gap 7 L BUN 34.4 H Creatinine 1.0 Est GFR (CKD-EPI)AfAm 64.73 Est GFR (CKD-EPI)NonAf 55.85 POC Glucometer 317 Random Glucose 185 H Calcium 8.4 L Magnesium 2.1 Current Medications Generic Name Dose Route Start Last Admin Trade Name Freq PRN Reason Stop Dose Admin Amino Acids 30 ml 09/12/19 10:00 09/24/19 10:42 Prosource No Carb Liquid Pkt PO Not Given DAILY LISA Baclofen 10 mg 09/12/19 14:57 09/24/19 10:38 Lioresal - PO 10 mg BID LISA Administration Carvedilol 12.5 mg 09/10/19 22:00 09/24/19 10:37 Coreg - PO 12.5 mg BID LISA Administration Docusate Sodium 100 mg 09/19/19 22:00 09/24/19 10:37 Colace - PO 100 mg BID LISA Administration Gabapentin 300 mg 09/18/19 22:00 09/24/19 13:23 Neurontin - PO 300 mg TID LISA Administration Insulin Aspart 1 vial 09/10/19 22:00 09/24/19 11:28 Novolog Vial Sliding Scale - SQ 4 unit ACHS LISA Administration Protocol Leflunomide 10 mg 09/11/19 10:00 09/24/19 10:39 Arava - PO 10 mg DAILY LISA Administration Oxycodone HCl 10 mg 09/11/19 12:45 09/24/19 10:34 Oxycontin - PO 10 mg BID LISA Administration Oxycodone HCl 10 mg 09/14/19 10:27 09/24/19 13:24 Roxicodone - PO 10 mg Q4H PRN Administration PAIN LEVEL 6-10 Rivaroxaban 20 mg 09/14/19 18:00 09/23/19 17:51 Xarelto PO 20 mg DAILY@1800 LISA Administration Torsemide 40 mg/ Torsemide 10 50 mg 09/22/19 10:00 09/24/19 11:29 mg PO 50 mg DAILY LISA Administration A/P: 74 F h/o multiple back surgeries, last 07/2019, admitted for refractory R hip pain shooting down R leg, underwent diagnostic/therapeutic joint tap. Now with spinal drain, improved pain with drain and pain meds. Likely dispo to SNF/[facility]. R tibial pain (+) Voiding; (+) Flatus; (+) BM pain improved with arthrocentesis but now returned in R hip, negative cultures for infection, cont. pain meds and Gabapentin, give bowel regimen, ?will possibly need revision this upcoming week as per Dr. Borjas Now with spinal drain to drain seroma, as per Ortho recs, when draining <20mL/ 24 hr then drain may be removed by their service for now drain remains. Dr. Borjas: Ortho service h/o DVT/PE Cont. Xarelto 20mg daily /TEDs has IVC filter HFpEF cont. Torsemide 50mg daily Cardiology consult: Dr Shay HTN cont. BP meds as tolerated Insomnia cont. Ambien Hypoalbuminemia 2/2 poor intake, malnourishment Dietary recs follow T2DM ISS, basal insulin as needed to titrate F/S 140-180. Afib on AC cont. AC, BB, rate controlled DVT ppx: Xarelto FEN: no IVF/daily chem/Na restricted diet Med-Surg Visit type - Emergency Visit Emergency Visit: Yes ED Registration Date: 09/07/19 Care time: The patient presented to the Emergency Department on the above date and was hospitalized for further evaluation of their emergent condition. - New Patient This patient is new to me today: No - Critical Care Critical Care patient: No - Discharge Referral [facility] Med [facility] No
[2019-09-24] MEDS: RIVAROXABAN 20 MG TABLET PO SCH (17:50)
[2019-09-25] MEDS: oxyCODONE HCL 5 MG TABLET PO PRN ×4 (02:17→14:19)
[2019-09-25] MEDS: GABAPENTIN 300 MG CAPSULE PO SCH ×2 (06:33→14:19)
[2019-09-25] MEDS: INSULIN SLIDING SCALE (NOVOLOG) 1 VIAL SQ SCH ×4 (06:37→22:56)
--- NOTE | 2019-09-25 07:23 | PN ---
Physical Exam: SUBJECTIVE: Patient seen and examined, denies any fever or chills, still with pain in right hip contact IR to evaluate to remove the drainage if below 20 cc in 24 hr still with right hip pain , see by pain management and change her pain medication regimen OBJECTIVE: Vital Signs Period Temp Pulse Resp BP Sys/Marcelo Pulse Ox Last 24 Hr 97.7 F-98.6 F 68-84 18-18 122-151/51-77 95-96 Head: NC/AT Neck: supple , MMM Lungs: CTA B/l Abdomen: obese, soft NT, NT , positive BS All 4 q , abdominal surgical scar Heart: RRR B/L knee surgical scar right hip draining seracenous fluids , tender to palpation and limited rom no focal deficit , sensation intact , move all ext walk with PT with walker Laboratory Results - last 24 hr 09/24/19 09/24/19 09/24/19 06:50 06:50 11:20 WBC 5.9 RBC 3.36 L Hgb 9.6 L Hct 29.8 L MCV 88.6 MCH 28.6 MCHC 32.3 RDW 16.6 H Plt Count 273 MPV 7.6 Absolute Neuts (auto) 3.2 Neutrophils % 53.6 Lymphocytes % 26.2 Monocytes % 13.4 H Eosinophils % 5.6 H Basophils % 1.2 Nucleated RBC % 0 Sodium 139 Potassium 4.3 Chloride 108 H Carbon Dioxide 23 Anion Gap 7 L BUN 34.4 H Creatinine 1.0 Est GFR (CKD-EPI)AfAm 64.73 Est GFR (CKD-EPI)NonAf 55.85 POC Glucometer 317 Random Glucose 185 H Calcium 8.4 L Magnesium 2.1 09/24/19 09/24/19 09/25/19 16:13 21:25 06:36 WBC RBC Hgb Hct MCV MCH MCHC RDW Plt Count MPV Absolute Neuts (auto) Neutrophils % Lymphocytes % Monocytes % Eosinophils % Basophils % Nucleated RBC % Sodium Potassium Chloride Carbon Dioxide Anion Gap BUN Creatinine Est GFR (CKD-EPI)AfAm Est GFR (CKD-EPI)NonAf POC Glucometer 127 220 160 Random Glucose Calcium Magnesium Active Medications Generic Name Dose Route Start Last Admin Trade Name Freq PRN Reason Stop Dose Admin Amino Acids 30 ml 09/12/19 10:00 09/24/19 10:42 Prosource No Carb Liquid Pkt PO Not Given DAILY LISA Baclofen 10 mg 09/12/19 14:57 09/24/19 21:21 Lioresal - PO 10 mg BID LISA Administration Carvedilol 12.5 mg 09/10/19 22:00 09/24/19 21:23 Coreg - PO 12.5 mg BID LISA Administration Docusate Sodium 100 mg 09/19/19 22:00 09/24/19 21:21 Colace - PO 100 mg BID LISA Administration Gabapentin 300 mg 09/18/19 22:00 09/25/19 06:33 Neurontin - PO 300 mg TID LISA Administration Insulin Aspart 1 vial 09/10/19 22:00 09/25/19 06:37 Novolog Vial Sliding Scale - SQ 1 unit ACHS LISA Administration Protocol Leflunomide 10 mg 09/11/19 10:00 09/24/19 10:39 Arava - PO 10 mg DAILY LISA Administration Oxycodone HCl 10 mg 09/11/19 12:45 09/24/19 21:22 Oxycontin - PO 10 mg BID LISA Administration Oxycodone HCl 10 mg 09/14/19 10:27 09/25/19 06:31 Roxicodone - PO 10 mg Q4H PRN Administration PAIN LEVEL 6-10 Rivaroxaban 20 mg 09/14/19 18:00 09/24/19 17:50 Xarelto PO 20 mg DAILY@1800 LISA Administration Torsemide 40 mg/ Torsemide 10 50 mg 09/22/19 10:00 09/24/19 11:29 mg PO 50 mg DAILY LISA Administration CBC, BMP 09/25/19 07:55 09/25/19 07:55 ASSESSMENT/PLAN: 74 F h/o multiple back surgeries, last 07/2019, admitted for refractory R hip pain shooting down R leg, underwent diagnostic/therapeutic joint tap. Will await ortho recommendations. #R Hip/tibial pain #Lumbar stenosis with radiculopathy * s/p L4, L5, S1 laminectomies, facetectomies, and foraminotomies; L3-S1 posterolateral arthrodesis, repair of incidental durotomy 07/16/19 * s/p pigtail drainage of posterior lumbar spine seroma * Still having right buttock/thigh pain * cont to drain * spoken with dr Borjas today who recommend to remove the drainage if it s less than 20 cc , he think the pain is due to fractioon of soft tissue with the hard gutiérrez * cont PT * gabapentin 400 tid , baclofen, * cont. xarelto * bowel regimen colace 100 BID * FU Dr. Borjas recommendations :PLANFor review ? revision stem ie minimal shoulder design with debridement of bursa. May require additional soft tissue reconstruction. * seen by pain mangement recommend D/C Oxicontin and Roxicodone Start Dilaudid 2 mg PO q4 PRN Toradol 30 mg IM BID PRN Neurontin 400 mg PO TID #h/o DVT/PE * Cont. Xarelto 20mg daily * /TEDs * has IVC filter #chronic systolic and idastolic Heart failure * not in acute exacerbation, in fact relatively volume depleted * cont Torsemide, hold lisinopril due to Hyper K * PO hydration # Non ischemic cardiomyopathy #HTN * cont. BP meds as tolerated , carvedilol 12.5 bid * hold lisinopril 5 due to Hyper K , resume as out pt #Insomnia * restart Zolpidem #Hypoalbuminemia * 2/2 poor intake, malnourishment * prosource * Dietary consult #T2DM * ISS * BGM * diabetic diet #Afib on AC * rate controlled * cont xarelto 20 mg po daily # RA cont Arva # Anemia likely due to chronic disease , monitor H/H daily # Obesity with BMI 36.7 , educated about life style changes and diet modification # DVT prophylaxis on xarelto no need for GI proph # Hyperkalemia, resolved hold lochriss mullins lisinopril # Dispo: M/S benita sanchez from [facility] upon dc Visit type - Emergency Visit Emergency Visit: Yes ED Registration Date: 09/07/19 Care time: The patient presented to the Emergency Department on the above date and was hospitalized for further evaluation of their emergent condition. - New Patient This patient is new to me today: No - Critical Care Critical Care patient: No - Discharge Referral Referred to [facility] Med P.C.: No ATTENDING PHYSICIAN STATEMENT I saw and evaluated the patient. I reviewed the resident's note and discussed the case with the resident. I agree with the resident's findings and plan as documented. SUBJECTIVE: OBJECTIVE: ASSESSMENT AND PLAN:
--- NOTE | 2019-09-25 08:59 | PN ---
Teaching Attending Note Name of Resident: Sb Garcia ATTENDING PHYSICIAN STATEMENT I saw and evaluated the patient. I reviewed the resident's note and discussed the case with the resident. I agree with the resident's findings and plan as documented. SUBJECTIVE: Complaint of pain OBJECTIVE: Vital Signs Temperature 98.5 F 09/25/19 06:00 Pulse Rate 70 09/25/19 06:00 Respiratory Rate 18 09/25/19 06:00 Blood Pressure 133/67 09/25/19 06:00 O2 Sat by Pulse Oximetry (%) 96 09/24/19 21:00 General: Female, comfortable, not in distress HEENT; mucous membranes moist, no anemia, no jaundice, PERRLA, no nystagmus Neck: No JVD, supple, no bruit, thyroid palpably normal, normal carotid pulsations. Chest: Nontender, clear to auscultation bilaterally/bilateral wheezing/ bilateral basal rales. CVS: S1-S2 regular/irregular no murmur/gallop/rub Abdomen: Nondistended, soft, bowel sounds present. Extremities: Right hip nonhealing wound with drain ,no edema., No cough tenderness, pulses present TOOL LAPPER HAND: AO X3 , no gross motor sensory deficit Active Medications Amino Acids (Prosource No Carb Liquid Pkt) 30 ml PO DAILY [facility] Last Admin: 09/24/19 10:42 Dose: Not Given Baclofen (Lioresal -) 10 mg PO BID [facility] Last Admin: 09/24/19 21:21 Dose: 10 mg Carvedilol (Coreg -) 12.5 mg PO BID [facility] Last Admin: 09/24/19 21:23 Dose: 12.5 mg Docusate Sodium (Colace -) 100 mg PO BID [facility] Last Admin: 09/24/19 21:21 Dose: 100 mg Gabapentin (Neurontin -) 300 mg PO TID [facility] Last Admin: 09/25/19 06:33 Dose: 300 mg Insulin Aspart (Novolog Vial Sliding Scale -) 1 vial SQ ACHS [facility]; Protocol Last Admin: 09/25/19 06:37 Dose: 1 unit Leflunomide (Arava -) 10 mg PO DAILY [facility] Last Admin: 09/24/19 10:39 Dose: 10 mg Oxycodone HCl (Oxycontin -) 10 mg PO BID [facility] Last Admin: 09/24/19 21:22 Dose: 10 mg Oxycodone HCl (Roxicodone -) 10 mg PO Q4H PRN PRN Reason: PAIN LEVEL 6-10 Last Admin: 09/25/19 06:31 Dose: 10 mg Rivaroxaban (Xarelto) 20 mg PO DAILY@1800 [facility] Last Admin: 09/24/19 17:50 Dose: 20 mg Torsemide 40 mg/ Torsemide 10 (mg) 50 mg PO DAILY [facility] Last Admin: 09/24/19 11:29 Dose: 50 mg ASSESSMENT AND PLAN:74 F h/o multiple back surgeries, last 07/2019, admitted for refractory R hip pain shooting down R leg, underwent diagnostic/therapeutic joint tap. Will await ortho recommendations Problem List - Problems (1) Infected prosthesis of right hip Assessment/Plan: Minimal discharge will follow-up with orthopedics for removal of reduction Code(s): T84.51XA - INFECT/INFLM REACTION DUE TO INTERNAL RIGHT HIP PROSTH, INIT (2) (HFpEF) heart failure with preserved ejection fraction Assessment/Plan: At present compensated continue current management Problems reviewed: Yes Code(s): I50.30 - UNSPECIFIED DIASTOLIC (CONGESTIVE) HEART FAILURE (3) HTN (hypertension), benign Assessment/Plan: Well-controlled continue current medication Problems reviewed: Yes Code(s): I10 - ESSENTIAL (PRIMARY) HYPERTENSION (4) Paroxysmal atrial fibrillation Assessment/Plan: On anticoagulation rate control Problems reviewed: Yes Code(s): I48.0 - PAROXYSMAL ATRIAL FIBRILLATION (5) Rheumatoid arthritis Assessment/Plan: Continue current manage Problems reviewed: Yes Code(s): M06.9 - RHEUMATOID ARTHRITIS, UNSPECIFIED (6) Type 2 diabetes mellitus Assessment/Plan: Optimize glycemic control Problems reviewed: Yes Code(s): E11.9 - TYPE 2 DIABETES MELLITUS WITHOUT COMPLICATIONS Qualifiers: Diabetes mellitus terminal gauger supervisor insulin use: without terminal gauger supervisor use Diabetes mellitus complication status: without complication Qualified Code(s): E11.9 - Type 2 diabetes mellitus without complications
[2019-09-25] MEDS ORDERED: PT OWN MED DRAWER 7, Y5N ONE ×2 (09:05→21:39)
[2019-09-25 09:34] LABS: BASO % 0.9 % (0-2.0); EOS % 6.2 % (0-4.5); HEMATOCRIT 32.2 % (32.4-45.2); HEMOGLOBIN 10.4 GM/dL (10.7-15.3); LYMPH % 23.8 % (8-40); MCH 28.7 pg (25.7-33.7); MCHC 32.4 g/dl (32.0-36.0); MEAN CELL VOLUME 88.8 fl (80-96); MEAN PLT VOLUME 7.7 fl (7.5-11.1); MONO % 12.2 % (3.8-10.2); NEUT % 56.9 % (42.8-82.8); PLATELET COUNT 302 K/MM3 (134-434); RBC 3.63 M/mm3 (3.60-5.2); RDW 16.3 % (11.6-15.6)
[2019-09-25 09:40] LABS: ALBUMIN 2.8 g/dl (3.4-5.0); BILIRUBIN,TOTAL 0.4 mg/dL (0.2-1); BLOOD UREA NITROGEN 26.3 mg/dL (7-18); CALCIUM 8.8 mg/dL (8.5-10.1); CREATININE 0.8 mg/dL (0.55-1.3); POTASSIUM 3.9 mmol/L (3.5-5.1); TOT PROT 7.4 g/dl (6.4-8.2)
[2019-09-25] MEDS: AMINO ACIDS/PROTEIN HYDROLYS 30 ML LIQUID.PKT PO SCH (09:42)
[2019-09-25] MEDS: TORSEMIDE 40 MG, TORSEMIDE 10 MG PO SCH (09:43)
[2019-09-25] MEDS: CARVEDILOL 12.5 MG TABLET (FP) PO SCH ×2 (09:43→22:54)
[2019-09-25] MEDS: BACLOFEN 10 MG TABLET (FP) PO SCH ×2 (09:43→22:54)
[2019-09-25] MEDS: DOCUSATE SODIUM 100 MG CAPSULE (FP) PO SCH ×2 (09:43→22:57)
[2019-09-25] MEDS: oxyCODONE HCL 10 MG SUSTAINED ACTING TABLET PO SCH (09:43)
[2019-09-25] MEDS: LEFLUNOMIDE 10 MG TABLET PO SCH (09:44)
--- NOTE | 2019-09-25 11:11 | PN ---
Progress Note (short form) - Note Progress Note: s: no chest pain, palps, dizziness. Current Medications Amino Acids (Prosource No Carb Liquid Pkt) 30 ml PO DAILY [facility] Last Admin: 09/25/19 09:42 Dose: 30 ml Baclofen (Lioresal -) 10 mg PO BID [facility] Last Admin: 09/25/19 09:43 Dose: 10 mg Carvedilol (Coreg -) 12.5 mg PO BID [facility] Last Admin: 09/25/19 09:43 Dose: 12.5 mg Docusate Sodium (Colace -) 100 mg PO BID [facility] Last Admin: 09/25/19 09:43 Dose: 100 mg Gabapentin (Neurontin -) 300 mg PO TID [facility] Last Admin: 09/25/19 06:33 Dose: 300 mg Insulin Aspart (Novolog Vial Sliding Scale -) 1 vial SQ ACHS [facility]; Protocol Last Admin: 09/25/19 06:37 Dose: 1 unit Leflunomide (Arava -) 10 mg PO DAILY [facility] Last Admin: 09/25/19 09:44 Dose: 10 mg Oxycodone HCl (Oxycontin -) 10 mg PO BID [facility] Last Admin: 09/25/19 09:43 Dose: 10 mg Oxycodone HCl (Roxicodone -) 10 mg PO Q4H PRN PRN Reason: PAIN LEVEL 6-10 Last Admin: 09/25/19 10:32 Dose: 10 mg Rivaroxaban (Xarelto) 20 mg PO DAILY@1800 [facility] Last Admin: 09/24/19 17:50 Dose: 20 mg Torsemide 40 mg/ Torsemide 10 (mg) 50 mg PO DAILY [facility] Last Admin: 09/25/19 09:43 Dose: 50 mg Vital Signs Period Temp Pulse Resp BP Sys/Marcelo Pulse Ox Last 24 Hr 97.7 F-98.6 F 68-84 18-18 122-151/51-77 96 Constitutional: Yes: No Distress, Calm Cardiovascular: Yes: Regular Rate and Rhythm Respiratory: Yes: CTA Bilaterally Gastrointestinal: Yes: Soft, Abdomen, Obese Edema: Yes Edema: trace Neurological: Yes: Alert, Oriented no jaundice, diaphoresis not agitated Assessment/Plan IMP: Acute on chronic diastolic CHF: mild exacerbation History of combined systolic/diastolic CHF Paroxysmal atrial fibrillation Chronic hypertension History of DVTs/PE w/p IVC filter NICHOLE REC: 1. cont torsemide 2. Daily weights, lytes 3. Continue Coreg and Xarelto (for PAF and hx DVT) 4. cont holding Lisinopril (soft BPs and elevated K), plan to resume as outpatient
[2019-09-25] MEDS ORDERED: SENNOSIDES 8.6MG TABLET (FP) PO ONE (12:12)
--- NOTE | 2019-09-25 14:36 | PN ---
Progress Note (short form) - Note Progress Note: She is c/o Back and Rt Hip pain 05/17 , difficulty in walking . She is taking Oxycontin and Oxicodone Current Medications Generic Name Dose Route Start Last Admin Trade Name Freq PRN Reason Stop Dose Admin Amino Acids 30 ml 09/12/19 10:00 09/25/19 09:42 Prosource No Carb Liquid Pkt PO 30 ml DAILY [facility] Administration Baclofen 10 mg 09/12/19 14:57 09/25/19 09:43 Lioresal - PO 10 mg BID [facility] Administration Carvedilol 12.5 mg 09/10/19 22:00 09/25/19 09:43 Coreg - PO 12.5 mg BID L[facility] Administration Docusate Sodium 100 mg 09/19/19 22:00 09/25/19 09:43 Colace - PO 100 mg BID [facility] Administration Gabapentin 300 mg 09/18/19 22:00 09/25/19 14:19 Neurontin - PO 300 mg TID LISA Administration Insulin Aspart 1 vial 09/10/19 22:00 09/25/19 12:22 Novolog Vial Sliding Scale - SQ 2 unit ACHS [facility] Administration Protocol Leflunomide 10 mg 09/11/19 10:00 09/25/19 09:44 Arava - PO 10 mg DAILY [facility] Administration Oxycodone HCl 10 mg 09/11/19 12:45 09/25/19 09:43 Oxycontin - PO 10 mg BID LISA Administration Oxycodone HCl 10 mg 09/14/19 10:27 09/25/19 14:19 Roxicodone - PO 10 mg Q4H PRN Administration PAIN LEVEL 6-10 Rivaroxaban 20 mg 09/14/19 18:00 09/24/19 17:50 Xarelto PO 20 mg DAILY@1800 [facility] Administration Torsemide 40 mg/ Torsemide 10 50 mg 09/22/19 10:00 09/25/19 09:43 mg PO 50 mg DAILY [facility] Administration CBCD WBC 6.0 K/mm3 (4.0-10.0) 09/25/19 07:55 RBC 3.63 M/mm3 (3.60-5.2) 09/25/19 07:55 Hgb 10.4 GM/dL (10.7-15.3) L 09/25/19 07:55 Hct 32.2 % (32.4-45.2) L 09/25/19 07:55 MCV 88.8 fl (80-96) 09/25/19 07:55 MCHC 32.4 g/dl (32.0-36.0) 09/25/19 07:55 RDW 16.3 % (11.6-15.6) H 09/25/19 07:55 Plt Count 302 K/MM3 (134-434) 09/25/19 07:55 MPV 7.7 fl (7.5-11.1) 09/25/19 07:55 CMP Sodium 139 mmol/L (136-145) 09/25/19 07:55 Potassium 3.9 mmol/L (3.5-5.1) 09/25/19 07:55 Chloride 105 mmol/L (98-107) 09/25/19 07:55 Carbon Dioxide 26 mmol/L (21-32) 09/25/19 07:55 Anion Gap 8 MMOL/L (8-16) 09/25/19 07:55 BUN 26.3 mg/dL (7-18) H 09/25/19 07:55 Creatinine 0.8 mg/dL (0.55-1.3) 09/25/19 07:55 Calcium 8.8 mg/dL (8.5-10.1) 09/25/19 07:55 Total Bilirubin 0.4 mg/dL (0.2-1) 09/25/19 07:55 AST 11 U/L (15-37) L 09/25/19 07:55 ALT 11 U/L (13-61) L 09/25/19 07:55 Alkaline Phosphatase 137 U/L (45-117) H 09/25/19 07:55 Total Protein 7.4 g/dl (6.4-8.2) 09/25/19 07:55 Albumin 2.8 g/dl (3.4-5.0) L 09/25/19 07:55 Plan : She has Chronic LBP and Hip pain s/p Hip surgery and Back surgery Medication is not helping so opioid rotation was done She is going for surgical intervention also . D/C Oxicontin and Roxicodone Start Dilaudid 2 mg PO q4 PRN Toradol 30 mg IM BID PRN Neurontin 400 mg PO TID will f/u please call me if you have any questions at [phone]. Thanks
[2019-09-25] MEDS: RIVAROXABAN 20 MG TABLET PO SCH (18:14)
[2019-09-25] MEDS: HYDROmorphone HCL 2 MG TABLET PO PRN ×2 (18:39→22:55)
[2019-09-25] MEDS: GABAPENTIN 400 MG CAPSULE PO SCH (22:54)
[2019-09-26] MEDS: HYDROmorphone HCL 2 MG TABLET PO PRN ×4 (02:49→18:30)
[2019-09-26] MEDS ORDERED: PT OWN MED DRAWER 7, Y5N ONE ×4 (06:36→21:28)
[2019-09-26] MEDS: GABAPENTIN 400 MG CAPSULE PO SCH ×4 (06:47→22:41)
--- NOTE | 2019-09-26 07:28 | PN ---
Physical Exam: SUBJECTIVE: Patient seen and examined, denies any fever or chills, still with pain in right hip contact IR to evaluate to remove the drainage if below 20 cc in 24 hr still with right hip pain , see by pain management and change her pain medication regimen NPO for possible OR today per conversation with Dr Borjas yesterday add tomasa as still constipated OBJECTIVE: Vital Signs Period Temp Pulse Resp BP Sys/Marcelo Pulse Ox Last 24 Hr 97.9 F-98.5 F 68-99 18-18 113-137/51-75 95-96 Head: NC/AT Neck: supple , MMM Lungs: CTA B/l Abdomen: obese, soft NT, NT , positive BS All 4 q , abdominal surgical scar Heart: RRR B/L knee surgical scar right hip draining seracenous fluids , tender to palpation and limited rom no focal deficit , sensation intact , move all ext walk with PT with walker Laboratory Results - last 24 hr 09/25/19 09/25/19 09/25/19 07:55 07:55 12:21 WBC 6.0 RBC 3.63 Hgb 10.4 L Hct 32.2 L MCV 88.8 MCH 28.7 MCHC 32.4 RDW 16.3 H Plt Count 302 MPV 7.7 Absolute Neuts (auto) 3.4 Neutrophils % 56.9 Lymphocytes % 23.8 Monocytes % 12.2 H Eosinophils % 6.2 H Basophils % 0.9 Nucleated RBC % 0 Sodium 139 Potassium 3.9 Chloride 105 Carbon Dioxide 26 Anion Gap 8 BUN 26.3 H Creatinine 0.8 Est GFR (CKD-EPI)AfAm 84.77 Est GFR (CKD-EPI)NonAf 73.14 POC Glucometer 240 Random Glucose 161 H Calcium 8.8 Total Bilirubin 0.4 AST 11 L ALT 11 L Alkaline Phosphatase 137 H Total Protein 7.4 Albumin 2.8 L 09/25/19 09/25/19 09/26/19 17:30 21:25 06:43 WBC RBC Hgb Hct MCV MCH MCHC RDW Plt Count MPV Absolute Neuts (auto) Neutrophils % Lymphocytes % Monocytes % Eosinophils % Basophils % Nucleated RBC % Sodium Potassium Chloride Carbon Dioxide Anion Gap BUN Creatinine Est GFR (CKD-EPI)AfAm Est GFR (CKD-EPI)NonAf POC Glucometer 141 242 166 Random Glucose Calcium Total Bilirubin AST ALT Alkaline Phosphatase Total Protein Albumin Active Medications Generic Name Dose Route Start Last Admin Trade Name Freq PRN Reason Stop Dose Admin Amino Acids 30 ml 09/12/19 10:00 09/25/19 09:42 Prosource No Carb Liquid Pkt PO 30 ml DAILY [facility] Administration Baclofen 10 mg 09/12/19 14:57 09/25/19 22:54 Lioresal - PO 10 mg BID [facility] Administration Carvedilol 12.5 mg 09/10/19 22:00 09/25/19 22:54 Coreg - PO 12.5 mg BID [facility] Administration Docusate Sodium 100 mg 09/19/19 22:00 09/25/19 22:57 Colace - PO 100 mg BID [facility] Administration Gabapentin 400 mg 09/25/19 22:00 09/26/19 06:47 Neurontin - PO 400 mg TID [facility] Administration Hydromorphone HCl 2 mg 09/25/19 14:37 09/26/19 06:45 Dilaudid - PO 2 mg Q4H PRN Administration PAIN LEVEL 1-5 Insulin Aspart 1 vial 09/10/19 22:00 09/25/19 22:56 Novolog Vial Sliding Scale - SQ 2 unit ACHS [facility] Administration Protocol Leflunomide 10 mg 09/11/19 10:00 09/25/19 09:44 Arava - PO 10 mg DAILY [facility] Administration Rivaroxaban 20 mg 09/14/19 18:00 09/25/19 18:14 Xarelto PO Not Given DAILY@1800 [facility] Torsemide 40 mg/ Torsemide 10 50 mg 09/22/19 10:00 09/25/19 09:43 mg PO 50 mg DAILY [facility] Administration ASSESSMENT/PLAN: 74 F h/o multiple back surgeries, last 07/2019, admitted for refractory R hip pain shooting down R leg, underwent diagnostic/therapeutic joint tap. Will await ortho recommendations. #R Hip/tibial pain #Lumbar stenosis with radiculopathy * s/p L4, L5, S1 laminectomies, facetectomies, and foraminotomies; L3-S1 posterolateral arthrodesis, repair of incidental durotomy 07/16/19 * s/p pigtail drainage of posterior lumbar spine seroma * Still having right buttock/thigh pain * cont to drain * spoken with dr Borjas today who recommend to remove the drainage if it s less than 20 cc , he think the pain is due to fractioon of soft tissue with the hard gutiérrez * cont PT * gabapentin 400 tid , baclofen, * cont. xarelto * bowel regimen colace 100 BID * FU Dr. Borjas recommendations :PLANFor review ? revision stem ie minimal shoulder design with debridement of bursa. May require additional soft tissue reconstruction. * seen by pain mangement recommend D/C Oxicontin and Roxicodone Start Dilaudid 2 mg PO q4 PRN Toradol 30 mg IM BID PRN Neurontin 400 mg PO TID #h/o DVT/PE * Cont. Xarelto 20mg daily * /TEDs * has IVC filter #chronic systolic and idastolic Heart failure * not in acute exacerbation, in fact relatively volume depleted * cont Torsemide, hold lisinopril due to Hyper K * PO hydration # Non ischemic cardiomyopathy #HTN * cont. BP meds as tolerated , carvedilol 12.5 bid * hold lisinopril 5 due to Hyper K , resume as out pt #Insomnia * restart Zolpidem #Hypoalbuminemia * 2/2 poor intake, malnourishment * prosource * Dietary consult #T2DM * ISS * BGM * diabetic diet #Afib on AC * rate controlled * cont xarelto 20 mg po daily # RA cont Arva # Anemia likely due to chronic disease , monitor H/H daily # Obesity with BMI 36.7 , educated about life style changes and diet modification # DVT prophylaxis on xarelto no need for GI proph # Hyperkalemia, resolved hold lokelma , hold lisinopril # Dispo: M/S will benift from [facility] upon dc Visit type - Emergency Visit Emergency Visit: Yes ED Registration Date: 09/07/19 Care time: The patient presented to the Emergency Department on the above date and was hospitalized for further evaluation of their emergent condition. - New Patient This patient is new to me today: No - Critical Care Critical Care patient: No ATTENDING PHYSICIAN STATEMENT I saw and evaluated the patient. I reviewed the resident's note and discussed the case with the resident. I agree with the resident's findings and plan as documented. SUBJECTIVE: OBJECTIVE: ASSESSMENT AND PLAN:
[2019-09-26] MEDS: INSULIN SLIDING SCALE (NOVOLOG) 1 VIAL SQ SCH ×4 (07:58→22:44)
[2019-09-26 08:54] LABS: BASO % 1.3 % (0-2.0); EOS % 6.3 % (0-4.5); HEMATOCRIT 30.3 % (32.4-45.2); LYMPH % 24.7 % (8-40); MCH 29.1 pg (25.7-33.7); MCHC 32.9 g/dl (32.0-36.0); MEAN CELL VOLUME 88.5 fl (80-96); MEAN PLT VOLUME 7.6 fl (7.5-11.1); MONO % 13.9 % (3.8-10.2); NEUT % 53.8 % (42.8-82.8); PLATELET COUNT 270 K/MM3 (134-434); RBC 3.43 M/mm3 (3.60-5.2); RDW 16.7 % (11.6-15.6); WHITE BLOOD COUNT 5.9 K/mm3 (4.0-10.0)
[2019-09-26 09:18] LABS: ALBUMIN 2.6 g/dl (3.4-5.0); BILIRUBIN,TOTAL 0.4 mg/dL (0.2-1); BLOOD UREA NITROGEN 27.7 mg/dL (7-18); CALCIUM 8.7 mg/dL (8.5-10.1); CREATININE 0.8 mg/dL (0.55-1.3); TOT PROT 6.6 g/dl (6.4-8.2)
--- NOTE | 2019-09-26 09:29 | PN ---
Progress Note (short form) - Note Progress Note: -OR today: imaging-guided right hip injection. -NPO, IVF. -Hold all chemical DVT PPx. Luis Borjas MD (Orthopaedic Surgery).
[2019-09-26] MEDS: DOCUSATE SODIUM 100 MG CAPSULE (FP) PO SCH ×2 (09:36→22:40)
[2019-09-26] MEDS: BACLOFEN 10 MG TABLET (FP) PO SCH ×2 (09:36→22:40)
[2019-09-26] MEDS: CARVEDILOL 12.5 MG TABLET (FP) PO SCH ×2 (09:36→22:40)
[2019-09-26] MEDS: LEFLUNOMIDE 10 MG TABLET PO SCH (09:37)
[2019-09-26] MEDS: AMINO ACIDS/PROTEIN HYDROLYS 30 ML LIQUID.PKT PO SCH (09:37)
[2019-09-26] MEDS: TORSEMIDE 40 MG, TORSEMIDE 10 MG PO SCH (09:38)
--- NOTE | 2019-09-26 10:05 | PN ---
Teaching Attending Note Name of Resident: Sb Garcia ATTENDING PHYSICIAN STATEMENT I saw and evaluated the patient. I reviewed the resident's note and discussed the case with the resident. I agree with the resident's findings and plan as documented. SUBJECTIVE: Patient remained at his baseline OBJECTIVE: Vital Signs Temperature 98 F 09/26/19 06:00 Pulse Rate 78 09/26/19 06:00 Respiratory Rate 18 09/26/19 06:00 Blood Pressure 135/66 09/26/19 06:00 O2 Sat by Pulse Oximetry (%) 96 09/25/19 21:00 General: Female, comfortable, not in distress HEENT; mucous membranes moist, no anemia, no jaundice, PERRLA, no nystagmus Neck: No JVD, supple, no bruit, thyroid palpably normal, normal carotid pulsations. Chest: Nontender, clear to auscultation bilaterally/bilateral wheezing/ bilateral basal rales. CVS: S1-S2 regular/irregular no murmur/gallop/rub Abdomen: Nondistended, soft, bowel sounds present. Extremities: Right hip nonhealing wound with drain ,no edema., No cough tenderness, pulses present MANAGEMENT SCIENTIST: AO X3 , no gross motor sensory deficit CBC, BMP 09/26/19 07:53 09/26/19 07:53 Active Medications Amino Acids (Prosource No Carb Liquid Pkt) 30 ml PO DAILY [facility] Last Admin: 09/26/19 09:37 Dose: Not Given Baclofen (Lioresal -) 10 mg PO BID [facility] Last Admin: 09/26/19 09:36 Dose: 10 mg Carvedilol (Coreg -) 12.5 mg PO BID [facility] Last Admin: 09/26/19 09:36 Dose: 12.5 mg Docusate Sodium (Colace -) 100 mg PO BID [facility] Last Admin: 09/26/19 09:36 Dose: 100 mg Gabapentin (Neurontin -) 400 mg PO TID [facility] Last Admin: 09/26/19 06:47 Dose: 400 mg Hydromorphone HCl (Dilaudid -) 2 mg PO Q4H PRN PRN Reason: PAIN LEVEL 1-5 Last Admin: 09/26/19 06:45 Dose: 2 mg Insulin Aspart (Novolog Vial Sliding Scale -) 1 vial SQ ACHS [facility]; Protocol Last Admin: 09/26/19 07:58 Dose: Not Given Leflunomide (Arava -) 10 mg PO DAILY [facility] Last Admin: 09/26/19 09:37 Dose: 10 mg Rivaroxaban (Xarelto) 20 mg PO DAILY@1800 [facility] Last Admin: 09/25/19 18:14 Dose: Not Given Torsemide 40 mg/ Torsemide 10 (mg) 50 mg PO DAILY [facility] Last Admin: 09/26/19 09:38 Dose: 50 mg ASSESSMENT AND PLAN:74 F h/o multiple back surgeries, last 07/2019, admitted for refractory R hip pain shooting down R leg, underwent diagnostic/therapeutic joint tap. As per Ortho note patient is scheduled for imaging guided joint aspiration [] Problem List - Problems (1) Infected prosthesis of right hip Assessment/Plan: Minimal discharge will follow-up with orthopedics for plan of care recommended imaging guided aspiration. Code(s): T84.51XA - INFECT/INFLM REACTION DUE TO INTERNAL RIGHT HIP PROSTH, INIT (2) (HFpEF) heart failure with preserved ejection fraction Assessment/Plan: At present compensated continue current management Code(s): I50.30 - UNSPECIFIED DIASTOLIC (CONGESTIVE) HEART FAILURE (3) HTN (hypertension), benign Assessment/Plan: Well-controlled continue current medication Code(s): I10 - ESSENTIAL (PRIMARY) HYPERTENSION (4) Paroxysmal atrial fibrillation Assessment/Plan: On anticoagulation rate control Code(s): I48.0 - PAROXYSMAL ATRIAL FIBRILLATION (5) Rheumatoid arthritis Assessment/Plan: Continue current manage Code(s): M06.9 - RHEUMATOID ARTHRITIS, UNSPECIFIED (6) Type 2 diabetes mellitus Assessment/Plan: Optimize glycemic control Code(s): E11.9 - TYPE 2 DIABETES MELLITUS WITHOUT COMPLICATIONS Qualifiers: Diabetes mellitus correction insulin use: without correction use Diabetes mellitus complication status: without complication Qualified Code(s): E11.9 - Type 2 diabetes mellitus without complications
--- NOTE | 2019-09-26 11:42 | PN ---
Progress Note (short form) - Note Progress Note: s: no chest pain, palps, dizziness. Current Medications Amino Acids (Prosource No Carb Liquid Pkt) 30 ml PO DAILY [facility] Last Admin: 09/26/19 09:37 Dose: Not Given Baclofen (Lioresal -) 10 mg PO BID [facility] Last Admin: 09/26/19 09:36 Dose: 10 mg Carvedilol (Coreg -) 12.5 mg PO BID [facility] Last Admin: 09/26/19 09:36 Dose: 12.5 mg Docusate Sodium (Colace -) 100 mg PO BID [facility] Last Admin: 09/26/19 09:36 Dose: 100 mg Gabapentin (Neurontin -) 400 mg PO TID [facility] Last Admin: 09/26/19 06:47 Dose: 400 mg Hydromorphone HCl (Dilaudid -) 2 mg PO Q4H PRN PRN Reason: PAIN LEVEL 1-5 Last Admin: 09/26/19 11:37 Dose: 2 mg Insulin Aspart (Novolog Vial Sliding Scale -) 1 vial SQ [facility]; Protocol Last Admin: 09/26/19 07:58 Dose: Not Given Leflunomide (Arava -) 10 mg PO DAILY [facility] Last Admin: 09/26/19 09:37 Dose: 10 mg Rivaroxaban (Xarelto) 20 mg PO DAILY@1800 [facility] Last Admin: 09/25/19 18:14 Dose: Not Given Torsemide 40 mg/ Torsemide 10 (mg) 50 mg PO DAILY [facility] Last Admin: 09/26/19 09:38 Dose: 50 mg Vital Signs Period Temp Pulse Resp BP Sys/Marcelo Pulse Ox Last 24 Hr 97.9 F-98.5 F 68-86 18-18 113-137/51-66 96 Constitutional: Yes: No Distress, Calm Cardiovascular: Yes: Regular Rate and Rhythm Respiratory: Yes: CTA Bilaterally Gastrointestinal: Yes: Soft, Abdomen, Obese Edema: Yes Edema: trace Neurological: Yes: Alert, Oriented no jaundice, diaphoresis not agitated Assessment/Plan IMP: Acute on chronic diastolic CHF: mild exacerbation History of combined systolic/diastolic CHF Paroxysmal atrial fibrillation Chronic hypertension History of DVTs/PE w/p IVC filter NICHOLE REC: 1. cont torsemide 2. Daily weights, lytes 3. Continue Coreg and Xarelto (for PAF and hx DVT) 4. cont holding Lisinopril (soft BPs and elevated K), plan to resume as outpatient 5. plan for hip injection with ortho today
[2019-09-26] MEDS ORDERED: BUPIVACAINE HCL/PF 0.25% (2.5MG/ML) 10 ML VIAL ONE (15:47)
[2019-09-26] MEDS ORDERED: BUPIVACAINE LIPOSOME/PF (EXPAREL) 266 MG/20 ML VIAL ONE (15:48)
[2019-09-26] MEDS ORDERED: MIDAZOLAM HCL 2 MG/2 ML SINGLE DOSE VIAL ONE ×2 (16:01→16:41)
[2019-09-26] MEDS ORDERED: PROPOFOL 20 ML ONE (16:01)
[2019-09-26] MEDS ORDERED: oxyCODONE HCL 5 MG TABLET PO PRN (16:37)
--- NOTE | 2019-09-26 19:02 | OP ---
DATE OF OPERATION: DATE OF DICTATION: 09/26/2019 SURGEON: Sreekanth Borjas MD. INJECTION MOLD TOOLING TECHNICIAN: Luis Borjas MD. PREOPERATIVE DIAGNOSIS: Possible shoulder of prosthesis hardware trochanteric bursitis right hip. POSTOPERATIVE DIAGNOSIS: Possible shoulder of prosthesis hardware trochanteric bursitis right hip. OPERATION: Aspiration, installation of Marcaine with Exparel around the peritrochanteric shoulder of the prosthesis (it must be noted the trochanteric is deficient). ANESTHESIA: Conscious sedation. OPERATION DETAILS: In the supine position, timeout was called. Imaging identification is brought into the room. An 80-gauge needle was placed and brought to the shoulder of the prosthesis. This enabled a very clear accurate execution of the injecting of the Marcaine local anesthesia around the shoulder of the prosthesis. 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 The hip was examined carefully under this anesthesia using image intensification. There was . The Exparel was injected onto the shoulder, anterior to the shoulder, as well as posterior to the shoulder right at the tip of the prosthesis. Patient was extricated from operating room. The results of this injection will be reevaluated within the next 2-3 hours. MD JOE Buenrostro/[id number]
[2019-09-26] MEDS: SENNOSIDES 8.6MG TABLET (FP) PO SCH (22:41)
[2019-09-27] MEDS: HYDROmorphone HCL 2 MG TABLET PO PRN ×4 (00:35→20:23)
[2019-09-27] MEDS: GABAPENTIN 400 MG CAPSULE PO SCH ×3 (06:00→23:10)
[2019-09-27] MEDS ORDERED: INSULIN (NOVOLOG) ASPART 100 UNITS/ML 10ML VIAL ONE (06:52)
[2019-09-27] MEDS: INSULIN SLIDING SCALE (NOVOLOG) 1 VIAL SQ SCH ×4 (06:58→23:10)
--- NOTE | 2019-09-27 07:42 | PN ---
Physical Exam: SUBJECTIVE: Patient seen and examined, denies any fever or chills, still with pain in right hip contact IR to evaluate to remove the drainage if below 20 cc in 24 hr right hip pain improved , see by pain management and change her pain medication regimen S/P hip injection imaging guided by Dr Borjas yesterday add senna and dulocolax for constipation OBJECTIVE: Vital Signs Period Temp Pulse Resp BP Sys/Marcelo Pulse Ox Last 24 Hr 97.4 F-99.5 F 70-84 10-20 107-154/39-79 94-100 Head: NC/AT Neck: supple , MMM Lungs: CTA B/l Abdomen: obese, soft NT, NT , positive BS All 4 q , abdominal surgical scar Heart: RRR B/L knee surgical scar right hip draining seracenous fluids , tender to palpation and limited rom no focal deficit , sensation intact , move all ext walk with PT with walker Laboratory Results - last 24 hr 09/26/19 09/26/19 09/26/19 07:53 07:53 11:44 WBC 5.9 RBC 3.43 L Hgb 10.0 L Hct 30.3 L MCV 88.5 MCH 29.1 MCHC 32.9 RDW 16.7 H Plt Count 270 MPV 7.6 Absolute Neuts (auto) 3.2 Neutrophils % 53.8 Lymphocytes % 24.7 Monocytes % 13.9 H Eosinophils % 6.3 H Basophils % 1.3 Nucleated RBC % 0 Sodium 138 Potassium 4.0 Chloride 104 Carbon Dioxide 28 Anion Gap 5 L BUN 27.7 H Creatinine 0.8 Est GFR (CKD-EPI)AfAm 84.77 Est GFR (CKD-EPI)NonAf 73.14 POC Glucometer 222 Random Glucose 179 H Calcium 8.7 Total Bilirubin 0.4 AST 11 L ALT 12 L Alkaline Phosphatase 128 H Total Protein 6.6 Albumin 2.6 L 09/26/19 09/26/19 09/27/19 17:51 22:44 05:59 WBC RBC Hgb Hct MCV MCH MCHC RDW Plt Count MPV Absolute Neuts (auto) Neutrophils % Lymphocytes % Monocytes % Eosinophils % Basophils % Nucleated RBC % Sodium Potassium Chloride Carbon Dioxide Anion Gap BUN Creatinine Est GFR (CKD-EPI)AfAm Est GFR (CKD-EPI)NonAf POC Glucometer 172 174 178 Random Glucose Calcium Total Bilirubin AST ALT Alkaline Phosphatase Total Protein Albumin Active Medications Generic Name Dose Route Start Last Admin Trade Name Freq PRN Reason Stop Dose Admin Amino Acids 30 ml 09/12/19 10:00 09/26/19 09:37 Prosource No Carb Liquid Pkt PO Not Given DAILY LISA Baclofen 10 mg 09/12/19 14:57 09/26/19 22:40 Lioresal - PO 10 mg BID LISA Administration Carvedilol 12.5 mg 09/10/19 22:00 09/26/19 22:40 Coreg - PO 12.5 mg BID LISA Administration Docusate Sodium 100 mg 09/19/19 22:00 09/26/19 22:40 Colace - PO 100 mg BID LISA Administration Fentanyl 25 mcg 09/26/19 16:37 Sublimaze Injection - IVPUSH Q5M PRN PAIN-PACU ORDER X 4 DOSES ONLY Gabapentin 400 mg 09/25/19 22:00 09/27/19 06:00 Neurontin - PO 400 mg TID LISA Administration Hydromorphone HCl 2 mg 09/25/19 14:37 09/27/19 06:01 Dilaudid - PO 2 mg Q4H PRN Administration PAIN LEVEL 1-5 Insulin Aspart 1 vial 09/10/19 22:00 09/27/19 06:58 Novolog Vial Sliding Scale - SQ 1 unit ACHS LISA Administration Protocol Leflunomide 10 mg 09/11/19 10:00 09/26/19 09:37 Arava - PO 10 mg DAILY LISA Administration Oxycodone HCl 5 mg 09/26/19 16:37 Roxicodone - PO 09/27/19 16:36 Q4H PRN PAIN LEVEL 1-5 Rivaroxaban 20 mg 09/14/19 18:00 09/25/19 18:14 Xarelto PO Not Given DAILY@1800 LISA Senna 2 tab 09/26/19 22:00 09/26/19 22:41 Senna - PO 2 tab HS LISA Administration Torsemide 40 mg/ Torsemide 10 50 mg 09/22/19 10:00 09/26/19 09:38 mg PO 50 mg DAILY LISA Administration CBC, BMP 09/27/19 07:45 09/27/19 07:45 ASSESSMENT/PLAN: 74 F h/o multiple back surgeries, last 07/2019, admitted for refractory R hip pain shooting down R leg, underwent diagnostic/therapeutic joint tap. Will await ortho recommendations. #R Hip/tibial pain #Lumbar stenosis with radiculopathy S/P hip injection 09/26 imaging guided * s/p L4, L5, S1 laminectomies, facetectomies, and foraminotomies; L3-S1 posterolateral arthrodesis, repair of incidental durotomy 07/16/19 * s/p pigtail drainage of posterior lumbar spine seroma * Still having right buttock/thigh pain * cont to drain * spoken with dr Borjas today who recommend to remove the drainage if it s less than 20 cc , he think the pain is due to fractioon of soft tissue with the hard gutiérrez * cont PT * gabapentin 400 tid , baclofen, * cont. xarelto * bowel regimen colace 100 BID * FU Dr. Borjas recommendations :PLANFor review ? revision stem ie minimal shoulder design with debridement of bursa. May require additional soft tissue reconstruction. * seen by pain mangement recommend D/C Oxicontin and Roxicodone Start Dilaudid 2 mg PO q4 PRN Toradol 30 mg IM BID PRN Neurontin 400 mg PO TID #h/o DVT/PE * Cont. Xarelto 20mg daily * /TEDs * has IVC filter #chronic systolic and idastolic Heart failure * not in acute exacerbation, in fact relatively volume depleted * cont Torsemide, hold lisinopril due to Hyper K * PO hydration # Non ischemic cardiomyopathy #HTN * cont. BP meds as tolerated , carvedilol 12.5 bid * hold lisinopril 5 due to Hyper K , resume as out pt #Insomnia * restart Zolpidem #Hypoalbuminemia * 2/2 poor intake, malnourishment * prosource * Dietary consult #T2DM * ISS * BGM * diabetic diet #Afib on AC * rate controlled * cont xarelto 20 mg po daily # RA cont Arva # Anemia likely due to chronic disease , monitor H/H daily # Obesity with BMI 36.7 , educated about life style changes and diet modification # DVT prophylaxis on xarelto restart , spoken with ortho no need for GI proph # Hyperkalemia, resolved hold lokelma , hold lisinopril # Dispo: M/S will benift from [facility] upon dc but she is refusing will go home with VNS discussed with ortho as no intervention is needed possible dc in am sebastian with 75 cc Visit type - Emergency Visit Emergency Visit: Yes ED Registration Date: 09/07/19 Care time: The patient presented to the Emergency Department on the above date and was hospitalized for further evaluation of their emergent condition. - New Patient This patient is new to me today: No - Critical Care Critical Care patient: No - Discharge Referral Referred to [facility] Med [facility] No ATTENDING PHYSICIAN STATEMENT I saw and evaluated the patient. I reviewed the resident's note and discussed the case with the resident. I agree with the resident's findings and plan as documented. SUBJECTIVE: OBJECTIVE: ASSESSMENT AND PLAN:
[2019-09-27 08:27] LABS: EOS % 4.6 % (0-4.5); HEMATOCRIT 30.5 % (32.4-45.2); HEMOGLOBIN 10.1 GM/dL (10.7-15.3); LYMPH % 22.8 % (8-40); MCHC 33.1 g/dl (32.0-36.0); MEAN CELL VOLUME 87.6 fl (80-96); MEAN PLT VOLUME 7.9 fl (7.5-11.1); NEUT % 57.6 % (42.8-82.8); PLATELET COUNT 264 K/MM3 (134-434); RBC 3.49 M/mm3 (3.60-5.2); RDW 16.3 % (11.6-15.6); WHITE BLOOD COUNT 6.6 K/mm3 (4.0-10.0)
[2019-09-27 08:51] LABS: ALBUMIN 2.6 g/dl (3.4-5.0); BILIRUBIN,TOTAL 0.4 mg/dL (0.2-1); CALCIUM 8.6 mg/dL (8.5-10.1); CREATININE 0.9 mg/dL (0.55-1.3); TOT PROT 6.4 g/dl (6.4-8.2)
--- NOTE | 2019-09-27 09:46 | PN ---
Teaching Attending Note Name of Resident: Sb Garcia ATTENDING PHYSICIAN STATEMENT I saw and evaluated the patient. I reviewed the resident's note and discussed the case with the resident. I agree with the resident's findings and plan as documented. SUBJECTIVE: OBJECTIVE: Vital Signs Temperature 99.2 F 09/27/19 05:00 Pulse Rate 84 09/27/19 05:00 Respiratory Rate 18 09/27/19 05:00 Blood Pressure 107/58 L 09/27/19 05:00 O2 Sat by Pulse Oximetry (%) 96 09/26/19 21:00 General: Female, comfortable, not in distress HEENT; mucous membranes moist, no anemia, no jaundice, PERRLA, no nystagmus Neck: No JVD, supple, no bruit, thyroid palpably normal, normal carotid pulsations. Chest: Nontender, clear to auscultation bilaterally/bilateral wheezing/ bilateral basal rales. CVS: S1-S2 regular/irregular no murmur/gallop/rub Abdomen: Nondistended, soft, bowel sounds present. Extremities: Right hip nonhealing wound with drain ,no edema., No cough tenderness, pulses present STOPPER SETTER: AO X3 , no gross motor sensory deficit CBC, BMP 09/27/19 07:45 09/27/19 07:45 ASSESSMENT AND PLAN:74 F h/o multiple back surgeries, last 07/2019, admitted for refractory R hip pain shooting down R leg, underwent diagnostic/therapeutic joint tap. As per Ortho note patient underwent imaging guided joint aspiration he still having serosanguineous discharge from wound wound. Plan: Is discussed with orthopedic if patient can be discharged home/subacute rehab as currently not taking any intravenous medication. Problem List - Problems (1) Infected prosthesis of right hip Code(s): T84.51XA - INFECT/INFLM REACTION DUE TO INTERNAL RIGHT HIP PROSTH, INIT (2) (HFpEF) heart failure with preserved ejection fraction Code(s): I50.30 - UNSPECIFIED DIASTOLIC (CONGESTIVE) HEART FAILURE (3) HTN (hypertension), benign Code(s): I10 - ESSENTIAL (PRIMARY) HYPERTENSION (4) Paroxysmal atrial fibrillation Code(s): I48.0 - PAROXYSMAL ATRIAL FIBRILLATION (5) Rheumatoid arthritis Code(s): M06.9 - RHEUMATOID ARTHRITIS, UNSPECIFIED (6) Type 2 diabetes mellitus Code(s): E11.9 - TYPE 2 DIABETES MELLITUS WITHOUT COMPLICATIONS Qualifiers: Diabetes mellitus half-way insulin use: without oysterman use Diabetes mellitus complication status: without complication Qualified Code(s): E11.9 - Type 2 diabetes mellitus without complications
[2019-09-27] MEDS: BACLOFEN 10 MG TABLET (FP) PO SCH ×2 (11:06→23:08)
[2019-09-27] MEDS: DOCUSATE SODIUM 100 MG CAPSULE (FP) PO SCH ×2 (11:08→23:09)
[2019-09-27] MEDS: TORSEMIDE 40 MG, TORSEMIDE 10 MG PO SCH (11:08)
[2019-09-27] MEDS: CARVEDILOL 12.5 MG TABLET (FP) PO SCH ×2 (11:09→23:08)
[2019-09-27] MEDS: AMINO ACIDS/PROTEIN HYDROLYS 30 ML LIQUID.PKT PO SCH (11:14)
[2019-09-27] MEDS: LEFLUNOMIDE 10 MG TABLET PO SCH (11:14)
--- NOTE | 2019-09-27 15:08 | PN ---
Progress Note (short form) - Note Progress Note: s: no chest pain, palps, dizziness. Current Medications Amino Acids (Prosource No Carb Liquid Pkt) 30 ml PO DAILY [facility] Last Admin: 09/26/19 09:37 Dose: Not Given Baclofen (Lioresal -) 10 mg PO BID [facility] Last Admin: 09/26/19 09:36 Dose: 10 mg Carvedilol (Coreg -) 12.5 mg PO BID [facility] Last Admin: 09/26/19 09:36 Dose: 12.5 mg Docusate Sodium (Colace -) 100 mg PO BID [facility] Last Admin: 09/26/19 09:36 Dose: 100 mg Gabapentin (Neurontin -) 400 mg PO TID [facility] Last Admin: 09/26/19 06:47 Dose: 400 mg Hydromorphone HCl (Dilaudid -) 2 mg PO Q4H PRN PRN Reason: PAIN LEVEL 1-5 Last Admin: 09/26/19 11:37 Dose: 2 mg Insulin Aspart (Novolog Vial Sliding Scale -) 1 vial SQ [facility]; Protocol Last Admin: 09/26/19 07:58 Dose: Not Given Leflunomide (Arava -) 10 mg PO DAILY [facility] Last Admin: 09/26/19 09:37 Dose: 10 mg Rivaroxaban (Xarelto) 20 mg PO DAILY@1800 [facility] Last Admin: 09/25/19 18:14 Dose: Not Given Torsemide 40 mg/ Torsemide 10 (mg) 50 mg PO DAILY [facility] Last Admin: 09/26/19 09:38 Dose: 50 mg Vital Signs Period Temp Pulse Resp BP Sys/Marcelo Pulse Ox Last 24 Hr 97.4 F-99.5 F 70-84 10-20 107-153/39-79 94-100 Constitutional: Yes: No Distress, Calm Cardiovascular: Yes: Regular Rate and Rhythm Respiratory: Yes: CTA Bilaterally Gastrointestinal: Yes: Soft, Abdomen, Obese Edema: Yes Edema: trace Neurological: Yes: Alert, Oriented no jaundice, diaphoresis not agitated Assessment/Plan IMP: Acute on chronic diastolic CHF: mild exacerbation History of combined systolic/diastolic CHF Paroxysmal atrial fibrillation Chronic hypertension History of DVTs/PE w/p IVC filter NICHOLE REC: 1. cont torsemide 2. Daily weights, lytes 3. Continue Coreg and Xarelto (for PAF and hx DVT) 4. cont holding Lisinopril (soft BPs and elevated K), plan to resume as outpatient 5. s/p hip injection with ortho
[2019-09-27] MEDS: RIVAROXABAN 20 MG TABLET PO SCH (17:41)
[2019-09-27] MEDS: SENNOSIDES 8.6MG TABLET (FP) PO SCH (23:09)
[2019-09-28] MEDS: HYDROmorphone HCL 2 MG TABLET PO PRN ×4 (00:29→21:40)
[2019-09-28] MEDS ORDERED: KETOROLAC TROMETHAMINE 30 MG/1 ML VIAL IM ONE (03:58)
[2019-09-28] MEDS: GABAPENTIN 400 MG CAPSULE PO SCH ×3 (07:08→21:41)
[2019-09-28] MEDS: INSULIN SLIDING SCALE (NOVOLOG) 1 VIAL SQ SCH ×4 (07:09→21:43)
[2019-09-28] MEDS ORDERED: PT OWN MED DRAWER 7, Y5N ONE ×3 (07:55→14:24)
[2019-09-28 08:02] LABS: EOS % 3.5 % (0-4.5); HEMATOCRIT 29.5 % (32.4-45.2); HEMOGLOBIN 9.8 GM/dL (10.7-15.3); MCH 28.8 pg (25.7-33.7); MCHC 33.3 g/dl (32.0-36.0); MEAN CELL VOLUME 86.5 fl (80-96); MEAN PLT VOLUME 7.7 fl (7.5-11.1); MONO % 13.4 % (3.8-10.2); NEUT % 62.1 % (42.8-82.8); PLATELET COUNT 247 K/MM3 (134-434); RBC 3.41 M/mm3 (3.60-5.2); RDW 16.2 % (11.6-15.6); WHITE BLOOD COUNT 6.8 K/mm3 (4.0-10.0)
[2019-09-28 08:28] LABS: ALBUMIN 2.5 g/dl (3.4-5.0); BILIRUBIN,TOTAL 0.5 mg/dL (0.2-1); BLOOD UREA NITROGEN 37.7 mg/dL (7-18); CALCIUM 8.6 mg/dL (8.5-10.1); CREATININE 1.1 mg/dL (0.55-1.3); POTASSIUM 3.6 mmol/L (3.5-5.1); TOT PROT 6.8 g/dl (6.4-8.2)
[2019-09-28] MEDS: AMINO ACIDS/PROTEIN HYDROLYS 30 ML LIQUID.PKT PO SCH ×2 (10:31→10:40)
[2019-09-28] MEDS: LEFLUNOMIDE 10 MG TABLET PO SCH (10:32)
[2019-09-28] MEDS: CARVEDILOL 12.5 MG TABLET (FP) PO SCH ×2 (10:32→21:41)
[2019-09-28] MEDS: DOCUSATE SODIUM 100 MG CAPSULE (FP) PO SCH ×2 (10:33→21:41)
[2019-09-28] MEDS: BACLOFEN 10 MG TABLET (FP) PO SCH ×2 (10:33→21:41)
[2019-09-28] MEDS: TORSEMIDE 40 MG, TORSEMIDE 10 MG PO SCH (11:56)
--- NOTE | 2019-09-28 12:28 | PN ---
Teaching Attending Note Name of Resident: Sb Garcia ATTENDING PHYSICIAN STATEMENT I saw and evaluated the patient. I reviewed the resident's note and discussed the case with the resident. I agree with the resident's findings and plan as documented. SUBJECTIVE: Patient feels comfortable after injection still having 75 cc drained from left paraspinal tube placement OBJECTIVE: Vital Signs Temperature 98.4 F 09/28/19 06:00 Pulse Rate 80 09/28/19 06:00 Respiratory Rate 18 09/28/19 06:00 Blood Pressure 134/68 09/28/19 06:00 O2 Sat by Pulse Oximetry (%) 96 09/27/19 21:00 General: Female, comfortable, not in distress HEENT; mucous membranes moist, no anemia, no jaundice, PERRLA, no nystagmus Neck: No JVD, supple, no bruit, thyroid palpably normal, normal carotid pulsations. Chest: Nontender, clear to auscultation bilaterally/bilateral wheezing/ bilateral basal rales. CVS: S1-S2 regular/irregular no murmur/gallop/rub Abdomen: Nondistended, soft, bowel sounds present. Extremities: Left paraspinal DASH drain tube, pulses positive HOUSING COORDINATOR: AO X3 , no gross motor sensory deficit CBC, BMP 09/28/19 07:33 09/28/19 07:33 ASSESSMENT AND PLAN:74 F h/o multiple back surgeries, last 07/2019, patient presented with right hip pain, imaging shows left paraspinal fluid collection underwent DASH drainage catheter placement by IR on 09/13/2019, still having drainage more than 75 cc, discussed with IR suspecting CSF leak PLAN; Work-up for the CSF leak assessment with IR, will recheck fluid Beta tranFERRIN , CSF specific antigen, and CSF glucose level subsequent work-up as per Problem List - Problems (1) Infected prosthesis of right hip Code(s): T84.51XA - INFECT/INFLM REACTION DUE TO INTERNAL RIGHT HIP PROSTH, INIT (2) (HFpEF) heart failure with preserved ejection fraction Code(s): I50.30 - UNSPECIFIED DIASTOLIC (CONGESTIVE) HEART FAILURE (3) HTN (hypertension), benign Code(s): I10 - ESSENTIAL (PRIMARY) HYPERTENSION (4) Paroxysmal atrial fibrillation Code(s): I48.0 - PAROXYSMAL ATRIAL FIBRILLATION (5) Rheumatoid arthritis Code(s): M06.9 - RHEUMATOID ARTHRITIS, UNSPECIFIED (6) Type 2 diabetes mellitus Code(s): E11.9 - TYPE 2 DIABETES MELLITUS WITHOUT COMPLICATIONS Qualifiers: Diabetes mellitus terminal worker insulin use: without long-term use Diabetes mellitus complication status: without complication Qualified Code(s): E11.9 - Type 2 diabetes mellitus without complications
--- NOTE | 2019-09-28 15:01 | PN ---
Progress Note (short form) - Note Progress Note: s: no chest pain, palps, dizziness sob Current Medications Generic Name Dose Route Start Last Admin Trade Name Freq PRN Reason Stop Dose Admin Amino Acids 30 ml 09/12/19 10:00 09/28/19 10:40 Prosource No Carb Liquid Pkt PO Not Given DAILY LISA Baclofen 10 mg 09/12/19 14:57 09/28/19 10:33 Lioresal - PO 10 mg BID LISA Administration Carvedilol 12.5 mg 09/10/19 22:00 09/28/19 10:32 Coreg - PO 12.5 mg BID LISA Administration Docusate Sodium 100 mg 09/19/19 22:00 09/28/19 10:33 Colace - PO 100 mg BID LISA Administration Fentanyl 25 mcg 09/26/19 16:37 Sublimaze Injection - IVPUSH Q5M PRN PAIN-PACU ORDER X 4 DOSES ONLY Gabapentin 400 mg 09/25/19 22:00 09/28/19 14:27 Neurontin - PO 400 mg TID LISA Administration Hydromorphone HCl 2 mg 09/25/19 14:37 09/28/19 09:02 Dilaudid - PO 2 mg Q4H PRN Administration PAIN LEVEL 1-5 Insulin Aspart 1 vial 09/10/19 22:00 09/28/19 12:01 Novolog Vial Sliding Scale - SQ 3 unit ACHS LISA Administration Protocol Leflunomide 10 mg 09/11/19 10:00 09/28/19 10:32 Arava - PO 10 mg DAILY LISA Administration Rivaroxaban 20 mg 09/14/19 18:00 09/27/19 17:41 Xarelto PO 20 mg DAILY@1800 LISA Administration Senna 2 tab 09/26/19 22:00 09/27/19 23:09 Senna - PO Not Given HS LISA Torsemide 40 mg/ Torsemide 10 50 mg 09/22/19 10:00 09/28/19 11:56 mg PO 50 mg DAILY LISA Administration Vital Signs Period Temp Pulse Resp BP Sys/Marcelo Pulse Ox Last 24 Hr 97.8 F-98.5 F 73-80 18-18 100-134/54-73 95-96 Constitutional: Yes: No Distress, Calm Cardiovascular: Yes: Regular Rate and Rhythm Respiratory: Yes: CTA Bilaterally Gastrointestinal: Yes: Soft, Abdomen, Obese Edema: Yes Edema: trace Neurological: Yes: Alert, Oriented no jaundice, diaphoresis not agitated CBC, BMP 09/28/19 07:33 09/28/19 07:33 Assessment/Plan IMP: Acute on chronic diastolic CHF: mild exacerbation History of combined systolic/diastolic CHF Paroxysmal atrial fibrillation Chronic hypertension History of DVTs/PE w/p IVC filter NICHOLE REC: 1. cont torsemide 3. Continue Coreg and Xarelto (for PAF and hx DVT) 4. cont holding Lisinopril (soft BPs and elevated K), plan to resume as outpatient 5. s/p hip injection with ortho
[2019-09-28] MEDS: RIVAROXABAN 20 MG TABLET PO SCH (17:02)
--- NOTE | 2019-09-28 17:51 | PN ---
Physical Exam: SUBJECTIVE: Patient seen and examined, denies any fever or chills, pain beter controlled christiano still high 100 cc last 24 hour IR recommend CSF analysis will re contact IR to evaluate to remove the drainage if below 20 cc in 24 hr right hip pain improved , see by pain management and change her pain medication regimen S/P hip injection imaging guided by Dr Borjas yesterday add senna and dulocolax for constipation OBJECTIVE: Vital Signs Period Temp Pulse Resp BP Sys/Marcelo Pulse Ox Last 24 Hr 97.8 F-98.6 F 71-80 18-18 100-134/54-73 95-96 Head: NC/AT Neck: supple , MMM Lungs: CTA B/l Abdomen: obese, soft NT, NT , positive BS All 4 q , abdominal surgical scar Heart: RRR B/L knee surgical scar right hip draining seracenous fluids , tender to palpation and limited rom no focal deficit , sensation intact , move all ext walk with PT with walker Laboratory Results - last 24 hr 09/27/19 09/28/19 09/28/19 23:04 07:06 07:33 WBC 6.8 RBC 3.41 L Hgb 9.8 L Hct 29.5 L MCV 86.5 MCH 28.8 MCHC 33.3 RDW 16.2 H Plt Count 247 MPV 7.7 Absolute Neuts (auto) 4.2 Neutrophils % 62.1 Lymphocytes % 20.0 Monocytes % 13.4 H Eosinophils % 3.5 Basophils % 1.0 Nucleated RBC % 0 Sodium Potassium Chloride Carbon Dioxide Anion Gap BUN Creatinine Est GFR (CKD-EPI)AfAm Est GFR (CKD-EPI)NonAf POC Glucometer 212 184 Random Glucose Calcium Total Bilirubin AST ALT Alkaline Phosphatase Total Protein Albumin 09/28/19 09/28/19 09/28/19 07:33 12:00 17:04 WBC RBC Hgb Hct MCV MCH MCHC RDW Plt Count MPV Absolute Neuts (auto) Neutrophils % Lymphocytes % Monocytes % Eosinophils % Basophils % Nucleated RBC % Sodium 137 Potassium 3.6 Chloride 103 Carbon Dioxide 28 Anion Gap 6 L BUN 37.7 H Creatinine 1.1 Est GFR (CKD-EPI)AfAm 57.68 Est GFR (CKD-EPI)NonAf 49.77 POC Glucometer 271 228 Random Glucose 213 H Calcium 8.6 Total Bilirubin 0.5 AST 9 L ALT 11 L Alkaline Phosphatase 122 H Total Protein 6.8 Albumin 2.5 L Active Medications Generic Name Dose Route Start Last Admin Trade Name Freq PRN Reason Stop Dose Admin Amino Acids 30 ml 09/12/19 10:00 09/28/19 10:40 Prosource No Carb Liquid Pkt PO Not Given DAILY LISA Baclofen 10 mg 09/12/19 14:57 09/28/19 10:33 Lioresal - PO 10 mg BID LISA Administration Carvedilol 12.5 mg 09/10/19 22:00 09/28/19 10:32 Coreg - PO 12.5 mg BID LISA Administration Docusate Sodium 100 mg 09/19/19 22:00 09/28/19 10:33 Colace - PO 100 mg BID LISA Administration Fentanyl 25 mcg 09/26/19 16:37 Sublimaze Injection - IVPUSH Q5M PRN PAIN-PACU ORDER X 4 DOSES ONLY Gabapentin 400 mg 09/25/19 22:00 09/28/19 14:27 Neurontin - PO 400 mg TID LISA Administration Hydromorphone HCl 2 mg 09/25/19 14:37 09/28/19 17:02 Dilaudid - PO 2 mg Q4H PRN Administration PAIN LEVEL 1-5 Insulin Aspart 1 vial 09/10/19 22:00 09/28/19 17:05 Novolog Vial Sliding Scale - SQ 2 unit ACHS LISA Administration Protocol Leflunomide 10 mg 09/11/19 10:00 09/28/19 10:32 Arava - PO 10 mg DAILY LISA Administration Rivaroxaban 20 mg 09/14/19 18:00 09/28/19 17:02 Xarelto PO 20 mg DAILY@1800 LISA Administration Senna 2 tab 09/26/19 22:00 09/27/19 23:09 Senna - PO Not Given HS LISA Torsemide 40 mg/ Torsemide 10 50 mg 09/22/19 10:00 09/28/19 11:56 mg PO 50 mg DAILY LISA Administration CBC, BMP 09/28/19 07:33 09/28/19 07:33 ASSESSMENT/PLAN: 74 F h/o multiple back surgeries, last 07/2019, admitted for refractory R hip pain shooting down R leg, underwent diagnostic/therapeutic joint tap. Will await ortho recommendations. #R Hip/tibial pain #Lumbar stenosis with radiculopathy S/P hip injection 2/19 imaging guided * drainage still 100 cc Q 24 hour spoken with IR likely CSG fluids will send Albumin sugar and csf cytology * s/p L4, L5, S1 laminectomies, facetectomies, and foraminotomies; L3-S1 posterolateral arthrodesis, repair of incidental durotomy 07/16/19 * s/p pigtail drainage of posterior lumbar spine seroma * Still having right buttock/thigh pain * cont to drain * spoken with dr Borjas today who recommend to remove the drainage if it s less than 20 cc , he think the pain is due to fractioon of soft tissue with the hard gutiérrez * cont PT * gabapentin 400 tid , baclofen, * cont. xarelto * bowel regimen colace 100 BID * FU Dr. Borjas recommendations :PLANFor review ? revision stem ie minimal shoulder design with debridement of bursa. May require additional soft tissue reconstruction. * seen by pain mangement recommend D/C Oxicontin and Roxicodone Start Dilaudid 2 mg PO q4 PRN Toradol 30 mg IM BID PRN Neurontin 400 mg PO TID #h/o DVT/PE * Cont. Xarelto 20mg daily * /TEDs * has IVC filter #chronic systolic and idastolic Heart failure * not in acute exacerbation, in fact relatively volume depleted * cont Torsemide, hold lisinopril due to Hyper K * PO hydration # Non ischemic cardiomyopathy #HTN * cont. BP meds as tolerated , carvedilol 12.5 bid * hold lisinopril 5 due to Hyper K , resume as out pt #Insomnia * restart Zolpidem #Hypoalbuminemia * 2/2 poor intake, malnourishment * prosource * Dietary consult #T2DM * ISS * BGM * diabetic diet #Afib on AC * rate controlled * cont xarelto 20 mg po daily # RA cont Arva # Anemia likely due to chronic disease , monitor H/H daily # Obesity with BMI 36.7 , educated about life style changes and diet modification # DVT prophylaxis on xarelto restart , spoken with ortho no need for GI proph # Hyperkalemia, resolved hold lokelma , hold lisinopril # Dispo: M/S will benift from [facility] upon dc but she is refusing will go home with VNS when cleared by ortho and IR drained with 100 cc Visit type - Emergency Visit Emergency Visit: Yes ED Registration Date: 09/07/19 Care time: The patient presented to the Emergency Department on the above date and was hospitalized for further evaluation of their emergent condition. - New Patient This patient is new to me today: No - Critical Care Critical Care patient: No ATTENDING PHYSICIAN STATEMENT I saw and evaluated the patient. I reviewed the resident's note and discussed the case with the resident. I agree with the resident's findings and plan as documented. SUBJECTIVE: OBJECTIVE: ASSESSMENT AND PLAN:
[2019-09-28] MEDS: SENNOSIDES 8.6MG TABLET (FP) PO SCH (21:41)
[2019-09-29] MEDS: HYDROmorphone HCL 2 MG TABLET PO PRN ×5 (02:41→20:15)
[2019-09-29] MEDS: GABAPENTIN 400 MG CAPSULE PO SCH ×3 (06:57→21:18)
[2019-09-29] MEDS: INSULIN SLIDING SCALE (NOVOLOG) 1 VIAL SQ SCH ×4 (07:07→21:19)
[2019-09-29 08:40] LABS: BASO % 1.3 % (0-2.0); EOS % 4.6 % (0-4.5); HEMATOCRIT 30.3 % (32.4-45.2); LYMPH % 24.6 % (8-40); MCH 28.5 pg (25.7-33.7); MEAN CELL VOLUME 86.5 fl (80-96); MEAN PLT VOLUME 7.5 fl (7.5-11.1); MONO % 12.7 % (3.8-10.2); NEUT % 56.8 % (42.8-82.8); PLATELET COUNT 261 K/MM3 (134-434); RBC 3.51 M/mm3 (3.60-5.2); RDW 16.4 % (11.6-15.6); WHITE BLOOD COUNT 7.3 K/mm3 (4.0-10.0)
[2019-09-29 09:21] LABS: ALBUMIN 2.6 g/dl (3.4-5.0); BILIRUBIN,TOTAL 0.3 mg/dL (0.2-1); BLOOD UREA NITROGEN 43.8 mg/dL (7-18); CALCIUM 8.8 mg/dL (8.5-10.1); POTASSIUM 3.5 mmol/L (3.5-5.1); TOT PROT 6.9 g/dl (6.4-8.2)
[2019-09-29] MEDS ORDERED: PT OWN MED DRAWER 7, Y5N ONE ×2 (10:14→19:37)
[2019-09-29] MEDS: DOCUSATE SODIUM 100 MG CAPSULE (FP) PO SCH ×3 (10:15→21:25)
[2019-09-29] MEDS: BACLOFEN 10 MG TABLET (FP) PO SCH ×2 (10:16→21:15)
[2019-09-29] MEDS: CARVEDILOL 12.5 MG TABLET (FP) PO SCH ×2 (10:16→21:14)
[2019-09-29] MEDS: TORSEMIDE 40 MG, TORSEMIDE 10 MG PO SCH (10:17)
[2019-09-29] MEDS: LEFLUNOMIDE 10 MG TABLET PO SCH (10:17)
[2019-09-29] MEDS: AMINO ACIDS/PROTEIN HYDROLYS 30 ML LIQUID.PKT PO SCH (10:18)
--- NOTE | 2019-09-29 10:21 | PN ---
Progress Note (short form) - Note Progress Note: s: no chest pain, palps, dizziness sob Current Medications Generic Name Dose Route Start Last Admin Trade Name Freq PRN Reason Stop Dose Admin Amino Acids 30 ml 09/12/19 10:00 09/29/19 10:18 Prosource No Carb Liquid Pkt PO 30 ml DAILY LISA Administration Baclofen 10 mg 09/12/19 14:57 09/29/19 10:16 Lioresal - PO 10 mg BID LISA Administration Carvedilol 12.5 mg 09/10/19 22:00 09/29/19 10:16 Coreg - PO 12.5 mg BID LISA Administration Docusate Sodium 100 mg 09/19/19 22:00 09/29/19 10:15 Colace - PO 100 mg BID LISA Administration Fentanyl 25 mcg 09/26/19 16:37 Sublimaze Injection - IVPUSH Q5M PRN PAIN-PACU ORDER X 4 DOSES ONLY Gabapentin 400 mg 09/25/19 22:00 09/29/19 06:57 Neurontin - PO 400 mg TID LISA Administration Hydromorphone HCl 2 mg 09/25/19 14:37 09/29/19 06:57 Dilaudid - PO 2 mg Q4H PRN Administration PAIN LEVEL 1-5 Insulin Aspart 1 vial 09/10/19 22:00 09/29/19 07:07 Novolog Vial Sliding Scale - SQ 2 unit ACHS LISA Administration Protocol Leflunomide 10 mg 09/11/19 10:00 09/29/19 10:17 Arava - PO 10 mg DAILY LISA Administration Rivaroxaban 20 mg 09/14/19 18:00 09/28/19 17:02 Xarelto PO 20 mg DAILY@1800 LISA Administration Senna 2 tab 09/26/19 22:00 09/28/19 21:41 Senna - PO 2 tab HS LISA Administration Torsemide 40 mg/ Torsemide 10 50 mg 09/22/19 10:00 09/29/19 10:17 mg PO 50 mg DAILY LISA Administration Vital Signs Period Temp Pulse Resp BP Sys/Marcelo Pulse Ox Last 24 Hr 97.7 F-98.7 F 71-98 18-20 119-156/55-80 96 Constitutional: Yes: No Distress, Calm Cardiovascular: Yes: Regular Rate and Rhythm Respiratory: Yes: CTA Bilaterally Gastrointestinal: Yes: Soft, Abdomen, Obese Edema: Yes Edema: trace Neurological: Yes: Alert, Oriented no jaundice, diaphoresis not agitated CBC, BMP 09/29/19 08:10 09/29/19 08:10 Assessment/Plan IMP: Acute on chronic diastolic CHF: mild exacerbation History of combined systolic/diastolic CHF Paroxysmal atrial fibrillation Chronic hypertension History of DVTs/PE w/p IVC filter NICHOLE REC: 1. cont torsemide 3. Continue Coreg and Xarelto (for PAF and hx DVT) 4. cont holding Lisinopril (soft BPs and elevated K), plan to resume as outpatient 5. s/p hip injection with ortho
[2019-09-29 13:06] LABS: BF WBC & OTHER NUCLEATED CELLS 14730 /mm3
--- NOTE | 2019-09-29 13:32 | PN ---
Progress Note (short form) - Note Progress Note: Pain over trochanter and iliolumbar entheses improved after the injection given in OR Wed. Thus requires a revision of femoral stem Will plan electively Pig tail in situ Still draining from epidural space lumbar spine. ? remove next week then only can she be d/c home Continue drainage Will see tomorrow
[2019-09-29 14:42] LABS: BODY FLUID MACROPHAGES 7 %; BODY FLUID MONOCYTE 2 %; BODYL FLD EOSINOPHIL 63 %
--- NOTE | 2019-09-29 16:39 | PN ---
Progress Note, Physician Chief Complaint: He still having discharge from catheter - Current Medication List Current Medications: Active Medications Amino Acids (Prosource No Carb Liquid Pkt) 30 ml PO DAILY [facility] Last Admin: 09/29/19 10:18 Dose: 30 ml Baclofen (Lioresal -) 10 mg PO BID [facility] Last Admin: 09/29/19 10:16 Dose: 10 mg Carvedilol (Coreg -) 12.5 mg PO BID [facility] Last Admin: 09/29/19 10:16 Dose: 12.5 mg Docusate Sodium (Colace -) 100 mg PO BID [facility] Last Admin: 09/29/19 10:15 Dose: 100 mg Fentanyl (Sublimaze Injection -) 25 mcg IVPUSH Q5M PRN PRN Reason: PAIN-PACU ORDER X 4 DOSES ONLY Gabapentin (Neurontin -) 400 mg PO TID [facility] Last Admin: 09/29/19 13:25 Dose: 400 mg Hydromorphone HCl (Dilaudid -) 2 mg PO Q4H PRN PRN Reason: PAIN LEVEL 1-5 Last Admin: 09/29/19 15:25 Dose: 2 mg Insulin Aspart (Novolog Vial Sliding Scale -) [address] [facility]; Protocol Last Admin: 09/29/19 11:43 Dose: 4 unit Leflunomide (Arava -) 10 mg PO DAILY [facility] Last Admin: 09/29/19 10:17 Dose: 10 mg Rivaroxaban (Xarelto) 20 mg PO DAILY@1800 [facility] Last Admin: 09/28/19 17:02 Dose: 20 mg Senna (Senna -) 2 tab PO HS [facility] Last Admin: 09/28/19 21:41 Dose: 2 tab Torsemide 40 mg/ Torsemide 10 (mg) 50 mg PO DAILY [facility] Last Admin: 09/29/19 10:17 Dose: 50 mg - Objective Vital Signs: Vital Signs Temperature 98.4 F 09/29/19 13:00 Pulse Rate 86 09/29/19 13:00 Respiratory Rate 20 09/29/19 13:00 Blood Pressure 109/69 09/29/19 13:00 O2 Sat by Pulse Oximetry (%) 98 09/29/19 15:39 General: Female, comfortable, not in distress HEENT; mucous membranes moist, no anemia, no jaundice, PERRLA, no nystagmus Neck: No JVD, supple, no bruit, thyroid palpably normal, normal carotid pulsations. Chest: Nontender, clear to auscultation bilaterally/bilateral wheezing/ bilateral basal rales. CVS: S1-S2 regular/irregular no murmur/gallop/rub Abdomen: Nondistended, soft, bowel sounds present. 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 , no gross motor sensory deficit CBC, BMP 09/29/19 08:10 09/29/19 08:10 ASSESSMENT AND PLAN:74 F h/o multiple back surgeries, last 07/2019, patient presented with right hip pain, imaging shows left paraspinal fluid collection underwent DASH drainage catheter placement by IR on 09/13/2019, still having drainage more than 75 cc, discussed with IR suspecting CSF leak PLAN; Work-up for the CSF leak assessment with IR, will recheck fluid Beta tranFERRIN , CSF specific antigen, and CSF glucose level subsequent work-up as per Labs: CBC, BMP 09/29/19 08:10 09/29/19 08:10 INR, PTT INR 1.28 (0.83-1.09) H 09/10/19 10:30 Problem List - Problems (1) Infected prosthesis of right hip Code(s): T84.51XA - INFECT/INFLM REACTION DUE TO INTERNAL RIGHT HIP PROSTH, INIT (2) (HFpEF) heart failure with preserved ejection fraction Code(s): I50.30 - UNSPECIFIED DIASTOLIC (CONGESTIVE) HEART FAILURE (3) HTN (hypertension), benign Code(s): I10 - ESSENTIAL (PRIMARY) HYPERTENSION (4) Paroxysmal atrial fibrillation Code(s): I48.0 - PAROXYSMAL ATRIAL FIBRILLATION (5) Rheumatoid arthritis Code(s): M06.9 - RHEUMATOID ARTHRITIS, UNSPECIFIED (6) Type 2 diabetes mellitus Code(s): E11.9 - TYPE 2 DIABETES MELLITUS WITHOUT COMPLICATIONS Qualifiers: Diabetes mellitus assisted insulin use: without assisted use Diabetes mellitus complication status: without complication Qualified Code(s): E11.9 - Type 2 diabetes mellitus without complications
[2019-09-29] MEDS: RIVAROXABAN 20 MG TABLET PO SCH (18:12)
[2019-09-29] MEDS: SENNOSIDES 8.6MG TABLET (FP) PO SCH ×2 (21:13→21:26)
[2019-09-30] MEDS: HYDROmorphone HCL 2 MG TABLET PO PRN ×5 (00:49→21:17)
[2019-09-30] MEDS: GABAPENTIN 400 MG CAPSULE PO SCH ×3 (05:07→21:21)
[2019-09-30] MEDS: INSULIN SLIDING SCALE (NOVOLOG) 1 VIAL SQ SCH ×4 (06:25→21:18)
--- NOTE | 2019-09-30 08:35 | PN ---
Progress Note, Physician Chief Complaint: He still having discharge from catheter - Current Medication List Current Medications: Active Medications Amino Acids (Prosource No Carb Liquid Pkt) 30 ml PO DAILY [facility] Last Admin: 09/29/19 10:18 Dose: 30 ml Baclofen (Lioresal -) 10 mg PO BID [facility] Last Admin: 09/29/19 21:15 Dose: 10 mg Carvedilol (Coreg -) 12.5 mg PO BID [facility] Last Admin: 09/29/19 21:14 Dose: 12.5 mg Docusate Sodium (Colace -) 100 mg PO BID [facility] Last Admin: 09/29/19 21:25 Dose: Not Given Fentanyl (Sublimaze Injection -) 25 mcg IVPUSH Q5M PRN PRN Reason: PAIN-PACU ORDER X 4 DOSES ONLY Gabapentin (Neurontin -) 400 mg PO TID [facility] Last Admin: 09/30/19 05:07 Dose: 400 mg Hydromorphone HCl (Dilaudid -) 2 mg PO Q4H PRN PRN Reason: PAIN LEVEL 1-5 Last Admin: 09/30/19 05:06 Dose: 2 mg Insulin Aspart (Novolog Vial Sliding Scale -) 1 vial SQ [facility]; Protocol Last Admin: 09/30/19 06:25 Dose: 1 unit Leflunomide (Arava -) 10 mg PO DAILY [facility] Last Admin: 09/29/19 10:17 Dose: 10 mg Rivaroxaban (Xarelto) 20 mg PO DAILY@1800 [facility] Last Admin: 09/29/19 18:12 Dose: 20 mg Senna (Senna -) 2 tab PO HS [facility] Last Admin: 09/29/19 21:26 Dose: Not Given Torsemide 40 mg/ Torsemide 10 (mg) 50 mg PO DAILY [facility] Last Admin: 09/29/19 10:17 Dose: 50 mg - Objective Vital Signs: Vital Signs Temperature 98.5 F 09/30/19 06:00 Pulse Rate 87 09/30/19 06:00 Respiratory Rate 20 09/30/19 06:00 Blood Pressure 136/74 09/30/19 06:00 O2 Sat by Pulse Oximetry (%) 99 09/29/19 21:00 General: Female, comfortable, not in distress HEENT; mucous membranes moist, no anemia, no jaundice, PERRLA, no nystagmus Neck: No JVD, supple, no bruit, thyroid palpably normal, normal carotid pulsations. Chest: Nontender, clear to auscultation bilaterally/bilateral wheezing/ bilateral basal rales. CVS: S1-S2 regular/irregular no murmur/gallop/rub Abdomen: Nondistended, soft, bowel sounds present. Extremities: Left paraspinal DASH drain tube, pulses positive CROP PRODUCTION ADVISOR: AO X3 , no gross motor sensory deficit Labs: CBC, BMP 09/29/19 08:10 09/29/19 08:10 INR, PTT INR 1.28 (0.83-1.09) H 09/10/19 10:30 Problem List - Problems (1) (HFpEF) heart failure with preserved ejection fraction Assessment/Plan: At present compensated continue current management Code(s): I50.30 - UNSPECIFIED DIASTOLIC (CONGESTIVE) HEART FAILURE (2) HTN (hypertension), benign Assessment/Plan: Well-controlled continue current medication Code(s): I10 - ESSENTIAL (PRIMARY) HYPERTENSION (3) Paroxysmal atrial fibrillation Assessment/Plan: On anticoagulation rate control Code(s): I48.0 - PAROXYSMAL ATRIAL FIBRILLATION (4) Rheumatoid arthritis Assessment/Plan: Continue current manage Code(s): M06.9 - RHEUMATOID ARTHRITIS, UNSPECIFIED (5) Type 2 diabetes mellitus Assessment/Plan: Optimize glycemic control Code(s): E11.9 - TYPE 2 DIABETES MELLITUS WITHOUT COMPLICATIONS Qualifiers: Diabetes mellitus terminal operator insulin use: without alf use Diabetes mellitus complication status: without complication Qualified Code(s): E11.9 - Type 2 diabetes mellitus without complications (6) Paraspinal hematoma Assessment/Plan: Left-sided catheter still significant collection more than 75 cc in 24 hours, as per IR possibility of paraspinal CSF leak, aspirated fluid by chemistries pending. Problems reviewed: Yes Code(s): T14.8XXA - OTHER INJURY OF UNSPECIFIED BODY REGION, INITIAL ENCOUNTER
--- NOTE | 2019-09-30 09:50 | PN ---
Progress Note (short form) - Note Progress Note: s: no chest pain, palps, dizziness sob Current Medications Generic Name Dose Route Start Last Admin Trade Name Freq PRN Reason Stop Dose Admin Amino Acids 30 ml 09/12/19 10:00 09/29/19 10:18 Prosource No Carb Liquid Pkt PO 30 ml DAILY [facility] Administration Baclofen 10 mg 09/12/19 14:57 09/29/19 21:15 Lioresal - PO 10 mg BID LISA Administration Carvedilol 12.5 mg 09/10/19 22:00 09/29/19 21:14 Coreg - PO 12.5 mg BID [facility] Administration Docusate Sodium 100 mg 09/19/19 22:00 09/29/19 21:25 Colace - PO Not Given BID COUNTS INCLUDE 234 BEDS AT THE [facility] Fentanyl 25 mcg 09/26/19 16:37 Sublimaze Injection - IVPUSH Q5M PRN PAIN-PACU ORDER X 4 DOSES ONLY Gabapentin 400 mg 09/25/19 22:00 09/30/19 05:07 Neurontin - PO 400 mg TID L[facility] Administration Hydromorphone HCl 2 mg 09/25/19 14:37 09/30/19 05:06 Dilaudid - PO 2 mg Q4H PRN Administration PAIN LEVEL 1-5 Insulin Aspart 1 vial 09/10/19 22:00 09/30/19 06:25 Novolog Vial Sliding Scale - SQ 1 unit ACHS L[facility] Administration Protocol Leflunomide 10 mg 09/11/19 10:00 09/29/19 10:17 Arava - PO 10 mg DAILY [facility] Administration Rivaroxaban 20 mg 09/14/19 18:00 09/29/19 18:12 Xarelto PO 20 mg DAILY@1800 L[facility] Administration Senna 2 tab 09/26/19 22:00 09/29/19 21:26 Senna - PO Not Given HS [facility] Torsemide 40 mg/ Torsemide 10 50 mg 09/22/19 10:00 09/29/19 10:17 mg PO 50 mg DAILY [facility] Administration Vital Signs Period Temp Pulse Resp BP Sys/Marcelo Pulse Ox Last 24 Hr 98.4 F-98.8 F 85-95 20-20 96-136/56-78 98-99 Constitutional: Yes: No Distress, Calm Cardiovascular: Yes: Regular Rate and Rhythm Respiratory: Yes: CTA Bilaterally Gastrointestinal: Yes: Soft, Abdomen, Obese Edema: Yes Edema: trace Neurological: Yes: Alert, Oriented no jaundice, diaphoresis not agitated CBC, BMP 09/29/19 08:10 09/29/19 08:10 Assessment/Plan IMP: Acute on chronic diastolic CHF: mild exacerbation History of combined systolic/diastolic CHF Paroxysmal atrial fibrillation Chronic hypertension History of DVTs/PE w/p IVC filter NICHOLE REC: 1. cont torsemide 3. Continue Coreg and Xarelto (for PAF and hx DVT) 4. cont holding Lisinopril (soft BPs and elevated K), plan to resume as outpatient 5. s/p hip injection with ortho cardiac hallman stable
[2019-09-30] MEDS: CARVEDILOL 12.5 MG TABLET (FP) PO SCH ×2 (10:39→21:17)
[2019-09-30] MEDS: BACLOFEN 10 MG TABLET (FP) PO SCH ×2 (10:40→21:17)
[2019-09-30] MEDS: LEFLUNOMIDE 10 MG TABLET PO SCH (10:40)
[2019-09-30] MEDS: DOCUSATE SODIUM 100 MG CAPSULE (FP) PO SCH ×2 (10:41→21:19)
[2019-09-30] MEDS: TORSEMIDE 40 MG, TORSEMIDE 10 MG PO SCH (10:41)
[2019-09-30] MEDS: AMINO ACIDS/PROTEIN HYDROLYS 30 ML LIQUID.PKT PO SCH (10:42)
[2019-09-30] MEDS: RIVAROXABAN 20 MG TABLET PO SCH (18:01)
[2019-09-30] MEDS: SENNOSIDES 8.6MG TABLET (FP) PO SCH (21:21)
[2019-10-01] MEDS: HYDROmorphone HCL 2 MG TABLET PO PRN ×4 (03:12→19:54)
[2019-10-01] MEDS: GABAPENTIN 400 MG CAPSULE PO SCH ×3 (06:29→22:59)
[2019-10-01] MEDS: INSULIN SLIDING SCALE (NOVOLOG) 1 VIAL SQ SCH ×4 (06:31→23:00)
--- NOTE | 2019-10-01 08:17 | PN ---
Physical Exam: SUBJECTIVE: Patient seen and examined at bed side apin improving , waliking with PT , to remove tube in MA by IR and then dc home with vns , denies any fever, chill, chest pain , had BM yesterday , feeling better. spoken with DR Sreekanth braden who agree with the plan OBJECTIVE: Vital Signs Period Temp Pulse Resp BP Sys/Marcelo Pulse Ox Last 24 Hr 97.5 F-98.5 F 78-88 18-20 114-154/53-92 97-97 Head: NC/AT Neck: supple , MMM Lungs: CTA B/l Abdomen: obese, soft NT, NT , positive BS All 4 q , abdominal surgical scar Heart: RRR B/L knee surgical scar right hip draining seracenous fluids , tender to palpation and limited rom no focal deficit , sensation intact , move all ext walk with PT with walker Laboratory Results - last 24 hr 09/30/19 09/30/19 09/30/19 11:44 17:52 21:15 POC Glucometer 364 278 237 10/01/19 06:28 POC Glucometer 206 Active Medications Generic Name Dose Route Start Last Admin Trade Name Freq PRN Reason Stop Dose Admin Amino Acids 30 ml 09/12/19 10:00 09/30/19 10:42 Prosource No Carb Liquid Pkt PO Not Given DAILY [facility] Baclofen 10 mg 09/12/19 14:57 09/30/19 21:17 Lioresal - PO 10 mg BID [facility] Administration Carvedilol 12.5 mg 09/10/19 22:00 09/30/19 21:17 Coreg - PO 12.5 mg BID L[facility] Administration Docusate Sodium 100 mg 09/19/19 22:00 09/30/19 21:19 Colace - PO Not Given BID [facility] Fentanyl 25 mcg 09/26/19 16:37 Sublimaze Injection - IVPUSH Q5M PRN PAIN-PACU ORDER X 4 DOSES ONLY Gabapentin 400 mg 09/25/19 22:00 10/01/19 06:29 Neurontin - PO 400 mg TID [facility] Administration Hydromorphone HCl 2 mg 09/25/19 14:37 10/01/19 06:30 Dilaudid - PO 2 mg Q4H PRN Administration PAIN LEVEL 1-5 Insulin Aspart 1 vial 09/10/19 22:00 10/01/19 06:31 Novolog Vial Sliding Scale - SQ 2 unit ACHS LISA Administration Protocol Leflunomide 10 mg 09/11/19 10:00 09/30/19 10:40 Arava - PO 10 mg DAILY [facility] Administration Rivaroxaban 20 mg 09/14/19 18:00 09/30/19 18:01 Xarelto PO 20 mg DAILY@1800 [facility] Administration Senna 2 tab 09/26/19 22:00 09/30/19 21:21 Senna - PO Not Given HS [facility] Torsemide 40 mg/ Torsemide 10 50 mg 09/22/19 10:00 09/30/19 10:41 mg PO 50 mg DAILY [facility] Administration CBC, BMP 09/29/19 08:10 09/29/19 08:10 ASSESSMENT/PLAN: 74 F h/o multiple back surgeries, last 07/2019, admitted for refractory R hip pain shooting down R leg, underwent diagnostic/therapeutic joint tap. Will await ortho recommendations. #R Hip/tibial pain #Lumbar stenosis with radiculopathy S/P hip injection 09/26 imaging guided * drainage still 100 cc Q 24 hour spoken with IR un likely CSG fluids per fluids analysisi * s/p L4, L5, S1 laminectomies, facetectomies, and foraminotomies; L3-S1 posterolateral arthrodesis, repair of incidental durotomy 07/16/19 * s/p pigtail drainage of posterior lumbar spine seroma * Still having right buttock/thigh pain * cont to drain * spoken with dr Braden today who recommend to remove the drainage if it s less than 20 cc , he think the pain is due to fractioon of soft tissue with the hard gutiérrez * cont PT * gabapentin 400 tid , baclofen, * cont. xarelto * bowel regimen colace 100 BID * FU Dr. Braden recommendations :PLANFor review ? revision stem ie minimal shoulder design with debridement of bursa. May require additional soft tissue reconstruction. * seen by pain management recommend D/C Oxicontin and Roxicodone Start Dilaudid 2 mg PO q4 PRN Toradol 30 mg IM BID PRN Neurontin 400 mg PO TID remove drainage and dc in AM #h/o DVT/PE * Cont. Xarelto 20mg daily * /TEDs * has IVC filter #chronic systolic and idastolic Heart failure * not in acute exacerbation, in fact relatively volume depleted * cont Torsemide, hold lisinopril due to Hyper K * PO hydration # Non ischemic cardiomyopathy #HTN * cont. BP meds as tolerated , carvedilol 12.5 bid * hold lisinopril 5 due to Hyper K , resume as out pt #Insomnia * restart Zolpidem #Hypoalbuminemia * 2/2 poor intake, malnourishment * prosource * Dietary consult #T2DM * ISS * BGM * diabetic diet #Afib on AC * rate controlled * cont xarelto 20 mg po daily # RA cont Arva # Anemia likely due to chronic disease , monitor H/H daily # Obesity with BMI 36.7 , educated about life style changes and diet modification # DVT prophylaxis on xarelto restart , spoken with ortho * no need for GI proph # Hyperkalemia, resolved hold lokelma , hold lisinopril # Dispo: M/S will benefit from IVONNE upon dc but she is refusing will go home with VNS possible dc in AM after drainage removed drained with 100 cc Visit type - Emergency Visit Emergency Visit: Yes ED Registration Date: 09/07/19 Care time: The patient presented to the Emergency Department on the above date and was hospitalized for further evaluation of their emergent condition. - New Patient This patient is new to me today: No - Critical Care Critical Care patient: No ATTENDING PHYSICIAN STATEMENT I saw and evaluated the patient. I reviewed the resident's note and discussed the case with the resident. I agree with the resident's findings and plan as documented. SUBJECTIVE: OBJECTIVE: ASSESSMENT AND PLAN:
[2019-10-01] MEDS ORDERED: PT OWN MED DRAWER 7, Y5N ONE (10:56)
[2019-10-01] MEDS: CARVEDILOL 12.5 MG TABLET (FP) PO SCH ×2 (10:59→22:59)
[2019-10-01] MEDS: TORSEMIDE 40 MG, TORSEMIDE 10 MG PO SCH (10:59)
[2019-10-01] MEDS: BACLOFEN 10 MG TABLET (FP) PO SCH ×2 (10:59→22:59)
[2019-10-01] MEDS: LEFLUNOMIDE 10 MG TABLET PO SCH (11:01)
[2019-10-01] MEDS: AMINO ACIDS/PROTEIN HYDROLYS 30 ML LIQUID.PKT PO SCH (11:45)
[2019-10-01] MEDS: DOCUSATE SODIUM 100 MG CAPSULE (FP) PO SCH ×2 (12:00→22:59)
[2019-10-01 13:15] LABS: BODY FLUID ALBUMIN 2.2 g/dL (Not Estab.)
--- NOTE | 2019-10-01 15:15 | PN ---
Teaching Attending Note Name of Resident: Sb Garcia ATTENDING PHYSICIAN STATEMENT I saw and evaluated the patient. I reviewed the resident's note and discussed the case with the resident. I agree with the resident's findings and plan as documented. SUBJECTIVE: No new complaint remained afebrile still having discharge from DASH drain tube OBJECTIVE: Vital Signs Temperature 97.5 F L 10/01/19 06:00 Pulse Rate 96 H 10/01/19 10:00 Respiratory Rate 18 10/01/19 10:00 Blood Pressure 118/68 10/01/19 10:00 O2 Sat by Pulse Oximetry (%) 97 10/01/19 09:00 General: Female, comfortable, not in distress HEENT; mucous membranes moist, no anemia, no jaundice, PERRLA, no nystagmus Neck: No JVD, supple, no bruit, thyroid palpably normal, normal carotid pulsations. Chest: Nontender, clear to auscultation bilaterally/bilateral wheezing/ bilateral basal rales. CVS: S1-S2 regular/irregular no murmur/gallop/rub Abdomen: Nondistended, soft, bowel sounds present. Extremities: Left paraspinal DASH drain tube, pulses positive FEEDER CATCHER: AO X3 , no gross motor sensory deficit CBC, BMP 09/29/19 08:10 09/29/19 08:10 Active Medications Amino Acids (Prosource No Carb Liquid Pkt) 30 ml PO DAILY [facility] Last Admin: 10/01/19 11:45 Dose: Not Given Baclofen (Lioresal -) 10 mg PO BID [facility] Last Admin: 10/01/19 10:59 Dose: 10 mg Carvedilol (Coreg -) 12.5 mg PO BID [facility] Last Admin: 10/01/19 10:59 Dose: 12.5 mg Docusate Sodium (Colace -) 100 mg PO BID [facility] Last Admin: 10/01/19 12:00 Dose: 100 mg Fentanyl (Sublimaze Injection -) 25 mcg IVPUSH Q5M PRN PRN Reason: PAIN-PACU ORDER X 4 DOSES ONLY Gabapentin (Neurontin -) 400 mg PO TID [facility] Last Admin: 10/01/19 13:47 Dose: 400 mg Hydromorphone HCl (Dilaudid -) 2 mg PO Q6H PRN PRN Reason: PAIN LEVEL 6-10 Last Admin: 02/24/20 13:49 Dose: 2 mg Insulin Aspart (Novolog Vial Sliding Scale -) 1 vial SQ ACHS [facility]; Protocol Last Admin: 10/01/19 11:44 Dose: 4 unit Leflunomide (Arava -) 10 mg PO DAILY [facility] Last Admin: 10/01/19 11:01 Dose: 10 mg Rivaroxaban (Xarelto) 20 mg PO DAILY@1800 [facility] Last Admin: 09/30/19 18:01 Dose: 20 mg Senna (Senna -) 2 tab PO HS [facility] Last Admin: 09/30/19 21:21 Dose: Not Given Torsemide 40 mg/ Torsemide 10 (mg) 50 mg PO DAILY [facility] Last Admin: 10/01/19 10:59 Dose: 50 mg ASSESSMENT AND PLAN:74 F h/o multiple back surgeries, last 07/2019, patient presented with right hip pain, imaging shows left paraspinal fluid collection underwent DASH drainage catheter placement by IR on 09/13/2019, still having drainage more than 50 cc, discussed with IR suspecting CSF leak PLAN: DASH drainage fluid sent for biochemistry and cytology total white blood cell count 14,000, glucose less than 2 and albumin 2.2 and elevated LDH, not consistent with CSF, also reevaluated by orthopedic surgeon, plan to remove the tube tomorrow. Problem List - Problems (1) (HFpEF) heart failure with preserved ejection fraction Assessment/Plan: At present compensated continue current management Code(s): I50.30 - UNSPECIFIED DIASTOLIC (CONGESTIVE) HEART FAILURE (2) HTN (hypertension), benign Assessment/Plan: Well-controlled continue current medication Code(s): I10 - ESSENTIAL (PRIMARY) HYPERTENSION (3) Paroxysmal atrial fibrillation Assessment/Plan: On anticoagulation rate control Code(s): I48.0 - PAROXYSMAL ATRIAL FIBRILLATION (4) Rheumatoid arthritis Assessment/Plan: Continue current manage Code(s): M06.9 - RHEUMATOID ARTHRITIS, UNSPECIFIED (5) Type 2 diabetes mellitus Assessment/Plan: Optimize glycemic control Code(s): E11.9 - TYPE 2 DIABETES MELLITUS WITHOUT COMPLICATIONS Qualifiers: Diabetes mellitus fci insulin use: without continuous churn buttermaker use Diabetes mellitus complication status: without complication Qualified Code(s): E11.9 - Type 2 diabetes mellitus without complications (6) Paraspinal hematoma Assessment/Plan: Left-sided catheter still significant collection more than >50cc cc in 24 hours , as per IR suspected possibility of paraspinal CSF leak, aspirated fluid cytology and chemistries not consistent with CSF.. Code(s): T14.8XXA - OTHER INJURY OF UNSPECIFIED BODY REGION, INITIAL ENCOUNTER
--- NOTE | 2019-10-01 15:46 | PN ---
Progress Note (short form) - Note Progress Note: s: no chest pain, palps, dizziness sob Current Medications Amino Acids (Prosource No Carb Liquid Pkt) 30 ml PO DAILY [facility] Last Admin: 10/01/19 11:45 Dose: Not Given Baclofen (Lioresal -) 10 mg PO BID [facility] Last Admin: 10/01/19 10:59 Dose: 10 mg Carvedilol (Coreg -) 12.5 mg PO BID [facility] Last Admin: 10/01/19 10:59 Dose: 12.5 mg Docusate Sodium (Colace -) 100 mg PO BID [facility] Last Admin: 10/01/19 12:00 Dose: 100 mg Fentanyl (Sublimaze Injection -) 25 mcg IVPUSH Q5M PRN PRN Reason: PAIN-PACU ORDER X 4 DOSES ONLY Gabapentin (Neurontin -) 400 mg PO TID [facility] Last Admin: 10/01/19 13:47 Dose: 400 mg Hydromorphone HCl (Dilaudid -) 2 mg PO Q6H PRN PRN Reason: PAIN LEVEL 6-10 Last Admin: 10/01/19 13:49 Dose: 2 mg Insulin Aspart (Novolog Vial Sliding Scale -) 1 vial SQ [facility]; Protocol Last Admin: 10/01/19 11:44 Dose: 4 unit Leflunomide (Arava -) 10 mg PO DAILY [facility] Last Admin: 10/01/19 11:01 Dose: 10 mg Rivaroxaban (Xarelto) 20 mg PO DAILY@1800 [facility] Last Admin: 09/30/19 18:01 Dose: 20 mg Senna (Senna -) 2 tab PO HS [facility] Last Admin: 09/30/19 21:21 Dose: Not Given Torsemide 40 mg/ Torsemide 10 (mg) 50 mg PO DAILY [facility] Last Admin: 10/01/19 10:59 Dose: 50 mg Vital Signs Period Temp Pulse Resp BP Sys/Marcelo Pulse Ox Last 24 Hr 97.5 F-98.5 F 80-96 18-20 114-154/58-92 97-97 Constitutional: Yes: No Distress, Calm Cardiovascular: Yes: Regular Rate and Rhythm Respiratory: Yes: CTA Bilaterally Gastrointestinal: Yes: Soft, Abdomen, Obese Edema: Yes Edema: trace Neurological: Yes: Alert, Oriented no jaundice, diaphoresis not agitated Assessment/Plan IMP: Acute on chronic diastolic CHF: mild exacerbation History of combined systolic/diastolic CHF Paroxysmal atrial fibrillation Chronic hypertension History of DVTs/PE w/p IVC filter NICHOLE REC: 1. cont torsemide 3. Continue Coreg and Xarelto (for PAF and hx DVT) 4. cont holding Lisinopril (soft BPs and elevated K), plan to resume as outpatient 5. s/p hip injection with ortho cardiac hallman stable
[2019-10-01] MEDS ORDERED: INSULIN (NOVOLOG) ASPART 100 UNITS/ML 10ML VIAL ONE (17:37)
[2019-10-01] MEDS: RIVAROXABAN 20 MG TABLET PO SCH (17:38)
[2019-10-01] MEDS: SENNOSIDES 8.6MG TABLET (FP) PO SCH (22:57)
[2019-10-02] MEDS ORDERED: PT OWN MED DRAWER 7, Y5N ONE ×5 (00:01→21:11)
[2019-10-02] MEDS: HYDROmorphone HCL 2 MG TABLET PO PRN ×4 (00:47→18:16)
[2019-10-02] MEDS: GABAPENTIN 400 MG CAPSULE PO SCH ×3 (06:47→22:07)
[2019-10-02] MEDS: INSULIN SLIDING SCALE (NOVOLOG) 1 VIAL SQ SCH ×4 (06:52→22:10)
[2019-10-02 09:08] LABS: BASO % 1.2 % (0-2.0); EOS % 5.7 % (0-4.5); HEMOGLOBIN 10.1 GM/dL (10.7-15.3); LYMPH % 27.9 % (8-40); MCH 28.3 pg (25.7-33.7); MCHC 32.7 g/dl (32.0-36.0); MEAN CELL VOLUME 86.6 fl (80-96); MEAN PLT VOLUME 7.9 fl (7.5-11.1); MONO % 12.6 % (3.8-10.2); NEUT % 52.6 % (42.8-82.8); PLATELET COUNT 282 K/MM3 (134-434); RBC 3.58 M/mm3 (3.60-5.2); WHITE BLOOD COUNT 6.3 K/mm3 (4.0-10.0)
[2019-10-02] MEDS: BACLOFEN 10 MG TABLET (FP) PO SCH ×2 (09:26→22:03)
[2019-10-02] MEDS: TORSEMIDE 40 MG, TORSEMIDE 10 MG PO SCH (09:27)
[2019-10-02] MEDS: DOCUSATE SODIUM 100 MG CAPSULE (FP) PO SCH ×2 (09:27→22:03)
[2019-10-02] MEDS: CARVEDILOL 12.5 MG TABLET (FP) PO SCH ×2 (09:27→22:03)
[2019-10-02] MEDS: AMINO ACIDS/PROTEIN HYDROLYS 30 ML LIQUID.PKT PO SCH (09:28)
[2019-10-02] MEDS: LEFLUNOMIDE 10 MG TABLET PO SCH (09:28)
[2019-10-02 09:34] LABS: ALBUMIN 2.6 g/dl (3.4-5.0); BILIRUBIN,TOTAL 0.2 mg/dL (0.2-1); BLOOD UREA NITROGEN 35.2 mg/dL (7-18); CALCIUM 8.8 mg/dL (8.5-10.1); CREATININE 0.9 mg/dL (0.55-1.3); POTASSIUM 4.1 mmol/L (3.5-5.1)
--- NOTE | 2019-10-02 10:05 | PN ---
Teaching Attending Note Name of Resident: Sb Garcia ATTENDING PHYSICIAN STATEMENT I saw and evaluated the patient. I reviewed the resident's note and discussed the case with the resident. I agree with the resident's findings and plan as documented. SUBJECTIVE: Patient comfortable sitting at side of bed. She has no complaints. OBJECTIVE: Vital Signs Period Temp Pulse Resp BP Sys/Marcelo Pulse Ox Last 24 Hr 97.5 F-98.9 F 73-93 18-18 119-141/50-86 95 HEART: S1S2, RRR LUNGS: Clear ABDOMEN: Obese, soft, non-tender, non-distended, normal BS EXTREMITIES: No edema Laboratory Results - last 24 hr 09/28/19 09/29/19 10/01/19 11:53 11:53 11:38 WBC RBC Hgb Hct MCV MCH MCHC RDW Plt Count MPV Absolute Neuts (auto) Neutrophils % Lymphocytes % Monocytes % Eosinophils % Basophils % Nucleated RBC % Sodium Potassium Chloride Carbon Dioxide Anion Gap BUN Creatinine Est GFR (CKD-EPI)AfAm Est GFR (CKD-EPI)NonAf POC Glucometer 330 Random Glucose Calcium Total Bilirubin AST ALT Alkaline Phosphatase Total Protein Albumin POC Fluid pH 7.1 Fluid Glucose < 2 Fluid Albumin 2.2 Body Fluid LDH Source 2540 10/01/19 10/01/19 10/02/19 17:24 22:54 06:49 WBC RBC Hgb Hct MCV MCH MCHC RDW Plt Count MPV Absolute Neuts (auto) Neutrophils % Lymphocytes % Monocytes % Eosinophils % Basophils % Nucleated RBC % Sodium Potassium Chloride Carbon Dioxide Anion Gap BUN Creatinine Est GFR (CKD-EPI)AfAm Est GFR (CKD-EPI)NonAf POC Glucometer 253 248 224 Random Glucose Calcium Total Bilirubin AST ALT Alkaline Phosphatase Total Protein Albumin POC Fluid pH Fluid Glucose Fluid Albumin Body Fluid LDH Source 10/02/19 10/02/19 07:46 07:46 WBC 6.3 RBC 3.58 L Hgb 10.1 L Hct 31.0 L MCV 86.6 MCH 28.3 MCHC 32.7 RDW 16.0 H Plt Count 282 MPV 7.9 Absolute Neuts (auto) 3.3 Neutrophils % 52.6 Lymphocytes % 27.9 Monocytes % 12.6 H Eosinophils % 5.7 H Basophils % 1.2 Nucleated RBC % 0 Sodium 134 L Potassium 4.1 Chloride 102 Carbon Dioxide 25 Anion Gap 7 L BUN 35.2 H Creatinine 0.9 Est GFR (CKD-EPI)AfAm 73.52 Est GFR (CKD-EPI)NonAf 63.43 POC Glucometer Random Glucose 232 H Calcium 8.8 Total Bilirubin 0.2 AST 11 L ALT 15 Alkaline Phosphatase 131 H Total Protein 7.0 Albumin 2.6 L POC Fluid pH Fluid Glucose Fluid Albumin Body Fluid LDH Source Current Medications Generic Name Dose Route Start Last Admin Trade Name Freq PRN Reason Stop Dose Admin Amino Acids 30 ml 09/12/19 10:00 10/02/19 09:28 Prosource No Carb Liquid Pkt PO Not Given DAILY LISA Baclofen 10 mg 09/12/19 14:57 10/02/19 09:26 Lioresal - PO 10 mg BID LISA Administration Carvedilol 12.5 mg 09/10/19 22:00 10/02/19 09:27 Coreg - PO 12.5 mg BID LISA Administration Docusate Sodium 100 mg 09/19/19 22:00 10/02/19 09:27 Colace - PO 100 mg BID LISA Administration Fentanyl 25 mcg 09/26/19 16:37 Sublimaze Injection - IVPUSH Q5M PRN PAIN-PACU ORDER X 4 DOSES ONLY Gabapentin 400 mg 09/25/19 22:00 10/02/19 06:47 Neurontin - PO 400 mg TID LISA Administration Hydromorphone HCl 2 mg 10/02/19 00:39 10/02/19 06:46 Dilaudid - PO 2 mg Q4H PRN Administration PAIN LEVEL 6-10 Insulin Aspart 1 vial 09/10/19 22:00 10/02/19 06:52 Novolog Vial Sliding Scale - SQ 2 unit ACHS LISA Administration Protocol Leflunomide 10 mg 09/11/19 10:00 10/02/19 09:28 Arava - PO 10 mg DAILY LISA Administration Rivaroxaban 20 mg 09/14/19 18:00 10/01/19 17:38 Xarelto PO 20 mg DAILY@1800 LISA Administration Senna 2 tab 09/26/19 22:00 10/01/19 22:57 Senna - PO Not Given HS LISA Torsemide 40 mg/ Torsemide 10 50 mg 09/22/19 10:00 10/02/19 09:27 mg PO 50 mg DAILY LISA Administration ASSESSMENT AND PLAN: This is a 74 year old woman with a history of HTN, chronic systolic and diastolic heart failure, non-ischemic cardiomyopathy, atrial fib, type 2 DM, RA , DVT/PE, lumbar spinal stenosis, lumbar spine surgeries who presented to the ED with right hip pain. 1. Lumbar stenosis with radiculopathy - s/p L4, L5, S1 laminectomies, facetectomies, and foraminotomies; L3-S1 posterolateral arthrodesis, repair of incidental durotomy 07/16/19 - s/p pigtail drainage of posterior lumbar spine seroma - Continue Neurontin, Baclofen - Continue PT 2. HTN - Continue lisinopril, Coreg 3. History of atrial fibrillation - Remains in sinus rhythm - Continue Coreg, Xarelto 4. Chronic systolic and diastolic heart failure - Stable - Continue Coreg, torsemide 5. Non-ischemic cardiomyopathy 6. Type 2 DM - Continue Novolog sliding scale 7. History of DVT/PE - Has IVC filter - Heme previously recommended lifetime anticoagulation - Continue Xarelto 8. Rheumatoid arthritis - Continue Arava 9. Anemia - Likely secondary to chronic illness - Hgb stable 10. Obesity with BMI 35.6 11. Disposition - Patient refusing short-term rehab - Discharge home with VNS once drain is removed
--- NOTE | 2019-10-02 12:55 | PN ---
Progress Note (short form) - Note Progress Note: s: no chest pain, palps, dizziness sob Current Medications Amino Acids (Prosource No Carb Liquid Pkt) 30 ml PO DAILY [facility] Last Admin: 10/02/19 09:28 Dose: Not Given Baclofen (Lioresal -) 10 mg PO BID [facility] Last Admin: 10/02/19 09:26 Dose: 10 mg Carvedilol (Coreg -) 12.5 mg PO BID [facility] Last Admin: 10/02/19 09:27 Dose: 12.5 mg Docusate Sodium (Colace -) 100 mg PO BID [facility] Last Admin: 10/02/19 09:27 Dose: 100 mg Fentanyl (Sublimaze Injection -) 25 mcg IVPUSH Q5M PRN PRN Reason: PAIN-PACU ORDER X 4 DOSES ONLY Gabapentin (Neurontin -) 400 mg PO TID [facility] Last Admin: 10/02/19 06:47 Dose: 400 mg Hydromorphone HCl (Dilaudid -) 2 mg PO Q4H PRN PRN Reason: PAIN LEVEL 6-10 Last Admin: 10/02/19 06:46 Dose: 2 mg Insulin Aspart (Novolog Vial Sliding Scale -) 1 vial SQ [facility]; Protocol Last Admin: 10/02/19 11:54 Dose: 5 unit Leflunomide (Arava -) 10 mg PO DAILY [facility] Last Admin: 10/02/19 09:28 Dose: 10 mg Rivaroxaban (Xarelto) 20 mg PO DAILY@1800 [facility] Last Admin: 10/01/19 17:38 Dose: 20 mg Senna (Senna -) 2 tab PO HS [facility] Last Admin: 10/01/19 22:57 Dose: Not Given Torsemide 40 mg/ Torsemide 10 (mg) 50 mg PO DAILY [facility] Last Admin: 10/02/19 09:27 Dose: 50 mg Vital Signs Period Temp Pulse Resp BP Sys/Marcelo Pulse Ox Last 24 Hr 97.5 F-98.9 F 73-93 18-18 119-141/50-86 95-97 Constitutional: Yes: No Distress, Calm Cardiovascular: Yes: Regular Rate and Rhythm Respiratory: Yes: CTA Bilaterally Gastrointestinal: Yes: Soft, Abdomen, Obese Edema: Yes Edema: trace Neurological: Yes: Alert, Oriented no jaundice, diaphoresis not agitated Assessment/Plan IMP: Acute on chronic diastolic CHF: mild exacerbation History of combined systolic/diastolic CHF Paroxysmal atrial fibrillation Chronic hypertension History of DVTs/PE w/p IVC filter NICHOLE REC: 1. cont torsemide 3. Continue Coreg and Xarelto (for PAF and hx DVT) 4. lisinopril held, (soft BPs and elevated K), plan to resume as outpatient 5. s/p hip injection with ortho cardiac hallman stable
--- NOTE | 2019-10-02 15:12 | PN ---
Physical Exam: SUBJECTIVE: Patient seen and examined at bed chandan e, no acute events over night , pain is better control , will remove drainage today and dc home with VNS OBJECTIVE: Vital Signs Period Temp Pulse Resp BP Sys/Marcelo Pulse Ox Last 24 Hr 97.7 F-98.9 F 73-93 18-18 119-141/50-86 95-97 Head: NC/AT Neck: supple , MMM Lungs: CTA B/l Abdomen: obese, soft NT, NT , positive BS All 4 q , abdominal surgical scar Heart: RRR B/L knee surgical scar right hip draining seracenous fluids , tender to palpation and limited rom no focal deficit , sensation intact , move all ext walk with PT with walker Laboratory Results - last 24 hr 09/28/19 10/01/19 10/01/19 11:53 17:24 22:54 WBC RBC Hgb Hct MCV MCH MCHC RDW Plt Count MPV Absolute Neuts (auto) Neutrophils % Lymphocytes % Monocytes % Eosinophils % Basophils % Nucleated RBC % Sodium Potassium Chloride Carbon Dioxide Anion Gap BUN Creatinine Est GFR (CKD-EPI)AfAm Est GFR (CKD-EPI)NonAf POC Glucometer 253 248 Random Glucose Calcium Total Bilirubin AST ALT Alkaline Phosphatase Total Protein Albumin POC Fluid pH 7.1 10/02/19 10/02/19 10/02/19 06:49 07:46 07:46 WBC 6.3 RBC 3.58 L Hgb 10.1 L Hct 31.0 L MCV 86.6 MCH 28.3 MCHC 32.7 RDW 16.0 H Plt Count 282 MPV 7.9 Absolute Neuts (auto) 3.3 Neutrophils % 52.6 Lymphocytes % 27.9 Monocytes % 12.6 H Eosinophils % 5.7 H Basophils % 1.2 Nucleated RBC % 0 Sodium 134 L Potassium 4.1 Chloride 102 Carbon Dioxide 25 Anion Gap 7 L BUN 35.2 H Creatinine 0.9 Est GFR (CKD-EPI)AfAm 73.52 Est GFR (CKD-EPI)NonAf 63.43 POC Glucometer 224 Random Glucose 232 H Calcium 8.8 Total Bilirubin 0.2 AST 11 L ALT 15 Alkaline Phosphatase 131 H Total Protein 7.0 Albumin 2.6 L POC Fluid pH 10/02/19 11:47 WBC RBC Hgb Hct MCV MCH MCHC RDW Plt Count MPV Absolute Neuts (auto) Neutrophils % Lymphocytes % Monocytes % Eosinophils % Basophils % Nucleated RBC % Sodium Potassium Chloride Carbon Dioxide Anion Gap BUN Creatinine Est GFR (CKD-EPI)AfAm Est GFR (CKD-EPI)NonAf POC Glucometer 353 Random Glucose Calcium Total Bilirubin AST ALT Alkaline Phosphatase Total Protein Albumin POC Fluid pH Active Medications Generic Name Dose Route Start Last Admin Trade Name Freq PRN Reason Stop Dose Admin Amino Acids 30 ml 09/12/19 10:00 10/02/19 09:28 Prosource No Carb Liquid Pkt PO Not Given DAILY LISA Baclofen 10 mg 09/12/19 14:57 10/02/19 09:26 Lioresal - PO 10 mg BID LISA Administration Carvedilol 12.5 mg 09/10/19 22:00 10/02/19 09:27 Coreg - PO 12.5 mg BID LISA Administration Docusate Sodium 100 mg 09/19/19 22:00 10/02/19 09:27 Colace - PO 100 mg BID LISA Administration Fentanyl 25 mcg 09/26/19 16:37 Sublimaze Injection - IVPUSH Q5M PRN PAIN-PACU ORDER X 4 DOSES ONLY Gabapentin 400 mg 09/25/19 22:00 10/02/19 13:47 Neurontin - PO 400 mg TID LISA Administration Hydromorphone HCl 2 mg 10/02/19 00:39 10/02/19 13:49 Dilaudid - PO 2 mg Q4H PRN Administration PAIN LEVEL 6-10 Insulin Aspart 1 vial 09/10/19 22:00 10/02/19 11:54 Novolog Vial Sliding Scale - SQ 5 unit ACHS LISA Administration Protocol Leflunomide 10 mg 09/11/19 10:00 10/02/19 09:28 Arava - PO 10 mg DAILY LISA Administration Rivaroxaban 20 mg 09/14/19 18:00 10/01/19 17:38 Xarelto PO 20 mg DAILY@1800 LISA Administration Senna 2 tab 09/26/19 22:00 10/01/19 22:57 Senna - PO Not Given HS LISA Torsemide 40 mg/ Torsemide 10 50 mg 09/22/19 10:00 10/02/19 09:27 mg PO 50 mg DAILY LISA Administration CBC, BMP 10/02/19 07:46 10/02/19 07:46 ASSESSMENT/PLAN: 74 F h/o multiple back surgeries, last 07/2019, admitted for refractory R hip pain shooting down R leg, underwent diagnostic/therapeutic joint tap. Will await ortho recommendations. #R Hip/tibial pain #Lumbar stenosis with radiculopathy S/P hip injection 09/26 imaging guided * drainage still 100 cc Q 24 hour spoken with IR un likely CSG fluids per fluids analysisi * s/p L4, L5, S1 laminectomies, facetectomies, and foraminotomies; L3-S1 posterolateral arthrodesis, repair of incidental durotomy 07/16/19 * s/p pigtail drainage of posterior lumbar spine seroma * right buttock/thigh pain improved * cont to drain will remove draine today By IR * cont PT * gabapentin 400 tid , baclofen, * cont. xarelto * bowel regimen colace 100 BID * FU Dr. Borjas recommendations :PLANFor review ? revision stem ie minimal shoulder design with debridement of bursa. May require additional soft tissue reconstruction. * seen by pain management recommend D/C Oxicontin and Roxicodone Start Dilaudid 2 mg PO q4 PRN Toradol 30 mg IM BID PRN Neurontin 400 mg PO TID remove drainage and dc in AM #h/o DVT/PE * Cont. Xarelto 20mg daily * /TEDs * has IVC filter #chronic systolic and idastolic Heart failure * not in acute exacerbation, in fact relatively volume depleted * cont Torsemide, hold lisinopril due to Hyper K * PO hydration # Non ischemic cardiomyopathy #HTN * cont. BP meds as tolerated , carvedilol 12.5 bid * hold lisinopril 5 due to Hyper K , resume as out pt #Insomnia * restart Zolpidem #Hypoalbuminemia * 2/2 poor intake, malnourishment * prosource * Dietary consult #T2DM * ISS * BGM * diabetic diet #Afib on AC * rate controlled * cont xarelto 20 mg po daily # RA cont Arva # Anemia likely due to chronic disease , monitor H/H daily # Obesity with BMI 36.7 , educated about life style changes and diet modification # DVT prophylaxis on xarelto restart , spoken with ortho * no need for GI proph # Hyperkalemia, resolved hold lokelma , hold lisinopril # Dispo: M/S will benefit from IVONNE upon dc but she is refusing will go home with VNS possible dc in AM after drainage removed drained with 130 cc Visit type - Emergency Visit Emergency Visit: Yes ED Registration Date: 09/07/19 Care time: The patient presented to the Emergency Department on the above date and was hospitalized for further evaluation of their emergent condition. - New Patient This patient is new to me today: No - Critical Care Critical Care patient: No ATTENDING PHYSICIAN STATEMENT I saw and evaluated the patient. I reviewed the resident's note and discussed the case with the resident. I agree with the resident's findings and plan as documented. SUBJECTIVE: OBJECTIVE: ASSESSMENT AND PLAN:
[2019-10-02] MEDS: RIVAROXABAN 20 MG TABLET PO SCH (18:14)
[2019-10-02] MEDS ORDERED: INSULIN (NOVOLOG) ASPART 100 UNITS/ML 10ML VIAL ONE (18:46)
[2019-10-02] MEDS: SENNOSIDES 8.6MG TABLET (FP) PO SCH (22:03)
[2019-10-03] MEDS: HYDROmorphone HCL 2 MG TABLET PO PRN ×2 (00:24→06:38)
[2019-10-03] MEDS ORDERED: PT OWN MED DRAWER 7, Y5N ONE (06:31)
[2019-10-03] MEDS: GABAPENTIN 400 MG CAPSULE PO SCH ×2 (06:38→14:18)
[2019-10-03] MEDS: INSULIN SLIDING SCALE (NOVOLOG) 1 VIAL SQ SCH ×2 (06:40→12:23)
[2019-10-03] MEDS: DOCUSATE SODIUM 100 MG CAPSULE (FP) PO SCH (10:42)
[2019-10-03] MEDS: TORSEMIDE 40 MG, TORSEMIDE 10 MG PO SCH (10:42)
[2019-10-03] MEDS: CARVEDILOL 12.5 MG TABLET (FP) PO SCH (10:42)
[2019-10-03] MEDS: BACLOFEN 10 MG TABLET (FP) PO SCH (10:42)
[2019-10-03] MEDS: LEFLUNOMIDE 10 MG TABLET PO SCH (10:43)
[2019-10-03] MEDS: AMINO ACIDS/PROTEIN HYDROLYS 30 ML LIQUID.PKT PO SCH (10:43)
--- NOTE | 2019-10-03 10:43 | PN ---
Teaching Attending Note Name of Resident: Sb Garcia ATTENDING PHYSICIAN STATEMENT I saw and evaluated the patient. I reviewed the resident's note and discussed the case with the resident. I agree with the resident's findings and plan as documented. SUBJECTIVE: OBJECTIVE: Vital Signs Period Temp Pulse Resp BP Sys/Marcelo Pulse Ox Last 24 Hr 97.8 F-98.6 F 77-88 18-18 119-153/51-86 95-95 HEART: S1S2, RRR LUNGS: Clear ABDOMEN: Obese, soft, non-tender, non-distended, normal BS EXTREMITIES: No edema Laboratory Results - last 24 hr 10/02/19 10/02/19 10/02/19 11:47 17:41 22:01 POC Glucometer 353 236 330 10/03/19 06:35 POC Glucometer 272 Current Medications Generic Name Dose Route Start Last Admin Trade Name Freq PRN Reason Stop Dose Admin Amino Acids 30 ml 09/12/19 10:00 10/02/19 09:28 Prosource No Carb Liquid Pkt PO Not Given DAILY LISA Baclofen 10 mg 09/12/19 14:57 10/02/19 22:03 Lioresal - PO 10 mg BID LISA Administration Carvedilol 12.5 mg 09/10/19 22:00 10/02/19 22:03 Coreg - PO 12.5 mg BID LISA Administration Docusate Sodium 100 mg 09/19/19 22:00 10/02/19 22:03 Colace - PO 100 mg BID LISA Administration Fentanyl 25 mcg 09/26/19 16:37 Sublimaze Injection - IVPUSH Q5M PRN PAIN-PACU ORDER X 4 DOSES ONLY Gabapentin 400 mg 09/25/19 22:00 10/03/19 06:38 Neurontin - PO 400 mg TID LISA Administration Hydromorphone HCl 2 mg 10/02/19 00:39 10/03/19 06:38 Dilaudid - PO 2 mg Q4H PRN Administration PAIN LEVEL 6-10 Insulin Aspart 1 vial 09/10/19 22:00 10/03/19 06:40 Novolog Vial Sliding Scale - SQ 3 unit ACHS LISA Administration Protocol Leflunomide 10 mg 09/11/19 10:00 10/02/19 09:28 Arava - PO 10 mg DAILY LISA Administration Rivaroxaban 20 mg 09/14/19 18:00 10/02/19 18:14 Xarelto PO 20 mg DAILY@1800 LISA Administration Senna 2 tab 09/26/19 22:00 10/02/19 22:03 Senna - PO Not Given HS LISA Torsemide 40 mg/ Torsemide 10 50 mg 09/22/19 10:00 10/02/19 09:27 mg PO 50 mg DAILY LISA Administration ASSESSMENT AND PLAN: This is a 74 year old woman with a history of HTN, chronic systolic and diastolic heart failure, non-ischemic cardiomyopathy, atrial fib, type 2 DM, RA , DVT/PE, lumbar spinal stenosis, lumbar spine surgeries who presented to the ED with right hip pain. 1. Lumbar stenosis with radiculopathy - s/p L4, L5, S1 laminectomies, facetectomies, and foraminotomies; L3-S1 posterolateral arthrodesis, repair of incidental durotomy 07/16/19 - s/p pigtail drainage of posterior lumbar spine seroma - removed yesterday - Continue Neurontin, Baclofen - Continue PT 2. HTN - Continue lisinopril, Coreg 3. History of atrial fibrillation - Remains in sinus rhythm - Continue Coreg, Xarelto 4. Chronic systolic and diastolic heart failure - Stable - Continue Coreg, torsemide 5. Non-ischemic cardiomyopathy 6. Type 2 DM - Continue Novolog sliding scale 7. History of DVT/PE - Has IVC filter - Heme previously recommended lifetime anticoagulation - Continue Xarelto 8. Rheumatoid arthritis - Continue Arava 9. Anemia - Likely secondary to chronic illness - Hgb stable 10. Morbid obesity with BMI 46.1 11. Disposition - Patient refusing short-term rehab - Ok for discharge home with VNS
--- NOTE | 2019-10-03 11:30 | DS ---
Physical Exam: SUBJECTIVE: Patient seen and examined at bed side, no acute events over night , pain is better control , drainage removed last night and dc home with VNS , hemodynamcally stable for dc OBJECTIVE: Vital Signs Period Temp Pulse Resp BP Sys/Marcelo Pulse Ox Last 24 Hr 97.8 F-98.6 F 77-88 18-18 119-153/51-86 95-95 PHYSICAL EXAM Head: NC/AT Neck: supple , MMM Lungs: CTA B/l Abdomen: obese, soft NT, NT , positive BS All 4 q , abdominal surgical scar Heart: RRR B/L knee surgical scar no focal deficit , sensation intact , move all ext walk with PT with walker LABS Laboratory Results - last 24 hr 10/02/19 10/02/19 10/02/19 11:47 17:41 22:01 POC Glucometer 353 236 330 10/03/19 06:35 POC Glucometer 272 CBC, BMP 10/02/19 07:46 10/02/19 07:46 HOSPITAL COURSE: Date of Admission:09/07/19 Date of Discharge: 10/03/19 74 F h/o multiple back surgeries, last 07/2019, admitted for refractory R hip pain shooting down R leg, underwent diagnostic/therapeutic joint tap. Will await ortho recommendations. #R Hip/tibial pain #Lumbar stenosis with radiculopathy S/P hip injection 09/26 imaging guided * drainage removed * s/p L4, L5, S1 laminectomies, facetectomies, and foraminotomies; L3-S1 posterolateral arthrodesis, repair of incidental durotomy 07/16/19 * s/p pigtail drainage of posterior lumbar spine seroma * right buttock/thigh pain improved * cont home PT * gabapentin 400 tid , baclofen, * cont. xarelto * bowel regimen colace 100 BID and senna as needed to have daily BM * seen by pain management recommend D/C Oxicontin and Roxicodone -Start Dilaudid 2 mg PO q4 PRN -Avoid NSAIDS -Neurontin 400 mg PO TID -remove drainage and dc in AM #h/o DVT/PE * Cont. 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 operator # Dispo: M/S will benefit from IVONNE upon dc but she is refusing will go home with VNS drainaged removed Minutes to complete discharge: 50 Discharge Summary Problems reviewed: Yes Reason For Visit: PARESTHESIA AND PAIN OF RIGHT EXTREMITY Current Active Problems (HFpEF) heart failure with preserved ejection fraction (Chronic) Allergy to multiple antibiotics (Chronic) Back pain (Chronic) Chronic systolic heart failure (Chronic) History of DVT (deep vein thrombosis) (Chronic) Hypertension (Chronic) Insomnia disorder (Chronic) Obstructive sleep apnea (Chronic) Paresthesia of right lower extremity (Chronic) Paroxysmal atrial fibrillation (Chronic) Rheumatoid arthritis (Chronic) Type 2 diabetes mellitus (Chronic) Condition: Guarded - Instructions Diet, Activity, Other Instructions: You presented to the hospital due to lower back pain and hip pain. Fluid was drained from your back and your symptoms improved. You will be sent home with visiting nurse. You were seen by pain management, Dr. Garcia, and you will go home with the following regimen: Stop using lyrica and percocet Increase Gabapentin to 400 mg three times daily Continue Baclofen 10 mg twice daily Start Dilaudid 2 mg every 4 hours as needed for pain for 5 days till you see Dr. Garcia Please follow with Dr. Garcia pain management in 5 days Please follow with Dr. Borjas in 2 weeks Please follow up with your hair rooting machine operator Dr. Margie Brennan. Please discuss when to resume lisinopril, which has been held because your potassium was high. You need to have repeat blood work within 1 week. Please follow up with Dr Loyd in 2 weeks. Please follow up with your primary care physician within 1 week. Please use bowel regimen Miralax 1-2 times daily and Senna 1-2 tabs at bedtime as needed to have daily bowel movement. If you develop fever, chills, chest pain, severe back or hip pain you can return to emergency room. Referrals: Mil Pastrana MD [Staff Physician] - 1 Week Nataly Florentino MD [Primary Care Provider] - 1 Week Malia Loyd MD [Staff Physician] - 1 Week Sreekanth Borjas MD [Staff Physician] - 2 Weeks - Home Medications Comprehensive Discharge Medication List: Ambulatory Orders Insulin Lispro Protamin/Lispro [Humalog Mix 75-25 Kwikpen] 22 unit SQ ACDIN 04/23 Zolpidem Tartrate [Ambien] 10 mg PO HS PRN 06/01/17 Rivaroxaban [Xarelto -] 20 mg PO DAILY 06/22/18 Leflunomide [Arava] 20 mg PO DAILY 07/26/18 Torsemide 50 mg PO DAILY 07/26/18 Baclofen 10 mg PO Q12H 07/16/19 Carvedilol [Coreg -] 12.5 mg PO BID #60 tablet 10/03/19 Docusate Sodium [Colace -] 100 mg PO BID #60 capsule 10/03/19 Gabapentin [Neurontin -] 400 mg PO TID #90 capsule 10/03/19 HYDROmorphone [Dilaudid -] 2 mg PO Q4H PRN #30 tablet MDD 6 tabs 10/03/19 Rivaroxaban [Xarelto -] 20 mg PO DAILY #30 tablet 10/03/19 Sennosides [Senna -] 2 tab PO HS #30 tablet 10/03/19 This patient is new to me today: No Emergency Visit: Yes ED Registration Date: 09/07/19 Care time: The patient presented to the Emergency Department on the above date and was hospitalized for further evaluation of their emergent condition. Critical Care patient: No - Discharge Referral Referred to [facility] No ATTENDING PHYSICIAN STATEMENT I saw and evaluated the patient. I reviewed the resident's note and discussed the case with the resident. I agree with the resident's findings and plan as documented. SUBJECTIVE: OBJECTIVE: ASSESSMENT AND PLAN:
--- NOTE | 2019-10-03 11:40 | PN ---
Progress Note (short form) - Note Progress Note: s: no chest pain, palps, dizziness sob Current Medications Amino Acids (Prosource No Carb Liquid Pkt) 30 ml PO DAILY [facility] Last Admin: 10/03/19 10:43 Dose: Not Given Baclofen (Lioresal -) 10 mg PO BID [facility] Last Admin: 10/03/19 10:42 Dose: 10 mg Carvedilol (Coreg -) 12.5 mg PO BID [facility] Last Admin: 10/03/19 10:42 Dose: 12.5 mg Docusate Sodium (Colace -) 100 mg PO BID [facility] Last Admin: 10/03/19 10:42 Dose: 100 mg Fentanyl (Sublimaze Injection -) 25 mcg IVPUSH Q5M PRN PRN Reason: PAIN-PACU ORDER X 4 DOSES ONLY Gabapentin (Neurontin -) 400 mg PO TID [facility] Last Admin: 10/03/19 06:38 Dose: 400 mg Hydromorphone HCl (Dilaudid -) 2 mg PO Q4H PRN PRN Reason: PAIN LEVEL 6-10 Last Admin: 10/03/19 06:38 Dose: 2 mg Insulin Aspart (Novolog Vial Sliding Scale -) 1 vial SQ [facility]; Protocol Last Admin: 10/03/19 06:40 Dose: 3 unit Leflunomide (Arava -) 10 mg PO DAILY [facility] Last Admin: 10/03/19 10:43 Dose: 10 mg Rivaroxaban (Xarelto) 20 mg PO DAILY@1800 [facility] Last Admin: 10/02/19 18:14 Dose: 20 mg Senna (Senna -) 2 tab PO HS [facility] Last Admin: 10/02/19 22:03 Dose: Not Given Torsemide 40 mg/ Torsemide 10 (mg) 50 mg PO DAILY [facility] Last Admin: 10/03/19 10:42 Dose: 50 mg Vital Signs Period Temp Pulse Resp BP Sys/Marcelo Pulse Ox Last 24 Hr 97.8 F-98.6 F 77-88 18-18 119-153/51-86 95-95 Constitutional: Yes: No Distress, Calm Cardiovascular: Yes: Regular Rate and Rhythm Respiratory: Yes: CTA Bilaterally Gastrointestinal: Yes: Soft, Abdomen, Obese Edema: Yes Edema: trace Neurological: Yes: Alert, Oriented no jaundice, diaphoresis not agitated Assessment/Plan IMP: Acute on chronic diastolic CHF: mild exacerbation History of combined systolic/diastolic CHF Paroxysmal atrial fibrillation Chronic hypertension History of DVTs/PE w/p IVC filter NICHOLE REC: 1. cont torsemide 3. Continue Coreg and Xarelto (for PAF and hx DVT) 4. lisinopril held, (soft BPs and elevated K), plan to resume as outpatient if labs stable, PCP follow planned in 1 week 5. s/p hip injection with ortho. would avoid NSAIDs as she is on AC stable for dc from cardiac perspective
[2019-10-03 14:05] VITALS: BP 131/51; PULSE 84; TEMP 98.1
== END 2019-10-03 16:28 | disposition home health service (06) | DRG 559 ==
LOC: JER 11:21 → JERBED 16:00 → J5S 18:23
PROVIDERS: ATTEND Internal Medicine
PROC: 0W9H30Z Drainage of Retroperitoneum with Drainage Device, Percutaneous Approach (ICD-10-PCS; principal; 2019-09-13)
PROC: 0S993ZX Drainage of Right Hip Joint, Percutaneous Approach, Diagnostic (ICD-10-PCS; 2019-09-26)
PROC: 3E033GC Introduction of Other Therapeutic Substance into Peripheral Vein, Percutaneous Approach (ICD-10-PCS; 2019-09-26)
DX: T84.51XA Infection and inflammatory reaction due to internal right hip prosthesis, initial encounter (principal); K68.19 Other retroperitoneal abscess; I50.33 Acute on chronic diastolic (congestive) heart failure; E46 Unspecified protein-calorie malnutrition; Z68.42 Body mass index [BMI] 45.0-49.9, adult; I42.8 Other cardiomyopathies; M79.661 Pain in right lower leg; I11.0 Hypertensive heart disease with heart failure; I48.0 Paroxysmal atrial fibrillation; E11.9 Type 2 diabetes mellitus without complications; G47.00 Insomnia, unspecified; E88.09 Other disorders of plasma-protein metabolism, not elsewhere classified; E66.9 Obesity, unspecified; Y83.9 Surgical procedure, unspecified as the cause of abnormal reaction of the patient, or of later complication, without mention of misadventure at the time of the procedure; G47.33 Obstructive sleep apnea (adult) (pediatric); M48.061 Spinal stenosis, lumbar region without neurogenic claudication; M54.10 Radiculopathy, site unspecified; D64.9 Anemia, unspecified; E87.5 Hyperkalemia; M06.9 Rheumatoid arthritis, unspecified; M70.71 Other bursitis of hip, right hip
CPT/HCPCS: 36415; 49406; 72131-TC; 72192-TC; 73523-TC-FY; 73590-TC-RT-FY; 73700-TC-RT; 76000-TC-FY; 76098-TC-FY; 76937; 76998-TC; 80048; 80053; 81003; 82042; 82945; 82962; 83615; 83735; 83986; 84100; 85025; 85027; 85610; 87070; 87075; 87086; 87102; 87116; 87205; 87206; 87210; 87899; 88108; 88305-TC; 93005; 93010; 94760; 97116-GP; 97162-GP; 99282-25; A4358; C1729; C1769; J0131; J0475

== ENCOUNTER 2019-12-26 13:28 | Inpatient (IN) | payer OTHER ==
[2019-12-26] MEDS ORDERED: morphine CARPU-JECT 4 MG/1 ML DISP.SYRIN IVPUSH ONE (14:06)
--- NOTE | 2019-12-26 14:22 | PDOC ---
Documentation entered by Roseann Willingham SCRIBE, acting as scribe for Nae Rodriguez MD. Nae Rodriguez MD: This documentation has been prepared by the dahliaibe, Roseann Willingham SCRIBE, under my direction and personally reviewed by me in its entirety. I confirm that the documentation accurately reflects all work, treatment, procedures, and medical decision making performed by me. Attending Attestation - Resident Resident Name: Sarah Perez - ED Attending Attestation I have performed the following: I have examined & evaluated the patient, The case was reviewed & discussed with the resident, I agree w/resident's findings & plan - HPI HPI: 12/26/19 13:40 The patient is a 74 year old female with past medical history significant for HTN, DM, CHF, Afib on AC, intractable lower back pain s/p L4-L5 laminectomy, L2- S1 seroma w/ drainage, PE/DVT (10 yrs prior; with IVC filter, on xarelto) now s/p L4, L5, S1 laminectomies who presents to the emergency department with exertional SOB x 3 days, +chronic back pain s/p recent admission 1 month ago for drainage of lumbar epidural abscess +pruritis no cp/headache, fever, chills, urinary/bowel changes.Denies abdominal pain, nausea, vomiting, cough. Denies known COVID-19 exposure. The patient was recently admitted to the hospital on 11/22-11/29 for a lumbar epidural abscess. The patient was discharged home with a PICC line with Rocephin 2mg for 4 weeks. has not showered x 1 month has been chronically on percocet. Allergies: levofloxacin, methotrexate, penicillins, doxycycline Meds: as documented in EMR Family history: noncontributory PCP: Dr. Florentino Manager Project: Dr. Pastrana. Rheumatoid: Dr. Green Neurologist: Dr. Almanzar. Ortho: Dr Borjas 12/26/19 15:27 12/26/19 17:25 12/26/19 17:26 - Physicial Exam PE: 12/26/19 14:32 Agree with the resident's HPI and PE as documented in the electronic medical record. NAD, EOMI, PERRL, MMM, nl conjunctiva, anicteric; neck supple. lungs clear, no respiratory distress, RRR, abdomen soft nontender. Back nontender. TAYLOR x4, no focal neuro deficits. No peripheral edema. normal color for ethnicity, WWP. excoriations to back and upper/lower extremities. lower lumbar midline surgical scar with sutures/zach, c/d 12/26/19 15:27 - Medical Decision Making 12/26/19 14:20 Vital Signs Temp Pulse Resp BP Pulse Ox 97.5 F L 96 H 20 145/83 100 12/26/19 13:30 12/26/19 13:30 12/26/19 13:30 12/26/19 13:30 12/26/19 13:49 vitals reviewed, wnl no sig respiratory distress DDx SOB: ACS, PE, PTX, CHF, COPD exac, pulmonary edema, pleurisy, pneumonia, viral syndrome. effusion. anemia, electrolyte/metabolic derangements. Considered but clinically doubt based on HPI and PE: Low suspicion for pulmonary embolism or dissection. EKG Atrial fibrillation 82 bpm, intermittent PVC., qtc prolongation 495ms, narrow QRS, ST and T wave segments and morphology normal. Nonspecific T wave abn ormalities, unchanged from prior already on AC labs and lytes with +elevated inflammatory markers, crp and ldh trop is negative, less likely cardiac. BNP elevated much higher than prior up to >6000 covid 19 testing pending pain control here, baldemar morphine benadryl for itch and excoriations Chest x-ray with right subclavian CVC in proper position, there is bilateral increased interstitial markings without evidence of focal infiltrates. Correlate this with pulmonary edema versus infection such as COVID-19 pneumonitis and will treat appropriately. IV Lasix 80 mg, close approximation for her torsemide which he takes daily for her CHF. cs to ortho, Dr Borjas, left message, as pt will warrant repeat drainage and wound vac placement admit for SOB workup, r/o covid 19, fluid overload/CHF, diuresis 12/26/19 17:25 12/26/19 17:27 12/26/19 17:28 Heart Score/ECG Review #1 ECG reviewed & interpreted by me at: 14:15 General ECG Interpretation: Sinus Rhythm, Normal Rate, Normal Intervals Compared to previous ECG there are: No significant change 12/26/19 15:28 EKG normal sinus rhythm 82 bpm, no interval abnormalities, narrow QRS, ST and T wave segments and morphology normal. Nonspecific T wave abnormalities single PVC Discharge - Discharge Information Problems reviewed: Yes Clinical Impression/Diagnosis: Shortness of breath, Suspected COVID-19 virus infection, Epidural abscess Condition: Stable - Admission Yes - Follow up/Referral - Patient Discharge Instructions - Post Discharge Activity
--- NOTE | 2019-12-26 14:44 | PDOC ---
History of Present Illness - General Chief Complaint: Shortness of Breath Stated Complaint: SOB & SENT IN FOR ADMISSION CHRISSIE. WOUND Time Seen by Provider: 12/26/19 13:36 History Source: Patient Exam Limitations: No Limitations - History of Present Illness Initial Comments: Pt is a 74 yo F, with PMH of DM with neuropathy, HTN, RA, HF pEF (EF 50%), anemia, Afib (on xarelto), prior DVT (with IVC filter), recent epidural abscess drainage (L2-S1 seroma drained 11/22, with PICC line placed), who is presenting with complaints of exertional SOB x3 days. Pt states the SOB is on exertion only, and denies any recent swelling in her legs or associated chest pain. Pt ambulates with her walker with assistance of an aid, and has had her dressings changed daily. Pt is scheduled to be admitted today for wound vac placement for increased drainage from the site. Pt is on rocephin 2g Qday via R PICC line. denies any fevers/chills, headache, vision changes, syncope, chest pain, cough, palpitations, nausea/vomiting, abdominal pain, urinary symptoms, diarrhea/constipation, or leg swelling. Allergies: NKDA PCP: Dr. Henning Social: Pt denies any cigarette, alcohol, or drug use. Pt denies any recent travel or sick contacts. Surgical: L4-L5 laminectomy, L2-S1 seroma with drainage 11/22, closure 11/26; b/l knee repair, b/l hip repair Family: no relevant history. 12/26/19 14:25 12/26/19 14:52 12/26/19 15:05 Past History - Travel Traveled outside of the country in the last 30 days: No Close contact w/someone who was outside of country & ill: No - Past Medical History Allergies/Adverse Reactions: Allergies Allergy/AdvReac Type Severity Reaction Status Date / Time levofloxacin [From Levaquin] Allergy Severe ANAPHYLAXIS Verified 12/26/19 13:30 methotrexate Allergy Severe Swelling Verified 12/26/19 13:30 Penicillins Allergy Mild Rash Verified 12/26/19 13:30 doxycycline Allergy Unknown Verified 12/26/19 13:30 bumetanide [From Bumex] Allergy Rash Verified 12/26/19 13:30 morphine AdvReac Mild Itching Verified 12/26/19 13:30 piperacillin sodium AdvReac Mild Itching Verified 12/26/19 13:30 [From Zosyn] tazobactam sodium AdvReac Mild Itching Verified 12/26/19 13:30 [From Zosyn] Home Medications: Ambulatory Orders Insulin Lispro Protamin/Lispro [Humalog Mix 75-25 Kwikpen] 22 unit SQ ACDIN 12/15/15 Zolpidem Tartrate [Ambien] 10 mg PO HS PRN 06/01/17 Leflunomide [Arava] 20 mg PO DAILY 07/26/18 Torsemide 50 mg PO DAILY 07/26/18 Baclofen 10 mg PO PRN 07/16/19 Rivaroxaban [Xarelto -] 20 mg PO DAILY #30 tablet 10/03/19 Carvedilol [Coreg -] 12.5 mg PO PRN 11/23/19 Gabapentin [Neurontin -] 400 mg PO DAILY 11/23/19 Anemia: No Asthma: No Cancer: No Cardiac Disorders: Yes (A- FIB) CVA: No COPD: No CHF: Yes DVT: Yes Dementia: No Diabetes: Yes (WITH NEUROPATHY) GI Disorders: No Disorders: No HTN: Yes Hypercholesterolemia: Yes Liver Disease: No Seizures: No Thyroid Disease: No - Surgical History Abdominal Surgery: Yes (GASTRIC BANDING) Appendectomy: No Cardiac Surgery: No Cholecystectomy: Yes Lung Surgery: No Neurologic Surgery: Yes (4 BACK FUSIONS) Orthopedic Surgery: Yes (R TKR 2004;R SHOULDER SX , L. KNEE SURGERY-2012, R THR W 5 MORE SURGERIES) - Immunization History Immunization Up to Date: Yes - Psycho Social/Smoking Cessation Hx Smoking Status: No Smoking History: Never smoked Have you smoked in the past 12 months: No Number of Cigarettes Smoked Daily: 0 If you are a former smoker, when did you quit?: 1967 Hx Alcohol Use: No Drug/Substance Use Hx: No Substance Use Type: None Hx Substance Use Treatment: No Respiratory Specific PMHX - Complaint Specific PMHX Hx Airway Support: No Hx Intubation: No Hx Asthma: No Hx Smoking Exposure: No Hx Vaping: No Hx Allergic Rhinitis: No Hx Exposure to Respiratory Irritants: No Hx Bronchitis: No Hx Pneumonia: No Hx Pulmonary Embolus: Yes Hx TB (Tuberculosis): No Review of Systems - Review of Systems Able to Perform ROS?: Yes Is the patient limited Frisian proficient: No Constitutional: Yes: Weight Stable. No: Chills, Diaphoresis, Fever, Loss of Appetite, Malaise, Weakness HEENTM: No: Recent change in vision, Nose Congestion, Throat Pain, Throat Swelling, Difficulty Swallowing Respiratory: Yes: Shortness of Breath, SOB with Exertion. No: Cough, Orthopnea, SOB at Rest, Wheezing, Productive cough, Hemoptysis Cardiac (ROS): No: Chest Pain, Edema, Irregular Heart Rate, Lightheadedness, Palpitations, Syncope, Chest Tightness ABD/GI: No: Constipated, Diarrhea, Nausea, Poor Appetite, Poor Fluid Intake, Vomiting, Abdominal cramping : No: Burning, Dysuria, Frequency, Flank Pain, Hematuria, Pain, Urgency Musculoskeletal: Yes: See HPI, Back Pain (since spinal procedure). No: Muscle Weakness, Neck Pain Integumentary: Yes: See HPI (drainage from surgical site, see HPI). No: Change in Color, Erythema, Rash Neurological: No: Headache, Numbness, Paresthesia, Weakness, Unsteady Gait, Dizziness Psychiatric: No: Sleep Pattern Change, Change in Appetite Endocrine: No: Increased Urine, Change in Weight Hematologic/Lymphatic: Yes: Blood Clots (DVT, IVC Filter). No: Anemia, Easy Bleeding, Easy Bruising All Other Systems: Reviewed and Negative *Physical Exam - Vital Signs Last Vital Signs Temp Pulse Resp BP Pulse Ox 97.5 F L 96 H 20 145/83 100 12/26/19 13:30 12/26/19 13:30 12/26/19 13:30 12/26/19 13:30 12/26/19 13:49 - Physical Exam Tachycardia, O2 100% on RA, pt afebrile. Pt appears uncomfortable, rolling from side to side on the bed. Obese body habitus. Pt alert and oriented x3. [employer] developer generally intact, muscular strength and sensation intact. No midline spinal tenderness, step-offs, or crepitus. +lumbar surgical scar, well-healing, no significant drainage or erythema. Bandage clean. Head normocephalic, atraumatic. Eyes PERRLA, EOMI. Oropharynx without erythema or exudates, no LAD b/l. No nasal congestion. Hearing intact. Clear heart sounds, S1/S2, no JVD, b/l pedal edema, or heart murmur. Diminished lung sounds b/l bases, no audible crackles or wheezes. Pt able to speak in full sentences. No abdominal or CVA tenderness to palpation, no rebound, no guarding. Abdomen soft, non-distended, and with normoactive bowel sounds. Diffuse well-healing excoriations on legs and upper arms. 12/26/19 15:07 ED Treatment Course - LABORATORY CBC & Chemistry Diagram: 12/26/19 14:20 12/26/19 14:20 - RADIOLOGY Radiology Studies Ordered: Category Date Time Status CHEST X-RAY PORTABLE* [RAD] Stat Radiology 12/26/19 13:38 Ordered Medical Decision Making - Medical Decision Making Pt was seen at bedside, also will be seen by attending Dr. Rodriguez. Pt presenting with complaints of exertional SOB x3 days. Pt has IVC filter and actively on AC (xarelto), not hypoxic on exam, less concern for DVT/PE. Will evaluate for ACS, pneumonia/COVID, pleural effusion, CHF exacerbation. Provided 4 mg IV morphine and 25 mg IV benadryl for improvement of pain and pruritis. Will continue to reassess pt and monitor for symptomatic improvement. ECG: Sinus with occasional PVCs, prolonged QTc (HR 82, UT 162, QTc 495). No TWIs or significant ST segment changes. No significant changes from prior ECG. 12/26/19 15:10 Chest x-ray with mildly increased infiltrates in b/l bases, with no focal consolidation noted. R PICC line with no pneumothorax. 12/26/19 15:13 CBC and CMP generally WNL. 12/26/19 16:06 Elevated inflammatory markers with increased interstitial markings, concerning for COVID, swab pending. Trop <.02, pt stable on NC Paged hospitalist team for inpatient management. Pt requires wound vac placement per ortho team, will be seen by Dr. Borjas. 12/26/19 16:22 Discharge - Discharge Information Problems reviewed: Yes Clinical Impression/Diagnosis: Shortness of breath, Suspected COVID-19 virus infection, Epidural abscess Condition: Stable - Admission Yes - Follow up/Referral Referrals: Nataly Florentino MD [Staff Physician] - - Patient Discharge Instructions - Post Discharge Activity
[2019-12-26] MEDS ORDERED: morphine SULFATE 4 MG/ML VIAL ONE (15:06)
[2019-12-26 15:13] LABS: BASO % 1.2 % (0-2.0); EOS % 3.8 % (0-4.5); HEMATOCRIT 34.1 % (32.4-45.2); HEMOGLOBIN 10.9 GM/dL (10.7-15.3); MCH 26.9 pg (25.7-33.7); MCHC 31.9 g/dl (32.0-36.0); MEAN CELL VOLUME 84.4 fl (80-96); MONO % 11.8 % (3.8-10.2); NEUT % 60.2 % (42.8-82.8); PLATELET COUNT 276 K/MM3 (134-434); RBC 4.05 M/mm3 (3.60-5.2); RDW 20.3 % (11.6-15.6); WHITE BLOOD COUNT 7.1 K/mm3 (4.0-10.0)
[2019-12-26 15:22] LABS: INR 1.34 (0.83-1.09); PROTHROMBIN TIME (PATIENT) 15.9 SEC (9.7-13.0)
[2019-12-26 15:24] LABS: ACTIVATED PTT 32.7 SECONDS (25.2-36.5)
[2019-12-26 15:42] LABS: VENOUS BASE EXCESS 1.1 mmol/L (-2-2); VENOUS PC02 50.2 mmHg (38-52); VENOUS PH 7.35 (7.31-7.41); VENOUS PO2 < 49 mmHg (28-48)
[2019-12-26 15:59] LABS: ALBUMIN 2.8 g/dl (3.4-5.0); ALK PHOS 148 U/L (45-117); ANION GAP 7 MMOL/L (8-16); BILIRUBIN,TOTAL 0.3 mg/dL (0.2-1); BLOOD UREA NITROGEN 17.9 mg/dL (7-18); CALCIUM 8.4 mg/dL (8.5-10.1); CHLORIDE 105 mmol/L (98-107); CO2 26 mmol/L (21-32); CREATININE 0.9 mg/dL (0.55-1.3); GLUCOSE,RANDOM 159 mg/dL (74-106); POTASSIUM 4.1 mmol/L (3.5-5.1); SGOT/AST 10 U/L (15-37); SGPT/ALT 9 U/L (13-61); SODIUM 138 mmol/L (136-145); TOT PROT 6.6 g/dl (6.4-8.2)
[2019-12-26 16:25] LABS: N-TERMINAL BNP 6503.5 pg/ml (5-125)
[2019-12-26] MEDS ORDERED: FUROSEMIDE 40 MG/4 ML INJECTABLE VIAL IVPUSH ONE (16:35)
[2019-12-26] MEDS ORDERED: FUROSEMIDE 40 MG/4 ML INJECTABLE VIAL ONE (16:41)
--- NOTE | 2019-12-26 18:07 | EKG ---
Test Reason : Blood Pressure : / mmHG Vent. Rate : 082 BPM Atrial Rate : 082 BPM P-R Int : 162 ms QRS Dur : 082 ms QT Int : 424 ms P-R-T Axes : 075 072 020 degrees QTc Int : 495 ms SINUS RHYTHM WITH OCCASIONAL PREMATURE VENTRICULAR COMPLEXES PROLONGED QT ABNORMAL ECG WHEN COMPARED WITH ECG OF 19-SEP-2019 09:51, QT HAS LENGTHENED Confirmed by MD Alexy, Luis ([id number]) on 12/26/2019 6:07:33 PM Referred By: Confirmed By:Luis Tracey MD
[2019-12-26] MEDS ORDERED: PROCHLORPERAZINE MALEATE 5 MG TABLET PO ONE (20:26)
[2019-12-26] MEDS: ACETAMINOPHEN 325 MG TABLET (FP) PO PRN (21:16)
[2019-12-26] MEDS: CARVEDILOL 12.5 MG TABLET (FP) PO SCH (21:17)
[2019-12-26] MEDS: BACLOFEN 10 MG TABLET (FP) PO PRN (21:19)
[2019-12-26] MEDS: ZOLPIDEM TARTRATE 5 MG TABLET PO PRN (21:19)
[2019-12-26] MEDS ORDERED: PT OWN MED DRAWER 7, Y5N ONE (21:21)
[2019-12-26] MEDS ORDERED: diazePAM 5 MG TABLET PO PRN (21:35)
[2019-12-26] MEDS: oxyCODONE HCL 5 MG TABLET PO PRN (22:07)
[2019-12-26] MEDS: INSULIN SLIDING SCALE (NOVOLOG) 1 VIAL SQ SCH (22:12)
[2019-12-27] MEDS ORDERED: MINERAL OIL/PETROLAT/WATER TOPICAL CREAM 113 GM JAR TP PRN (00:47)
[2019-12-27] MEDS: INSULIN SLIDING SCALE (NOVOLOG) 1 VIAL SQ SCH ×4 (06:15→21:38)
[2019-12-27] MEDS: oxyCODONE HCL 5 MG TABLET PO PRN (06:15)
[2019-12-27 08:49] LABS: HEMATOCRIT 31.2 % (32.4-45.2); MCH 27.1 pg (25.7-33.7); MCHC 32.2 g/dl (32.0-36.0); MEAN CELL VOLUME 84.3 fl (80-96); MEAN PLT VOLUME 7.6 fl (7.5-11.1); PLATELET COUNT 222 K/MM3 (134-434); RDW 19.8 % (11.6-15.6); WHITE BLOOD COUNT 7.2 K/mm3 (4.0-10.0)
[2019-12-27 09:16] LABS: BLOOD UREA NITROGEN 18.4 mg/dL (7-18); CALCIUM 8.1 mg/dL (8.5-10.1); CREATININE 0.9 mg/dL (0.55-1.3); POTASSIUM 4.2 mmol/L (3.5-5.1)
--- NOTE | 2019-12-27 09:34 | CON.ID ---
Consult Consult Specialty:: infectious diseases Referred by:: Reason for Consultation:: back infection,post op - History of Present Illness Chief Complaint: drainage from the back wound,foul smell History of Present Illness: 74 year old female with past medical history significant for HTN, DM, CHF, Afib on AC, intractable lower back pain s/p L4-L5 laminectomy, L2-S1 seroma w/ drainage, PE/DVT (10 yrs prior; with IVC filter, on xarelto) now s/p L4, L5, S1 laminectomies who presented to the emergency department with exertional SOB x 3 days, +chronic back pain s/p recent admission 1 month ago for drainage of lumbar epidural abscess +pruritis.patient mentions that her wound has started to drain from last couple of days and the nurse who comes to change the dressing saw pus and it was foul smelling no cp/headache, fever, chills, urinary/bowel changes.Denies abdominal pain, nausea, vomiting, cough. Denies known COVID-19 exposure. 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 Cardio/Vascular: Yes: CHF, Deep Vein Thrombosis, HTN Pulmonary: Yes: Pulmonary Embolus ...: No Rheumatology: Yes: Rheumatoid Arthritis Endocrine: Yes: Diabetes Mellitus - Past Surgical History Past Surgical History: Yes: Bariatric Surgery (gastric band), Cholecystectomy, Hysterectomy, Joint Replacement (5 right hip replacements, 1 left hip replacement, bilateral TKR, left LTK with staph infection ), Laminectomy (back surgeries-reports 5, most rcent 06/19) - Alcohol/Substance Use Hx Alcohol Use: No - Smoking History Smoking history: Former smoker Have you smoked in the past 12 months: No Aproximately how many cigarettes per day: 0 If you are a former smoker, when did you quit?: 1966 - Social History Usual Living Arrangement: With Child ADL: Independent 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 History of Recent Travel: No Home Medications - Allergies Allergies/Adverse Reactions: Allergies Allergy/AdvReac Type Severity Reaction Status Date / Time levofloxacin [From Levaquin] Allergy Severe ANAPHYLAXIS Verified 12/26/19 13:30 methotrexate Allergy Severe Swelling Verified 12/26/19 13:30 Penicillins Allergy Mild Rash Verified 12/26/19 13:30 doxycycline Allergy Unknown Verified 12/26/19 13:30 bumetanide [From Bumex] Allergy Rash Verified 12/26/19 13:30 morphine AdvReac Mild Itching Verified 12/26/19 13:30 piperacillin sodium AdvReac Mild Itching Verified 12/26/19 13:30 [From Zosyn] tazobactam sodium AdvReac Mild Itching Verified 12/26/19 13:30 [From Zosyn] - Home Medications Home Medications: Ambulatory Orders Insulin Lispro Protamin/Lispro [Humalog Mix 75-25 Kwikpen] 22 unit SQ ACDIN 12/15/15 Zolpidem Tartrate [Ambien] 10 mg PO HS PRN 06/01/17 Leflunomide [Arava] 20 mg PO DAILY 07/26/18 Torsemide 50 mg PO DAILY 07/26/18 Baclofen 10 mg PO PRN 07/16/19 Rivaroxaban [Xarelto -] 20 mg PO DAILY #30 tablet 10/03/19 Carvedilol [Coreg -] 12.5 mg PO PRN 11/23/19 Gabapentin [Neurontin -] 400 mg PO DAILY 11/23/19 Review of Systems - Review of Systems Constitutional: reports: No Symptoms Eyes: reports: No Symptoms HENT: reports: No Symptoms Neck: reports: No Symptoms Cardiovascular: reports: No Symptoms Respiratory: reports: SOB, SOB on Exertion Gastrointestinal: reports: No Symptoms Genitourinary: reports: No Symptoms Musculoskeletal: reports: Back Pain Integumentary: reports: Erythema (around the wound) Neurological: reports: No Symptoms Endocrine: reports: No Symptoms Hematology/Lymphatic: reports: No Symptoms Psychiatric: reports: No Symptoms Physical Exam Vital Signs: Vital Signs Temperature 97.9 F 12/27/19 05:00 Pulse Rate 100 H 12/27/19 05:00 Respiratory Rate 22 H 12/27/19 05:00 Blood Pressure 111/56 L 12/27/19 05:00 O2 Sat by Pulse Oximetry (%) 98 12/26/19 21:00 Constitutional: Yes: Well Nourished, Calm, Mild Distress Eyes: Yes: Conjunctiva Clear HENT: Yes: Atraumatic, Normocephalic Neck: Yes: Supple, Trachea Midline Cardiovascular: Yes: Regular Rate and Rhythm Respiratory: Yes: Poor Air Entry (at the bases) Gastrointestinal: Yes: Normal Bowel Sounds, Soft Musculoskeletal: Yes: WNL Extremities: Yes: WNL Wound/Incision: Yes: Open to air, Other (erythema around the wound noted) Neurological: Yes: Alert, Oriented Psychiatric: Yes: Alert, Oriented Labs: CBC, BMP 12/27/19 08:10 12/27/19 08:10 Imaging - Results Chest X-ray: Report Reviewed, Image Reviewed Assessment/Plan this patient with h/o of epidural abscess and multiple medical problems coming in wiht sob and suspicion of wpound infection says drainage from the wound present i am going to start her back on anceff and stop ceftriaxone await for surgical team to see the patient await for cx reports rest as per the team
[2019-12-27] MEDS ORDERED: CEFTRIAXONE 2 GM-D5W BAG 2 GM/50 ML BAG IVPB SCH (10:00)
[2019-12-27] MEDS ORDERED: CEFTRIAXONE 2 GM in DEXTROSE 5%-WATER 100 ML IVPB SCH (10:00)
[2019-12-27] MEDS ORDERED: DEXTROSE 5%-WATER - 50 ML IVPB ONE ×2 (10:08→17:16)
[2019-12-27] MEDS ORDERED: ceFAZolin SODIUM 1 GM VIAL ONE ×2 (10:08→17:15)
[2019-12-27] MEDS: CEFAZOLIN 1 GM in DEXTROSE 5%-WATER - 50 ML IVPB SCH ×2 (10:11→17:21)
[2019-12-27] MEDS: GABAPENTIN 300 MG CAPSULE PO SCH (10:11)
[2019-12-27] MEDS: CARVEDILOL 12.5 MG TABLET (FP) PO SCH ×2 (10:11→21:35)
[2019-12-27] MEDS: FUROSEMIDE 40 MG/4 ML INJECTABLE VIAL IVPUSH SCH (10:12)
[2019-12-27] MEDS ORDERED: INSULIN (NOVOLOG) ASPART 100 UNITS/ML 10ML VIAL ONE (11:22)
--- NOTE | 2019-12-27 13:35 | ECHO ---
Name: SHERI PADILLA Exam:Adult Echocardiogram Study Date: 12/27/2019 11:52 AM Age: 74 yrs Reason For Study: HEART FAILURE Height: 63 in Weight: 196 lb BSA: 1.9 m2 MMode/2D Measurements & Calculations IVSd: 1.0 cm Ao root diam: 2.5 cm LVIDd: 5.0 cm LA dimension: 4.4 cm LVIDs: 4.1 cm LVPWd: 1.0 cm EDV(Teich): 116.2 ml LVOT diam: 2.0 cm ESV(Teich): 75.2 ml LAV (MOD-bp): 92.4 ml Doppler Measurements & Calculations MV E max nito: 162.0 cm/sec Ao V2 max: 138.8 cm/sec MV dec time: 0.14 sec Ao max P.7 mmHg PEDRO(V,D): 1.4 cm2 LV V1 max P.5 mmHg MR max nito: 440.2 cm/sec LV V1 max: 60.7 cm/sec MR max P.9 mmHg TR max nito: 237.5 cm/sec PA V2 max: 101.0 cm/sec TR max P.7 mmHg PA max P.1 mmHg Med Peak E' Nito: 6.5 cm/sec PI Vmax: 120.7 cm/sec Med E/e': 24.8 Lat Peak E' Nito: 10.4 cm/sec Lat E/e': 15.5 Procedure A complete two-dimensional transthoracic echocardiogram was performed (2D, M-mode, Doppler and color flow Doppler). Left Ventricle The left ventricle is normal in size. Left ventricular systolic function is moderately reduced. Eject ion Fraction = 35-40%. There is moderate global hypokinesis of the left ventricle. Right Ventricle The right ventricle is normal in size and function. Atria The left atrium is severely dilated. Right atrial size is normal. Mitral Valve There is moderate mitral regurgitation. Tricuspid Valve There is trace tricuspid regurgitation. Right ventricular systolic pressure is normal. Aortic Valve No hemodynamically significant valvular aortic stenosis. No aortic regurgitation is present. Pulmonic Valve There is no pulmonic valvular regurgitation. Great Vessels The aortic root is normal size. Pericardium/Pleura There is no pericardial effusion. Interpretation Summary Left ventricular systolic function is moderately reduced. There is moderate global hypokinesis of the left ventricle. The right ventricle is normal in size and function. The left atrium is severely dilated. There is moderate mitral regurgitation. There is trace tricuspid regurgitation. MD Rohan Choi 12/27/2019 01:35 PM
--- NOTE | 2019-12-27 14:34 | PN ---
Teaching Attending Note Name of Resident: Erick Interiano ATTENDING PHYSICIAN STATEMENT I saw and evaluated the patient. I reviewed the resident's note and discussed the case with the resident. I agree with the resident's findings and plan as documented. SUBJECTIVE: Feeling less SOB. No cough/sputum/CP/hemoptysis. No fever/chills. Reports foul smelling discharge from spinal surgery wound. OBJECTIVE: Afebrile, Hemodynamically Stable. Last Vital Signs Temp Pulse Resp BP Pulse Ox 97.6 F 96 H 18 100/60 98 12/27/19 08:07 12/27/19 08:07 12/27/19 09:00 12/27/19 08:07 12/27/19 09:00 HEENT - Atraumatic, Normocephalic. Heart - S1, S2, RRR Lungs - good air entry, mildly reduced at bases. Abdomen - high BMI, soft, non-tender. Bowel Sounds normal. Extremities - Mild edema, no calf tenderness. MS - Dressed spinal surgical wound, appears closed with some crusted regions, no surrounding cellulitis. Laboratory Results - last 24 hr 12/26/19 12/26/19 12/26/19 14:20 14:20 14:20 WBC 7.1 RBC 4.05 Hgb 10.9 Hct 34.1 MCV 84.4 MCH 26.9 MCHC 31.9 L RDW 20.3 H Plt Count 276 MPV 8.0 Absolute Neuts (auto) 4.2 Neutrophils % 60.2 Lymphocytes % 23.0 Monocytes % 11.8 H Eosinophils % 3.8 Basophils % 1.2 Nucleated RBC % 0 PT with INR INR PTT (Actin FS) VBG pH 7.35 POC VBG pCO2 50.2 POC VBG pO2 < 49 H VBG HCO3 27.2 VBG O2 Sat (Michael) 79.1 VBG Base Excess 1.1 Sodium 138 Potassium 4.1 Chloride 105 Carbon Dioxide 26 Anion Gap 7 L BUN 17.9 Creatinine 0.9 Est GFR (CKD-EPI)AfAm 73.52 Est GFR (CKD-EPI)NonAf 63.43 POC Glucometer Random Glucose 159 H Lactic Acid Calcium 8.4 L Ferritin Total Bilirubin 0.3 AST 10 L ALT 9 L Alkaline Phosphatase 148 H LD Total Creatine Kinase 72 Troponin I < 0.02 C-Reactive Protein B-Natriuretic Peptide Total Protein 6.6 Albumin 2.8 L COVID-19 (MATA) Blood Type Antibody Screen 12/26/19 12/26/19 12/26/19 14:20 14:20 14:20 WBC RBC Hgb Hct MCV MCH MCHC RDW Plt Count MPV Absolute Neuts (auto) Neutrophils % Lymphocytes % Monocytes % Eosinophils % Basophils % Nucleated RBC % PT with INR 15.90 H INR 1.34 H PTT (Actin FS) 32.7 VBG pH POC VBG pCO2 POC VBG pO2 VBG HCO3 VBG O2 Sat (Michael) VBG Base Excess Sodium Potassium Chloride Carbon Dioxide Anion Gap BUN Creatinine Est GFR (CKD-EPI)AfAm Est GFR (CKD-EPI)NonAf POC Glucometer Random Glucose Lactic Acid 1.5 Calcium Ferritin Total Bilirubin AST ALT Alkaline Phosphatase LD Total Creatine Kinase Troponin I C-Reactive Protein B-Natriuretic Peptide Total Protein Albumin COVID-19 (MATA) Blood Type O POSITIVE Antibody Screen Negative 12/26/19 12/26/19 12/26/19 14:20 14:20 20:50 WBC RBC Hgb Hct MCV MCH MCHC RDW Plt Count MPV Absolute Neuts (auto) Neutrophils % Lymphocytes % Monocytes % Eosinophils % Basophils % Nucleated RBC % PT with INR INR PTT (Actin FS) VBG pH POC VBG pCO2 POC VBG pO2 VBG HCO3 VBG O2 Sat (Michael) VBG Base Excess Sodium Potassium Chloride Carbon Dioxide Anion Gap BUN Creatinine Est GFR (CKD-EPI)AfAm Est GFR (CKD-EPI)NonAf POC Glucometer Random Glucose Lactic Acid Calcium Ferritin 40.5 Total Bilirubin AST ALT Alkaline Phosphatase LD Total 603 H Creatine Kinase 140 Troponin I C-Reactive Protein 3.5 H B-Natriuretic Peptide 6503.5 H Total Protein Albumin COVID-19 (MATA) Not detected Blood Type Antibody Screen 12/26/19 12/26/19 12/27/19 20:50 22:10 06:14 WBC RBC Hgb Hct MCV MCH MCHC RDW Plt Count MPV Absolute Neuts (auto) Neutrophils % Lymphocytes % Monocytes % Eosinophils % Basophils % Nucleated RBC % PT with INR INR PTT (Actin FS) VBG pH POC VBG pCO2 POC VBG pO2 VBG HCO3 VBG O2 Sat (Michael) VBG Base Excess Sodium Potassium Chloride Carbon Dioxide Anion Gap BUN Creatinine Est GFR (CKD-EPI)AfAm Est GFR (CKD-EPI)NonAf POC Glucometer 163 133 Random Glucose Lactic Acid Calcium Ferritin Total Bilirubin AST ALT Alkaline Phosphatase LD Total Creatine Kinase 136 Troponin I 0.02 C-Reactive Protein B-Natriuretic Peptide Total Protein Albumin COVID-19 (MATA) Blood Type Antibody Screen 12/27/19 12/27/19 12/27/19 08:10 08:10 11:09 WBC 7.2 RBC 3.70 Hgb 10.0 L Hct 31.2 L MCV 84.3 MCH 27.1 MCHC 32.2 RDW 19.8 H Plt Count 222 MPV 7.6 Absolute Neuts (auto) Neutrophils % Lymphocytes % Monocytes % Eosinophils % Basophils % Nucleated RBC % PT with INR INR PTT (Actin FS) VBG pH POC VBG pCO2 POC VBG pO2 VBG HCO3 VBG O2 Sat (Michael) VBG Base Excess Sodium 136 Potassium 4.2 Chloride 103 Carbon Dioxide 29 Anion Gap 5 L BUN 18.4 H Creatinine 0.9 Est GFR (CKD-EPI)AfAm 73.52 Est GFR (CKD-EPI)NonAf 63.43 POC Glucometer 198 Random Glucose 156 H Lactic Acid Calcium 8.1 L Ferritin Total Bilirubin AST ALT Alkaline Phosphatase LD Total Creatine Kinase Troponin I C-Reactive Protein B-Natriuretic Peptide Total Protein Albumin COVID-19 (MATA) Blood Type Antibody Screen Current Medications Generic Name Dose Route Start Last Admin Trade Name Freq PRN Reason Stop Dose Admin Acetaminophen 650 mg 12/26/19 20:27 12/26/19 21:16 Tylenol - PO 650 mg Q6H PRN Administration PAIN LEVEL 1-5 OR FEVER Baclofen 10 mg 12/26/19 22:00 12/26/19 21:19 Lioresal - PO 10 mg TID PRN Administration MUSCLE SPASM Carvedilol 12.5 mg 12/26/19 22:00 12/27/19 10:11 Coreg - PO 12.5 mg BID LISA Administration Diazepam 10 mg 12/26/19 21:35 12/26/19 22:12 Valium - PO 10 mg Q12H PRN Administration ANXIETY Furosemide 40 mg 12/27/19 10:00 12/27/19 10:12 Lasix Injection - IVPUSH 40 mg DAILY LISA Administration Gabapentin 600 mg 12/27/19 10:00 12/27/19 10:11 Neurontin - PO 600 mg DAILY LISA Administration Cefazolin Sodium 1 gm/ 50 mls @ 100 mls/hr 12/27/19 10:00 12/27/19 10:11 Dextrose IVPB 100 mls/hr Q8H-IV LISA Administration Insulin Aspart 0 vial 12/26/19 22:00 12/27/19 11:20 Novolog Vial Sliding Scale - SQ 2 units ACHS LISA Administration Protocol Multi-Ingredient Lotion 1 applic 12/27/19 00:47 12/27/19 01:10 Eucerin (Small Jar) - TP 1 applic DAILY PRN Administration DRY SKIN Oxycodone HCl 10 mg 12/26/19 21:34 12/27/19 06:15 Roxicodone - PO 10 mg Q8H PRN Administration PAIN SCALE 6-10 Rivaroxaban 20 mg 12/27/19 18:00 Xarelto PO DAILY@1800 LISA Zolpidem Tartrate 5 mg 12/26/19 22:00 12/26/19 21:19 Ambien - PO 5 mg HS PRN Administration INSOMNIA Home Medications Medication Instructions Recorded Insulin Lispro Protamin/Lispro 22 unit SQ ACDIN 12/15/15 [Humalog Mix 75-25 Kwikpen] Zolpidem Tartrate [Ambien] 10 mg PO HS PRN 06/01/17 Leflunomide [Arava] 20 mg PO DAILY 07/26/18 Torsemide 50 mg PO DAILY 07/26/18 Baclofen 10 mg PO PRN 07/16/19 Rivaroxaban [Xarelto -] 20 mg PO DAILY #30 tablet 10/03/19 Carvedilol [Coreg -] 12.5 mg PO PRN 11/23/19 Gabapentin [Neurontin -] 400 mg PO DAILY 11/23/19 ASSESSMENT AND PLAN: 74 year old female with history of diastolic CHF, RA, DM 2, HTN, Hx DVT/PE, a fib (on Xarelto), multiple spine surgeries, s/p L4/5 laminectomy then L5/S1 seroma with recent epidural abscess drainage s/p I and D, complex wound closure and wound vac placement 11/25 - sent home on IV Rocephin via PICC 12/03 now returns with SOB for a 2-3 days. No cough/sputum/CP/hemoptysis. No fever/chills. 1. Acute Systolic CHF decompensation No hypoxia, COVID negative. Elevated BNP, improved with Lasix diuresis Echo - systolic CHF, EF 35-40%, moderate LV hypokinesis Continue Lasix diuresis. Torsemide held. Cardiology consult requested. 2. Recent Epidural Abscess s/p I and D by Spinal Surgery, discharged 12/03 on 4 week course of IV ceftriaxone via PICC Patient reporting foul smelling discharge. Afebrile, Hemodynamically Stable, no leukocytosis. Attempting to get Spinal surgeon to evaluate patient's wound before 12/31/19 Wound Care consulted - declining evaluation of spinal surgery patient ID changed Abx to Ancef while awaiting surgical evaluation 3. Paroxysmal Atrial Fibrillation - continue Coreg and Xarelto 4. Hx PE/DVT - continue Xarelto 5. DM 2 - uncontrolled, A1c 9.0. Maintain on Novolog sliding scale. 6. RA - on Leflunomide. 7. Normocytic Anemia - will send work-up including Iron/Ferritin/B12/Folate levels DVT Px - on Xarelto.
[2019-12-27] MEDS: ACETAMINOPHEN 325 MG TABLET (FP) PO PRN ×2 (15:04→20:08)
[2019-12-27] MEDS: RIVAROXABAN 20 MG TABLET PO SCH (17:21)
--- NOTE | 2019-12-27 17:38 | PN ---
Physical Exam: SUBJECTIVE: Patient seen and examined. Afebrile and asymptomatic. No overnight events. Back wound appears intact w/ no drainage noted, sutures intact. Discussed with surgery for possible wash out on tuesday. OBJECTIVE: Vital Signs Period Temp Pulse Resp BP Sys/Marcelo Pulse Ox Last 24 Hr 97.4 F-98.7 F 86-111 18-22 100-133/56-73 98-98 GENERAL: The patient is awake, alert, and fully oriented, in no acute distress. EYES: PERRL, extraocular movements intact, No ptosis. ENT: oropharynx clear without exudates, moist mucous membranes. LUNGS: Breath sounds equal, clear to auscultation bilaterally, no wheezes, no crackles HEART: Regular rate and rhythm, S1, S2 without murmur, rub or gallop. ABDOMEN: Soft, nontender, nondistended, normoactive bowel sounds, no guarding EXTREMITIES: 2+ pulses, warm, well-perfused, no edema. Back: Spinal surgical wound, sutures intact, appears closed with some crusted regions, no surrounding cellulitis, erythema. No drainage noted. SKIN: Warm, dry, normal turgor, no rashes or lesions noted Laboratory Results - last 24 hr 12/26/19 12/26/19 12/26/19 14:20 20:50 20:50 WBC RBC Hgb Hct MCV MCH MCHC RDW Plt Count MPV Sodium Potassium Chloride Carbon Dioxide Anion Gap BUN Creatinine Est GFR (CKD-EPI)AfAm Est GFR (CKD-EPI)NonAf POC Glucometer Random Glucose Calcium Creatine Kinase 140 136 Troponin I 0.02 COVID-19 (MATA) Not detected 12/26/19 12/27/19 12/27/19 22:10 06:14 08:10 WBC 7.2 RBC 3.70 Hgb 10.0 L Hct 31.2 L MCV 84.3 MCH 27.1 MCHC 32.2 RDW 19.8 H Plt Count 222 MPV 7.6 Sodium Potassium Chloride Carbon Dioxide Anion Gap BUN Creatinine Est GFR (CKD-EPI)AfAm Est GFR (CKD-EPI)NonAf POC Glucometer 163 133 Random Glucose Calcium Creatine Kinase Troponin I COVID-19 (MATA) 12/27/19 12/27/19 12/27/19 08:10 11:09 16:19 WBC RBC Hgb Hct MCV MCH MCHC RDW Plt Count MPV Sodium 136 Potassium 4.2 Chloride 103 Carbon Dioxide 29 Anion Gap 5 L BUN 18.4 H Creatinine 0.9 Est GFR (CKD-EPI)AfAm 73.52 Est GFR (CKD-EPI)NonAf 63.43 POC Glucometer 198 148 Random Glucose 156 H Calcium 8.1 L Creatine Kinase Troponin I COVID-19 (MATA) Active Medications Generic Name Dose Route Start Last Admin Trade Name Freq PRN Reason Stop Dose Admin Acetaminophen 650 mg 12/26/19 20:27 12/27/19 15:04 Tylenol - PO 650 mg Q6H PRN Administration PAIN LEVEL 1-5 OR FEVER Baclofen 10 mg 12/26/19 22:00 12/26/19 21:19 Lioresal - PO 10 mg TID PRN Administration MUSCLE SPASM Carvedilol 12.5 mg 12/26/19 22:00 12/27/19 10:11 Coreg - PO 12.5 mg BID LISA Administration Furosemide 40 mg 12/27/19 10:00 12/27/19 10:12 Lasix Injection - IVPUSH 40 mg DAILY LISA Administration Gabapentin 600 mg 12/27/19 10:00 12/27/19 10:11 Neurontin - PO 600 mg DAILY LISA Administration Cefazolin Sodium 1 gm/ 50 mls @ 100 mls/hr 12/27/19 10:00 12/27/19 10:11 Dextrose IVPB 100 mls/hr Q8H-IV LISA Administration Insulin Aspart 0 vial 12/26/19 22:00 12/27/19 16:33 Novolog Vial Sliding Scale - SQ Not Given ACHS [facility] Protocol Multi-Ingredient Lotion 1 applic 12/27/19 00:47 12/27/19 01:10 Eucerin (Small Jar) - TP 1 applic DAILY PRN Administration DRY SKIN Rivaroxaban 20 mg 12/27/19 18:00 Xarelto PO DAILY@1800 LISA Zolpidem Tartrate 5 mg 12/26/19 22:00 12/26/19 21:19 Ambien - PO 5 mg HS PRN Administration INSOMNIA ASSESSMENT/PLAN: 74 y/o F, pmh of d-CHF, RA, DM 2, HTN, Hx DVT/PE, a fib (on Xarelto), multiple spine surgeries, s/p L4/5 laminectomy then L5/S1 seroma with recent epidural abscess drainage s/p I and D, complex wound closure and wound vac placement 11/25-sent home on IV Rocephin via PICC 12/03 returns w/ shortness of breath for 3 days admitted for CHF exacerbation #Acute Sys-CHF exacerbation r/o COVID No hypoxia, COVID negative CXR: showing b/l increased interstitial markings Elevated BNP Symptomatic improvement with lasix cont lasix 40 daily, hold torsemide Echo -EF 35-40%, moderate LV hypokinesis, LA severely dilated Cardiology consult requested- will need to reassess pt's ability to tolerate anesthesia for possible wash out on tuesday #Epidural Abscess s/p I and D discharged 12/03 on 4 week course of IV ceftriaxone via PICC 3 weeks completed abx so far Discussed with Dr. Borjas/Spinal surgeon- plans for procedure for Tuesday (12/31/19) Wound Care consulted Abx switched to Ancef while awaiting surgical evaluation #Paroxysmal Atrial Fibrillation Coreg Xarelto #Hx PE/DVT Xarelto #DM uncontrolled A1c 9.0 BGM ISS #RA Leflunomide. #Normocytic Anemia Iron/Ferritin/B12/Folate levels #DVT Ppx on Xarelto FEN monitor lytes cont oxygen NRB Diabetic diet Dispo: cont xarelto, f/u iron-panel, cont lasix Visit type - Emergency Visit Emergency Visit: Yes ED Registration Date: 12/26/19 Care time: The patient presented to the Emergency Department on the above date and was hospitalized for further evaluation of their emergent condition. - New Patient This patient is new to me today: Yes Date on this admission: 12/28/19 - Critical Care Critical Care patient: No - Discharge Referral Referred to [facility] No ATTENDING PHYSICIAN STATEMENT I saw and evaluated the patient. I reviewed the resident's note and discussed the case with the resident. I agree with the resident's findings and plan as documented. SUBJECTIVE: OBJECTIVE: ASSESSMENT AND PLAN:
[2019-12-27] MEDS: BACLOFEN 10 MG TABLET (FP) PO PRN (20:08)
[2019-12-27] MEDS ORDERED: oxyCODONE HCL 5 MG TABLET PO ONE (21:11)
[2019-12-27] MEDS ORDERED: MELATONIN 5 MG TABLETS PO ONE (21:12)
[2019-12-27] MEDS ORDERED: ACETAMINOPHEN 1000 MG/100 ML VIAL (NON FORMULARY) IVPB ONE (21:13)
[2019-12-27] MEDS: ZOLPIDEM TARTRATE 5 MG TABLET PO PRN (23:34)
[2019-12-28] MEDS ORDERED: ceFAZolin SODIUM 1 GM VIAL ONE ×3 (00:43→17:08)
[2019-12-28] MEDS ORDERED: DEXTROSE 5%-WATER - 50 ML IVPB ONE ×3 (00:44→17:09)
[2019-12-28] MEDS: CEFAZOLIN 1 GM in DEXTROSE 5%-WATER - 50 ML IVPB SCH ×3 (01:01→17:10)
--- NOTE | 2019-12-28 06:19 | CON.CARD ---
Consult Consult Specialty:: Cardiology Referred by:: Dr. 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 Pt is a 74 yo F, with PMH of DM with neuropathy, HTN, RA, HF pEF (EF 50%), anemia, Afib (on xarelto), prior DVT (with IVC filter), recent epidural abscess drainage (L2-S1 seroma drained 11/22, with PICC line placed), who is presenting with complaints of exertional SOB x3 days. Pt states the SOB is on exertion only, and denies any recent swelling in her legs or associated chest pain. Pt ambulates with her walker with assistance of an aid, and has had her dressings changed daily. Pt was scheduled to be admitted 12/26 for wound vac placement for increased drainage from the site. Pt is on rocephin 2g Qday via R PICC line. denies any fevers/chills, headache, vision changes, syncope, chest pain, cough, palpitations, nausea/vomiting, abdominal pain, urinary symptoms, diarrhea/constipation, or leg swelling. Allergies: NKDA PCP: Dr. Henning Social: Pt denies any cigarette, alcohol, or drug use. Afebrile with controlled heart rate and acceptable BP trend thus far. Already feeling better after starting on Lasix 40mg IV daily Of note, BNP now is almost double prior values 2019 (2-3L range previously- now 6K) - History Source History Provided By: Patient, Family Member - Past Medical History [employer]: Yes: Syncope Cardio/Vascular: Yes: CHF, Deep Vein Thrombosis, HTN Pulmonary: Yes: Pulmonary Embolus ...: No Rheumatology: Yes: Rheumatoid Arthritis Endocrine: Yes: Diabetes Mellitus - Past Surgical History Past Surgical History: Yes: Bariatric Surgery (gastric band), Cholecystectomy, Hysterectomy, Joint Replacement (5 right hip replacements, 1 left hip replacement, bilateral TKR, left LTK with staph infection ), Laminectomy (back surgeries-reports 5, most rcent 06/19) - Alcohol/Substance Use Hx Alcohol Use: No - Smoking History Smoking history: Former smoker Have you smoked in the past 12 months: No Aproximately how many cigarettes per day: 0 If you are a former smoker, when did you quit?: 1966 - Social History Usual Living Arrangement: With Child ADL: Independent 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 [employer] History of Recent Travel: No Home Medications - Allergies Allergies/Adverse Reactions: Allergies Allergy/AdvReac Type Severity Reaction Status Date / Time levofloxacin [From Levaquin] Allergy Severe ANAPHYLAXIS Verified 12/26/19 13:30 methotrexate Allergy Severe Swelling Verified 12/26/19 13:30 Penicillins Allergy Mild Rash Verified 12/26/19 13:30 doxycycline Allergy Unknown Verified 12/26/19 13:30 bumetanide [From Bumex] Allergy Rash Verified 12/26/19 13:30 morphine AdvReac Mild Itching Verified 12/26/19 13:30 piperacillin sodium AdvReac Mild Itching Verified 12/26/19 13:30 [From Zosyn] tazobactam sodium AdvReac Mild Itching Verified 12/26/19 13:30 [From Zosyn] - Home Medications Home Medications: Ambulatory Orders Insulin Lispro Protamin/Lispro [Humalog Mix 75-25 Kwikpen] 22 unit SQ ACDIN 12/15/15 Zolpidem Tartrate [Ambien] 10 mg PO HS PRN 06/01/17 Leflunomide [Arava] 20 mg PO DAILY 07/26/18 Torsemide 50 mg PO DAILY 07/26/18 Baclofen 10 mg PO PRN 07/16/19 Rivaroxaban [Xarelto -] 20 mg PO DAILY #30 tablet 10/03/19 Carvedilol [Coreg -] 12.5 mg PO BID 11/23/19 Gabapentin [Neurontin -] 400 mg PO TID 11/23/19 Family Medical History Family History: Unremarkable (not pertinent to this presentation) Review of Systems - Review of Systems Constitutional: reports: No Symptoms Eyes: reports: No Symptoms HENT: reports: No Symptoms Neck: reports: No Symptoms Cardiovascular: reports: Shortness of Breath Respiratory: reports: Exercise Intolerance, SOB on Exertion Gastrointestinal: denies: No Symptoms, Abdominal Pain, Bloating, Constipation, Diarrhea, Dysphagia, Indigestion, Melena, Nausea, Rectal Bleeding, Vomiting, Vomiting Blood, Other Genitourinary: denies: No Symptoms, Burning, Discharge, Dysuria, Flank Pain, Aebl quency, Hematuria, Incontinence, Lesions, Menses, Pain, Testicular Mass, Testicular Pain, Testicular Swelling, Urgency, Vaginal Bleeding, Other Breasts: denies: No Symptoms Reported, See HPI, Breast Implants, Discharge from Nipple, Lumps, Pain, Skin Changes, Other Musculoskeletal: denies: No Symptoms, Back Pain, Crepitus, Decreased ROM, Extremity Pain, Joint Pain, Joint Swelling, Muscle Pain, Muscle Cramps, Muscle Weakness, Other Integumentary: denies: No Symptoms, Blister, Bruising, Change in Color, Eczema, Erythema, Incision, Lesions, Lump, Pallor, Pruritis, Rash, Wound, Other Neurological: denies: No Symptoms, Change in LOC, Change in Speech, Confusion, Dizziness, Headache, Incoordination, Numbness, Parasthesia, Pre-Existing Deficit, Seizure, Syncope, Tremors, Unsteady Gait, Weakness, Other Endocrine: denies: No Symptoms, Excessive Sweating, Flushing, Increased Hunger, Increased Thirst, Intolerance to Cold, Intolerance to Heat, Unexplained Weight Gain, Unexplained Weight Loss, Other Hematology/Lymphatic: denies: No Symptoms, Easily Bruised, Excessive Bleeding, Swollen Glands, Other Psychiatric: denies: No Symptoms, Altered Sleep Pattern, Anxiety, Depression, Hallucinations, Panic, Paranoia, Suicidal, Other - Risk Factors Known Risk Factors: Yes: Age, Diabetes Mellitus, Physical Inactivity Vital Signs: Vital Signs Temperature 98.3 F 12/27/19 22:00 Pulse Rate 118 H 12/27/19 22:00 Respiratory Rate 20 12/27/19 22:00 Blood Pressure 135/69 12/27/19 22:00 O2 Sat by Pulse Oximetry (%) 98 12/28/19 00:00 Constitutional: Yes: No Distress, Calm Respiratory: Yes: Other (decreased breath sounds bases b/l; poor effort. No wheezing) Gastrointestinal: Yes: Soft, Abdomen, Obese Cardiovascular: Yes: Pulse Irregular JVD: Yes Heart Sounds: Yes: S1, S2 (irreg) Edema: Yes Edema: LLE: 1+, RLE: 1+ Peripheral Pulses WNL: Yes Neurological: Yes: Alert, Oriented - Other Data Labs, Other Data: CBC, BMP 12/27/19 08:10 12/27/19 08:10 INR, PTT INR 1.34 (0.83-1.09) H 12/26/19 14:20 NSR, PVCs, prolonged QT Echo: Report Reviewed ( Moderately reduced EF, Moderate MR (this admission); 2018 50-55% with mild MR) Imaging - Results X-ray: Image Reviewed (increase interstitial markings) Assessment/Plan IMP: Epidural abscess, wound infection Acute on chronic systolic CHF, with what appears to be new LV dysfx from 2018 Moderate MR Prolonged QT PAF HTN 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 REC: 1. Epidural abscess: -As per ID 2. Acute on chronic systolic CHF: -EF now moderately reduced, last echo here 2018 50-55% -Cont IV Lasix, seems to be responding (was on Torsemide at home) -Daily weights and BMP to monitor renal fx -will need to d/w Dr. Pastrana and review office records to see if LV has been evaluated recently and if this truly represents a decline -If EF is truly declined, then an ischemic evaluation is in order when euvolemic. It may also be potentially rate related. -Cont Coreg -To consider starting DORENE or ARB if no contraindication prior to d/c if BP allows (would review with primary lehr operator Zeina) 3. Moderate MR: -medical therapy for now -May have progressed since 2018, or could be functional secondary to progressive LV dysfx 4. Prolonged QTC: -F/u ECGs -Keep K+ and Mg2+ normalized -Avoid / minimize QT prolonging meds 5. PAF: -Cont Coreg and Xarelto -Holter to assess rate control 6. DVT/PE with history of filter: -cont with AC 7. NICHOLE: -As per PMD
[2019-12-28] MEDS: BACLOFEN 10 MG TABLET (FP) PO PRN ×2 (06:52→23:13)
[2019-12-28] MEDS: INSULIN SLIDING SCALE (NOVOLOG) 1 VIAL SQ SCH ×4 (06:52→23:16)
[2019-12-28] MEDS: ACETAMINOPHEN 325 MG TABLET (FP) PO PRN ×2 (06:53→23:13)
[2019-12-28] MEDS: CARVEDILOL 12.5 MG TABLET (FP) PO SCH ×2 (10:28→23:13)
[2019-12-28] MEDS: GABAPENTIN 300 MG CAPSULE PO SCH (10:28)
[2019-12-28] MEDS: FUROSEMIDE 40 MG/4 ML INJECTABLE VIAL IVPUSH SCH (10:29)
[2019-12-28 10:32] LABS: BASO % 0.9 % (0-2.0); EOS % 5.4 % (0-4.5); HEMATOCRIT 31.1 % (32.4-45.2); HEMOGLOBIN 9.9 GM/dL (10.7-15.3); LYMPH % 23.9 % (8-40); MCH 26.8 pg (25.7-33.7); MCHC 31.9 g/dl (32.0-36.0); MEAN CELL VOLUME 84.1 fl (80-96); MEAN PLT VOLUME 7.8 fl (7.5-11.1); MONO % 15.5 % (3.8-10.2); NEUT % 54.3 % (42.8-82.8); PLATELET COUNT 219 K/MM3 (134-434); RDW 19.7 % (11.6-15.6); WHITE BLOOD COUNT 7.2 K/mm3 (4.0-10.0)
[2019-12-28 11:00] LABS: ALBUMIN 2.8 g/dl (3.4-5.0); BILIRUBIN,TOTAL 0.3 mg/dL (0.2-1); BLOOD UREA NITROGEN 25.4 mg/dL (7-18); CALCIUM 8.4 mg/dL (8.5-10.1); CREATININE 1.1 mg/dL (0.55-1.3); MAGNESIUM 2.5 mg/dL (1.8-2.4); PHOSPHOROUS 3.8 mg/dL (2.5-4.9); TOT PROT 6.5 g/dl (6.4-8.2)
--- NOTE | 2019-12-28 11:22 | PN ---
Progress Note, Physician History of Present Illness: patient stable no new issues plan to wound vac - Current Medication List Current Medications: Active Medications Acetaminophen (Tylenol -) 650 mg PO Q6H PRN PRN Reason: PAIN LEVEL 1-5 OR FEVER Last Admin: 12/28/19 06:53 Dose: 650 mg Documented by: Baclofen (Lioresal -) 10 mg PO TID PRN PRN Reason: MUSCLE SPASM Last Admin: 12/28/19 06:52 Dose: 10 mg Documented by: Carvedilol (Coreg -) 12.5 mg PO BID [facility] Last Admin: 12/28/19 10:28 Dose: 12.5 mg Documented by: Furosemide (Lasix Injection -) 40 mg IVPUSH DAILY [facility] Last Admin: 12/28/19 10:29 Dose: 40 mg Documented by: Gabapentin (Neurontin -) 600 mg PO DAILY [facility] Last Admin: 12/28/19 10:28 Dose: 600 mg Documented by: Cefazolin Sodium 1 gm/ (Dextrose) 50 mls @ 100 mls/hr IVPB Q8H-IV [facility] Last Admin: 12/28/19 10:28 Dose: 100 mls/hr Documented by: Insulin Aspart (Novolog Vial Sliding Scale -) 0 vial SQ ACHS [facility]; Protocol Last Admin: 12/28/19 06:52 Dose: 2 units Documented by: Multi-Ingredient Lotion (Eucerin (Small Jar) -) 1 applic TP DAILY PRN PRN Reason: DRY SKIN Last Admin: 12/27/19 01:10 Dose: 1 applic Documented by: Rivaroxaban (Xarelto) 20 mg PO DAILY@1800 LISA Last Admin: 12/27/19 17:21 Dose: 20 mg Documented by: Zolpidem Tartrate (Ambien -) 5 mg PO HS PRN PRN Reason: INSOMNIA Last Admin: 12/27/19 23:34 Dose: 5 mg Documented by: - Objective Vital Signs: Vital Signs Temperature 98 F 12/28/19 06:00 Pulse Rate 78 12/28/19 06:00 Respiratory Rate 20 12/28/19 06:00 Blood Pressure 160/77 12/28/19 06:00 O2 Sat by Pulse Oximetry (%) 98 12/28/19 00:00 Constitutional: Yes: No Distress, Calm Cardiovascular: Yes: S1, S2 Respiratory: Yes: Regular, CTA Bilaterally Gastrointestinal: Yes: Normal Bowel Sounds, Soft Musculoskeletal: Yes: WNL Extremities: Yes: Other Neurological: Yes: Alert, Oriented Psychiatric: Yes: Alert, Oriented Labs: CBC, BMP 12/28/19 09:35 12/28/19 09:35 INR, PTT INR 1.34 (0.83-1.09) H 12/26/19 14:20 Assessment/Plan this patient with h/o of epidural abscess and multiple medical problems coming in wiht sob and suspicion of wpound infection says drainage from the wound present continue current abx final plan awaited rest as per the team
[2019-12-28] MEDS: oxyCODONE HCL 5 MG TABLET PO PRN ×3 (12:16→23:13)
--- NOTE | 2019-12-28 13:12 | PN ---
Progress Note (short form) - Note Progress Note: 74F well known to [facility] Orthopaedic service now admitted w/CHF exacerbation. Pt. has chronic, draining lumbar spine wound, which is not the cause for admission. This is a chronic, stable condition. Pt. admitted due to SOB and cardiopulmonary concern. Pt. denies back pain at this time. Wound has continued to drain at home w/daily dry dressing changes & local wound care. At times, patient has reports that lower back has been foul-smelling. Her home health aid has sent out clinical team photographs of her back during this instances, at which time stool and fecal material has been identified around the wound margins. Attention is then typically turned to gentle wound care (sponge, soap, & water), to cleanse the wound. This eradicates the foul smell. Pain well controlled. No acute events overnight. Pt. denies overnight history of headaches, chest pain, shortness of breath, nausea, vomiting, chills, & sweats. (+) Hines catheter; (+) Flatus; (+) BM. Pt. ambulated with assistance in room. All labs and vitals reviewed. PE: AAO x 3, NAD. L-Spine: Sutures and zach removed. Midline longitudinal wound w/hypertrophic margins. (+) Staple/suture erythema w/staple/suture seromas/granulomas cleaned after staple/suture removal. No concerning signs of lana-incisional nor local soft tissue infection. (+) 1.5cm long draining sinus (serous fluid) in distal 2/3 of midline. No malodor. Lana-incisional skin cleansed w/betadine soap & gentle sponge scrub, wiped off with alcohol. Wound Vac applied w/off-loading sponge bridge/tongue. Maintaining suction at 125mmHg negative pressure therapy and no leak. NV at baseline B/L LE. (+) Chronic right hip pain d/t soft tissue irritation adjacent to shoulder of femoral prosthesis. A/P: 74F w/draining chronic lumbar wound (under control) sent to [facility] for admission and management of CHF exacerbation. -Care per primary cardiology team, as this is the purpose for this admission. -Pain medication: recommend oxyocodon 10mg PO q6h PRN pain (patient has multiple orthopaedic problems). -Maintain woundvac @ 125mmHg negative pressure therapy. -IV antibiotics as per Dr. Krueger (ID team); no indiction for Vancomycin. -DVT PPx: -Mechanical: MARLON's, SCD's. -Chemical: Xarelto qD. -f/u AM labs. -Incentive spirometry. -PT/OT/Rehab, OOB at least once daily, ideally 2-3 times daily. -WBAT B/L LE. -Advance diet as tolerated. -No heavy lifting (>5 lbs), bending or twisting. -B/L UE & LE NV checks. -Care per primary medical hospitalist team & ID team; no plan for surgical debridement at this time. Will remove Vac dressing Tuesday and re-evaluate wound at that time. -Will follow. Luis Borjas MD (Orthopaedic Surgery).
[2019-12-28] MEDS: RIVAROXABAN 20 MG TABLET PO SCH (17:10)
--- NOTE | 2019-12-28 17:56 | PN ---
Physical Exam: SUBJECTIVE: Patient seen and examined. Afebrile and asymptomatic. No overnight events. Back wound appears intact w/ no drainage noted, sutures intact. Surgery team assessed and placed wound vac. Discussed with surgery for possible wash out on tuesday. OBJECTIVE: Vital Signs Period Temp Pulse Resp BP Sys/Marcelo Pulse Ox Last 24 Hr 97.7 F-98.7 F 54-136 18-20 105-160/44-81 93-98 GENERAL: The patient is awake, alert, and fully oriented, in no acute distress. EYES: PERRL, extraocular movements intact, No ptosis. ENT: oropharynx clear without exudates, moist mucous membranes. LUNGS: Breath sounds equal, clear to auscultation bilaterally, no wheezes, no crackles HEART: Regular rate and rhythm, S1, S2 without murmur, rub or gallop. ABDOMEN: Soft, nontender, nondistended, normoactive bowel sounds, no guarding EXTREMITIES: 2+ pulses, warm, well-perfused, no edema. Back: Spinal surgical wound, sutures intact, appears closed with some crusted regions, no surrounding cellulitis, erythema. No drainage noted. SKIN: Warm, dry, normal turgor, no rashes or lesions noted Laboratory Results - last 24 hr 12/27/19 12/27/19 12/28/19 21:38 23:50 06:51 WBC RBC Hgb Hct MCV MCH MCHC RDW Plt Count MPV Absolute Neuts (auto) Neutrophils % Lymphocytes % Monocytes % Eosinophils % Basophils % Nucleated RBC % Sodium Potassium Chloride Carbon Dioxide Anion Gap BUN Creatinine Est GFR (CKD-EPI)AfAm Est GFR (CKD-EPI)NonAf POC Glucometer 229 71 177 Random Glucose Calcium Phosphorus Magnesium Iron TIBC Iron Saturation Unsaturated IBC Ferritin Total Bilirubin AST ALT Alkaline Phosphatase Total Protein Albumin Vitamin B12 Serum Folate 12/28/19 12/28/19 12/28/19 09:35 09:35 12:07 WBC 7.2 RBC 3.70 Hgb 9.9 L Hct 31.1 L MCV 84.1 MCH 26.8 MCHC 31.9 L RDW 19.7 H Plt Count 219 MPV 7.8 Absolute Neuts (auto) 3.9 Neutrophils % 54.3 Lymphocytes % 23.9 Monocytes % 15.5 H Eosinophils % 5.4 H Basophils % 0.9 Nucleated RBC % 0 Sodium 134 L Potassium 4.0 Chloride 98 Carbon Dioxide 27 Anion Gap 9 BUN 25.4 H Creatinine 1.1 Est GFR (CKD-EPI)AfAm 57.68 Est GFR (CKD-EPI)NonAf 49.77 POC Glucometer 212 Random Glucose 137 H Calcium 8.4 L Phosphorus 3.8 Magnesium 2.5 H Iron 22 L TIBC 307 Iron Saturation 7 L Unsaturated IBC 285 H Ferritin 43.1 Total Bilirubin 0.3 AST 14 L ALT 9 L Alkaline Phosphatase 145 H Total Protein 6.5 Albumin 2.8 L Vitamin B12 352 Serum Folate 17 12/28/19 17:05 WBC RBC Hgb Hct MCV MCH MCHC RDW Plt Count MPV Absolute Neuts (auto) Neutrophils % Lymphocytes % Monocytes % Eosinophils % Basophils % Nucleated RBC % Sodium Potassium Chloride Carbon Dioxide Anion Gap BUN Creatinine Est GFR (CKD-EPI)AfAm Est GFR (CKD-EPI)NonAf POC Glucometer 134 Random Glucose Calcium Phosphorus Magnesium Iron TIBC Iron Saturation Unsaturated IBC Ferritin Total Bilirubin AST ALT Alkaline Phosphatase Total Protein Albumin Vitamin B12 Serum Folate Active Medications Generic Name Dose Route Start Last Admin Trade Name Freq PRN Reason Stop Dose Admin Acetaminophen 650 mg 12/26/19 20:27 12/28/19 06:53 Tylenol - PO 650 mg Q6H PRN Administration PAIN LEVEL 1-5 OR FEVER Baclofen 10 mg 12/26/19 22:00 12/28/19 06:52 Lioresal - PO 10 mg TID PRN Administration MUSCLE SPASM Carvedilol 12.5 mg 12/26/19 22:00 12/28/19 10:28 Coreg - PO 12.5 mg BID LISA Administration Furosemide 40 mg 12/27/19 10:00 12/28/19 10:29 Lasix Injection - IVPUSH 40 mg DAILY LISA Administration Gabapentin 600 mg 12/27/19 10:00 12/28/19 10:28 Neurontin - PO 600 mg DAILY LISA Administration Cefazolin Sodium 1 gm/ 50 mls @ 100 mls/hr 12/27/19 10:00 12/28/19 17:10 Dextrose IVPB 100 mls/hr Q8H-IV LISA Administration Insulin Aspart 0 vial 12/26/19 22:00 12/28/19 17:05 Novolog Vial Sliding Scale - SQ Not Given ACHS LISA Protocol Multi-Ingredient Lotion 1 applic 12/27/19 00:47 12/27/19 01:10 Eucerin (Small Jar) - TP 1 applic DAILY PRN Administration DRY SKIN Oxycodone HCl 10 mg 12/28/19 11:42 12/28/19 17:36 Roxicodone - PO 10 mg Q6H PRN Administration PAIN LEVEL 6-10 Rivaroxaban 20 mg 12/27/19 18:00 12/28/19 17:10 Xarelto PO 20 mg DAILY@1800 LISA Administration Zolpidem Tartrate 5 mg 12/26/19 22:00 12/27/19 23:34 Ambien - PO 5 mg HS PRN Administration INSOMNIA ASSESSMENT/PLAN: 74 y/o F, pmh of d-CHF, RA, DM 2, HTN, Hx DVT/PE, a fib (on Xarelto), multiple spine surgeries, s/p L4/5 laminectomy then L5/S1 seroma with recent epidural abscess drainage s/p I and D, complex wound closure and wound vac placement 11/25-sent home on IV Rocephin via PICC 12/03 returns w/ shortness of breath for 3 days admitted for CHF exacerbation #Acute Sys-CHF exacerbation r/o COVID No hypoxia, COVID negative Symptomatic improvement with lasix cont lasix 40 daily, hold torsemide Echo -EF 35-40%, moderate LV hypokinesis, LA severely dilated, declined from previous Echo in 2018- w/ EF 55% Cardiology consult appreciate- Discussed with Dr. Pastrana, as pt follows Dr. Pastrana outpt. Dr. Pastrana recom no further management or need for work up for ischemia in the hospital. Will need to discuss with cardio if pt can go for wash out w/ anesthesia F/u consideration to start DORENE or ARB if no contraindication prior to d/c if BP allows (Dr Steele to review with primary area supervisor Zeina) Discussed with SW for wound vac authorization, pending #Epidural Abscess s/p I and D discharged 12/03 on 4 week course of IV ceftriaxone via PICC 3 weeks completed abx so far Discussed with Dr. Borjas, plans to consider wash out on tuesday, but for now maintain Wound vac and control pain Oxy 10 Q6 PRN meds reconciled with Rx Ancef while awaiting surgical evaluation #Paroxysmal Atrial Fibrillation Coreg Xarelto #Hx PE/DVT Xarelto #DM uncontrolled A1c 9.0 BGM ISS #RA Leflunomide. #Normocytic Anemia 2/2 to anemia of chronic disease Iron/Ferritin/B12/Folate levels- consistent with above ferrous sulfate started MMA ordered- f/u #DVT Ppx on Xarelto FEN monitor lytes cont oxygen NRB Diabetic diet Dispo: cont xarelto, cont lasix, f/u wound vac auth Visit type - Emergency Visit Emergency Visit: Yes ED Registration Date: 12/26/19 Care time: The patient presented to the Emergency Department on the above date and was hospitalized for further evaluation of their emergent condition. - New Patient This patient is new to me today: Yes Date on this admission: 12/30/19 - Critical Care Critical Care patient: No - Discharge Referral Referred to [facility] Med P.C.: No ATTENDING PHYSICIAN STATEMENT I saw and evaluated the patient. I reviewed the resident's note and discussed the case with the resident. I agree with the resident's findings and plan as documented. SUBJECTIVE: OBJECTIVE: ASSESSMENT AND PLAN:
--- NOTE | 2019-12-28 18:06 | PN ---
Teaching Attending Note Name of Resident: Erick Interiano ATTENDING PHYSICIAN STATEMENT I saw and evaluated the patient. I reviewed the resident's note and discussed the case with the resident. I agree with the resident's findings and plan as documented. SUBJECTIVE: Feeling less SOB. No cough/sputum/CP/hemoptysis. No fever/chills. OBJECTIVE: Afebrile, Hemodynamically Stable. Last Vital Signs Temp Pulse Resp BP Pulse Ox 97.7 F 136 H 20 114/81 93 L 12/28/19 17:39 12/28/19 17:39 12/28/19 17:39 12/28/19 17:39 12/28/19 16:00 Heart - S1, S2, RRR Lungs - good air entry, mildly reduced at bases. Abdomen - high BMI, soft, non-tender. Bowel Sounds normal. Extremities - Mild edema, no calf tenderness. MS - Dressed spinal surgical wound. Laboratory Results - last 24 hr 12/27/19 12/27/19 12/28/19 21:38 23:50 06:51 WBC RBC Hgb Hct MCV MCH MCHC RDW Plt Count MPV Absolute Neuts (auto) Neutrophils % Lymphocytes % Monocytes % Eosinophils % Basophils % Nucleated RBC % Sodium Potassium Chloride Carbon Dioxide Anion Gap BUN Creatinine Est GFR (CKD-EPI)AfAm Est GFR (CKD-EPI)NonAf POC Glucometer 229 71 177 Random Glucose Calcium Phosphorus Magnesium Iron TIBC Iron Saturation Unsaturated IBC Ferritin Total Bilirubin AST ALT Alkaline Phosphatase Total Protein Albumin Vitamin B12 Serum Folate 12/28/19 12/28/19 12/28/19 09:35 09:35 12:07 WBC 7.2 RBC 3.70 Hgb 9.9 L Hct 31.1 L MCV 84.1 MCH 26.8 MCHC 31.9 L RDW 19.7 H Plt Count 219 MPV 7.8 Absolute Neuts (auto) 3.9 Neutrophils % 54.3 Lymphocytes % 23.9 Monocytes % 15.5 H Eosinophils % 5.4 H Basophils % 0.9 Nucleated RBC % 0 Sodium 134 L Potassium 4.0 Chloride 98 Carbon Dioxide 27 Anion Gap 9 BUN 25.4 H Creatinine 1.1 Est GFR (CKD-EPI)AfAm 57.68 Est GFR (CKD-EPI)NonAf 49.77 POC Glucometer 212 Random Glucose 137 H Calcium 8.4 L Phosphorus 3.8 Magnesium 2.5 H Iron 22 L TIBC 307 Iron Saturation 7 L Unsaturated IBC 285 H Ferritin 43.1 Total Bilirubin 0.3 AST 14 L ALT 9 L Alkaline Phosphatase 145 H Total Protein 6.5 Albumin 2.8 L Vitamin B12 352 Serum Folate 17 12/28/19 17:05 WBC RBC Hgb Hct MCV MCH MCHC RDW Plt Count MPV Absolute Neuts (auto) Neutrophils % Lymphocytes % Monocytes % Eosinophils % Basophils % Nucleated RBC % Sodium Potassium Chloride Carbon Dioxide Anion Gap BUN Creatinine Est GFR (CKD-EPI)AfAm Est GFR (CKD-EPI)NonAf POC Glucometer 134 Random Glucose Calcium Phosphorus Magnesium Iron TIBC Iron Saturation Unsaturated IBC Ferritin Total Bilirubin AST ALT Alkaline Phosphatase Total Protein Albumin Vitamin B12 Serum Folate Current Medications Generic Name Dose Route Start Last Admin Trade Name Freq PRN Reason Stop Dose Admin Acetaminophen 650 mg 12/26/19 20:27 12/28/19 06:53 Tylenol - PO 650 mg Q6H PRN Administration PAIN LEVEL 1-5 OR FEVER Baclofen 10 mg 12/26/19 22:00 12/28/19 06:52 Lioresal - PO 10 mg TID PRN Administration MUSCLE SPASM Carvedilol 12.5 mg 12/26/19 22:00 12/28/19 10:28 Coreg - PO 12.5 mg BID LISA Administration Furosemide 40 mg 12/27/19 10:00 12/28/19 10:29 Lasix Injection - IVPUSH 40 mg DAILY LISA Administration Gabapentin 600 mg 12/27/19 10:00 12/28/19 10:28 Neurontin - PO 600 mg DAILY LISA Administration Cefazolin Sodium 1 gm/ 50 mls @ 100 mls/hr 12/27/19 10:00 12/28/19 17:10 Dextrose IVPB 100 mls/hr Q8H-IV LISA Administration Insulin Aspart 0 vial 12/26/19 22:00 12/28/19 17:05 Novolog Vial Sliding Scale - SQ Not Given ACHS LISA Protocol Leflunomide 20 mg 12/28/19 18:00 Arava - PO DAILY LISA Multi-Ingredient Lotion 1 applic 12/27/19 00:47 12/27/19 01:10 Eucerin (Small Jar) - TP 1 applic DAILY PRN Administration DRY SKIN Oxycodone HCl 10 mg 12/28/19 11:42 12/28/19 17:36 Roxicodone - PO 10 mg Q6H PRN Administration PAIN LEVEL 6-10 Pramipexole Dihydrochloride 0.25 mg 12/28/19 22:00 Mirapex - PO BID LISA Rivaroxaban 20 mg 12/27/19 18:00 12/28/19 17:10 Xarelto PO 20 mg DAILY@1800 LISA Administration Zolpidem Tartrate 5 mg 12/26/19 22:00 12/27/19 23:34 Ambien - PO 5 mg HS PRN Administration INSOMNIA Home Medications Medication Instructions Recorded Insulin Lispro Protamin/Lispro 22 unit SQ ACDIN 12/15/15 [Humalog Mix 75-25 Kwikpen] Zolpidem Tartrate [Ambien] 10 mg PO HS PRN 06/01/17 Leflunomide [Arava] 20 mg PO DAILY 07/26/18 Torsemide 50 mg PO DAILY 07/26/18 Baclofen 10 mg PO PRN 07/16/19 Rivaroxaban [Xarelto -] 20 mg PO DAILY #30 tablet 10/03/19 Carvedilol [Coreg -] 12.5 mg PO BID 11/23/19 Gabapentin [Neurontin -] 600 mg PO TID 11/23/19 Diazepam 10 mg PO DAILY 12/28/19 Oxycodone HCl/Acetaminophen 1 each PO QID 12/28/19 [Percocet 10-325 mg Tablet] Pramipexole Di-HCl [Mirapex] 0.25 mg PO BID 12/28/19 ASSESSMENT AND PLAN: 74 year old female with history of diastolic CHF, RA, DM 2, HTN, Hx DVT/PE, a fib (on Xarelto), multiple spine surgeries, s/p L4/5 laminectomy then L5/S1 seroma with recent epidural abscess drainage s/p I and D, complex wound closure and wound vac placement 11/25 - sent home on IV Rocephin via PICC 12/03 now returns with SOB for a 2-3 days. No cough/sputum/CP/hemoptysis. No fever/chills. 1. Acute on Chronic Systolic CHF decompensation/known non-ischemic cardiomyopathy No hypoxia, COVID negative. Elevated BNP, symptoms improved with Lasix diuresis Echo - systolic CHF, EF 35-40%, moderate LV hypokinesis Continue Lasix diuresis. Torsemide held. Cardiology consulted - patient has known non-ischemic cardiomyopathy with prior cardiac caths showing no disease, no nesd for ischemic eval. 2. Recent Epidural Abscess s/p I and D by Spinal Surgery, discharged 12/03 on 4 week course of IV ceftriaxone via PICC Patient reporting foul smelling discharge. Afebrile, Hemodynamically Stable, no leukocytosis. Evaluated by Spinal Surgery - wound vac applied - no plans for any further surgical procedures. Out-patient Spinal Sx follow up. ID changed Abx to Ancef while in-patient. 3. Paroxysmal Atrial Fibrillation - continue Coreg and Xarelto 4. Hx PE/DVT - continue Xarelto 5. DM 2 - uncontrolled, A1c 9.0. Maintain on Novolog sliding scale. 6. RA - on Leflunomide. 7. Normocytic Anemia - B12 352, Iron Sat 7, Folate 11, Ferritin 45. Will send MMA and supplement iron. Will need out-patient Iron Deficiency work-up. DVT Px - on Xarelto.
[2019-12-28] MEDS ORDERED: VANCOMYCIN 1 GM in D5W (PRE-DOCKED) 1,000 MG/250 ML IVPB SCH ×2 (18:15→22:00)
[2019-12-28] MEDS: VANCOMYCIN 1 GRAM (PRE-DOCKED) 1,000 MG/250 ML BAG IVPB SCH (18:56)
[2019-12-28] MEDS ORDERED: PT OWN MED DRAWER 7, Y5N ONE (19:27)
[2019-12-28] MEDS: LEFLUNOMIDE 10 MG TABLET PO SCH (19:30)
[2019-12-28] MEDS: PRAMIPEXOLE DIHYDROCHLORIDE 0.25 MG TABLET PO SCH (23:13)
[2019-12-28] MEDS: ZOLPIDEM TARTRATE 5 MG TABLET PO PRN (23:13)
[2019-12-29] MEDS: CEFAZOLIN 1 GM in DEXTROSE 5%-WATER - 50 ML IVPB SCH ×3 (03:00→17:15)
[2019-12-29] MEDS ORDERED: ceFAZolin SODIUM 1 GM VIAL ONE ×3 (06:33→15:35)
[2019-12-29] MEDS ORDERED: DEXTROSE 5%-WATER - 50 ML IVPB ONE ×3 (06:33→15:35)
[2019-12-29] MEDS: VANCOMYCIN 1 GRAM (PRE-DOCKED) 1,000 MG/250 ML BAG IVPB SCH (06:45)
[2019-12-29] MEDS: INSULIN SLIDING SCALE (NOVOLOG) 1 VIAL SQ SCH ×4 (06:48→21:31)
[2019-12-29] MEDS ORDERED: PT OWN MED DRAWER 7, Y5N ONE ×5 (08:06→21:20)
--- NOTE | 2019-12-29 09:44 | PN ---
Progress Note, Physician Chief Complaint: leg swelling, sob History of Present Illness: sob much improved. however with prolonged speaking or light activity she feels sob and it is relieved with NC oxygen. no orthopnea. RLE swelling resolved (L was only minimally swollen) no chest heaviness/pain no cigs - Current Medication List Current Medications: Active Medications Acetaminophen (Tylenol -) 650 mg PO Q6H PRN PRN Reason: PAIN LEVEL 1-5 OR FEVER Last Admin: 12/28/19 23:13 Dose: 650 mg Documented by: Baclofen (Lioresal -) 10 mg PO TID PRN PRN Reason: MUSCLE SPASM Last Admin: 12/28/19 23:13 Dose: 10 mg Documented by: Carvedilol (Coreg -) 12.5 mg PO BID [facility] Last Admin: 12/28/19 23:13 Dose: 12.5 mg Documented by: Ferrous Sulfate (Feosol -) 325 mg PO BIDWM [facility] Furosemide (Lasix Injection -) 40 mg IVPUSH DAILY [facility] Last Admin: 12/28/19 10:29 Dose: 40 mg Documented by: Gabapentin (Neurontin -) 600 mg PO DAILY [facility] Last Admin: 12/28/19 10:28 Dose: 600 mg Documented by: Cefazolin Sodium 1 gm/ (Dextrose) 50 mls @ 100 mls/hr IVPB Q8H-IV [facility] Last Admin: 12/29/19 03:00 Dose: 100 mls/hr Documented by: Insulin Aspart (Novolog Vial Sliding Scale -) 0 vial SQ ACHS [facility]; Protocol Last Admin: 12/29/19 06:48 Dose: 2 units Documented by: Leflunomide (Arava -) 20 mg PO DAILY [facility] Last Admin: 12/28/19 19:30 Dose: 20 mg Documented by: Multi-Ingredient Lotion (Eucerin (Small Jar) -) 1 applic TP DAILY PRN PRN Reason: DRY SKIN Last Admin: 12/27/19 01:10 Dose: 1 applic Documented by: Oxycodone HCl (Roxicodone -) 10 mg PO Q6H PRN PRN Reason: PAIN LEVEL 6-10 Last Admin: 12/28/19 23:13 Dose: 10 mg Documented by: Pramipexole Dihydrochloride (Mirapex -) 0.25 mg PO BID [facility] Last Admin: 12/28/19 23:13 Dose: 0.25 mg Documented by: Rivaroxaban (Xarelto) 20 mg PO DAILY@1800 LISA Last Admin: 12/28/19 17:10 Dose: 20 mg Documented by: Vancomycin HCl (Vancomycin (Pre-Docked)) 1,000 mg IVPB Q12H LISA; Protocol Zolpidem Tartrate (Ambien -) 5 mg PO HS PRN PRN Reason: INSOMNIA Last Admin: 12/28/19 23:13 Dose: 5 mg Documented by: - Objective Vital Signs: Vital Signs Temperature 98.2 F 12/29/19 01:44 Pulse Rate 80 12/29/19 06:00 Respiratory Rate 18 12/29/19 06:00 Blood Pressure 122/66 12/29/19 06:00 O2 Sat by Pulse Oximetry (%) 98 12/28/19 21:00 Constitutional: Yes: Well Nourished, No Distress, Calm Eyes: No: Sclera Icterus HENT: No: Nasal Congestion Cardiovascular: Yes: Regular Rate and Rhythm, S1, S2 Respiratory: Yes: Regular, CTA Bilaterally. No: Wheezes Gastrointestinal: Yes: Normal Bowel Sounds, Soft. No: Tenderness Musculoskeletal: Yes: Other (No kyphosis) Extremities: No: Cold Edema: No Integumentary: No: Jaundice Neurological: Yes: Alert, Oriented Psychiatric: No: Agitated Labs: CBC, BMP 12/28/19 09:35 12/28/19 09:35 INR, PTT INR 1.34 (0.83-1.09) H 12/26/19 14:20 Assessment/Plan tele: NSR, sinus tach, NSVT 8b IMP: Epidural abscess, wound infection Acute on chronic systolic CHF, with what appears to be new LV dysfx from 2018 Moderate MR Prolonged QT PAF HTN 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 REC: Epidural abscess: -plan per spine surgery, ID Acute on chronic systolic CHF, moderate MR: -known nonisch CMP with normal coronaries on cath x 2 -EF has fluctuated 35-55% over the years, likely in relation to severity of unt reated NICHOLE, vs ? diabetic (uncontrolled glycemic status, does not f/u with PMD despite repeatedly advised to do so) -EF now moderately reduced (35-40%, global), last echo here 2018 was 50-55%. -has not had significant burden of AF, doubt tachy-CMP here but will monitor tele -receiving IV Lasix 40 QD--not urinating much per pt report, though edema resolved. no JVD--? euvolemic. BNP 6K (baseline runs 2-3K). continues to feel SOB with little activity. increase lasix to 80 IV QD x 1 trial today--reassess sx's, wt, labs tomorrow. -Cont Coreg -low dose DORENE held during recent admit due to mild hyperkalemia and soft BPs (was on lisinopril 5 qd then). given current EF, pt has mortality benefit from Entresto. K normal, BP currently mostly > 110. Will try Entresto 24-26 BID dose and monitor K/BP closely. Prolonged QTC: -F/u ECGs -Keep K+ and Mg2+ normalized -Avoid / minimize QT prolonging meds VTach: -NSVT on tele -cont bb -HF optimization (diuresis) as doing -replete K/Mg to 4/2 PAF: -Cont Coreg and Xarelto -Holter to assess rate control DVT/PE with history of filter: -cont with AC NICHOLE: -not treated, pt has not followed up for cpap therapy
[2019-12-29] MEDS: ACETAMINOPHEN 325 MG TABLET (FP) PO PRN ×3 (09:45→21:25)
[2019-12-29] MEDS: LEFLUNOMIDE 10 MG TABLET PO SCH (09:46)
[2019-12-29] MEDS: oxyCODONE HCL 5 MG TABLET PO PRN ×3 (09:46→21:25)
[2019-12-29] MEDS: CARVEDILOL 12.5 MG TABLET (FP) PO SCH ×2 (09:48→21:25)
[2019-12-29] MEDS: FUROSEMIDE 40 MG/4 ML INJECTABLE VIAL IVPUSH SCH ×2 (09:48→15:43)
[2019-12-29] MEDS: PRAMIPEXOLE DIHYDROCHLORIDE 0.25 MG TABLET PO SCH ×2 (09:48→21:25)
[2019-12-29] MEDS: FERROUS SO4 325 MG TABLET (FP) PO SCH ×2 (09:48→17:14)
[2019-12-29] MEDS: GABAPENTIN 300 MG CAPSULE PO SCH (09:48)
[2019-12-29] MEDS: SACUBITRIL/VALSARTAN 24 MG-26 MG TABLET PO SCH ×2 (10:50→21:25)
[2019-12-29 13:22] LABS: BASO % 1.3 % (0-2.0); EOS % 4.1 % (0-4.5); HEMATOCRIT 30.7 % (32.4-45.2); HEMOGLOBIN 9.9 GM/dL (10.7-15.3); LYMPH % 23.3 % (8-40); MCH 26.9 pg (25.7-33.7); MCHC 32.1 g/dl (32.0-36.0); MEAN PLT VOLUME 8.2 fl (7.5-11.1); MONO % 12.3 % (3.8-10.2); PLATELET COUNT 221 K/MM3 (134-434); RBC 3.66 M/mm3 (3.60-5.2); RDW 19.7 % (11.6-15.6); WHITE BLOOD COUNT 6.8 K/mm3 (4.0-10.0)
--- NOTE | 2019-12-29 13:26 | PN ---
Physical Exam: SUBJECTIVE: Patient seen and examined O/N: had EKG which showed AFib Denies chest pain, fever. Has wound vac leak for unknown duration OBJECTIVE: Vital Signs Period Temp Pulse Resp BP Sys/Marcelo Pulse Ox Last 24 Hr 97.6 F-98.2 F 54-136 18-22 111-122/44-86 93-98 GENERAL: The patient is awake, alert, and fully oriented, in no acute distress. EYES: No ptosis. ENT: oropharynx clear without exudates, moist mucous membranes. LUNGS: Breath sounds equal, clear to auscultation bilaterally, no wheezes, no crackles HEART: Regular rate and rhythm, S1, S2 without murmur, rub or gallop. ABDOMEN: Soft, nontender, nondistended, normoactive bowel sounds, no guarding EXTREMITIES: 2+ pulses, warm, well-perfused, nonpitting edema Back: Spinal surgical wound with ovelrying iodoform wound vac dressing. Wound vac w/ prolonged leak. No drainage noted. SKIN: Warm, dry, normal turgor, no rashes or lesions noted Laboratory Results - last 24 hr 12/28/19 12/28/19 12/28/19 17:05 19:40 23:15 POC Glucometer 134 186 Troponin I < 0.02 12/29/19 06:48 POC Glucometer 168 Troponin I Active Medications Generic Name Dose Route Start Last Admin Trade Name Freq PRN Reason Stop Dose Admin Acetaminophen 650 mg 12/26/19 20:27 12/29/19 09:45 Tylenol - PO 650 mg Q6H PRN Administration PAIN LEVEL 1-5 OR FEVER Baclofen 10 mg 12/26/19 22:00 12/28/19 23:13 Lioresal - PO 10 mg TID PRN Administration MUSCLE SPASM Carvedilol 12.5 mg 12/26/19 22:00 12/29/19 09:48 Coreg - PO 12.5 mg BID LISA Administration Ferrous Sulfate 325 mg 12/29/19 08:00 12/29/19 09:48 Feosol - PO 325 mg BIDWM LISA Administration Furosemide 40 mg 12/27/19 10:00 12/29/19 09:48 Lasix Injection - IVPUSH 40 mg DAILY LISA Administration Gabapentin 600 mg 12/27/19 10:00 12/29/19 09:48 Neurontin - PO 600 mg DAILY LISA Administration Cefazolin Sodium 1 gm/ 50 mls @ 100 mls/hr 12/27/19 10:00 12/29/19 09:47 Dextrose IVPB 100 mls/hr Q8H-IV LISA Administration Insulin Aspart 0 vial 12/26/19 22:00 12/29/19 11:30 Novolog Vial Sliding Scale - SQ 4 units ACHS LISA Administration Protocol Leflunomide 20 mg 12/28/19 18:00 12/29/19 09:46 Arava - PO 20 mg DAILY LISA Administration Multi-Ingredient Lotion 1 applic 12/27/19 00:47 12/27/19 01:10 Eucerin (Small Jar) - TP 1 applic DAILY PRN Administration DRY SKIN Oxycodone HCl 10 mg 12/28/19 11:42 12/29/19 09:46 Roxicodone - PO 10 mg Q6H PRN Administration PAIN LEVEL 6-10 Pramipexole Dihydrochloride 0.25 mg 12/28/19 22:00 12/29/19 09:48 Mirapex - PO 0.25 mg BID LISA Administration Rivaroxaban 20 mg 12/27/19 18:00 12/28/19 17:10 Xarelto PO 20 mg DAILY@1800 LISA Administration Sacubitril/Valsartan 1 tab 12/29/19 10:00 12/29/19 10:50 Entresto 24 Mg-26 Mg Tablet PO 1 tab BID LISA Administration Zolpidem Tartrate 5 mg 12/26/19 22:00 12/28/19 23:13 Ambien - PO 5 mg HS PRN Administration INSOMNIA ASSESSMENT/PLAN: 74 y/o F, pmh of d-CHF, RA, DM 2, HTN, Hx DVT/PE, a fib (on Xarelto), multiple spine surgeries, s/p L4/5 laminectomy then L5/S1 seroma with recent epidural abscess drainage s/p I and D, complex wound closure and wound vac placement 11/25-sent home on IV Rocephin via PICC 12/03 returned w/ shortness of breath for 3 days admitted for CHF exacerbation #Acute Sys-CHF exacerbation r/o COVID No hypoxia, COVID negative Symptomatic improvement with lasix cont lasix 40 daily, hold torsemide > Echo -EF 35-40%, moderate LV hypokinesis, LA severely dilated, declined from previous Echo in 2018- w/ EF 55% Cardiology consult(Zeina) --EF has fluctuated 35-55% over the years, possible d/t NICHOLE vs DM --started Entresto --moderate MR, may have progressed d/t LV dysfx --prolonged QTc, fu EKGs --PAF, cw coreg and xarelot. Outpt Holter F/u consideration to start DORENE or ARB if no contraindication prior to d/c if BP allows (Dr Steele to review with primary disk operator Zeina) Discussed with [facility] for wound vac authorization, pending #Epidural Abscess s/p I and D discharged 12/03 on 4 week course of IV ceftriaxone via PICC 3 weeks completed abx so far Discussed with Dr. Borjas, plans to change wound vac on tuesday and evaluate for washout, but for now maintain Wound vac and control pain wound vac reinforecement PRN > BCX(12/26/19): 1 of 2 bottles w/ staph coag neg > BCX(12/28/19): NGTD Oxy 10 Q6 PRN meds reconciled with Rx cefazolin vanc stopped by [place] #Paroxysmal Atrial Fibrillation Coreg Xarelto #Hx PE/DVT Xarelto #DM uncontrolled HbA1c(11/24/19) 9.1 BGM ISS #RA Leflunomide. #Normocytic Anemia 2/2 to anemia of chronic disease Iron/Ferritin/B12/Folate levels- consistent with above ferrous sulfate started MMA ordered- f/u #DVT Ppx on Xarelto FEN monitor lytes cont oxygen NRB Diabetic diet Dispo: cont xarelto, cont lasix, f/u wound vac auth Visit type - Emergency Visit Emergency Visit: No - New Patient This patient is new to me today: Yes Date on this admission: 12/29/19 - Critical Care Critical Care patient: No ATTENDING PHYSICIAN STATEMENT I saw and evaluated the patient. I reviewed the resident's note and discussed the case with the resident. I agree with the resident's findings and plan as documented. SUBJECTIVE: OBJECTIVE: ASSESSMENT AND PLAN:
[2019-12-29 14:00] LABS: ALBUMIN 2.8 g/dl (3.4-5.0); BILIRUBIN,TOTAL 0.7 mg/dL (0.2-1); BLOOD UREA NITROGEN 28.1 mg/dL (7-18); CALCIUM 8.3 mg/dL (8.5-10.1); MAGNESIUM 2.3 mg/dL (1.8-2.4); POTASSIUM 3.8 mmol/L (3.5-5.1); TOT PROT 6.4 g/dl (6.4-8.2)
[2019-12-29] MEDS ORDERED: POTASSIUM CHLORIDE TABS 20 MEQ TABLET.ER (FP) PO ONE (14:09)
--- NOTE | 2019-12-29 14:50 | PN ---
Teaching Attending Note Name of Resident: Addy Guy ATTENDING PHYSICIAN STATEMENT I saw and evaluated the patient. I reviewed the resident's note and discussed the case with the resident. I agree with the resident's findings and plan as documented. SUBJECTIVE: SOB resolving, still some dyspnea on exertion. No cough/sputum/CP/palpitations/hemoptysis. No fever/chills. OBJECTIVE: Afebrile, Hemodynamically Stable. Some short runs of RVR on Tele. Last Vital Signs Temp Pulse Resp BP Pulse Ox 97.6 F 75 19 118/54 L 94% on 2L 12/29/19 10:00 12/29/19 10:00 12/29/19 10:00 12/29/19 10:00 12/29/19 09:00 Heart - S1, S2, no murmurs Lungs - good air entry, mildly reduced at bases. Abdomen - high BMI, soft, non-tender. Bowel Sounds normal. Extremities - Mild edema, no calf tenderness. RUE PICC. MS - Spinal surgical wound with wound vac. Laboratory Results - last 24 hr 12/28/19 12/28/19 12/28/19 17:05 19:40 23:15 WBC RBC Hgb Hct MCV MCH MCHC RDW Plt Count MPV Absolute Neuts (auto) Neutrophils % Lymphocytes % Monocytes % Eosinophils % Basophils % Nucleated RBC % Sodium Potassium Chloride Carbon Dioxide Anion Gap BUN Creatinine Est GFR (CKD-EPI)AfAm Est GFR (CKD-EPI)NonAf POC Glucometer 134 186 Random Glucose Calcium Phosphorus Magnesium Total Bilirubin AST ALT Alkaline Phosphatase Troponin I < 0.02 Total Protein Albumin 12/29/19 12/29/19 12/29/19 06:48 11:30 11:30 WBC 6.8 RBC 3.66 Hgb 9.9 L Hct 30.7 L MCV 84.0 MCH 26.9 MCHC 32.1 RDW 19.7 H Plt Count 221 MPV 8.2 Absolute Neuts (auto) 4.0 Neutrophils % 59.0 Lymphocytes % 23.3 Monocytes % 12.3 H Eosinophils % 4.1 Basophils % 1.3 Nucleated RBC % 0 Sodium 135 L Potassium 3.8 Chloride 101 Carbon Dioxide 26 Anion Gap 8 BUN 28.1 H Creatinine 1.0 Est GFR (CKD-EPI)AfAm 64.73 Est GFR (CKD-EPI)NonAf 55.85 POC Glucometer 168 Random Glucose 212 H Calcium 8.3 L Phosphorus 3.0 Magnesium 2.3 Total Bilirubin 0.7 AST 15 ALT 9 L Alkaline Phosphatase 138 H Troponin I Total Protein 6.4 Albumin 2.8 L Current Medications Generic Name Dose Route Start Last Admin Trade Name Freq PRN Reason Stop Dose Admin Acetaminophen 650 mg 12/26/19 20:27 12/29/19 09:45 Tylenol - PO 650 mg Q6H PRN Administration PAIN LEVEL 1-5 OR FEVER Baclofen 10 mg 12/26/19 22:00 12/28/19 23:13 Lioresal - PO 10 mg TID PRN Administration MUSCLE SPASM Carvedilol 12.5 mg 12/26/19 22:00 12/29/19 09:48 Coreg - PO 12.5 mg BID LISA Administration Ferrous Sulfate 325 mg 12/29/19 08:00 12/29/19 09:48 Feosol - PO 325 mg BIDWM LISA Administration Furosemide 80 mg 12/29/19 14:30 Lasix Injection - IVPUSH DAILY LISA Gabapentin 600 mg 12/27/19 10:00 12/29/19 09:48 Neurontin - PO 600 mg DAILY LISA Administration Cefazolin Sodium 1 gm/ 50 mls @ 100 mls/hr 12/27/19 10:00 12/29/19 09:47 Dextrose IVPB 100 mls/hr Q8H-IV LISA Administration Insulin Aspart 0 vial 12/26/19 22:00 12/29/19 11:30 Novolog Vial Sliding Scale - SQ 4 units ACHS LISA Administration Protocol Leflunomide 20 mg 12/28/19 18:00 12/29/19 09:46 Arava - PO 20 mg DAILY LISA Administration Multi-Ingredient Lotion 1 applic 12/27/19 00:47 12/27/19 01:10 Eucerin (Small Jar) - TP 1 applic DAILY PRN Administration DRY SKIN Oxycodone HCl 10 mg 12/28/19 11:42 12/29/19 09:46 Roxicodone - PO 10 mg Q6H PRN Administration PAIN LEVEL 6-10 Pramipexole Dihydrochloride 0.25 mg 12/28/19 22:00 12/29/19 09:48 Mirapex - PO 0.25 mg BID LISA Administration Rivaroxaban 20 mg 12/27/19 18:00 12/28/19 17:10 Xarelto PO 20 mg DAILY@1800 LISA Administration Sacubitril/Valsartan 1 tab 12/29/19 10:00 12/29/19 10:50 Entresto 24 Mg-26 Mg Tablet PO 1 tab BID LISA Administration Zolpidem Tartrate 5 mg 12/26/19 22:00 12/28/19 23:13 Ambien - PO 5 mg HS PRN Administration INSOMNIA Home Medications Medication Instructions Recorded Insulin Lispro Protamin/Lispro 22 unit SQ ACDIN 12/15/15 [Humalog Mix 75-25 Kwikpen] Zolpidem Tartrate [Ambien] 10 mg PO HS PRN 06/01/17 Leflunomide [Arava] 20 mg PO DAILY 07/26/18 Torsemide 50 mg PO DAILY 07/26/18 Baclofen 10 mg PO PRN 07/16/19 Rivaroxaban [Xarelto -] 20 mg PO DAILY #30 tablet 10/03/19 Carvedilol [Coreg -] 12.5 mg PO BID 11/23/19 Gabapentin [Neurontin -] 600 mg PO TID 11/23/19 Diazepam 10 mg PO DAILY 12/28/19 Oxycodone HCl/Acetaminophen 1 each PO QID 12/28/19 [Percocet 10-325 mg Tablet] Pramipexole Di-HCl [Mirapex] 0.25 mg PO BID 12/28/19 ASSESSMENT AND PLAN: 74 year old female with history of diastolic CHF, RA, DM 2, HTN, Hx DVT/PE, a fib (on Xarelto), multiple spine surgeries, s/p L4/5 laminectomy then L5/S1 seroma with recent epidural abscess drainage s/p I and D, complex wound closure and wound vac placement 11/25 - sent home on IV Rocephin via PICC 12/03 now returns with SOB for a 2-3 days. No cough/sputum/CP/hemoptysis. No fever/chills. 1. Acute on Chronic Systolic CHF decompensation/known non-ischemic cardiomyopathy No hypoxia, COVID negative. Elevated BNP, symptoms improved with Lasix diuresis Echo - systolic CHF, EF 35-40%, moderate LV hypokinesis Continue Lasix diuresis - dose increased by Cardio. Torsemide held. Cardiology consulted - patient has known non-ischemic cardiomyopathy with prior cardiac caths showing no disease, no nesd for ischemic eval. Trial of Entresto as per Cardio. 2. Recent Epidural Abscess s/p I and D by Spinal Surgery, discharged 12/03 on 4 week course of IV ceftriaxone via PICC ID changed Abx to Ancef while in-patient. Patient reporting foul smelling discharge. Afebrile, Hemodynamically Stable, no leukocytosis. Evaluated by Spinal Surgery - wound vac applied - no plans for any further surgical procedures. Out-patient Spinal Sx follow up. 3. Possible Bacteremia Blood Cx - Gram positive cocci in clusters in 1 bottle likely contaminant Empiric Vancomycin repeat Blood Cx. 4. Paroxysmal Atrial Fibrillation - continue Coreg and Xarelto 5. Hx PE/DVT s/p IVC filter - continue Xarelto 6. DM 2 - uncontrolled, A1c 9.0. Maintain on Novolog sliding scale. 7. RA - on Leflunomide. 8. Normocytic Anemia - B12 352, Iron Sat 7, Folate 11, Ferritin 45. MMA sent. Iron supplemented. Will need out-patient Iron Deficiency work-up. 9. NICHOLE - needs out-patient follow up for CPAP machine DVT Px - on Xarelto.
[2019-12-29] MEDS: BACLOFEN 10 MG TABLET (FP) PO PRN ×2 (15:42→23:39)
[2019-12-29] MEDS: RIVAROXABAN 20 MG TABLET PO SCH (17:14)
[2019-12-29] MEDS ORDERED: MINERAL OIL/PETROLAT/WATER TOPICAL CREAM 113 GM JAR TP PRN (20:32)
--- NOTE | 2019-12-29 21:41 | PN ---
Progress Note, Physician History of Present Illness: Pt seen and examined. Still with some RUGGIERO but no acute distress at this time. Remains afebrile. - Current Medication List Current Medications: Active Medications Acetaminophen (Tylenol -) 650 mg PO Q6H PRN PRN Reason: PAIN LEVEL 1-5 OR FEVER Last Admin: 12/29/19 21:25 Dose: 650 mg Documented by: Baclofen (Lioresal -) 10 mg PO Q8H PRN PRN Reason: MUSCLE SPASM Carvedilol (Coreg -) 12.5 mg PO BID [facility] Last Admin: 12/29/19 21:25 Dose: 12.5 mg Documented by: Ferrous Sulfate (Feosol -) 325 mg PO BIDWM [facility] Furosemide (Lasix Injection -) 80 mg IVPUSH DAILY [facility] Last Admin: 12/29/19 15:43 Dose: 80 mg Documented by: Gabapentin (Neurontin -) 600 mg PO DAILY [facility] Cefazolin Sodium 1 gm/ (Dextrose) 50 mls @ 100 mls/hr IVPB Q8H-IV [facility] Insulin Aspart (Novolog Vial Sliding Scale -) 1 vial SQ ACHS [facility]; Protocol Last Admin: 12/29/19 21:31 Dose: 4 units Documented by: Leflunomide (Arava -) 20 mg PO DAILY [facility] Multi-Ingredient Lotion (Eucerin (Small Jar) -) 1 applic TP Q24H PRN PRN Reason: DRY SKIN Oxycodone HCl (Roxicodone -) 10 mg PO Q6H PRN PRN Reason: PAIN LEVEL 6-10 Last Admin: 12/29/19 21:25 Dose: 10 mg Documented by: Pramipexole Dihydrochloride (Mirapex -) 0.25 mg PO BID [facility] Last Admin: 12/29/19 21:25 Dose: 0.25 mg Documented by: Rivaroxaban (Xarelto) 20 mg PO DAILY@1800 [facility] Sacubitril/Valsartan (Entresto 24 Mg-26 Mg Tablet) 1 tab PO BID [facility] Last Admin: 12/29/19 21:25 Dose: 1 tab Documented by: Zolpidem Tartrate (Ambien -) 5 mg PO HS PRN PRN Reason: INSOMNIA - Objective Vital Signs: Vital Signs Temperature 98.0 F 12/29/19 20:40 Pulse Rate 94 H 12/29/19 20:40 Respiratory Rate 20 05/23/20 20:40 Blood Pressure 151/52 L 12/29/19 20:40 O2 Sat by Pulse Oximetry (%) 94 L 12/29/19 09:00 Constitutional: Yes: No Distress Cardiovascular: Yes: Regular Rate and Rhythm Respiratory: Yes: Diminished (bases) Gastrointestinal: Yes: Normal Bowel Sounds, Soft Wound/Incision: Yes: Other (Spinal wound vac in place) Neurological: Yes: Alert Labs: CBC, BMP 12/29/19 11:30 12/29/19 11:30 INR, PTT INR 1.34 (0.83-1.09) H 12/26/19 14:20 Problem List - Problems (1) Epidural abscess Code(s): G06.2 - EXTRADURAL AND SUBDURAL ABSCESS, UNSPECIFIED (2) Shortness of breath Code(s): R06.02 - SHORTNESS OF BREATH (3) CHF (congestive heart failure) Code(s): I50.9 - HEART FAILURE, UNSPECIFIED (4) Diabetes Code(s): E11.9 - TYPE 2 DIABETES MELLITUS WITHOUT COMPLICATIONS Qualifiers: Diabetes mellitus type: type 2 (5) HTN (hypertension), benign Code(s): I10 - ESSENTIAL (PRIMARY) HYPERTENSION (6) Back pain Code(s): M54.9 - DORSALGIA, UNSPECIFIED Qualifiers: Back pain location: low back pain Chronicity: unspecified Back pain laterality: right Sciatica presence: without sciatica Qualified Code(s): M54.5 - Low back pain (7) History of DVT (deep vein thrombosis) Code(s): Z86.718 - PERSONAL HISTORY OF OTHER VENOUS THROMBOSIS AND EMBOLISM (8) Hypertension Code(s): I10 - ESSENTIAL (PRIMARY) HYPERTENSION (9) Rheumatoid arthritis Code(s): M06.9 - RHEUMATOID ARTHRITIS, UNSPECIFIED Assessment/Plan -- continue Ancef for now -- pt afebrile, wbc remains stable -- wound vac on spinal wound -- monitor O2 sats
[2019-12-29] MEDS ORDERED: diphenhydrAMINE HCL 25 MG CAPSULE (FP) PO ONE (23:11)
[2019-12-29] MEDS: ZOLPIDEM TARTRATE 5 MG TABLET PO PRN (23:39)
[2019-12-30] MEDS ORDERED: DEXTROSE 5%-WATER - 50 ML IVPB ONE ×3 (01:24→17:01)
[2019-12-30] MEDS ORDERED: ceFAZolin SODIUM 1 GM VIAL ONE ×3 (01:24→17:01)
[2019-12-30] MEDS: CEFAZOLIN 1 GM in DEXTROSE 5%-WATER - 50 ML IVPB SCH ×3 (01:56→17:06)
[2019-12-30] MEDS: ACETAMINOPHEN 325 MG TABLET (FP) PO PRN ×2 (06:14→17:54)
[2019-12-30] MEDS: INSULIN SLIDING SCALE (NOVOLOG) 1 VIAL SQ SCH ×4 (06:15→21:51)
[2019-12-30] MEDS: oxyCODONE HCL 5 MG TABLET PO PRN ×2 (06:15→17:52)
--- NOTE | 2019-12-30 07:59 | PN ---
Progress Note, Physician Chief Complaint: leg swelling, sob History of Present Illness: thinks she only urinated twice yesterday. seems to be fairly anxious and fixated on how much she urinates and her fluid status. breathing feels normal 90% of the time, but every once in a while when she changes position in the bed (with difficulty due to back pain and sciatica) she feels that she can't catch her breath for several moments. when went to bedside commode this afternoon she was very breathless upon returning to the bed. feels she is holding her breath when she walks b/c of severe sciatica pain she's having--though not certain the pain was bad at the time she was sob earlier. becomes very anxious when discussing renal function. no orthopnea. legs not swollen. no cp, palpit no cigs - Current Medication List Current Medications: Active Medications Acetaminophen (Tylenol -) 650 mg PO Q6H PRN PRN Reason: PAIN LEVEL 1-5 OR FEVER Last Admin: 12/30/19 06:14 Dose: 650 mg Documented by: Baclofen (Lioresal -) 10 mg PO Q8H PRN PRN Reason: MUSCLE SPASM Last Admin: 12/29/19 23:39 Dose: 10 mg Documented by: Carvedilol (Coreg -) 12.[address] [facility] Last Admin: 12/29/19 21:25 Dose: 12.5 mg Documented by: Ferrous Sulfate (Feosol -) [address] [facility] Furosemide (Lasix Injection -) [address] [facility] Last Admin: 12/29/19 15:43 Dose: 80 mg Documented by: Gabapentin (Neurontin -) [address] [facility] Cefazolin Sodium 1 gm/ (Dextrose) 50 mls @ 100 mls/hr IVPB Q8H-IV [facility] Last Admin: 12/30/19 01:56 Dose: 100 mls/hr Documented by: Insulin Aspart (Novolog Vial Sliding Scale -) [address] [facility]; Protocol Last Admin: 12/30/19 06:15 Dose: 2 units Documented by: Leflunomide (Arava -) [address] [facility] Multi-Ingredient Lotion (Eucerin (Small Jar) -) 1 applic TP Q24H PRN PRN Reason: DRY SKIN Oxycodone HCl (Roxicodone -) 10 mg PO Q6H PRN PRN Reason: PAIN LEVEL 6-10 Last Admin: 12/30/19 06:15 Dose: 10 mg Documented by: Pramipexole Dihydrochloride (Mirapex -) 0.[address] [facility] Last Admin: 12/29/19 21:25 Dose: 0.25 mg Documented by: Rivaroxaban (Xarelto) 20 mg PO DAILY@1800 [facility] Sacubitril/Valsartan (Entresto 24 Mg-26 Mg Tablet) [address] [facility] Last Admin: 12/29/19 21:25 Dose: 1 tab Documented by: Zolpidem Tartrate (Ambien -) 5 mg PO HS PRN PRN Reason: INSOMNIA Last Admin: 12/29/19 23:39 Dose: 5 mg Documented by: - Objective Vital Signs: Vital Signs Temperature 97.3 F L 12/30/19 06:05 Pulse Rate 66 12/30/19 06:05 Respiratory Rate 20 12/30/19 06:05 Blood Pressure 117/69 12/30/19 06:05 O2 Sat by Pulse Oximetry (%) 95 12/29/19 21:00 Constitutional: Yes: No Distress, Calm Eyes: No: Sclera Icterus HENT: No: Nasal Congestion Cardiovascular: Yes: Regular Rate and Rhythm, S1, S2, Other (PMI non diplaced). No: JVD, Gallop, Murmur Respiratory: Yes: CTA Bilaterally. No: Accessory Muscle Use Gastrointestinal: Yes: Normal Bowel Sounds, Soft. No: Tenderness Musculoskeletal: Yes: Other (No kyphosis) Extremities: No: Cyanosis Edema: No Integumentary: No: Jaundice Neurological: Yes: Alert, Oriented (x3) Psychiatric: No: Agitated Labs: CBC, BMP 12/29/19 11:30 12/29/19 11:30 INR, PTT INR 1.34 (0.83-1.09) H 12/26/19 14:20 Assessment/Plan tele: NSR, artifact IMP: Epidural abscess, wound infection Acute on chronic systolic CHF, with what appears to be new LV dysfx from 2018 Moderate MR Prolonged QT PAF HTN 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 diabetic (uncontrolled glycemic status, does not f/u with PMD despite repeatedly advised to do so) -EF now moderately reduced (35-40%, global), last echo here 2017 was 50-55%. -has not had significant burden of AF, doubt tachy-CMP here but will monitor tele -BNP 6K over baseline 2-3K. was receiving IV Lasix 40 QD: edema resolved and no JVD noted. however no reliable weights trend, no significant diuretic effect noted by pt, and continues to feel SOB with little activity. given lasix to 80 IV QD x 1 trial 12/28--wt down today 2 lbs vs yest, bun/creat up slightly. -suspect ongoing sob with repositioning in bed is related to chronic pains and deconditioning (immobile for many months now). -she is not exhibiting her typical CHF findings (edema, orthopnea). appears euvolemic on exam and bun/creat up slightly today. BNP down to baseline (3K). however she remains very breathless with little activity: ? due to holding her breath in anticipation of sciatica pain, vs hiding volume with increased intracardiac pressures still. will repeat dose of lasix 80 IVP now with metolazone 2.5 x 1. -reassess wt and bmp in am--if bun/creat rises further and pt has no more sob, will likely stop iv diuresis. -will consider nuclear stress test on 12/31 if remains with unexplained sob. -Cont Coreg -low dose DORENE held during recent admit due to mild hyperkalemia and soft BPs (was on lisinopril 5 qd then). given current EF, pt has mortality benefit from Entresto. K normal, BP currently mostly > 110. Will try Entresto 24-26 BID dose and monitor K/BP closely. Prolonged QTC: -F/u ECGs -Keep K+ and Mg2+ normalized -Avoid / minimize QT prolonging meds VTach: -NSVT on tele -cont bb -HF optimization (diuresis) as doing -replete K/Mg to 4/2 PAF: -Cont Coreg and Xarelto -Holter to assess rate control DVT/PE with history of filter: -cont with AC NICHOLE: -not treated, pt has not followed up for cpap therapy
[2019-12-30 08:32] LABS: HEMATOCRIT 32.5 % (32.4-45.2); HEMOGLOBIN 10.4 GM/dL (10.7-15.3); MCHC 32.1 g/dl (32.0-36.0); MEAN CELL VOLUME 84.1 fl (80-96); MEAN PLT VOLUME 7.7 fl (7.5-11.1); PLATELET COUNT 224 K/MM3 (134-434); RBC 3.87 M/mm3 (3.60-5.2); RDW 19.8 % (11.6-15.6)
[2019-12-30 08:53] LABS: BLOOD UREA NITROGEN 31.5 mg/dL (7-18); CALCIUM 8.3 mg/dL (8.5-10.1); CREATININE 1.2 mg/dL (0.55-1.3); MAGNESIUM 2.2 mg/dL (1.8-2.4); PHOSPHOROUS 3.6 mg/dL (2.5-4.9)
[2019-12-30] MEDS ORDERED: PT OWN MED DRAWER 7, Y5N ONE (09:13)
[2019-12-30] MEDS: FERROUS SO4 325 MG TABLET (FP) PO SCH ×2 (10:21→17:02)
[2019-12-30] MEDS: CARVEDILOL 12.5 MG TABLET (FP) PO SCH ×2 (10:22→21:48)
[2019-12-30] MEDS: LEFLUNOMIDE 10 MG TABLET PO SCH (10:23)
[2019-12-30] MEDS: SACUBITRIL/VALSARTAN 24 MG-26 MG TABLET PO SCH ×2 (10:23→21:48)
[2019-12-30] MEDS: FUROSEMIDE 40 MG/4 ML INJECTABLE VIAL IVPUSH SCH (10:27)
[2019-12-30] MEDS: PRAMIPEXOLE DIHYDROCHLORIDE 0.25 MG TABLET PO SCH ×2 (10:37→21:48)
[2019-12-30] MEDS: GABAPENTIN 300 MG CAPSULE PO SCH (10:37)
[2019-12-30 12:23] LABS: N-TERMINAL BNP 3077.7 pg/ml (5-125)
--- NOTE | 2019-12-30 12:44 | PN ---
Teaching Attending Note Name of Resident: Erick Interiano ATTENDING PHYSICIAN STATEMENT I saw and evaluated the patient. I reviewed the resident's note and discussed the case with the resident. I agree with the resident's findings and plan as documented. SUBJECTIVE: SOB resolving, still some dyspnea on exertion. No cough/sputum/CP/palpitations/hemoptysis. No fever/chills. OBJECTIVE: Afebrile, Hemodynamically Stable. Anxious, emotionally labile. Last Vital Signs Temp Pulse Resp BP Pulse Ox 97.3 F L 68 20 130/69 95 12/30/19 06:05 12/30/19 10:00 12/30/19 10:00 12/30/19 10:12/30/19 09:00 Heart - S1, S2, no murmurs Lungs - good air entry, mildly reduced at bases. Abdomen - high BMI, soft, non-tender. Bowel Sounds normal. Extremities - Mild edema, no calf tenderness. RUE PICC. MS - Spinal surgical wound with wound vac. Laboratory Results - last 24 hr 12/29/19 12/29/19 12/29/19 11:30 11:30 21:28 WBC 6.8 RBC 3.66 Hgb 9.9 L Hct 30.7 L MCV 84.0 MCH 26.9 MCHC 32.1 RDW 19.7 H Plt Count 221 MPV 8.2 Absolute Neuts (auto) 4.0 Neutrophils % 59.0 Lymphocytes % 23.3 Monocytes % 12.3 H Eosinophils % 4.1 Basophils % 1.3 Nucleated RBC % 0 Sodium 135 L Potassium 3.8 Chloride 101 Carbon Dioxide 26 Anion Gap 8 BUN 28.1 H Creatinine 1.0 Est GFR (CKD-EPI)AfAm 64.73 Est GFR (CKD-EPI)NonAf 55.85 POC Glucometer 202 Random Glucose 212 H Calcium 8.3 L Phosphorus 3.0 Magnesium 2.3 Total Bilirubin 0.7 AST 15 ALT 9 L Alkaline Phosphatase 138 H B-Natriuretic Peptide Total Protein 6.4 Albumin 2.8 L 12/30/19 12/30/19 12/30/19 06:09 07:20 07:20 WBC 6.0 RBC 3.87 Hgb 10.4 L Hct 32.5 MCV 84.1 MCH 27.0 MCHC 32.1 RDW 19.8 H Plt Count 224 MPV 7.7 Absolute Neuts (auto) Neutrophils % Lymphocytes % Monocytes % Eosinophils % Basophils % Nucleated RBC % Sodium 137 Potassium 4.0 Chloride 104 Carbon Dioxide 24 Anion Gap 9 BUN 31.5 H Creatinine 1.2 Est GFR (CKD-EPI)AfAm 51.92 Est GFR (CKD-EPI)NonAf 44.80 POC Glucometer 164 Random Glucose 166 H Calcium 8.3 L Phosphorus 3.6 Magnesium 2.2 Total Bilirubin AST ALT Alkaline Phosphatase B-Natriuretic Peptide 3077.7 H Total Protein Albumin 12/30/19 11:26 WBC RBC Hgb Hct MCV MCH MCHC RDW Plt Count MPV Absolute Neuts (auto) Neutrophils % Lymphocytes % Monocytes % Eosinophils % Basophils % Nucleated RBC % Sodium Potassium Chloride Carbon Dioxide Anion Gap BUN Creatinine Est GFR (CKD-EPI)AfAm Est GFR (CKD-EPI)NonAf POC Glucometer 264 Random Glucose Calcium Phosphorus Magnesium Total Bilirubin AST ALT Alkaline Phosphatase B-Natriuretic Peptide Total Protein Albumin Current Medications Generic Name Dose Route Start Last Admin Trade Name Freq PRN Reason Stop Dose Admin Acetaminophen 650 mg 12/29/19 20:32 12/30/19 06:14 Tylenol - PO 650 mg Q6H PRN Administration PAIN LEVEL 1-5 OR FEVER Baclofen 10 mg 12/29/19 20:32 12/29/19 23:39 Lioresal - PO 10 mg Q8H PRN Administration MUSCLE SPASM Carvedilol 12.5 mg 12/29/19 22:00 12/30/19 10:22 Coreg - PO 12.5 mg BID LISA Administration Diazepam 10 mg 12/30/19 12:30 Valium - PO DAILY LISA Ferrous Sulfate 325 mg 12/30/19 08:00 12/30/19 10:21 Feosol - PO 325 mg BIDWM LISA Administration Gabapentin 600 mg 12/30/19 10:00 12/30/19 10:37 Neurontin - PO 600 mg DAILY LISA Administration Cefazolin Sodium 1 gm/ 50 mls @ 100 mls/hr 12/30/19 02:00 12/30/19 10:21 Dextrose IVPB 100 mls/hr Q8H-IV LISA Administration Insulin Aspart 1 vial 12/29/19 22:00 12/30/19 11:48 Novolog Vial Sliding Scale - SQ 6 units ACHS LISA Administration Protocol Leflunomide 20 mg 12/30/19 10:00 12/30/19 10:23 Arava - PO 20 mg DAILY LISA Administration Multi-Ingredient Lotion 1 applic 12/29/19 20:32 Eucerin (Small Jar) - TP Q24H PRN DRY SKIN Oxycodone HCl 10 mg 12/29/19 20:32 12/30/19 06:15 Roxicodone - PO 10 mg Q6H PRN Administration PAIN LEVEL 6-10 Pramipexole Dihydrochloride 0.25 mg 12/29/19 22:00 12/30/19 10:37 Mirapex - PO 0.25 mg BID LISA Administration Rivaroxaban 20 mg 12/30/19 18:00 Xarelto PO DAILY@1800 [facility] Sacubitril/Valsartan 1 tab 12/29/19 10:00 12/30/19 10:23 Entresto 24 Mg-26 Mg Tablet PO 1 tab BID [facility] Administration Torsemide 50 mg 12/31/19 10:00 Demadex - PO DAILY [facility] Zolpidem Tartrate 5 mg 12/29/19 20:32 12/29/19 23:39 Ambien - PO 5 mg HS PRN Administration INSOMNIA Home Medications Medication Instructions Recorded Insulin Lispro Protamin/Lispro 22 unit SQ ACDIN 12/15/15 [Humalog Mix 75-25 Kwikpen] Zolpidem Tartrate [Ambien] 10 mg PO HS PRN 06/01/17 Leflunomide [Arava] 20 mg PO DAILY 07/26/18 Torsemide 50 mg PO DAILY 07/26/18 Baclofen 10 mg PO PRN 07/16/19 Rivaroxaban [Xarelto -] 20 mg PO DAILY #30 tablet 10/03/19 Carvedilol [Coreg -] 12.5 mg PO BID 11/23/19 Gabapentin [Neurontin -] 600 mg PO TID 11/23/19 Diazepam 10 mg PO DAILY 12/28/19 Oxycodone HCl/Acetaminophen 1 each PO QID 12/28/19 [Percocet 10-325 mg Tablet] Pramipexole Di-HCl [Mirapex] 0.25 mg PO BID 12/28/19 ASSESSMENT AND PLAN: 74 year old female with history of diastolic CHF, RA, DM 2, HTN, Hx DVT/PE, a fib (on Xarelto), multiple spine surgeries, s/p L4/5 laminectomy then L5/S1 seroma with recent epidural abscess drainage s/p I and D, complex wound closure and wound vac placement 11/25 - sent home on IV Rocephin via PICC 12/03 now returns with SOB for a 2-3 days. No cough/sputum/CP/hemoptysis. No fever/chills. 1. Acute on Chronic Systolic CHF decompensation/known non-ischemic cardiomyopathy No hypoxia, COVID negative. Elevated BNP, symptoms improved with Lasix diuresis Echo - systolic CHF, EF 35-40%, moderate LV hypokinesis Cardiology consulted - patient has known non-ischemic cardiomyopathy with prior cardiac caths showing no disease, no need for ischemic eval. Trial of Entresto as per Cardio. IV Lasix diuresis stopped and patient resumed on Torsemide 50mg. Daily weights - cardio out-patient work-up. 2. Recent Epidural Abscess s/p I and D by Spinal Surgery, discharged 12/03 on 4 week course of IV ceftriaxone via PICC ID changed Abx to Ancef while in-patient. Afebrile, Hemodynamically Stable, no leukocytosis. Blood Cx - Staph epi 1 bottle, likely contaminant, repeat Blood cx neg x 2. Evaluated by Spinal Surgery - wound vac applied - no plans for any further surgical procedures. Out-patient Spinal Sx follow up. Awaiting wound vac to be provided at home prior to discharge, otherwise medically stable. Chronically on Valium/Oxycodone at home - resumed. 3. Paroxysmal Atrial Fibrillation - continue Coreg and Xarelto 4. Hx PE/DVT s/p IVC filter - continue Xarelto 5. DM 2 - uncontrolled, A1c 9.0. Maintain on Novolog sliding scale. 6. RA - on Leflunomide. 7. Normocytic Anemia - B12 352, Iron Sat 7, Folate 11, Ferritin 45. MMA sent. Iron supplemented. Will need out-patient Iron Deficiency work-up. 8. NICHOLE - needs out-patient follow up for CPAP machine DVT Px - on Xarelto.
[2019-12-30] MEDS: diazePAM 5 MG TABLET PO SCH (13:27)
--- NOTE | 2019-12-30 14:13 | PN ---
Physical Exam: SUBJECTIVE: Patient seen and examined. Afebrile and asymptomatic. No overnight events. C/o of pain. Otherwise no issues. Wound vac in place. OBJECTIVE: Vital Signs Period Temp Pulse Resp BP Sys/Marcelo Pulse Ox Last 24 Hr 97.3 F-98.2 F 64-94 18-20 98-151/47-69 95-95 GENERAL: The patient is awake, alert, and fully oriented, in no acute distress. EYES: PERRL, extraocular movements intact, No ptosis. ENT: oropharynx clear without exudates, moist mucous membranes. LUNGS: Breath sounds equal, clear to auscultation bilaterally, no wheezes, no crackles HEART: Regular rate and rhythm, S1, S2 without murmur, rub or gallop. ABDOMEN: Soft, nontender, nondistended, normoactive bowel sounds, no guarding EXTREMITIES: 2+ pulses, warm, well-perfused, no edema. Back: Spinal surgical wound, sutures intact, appears closed with some crusted regions, no surrounding cellulitis, erythema. No drainage noted. Wound vac intact SKIN: Warm, dry, normal turgor, no rashes or lesions noted Laboratory Results - last 24 hr 12/29/19 12/30/19 12/30/19 21:28 06:09 07:20 WBC RBC Hgb Hct MCV MCH MCHC RDW Plt Count MPV Sodium 137 Potassium 4.0 Chloride 104 Carbon Dioxide 24 Anion Gap 9 BUN 31.5 H Creatinine 1.2 Est GFR (CKD-EPI)AfAm 51.92 Est GFR (CKD-EPI)NonAf 44.80 POC Glucometer 202 164 Random Glucose 166 H Calcium 8.3 L Phosphorus 3.6 Magnesium 2.2 B-Natriuretic Peptide 3077.7 H 12/30/19 12/30/19 07:20 11:26 WBC 6.0 RBC 3.87 Hgb 10.4 L Hct 32.5 MCV 84.1 MCH 27.0 MCHC 32.1 RDW 19.8 H Plt Count 224 MPV 7.7 Sodium Potassium Chloride Carbon Dioxide Anion Gap BUN Creatinine Est GFR (CKD-EPI)AfAm Est GFR (CKD-EPI)NonAf POC Glucometer 264 Random Glucose Calcium Phosphorus Magnesium B-Natriuretic Peptide Active Medications Generic Name Dose Route Start Last Admin Trade Name Freq PRN Reason Stop Dose Admin Acetaminophen 650 mg 12/29/19 20:32 12/30/19 06:14 Tylenol - PO 650 mg Q6H PRN Administration PAIN LEVEL 1-5 OR FEVER Baclofen 10 mg 12/29/19 20:32 12/29/19 23:39 Lioresal - PO 10 mg Q8H PRN Administration MUSCLE SPASM Carvedilol 12.5 mg 12/29/19 22:00 12/30/19 10:22 Coreg - PO 12.5 mg BID LISA Administration Diazepam 10 mg 12/30/19 12:30 12/30/19 13:27 Valium - PO 10 mg DAILY LISA Administration Ferrous Sulfate 325 mg 12/30/19 08:00 12/30/19 10:21 Feosol - PO 325 mg BIDWM LISA Administration Gabapentin 600 mg 12/30/19 10:00 12/30/19 10:37 Neurontin - PO 600 mg DAILY LISA Administration Cefazolin Sodium 1 gm/ 50 mls @ 100 mls/hr 12/30/19 02:00 12/30/19 10:21 Dextrose IVPB 100 mls/hr Q8H-IV LISA Administration Insulin Aspart 1 vial 12/29/19 22:00 12/30/19 11:48 Novolog Vial Sliding Scale - SQ 6 units ACHS LISA Administration Protocol Leflunomide 20 mg 12/30/19 10:00 12/30/19 10:23 Arava - PO 20 mg DAILY LISA Administration Multi-Ingredient Lotion 1 applic 12/29/19 20:32 Eucerin (Small Jar) - TP Q24H PRN DRY SKIN Oxycodone HCl 10 mg 12/29/19 20:32 12/30/19 06:15 Roxicodone - PO 10 mg Q6H PRN Administration PAIN LEVEL 6-10 Pramipexole Dihydrochloride 0.25 mg 12/29/19 22:00 12/30/19 10:37 Mirapex - PO 0.25 mg BID [facility] Administration Rivaroxaban 20 mg 12/30/19 18:00 Xarelto PO DAILY@1800 [facility] Sacubitril/Valsartan 1 tab 12/29/19 10:00 12/30/19 10:23 Entresto 24 Mg-26 Mg Tablet PO 1 tab BID [facility] Administration Torsemide 50 mg 12/31/19 10:00 Demadex - PO DAILY [facility] Zolpidem Tartrate 5 mg 12/29/19 20:32 12/29/19 23:39 Ambien - PO 5 mg HS PRN Administration INSOMNIA ASSESSMENT/PLAN: 74 y/o F, pmh of d-CHF, RA, DM 2, HTN, Hx DVT/PE, a fib (on Xarelto), multiple spine surgeries, s/p L4/5 laminectomy then L5/S1 seroma with recent epidural abscess drainage s/p I and D, complex wound closure and wound vac placement 11/25-sent home on IV Rocephin via PICC 12/03 returns w/ shortness of breath for 3 days admitted for CHF exacerbation #Acute Sys-CHF exacerbation r/o COVID No hypoxia, COVID negative lasix d/shon 50mg torsemide resumed Echo -EF 35-40%, moderate LV hypokinesis, LA severely dilated, declined from previous Echo in 2018- w/ EF 55% Cardiology consult appreciate-patient has known non-ischemic cardiomyopathy with prior cardiac caths showing no disease, no need for ischemic eval. as per cardio to f/u outpt Entresto trail started Discussed with SW for wound vac authorization, pending #Epidural Abscess s/p I and D discharged 12/03 on 4 week course of IV ceftriaxone via PICC 3 weeks completed abx so far Discussed with Dr. Borjas, plans to consider wash out on tuesday, but for now maintain Wound vac and control pain Oxy 10 Q6 PRN meds reconciled with Rx Ancef while awaiting surgical evaluation 1 BCx staph epi likely contaminate- r/p BCx x2 neg Valium and Oxy cont #Paroxysmal Atrial Fibrillation Coreg Xarelto Holter as per cardio to assess rate #Hx PE/DVT Xarelto #DM uncontrolled A1c 9.0 BGM ISS #RA Leflunomide. #Normocytic Anemia 2/2 to anemia of chronic disease Iron/Ferritin/B12/Folate levels- consistent with above ferrous sulfate started #NICHOLE not treated, pt has not followed up for cpap therapy #DVT Ppx on Xarelto FEN monitor lytes Diabetic diet Dispo: cont xarelto, cont lasix, f/u wound vac auth Visit type - Emergency Visit Emergency Visit: Yes ED Registration Date: 12/26/19 Care time: The patient presented to the Emergency Department on the above date and was hospitalized for further evaluation of their emergent condition. - New Patient This patient is new to me today: Yes Date on this admission: 02/06/20 - Critical Care Critical Care patient: No - Discharge Referral Referred to [facility] No ATTENDING PHYSICIAN STATEMENT I saw and evaluated the patient. I reviewed the resident's note and discussed the case with the resident. I agree with the resident's findings and plan as documented. SUBJECTIVE: OBJECTIVE: ASSESSMENT AND PLAN:
[2019-12-30] MEDS ORDERED: FUROSEMIDE 40 MG/4 ML INJECTABLE VIAL IVPUSH ONE (15:25)
[2019-12-30] MEDS ORDERED: METOLAZONE 2.5 MG TABLET (FP) PO ONE (15:26)
[2019-12-30] MEDS ORDERED: POTASSIUM CHLORIDE ORAL LIQUID 20 MEQ/15 ML PO ONE (15:27)
--- NOTE | 2019-12-30 15:50 | EKG ---
Test Reason : Blood Pressure : / mmHG Vent. Rate : 110 BPM Atrial Rate : 110 BPM P-R Int : 000 ms QRS Dur : 082 ms QT Int : 332 ms P-R-T Axes : 000 072 -03 degrees QTc Int : 449 ms ATRIAL FIBRILLATION WITH RAPID VENTRICULAR RESPONSE WITH PREMATURE VENTRICULAR OR ABERRANTLY CONDUCTED COMPLEXES T WAVE ABNORMALITY, CONSIDER INFERIOR ISCHEMIA ABNORMAL ECG WHEN COMPARED WITH ECG OF 26-DEC-2019 14:14, ATRIAL FIBRILLATION HAS REPLACED SINUS RHYTHM INVERTED T WAVES HAVE REPLACED NONSPECIFIC T WAVE ABNORMALITY IN INFERIOR LEADS Confirmed by MD NIURKA, MENA ([id number]) on 12/30/2019 3:50:24 PM Referred By: Confirmed By:MENA BAH MD
[2019-12-30] MEDS: RIVAROXABAN 20 MG TABLET PO SCH (17:02)
[2019-12-30] MEDS: BACLOFEN 10 MG TABLET (FP) PO PRN (21:48)
--- NOTE | 2019-12-30 23:06 | PN ---
Progress Note (short form) - Note Progress Note: Was notified by nursing that when the patient was examined by nursing, that her PICC line had come out by about 20cm. Advised nursing that PICC line would need to be removed and that a new line needs to be placed. New line was placed. Came to evalaute patient and remove the PICC line in its entirity and noted that the PICC line had completed dislodged and patient had self removed the line. Tip of the line was noted at 40cm. Previous documentation on placement of the PICC line had noted that the line was trimmed to 40cm.
[2019-12-31] MEDS: ACETAMINOPHEN 325 MG TABLET (FP) PO PRN ×2 (00:06→06:42)
[2019-12-31] MEDS: ZOLPIDEM TARTRATE 5 MG TABLET PO PRN (00:06)
[2019-12-31] MEDS: oxyCODONE HCL 5 MG TABLET PO PRN ×3 (00:06→23:30)
[2019-12-31] MEDS ORDERED: DEXTROSE 5%-WATER - 50 ML IVPB ONE ×3 (01:13→17:20)
[2019-12-31] MEDS ORDERED: ceFAZolin SODIUM 1 GM VIAL ONE ×3 (01:13→17:19)
[2019-12-31] MEDS: CEFAZOLIN 1 GM in DEXTROSE 5%-WATER - 50 ML IVPB SCH ×3 (01:42→17:20)
[2019-12-31] MEDS: INSULIN SLIDING SCALE (NOVOLOG) 1 VIAL SQ SCH ×4 (06:19→21:17)
[2019-12-31 07:49] LABS: BASO % 1.4 % (0-2.0); EOS % 7.6 % (0-4.5); HEMATOCRIT 34.5 % (32.4-45.2); LYMPH % 27.2 % (8-40); MCH 26.8 pg (25.7-33.7); MCHC 31.9 g/dl (32.0-36.0); MEAN CELL VOLUME 84.1 fl (80-96); MONO % 12.7 % (3.8-10.2); NEUT % 51.1 % (42.8-82.8); PLATELET COUNT 251 K/MM3 (134-434); RDW 20.2 % (11.6-15.6); WHITE BLOOD COUNT 6.1 K/mm3 (4.0-10.0)
[2019-12-31 07:58] LABS: BILIRUBIN,TOTAL 0.6 mg/dL (0.2-1); BLOOD UREA NITROGEN 31.1 mg/dL (7-18); CALCIUM 8.8 mg/dL (8.5-10.1); CREATININE 1.1 mg/dL (0.55-1.3); MAGNESIUM 2.3 mg/dL (1.8-2.4); PHOSPHOROUS 3.3 mg/dL (2.5-4.9); POTASSIUM 4.6 mmol/L (3.5-5.1); TOT PROT 6.6 g/dl (6.4-8.2)
--- NOTE | 2019-12-31 08:01 | PN ---
Progress Note, Physician Chief Complaint: leg swelling, sob History of Present Illness: urinated more after lasix/metolazone combo yesterday. wt down 2 lbs today. hasn't been moving much in bed or getting out of bed--cannot tell if RUGGIERO is any better. not sure if she urinated after today's lasix/metolazone in AM, notes gown is very damp. no leg swelling. no cp, palp - Current Medication List Current Medications: Active Medications Acetaminophen (Tylenol -) 650 mg PO Q6H PRN PRN Reason: PAIN LEVEL 1-5 OR FEVER Last Admin: 12/31/19 06:42 Dose: 650 mg Documented by: Baclofen (Lioresal -) 10 mg PO Q8H PRN PRN Reason: MUSCLE SPASM Last Admin: 12/30/19 21:48 Dose: 10 mg Documented by: Carvedilol (Coreg -) 12.5 mg PO BID [facility] Last Admin: 12/30/19 21:48 Dose: 12.5 mg Documented by: Diazepam (Valium -) 10 mg PO DAILY [facility] Last Admin: 12/30/19 13:27 Dose: 10 mg Documented by: Ferrous Sulfate (Feosol -) 325 mg PO BIDWM [facility] Last Admin: 12/30/19 17:02 Dose: 325 mg Documented by: Gabapentin (Neurontin -) 600 mg PO DAILY [facility] Last Admin: 12/30/19 10:37 Dose: 600 mg Documented by: Cefazolin Sodium 1 gm/ (Dextrose) 50 mls @ 100 mls/hr IVPB Q8H-IV [facility] Last Admin: 12/31/19 01:42 Dose: 100 mls/hr Documented by: Insulin Aspart (Novolog Vial Sliding Scale -) 1 vial SQ ACHS [facility]; Protocol Last Admin: 12/31/19 06:19 Dose: 2 units Documented by: Leflunomide (Arava -) 20 mg PO DAILY [facility] Last Admin: 12/30/19 10:23 Dose: 20 mg Documented by: Multi-Ingredient Lotion (Eucerin (Small Jar) -) 1 applic TP Q24H PRN PRN Reason: DRY SKIN Oxycodone HCl (Roxicodone -) 10 mg PO Q6H PRN PRN Reason: PAIN LEVEL 6-10 Last Admin: 12/31/19 06:42 Dose: 10 mg Documented by: Pramipexole Dihydrochloride (Mirapex -) 0.25 mg PO BID [facility] Last Admin: 12/30/19 21:48 Dose: 0.25 mg Documented by: Rivaroxaban (Xarelto) 20 mg PO DAILY@1800 [facility] Last Admin: 12/30/19 17:02 Dose: 20 mg Documented by: Sacubitril/Valsartan (Entresto 24 Mg-26 Mg Tablet) 1 tab PO BID [facility] Last Admin: 12/30/19 21:48 Dose: 1 tab Documented by: Zolpidem Tartrate (Ambien -) 5 mg PO HS PRN PRN Reason: INSOMNIA Last Admin: 12/31/19 00:06 Dose: 5 mg Documented by: - Objective Vital Signs: Vital Signs Temperature 98.1 F 12/31/19 06:00 Pulse Rate 75 12/31/19 06:00 Respiratory Rate 12/31/19 06:00 Blood Pressure 128/65 12/31/19 06:00 O2 Sat by Pulse Oximetry (%) 97 12/30/19 21:00 Constitutional: Yes: Well Nourished, No Distress, Calm Eyes: No: Ptosis, Sclera Icterus Neck: Yes: Supple Cardiovascular: Yes: Regular Rate and Rhythm Respiratory: Yes: Regular. No: Accessory Muscle Use Extremities: No: Cyanosis Edema: No Neurological: Yes: Alert, Oriented Psychiatric: No: Agitated Labs: CBC, BMP 12/31/19 06:30 INR, PTT INR 1.34 (0.83-1.09) H 12/26/19 14:20 Assessment/Plan tele: NSR, artifact, VT x 3b IMP: Epidural abscess, wound infection Acute on chronic systolic CHF, with what appears to be new LV dysfx from 2018 Moderate MR Prolonged QT PAF HTN 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 diabetic (uncontrolled glycemic status, does not f/u with PMD despite repeatedly advised to do so) -EF now moderately reduced (35-40%, global), last echo here 2018 was 50-55%. -has not had significant burden of AF, doubt tachy-CMP here but will monitor tele -BNP 6K over baseline 2-3K. was receiving IV Lasix 40 QD: edema resolved and no JVD noted. however no reliable weights trend, no significant diuretic effect noted by pt, and continues to feel SOB with little activity. given lasix to 80 IV QD x 1 trial 12/28--wt down today 2 lbs vs yest, bun/creat up slightly. -suspect ongoing sob with repositioning in bed is related to chronic pains and deconditioning (immobile for many months now). -she is not exhibiting her typical CHF findings (edema, orthopnea). appears euvolemic on exam, BNP back down to baseline (3K). however she remains very silvano thless with little activity: ? due to holding her breath in anticipation of sciatica pain, vs hiding volume with increased intracardiac pressures still. received lasix 80 IVP x2, with metolazone 2.5 x 1 yesterday--today weight down 2 lb (197), labs stable. will give BID lasix with metolazone today. -reassess wt and bmp in am--if bun/creat rises further and pt has no more sob, will likely stop iv diuresis. -will consider nuclear stress test on 12/31 if remains with unexplained sob. -Cont Coreg -low dose DORENE held during recent admit due to mild hyperkalemia and soft BPs ( was on lisinopril 5 qd then). given current EF, pt has mortality benefit from Entresto. K normal, BP currently mostly > 110. Will try Entresto 24-26 BID dose and monitor K/BP closely. Prolonged QTC: -F/u ECGs -Keep K+ and Mg2+ normalized -Avoid / minimize QT prolonging meds VTach: -NSVT on tele -cont bb -HF optimization (diuresis) as doing -replete K/Mg to 4/ PAF: -Cont Coreg and Xarelto -Holter to assess rate control DVT/PE with history of filter: -cont with AC NICHOLE: -not treated, pt has not followed up for cpap therapy
[2019-12-31] MEDS ORDERED: FUROSEMIDE 40 MG/4 ML INJECTABLE VIAL IVPUSH ONE ×2 (09:30→15:00)
[2019-12-31] MEDS ORDERED: METOLAZONE 2.5 MG TABLET (FP) PO ONE ×2 (09:31→15:10)
[2019-12-31] MEDS ORDERED: TORSEMIDE 20 MG TABLET (FP) PO SCH (10:00)
[2019-12-31] MEDS: diazePAM 5 MG TABLET PO SCH (10:23)
[2019-12-31] MEDS: FERROUS SO4 325 MG TABLET (FP) PO SCH ×2 (10:23→17:20)
[2019-12-31] MEDS: CARVEDILOL 12.5 MG TABLET (FP) PO SCH ×2 (10:23→21:48)
[2019-12-31] MEDS: PRAMIPEXOLE DIHYDROCHLORIDE 0.25 MG TABLET PO SCH ×2 (10:23→21:49)
[2019-12-31] MEDS: GABAPENTIN 300 MG CAPSULE PO SCH (10:24)
[2019-12-31] MEDS: LEFLUNOMIDE 10 MG TABLET PO SCH (10:24)
[2019-12-31] MEDS: SACUBITRIL/VALSARTAN 24 MG-26 MG TABLET PO SCH ×2 (10:24→21:17)
--- NOTE | 2019-12-31 12:06 | PN ---
Teaching Attending Note Name of Resident: Tati Mcgregor ATTENDING PHYSICIAN STATEMENT I saw and evaluated the patient. I reviewed the resident's note and discussed the case with the resident. I agree with the resident's findings and plan as documented. SUBJECTIVE: SOB appears to be resolving, still reports some dyspnea on exertion. No cough/sputum/CP/palpitations/hemoptysis. No fever/chills. OBJECTIVE: Afebrile, Hemodynamically Stable. Appears comfortable. Last Vital Signs Temp Pulse Resp BP Pulse Ox 98.1 F 75 20 128/65 97% on 2L 12/31/19 06:00 12/31/19 06:00 12/31/19 06:00 12/31/19 06:00 12/30/19 21:00 Heart - S1, S2, no murmurs Lungs - good air entry, mildly reduced at bases. Abdomen - high BMI, soft, non-tender. Bowel Sounds normal. Extremities - Mild edema, no calf tenderness. RUE PICC line removed. MS - Spinal surgical wound with wound vac. Laboratory Results - last 24 hr 12/30/19 12/30/19 12/30/19 07:20 16:55 21:50 WBC RBC Hgb Hct MCV MCH MCHC RDW Plt Count MPV Absolute Neuts (auto) Neutrophils % Lymphocytes % Monocytes % Eosinophils % Basophils % Nucleated RBC % Sodium Potassium Chloride Carbon Dioxide Anion Gap BUN Creatinine Est GFR (CKD-EPI)AfAm Est GFR (CKD-EPI)NonAf POC Glucometer 136 178 Random Glucose Calcium Phosphorus Magnesium Total Bilirubin AST ALT Alkaline Phosphatase B-Natriuretic Peptide 3077.7 H Total Protein Albumin 12/31/19 12/31/19 12/31/19 06:19 06:30 06:30 WBC 6.1 RBC 4.10 Hgb 11.0 Hct 34.5 MCV 84.1 MCH 26.8 MCHC 31.9 L RDW 20.2 H Plt Count 251 MPV 8.0 Absolute Neuts (auto) 3.1 Neutrophils % 51.1 Lymphocytes % 27.2 Monocytes % 12.7 H Eosinophils % 7.6 H D Basophils % 1.4 Nucleated RBC % 0 Sodium 138 Potassium 4.6 Chloride 101 Carbon Dioxide 28 Anion Gap 8 BUN 31.1 H Creatinine 1.1 Est GFR (CKD-EPI)AfAm 57.68 Est GFR (CKD-EPI)NonAf 49.77 POC Glucometer 161 Random Glucose 180 H Calcium 8.8 Phosphorus 3.3 Magnesium 2.3 Total Bilirubin 0.6 AST 18 ALT 6 L Alkaline Phosphatase 145 H B-Natriuretic Peptide Total Protein 6.6 Albumin 3.0 L 12/31/19 11:53 WBC RBC Hgb Hct MCV MCH MCHC RDW Plt Count MPV Absolute Neuts (auto) Neutrophils % Lymphocytes % Monocytes % Eosinophils % Basophils % Nucleated RBC % Sodium Potassium Chloride Carbon Dioxide Anion Gap BUN Creatinine Est GFR (CKD-EPI)AfAm Est GFR (CKD-EPI)NonAf POC Glucometer 186 Random Glucose Calcium Phosphorus Magnesium Total Bilirubin AST ALT Alkaline Phosphatase B-Natriuretic Peptide Total Protein Albumin Current Medications Generic Name Dose Route Start Last Admin Trade Name Freq PRN Reason Stop Dose Admin Acetaminophen 650 mg 12/29/19 20:32 12/31/19 06:42 Tylenol - PO 650 mg Q6H PRN Administration PAIN LEVEL 1-5 OR FEVER Baclofen 10 mg 12/29/19 20:32 12/30/19 21:48 Lioresal - PO 10 mg Q8H PRN Administration MUSCLE SPASM Carvedilol 12.5 mg 12/29/19 22:00 12/31/19 10:23 Coreg - PO 12.5 mg BID LISA Administration Diazepam 10 mg 12/30/19 12:30 12/31/19 10:23 Valium - PO 10 mg DAILY LISA Administration Ferrous Sulfate 325 mg 12/30/19 08:00 12/31/19 10:23 Feosol - PO 325 mg BIDWM LISA Administration Gabapentin 600 mg 12/30/19 10:00 12/31/19 10:24 Neurontin - PO 600 mg DAILY LISA Administration Cefazolin Sodium 1 gm/ 50 mls @ 100 mls/hr 12/30/19 02:00 12/31/19 10:23 Dextrose IVPB 100 mls/hr Q8H-IV LISA Administration Insulin Aspart 1 vial 12/29/19 22:00 12/31/19 11:56 Novolog Vial Sliding Scale - SQ 2 units ACHS LISA Administration Protocol Leflunomide 20 mg 12/30/19 10:00 12/31/19 10:24 Arava - PO 20 mg DAILY LISA Administration Multi-Ingredient Lotion 1 applic 12/29/19 20:32 Eucerin (Small Jar) - TP Q24H PRN DRY SKIN Oxycodone HCl 10 mg 12/29/19 20:32 12/31/19 06:42 Roxicodone - PO 10 mg Q6H PRN Administration PAIN LEVEL 6-10 Pramipexole Dihydrochloride 0.25 mg 12/29/19 22:00 12/31/19 10:23 Mirapex - PO 0.25 mg BID LISA Administration Rivaroxaban 20 mg 12/30/19 18:00 12/30/19 17:02 Xarelto PO 20 mg DAILY@1800 LISA Administration Sacubitril/Valsartan 1 tab 12/29/19 10:00 12/31/19 10:24 Entresto 24 Mg-26 Mg Tablet PO 1 tab BID LISA Administration Zolpidem Tartrate 5 mg 12/29/19 20:32 12/31/19 00:06 Ambien - PO 5 mg HS PRN Administration INSOMNIA Home Medications Medication Instructions Recorded Insulin Lispro Protamin/Lispro 22 unit SQ ACDIN 12/15/15 [Humalog Mix 75-25 Kwikpen] Zolpidem Tartrate [Ambien] 10 mg PO HS PRN 06/01/17 Leflunomide [Arava] 20 mg PO DAILY 07/26/18 Torsemide 50 mg PO DAILY 07/26/18 Baclofen 10 mg PO PRN 07/16/19 Rivaroxaban [Xarelto -] 20 mg PO DAILY #30 tablet 10/03/19 Carvedilol [Coreg -] 12.5 mg PO BID 11/23/19 Gabapentin [Neurontin -] 600 mg PO TID 11/23/19 Diazepam 10 mg PO DAILY 12/28/19 Oxycodone HCl/Acetaminophen 1 each PO QID 12/28/19 [Percocet 10-325 mg Tablet] Pramipexole Di-HCl [Mirapex] 0.25 mg PO BID 12/28/19 ASSESSMENT AND PLAN: 74 year old female with history of diastolic CHF, RA, DM 2, HTN, Hx DVT/PE, a fib (on Xarelto), multiple spine surgeries, s/p L4/5 laminectomy then L5/S1 seroma with recent epidural abscess drainage s/p I and D, complex wound closure and wound vac placement 11/25 - sent home on IV Rocephin via PICC 12/03 now returns with SOB for a 2-3 days. No cough/sputum/CP/hemoptysis. No fever/chills. 1. Acute on Chronic Systolic CHF decompensation/known non-ischemic cardiomyopathy No hypoxia, COVID negative. Elevated BNP, symptoms improving with Lasix diuresis Echo - systolic CHF, EF 35-40%, moderate LV hypokinesis Cardiology consulted - patient has known non-ischemic cardiomyopathy with prior cardiac caths showing no disease, no need for ischemic eval. Trial of Entresto as per Cardio. Diuresis intensified by Cardio - receiving IV Lasix and Metolazone today. Home Torsemide held. Daily weights, I/Os. 2. Recent Epidural Abscess s/p I and D by Spinal Surgery, discharged 12/03 on 4 week course of IV Ceftriaxone via PICC ID changed Abx to Ancef while in-patient. Now PICC removed as it was accidentally dislodged. Afebrile, Hemodynamically Stable, no leukocytosis. Blood Cx - Staph epi 1 bottle, likely contaminant, repeat Blood cx neg x 2. Evaluated by Spinal Surgery - wound vac applied - no plans for any further surgical procedures. Awaiting wound vac to be provided at home prior to discharge, for re-eval of wound by Spinal Surgery 12/31. Chronically on Valium/Oxycodone at home - resumed. Further Abx recommendations as per ID ?may need PICC replacement prior to discharge. 3. Paroxysmal Atrial Fibrillation - continue Coreg and Xarelto 4. Hx PE/DVT s/p IVC filter - continue Xarelto 5. DM 2 - uncontrolled, A1c 9.0. Maintain on Novolog sliding scale. 6. RA - on Leflunomide. 7. Normocytic Anemia - B12 352, Iron Sat 7, Folate 11, Ferritin 45. MMA sent. Iron supplemented. Will need out-patient Iron Deficiency work-up. 8. NICHOLE - needs out-patient follow up for CPAP machine DVT Px - on Xarelto.
--- NOTE | 2019-12-31 14:19 | PN ---
Progress Note, Physician History of Present Illness: Pt is alert, sitting up. Chronic back pain, currently comfortable, afebrile. PICC came out yesterday. Have IV access currently. - Current Medication List Current Medications: Active Medications Acetaminophen (Tylenol -) 650 mg PO Q6H PRN PRN Reason: PAIN LEVEL 1-5 OR FEVER Last Admin: 12/31/19 06:42 Dose: 650 mg Documented by: Baclofen (Lioresal -) 10 mg PO Q8H PRN PRN Reason: MUSCLE SPASM Last Admin: 12/30/19 21:48 Dose: 10 mg Documented by: Carvedilol (Coreg -) 12.5 mg PO BID [facility] Last Admin: 12/31/19 10:23 Dose: 12.5 mg Documented by: Diazepam (Valium -) 10 mg PO DAILY [facility] Last Admin: 12/31/19 10:23 Dose: 10 mg Documented by: Ferrous Sulfate (Feosol -) 325 mg PO BIDWM [facility] Last Admin: 12/31/19 10:23 Dose: 325 mg Documented by: Gabapentin (Neurontin -) 600 mg PO DAILY [facility] Last Admin: 12/31/19 10:24 Dose: 600 mg Documented by: Cefazolin Sodium 1 gm/ (Dextrose) 50 mls @ 100 mls/hr IVPB Q8H-IV [facility] Last Admin: 12/31/19 10:23 Dose: 100 mls/hr Documented by: Insulin Aspart (Novolog Vial Sliding Scale -) 1 vial SQ ACHS [facility]; Protocol Last Admin: 12/31/19 11:56 Dose: 2 units Documented by: Leflunomide (Arava -) 20 mg PO DAILY [facility] Last Admin: 12/31/19 10:24 Dose: 20 mg Documented by: Multi-Ingredient Lotion (Eucerin (Small Jar) -) 1 applic TP Q24H PRN PRN Reason: DRY SKIN Oxycodone HCl (Roxicodone -) 10 mg PO Q6H PRN PRN Reason: PAIN LEVEL 6-10 Last Admin: 12/31/19 06:42 Dose: 10 mg Documented by: Pramipexole Dihydrochloride (Mirapex -) 0.25 mg PO BID [facility] Last Admin: 12/31/19 10:23 Dose: 0.25 mg Documented by: Rivaroxaban (Xarelto) 20 mg PO DAILY@1800 [facility] Last Admin: 12/30/19 17:02 Dose: 20 mg Documented by: Sacubitril/Valsartan (Entresto 24 Mg-26 Mg Tablet) 1 tab PO BID [facility] Last Admin: 12/31/19 10:24 Dose: 1 tab Documented by: Zolpidem Tartrate (Ambien -) 5 mg PO HS PRN PRN Reason: INSOMNIA Last Admin: 12/31/19 00:06 Dose: 5 mg Documented by: - Objective Vital Signs: Vital Signs Temperature 98.2 F 12/31/19 10:00 Pulse Rate 70 12/31/19 10:00 Respiratory Rate 18 12/31/19 10:00 Blood Pressure 140/55 L 12/31/19 10:00 O2 Sat by Pulse Oximetry (%) 97 12/31/19 09:00 Constitutional: Yes: No Distress, Calm Cardiovascular: Yes: Regular Rate and Rhythm Respiratory: Yes: Regular Gastrointestinal: Yes: Normal Bowel Sounds, Soft, Abdomen, Obese Wound/Incision: Yes: Other (spinal wound with wound Vac on) Neurological: Yes: Alert, Oriented Labs: CBC, BMP 12/31/19 06:30 12/31/19 06:30 INR, PTT INR 1.34 (0.83-1.09) H 12/26/19 14:20 Laboratory Last Values WBC 6.1 K/mm3 (4.0-10.0) 12/31/19 06:30 RBC 4.10 M/mm3 (3.60-5.2) 12/31/19 06:30 Hgb 11.0 GM/dL (10.7-15.3) 12/31/19 06:30 Hct 34.5 % (32.4-45.2) 12/31/19 06:30 MCV 84.1 fl (80-96) 12/31/19 06:30 MCH 26.8 pg (25.7-33.7) 12/31/19 06:30 MCHC 31.9 g/dl (32.0-36.0) L 12/31/19 06:30 RDW 20.2 % (11.6-15.6) H 12/31/19 06:30 Plt Count 251 K/MM3 (134-434) 12/31/19 06:30 MPV 8.0 fl (7.5-11.1) 12/31/19 06:30 Absolute Neuts (auto) 3.1 K/mm3 (1.5-8.0) 12/31/19 06:30 Neutrophils % 51.1 % (42.8-82.8) 12/31/19 06:30 Lymphocytes % 27.2 % (8-40) 12/31/19 06:30 Monocytes % 12.7 % (3.8-10.2) H 12/31/19 06:30 Eosinophils % 7.6 % (0-4.5) H D 12/31/19 06:30 Basophils % 1.4 % (0-2.0) 12/31/19 06:30 Nucleated RBC % 0 % (0-0) 12/31/19 06:30 PT with INR 15.90 SEC (9.7-13.0) H 12/26/19 14:20 INR 1.34 (0.83-1.09) H 12/26/19 14:20 PTT (Actin FS) 32.7 SECONDS (25.2-36.5) 12/26/19 14:20 VBG pH 7.35 (7.31-7.41) 12/26/19 14:20 POC VBG pCO2 50.2 mmHg (38-52) 12/26/19 14:20 POC VBG pO2 < 49 mmHg (28-48) H 12/26/19 14:20 VBG HCO3 27.2 mmol/L (23-29) 12/26/19 14:20 VBG O2 Sat (Michael) 79.1 % (70-80) 12/26/19 14:20 VBG Base Excess 1.1 mmol/L (-2-2) 12/26/19 14:20 Sodium 138 mmol/L (136-145) 12/31/19 06:30 Potassium 4.6 mmol/L (3.5-5.1) 12/31/19 06:30 Chloride 101 mmol/L (98-107) 12/31/19 06:30 Carbon Dioxide 28 mmol/L (21-32) 12/31/19 06:30 Anion Gap 8 MMOL/L (8-16) 12/31/19 06:30 BUN 31.1 mg/dL (7-18) H 12/31/19 06:30 Creatinine 1.1 mg/dL (0.55-1.3) 12/31/19 06:30 Est GFR (CKD-EPI)AfAm 57.68 12/31/19 06:30 Est GFR (CKD-EPI)NonAf 49.77 12/31/19 06:30 POC Glucometer 186 UNITS (80-120) 12/31/19 11:53 Random Glucose 180 mg/dL (74-106) H 12/31/19 06:30 Lactic Acid 1.5 mmol/L (0.4-2.0) 12/26/19 14:20 Calcium 8.8 mg/dL (8.5-10.1) 12/31/19 06:30 Phosphorus 3.3 mg/dL (2.5-4.9) 12/31/19 06:30 Magnesium 2.3 mg/dL (1.8-2.4) 12/31/19 06:30 Iron 22 ug/dL (50-175) L 12/28/19 09:35 TIBC 307 ug/dL (250-450) 12/28/19 09:35 Iron Saturation 7 % (17.5-39) L 12/28/19 09:35 Unsaturated IBC 285 ug/dL (200-275) H 12/28/19 09:35 Ferritin 43.1 ng/ml (8-388) 12/28/19 09:35 Total Bilirubin 0.6 mg/dL (0.2-1) 12/31/19 06:30 AST 18 U/L (15-37) 12/31/19 06:30 ALT 6 U/L (13-61) L 12/31/19 06:30 Alkaline Phosphatase 145 U/L (45-117) H 12/31/19 06:30 LD Total 603 U/L (84-246) H 12/26/19 14:20 Creatine Kinase 136 U/L (26-192) 12/26/19 20:50 Creatine Kinase 140 U/L (26-192) 12/26/19 20:50 Troponin I < 0.02 ng/ml (0.00-0.05) 12/28/19 19:40 C-Reactive Protein 3.5 MG/DL (0.00-0.3) H 12/26/19 14:20 B-Natriuretic Peptide 3077.7 pg/ml (5-125) H 12/30/19 07:20 Total Protein 6.6 g/dl (6.4-8.2) 12/31/19 06:30 Albumin 3.0 g/dl (3.4-5.0) L 12/31/19 06:30 Vitamin B12 352 pg/ml (193-986) 12/28/19 09:35 Serum Folate 17 ng/mL (3.1-17.5) 12/28/19 09:35 COVID-19 (MATA) Not detected (Not Detected) 12/26/19 14:20 Blood Type O POSITIVE 12/26/19 14:20 Antibody Screen Negative 12/26/19 14:20 Microbiology 12/28/19 19:40 Blood - Peripheral Venous Blood Culture - Preliminary NO GROWTH OBTAINED AFTER 48 HOURS, INCUBATION TO CONTINUE FOR 3 DAYS. 12/28/19 19:20 Blood - Peripheral Venous Blood Culture - Preliminary NO GROWTH OBTAINED AFTER 48 HOURS, INCUBATION TO CONTINUE FOR 3 DAYS. 12/26/19 14:20 Blood - Peripheral Venous Blood Culture - Preliminary NO GROWTH OBTAINED AFTER 96 HOURS, INCUBATION TO CONTINUE FOR 1 DAYS. 12/26/19 14:20 Blood - Peripheral Venous Blood Culture - Final Staphylococcus Epidermidis Problem List - Problems (1) Epidural abscess Code(s): G06.2 - EXTRADURAL AND SUBDURAL ABSCESS, UNSPECIFIED (2) Shortness of breath Code(s): R06.02 - SHORTNESS OF BREATH (3) CHF (congestive heart failure) Code(s): I50.9 - HEART FAILURE, UNSPECIFIED (4) Diabetes Code(s): E11.9 - TYPE 2 DIABETES MELLITUS WITHOUT COMPLICATIONS Qualifiers: Diabetes mellitus type: type 2 (5) HTN (hypertension), benign Code(s): I10 - ESSENTIAL (PRIMARY) HYPERTENSION (6) Back pain Code(s): M54.9 - DORSALGIA, UNSPECIFIED Qualifiers: Back pain location: low back pain Chronicity: unspecified Back pain laterality: right Sciatica presence: without sciatica Qualified Code(s): M54.5 - Low back pain (7) History of DVT (deep vein thrombosis) Code(s): Z86.718 - PERSONAL HISTORY OF OTHER VENOUS THROMBOSIS AND EMBOLISM (8) Hypertension Code(s): I10 - ESSENTIAL (PRIMARY) HYPERTENSION (9) Rheumatoid arthritis Code(s): M06.9 - RHEUMATOID ARTHRITIS, UNSPECIFIED Assessment/Plan -- continue Ancef for now as inpatient -- awaiting PICC replacement -- pt afebrile, wbc remains stable -- wound vac on spinal wound -- vitals stable -- neurosurgical f/u -- Dr. Krueger to followup
--- NOTE | 2019-12-31 14:23 | PN ---
Physical Exam: SUBJECTIVE: Patient seen and examined. Overnight patient removed PICC line. OBJECTIVE: Vital Signs Period Temp Pulse Resp BP Sys/Marcelo Pulse Ox Last 24 Hr 97.6 F-98.2 F 69-75 18-20 106-140/55-69 97-97 GENERAL: The patient is awake, alert, and fully oriented, in no acute distress. HEENT: NCAT. Sclera clear. MMM. LUNGS: Breath sounds equal, clear to auscultation bilaterally, no wheezes, no crackles. HEART: Regular rate and rhythm, S1, S2 without murmur, rub or gallop. ABDOMEN: Soft, nontender, nondistended, normoactive bowel sounds, no guarding EXTREMITIES: 2+ pulses, warm, well-perfused, no edema. Back: Spinal surgical wound w/vac in place. No surrounding erythema or warmth. SKIN: Warm, dry, normal turgor Laboratory Results - last 24 hr 12/30/19 12/30/19 12/31/19 16:55 21:50 06:19 WBC RBC Hgb Hct MCV MCH MCHC RDW Plt Count MPV Absolute Neuts (auto) Neutrophils % Lymphocytes % Monocytes % Eosinophils % Basophils % Nucleated RBC % Sodium Potassium Chloride Carbon Dioxide Anion Gap BUN Creatinine Est GFR (CKD-EPI)AfAm Est GFR (CKD-EPI)NonAf POC Glucometer 136 178 161 Random Glucose Calcium Phosphorus Magnesium Total Bilirubin AST ALT Alkaline Phosphatase Total Protein Albumin 12/31/19 12/31/19 12/31/19 06:30 06:30 11:53 WBC 6.1 RBC 4.10 Hgb 11.0 Hct 34.5 MCV 84.1 MCH 26.8 MCHC 31.9 L RDW 20.2 H Plt Count 251 MPV 8.0 Absolute Neuts (auto) 3.1 Neutrophils % 51.1 Lymphocytes % 27.2 Monocytes % 12.7 H Eosinophils % 7.6 H D Basophils % 1.4 Nucleated RBC % 0 Sodium 138 Potassium 4.6 Chloride 101 Carbon Dioxide 28 Anion Gap 8 BUN 31.1 H Creatinine 1.1 Est GFR (CKD-EPI)AfAm 57.68 Est GFR (CKD-EPI)NonAf 49.77 POC Glucometer 186 Random Glucose 180 H Calcium 8.8 Phosphorus 3.3 Magnesium 2.3 Total Bilirubin 0.6 AST 18 ALT 6 L Alkaline Phosphatase 145 H Total Protein 6.6 Albumin 3.0 L Active Medications Generic Name Dose Route Start Last Admin Trade Name Freq PRN Reason Stop Dose Admin Acetaminophen 650 mg 12/29/19 20:32 12/31/19 06:42 Tylenol - PO 650 mg Q6H PRN Administration PAIN LEVEL 1-5 OR FEVER Baclofen 10 mg 12/29/19 20:32 12/30/19 21:48 Lioresal - PO 10 mg Q8H PRN Administration MUSCLE SPASM Carvedilol 12.5 mg 12/29/19 22:00 12/31/19 10:23 Coreg - PO 12.5 mg BID LISA Administration Diazepam 10 mg 12/30/19 12:30 12/31/19 10:23 Valium - PO 10 mg DAILY LISA Administration Ferrous Sulfate 325 mg 12/30/19 08:00 12/31/19 10:23 Feosol - PO 325 mg BIDWM LISA Administration Gabapentin 600 mg 12/30/19 10:00 12/31/19 10:24 Neurontin - PO 600 mg DAILY LISA Administration Cefazolin Sodium 1 gm/ 50 mls @ 100 mls/hr 12/30/19 02:00 12/31/19 10:23 Dextrose IVPB 100 mls/hr Q8H-IV LISA Administration Insulin Aspart 1 vial 12/29/19 22:00 12/31/19 11:56 Novolog Vial Sliding Scale - SQ 2 units ACHS LISA Administration Protocol Leflunomide 20 mg 12/30/19 10:00 12/31/19 10:24 Arava - PO 20 mg DAILY LISA Administration Multi-Ingredient Lotion 1 applic 12/29/19 20:32 Eucerin (Small Jar) - TP Q24H PRN DRY SKIN Oxycodone HCl 10 mg 12/29/19 20:32 12/31/19 06:42 Roxicodone - PO 10 mg Q6H PRN Administration PAIN LEVEL 6-10 Pramipexole Dihydrochloride 0.25 mg 12/29/19 22:00 12/31/19 10:23 Mirapex - PO 0.25 mg BID LISA Administration Rivaroxaban 20 mg 12/30/19 18:00 12/30/19 17:02 Xarelto PO 20 mg DAILY@1800 LISA Administration Sacubitril/Valsartan 1 tab 12/29/19 10:00 12/31/19 10:24 Entresto 24 Mg-26 Mg Tablet PO 1 tab BID LISA Administration Zolpidem Tartrate 5 mg 12/29/19 20:32 12/31/19 00:06 Ambien - PO 5 mg HS PRN Administration INSOMNIA ASSESSMENT/PLAN: 74 y.o. F PMH CHF (EF 35-40%), RA, DM 2, HTN, Hx DVT/PE, a fib (on Xarelto), known non-ischemic cardiomyopathy, multiple spine surgeries, s/p L4/5 laminectomy then L5/S1 seroma with recent epidural abscess drainage s/p I and D, complex wound closure and wound vac placement 11/25-sent home on IV Rocephin via PICC 12/03 who returned w/ shortness of breath for 3 days admitted for CHF exacerbation #Acute on chronic systolic-CHF exacerbation -COVID negative swabbed 12/25 -BNP on admission 6000s; repeated yesterday (3000s) -CXR 12/25: mild b/l interstitial markings -s/p lasix 80mg IV x 2 doses w/ 1 dose 2.5mg metolazone yesterday 12/29; BN/Cr stable, giving 100mg IV lasix + metolazne today -trend daily weights, BUN/Cr strictly-- if increases further & SOB resolving will d/c IV diuresis as per cardio recs -echo 12/26: LV sys function moderately reduced. EF 35-50%; moderate global hypokinesis of LV. LA dilation. Mod MR, trace TR. (previous Echo in 2018- w/ EF 55%) -possible nuclear stress test on 12/31 if continued SOB -continue coreg 12.5mg PO BID -Entresto 24-26 BID -holding DORENE in setting of soft BPs & hyperkalemia -holding home torsemide -cardio following -strict Is & O's #Epidural Abscess -s/p I and D; discharged 12/03 on 4 week course of IV ceftriaxone via PICC (to be completed 12/31) -Discussed with Dr. Borjas, plans to consider wash out on tuesday, but for now maintain Wound vac !125mmHg neg pressure therapy and control pain -pain control: Oxy 10 Q6 PRN -continue Ancef while inpatient; patient removed PICC line, receiving IV abx via peripheral IV -1 x blod cx staph epi likely contaminate- r/p blood cx negaive x2 #Paroxysmal Atrial Fibrillation -continue Coreg -Xarelto 20mg daily -Holter as per cardio to assess rate control #Hx PE/DVT -c/w Xarelto #DM -HbA1c 9.0% -BGMs, ISS ACHS -hld home oral agents #RA -c/w Leflunomide #Normocytic Anemia -2/2 to anemia of chronic disease -Iron/Ferritin/B12/Folate levels- consistent with above -continue feosol #NICHOLE not treated, pt has not followed up for cpap therapy #DVT Ppx on Xarelto #FEN -no standing fluids -monitor lytes -Diabetic diet Dispo: cont to monitor on med surg Visit type - Emergency Visit Emergency Visit: No - New Patient This patient is new to me today: Yes Date on this admission: 12/31/19 - Critical Care Critical Care patient: No ATTENDING PHYSICIAN STATEMENT I saw and evaluated the patient. I reviewed the resident's note and discussed the case with the resident. I agree with the resident's findings and plan as documented. SUBJECTIVE: OBJECTIVE: ASSESSMENT AND PLAN:
[2019-12-31] MEDS: RIVAROXABAN 20 MG TABLET PO SCH (17:20)
[2019-12-31] MEDS ORDERED: PT OWN MED DRAWER 7, Y5N ONE (21:00)
[2020-01-01] MEDS: ZOLPIDEM TARTRATE 5 MG TABLET PO PRN ×2 (01:30→23:30)
[2020-01-01] MEDS ORDERED: ceFAZolin SODIUM 1 GM VIAL ONE ×3 (02:57→17:30)
[2020-01-01] MEDS ORDERED: DEXTROSE 5%-WATER - 50 ML IVPB ONE ×4 (02:57→20:41)
[2020-01-01] MEDS: CEFAZOLIN 1 GM in DEXTROSE 5%-WATER - 50 ML IVPB SCH ×3 (03:00→17:32)
[2020-01-01] MEDS: INSULIN SLIDING SCALE (NOVOLOG) 1 VIAL SQ SCH ×4 (06:37→21:42)
[2020-01-01 08:44] LABS: HEMATOCRIT 37.4 % (32.4-45.2); HEMOGLOBIN 11.8 GM/dL (10.7-15.3); MCH 26.7 pg (25.7-33.7); MCHC 31.5 g/dl (32.0-36.0); MEAN CELL VOLUME 84.9 fl (80-96); MEAN PLT VOLUME 7.8 fl (7.5-11.1); PLATELET COUNT 264 K/MM3 (134-434); RBC 4.41 M/mm3 (3.60-5.2); RDW 20.7 % (11.6-15.6); WHITE BLOOD COUNT 6.6 K/mm3 (4.0-10.0)
[2020-01-01] MEDS ORDERED: PT OWN MED DRAWER 7, Y5N ONE (09:03)
[2020-01-01 09:12] LABS: CHLORIDE 100 mmol/L (98-107); POTASSIUM 4.6 mmol/L (3.5-5.1); SODIUM 136 mmol/L (136-145)
[2020-01-01 09:25] LABS: ALBUMIN 3.4 g/dl (3.4-5.0); ALK PHOS 151 U/L (45-117); ANION GAP 11 MMOL/L (8-16); BILIRUBIN,TOTAL 0.4 mg/dL (0.2-1); BLOOD UREA NITROGEN 38.7 mg/dL (7-18); CALCIUM 8.8 mg/dL (8.5-10.1); CO2 24 mmol/L (21-32); CREATININE 1.3 mg/dL (0.55-1.3); GLUCOSE,RANDOM 153 mg/dL (74-106); SGOT/AST 19 U/L (15-37); SGPT/ALT < 6 U/L (13-61)
[2020-01-01] MEDS: diazePAM 5 MG TABLET PO SCH (10:05)
[2020-01-01] MEDS: PRAMIPEXOLE DIHYDROCHLORIDE 0.25 MG TABLET PO SCH ×2 (10:05→21:42)
[2020-01-01] MEDS: FERROUS SO4 325 MG TABLET (FP) PO SCH ×2 (10:05→17:32)
[2020-01-01] MEDS: GABAPENTIN 300 MG CAPSULE PO SCH (10:05)
[2020-01-01] MEDS: CARVEDILOL 12.5 MG TABLET (FP) PO SCH ×2 (10:05→21:42)
[2020-01-01] MEDS: SACUBITRIL/VALSARTAN 24 MG-26 MG TABLET PO SCH ×2 (10:06→22:34)
[2020-01-01] MEDS: LEFLUNOMIDE 10 MG TABLET PO SCH (10:06)
--- NOTE | 2020-01-01 13:33 | PN ---
Progress Note (short form) - Note Progress Note: Chief Complaint: leg swelling, sob History of Present Illness: edema, dyspnea better. notes dyspnea worse with back pain and changes of position. no edema, chest pain, palps Current Medications Generic Name Dose Route Start Last Admin Trade Name Freq PRN Reason Stop Dose Admin Acetaminophen 650 mg 12/29/19 20:32 12/31/19 06:42 Tylenol - PO 650 mg Q6H PRN Administration PAIN LEVEL 1-5 OR FEVER Baclofen 10 mg 12/29/19 20:32 12/30/19 21:48 Lioresal - PO 10 mg Q8H PRN Administration MUSCLE SPASM Carvedilol 12.5 mg 12/29/19 22:00 01/01/20 10:05 Coreg - PO 12.5 mg BID LISA Administration Diazepam 10 mg 12/30/19 12:30 01/01/20 10:05 Valium - PO 10 mg DAILY LISA Administration Ferrous Sulfate 325 mg 12/30/19 08:00 01/01/20 10:05 Feosol - PO 325 mg BIDWM LISA Administration Gabapentin 600 mg 12/30/19 10:00 01/01/20 10:05 Neurontin - PO 600 mg DAILY LISA Administration Cefazolin Sodium 1 gm/ 50 mls @ 100 mls/hr 12/30/19 02:00 01/01/20 10:05 Dextrose IVPB 100 mls/hr Q8H-IV LISA Administration Insulin Aspart 1 vial 12/29/19 22:00 01/01/20 11:26 Novolog Vial Sliding Scale - SQ 2 units ACHS LISA Administration Protocol Leflunomide 20 mg 12/30/19 10:00 01/01/20 10:06 Arava - PO 20 mg DAILY LISA Administration Multi-Ingredient Lotion 1 applic 12/29/19 20:32 Eucerin (Small Jar) - TP Q24H PRN DRY SKIN Oxycodone HCl 10 mg 12/29/19 20:32 12/31/19 23:30 Roxicodone - PO 10 mg Q6H PRN Administration PAIN LEVEL 6-10 Pramipexole Dihydrochloride 0.25 mg 12/29/19 22:00 01/01/20 10:05 Mirapex - PO 0.25 mg BID LISA Administration Rivaroxaban 20 mg 12/30/19 18:00 12/31/19 17:20 Xarelto PO 20 mg DAILY@1800 LISA Administration Sacubitril/Valsartan 1 tab 12/29/19 10:00 01/01/20 10:06 Entresto 24 Mg-26 Mg Tablet PO 1 tab BID LISA Administration Torsemide 50 mg 01/02/20 10:00 Demadex - PO DAILY LISA Zolpidem Tartrate 5 mg 12/29/19 20:32 01/01/20 01:30 Ambien - PO 5 mg HS PRN Administration INSOMNIA Vital Signs Period Temp Pulse Resp BP Sys/Marcelo Pulse Ox Last 24 Hr 97.3 F-97.8 F 68-84 20-20 99-148/52-92 95-95 Constitutional: Yes: Well Nourished, No Distress, Calm Eyes: No: Ptosis, Sclera Icterus Neck: Yes: Supple Cardiovascular: Yes: Regular Rate and Rhythm Respiratory: Yes: Regular. 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 REC: Epidural abscess: -plan per spine surgery, ID Acute on chronic systolic CHF, moderate MR: -known nonisch CMP with normal coronaries on cath x 2 -EF has fluctuated 35-55% over the years, likely in relation to severity of untr eated NICHOLE, vs ? diabetic (uncontrolled glycemic status, does not f/u with PMD despite repeatedly advised to do so) -EF now moderately reduced (35-40%, global), last echo here 2018 was 50-55%. -has not had significant burden of AF, doubt tachy-CMP - in sinus on tele here - improved with IV lasix, no edema, BUN rising - dc'ed IV lasix - agree with resuming torsemide - notes dyspnea worse with back pain, position changes -Cont Coreg -low dose DORENE held during recent admit due to mild hyperkalemia and soft BPs (was on lisinopril 5 qd then). given current EF, pt has mortality benefit from Entresto. K normal, BP currently mostly > 110. - started Entresto 24-26 BID dose here, monitor K/BP closely. Prolonged QTC: -F/u ECGs -Keep K+ and Mg2+ normalized -Avoid / minimize QT prolonging meds VTach: -NSVT on tele -cont bb -HF optimization (diuresis) as doing -replete K/Mg to 4/2 PAF: -Cont Coreg and Xarelto -Holter to assess rate control DVT/PE with history of filter: -cont with AC NICHOLE: -not treated, pt has not followed up for cpap therapy
--- NOTE | 2020-01-01 13:43 | PN ---
Progress Note, Physician History of Present Illness: stable no new issues - Current Medication List Current Medications: Active Medications Acetaminophen (Tylenol -) 650 mg PO Q6H PRN PRN Reason: PAIN LEVEL 1-5 OR FEVER Last Admin: 12/31/19 06:42 Dose: 650 mg Documented by: Baclofen (Lioresal -) 10 mg PO Q8H PRN PRN Reason: MUSCLE SPASM Last Admin: 12/30/19 21:48 Dose: 10 mg Documented by: Carvedilol (Coreg -) 12.[address] [facility] Last Admin: 01/01/20 10:05 Dose: 12.5 mg Documented by: Diazepam (Valium -) [address] [facility] Last Admin: 01/01/20 10:05 Dose: 10 mg Documented by: Ferrous Sulfate (Feosol -) [address] [facility] Last Admin: 01/01/20 10:05 Dose: 325 mg Documented by: Gabapentin (Neurontin -) [address] [facility] Last Admin: 01/01/20 10:05 Dose: 600 mg Documented by: Cefazolin Sodium 1 gm/ (Dextrose) 50 mls @ 100 mls/hr IVPB Q8H-IV [facility] Last Admin: 01/01/20 10:05 Dose: 100 mls/hr Documented by: Insulin Aspart (Novolog Vial Sliding Scale -) [address] [facility]; Protocol Last Admin: 01/01/20 11:26 Dose: 2 units Documented by: Leflunomide (Arava -) [address] [facility] Last Admin: 01/01/20 10:06 Dose: 20 mg Documented by: Multi-Ingredient Lotion (Eucerin (Small Jar) -) 1 applic TP Q24H PRN PRN Reason: DRY SKIN Oxycodone HCl (Roxicodone -) 10 mg PO Q6H PRN PRN Reason: PAIN LEVEL 6-10 Last Admin: 12/31/19 23:30 Dose: 10 mg Documented by: Pramipexole Dihydrochloride (Mirapex -) 0.[address] [facility] Last Admin: 01/01/20 10:05 Dose: 0.25 mg Documented by: Rivaroxaban (Xarelto) 20 mg PO DAILY@1800 [facility] Last Admin: 12/31/19 17:20 Dose: 20 mg Documented by: Sacubitril/Valsartan (Entresto 24 Mg-26 Mg Tablet) 1 tab PO BID LISA Last Admin: 01/01/20 10:06 Dose: 1 tab Documented by: Torsemide (Demadex -) 50 mg PO DAILY LISA Zolpidem Tartrate (Ambien -) 5 mg PO HS PRN PRN Reason: INSOMNIA Last Admin: 01/01/20 01:30 Dose: 5 mg Documented by: - Objective Vital Signs: Vital Signs Temperature 97.8 F 01/01/20 08:35 Pulse Rate 77 01/01/20 08:35 Respiratory Rate 20 01/01/20 08:35 Blood Pressure 148/92 01/01/20 08:35 O2 Sat by Pulse Oximetry (%) 95 01/01/20 08:31 Constitutional: Yes: No Distress, Calm Cardiovascular: Yes: S1, S2 Respiratory: Yes: Regular, CTA Bilaterally Gastrointestinal: Yes: Normal Bowel Sounds, Soft Musculoskeletal: Yes: WNL Extremities: Yes: WNL Wound/Incision: Yes: Other (wound vac in place) Psychiatric: Yes: Alert, Oriented Labs: CBC, BMP 01/01/20 07:40 01/01/20 07:40 INR, PTT INR 1.34 (0.83-1.09) H 12/26/19 14:20 Assessment/Plan this patient with h/o of epidural abscess and multiple medical problems coming in wiht sob and suspicion of wpound infection says drainage from the wound present continue current abx final plan awaited rest as per the team complete the course of abx
[2020-01-01] MEDS: RIVAROXABAN 20 MG TABLET PO SCH (17:32)
--- NOTE | 2020-01-01 17:41 | PN ---
Physical Exam: SUBJECTIVE: Patient seen and examined at the bedside, there were no acute events overnight. Pt now euvolemic, to be seen by Dr. Borjas today. OBJECTIVE: Vital Signs Period Temp Pulse Resp BP Sys/Marcelo Pulse Ox Last 24 Hr 97.3 F-97.9 F 68-82 20-20 99-148/52-92 95-95 GENERAL: The patient is awake, alert, and fully oriented, in no acute distress. HEENT: NCAT. Sclera clear. MMM. LUNGS: Breath sounds equal, clear to auscultation bilaterally, no wheezes, no crackles. HEART: Regular rate and rhythm, S1, S2 without murmur, rub or gallop. ABDOMEN: Soft, nontender, nondistended, normoactive bowel sounds, no guarding EXTREMITIES: 2+ pulses, warm, well-perfused, no edema. Back: Spinal surgical wound w/vac in place. No surrounding erythema or warmth. SKIN: Warm, dry, normal turgor Laboratory Results - last 24 hr 12/29/19 12/29/19 12/31/19 11:20 16:50 21:10 WBC RBC Hgb Hct MCV MCH MCHC RDW Plt Count MPV Sodium Potassium Chloride Carbon Dioxide Anion Gap BUN Creatinine Est GFR (CKD-EPI)AfAm Est GFR (CKD-EPI)NonAf POC Glucometer 229 156 177 Random Glucose Calcium Total Bilirubin AST ALT Alkaline Phosphatase Total Protein Albumin 01/01/20 01/01/20 01/01/20 06:35 07:40 07:40 WBC 6.6 RBC 4.41 Hgb 11.8 Hct 37.4 MCV 84.9 MCH 26.7 MCHC 31.5 L RDW 20.7 H Plt Count 264 MPV 7.8 Sodium 136 Potassium 4.6 Chloride 100 Carbon Dioxide 24 Anion Gap 11 BUN 38.7 H Creatinine 1.3 Est GFR (CKD-EPI)AfAm 47.13 Est GFR (CKD-EPI)NonAf 40.67 POC Glucometer 152 Random Glucose 153 H Calcium 8.8 Total Bilirubin 0.4 AST 19 ALT < 6 L Alkaline Phosphatase 151 H Total Protein 7.0 Albumin 3.4 01/01/20 01/01/20 11:24 16:08 WBC RBC Hgb Hct MCV MCH MCHC RDW Plt Count MPV Sodium Potassium Chloride Carbon Dioxide Anion Gap BUN Creatinine Est GFR (CKD-EPI)AfAm Est GFR (CKD-EPI)NonAf POC Glucometer 154 171 Random Glucose Calcium Total Bilirubin AST ALT Alkaline Phosphatase Total Protein Albumin Active Medications Generic Name Dose Route Start Last Admin Trade Name Freq PRN Reason Stop Dose Admin Acetaminophen 650 mg 12/29/19 20:32 12/31/19 06:42 Tylenol - PO 650 mg Q6H PRN Administration PAIN LEVEL 1-5 OR FEVER Baclofen 10 mg 12/29/19 20:32 12/30/19 21:48 Lioresal - PO 10 mg Q8H PRN Administration MUSCLE SPASM Carvedilol 12.5 mg 12/29/19 22:00 01/01/20 10:05 Coreg - PO 12.5 mg BID LISA Administration Diazepam 10 mg 12/30/19 12:30 01/01/20 10:05 Valium - PO 10 mg DAILY LISA Administration Ferrous Sulfate 325 mg 12/30/19 08:00 01/01/20 17:32 Feosol - PO 325 mg BIDWM LISA Administration Gabapentin 600 mg 12/30/19 10:00 01/01/20 10:05 Neurontin - PO 600 mg DAILY LISA Administration Ceftriaxone Sodium 1 gm/ 50 mls @ 200 mls/hr 01/01/20 17:45 Dextrose IVPB DAILY [facility] Protocol Insulin Aspart 1 vial 12/29/19 22:00 01/01/20 16:10 Novolog Vial Sliding Scale - SQ 2 units ACHS LISA Administration Protocol Leflunomide 20 mg 12/30/19 10:00 01/01/20 10:06 Arava - PO 20 mg DAILY LISA Administration Multi-Ingredient Lotion 1 applic 12/29/19 20:32 Eucerin (Small Jar) - TP Q24H PRN DRY SKIN Oxycodone HCl 10 mg 12/29/19 20:32 12/31/19 23:30 Roxicodone - PO 10 mg Q6H PRN Administration PAIN LEVEL 6-10 Pramipexole Dihydrochloride 0.25 mg 12/29/19 22:00 01/01/20 10:05 Mirapex - PO 0.25 mg BID LISA Administration Rivaroxaban 20 mg 12/30/19 18:00 01/01/20 17:32 Xarelto PO 20 mg DAILY@1800 LISA Administration Sacubitril/Valsartan 1 tab 12/29/19 10:00 01/01/20 10:06 Entresto 24 Mg-26 Mg Tablet PO 1 tab BID LISA Administration Torsemide 50 mg 01/02/20 10:00 Demadex - PO DAILY LISA Zolpidem Tartrate 5 mg 12/29/19 20:32 01/01/20 01:30 Ambien - PO 5 mg HS PRN Administration INSOMNIA ASSESSMENT/PLAN: 74 y.o. F PMH CHF (EF 35-40%), RA, DM 2, HTN, Hx DVT/PE, a fib (on Xarelto), known non-ischemic cardiomyopathy, multiple spine surgeries, s/p L4/5 laminectomy then L5/S1 seroma with recent epidural abscess drainage s/p I and D, complex wound closure and wound vac placement 11/25-sent home on IV Rocephin via PICC 12/03 who returned w/ shortness of breath for 3 days admitted for CHF exacerbation #Acute on chronic systolic-CHF exacerbation -COVID negative swabbed 12/25 -BNP on admission 6000s; decreasing -CXR 12/25: mild b/l interstitial markings -echo 12/26: LV sys function moderately reduced. EF 35-50%; moderate global hypokinesis of LV. LA dilation. Mod MR, trace TR. (previous Echo in 2018- w/ EF 55%) -s/p lasix and metolazone, pt currently euvolemic -resume torsemide 50PO daily -continue coreg 12.5mg PO BID -Entresto 24-26 BID -holding DORENE in setting of soft BPs & hyperkalemia -cardio following, appreciate reccs #Epidural Abscess -s/p I and D; discharged 12/03 on 4 week course of IV ceftriaxone via PICC (lost on Friday 12/29) -To be seen by Dr. Borjas, for possible wash out - maintain Wound vac @125mmHg neg pressure therapy and control pain -pain control: Oxy 10 Q6 PRN -receiving IV abx via peripheral IV, per Dr. Krueger pt will need IV ceftriaxone for a additional 10 days. If pt discharged prior to completion will need to picc line -1 x blod cx staph epi likely contaminate- r/p blood cx negaive x2 #Paroxysmal Atrial Fibrillation -continue Coreg -Xarelto 20mg daily -Holter as per cardio to assess rate control #Hx PE/DVT -c/w Xarelto #DM -HbA1c 9.0% -BGMs, ISS ACHS -hld home oral agents #RA -c/w Leflunomide #Normocytic Anemia -2/2 to anemia of chronic disease -Iron/Ferritin/B12/Folate levels- consistent with above -continue feosol #NICHOLE not treated, pt has not followed up for cpap therapy #DVT Ppx on Xarelto #FEN -no standing fluids -monitor lytes -Diabetic diet Dispo: cont to monitor on tele Visit type - Emergency Visit Emergency Visit: Yes ED Registration Date: 12/26/19 Care time: The patient presented to the Emergency Department on the above date and was hospitalized for further evaluation of their emergent condition. - New Patient This patient is new to me today: No - Critical Care Critical Care patient: No - Discharge Referral Referred to [facility] No ATTENDING PHYSICIAN STATEMENT I saw and evaluated the patient. I reviewed the resident's note and discussed the case with the resident. I agree with the resident's findings and plan as documented. SUBJECTIVE: OBJECTIVE: ASSESSMENT AND PLAN:
--- NOTE | 2020-01-01 17:47 | PN ---
Progress Note (short form) - Note Progress Note: 74F well known to [facility] Orthopaedic service now admitted w/CHF exacerbation. Pt. has chronic, draining lumbar spine wound, which is not the cause for admission. This is a chronic, stable condition. Pt. admitted due to SOB and cardiopulmonary concern. Back pain well controlled. Pt. reports continued right lateral hip pain consistent with trochanteric bursitis. No acute events overnight. Pt.'s PICC line "fell out". Pt. has had multiple wound vac changes since wound vac was applied Wednesday 12/27. As per nursing staff, this is because patient becomes combative and rips off her wound vac dressing in frustration. Pt. denies overnight history of headaches, chest pain, shortness of breath, nausea, vomiting, chills, & sweats. (+) Voiding; (+) Flatus; (+) BM. Pt. ambulated with assistance in room; patient remains grossly deconditioned due to morbid obesity and sedentary lifestyle. All labs and vitals reviewed. PE: AAO x 3, NAD. L-Spine: Midline longitudinal wound healing nicely; (+) Staple/suture erythema steadily improving since zach/sutures all removed; less induration and swelling. No concerning signs of lana-incisional nor local soft tissue infection. Previous 1.5cm long draining sinus in distal 2/3 of midline appears to have closed. No wound drainage; incision clean & dry. No malodor. Lana-incisional skin cleansed w/betadine soap & gentle sponge scrub, wiped off with alcohol. Wound Vac applied again only over previously identified 1.5cm site of drainage (over patch of Xeroform) w/off-loading sponge bridge/tongue. Maintaining suction at 125mmHg negative pressure therapy and no leak. NV at baseline B/L LE. (+) Chronic right hip pain d/t soft tissue irritation adjacent to shoulder of femoral prosthesis. A/P: 74F w/draining chronic lumbar wound (under control) sent to [facility] for admission and management of CHF exacerbation. -Care per primary cardiology team, as this is the purpose for this admission. -Pain medication: recommend oxyocodon 10mg PO q6h PRN pain (patient has multiple orthopaedic problems). -Maintain woundvac @ 125mmHg negative pressure therapy. -IV antibiotics as per Dr. Krueger (ID team); no indiction for Vancomycin. -DVT PPx: -Mechanical: MARLON's, SCD's. -Chemical: Xarelto qD. -f/u AM labs. -Incentive spirometry. -PT/OT/Rehab, OOB at least once daily, ideally 2-3 times daily. -WBAT B/L LE. -Advance diet as tolerated. -No heavy lifting (>5 lbs), bending or twisting. -B/L UE & LE NV checks. -Care per primary medical hospitalist team & ID team; no plan for surgical debridement at this time. Will remove Vac dressing Tuesday and re-evaluate wound at that time. -Will follow. Luis Borjas MD (Orthopaedic Surgery).
--- NOTE | 2020-01-01 19:50 | PN ---
Teaching Attending Note Name of Resident: Rubi Traylor ATTENDING PHYSICIAN STATEMENT I saw and evaluated the patient. I reviewed the resident's note and discussed the case with the resident. I agree with the resident's findings and plan as documented. SUBJECTIVE: no fever or chills. no SPARROW . has lower back pain. has no SOB . no CP OBJECTIVE: NAD, awake, cooperative CV: RRR. No JVD Lungs: CTAB Ext: No edema on upper or lower extremities MS: lower back wound vac with no surrounding erythema or discharge noted A/P : 74 year old lady with history of CHF, RA, DM 2, HTN, Hx DVT/PE, a fib (on Xarelto), multiple spine surgeries, s/p L4/5 laminectomy then L5/S1 seroma with recent epidural abscess drainage s/p I and D, complex wound closure and wound vac placement 11/25 - sent home on IV Rocephin via PICC 12/03 now returns with SOB , she was found to have acute CHF exa 1- Acute on chronic systolic CHF. euvolemic now. - dc IV lasix and resume torsemidde - cont entresto - monitor lytes and renal function 2- h/o Epidural abscess s/p I&D and wound vac. - seen by Sx team - no debridment is planned - d/w Dr. Krueger, cont abx fro 10 more days, - will resume ceftriaxone at dc - lost her PICC . will place order for a new one 3- Paroxysmal Atrial Fibrillation - continue Coreg and Xarelto 4- Hx PE/DVT s/p IVC filter - continue Xarelto 5. DM 2 - glc within goal here. will resume mixed insulin at dc . cont SSI 6.H/o RA -: on Leflunomide. 7- Normocytic Anemia - possible iron def with B12 def . MMA pending . cont iron further w/u as out pt 8. NICHOLE - needs out-patient follow up for CPAP machine DVT Px - on Xarelto. possible dc tomorrow after PICc placement ASSESSMENT AND PLAN:
[2020-01-01] MEDS ORDERED: cefTRIAXone SODIUM 1 GM VIAL ONE (20:41)
[2020-01-01] MEDS: CEFTRIAXONE 1 GM in DEXTROSE 5%-WATER - 50 ML IVPB SCH (21:42)
[2020-01-01] MEDS: oxyCODONE HCL 5 MG TABLET PO PRN (23:30)
[2020-01-01] MEDS: ACETAMINOPHEN 325 MG TABLET (FP) PO PRN (23:31)
[2020-01-02] MEDS ORDERED: diphenhydrAMINE HCL 25 MG CAPSULE (FP) PO ONE (02:47)
[2020-01-02] MEDS: INSULIN SLIDING SCALE (NOVOLOG) 1 VIAL SQ SCH ×4 (06:23→22:05)
[2020-01-02 08:05] LABS: ALBUMIN 2.8 g/dl (3.4-5.0); ALK PHOS 139 U/L (45-117); ANION GAP 8 MMOL/L (8-16); BILIRUBIN,TOTAL 0.6 mg/dL (0.2-1); CALCIUM 8.3 mg/dL (8.5-10.1); CHLORIDE 102 mmol/L (98-107); CO2 26 mmol/L (21-32); CREATININE 1.4 mg/dL (0.55-1.3); GLUCOSE,RANDOM 168 mg/dL (74-106); POTASSIUM 4.5 mmol/L (3.5-5.1); SGOT/AST 15 U/L (15-37); SODIUM 137 mmol/L (136-145); TOT PROT 6.3 g/dl (6.4-8.2)
[2020-01-02 08:06] LABS: SGPT/ALT < 6 U/L (13-61)
[2020-01-02 08:07] LABS: HEMATOCRIT 32.5 % (32.4-45.2); HEMOGLOBIN 10.6 GM/dL (10.7-15.3); MCH 27.1 pg (25.7-33.7); MCHC 32.5 g/dl (32.0-36.0); MEAN CELL VOLUME 83.4 fl (80-96); MEAN PLT VOLUME 7.9 fl (7.5-11.1); PLATELET COUNT 265 K/MM3 (134-434); RBC 3.89 M/mm3 (3.60-5.2); RDW 20.8 % (11.6-15.6); WHITE BLOOD COUNT 6.9 K/mm3 (4.0-10.0)
--- NOTE | 2020-01-02 08:37 | DS ---
Physical Exam: SUBJECTIVE: Patient seen and examined OBJECTIVE: Vital Signs Period Temp Pulse Resp BP Sys/Marcelo Pulse Ox Last 24 Hr 97.5 F-99.5 F 71-85 20-20 103-133/50-90 95 PHYSICAL EXAM GENERAL: The patient is awake, alert, and fully oriented, in no acute distress. HEAD: Normal with no signs of trauma. EYES: PERRL, extraocular movements intact, sclera anicteric, conjunctiva clear. ENT: Ears normal, nares patent, oropharynx clear without exudates, moist mucous membranes. NECK: Trachea midline, full range of motion, supple. LUNGS: Breath sounds equal, clear to auscultation bilaterally, no wheezes, no crackles, no accessory muscle use. HEART: Regular rate and rhythm, S1, S2 without murmur, rub or gallop. ABDOMEN: Soft, nontender, nondistended, normoactive bowel sounds, no guarding, no rebound, no hepatosplenomegaly, no masses. EXTREMITIES: 2+ pulses, warm, well-perfused, no edema. NEUROLOGICAL: Cranial nerves II through XII grossly intact. Normal speech, gait not observed. PSYCH: Normal mood, normal affect. SKIN: Warm, dry, normal turgor, no rashes or lesions noted. LABS Laboratory Results - last 24 hr 01/01/20 01/01/20 01/01/20 07:40 07:40 11:24 WBC 6.6 RBC 4.41 Hgb 11.8 Hct 37.4 MCV 84.9 MCH 26.7 MCHC 31.5 L RDW 20.7 H Plt Count 264 MPV 7.8 Sodium 136 Potassium 4.6 Chloride 100 Carbon Dioxide 24 Anion Gap 11 BUN 38.7 H Creatinine 1.3 Est GFR (CKD-EPI)AfAm 47.13 Est GFR (CKD-EPI)NonAf 40.67 POC Glucometer 154 Random Glucose 153 H Calcium 8.8 Total Bilirubin 0.4 AST 19 ALT < 6 L Alkaline Phosphatase 151 H Total Protein 7.0 Albumin 3.4 01/01/20 01/01/20 01/02/20 16:08 21:40 05:35 WBC RBC Hgb Hct MCV MCH MCHC RDW Plt Count MPV Sodium 137 Potassium 4.5 Chloride 102 Carbon Dioxide 26 Anion Gap 8 BUN 54.0 H Creatinine 1.4 H Est GFR (CKD-EPI)AfAm 43.09 Est GFR (CKD-EPI)NonAf 37.18 POC Glucometer 171 176 Random Glucose 168 H Calcium 8.3 L Total Bilirubin 0.6 AST 15 ALT < 6 L Alkaline Phosphatase 139 H Total Protein 6.3 L Albumin 2.8 L 01/02/20 01/02/20 05:35 06:22 WBC 6.9 RBC 3.89 Hgb 10.6 L Hct 32.5 MCV 83.4 MCH 27.1 MCHC 32.5 RDW 20.8 H Plt Count 265 MPV 7.9 Sodium Potassium Chloride Carbon Dioxide Anion Gap BUN Creatinine Est GFR (CKD-EPI)AfAm Est GFR (CKD-EPI)NonAf POC Glucometer 150 Random Glucose Calcium Total Bilirubin AST ALT Alkaline Phosphatase Total Protein Albumin HOSPITAL COURSE: Date of Admission:12/26/19 1- Acute on chronic systolic CHF 2- h/o Epidural abscess s/p I&D and wound vac. 3- Paroxysmal Atrial Fibrillation 4- Hx PE/DVT s/p IVC filter 5. DM 2 6.H/o RA 7- Normocytic Anemia 8. NICHOLE PICc placement today Date of Discharge: 01/02/20 Discharge Summary Problems reviewed: Yes Reason For Visit: SUSPECTED COVID19 EPIDURAL ABSCESS SOB Current Active Problems Epidural abscess (Acute) Condition: Improved - Instructions Diet, Activity, Other Instructions: You were in the hospital because you had been experiencing shortness of breath and were found to be having an exacerbation of your CHF(heart failure). In the hospital you were tested for COVID-19 which was NEGATIVE. You were given an echocardiogram of your heart which found that your ejection fraction was decreased compared to a previous echocardiogram you had in 2018. We treated your CHF exacerbation with medicatio (IV lasix) which resolved your symptoms. We then resumed your home medication Torsemide once the swelling in your legs had resolved. You are now stable to go home. Because your ejection fraction was decreased since 2018 we started you on a NEW MEDICATION called: - Entresto 24-, please take this medicine TWO TIMES PER DAY, once in the morning and once in the evening Please follow up with the crane engineer Dr. Brennan, as we have made changes to your medicines. Please continue taking ALL OF YOUR OTHER HOME MEDICINES as prescribed by your doctors. You were also seen by your spine surgeon and an infectious disease doctor for the wound on your lower back. You will need to CONTINUE your IV antibiotic Cef triaxone for an additional 10 days. You will receive a PICC line when you leave the hospital. You will need to have weekly labs and you MUST FOLLOW UP with Dr. Buchanan to have your PICC like removed AFTER 10 DAYS. DO NOT do any heavy lifting( > 5lbs), bending, or twisting. Please keep the side of your PICC line clean and dry at all times. Finally on this admission it was noted that you likely have iron deficiency anemia and sleep apnea. Please follow up with your primary care doctor, Dr. Juvencio Carty, for further work up of your anemia and for follow up for a CPAP machine. Please return to the Emergency Department if you have any worsening of your symptoms, dizziness, nausea, diarrhea, chest pain, or difficulty breathing. Referrals: Manuel Buchanan MD [Staff Physician] - 2 Weeks Margie Brennan MD [Staff Physician] - 1 Week Nataly Florentino MD [Primary Care Provider] - 1 Week Luis Borjas MD [Staff Physician] - 1 Week Disposition: HOME - Home Medications Comprehensive Discharge Medication List: Ambulatory Orders Insulin Lispro Protamin/Lispro [Humalog Mix 75-25 Kwikpen] 22 unit SQ ACDIN 12/15/15 Zolpidem Tartrate [Ambien] 10 mg PO HS PRN 06/01/17 Leflunomide [Arava] 20 mg PO DAILY 07/26/18 Torsemide 50 mg PO DAILY 07/26/18 Baclofen 10 mg PO PRN 07/16/19 Rivaroxaban [Xarelto -] 20 mg PO DAILY #30 tablet 10/03/19 Carvedilol [Coreg -] 12.5 mg PO BID 11/23/19 Gabapentin [Neurontin -] 600 mg PO TID 11/23/19 Diazepam 10 mg PO DAILY 12/28/19 Oxycodone HCl/Acetaminophen [Percocet 10-325 mg Tablet] 1 each PO QID 12/28/19 Pramipexole Di-HCl [Mirapex] 0.25 mg PO BID 12/28/19 Ceftriaxone Sodium [Ceftriaxone] 1 gm IV DAILY #10 vial.port 01/02/20 - Discharge Referral Referred to [facility] No ATTENDING PHYSICIAN STATEMENT I saw and evaluated the patient. I reviewed the resident's note and discussed the case with the resident. I agree with the resident's findings and plan as documented. SUBJECTIVE: OBJECTIVE: ASSESSMENT AND PLAN:
[2020-01-02] MEDS ORDERED: PT OWN MED DRAWER 7, Y5N ONE ×2 (09:50→21:31)
[2020-01-02] MEDS ORDERED: cefTRIAXone SODIUM 1 GM VIAL ONE (09:51)
[2020-01-02] MEDS ORDERED: DEXTROSE 5%-WATER - 50 ML IVPB ONE (09:51)
[2020-01-02] MEDS: CEFTRIAXONE 1 GM in DEXTROSE 5%-WATER - 50 ML IVPB SCH (10:01)
[2020-01-02] MEDS: LEFLUNOMIDE 10 MG TABLET PO SCH (10:01)
[2020-01-02] MEDS: CARVEDILOL 12.5 MG TABLET (FP) PO SCH ×2 (10:02→22:05)
[2020-01-02] MEDS: TORSEMIDE 100 MG TABLET PO SCH (10:02)
[2020-01-02] MEDS: FERROUS SO4 325 MG TABLET (FP) PO SCH ×2 (10:02→16:48)
[2020-01-02] MEDS: diazePAM 5 MG TABLET PO SCH (10:02)
[2020-01-02] MEDS: GABAPENTIN 300 MG CAPSULE PO SCH (10:03)
[2020-01-02] MEDS: oxyCODONE HCL 5 MG TABLET PO PRN ×2 (10:03→16:48)
[2020-01-02] MEDS: SACUBITRIL/VALSARTAN 24 MG-26 MG TABLET PO SCH ×2 (10:04→22:04)
[2020-01-02] MEDS: PRAMIPEXOLE DIHYDROCHLORIDE 0.25 MG TABLET PO SCH ×2 (10:05→22:04)
--- NOTE | 2020-01-02 11:19 | PN ---
Teaching Attending Note Name of Resident: Rubi Traylor ATTENDING PHYSICIAN STATEMENT I saw and evaluated the patient. I reviewed the resident's note and discussed the case with the resident. I agree with the resident's findings and plan as documented. SUBJECTIVE: pain in posterior R hip that radiates to ankle. complains of weakness in R foot. which she had as out pt , and blames the hip and nerve damage as per what she was told OBJECTIVE: NAD, awake, cooperative CV: RRR. No JVD Lungs: CTAB Ext: No edema on upper or lower extremities. MS: lower back wound vac with no surrounding erythema or discharge noted Neuro or LE : L : hip flexion 4/5 limited by hip pain. knee felxion /extenstion 5/5 , ankle dorsiflexion/plantar flexion 5/5 R : hip flexion 5/5 if she flex L hip, 3/5 if she has L hip flat . knee felxion /extenstion 5/5 , ankle dorsiflexion 0, ankle plantar flexion 5/5 A/P : 74 year old lady with history of CHF, RA, DM 2, HTN, Hx DVT/PE, a fib (on Xarelto), multiple spine surgeries, s/p L4/5 laminectomy then L5/S1 seroma with recent epidural abscess drainage s/p I and D - sent home on IV Rocephin via PICC 12/03 now returns with SOB , she was found to have acute CHF exa 1- Acute on chronic systolic CHF. euvolemic now. - cont po torsemide - cont entresto - monitor lytes and renal function ( cr slightly up , but will monitor on oral diuresis ) 2- H/o Epidural abscess s/p I&D. Now has wound vac that was applied this admission. - Spoke with Safia Mares wound vac was changed yesterday and it might be removed on Tuesday as inpatient. wound inspection showed that wound had sealed up and the wound was dry. - cont Abx for 10 more days, - will resume ceftriaxone at dc - rehab is strongly recommended but she refused. - Question if her foot drop is new or old. ? compression at level of spine . spoke to Dr. Borjas who will get back to me for further details 3- Paroxysmal Atrial Fibrillation - continue Coreg and Xarelto 4- Hx PE/DVT s/p IVC filter - continue Xarelto 5. DM 2: cont SSI . will confirm out pt regimen 6.H/o RA : on Leflunomide. 7- Normocytic Anemia - possible iron def with B12 def . MMA pending . cont iron further w/u as out pt 8. NICHOLE - needs out-patient follow up for CPAP machine DVT Px - on Xarelto. Will cancel DC today as per d/w with ortho. If she agrees fro rehab, she can be placed . Possible dc on Tuesday
--- NOTE | 2020-01-02 11:37 | PN ---
Progress Note, Physician History of Present Illness: stable no new issues - Current Medication List Current Medications: Active Medications Acetaminophen (Tylenol -) 650 mg PO Q6H PRN PRN Reason: PAIN LEVEL 1-5 OR FEVER Last Admin: 01/01/20 23:31 Dose: 650 mg Documented by: Baclofen (Lioresal -) 10 mg PO Q8H PRN PRN Reason: MUSCLE SPASM Last Admin: 12/30/19 21:48 Dose: 10 mg Documented by: Carvedilol (Coreg -) 12.5 mg PO BID [facility] Last Admin: 01/02/20 10:02 Dose: 12.5 mg Documented by: Diazepam (Valium -) 10 mg PO DAILY [facility] Last Admin: 01/02/20 10:02 Dose: 10 mg Documented by: Ferrous Sulfate (Feosol -) 325 mg PO BIDWM [facility] Last Admin: 01/02/20 10:02 Dose: 325 mg Documented by: Gabapentin (Neurontin -) 600 mg PO DAILY [facility] Last Admin: 01/02/20 10:03 Dose: 600 mg Documented by: Ceftriaxone Sodium 1 gm/ (Dextrose) 50 mls @ 100 mls/hr IVPB DAILY [facility]; Protocol Last Admin: 01/02/20 10:01 Dose: 100 mls/hr Documented by: Insulin Aspart (Novolog Vial Sliding Scale -) 1 vial SQ [facility]; Protocol Last Admin: 01/02/20 06:23 Dose: Not Given Documented by: Leflunomide (Arava -) 20 mg PO DAILY [facility] Last Admin: 01/02/20 10:01 Dose: 20 mg Documented by: Multi-Ingredient Lotion (Eucerin (Small Jar) -) 1 applic TP Q24H PRN PRN Reason: DRY SKIN Oxycodone HCl (Roxicodone -) 10 mg PO Q6H PRN PRN Reason: PAIN LEVEL 6-10 Last Admin: 01/02/20 10:03 Dose: 10 mg Documented by: Pramipexole Dihydrochloride (Mirapex -) 0.25 mg PO BID [facility] Last Admin: 01/02/20 10:05 Dose: 0.25 mg Documented by: Rivaroxaban (Xarelto) 20 mg PO DAILY@1800 [facility] Last Admin: 01/01/20 17:32 Dose: 20 mg Documented by: Sacubitril/Valsartan (Entresto 24 Mg-26 Mg Tablet) 1 tab PO BID [facility] Last Admin: 01/02/20 10:04 Dose: 1 tab Documented by: Torsemide (Demadex -) 50 mg PO DAILY [facility] Last Admin: 01/02/20 10:02 Dose: 50 mg Documented by: Zolpidem Tartrate (Ambien -) 5 mg PO HS PRN PRN Reason: INSOMNIA Last Admin: 01/01/20 23:30 Dose: 5 mg Documented by: - Objective Vital Signs: Vital Signs Temperature 97.6 F 01/02/20 05:24 Pulse Rate 85 01/02/20 05:24 Respiratory Rate 19 01/02/20 09:00 Blood Pressure 124/90 01/02/20 05:24 O2 Sat by Pulse Oximetry (%) 94 L 01/02/20 09:00 Constitutional: Yes: No Distress, Calm Cardiovascular: Yes: S1, S2 Respiratory: Yes: Regular, CTA Bilaterally Gastrointestinal: Yes: Normal Bowel Sounds, Soft Musculoskeletal: Yes: WNL Extremities: Yes: WNL Wound/Incision: Yes: Other (wound vac in place) Neurological: Yes: Alert, Oriented Labs: CBC, BMP 01/02/20 05:35 01/02/20 05:35 INR, PTT INR 1.34 (0.83-1.09) H 12/26/19 14:20 Assessment/Plan this patient with h/o of epidural abscess and multiple medical problems coming in wiht sob and suspicion of wpound infection says drainage from the wound present continue current abx final plan awaited rest as per the team complete the course of abx
--- NOTE | 2020-01-02 12:08 | PN ---
Progress Note (short form) - Note Progress Note: 74F well known to [facility] Orthopaedic service now admitted w/CHF exacerbation. Pt. has chronic, draining lumbar spine wound, which is not the cause for admission. This is a chronic, stable condition. Pt. admitted due to SOB and cardiopulmonary concern. (+) RLE foot drop today as per medical hospitalist's neurological evaluation. Pt. has (+) history of RLE radiculopathy that was successfully treated with partial removal of lumbar spinal hardware and extensive neurosurgical decompression. Subsequently, patient developed recurrent epidural seromas/sterile fluid collections that caused a mass effect on local neural elements and recurrent rad iculopathy. This was successfully treated with in IR placed indwelling pigtail catheter. Collection drainage proportionately correlated with neurological improvement (despite gross deconditioning due to body habitus and sedentary functional status). Pigtail catheter was removed and patient was discharged home. Patient later presented with 500cc epidural collection, negative for infection. Despite multiple I&D's and wound vac treatment, epidural deadspace could not be filled in and remains a focus for recollection. At the time of these I&D's, extensive, expected epidural/epineural fibrosis and granulation tissue was identified; recurrent seroma/fluid collection unlikely to have mass effect on neural elements. Given new RLE neurological decline, we will obtain a new MRI L-spine w/o contrast to evaluate possible causes of stenosis and neurological compromise. We should NOT obtain a CT myelogram due to local wound complications and risk of epidural infection. A/P: 74F w/draining chronic lumbar wound (under control) sent to [facility] for admission and management of CHF exacerbation. -Obtain new MRI L-spine w/o contrast. -Will order heel-offloading AFO splint for use in bed and functional AFO splint for ambulation. -Care per primary cardiology team, as this is the purpose for this admission. -Pain medication: recommend oxyocodon 10mg PO q6h PRN pain (patient has multiple orthopaedic problems). -Maintain woundvac @ 125mmHg negative pressure therapy. -IV antibiotics as per Dr. Krueger (ID team); no indiction for Vancomycin; replace PICC line; consider chronic, suppressive antibiotic therapy. -DVT PPx: -Mechanical: MARLON's, SCD's. -Chemical: Xarelto qD. -f/u AM labs. -Incentive spirometry. -PT/OT/Rehab, OOB at least once daily, ideally 2-3 times daily. -WBAT B/L LE. -Advance diet as tolerated. -No heavy lifting (>5 lbs), bending or twisting. -B/L UE & LE NV checks. -Care per primary medical hospitalist team & ID team; no plan for surgical debridement at this time. Will remove Vac dressing Tuesday and re-evaluate wound at that time. -Will follow. Luis Borjas MD (Orthopaedic Surgery).
--- NOTE | 2020-01-02 12:36 | PN ---
Progress Note (short form) - Note Progress Note: Chief Complaint: leg swelling, sob History of Present Illness: no edema, chest pain, palps. only has dyspnea when worried about back pain, better with deep breaths Current Medications Generic Name Dose Route Start Last Admin Trade Name Freq PRN Reason Stop Dose Admin Acetaminophen 650 mg 12/29/19 20:32 01/01/20 23:31 Tylenol - PO 650 mg Q6H PRN Administration PAIN LEVEL 1-5 OR FEVER Baclofen 10 mg 12/29/19 20:32 12/30/19 21:48 Lioresal - PO 10 mg Q8H PRN Administration MUSCLE SPASM Carvedilol 12.5 mg 12/29/19 22:00 01/02/20 10:02 Coreg - PO 12.5 mg BID [facility] Administration Diazepam 10 mg 12/30/19 12:30 01/02/20 10:02 Valium - PO 10 mg DAILY [facility] Administration Ferrous Sulfate 325 mg 12/30/19 08:00 01/02/20 10:02 Feosol - PO 325 mg BIDWM [facility] Administration Gabapentin 600 mg 12/30/19 10:00 01/02/20 10:03 Neurontin - PO 600 mg DAILY [facility] Administration Ceftriaxone Sodium 1 gm/ 50 mls @ 100 mls/hr 01/01/20 17:45 01/02/20 10:01 Dextrose IVPB 100 mls/hr DAILY [facility] Administration Protocol Insulin Aspart 1 vial 12/29/19 22:00 01/02/20 12:00 Novolog Vial Sliding Scale - SQ Not Given ACHS [facility] Protocol Leflunomide 20 mg 12/30/19 10:00 01/02/20 10:01 Arava - PO 20 mg DAILY [facility] Administration Multi-Ingredient Lotion 1 applic 12/29/19 20:32 Eucerin (Small Jar) - TP Q24H PRN DRY SKIN Oxycodone HCl 10 mg 01/01/20 23:22 01/02/20 10:03 Roxicodone - PO 10 mg Q6H PRN Administration PAIN LEVEL 6-10 Pramipexole Dihydrochloride 0.25 mg 12/29/19 22:00 01/02/20 10:05 Mirapex - PO 0.25 mg BID [facility] Administration Rivaroxaban 20 mg 12/30/19 18:00 01/01/20 17:32 Xarelto PO 20 mg DAILY@1800 [facility] Administration Sacubitril/Valsartan 1 tab 12/29/19 10:00 01/02/20 10:04 Entresto 24 Mg-26 Mg Tablet PO 1 tab BID [facility] Administration Torsemide 50 mg 01/02/20 10:00 01/02/20 10:02 Demadex - PO 50 mg DAILY [facility] Administration Zolpidem Tartrate 5 mg 01/01/20 23:22 01/01/20 23:30 Ambien - PO 5 mg HS PRN Administration INSOMNIA Vital Signs Period Temp Pulse Resp BP Sys/Marcelo Pulse Ox Last 24 Hr 97.5 F-99.5 F 71-85 19-20 103-133/50-90 94-95 Constitutional: Yes: Well Nourished, No Distress, Calm Eyes: No: Ptosis, Sclera Icterus Neck: Yes: Supple Cardiovascular: Yes: Regular Rate and Rhythm Respiratory: Yes: Regular. 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 diabetic (uncontrolled glycemic status, does not f/u with PMD despite repeatedly advised to do so) -EF now moderately reduced (35-40%, global), last echo here 2018 was 50-55%. -has not had significant burden of AF, doubt tachy-CMP - in sinus on tele here - improved with IV lasix - cont torsemide - notes dyspnea worse with back pain, position changes -Cont Coreg -low dose DORENE held during recent admit due to mild hyperkalemia and soft BPs (was on lisinopril 5 qd then). given current EF, pt has mortality benefit from Entresto. K normal, BP currently mostly > 110. - cont 24-26 BID dose here, monitor K/BP closely. Prolonged QTC: -F/u ECGs -Keep K+ and Mg2+ normalized -Avoid / minimize QT prolonging meds VTach: -NSVT on tele -cont bb -HF optimization (diuresis) as doing -replete K/Mg to 4/2 PAF: -Cont Coreg and Xarelto -Holter to assess rate control DVT/PE with history of filter: -cont with AC NICHOLE: -not treated, pt has not followed up for cpap therapy
--- NOTE | 2020-01-02 14:36 | PN ---
Physical Exam: SUBJECTIVE: Patient seen and examined at the bedside, there were no acute events overnight. Pt states she has hip pain but no other complaints. OBJECTIVE: Vital Signs Period Temp Pulse Resp BP Sys/Marcelo Pulse Ox Last 24 Hr 97.5 F-99.5 F 73-85 19-20 103-124/48-90 94-95 GENERAL: The patient is awake, alert, and fully oriented, in no acute distress. HEENT: NCAT. Sclera clear. MMM. LUNGS: Breath sounds equal, clear to auscultation bilaterally, no wheezes, no crackles. HEART: Regular rate and rhythm, S1, S2 without murmur, rub or gallop. ABDOMEN: Soft, nontender, nondistended, normoactive bowel sounds, no guarding EXTREMITIES: 2+ pulses, warm, well-perfused, no edema. Back: Spinal surgical wound w/vac in place. No surrounding erythema or warmth. SKIN: Warm, dry, normal turgor Laboratory Results - last 24 hr 01/01/20 01/01/20 01/02/20 16:08 21:40 05:35 WBC RBC Hgb Hct MCV MCH MCHC RDW Plt Count MPV Sodium 137 Potassium 4.5 Chloride 102 Carbon Dioxide 26 Anion Gap 8 BUN 54.0 H Creatinine 1.4 H Est GFR (CKD-EPI)AfAm 43.09 Est GFR (CKD-EPI)NonAf 37.18 POC Glucometer 171 176 Random Glucose 168 H Calcium 8.3 L Total Bilirubin 0.6 AST 15 ALT < 6 L Alkaline Phosphatase 139 H Total Protein 6.3 L Albumin 2.8 L 01/02/20 01/02/20 05:35 06:22 WBC 6.9 RBC 3.89 Hgb 10.6 L Hct 32.5 MCV 83.4 MCH 27.1 MCHC 32.5 RDW 20.8 H Plt Count 265 MPV 7.9 Sodium Potassium Chloride Carbon Dioxide Anion Gap BUN Creatinine Est GFR (CKD-EPI)AfAm Est GFR (CKD-EPI)NonAf POC Glucometer 150 Random Glucose Calcium Total Bilirubin AST ALT Alkaline Phosphatase Total Protein Albumin Active Medications Generic Name Dose Route Start Last Admin Trade Name Freq PRN Reason Stop Dose Admin Acetaminophen 650 mg 12/29/19 20:32 01/01/20 23:31 Tylenol - PO 650 mg Q6H PRN Administration PAIN LEVEL 1-5 OR FEVER Baclofen 10 mg 12/29/19 20:32 12/30/19 21:48 Lioresal - PO 10 mg Q8H PRN Administration MUSCLE SPASM Carvedilol 12.5 mg 12/29/19 22:00 01/02/20 10:02 Coreg - PO 12.5 mg BID LISA Administration Diazepam 10 mg 12/30/19 12:30 01/02/20 10:02 Valium - PO 10 mg DAILY [facility] Administration Ferrous Sulfate 325 mg 12/30/19 08:00 01/02/20 10:02 Feosol - PO 325 mg BIDWM LISA Administration Gabapentin 600 mg 12/30/19 10:00 01/02/20 10:03 Neurontin - PO 600 mg DAILY [facility] Administration Ceftriaxone Sodium 1 gm/ 50 mls @ 100 mls/hr 01/01/20 17:45 01/02/20 10:01 Dextrose IVPB 100 mls/hr DAILY [facility] Administration Protocol Insulin Aspart 1 vial 12/29/19 22:00 01/02/20 12:00 Novolog Vial Sliding Scale - SQ Not Given ACHS [facility] Protocol Leflunomide 20 mg 12/30/19 10:00 01/02/20 10:01 Arava - PO 20 mg DAILY [facility] Administration Multi-Ingredient Lotion 1 applic 12/29/19 20:32 Eucerin (Small Jar) - TP Q24H PRN DRY SKIN Oxycodone HCl 10 mg 01/01/20 23:22 01/02/20 10:03 Roxicodone - PO 10 mg Q6H PRN Administration PAIN LEVEL 6-10 Pramipexole Dihydrochloride 0.25 mg 12/29/19 22:00 01/02/20 10:05 Mirapex - PO 0.25 mg BID [facility] Administration Rivaroxaban 20 mg 12/30/19 18:00 01/01/20 17:32 Xarelto PO 20 mg DAILY@1800 [facility] Administration Sacubitril/Valsartan 1 tab 12/29/19 10:00 01/02/20 10:04 Entresto 24 Mg-26 Mg Tablet PO 1 tab BID [facility] Administration Torsemide 50 mg 01/02/20 10:00 01/02/20 10:02 Demadex - PO 50 mg DAILY [facility] Administration Zolpidem Tartrate 5 mg 01/01/20 23:22 01/01/20 23:30 Ambien - PO 5 mg HS PRN Administration INSOMNIA ASSESSMENT/PLAN: 74 y.o. F PMH CHF (EF 35-40%), RA, DM 2, HTN, Hx DVT/PE, a fib (on Xarelto), known non-ischemic cardiomyopathy, multiple spine surgeries, s/p L4/5 laminectomy then L5/S1 seroma with recent epidural abscess drainage s/p I and D, complex wound closure and wound vac placement 11/25-sent home on IV Rocephin via PICC 12/03 who returned w/ shortness of breath for 3 days admitted for CHF exacerbation #Acute on chronic systolic-CHF exacerbation -COVID negative swabbed 12/25 -BNP on admission 6000s; decreasing -CXR 12/25: mild b/l interstitial markings -echo 12/26: LV sys function moderately reduced. EF 35-50%; moderate global hypokinesis of LV. LA dilation. Mod MR, trace TR. (previous Echo in 2018- w/ EF 55%) -s/p lasix and metolazone, pt currently euvolemic -resume torsemide 50PO daily -continue coreg 12.5mg PO BID -Entresto 24-26 BID -holding DORENE in setting of soft BPs & hyperkalemia -cardio following, appreciate reccs #Epidural Abscess -s/p I and D; discharged 12/03 on 4 week course of IV ceftriaxone via PICC (lost on Friday 12/29) -To be seen by Dr. Borjas, per Dr. Borjas, wound vac was placed this admission. Will be reassessed Tuesday. If no longer draining, will be changed to regular dressing prior to discharge. - maintain Wound vac @125mmHg neg pressure therapy and control pain -pain control: Oxy 10 Q6 PRN -receiving IV abx via peripheral IV, per Dr. Krueger pt will need IV ceftriaxone for a additional 9 days. If pt discharged prior to completion will need to picc line. Per Dr. Krueger, there is no needs for additional it manager PO antibiotics once she completes the ceftriaxone. -1 x blod cx staph epi likely contaminate- r/p blood cx negaive x2 #Possible new foot drop- pt with possible new R foot drop. Difficult to assess as patient is laying on her R side and has trouble rolling onto her back, as she states she has pain in her R hip and entire R leg. Pt is able to move/ lift leg, can slightly bend at knee but exam limited due to pain. Was not able to assess reflexes - MRI without contrast of L spine to r/o extension of abscess #Paroxysmal Atrial Fibrillation -continue Coreg -Xarelto 20mg daily -Holter as per cardio to assess rate control #Hx PE/DVT -c/w Xarelto #DM -HbA1c 9.0% -BGMs, ISS ACHS -hld home oral agents #RA -c/w Leflunomide #Normocytic Anemia -2/2 to anemia of chronic disease -Iron/Ferritin/B12/Folate levels- consistent with above -continue feosol #NICHOLE not treated, pt has not followed up for cpap therapy #DVT Ppx on Xarelto #FEN -no standing fluids -monitor lytes -Diabetic diet Dispo: cont to monitor on tele Visit type - Emergency Visit Emergency Visit: Yes ED Registration Date: 12/26/19 Care time: The patient presented to the Emergency Department on the above date and was hospitalized for further evaluation of their emergent condition. - New Patient This patient is new to me today: No - Critical Care Critical Care patient: No - Discharge Referral Referred to [facility] Med [facility].C.: No ATTENDING PHYSICIAN STATEMENT I saw and evaluated the patient. I reviewed the resident's note and discussed the case with the resident. I agree with the resident's findings and plan as documented. SUBJECTIVE: OBJECTIVE: ASSESSMENT AND PLAN:
[2020-01-02] MEDS: RIVAROXABAN 20 MG TABLET PO SCH (22:05)
[2020-01-02] MEDS: ZOLPIDEM TARTRATE 5 MG TABLET PO PRN (22:05)
[2020-01-03] MEDS: ACETAMINOPHEN 325 MG TABLET (FP) PO PRN (06:13)
[2020-01-03] MEDS: oxyCODONE HCL 5 MG TABLET PO PRN ×2 (06:13→21:19)
[2020-01-03] MEDS: INSULIN SLIDING SCALE (NOVOLOG) 1 VIAL SQ SCH ×4 (06:19→21:18)
[2020-01-03 07:48] LABS: HEMATOCRIT 33.4 % (32.4-45.2); HEMOGLOBIN 10.7 GM/dL (10.7-15.3); MCH 27.1 pg (25.7-33.7); MCHC 31.9 g/dl (32.0-36.0); MEAN CELL VOLUME 85.1 fl (80-96); MEAN PLT VOLUME 7.9 fl (7.5-11.1); PLATELET COUNT 243 K/MM3 (134-434); RBC 3.93 M/mm3 (3.60-5.2); RDW 20.6 % (11.6-15.6); WHITE BLOOD COUNT 5.2 K/mm3 (4.0-10.0)
[2020-01-03 08:28] LABS: ALBUMIN 2.8 g/dl (3.4-5.0); ALK PHOS 134 U/L (45-117); ANION GAP 9 MMOL/L (8-16); BILIRUBIN,TOTAL 0.4 mg/dL (0.2-1); BLOOD UREA NITROGEN 56.6 mg/dL (7-18); CALCIUM 8.7 mg/dL (8.5-10.1); CHLORIDE 102 mmol/L (98-107); CO2 25 mmol/L (21-32); CREATININE 1.2 mg/dL (0.55-1.3); GLUCOSE,RANDOM 182 mg/dL (74-106); POTASSIUM 4.8 mmol/L (3.5-5.1); SGOT/AST 16 U/L (15-37); SGPT/ALT < 6 U/L (13-61); SODIUM 135 mmol/L (136-145); TOT PROT 6.5 g/dl (6.4-8.2)
[2020-01-03] MEDS: FERROUS SO4 325 MG TABLET (FP) PO SCH ×2 (08:36→17:00)
--- NOTE | 2020-01-03 08:57 | PN ---
Progress Note (short form) - Note Progress Note: 74F well known to [facility] Orthopaedic service now admitted w/CHF exacerbation. Pt. has chronic, draining lumbar spine wound, which is not the cause for admission. This is a chronic, stable condition. Pt. admitted due to SOB and cardiopulmonary concern. (+) New RLE foot drop as of yesterday. MRI L-Spine Reviewed: Epidural fluid collection causing stenosis of the thecal sac due to mass effect. Please refer to radiology report for further details. A/P: 74F w/draining chronic lumbar wound (under control) sent to [facility] for admission and management of CHF exacerbation. -Recommend IR-guided drainage of lumbar epidural fluid collection with placement of indwelling pigtail catheter to continue draining deadspace. -Ordered heel-offloading AFO splint for use in bed and functional AFO splint for ambulation; should be arriving today. -Care per primary cardiology team, as this is the purpose for this admission. -Pain medication: recommend oxyocodon 10mg PO q6h PRN pain (patient has multiple orthopaedic problems). -Wound vac can be removed and patient can be converted to dry dressing changes if incision is clean and dry. -IV antibiotics as per Dr. Krueger (ID team); no indiction for Vancomycin; replace PICC line; consider chronic, suppressive antibiotic therapy. -DVT PPx: -Mechanical: MARLON's, SCD's. -Chemical: Xarelto qD. -f/u AM labs. -Incentive spirometry. -PT/OT/Rehab, OOB at least once daily, ideally 2-3 times daily. -WBAT B/L LE. -Advance diet as tolerated. -No heavy lifting (>5 lbs), bending or twisting. -B/L UE & LE NV checks. -Care per primary medical hospitalist team & ID team; no plan for surgical debridement at this time. -Will follow. Luis Borjas MD (Orthopaedic Surgery).
[2020-01-03] MEDS ORDERED: DEXTROSE 5%-WATER - 50 ML IVPB ONE (09:47)
[2020-01-03] MEDS ORDERED: cefTRIAXone SODIUM 1 GM VIAL ONE (09:47)
[2020-01-03] MEDS ORDERED: PT OWN MED DRAWER 7, Y5N ONE ×2 (09:48→21:10)
[2020-01-03] MEDS: CEFTRIAXONE 1 GM in DEXTROSE 5%-WATER - 50 ML IVPB SCH (10:12)
[2020-01-03] MEDS: SACUBITRIL/VALSARTAN 24 MG-26 MG TABLET PO SCH ×2 (10:13→21:18)
[2020-01-03] MEDS: diazePAM 5 MG TABLET PO SCH (10:13)
[2020-01-03] MEDS: GABAPENTIN 300 MG CAPSULE PO SCH (10:13)
[2020-01-03] MEDS: PRAMIPEXOLE DIHYDROCHLORIDE 0.25 MG TABLET PO SCH ×2 (10:13→21:19)
[2020-01-03] MEDS: LEFLUNOMIDE 10 MG TABLET PO SCH (10:13)
[2020-01-03] MEDS: TORSEMIDE 100 MG TABLET PO SCH (10:13)
[2020-01-03] MEDS: CARVEDILOL 12.5 MG TABLET (FP) PO SCH ×2 (10:14→21:19)
--- NOTE | 2020-01-03 11:04 | PN ---
Physical Exam: SUBJECTIVE: Patient seen this morning and complains of chronic pain. OBJECTIVE: Vital Signs Period Temp Pulse Resp BP Sys/Marcelo Pulse Ox Last 24 Hr 97.6 F-97.7 F 72-78 18-20 96-114/47-58 GENERAL: The patient is awake, alert, and fully oriented, in no acute distress. HEAD: Normal with no signs of trauma. EYES: PERRL, extraocular movements ENT: moist mucous membranes. LUNGS: Breath sounds equal, clear to auscultation bilaterally, no wheezes, no crackles, no accessory muscle use. HEART: Regular rate and rhythm, S1, S2 without murmur, rub or gallop. ABDOMEN: Soft, nontender, nondistended, normoactive bowel sounds, no guarding, no rebound, no hepatosplenomegaly, no masses. EXTREMITIES: no edema. NEUROLOGICAL: R foot drop, sensation decreased on right side compared to left, muslce strength intact, cannot dorsi flex right foot PSYCH: Normal mood, normal affect. SKIN: large wound vac over lower back Laboratory Results - last 24 hr 12/26/19 01/02/20 01/02/20 20:50 16:43 21:40 WBC RBC Hgb Hct MCV MCH MCHC RDW Plt Count MPV Sodium Potassium Chloride Carbon Dioxide Anion Gap BUN Creatinine Est GFR (CKD-EPI)AfAm Est GFR (CKD-EPI)NonAf POC Glucometer 144 222 Random Glucose Calcium Total Bilirubin AST ALT Alkaline Phosphatase Creatine Kinase Cancelled Total Protein Albumin 01/03/20 01/03/20 01/03/20 05:50 05:50 06:14 WBC 5.2 RBC 3.93 Hgb 10.7 Hct 33.4 MCV 85.1 MCH 27.1 MCHC 31.9 L RDW 20.6 H Plt Count 243 MPV 7.9 Sodium 135 L Potassium 4.8 Chloride 102 Carbon Dioxide 25 Anion Gap 9 BUN 56.6 H Creatinine 1.2 Est GFR (CKD-EPI)AfAm 51.92 Est GFR (CKD-EPI)NonAf 44.80 POC Glucometer 185 Random Glucose 182 H Calcium 8.7 Total Bilirubin 0.4 AST 16 ALT < 6 L Alkaline Phosphatase 134 H Creatine Kinase Total Protein 6.5 Albumin 2.8 L Active Medications Generic Name Dose Route Start Last Admin Trade Name Freq PRN Reason Stop Dose Admin Acetaminophen 650 mg 12/29/19 20:32 01/03/20 06:13 Tylenol - PO 650 mg Q6H PRN Administration PAIN LEVEL 1-5 OR FEVER Baclofen 10 mg 12/29/19 20:32 12/30/19 21:48 Lioresal - PO 10 mg Q8H PRN Administration MUSCLE SPASM Carvedilol 12.5 mg 12/29/19 22:00 01/03/20 10:14 Coreg - PO 12.5 mg BID LISA Administration Diazepam 10 mg 12/30/19 12:30 01/03/20 10:13 Valium - PO 10 mg DAILY LISA Administration Ferrous Sulfate 325 mg 12/30/19 08:00 01/03/20 08:36 Feosol - PO 325 mg BIDWM LISA Administration Gabapentin 600 mg 12/30/19 10:00 01/03/20 10:13 Neurontin - PO 600 mg DAILY LISA Administration Ceftriaxone Sodium 1 gm/ 50 mls @ 100 mls/hr 01/01/20 17:45 01/03/20 10:12 Dextrose IVPB 100 mls/hr DAILY LISA Administration Protocol Insulin Aspart 1 vial 12/29/19 22:00 01/03/20 06:19 Novolog Vial Sliding Scale - SQ 2 units ACHS LISA Administration Protocol Leflunomide 20 mg 12/30/19 10:00 01/03/20 10:13 Arava - PO 20 mg DAILY LISA Administration Multi-Ingredient Lotion 1 applic 12/29/19 20:32 Eucerin (Small Jar) - TP Q24H PRN DRY SKIN Oxycodone HCl 10 mg 01/01/20 23:22 01/03/20 06:13 Roxicodone - PO 10 mg Q6H PRN Administration PAIN LEVEL 6-10 Pramipexole Dihydrochloride 0.25 mg 12/29/19 22:00 01/03/20 10:13 Mirapex - PO 0.25 mg BID LISA Administration Rivaroxaban 20 mg 12/30/19 18:00 01/02/20 22:05 Xarelto PO 20 mg DAILY@1800 LISA Administration Sacubitril/Valsartan 1 tab 12/29/19 10:00 01/03/20 10:13 Entresto 24 Mg-26 Mg Tablet PO 1 tab BID LISA Administration Torsemide 50 mg 01/02/20 10:00 01/03/20 10:13 Demadex - PO 50 mg DAILY LISA Administration Zolpidem Tartrate 5 mg 01/01/20 23:22 01/02/20 22:05 Ambien - PO 5 mg HS PRN Administration INSOMNIA ASSESSMENT/PLAN: 74 y.o. F PMH CHF (EF 35-40%), RA, DM 2, HTN, Hx DVT/PE, a fib (on Xarelto), known non-ischemic cardiomyopathy, multiple spine surgeries, s/p L4/5 laminectomy then L5/S1 seroma with recent epidural abscess drainage s/p I and D, complex wound closure and wound vac placement 11/25-sent home on IV Rocephin via PICC 12/03 who returned w/ shortness of breath for 3 days admitted for CHF exacerbation #acute on chronic systolic CHF exacerbation - COVID negative - torsemide 50 daily - carevdilol 12.5 bid - entresto bid - continue to monitor weights and I's and O's - avoid QTC prolonging agents - EF moderately reduced 35-40% - low dose DORENE held with labile BP's and hyperkalemia #Epidural abscess - s/p I&D on 12/03 - patient to have a drainage tomorrow with IR as per Dr. Borjas - new foot drop repeat lumbar MRI : impingment of L4, herniation that would effect L4-L5, epidural abscess decreased in size - decrease in size of previously visualized large posterior lumbar spine collection - currently on Ceftriaxone, 9 days left of IV treatment, wound vac in place - followed by Dr. Krueger - oxycodone for pain , gabapentin for neuropathy #paroxysmal afib - continue carvedilol - xarelto held for drain placement tomorrow DVT ppx: on xarelto but held for drain placement tomorrow FEN: Diabetic diet dispo: patient can be transferred to med surg, for drainage placement tomorrow, f/u with Dr. Borjas for outpatient reccomendations Visit type - Emergency Visit Emergency Visit: No - New Patient This patient is new to me today: No - Critical Care Critical Care patient: No ATTENDING PHYSICIAN STATEMENT I saw and evaluated the patient. I reviewed the resident's note and discussed the case with the resident. I agree with the resident's findings and plan as documented. SUBJECTIVE: OBJECTIVE: ASSESSMENT AND PLAN:
--- NOTE | 2020-01-03 12:01 | PN ---
Progress Note (short form) - Note Progress Note: Chief Complaint: leg swelling, sob History of Present Illness: no edema, chest pain, palps, sob, dizzy Current Medications Generic Name Dose Route Start Last Admin Trade Name Freq PRN Reason Stop Dose Admin Acetaminophen 650 mg 12/29/19 20:32 01/03/20 06:13 Tylenol - PO 650 mg Q6H PRN Administration PAIN LEVEL 1-5 OR FEVER Baclofen 10 mg 12/29/19 20:32 12/30/19 21:48 Lioresal - PO 10 mg Q8H PRN Administration MUSCLE SPASM Carvedilol 12.5 mg 12/29/19 22:00 01/03/20 10:14 Coreg - PO 12.5 mg BID LISA Administration Diazepam 10 mg 12/30/19 12:30 01/03/20 10:13 Valium - PO 10 mg DAILY LISA Administration Ferrous Sulfate 325 mg 12/30/19 08:00 01/03/20 08:36 Feosol - PO 325 mg BIDWM LISA Administration Gabapentin 600 mg 12/30/19 10:00 01/03/20 10:13 Neurontin - PO 600 mg DAILY LISA Administration Ceftriaxone Sodium 1 gm/ 50 mls @ 100 mls/hr 01/01/20 17:45 01/03/20 10:12 Dextrose IVPB 100 mls/hr DAILY LISA Administration Protocol Insulin Aspart 1 vial 12/29/19 22:00 01/03/20 06:19 Novolog Vial Sliding Scale - SQ 2 units ACHS LISA Administration Protocol Leflunomide 20 mg 12/30/19 10:00 01/03/20 10:13 Arava - PO 20 mg DAILY LISA Administration Multi-Ingredient Lotion 1 applic 12/29/19 20:32 Eucerin (Small Jar) - TP Q24H PRN DRY SKIN Oxycodone HCl 10 mg 01/01/20 23:22 01/03/20 06:13 Roxicodone - PO 10 mg Q6H PRN Administration PAIN LEVEL 6-10 Pramipexole Dihydrochloride 0.25 mg 12/29/19 22:00 01/03/20 10:13 Mirapex - PO 0.25 mg BID LISA Administration Rivaroxaban 20 mg 12/30/19 18:00 01/02/20 22:05 Xarelto PO 20 mg DAILY@1800 LISA Administration Sacubitril/Valsartan 1 tab 12/29/19 10:00 01/03/20 10:13 Entresto 24 Mg-26 Mg Tablet PO 1 tab BID LISA Administration Torsemide 50 mg 01/02/20 10:00 01/03/20 10:13 Demadex - PO 50 mg DAILY LISA Administration Zolpidem Tartrate 5 mg 01/01/20 23:22 01/02/20 22:05 Ambien - PO 5 mg HS PRN Administration INSOMNIA Vital Signs Period Temp Pulse Resp BP Sys/Marcelo Pulse Ox Last 24 Hr 97.6 F-97.7 F 72-78 96-114/47-58 Constitutional: Yes: Well Nourished, No Distress, Calm Eyes: No: Ptosis, Sclera Icterus Neck: Yes: Supple Cardiovascular: Yes: Regular Rate and Rhythm Respiratory: Yes: Regular. No: Accessory Muscle Use Extremities: No: Cyanosis Edema: No Neurological: Yes: Alert, Oriented Psychiatric: No: Agitated Laboratory Last Values WBC 5.2 K/mm3 (4.0-10.0) 01/03/20 05:50 RBC 3.93 M/mm3 (3.60-5.2) 01/03/20 05:50 Hgb 10.7 GM/dL (10.7-15.3) 01/03/20 05:50 Hct 33.4 % (32.4-45.2) 01/03/20 05:50 MCV 85.1 fl (80-96) 01/03/20 05:50 MCH 27.1 pg (25.7-33.7) 01/03/20 05:50 MCHC 31.9 g/dl (32.0-36.0) L 01/03/20 05:50 RDW 20.6 % (11.6-15.6) H 01/03/20 05:50 Plt Count 243 K/MM3 (134-434) 01/03/20 05:50 MPV 7.9 fl (7.5-11.1) 01/03/20 05:50 Absolute Neuts (auto) 3.1 K/mm3 (1.5-8.0) 12/31/19 06:30 Neutrophils % 51.1 % (42.8-82.8) 12/31/19 06:30 Lymphocytes % 27.2 % (8-40) 12/31/19 06:30 Monocytes % 12.7 % (3.8-10.2) H 12/31/19 06:30 Eosinophils % 7.6 % (0-4.5) H D 12/31/19 06:30 Basophils % 1.4 % (0-2.0) 12/31/19 06:30 Nucleated RBC % 0 % (0-0) 12/31/19 06:30 PT with INR 15.90 SEC (9.7-13.0) H 12/26/19 14:20 INR 1.34 (0.83-1.09) H 12/26/19 14:20 PTT (Actin FS) 32.7 SECONDS (25.2-36.5) 12/26/19 14:20 VBG pH 7.35 (7.31-7.41) 12/26/19 14:20 POC VBG pCO2 50.2 mmHg (38-52) 12/26/19 14:20 POC VBG pO2 < 49 mmHg (28-48) H 12/26/19 14:20 VBG HCO3 27.2 mmol/L (23-29) 12/26/19 14:20 VBG O2 Sat (Mihcael) 79.1 % (70-80) 12/26/19 14:20 VBG Base Excess 1.1 mmol/L (-2-2) 12/26/19 14:20 Sodium 135 mmol/L (136-145) L 01/03/20 05:50 Potassium 4.8 mmol/L (3.5-5.1) 01/03/20 05:50 Chloride 102 mmol/L (98-107) 01/03/20 05:50 Carbon Dioxide 25 mmol/L (21-32) 01/03/20 05:50 Anion Gap 9 MMOL/L (8-16) 01/03/20 05:50 BUN 56.6 mg/dL (7-18) H 01/03/20 05:50 Creatinine 1.2 mg/dL (0.55-1.3) 01/03/20 05:50 Est GFR (CKD-EPI)AfAm 51.92 01/03/20 05:50 Est GFR (CKD-EPI)NonAf 44.80 01/03/20 05:50 POC Glucometer 240 UNITS (80-120) 01/03/20 11:14 Random Glucose 182 mg/dL (74-106) H 01/03/20 05:50 Lactic Acid 1.5 mmol/L (0.4-2.0) 12/26/19 14:20 Calcium 8.7 mg/dL (8.5-10.1) 01/03/20 05:50 Phosphorus 3.3 mg/dL (2.5-4.9) 12/31/19 06:30 Magnesium 2.3 mg/dL (1.8-2.4) 12/31/19 06:30 Iron 22 ug/dL (50-175) L 12/28/19 09:35 TIBC 307 ug/dL (250-450) 12/28/19 09:35 Iron Saturation 7 % (17.5-39) L 12/28/19 09:35 Unsaturated IBC 285 ug/dL (200-275) H 12/28/19 09:35 Ferritin 43.1 ng/ml (8-388) 12/28/19 09:35 Total Bilirubin 0.4 mg/dL (0.2-1) 01/03/20 05:50 AST 16 U/L (15-37) 01/03/20 05:50 ALT < 6 U/L (13-61) L 01/03/20 05:50 Alkaline Phosphatase 134 U/L (45-117) H 01/03/20 05:50 LD Total 603 U/L (84-246) H 12/26/19 14:20 Creatine Kinase 136 U/L (26-192) 12/26/19 20:50 Creatine Kinase Cancelled 12/26/19 20:50 Troponin I < 0.02 ng/ml (0.00-0.05) 12/28/19 19:40 C-Reactive Protein 3.5 MG/DL (0.00-0.3) H 12/26/19 14:20 B-Natriuretic Peptide 3077.7 pg/ml (5-125) H 12/30/19 07:20 Total Protein 6.5 g/dl (6.4-8.2) 01/03/20 05:50 Albumin 2.8 g/dl (3.4-5.0) L 01/03/20 05:50 Vitamin B12 352 pg/ml (193-986) 12/28/19 09:35 Serum Folate 17 ng/mL (3.1-17.5) 12/28/19 09:35 COVID-19 ([facility]) Not detected (Not Detected) 12/26/19 14:20 Blood Type O POSITIVE 12/26/19 14:20 Antibody Screen Negative 12/26/19 14:20 Assessment/Plan tele: sr IMP: Epidural abscess, wound infection Acute on chronic systolic CHF, with what appears to be new LV dysfx from 2018 Moderate MR Prolonged QT PAF HTN 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 diabetic (uncontrolled glycemic status, does not f/u with PMD despite repeatedly advised to do so) -EF now moderately reduced (35-40%, global), last echo here 2018 was 50-55%. -has not had significant burden of AF, doubt tachy-CMP - in sinus on tele here -improved with IV lasix, now on po, cont torsemide -Cont Coreg -low dose DORENE held during recent admit due to mild hyperkalemia and soft BPs (was on lisinopril 5 qd then). given current EF, pt has mortality benefit from Entresto. K normal, BP currently mostly > 110. - cont 24-26 BID dose here Prolonged QTC: -F/u ECGs -Keep K+ and Mg2+ normalized -Avoid / minimize QT prolonging meds VTach: -NSVT on tele -cont bb -HF optimization (diuresis) as doing -replete K/Mg to 4/2 PAF: -Cont Coreg and Xarelto -Holter to assess rate control DVT/PE with history of filter: -cont with AC NICHOLE: -not treated, pt has not followed up for cpap therapy cardiac hallman stable
--- NOTE | 2020-01-03 13:43 | PN ---
Progress Note, Physician History of Present Illness: c/o of itching says allergic to tape - Current Medication List Current Medications: Active Medications Acetaminophen (Tylenol -) 650 mg PO Q6H PRN PRN Reason: PAIN LEVEL 1-5 OR FEVER Last Admin: 01/03/20 06:13 Dose: 650 mg Documented by: Baclofen (Lioresal -) 10 mg PO Q8H PRN PRN Reason: MUSCLE SPASM Last Admin: 12/30/19 21:48 Dose: 10 mg Documented by: Carvedilol (Coreg -) 12.5 mg PO BID [facility] Last Admin: 01/03/20 10:14 Dose: 12.5 mg Documented by: Diazepam (Valium -) 10 mg PO DAILY [facility] Last Admin: 01/03/20 10:13 Dose: 10 mg Documented by: Ferrous Sulfate (Feosol -) 325 mg PO BIDWM [facility] Last Admin: 01/03/20 08:36 Dose: 325 mg Documented by: Gabapentin (Neurontin -) 600 mg PO DAILY [facility] Last Admin: 01/03/20 10:13 Dose: 600 mg Documented by: Ceftriaxone Sodium 1 gm/ (Dextrose) 50 mls @ 100 mls/hr IVPB DAILY [facility]; Protocol Last Admin: 01/03/20 10:12 Dose: 100 mls/hr Documented by: Insulin Aspart (Novolog Vial Sliding Scale -) 1 vial SQ ACHS [facility]; Protocol Last Admin: 01/03/20 12:21 Dose: 4 units Documented by: Leflunomide (Arava -) 20 mg PO DAILY [facility] Last Admin: 01/03/20 10:13 Dose: 20 mg Documented by: Multi-Ingredient Lotion (Eucerin (Small Jar) -) 1 applic TP Q24H PRN PRN Reason: DRY SKIN Oxycodone HCl (Roxicodone -) 10 mg PO Q6H PRN PRN Reason: PAIN LEVEL 6-10 Last Admin: 01/03/20 06:13 Dose: 10 mg Documented by: Pramipexole Dihydrochloride (Mirapex -) 0.25 mg PO BID [facility] Last Admin: 01/03/20 10:13 Dose: 0.25 mg Documented by: Rivaroxaban (Xarelto) 20 mg PO DAILY@1800 [facility] Last Admin: 01/02/20 22:05 Dose: 20 mg Documented by: Sacubitril/Valsartan (Entresto 24 Mg-26 Mg Tablet) 1 tab PO BID [facility] Last Admin: 01/03/20 10:13 Dose: 1 tab Documented by: Torsemide (Demadex -) 50 mg PO DAILY [facility] Last Admin: 01/03/20 10:13 Dose: 50 mg Documented by: Zolpidem Tartrate (Ambien -) 5 mg PO HS PRN PRN Reason: INSOMNIA Last Admin: 01/02/20 22:05 Dose: 5 mg Documented by: - Objective Vital Signs: Vital Signs Temperature 97.6 F 01/03/20 02:00 Pulse Rate 78 01/03/20 06:20 Respiratory Rate 01/03/20 06:20 Blood Pressure 96/47 L 01/03/20 06:20 O2 Sat by Pulse Oximetry (%) 94 L 01/02/20 09:00 Constitutional: Yes: No Distress, Calm Cardiovascular: Yes: S1, S2 Respiratory: Yes: Regular, CTA Bilaterally Gastrointestinal: Yes: Normal Bowel Sounds, Soft Musculoskeletal: Yes: Other Extremities: Yes: Other Wound/Incision: Yes: Other (wound vac in place) Psychiatric: Yes: Other Labs: CBC, BMP 01/03/20 05:50 01/03/20 05:50 INR, PTT INR 1.34 (0.83-1.09) H 12/26/19 14:20 Assessment/Plan this patient with h/o of epidural abscess and multiple medical problems coming in wiht sob and suspicion of wpound infection says drainage from the wound present continue current abx final plan awaited rest as per the team complete the course of abx
--- NOTE | 2020-01-03 15:55 | PN ---
Teaching Attending Note Name of Resident: Do Santo ATTENDING PHYSICIAN STATEMENT I saw and evaluated the patient. I reviewed the resident's note and discussed the case with the resident. I agree with the resident's findings and plan as documented. SUBJECTIVE: No fever or chills . has pain in hip. patient provide different stories to di fferent providers. she said her foot drop is present since july [address] dwyer, she said foot drop is new . no SOB , No CP. OBJECTIVE: NAD, awake, cooperative CV: RRR. No JVD. Lungs: CTAB Ext: No edema on upper or lower extremities. MS: lower back wound vac with no surrounding erythema or discharge noted Neuro or LE: L: hip flexion 4/5 limited by hip pain. knee felxion /extenstion 5/5 , ankle dorsiflexion/plantar flexion 5/5 R: hip flexion 3/5. knee felxion /extenstion 5/5 , ankle dorsiflexion 0, ankle plantar flexion 5/5 A/P: 74 year old lady with history of CHF, RA, DM 2, HTN, Hx DVT/PE, a fib (on Xarelto), multiple spine surgeries, s/p L4/5 laminectomy then L5/S1 seroma with recent epidural abscess drainage s/p I and D - sent home on IV Rocephin via PICC 12/03 now returns with SOB , she was found to have acute CHF exa 1- Acute on chronic systolic CHF. euvolemic now. - cont po torsemide - cont entresto 2- H/o Epidural abscess s/p I&D. Now has wound vac that was applied this admission. - MRI reviewed. fluid collection causing mass effect on causing severe spinal stenosis at the level of L-L5. disc herniation L5-S1 with compression of L5 nerve root. - Mass effect explains quadriceps weakness and foot drop on R side. - plan for IR drainage and placement of Pig tail. - CrCl 59%. if this procedure is considered low risk for bleeding then it is ok to hold xarelto x 24 hour before procedure. if it is considered high risk , then xarelto has to be held x 48 hours. last dose was given 01/02/20 PM - cont IV abx - will resume Ceftriaxone at dc 3- Paroxysmal Atrial Fibrillation - continue Coreg and Xarelto 4- Hx PE/DVT s/p IVC filter - hold Xarelto for procedure 5. DM 2: cont SSI. 6.H/o RA : on Leflunomide. 7- Normocytic Anemia - possible iron def with B12 def . MMA pending . cont iron further w/u as out pt 8. NICHOLE - needs out-patient follow up for CPAP machine DVT Px - on Xarelto. HLOC Transfer to MEd-Surg
[2020-01-03] MEDS: DOCUSATE SODIUM 100 MG CAPSULE (FP) PO SCH (17:00)
[2020-01-03] MEDS: BACLOFEN 10 MG TABLET (FP) PO PRN (21:18)
[2020-01-03] MEDS: ZOLPIDEM TARTRATE 5 MG TABLET PO PRN (22:27)
[2020-01-04] MEDS: INSULIN SLIDING SCALE (NOVOLOG) 1 VIAL SQ SCH ×4 (06:06→21:08)
[2020-01-04] MEDS: oxyCODONE HCL 5 MG TABLET PO PRN (06:22)
[2020-01-04 07:19] LABS: HEMATOCRIT 33.8 % (32.4-45.2); HEMOGLOBIN 10.9 GM/dL (10.7-15.3); MCH 27.3 pg (25.7-33.7); MCHC 32.2 g/dl (32.0-36.0); MEAN CELL VOLUME 84.8 fl (80-96); MEAN PLT VOLUME 7.8 fl (7.5-11.1); PLATELET COUNT 265 K/MM3 (134-434); RBC 3.99 M/mm3 (3.60-5.2); RDW 21.2 % (11.6-15.6); WHITE BLOOD COUNT 5.9 K/mm3 (4.0-10.0)
[2020-01-04 07:44] LABS: ALBUMIN 2.9 g/dl (3.4-5.0); ALK PHOS 137 U/L (45-117); ANION GAP 9 MMOL/L (8-16); BILIRUBIN,TOTAL 0.9 mg/dL (0.2-1); BLOOD UREA NITROGEN 60.7 mg/dL (7-18); CALCIUM 8.8 mg/dL (8.5-10.1); CHLORIDE 100 mmol/L (98-107); CO2 26 mmol/L (21-32); CREATININE 1.5 mg/dL (0.55-1.3); GLUCOSE,RANDOM 201 mg/dL (74-106); MAGNESIUM 2.8 mg/dL (1.8-2.4); PHOSPHOROUS 4.5 mg/dL (2.5-4.9); SGOT/AST 21 U/L (15-37); SODIUM 135 mmol/L (136-145); TOT PROT 6.8 g/dl (6.4-8.2)
[2020-01-04 08:01] LABS: SGPT/ALT < 6 U/L (13-61)
--- NOTE | 2020-01-04 09:14 | PN ---
Progress Note, Physician Chief Complaint: denies CP, feeling better Less SOB History of Present Illness: Chronic mixed CHF AF NICHOLE - Current Medication List Current Medications: Active Medications Acetaminophen (Tylenol -) 650 mg PO Q6H PRN PRN Reason: PAIN LEVEL 1-5 OR FEVER Last Admin: 01/03/20 06:13 Dose: 650 mg Documented by: Baclofen (Lioresal -) 10 mg PO Q8H PRN PRN Reason: MUSCLE SPASM Last Admin: 01/03/20 21:18 Dose: 10 mg Documented by: Carvedilol (Coreg -) 12.5 mg PO BID [facility] Last Admin: 01/03/20 21:19 Dose: 12.5 mg Documented by: Diazepam (Valium -) 10 mg PO DAILY [facility] Last Admin: 01/03/20 10:13 Dose: 10 mg Documented by: Docusate Sodium (Colace -) 100 mg PO DAILY [facility] Last Admin: 01/03/20 17:00 Dose: 100 mg Documented by: Ferrous Sulfate (Feosol -) 325 mg PO BIDWM [facility] Last Admin: 01/03/20 17:00 Dose: 325 mg Documented by: Gabapentin (Neurontin -) 600 mg PO DAILY [facility] Last Admin: 01/03/20 10:13 Dose: 600 mg Documented by: Ceftriaxone Sodium 1 gm/ (Dextrose) 50 mls @ 100 mls/hr IVPB DAILY [facility]; Protocol Last Admin: 01/03/20 10:12 Dose: 100 mls/hr Documented by: Insulin Aspart (Novolog Vial Sliding Scale -) 1 vial SQ ACHS [facility]; Protocol Last Admin: 01/04/20 06:06 Dose: Not Given Documented by: Leflunomide (Arava -) 20 mg PO DAILY [facility] Last Admin: 01/03/20 10:13 Dose: 20 mg Documented by: Multi-Ingredient Lotion (Eucerin (Small Jar) -) 1 applic TP Q24H PRN PRN Reason: DRY SKIN Oxycodone HCl (Roxicodone -) 10 mg PO Q6H PRN PRN Reason: PAIN LEVEL 6-10 Last Admin: 01/04/20 06:22 Dose: 10 mg Documented by: Pramipexole Dihydrochloride (Mirapex -) 0.25 mg PO BID [facility] Last Admin: 01/03/20 21:19 Dose: 0.25 mg Documented by: Rivaroxaban (Xarelto) 20 mg PO DAILY@1800 [facility] Last Admin: 01/02/20 22:05 Dose: 20 mg Documented by: Sacubitril/Valsartan (Entresto 24 Mg-26 Mg Tablet) 1 tab PO BID [facility] Last Admin: 01/03/20 21:18 Dose: 1 tab Documented by: Torsemide (Demadex -) 50 mg PO DAILY [facility] Last Admin: 01/03/20 10:13 Dose: 50 mg Documented by: Zolpidem Tartrate (Ambien -) 5 mg PO PRN PRN Reason: INSOMNIA Last Admin: 01/03/20 22:27 Dose: 5 mg Documented by: - Objective Vital Signs: Vital Signs Temperature 97.8 F 01/04/20 02:00 Pulse Rate 71 01/04/20 02:00 Respiratory Rate 20 01/04/20 02:00 Blood Pressure 110/55 L 01/04/20 02:00 O2 Sat by Pulse Oximetry (%) 96 01/03/20 20:50 Constitutional: Yes: No Distress, Calm Cardiovascular: Yes: Regular Rate and Rhythm Respiratory: Yes: CTA Bilaterally (no rales or wheezing) Gastrointestinal: Yes: Soft (nt), Abdomen, Obese Edema: Yes Edema: LLE: Trace, RLE: Trace Neurological: Yes: Alert, Oriented ...Motor Strength: WNL Psychiatric: Yes: WNL Labs: CBC, BMP 01/04/20 06:22 01/04/20 06:22 INR, PTT INR 1.34 (0.83-1.09) H 12/26/19 14:20 Microbiology 12/28/19 19:40 Blood - Peripheral Venous Blood Culture - Final NO GROWTH AFTER 5 DAYS INCUBATION 12/26/19 14:20 Blood - Peripheral Venous Blood Culture - Final NO GROWTH AFTER 5 DAYS INCUBATION Laboratory Tests 12/26/19 12/26/19 12/26/19 14:20 14:20 14:20 WBC Hgb Plt Count INR 1.34 H Sodium Potassium BUN Creatinine Random Glucose Troponin I < 0.02 B-Natriuretic Peptide 6503.5 H COVID-19 ([facility]) 12/26/19 12/26/19 12/27/19 14:20 20:50 08:10 WBC 7.2 Hgb 10.0 L Plt Count 222 INR Sodium Potassium BUN Creatinine Random Glucose Troponin I 0.02 B-Natriuretic Peptide COVID-19 ([facility]) Not detected 12/27/19 01/04/20 01/04/20 08:10 06:22 06:22 WBC 5.9 Hgb 10.9 Plt Count 265 INR Sodium 136 135 L Potassium 4.2 5.0 BUN 60.7 H Creatinine 0.9 1.5 H Random Glucose 201 H Troponin I B-Natriuretic Peptide COVID-19 ([facility]) - ....Imaging EKG: Image Reviewed (TELE: NSR) Assessment/Plan IMP: Epidural abscess, wound infection Acute on chronic systolic CHF, with what appears to be new LV dysfx from 2018 Moderate MR Prolonged QT PAF HTN 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 diabetic (uncontrolled glycemic status, does not f/u with PMD despite repeatedly advised to do so) -EF now moderately reduced (35-40%, global), last echo here 2018 was 50-55%. -has not had significant burden of AF, doubt tachy-CMP - in sinus on tele here -improved with IV lasix, now on po, cont torsemide; follow renal rxn closely -Cont Coreg -low dose DORENE held during recent admit due to mild hyperkalemia and soft BPs (was on lisinopril 5 qd then). given current EF, pt has mortality benefit from Entresto. K normal, BP currently mostly > 110. - cont 24-26 BID dose here Prolonged QTC: -F/u ECGs -Keep K+ and Mg2+ normalized -Avoid / minimize QT prolonging meds VTach: -NSVT on tele -cont bb -HF optimization (diuresis) as doing -replete K/Mg to 4/2 PAF: -Cont Coreg and Xarelto -Holter to assess rate control DVT/PE with history of filter: -cont with AC NICHOLE: -not treated, pt has not followed up for cpap therapy cardiac hallman remains stable
[2020-01-04] MEDS ORDERED: cefTRIAXone SODIUM 1 GM VIAL ONE (10:19)
[2020-01-04] MEDS ORDERED: DEXTROSE 5%-WATER - 50 ML IVPB ONE (10:19)
[2020-01-04] MEDS ORDERED: PT OWN MED DRAWER 7, Y5N ONE ×4 (10:20→20:57)
[2020-01-04] MEDS: GABAPENTIN 300 MG CAPSULE PO SCH (10:30)
[2020-01-04] MEDS: LEFLUNOMIDE 10 MG TABLET PO SCH (10:30)
[2020-01-04] MEDS: CEFTRIAXONE 1 GM in DEXTROSE 5%-WATER - 50 ML IVPB SCH (10:30)
[2020-01-04] MEDS: SACUBITRIL/VALSARTAN 24 MG-26 MG TABLET PO SCH ×3 (10:31→21:05)
[2020-01-04] MEDS: DOCUSATE SODIUM 100 MG CAPSULE (FP) PO SCH (10:31)
[2020-01-04] MEDS: diazePAM 5 MG TABLET PO SCH (10:31)
[2020-01-04] MEDS: PRAMIPEXOLE DIHYDROCHLORIDE 0.25 MG TABLET PO SCH ×2 (10:31→21:52)
[2020-01-04] MEDS: CARVEDILOL 12.5 MG TABLET (FP) PO SCH ×2 (10:31→21:08)
[2020-01-04] MEDS: FERROUS SO4 325 MG TABLET (FP) PO SCH ×2 (10:31→17:16)
[2020-01-04] MEDS: TORSEMIDE 100 MG TABLET PO SCH (10:31)
--- NOTE | 2020-01-04 13:52 | PN ---
Progress Note, Physician History of Present Illness: stable plan for drainage of the epidural fluid - Current Medication List Current Medications: Active Medications Acetaminophen (Tylenol -) 650 mg PO Q6H PRN PRN Reason: PAIN LEVEL 1-5 OR FEVER Last Admin: 01/03/20 06:13 Dose: 650 mg Documented by: Baclofen (Lioresal -) 10 mg PO Q8H PRN PRN Reason: MUSCLE SPASM Last Admin: 01/03/20 21:18 Dose: 10 mg Documented by: Carvedilol (Coreg -) 12.5 mg PO BID [facility] Last Admin: 01/04/20 10:31 Dose: 12.5 mg Documented by: Diazepam (Valium -) 10 mg PO DAILY [facility] Last Admin: 01/04/20 10:31 Dose: 10 mg Documented by: Docusate Sodium (Colace -) 100 mg PO DAILY [facility] Last Admin: 01/04/20 10:31 Dose: 100 mg Documented by: Ferrous Sulfate (Feosol -) 325 mg PO BIDWM [facility] Last Admin: 01/04/20 10:31 Dose: 325 mg Documented by: Gabapentin (Neurontin -) 600 mg PO DAILY [facility] Last Admin: 01/04/20 10:30 Dose: 600 mg Documented by: Ceftriaxone Sodium 1 gm/ (Dextrose) 50 mls @ 100 mls/hr IVPB DAILY [facility]; Protocol Last Admin: 01/04/20 10:30 Dose: 100 mls/hr Documented by: Insulin Aspart (Novolog Vial Sliding Scale -) 1 vial SQ ACHS [facility]; Protocol Last Admin: 01/04/20 13:23 Dose: 2 units Documented by: Leflunomide (Arava -) 20 mg PO DAILY [facility] Last Admin: 01/04/20 10:30 Dose: 20 mg Documented by: Multi-Ingredient Lotion (Eucerin (Small Jar) -) 1 applic TP Q24H PRN PRN Reason: DRY SKIN Oxycodone HCl (Roxicodone -) 10 mg PO Q6H PRN PRN Reason: PAIN LEVEL 6-10 Last Admin: 01/04/20 06:22 Dose: 10 mg Documented by: Pramipexole Dihydrochloride (Mirapex -) 0.25 mg PO BID [facility] Last Admin: 01/04/20 10:31 Dose: 0.25 mg Documented by: Rivaroxaban (Xarelto) 20 mg PO DAILY@1800 [facility] Last Admin: 01/02/20 22:05 Dose: 20 mg Documented by: Sacubitril/Valsartan (Entresto 24 Mg-26 Mg Tablet) 1 tab PO BID [facility] Last Admin: 01/04/20 13:06 Dose: Not Given Documented by: Torsemide (Demadex -) 50 mg PO DAILY [facility] Last Admin: 01/04/20 10:31 Dose: 50 mg Documented by: Zolpidem Tartrate (Ambien -) 5 mg PO HS PRN PRN Reason: INSOMNIA Last Admin: 01/03/20 22:27 Dose: 5 mg Documented by: - Objective Vital Signs: Vital Signs Temperature 98.1 F 01/04/20 10:00 Pulse Rate 71 01/04/20 10:00 Respiratory Rate 16 01/04/20 10:00 Blood Pressure 91/73 01/04/20 10:00 O2 Sat by Pulse Oximetry (%) 93 L 01/04/20 09:00 Constitutional: Yes: No Distress, Calm Cardiovascular: Yes: S1, S2 Respiratory: Yes: Regular, CTA Bilaterally Gastrointestinal: Yes: Normal Bowel Sounds, Soft Musculoskeletal: Yes: WNL Extremities: Yes: Other Wound/Incision: Yes: Other (wound vac in place) Neurological: Yes: Alert, Oriented Psychiatric: Yes: Alert, Oriented Labs: CBC, BMP 01/04/20 06:22 01/04/20 06:22 INR, PTT INR 1.34 (0.83-1.09) H 12/26/19 14:20 Assessment/Plan 74 year old lady with history of CHF, RA, DM 2, HTN, Hx DVT/PE, a fib (on Xarelto), multiple spine surgeries, s/p L4/5 laminectomy then L5/S1 seroma with recent epidural abscess drainage s/p I and D - sent home on IV Rocephin via PICC 12/03 now returns with SOB , she was found to have acute CHF exa 1- Acute on chronic systolic CHF. euvolemic now. 2- H/o Epidural abscess s/p I&D. wound vac 3- Paroxysmal Atrial Fibrillation 4- Hx PE/DVT s/p IVC filter 5. DM 2: cont SSI. 6. RA 7- Normocytic Anemia - 8. NICHOLE patient has foot drop for drainage of epidural abscess cx the fluid rest as per the team
--- NOTE | 2020-01-04 15:06 | PN ---
Physical Exam: SUBJECTIVE: Patient seen and examined. Pt reports minimal back pain with movement. She denies shortness of breath, chest pain, abdominal pain, nausea, vomiting. OBJECTIVE: Vital Signs Period Temp Pulse Resp BP Sys/Marcelo Pulse Ox Last 24 Hr 97.0 F-98.2 F 71-83 16-20 91-111/46-73 93-96 GENERAL: The patient is awake, alert, and fully oriented, in no acute distress. HEAD: Normal with no signs of trauma. EYES: PERRL, extraocular movements intact, conjunctiva clear. ENT: Ears normal, nares patent, moist mucous membranes. NECK: Trachea midline, full range of motion. LUNGS: Clear to auscultation bilaterally, no wheezes. HEART: Regular rate and rhythm, no murmur ABDOMEN: Soft, nontender, nondistended, normoactive bowel sounds EXTREMITIES: Warm, well-perfused, no edema. NEUROLOGICAL: Cranial nerves II through XII grossly intact. Normal speech, gait not observed. PSYCH: Normal mood, normal affect. SKIN: Warm, dry, normal turgor, lumbar abscess dressed with no significant drainage Laboratory Results - last 24 hr 01/03/20 01/03/20 01/04/20 16:25 21:16 05:47 WBC RBC Hgb Hct MCV MCH MCHC RDW Plt Count MPV Sodium Potassium Chloride Carbon Dioxide Anion Gap BUN Creatinine Est GFR (CKD-EPI)AfAm Est GFR (CKD-EPI)NonAf POC Glucometer 191 285 173 Random Glucose Calcium Phosphorus Magnesium Total Bilirubin AST ALT Alkaline Phosphatase Total Protein Albumin 01/04/20 01/04/20 01/04/20 06:22 06:22 12:30 WBC 5.9 RBC 3.99 Hgb 10.9 Hct 33.8 MCV 84.8 MCH 27.3 MCHC 32.2 RDW 21.2 H Plt Count 265 MPV 7.8 Sodium 135 L Potassium 5.0 Chloride 100 Carbon Dioxide 26 Anion Gap 9 BUN 60.7 H Creatinine 1.5 H Est GFR (CKD-EPI)AfAm 39.64 Est GFR (CKD-EPI)NonAf 34.21 POC Glucometer 187 Random Glucose 201 H Calcium 8.8 Phosphorus 4.5 Magnesium 2.8 H Total Bilirubin 0.9 AST 21 ALT < 6 L Alkaline Phosphatase 137 H Total Protein 6.8 Albumin 2.9 L Active Medications Generic Name Dose Route Start Last Admin Trade Name Freq PRN Reason Stop Dose Admin Acetaminophen 650 mg 12/29/19 20:32 01/03/20 06:13 Tylenol - PO 650 mg Q6H PRN Administration PAIN LEVEL 1-5 OR FEVER Baclofen 10 mg 12/29/19 20:32 01/03/20 21:18 Lioresal - PO 10 mg Q8H PRN Administration MUSCLE SPASM Carvedilol 12.5 mg 12/29/19 22:00 01/04/20 10:31 Coreg - PO 12.5 mg BID L[facility] Administration Diazepam 10 mg 12/30/19 12:30 01/04/20 10:31 Valium - PO 10 mg DAILY [facility] Administration Docusate Sodium 100 mg 01/03/20 15:15 01/04/20 10:31 Colace - PO 100 mg DAILY [facility] Administration Ferrous Sulfate 325 mg 12/30/19 08:00 01/04/20 10:31 Feosol - PO 325 mg BIDWM L[facility] Administration Gabapentin 600 mg 12/30/19 10:00 01/04/20 10:30 Neurontin - PO 600 mg DAILY [facility] Administration Ceftriaxone Sodium 1 gm/ 50 mls @ 100 mls/hr 01/01/20 17:45 01/04/20 10:30 Dextrose IVPB 100 mls/hr DAILY [facility] Administration Protocol Insulin Aspart 1 vial 12/29/19 22:00 01/04/20 13:23 Novolog Vial Sliding Scale - SQ 2 units ACHS [facility] Administration Protocol Leflunomide 20 mg 12/30/19 10:00 01/04/20 10:30 Arava - PO 20 mg DAILY [facility] Administration Multi-Ingredient Lotion 1 applic 12/29/19 20:32 Eucerin (Small Jar) - TP Q24H PRN DRY SKIN Oxycodone HCl 10 mg 01/01/20 23:22 01/04/20 06:22 Roxicodone - PO 10 mg Q6H PRN Administration PAIN LEVEL 6-10 Pramipexole Dihydrochloride 0.25 mg 12/29/19 22:00 01/04/20 10:31 Mirapex - PO 0.25 mg BID [facility] Administration Rivaroxaban 20 mg 12/30/19 18:00 01/02/20 22:05 Xarelto PO 20 mg DAILY@1800 [facility] Administration Sacubitril/Valsartan 1 tab 12/29/19 10:00 01/04/20 13:06 Entresto 24 Mg-26 Mg Tablet PO Not Given BID [facility] Torsemide 50 mg 01/02/20 10:00 01/04/20 10:31 Demadex - PO 50 mg DAILY [facility] Administration Zolpidem Tartrate 5 mg 01/01/20 23:22 01/03/20 22:27 Ambien - PO 5 mg HS PRN Administration INSOMNIA ASSESSMENT/PLAN: Pt is a 74 y/o female with HFrEF (35-40%), RA, DM 2, HTN, Hx DVT/PE, a fib (on Xarelto), non-ischemic cardiomyopathy, multiple spine surgeries, s/p L4/5 laminectomy then L5/S1 seroma with recent epidural abscess drainage s/p I and D, complex wound closure and wound vac placement 11/25-sent home on IV Rocephin via PICC 12/03 who returned w/ shortness of breath for 3 days admitted for CHF exacerbation #acute on chronic systolic CHF exacerbation -COVID negative -torsemide 50mg daily -carevdilol 12.5mg BID -entresto BID -daily weights -avoid QTC prolonging agents -DORENE held with labile BP's and hyperkalemia #Epidural abscess -s/p I&D on 12/03 -patient to have a drainage tomorrow with IR as per Dr. Borjas -new foot drop repeat lumbar MRI : impingment of L4, herniation that would effect L4-L5, epidural abscess decreased in size -decrease in size of previously visualized large posterior lumbar spine collection -drain placement today -followed by Dr. Krueger -oxycodone for pain, gabapentin for neuropathy #paroxysmal afib -continue carvedilol -xarelto DVT ppx Xarelto FEN PO fluids monitor labs diabetic/sodium diet dispo med/surg Visit type - Emergency Visit Emergency Visit: Yes ED Registration Date: 12/26/19 Care time: The patient presented to the Emergency Department on the above date and was hospitalized for further evaluation of their emergent condition. - New Patient This patient is new to me today: Yes Date on this admission: 01/04/20 - Critical Care Critical Care patient: No ATTENDING PHYSICIAN STATEMENT I saw and evaluated the patient. I reviewed the resident's note and discussed the case with the resident. I agree with the resident's findings and plan as documented. SUBJECTIVE: OBJECTIVE: ASSESSMENT AND PLAN:
[2020-01-04] MEDS ORDERED: MINERAL OIL/PETROLAT/WATER TOPICAL CREAM 113 GM JAR TP PRN (15:55)
[2020-01-04] MEDS: RIVAROXABAN 20 MG TABLET PO SCH (17:18)
--- NOTE | 2020-01-04 19:17 | PN ---
Teaching Attending Note Name of Resident: Amanda Wellington ATTENDING PHYSICIAN STATEMENT I saw and evaluated the patient. I reviewed the resident's note and discussed the case with the resident. I agree with the resident's findings and plan as documented. SUBJECTIVE: No fever or chills. pain in R hip . No OSB , no CP OBJECTIVE: NAD, awake, cooperative CV: RRR. No JVD. Lungs: CTAB Ext: No edema on upper or lower extremities. MS: lower back wound vac with no surrounding erythema or discharge noted Neuro or LE: L: hip flexion 4/5 limited by hip pain. knee felxion /extenstion 5/5 , ankle dorsiflexion/plantar flexion 5/5 R: hip flexion 3/5. knee felxion /extenstion 5/5 , ankle dorsiflexion 0, ankle plantar flexion 5/5 decreased sensation to light touch on R leg from knee down. A/P: 74 year old lady with history of CHF, RA, DM 2, HTN, Hx DVT/PE, a fib (on Xarelto), multiple spine surgeries, s/p L4/5 laminectomy then L5/S1 seroma with recent epidural abscess drainage s/p I and D - sent home on IV Rocephin via PICC 12/03 now returns with SOB , she was found to have acute CHF exa 1- Acute on chronic systolic CHF. euvolemic now. - cont po torsemide - cont entresto 2- H/o Epidural abscess s/p I&D. wound vac was applied this admission. removed today. drainage and placement of pig tail today ( drainage of the subQ collection in lumbar area ) - mass effect form collection and herniated disc explain the R foot drop and RLE weakness - cont abx . - will resume Ceftriaxone at dc - duration per Dr. Krueger. was supposed to finish 6 weeks of Abx 3- Paroxysmal Atrial Fibrillation - continue Coreg and Xarelto 4- Hx PE/DVT s/p IVC filter - resume xarelto after procedure 5. DM 2: cont SSI. 6.H/o RA : on Leflunomide. 7- Normocytic Anemia - possible iron def with B12 def . MMA pending . cont iron further w/u as out pt 8. NICHOLE - needs out-patient follow up for CPAP machine DVT Px - on Xarelto. HLOC
[2020-01-04] MEDS: ZOLPIDEM TARTRATE 5 MG TABLET PO PRN (21:08)
[2020-01-05] MEDS: oxyCODONE HCL 5 MG TABLET PO PRN ×3 (00:17→16:15)
[2020-01-05] MEDS: INSULIN SLIDING SCALE (NOVOLOG) 1 VIAL SQ SCH ×4 (06:00→21:05)
[2020-01-05] MEDS: BACLOFEN 10 MG TABLET (FP) PO PRN ×2 (07:41→21:04)
[2020-01-05 07:44] LABS: ALBUMIN 3.2 g/dl (3.4-5.0); BLOOD UREA NITROGEN 55.7 mg/dL (7-18); CALCIUM 9.1 mg/dL (8.5-10.1); MAGNESIUM 2.8 mg/dL (1.8-2.4); POTASSIUM 4.5 mmol/L (3.5-5.1)
[2020-01-05 07:48] LABS: CREATININE 1.2 mg/dL (0.55-1.3); PHOSPHOROUS 4.2 mg/dL (2.5-4.9); TOT PROT 7.3 g/dl (6.4-8.2)
[2020-01-05] MEDS ORDERED: cefTRIAXone SODIUM 1 GM VIAL ONE (09:11)
[2020-01-05] MEDS ORDERED: DEXTROSE 5%-WATER - 50 ML IVPB ONE (09:11)
[2020-01-05] MEDS: diazePAM 5 MG TABLET PO SCH (09:16)
[2020-01-05] MEDS: GABAPENTIN 300 MG CAPSULE PO SCH (09:16)
[2020-01-05] MEDS: DOCUSATE SODIUM 100 MG CAPSULE (FP) PO SCH (09:16)
[2020-01-05] MEDS: CARVEDILOL 12.5 MG TABLET (FP) PO SCH ×2 (09:16→21:05)
[2020-01-05] MEDS: FERROUS SO4 325 MG TABLET (FP) PO SCH ×2 (09:16→17:22)
[2020-01-05] MEDS: LEFLUNOMIDE 10 MG TABLET PO SCH (09:17)
[2020-01-05] MEDS: SACUBITRIL/VALSARTAN 24 MG-26 MG TABLET PO SCH ×2 (09:17→21:04)
[2020-01-05] MEDS ORDERED: PT OWN MED DRAWER 7, Y5N ONE ×5 (09:20→20:57)
[2020-01-05] MEDS: PRAMIPEXOLE DIHYDROCHLORIDE 0.25 MG TABLET PO SCH ×2 (09:22→21:05)
[2020-01-05] MEDS: CEFTRIAXONE 1 GM in DEXTROSE 5%-WATER - 50 ML IVPB SCH (09:22)
[2020-01-05] MEDS: TORSEMIDE 100 MG TABLET PO SCH (09:54)
--- NOTE | 2020-01-05 11:15 | PN ---
Progress Note, Physician History of Present Illness: stable s/p drainage of epidural fluid cx results pending feels better - Current Medication List Current Medications: Active Medications Acetaminophen (Tylenol -) 650 mg PO Q6H PRN PRN Reason: PAIN LEVEL 1-5 OR FEVER Baclofen (Lioresal -) 10 mg PO Q8H PRN PRN Reason: MUSCLE SPASM Last Admin: 01/05/20 07:41 Dose: 10 mg Documented by: Carvedilol (Coreg -) 12.5 mg PO BID [facility] Last Admin: 01/05/20 09:16 Dose: 12.5 mg Documented by: Diazepam (Valium -) 10 mg PO DAILY [facility] Last Admin: 01/05/20 09:16 Dose: 10 mg Documented by: Docusate Sodium (Colace -) 100 mg PO DAILY [facility] Last Admin: 01/05/20 09:16 Dose: 100 mg Documented by: Ferrous Sulfate (Feosol -) 325 mg PO BIDWM [facility] Last Admin: 01/05/20 09:16 Dose: 325 mg Documented by: Gabapentin (Neurontin -) 600 mg PO DAILY [facility] Last Admin: 01/05/20 09:16 Dose: 600 mg Documented by: Ceftriaxone Sodium 1 gm/ (Dextrose) 50 mls @ 100 mls/hr IVPB DAILY [facility]; Protocol Last Admin: 01/05/20 09:22 Dose: 100 mls/hr Documented by: Insulin Aspart (Novolog Vial Sliding Scale -) 1 vial SQ ACHS [facility]; Protocol Last Admin: 01/05/20 06:00 Dose: Not Given Documented by: Leflunomide (Arava -) 20 mg PO DAILY [facility] Last Admin: 01/05/20 09:17 Dose: 20 mg Documented by: Multi-Ingredient Lotion (Eucerin (Small Jar) -) 1 applic TP Q24H PRN PRN Reason: DRY SKIN Oxycodone HCl (Roxicodone -) 10 mg PO Q6H PRN PRN Reason: PAIN LEVEL 6-10 Last Admin: 01/05/20 09:53 Dose: 10 mg Documented by: Pramipexole Dihydrochloride (Mirapex -) 0.25 mg PO BID [facility] Last Admin: 01/05/20 09:22 Dose: 0.25 mg Documented by: Rivaroxaban (Xarelto) 20 mg PO DAILY@1800 [facility] Last Admin: 01/04/20 17:18 Dose: 20 mg Documented by: Sacubitril/Valsartan (Entresto 24 Mg-26 Mg Tablet) 1 tab PO BID [facility] Last Admin: 01/05/20 09:17 Dose: 1 tab Documented by: Torsemide (Demadex -) 50 mg PO DAILY [facility] Last Admin: 01/05/20 09:54 Dose: 50 mg Documented by: Zolpidem Tartrate (Ambien -) 5 mg PO HS PRN PRN Reason: INSOMNIA Last Admin: 01/04/20 21:08 Dose: 5 mg Documented by: - Objective Vital Signs: Vital Signs Temperature 97.3 F L 01/04/20 19:18 Pulse Rate 72 01/04/20 19:18 Respiratory Rate 20 01/05/20 09:00 Blood Pressure 125/64 01/04/20 19:18 O2 Sat by Pulse Oximetry (%) 98 01/05/20 09:00 Constitutional: Yes: No Distress, Calm Cardiovascular: Yes: S1, S2 Respiratory: Yes: Regular, CTA Bilaterally Gastrointestinal: Yes: Normal Bowel Sounds, Soft Musculoskeletal: Yes: Back Pain, Other (drain in the back) Extremities: Yes: Other Neurological: Yes: Alert, Oriented Psychiatric: Yes: Alert, Oriented Labs: CBC, BMP 01/04/20 06:22 01/05/20 06:30 INR, PTT INR 1.34 (0.83-1.09) H 12/26/19 14:20 Assessment/Plan 74 year old lady with history of CHF, RA, DM 2, HTN, Hx DVT/PE, a fib (on Xarelto), multiple spine surgeries, s/p L4/5 laminectomy then L5/S1 seroma with recent epidural abscess drainage s/p I and D - sent home on IV Rocephin via PICC 12/03 now returns with SOB , she was found to have acute CHF exa 1- Acute on chronic systolic CHF. euvolemic now. 2- H/o Epidural abscess s/p I&D. wound vac 3- Paroxysmal Atrial Fibrillation 4- Hx PE/DVT s/p IVC filter 5. DM 2: cont SSI. 6. RA 7- Normocytic Anemia - 8. NICHOLE await for cx of epidural abscess will d/w the team monitor for any symptoms rest ct current mgmt abx
[2020-01-05] MEDS ORDERED: INSULIN (NOVOLOG) ASPART 100 UNITS/ML 10ML VIAL ONE (11:31)
[2020-01-05 12:07] LABS: METHYLMALONIC ACID- 713 nmol/L (0-378)
--- NOTE | 2020-01-05 14:27 | PN ---
Progress Note (short form) - Note Progress Note: cc: back pain HPI: no chest pain, palps, dizziness, dyspnea Current Medications Generic Name Dose Route Start Last Admin Trade Name Freq PRN Reason Stop Dose Admin Acetaminophen 650 mg 01/04/20 15:55 Tylenol - PO Q6H PRN PAIN LEVEL 1-5 OR FEVER Baclofen 10 mg 01/04/20 15:55 01/05/20 07:41 Lioresal - PO 10 mg Q8H PRN Administration MUSCLE SPASM Carvedilol 12.5 mg 01/04/20 22:00 01/05/20 09:16 Coreg - PO 12.5 mg BID LISA Administration Diazepam 10 mg 01/05/20 10:00 01/05/20 09:16 Valium - PO 10 mg DAILY [facility] Administration Docusate Sodium 100 mg 01/03/20 15:15 01/05/20 09:16 Colace - PO 100 mg DAILY [facility] Administration Ferrous Sulfate 325 mg 01/04/20 17:30 01/05/20 09:16 Feosol - PO 325 mg BIDWM [facility] Administration Gabapentin 600 mg 01/05/20 10:00 01/05/20 09:16 Neurontin - PO 600 mg DAILY [facility] Administration Ceftriaxone Sodium 1 gm/ 50 mls @ 100 mls/hr 01/05/20 10:00 01/05/20 09:22 Dextrose IVPB 100 mls/hr DAILY [facility] Administration Protocol Insulin Aspart 1 vial 01/04/20 16:30 01/05/20 11:32 Novolog Vial Sliding Scale - SQ 8 unit ACHS [facility] Administration Protocol Leflunomide 20 mg 01/05/20 10:00 01/05/20 09:17 Arava - PO 20 mg DAILY [facility] Administration Multi-Ingredient Lotion 1 applic 01/04/20 15:55 Eucerin (Small Jar) - TP Q24H PRN DRY SKIN Oxycodone HCl 10 mg 01/04/20 15:55 01/05/20 09:53 Roxicodone - PO 10 mg Q6H PRN Administration PAIN LEVEL 6-10 Pramipexole Dihydrochloride 0.25 mg 01/04/20 22:00 01/05/20 09:22 Mirapex - PO 0.25 mg BID [facility] Administration Rivaroxaban 20 mg 01/04/20 18:00 01/04/20 17:18 Xarelto PO 20 mg DAILY@1800 [facility] Administration Sacubitril/Valsartan 1 tab 01/04/20 22:00 01/05/20 09:17 Entresto 24 Mg-26 Mg Tablet PO 1 tab BID [facility] Administration Torsemide 50 mg 01/05/20 10:00 01/05/20 09:54 Demadex - PO 50 mg DAILY [facility] Administration Zolpidem Tartrate 5 mg 01/04/20 15:55 01/04/20 21:08 Ambien - PO 5 mg HS PRN Administration INSOMNIA Vital Signs Period Temp Pulse Resp BP Sys/Marcelo Pulse Ox Last 24 Hr 97.1 F-97.6 F 65-73 16-20 108-132/64-75 94-98 Constitutional: Yes: No Distress, Calm Cardiovascular: Yes: Regular Rate and Rhythm Respiratory: Yes: CTA Bilaterally (no rales or wheezing) Gastrointestinal: Yes: Soft (nt), Abdomen, Obese Edema: Yes Edema: LLE: Trace, RLE: Trace Neurological: Yes: Alert, Oriented no jaundice, diaphoresis not agitated Assessment/Plan IMP: Epidural abscess, wound infection Acute on chronic systolic CHF, with what appears to be new LV dysfx from 2018 Moderate MR Prolonged QT PAF HTN 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 diabetic (uncontrolled glycemic status, does not f/u with PMD despite repeatedly advised to do so) -EF now moderately reduced (35-40%, global), last echo here 2018 was 50-55%. -has not had significant burden of AF, doubt tachy-CMP - in sinus on tele here -improved with IV lasix, now on po, cont torsemide; follow renal rxn closely -Cont Coreg -low dose DORENE held during recent admit due to mild hyperkalemia and soft BPs (was on lisinopril 5 qd then). given current EF, pt has mortality benefit from Entresto. K normal, BP currently mostly > 110. - cont 24-26 BID dose here Prolonged QTC: -F/u ECGs -Keep K+ and Mg2+ normalized -Avoid / minimize QT prolonging meds VTach: -NSVT on tele -cont bb -HF optimization (diuresis) as doing -replete K/Mg to 4/2 PAF: -Cont Coreg and Xarelto -Holter to assess rate control DVT/PE with history of filter: -cont with AC NICHOLE: -not treated, pt has not followed up for cpap therapy cardiac hallman remains stable
--- NOTE | 2020-01-05 15:11 | PN ---
Teaching Attending Note Name of Resident: Kathy Osman ATTENDING PHYSICIAN STATEMENT I saw and evaluated the patient. I reviewed the resident's note and discussed the case with the resident. I agree with the resident's findings and plan as documented. SUBJECTIVE: Seen and examined at bedside. No complaints. OBJECTIVE: Last Vital Signs Temp Pulse Resp BP Pulse Ox 97.6 F 73 18 108/72 98 01/05/20 10:01/05/20 10:01/05/20 10:01/05/20 10:01/05/20 09:00 PE: per resident note Labs/Imaging: reviewed A/P: 74 year old lady with history of CHF, RA, DM 2, HTN, Hx DVT/PE, a fib (on Xarelto), multiple spine surgeries, s/p L4/5 laminectomy then L5/S1 seroma with recent epidural abscess drainage s/p I and D - sent home on IV Rocephin via PICC 12/03 now returns with SOB , she was found to have acute CHF exa # Acute on chronic systolic CHF: now euvolemic - cont po torsemide - cont entresto #H/o Epidural abscess s/p I&D. -s/p wound vac -now with pig tail in place (01/03) draining serosanguinous fluid - mass effect form collection and herniated disc explain the R foot drop and RLE weakness - cont abx . - will resume Ceftriaxone at dc - duration per Dr. Krueger. was supposed to finish 6 weeks of Abx # Paroxysmal Atrial Fibrillation - continue Coreg and Xarelto # Hx PE/DVT s/p IVC filter - resume xarelto after procedure # DM 2: cont SSI. # H/o RA : on Leflunomide. # Normocytic Anemia - possible iron def with B12 def . MMA pending . cont iron further w/u as out pt # NICHOLE - needs out-patient follow up for CPAP machine DVT Px - on Xarelto.
--- NOTE | 2020-01-05 16:45 | PN ---
Physical Exam: SUBJECTIVE: Patient seen and examined IRINEO States that her RLE foot drop is not new for this admission but thinks it worsened during the last few weeks. Denies fever, chills. No loss of sensation of BLE, incontinence OBJECTIVE: Vital Signs Period Temp Pulse Resp BP Sys/Marcelo Pulse Ox Last 24 Hr 97.1 F-97.9 F 65-84 18-20 102-132/54-75 98-98 GENERAL: The patient is awake, alert, and fully oriented, in no acute distress. EYES: No ptosis. ENT: oropharynx clear without exudates, moist mucous membranes. LUNGS: Breath sounds equal, clear to auscultation bilaterally, no wheezes, no crackles HEART: Regular rate and rhythm, S1, S2 without murmur, rub or gallop. ABDOMEN: Soft, nontender, nondistended, normoactive bowel sounds, no guarding EXTREMITIES: 2+ pulses, warm, well-perfused, nonpitting edema. RLE with old surgical knee incision. Decreased AROM of R knee and limited dorsiflexion. Footdrop shoe on R foot. Back: DASH drain in place with serous fluid in bulb SKIN: Warm, dry, normal turgor, no rashes or lesions noted Laboratory Results - last 24 hr 01/02/20 01/04/20 01/05/20 05:35 20:50 05:59 Sodium Potassium Chloride Carbon Dioxide Anion Gap BUN Creatinine Est GFR (CKD-EPI)AfAm Est GFR (CKD-EPI)NonAf POC Glucometer 227 144 Random Glucose Calcium Phosphorus Magnesium Total Bilirubin AST ALT Alkaline Phosphatase Total Protein Albumin Methylmalonic Acid 713 H 01/05/20 01/05/20 06:30 11:28 Sodium 137 Potassium 4.5 Chloride 99 Carbon Dioxide 30 Anion Gap 9 BUN 55.7 H Creatinine 1.2 Est GFR (CKD-EPI)AfAm 51.92 Est GFR (CKD-EPI)NonAf 44.80 POC Glucometer 322 Random Glucose 168 H Calcium 9.1 Phosphorus 4.2 Magnesium 2.8 H Total Bilirubin 1.0 AST 18 ALT 7 L Alkaline Phosphatase 144 H Total Protein 7.3 Albumin 3.2 L Methylmalonic Acid Active Medications Generic Name Dose Route Start Last Admin Trade Name Freq PRN Reason Stop Dose Admin Acetaminophen 650 mg 01/04/20 15:55 Tylenol - PO Q6H PRN PAIN LEVEL 1-5 OR FEVER Baclofen 10 mg 01/04/20 15:55 01/05/20 07:41 Lioresal - PO 10 mg Q8H PRN Administration MUSCLE SPASM Carvedilol 12.5 mg 01/04/20 22:00 01/05/20 09:16 Coreg - PO 12.5 mg BID LISA Administration Diazepam 10 mg 01/05/20 10:00 01/05/20 09:16 Valium - PO 10 mg DAILY LISA Administration Docusate Sodium 100 mg 01/03/20 15:15 01/05/20 09:16 Colace - PO 100 mg DAILY LISA Administration Ferrous Sulfate 325 mg 01/04/20 17:30 01/05/20 09:16 Feosol - PO 325 mg BIDWM LISA Administration Gabapentin 600 mg 01/05/20 10:00 01/05/20 09:16 Neurontin - PO 600 mg DAILY LISA Administration Ceftriaxone Sodium 1 gm/ 50 mls @ 100 mls/hr 01/05/20 10:00 01/05/20 09:22 Dextrose IVPB 100 mls/hr DAILY LISA Administration Protocol Insulin Aspart 1 vial 01/04/20 16:30 01/05/20 11:32 Novolog Vial Sliding Scale - SQ 8 unit ACHS LISA Administration Protocol Leflunomide 20 mg 01/05/20 10:00 01/05/20 09:17 Arava - PO 20 mg DAILY LISA Administration Multi-Ingredient Lotion 1 applic 01/04/20 15:55 Eucerin (Small Jar) - TP Q24H PRN DRY SKIN Oxycodone HCl 10 mg 01/04/20 15:55 01/05/20 16:15 Roxicodone - PO 10 mg Q6H PRN Administration PAIN LEVEL 6-10 Pramipexole Dihydrochloride 0.25 mg 01/04/20 22:00 01/05/20 09:22 Mirapex - PO 0.25 mg BID LISA Administration Rivaroxaban 20 mg 01/04/20 18:00 01/04/20 17:18 Xarelto PO 20 mg DAILY@1800 LISA Administration Sacubitril/Valsartan 1 tab 01/04/20 22:00 01/05/20 09:17 Entresto 24 Mg-26 Mg Tablet PO 1 tab BID LISA Administration Torsemide 50 mg 01/05/20 10:00 01/05/20 09:54 Demadex - PO 50 mg DAILY LISA Administration Zolpidem Tartrate 5 mg 01/04/20 15:55 01/04/20 21:08 Ambien - PO 5 mg HS PRN Administration INSOMNIA ASSESSMENT/PLAN: 74 y/o F, pmh of d-CHF, RA, DM 2, HTN, Hx DVT/PE, a fib (on Xarelto), multiple spine surgeries, s/p L4/5 laminectomy then L5/S1 seroma with recent epidural abscess drainage s/p I and D, complex wound closure and wound vac placement 11/25-sent home on IV Rocephin via PICC 12/03 returned w/ shortness of breath for 3 days admitted for CHF exacerbation. Acheived euvolemia w/ aggressive IV diuresis. Repeat L-spine imaging for concern of undocumented Right foot drop. Fluid collection w/a spinal stenosis. Shein recommended IR drainage. L-spine epidural drain placement(Posibabrael, 01/03) with serous output. #Acute Sys-CHF exacerbation No hypoxia, COVID negative euvolemia acheived cont home diruesis reigmen toresmide 50mg QD > Echo -EF 35-40%, moderate LV hypokinesis, LA severely dilated, declined from previous Echo in 2018- w/ EF 55% Cardiology consult([facility]) --EF has fluctuated 35-55% over the years, possible d/t NICHOLE vs DM --started Entresto inpatient --moderate MR, may have progressed d/t LV dysfx --prolonged QTc, fu EKGs --PAF, cw coreg and xarelot. Outpt Holter #Epidural Abscess s/p L-spine epidural abscess(Raeannin, 11/23/19) w/ subsequent delayed primary closure(Raeannin, 11/27/19) s/p IR L-spine DASH drain(Gebrael, 01/03) > BCX(12/26/19): 1 of 2 bottles w/ staph coag neg > BCX(12/28/19): NGTD - ID consult(Pati): --complete ceftriaxone x4wk(12/04/19 + weeks) --PICC/midline then outpatient ceftriaxone Oxy 10 Q6 PRN #Paroxysmal Atrial Fibrillation Coreg Xarelto #Hx PE/DVT Xarelto #DM uncontrolled HbA1c(11/24/19) 9.1 BGM ISS #RA Leflunomide #Normocytic Anemia 2/2 to anemia of chronic disease Iron/Ferritin/B12/Folate levels- consistent with above ferrous sulfate started methylmalonic acid is high --started B12 #DVT Ppx on Xarelto FEN monitor lytes cont oxygen NRB Diabetic diet Dispo: needs PICC prior to discharge home Visit type - Emergency Visit Emergency Visit: No - New Patient This patient is new to me today: No - Critical Care Critical Care patient: No ATTENDING PHYSICIAN STATEMENT I saw and evaluated the patient. I reviewed the resident's note and discussed the case with the resident. I agree with the resident's findings and plan as documented. SUBJECTIVE: OBJECTIVE: ASSESSMENT AND PLAN:
[2020-01-05] MEDS: RIVAROXABAN 20 MG TABLET PO SCH (17:22)
[2020-01-05] MEDS: CYANOCOBALAMIN (VITAMIN B-12) 100 MCG TABLET PO SCH (17:50)
[2020-01-05] MEDS: ZOLPIDEM TARTRATE 5 MG TABLET PO PRN (21:05)
[2020-01-06] MEDS: oxyCODONE HCL 5 MG TABLET PO PRN ×2 (02:09→17:40)
[2020-01-06] MEDS: INSULIN SLIDING SCALE (NOVOLOG) 1 VIAL SQ SCH ×4 (06:38→22:02)
[2020-01-06 06:47] LABS: HEMATOCRIT 35.4 % (32.4-45.2); HEMOGLOBIN 11.3 GM/dL (10.7-15.3); MCH 27.4 pg (25.7-33.7); MCHC 31.9 g/dl (32.0-36.0); PLATELET COUNT 237 K/MM3 (134-434); RBC 4.12 M/mm3 (3.60-5.2); RDW 20.4 % (11.6-15.6); WHITE BLOOD COUNT 5.4 K/mm3 (4.0-10.0)
[2020-01-06 07:17] LABS: CALCIUM 8.7 mg/dL (8.5-10.1); POTASSIUM 5.1 mmol/L (3.5-5.1)
[2020-01-06 07:18] LABS: BLOOD UREA NITROGEN 67.7 mg/dL (7-18); CREATININE 1.8 mg/dL (0.55-1.3); MAGNESIUM 2.7 mg/dL (1.8-2.4); PHOSPHOROUS 5.3 mg/dL (2.5-4.9)
[2020-01-06] MEDS ORDERED: PT OWN MED DRAWER 7, Y5N ONE ×2 (09:37→21:13)
[2020-01-06] MEDS ORDERED: DEXTROSE 5%-WATER - 50 ML IVPB ONE (09:37)
[2020-01-06] MEDS ORDERED: cefTRIAXone SODIUM 1 GM VIAL ONE (09:37)
[2020-01-06] MEDS: CEFTRIAXONE 1 GM in DEXTROSE 5%-WATER - 50 ML IVPB SCH (09:47)
[2020-01-06] MEDS: CYANOCOBALAMIN (VITAMIN B-12) 100 MCG TABLET PO SCH (09:48)
[2020-01-06] MEDS: diazePAM 5 MG TABLET PO SCH (09:48)
[2020-01-06] MEDS: DOCUSATE SODIUM 100 MG CAPSULE (FP) PO SCH (09:48)
[2020-01-06] MEDS: FERROUS SO4 325 MG TABLET (FP) PO SCH ×2 (09:48→17:41)
[2020-01-06] MEDS: GABAPENTIN 300 MG CAPSULE PO SCH (09:48)
[2020-01-06] MEDS: LEFLUNOMIDE 10 MG TABLET PO SCH (09:49)
[2020-01-06] MEDS: PRAMIPEXOLE DIHYDROCHLORIDE 0.25 MG TABLET PO SCH ×2 (09:49→22:01)
[2020-01-06] MEDS: CARVEDILOL 12.5 MG TABLET (FP) PO SCH ×2 (09:49→22:01)
--- NOTE | 2020-01-06 11:17 | PN ---
Progress Note (short form) - Note Progress Note: Chief Complaint: leg swelling, sob History of Present Illness: no edema, chest pain, palps, sob, dizzy Current Medications Generic Name Dose Route Start Last Admin Trade Name Freq PRN Reason Stop Dose Admin Acetaminophen 650 mg 01/04/20 15:55 Tylenol - PO Q6H PRN PAIN LEVEL 1-5 OR FEVER Baclofen 10 mg 01/04/20 15:55 01/05/20 21:04 Lioresal - PO 10 mg Q8H PRN Administration MUSCLE SPASM Carvedilol 12.5 mg 01/04/20 22:00 01/06/20 09:49 Coreg - PO 12.5 mg BID LISA Administration Cyanocobalamin 100 mcg 01/05/20 16:45 01/06/20 09:48 Vitamin B12 - PO 100 mcg DAILY LISA Administration Diazepam 10 mg 01/05/20 10:00 01/06/20 09:48 Valium - PO 10 mg DAILY LISA Administration Docusate Sodium 100 mg 01/03/20 15:15 01/06/20 09:48 Colace - PO 100 mg DAILY LISA Administration Ferrous Sulfate 325 mg 01/04/20 17:30 01/06/20 09:48 Feosol - PO 325 mg BIDWM LISA Administration Gabapentin 600 mg 01/05/20 10:00 01/06/20 09:48 Neurontin - PO 600 mg DAILY LISA Administration Ceftriaxone Sodium 1 gm/ 50 mls @ 100 mls/hr 01/05/20 10:00 01/06/20 09:47 Dextrose IVPB 100 mls/hr DAILY LISA Administration Protocol Insulin Aspart 1 vial 01/04/20 16:30 01/06/20 06:38 Novolog Vial Sliding Scale - SQ 2 unit ACHS LISA Administration Protocol Leflunomide 20 mg 01/05/20 10:00 01/06/20 09:49 Arava - PO 20 mg DAILY LISA Administration Multi-Ingredient Lotion 1 applic 01/04/20 15:55 Eucerin (Small Jar) - TP Q24H PRN DRY SKIN Oxycodone HCl 10 mg 01/04/20 15:55 01/06/20 02:09 Roxicodone - PO 10 mg Q6H PRN Administration PAIN LEVEL 6-10 Pramipexole Dihydrochloride 0.25 mg 01/04/20 22:00 01/06/20 09:49 Mirapex - PO 0.25 mg BID LISA Administration Rivaroxaban 20 mg 01/04/20 18:00 01/05/20 17:22 Xarelto PO 20 mg DAILY@1800 LISA Administration Sacubitril/Valsartan 1 tab 01/04/20 22:00 01/05/20 21:04 Entresto 24 Mg-26 Mg Tablet PO 1 tab BID LISA Administration Torsemide 50 mg 01/05/20 10:00 01/05/20 09:54 Demadex - PO 50 mg DAILY LISA Administration Zolpidem Tartrate 5 mg 01/04/20 15:55 01/05/20 21:05 Ambien - PO 5 mg HS PRN Administration INSOMNIA Vital Signs Period Temp Pulse Resp BP Sys/Marcelo Pulse Ox Last 24 Hr 97.3 F-98.3 F 64-86 16-20 94-149/39-73 98 Constitutional: Yes: Well Nourished, No Distress, Calm Eyes: No: Ptosis, Sclera Icterus Neck: Yes: Supple Cardiovascular: Yes: Regular Rate and Rhythm Respiratory: Yes: Regular. 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 diabetic (uncontrolled glycemic status, does not f/u with PMD despite repeatedly advised to do so) -EF now moderately reduced (35-40%, global), last echo here 2018 was 50-55%. -has not had significant burden of AF, doubt tachy-CMP - in sinus on tele here -improved with IV lasix, then placed on po torsemide-->today cr bumped up, agree with holding diuretic and trending cr for now -Cont Coreg -low dose DORENE held during recent admit due to mild hyperkalemia and soft BPs (was on lisinopril 5 qd then). given current EF, pt has mortality benefit from Entresto. K normal, BP currently mostly > 110. - cont 24-26 BID dose here Prolonged QTC: -F/u ECGs -Keep K+ and Mg2+ normalized -Avoid / minimize QT prolonging meds VTach: -NSVT on tele -cont bb -HF optimization (diuresis) as doing -replete K/Mg to 4/2 PAF: -Cont Coreg and Xarelto -Holter to assess rate control DVT/PE with history of filter: -cont with AC NICHOLE: -not treated, pt has not followed up for cpap therapy cardiac hallman stable
--- NOTE | 2020-01-06 11:37 | PN ---
Progress Note, Physician History of Present Illness: stable no new issues drain draining - Current Medication List Current Medications: Active Medications Acetaminophen (Tylenol -) 650 mg PO Q6H PRN PRN Reason: PAIN LEVEL 1-5 OR FEVER Baclofen (Lioresal -) 10 mg PO Q8H PRN PRN Reason: MUSCLE SPASM Last Admin: 01/05/20 21:04 Dose: 10 mg Documented by: Carvedilol (Coreg -) 12.5 mg PO BID [facility] Last Admin: 01/06/20 09:49 Dose: 12.5 mg Documented by: Cyanocobalamin (Vitamin B12 -) 100 mcg PO DAILY [facility] Last Admin: 01/06/20 09:48 Dose: 100 mcg Documented by: Diazepam (Valium -) 10 mg PO DAILY [facility] Last Admin: 01/06/20 09:48 Dose: 10 mg Documented by: Docusate Sodium (Colace -) 100 mg PO DAILY [facility] Last Admin: 01/06/20 09:48 Dose: 100 mg Documented by: Ferrous Sulfate (Feosol -) 325 mg PO BIDWM [facility] Last Admin: 01/06/20 09:48 Dose: 325 mg Documented by: Gabapentin (Neurontin -) 600 mg PO DAILY [facility] Last Admin: 01/06/20 09:48 Dose: 600 mg Documented by: Ceftriaxone Sodium 1 gm/ (Dextrose) 50 mls @ 100 mls/hr IVPB DAILY [facility]; Protocol Last Admin: 01/06/20 09:47 Dose: 100 mls/hr Documented by: Insulin Aspart (Novolog Vial Sliding Scale -) 1 vial SQ ACHS [facility]; Protocol Last Admin: 01/06/20 06:38 Dose: 2 unit Documented by: Leflunomide (Arava -) 20 mg PO DAILY [facility] Last Admin: 01/06/20 09:49 Dose: 20 mg Documented by: Multi-Ingredient Lotion (Eucerin (Small Jar) -) 1 applic TP Q24H PRN PRN Reason: DRY SKIN Oxycodone HCl (Roxicodone -) 10 mg PO Q6H PRN PRN Reason: PAIN LEVEL 6-10 Last Admin: 01/06/20 02:09 Dose: 10 mg Documented by: Pramipexole Dihydrochloride (Mirapex -) 0.25 mg PO BID [facility] Last Admin: 01/06/20 09:49 Dose: 0.25 mg Documented by: Rivaroxaban (Xarelto) 20 mg PO DAILY@1800 [facility] Last Admin: 01/05/20 17:22 Dose: 20 mg Documented by: Sacubitril/Valsartan (Entresto 24 Mg-26 Mg Tablet) 1 tab PO BID [facility] Last Admin: 01/05/20 21:04 Dose: 1 tab Documented by: Torsemide (Demadex -) 50 mg PO DAILY [facility] Last Admin: 01/05/20 09:54 Dose: 50 mg Documented by: Zolpidem Tartrate (Ambien -) 5 mg PO HS PRN PRN Reason: INSOMNIA Last Admin: 01/05/20 21:05 Dose: 5 mg Documented by: - Objective Vital Signs: Vital Signs Temperature 97.3 F L 01/06/20 08:45 Pulse Rate 64 01/06/20 08:45 Respiratory Rate 16 01/06/20 08:45 Blood Pressure 149/73 01/06/20 08:45 O2 Sat by Pulse Oximetry (%) 98 01/05/20 21:00 Constitutional: Yes: No Distress, Calm Cardiovascular: Yes: S1, S2 Respiratory: Yes: Regular, CTA Bilaterally Gastrointestinal: Yes: Normal Bowel Sounds, Soft Musculoskeletal: Yes: WNL Extremities: Yes: Other Neurological: Yes: Alert, Oriented Psychiatric: Yes: Alert, Oriented Labs: CBC, BMP 01/06/20 05:35 01/06/20 05:35 INR, PTT INR 1.34 (0.83-1.09) H 12/26/19 14:20 Assessment/Plan 74 year old lady with history of CHF, RA, DM 2, HTN, Hx DVT/PE, a fib (on Xarelto), multiple spine surgeries, s/p L4/5 laminectomy then L5/S1 seroma with recent epidural abscess drainage s/p I and D - sent home on IV Rocephin via PICC 12/03 now returns with SOB , she was found to have acute CHF exa 1- Acute on chronic systolic CHF. euvolemic now. 2- H/o Epidural abscess s/p I&D. wound vac 3- Paroxysmal Atrial Fibrillation 4- Hx PE/DVT s/p IVC filter 5. DM 2: cont SSI. 6. RA 7- Normocytic Anemia - 8. NICHOLE await for cx of epidural abscess will d/w the team monitor for any symptoms rest ct current mgmt abx
--- NOTE | 2020-01-06 13:07 | PN ---
Teaching Attending Note Name of Resident: Tati Mcgregor ATTENDING PHYSICIAN STATEMENT I saw and evaluated the patient. I reviewed the resident's note and discussed the case with the resident. I agree with the resident's findings and plan as documented. SUBJECTIVE: Seen and examined at bedside. Creatinine spike noted. Torsemide and Entresto held. Otherwise hemodynamically stable OBJECTIVE: Last Vital Signs Temp Pulse Resp BP Pulse Ox 97.3 F L 64 16 149/73 98 01/06/20 08:45 01/06/20 08:45 01/06/20 09:00 01/06/20 08:45 01/06/20 09:00 PE: per resident note Labs/Imaging: reviewed A/P: 74 year old lady with history of CHF, RA, DM 2, HTN, Hx DVT/PE, a fib (on Xarelto), multiple spine surgeries, s/p L4/5 laminectomy then L5/S1 seroma with recent epidural abscess drainage s/p I and D - sent home on IV Rocephin via PICC 12/03 now returns with SOB , she was found to have acute CHF exa # Acute on chronic systolic CHF: now euvolemic - holding po torsemide 2/2 elizabeth - holding entresto 2/2 elizabeth #ELIZABETH likely from overdiuresis -hold torsemide and entresto today #H/o Epidural abscess s/p I&D. -s/p wound vac -now with pig tail in place (01/03) draining serosanguinous fluid - mass effect form collection and herniated disc explain the R foot drop and RLE weakness - cont abx . - will resume Ceftriaxone at dc - duration per Dr. Krueger. was supposed to finish 6 weeks of Abx # Paroxysmal Atrial Fibrillation - continue Coreg and Xarelto # Hx PE/DVT s/p IVC filter - resume xarelto after procedure # DM 2: cont SSI. # H/o RA : on Leflunomide. # Normocytic Anemia - possible iron def with B12 def . MMA pending . cont iron further w/u as out pt # NICHOLE - needs out-patient follow up for CPAP machine DVT Px - on Xarelto.
--- NOTE | 2020-01-06 13:36 | PN ---
Physical Exam: SUBJECTIVE: Patient seen and examined OBJECTIVE: Vital Signs Period Temp Pulse Resp BP Sys/Marcelo Pulse Ox Last 24 Hr 97.3 F-98.3 F 64-86 16-20 94-149/39-73 98-98 GENERAL: The patient is awake, alert, and fully oriented, in no acute distress. HEENT: NCAT. Sclera clear. MMM. LUNGS: Breath sounds equal, clear to auscultation bilaterally, no wheezes, no crackles. HEART: Regular rate and rhythm, S1, S2 without murmur, rub or gallop. ABDOMEN: Soft, nontender, nondistended, normoactive bowel sounds, no guarding EXTREMITIES: 2+ pulses, warm, well-perfused, no edema. Back: jostni drain in place draining serous fluid SKIN: Warm, dry, normal turgor Laboratory Results - last 24 hr 01/05/20 01/05/20 01/06/20 17:10 20:43 05:35 WBC 5.4 RBC 4.12 Hgb 11.3 Hct 35.4 MCV 86.0 MCH 27.4 MCHC 31.9 L RDW 20.4 H Plt Count 237 MPV 8.0 Sodium Potassium Chloride Carbon Dioxide Anion Gap BUN Creatinine Est GFR (CKD-EPI)AfAm Est GFR (CKD-EPI)NonAf POC Glucometer 183 144 Random Glucose Calcium Phosphorus Magnesium 01/06/20 01/06/20 01/06/20 05:35 06:28 12:04 WBC RBC Hgb Hct MCV MCH MCHC RDW Plt Count MPV Sodium 136 Potassium 5.1 Chloride 100 Carbon Dioxide 26 Anion Gap 10 BUN 67.7 H Creatinine 1.8 H Est GFR (CKD-EPI)AfAm 31.80 Est GFR (CKD-EPI)NonAf 27.44 POC Glucometer 168 262 Random Glucose 194 H Calcium 8.7 Phosphorus 5.3 H Magnesium 2.7 H Active Medications Generic Name Dose Route Start Last Admin Trade Name Freq PRN Reason Stop Dose Admin Acetaminophen 650 mg 01/04/20 15:55 Tylenol - PO Q6H PRN PAIN LEVEL 1-5 OR FEVER Baclofen 10 mg 01/04/20 15:55 01/05/20 21:04 Lioresal - PO 10 mg Q8H PRN Administration MUSCLE SPASM Carvedilol 12.5 mg 01/04/20 22:00 01/06/20 09:49 Coreg - PO 12.5 mg BID LISA Administration Cyanocobalamin 100 mcg 01/05/20 16:45 01/06/20 09:48 Vitamin B12 - PO 100 mcg DAILY LISA Administration Diazepam 10 mg 01/05/20 10:00 01/06/20 09:48 Valium - PO 10 mg DAILY LISA Administration Docusate Sodium 100 mg 01/03/20 15:15 01/06/20 09:48 Colace - PO 100 mg DAILY LISA Administration Ferrous Sulfate 325 mg 01/04/20 17:30 01/06/20 09:48 Feosol - PO 325 mg BIDWM LISA Administration Gabapentin 600 mg 01/05/20 10:00 01/06/20 09:48 Neurontin - PO 600 mg DAILY LISA Administration Ceftriaxone Sodium 1 gm/ 50 mls @ 100 mls/hr 01/05/20 10:00 01/06/20 09:47 Dextrose IVPB 100 mls/hr DAILY LISA Administration Protocol Insulin Aspart 1 vial 01/04/20 16:30 01/06/20 12:09 Novolog Vial Sliding Scale - SQ 6 unit ACHS LISA Administration Protocol Leflunomide 20 mg 01/05/20 10:00 01/06/20 09:49 Arava - PO 20 mg DAILY LISA Administration Multi-Ingredient Lotion 1 applic 01/04/20 15:55 Eucerin (Small Jar) - TP Q24H PRN DRY SKIN Oxycodone HCl 10 mg 01/04/20 15:55 01/06/20 02:09 Roxicodone - PO 10 mg Q6H PRN Administration PAIN LEVEL 6-10 Pramipexole Dihydrochloride 0.25 mg 01/04/20 22:00 01/06/20 09:49 Mirapex - PO 0.25 mg BID LISA Administration Rivaroxaban 20 mg 01/04/20 18:00 01/05/20 17:22 Xarelto PO 20 mg DAILY@1800 LISA Administration Sacubitril/Valsartan 1 tab 01/04/20 22:00 01/05/20 21:04 Entresto 24 Mg-26 Mg Tablet PO 1 tab BID LISA Administration Torsemide 50 mg 01/05/20 10:00 01/05/20 09:54 Demadex - PO 50 mg DAILY LISA Administration Zolpidem Tartrate 5 mg 01/04/20 15:55 01/05/20 21:05 Ambien - PO 5 mg HS PRN Administration INSOMNIA Imaging: * 01/01 MRI lumbar spine: Interval decrease in size of previously visualized large posterior lumbar spine collection extending from L1 down to S2 level with an air-fluid level. It measures approximately 13.2 cm in craniocaudal length and 4 cm in AP dimension with posterior epidural mass effect mainly at L4-L5 level resulting in marked canal stenosis. Rule out infection. L4-L5 right lateral posterior spur formation impinging right L4 nerve root L5-S1 mild to moderate disc herniation with mild superior extension impinging both L5 nerve roots. ASSESSMENT/PLAN: 74 y.o. F PMH CHF (EF 35-40%), RA, DM 2, HTN, Hx DVT/PE, a fib (on Xarelto), known non-ischemic cardiomyopathy, multiple spine surgeries, s/p L4/5 laminectomy then L5/S1 seroma with recent epidural abscess drainage s/p I and D, complex wound closure and wound vac placement 11/26-sent home on IV Rocephin via PICC 11/29 who returned w/ shortness of breath for 3 days admitted for CHF exacerbation #ELIZABETH -Cr 1.8 today (1.2 yesterday) -holding torsemide & entresto today #Acute on chronic systolic-CHF exacerbation -COVID negative swabbed 12/25 -CXR 12/25: mild b/l interstitial markings -on diuresis but holding today 2/2 elizabeth (torsemide) -trend daily weights, BUN/Cr strictly -echo 12/26: LV sys function moderately reduced. EF 35-50%; moderate global hypokinesis of LV. LA dilation. Mod MR, trace TR. (previous Echo in 2018- w/ EF 55%) -continue coreg 12.5mg PO BID -holding Entresto 24-26 BID in setting of elizabeth -cardio following -strict Is & O's #Epidural Abscess -s/p I and D; discharged 12/03 on 4 week course of IV ceftriaxone via PICC -Dr. Borjas following -s/p wound vac, now removed, JOSTIN drain placed 01/03 -pain control: Oxy 10mg Q6 PRN -PICC line was removed by pt, receiving IV abx via peripheral IV- ceftriaxone day #6; (was sent home 12/03 w/ PICC and required 6 weeks outpatient abx; completed ~3.5 weeks before this admission) -f/u final organisms wound abscess -ID following- Dr. Krueger -1 x blood cx staph epi likely contaminate- r/p blood cx negaive x2 #Paroxysmal Atrial Fibrillation -continue Coreg -Xarelto 20mg daily -Holter as per cardio to assess rate control #Hx PE/DVT -c/w Xarelto #DM -HbA1c 9.0% -BGMs, ISS ACHS -hold home oral agents #RA -c/w Leflunomide #Normocytic Anemia -2/2 to anemia of chronic disease -Iron/Ferritin/B12/Folate levels- consistent with above -continue feosol #NICHOLE not treated, pt has not followed up for cpap therapy #DVT Ppx on Xarelto #FEN -no standing fluids -monitor lytes -Diabetic diet Dispo: cont to monitor on med surg Visit type - Emergency Visit Emergency Visit: No - New Patient This patient is new to me today: Yes Date on this admission: 01/06/20 - Critical Care Critical Care patient: No ATTENDING PHYSICIAN STATEMENT I saw and evaluated the patient. I reviewed the resident's note and discussed the case with the resident. I agree with the resident's findings and plan as documented. SUBJECTIVE: OBJECTIVE: ASSESSMENT AND PLAN:
[2020-01-06] MEDS: RIVAROXABAN 20 MG TABLET PO SCH (17:41)
[2020-01-06] MEDS ORDERED: ACETAMINOPHEN 1000 MG/100 ML VIAL (NON FORMULARY) IVPB ONE (18:34)
[2020-01-07] MEDS: oxyCODONE HCL 5 MG TABLET PO PRN ×2 (03:50→21:47)
[2020-01-07] MEDS: INSULIN SLIDING SCALE (NOVOLOG) 1 VIAL SQ SCH ×4 (06:33→21:26)
[2020-01-07] MEDS: BACLOFEN 10 MG TABLET (FP) PO PRN (06:49)
[2020-01-07 08:45] LABS: HEMATOCRIT 35.4 % (32.4-45.2); HEMOGLOBIN 11.3 GM/dL (10.7-15.3); MCH 27.4 pg (25.7-33.7); MCHC 31.9 g/dl (32.0-36.0); MEAN CELL VOLUME 85.9 fl (80-96); MEAN PLT VOLUME 8.2 fl (7.5-11.1); PLATELET COUNT 255 K/MM3 (134-434); RBC 4.12 M/mm3 (3.60-5.2); RDW 21.4 % (11.6-15.6); WHITE BLOOD COUNT 5.9 K/mm3 (4.0-10.0)
[2020-01-07] MEDS: FERROUS SO4 325 MG TABLET (FP) PO SCH ×2 (08:56→17:45)
[2020-01-07 09:13] LABS: ALBUMIN 3.1 g/dl (3.4-5.0); BILIRUBIN,TOTAL 0.5 mg/dL (0.2-1); BLOOD UREA NITROGEN 64.5 mg/dL (7-18); CALCIUM 8.9 mg/dL (8.5-10.1); CREATININE 1.2 mg/dL (0.55-1.3); POTASSIUM 5.1 mmol/L (3.5-5.1)
--- NOTE | 2020-01-07 10:06 | PN ---
Progress Note (short form) - Note Progress Note: 74F well known to [facility] Orthopaedic service now admitted w/CHF exacerbation. Pt. has chronic, draining lumbar spine wound, which is not the cause for admission. This is a chronic, stable condition. Pt. admitted due to SOB and cardiopulmonary concern. (+) New RLE foot drop. Back pain well controlled. Pt. reports continued right lateral hip pain consistent with trochanteric bursitis. No acute events overnight. Pt. denies overnight history of headaches, chest pain, shortness of breath, nausea, vomiting, chills, & sweats. (+) Voiding; (+) Flatus; (+) BM. Pt. ambulated with assistance in room; patient remains grossly deconditioned due to morbid obesity and sedentary lifestyle. All labs and vitals reviewed. MRI L-Spine Reviewed: Epidural fluid collection causing stenosis of the thecal sac due to mass effect. Please refer to radiology report for further details. PE: AAO x 3, NAD. L-Spine: Wound vac dressing removed. Wound C/D/I. Incision continues to heal. No active wound drainage; sinus sealed. No signs of concerning jennifer-incisional inflammation/infection. Dry dressing applied transversely just distal to distal wound apex to prevent stool from tracking up to the wound. RLE M: HF/KF/KE/ADF 5/5; ADF/GTE 1/5 (I.E. foot drop). RLE S: Femoral, Saphenous, Lateral Sural, Tibial Nerves 2/2; Superficial Peroneal Nerve 2/2; Deep Peroneal Nerve 0/2. A/P: 74F w/draining chronic lumbar wound (under control) sent to [facility] for admission and management of CHF exacerbation. -Pt. scheduled for IR drainage of lumbar epidural fluid collection with placement of indwelling pigtail catheter to continue draining deadspace. -Will re-evaluate NV status after evacuation of fluid collection, as this should relieve focal stenosis and neurological compromise. If neurological compromise persists, surgical decompression of the lumbar spine is NOT indicated at this t anthony; exposure of the thecal sac and nerve roots (which were previously thoroughly surgically decompressed) in the setting of a chronic, draining wound, could result in potentially fatal septic meningitis. Will consider second opinion from neurosurgical colleague in this instance. -Pt. will be receiving heel-offloading AFO splint for use in bed and functional AFO splint for ambulation later today. -Care per primary cardiology team, as this is the purpose for this admission. -Pain medication: recommend oxyocodone 10mg PO q6h PRN pain (patient has multiple orthopaedic problems). -Dry dressing changes as needed to prevent stool from tracking up wound. -Attentive perineal hygiene. -IV antibiotics as per Dr. Krueger (ID team); no indiction for Vancomycin; replace PICC line; consider chronic, suppressive antibiotic therapy. -DVT PPx: -Mechanical: MARLON's, SCD's. -Chemical: Xarelto qD. -f/u AM labs. -Incentive spirometry. -PT/OT/Rehab, OOB at least once daily, ideally 2-3 times daily. -WBAT B/L LE. -Advance diet as tolerated. -No heavy lifting (>5 lbs), bending or twisting. -B/L UE & LE NV checks. -Care per primary medical hospitalist team & ID team; no plan for surgical debridement at this time. -Will follow. Luis Borjas MD (Orthopaedic Surgery).
[2020-01-07] MEDS ORDERED: PT OWN MED DRAWER 7, Y5N ONE ×4 (10:12→18:08)
[2020-01-07] MEDS ORDERED: cefTRIAXone SODIUM 1 GM VIAL ONE (10:13)
[2020-01-07] MEDS ORDERED: DEXTROSE 5%-WATER - 50 ML IVPB ONE (10:13)
[2020-01-07] MEDS: CARVEDILOL 12.5 MG TABLET (FP) PO SCH ×2 (10:19→21:47)
[2020-01-07] MEDS: CEFTRIAXONE 1 GM in DEXTROSE 5%-WATER - 50 ML IVPB SCH (10:19)
[2020-01-07] MEDS: diazePAM 5 MG TABLET PO SCH (10:19)
[2020-01-07] MEDS: GABAPENTIN 300 MG CAPSULE PO SCH (10:19)
[2020-01-07] MEDS: DOCUSATE SODIUM 100 MG CAPSULE (FP) PO SCH (10:19)
--- NOTE | 2020-01-07 10:19 | PN ---
Progress Note (short form) - Note Progress Note: 74F well known to [facility] Orthopaedic service now admitted w/CHF exacerbation. Pt. has chronic, draining lumbar spine wound, which is not the cause for admission. This is a chronic, stable condition. Pt. admitted due to SOB and cardiopulmonary concern. Per patient, progressively worsened RLE foot drop over the past year that has gotten worse over the last few months. Back pain well controlled. Pt. reports continued right lateral hip pain consistent with trochanteric bursitis due to uncovering of the shoulder of her hip prosthesis (femoral stem). Spontaneous nerve pain from right lateral knee down to foot. No acute events overnight. Pt. denies overnight history of headaches, chest pain, shortness of breath, nausea, vomiting, chills, & sweats. (+) Voiding; (+) Flatus; (+) BM. Pt. preserves full bowel and bladder control. Pt. ambulated with assistance in room; patient remains grossly de-conditioned due to morbid obesity and sedentary habitus. All labs and vitals reviewed. PE: AAO x 3, NAD. L-Spine: Lumbar spine wound C/D/I. Pigtail catheter intact and in place. (+) Tinnnel's test over common peroneal nerve at the level of the fibular head. RLE M: HF/KF/KE/ADF 5/5; ADF/GTE 1/5 (I.E. foot drop). RLE S: Femoral, Saphenous, Lateral Sural, Tibial Nerves 2/2; Superficial Peroneal Nerve 2/2; Deep Peroneal Nerve 0/2. A/P: 74F w/draining chronic lumbar wound (under control) sent to [facility] for admission and management of CHF exacerbation. -Recommend B/L LE EMG study. -Recommend neurological evaluation by primary neurologist Dr. Carreno. -Consider replacing Gabapentin with Cymbalta. -Maintain indwelling lumbar spine pigtail catheter to continuously drain effective space. -Surgery not indicated at this time; exposure of the thecal sac and nerve roots (which were previously thoroughly surgically decompressed) in the setting of a chronic, draining wound, could result in potentially fatal septic meningitis. Will consider second opinion from neurosurgical colleague (Dr. Lala). -Continue use of heel-offloading AFO splint for use in bed and functional AFO splint for ambulation. -Care per primary cardiology team, as this is the purpose for this admission. -Pain medication: recommend oxyocodone 10mg PO q6h PRN pain (patient has multiple orthopaedic problems). -Dry dressing changes as needed to prevent stool from tracking up wound. -Attentive perineal hygiene. -Abx per Dr. Harris (ID team). -DVT PPx: -Mechanical: MARLON's, SCD's. -Chemical: Xarelto qD. -f/u AM labs. -Incentive spirometry. -PT/OT/Rehab, OOB at least once daily, ideally 2-3 times daily. -WBAT B/L LE. -Advance diet as tolerated. -No heavy lifting (>5 lbs), bending or twisting. -B/L UE & LE NV checks. -Care per primary medical hospitalist team & ID team; no plan for surgical debridement at this time. -Will follow. Luis Borjas MD (Orthopaedic Surgery).
[2020-01-07] MEDS: PRAMIPEXOLE DIHYDROCHLORIDE 0.25 MG TABLET PO SCH ×2 (10:20→21:47)
[2020-01-07] MEDS: TORSEMIDE 100 MG TABLET PO SCH (10:20)
[2020-01-07] MEDS: SACUBITRIL/VALSARTAN 24 MG-26 MG TABLET PO SCH ×2 (10:20→21:47)
[2020-01-07] MEDS: LEFLUNOMIDE 10 MG TABLET PO SCH (10:21)
--- NOTE | 2020-01-07 11:48 | PN ---
Progress Note, Physician History of Present Illness: patient stable received more than 5 weeks of abx epidural collection noted--no growth fungal cx not back leg pain main issues - Current Medication List Current Medications: Active Medications Acetaminophen (Tylenol -) 650 mg PO Q6H PRN PRN Reason: PAIN LEVEL 1-5 OR FEVER Baclofen (Lioresal -) 10 mg PO Q8H PRN PRN Reason: MUSCLE SPASM Last Admin: 01/07/20 06:49 Dose: 10 mg Documented by: Carvedilol (Coreg -) 12.5 mg PO BID ON LICENSE OF [facility] Last Admin: 01/07/20 10:19 Dose: 12.5 mg Documented by: Cyanocobalamin (Vitamin B12 -) 100 mcg PO DAILY ON LICENSE OF [facility] Last Admin: 01/06/20 09:48 Dose: 100 mcg Documented by: Diazepam (Valium -) 10 mg PO DAILY ON LICENSE OF [facility] Last Admin: 01/07/20 10:19 Dose: 10 mg Documented by: Docusate Sodium (Colace -) 100 mg PO DAILY ON LICENSE OF [facility] Last Admin: 01/07/20 10:19 Dose: 100 mg Documented by: Ferrous Sulfate (Feosol -) 325 mg PO BIDWM ON LICENSE OF [facility] Last Admin: 01/07/20 08:56 Dose: 325 mg Documented by: Gabapentin (Neurontin -) 600 mg PO DAILY ON LICENSE OF [facility] Last Admin: 01/07/20 10:19 Dose: 600 mg Documented by: Ceftriaxone Sodium 1 gm/ (Dextrose) 50 mls @ 100 mls/hr IVPB DAILY ON LICENSE OF [facility]; Protocol Last Admin: 01/07/20 10:19 Dose: 100 mls/hr Documented by: Insulin Aspart (Novolog Vial Sliding Scale -) 1 vial SQ ACHS ON LICENSE OF [facility]; Protocol Last Admin: 01/07/20 06:33 Dose: 2 unit Documented by: Leflunomide (Arava -) 20 mg PO DAILY ON LICENSE OF [facility] Last Admin: 01/07/20 10:21 Dose: 20 mg Documented by: Multi-Ingredient Lotion (Eucerin (Small Jar) -) 1 applic TP Q24H PRN PRN Reason: DRY SKIN Oxycodone HCl (Roxicodone -) 10 mg PO Q6H PRN PRN Reason: PAIN LEVEL 6-10 Last Admin: 01/07/20 03:50 Dose: 10 mg Documented by: Pramipexole Dihydrochloride (Mirapex -) 0.25 mg PO BID ON LICENSE OF [facility] Last Admin: 01/07/20 10:20 Dose: 0.25 mg Documented by: Rivaroxaban (Xarelto) 20 mg PO DAILY@1800 ON LICENSE OF [facility] Last Admin: 01/06/20 17:41 Dose: 20 mg Documented by: Sacubitril/Valsartan (Entresto 24 Mg-26 Mg Tablet) 1 tab PO BID ON LICENSE OF [facility] Last Admin: 01/07/20 10:20 Dose: 1 tab Documented by: Torsemide (Demadex -) 50 mg PO DAILY ON LICENSE OF [facility] Last Admin: 01/07/20 10:20 Dose: 50 mg Documented by: Zolpidem Tartrate (Ambien -) 5 mg PO HS PRN PRN Reason: INSOMNIA Last Admin: 01/05/20 21:05 Dose: 5 mg Documented by: - Objective Vital Signs: Vital Signs Temperature 97.5 F L 01/07/20 07:08 Pulse Rate 76 01/07/20 07:08 Respiratory Rate 20 01/07/20 07:08 Blood Pressure 117/74 01/07/20 07:08 O2 Sat by Pulse Oximetry (%) 98 01/06/20 21:00 Constitutional: Yes: No Distress, Calm Cardiovascular: Yes: S1, S2 Respiratory: Yes: Regular, CTA Bilaterally Gastrointestinal: Yes: Normal Bowel Sounds, Soft Musculoskeletal: Yes: Back Pain Extremities: Yes: Other (rt leg pain) Neurological: Yes: Alert, Oriented Labs: CBC, BMP 01/07/20 06:50 01/07/20 06:50 INR, PTT INR 1.34 (0.83-1.09) H 12/26/19 14:20 Assessment/Plan 74 year old lady with history of CHF, RA, DM 2, HTN, Hx DVT/PE, a fib (on Xarelto), multiple spine surgeries, s/p L4/5 laminectomy then L5/S1 seroma with recent epidural abscess drainage s/p I and D - sent home on IV Rocephin via PICC 12/03 now returns with SOB , she was found to have acute CHF exa 1- Acute on chronic systolic CHF. euvolemic now. 2- H/o Epidural abscess s/p I&D. wound vac 3- Paroxysmal Atrial Fibrillation 4- Hx PE/DVT s/p IVC filter 5. DM 2: cont SSI. 6. RA 7- Normocytic Anemia - 8. NICHOLE all cx reports noted patient has received more than 5 weeks of iv abx i would suggest that the patient can be changed to oral now can switch to augmentin for one week wound care monitor drainage rest as per the team follow fungal cx though if the fungal cx are positive then will decide
--- NOTE | 2020-01-07 11:56 | PN ---
Progress Note (short form) - Note Progress Note: Chief Complaint: leg swelling, sob History of Present Illness: no edema, chest pain, palps, sob, dizzy Current Medications Generic Name Dose Route Start Last Admin Trade Name Freq PRN Reason Stop Dose Admin Acetaminophen 650 mg 01/04/20 15:55 Tylenol - PO Q6H PRN PAIN LEVEL 1-5 OR FEVER Baclofen 10 mg 01/04/20 15:55 01/07/20 06:49 Lioresal - PO 10 mg Q8H PRN Administration MUSCLE SPASM Carvedilol 12.5 mg 01/04/20 22:00 01/07/20 10:19 Coreg - PO 12.5 mg BID LISA Administration Cyanocobalamin 100 mcg 01/05/20 16:45 01/06/20 09:48 Vitamin B12 - PO 100 mcg DAILY LISA Administration Diazepam 10 mg 01/05/20 10:00 01/07/20 10:19 Valium - PO 10 mg DAILY LISA Administration Docusate Sodium 100 mg 01/03/20 15:15 01/07/20 10:19 Colace - PO 100 mg DAILY LISA Administration Ferrous Sulfate 325 mg 01/04/20 17:30 01/07/20 08:56 Feosol - PO 325 mg BIDWM LISA Administration Gabapentin 600 mg 01/05/20 10:00 01/07/20 10:19 Neurontin - PO 600 mg DAILY LISA Administration Ceftriaxone Sodium 1 gm/ 50 mls @ 100 mls/hr 01/05/20 10:00 01/07/20 10:19 Dextrose IVPB 100 mls/hr DAILY LISA Administration Protocol Insulin Aspart 1 vial 01/04/20 16:30 01/07/20 06:33 Novolog Vial Sliding Scale - SQ 2 unit ACHS LISA Administration Protocol Leflunomide 20 mg 01/05/20 10:00 01/07/20 10:21 Arava - PO 20 mg DAILY LISA Administration Multi-Ingredient Lotion 1 applic 01/04/20 15:55 Eucerin (Small Jar) - TP Q24H PRN DRY SKIN Oxycodone HCl 10 mg 01/04/20 15:55 01/07/20 03:50 Roxicodone - PO 10 mg Q6H PRN Administration PAIN LEVEL 6-10 Pramipexole Dihydrochloride 0.25 mg 01/04/20 22:00 01/07/20 10:20 Mirapex - PO 0.25 mg BID LISA Administration Rivaroxaban 20 mg 01/04/20 18:00 01/06/20 17:41 Xarelto PO 20 mg DAILY@1800 LISA Administration Sacubitril/Valsartan 1 tab 01/04/20 22:00 01/07/20 10:20 Entresto 24 Mg-26 Mg Tablet PO 1 tab BID LISA Administration Torsemide 50 mg 01/05/20 10:00 01/07/20 10:20 Demadex - PO 50 mg DAILY LISA Administration Zolpidem Tartrate 5 mg 01/04/20 15:55 01/05/20 21:05 Ambien - PO 5 mg HS PRN Administration INSOMNIA Vital Signs Period Temp Pulse Resp BP Sys/Marcelo Pulse Ox Last 24 Hr 97.4 F-97.7 F 71-79 18-20 112-132/50-74 98 Constitutional: Yes: Well Nourished, No Distress, Calm Eyes: No: Ptosis, Sclera Icterus Neck: Yes: Supple Cardiovascular: Yes: Regular Rate and Rhythm Respiratory: Yes: Regular. No: Accessory Muscle Use Extremities: No: Cyanosis Edema: No Neurological: Yes: Alert, Oriented Psychiatric: No: Agitated CBC,CMP WBC 5.9 K/mm3 (4.0-10.0) 01/07/20 06:50 RBC 4.12 M/mm3 (3.60-5.2) 01/07/20 06:50 Hgb 11.3 GM/dL (10.7-15.3) 01/07/20 06:50 Hct 35.4 % (32.4-45.2) 01/07/20 06:50 MCV 85.9 fl (80-96) 01/07/20 06:50 MCH 27.4 pg (25.7-33.7) 01/07/20 06:50 MCHC 31.9 g/dl (32.0-36.0) L 01/07/20 06:50 RDW 21.4 % (11.6-15.6) H 01/07/20 06:50 Plt Count 255 K/MM3 (134-434) 01/07/20 06:50 MPV 8.2 fl (7.5-11.1) 01/07/20 06:50 Absolute Neuts (auto) 3.1 K/mm3 (1.5-8.0) 12/31/19 06:30 Neutrophils % 51.1 % (42.8-82.8) 12/31/19 06:30 Lymphocytes % 27.2 % (8-40) 12/31/19 06:30 Monocytes % 12.7 % (3.8-10.2) H 12/31/19 06:30 Eosinophils % 7.6 % (0-4.5) H D 12/31/19 06:30 Basophils % 1.4 % (0-2.0) 12/31/19 06:30 Nucleated RBC % 0 % (0-0) 12/31/19 06:30 Sodium 137 mmol/L (136-145) 01/07/20 06:50 Potassium 5.1 mmol/L (3.5-5.1) 01/07/20 06:50 Chloride 101 mmol/L (98-107) 01/07/20 06:50 Carbon Dioxide 28 mmol/L (21-32) 01/07/20 06:50 Anion Gap 8 MMOL/L (8-16) 01/07/20 06:50 BUN 64.5 mg/dL (7-18) H 01/07/20 06:50 Creatinine 1.2 mg/dL (0.55-1.3) 01/07/20 06:50 Est GFR (CKD-EPI)AfAm 51.92 01/07/20 06:50 Est GFR (CKD-EPI)NonAf 44.80 01/07/20 06:50 POC Glucometer 175 UNITS (80-120) 01/07/20 05:39 Random Glucose 209 mg/dL (74-106) H 01/07/20 06:50 Lactic Acid 1.5 mmol/L (0.4-2.0) 12/26/19 14:20 Calcium 8.9 mg/dL (8.5-10.1) 01/07/20 06:50 Phosphorus 5.3 mg/dL (2.5-4.9) H 01/06/20 05:35 Magnesium 2.7 mg/dL (1.8-2.4) H 01/06/20 05:35 Iron 22 ug/dL (50-175) L 12/28/19 09:35 TIBC 307 ug/dL (250-450) 12/28/19 09:35 Iron Saturation 7 % (17.5-39) L 12/28/19 09:35 Unsaturated IBC 285 ug/dL (200-275) H 12/28/19 09:35 Ferritin 43.1 ng/ml (8-388) 12/28/19 09:35 Total Bilirubin 0.5 mg/dL (0.2-1) 01/07/20 06:50 AST 17 U/L (15-37) 01/07/20 06:50 ALT 9 U/L (13-61) L 01/07/20 06:50 Alkaline Phosphatase 143 U/L (45-117) H 01/07/20 06:50 LD Total 603 U/L (84-246) H 12/26/19 14:20 Creatine Kinase 136 U/L (26-192) 12/26/19 20:50 Creatine Kinase Cancelled 12/26/19 20:50 Troponin I < 0.02 ng/ml (0.00-0.05) 12/28/19 19:40 C-Reactive Protein 3.5 MG/DL (0.00-0.3) H 12/26/19 14:20 B-Natriuretic Peptide 3077.7 pg/ml (5-125) H 12/30/19 07:20 Total Protein 7.0 g/dl (6.4-8.2) 01/07/20 06:50 Albumin 3.1 g/dl (3.4-5.0) L 01/07/20 06:50 Vitamin B12 352 pg/ml (193-986) 12/28/19 09:35 Methylmalonic Acid 713 nmol/L (0-378) H 01/02/20 05:35 Serum Folate 17 ng/mL (3.1-17.5) 12/28/19 09:35 Assessment/Plan tele: sr IMP: Epidural abscess, wound infection Acute on chronic systolic CHF, with what appears to be new LV dysfx from 2018 Moderate MR Prolonged QT PAF HTN 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 diabetic (uncontrolled glycemic status, does not f/u with PMD despite repeatedly advised to do so) -EF now moderately reduced (35-40%, global), last echo here 2018 was 50-55%. -has not had significant burden of AF, doubt tachy-CMP - in sinus on tele here -improved with IV lasix, then placed on po torsemide, cr improved today, continue torsemide. -Cont Coreg -low dose DORENE held during recent admit due to mild hyperkalemia and soft BPs (was on lisinopril 5 qd then). given current EF, pt has mortality benefit from Entresto. K normal, BP currently mostly > 110. - cont 24-26 BID dose here Prolonged QTC: -F/u ECGs -Keep K+ and Mg2+ normalized -Avoid / minimize QT prolonging meds VTach: -NSVT on tele -cont bb -HF optimization (diuresis) as doing -replete K/Mg to 4/2 PAF: -Cont Coreg and Xarelto -Holter to assess rate control DVT/PE with history of filter: -cont with AC NICHOLE: -not treated, pt has not followed up for cpap therapy cardiac hallman stable
[2020-01-07] MEDS ORDERED: INSULIN (NOVOLOG) ASPART 100 UNITS/ML 10ML VIAL ONE (13:31)
--- NOTE | 2020-01-07 15:17 | PN ---
Teaching Attending Note Name of Resident: Tati Mcgregor ATTENDING PHYSICIAN STATEMENT I saw and evaluated the patient. I reviewed the resident's note and discussed the case with the resident. I agree with the resident's findings and plan as documented. SUBJECTIVE: Seen and examined at bedside. Creatinine improved 1.2. Can restart Entresto. Restart torsemide tomorrow. Patient reports significantly worse "nerve pain" in her left leg that is reminiscent of before she had her back surgery. Will discuss with neurosurgery OBJECTIVE: Last Vital Signs Temp Pulse Resp BP Pulse Ox 97.6 F 80 20 110/50 L 98 01/07/20 10:00 01/07/20 10:00 01/07/20 10:00 01/07/20 10:00 01/07/20 09:00 PE: per resident note Labs/Imaging: reviewed A/P: 74 year old lady with history of CHF, RA, DM 2, HTN, Hx DVT/PE, a fib (on Xarelto), multiple spine surgeries, s/p L4/5 laminectomy then L5/S1 seroma with recent epidural abscess drainage s/p I and D - sent home on IV Rocephin via PICC 12/03 now returns with SOB , she was found to have acute CHF exa # Acute on chronic systolic CHF: now euvolemic - holding po torsemide 2/2 elizabeth - holding entresto 2/2 elizabeth #RLE pain in setting of complex spinal pathology -will discuss management of case with neurosurgery #ELIZABETH likely from overdiuresis -hold torsemide and entresto today #H/o Epidural abscess s/p I&D. -s/p wound vac -now with pig tail in place (01/03) draining serosanguinous fluid - mass effect form collection and herniated disc explain the R foot drop and RLE weakness - cont abx . - will resume Ceftriaxone at dc - duration per Dr. Krueger. was supposed to finish 6 weeks of Abx # Paroxysmal Atrial Fibrillation - continue Coreg and Xarelto # Hx PE/DVT s/p IVC filter - resume xarelto after procedure # DM 2: cont SSI. # H/o RA : on Leflunomide. # Normocytic Anemia - possible iron def with B12 def . MMA pending . cont iron further w/u as out pt # NICHOLE - needs out-patient follow up for CPAP machine DVT Px - on Xarelto. Dispo: Patient at this point is medically stable. DC is pending management of patient's RLE pain and placement of PICC line.
--- NOTE | 2020-01-07 16:01 | PN ---
Physical Exam: SUBJECTIVE: Patient seen and examined. Pt c/o RLE radiculopathic pain. Pain begins mid back radiating to rt foot. Improved w/ tylenol & oxy. Spoke w/ Dr. Borjas- no immediate surgical intervention a this time. 55cc output fom JOSTIN back drain overnight. OBJECTIVE: Vital Signs Period Temp Pulse Resp BP Sys/Marcelo Pulse Ox Last 24 Hr 97.4 F-97.7 F 74-82 20-20 102-132/46-74 98-98 GENERAL: The patient is awake, alert, and fully oriented, in no acute distress. HEENT: NCAT. Sclera clear. MMM. LUNGS: Breath sounds equal, clear to auscultation bilaterally, no wheezes, no crackles. HEART: Regular rate and rhythm, S1, S2 without murmur, rub or gallop. ABDOMEN: Soft, nontender, nondistended, normoactive bowel sounds, no guarding EXTREMITIES: 2+ pulses, warm, well-perfused, no edema. Back: abscess w/ jostin drain in place draining serous fluid SKIN: Warm, dry, normal turgor Laboratory Results - last 24 hr 01/06/20 01/06/20 01/07/20 17:02 20:48 05:39 WBC RBC Hgb Hct MCV MCH MCHC RDW Plt Count MPV Sodium Potassium Chloride Carbon Dioxide Anion Gap BUN Creatinine Est GFR (CKD-EPI)AfAm Est GFR (CKD-EPI)NonAf POC Glucometer 162 248 175 Random Glucose Calcium Total Bilirubin AST ALT Alkaline Phosphatase Total Protein Albumin 01/07/20 01/07/20 01/07/20 06:50 06:50 13:24 WBC 5.9 RBC 4.12 Hgb 11.3 Hct 35.4 MCV 85.9 MCH 27.4 MCHC 31.9 L RDW 21.4 H Plt Count 255 MPV 8.2 Sodium 137 Potassium 5.1 Chloride 101 Carbon Dioxide 28 Anion Gap 8 BUN 64.5 H Creatinine 1.2 Est GFR (CKD-EPI)AfAm 51.92 Est GFR (CKD-EPI)NonAf 44.80 POC Glucometer 280 Random Glucose 209 H Calcium 8.9 Total Bilirubin 0.5 AST 17 ALT 9 L Alkaline Phosphatase 143 H Total Protein 7.0 Albumin 3.1 L Active Medications Generic Name Dose Route Start Last Admin Trade Name Freq PRN Reason Stop Dose Admin Acetaminophen 650 mg 01/04/20 15:55 Tylenol - PO Q6H PRN PAIN LEVEL 1-5 OR FEVER Baclofen 10 mg 01/04/20 15:55 01/07/20 06:49 Lioresal - PO 10 mg Q8H PRN Administration MUSCLE SPASM Carvedilol 12.5 mg 01/04/20 22:00 01/07/20 10:19 Coreg - PO 12.5 mg BID [facility] Administration Cyanocobalamin 100 mcg 01/05/20 16:45 01/06/20 09:48 Vitamin B12 - PO 100 mcg DAILY [facility] Administration Diazepam 10 mg 01/05/20 10:00 01/07/20 10:19 Valium - PO 10 mg DAILY [facility] Administration Docusate Sodium 100 mg 01/03/20 15:15 01/07/20 10:19 Colace - PO 100 mg DAILY [facility] Administration Ferrous Sulfate 325 mg 01/04/20 17:30 01/07/20 08:56 Feosol - PO 325 mg BIDWM [facility] Administration Gabapentin 600 mg 01/05/20 10:00 01/07/20 10:19 Neurontin - PO 600 mg DAILY [facility] Administration Ceftriaxone Sodium 1 gm/ 50 mls @ 100 mls/hr 01/05/20 10:00 01/07/20 10:19 Dextrose IVPB 100 mls/hr DAILY [facility] Administration Protocol Insulin Aspart 1 vial 01/04/20 16:30 01/07/20 13:54 Novolog Vial Sliding Scale - SQ 6 unit ACHS [facility] Administration Protocol Insulin Aspart 3 units 01/07/20 16:30 Novolog Vial SQ TIDAC [facility] Protocol Insulin Detemir 10 units 01/07/20 22:00 Levemir Vial SQ HS [facility] Leflunomide 20 mg 01/05/20 10:00 01/07/20 10:21 Arava - PO 20 mg DAILY [facility] Administration Multi-Ingredient Lotion 1 applic 01/04/20 15:55 Eucerin (Small Jar) - TP Q24H PRN DRY SKIN Oxycodone HCl 10 mg 01/04/20 15:55 01/07/20 03:50 Roxicodone - PO 10 mg Q6H PRN Administration PAIN LEVEL 6-10 Pramipexole Dihydrochloride 0.25 mg 01/04/20 22:00 01/07/20 10:20 Mirapex - PO 0.25 mg BID [facility] Administration Rivaroxaban 20 mg 01/04/20 18:00 01/06/20 17:41 Xarelto PO 20 mg DAILY@1800 [facility] Administration Sacubitril/Valsartan 1 tab 01/04/20 22:00 01/07/20 10:20 Entresto 24 Mg-26 Mg Tablet PO 1 tab BID [facility] Administration Torsemide 50 mg 01/05/20 10:00 01/07/20 10:20 Demadex - PO 50 mg DAILY [facility] Administration Zolpidem Tartrate 5 mg 01/04/20 15:55 01/05/20 21:05 Ambien - PO 5 mg HS PRN Administration INSOMNIA ASSESSMENT/PLAN: 74 y.o. F PMH CHF (EF 35-40%), RA, DM 2, HTN, Hx DVT/PE, a fib (on Xarelto), known non-ischemic cardiomyopathy, multiple spine surgeries, s/p L4/5 laminectomy then L5/S1 seroma with recent epidural abscess drainage s/p I and D, complex wound closure and wound vac placement 11/26-sent home on IV Rocephin via PICC 11/29 who returned w/ shortness of breath for 3 days admitted for CHF exacerbation #Acute on chronic systolic-CHF exacerbation -COVID negative swabbed 12/25 -CXR 12/25: mild b/l interstitial markings -cntnue diuresis (torsemide) -trend daily weights, BUN/Cr strictly -echo 12/26: LV sys function moderately reduced. EF 35-50%; moderate global hypokinesis of LV. LA dilation. Mod MR, trace TR. (previous Echo in 2018- w/ EF 55%) -continue coreg 12.5mg PO BID -Entresto 24-26 BID -cardio following -strict Is & O's #ELIZABETH -Cr 1.2 today, resolving -torsemide & entresto held yesterday -f/u AM Cr #Epidural Abscess -s/p I and D; discharged 12/03 on 4 week course of IV ceftriaxone via PICC -Dr. Borjas following -s/p wound vac, now removed, JOSTIN drain placed 01/03 -pain control: Oxy 10mg Q6 PRN, tylenol -PICC line was removed by pt, receiving IV abx via peripheral IV- ceftriaxone day #7; (was sent home 12/03 w/ PICC and required 6 weeks outpatient abx; completed ~3.5 weeks before this admission) -wound abscess cxs negative -ID following- Dr. Krueger: pt has received about 5 weks abx out of previously staed 6 weeks. Can transition to PO x 1 week -1 x blood cx staph epi likely contaminate- r/p blood cx negative x2 #Paroxysmal Atrial Fibrillation -continue Coreg -Xarelto 20mg daily -Holter as per cardio to assess rate control #Hx PE/DVT -c/w Xarelto #DM -HbA1c 9.0% -BGMs, ISS ACHS -hold home oral agents #RA -c/w Leflunomide #Normocytic Anemia -2/2 to anemia of chronic disease -Iron/Ferritin/B12/Folate levels- consistent with above -continue feosol #NICHOLE not treated, pt has not followed up for cpap therapy #DVT Ppx on Xarelto #FEN -no standing fluids -monitor lytes -Diabetic diet Dispo: cont to monitor on med surg. pending ortho recs for d/c w/ PO abx patient would like to go home w/ vns services, does not wish to go to snf Visit type - Emergency Visit Emergency Visit: No - New Patient This patient is new to me today: No - Critical Care Critical Care patient: No ATTENDING PHYSICIAN STATEMENT I saw and evaluated the patient. I reviewed the resident's note and discussed the case with the resident. I agree with the resident's findings and plan as documented. SUBJECTIVE: OBJECTIVE: ASSESSMENT AND PLAN:
[2020-01-07] MEDS: RIVAROXABAN 20 MG TABLET PO SCH (17:45)
[2020-01-07] MEDS: INSULIN (NOVOLOG) ASPART 100 UNITS/ML 10ML VIAL SQ SCH (17:50)
[2020-01-07] MEDS: CYANOCOBALAMIN (VITAMIN B-12) 100 MCG TABLET PO SCH (18:09)
[2020-01-07] MEDS: INSULIN (LEVEMIR) 100 UNITS/ML UNITS SQ SCH (21:48)
[2020-01-08] MEDS: ZOLPIDEM TARTRATE 5 MG TABLET PO PRN (02:38)
[2020-01-08] MEDS: INSULIN (NOVOLOG) ASPART 100 UNITS/ML 10ML VIAL SQ SCH ×3 (06:43→17:39)
[2020-01-08] MEDS: INSULIN SLIDING SCALE (NOVOLOG) 1 VIAL SQ SCH ×4 (06:44→21:54)
[2020-01-08] MEDS: oxyCODONE HCL 5 MG TABLET PO PRN ×2 (07:09→13:33)
[2020-01-08] MEDS: FERROUS SO4 325 MG TABLET (FP) PO SCH ×2 (08:26→17:38)
[2020-01-08 08:46] LABS: HEMATOCRIT 33.7 % (32.4-45.2); HEMOGLOBIN 10.8 GM/dL (10.7-15.3); MCH 27.4 pg (25.7-33.7); MCHC 32.1 g/dl (32.0-36.0); MEAN CELL VOLUME 85.3 fl (80-96); PLATELET COUNT 250 K/MM3 (134-434); RBC 3.95 M/mm3 (3.60-5.2); RDW 21.5 % (11.6-15.6); WHITE BLOOD COUNT 5.7 K/mm3 (4.0-10.0)
[2020-01-08 09:09] LABS: BLOOD UREA NITROGEN 57.8 mg/dL (7-18); CALCIUM 9.1 mg/dL (8.5-10.1); CREATININE 1.2 mg/dL (0.55-1.3); POTASSIUM 4.7 mmol/L (3.5-5.1)
[2020-01-08] MEDS ORDERED: PT OWN MED DRAWER 7, Y5N ONE ×2 (10:41→21:11)
[2020-01-08] MEDS ORDERED: DEXTROSE 5%-WATER - 50 ML IVPB ONE (10:42)
[2020-01-08] MEDS ORDERED: cefTRIAXone SODIUM 1 GM VIAL ONE (10:42)
[2020-01-08] MEDS: GABAPENTIN 300 MG CAPSULE PO SCH (10:49)
[2020-01-08] MEDS: CARVEDILOL 12.5 MG TABLET (FP) PO SCH ×2 (10:49→21:39)
[2020-01-08] MEDS: DOCUSATE SODIUM 100 MG CAPSULE (FP) PO SCH (10:49)
[2020-01-08] MEDS: LEFLUNOMIDE 10 MG TABLET PO SCH (10:49)
[2020-01-08] MEDS: diazePAM 5 MG TABLET PO SCH (10:49)
[2020-01-08] MEDS: SACUBITRIL/VALSARTAN 24 MG-26 MG TABLET PO SCH ×2 (10:50→21:40)
[2020-01-08] MEDS: TORSEMIDE 100 MG TABLET PO SCH (10:50)
[2020-01-08] MEDS: CEFTRIAXONE 1 GM in DEXTROSE 5%-WATER - 50 ML IVPB SCH (10:50)
[2020-01-08] MEDS: PRAMIPEXOLE DIHYDROCHLORIDE 0.25 MG TABLET PO SCH ×2 (10:50→21:40)
[2020-01-08] MEDS: CYANOCOBALAMIN (VITAMIN B-12) 100 MCG TABLET PO SCH (10:51)
--- NOTE | 2020-01-08 12:00 | PN ---
Progress Note, Physician History of Present Illness: stable leg pain plan for neuro to see the patient - Current Medication List Current Medications: Active Medications Acetaminophen (Tylenol -) 650 mg PO Q6H PRN PRN Reason: PAIN LEVEL 1-5 OR FEVER Baclofen (Lioresal -) 10 mg PO Q8H PRN PRN Reason: MUSCLE SPASM Last Admin: 01/07/20 06:49 Dose: 10 mg Documented by: Carvedilol (Coreg -) 12.5 mg PO BID [facility] Last Admin: 01/08/20 10:49 Dose: 12.5 mg Documented by: Cyanocobalamin (Vitamin B12 -) 100 mcg PO DAILY [facility] Last Admin: 01/08/20 10:51 Dose: 100 mcg Documented by: Diazepam (Valium -) 10 mg PO DAILY [facility] Last Admin: 01/08/20 10:49 Dose: 10 mg Documented by: Docusate Sodium (Colace -) 100 mg PO DAILY [facility] Last Admin: 01/08/20 10:49 Dose: 100 mg Documented by: Ferrous Sulfate (Feosol -) 325 mg PO BIDWM [facility] Last Admin: 01/08/20 08:26 Dose: 325 mg Documented by: Gabapentin (Neurontin -) 600 mg PO DAILY [facility] Last Admin: 01/08/20 10:49 Dose: 600 mg Documented by: Ceftriaxone Sodium 1 gm/ (Dextrose) 50 mls @ 100 mls/hr IVPB DAILY [facility]; Protocol Last Admin: 01/08/20 10:50 Dose: 100 mls/hr Documented by: Insulin Aspart (Novolog Vial Sliding Scale -) 1 vial SQ ACHS [facility]; Protocol Last Admin: 01/08/20 06:44 Dose: 2 unit Documented by: Insulin Aspart (Novolog Vial) 3 units SQ TIDAC [facility]; Protocol Last Admin: 01/08/20 06:43 Dose: 3 units Documented by: Insulin Detemir (Levemir Vial) 10 units SQ HS [facility] Last Admin: 01/07/20 21:48 Dose: 10 units Documented by: Leflunomide (Arava -) 20 mg PO DAILY [facility] Last Admin: 01/08/20 10:49 Dose: 20 mg Documented by: Multi-Ingredient Lotion (Eucerin (Small Jar) -) 1 applic TP Q24H PRN PRN Reason: DRY SKIN Oxycodone HCl (Roxicodone -) 10 mg PO Q6H PRN PRN Reason: PAIN LEVEL 6-10 Last Admin: 01/08/20 07:09 Dose: 10 mg Documented by: Pramipexole Dihydrochloride (Mirapex -) 0.25 mg PO BID [facility] Last Admin: 01/08/20 10:50 Dose: 0.25 mg Documented by: Rivaroxaban (Xarelto) 20 mg PO DAILY@1800 [facility] Last Admin: 01/07/20 17:45 Dose: 20 mg Documented by: Sacubitril/Valsartan (Entresto 24 Mg-26 Mg Tablet) 1 tab PO BID [facility] Last Admin: 01/08/20 10:50 Dose: 1 tab Documented by: Torsemide (Demadex -) 50 mg PO DAILY [facility] Last Admin: 01/08/20 10:50 Dose: 50 mg Documented by: Zolpidem Tartrate (Ambien -) 5 mg PO HS PRN PRN Reason: INSOMNIA Last Admin: 01/08/20 02:38 Dose: 5 mg Documented by: - Objective Vital Signs: Vital Signs Temperature 97.6 F 01/08/20 06:48 Pulse Rate 74 01/08/20 06:48 Respiratory Rate 18 01/08/20 06:48 Blood Pressure 131/74 01/08/20 06:48 O2 Sat by Pulse Oximetry (%) 94 L 01/07/20 21:00 Constitutional: Yes: No Distress, Calm Cardiovascular: Yes: S1, S2 Respiratory: Yes: Regular, CTA Bilaterally Gastrointestinal: Yes: Normal Bowel Sounds, Soft Musculoskeletal: Yes: WNL Extremities: Yes: Other (foot drop) Neurological: Yes: Alert, Oriented Psychiatric: Yes: Alert, Oriented Labs: CBC, BMP 01/08/20 07:20 01/08/20 07:20 INR, PTT INR 1.34 (0.83-1.09) H 12/26/19 14:20 Assessment/Plan 74 year old lady with history of CHF, RA, DM 2, HTN, Hx DVT/PE, a fib (on Xarelto), multiple spine surgeries, s/p L4/5 laminectomy then L5/S1 seroma with recent epidural abscess drainage s/p I and D - sent home on IV Rocephin via PICC 12/03 now returns with SOB , she was found to have acute CHF exa 1- Acute on chronic systolic CHF. euvolemic now. 2- H/o Epidural abscess s/p I&D. wound vac 3- Paroxysmal Atrial Fibrillation 4- Hx PE/DVT s/p IVC filter 5. DM 2: cont SSI. 6. RA 7- Normocytic Anemia - 8. NICHOLE all cx reports noted patient has received more than 5 weeks of iv abx i would suggest that the patient can be changed to oral now can switch to augmentin for one week wound care monitor drainage rest as per the team follow fungal cx though if the fungal cx are positive then will decide
--- NOTE | 2020-01-08 13:41 | PN ---
Progress Note (short form) - Note Progress Note: Chief Complaint: leg swelling, sob History of Present Illness: no edema, chest pain, palps, sob, dizzy Current Medications Generic Name Dose Route Start Last Admin Trade Name Freq PRN Reason Stop Dose Admin Acetaminophen 650 mg 01/04/20 15:55 Tylenol - PO Q6H PRN PAIN LEVEL 1-5 OR FEVER Amoxicillin/Clavulanate Potassium 1 tab 01/10/20 08:00 Augmentin - 500mg Tablet PO BID@0800,1730 [facility] Baclofen 10 mg 01/04/20 15:55 01/07/20 06:49 Lioresal - PO 10 mg Q8H PRN Administration MUSCLE SPASM Carvedilol 12.5 mg 01/04/20 22:00 01/08/20 10:49 Coreg - PO 12.5 mg BID [facility] Administration Cyanocobalamin 100 mcg 01/05/20 16:45 01/08/20 10:51 Vitamin B12 - PO 100 mcg DAILY [facility] Administration Diazepam 10 mg 01/05/20 10:00 01/08/20 10:49 Valium - PO 10 mg DAILY [facility] Administration Docusate Sodium 100 mg 01/03/20 15:15 01/08/20 10:49 Colace - PO 100 mg DAILY [facility] Administration Ferrous Sulfate 325 mg 01/04/20 17:30 01/08/20 08:26 Feosol - PO 325 mg BIDWM [facility] Administration Gabapentin 600 mg 01/05/20 10:00 01/08/20 10:49 Neurontin - PO 600 mg DAILY [facility] Administration Insulin Aspart 1 vial 01/04/20 16:30 01/08/20 13:39 Novolog Vial Sliding Scale - SQ 4 unit ACHS [facility] Administration Protocol Insulin Aspart 3 units 01/07/20 16:30 01/08/20 13:39 Novolog Vial SQ 3 units TIDAC [facility] Administration Protocol Insulin Detemir 10 units 01/07/20 22:00 01/07/20 21:48 Levemir Vial SQ 10 units HS [facility] Administration Leflunomide 20 mg 01/05/20 10:00 01/08/20 10:49 Arava - PO 20 mg DAILY [facility] Administration Multi-Ingredient Lotion 1 applic 01/04/20 15:55 Eucerin (Small Jar) - TP Q24H PRN DRY SKIN Oxycodone HCl 10 mg 01/04/20 15:55 01/08/20 13:33 Roxicodone - PO 10 mg Q6H PRN Administration PAIN LEVEL 6-10 Pramipexole Dihydrochloride 0.25 mg 01/04/20 22:00 01/08/20 10:50 Mirapex - PO 0.25 mg BID [facility] Administration Rivaroxaban 20 mg 01/04/20 18:00 01/07/20 17:45 Xarelto PO 20 mg DAILY@1800 [facility] Administration Sacubitril/Valsartan 1 tab 01/04/20 22:00 01/08/20 10:50 Entresto 24 Mg-26 Mg Tablet PO 1 tab BID [facility] Administration Torsemide 50 mg 01/05/20 10:00 01/08/20 10:50 Demadex - PO 50 mg DAILY [facility] Administration Zolpidem Tartrate 5 mg 01/04/20 15:55 01/08/20 02:38 Ambien - PO 5 mg HS PRN Administration INSOMNIA Vital Signs Period Temp Pulse Resp BP Sys/Marcelo Pulse Ox Last 24 Hr 97.4 F-98.3 F 74-85 18-20 102-131/46-74 94 Constitutional: Yes: Well Nourished, No Distress, Calm Eyes: No: Ptosis, Sclera Icterus Neck: Yes: Supple Cardiovascular: Yes: Regular Rate and Rhythm Respiratory: Yes: Regular. 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 diabetic (uncontrolled glycemic status, does not f/u with PMD despite repeatedly advised to do so) -EF now moderately reduced (35-40%, global), last echo here 2018 was 50-55%. -has not had significant burden of AF, doubt tachy-CMP - in sinus on tele here -improved with IV lasix, then placed on po torsemide, continue torsemide. -Cont Coreg -low dose DORENE held during recent admit due to mild hyperkalemia and soft BPs (was on lisinopril 5 qd then). given current EF, pt has mortality benefit from Entresto. K normal, BP currently mostly > 110. - cont 24-26 BID dose here Prolonged QTC: -F/u ECGs -Keep K+ and Mg2+ normalized -Avoid / minimize QT prolonging meds VTach: -NSVT on tele -cont bb -replete K/Mg to 4/ PAF: -Cont Coreg and Xarelto -Holter to assess rate control DVT/PE with history of filter: -cont with AC NICHOLE: -not treated, pt has not followed up for cpap therapy cardiac hallman stable
[2020-01-08 15:47] VITALS: BMI 32.9
--- NOTE | 2020-01-08 15:48 | PN ---
Physical Exam: SUBJECTIVE: Patient seen and examined. RLE neuropathy persists. Transitioned to PO abx OBJECTIVE: Vital Signs Period Temp Pulse Resp BP Sys/Marcelo Pulse Ox Last 24 Hr 97.6 F-98.3 F 74-86 18-20 103-131/57-74 94-94 GENERAL: The patient is awake, alert, and fully oriented, in no acute distress. HEENT: NCAT. Sclera clear. MMM. LUNGS: Breath sounds equal, clear to auscultation bilaterally, no wheezes, no crackles. HEART: Regular rate and rhythm, S1, S2 without murmur, rub or gallop. ABDOMEN: Soft, nontender, nondistended, normoactive bowel sounds, no guarding EXTREMITIES: 2+ pulses, warm, well-perfused, no edema. Hyperalgesia RLE from R knee to R foot. 1+ DP RLE. R foot drop. Back: abscess w/ jostin drain in place draining serous fluid SKIN: Warm, dry, normal turgor Laboratory Results - last 24 hr 01/07/20 01/07/20 01/08/20 17:49 21:03 06:42 WBC RBC Hgb Hct MCV MCH MCHC RDW Plt Count MPV Sodium Potassium Chloride Carbon Dioxide Anion Gap BUN Creatinine Est GFR (CKD-EPI)AfAm Est GFR (CKD-EPI)NonAf POC Glucometer 144 122 159 Random Glucose Calcium 01/08/20 01/08/20 01/08/20 07:20 07:20 13:38 WBC 5.7 RBC 3.95 Hgb 10.8 Hct 33.7 MCV 85.3 MCH 27.4 MCHC 32.1 RDW 21.5 H Plt Count 250 MPV 8.0 Sodium 138 Potassium 4.7 Chloride 102 Carbon Dioxide 28 Anion Gap 7 L BUN 57.8 H Creatinine 1.2 Est GFR (CKD-EPI)AfAm 51.92 Est GFR (CKD-EPI)NonAf 44.80 POC Glucometer 227 Random Glucose 155 H Calcium 9.1 Active Medications Generic Name Dose Route Start Last Admin Trade Name Freq PRN Reason Stop Dose Admin Acetaminophen 650 mg 01/04/20 15:55 Tylenol - PO Q6H PRN PAIN LEVEL 1-5 OR FEVER Amoxicillin/Clavulanate Potassium 1 tab 01/10/20 08:00 Augmentin - 500mg Tablet PO BID@0800,1730 [facility] Baclofen 10 mg 01/04/20 15:55 01/07/20 06:49 Lioresal - PO 10 mg Q8H PRN Administration MUSCLE SPASM Carvedilol 12.5 mg 01/04/20 22:00 01/08/20 10:49 Coreg - PO 12.5 mg BID [facility] Administration Cyanocobalamin 100 mcg 01/05/20 16:45 01/08/20 10:51 Vitamin B12 - PO 100 mcg DAILY [facility] Administration Diazepam 10 mg 01/05/20 10:00 01/08/20 10:49 Valium - PO 10 mg DAILY [facility] Administration Docusate Sodium 100 mg 01/03/20 15:15 01/08/20 10:49 Colace - PO 100 mg DAILY [facility] Administration Ferrous Sulfate 325 mg 01/04/20 17:30 01/08/20 08:26 Feosol - PO 325 mg BIDWM [facility] Administration Gabapentin 600 mg 01/05/20 10:00 01/08/20 10:49 Neurontin - PO 600 mg DAILY [facility] Administration Insulin Aspart 1 vial 01/04/20 16:30 01/08/20 13:39 Novolog Vial Sliding Scale - SQ 4 unit ACHS [facility] Administration Protocol Insulin Aspart 3 units 01/07/20 16:30 01/08/20 13:39 Novolog Vial SQ 3 units TIDAC [facility] Administration Protocol Insulin Detemir 10 units 01/07/20 22:00 01/07/20 21:48 Levemir Vial SQ 10 units HS [facility] Administration Leflunomide 20 mg 01/05/20 10:00 01/08/20 10:49 Arava - PO 20 mg DAILY [facility] Administration Multi-Ingredient Lotion 1 applic 01/04/20 15:55 Eucerin (Small Jar) - TP Q24H PRN DRY SKIN Oxycodone HCl 10 mg 01/04/20 15:55 01/08/20 13:33 Roxicodone - PO 10 mg Q6H PRN Administration PAIN LEVEL 6-10 Pramipexole Dihydrochloride 0.25 mg 01/04/20 22:00 01/08/20 10:50 Mirapex - PO 0.25 mg BID [facility] Administration Rivaroxaban 20 mg 01/04/20 18:00 01/07/20 17:45 Xarelto PO 20 mg DAILY@1800 [facility] Administration Sacubitril/Valsartan 1 tab 01/04/20 22:00 01/08/20 10:50 Entresto 24 Mg-26 Mg Tablet PO 1 tab BID [facility] Administration Torsemide 50 mg 01/05/20 10:00 01/08/20 10:50 Demadex - PO 50 mg DAILY [facility] Administration Zolpidem Tartrate 5 mg 01/04/20 15:55 01/08/20 02:38 Ambien - PO 5 mg HS PRN Administration INSOMNIA ASSESSMENT/PLAN: 74 y.o. F PMH CHF (EF 35-40%), RA, DM 2, HTN, Hx DVT/PE, a fib (on Xarelto), known non-ischemic cardiomyopathy, multiple spine surgeries, s/p L4/5 laminectomy then L5/S1 seroma with recent epidural abscess drainage s/p I and D, complex wound closure and wound vac placement 11/26-sent home on IV Rocephin via PICC 11/29 who returned w/ shortness of breath for 3 days admitted for CHF exacerbation #Acute on chronic systolic-CHF exacerbation -COVID negative swabbed 12/25 -CXR 12/25: mild b/l interstitial markings -continue diuresis (torsemide) -daily weights, monitor BUN/Cr -echo 12/26: LV sys function moderately reduced. EF 35-50%; moderate global hypokinesis of LV. LA dilation. Mod MR, trace TR. (previous Echo in 2017- w/ EF 55%) -continue coreg 12.5mg PO BID -Entresto 24-26 BID -cardio following -strict Is & O's #ELIZABETH -Cr 1.2 today, stable -hold torsemide & entresto if worsening -trend Cr #Epidural Abscess -s/p I and D; discharged 12/03 on 4 week course of IV ceftriaxone via PICC -s/p wound vac, now removed, JOSTIN drain placed 01/03 -Dr. Borjas following: no further surgical intervention d/t risk of septic meningitis. maintain pigtail catheter. Can consider 2nd opinion w/ neurosurg -pain control: Oxy 10mg Q6 PRN, tylenol -PICC line was removed by pt, receiving IV abx via peripheral IV (ceftriaxone); (was sent home 12/03 w/ PICC and required 6 weeks outpatient abx; completed ~3.5 weeks before this admission) -now transitioned to PO augmentin x 7 days (to be completed 01/14/2020) -wound abscess cxs negative -ID following- Dr. Krueger -blood cx negative x2 #Peripheral neuropathy -continue gabapentin; consider switch to cymbalta if no improvement -neuro consulted for poss EMG #Paroxysmal Atrial Fibrillation -continue Coreg -Xarelto 20mg daily -Holter as per cardio to assess rate control #Hx PE/DVT -c/w Xarelto #DM -HbA1c 9.0% -BGMs, ISS ACHS -hold home oral agents #RA -c/w Leflunomide #Normocytic Anemia -2/2 to anemia of chronic disease -Iron/Ferritin/B12/Folate levels- consistent with above -continue feosol #NICHOLE not treated, pt has not followed up for cpap therapy #DVT Ppx on Xarelto #FEN -no standing fluids -monitor lytes -Diabetic diet Dispo: neuro eval patient would like to go home w/ vns services, does not wish to go to snf Visit type - Emergency Visit Emergency Visit: No - New Patient This patient is new to me today: No - Critical Care Critical Care patient: No ATTENDING PHYSICIAN STATEMENT I saw and evaluated the patient. I reviewed the resident's note and discussed the case with the resident. I agree with the resident's findings and plan as documented. SUBJECTIVE: OBJECTIVE: ASSESSMENT AND PLAN:
[2020-01-08] MEDS: RIVAROXABAN 20 MG TABLET PO SCH (17:38)
--- NOTE | 2020-01-08 18:14 | CONSULT ---
Consult - text type - Consultation Consultation Note: NEUROLOGY CONSULTATION is greatly appreciated: This 74 yo RH lives alone. PMH of OA, RA, HTN, DM, ASHD, DVT, PE and IVC filter. Seen by me in 2009 for LBP and pain in both legs at night. Since then she is s/p 7 LS procedures most recently for drainage of epidural abscess. Chronic right footdrop. 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 Still with right hip pain with weight baring. JESSICA: Obese. Neg SLR. Drain in LS post-up. Right leg foreshortened. Deforming arthropathy both hands. NEURO: Depressed, withdrawn, crying. MS/Speech: Normal CN II-XII: Normal Motor: No drift or tremor. Isolated weakness of right ankle DF/Inv/Ever (0/5). R ankle PF (4/5) Areflexic in legs Coord: No FTN dystaxia Sensory: Reduced in both feet Gait: Stands with assistance. Takes a few steps with walker. IMP: 1. Severe right L5 radiculopathy 2. s/p drainage Lumbar epidural abscess. 3. Right Protrusio Acetabuli. 4. Depression SUGGEST: Continue drainage, antibiotics and pain meds. PT for gait with walker. If patient remains depressed after D/C of narcotics, consider antidepressant Rx. Neuro f/u as out patient. Thank you very much, Sreekanth Almanzar MD
--- NOTE | 2020-01-08 18:58 | PN ---
Teaching Attending Note Name of Resident: Tati Mcgregor ATTENDING PHYSICIAN STATEMENT I saw and evaluated the patient. I reviewed the resident's note and discussed the case with the resident. I agree with the resident's findings and plan as documented. SUBJECTIVE: Complains of intermittent shooting pains down RLE. No fever/chills. OBJECTIVE: Afebrile, Hemodynamically Stable Last Vital Signs Temp Pulse Resp BP Pulse Ox 98 F 78 20 103/58 L 94 L 01/08/20 14:00 01/08/20 14:00 01/08/20 14:01/08/20 14:00 01/08/20 09:00 HEENT - atraumatic, Normocephalic. Heart - S1, S2, Lungs - clear to auscultation Abdomen - high BMI, soft, non-tender. Bowel Sounds normal. Extremities - no edema, no calf tenderness. Neuro - AAO x 3. Partial R foot drop. RLE weakness (worsening over months as per patient) MS - DASH drain from back wound with serous liquid Laboratory Results - last 24 hr 01/07/20 01/08/20 01/08/20 21:03 06:42 07:20 WBC 5.7 RBC 3.95 Hgb 10.8 Hct 33.7 MCV 85.3 MCH 27.4 MCHC 32.1 RDW 21.5 H Plt Count 250 MPV 8.0 Sodium Potassium Chloride Carbon Dioxide Anion Gap BUN Creatinine Est GFR (CKD-EPI)AfAm Est GFR (CKD-EPI)NonAf POC Glucometer 122 159 Random Glucose Calcium 01/08/20 01/08/20 01/08/20 07:20 13:38 17:18 WBC RBC Hgb Hct MCV MCH MCHC RDW Plt Count MPV Sodium 138 Potassium 4.7 Chloride 102 Carbon Dioxide 28 Anion Gap 7 L BUN 57.8 H Creatinine 1.2 Est GFR (CKD-EPI)AfAm 51.92 Est GFR (CKD-EPI)NonAf 44.80 POC Glucometer 227 129 Random Glucose 155 H Calcium 9.1 Current Medications Generic Name Dose Route Start Last Admin Trade Name Freq PRN Reason Stop Dose Admin Acetaminophen 650 mg 01/04/20 15:55 Tylenol - PO Q6H PRN PAIN LEVEL 1-5 OR FEVER Amoxicillin/Clavulanate Potassium 1 tab 01/10/20 08:00 Augmentin - 500mg Tablet PO BID@0800,1730 [facility] Baclofen 10 mg 01/04/20 15:55 01/07/20 06:49 Lioresal - PO 10 mg Q8H PRN Administration MUSCLE SPASM Carvedilol 12.5 mg 01/04/20 22:00 01/08/20 10:49 Coreg - PO 12.5 mg BID LISA Administration Cyanocobalamin 100 mcg 01/05/20 16:45 01/08/20 10:51 Vitamin B12 - PO 100 mcg DAILY LISA Administration Diazepam 10 mg 01/05/20 10:00 01/08/20 10:49 Valium - PO 10 mg DAILY LISA Administration Docusate Sodium 100 mg 01/03/20 15:15 01/08/20 10:49 Colace - PO 100 mg DAILY [facility] Administration Ferrous Sulfate 325 mg 01/04/20 17:30 01/08/20 17:38 Feosol - PO 325 mg BIDWM LISA Administration Gabapentin 600 mg 01/05/20 10:00 01/08/20 10:49 Neurontin - PO 600 mg DAILY [facility] Administration Insulin Aspart 1 vial 01/04/20 16:30 01/08/20 17:40 Novolog Vial Sliding Scale - SQ Not Given ACHS [facility] Protocol Insulin Aspart 3 units 01/07/20 16:30 01/08/20 17:39 Novolog Vial SQ 3 units TIDAC [facility] Administration Protocol Insulin Detemir 10 units 01/07/20 22:00 01/07/20 21:48 Levemir Vial SQ 10 units HS [facility] Administration Leflunomide 20 mg 01/05/20 10:00 01/08/20 10:49 Arava - PO 20 mg DAILY [facility] Administration Multi-Ingredient Lotion 1 applic 01/04/20 15:55 Eucerin (Small Jar) - TP Q24H PRN DRY SKIN Pramipexole Dihydrochloride 0.25 mg 01/04/20 22:00 01/08/20 10:50 Mirapex - PO 0.25 mg BID LISA Administration Rivaroxaban 20 mg 01/04/20 18:00 01/08/20 17:38 Xarelto PO 20 mg DAILY@1800 [facility] Administration Sacubitril/Valsartan 1 tab 01/04/20 22:00 01/08/20 10:50 Entresto 24 Mg-26 Mg Tablet PO 1 tab BID [facility] Administration Torsemide 50 mg 01/05/20 10:00 01/08/20 10:50 Demadex - PO 50 mg DAILY LISA Administration Home Medications Medication Instructions Recorded Insulin Lispro Protamin/Lispro 22 unit SQ BIDAC 12/15/15 [Humalog Mix 75-25 Kwikpen] Zolpidem Tartrate [Ambien] 10 mg PO HS PRN 06/01/17 Leflunomide [Arava] 20 mg PO DAILY 07/26/18 Torsemide 50 mg PO DAILY 07/26/18 Baclofen 10 mg PO PRN PRN 07/16/19 Rivaroxaban [Xarelto -] 20 mg PO DAILY #30 tablet 10/03/19 Carvedilol [Coreg -] 12.5 mg PO BID 11/23/19 Gabapentin [Neurontin -] 600 mg PO TID 11/23/19 Diazepam 10 mg PO DAILY 12/28/19 Oxycodone HCl/Acetaminophen 1 each PO QID 12/28/19 [Percocet 10-325 mg Tablet] Pramipexole Di-HCl [Mirapex] 0.25 mg PO BID 12/28/19 Ceftriaxone Sodium [Ceftriaxone] 1 gm IV DAILY #10 vial.port 01/02/20 Sacubitril/Valsartan [Entresto 24 1 each PO BID #60 tablet 01/02/20 mg-26 mg Tablet] ASSESSMENT AND PLAN: 74 year old female with history of Chronic Systolic CHF, RA, DM 2, HTN, Hx DVT/PE, Atrial Fibrillation (on Xarelto), multiple spine surgeries, s/p L4/5 laminectomy then L5/S1 seroma with recent epidural abscess drainage s/p I and D - sent home on IV Rocephin via PICC 12/03 returns on this occasion with SOB, worse on exertion. No cough/sputum/CP/hemoptysis. No fever/chills. 1. Acute on Chronic Systolic CHF decompensation/known non-ischemic cardiomy opathy Echo - systolic CHF, EF 35-40%, moderate LV hypokinesis Responded to IV Lasix and Metolazone diuresis - now resumed on oral Torsemide. Started on Entresto. CHF exacerbation resolved. Cardiology to continue following as out-patient. 2. ELIZABETH sec to overdiursis - resolved. Creat stable. 3. Epidural Abscess s/p I/D 11/[address] Borjas, discharged on 12/04/19 on 6 weeks Cefriaxone, now complete. Afebrile, Hemodynamically Stable, no leukocytosis. Blood Cx - Staph epi 1 bottle, likely contaminant, repeat Blood cx neg x 2. DASH drain placed by IR 01/03 with ongoing serous drainage. No further Abx as per ID. Further management as per Dr. Borjas 4. RLE pain/foot drop secondary to post-spinal surgical sequelae/L5 radiculopathy Seen by Neurology For PT Rehab/SNF suggested to patient who declines. Chronically on Valium/Oxycodone at home 5. Paroxysmal Atrial Fibrillation - continue Coreg and Xarelto. 6. Hx PE/DVT s/p IVC Filter - on Xarelto 7. DM 2 - A1c 9.0. Maintain on sliding scale during inpatient stay. 8. Hx RA - on Leflunomide. 9, Chronic Anemia, multifactorial - B12 352, Elevated MMA. Iron Sat 7, Folate 11, Ferritin 45. Iron and B12 supplemented. Will need out-patient Iron Defi ciency work-up. 10. NICHOLE - needs out-patient follow up for CPAP machine DVT Px - on Xarelto. Patient at this point is medically stable - no acute medical issues. Dr. Borjas informed that service provider will be changed from 01/09/20 to him given active epidural DASH drain and ongoing RLE pain/weakness/radiculopathy sequelae s/p spinal surgery/epidural abscess I and D. Please feel free to recall Medicine if any new or acute medical issues arise.
[2020-01-08] MEDS ORDERED: INSULIN (NOVOLOG) ASPART 100 UNITS/ML 10ML VIAL ONE (21:12)
[2020-01-08] MEDS: BACLOFEN 10 MG TABLET (FP) PO PRN (21:39)
[2020-01-08] MEDS: INSULIN (LEVEMIR) 100 UNITS/ML UNITS SQ SCH (21:41)
[2020-01-09] MEDS ORDERED: INSULIN (NOVOLOG) ASPART 100 UNITS/ML 10ML VIAL ONE (05:41)
[2020-01-09] MEDS: INSULIN (NOVOLOG) ASPART 100 UNITS/ML 10ML VIAL SQ SCH ×3 (06:19→16:19)
[2020-01-09] MEDS: INSULIN SLIDING SCALE (NOVOLOG) 1 VIAL SQ SCH ×4 (06:20→22:33)
[2020-01-09] MEDS ORDERED: PT OWN MED DRAWER 7, Y5N ONE (09:05)
[2020-01-09] MEDS: CARVEDILOL 12.5 MG TABLET (FP) PO SCH ×2 (09:10→22:31)
[2020-01-09] MEDS: FERROUS SO4 325 MG TABLET (FP) PO SCH ×2 (09:11→17:17)
[2020-01-09] MEDS: CYANOCOBALAMIN (VITAMIN B-12) 100 MCG TABLET PO SCH (09:11)
[2020-01-09] MEDS: diazePAM 5 MG TABLET PO SCH (09:11)
[2020-01-09] MEDS: DOCUSATE SODIUM 100 MG CAPSULE (FP) PO SCH (09:11)
[2020-01-09] MEDS: GABAPENTIN 300 MG CAPSULE PO SCH (09:11)
[2020-01-09] MEDS: PRAMIPEXOLE DIHYDROCHLORIDE 0.25 MG TABLET PO SCH ×2 (09:12→22:31)
[2020-01-09] MEDS: LEFLUNOMIDE 10 MG TABLET PO SCH (09:12)
[2020-01-09] MEDS: TORSEMIDE 100 MG TABLET PO SCH (09:12)
[2020-01-09] MEDS: SACUBITRIL/VALSARTAN 24 MG-26 MG TABLET PO SCH ×2 (09:13→22:31)
[2020-01-09] MEDS ORDERED: AMOX TR/POT CLAV 500MG/125MG TABLETS (FP) PO SCH (09:21)
--- NOTE | 2020-01-09 10:33 | PN ---
Progress Note, Physician History of Present Illness: stable leg pain still draining - Current Medication List Current Medications: Active Medications Acetaminophen (Tylenol -) 650 mg PO Q6H PRN PRN Reason: PAIN LEVEL 1-5 OR FEVER Baclofen (Lioresal -) 10 mg PO Q8H PRN PRN Reason: MUSCLE SPASM Last Admin: 01/08/20 21:39 Dose: 10 mg Documented by: Carvedilol (Coreg -) 12.5 mg PO BID [facility] Last Admin: 01/09/20 09:10 Dose: 12.5 mg Documented by: Cyanocobalamin (Vitamin B12 -) 100 mcg PO DAILY [facility] Last Admin: 01/09/20 09:11 Dose: 100 mcg Documented by: Diazepam (Valium -) 10 mg PO DAILY [facility] Last Admin: 01/09/20 09:11 Dose: 10 mg Documented by: Docusate Sodium (Colace -) 100 mg PO DAILY [facility] Last Admin: 01/09/20 09:11 Dose: 100 mg Documented by: Ferrous Sulfate (Feosol -) 325 mg PO BIDWM [facility] Last Admin: 01/09/20 09:11 Dose: 325 mg Documented by: Gabapentin (Neurontin -) 600 mg PO DAILY [facility] Last Admin: 01/09/20 09:11 Dose: 600 mg Documented by: Insulin Aspart (Novolog Vial Sliding Scale -) 1 vial SQ ACHS [facility]; Protocol Last Admin: 01/09/20 06:20 Dose: 2 unit Documented by: Insulin Aspart (Novolog Vial) 3 units SQ TIDAC [facility]; Protocol Last Admin: 01/09/20 06:19 Dose: 3 units Documented by: Insulin Detemir (Levemir Vial) 10 units SQ HS [facility] Last Admin: 01/08/20 21:41 Dose: 10 units Documented by: Leflunomide (Arava -) 20 mg PO DAILY [facility] Last Admin: 01/09/20 09:12 Dose: 20 mg Documented by: Multi-Ingredient Lotion (Eucerin (Small Jar) -) 1 applic TP Q24H PRN PRN Reason: DRY SKIN Pramipexole Dihydrochloride (Mirapex -) 0.25 mg PO BID [facility] Last Admin: 01/09/20 09:12 Dose: 0.25 mg Documented by: Rivaroxaban (Xarelto) 20 mg PO DAILY@1800 [facility] Last Admin: 01/08/20 17:38 Dose: 20 mg Documented by: Sacubitril/Valsartan (Entresto 24 Mg-26 Mg Tablet) 1 tab PO BID [facility] Last Admin: 01/09/20 09:13 Dose: 1 tab Documented by: Torsemide (Demadex -) 50 mg PO DAILY [facility] Last Admin: 01/09/20 09:12 Dose: 50 mg Documented by: - Objective Vital Signs: Vital Signs Temperature 97.4 F L 01/09/20 09:00 Pulse Rate 76 01/09/20 09:00 Respiratory Rate 20 01/09/20 09:00 Blood Pressure 121/55 L 01/09/20 09:00 O2 Sat by Pulse Oximetry (%) 94 L 01/08/20 09:00 Constitutional: Yes: No Distress, Calm Cardiovascular: Yes: S1, S2 Respiratory: Yes: Regular, CTA Bilaterally Gastrointestinal: Yes: Normal Bowel Sounds, Soft Musculoskeletal: Yes: WNL Extremities: Yes: WNL Neurological: Yes: Alert, Oriented Psychiatric: Yes: Alert, Oriented Labs: CBC, BMP 01/08/20 07:20 01/08/20 07:20 INR, PTT INR 1.34 (0.83-1.09) H 12/26/19 14:20 Assessment/Plan 74 year old lady with history of CHF, RA, DM 2, HTN, Hx DVT/PE, a fib (on Xa relto), multiple spine surgeries, s/p L4/5 laminectomy then L5/S1 seroma with recent epidural abscess drainage s/p I and D - sent home on IV Rocephin via PICC 12/03 now returns with SOB , she was found to have acute CHF exa 1- Acute on chronic systolic CHF. euvolemic now. 2- H/o Epidural abscess s/p I&D. wound vac 3- Paroxysmal Atrial Fibrillation 4- Hx PE/DVT s/p IVC filter 5. DM 2: cont SSI. 6. RA 7- Normocytic Anemia - 8. NICHOLE all cx reports noted patient has received more than 5 weeks of iv abx wound care monitor drainage rest as per the team follow fungal cx though if the fungal cx are positive then will decide
--- NOTE | 2020-01-09 12:07 | PN ---
Progress Note (short form) - Note Progress Note: 74F well known to [facility]opa[facility] service now admitted w/CHF exacerbation. Pt. has chronic, draining lumbar spine wound, which is not the cause for admission. This is a chronic, stable condition. Pt. admitted due to SOB and cardiopulmonary concern. A/P: 74F w/draining chronic lumbar wound (under control) sent to [facility] for admission and management of CHF exacerbation. -Maintain indwelling lumbar spine pigtail catheter to continuously drain effective space; patient can be discharged home with nursing services for drain and skin care; removal of the drain will be coordinated between our service and the [facility] IR team once the drainage has ceased. -Surgery not indicated at this time; exposure of the thecal sac and nerve roots (which were previously thoroughly surgically decompressed) in the setting of a chronic, draining wound, could result in potentially fatal septic meningitis. -Continue use of heel-offloading AFO splint for use in bed and functional AFO splint for ambulation. -f/u AFB/fungal specimen results; recommend chronic, suppressive oral antibiotic therapy if AFB/fungal negative. -Care per primary medical hospitalist team, neurology team, cardiology team, and ID team. -Pain medication: recommend oxyocodone 10mg PO q6h PRN pain (patient has multiple orthopaedic problems). -Dry dressing changes as needed to prevent stool from tracking up wound. -Attentive perineal hygiene. -DVT PPx: -Mechanical: MARLON's, SCD's. -Chemical: Xarelto qD. -f/u AM labs. -Incentive spirometry. -PT/OT/Rehab, OOB at least once daily, ideally 2-3 times daily. -WBAT B/L LE. -Advance diet as tolerated. -No heavy lifting (>5 lbs), bending or twisting. -B/L UE & LE NV checks. -Dispo: recommend discharge to [facility] for several weeks for rehabilitation and strengthening; drain and skin care; will have patient f/u with [facility] via telehealth and in office as needed. -Will follow. -Plan discussed with and agreed upon with primary treating orthopaedic surgeon, Sreekanth Borjas MD. Luis Borjas MD (Orthopaedic Surgery).
--- NOTE | 2020-01-09 14:04 | PN ---
Progress Note (short form) - Note Progress Note: Chief Complaint: leg swelling, sob History of Present Illness: no edema, chest pain, palps, sob, dizzy Current Medications Generic Name Dose Route Start Last Admin Trade Name Freq PRN Reason Stop Dose Admin Acetaminophen 650 mg 01/04/20 15:55 Tylenol - PO Q6H PRN PAIN LEVEL 1-5 OR FEVER Baclofen 10 mg 01/04/20 15:55 01/08/20 21:39 Lioresal - PO 10 mg Q8H PRN Administration MUSCLE SPASM Carvedilol 12.5 mg 01/04/20 22:00 01/09/20 09:10 Coreg - PO 12.5 mg BID LISA Administration Cyanocobalamin 1,000 mcg 01/09/20 14:00 Vitamin B12 - PO DAILY LISA Diazepam 10 mg 01/05/20 10:00 01/09/20 09:11 Valium - PO 10 mg DAILY LISA Administration Docusate Sodium 100 mg 01/03/20 15:15 01/09/20 09:11 Colace - PO 100 mg DAILY LISA Administration Ferrous Sulfate 325 mg 01/04/20 17:30 01/09/20 09:11 Feosol - PO 325 mg BIDWM LISA Administration Gabapentin 600 mg 01/05/20 10:00 01/09/20 09:11 Neurontin - PO 600 mg DAILY LISA Administration Insulin Aspart 1 vial 01/04/20 16:30 01/09/20 11:43 Novolog Vial Sliding Scale - SQ 2 unit ACHS LISA Administration Protocol Insulin Aspart 3 units 01/09/20 16:30 Novolog Vial SQ TIDAC [facility] Insulin Detemir 10 units 01/07/20 22:00 01/08/20 21:41 Levemir Vial SQ 10 units HS LISA Administration Leflunomide 20 mg 01/05/20 10:00 01/09/20 09:12 Arava - PO 20 mg DAILY LISA Administration Multi-Ingredient Lotion 1 applic 01/04/20 15:55 Eucerin (Small Jar) - TP Q24H PRN DRY SKIN Pramipexole Dihydrochloride 0.25 mg 01/04/20 22:00 01/09/20 09:12 Mirapex - PO 0.25 mg BID LISA Administration Rivaroxaban 20 mg 01/04/20 18:00 01/08/20 17:38 Xarelto PO 20 mg DAILY@1800 LISA Administration Sacubitril/Valsartan 1 tab 01/04/20 22:00 01/09/20 09:13 Entresto 24 Mg-26 Mg Tablet PO 1 tab BID LISA Administration Torsemide 50 mg 01/05/20 10:00 01/09/20 09:12 Demadex - PO 50 mg DAILY LISA Administration Vital Signs Period Temp Pulse Resp BP Sys/Marcelo Pulse Ox Last 24 Hr 97.4 F-97.8 F 76-81 20-20 107-121/50-55 94 Constitutional: Yes: Well Nourished, No Distress, Calm Eyes: No: Ptosis, Sclera Icterus Neck: Yes: Supple Cardiovascular: Yes: Regular Rate and Rhythm Respiratory: Yes: Regular. 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 diabetic (uncontrolled glycemic status, does not f/u with PMD despite repeatedly advised to do so) -EF now moderately reduced (35-40%, global), last echo here 2018 was 50-55%. -has not had significant burden of AF, doubt tachy-CMP - in sinus on tele here -improved with IV lasix, then placed on po torsemide, continue torsemide. -Cont Coreg -low dose DORENE held during recent admit due to mild hyperkalemia and soft BPs (was on lisinopril 5 qd then). given current EF, pt has mortality benefit from Entresto. K normal, BP currently mostly > 110. - cont 24-26 BID dose here Prolonged QTC: -F/u ECGs -Keep K+ and Mg2+ normalized -Avoid / minimize QT prolonging meds VTach: -NSVT on tele -cont bb -replete K/Mg to 4/2 PAF: -Cont Coreg and Xarelto -Holter to assess rate control DVT/PE with history of filter: -cont with AC NICHOLE: -not treated, pt has not followed up for cpap therapy cardiac hallman stable
[2020-01-09] MEDS: CYANOCOBALAMIN 1,000 MCG TABLET (FP) PO SCH (14:48)
[2020-01-09] MEDS: BACLOFEN 10 MG TABLET (FP) PO PRN (16:19)
[2020-01-09] MEDS: ACETAMINOPHEN 325 MG TABLET (FP) PO PRN (16:19)
[2020-01-09] MEDS: RIVAROXABAN 20 MG TABLET PO SCH (17:16)
[2020-01-09] MEDS ORDERED: oxyCODONE HCL 5 MG TABLET PO PRN (20:26)
[2020-01-09] MEDS ORDERED: ZOLPIDEM TARTRATE 5 MG TABLET PO ONE (20:59)
[2020-01-09] MEDS: INSULIN (LEVEMIR) 100 UNITS/ML UNITS SQ SCH (22:31)
[2020-01-10] MEDS: INSULIN (NOVOLOG) ASPART 100 UNITS/ML 10ML VIAL SQ SCH ×2 (06:30→14:59)
[2020-01-10] MEDS: INSULIN SLIDING SCALE (NOVOLOG) 1 VIAL SQ SCH ×2 (06:31→15:00)
[2020-01-10] MEDS: ACETAMINOPHEN 325 MG TABLET (FP) PO PRN (06:31)
[2020-01-10] MEDS ORDERED: INSULIN (NOVOLOG) ASPART 100 UNITS/ML 10ML VIAL ONE ×2 (06:51→15:03)
[2020-01-10] MEDS ORDERED: INSULIN (LEVEMIR) 100 UNITS/ML UNITS SQ ONE (06:52)
[2020-01-10] MEDS ORDERED: AMOX TR/POT CLAV 500MG/125MG TABLETS (FP) PO SCH (08:00)
--- NOTE | 2020-01-10 10:03 | DS ---
Physical Exam: SUBJECTIVE: Patient seen and examined. No acute overnight events. OBJECTIVE: Vital Signs Period Temp Pulse Resp BP Sys/Marcelo Pulse Ox Last 24 Hr 97.3 F-98.3 F 76-87 20-20 106-113/50-63 93 PHYSICAL EXAM GENERAL: The patient is awake, alert, and fully oriented, in no acute distress. HEENT: NCAT. Sclera clear. MMM. LUNGS: Breath sounds equal, clear to auscultation bilaterally, no wheezes, no crackles. HEART: Regular rate and rhythm, S1, S2 without murmur, rub or gallop. ABDOMEN: Soft, nontender, nondistended, normoactive bowel sounds, no guarding EXTREMITIES: 2+ pulses, warm, well-perfused, no edema. 1+ DP RLE. R foot drop. Back: abscess w/ jostin drain in place draining serous fluid SKIN: Warm, dry, normal turgor LABS Laboratory Results - last 24 hr 01/09/20 01/09/20 01/09/20 11:39 16:18 20:45 POC Glucometer 174 179 167 01/10/20 06:28 POC Glucometer 149 HOSPITAL COURSE: 74 y.o. F PMH CHF (EF 35-40%), RA, DM 2, HTN, Hx DVT/PE, a fib (on Xarelto), known non-ischemic cardiomyopathy, multiple spine surgeries, s/p L4/5 laminectomy then L5/S1 seroma with recent epidural abscess drainage s/p I and D, complex wound closure and wound vac placement 11/26-sent home on IV Rocephin via PICC 11/29 who returned w/ shortness of breath for 3 days admitted for CHF exacerbation. Negative pcr swab for COVID on 12.25. Pt was continued on diuresis w/ torsemide. Seen by cardiology while inpatient, started on Entresto 24-26 BID for mortality benefit. Continued on Coreg. Pt had ELIZABETH while here; entresto & torsemide were held, Cr normalized and ELIZABETH resolved; entresto & torsemide were reinstated w/ no further renal issues. On 12/03 was d/c'd from the hospital s/p I&D of epidural abscess. At time of admission had completed 4weeks IV antibiotics via home PICC line; was continued on abx for another 1.5-2 weeks here and has now completed total 6 weeks abx requirements. Repeat wound abscess culture negative. During this visit ortho placed wound vac which has since been removed. JOSTIN drain was then placed and continues to drain serous fluid. Orthopedic surgery cleared patient for home DC w/ VNS for drain and wound care. Patient is to follow up with ortho surgery as outpatient for further JOSTIN drain and wound care management. Continued on xarelto for a-fib and PE/dvt hx; gabapentin for peripheral neuropathy. Will f/u with neuro as outpatient for nerve pain. Vital signs stable. patient hemodynamically stable for discharge to home w/ visiting nursing services. Date of Admission:12/26/19 -CXR 12/25 Right subclavian central venous catheter tip is in satisfactory position without evidence of a pneumothorax. Mild bilateral increased interstitial markings without gross evidence of focal infiltrates. Correlate clinically for further evaluation and follow-up. -Echo 12/26: LV sys function moderately reduced. EF 35-50%; moderate global hypokinesis of LV. LA dilation. Mod MR, trace TR. (previous Echo in 2018- w/ EF 55%) -01/01 lumbar spine MRI: Interval decrease in size of previously visualized large posterior lumbar spine collection extending from L1 down to S2 level with an air-fluid level. It measures approximately 13.2 cm in craniocaudal length and 4 cm in AP dimension with posterior epidural mass effect mainly at L4-L5 level resulting in marked canal stenosis. Rule out infection. L4-L5 right lateral posterior spur formation impinging right L4 nerve root L5-S1 mild to moderate disc herniation with mild superior extension impinging both L5 nerve roots. Date of Discharge: 01/10/20 Minutes to complete discharge: 36 <Tati Mcgregor - Last Filed: 01/10/20 10:15> Physical Exam: SUBJECTIVE: Patient seen and examined OBJECTIVE: Vital Signs Period Temp Pulse Resp BP Sys/Marcelo Pulse Ox Last 24 Hr 97.3 F-98.3 F 75-87 20-20 100-113/50-76 93-93 PHYSICAL EXAM LABS Laboratory Results - last 24 hr 01/09/20 01/09/20 01/10/20 16:18 20:45 06:28 POC Glucometer 179 167 149 01/10/20 14:59 POC Glucometer 220 HOSPITAL COURSE: Date of Admission:12/26/19 Date of Discharge: 01/10/20 74 y.o. F PMH CHF (EF 35-40%), RA, DM 2, HTN, Hx DVT/PE, a fib (on Xarelto), known non-ischemic cardiomyopathy, multiple spine surgeries, s/p L4/5 laminectomy then L5/S1 seroma with recent epidural abscess drainage s/p I and D, complex wound closure and wound vac placement 11/26-sent home on IV Rocephin via PICC 11/29 who returned w/ shortness of breath for 3 days admitted for CHF exacerbation. Negative pcr swab for COVID on 12.25. Pt was continued on diuresis w/ torsemide. Seen by cardiology while inpatient, started on Entresto 24-26 BID for mortality benefit. Continued on Coreg. Pt had ELIZABETH while here; entresto & torsemide were held, Cr normalized and ELIZABETH resolved; entresto & torsemide were reinstated w/ no further renal issues. On 12/03 was d/c'd from the hospital s/p I&D of epidural abscess. At time of admission had completed 4weeks IV antibiotics via home PICC line; was continued on abx for another 1.5-2 weeks here and has now completed total 6 weeks abx requirements. Repeat wound abscess culture negative. During this visit ortho placed wound vac which has since been removed. JOSTIN drain was then placed and continues to drain serous fluid. Orthopedic surgery cleared patient for home DC w/ VNS for drain and wound care. Patient is to follow up with ortho surgery as outpatient for further JOSTIN drain and wound care management. Continued on xarelto for a-fib and PE/dvt hx; gabapentin for peripheral neuropathy. Will f/u with neuro as outpatient for nerve pain. Vital signs stable. patient hemodynamically stable for discharge to home w/ visiting nursing services. Date of Admission:12/26/19 -CXR 12/25 Right subclavian central venous catheter tip is in satisfactory position without evidence of a pneumothorax. Mild bilateral increased interstitial markings without gross evidence of focal infiltrates. Correlate clinically for further evaluation and follow-up. -Echo 12/26: LV sys function moderately reduced. EF 35-50%; moderate global hypokinesis of LV. LA dilation. Mod MR, trace TR. (previous Echo in 2018- w/ EF 55%) -01/01 lumbar spine MRI: Interval decrease in size of previously visualized large posterior lumbar spine collection extending from L1 down to S2 level with an air-fluid level. It measures approximately 13.2 cm in craniocaudal length and 4 cm in AP dimension with posterior epidural mass effect mainly at L4-L5 level resulting in marked canal stenosis. Rule out infection. L4-L5 right lateral posterior spur formation impinging right L4 nerve root L5-S1 mild to moderate disc herniation with mild superior extension impinging both L5 nerve roots. <Linda Kumar - Last Filed: 01/10/20 16:23> Discharge Summary Problems reviewed: Yes Current Active Problems Acute heart failure (Acute) Epidural abscess (Chronic) - Home Medications Comprehensive Discharge Medication List: Ambulatory Orders Insulin Lispro Protamin/Lispro [Humalog Mix 75-25 Kwikpen] 22 unit SQ BIDAC 12/15/15 Zolpidem Tartrate [Ambien] 10 mg PO HS PRN 06/01/17 Leflunomide [Arava] 20 mg PO DAILY 07/26/18 Torsemide 50 mg PO DAILY 07/26/18 Baclofen 10 mg PO PRN PRN 07/16/19 Rivaroxaban [Xarelto -] 20 mg PO DAILY #30 tablet 10/03/19 Carvedilol [Coreg -] 12.5 mg PO BID 11/23/19 Gabapentin [Neurontin -] 600 mg PO TID 11/23/19 Diazepam 10 mg PO DAILY 12/28/19 Oxycodone HCl/Acetaminophen [Percocet 10-325 mg Tablet] 1 each PO QID 12/28/19 Pramipexole Di-HCl [Mirapex] 0.25 mg PO BID 12/28/19 Cyanocobalamin [Vitamin B12 -] 1,000 mcg PO DAILY #30 tablet 01/10/20 Ferrous Sulfate [Feosol] 325 mg PO BIDWM #60 ud 01/10/20 Sacubitril/Valsartan [Entresto 24 mg-26 mg Tablet] 1 each PO BID #60 tablet 01/10/20 <Tati Mcgregor - Last Filed: 01/10/20 10:15> - Home Medications Comprehensive Discharge Medication List: Ambulatory Orders Insulin Lispro Protamin/Lispro [Humalog Mix 75-25 Kwikpen] 22 unit SQ BIDAC 12/15/15 Zolpidem Tartrate [Ambien] 10 mg PO HS PRN 06/01/17 Leflunomide [Arava] 20 mg PO DAILY 07/26/18 Torsemide 50 mg PO DAILY 07/26/18 Baclofen 10 mg PO PRN PRN 07/16/19 Rivaroxaban [Xarelto -] 20 mg PO DAILY #30 tablet 10/03/19 Carvedilol [Coreg -] 12.5 mg PO BID 11/23/19 Gabapentin [Neurontin -] 600 mg PO TID 11/23/19 Diazepam 10 mg PO DAILY 12/28/19 Oxycodone HCl/Acetaminophen [Percocet 10-325 mg Tablet] 1 each PO QID 12/28/19 Pramipexole Di-HCl [Mirapex] 0.25 mg PO BID 12/28/19 Cyanocobalamin [Vitamin B12 -] 1,000 mcg PO DAILY #30 tablet 01/10/20 Ferrous Sulfate [Feosol] 325 mg PO BIDWM #60 ud 01/10/20 Sacubitril/Valsartan [Entresto 24 mg-26 mg Tablet] 1 each PO BID #60 tablet 01/10/20 <Linda Kumar - Last Filed: 01/10/20 16:23> Reason For Visit: SUSPECTED COVID19 EPIDURAL ABSCESS SOB Condition: Improved - Instructions Diet, Activity, Other Instructions: Your visit: You were in the hospital because you were experiencing shortness of breath. You were found to be having an exacerbation of your CHF (heart failure). In the hospital you were tested for COVID-19 which was NEGATIVE. You had an echocardiogram of your heart which found that your heart function was decreased compared to a previous echocardiogram you had in 2018. We treated your CHF exacerbation with medication (IV lasix) which resolved your symptoms. We then resumed your home medication Torsemide once the swelling in your legs had resolved. You were also seen by your spine surgeon and an infectious disease doctor for the wound on your lower back. You had the wound managed while in the hospital and had a drain placed in your back. This drain will need to be emptied and cleaned while at home by your home nursing services. You have completed your antibiotics and will not require any further antibiotics at this time. Medications: -Because your ejection fraction was decreased since 2018 we started you on a NEW MEDICATION called Entresto 24-26, please take this medicine TWO TIMES PER DAY, once in the morning and once in the evening -Continue Ferrous sulfate (iron) tablets, 325mg 2 times per day for your anemia. Also continue Vitamin B12 1,000mcg 1 tablet daily. -Please continue taking ALL OF YOUR OTHER HOME MEDICINES as prescribed by your doctors. Follow up: 1. Please follow up with the milk bottler Dr. Brennan, as we have made changes to your medicines. 2. On this admission it was noted that you likely have iron deficiency anemia and sleep apnea. Please follow up with your primary care doctor, Dr. Juvencio Carty, for further work up of your anemia and for follow up with pulmonary for a CPAP machine. 3. Follow up with Dr. Almanzar, neurologist, for continued care of your nerve pain. Surgical recommendations: -No heavy lifting (>5 lbs), bending or twisting. -You will be discharged home with nursing services for your back drain and skin care. Change your dressing and clean the wound twice a day as you've been doing before admission. -Continue to use your splint provided by orthopedic surgery while walking. Please be careful with walking and avoid falls. -Report any new weakness to Dr. Borjas. Please return to the Emergency Department if you have any worsening of your symptoms, dizziness, nausea, diarrhea, chest pain, or difficulty breathing. Referrals: Sreekanth Almanzar MD [Staff Physician] - Manuel Buchanan MD [Staff Physician] - 2 Weeks Margie Brennan MD [Staff Physician] - 1 Week Nataly Florentino MD [Primary Care Provider] - 1 Week Luis Borjas MD [Staff Physician] - 1 Week Disposition: VNS/HOME HEALTH CARE This patient is new to me today: No Emergency Visit: No Critical Care patient: No - Discharge Referral Referred to [facility] Med P.C.: No <Tati Mcgregor - Last Filed: 01/10/20 10:15> ATTENDING PHYSICIAN STATEMENT I saw and evaluated the patient. I reviewed the resident's note and discussed the case with the resident. I agree with the resident's findings and plan as documented. SUBJECTIVE: OBJECTIVE: ASSESSMENT AND PLAN: <Tati Mcgregor - Last Filed: 01/10/20 10:15> ATTENDING PHYSICIAN STATEMENT I saw and evaluated the patient. I reviewed the resident's note and discussed the case with the resident. I agree with the resident's findings and plan as documented. SUBJECTIVE: OBJECTIVE: ASSESSMENT AND PLAN: <Linda Kumar - Last Filed: 01/10/20 16:23>
--- NOTE | 2020-01-10 10:56 | PN ---
Progress Note, Physician History of Present Illness: stable lc/o of pain all over - Current Medication List Current Medications: Active Medications Acetaminophen (Tylenol -) 650 mg PO Q6H PRN PRN Reason: PAIN LEVEL 1-5 OR FEVER Last Admin: 01/10/20 06:31 Dose: 650 mg Documented by: Baclofen (Lioresal -) 10 mg PO Q8H PRN PRN Reason: MUSCLE SPASM Last Admin: 01/09/20 16:19 Dose: 10 mg Documented by: Carvedilol (Coreg -) 12.5 mg PO BID [facility] Last Admin: 01/09/20 22:31 Dose: 12.5 mg Documented by: Cyanocobalamin (Vitamin B12 -) 1,000 mcg PO DAILY [facility] Last Admin: 01/09/20 14:48 Dose: 1,000 mcg Documented by: Diazepam (Valium -) 10 mg PO DAILY [facility] Last Admin: 01/09/20 09:11 Dose: 10 mg Documented by: Docusate Sodium (Colace -) 100 mg PO DAILY [facility] Last Admin: 01/09/20 09:11 Dose: 100 mg Documented by: Ferrous Sulfate (Feosol -) 325 mg PO BIDWM [facility] Last Admin: 01/09/20 17:17 Dose: 325 mg Documented by: Gabapentin (Neurontin -) 600 mg PO DAILY [facility] Last Admin: 01/09/20 09:11 Dose: 600 mg Documented by: Insulin Aspart (Novolog Vial Sliding Scale -) 1 vial SQ [facility]; Protocol Last Admin: 01/10/20 06:31 Dose: Not Given Documented by: Insulin Aspart (Novolog Vial) 3 units SQ TIDAC [facility] Last Admin: 01/10/20 06:30 Dose: 3 units Documented by: Insulin Detemir (Levemir Vial) 10 units SQ HS [facility] Last Admin: 01/09/20 22:31 Dose: 10 units Documented by: Leflunomide (Arava -) 20 mg PO DAILY [facility] Last Admin: 01/09/20 09:12 Dose: 20 mg Documented by: Multi-Ingredient Lotion (Eucerin (Small Jar) -) 1 applic TP Q24H PRN PRN Reason: DRY SKIN Oxycodone HCl (Roxicodone -) 10 mg PO Q6H PRN PRN Reason: PAIN LEVEL 6-10 Last Admin: 01/09/20 20:46 Dose: 10 mg Documented by: Pramipexole Dihydrochloride (Mirapex -) 0.25 mg PO BID [facility] Last Admin: 01/09/20 22:31 Dose: 0.25 mg Documented by: Rivaroxaban (Xarelto) 20 mg PO DAILY@1800 [facility] Last Admin: 01/09/20 17:16 Dose: 20 mg Documented by: Sacubitril/Valsartan (Entresto 24 Mg-26 Mg Tablet) 1 tab PO BID [facility] Last Admin: 01/09/20 22:31 Dose: 1 tab Documented by: Torsemide (Demadex -) 50 mg PO DAILY [facility] Last Admin: 01/09/20 09:12 Dose: 50 mg Documented by: - Objective Vital Signs: Vital Signs Temperature 98.3 F 01/10/20 06:00 Pulse Rate 79 01/10/20 06:00 Respiratory Rate 20 01/10/20 06:00 Blood Pressure 106/63 01/10/20 06:00 O2 Sat by Pulse Oximetry (%) 93 L 01/09/20 21:00 Constitutional: Yes: Calm, Mild Distress Cardiovascular: Yes: S1, S2 Respiratory: Yes: Regular, CTA Bilaterally Gastrointestinal: Yes: Normal Bowel Sounds, Soft Musculoskeletal: Yes: WNL Extremities: Yes: Other Wound/Incision: Yes: Clean/Dry, Other (drain in place) Labs: CBC, BMP 01/08/20 07:20 01/08/20 07:20 INR, PTT INR 1.34 (0.83-1.09) H 12/26/19 14:20 Assessment/Plan 74 year old lady with history of CHF, RA, DM 2, HTN, Hx DVT/PE, a fib (on Xarelto), multiple spine surgeries, s/p L4/5 laminectomy then L5/S1 seroma with recent epidural abscess drainage s/p I and D - sent home on IV Rocephin via PICC 12/03 now returns with SOB , she was found to have acute CHF exa 1- Acute on chronic systolic CHF. euvolemic now. 2- H/o Epidural abscess s/p I&D. wound vac 3- Paroxysmal Atrial Fibrillation 4- Hx PE/DVT s/p IVC filter 5. DM 2: cont SSI. 6. RA 7- Normocytic Anemia - 8. NICHOLE all cx reports noted patient has received more than 5 weeks of iv abx wound care monitor drainage rest as per the team follow fungal cx though ifungal cx still not positive
--- NOTE | 2020-01-10 11:24 | PN ---
Progress Note (short form) - Note Progress Note: Chief Complaint: leg swelling, sob History of Present Illness: no edema, chest pain, palps, sob, dizzy Current Medications Generic Name Dose Route Start Last Admin Trade Name Freq PRN Reason Stop Dose Admin Acetaminophen 650 mg 01/04/20 15:55 01/10/20 06:31 Tylenol - PO 650 mg Q6H PRN Administration PAIN LEVEL 1-5 OR FEVER Baclofen 10 mg 01/04/20 15:55 01/09/20 16:19 Lioresal - PO 10 mg Q8H PRN Administration MUSCLE SPASM Carvedilol 12.5 mg 01/04/20 22:00 01/09/20 22:31 Coreg - PO 12.5 mg BID LISA Administration Cyanocobalamin 1,000 mcg 01/09/20 14:00 01/09/20 14:48 Vitamin B12 - PO 1,000 mcg DAILY LISA Administration Diazepam 10 mg 01/05/20 10:00 01/09/20 09:11 Valium - PO 10 mg DAILY LISA Administration Docusate Sodium 100 mg 01/03/20 15:15 01/09/20 09:11 Colace - PO 100 mg DAILY LISA Administration Ferrous Sulfate 325 mg 01/04/20 17:30 01/09/20 17:17 Feosol - PO 325 mg BIDWM LISA Administration Gabapentin 600 mg 01/05/20 10:00 01/09/20 09:11 Neurontin - PO 600 mg DAILY LISA Administration Insulin Aspart 1 vial 01/04/20 16:30 01/10/20 06:31 Novolog Vial Sliding Scale - SQ Not Given [facility] Protocol Insulin Aspart 3 units 01/09/20 16:30 01/10/20 06:30 Novolog Vial SQ 3 units TIDAC LISA Administration Insulin Detemir 10 units 01/07/20 22:00 01/09/20 22:31 Levemir Vial SQ 10 units HS LISA Administration Leflunomide 20 mg 01/05/20 10:00 01/09/20 09:12 Arava - PO 20 mg DAILY LISA Administration Multi-Ingredient Lotion 1 applic 01/04/20 15:55 Eucerin (Small Jar) - TP Q24H PRN DRY SKIN Oxycodone HCl 10 mg 01/09/20 20:26 01/09/20 20:46 Roxicodone - PO 10 mg Q6H PRN Administration PAIN LEVEL 6-10 Pramipexole Dihydrochloride 0.25 mg 01/04/20 22:00 01/09/20 22:31 Mirapex - PO 0.25 mg BID LISA Administration Rivaroxaban 20 mg 01/04/20 18:00 01/09/20 17:16 Xarelto PO 20 mg DAILY@1800 LISA Administration Sacubitril/Valsartan 1 tab 01/04/20 22:00 01/09/20 22:31 Entresto 24 Mg-26 Mg Tablet PO 1 tab BID LISA Administration Torsemide 50 mg 01/05/20 10:00 01/09/20 09:12 Demadex - PO 50 mg DAILY LISA Administration Vital Signs Period Temp Pulse Resp BP Sys/Marcelo Pulse Ox Last 24 Hr 97.3 F-98.3 F 76-87 20-20 106-113/50-63 93 Constitutional: Yes: Well Nourished, No Distress, Calm Eyes: No: Ptosis, Sclera Icterus Neck: Yes: Supple Cardiovascular: Yes: Regular Rate and Rhythm Respiratory: Yes: Regular. No: Accessory Muscle Use Extremities: No: Cyanosis Edema: No Neurological: Yes: Alert, Oriented Psychiatric: No: Agitated Laboratory Last Values WBC 5.7 K/mm3 (4.0-10.0) 01/08/20 07:20 RBC 3.95 M/mm3 (3.60-5.2) 01/08/20 07:20 Hgb 10.8 GM/dL (10.7-15.3) 01/08/20 07:20 Hct 33.7 % (32.4-45.2) 01/08/20 07:20 MCV 85.3 fl (80-96) 01/08/20 07:20 MCH 27.4 pg (25.7-33.7) 01/08/20 07:20 MCHC 32.1 g/dl (32.0-36.0) 01/08/20 07:20 RDW 21.5 % (11.6-15.6) H 01/08/20 07:20 Plt Count 250 K/MM3 (134-434) 01/08/20 07:20 MPV 8.0 fl (7.5-11.1) 01/08/20 07:20 Absolute Neuts (auto) 3.1 K/mm3 (1.5-8.0) 12/31/19 06:30 Neutrophils % 51.1 % (42.8-82.8) 12/31/19 06:30 Lymphocytes % 27.2 % (8-40) 12/31/19 06:30 Monocytes % 12.7 % (3.8-10.2) H 12/31/19 06:30 Eosinophils % 7.6 % (0-4.5) H D 12/31/19 06:30 Basophils % 1.4 % (0-2.0) 12/31/19 06:30 Nucleated RBC % 0 % (0-0) 12/31/19 06:30 PT with INR 15.90 SEC (9.7-13.0) H 12/26/19 14:20 INR 1.34 (0.83-1.09) H 12/26/19 14:20 PTT (Actin FS) 32.7 SECONDS (25.2-36.5) 12/26/19 14:20 VBG pH 7.35 (7.31-7.41) 12/26/19 14:20 POC VBG pCO2 50.2 mmHg (38-52) 12/26/19 14:20 POC VBG pO2 < 49 mmHg (28-48) H 12/26/19 14:20 VBG HCO3 27.2 mmol/L (23-29) 12/26/19 14:20 VBG O2 Sat (Michael) 79.1 % (70-80) 12/26/19 14:20 VBG Base Excess 1.1 mmol/L (-2-2) 12/26/19 14:20 Sodium 138 mmol/L (136-145) 01/08/20 07:20 Potassium 4.7 mmol/L (3.5-5.1) 01/08/20 07:20 Chloride 102 mmol/L (98-107) 01/08/20 07:20 Carbon Dioxide 28 mmol/L (21-32) 01/08/20 07:20 Anion Gap 7 MMOL/L (8-16) L 01/08/20 07:20 BUN 57.8 mg/dL (7-18) H 01/08/20 07:20 Creatinine 1.2 mg/dL (0.55-1.3) 01/08/20 07:20 Est GFR (CKD-EPI)AfAm 51.92 01/08/20 07:20 Est GFR (CKD-EPI)NonAf 44.80 01/08/20 07:20 POC Glucometer 149 UNITS (80-120) 01/10/20 06:28 Random Glucose 155 mg/dL (74-106) H 01/08/20 07:20 Lactic Acid 1.5 mmol/L (0.4-2.0) 12/26/19 14:20 Calcium 9.1 mg/dL (8.5-10.1) 01/08/20 07:20 Phosphorus 5.3 mg/dL (2.5-4.9) H 01/06/20 05:35 Magnesium 2.7 mg/dL (1.8-2.4) H 01/06/20 05:35 Iron 22 ug/dL (50-175) L 12/28/19 09:35 TIBC 307 ug/dL (250-450) 12/28/19 09:35 Iron Saturation 7 % (17.5-39) L 12/28/19 09:35 Unsaturated IBC 285 ug/dL (200-275) H 12/28/19 09:35 Ferritin 43.1 ng/ml (8-388) 12/28/19 09:35 Total Bilirubin 0.5 mg/dL (0.2-1) 01/07/20 06:50 AST 17 U/L (15-37) 01/07/20 06:50 ALT 9 U/L (13-61) L 01/07/20 06:50 Alkaline Phosphatase 143 U/L (45-117) H 01/07/20 06:50 LD Total 603 U/L (84-246) H 12/26/19 14:20 Creatine Kinase 136 U/L (26-192) 12/26/19 20:50 Creatine Kinase Cancelled 12/26/19 20:50 Troponin I < 0.02 ng/ml (0.00-0.05) 12/28/19 19:40 C-Reactive Protein 3.5 MG/DL (0.00-0.3) H 12/26/19 14:20 B-Natriuretic Peptide 3077.7 pg/ml (5-125) H 12/30/19 07:20 Total Protein 7.0 g/dl (6.4-8.2) 01/07/20 06:50 Albumin 3.1 g/dl (3.4-5.0) L 01/07/20 06:50 Vitamin B12 352 pg/ml (193-986) 12/28/19 09:35 Methylmalonic Acid 713 nmol/L (0-378) H 01/02/20 05:35 Serum Folate 17 ng/mL (3.1-17.5) 12/28/19 09:35 COVID-19 (MATA) Not detected (Not Detected) 12/26/19 14:20 Blood Type O POSITIVE 12/26/19 14:20 Antibody Screen Negative 12/26/19 14:20 Assessment/Plan tele: sr IMP: Epidural abscess, wound infection Acute on chronic systolic CHF, with what appears to be new LV dysfx from 2018 Moderate MR Prolonged QT PAF HTN 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 diabetic (uncontrolled glycemic status, does not f/u with PMD despite repeatedly advised to do so) -EF now moderately reduced (35-40%, global), last echo here 2018 was 50-55%. -has not had significant burden of AF, doubt tachy-CMP - in sinus on tele here -improved with IV lasix, then placed on po torsemide, continue torsemide. -Cont Coreg -low dose DORENE held during recent admit due to mild hyperkalemia and soft BPs (was on lisinopril 5 qd then). given current EF, pt has mortality benefit from Entresto. K normal, BP currently mostly > 110. -cont 24-26 BID dose here Prolonged QTC: -F/u ECGs -Keep K+ and Mg2+ normalized -Avoid / minimize QT prolonging meds VTach: -NSVT on tele -cont bb -replete K/Mg to 4/2 PAF: -Cont Coreg and Xarelto -Holter to assess rate control DVT/PE with history of filter: -cont with AC NICHOLE: -not treated, pt has not followed up for cpap therapy cardiac hallman stable
[2020-01-10] MEDS ORDERED: PT OWN MED DRAWER 7, Y5N ONE (11:32)
[2020-01-10] MEDS: GABAPENTIN 300 MG CAPSULE PO SCH (11:36)
[2020-01-10] MEDS: CARVEDILOL 12.5 MG TABLET (FP) PO SCH (11:36)
[2020-01-10] MEDS: diazePAM 5 MG TABLET PO SCH (11:36)
[2020-01-10] MEDS: CYANOCOBALAMIN 1,000 MCG TABLET (FP) PO SCH (11:36)
[2020-01-10] MEDS: DOCUSATE SODIUM 100 MG CAPSULE (FP) PO SCH (11:37)
[2020-01-10] MEDS: LEFLUNOMIDE 10 MG TABLET PO SCH (11:37)
[2020-01-10] MEDS: FERROUS SO4 325 MG TABLET (FP) PO SCH (11:37)
[2020-01-10] MEDS: TORSEMIDE 100 MG TABLET PO SCH (11:38)
[2020-01-10] MEDS: PRAMIPEXOLE DIHYDROCHLORIDE 0.25 MG TABLET PO SCH (11:38)
[2020-01-10] MEDS: SACUBITRIL/VALSARTAN 24 MG-26 MG TABLET PO SCH (11:39)
[2020-01-10 14:13] VITALS: BP 110/76; PULSE 76; TEMP 98
== END 2020-01-10 15:50 | disposition home health service (06) | DRG 291 ==
LOC: JER 13:28 → JERBED 16:58 → J8W 18:08 → J4W 12-28 20:32 → J8W 01-04 15:38
PROVIDERS: ADMIT Internal Medicine; ATTEND Internal Medicine
PROC: 009U30Z Drainage of Spinal Canal with Drainage Device, Percutaneous Approach (ICD-10-PCS; principal; 2020-01-04)
PROC: B04BZZZ Ultrasonography of Spinal Cord (ICD-10-PCS; 2020-01-04)
DX: I11.0 Hypertensive heart disease with heart failure (principal); G06.2 Extradural and subdural abscess, unspecified; T81.40XA Infection following a procedure, unspecified, initial encounter; G97.63 Postprocedural seroma of a nervous system organ or structure following a nervous system procedure; N17.9 Acute kidney failure, unspecified; I47.2 Ventricular tachycardia; I50.23 Acute on chronic systolic (congestive) heart failure; I42.8 Other cardiomyopathies; Y83.8 Other surgical procedures as the cause of abnormal reaction of the patient, or of later complication, without mention of misadventure at the time of the procedure; M06.9 Rheumatoid arthritis, unspecified; I48.0 Paroxysmal atrial fibrillation; M54.16 Radiculopathy, lumbar region; E11.65 Type 2 diabetes mellitus with hyperglycemia; E11.40 Type 2 diabetes mellitus with diabetic neuropathy, unspecified; M21.371 Foot drop, right foot; I34.0 Nonrheumatic mitral (valve) insufficiency; R94.31 Abnormal electrocardiogram [ECG] [EKG]; D50.9 Iron deficiency anemia, unspecified; M54.5 Low back pain; G47.33 Obstructive sleep apnea (adult) (pediatric); E66.9 Obesity, unspecified; E53.8 Deficiency of other specified B group vitamins; M24.7 Protrusio acetabuli; F32.9 Major depressive disorder, single episode, unspecified; B95.7 Other staphylococcus as the cause of diseases classified elsewhere; Z68.34 Body mass index [BMI] 34.0-34.9, adult; Z86.711 Personal history of pulmonary embolism; Z90.710 Acquired absence of both cervix and uterus; Z87.891 Personal history of nicotine dependence; Z96.653 Presence of artificial knee joint, bilateral; Z96.641 Presence of right artificial hip joint; Z86.718 Personal history of other venous thrombosis and embolism; Z88.0 Allergy status to penicillin
CPT/HCPCS: 10030; 36415; 71045-TC-FY; 72148-TC; 76098-TC-FY; 76998-TC; 80048; 80053; 82550; 82607; 82728; 82746; 82803; 82962; 83540; 83550; 83605; 83615; 83735; 83880; 83921; 84100; 84484; 85025; 85027; 85610; 85730; 86140; 86850; 86900; 86901; 87040; 87070; 87075; 87102; 87116; 87186; 87205; 87206; 87210; 87899; 93005; 93010; 93306-TC; 97116-GP; 97161-GP; 99285-25; C1729; C1769; J0131; J0475; U0003

== ENCOUNTER 2020-01-19 16:08 | Inpatient (IN) | payer OTHER ==
[2020-01-19] MEDS ORDERED: SODIUM CHLORIDE 0.9% 500 ML INFUS.BAG IV ONE (16:38)
--- NOTE | 2020-01-19 17:21 | PDOC ---
Documentation entered by Garrick Tuttle SCRIBE, acting as scribe for Nae Rodriguez MD. Nae Rodriguez MD: This documentation has been prepared by the scribeHayder Nirvannie, SCRIBE, under my direction and personally reviewed by me in its entirety. I confirm that the documentation accurately reflects all work, treatment, procedures, and medical decision making performed by me. Attending Attestation - Resident Resident Name: ChaunceyLovenima - ED Attending Attestation I have performed the following: I have examined & evaluated the patient, The case was reviewed & discussed with the resident, I agree w/resident's findings & plan, Exceptions are as noted - HPI HPI: 01/19/20 17:13 74 y.o. F PMH CHF (EF 35-40%), RA, DM 2, HTN, Hx DVT/PE, a fib (on Xarelto), known non-ischemic cardiomyopathy, multiple spine surgeries, s/p L4/5 laminectomy then L5/S1 seroma with recent epidural abscess drainage s/p I and D, complex wound closure and wound vac placement 11/26-s/p IV abx presenting with weakness and decreased appetite since DC 4 days ago associated with generalized feeling unwell. She is not able to describe her complaints but re-iterates that she does not feel well and hasnt been feeling better since DC. She also reports her stomach feels full. Also reports continued back pain and abd pain. She denies fever, chills, nausea, emesis, dysuria, diarrhea, constipation, urinary incontinence, stool incontinence, change in sensation. DASH drain hasn't been draining x several days as well. recently admitted from 12/26/19 to January 2020 for CHF exacerbation, aggressively diuresed 01/19/20 17:50 01/19/20 19:37 01/19/20 21:14 - Physicial Exam PE: 01/19/20 17:13 Agree with the resident's HPI and PE as documented in the electronic medical record. uncomfortable appearing. EOMI, PERRL, nl conjunctiva, anicteric; neck supple. lungs clear, RRR, abdomen soft nontender. TAYLOR x4, No peripheral edema. normal color for ethnicity, WWP. dried scabs/excoriations o abdomen and BLE. DASH drain in place. 01/19/20 19:18 - Medical Decision Making 01/19/20 17:17 Vital Signs Temp Pulse Resp BP Pulse Ox 98.1 F 91 H 20 76/46 L 98 01/19/20 17:16 01/19/20 16:15 01/19/20 16:15 01/19/20 16:15 01/19/20 16:15 vitals reviewed hypotensive, mentating fluid challenge afebrile rectally. \ cxr is clear. no acute pathology labs and lytes wnl, reassuring. no acidosis on [facility] cardiac panel neg UA with UTI, with +leuk esterase, nitrites, wbcs >10 - pt with multiple allergies, so reviewed her prior abx regimen. ok for ceftriaxone for UTI, pending urine cultures as she has tolerated cephalosporin previously CT imaging: Interval increase in the size of previously visualized large posterior collection with air extending to the subcu fat as well as the posterior epidural space, there is a posterior drainage catheter in place at L3-L4.. Multilevel d egenerative disc disease and postoperative findings with screws and rods in place. Incidental left adrenal nodule likely adrenal adenoma and right renal pole lesion. No intra-abdominal pathology is noted, gastric banding in place, emphysematous changes in the lungs ortho cs with Dr Borjas, agree with plan, will come to see pt when admitted pain control, gentle hydration and BP is responding. admit for UTI, weakness/dehydration, overdiuresis. 01/19/20 17:23 01/19/20 19:19 01/19/20 19:38 01/19/20 19:38 01/19/20 21:04 Heart Score/ECG Review #1 ECG reviewed & interpreted by me at: 17:00 General ECG Interpretation: Normal Rate Compared to previous ECG there are: No significant change 01/19/20 17:20 Atrial fibrillation at 80 bpm Discharge - Discharge Information Problems reviewed: Yes Clinical Impression/Diagnosis: UTI (urinary tract infection) Condition: Fair - Admission Yes - Follow up/Referral Referrals: Bandar Elliott [Primary Care Provider] - - Patient Discharge Instructions - Post Discharge Activity Vital Signs - Vital Signs Vital signs refused: No Blood Pressure: 96/77 BP Location: Left Arm Blood Pressure position: Supine
[2020-01-19 17:57] LABS: BASO % 1.3 % (0-2.0); EOS % 5.5 % (0-4.5); HEMATOCRIT 38.6 % (32.4-45.2); HEMOGLOBIN 12.4 GM/dL (10.7-15.3); LYMPH % 26.1 % (8-40); MCHC 32.1 g/dl (32.0-36.0); MEAN CELL VOLUME 87.2 fl (80-96); MEAN PLT VOLUME 8.7 fl (7.5-11.1); MONO % 11.5 % (3.8-10.2); NEUT % 55.6 % (42.8-82.8); PLATELET COUNT 292 K/MM3 (134-434); RBC 4.42 M/mm3 (3.60-5.2); RDW 19.7 % (11.6-15.6); WHITE BLOOD COUNT 7.9 K/mm3 (4.0-10.0)
[2020-01-19 17:58] LABS: VENOUS PC02 49.5 mmHg (38-52); VENOUS PH 7.32 (7.31-7.41); VENOUS PO2 < 49 mmHg (28-48)
[2020-01-19 17:59] LABS: VENOUS BASE EXCESS -1.9 mmol/L (-2-2)
[2020-01-19 18:07] LABS: INR 2.14 (0.83-1.09); PROTHROMBIN TIME (PATIENT) 25.5 SEC (9.7-13.0)
[2020-01-19 18:10] LABS: ACTIVATED PTT 38.5 SECONDS (25.2-36.5)
--- NOTE | 2020-01-19 18:11 | PDOC ---
History of Present Illness - General Chief Complaint: Pain Stated Complaint: ABDOMINAL PAIN Time Seen by Provider: 01/19/20 16:37 - History of Present Illness Initial Comments: 01/19/20 17:45 HPI: 74 y/o F with hx of CHF (35-40%), RA, DM2, HTN, DVT/PE, AFib on xarelto, non- ischemic cardiomyopathy, multiple spine surgeries, c/b epidural abscess and subsequent I&Ds (last 12/03) and prolonged abx course, [facility] presenting with decreased appetite since DC 4 days ago associated with generalized feeling unwell. She is not able to describe her complaints but re-iterates that she does not feel well and hasnt been feeling better since DC. She also reports her stomach feels full. Also reports continued back pain and abd pain. She denies fever, chills, nausea, emesis, dysuria, diarrhea, constipation, urinary incontinence, stool incontinence, change in sensation. PMHx: as noted above ROS: as noted SHx: Denies tobacco use; no alcohol use; no rec drugs Allergies: NKDA ROS: GENERAL/CONSTITUTIONAL: No fever or chills. +gen weakness. HEAD, EYES, EARS, NOSE AND THROAT: No change in vision. No ear pain or discharge. No sore throat. CARDIOVASCULAR: No chest pain or shortness of breath RESPIRATORY: No cough, wheezing, or hemoptysis. GASTROINTESTINAL: No nausea, vomiting, diarrhea or constipation. GENITOURINARY: No dysuria, frequency, or change in urination. MUSCULOSKELETAL: +back pain. SKIN: No rash NEUROLOGIC: No headache, vertigo, loss of consciousness, or change in strength /sensation. ENDOCRINE: No increased thirst. No abnormal weight change HEMATOLOGIC/LYMPHATIC: No anemia, easy bleeding, or history of blood clots. ALLERGIC/IMMUNOLOGIC: No hives or skin allergy. PE: GENERAL: Awake, alert, and fully oriented, mod acute distress HEAD: No signs of trauma, normocephalic, atraumatic EYES: EOMI, sclera anicteric, conjunctiva clear ENT: Auricles normal inspection, hearing grossly normal, nares patent, oropharynx clear without exudates. Moist mucosa NECK: Normal ROM, no lymphadenopathy LUNGS: No increased work of breathing, symmetrical chest rise, clear to ausculta tion bilaterally, no wheezes, crackles or rhonchi HEART: Regular rate, normal S1 and S2, no murmur, peripheral pulses 2+ and equal bilaterally. ABDOMEN: Soft, nondistended, BL lower quadrant tenderness. No guarding, no rebound. No masses. No CVAT BACK: midline incision well healed with small opening at inferior portion and serous drainage, no surrounding cellulitis or purulence from wound MUSCULOSKELETAL: decreased ROM of RLE with difficulty flexing hip, knee, ankle; FROM of LLE NEUROLOGICAL: Cranial nerves II through XII grossly intact. Normal speech, decreased sensation of RLE below the knee, right foot drop, decreased str of RLE 4/5 SKIN: Warm, Dry, normal turgor, no rashes or lesions noted Past History - Past Medical History Allergies/Adverse Reactions: Allergies Allergy/AdvReac Type Severity Reaction Status Date / Time levofloxacin [From Levaquin] Allergy Severe ANAPHYLAXIS Verified 12/26/19 13:30 methotrexate Allergy Severe Swelling Verified 12/26/19 13:30 Penicillins Allergy Mild Rash Verified 12/26/19 13:30 doxycycline Allergy Unknown Verified 12/26/19 13:30 bumetanide [From Bumex] Allergy Rash Verified 12/26/19 13:30 morphine AdvReac Mild Itching Verified 12/28/19 11:59 piperacillin sodium AdvReac Mild Itching Verified 12/26/19 13:30 [From Zosyn] tazobactam sodium AdvReac Mild Itching Verified 12/26/19 13:30 [From Zosyn] Home Medications: Ambulatory Orders Insulin Lispro Protamin/Lispro [Humalog Mix 75-25 Kwikpen] 22 unit SQ BIDAC Zolpidem Tartrate [Ambien] 10 mg PO HS PRN 06/01/17 Leflunomide [Arava] 20 mg PO DAILY 07/26/18 Torsemide 50 mg PO DAILY 07/26/18 Baclofen 10 mg PO PRN PRN 07/16/19 Rivaroxaban [Xarelto -] 20 mg PO DAILY #30 tablet 10/03/19 Carvedilol [Coreg -] 12.5 mg PO BID 11/23/19 Gabapentin [Neurontin -] 600 mg PO TID 11/23/19 Diazepam 10 mg PO DAILY 12/28/19 Oxycodone HCl/Acetaminophen [Percocet 10-325 mg Tablet] 1 each PO QID 12/28/19 Pramipexole Di-HCl [Mirapex] 0.25 mg PO BID 12/28/19 Cyanocobalamin [Vitamin B12 -] 1,000 mcg PO DAILY #30 tablet 01/10/20 Ferrous Sulfate [Feosol] 325 mg PO BIDWM #60 ud 01/10/20 Sacubitril/Valsartan [Entresto 24 mg-26 mg Tablet] 1 each PO BID #60 tablet 01/10/20 Anemia: No Asthma: No Cancer: No Cardiac Disorders: Yes (A- FIB) CVA: No COPD: No CHF: Yes DVT: Yes Dementia: No Diabetes: Yes (WITH NEUROPATHY) GI Disorders: No Disorders: No HTN: Yes Hypercholesterolemia: Yes Liver Disease: No Seizures: No Thyroid Disease: No - Surgical History Abdominal Surgery: Yes (GASTRIC BANDING) Appendectomy: No Cardiac Surgery: No Cholecystectomy: Yes Lung Surgery: No Neurologic Surgery: Yes (4 BACK FUSIONS) Orthopedic Surgery: Yes (R TKR 2004;R SHOULDER SX , L. KNEE SURGERY-2012, R THR W 5 MORE SURGERIES) - Immunization History Immunization Up to Date: Yes - Psycho Social/Smoking Cessation Hx Smoking Status: No Smoking History: Never smoked Have you smoked in the past 12 months: No Number of Cigarettes Smoked Daily: 0 If you are a former smoker, when did you quit?: 1967 Hx Alcohol Use: No Drug/Substance Use Hx: No Substance Use Type: None Hx Substance Use Treatment: No *Physical Exam - Vital Signs Last Vital Signs Temp Pulse Resp BP Pulse Ox 98.1 F 91 H 20 76/46 L 99 01/19/20 17:16 01/19/20 16:15 01/19/20 16:15 01/19/20 16:15 01/19/20 17:35 ED Treatment Course - LABORATORY CBC & Chemistry Diagram: 01/19/20 12:30 01/19/20 12:30 Medical Decision Making - Medical Decision Making 01/19/20 18:50 74 y/o F with hx of CHF (35-40%), RA, DM2, HTN, DVT/PE, AFib on xarelto, non- ischemic cardiomyopathy, multiple spine surgeries, c/b epidural abscess and subsequent I&Ds (last 12/03) and prolonged abx course, recently DCd from the hospital for CHF exacerbation presenting with decreased appetite since DC 4 days ago associated with generalized feeling unwell and abd pain. Initial BP 80s/50s HR 90s O2 98%. PE with BL lower quadrant ttp, midline back wound well healed with no cellulitis and serous drainage, RLE chronic sensation change and foot drop. Patient recently DCd following CHF exacerbation with aggressive dieuresis. DDx includes dehydration, over dieuresis, sepsis. Spinal shock less likely given lack of cord compression symptoms. -sepsis order set, t&s, CT abd pel with T/L recon -ofirmev, 1L ivf, 10mg oxy 01/19/20 19:20 UA consistent with UTI; patient has tolerated ceftriaxone in the past; will administer 1gm ceftriaxone will admit for uti, pain control, hypotension likely 2/2 to overdiuresis 01/19/20 21:19 CT scan of the abdomen pelvis without oral and intravenous contrast Coronal and sagittal reformatted images were obtained Comparison: Prior CT scan of the abdomen and pelvis dated 12/26/2009 In the included lower lung, there are minimal atelectatic changes in the right middle lobe and lingular segment of the left upper lobe as well as suggestion of minimal centrilobular emphysema. The heart is within normal limits in size. Mild calcification of the coronary arteries are present. Gastric banding is again noted. The stomach is only partially distended limiting evaluation of its wall. The liver, spleen and pancreas appear unremarkable. Nonvisualization of the gallbladder. Right adrenal gland appears unremarkable. 1.3 cm left adrenal nodule likely an adrenal adenoma. 1.2 cm right renal upper pole lesion, of indeterminate consistency. Both kidneys appear otherwise unremarkable. Vena cava filter is in satisfactory position. There is no evidence of small bowel obstruction. Normal-appearing terminal ileum and appendix. Normal stool burden the colon. Multiple diverticula in the sigmoid colon without evidence of acute diverticulitis. Partially distended urinary bladder without wall thickening. Perirectal and pericecal fat are clear. No free air or free fluid are identified in the abdomen pelvis. Impression: Status post gastric banding. Left adrenal nodule measuring 1.3 cm likely representing an adrenal adenoma. 1.2 cm right renal upper pole lesion of indeterminate consistency. Further evaluation with renal ultrasound is needed. There is no evidence of small bowel obstruction. CT scan of the thoracic and lumbar spine without intravenous contrast Contiguous axial scans were obtained followed with coronal and sagittal reconstruction images. Compared to prior CT scan of the lumbar spine dated 09/08/2019 and MRI of the lumbar spine dated 01/02/2020 The height and alignment of the vertebral bodies appear unremarkable. No fracture or subluxation is identified. Status post posterior fusion from T10 down to L3 level. Interbody spacers at L2-L3, L3- L4 and L4-L5 level. Moderate to marked degenerative vacuum phenomena at L5-S1 level. T5-T6 moderate to marked degenerative disc disease with minimal disc osteophyte complex. In the lumbar spine, previously visualized large posterior collection with air and has increased in size since see prior MRI now measuring 15.8 x 5.6 cm in craniocaudal and AP dimension and that appears to be extending to the posterior epidural space as well as involving the subcutaneous fat. A drainage catheter is present at L3-L4 level. Multiple bone fragments are present around the collection some of which are likely related to prior bone graft of the facet joints. No gross paravertebral soft tissue mass is seen. Note is made of fatty infiltration/atrophy of the right psoas muscle relative to the left. IMPRESSION: Status post op, as described above. In comparison to prior MRI of the lumbar spine dated 01/02/2020, there is interval increase in size of previously visualized large posterior collection with air, extending to the subcutaneous fat as well as to the posterior epidural space. A posterior drainage catheter is present at L3-L4 level. Cannot rule out superimposed infection Correlate clinically to determine further evaluation. Discharge - Discharge Information Problems reviewed: Yes Clinical Impression/Diagnosis: UTI (urinary tract infection), Dehydration, Epidural abscess Condition: Guarded - Admission Yes - Follow up/Referral Referrals: Bandar Elliott [Non Staff, Medical] - - Patient Discharge Instructions - Post Discharge Activity
[2020-01-19] MEDS ORDERED: ACETAMINOPHEN 1000 MG/100 ML VIAL (NON FORMULARY) IVPB ONE (18:13)
[2020-01-19] MEDS ORDERED: oxyCODONE HCL 5 MG TABLET PO ONE (18:13)
[2020-01-19] MEDS ORDERED: ACETAMINOPHEN INJECTION 100 ML IVPB ONE ×2 (18:46→21:13)
[2020-01-19] MEDS ORDERED: oxyCODONE HCL 5 MG TABLET ONE (18:46)
[2020-01-19 18:48] LABS: BILIRUBIN,TOTAL 0.5 mg/dL (0.2-1); BLOOD UREA NITROGEN 26.1 mg/dL (7-18); CALCIUM 8.8 mg/dL (8.5-10.1); CREATININE 1.6 mg/dL (0.55-1.3); POTASSIUM 4.7 mmol/L (3.5-5.1); TOT PROT 7.6 g/dl (6.4-8.2)
[2020-01-19 18:56] LABS: EPI CELLS 13 /uL (0-25.1); HYALINE CASTS 2 /uL (0-3.1); URINE APPEARANCE CLOUDY; URINE BILIRUBIN NEGATIVE (NEGATIVE); URINE COLOR YELLOW; URINE GLUCOSE (UA) NEGATIVE (NEGATIVE); URINE KETONE NEGATIVE (NEGATIVE); URINE LEUK ESTERASE 2+ (NEGATIVE); URINE NITRITE POSITIVE (NEGATIVE); URINE PROTEIN NEGATIVE (NEGATIVE); URINE RBC 9 /uL (0-23.9); URINE UROBILINOGEN 0.2 mg/dL (0.2-1.0); URINE WBC 219 /uL (0-25.8)
[2020-01-19] MEDS ORDERED: CEFTRIAXONE 1 GM in DEXTROSE 5%-WATER - 100 ML IVPB ONE (19:18)
[2020-01-19] MEDS ORDERED: CEFTRIAXONE 1 GM/50 ML BAG ONE (21:14)
--- NOTE | 2020-01-19 21:38 | HP ---
CHIEF COMPLAINT: no appetite for the past several weeks, lower abdominal pain and not feeling well, recently hospitalized from 12/26/19 -01/15/2020 for CHF exacerbation and was aggressively diuresed PCP:Dr.Richard Elliott Spinal Surgeon: Dr. Borjas Hat Model: Dr. Pastrana HISTORY OF PRESENT ILLNESS: 74 year old female with a past medical history of systolic congestive heart failure (EF 35-40%), RA, DM 2, HTN, Hx DVT/PE, a fib (on Xarelto), known non- ischemic cardiomyopathy, multiple spine surgeries, s/p L4/5 laminectomy then L5/S1 seroma with recent epidural abscess drainage s/p I and D, complex wound closure and wound vac placement 11/[address] Borjas s/p IV abx who presented to the ER reporting a decreased appetite, lower abdominal pain, and with a generalized feeling of "being unwell". She was not able to describe her complai nts but states she does not feel well and has not been feeling better since she was discharged home from the hospital 4 days ago after being aggressively diuresed for an acute CHF exacerbation. She reports her stomach feels full . She reports DASH drain has not drained any fluid for about 3 days. She reports continued back pain and lower abdominal pain. She denied fever, chills, nausea, emesis, dysuria, diarrhea, constipation, urinary incontinence, stool incontinence, change in sensation. She also denied any symptoms of chest pain, shortness of breath or orthopnea. On presentation to the ER she was hypotensive with SBP 70-80's which improved with 1 liter of IVF. Labs notable for a lactic acid of 2.1 and a WBC of 7.9, afebrile. UA cloudy with 2+ leukoesterase, trace blood, positive nitrite consistent with a UTI. She received a dose of 1 gm of IV Ceftriaxone. Urine and blood culture obtained and pending. ELIZABETH- creatinine 1.6. She received 1 Liter of IVF and likely related to ove rdiuresis on prior hospitalization/dehydration. CT scan of abdomen with findings demonstrating increased collection size. Spinal surgeon -Dr. Borjas was consulted by ER physician and will see patient tomorrow and likely will need DASH drain replaced as has not drained for the past 3 days. Labs also notable for INR of 2.14. Nasal swabbed for COVID-19. Recent Travel: no PAST MEDICAL HISTORY: Systolic congestive heart failure (EF 35-40%) hematoid arthritis DM 2 Hypertension Hx DVT/PE Atrial fibrillation (on Xarelto) Non-ischemic cardiomyopathy PAST SURGICAL HISTORY: Multiple spinal surgeries including s/p L4/5 laminectomy then L5/S1 seroma with recent epidural abscess drainage s/p I and D, complex wound closure and wound vac placement 11/[address] Borjas Cholecystectomy Gastric band surgery Social History: Smoking: no Alcohol: no Drugs: no Family History noncontributory Allergies levofloxacin [From Levaquin] Allergy (Severe, Verified 12/26/19 13:30) ANAPHYLAXIS methotrexate Allergy (Severe, Verified 12/26/19 13:30) Swelling BLISTERS; ALSO ALLERGY TO PCN MANY YRS AGO Penicillins Allergy (Mild, Verified 12/26/19 13:30) Rash doxycycline Allergy (Unknown, Verified 12/26/19 13:30) does not recall reaction. "It made me sick" bumetanide [From Bumex] Allergy (Verified 12/26/19 13:30) Rash morphine Adverse Reaction (Mild, Verified 12/28/19 11:59) Itching *12/28/19 Oxycodone has been administered without Adverse reaction x3. piperacillin sodium [From Zosyn] Adverse Reaction (Mild, Verified 12/26/19 13:30) Itching tazobactam sodium [From Zosyn] Adverse Reaction (Mild, Verified 12/26/19 13:30) Itching HOME MEDICATIONS: Home Medications Medication Instructions Recorded Insulin Lispro Protamin/Lispro 22 unit SQ BIDAC 12/15/15 [Humalog Mix 75-25 Kwikpen] Zolpidem Tartrate [Ambien] 10 mg PO HS PRN 06/01/17 Leflunomide [Arava] 20 mg PO DAILY 07/26/18 Torsemide 50 mg PO DAILY 07/26/18 Baclofen 10 mg PO PRN PRN 07/16/19 Rivaroxaban [Xarelto -] 20 mg PO DAILY #30 tablet 10/03/19 Carvedilol [Coreg -] 12.5 mg PO BID 11/23/19 Gabapentin [Neurontin -] 600 mg PO TID 11/23/19 Diazepam 10 mg PO DAILY 12/28/19 Oxycodone HCl/Acetaminophen 1 each PO QID 12/28/19 [Percocet 10-325 mg Tablet] Pramipexole Di-HCl [Mirapex] 0.25 mg PO BID 12/28/19 Cyanocobalamin [Vitamin B12 -] 1,000 mcg PO DAILY #30 tablet 01/10/20 Ferrous Sulfate [Feosol] 325 mg PO BIDWM #60 ud 01/10/20 Sacubitril/Valsartan [Entresto 24 1 each PO BID #60 tablet 01/10/20 mg-26 mg Tablet] REVIEW OF SYSTEMS CONSTITUTIONAL: Absent: fever, chills, diaphoresis, generalized weakness, malaise, loss of appetite, weight change HEENT: Absent: rhinorrhea, nasal congestion, throat pain, throat swelling, difficulty swallowing, mouth swelling, ear pain, eye pain, visual changes CARDIOVASCULAR: Absent: chest pain, syncope, palpitations, irregular heart rate, lightheadedness, peripheral edema RESPIRATORY: Absent: cough, shortness of breath, dyspnea with exertion, orthopnea, wheezing, stridor, hemoptysis GASTROINTESTINAL: Absent: abdominal pain, abdominal distension, nausea, vomiting, diarrhea, constipation, melena, hematochezia GENITOURINARY: Absent: dysuria, frequency, urgency, hesitancy, hematuria, flank pain, genital pain MUSCULOSKELETAL: Absent: myalgia, arthralgia, joint swelling, back pain, neck pain SKIN: Absent: rash, itching, pallor HEMATOLOGIC/IMMUNOLOGIC: Absent: easy bleeding, easy bruising, lymphadenopathy, frequent infections ENDOCRINE: Absent: unexplained weight gain, unexplained weight loss, heat intolerance, cold intolerance NEUROLOGIC: Absent: headache, focal weakness or paresthesias, dizziness, unsteady gait, seizure, mental status changes, bladder or bowel incontinence PSYCHIATRIC: Absent: anxiety, depression, suicidal or homicidal ideation, hallucinations. PHYSICAL EXAMINATION Vital Signs - 24 hr 01/19/20 01/19/20 01/19/20 16:15 17:16 17:35 Temperature 97.5 F L 98.1 F Pulse Rate 91 H Pulse Rate [ Right] Respiratory 20 Rate Blood Pressure 76/46 L Blood Pressure [Right Arm] O2 Sat by Pulse 98 99 Oximetry (%) 01/19/20 01/19/20 17:37 21:14 Temperature Pulse Rate Pulse Rate [ 73 Right] Respiratory Rate Blood Pressure 96/77 Blood Pressure 81/32 L [Right Arm] O2 Sat by Pulse 98 Oximetry (%) General no acute distress Vital signs reviewed afebrile blood pressure noted Neuro no focal deficits speech clear moving upper and lower extremities awake alert and oriented X3 Neck no JVD Lungs CTA nonlabored breathing effort no rales no wheezing no use of accessory muscles Heart s1s2 rate regular Abdomen soft nontender on light palpation no acute abdomen Extremities minimal lower extremity edema present cool to touch Mood cooperative Laboratory Results - last 24 hr 01/19/20 01/19/20 01/19/20 12:30 12:30 12:30 WBC 7.9 RBC 4.42 Hgb 12.4 Hct 38.6 MCV 87.2 MCH 28.0 MCHC 32.1 RDW 19.7 H Plt Count 292 MPV 8.7 Absolute Neuts (auto) 4.4 Neutrophils % 55.6 Lymphocytes % 26.1 Monocytes % 11.5 H Eosinophils % 5.5 H Basophils % 1.3 Nucleated RBC % 0 PT with INR 25.50 H INR 2.14 H PTT (Actin FS) 38.5 H VBG pH POC VBG pCO2 POC VBG pO2 VBG HCO3 VBG O2 Sat (Michael) VBG Base Excess Sodium Potassium Chloride Carbon Dioxide Anion Gap BUN Creatinine Est GFR (CKD-EPI)AfAm Est GFR (CKD-EPI)NonAf Random Glucose Lactic Acid Calcium Total Bilirubin AST ALT Alkaline Phosphatase Troponin I < 0.02 Total Protein Albumin Urine Color Urine Appearance Urine pH Ur Specific [place] Urine Protein Urine Glucose (UA) Urine Ketones Urine Blood Urine Nitrite Urine Bilirubin Urine Urobilinogen Ur Leukocyte Esterase Urine WBC (Auto) Urine RBC (Auto) Urine Casts (Auto) U Epithel Cells (Auto) Urine Bacteria (Auto) Blood Type Antibody Screen 01/19/20 01/19/20 01/19/20 12:30 12:30 12:30 WBC RBC Hgb Hct MCV MCH MCHC RDW Plt Count MPV Absolute Neuts (auto) Neutrophils % Lymphocytes % Monocytes % Eosinophils % Basophils % Nucleated RBC % PT with INR INR PTT (Actin FS) VBG pH 7.32 POC VBG pCO2 49.5 POC VBG pO2 < 49 H VBG HCO3 24.6 VBG O2 Sat (Michael) 60.8 L VBG Base Excess -1.9 Sodium 138 Potassium 4.7 Chloride 105 Carbon Dioxide 27 Anion Gap 7 L BUN 26.1 H Creatinine 1.6 H Est GFR (CKD-EPI)AfAm 36.67 Est GFR (CKD-EPI)NonAf 31.64 Random Glucose 124 H Lactic Acid 2.1 H Calcium 8.8 Total Bilirubin 0.5 AST 11 L ALT 12 L Alkaline Phosphatase 146 H Troponin I Total Protein 7.6 Albumin 3.0 L Urine Color Urine Appearance Urine pH Ur Specific [place] Urine Protein Urine Glucose (UA) Urine Ketones Urine Blood Urine Nitrite Urine Bilirubin Urine Urobilinogen Ur Leukocyte Esterase Urine WBC (Auto) Urine RBC (Auto) Urine Casts (Auto) U Epithel Cells (Auto) Urine Bacteria (Auto) Blood Type Antibody Screen 01/19/20 01/19/20 17:30 18:14 WBC RBC Hgb Hct MCV MCH MCHC RDW Plt Count MPV Absolute Neuts (auto) Neutrophils % Lymphocytes % Monocytes % Eosinophils % Basophils % Nucleated RBC % PT with INR INR PTT (Actin FS) VBG pH POC VBG pCO2 POC VBG pO2 VBG HCO3 VBG O2 Sat (Michael) VBG Base Excess Sodium Potassium Chloride Carbon Dioxide Anion Gap BUN Creatinine Est GFR (CKD-EPI)AfAm Est GFR (CKD-EPI)NonAf Random Glucose Lactic Acid Calcium Total Bilirubin AST ALT Alkaline Phosphatase Troponin I Total Protein Albumin Urine Color Yellow Urine Appearance Cloudy Urine pH 5.0 Ur Specific [place] 1.009 L Urine Protein Negative Urine Glucose (UA) Negative Urine Ketones Negative Urine Blood Trace Urine Nitrite Positive H Urine Bilirubin Negative Urine Urobilinogen 0.2 Ur Leukocyte Esterase 2+ H Urine WBC (Auto) 219 Urine RBC (Auto) 9 Urine Casts (Auto) 2 U Epithel Cells (Auto) 13 Urine Bacteria (Auto) >10,000 Blood Type O POSITIVE Antibody Screen Negative Diagnostics CT scan of Abdomen [facility] 01/19/2020 CT scan of the abdomen pelvis without oral and intravenous contrast Coronal and sagittal reformatted images were obtained Comparison: Prior CT scan of the abdomen and pelvis dated 12/26/2009 In the included lower lung, there are minimal atelectatic changes in the right middle lobe and lingular segment of the left upper lobe as well as suggestion of minimal centrilobular emphysema. The heart is within normal limits in size. Mild calcification of the coronary arteries are present. Gastric banding is again noted. The stomach is only partially distended limiting evaluation of its wall. The liver, spleen and pancreas appear unremarkable. Nonvisualization of the gallbladder. Right adrenal gland appears unremarkable. 1.3 cm left adrenal nodule likely an adrenal adenoma. 1.2 cm right renal upper pole lesion, of indeterminate consistency. Both kidneys appear otherwise unremarkable. Vena cava filter is in satisfactory position. There is no evidence of small bowel obstruction. Normal-appearing terminal ileum and appendix. Normal stool burden the colon. Multiple diverticula in the sigmoid colon without evidence of acute diverticulitis. Partially distended urinary bladder without wall thickening. Perirectal and pericecal fat are clear. No free air or free fluid are identified in the abdomen pelvis. Impression: Status post gastric banding. Left adrenal nodule measuring 1.3 cm likely representing an adrenal adenoma. 1.2 cm right renal upper pole lesion of indeterminate consistency. Further evaluation with renal ultrasound is needed. There is no evidence of small bowel obstruction. CT scan of the thoracic and lumbar spine without intravenous contrast Contiguous axial scans were obtained followed with coronal and sagittal reconstruction images. Compared to prior CT scan of the lumbar spine dated 09/08/2019 and MRI of the lumbar spine dated 01/02/2020 The height and alignment of the vertebral bodies appear unremarkable. No fracture or subluxation is identified. Status post posterior fusion from T10 down to L3 level. Interbody spacers at L2-L3, L3- L4 and L4-L5 level. Moderate to marked degenerative vacuum phenomena at L5-S1 level. T5-T6 moderate to marked degenerative disc disease with minimal disc osteophyte complex. In the lumbar spine, previously visualized large posterior collection with air and has increased in size since see prior MRI now measuring 15.8 x 5.6 cm in craniocaudal and AP dimension and that appears to be extending to the posterior epidural space as well as involving the subcutaneous fat. A drainage catheter is present at L3-L4 level. Multiple bone fragments are present around the collection some of which are likely related to prior bone graft of the facet joints. No gross paravertebral soft tissue mass is seen. Note is made of fatty infiltration/atrophy of the right psoas muscle relative to the left. ] IMPRESSION: Status post op, as described above. In comparison to prior MRI of the lumbar spine dated 01/02/2020, there is interval increase in size of previously visualized large posterior collection with air, extending to the subcutaneous fat as well as to the posterior epidural space. A posterior drainage catheter is present at L3-L4 level. Cannot rule out superimposed infection Correlate clinically to determine further evaluation. ASSESSMENT/PLAN: Mrs. Chatman is a 74 year old female with a past medical history of systolic congestive heart failure (EF 35-40%), rheumatoid arthritis, type II diabetes mellitus, hypertension, Hx DVT/PE, atrial fibrillation (on Xarelto), non- ischemic cardiomyopathy, multiple spine surgeries s/p L4/5 laminectomy then L5/S1 seroma with recent epidural abscess drainage s/p I and D, complex wound closure and wound vac placement 11/[address] Borjas s/p IV abx who has anorexia, lower abdominal pain, and with a generalized feeling of being unwell. On presentation to the ER she was hypotensive with SBP 70-80's which improved with 1 liter of IVF. She had an elevated lactic acid of 2.1 and a normal WBC. She was found to have a UTI and ELIZABETH and likely related to overdiuresis on prior hospitalization/dehydration. She underwent a CT scan of abdomen with findings demonstrating epidural drainage with increased collection size. DASH drain has not drained for the past [address] Borjas has been consulted and will see patient tomorrow and likely will need DASH drain replaced. Admit to Med/Surg Unit. #1 Abdominal Pain/ Increased Epidural Collection Size currently afebrile, no leukocytosis, lactic acid level 2.1, DASH drain empty with no fluid/drainage for 3 days, CT scan of abdomen with an interval increase in size of previously visualized large posterior collection with air, extending to the subcutaneous fat as well as to the posterior epidural space Dr. Borjas-Spinal surgeon has been consulted will keep NPO after midnight repeat lactic acid level INR 2.14, repeat INR in am c/w pain management with Oxycodone/Acetaminophen 1 tablet q4h prn for severe pain #2 UTI(asymptomatic) UA- cloudy with 2+ leukoesterase, trace blood and +nitrite c/w IV Ceftriaxone 1 gm daily follow up on urine and blood cultures #3 ELIZABETH likely secondary to overdiuresis/?dehydration received 1 Liter IVF, will avoid giving anymore IVF to prevent acute pulmonary edema repeat BMP in am continued on torsemide, reevaluate in am #4 Chronic Systolic Congestive Heart Failure no acute CHF exacerbation, appears euvolemic, no evidence of hypoxia, able to lie flat and denies orthopnea, has minimal BLE edema will hold coreg and entresto for now in setting of hypotension likely secondary sepsis,labs notable for normal LFT's, ELIZABETH, not likely cardiogenic shock c/w torsemide 50 mg daily #5 Hx Hypertenison hypotension improved with IVF will hold coreg, entresto #6 Hx DVT/PE c/w Xarelto SCDS #7 Atrial Fibrillation rate controlled, on coreg will hold coreg with hypotension in setting of ?sepsis c/w Xarelto for stroke prophylaxis #8 Diabetes Mellitus BGM before meals and at bedtime hold insulin as NPO after midnight #9 Rule Out COVID(low suspicion) COVID test 12/25 not detected follow up on nasal COVID swab(taken 01/18) maintain strict droplet/contact isolation precautions DVT Prophylaxis c/w home dose of Xarelto SCD's FEN no IVF BMP daily and replete electrolytes as needed low sodium, NPO after midnight Visit type - Emergency Visit Emergency Visit: Yes ED Registration Date: 01/19/20 Care time: The patient presented to the Emergency Department on the above date and was hospitalized for further evaluation of their emergent condition. - New Patient This patient is new to me today: Yes Date on this admission: 01/19/20 - Critical Care Critical Care patient: No
[2020-01-19] MEDS ORDERED: MELATONIN 5 MG TABLETS PO ONE (22:05)
[2020-01-19] MEDS ORDERED: MELATONIN 5 MG TABLETS ONE (22:58)
[2020-01-20] MEDS: oxyCODONE HCL 5 MG TABLET PO PRN ×2 (04:46→09:30)
[2020-01-20] MEDS: ACETAMINOPHEN 325 MG TABLET (FP) PO PRN ×3 (04:48→19:44)
[2020-01-20] MEDS: GABAPENTIN 400 MG CAPSULE PO SCH ×2 (06:15→14:36)
[2020-01-20 07:55] LABS: HEMATOCRIT 34.4 % (32.4-45.2); MCH 28.2 pg (25.7-33.7); MCHC 32.1 g/dl (32.0-36.0); MEAN PLT VOLUME 8.4 fl (7.5-11.1); PLATELET COUNT 187 K/MM3 (134-434); RBC 3.91 M/mm3 (3.60-5.2); RDW 19.5 % (11.6-15.6); WHITE BLOOD COUNT 5.5 K/mm3 (4.0-10.0)
[2020-01-20 08:13] LABS: BLOOD UREA NITROGEN 24.7 mg/dL (7-18); CALCIUM 8.3 mg/dL (8.5-10.1); CREATININE 1.1 mg/dL (0.55-1.3)
[2020-01-20 08:23] LABS: INR 1.57 (0.83-1.09); PROTHROMBIN TIME (PATIENT) 18.6 SEC (9.7-13.0)
[2020-01-20] MEDS: FERROUS SO4 325 MG TABLET (FP) PO SCH ×2 (09:31→16:38)
[2020-01-20] MEDS: RIVAROXABAN 20 MG TABLET PO SCH (09:31)
[2020-01-20] MEDS: PRAMIPEXOLE DIHYDROCHLORIDE 0.25 MG TABLET PO SCH ×2 (09:31→21:44)
--- NOTE | 2020-01-20 09:58 | CON.ID ---
Consult Consult Specialty:: infectious diseases Referred by:: Tisha Reason for Consultation:: fluid collection spinal region,sepsis - History of Present Illness Chief Complaint: back pain and leg pain History of Present Illness: 74 year old female with a past medical history of systolic congestive heart failure (EF 35-40%), RA, DM 2, HTN, Hx DVT/PE, a fib , known non-ischemic cardiomyopathy, multiple spine surgeries, s/p L4/5 laminectomy then L5/S1 seroma with recent epidural abscess drainage s/p I and D, complex wound closure and wound vac placement 11/[address] Borjas s/p IV abx who presented to the ER reporting a decreased appetite, lower abdominal pain, and with a generalized feeling of "being unwell". On presentation to the ER she was hypotensive with SBP 70-80's which improved with 1 liter of IVF. it was also noted that the patients drainage was empty and on manipulation by the staff the fluid started draining in the jostin drain and the fluid collection was drained and patient was feeling better currently she is uncomfortable on the leg patient started on ceftriaxone and the jostin is draining - History Source History Provided By: Patient Limitations to Obtaining History: No Limitations - Past Medical History INTEGRATED SPECIALIST: Yes: Syncope Cardio/Vascular: Yes: CHF, Deep Vein Thrombosis, HTN Pulmonary: Yes: Pulmonary Embolus ...: No Rheumatology: Yes: Rheumatoid Arthritis Endocrine: Yes: Diabetes Mellitus - Past Surgical History Past Surgical History: Yes: Bariatric Surgery (gastric band), Cholecystectomy, Hysterectomy, Joint Replacement (5 right hip replacements, 1 left hip replacement, bilateral TKR, left LTK with staph infection ), Laminectomy (back surgeries-reports 5, most rcent 06/19) - Alcohol/Substance Use Hx Alcohol Use: No - Smoking History Smoking history: Never smoked Have you smoked in the past 12 months: No Aproximately how many cigarettes per day: 0 If you are a former smoker, when did you quit?: 1966 - Social History Usual Living Arrangement: With Child ADL: Independent 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 History of Recent Travel: No Home Medications - Allergies Allergies/Adverse Reactions: Allergies Allergy/AdvReac Type Severity Reaction Status Date / Time levofloxacin [From Levaquin] Allergy Severe ANAPHYLAXIS Verified 12/26/19 13:30 methotrexate Allergy Severe Swelling Verified 12/26/19 13:30 Penicillins Allergy Mild Rash Verified 12/26/19 13:30 doxycycline Allergy Unknown Verified 12/26/19 13:30 bumetanide [From Bumex] Allergy Rash Verified 12/26/19 13:30 morphine AdvReac Mild Itching Verified 12/28/19 11:59 piperacillin sodium AdvReac Mild Itching Verified 12/26/19 13:30 [From Zosyn] tazobactam sodium AdvReac Mild Itching Verified 12/26/19 13:30 [From Zosyn] - Home Medications Home Medications: Ambulatory Orders Insulin Lispro Protamin/Lispro [Humalog Mix 75-25 Kwikpen] 22 unit SQ BIDAC 12/15/15 Zolpidem Tartrate [Ambien] 10 mg PO HS PRN 06/01/17 Leflunomide [Arava] 20 mg PO DAILY 07/26/18 Torsemide 50 mg PO DAILY 07/26/18 Baclofen 10 mg PO PRN PRN 07/16/19 Rivaroxaban [Xarelto -] 20 mg PO DAILY #30 tablet 10/03/19 Carvedilol [Coreg -] 12.5 mg PO BID 11/23/19 Gabapentin [Neurontin -] 600 mg PO TID 11/23/19 Diazepam 10 mg PO DAILY 12/28/19 Oxycodone HCl/Acetaminophen [Percocet 10-325 mg Tablet] 1 each PO QID 12/28/19 Pramipexole Di-HCl [Mirapex] 0.25 mg PO BID 12/28/19 Cyanocobalamin [Vitamin B12 -] 1,000 mcg PO DAILY #30 tablet 01/10/20 Ferrous Sulfate [Feosol] 325 mg PO BIDWM #60 ud 01/10/20 Sacubitril/Valsartan [Entresto 24 mg-26 mg Tablet] 1 each PO BID #60 tablet 01/10/20 Review of Systems - Review of Systems Constitutional: reports: Weakness, Other Eyes: reports: No Symptoms HENT: reports: No Symptoms Neck: reports: No Symptoms Cardiovascular: reports: No Symptoms Respiratory: reports: No Symptoms Gastrointestinal: reports: No Symptoms Genitourinary: reports: No Symptoms Musculoskeletal: reports: Back Pain Integumentary: reports: No Symptoms Neurological: reports: No Symptoms Endocrine: reports: No Symptoms Hematology/Lymphatic: reports: No Symptoms Psychiatric: reports: No Symptoms Physical Exam Vital Signs: Vital Signs Temperature 97.8 F 01/20/20 06:00 Pulse Rate 67 01/20/20 06:00 Respiratory Rate 20 01/20/20 06:00 Blood Pressure 133/71 01/20/20 06:00 O2 Sat by Pulse Oximetry (%) 96 01/20/20 01:41 Constitutional: Yes: Well Nourished, No Distress, Calm Eyes: Yes: Conjunctiva Clear, EOM Intact HENT: Yes: Atraumatic, Normocephalic Neck: Yes: Supple, Trachea Midline Cardiovascular: Yes: Regular Rate and Rhythm Respiratory: Yes: Regular, CTA Bilaterally Gastrointestinal: Yes: Normal Bowel Sounds, Soft Musculoskeletal: Yes: WNL Extremities: Yes: WNL Wound/Incision: Yes: Draining, Other (drain in place) Neurological: Yes: Alert, Oriented Psychiatric: Yes: Alert, Oriented Labs: CBC, BMP 01/20/20 06:45 01/20/20 06:00 Imaging - Results Chest X-ray: Report Reviewed, Image Reviewed Cat Scan: Report Reviewed, Image Reviewed Assessment/Plan patient with multiple medical problems with collection in the back comeing wiht generalized weakness and back pain and the drainage tube not functioning which ahs resolved looks like patient also has uti agree with ceftriaxone for now await for all results monitor drainage surgery to see the patient
[2020-01-20] MEDS ORDERED: TORSEMIDE 100 MG TABLET PO SCH (10:00)
[2020-01-20] MEDS ORDERED: CEFTRIAXONE 1 GM in DEXTROSE 5%-WATER - 50 ML IVPB SCH (10:00)
--- NOTE | 2020-01-20 10:25 | PN ---
Progress Note (short form) - Note Progress Note: 74F well known to [facility] now admitted w/loss of appetite and abdominal pain. Pt. has a large epidural deadspace which fills with non-infectious serous fluid. This is not the cause for admission. This is a chronic, stable condition. , pt. underwent IR imaging-guided drainage of the collection with placement of an indwelling catheter to facilitate drainage of collection. Per pt. and ER team, drain is blocked. Blocked drainage has cause egress of serous fluid from around the drain site. Since multiple intra-op tissue and fluid specimens have been negative for infection, this is not an abscess. The fluid collection is aseptic. Due to multiple lumbar spine I&D's with percutaneous drainage and drain placement, the patient has air-fluid levels in the collection, as seen on advanced imaging. This is to be expected, and thus there is no clinical correlation with a radiographic concern for gas gangrene. All labs and vitals reviewed. A/P: 74F well known to [facility] now admitted w/loss of appetite and abdominal pain. -Recommend IR consult ARLYN for lumbar spine fluid collection and replacement of functioning drain. -Surgery not indicated at this time; decompression and exposure of the thecal sac and nerve roots (which were previously thoroughly surgically decompressed) in the setting of a chronic, draining wound, could result in potentially fatal septic meningitis should the wound become infected. -RLE foot drop: Continue use of heel-offloading AFO splint for use in bed and functional AFO splint for ambulation; rolled towel under ankle to offload heal and mitigate risk for heel ulcer formation. -Care per primary medical hospitalist team & ID team; no plan for surgical debridement at this time. -Pain medication: recommend oxyocodone 10mg PO q6h PRN pain (patient has multiple orthopaedic problems). -Dry dressing changes as needed to prevent stool from tracking up wound. -Attentive perineal hygiene. -DVT PPx: -Mechanical: MARLON's, SCD's. -Chemical: Xarelto qD. -f/u AM labs. -Incentive spirometry. -PT/OT/Rehab, OOB at least once daily, ideally 2-3 times daily; passive R ankle dorsiflexion to prevent Achilles contracture. -WBAT B/L LE. -Advance diet as tolerated. -No heavy lifting (>5 lbs), bending or twisting. -B/L UE & LE NV checks. -Will follow. Luis Borjas MD (Orthopaedic Surgery).
[2020-01-20] MEDS ORDERED: cefTRIAXone SODIUM 1 GM VIAL ONE (10:44)
[2020-01-20] MEDS ORDERED: DEXTROSE 5%-WATER - 50 ML IVPB ONE (10:44)
[2020-01-20] MEDS: CYANOCOBALAMIN 1,000 MCG TABLET (FP) PO SCH (10:46)
[2020-01-20] MEDS: TORSEMIDE 20 MG TABLET (FP) PO SCH (10:46)
--- NOTE | 2020-01-20 11:32 | PN ---
Teaching Attending Note Name of Resident: Tati Mcgregor ATTENDING PHYSICIAN STATEMENT I saw and evaluated the patient. I reviewed the resident's note and discussed the case with the resident. I agree with the resident's findings and plan as documented. SUBJECTIVE: Seen and examined at bedside. Pigtail catheter observed to be draining. Per patient it has been emptied twice already this morning. Antibiotics broadened to vancomycin and meropenem given history of ESBL and multiple recent hospitalizations. ID consulted. OBJECTIVE: Last Vital Signs Temp Pulse Resp BP Pulse Ox 97.8 F 67 20 133/71 96 01/20/20 06:00 01/20/20 06:00 01/20/20 06:00 01/20/20 06:00 01/20/20 01:41 PE: per resident note Labs/Imaging: reviewed ASSESSMENT AND PLAN: 74 year old lady with history of CHF, RA, DM 2, HTN, Hx DVT/PE, a fib (on Xarelto), multiple spine surgeries, s/p L4/5 laminectomy then L5/S1 seroma with recent epidural abscess drainage s/p I and D - sent home on IV Rocephin via PICC 12/03 now returns with SOB , she was found to have acute CHF exa #UTI -Antibiotics broadened to renally dosed vancomycin and meropenem given history of ESBL and multiple recent hospitalizations. -ID consulted. -f/u cx #Epidural fluid Patient has extensive spinal surgical history including a large epidural space which fills with noninfectious serous fluid. It appears that the drain stopped working for several days resulting in reaccumulation of the fluid. Now noted to be draining adequately. -pigtail in place - IR to evaluate drain tomorrow - Dr. Borjas (spinal surgery) to evaluate patient tomorrow - has chronic R foot drop # CHF -cont home meds #ELIZABETH: resolved -likely 2/2 infection # Paroxysmal Atrial Fibrillation - continue Coreg and Xarelto # Hx PE/DVT s/p IVC filter - resume xarelto after procedure # DM 2: cont SSI. # H/o RA : on Leflunomide. # Normocytic Anemia - possible iron def with B12 def . MMA pending . cont iron further w/u as out pt # NICHOLE - needs out-patient follow up for CPAP machine DVT Px - on Xarelto. Dispo: pending results of urine culture and spinal surgery clearance
[2020-01-20] MEDS ORDERED: oxyCODONE HCL 5 MG TABLET PO PRN (11:58)
--- NOTE | 2020-01-20 14:01 | PN ---
Physical Exam: SUBJECTIVE: Patient seen and examined. C/o lumbar pain, radiating down RLE. OBJECTIVE: Vital Signs Period Temp Pulse Resp BP Sys/Marcelo Pulse Ox Last 24 Hr 97.5 F-98.1 F 67-91 18-20 76-133/32-77 96-99 GENERAL: The patient is awake, alert, and fully oriented, in no acute distress. HEENT: NCAT. Sclera & conjunctiva clear. MMM. LUNGS: Breath sounds equal, ctabl, no wheezes, no crackles. HEART: Regular rate and rhythm, S1, S2 without murmur, rub or gallop. ABDOMEN: Soft, NTND, + bowel sounds, no guarding EXTREMITIES: 2+ pulses, warm, well-perfused, no edema. 1+ DP RLE, 2+ DP LLE. Back: abscess w/ jostin drain in place draining yellow fluid SKIN: Warm, dry, normal turgor Laboratory Results - last 24 hr 01/19/20 01/19/20 01/19/20 12:30 12:30 12:30 WBC 7.9 RBC 4.42 Hgb 12.4 Hct 38.6 MCV 87.2 MCH 28.0 MCHC 32.1 RDW 19.7 H Plt Count 292 MPV 8.7 Absolute Neuts (auto) 4.4 Neutrophils % 55.6 Lymphocytes % 26.1 Monocytes % 11.5 H Eosinophils % 5.5 H Basophils % 1.3 Nucleated RBC % 0 PT with INR 25.50 H INR 2.14 H PTT (Actin FS) 38.5 H VBG pH POC VBG pCO2 POC VBG pO2 VBG HCO3 VBG O2 Sat (Michael) VBG Base Excess Sodium Potassium Chloride Carbon Dioxide Anion Gap BUN Creatinine Est GFR (CKD-EPI)AfAm Est GFR (CKD-EPI)NonAf POC Glucometer Random Glucose Lactic Acid Calcium Total Bilirubin AST ALT Alkaline Phosphatase Troponin I < 0.02 Total Protein Albumin Urine Color Urine Appearance Urine pH Ur Specific [place] Urine Protein Urine Glucose (UA) Urine Ketones Urine Blood Urine Nitrite Urine Bilirubin Urine Urobilinogen Ur Leukocyte Esterase Urine WBC (Auto) Urine RBC (Auto) Urine Casts (Auto) U Epithel Cells (Auto) Urine Bacteria (Auto) Blood Type Antibody Screen 01/19/20 01/19/20 01/19/20 12:30 12:30 12:30 WBC RBC Hgb Hct MCV MCH MCHC RDW Plt Count MPV Absolute Neuts (auto) Neutrophils % Lymphocytes % Monocytes % Eosinophils % Basophils % Nucleated RBC % PT with INR INR PTT (Actin FS) VBG pH 7.32 POC VBG pCO2 49.5 POC VBG pO2 < 49 H VBG HCO3 24.6 VBG O2 Sat (Michael) 60.8 L VBG Base Excess -1.9 Sodium 138 Potassium 4.7 Chloride 105 Carbon Dioxide 27 Anion Gap 7 L BUN 26.1 H Creatinine 1.6 H Est GFR (CKD-EPI)AfAm 36.67 Est GFR (CKD-EPI)NonAf 31.64 POC Glucometer Random Glucose 124 H Lactic Acid 2.1 H Calcium 8.8 Total Bilirubin 0.5 AST 11 L ALT 12 L Alkaline Phosphatase 146 H Troponin I Total Protein 7.6 Albumin 3.0 L Urine Color Urine Appearance Urine pH Ur Specific [address] [place] Urine Protein Urine Glucose (UA) Urine Ketones Urine Blood Urine Nitrite Urine Bilirubin Urine Urobilinogen Ur Leukocyte Esterase Urine WBC (Auto) Urine RBC (Auto) Urine Casts (Auto) U Epithel Cells (Auto) Urine Bacteria (Auto) Blood Type Antibody Screen 01/19/20 01/19/20 01/19/20 17:30 18:14 21:10 WBC RBC Hgb Hct MCV MCH MCHC RDW Plt Count MPV Absolute Neuts (auto) Neutrophils % Lymphocytes % Monocytes % Eosinophils % Basophils % Nucleated RBC % PT with INR INR PTT (Actin FS) VBG pH POC VBG pCO2 POC VBG pO2 VBG HCO3 VBG O2 Sat (Michael) VBG Base Excess Sodium Potassium Chloride Carbon Dioxide Anion Gap BUN Creatinine Est GFR (CKD-EPI)AfAm Est GFR (CKD-EPI)NonAf POC Glucometer Random Glucose Lactic Acid 1.0 Calcium Total Bilirubin AST ALT Alkaline Phosphatase Troponin I Total Protein Albumin Urine Color Yellow Urine Appearance Cloudy Urine pH 5.[address] 1.009 L Urine Protein Negative Urine Glucose (UA) Negative Urine Ketones Negative Urine Blood Trace Urine Nitrite Positive H Urine Bilirubin Negative Urine Urobilinogen 0.2 Ur Leukocyte Esterase 2+ H Urine WBC (Auto) 219 Urine RBC (Auto) 9 Urine Casts (Auto) 2 U Epithel Cells (Auto) 13 Urine Bacteria (Auto) >10,000 Blood Type O POSITIVE Antibody Screen Negative 06/14/20 06/14/20 06/14/20 06:00 06:03 06:45 WBC 5.5 RBC 3.91 Hgb 11.0 Hct 34.4 MCV 88.0 MCH 28.2 MCHC 32.1 RDW 19.5 H Plt Count 187 D MPV 8.4 Absolute Neuts (auto) Neutrophils % Lymphocytes % Monocytes % Eosinophils % Basophils % Nucleated RBC % PT with INR INR PTT (Actin FS) VBG pH POC VBG pCO2 POC VBG pO2 VBG HCO3 VBG O2 Sat (Michael) VBG Base Excess Sodium 138 Potassium 4.0 Chloride 105 Carbon Dioxide 24 Anion Gap 10 BUN 24.7 H Creatinine 1.1 Est GFR (CKD-EPI)AfAm 57.68 Est GFR (CKD-EPI)NonAf 49.77 POC Glucometer 92 Random Glucose 102 Lactic Acid Calcium 8.3 L Total Bilirubin AST ALT Alkaline Phosphatase Troponin I Total Protein Albumin Urine Color Urine Appearance Urine pH Ur Specific [address] [place] Urine Protein Urine Glucose (UA) Urine Ketones Urine Blood Urine Nitrite Urine Bilirubin Urine Urobilinogen Ur Leukocyte Esterase Urine WBC (Auto) Urine RBC (Auto) Urine Casts (Auto) U Epithel Cells (Auto) Urine Bacteria (Auto) Blood Type Antibody Screen 01/20/20 01/20/20 06:45 06:45 WBC RBC Hgb Hct MCV MCH MCHC RDW Plt Count MPV Absolute Neuts (auto) Neutrophils % Lymphocytes % Monocytes % Eosinophils % Basophils % Nucleated RBC % PT with INR 18.60 H INR 1.57 H PTT (Actin FS) VBG pH POC VBG pCO2 POC VBG pO2 VBG HCO3 VBG O2 Sat (Michael) VBG Base Excess Sodium Potassium Chloride Carbon Dioxide Anion Gap BUN Creatinine Est GFR (CKD-EPI)AfAm Est GFR (CKD-EPI)NonAf POC Glucometer Random Glucose Lactic Acid 0.8 Calcium Total Bilirubin AST ALT Alkaline Phosphatase Troponin I Total Protein Albumin Urine Color Urine Appearance Urine pH Ur Specific [address] [place] Urine Protein Urine Glucose (UA) Urine Ketones Urine Blood Urine Nitrite Urine Bilirubin Urine Urobilinogen Ur Leukocyte Esterase Urine WBC (Auto) Urine RBC (Auto) Urine Casts (Auto) U Epithel Cells (Auto) Urine Bacteria (Auto) Blood Type Antibody Screen Active Medications Generic Name Dose Route Start Last Admin Trade Name Freq PRN Reason Stop Dose Admin Acetaminophen 325 mg 01/20/20 04:45 01/20/20 09:30 Tylenol - PO 01/20/20 22:06 325 mg Q4H PRN Administration PAIN LEVEL 6-10 Cyanocobalamin 1,000 mcg 01/20/20 10:00 01/20/20 10:46 Vitamin B12 - PO 1,000 mcg DAILY LISA Administration Ferrous Sulfate 325 mg 01/20/20 08:00 01/20/20 09:31 Feosol - PO 325 mg BIDWM LISA Administration Gabapentin 600 mg 01/20/20 06:00 01/20/20 06:15 Neurontin - PO Not Given TID LISA Meropenem 1 gm/ Dextrose 100 mls @ 200 mls/hr 01/20/20 11:30 IVPB Q12H LISA Oxycodone HCl 10 mg 01/20/20 11:58 Roxicodone - PO 01/20/20 22:06 Q6H PRN PAIN LEVEL 6-10 Pramipexole Dihydrochloride 0.25 mg 01/20/20 10:00 01/20/20 09:31 Mirapex - PO 0.25 mg BID LISA Administration Rivaroxaban 20 mg 01/20/20 10:00 01/20/20 09:31 Xarelto PO Not Given DAILY LISA Torsemide 50 mg 01/20/20 10:00 01/20/20 10:46 Demadex - PO 50 mg DAILY LISA Administration IMAGING: * CXR 01/18: Compared to prior chest x-ray dated 12/26/2019 Previously visualized right subclavian central venous catheter has been removed. The lung is clear without evidence of a pneumothorax or pleural effusion. The cardiac silhouette remains within normal limits in size. * CT A/P 01/18: Status post gastric banding. Left adrenal nodule measuring 1.3 cm likely representing an adrenal adenoma. 1.2 cm right renal upper pole lesion of indeterminate consistency. Further evaluation with renal ultrasound is needed. There is no evidence of small bowel obstruction. * CT T/L spine 01/18: Status post op, as described above. In comparison to prior MRI of the lumbar spine dated 01/02/2020, there is interval increase in size of previously visualized large posterior collection with air, extending to the subcutaneous fat as well as to the posterior epidural space. A posterior drainage catheter is present at L3-L4 level. Cannot rule out superimposed infection Correlate clinically to determine further evaluation. ASSESSMENT/PLAN: 74 y.o. F PMH CHF (EF 35-40%), RA, DM 2, HTN, Hx DVT/PE, a fib (on Xarelto), known non-ischemic cardiomyopathy, multiple spine surgeries, s/p L4/5 laminectomy then L5/S1 seroma with recent epidural abscess drainage s/p I and D, complex wound closure and wound vac placement 11/26 s/p 5 weeks antibiotics via PICC (rocephin), recently d/c'd for CHF exacerbation on 01/09 & sent home w/ home VNS. Presenting on this admission for lower abdominal and back pain admitted for sepsis #Sepsis 2/2 expanding epidural abscess vs UTI -hypotension resolved, continue frequent bp monitoring -holding home Ambien, Diazepam & BP meds in setting of hypotension -Lactic acid 2.1 on admission now WNL -UA: 2+ LE, >10^3 bacteria, + nitrites, trace blood -continue abx: on meropenem for UTI (has hx of ESBL infxns)- renally dosed -s/p 500cc NS in ED- avoid overhydration in setting of recent chf exacerbation -f/u blood & urine cultures -CT A/P: incr size of epidural abscess collection -Back pigtail drain now draining -F/u IR for further drain recommendations -pain control: Oxy 10mg Q6 PRN, tylenol #ELIZABETH -Cr 1.6 on admission (1.2 on most recent d/c labs, ~1.0 baseline) -s/p 500cc NS bolus -Cr now 1.1 -holding entresto; can resume if repeat bmp and BP are stable -renally dose medications -avoid nephrotoxic substances #Paroxysmal Atrial Fibrillation -holding Coreg in setting of hypotension -Xarelto 20mg daily #Hx PE/DVT -c/w Xarelto #DM -HbA1c 9.0% -BGMs, ISS ACHS -hold home oral agents #RA -c/w Leflunomide #Normocytic Anemia -2/2 to anemia of chronic disease -continue feosol -h&h stable, continue to monitor cbc #NICHOLE -not treated, pt has not followed up for cpap therapy #DVT PPX on Xarelto #FEN -no standing fluids -monitor lytes -NPO pending drain eval Dispo: -cont to monitor on med surg Visit type - Emergency Visit Emergency Visit: No - New Patient This patient is new to me today: No - Critical Care Critical Care patient: No ATTENDING PHYSICIAN STATEMENT I saw and evaluated the patient. I reviewed the resident's note and discussed the case with the resident. I agree with the resident's findings and plan as documented. SUBJECTIVE: OBJECTIVE: ASSESSMENT AND PLAN:
[2020-01-20] MEDS ORDERED: MEROPENEM 1 GM VIAL (RESTRICTED TO ID) IVPB ONE (14:34)
[2020-01-20] MEDS ORDERED: DEXTROSE 5%-WATER 100 ML IVPB ONE (14:34)
[2020-01-20] MEDS: MEROPENEM 1 GM in DEXTROSE 5%-WATER 100 ML IVPB SCH (14:36)
--- NOTE | 2020-01-20 15:05 | EKG ---
Test Reason : Blood Pressure : / mmHG Vent. Rate : 080 BPM Atrial Rate : 081 BPM P-R Int : 000 ms QRS Dur : 076 ms QT Int : 378 ms P-R-T Axes : 000 067 014 degrees QTc Int : 435 ms POOR DATA QUALITY, INTERPRETATION MAY BE ADVERSELY AFFECTED ACCELERATED JUNCTIONAL RHYTHM LOW VOLTAGE QRS CANNOT RULE OUT ANTERIOR INFARCT , AGE UNDETERMINED ABNORMAL ECG WHEN COMPARED WITH ECG OF 28-DEC-2019 18:48, JUNCTIONAL RHYTHM HAS REPLACED ATRIAL FIBRILLATION T WAVE INVERSION LESS EVIDENT IN INFERIOR LEADS Confirmed by Margie Brennan ([id number]) on 01/20/2020 3:05:13 PM Referred By: Confirmed By:Margie Brennan
[2020-01-20] MEDS: GABAPENTIN 300 MG CAPSULE PO SCH (21:45)
[2020-01-20] MEDS: ZOLPIDEM TARTRATE 5 MG TABLET PO PRN (23:36)
[2020-01-21] MEDS ORDERED: DEXTROSE 5%-WATER 100 ML IVPB ONE ×2 (03:07→16:09)
[2020-01-21] MEDS ORDERED: MEROPENEM 1 GM VIAL (RESTRICTED TO ID) IVPB ONE ×2 (03:07→16:08)
[2020-01-21] MEDS: MEROPENEM 1 GM in DEXTROSE 5%-WATER 100 ML IVPB SCH ×2 (03:13→16:25)
[2020-01-21] MEDS: GABAPENTIN 300 MG CAPSULE PO SCH ×3 (05:57→22:01)
[2020-01-21 08:07] LABS: HEMATOCRIT 35.7 % (32.4-45.2); HEMOGLOBIN 11.6 GM/dL (10.7-15.3); MCH 27.7 pg (25.7-33.7); MCHC 32.5 g/dl (32.0-36.0); MEAN CELL VOLUME 85.4 fl (80-96); MEAN PLT VOLUME 8.2 fl (7.5-11.1); PLATELET COUNT 231 K/MM3 (134-434); RBC 4.18 M/mm3 (3.60-5.2); RDW 19.5 % (11.6-15.6); WHITE BLOOD COUNT 6.1 K/mm3 (4.0-10.0)
[2020-01-21 08:32] LABS: ALBUMIN 2.6 g/dl (3.4-5.0); BILIRUBIN,TOTAL 0.5 mg/dL (0.2-1); BLOOD UREA NITROGEN 24.3 mg/dL (7-18); CALCIUM 8.6 mg/dL (8.5-10.1); CREATININE 1.1 mg/dL (0.55-1.3); TOT PROT 6.8 g/dl (6.4-8.2)
[2020-01-21] MEDS: FERROUS SO4 325 MG TABLET (FP) PO SCH ×2 (08:37→18:40)
--- NOTE | 2020-01-21 09:42 | PN ---
Progress Note, Physician History of Present Illness: does not feel good today nauseous not able to eat blood cx positive now - Current Medication List Current Medications: Active Medications Cyanocobalamin (Vitamin B12 -) 1,000 mcg PO DAILY [facility] Last Admin: 01/20/20 10:46 Dose: 1,000 mcg Documented by: Ferrous Sulfate (Feosol -) 325 mg PO BIDWM [facility] Last Admin: 01/21/20 08:37 Dose: 325 mg Documented by: Gabapentin (Neurontin -) 600 mg PO TID [facility] Last Admin: 01/21/20 05:57 Dose: 600 mg Documented by: Meropenem 1 gm/ Dextrose 100 mls @ 200 mls/hr IVPB Q12H [facility] Leflunomide (Arava -) 20 mg PO DAILY [facility] Pramipexole Dihydrochloride (Mirapex -) 0.25 mg PO BID [facility] Last Admin: 01/20/20 21:44 Dose: 0.25 mg Documented by: Rivaroxaban (Xarelto) 20 mg PO DAILY [facility] Last Admin: 01/20/20 09:31 Dose: Not Given Documented by: Torsemide (Demadex -) 50 mg PO DAILY [facility] Last Admin: 01/20/20 10:46 Dose: 50 mg Documented by: Zolpidem Tartrate (Ambien -) 5 mg PO HS PRN PRN Reason: INSOMNIA Last Admin: 01/20/20 23:36 Dose: 5 mg Documented by: - Objective Vital Signs: Vital Signs Temperature 98.7 F 01/21/20 05:40 Pulse Rate 68 01/21/20 05:40 Respiratory Rate 18 01/21/20 05:40 Blood Pressure 118/67 01/21/20 05:40 O2 Sat by Pulse Oximetry (%) 98 01/20/20 20:02 Constitutional: Yes: Calm, Mild Distress Eyes: Yes: Conjunctiva Clear HENT: Yes: Atraumatic, Normocephalic Cardiovascular: Yes: S1, S2 Respiratory: Yes: Regular, CTA Bilaterally Gastrointestinal: Yes: Normal Bowel Sounds, Soft Musculoskeletal: Yes: Other Extremities: Yes: Other Neurological: Yes: Alert, Oriented Labs: CBC, BMP 01/21/20 07:02 01/21/20 07:02 INR, PTT INR 1.57 (0.83-1.09) H 01/20/20 06:45 Assessment/Plan patient now with blood cx positive drain noted 1 please send the drainage for cx continue meropenam repeat urine close watch also repeat crp and esr
[2020-01-21] MEDS: LEFLUNOMIDE 10 MG TABLET PO SCH (09:56)
[2020-01-21] MEDS: PRAMIPEXOLE DIHYDROCHLORIDE 0.25 MG TABLET PO SCH ×2 (09:56→22:00)
[2020-01-21] MEDS: RIVAROXABAN 20 MG TABLET PO SCH (09:56)
[2020-01-21] MEDS: CYANOCOBALAMIN 1,000 MCG TABLET (FP) PO SCH (09:56)
[2020-01-21] MEDS: TORSEMIDE 20 MG TABLET (FP) PO SCH ×2 (09:57→11:25)
[2020-01-21] MEDS ORDERED: diphenhydrAMINE HCL 25 MG CAPSULE (FP) PO ONE (11:58)
--- NOTE | 2020-01-21 12:03 | PN ---
Teaching Attending Note Name of Resident: Tati Mcgregor ATTENDING PHYSICIAN STATEMENT I saw and evaluated the patient. I reviewed the resident's note and discussed the case with the resident. I agree with the resident's findings and plan as documented. SUBJECTIVE: Bedside. Patient complains of mild nausea and lack of appetite. Blood culture came back positive for gram-negative rods in 1 out of 2 bottles this morning. Discharge from the pigtail catheter, per nursing and ID, appeared more purulent today. Will obtain culture from fluid, as well as ESR and CRP. Spinal to see patient this afternoon. OBJECTIVE: Last Vital Signs Temp Pulse Resp BP Pulse Ox 98.7 F 68 18 118/67 98 01/21/20 05:40 01/21/20 05:40 01/21/20 05:40 01/21/20 05:40 01/20/20 20:02 PE: per resident note Labs/Imaging: reviewed ASSESSMENT AND PLAN: 74 year old lady with history of CHF, RA, DM 2, HTN, Hx DVT/PE, a fib (on Xarelto), multiple spine surgeries, s/p L4/5 laminectomy then L5/S1 seroma with recent epidural abscess drainage s/p I and D - sent home on IV Rocephin via PICC 12/03 now returns with SOB , she was found to have acute CHF exa #UTI/positive blood cx GNR Initial culture contaminated. Will repeat UA and urine culture Continue meropenem -Antibiotics broadened to renally dosed vancomycin and meropenem given history of ESBL and multiple recent hospitalizations. -ID consulted. -f/u cx #Epidural fluid Patient has extensive spinal surgical history including a large epidural s pace which has filled with noninfectious serous fluid in the past. Currently with +Blood cx and purulent appearing fluid. It appears that the drain stopped working for several days resulting in reaccumulation of the fluid. Now noted to be draining adequately. -pigtail in place - Dr. Borjas (spinal surgery) to evaluate patient - has chronic R foot drop # CHF -cont home meds #ELIZABETH: resolved -likely 2/2 infection # Paroxysmal Atrial Fibrillation - continue Coreg and Xarelto # Hx PE/DVT s/p IVC filter - resume xarelto after procedure # DM 2: cont SSI. # H/o RA : on Leflunomide. # Normocytic Anemia - possible iron def with B12 def . MMA pending . cont iron further w/u as out pt # NICHOLE - needs out-patient follow up for CPAP machine DVT Px - on Xarelto. Dispo: pending results of urine culture and spinal surgery clearance
--- NOTE | 2020-01-21 12:50 | PN ---
Physical Exam: SUBJECTIVE: Patient seen and examined. C/o continued back pain. OBJECTIVE: Vital Signs Period Temp Pulse Resp BP Sys/Marcelo Pulse Ox Last 24 Hr 98.0 F-98.9 F 55-68 18-18 118-132/52-68 98 GENERAL: The patient is awake, alert, and fully oriented, in no acute distress. LUNGS: Breath sounds equal, ctabl, no wheezes, no crackles. HEART: Regular rate and rhythm, S1, S2 without murmur, rub or gallop. ABDOMEN: Soft, NTND, + bowel sounds, no guarding EXTREMITIES: 2+ pulses, warm, well-perfused, trace edema b/l LEs Back: abscess w/ jostin drain in place draining yellow/ pustular fluid SKIN: Warm, dry Laboratory Results - last 24 hr 01/20/20 01/21/20 01/21/20 21:52 05:34 07:02 WBC 6.1 RBC 4.18 Hgb 11.6 Hct 35.7 MCV 85.4 MCH 27.7 MCHC 32.5 RDW 19.5 H Plt Count 231 D MPV 8.2 Sodium Potassium Chloride Carbon Dioxide Anion Gap BUN Creatinine Est GFR (CKD-EPI)AfAm Est GFR (CKD-EPI)NonAf POC Glucometer 129 199 Random Glucose Calcium Total Bilirubin AST ALT Alkaline Phosphatase C-Reactive Protein Total Protein Albumin 01/21/20 01/21/20 07:02 11:41 WBC RBC Hgb Hct MCV MCH MCHC RDW Plt Count MPV Sodium 136 Potassium 4.0 Chloride 101 Carbon Dioxide 25 Anion Gap 10 BUN 24.3 H Creatinine 1.1 Est GFR (CKD-EPI)AfAm 57.68 Est GFR (CKD-EPI)NonAf 49.77 POC Glucometer 199 Random Glucose 169 H Calcium 8.6 Total Bilirubin 0.5 AST 16 ALT 16 Alkaline Phosphatase 192 H C-Reactive Protein 14.0 H Total Protein 6.8 Albumin 2.6 L Active Medications Generic Name Dose Route Start Last Admin Trade Name Freq PRN Reason Stop Dose Admin Cyanocobalamin 1,000 mcg 01/20/20 10:00 01/21/20 09:56 Vitamin B12 - PO 1,000 mcg DAILY LISA Administration Docusate Sodium 100 mg 01/21/20 11:58 Colace - PO Q8H PRN CONSTIPATION Ferrous Sulfate 325 mg 01/20/20 08:00 01/21/20 08:37 Feosol - PO 325 mg BIDWM LISA Administration Gabapentin 600 mg 01/20/20 22:00 01/21/20 05:57 Neurontin - PO 600 mg TID LISA Administration Meropenem 1 gm/ Dextrose 100 mls @ 200 mls/hr 01/20/20 11:30 IVPB Q12H LISA Leflunomide 20 mg 01/21/20 10:00 01/21/20 09:56 Arava - PO 20 mg DAILY LISA Administration Pramipexole Dihydrochloride 0.25 mg 01/20/20 10:00 01/21/20 09:56 Mirapex - PO 0.25 mg BID LISA Administration Rivaroxaban 20 mg 01/20/20 10:00 01/21/20 09:56 Xarelto PO 20 mg DAILY LISA Administration Torsemide 50 mg 01/20/20 10:00 01/21/20 11:25 Demadex - PO Not Given DAILY LISA Zolpidem Tartrate 5 mg 01/20/20 22:08 01/20/20 23:36 Ambien - PO 5 mg HS PRN Administration INSOMNIA ASSESSMENT/PLAN: 74 y.o. F PMH CHF (EF 35-40%), RA, DM 2, HTN, Hx DVT/PE, a fib (on Xarelto), known non-ischemic cardiomyopathy, multiple spine surgeries, s/p L4/5 laminectomy then L5/S1 seroma with recent epidural abscess drainage s/p I and D, complex wound closure and wound vac placement 11/26 s/p 5 weeks antibiotics via PICC (rocephin), recently d/c'd for CHF exacerbation on 01/09 & sent home w/ home VNS. Presenting on this admission for lower abdominal and back pain admitted for sepsis #Sepsis 2/2 expanding epidural abscess vs UTI -hypotension resolved, continue frequent bp monitoring -holding home Diazepam & BP meds in setting of hypotension -Lactic acid 2.1 on admission now WNL -UA: 2+ LE, >10^3 bacteria, + nitrites, trace blood -continue abx: on meropenem for UTI (has hx of ESBL infxns)- renally dosed- started 01/19 -CT A/P: incr size of epidural abscess collection -Back pigtail drain now draining, pustular fluid today -blood cx's growing Gm neg bacilli x 1 bottle -sending JOSTIN drain fluid for culture -f/u repeat urine cultures (1st contaminated), ESR, CRP -F/u IR for further drain recommendations -pain control: Oxy 10mg Q6 PRN, tylenol #ELIZABETH -Cr 1.6 on admission (1.2 on most recent d/c labs, ~1.0 baseline) -s/p 500cc NS bolus -Cr now 1.1, stable -holding entresto -renally dose medications -avoid nephrotoxic substances #Paroxysmal Atrial Fibrillation -holding Coreg in setting of hypotension -Xarelto 20mg daily #Hx PE/DVT -c/w Xarelto #DM -HbA1c 9.0% -BGMs, ISS ACHS -hold home oral agents #RA -c/w Leflunomide #Normocytic Anemia -2/2 to anemia of chronic disease -continue feosol -h&h stable, continue to monitor cbc #NICHOLE -not treated, pt has not followed up for cpap therapy #DVT PPX on Xarelto #FEN -no standing fluids -monitor lytes -diabetic/ na controlled diet Dispo: -cont to monitor on med surg Visit type - Emergency Visit Emergency Visit: No - New Patient This patient is new to me today: No - Critical Care Critical Care patient: No ATTENDING PHYSICIAN STATEMENT I saw and evaluated the patient. I reviewed the resident's note and discussed the case with the resident. I agree with the resident's findings and plan as documented. SUBJECTIVE: OBJECTIVE: ASSESSMENT AND PLAN:
[2020-01-21 13:09] LABS: EPI CELLS 10 /uL (0-25.1); HYALINE CASTS 2 /uL (0-3.1); URINE APPEARANCE CLEAR; URINE BACTERIA 75 /uL (0-1359); URINE BILIRUBIN NEGATIVE (NEGATIVE); URINE COLOR YELLOW; URINE GLUCOSE (UA) NEGATIVE (NEGATIVE); URINE KETONE NEGATIVE (NEGATIVE); URINE LEUK ESTERASE 1+ (NEGATIVE); URINE NITRITE NEGATIVE (NEGATIVE); URINE PROTEIN NEGATIVE (NEGATIVE); URINE RBC 2 /uL (0-23.9); URINE UROBILINOGEN 0.2 mg/dL (0.2-1.0); URINE WBC 41 /uL (0-25.8)
[2020-01-21] MEDS: DOCUSATE SODIUM 100 MG CAPSULE (FP) PO PRN ×2 (14:37→23:10)
[2020-01-21] MEDS ORDERED: oxyCODONE HCL 5 MG TABLET PO ONE (22:57)
[2020-01-22] MEDS ORDERED: MEROPENEM 1 GM VIAL (RESTRICTED TO ID) IVPB ONE ×2 (02:54→15:22)
[2020-01-22] MEDS ORDERED: DEXTROSE 5%-WATER 100 ML IVPB ONE ×2 (02:54→15:22)
[2020-01-22] MEDS: MEROPENEM 1 GM in DEXTROSE 5%-WATER 100 ML IVPB SCH ×2 (02:57→15:27)
[2020-01-22] MEDS: GABAPENTIN 300 MG CAPSULE PO SCH ×3 (05:26→21:20)
[2020-01-22 08:05] LABS: ALBUMIN 2.4 g/dl (3.4-5.0); BILIRUBIN,TOTAL 0.4 mg/dL (0.2-1); BLOOD UREA NITROGEN 20.9 mg/dL (7-18); CALCIUM 8.5 mg/dL (8.5-10.1); CREATININE 0.8 mg/dL (0.55-1.3); POTASSIUM 4.5 mmol/L (3.5-5.1); TOT PROT 6.4 g/dl (6.4-8.2)
[2020-01-22] MEDS ORDERED: PT OWN MED DRAWER 7, Y5N ONE (09:16)
[2020-01-22] MEDS: DOCUSATE SODIUM 100 MG CAPSULE (FP) PO PRN (09:18)
[2020-01-22] MEDS: RIVAROXABAN 20 MG TABLET PO SCH (09:18)
[2020-01-22] MEDS: FERROUS SO4 325 MG TABLET (FP) PO SCH ×2 (09:18→16:47)
[2020-01-22] MEDS: PRAMIPEXOLE DIHYDROCHLORIDE 0.25 MG TABLET PO SCH ×2 (09:19→21:20)
[2020-01-22] MEDS: CYANOCOBALAMIN 1,000 MCG TABLET (FP) PO SCH (09:19)
[2020-01-22] MEDS: LEFLUNOMIDE 10 MG TABLET PO SCH (09:19)
[2020-01-22] MEDS: TORSEMIDE 20 MG TABLET (FP) PO SCH (09:22)
--- NOTE | 2020-01-22 11:42 | PN ---
Physical Exam: SUBJECTIVE: Patient seen and examined at bedside. Feels relatively well. No acute events. OBJECTIVE: Vital Signs Period Temp Pulse Resp BP Sys/Marcelo Pulse Ox Last 24 Hr 98.2 F-99.6 F 9-95 18-20 112-128/50-73 96-97 Gen: AAO x 3, NAD HEENT: NCAT, eomi Neck: supple, no jvd Cardio: rrr, norm s1s2, no mrg noted Pulm: CTA b/l Abd: obese, soft, nontender Back: incision dressing cdi, DASH drain with 5 ml purulent fluid Ext: no edema Laboratory Results - last 24 hr 01/19/20 01/21/20 01/21/20 23:40 07:02 07:04 WBC Corrected WBC (auto) RBC Hgb Hct MCV MCH MCHC RDW Plt Count MPV Manual Slide Review Platelet Comment ESR 88 H Sodium Potassium Chloride Carbon Dioxide Anion Gap BUN Creatinine Est GFR (CKD-EPI)AfAm Est GFR (CKD-EPI)NonAf POC Glucometer Random Glucose Calcium Total Bilirubin AST ALT Alkaline Phosphatase C-Reactive Protein 14.0 H Total Protein Albumin Urine Color Urine Appearance Urine pH Ur Specific [place] Urine Protein Urine Glucose (UA) Urine Ketones Urine Blood Urine Nitrite Urine Bilirubin Urine Urobilinogen Ur Leukocyte Esterase Urine WBC (Auto) Urine RBC (Auto) Urine Casts (Auto) U Epithel Cells (Auto) Urine Bacteria (Auto) COVID-19 (MATA) Not detected 01/21/20 01/21/20 01/21/20 11:41 12:15 16:45 WBC Corrected WBC (auto) RBC Hgb Hct MCV MCH MCHC RDW Plt Count MPV Manual Slide Review Platelet Comment ESR Sodium Potassium Chloride Carbon Dioxide Anion Gap BUN Creatinine Est GFR (CKD-EPI)AfAm Est GFR (CKD-EPI)NonAf POC Glucometer 199 186 Random Glucose Calcium Total Bilirubin AST ALT Alkaline Phosphatase C-Reactive Protein Total Protein Albumin Urine Color Yellow Urine Appearance Clear Urine pH 5.0 Ur Specific [place] 1.008 L Urine Protein Negative Urine Glucose (UA) Negative Urine Ketones Negative Urine Blood Negative Urine Nitrite Negative Urine Bilirubin Negative Urine Urobilinogen 0.2 Ur Leukocyte Esterase 1+ H Urine WBC (Auto) 41 Urine RBC (Auto) 2 Urine Casts (Auto) 2 U Epithel Cells (Auto) 10 Urine Bacteria (Auto) 75 COVID-19 (MATA) 01/21/20 01/22/20 01/22/20 23:56 05:31 06:25 WBC Cancelled Corrected WBC (auto) Cancelled RBC Cancelled Hgb Cancelled Hct Cancelled MCV Cancelled MCH Cancelled MCHC Cancelled RDW Cancelled Plt Count Cancelled MPV Cancelled Manual Slide Review Cancelled Platelet Comment Cancelled ESR Sodium Potassium Chloride Carbon Dioxide Anion Gap BUN Creatinine Est GFR (CKD-EPI)AfAm Est GFR (CKD-EPI)NonAf POC Glucometer 193 179 Random Glucose Calcium Total Bilirubin AST ALT Alkaline Phosphatase C-Reactive Protein Total Protein Albumin Urine Color Urine Appearance Urine pH Ur Specific [place] Urine Protein Urine Glucose (UA) Urine Ketones Urine Blood Urine Nitrite Urine Bilirubin Urine Urobilinogen Ur Leukocyte Esterase Urine WBC (Auto) Urine RBC (Auto) Urine Casts (Auto) U Epithel Cells (Auto) Urine Bacteria (Auto) COVID-19 (MATA) 01/22/20 06:25 WBC Corrected WBC (auto) RBC Hgb Hct MCV MCH MCHC RDW Plt Count MPV Manual Slide Review Platelet Comment ESR Sodium 132 L Potassium 4.5 Chloride 99 Carbon Dioxide 24 Anion Gap 9 BUN 20.9 H Creatinine 0.8 Est GFR (CKD-EPI)AfAm 84.77 Est GFR (CKD-EPI)NonAf 73.14 POC Glucometer Random Glucose 161 H Calcium 8.5 Total Bilirubin 0.4 AST 18 ALT 10 L Alkaline Phosphatase 158 H C-Reactive Protein Total Protein 6.4 Albumin 2.4 L Urine Color Urine Appearance Urine pH Ur Specific [place] Urine Protein Urine Glucose (UA) Urine Ketones Urine Blood Urine Nitrite Urine Bilirubin Urine Urobilinogen Ur Leukocyte Esterase Urine WBC (Auto) Urine RBC (Auto) Urine Casts (Auto) U Epithel Cells (Auto) Urine Bacteria (Auto) COVID-19 (MATA) Active Medications Generic Name Dose Route Start Last Admin Trade Name Freq PRN Reason Stop Dose Admin Cyanocobalamin 1,000 mcg 01/20/20 10:00 01/22/20 09:19 Vitamin B12 - PO 1,000 mcg DAILY LISA Administration Docusate Sodium 100 mg 01/21/20 11:58 01/22/20 09:18 Colace - PO 100 mg Q8H PRN Administration CONSTIPATION Ferrous Sulfate 325 mg 01/20/20 08:00 01/22/20 09:18 Feosol - PO 325 mg BIDWM LISA Administration Gabapentin 600 mg 01/20/20 22:00 01/22/20 05:26 Neurontin - PO 600 mg TID LISA Administration Meropenem 1 gm/ Dextrose 100 mls @ 200 mls/hr 01/21/20 15:00 01/22/20 02:57 IVPB 200 mls/hr Q12H LISA Administration Leflunomide 20 mg 01/21/20 10:00 01/22/20 09:19 Arava - PO 20 mg DAILY LISA Administration Pramipexole Dihydrochloride 0.25 mg 01/20/20 10:00 01/22/20 09:19 Mirapex - PO 0.25 mg BID LISA Administration Rivaroxaban 20 mg 01/20/20 10:00 01/22/20 09:18 Xarelto PO 20 mg DAILY LISA Administration Torsemide 50 mg 01/20/20 10:00 01/22/20 09:22 Demadex - PO Not Given DAILY LISA Zolpidem Tartrate 5 mg 01/20/20 22:08 01/20/20 23:36 Ambien - PO 5 mg HS PRN Administration INSOMNIA ASSESSMENT/PLAN: 74 y.o. F PMH CHF (EF 35-40%), RA, DM 2, HTN, Hx DVT/PE, a fib (on Xarelto), known non-ischemic cardiomyopathy, multiple spine surgeries, s/p L4/5 laminectomy then L5/S1 seroma with recent epidural abscess drainage s/p I and D, complex wound closure and wound vac placement 11/26 s/p 5 weeks antibiotics via PICC (rocephin), recently d/c'd for CHF exacerbation on 01/09 & sent home w/ home VNS. Presenting on this admission for lower abdominal and back pain admitted for sepsis #Sepsis 2/2 expanding epidural abscess vs UTI -hypotension resolved, continue frequent bp monitoring -holding home Diazepam & BP meds in setting of hypotension -Lactic acid 2.1 on admission now WNL -UA: 2+ LE, >10^3 bacteria, + nitrites, trace blood -continue abx: on meropenem for UTI (has hx of ESBL infxns)- renally dosed- started 01/19 -CT A/P: incr size of epidural abscess collection -Back pigtail drain now draining -blood cx's growing Gm neg bacilli x 1 bottle. Repeat BCx pending -DASH drain fluid cultures pending -f/u repeat urine cultures (1st contaminated) -F/u IR/Surgery for further drain/wound recommendations -pain control: Oxy 10mg Q6 PRN, tylenol #ELIZABETH -Cr 1.6 on admission (1.2 on most recent d/c labs, ~1.0 baseline) -s/p 500cc NS bolus -will repeat labs today -holding entresto -renally dose medications -avoid nephrotoxic substances #Paroxysmal Atrial Fibrillation -holding Coreg in setting of hypotension -Xarelto 20mg daily #Hx PE/DVT -c/w Xarelto #DM -HbA1c 9.0% -BGMs, ISS ACHS -hold home oral agents #RA -c/w Leflunomide #Normocytic Anemia -2/2 to anemia of chronic disease -continue feosol -h&h stable, continue to monitor cbc #NICHOLE -not treated, pt has not followed up for cpap therapy #DVT PPX on Xarelto #FEN -no standing fluids -monitor lytes -diabetic/ na controlled diet Dispo: -cont to monitor on med surg Visit type - Emergency Visit Emergency Visit: No - New Patient This patient is new to me today: Yes Date on this admission: 01/22/20 - Critical Care Critical Care patient: No ATTENDING PHYSICIAN STATEMENT I saw and evaluated the patient. I reviewed the resident's note and discussed the case with the resident. I agree with the resident's findings and plan as documented. SUBJECTIVE: OBJECTIVE: ASSESSMENT AND PLAN:
[2020-01-22 14:02] LABS: BASO % 0.7 % (0-2.0); EOS % 4.1 % (0-4.5); HEMATOCRIT 37.3 % (32.4-45.2); HEMOGLOBIN 11.9 GM/dL (10.7-15.3); LYMPH % 18.7 % (8-40); MCH 27.3 pg (25.7-33.7); MCHC 31.9 g/dl (32.0-36.0); MEAN CELL VOLUME 85.4 fl (80-96); MEAN PLT VOLUME 8.1 fl (7.5-11.1); MONO % 11.2 % (3.8-10.2); NEUT % 65.3 % (42.8-82.8); PLATELET COUNT 257 K/MM3 (134-434); RBC 4.36 M/mm3 (3.60-5.2); RDW 19.1 % (11.6-15.6); WHITE BLOOD COUNT 7.3 K/mm3 (4.0-10.0)
[2020-01-22 15:00] LABS: ALBUMIN 2.7 g/dl (3.4-5.0); BILIRUBIN,TOTAL 0.6 mg/dL (0.2-1); BLOOD UREA NITROGEN 22.7 mg/dL (7-18); CALCIUM 8.7 mg/dL (8.5-10.1); POTASSIUM 4.9 mmol/L (3.5-5.1); TOT PROT 7.1 g/dl (6.4-8.2)
--- NOTE | 2020-01-22 15:08 | CON.CARD ---
Consult Consult Specialty:: cardiology - History of Present Illness History of Present Illness: 74 y.o. woman with PMH CHF (EF 35-40%), RA, DM 2, HTN, Hx DVT/PE, a fib (on Xarelto), known non-ischemic cardiomyopathy, multiple spine surgeries, s/p L4/5 laminectomy then L5/S1 seroma with recent epidural abscess drainage s/p I and D, complex wound closure and wound vac placement 11/26-s/p IV abx presenting with weakness and decreased appetite since DC 4 days ago associated with generalized feeling unwell. She is not able to describe her complaints but re-iterates that she does not feel well and hasnt been feeling better since DC. She also reports her stomach feels full. Also reports continued back pain and abd pain. She denies fever, chills, nausea, emesis, dysuria, diarrhea, constipation, urinary incontinence, stool incontinence, change in sensation. DASH drain hasn't been draining x several days as well. 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 Cardio/Vascular: Yes: CHF, Deep Vein Thrombosis, HTN Pulmonary: Yes: Pulmonary Embolus ...: No Rheumatology: Yes: Rheumatoid Arthritis Endocrine: Yes: Diabetes Mellitus - Past Surgical History Past Surgical History: Yes: Bariatric Surgery (gastric band), Cholecystectomy, Hysterectomy, Joint Replacement (5 right hip replacements, 1 left hip replace ment, bilateral TKR, left LTK with staph infection ), Laminectomy (back surgeries-reports 5, most rcent 06/19) - Alcohol/Substance Use Hx Alcohol Use: No - Smoking History Smoking history: Never smoked Have you smoked in the past 12 months: No Aproximately how many cigarettes per day: 0 If you are a former smoker, when did you quit?: 1966 - Social History Usual Living Arrangement: With Child ADL: Independent 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 History of Recent Travel: No Home Medications - Allergies Allergies/Adverse Reactions: Allergies Allergy/AdvReac Type Severity Reaction Status Date / Time levofloxacin [From Levaquin] Allergy Severe ANAPHYLAXIS Verified 12/26/19 13:30 methotrexate Allergy Severe Swelling Verified 12/26/19 13:30 Penicillins Allergy Mild Rash Verified 12/26/19 13:30 doxycycline Allergy Unknown Verified 12/26/19 13:30 bumetanide [From Bumex] Allergy Rash Verified 12/26/19 13:30 morphine AdvReac Mild Itching Verified 12/28/19 11:59 piperacillin sodium AdvReac Mild Itching Verified 12/26/19 13:30 [From Zosyn] tazobactam sodium AdvReac Mild Itching Verified 12/26/19 13:30 [From Zosyn] - Home Medications Home Medications: Ambulatory Orders Insulin Lispro Protamin/Lispro [Humalog Mix 75-25 Kwikpen] 22 unit SQ BIDAC 12/15/15 Zolpidem Tartrate [Ambien] 10 mg PO HS PRN 06/01/17 Leflunomide [Arava] 20 mg PO DAILY 07/26/18 Torsemide 50 mg PO DAILY 07/26/18 Baclofen 10 mg PO PRN PRN 07/16/19 Rivaroxaban [Xarelto -] 20 mg PO DAILY #30 tablet 10/03/19 Carvedilol [Coreg -] 12.5 mg PO BID 11/23/19 Gabapentin [Neurontin -] 600 mg PO TID 11/23/19 Diazepam 10 mg PO DAILY 12/28/19 Oxycodone HCl/Acetaminophen [Percocet 10-325 mg Tablet] 1 each PO QID 12/28/19 Pramipexole Di-HCl [Mirapex] 0.25 mg PO BID 12/28/19 Cyanocobalamin [Vitamin B12 -] 1,000 mcg PO DAILY #30 tablet 01/10/20 Ferrous Sulfate [Feosol] 325 mg PO BIDWM #60 ud 01/10/20 Sacubitril/Valsartan [Entresto 24 mg-26 mg Tablet] 1 each PO BID #60 tablet 01/10/20 Vital Signs: Vital Signs Temperature 99.2 F 01/22/20 13:17 Pulse Rate 88 01/22/20 13:17 Respiratory Rate 20 01/22/20 13:17 Blood Pressure 134/59 L 01/22/20 13:17 O2 Sat by Pulse Oximetry (%) 97 01/22/20 09:00 - Other Data Labs, Other Data: CBC, BMP 01/22/20 13:40 01/22/20 13:40 INR, PTT INR 1.57 (0.83-1.09) H 01/20/20 06:45
--- NOTE | 2020-01-22 15:44 | PN ---
Progress Note, Physician History of Present Illness: Pt is alert. c/o back pain. Tmax 99.6F. Blood and drain Cultures +growth/isolates pending. - Current Medication List Current Medications: Active Medications Cyanocobalamin (Vitamin B12 -) 1,000 mcg PO DAILY [facility] Last Admin: 01/22/20 09:19 Dose: 1,000 mcg Documented by: Docusate Sodium (Colace -) 100 mg PO Q8H PRN PRN Reason: CONSTIPATION Last Admin: 01/22/20 09:18 Dose: 100 mg Documented by: Ferrous Sulfate (Feosol -) 325 mg PO BIDWM [facility] Last Admin: 01/22/20 09:18 Dose: 325 mg Documented by: Gabapentin (Neurontin -) 600 mg PO TID [facility] Last Admin: 01/22/20 13:27 Dose: 600 mg Documented by: Meropenem 1 gm/ Dextrose 100 mls @ 200 mls/hr IVPB Q12H [facility] Last Admin: 01/22/20 15:27 Dose: 200 mls/hr Documented by: Leflunomide (Arava -) 20 mg PO DAILY [facility] Last Admin: 01/22/20 09:19 Dose: 20 mg Documented by: Pramipexole Dihydrochloride (Mirapex -) 0.25 mg PO BID [facility] Last Admin: 01/22/20 09:19 Dose: 0.25 mg Documented by: Rivaroxaban (Xarelto) 20 mg PO DAILY [facility] Last Admin: 01/22/20 09:18 Dose: 20 mg Documented by: Torsemide (Demadex -) 50 mg PO DAILY [facility] Last Admin: 01/22/20 09:22 Dose: Not Given Documented by: Zolpidem Tartrate (Ambien -) 5 mg PO HS PRN PRN Reason: INSOMNIA Last Admin: 01/20/20 23:36 Dose: 5 mg Documented by: - Objective Vital Signs: Vital Signs Temperature 99.2 F 01/22/20 13:17 Pulse Rate 88 01/22/20 13:17 Respiratory Rate 20 01/22/20 13:17 Blood Pressure 134/59 L 01/22/20 13:17 O2 Sat by Pulse Oximetry (%) 97 01/22/20 09:00 Constitutional: Yes: No Distress, Calm Cardiovascular: Yes: Regular Rate and Rhythm Respiratory: Yes: Regular Gastrointestinal: Yes: Normal Bowel Sounds, Soft, Abdomen, Obese Wound/Incision: Yes: Other (lumbar dreesing intact +DASH drain with small amount of fluid) Neurological: Yes: Alert, Oriented Labs: CBC, BMP 01/22/20 13:40 01/22/20 13:40 INR, PTT INR 1.57 (0.83-1.09) H 01/20/20 06:45 Microbiology 01/21/20 16:45 Body Fluid - Other Gram Stain - Final 01/21/20 12:15 Urine - Urine Clean Catch Urine Culture - Final NO GROWTH OBTAINED 01/19/20 12:30 Blood - Peripheral Venous Blood Culture - Preliminary Non Lactose Fermenting Gnb 01/19/20 12:30 Blood - Peripheral Venous Blood Culture - Preliminary NO GROWTH OBTAINED AFTER 48 HOURS, INCUBATION TO CONTINUE FOR 3 DAYS. 01/19/20 18:14 Urine - Urine Clean Catch Urine Culture - Final Contaminated: Please Repeat Problem List - Problems (1) UTI (urinary tract infection) Code(s): N39.0 - URINARY TRACT INFECTION, SITE NOT SPECIFIED (2) Epidural abscess Code(s): G06.2 - EXTRADURAL AND SUBDURAL ABSCESS, UNSPECIFIED (3) Chronic systolic heart failure Code(s): I50.22 - CHRONIC SYSTOLIC (CONGESTIVE) HEART FAILURE (4) Diabetes Code(s): E11.9 - TYPE 2 DIABETES MELLITUS WITHOUT COMPLICATIONS Qualifiers: Diabetes mellitus type: type 2 (5) History of DVT (deep vein thrombosis) Code(s): Z86.718 - PERSONAL HISTORY OF OTHER VENOUS THROMBOSIS AND EMBOLISM (6) Hypertension Code(s): I10 - ESSENTIAL (PRIMARY) HYPERTENSION (7) Non-ischemic cardiomyopathy Code(s): I42.9 - CARDIOMYOPATHY, UNSPECIFIED (8) Obstructive sleep apnea Code(s): G47.33 - OBSTRUCTIVE SLEEP APNEA (ADULT) (PEDIATRIC) Assessment/Plan Bacteremia UTI Epidural abscess - s/p drainage/DASH in place DM CHF Hx of DVT AFIB -- low grade fevers, esr/crp elevated -- Blood culture initially gram negative, repeat blood cultures +gram positive cocci in pairs/chains - follow up isolates -- continue Meropenem, will add Vancomycin, monitor renal function, obtain Vancomycin trough prior to 4th dose -- Orthopedics follow up -- continue monitor vitals
[2020-01-22] MEDS: VANCOMYCIN 1 GRAM (PRE-DOCKED) 1,000 MG/250 ML BAG IVPB SCH (16:49)
[2020-01-22] MEDS ORDERED: ACETAMINOPHEN 325 MG TABLET (FP) PO PRN ×2 (20:07→21:53)
[2020-01-22] MEDS: ZOLPIDEM TARTRATE 5 MG TABLET PO PRN (22:26)
[2020-01-23] MEDS ORDERED: MEROPENEM 1 GM VIAL (RESTRICTED TO ID) IVPB ONE ×2 (02:41→14:47)
[2020-01-23] MEDS ORDERED: DEXTROSE 5%-WATER 100 ML IVPB ONE ×2 (02:41→14:47)
[2020-01-23] MEDS: MEROPENEM 1 GM in DEXTROSE 5%-WATER 100 ML IVPB SCH ×2 (02:44→14:48)
[2020-01-23] MEDS: VANCOMYCIN 1 GRAM (PRE-DOCKED) 1,000 MG/250 ML BAG IVPB SCH ×2 (03:37→16:11)
[2020-01-23] MEDS: GABAPENTIN 300 MG CAPSULE PO SCH ×3 (05:23→21:35)
--- NOTE | 2020-01-23 08:39 | PN ---
Teaching Attending Note Name of Resident: Gerardo Helms ATTENDING PHYSICIAN STATEMENT I saw and evaluated the patient. I reviewed the resident's note and discussed the case with the resident. I agree with the resident's findings and plan as documented. SUBJECTIVE: Patient seen and examined at bedside, tired appearing, spinal drain w/ minimal output, VSS. OBJECTIVE: Gen: AAO x 3, NAD, tired appearing HEENT: NCAT, eomi, neck supple, dry MM Cardio: Irregularly irregular, normal rate Pulm: CTAb, no wheezing, crackles Abd: obese, soft, nontender Back: incision dressing cdi, DASH drain with scant serous discharge Ext: no edema Vital Signs - 24 hr 01/22/20 01/22/20 01/22/20 09:00 13:17 20:00 Temperature 98.5 F 99.2 F 100.0 F H Pulse Rate 94 H 88 95 H Respiratory 20 20 Rate Blood Pressure 113/60 134/59 L 124/60 O2 Sat by Pulse 97 Oximetry (%) 01/22/20 01/23/20 01/23/20 20:51 02:00 05:52 Temperature 99.0 F 99.2 F Pulse Rate 95 H Respiratory 20 Rate Blood Pressure 112/68 O2 Sat by Pulse 97 Oximetry (%) 01/23/20 08:30 Temperature 98.7 F Pulse Rate 95 H Respiratory 20 Rate Blood Pressure 144/74 O2 Sat by Pulse Oximetry (%) Microbiology 01/19/20 12:30 Blood - Peripheral Venous Blood Culture - Preliminary NO GROWTH OBTAINED AFTER 72 HOURS, INCUBATION TO CONTINUE FOR 2 DAYS. 01/21/20 16:45 Body Fluid - Other Gram Stain - Final 01/21/20 12:15 Urine - Urine Clean Catch Urine Culture - Final NO GROWTH OBTAINED 01/19/20 12:30 Blood - Peripheral Venous Blood Culture - Preliminary Non Lactose Fermenting Gnb 01/19/20 18:14 Urine - Urine Clean Catch Urine Culture - Final Contaminated: Please Repeat Laboratory Results - last 24 hr 01/22/20 01/22/20 01/22/20 06:25 13:40 13:40 WBC Cancelled 7.3 Corrected WBC (auto) Cancelled RBC Cancelled 4.36 Hgb Cancelled 11.9 Hct Cancelled 37.3 MCV Cancelled 85.4 MCH Cancelled 27.3 MCHC Cancelled 31.9 L RDW Cancelled 19.1 H Plt Count Cancelled 257 MPV Cancelled 8.1 Absolute Neuts (auto) 4.8 Neutrophils % 65.3 Lymphocytes % 18.7 D Monocytes % 11.2 H Eosinophils % 4.1 Basophils % 0.7 Nucleated RBC % 0 Manual Slide Review Cancelled Platelet Comment Cancelled Sodium 132 L Potassium 4.9 Chloride 95 L Carbon Dioxide 27 Anion Gap 10 BUN 22.7 H Creatinine 1.0 Est GFR (CKD-EPI)AfAm 64.73 Est GFR (CKD-EPI)NonAf 55.85 Random Glucose 242 H Calcium 8.7 Total Bilirubin 0.6 AST 19 ALT 13 Alkaline Phosphatase 178 H Total Protein 7.1 Albumin 2.7 L Home Medications Medication Instructions Recorded Insulin Lispro Protamin/Lispro 22 unit SQ BIDAC 12/15/15 [Humalog Mix 75-25 Kwikpen] Zolpidem Tartrate [Ambien] 10 mg PO HS PRN 06/01/17 Leflunomide [Arava] 20 mg PO DAILY 07/26/18 Torsemide 50 mg PO DAILY 07/26/18 Baclofen 10 mg PO PRN PRN 07/16/19 Rivaroxaban [Xarelto -] 20 mg PO DAILY #30 tablet 10/03/19 Carvedilol [Coreg -] 12.5 mg PO BID 11/23/19 Gabapentin [Neurontin -] 600 mg PO TID 11/23/19 Diazepam 10 mg PO DAILY 12/28/19 Oxycodone HCl/Acetaminophen 1 each PO QID 12/28/19 [Percocet 10-325 mg Tablet] Pramipexole Di-HCl [Mirapex] 0.25 mg PO BID 12/28/19 Cyanocobalamin [Vitamin B12 -] 1,000 mcg PO DAILY #30 tablet 01/10/20 Ferrous Sulfate [Feosol] 325 mg PO BIDWM #60 ud 01/10/20 Sacubitril/Valsartan [Entresto 24 1 each PO BID #60 tablet 01/10/20 mg-26 mg Tablet] Current Medications Generic Name Dose Route Start Last Admin Trade Name Freq PRN Reason Stop Dose Admin Acetaminophen 650 mg 01/22/20 21:53 01/22/20 22:23 Tylenol - PO 650 mg Q6H PRN Administration FEVER Cyanocobalamin 1,000 mcg 01/20/20 10:00 01/22/20 09:19 Vitamin B12 - PO 1,000 mcg DAILY LISA Administration Docusate Sodium 100 mg 01/21/20 11:58 01/22/20 09:18 Colace - PO 100 mg Q8H PRN Administration CONSTIPATION Gabapentin 600 mg 01/20/20 22:00 01/23/20 05:23 Neurontin - PO 600 mg TID LISA Administration Meropenem 1 gm/ Dextrose 100 mls @ 200 mls/hr 01/21/20 15:00 01/23/20 02:44 IVPB 200 mls/hr Q12H LISA Administration Vancomycin HCl 1,000 mg in 250 mls @ 133.333 mls/hr 01/22/20 16:00 01/23/20 03:37 Vancomycin (Pre-Docked) IVPB 133.333 mls/hr Q12H LISA Administration Leflunomide 20 mg 01/21/20 10:00 01/22/20 09:19 Arava - PO 20 mg DAILY LISA Administration Pramipexole Dihydrochloride 0.25 mg 01/20/20 10:00 01/22/20 21:20 Mirapex - PO 0.25 mg BID LISA Administration Rivaroxaban 20 mg 01/20/20 10:00 01/22/20 09:18 Xarelto PO 20 mg DAILY LISA Administration Torsemide 50 mg 01/20/20 10:00 01/22/20 09:22 Demadex - PO Not Given DAILY LISA Zolpidem Tartrate 5 mg 01/20/20 22:08 01/22/20 22:26 Ambien - PO 5 mg HS PRN Administration INSOMNIA ASSESSMENT AND PLAN: 74 F s/p L4/5 laminectomy then L5/S1 seroma with recent epidural abscess drainage s/p I and D CHF (EF 35-40%) RA DM 2 HTN hx DVT/PE Afib (on Xarelto) Multiple spine surgeries Complex wound closure and wound vac placement 11/26 s/p 5 weeks antibiotics via PICC (rocephin) Plan: Cont. Meropenem/Vancomycin, UTI showing scant bacteria not to explain degree of loss of appetite, ?Ferrous sulfate contributing to GI upset, will hold and observe Spinal drain with minimal output, IR to evaluate drain for possible adjustment, as large fluid collection persists Conservative use of opioids for pain control, Tylenol PRN Xarelto for DVT ppx/PE history Ortho following ID following
[2020-01-23 08:47] LABS: HEMATOCRIT 37.1 % (32.4-45.2); HEMOGLOBIN 11.8 GM/dL (10.7-15.3); MCH 27.5 pg (25.7-33.7); MCHC 31.9 g/dl (32.0-36.0); MEAN CELL VOLUME 86.3 fl (80-96); MEAN PLT VOLUME 8.5 fl (7.5-11.1); PLATELET COUNT 248 K/MM3 (134-434)
[2020-01-23 08:51] LABS: WHITE BLOOD COUNT 11.6 K/mm3 (4.0-10.0)
[2020-01-23] MEDS: LEFLUNOMIDE 10 MG TABLET PO SCH (09:15)
[2020-01-23] MEDS: TORSEMIDE 20 MG TABLET (FP) PO SCH (09:15)
[2020-01-23] MEDS: PRAMIPEXOLE DIHYDROCHLORIDE 0.25 MG TABLET PO SCH ×2 (09:16→21:36)
[2020-01-23] MEDS: RIVAROXABAN 20 MG TABLET PO SCH (09:16)
[2020-01-23] MEDS: CYANOCOBALAMIN 1,000 MCG TABLET (FP) PO SCH (09:16)
[2020-01-23 11:21] LABS: ANISOCYTOSIS 1+; MACROCYTOSIS 0; PLATELET ESTIMATE NORMAL
[2020-01-23 11:27] LABS: ALBUMIN 2.5 g/dl (3.4-5.0); BILIRUBIN,TOTAL 0.4 mg/dL (0.2-1); BLOOD UREA NITROGEN 22.5 mg/dL (7-18); CALCIUM 8.4 mg/dL (8.5-10.1); CREATININE 0.9 mg/dL (0.55-1.3); POTASSIUM 3.7 mmol/L (3.5-5.1); TOT PROT 6.7 g/dl (6.4-8.2)
--- NOTE | 2020-01-23 12:05 | CON.CARD ---
Cardiology Consult (text) - Consultation Consultation Note: Consult Specialty:: Cardiology Referred by:: Medicine Reason for Consultation:: abd pain - History of Present Illness Chief Complaint: History of Present Illness: 74 yo F, with PMH of DM with neuropathy, HTN, RA, CHF, anemia, Afib (on xarelto), prior DVT (with IVC filter), recent epidural abscess drainage (L2-S1 seroma drained 11/22, with PICC line placed), who is presenting with decreased appetite, lower abd pain, feeling unwell. Sees Dr. Pastrana for cardio. Recent admission for CHF, back pain. Initially hypotensive, home coreg and entresto were held. No chest pain, palps, dizziness, dyspnea Social: Pt denies any cigarette, alcohol, or drug use. 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 Cardio/Vascular: Yes: CHF, Deep Vein Thrombosis, HTN Pulmonary: Yes: Pulmonary Embolus ...: No Rheumatology: Yes: Rheumatoid Arthritis Endocrine: Yes: Diabetes Mellitus - Past Surgical History Past Surgical History: Yes: Bariatric Surgery (gastric band), Cholecystectomy, Hysterectomy, Joint Replacement (5 right hip replacements, 1 left hip replacement, bilateral TKR, left LTK with staph infection ), Laminectomy (back surgeries-reports 5, most rcent 06/19) - Alcohol/Substance Use Hx Alcohol Use: No - Smoking History Smoking history: Former smoker Have you smoked in the past 12 months: No Aproximately how many cigarettes per day: 0 If you are a former smoker, when did you quit?: 1966 - Social History Usual Living Arrangement: With Child ADL: Independent 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 History of Recent Travel: No Home Medications - Allergies Allergies/Adverse Reactions: Allergies Allergy/AdvReac Type Severity Reaction Status Date / Time levofloxacin [From Levaquin] Allergy Severe ANAPHYLAXIS Verified 12/26/19 13:30 methotrexate Allergy Severe Swelling Verified 12/26/19 13:30 Penicillins Allergy Mild Rash Verified 12/26/19 13:30 doxycycline Allergy Unknown Verified 12/26/19 13:30 bumetanide [From Bumex] Allergy Rash Verified 12/26/19 13:30 morphine AdvReac Mild Itching Verified 12/28/19 11:59 piperacillin sodium AdvReac Mild Itching Verified 05/20/20 13:30 [From Zosyn] tazobactam sodium AdvReac Mild Itching Verified 12/26/19 13:30 [From Zosyn] Home Medications Medication Instructions Recorded Insulin Lispro Protamin/Lispro 22 unit SQ BIDAC 12/15/15 [Humalog Mix 75-25 Kwikpen] Zolpidem Tartrate [Ambien] 10 mg PO HS PRN 06/01/17 Leflunomide [Arava] 20 mg PO DAILY 07/26/18 Torsemide 50 mg PO DAILY 07/26/18 Baclofen 10 mg PO PRN PRN 07/16/19 Rivaroxaban [Xarelto -] 20 mg PO DAILY #30 tablet 10/03/19 Carvedilol [Coreg -] 12.5 mg PO BID 11/23/19 Gabapentin [Neurontin -] 600 mg PO TID 11/23/19 Diazepam 10 mg PO DAILY 12/28/19 Oxycodone HCl/Acetaminophen 1 each PO QID 12/28/19 [Percocet 10-325 mg Tablet] Pramipexole Di-HCl [Mirapex] 0.25 mg PO BID 12/28/19 Cyanocobalamin [Vitamin B12 -] 1,000 mcg PO DAILY #30 tablet 01/10/20 Ferrous Sulfate [Feosol] 325 mg PO BIDWM #60 ud 01/10/20 Sacubitril/Valsartan [Entresto 24 1 each PO BID #60 tablet 01/10/20 mg-26 mg Tablet] Family Medical History Family History: Unremarkable (not pertinent to this presentation) Review of Systems - Review of Systems Constitutional: reports: No Symptoms Eyes: reports: No Symptoms HENT: reports: No Symptoms Neck: reports: No Symptoms Cardiovascular: reports: Shortness of Breath Respiratory: reports: Exercise Intolerance, SOB on Exertion Gastrointestinal: denies: No Symptoms, Abdominal Pain, Bloating, Constipation, Diarrhea, Dysphagia, Indigestion, Melena, Nausea, Rectal Bleeding, Vomiting, Vomiting Blood, Other Genitourinary: denies: No Symptoms, Burning, Discharge, Dysuria, Flank Pain, Frequency, Hematuria, Incontinence, Lesions, Menses, Pain, Testicular Mass, Testicular Pain, Testicular Swelling, Urgency, Vaginal Bleeding, Other Breasts: denies: No Symptoms Reported, See HPI, Breast Implants, Discharge from Nipple, Lumps, Pain, Skin Changes, Other Musculoskeletal: denies: No Symptoms, Back Pain, Crepitus, Decreased ROM, Extremity Pain, Joint Pain, Joint Swelling, Muscle Pain, Muscle Cramps, Muscle Weakness, Other Integumentary: denies: No Symptoms, Blister, Bruising, Change in Color, Eczema, Erythema, Incision, Lesions, Lump, Pallor, Pruritis, Rash, Wound, Other Neurological: denies: No Symptoms, Change in LOC, Change in Speech, Confusion, Dizziness, Headache, Incoordination, Numbness, Parasthesia, Pre-Existing Deficit, Seizure, Syncope, Tremors, Unsteady Gait, Weakness, Other Endocrine: denies: No Symptoms, Excessive Sweating, Flushing, Increased Hunger, Increased Thirst, Intolerance to Cold, Intolerance to Heat, Unexplained Weight Gain, Unexplained Weight Loss, Other Hematology/Lymphatic: denies: No Symptoms, Easily Bruised, Excessive Bleeding, Swollen Glands, Other Psychiatric: denies: No Symptoms, Altered Sleep Pattern, Anxiety, Depression, Hallucinations, Panic, Paranoia, Suicidal, Other - Risk Factors Known Risk Factors: Yes: Age, Diabetes Mellitus, Physical Inactivity Vital Signs: Vital Signs Period Temp Pulse Resp BP Sys/Marcelo Pulse Ox Last 24 Hr 98.7 F-100.0 F 88-95 20-20 112-144/59-74 97 Constitutional: Yes: No Distress, Calm Respiratory: CTAB Gastrointestinal: Yes: Soft, Abdomen, Obese Cardiovascular: Yes: Pulse Irregular, nl s1, s2, no mrg JVD: no Heart Sounds: Yes: S1, S2 (irreg) Edema: Yes Edema: none Neurological: Yes: Alert, Oriented no jaundice, diaphoresis not agitated Laboratory Last Values WBC 11.6 K/mm3 (4.0-10.0) H 01/23/20 07:00 Corrected WBC (auto) Cancelled 01/22/20 06:25 RBC 4.30 M/mm3 (3.60-5.2) 01/23/20 07:00 Hgb 11.8 GM/dL (10.7-15.3) 01/23/20 07:00 Hct 37.1 % (32.4-45.2) 01/23/20 07:00 MCV 86.3 fl (80-96) 01/23/20 07:00 MCH 27.5 pg (25.7-33.7) 01/23/20 07:00 MCHC 31.9 g/dl (32.0-36.0) L 01/23/20 07:00 RDW 19.0 % (11.6-15.6) H 01/23/20 07:00 Plt Count 248 K/MM3 (134-434) 01/23/20 07:00 MPV 8.5 fl (7.5-11.1) 01/23/20 07:00 Absolute Neuts (auto) 4.8 K/mm3 (1.5-8.0) 01/22/20 13:40 Neutrophils % No Result Required. 01/23/20 07:00 Neutrophils % (Manual) 66.3 % (42.8-82.8) 01/23/20 07:00 Band Neutrophils % 3.2 % 01/23/20 07:00 Lymphocytes % No Result Required. 01/23/20 07:00 Lymphocytes % (Manual) 15.8 % (8-40) 01/23/20 07:00 Monocytes % 11.2 % (3.8-10.2) H 01/22/20 13:40 Monocytes % (Manual) 11 % (3.8-10.2) H 01/23/20 07:00 Eosinophils % 4.1 % (0-4.5) 01/22/20 13:40 Eosinophils % (Manual) 4.2 % (0-4.5) 01/23/20 07:00 Basophils % 0.7 % (0-2.0) 01/22/20 13:40 Basophils % (Manual) 0.0 % (0-2.0) 01/23/20 07:00 Myelocytes % (Man) 0 % (0-2) 01/23/20 07:00 Promyelocytes % (Man) 0 % (0-2) 01/23/20 07:00 Blast Cells % (Manual) 0 % (0-0) 01/23/20 07:00 Nucleated RBC % 0 % (0-0) 01/23/20 07:00 Metamyelocytes 0 % (0-2) 01/23/20 07:00 Manual Slide Review Cancelled 01/22/20 06:25 Hypochromia 0 01/23/20 07:00 Platelet Estimate Normal 01/23/20 07:00 Platelet Comment Cancelled 01/22/20 06:25 Polychromasia 1+ 01/23/20 07:00 Poikilocytosis 0 01/23/20 07:00 Anisocytosis 1+ 01/23/20 07:00 Microcytosis 1+ 01/23/20 07:00 Macrocytosis 0 01/23/20 07:00 ESR 88 mm/hr (0-30) H 01/21/20 07:04 PT with INR 18.60 SEC (9.7-13.0) H 01/20/20 06:45 INR 1.57 (0.83-1.09) H 01/20/20 06:45 PTT (Actin FS) 38.5 SECONDS (25.2-36.5) H 01/19/20 12:30 VBG pH 7.32 (7.31-7.41) 01/19/20 12:30 POC VBG pCO2 49.5 mmHg (38-52) 01/19/20 12:30 POC VBG pO2 < 49 mmHg (28-48) H 01/19/20 12:30 VBG HCO3 24.6 mmol/L (23-29) 01/19/20 12:30 VBG O2 Sat (Michael) 60.8 % (70-80) L 01/19/20 12:30 VBG Base Excess -1.9 mmol/L (-2-2) 01/19/20 12:30 Sodium 132 mmol/L (136-145) L 01/23/20 09:55 Potassium 3.7 mmol/L (3.5-5.1) 01/23/20 09:55 Chloride 94 mmol/L (98-107) L 01/23/20 09:55 Carbon Dioxide 28 mmol/L (21-32) 01/23/20 09:55 Anion Gap 10 MMOL/L (8-16) 01/23/20 09:55 BUN 22.5 mg/dL (7-18) H 01/23/20 09:55 Creatinine 0.9 mg/dL (0.55-1.3) 01/23/20 09:55 Est GFR (CKD-EPI)AfAm 73.52 01/23/20 09:55 Est GFR (CKD-EPI)NonAf 63.43 01/23/20 09:55 POC Glucometer 179 UNITS (80-120) 01/22/20 05:31 Random Glucose 286 mg/dL (74-106) H 01/23/20 09:55 Lactic Acid 0.8 mmol/L (0.4-2.0) 01/20/20 06:45 Calcium 8.4 mg/dL (8.5-10.1) L 01/23/20 09:55 Total Bilirubin 0.4 mg/dL (0.2-1) 01/23/20 09:55 AST 13 U/L (15-37) L 01/23/20 09:55 ALT 11 U/L (13-61) L 01/23/20 09:55 Alkaline Phosphatase 164 U/L (45-117) H 01/23/20 09:55 Troponin I < 0.02 ng/ml (0.00-0.05) 01/19/20 12:30 C-Reactive Protein 14.0 MG/DL (0.00-0.3) H 01/21/20 07:02 Total Protein 6.7 g/dl (6.4-8.2) 01/23/20 09:55 Albumin 2.5 g/dl (3.4-5.0) L 01/23/20 09:55 Urine Color Yellow 01/21/20 12:15 Urine Appearance Clear 01/21/20 12:15 Urine pH 5.0 (5.0-8.0) 01/21/20 12:15 Ur Specific [place] 1.008 (1.010-1.035) L 01/21/20 12:15 Urine Protein Negative (NEGATIVE) 01/21/20 12:15 Urine Glucose (UA) Negative (NEGATIVE) 01/21/20 12:15 Urine Ketones Negative (NEGATIVE) 01/21/20 12:15 Urine Blood Negative (NEGATIVE) 01/21/20 12:15 Urine Nitrite Negative (NEGATIVE) 01/21/20 12:15 Urine Bilirubin Negative (NEGATIVE) 01/21/20 12:15 Urine Urobilinogen 0.2 mg/dL (0.2-1.0) 01/21/20 12:15 Ur Leukocyte Esterase 1+ (NEGATIVE) H 01/21/20 12:15 Urine WBC (Auto) 41 /uL (0-25.8) 01/21/20 12:15 Urine RBC (Auto) 2 /uL (0-23.9) 01/21/20 12:15 Urine Casts (Auto) 2 /uL (0-3.1) 01/21/20 12:15 U Epithel Cells (Auto) 10 /uL (0-25.1) 01/21/20 12:15 Urine Bacteria (Auto) 75 /uL (0-1359) 01/21/20 12:15 COVID-19 (MATA) Not detected (Not Detected) 01/19/20 23:40 Blood Type O POSITIVE 01/19/20 17:30 Antibody Screen Negative 01/19/20 17:30 NSR, PVCs, prolonged QT Echo: Report Reviewed ( Moderately reduced EF, Moderate MR (this admission); 2018 50-55% with mild MR) Imaging - Results X-ray: Image Reviewed (increase interstitial markings) Assessment/Plan IMP: Epidural abscess, wound infection Acute on chronic systolic CHF, with what appears to be new LV dysfx from 2018 Moderate MR Prolonged QT PAF HTN 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 REC: abd pain, epidural abscess - manage per surgery, ID UTI, bacteremia - manage per primary, ID chronic systolic CHF, nonischemic cardiomyopathy, moderate MR -known nonisch CMP with normal coronaries on cath x 2 -EF has fluctuated 35-55% over the years, likely in relation to severity of untreated NICHOLE, vs ? diabetic (uncontrolled glycemic status, does not f/u with P MD despite repeatedly advised to do so) -EF moderately reduced, last echo here EF 35-40% - cont torsemide - resume coreg and entresto Prolonged QTC: -F/u ECGs -Keep K+ and Mg2+ normalized -Avoid / minimize QT prolonging meds PAF: -Cont Coreg and Xarelto DVT/PE with history of filter: -cont with AC NICHOLE: -not using CPAP
--- NOTE | 2020-01-23 12:08 | PN ---
Physical Exam: SUBJECTIVE: Patient seen and examined at beside. Feels ok. OBJECTIVE: Vital Signs Period Temp Pulse Resp BP Sys/Marcelo Pulse Ox Last 24 Hr 98.7 F-100.0 F 88-95 20-20 112-144/59-74 97 Gen: AAO x 3, NAD HEENT: NCAT, eomi Neck: supple, no jvd Cardio: rrr, norm s1s2, no mrg noted Pulm: CTA b/l Abd: obese, soft, nontender Back: incision dressing cdi, DASH drain with 5 ml purulent fluid Ext: no edema Laboratory Results - last 24 hr 01/22/20 01/22/20 01/23/20 13:40 13:40 07:00 WBC 7.3 11.6 H RBC 4.36 4.30 Hgb 11.9 11.8 Hct 37.3 37.1 MCV 85.4 86.3 MCH 27.3 27.5 MCHC 31.9 L 31.9 L RDW 19.1 H 19.0 H Plt Count 257 248 MPV 8.1 8.5 Absolute Neuts (auto) 4.8 Neutrophils % 65.3 No Result Required. Neutrophils % (Manual) 66.3 Band Neutrophils % 3.2 Lymphocytes % 18.7 D No Result Required. Lymphocytes % (Manual) 15.8 Monocytes % 11.2 H Monocytes % (Manual) 11 H Eosinophils % 4.1 Eosinophils % (Manual) 4.2 Basophils % 0.7 Basophils % (Manual) 0.0 Myelocytes % (Man) 0 Promyelocytes % (Man) 0 Blast Cells % (Manual) 0 Nucleated RBC % 0 0 Metamyelocytes 0 Hypochromia 0 Platelet Estimate Normal Polychromasia 1+ Poikilocytosis 0 Anisocytosis 1+ Microcytosis 1+ Macrocytosis 0 Sodium 132 L Potassium 4.9 Chloride 95 L Carbon Dioxide 27 Anion Gap 10 BUN 22.7 H Creatinine 1.0 Est GFR (CKD-EPI)AfAm 64.73 Est GFR (CKD-EPI)NonAf 55.85 Random Glucose 242 H Calcium 8.7 Total Bilirubin 0.6 AST 19 ALT 13 Alkaline Phosphatase 178 H Total Protein 7.1 Albumin 2.7 L 01/23/20 09:55 WBC RBC Hgb Hct MCV MCH MCHC RDW Plt Count MPV Absolute Neuts (auto) Neutrophils % Neutrophils % (Manual) Band Neutrophils % Lymphocytes % Lymphocytes % (Manual) Monocytes % Monocytes % (Manual) Eosinophils % Eosinophils % (Manual) Basophils % Basophils % (Manual) Myelocytes % (Man) Promyelocytes % (Man) Blast Cells % (Manual) Nucleated RBC % Metamyelocytes Hypochromia Platelet Estimate Polychromasia Poikilocytosis Anisocytosis Microcytosis Macrocytosis Sodium 132 L Potassium 3.7 Chloride 94 L Carbon Dioxide 28 Anion Gap 10 BUN 22.5 H Creatinine 0.9 Est GFR (CKD-EPI)AfAm 73.52 Est GFR (CKD-EPI)NonAf 63.43 Random Glucose 286 H Calcium 8.4 L Total Bilirubin 0.4 AST 13 L ALT 11 L Alkaline Phosphatase 164 H Total Protein 6.7 Albumin 2.5 L Active Medications Generic Name Dose Route Start Last Admin Trade Name Freq PRN Reason Stop Dose Admin Acetaminophen 650 mg 01/22/20 21:53 01/22/20 22:23 Tylenol - PO 650 mg Q6H PRN Administration FEVER Carvedilol 12.5 mg 01/23/20 12:00 Coreg - PO BID LISA Cyanocobalamin 1,000 mcg 01/20/20 10:00 01/23/20 09:16 Vitamin B12 - PO 1,000 mcg DAILY LISA Administration Docusate Sodium 100 mg 01/21/20 11:58 01/22/20 09:18 Colace - PO 100 mg Q8H PRN Administration CONSTIPATION Gabapentin 600 mg 01/20/20 22:00 01/23/20 05:23 Neurontin - PO 600 mg TID LSIA Administration Meropenem 1 gm/ Dextrose 100 mls @ 200 mls/hr 01/21/20 15:00 01/23/20 02:44 IVPB 200 mls/hr Q12H LISA Administration Vancomycin HCl 1,000 mg in 250 mls @ 133.333 mls/hr 01/22/20 16:00 01/23/20 03:37 Vancomycin (Pre-Docked) IVPB 133.333 mls/hr Q12H LISA Administration Leflunomide 20 mg 01/21/20 10:00 01/23/20 09:15 Arava - PO 20 mg DAILY LISA Administration Pramipexole Dihydrochloride 0.25 mg 01/20/20 10:00 01/23/20 09:16 Mirapex - PO 0.25 mg BID LISA Administration Rivaroxaban 20 mg 01/20/20 10:00 01/23/20 09:16 Xarelto PO 20 mg DAILY LISA Administration Sacubitril/Valsartan 1 tab 01/23/20 12:00 Entresto 24 Mg-26 Mg Tablet PO BID LISA Torsemide 50 mg 01/20/20 10:00 01/23/20 09:15 Demadex - PO 50 mg DAILY LISA Administration Zolpidem Tartrate 5 mg 01/20/20 22:08 01/22/20 22:26 Ambien - PO 5 mg HS PRN Administration INSOMNIA ASSESSMENT/PLAN: 74 y.o. F PMH CHF (EF 35-40%), RA, DM 2, HTN, Hx DVT/PE, a fib (on Xarelto), known non-ischemic cardiomyopathy, multiple spine surgeries, s/p L4/5 laminectomy then L5/S1 seroma with recent epidural abscess drainage s/p I and D, complex wound closure and wound vac placement 11/26 s/p 5 weeks antibiotics via PICC (rocephin), recently d/c'd for CHF exacerbation on 01/09 & sent home w/ home VNS. Presenting on this admission for lower abdominal and back pain admitted for sepsis #Sepsis 2/2 expanding epidural abscess vs UTI: No longer septic -holding home Diazepam & BP meds in setting of hypotension -UA: 2+ LE, >10^3 bacteria, + nitrites, trace blood -continue abx: on meropenem for UTI (has hx of ESBL infxns)- renally dosed- started 01/19 -CT A/P: incr size of epidural abscess collection -Back pigtail drain now draining -blood cx's growing Gm neg bacilli x 1 bottle. Repeat BCx (01/22/2020) pending -DASH drain fluid cultures prelim pos with polymicrobial -repeat urine cultures (1st contaminated): negative -F/u IR/Surgery for further drain/wound recommendations -pain control: Oxy 10mg Q6 PRN, tylenol #ELIZABETH: RESOLVED -Cr 1.6 on admission (1.2 on most recent d/c labs, ~1.0 baseline) -s/p 500cc NS bolus -will repeat labs today -holding entresto -renally dose medications -avoid nephrotoxic substances #Paroxysmal Atrial Fibrillation -holding Coreg in setting of hypotension -Xarelto 20mg daily #Hx PE/DVT -c/w Xarelto #DM -HbA1c 9.0% -BGMs, ISS ACHS -hold home oral agents #RA -c/w Leflunomide #Normocytic Anemia -2/2 to anemia of chronic disease -continue feosol -h&h stable, continue to monitor cbc #NICHOLE -not treated, pt has not followed up for cpap therapy #DVT PPX on Xarelto #FEN -no standing fluids -monitor lytes -diabetic/ na controlled diet Dispo: -cont to monitor on med surg Visit type - Emergency Visit Emergency Visit: No - New Patient This patient is new to me today: No - Critical Care Critical Care patient: No ATTENDING PHYSICIAN STATEMENT I saw and evaluated the patient. I reviewed the resident's note and discussed the case with the resident. I agree with the resident's findings and plan as documented. SUBJECTIVE: OBJECTIVE: ASSESSMENT AND PLAN:
--- NOTE | 2020-01-23 12:54 | PN ---
Progress Note, Physician History of Present Illness: stable pain multiple organisms noted in the spinal fluid - Current Medication List Current Medications: Active Medications Acetaminophen (Tylenol -) 650 mg PO Q6H PRN PRN Reason: FEVER Last Admin: 01/22/20 22:23 Dose: 650 mg Documented by: Carvedilol (Coreg -) 12.5 mg PO BID [facility] Cyanocobalamin (Vitamin B12 -) 1,000 mcg PO DAILY [facility] Last Admin: 01/23/20 09:16 Dose: 1,000 mcg Documented by: Docusate Sodium (Colace -) 100 mg PO Q8H PRN PRN Reason: CONSTIPATION Last Admin: 01/22/20 09:18 Dose: 100 mg Documented by: Gabapentin (Neurontin -) 600 mg PO TID [facility] Last Admin: 01/23/20 05:23 Dose: 600 mg Documented by: Meropenem 1 gm/ Dextrose 100 mls @ 200 mls/hr IVPB Q12H [facility] Last Admin: 01/23/20 02:44 Dose: 200 mls/hr Documented by: Vancomycin HCl (Vancomycin (Pre-Docked)) 1,000 mg in 250 mls @ 133.333 mls/hr IVPB Q12H [facility] Last Admin: 01/23/20 03:37 Dose: 133.333 mls/hr Documented by: Leflunomide (Arava -) 20 mg PO DAILY [facility] Last Admin: 01/23/20 09:15 Dose: 20 mg Documented by: Pramipexole Dihydrochloride (Mirapex -) 0.25 mg PO BID [facility] Last Admin: 01/23/20 09:16 Dose: 0.25 mg Documented by: Rivaroxaban (Xarelto) 20 mg PO DAILY [facility] Last Admin: 01/23/20 09:16 Dose: 20 mg Documented by: Sacubitril/Valsartan (Entresto 24 Mg-26 Mg Tablet) 1 tab PO BID [facility] Torsemide (Demadex -) 50 mg PO DAILY [facility] Last Admin: 01/23/20 09:15 Dose: 50 mg Documented by: Zolpidem Tartrate (Ambien -) 5 mg PO HS PRN PRN Reason: INSOMNIA Last Admin: 01/22/20 22:26 Dose: 5 mg Documented by: - Objective Vital Signs: Vital Signs Temperature 98.7 F 01/23/20 08:30 Pulse Rate 95 H 01/23/20 08:30 Respiratory Rate 20 01/23/20 08:30 Blood Pressure 144/74 01/23/20 08:30 O2 Sat by Pulse Oximetry (%) 97 01/22/20 20:51 Constitutional: Yes: Calm, Mild Distress Cardiovascular: Yes: S1, S2 Respiratory: Yes: Regular, CTA Bilaterally Gastrointestinal: Yes: Normal Bowel Sounds, Soft Musculoskeletal: Yes: WNL Extremities: Yes: WNL Neurological: Yes: Alert, Oriented Psychiatric: Yes: Alert, Oriented Labs: CBC, BMP 01/23/20 07:00 01/23/20 09:55 INR, PTT INR 1.57 (0.83-1.09) H 01/20/20 06:45 Assessment/Plan roblem List - Problems (1) UTI (urinary tract infection) Code(s): N39.0 - URINARY TRACT INFECTION, SITE NOT SPECIFIED (2) Epidural abscess Code(s): G06.2 - EXTRADURAL AND SUBDURAL ABSCESS, UNSPECIFIED (3) Chronic systolic heart failure Code(s): I50.22 - CHRONIC SYSTOLIC (CONGESTIVE) HEART FAILURE (4) Diabetes Code(s): E11.9 - TYPE 2 DIABETES MELLITUS WITHOUT COMPLICATIONS Qualifiers: Diabetes mellitus type: type 2 (5) History of DVT (deep vein thrombosis) Code(s): Z86.718 - PERSONAL HISTORY OF OTHER VENOUS THROMBOSIS AND EMBOLISM (6) Hypertension Code(s): I10 - ESSENTIAL (PRIMARY) HYPERTENSION (7) Non-ischemic cardiomyopathy Code(s): I42.9 - CARDIOMYOPATHY, UNSPECIFIED (8) Obstructive sleep apnea Code(s): G47.33 - OBSTRUCTIVE SLEEP APNEA (ADULT) (PEDIATRIC) Assessment/Plan Bacteremia UTI Epidural abscess - s/p drainage/DASH in place DM CHF Hx of DVT AFIB -- low grade fevers, esr/crp elevated -- Blood culture initially gram negative, repeat blood cultures +gram positive cocci in pairs/chains - follow up isolates -- continue Meropenem, Vancomycin, monitor renal function, obtain Vancomycin trough prior to 4th dose -- Orthopedics follow up -- continue monitor vitals
--- NOTE | 2020-01-23 13:35 | PN ---
Progress Note (short form) - Note Progress Note: 74F well known to [facility] Orthopaedics service now admitted w/loss of appetite and abdominal pain. Pt. has a large epidural deadspace which fills with non-infectious serous fluid. This is not the cause for admission. This is a chronic, stable condition. , pt. underwent IR imaging-guided drainage of the collection with placement of an indwelling catheter to facilitate drainage of collection. Per pt. and ER team, drain is blocked. Blocked drainage has cause egress of serous fluid from around the drain site. Since multiple intra-op tissue and fluid specimens have been negative for infection, this is not an abscess. The fluid collection is aseptic. Due to multiple lumbar spine I&D's with percutaneous drainage and drain placement, the patient has air-fluid levels in the collection, as seen on advanced imaging. This is to be expected, and thus there is no clinical correlation with a radiographic concern for gas gangrene. Per patient, pigtail catheter/drain was blocked. The cockstop valve likely rotated which turned off the drain. After readmission, a nurse at the bedside fixed this and immediately drainage resumed. Pt. denies overnight history of headaches, chest pain, shortness of breath, nausea, vomiting, chills, & sweats. (+) Voiding; (+) Flatus; (+) BM. Pt. preserves full bowel and bladder control. Patient remains grossly de-conditioned due to morbid obesity and sedentary habitus. All labs and vitals reviewed. PE: AAO x 3, NAD. L-Spine: Lumbar spine wound C/D/I. Pigtail catheter intact and in place. (+) Tin nnel's test over common peroneal nerve at the level of the fibular head. RLE M: HF/KF/KE/ADF 12/10; ADF/GTE 08/12 (I.E. foot drop). RLE S: Femoral, Saphenous, Lateral Sural, Tibial Nerves 2/2; Superficial Peroneal Nerve 2/2; Deep Peroneal Nerve 0/2. A/P: 74F well known to [facility] Orthopaedics service now admitted w/loss of appetite and abdominal pain. -Recommend IR consult ARLYN for functional assessment of lumbar pigtail catheter/drain. -Lumbar drain care. -No orthopaedic spine surgical intervention indicated at this time. -RLE foot drop: Continue use of heel-offloading AFO splint for use in bed and functional AFO splint for ambulation; rolled towel under ankle to offload heal and mitigate risk for heel ulcer formation; f/u Dr. Almanzar after discharge. -Care per primary medical hospitalist team & ID team. -Pain medication: recommend oxyocodone 10mg PO q6h PRN pain (patient has multiple orthopaedic problems). -Attentive perineal hygiene. -DVT PPx: -Mechanical: MARLON's, SCD's. -Chemical: Xarelto qD. -f/u AM labs. -Incentive spirometry. -PT/OT/Rehab, OOB at least once daily, ideally 2-3 times daily; passive R ankle dorsiflexion to prevent Achilles contracture. -WBAT B/L LE. -No heavy lifting (>5 lbs), bending or twisting. -B/L UE & LE NV checks. -Will follow. Luis Borjas MD (Orthopaedic Surgery).
[2020-01-23] MEDS: SACUBITRIL/VALSARTAN 24 MG-26 MG TABLET PO SCH ×2 (13:51→22:33)
[2020-01-23] MEDS: CARVEDILOL 12.5 MG TABLET (FP) PO SCH ×3 (13:51→21:50)
[2020-01-23] MEDS ORDERED: diphenhydrAMINE HCL 12.5 MG/5 ML UNIT-DOSE CUPS PO PRN (14:24)
[2020-01-23] MEDS: oxyCODONE HCL 5 MG TABLET PO PRN (16:11)
--- NOTE | 2020-01-23 17:02 | PN ---
Teaching Attending Note Name of Resident: Gerardo Helms ATTENDING PHYSICIAN STATEMENT I saw and evaluated the patient. I reviewed the resident's note and discussed the case with the resident. I agree with the resident's findings and plan as documented. SUBJECTIVE: Patient seen and examined at bedside, NAD, eating lunch, VSS. OBJECTIVE: Gen: AAO x 3, NAD, tired appearing HEENT: NCAT, eomi, neck supple, dry MM Cardio: Irregularly irregular, normal rate Pulm: CTAb, no wheezing, crackles Abd: obese, soft, nontender Back: incision dressing cdi, DASH drain with scant serous discharge Ext: no edema Vital Signs - 24 hr 01/22/20 01/22/20 01/23/20 20:00 20:51 02:00 Temperature 100.0 F H 99.0 F Pulse Rate 95 H Respiratory Rate Blood Pressure 124/60 O2 Sat by Pulse 97 Oximetry (%) 01/23/20 01/23/20 01/23/20 05:52 08:30 09:00 Temperature 99.2 F 98.7 F Pulse Rate 95 H 95 H Respiratory 20 20 Rate Blood Pressure 112/68 144/74 O2 Sat by Pulse 97 Oximetry (%) 01/23/20 13:21 Temperature 98.6 F Pulse Rate 100 H Respiratory 20 Rate Blood Pressure 117/65 O2 Sat by Pulse Oximetry (%) Microbiology 01/21/20 16:40 Drainage Gram Stain - Final 01/21/20 16:45 Body Fluid - Other Gram Stain - Final 01/21/20 16:45 Body Fluid - Other Body Fluid Culture - Preliminary Staphylococcus Latex Coag Pos Lactose Fermenting Neg Bacilli Gram Negative Alfonso Gram Negative Alfonso#2 Gram Negative Alfonso#3 Proteus Species Pending Organism 01/22/20 13:40 Blood - Peripheral Venous Blood Culture - Preliminary NO GROWTH OBTAINED AFTER 24 HOURS, INCUBATION TO CONTINUE FOR 4 DAYS. 01/22/20 13:50 Blood - Peripheral Venous Blood Culture - Preliminary NO GROWTH OBTAINED AFTER 24 HOURS, INCUBATION TO CONTINUE FOR 4 DAYS. 01/19/20 12:30 Blood - Peripheral Venous Blood Culture - Preliminary Non Lactose Fermenting Gnb 01/19/20 12:30 Blood - Peripheral Venous Blood Culture - Preliminary NO GROWTH OBTAINED AFTER 72 HOURS, INCUBATION TO CONTINUE FOR 2 DAYS. 01/21/20 12:15 Urine - Urine Clean Catch Urine Culture - Final NO GROWTH OBTAINED 01/19/20 18:14 Urine - Urine Clean Catch Urine Culture - Final Contaminated: Please Repeat Laboratory Results - last 24 hr 01/23/20 01/23/20 07:00 09:55 WBC 11.6 H RBC 4.30 Hgb 11.8 Hct 37.1 MCV 86.3 MCH 27.5 MCHC 31.9 L RDW 19.0 H Plt Count 248 MPV 8.5 Neutrophils % No Result Required. Neutrophils % (Manual) 66.3 Band Neutrophils % 3.2 Lymphocytes % No Result Required. Lymphocytes % (Manual) 15.8 Monocytes % (Manual) 11 H Eosinophils % (Manual) 4.2 Basophils % (Manual) 0.0 Myelocytes % (Man) 0 Promyelocytes % (Man) 0 Blast Cells % (Manual) 0 Nucleated RBC % 0 Metamyelocytes 0 Hypochromia 0 Platelet Estimate Normal Polychromasia 1+ Poikilocytosis 0 Anisocytosis 1+ Microcytosis 1+ Macrocytosis 0 Sodium 132 L Potassium 3.7 Chloride 94 L Carbon Dioxide 28 Anion Gap 10 BUN 22.5 H Creatinine 0.9 Est GFR (CKD-EPI)AfAm 73.52 Est GFR (CKD-EPI)NonAf 63.43 Random Glucose 286 H Calcium 8.4 L Total Bilirubin 0.4 AST 13 L ALT 11 L Alkaline Phosphatase 164 H Total Protein 6.7 Albumin 2.5 L Home Medications Medication Instructions Recorded Insulin Lispro Protamin/Lispro 22 unit SQ BIDAC 12/15/15 [Humalog Mix 75-25 Kwikpen] Zolpidem Tartrate [Ambien] 10 mg PO HS PRN 06/01/17 Leflunomide [Arava] 20 mg PO DAILY 07/26/18 Torsemide 50 mg PO DAILY 07/26/18 Baclofen 10 mg PO PRN PRN 07/16/19 Rivaroxaban [Xarelto -] 20 mg PO DAILY #30 tablet 10/03/19 Carvedilol [Coreg -] 12.5 mg PO BID 11/23/19 Gabapentin [Neurontin -] 600 mg PO TID 11/23/19 Diazepam 10 mg PO DAILY 12/28/19 Oxycodone HCl/Acetaminophen 1 each PO QID 12/28/19 [Percocet 10-325 mg Tablet] Pramipexole Di-HCl [Mirapex] 0.25 mg PO BID 12/28/19 Cyanocobalamin [Vitamin B12 -] 1,000 mcg PO DAILY #30 tablet 01/10/20 Ferrous Sulfate [Feosol] 325 mg PO BIDWM #60 ud 01/10/20 Sacubitril/Valsartan [Entresto 24 1 each PO BID #60 tablet 01/10/20 mg-26 mg Tablet] Current Medications Generic Name Dose Route Start Last Admin Trade Name Freq PRN Reason Stop Dose Admin Acetaminophen 650 mg 01/22/20 21:53 01/22/20 22:23 Tylenol - PO 650 mg Q6H PRN Administration FEVER Carvedilol 12.5 mg 01/23/20 13:15 01/23/20 13:51 Coreg - PO 12.5 mg BID LISA Administration Cyanocobalamin 1,000 mcg 01/20/20 10:00 01/23/20 09:16 Vitamin B12 - PO 1,000 mcg DAILY LISA Administration Diphenhydramine HCl 25 mg 01/23/20 14:24 01/23/20 14:34 Benadryl Oral Solution - PO 25 mg HS PRN Administration INSOMNIA Docusate Sodium 100 mg 01/21/20 11:58 01/22/20 09:18 Colace - PO 100 mg Q8H PRN Administration CONSTIPATION Gabapentin 600 mg 01/20/20 22:00 01/23/20 13:51 Neurontin - PO 600 mg TID LISA Administration Meropenem 1 gm/ Dextrose 100 mls @ 200 mls/hr 01/21/20 15:00 01/23/20 14:48 IVPB 200 mls/hr Q12H LISA Administration Vancomycin HCl 1,000 mg in 250 mls @ 133.333 mls/hr 01/22/20 16:00 01/23/20 16:11 Vancomycin (Pre-Docked) IVPB 133.333 mls/hr Q12H LISA Administration Leflunomide 20 mg 01/21/20 10:00 01/23/20 09:15 Arava - PO 20 mg DAILY LISA Administration Oxycodone HCl 10 mg 01/23/20 15:45 01/23/20 16:11 Roxicodone - PO 10 mg Q6H PRN Administration PAIN LEVEL 6-10 Pramipexole Dihydrochloride 0.25 mg 01/20/20 10:00 06/17/20 09:16 Mirapex - PO 0.25 mg BID LISA Administration Rivaroxaban 20 mg 01/20/20 10:00 01/23/20 09:16 Xarelto PO 20 mg DAILY LISA Administration Sacubitril/Valsartan 1 tab 01/23/20 13:15 01/23/20 13:51 Entresto 24 Mg-26 Mg Tablet PO 1 tab BID LISA Administration Torsemide 50 mg 01/20/20 10:00 01/23/20 09:15 Demadex - PO 50 mg DAILY LISA Administration Zolpidem Tartrate 5 mg 01/20/20 22:08 01/22/20 22:26 Ambien - PO 5 mg HS PRN Administration INSOMNIA ASSESSMENT AND PLAN: 74 F s/p L4/5 laminectomy then L5/S1 seroma with recent epidural abscess drainage s/p I and D CHF (EF 35-40%) RA DM 2 HTN hx DVT/PE Afib (on Xarelto) Multiple spine surgeries Complex wound closure and wound vac placement 11/26 s/p 5 weeks antibiotics via PICC (rocephin) Plan: Cont. Meropenem/Vancomycin (follow troughs), UTI showing scant bacteria not to explain degree of loss of appetite, appetite now improved Spinal drain with minimal output, IR to evaluate drain for possible adjustment Conservative use of opioids for pain control, Tylenol PRN Xarelto for DVT ppx/PE history aggressive bowel regimen Ortho following ID following
[2020-01-24] MEDS ORDERED: MEROPENEM 1 GM VIAL (RESTRICTED TO ID) IVPB ONE ×2 (02:19→13:48)
[2020-01-24] MEDS ORDERED: DEXTROSE 5%-WATER 100 ML IVPB ONE ×2 (02:19→13:48)
[2020-01-24] MEDS: MEROPENEM 1 GM in DEXTROSE 5%-WATER 100 ML IVPB SCH ×2 (02:31→14:35)
[2020-01-24] MEDS: VANCOMYCIN 1 GRAM (PRE-DOCKED) 1,000 MG/250 ML BAG IVPB SCH (03:20)
[2020-01-24] MEDS: oxyCODONE HCL 5 MG TABLET PO PRN (05:55)
[2020-01-24] MEDS: GABAPENTIN 300 MG CAPSULE PO SCH ×2 (05:56→14:33)
[2020-01-24] MEDS: CARVEDILOL 12.5 MG TABLET (FP) PO SCH (09:22)
[2020-01-24] MEDS: TORSEMIDE 20 MG TABLET (FP) PO SCH (09:24)
[2020-01-24] MEDS: PRAMIPEXOLE DIHYDROCHLORIDE 0.25 MG TABLET PO SCH (09:24)
[2020-01-24] MEDS: LEFLUNOMIDE 10 MG TABLET PO SCH (09:24)
[2020-01-24] MEDS: CYANOCOBALAMIN 1,000 MCG TABLET (FP) PO SCH (09:25)
[2020-01-24] MEDS: RIVAROXABAN 20 MG TABLET PO SCH (09:25)
[2020-01-24] MEDS: SACUBITRIL/VALSARTAN 24 MG-26 MG TABLET PO SCH (09:25)
[2020-01-24] MEDS ORDERED: ACETAMINOPHEN 1000 MG/100 ML VIAL (NON FORMULARY) IVPB PRN ×2 (09:38→20:52)
--- NOTE | 2020-01-24 11:31 | PN ---
Physical Exam: SUBJECTIVE: Patient seen and examined at bedside. BP low this morning. Beta baljeet, entresto, torsemide held. OBJECTIVE: Vital Signs Period Temp Pulse Resp BP Sys/Marcelo Pulse Ox Last 24 Hr 98.3 F-99.1 F 90-102 20-20 93-123/45-74 97 Gen: AAO x 3, NAD HEENT: NCAT, eomi Neck: supple, no jvd Cardio: rrr, norm s1s2, no mrg noted Pulm: CTA b/l Abd: obese, soft, nontender Back: incision dressing cdi, DASH drain with 5 ml purulent fluid Ext: no edema Laboratory Results - last 24 hr 01/23/20 01/24/20 07:00 11:03 Neutrophils % (Manual) 66.3 Band Neutrophils % 3.2 Lymphocytes % (Manual) 15.8 Monocytes % (Manual) 11 H Eosinophils % (Manual) 4.2 Basophils % (Manual) 0.0 Myelocytes % (Man) 0 Promyelocytes % (Man) 0 Blast Cells % (Manual) 0 Nucleated RBC % 0 Metamyelocytes 0 Hypochromia 0 Platelet Estimate Normal Polychromasia 1+ Poikilocytosis 0 Anisocytosis 1+ Microcytosis 1+ Macrocytosis 0 POC Glucometer 163 Active Medications Generic Name Dose Route Start Last Admin Trade Name Freq PRN Reason Stop Dose Admin Acetaminophen 1,000 mg 01/24/20 09:38 Ofirmev Injection - IVPB 01/25/20 09:38 Q6H PRN PAIN LEVEL 6-10 Carvedilol 12.5 mg 01/23/20 13:15 01/24/20 09:22 Coreg - PO Not Given BID LISA Cyanocobalamin 1,000 mcg 01/20/20 10:00 01/24/20 09:25 Vitamin B12 - PO 1,000 mcg DAILY LISA Administration Diphenhydramine HCl 25 mg 01/23/20 14:24 01/23/20 14:34 Benadryl Oral Solution - PO 25 mg HS PRN Administration INSOMNIA Docusate Sodium 100 mg 01/21/20 11:58 01/22/20 09:18 Colace - PO 100 mg Q8H PRN Administration CONSTIPATION Gabapentin 600 mg 01/20/20 22:00 01/24/20 05:56 Neurontin - PO 600 mg TID LISA Administration Meropenem 1 gm/ Dextrose 100 mls @ 200 mls/hr 01/21/20 15:00 01/24/20 02:31 IVPB 200 mls/hr Q12H LISA Administration Vancomycin HCl 1,000 mg in 250 mls @ 133.333 mls/hr 01/22/20 16:00 01/24/20 03:20 Vancomycin (Pre-Docked) IVPB 133.333 mls/hr Q12H LISA Administration Leflunomide 20 mg 01/21/20 10:00 01/24/20 09:24 Arava - PO 20 mg DAILY LISA Administration Oxycodone HCl 10 mg 01/23/20 15:45 01/24/20 05:55 Roxicodone - PO 10 mg Q6H PRN Administration PAIN LEVEL 6-10 Pramipexole Dihydrochloride 0.25 mg 01/20/20 10:00 01/24/20 09:24 Mirapex - PO 0.25 mg BID LISA Administration Rivaroxaban 20 mg 01/20/20 10:00 01/24/20 09:25 Xarelto PO 20 mg DAILY LISA Administration Sacubitril/Valsartan 1 tab 01/23/20 13:15 01/24/20 09:25 Entresto 24 Mg-26 Mg Tablet PO 1 tab BID LISA Administration Torsemide 50 mg 01/20/20 10:00 01/24/20 09:24 Demadex - PO 50 mg DAILY LISA Administration ASSESSMENT/PLAN: 74 y.o. F PMH CHF (EF 35-40%), RA, DM 2, HTN, Hx DVT/PE, a fib (on Xarelto), known non-ischemic cardiomyopathy, multiple spine surgeries, s/p L4/5 laminectomy then L5/S1 seroma with recent epidural abscess drainage s/p I and D, complex wound closure and wound vac placement 11/26 s/p 5 weeks antibiotics via PICC (rocephin), recently d/c'd for CHF exacerbation on 01/09 & sent home w/ home VNS. Presenting on this admission for lower abdominal and back pain admitted for sepsis #Sepsis 2/2 expanding epidural abscess vs UTI: No longer septic -holding home Diazepam & BP meds in setting of hypotension -UA: 2+ LE, >10^3 bacteria, + nitrites, trace blood -continue abx: on meropenem for UTI (has hx of ESBL infxns)- renally dosed- started 01/19 -CT A/P: incr size of epidural abscess collection -Back pigtail drain now draining -blood cx's growing Gm neg bacilli x 1 bottle. Repeat BCx (01/22/2020) negative -DASH drain fluid cultures with polymicrobial growth. Sensitivity pending -repeat urine cultures (1st contaminated): negative -F/u IR/Surgery for further drain/wound recommendations -pain control: Oxy 10mg Q6 PRN, tylenol #ELIZABETH: RESOLVED -Cr 1.6 on admission (1.2 on most recent d/c labs, ~1.0 baseline) -s/p 500cc NS bolus -will repeat labs today -holding entresto -renally dose medications -avoid nephrotoxic substances #Paroxysmal Atrial Fibrillation -holding Coreg in setting of hypotension -Xarelto 20mg daily #Hx PE/DVT -c/w Xarelto #DM -HbA1c 9.0% -BGMs, ISS ACHS -hold home oral agents #RA -c/w Leflunomide #Normocytic Anemia -2/2 to anemia of chronic disease -continue feosol -h&h stable, continue to monitor cbc #NICHOLE -not treated, pt has not followed up for cpap therapy #DVT PPX on Xarelto #FEN -no standing fluids -monitor lytes -diabetic/ na controlled diet Dispo: -cont to monitor on med surg Visit type - Emergency Visit Emergency Visit: No - New Patient This patient is new to me today: No - Critical Care Critical Care patient: No ATTENDING PHYSICIAN STATEMENT I saw and evaluated the patient. I reviewed the resident's note and discussed the case with the resident. I agree with the resident's findings and plan as documented. SUBJECTIVE: OBJECTIVE: ASSESSMENT AND PLAN:
--- NOTE | 2020-01-24 11:40 | PN ---
Progress Note (short form) - Note Progress Note: s: no cp sob palps dizzy Current Medications Generic Name Dose Route Start Last Admin Trade Name Freq PRN Reason Stop Dose Admin Acetaminophen 1,000 mg 01/24/20 09:38 Ofirmev Injection - IVPB 01/25/20 09:38 Q6H PRN PAIN LEVEL 6-10 Carvedilol 12.5 mg 01/23/20 13:15 01/24/20 09:22 Coreg - PO Not Given BID LISA Cyanocobalamin 1,000 mcg 01/20/20 10:00 01/24/20 09:25 Vitamin B12 - PO 1,000 mcg DAILY LISA Administration Diphenhydramine HCl 25 mg 01/23/20 14:24 01/23/20 14:34 Benadryl Oral Solution - PO 25 mg HS PRN Administration INSOMNIA Docusate Sodium 100 mg 01/21/20 11:58 01/22/20 09:18 Colace - PO 100 mg Q8H PRN Administration CONSTIPATION Gabapentin 600 mg 01/20/20 22:00 01/24/20 05:56 Neurontin - PO 600 mg TID LISA Administration Meropenem 1 gm/ Dextrose 100 mls @ 200 mls/hr 01/21/20 15:00 01/24/20 02:31 IVPB 200 mls/hr Q12H LISA Administration Vancomycin HCl 1,000 mg in 250 mls @ 133.333 mls/hr 01/22/20 16:00 01/24/20 03:20 Vancomycin (Pre-Docked) IVPB 133.333 mls/hr Q12H LISA Administration Leflunomide 20 mg 01/21/20 10:00 01/24/20 09:24 Arava - PO 20 mg DAILY LISA Administration Oxycodone HCl 10 mg 01/23/20 15:45 01/24/20 05:55 Roxicodone - PO 10 mg Q6H PRN Administration PAIN LEVEL 6-10 Pramipexole Dihydrochloride 0.25 mg 01/20/20 10:00 01/24/20 09:24 Mirapex - PO 0.25 mg BID LISA Administration Rivaroxaban 20 mg 01/20/20 10:00 01/24/20 09:25 Xarelto PO 20 mg DAILY LISA Administration Sacubitril/Valsartan 1 tab 01/23/20 13:15 01/24/20 09:25 Entresto 24 Mg-26 Mg Tablet PO 1 tab BID LISA Administration Torsemide 50 mg 01/20/20 10:00 01/24/20 09:24 Demadex - PO 50 mg DAILY LISA Administration Vital Signs Period Temp Pulse Resp BP Sys/Marcelo Pulse Ox Last 24 Hr 98.3 F-99.1 F 90-102 20-20 93-123/45-74 97 Constitutional: Yes: No Distress, Calm Respiratory: CTAB Gastrointestinal: Yes: Soft, Abdomen, Obese Cardiovascular: Yes: Pulse Irregular, nl s1, s2, no mrg JVD: no Heart Sounds: Yes: S1, S2 (irreg) Edema: none Neurological: Yes: Alert, Oriented no jaundice, diaphoresis not agitated CBC, BMP 01/23/20 07:00 01/23/20 09:55 NSR, PVCs, prolonged QT Echo: Report Reviewed ( Moderately reduced EF, Moderate MR (this admission); 2018 50-55% with mild MR) Imaging - Results X-ray: Image Reviewed (increase interstitial markings) Assessment/Plan IMP: Epidural abscess, wound infection Acute on chronic systolic CHF, with what appears to be new LV dysfx from 2018 Moderate MR Prolonged QT PAF HTN 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 REC: abd pain, epidural abscess - manage per surgery, ID UTI, bacteremia - manage per primary, ID chronic systolic CHF, nonischemic cardiomyopathy, moderate MR -known nonisch CMP with normal coronaries on cath x 2 -EF has fluctuated 35-55% over the years, likely in relation to severity of untreated NICHOLE, vs ? diabetic (uncontrolled glycemic status, does not f/u with PM D despite repeatedly advised to do so) -EF moderately reduced, last echo here EF 35-40% -does not appear vol overloaded now -cont home torsemide, coreg, and entresto as bp allows (bp on lower side at times, likely from infection). PAF: -Cont Coreg and Xarelto DVT/PE with history of filter: -cont with AC NICHOLE: -not using CPAP
[2020-01-24] MEDS ORDERED: HYDROCORTISONE 1% TOPICAL CREAM 30 GM TUBE TP PRN ×2 (12:16→20:52)
--- NOTE | 2020-01-24 15:27 | PN ---
Progress Note, Physician History of Present Illness: patient with itching all over the body probably due to vanco all cx reports noted awaiting for identification of organism - Current Medication List Current Medications: Active Medications Acetaminophen (Ofirmev Injection -) 1,000 mg IVPB Q6H PRN PRN Reason: PAIN LEVEL 6-10 Stop: 01/25/20 09:38 Carvedilol (Coreg -) 12.5 mg PO BID [facility] Last Admin: 01/24/20 09:22 Dose: Not Given Documented by: Cyanocobalamin (Vitamin B12 -) 1,000 mcg PO DAILY [facility] Last Admin: 01/24/20 09:25 Dose: 1,000 mcg Documented by: Diphenhydramine HCl (Benadryl Oral Solution -) 25 mg PO HS PRN PRN Reason: INSOMNIA Last Admin: 01/23/20 14:34 Dose: 25 mg Documented by: Docusate Sodium (Colace -) 100 mg PO Q8H PRN PRN Reason: CONSTIPATION Last Admin: 01/22/20 09:18 Dose: 100 mg Documented by: Gabapentin (Neurontin -) 600 mg PO TID [facility] Last Admin: 01/24/20 14:33 Dose: 600 mg Documented by: Hydrocortisone (Hytone 1% Cream -) 1 applic TP DAILY PRN PRN Reason: FOR ITCHING Last Admin: 01/24/20 14:34 Dose: 1 applic Documented by: Meropenem 1 gm/ Dextrose 100 mls @ 200 mls/hr IVPB Q12H [facility] Last Admin: 01/24/20 14:35 Dose: 200 mls/hr Documented by: Daptomycin 500 mg/ Sodium (Chloride) 50 mls @ 50 mls/hr IVPB DAILY [facility]; Protocol Leflunomide (Arava -) 20 mg PO DAILY [facility] Last Admin: 01/24/20 09:24 Dose: 20 mg Documented by: Oxycodone HCl (Roxicodone -) 10 mg PO Q6H PRN PRN Reason: PAIN LEVEL 6-10 Last Admin: 01/24/20 05:55 Dose: 10 mg Documented by: Pramipexole Dihydrochloride (Mirapex -) 0.25 mg PO BID [facility] Last Admin: 01/24/20 09:24 Dose: 0.25 mg Documented by: Rivaroxaban (Xarelto) 20 mg PO DAILY [facility] Last Admin: 01/24/20 09:25 Dose: 20 mg Documented by: Sacubitril/Valsartan (Entresto 24 Mg-26 Mg Tablet) 1 tab PO BID [facility] Last Admin: 01/24/20 09:25 Dose: 1 tab Documented by: Torsemide (Demadex -) 50 mg PO DAILY [facility] Last Admin: 01/24/20 09:24 Dose: 50 mg Documented by: - Objective Vital Signs: Vital Signs Temperature 98.3 F 01/24/20 05:00 Pulse Rate 94 H 01/24/20 10:00 Respiratory Rate 18 01/24/20 10:00 Blood Pressure 90/40 L 01/24/20 10:00 O2 Sat by Pulse Oximetry (%) 96 01/24/20 09:00 Constitutional: Yes: No Distress, Calm Cardiovascular: Yes: S1, S2 Respiratory: Yes: Regular, CTA Bilaterally Gastrointestinal: Yes: Normal Bowel Sounds, Soft Musculoskeletal: Yes: WNL Extremities: Yes: WNL Wound/Incision: Yes: Draining Neurological: Yes: Alert, Oriented Psychiatric: Yes: Alert, Oriented Labs: CBC, BMP 01/23/20 07:00 01/23/20 09:55 INR, PTT INR 1.57 (0.83-1.09) H 01/20/20 06:45 Assessment/Plan roblem List - Problems (1) UTI (urinary tract infection) Code(s): N39.0 - URINARY TRACT INFECTION, SITE NOT SPECIFIED (2) Epidural abscess Code(s): G06.2 - EXTRADURAL AND SUBDURAL ABSCESS, UNSPECIFIED (3) Chronic systolic heart failure Code(s): I50.22 - CHRONIC SYSTOLIC (CONGESTIVE) HEART FAILURE (4) Diabetes Code(s): E11.9 - TYPE 2 DIABETES MELLITUS WITHOUT COMPLICATIONS Qualifiers: Diabetes mellitus type: type 2 (5) History of DVT (deep vein thrombosis) Code(s): Z86.718 - PERSONAL HISTORY OF OTHER VENOUS THROMBOSIS AND EMBOLISM (6) Hypertension Code(s): I10 - ESSENTIAL (PRIMARY) HYPERTENSION (7) Non-ischemic cardiomyopathy Code(s): I42.9 - CARDIOMYOPATHY, UNSPECIFIED (8) Obstructive sleep apnea Code(s): G47.33 - OBSTRUCTIVE SLEEP APNEA (ADULT) (PEDIATRIC) Assessment/Plan Bacteremia UTI Epidural abscess - s/p drainage/DASH in place DM CHF Hx of DVT AFIB continue meropenam will change vanco to dapto
[2020-01-24] MEDS ORDERED: DAPTOMYCIN 500 MG in SODIUM CHLORIDE 50 ML IVPB SCH (15:30)
[2020-01-24] MEDS ORDERED: diphenhydrAMINE HCL 25 MG CAPSULE (FP) PO PRN (17:28)
--- NOTE | 2020-01-24 18:35 | PN ---
Teaching Attending Note Name of Resident: Gerardo Helms ATTENDING PHYSICIAN STATEMENT I saw and evaluated the patient. I reviewed the resident's note and discussed the case with the resident. I agree with the resident's findings and plan as documented. SUBJECTIVE: Patient seen and examined at bedside, low BP ?bleeding/volume depletion/over medication, will hold BP/pain meds and transfer to Tele and give boluses PRn for low BP. OBJECTIVE: Gen: AAO x 3, NAD, tired appearing HEENT: NCAT, eomi, neck supple, dry MM Cardio: Irregularly irregular, normal rate Pulm: CTAb, no wheezing, crackles Abd: obese, soft, nontender Back: incision dressing cdi, DASH drain without drainage Ext: no edema Vital Signs - 24 hr 01/23/20 01/24/20 01/24/20 20:55 01:30 05:00 Temperature 99.1 F 98.3 F Pulse Rate 102 H 90 Respiratory Rate Blood Pressure 123/74 103/45 L O2 Sat by Pulse 97 Oximetry (%) 01/24/20 01/24/20 01/24/20 09:00 10:00 18:00 Temperature 97.9 F Pulse Rate 94 H 89 Respiratory 18 Rate Blood Pressure 90/40 L 65/44 L O2 Sat by Pulse 96 Oximetry (%) Microbiology 01/19/20 12:30 Blood - Peripheral Venous Blood Culture - Final NO GROWTH AFTER 5 DAYS INCUBATION 01/21/20 16:40 Drainage Gram Stain - Final 01/21/20 16:40 Drainage Body Fluid Culture - Preliminary Lactose Fermenting Neg Bacilli Group D Strep Or Entero Coccus Pending Organism Diphtheroid/Corynebacterium 01/21/20 16:45 Body Fluid - Other Gram Stain - Final 01/21/20 16:45 Body Fluid - Other Body Fluid Culture - Preliminary Mr S Aureus Lactose Fermenting Neg Bacilli Gram Negative Alfonso Gram Negative Alfonso#2 Gram Negative Alfonso#3 Proteus Species Pending Organism 01/19/20 12:30 Blood - Peripheral Venous Blood Culture - Preliminary Non Lactose Fermenting Gnb 01/22/20 13:40 Blood - Peripheral Venous Blood Culture - Preliminary NO GROWTH OBTAINED AFTER 48 HOURS, INCUBATION TO CONTINUE FOR 3 DAYS. 01/22/20 13:50 Blood - Peripheral Venous Blood Culture - Preliminary NO GROWTH OBTAINED AFTER 48 HOURS, INCUBATION TO CONTINUE FOR 3 DAYS. 06/15/20 12:15 Urine - Urine Clean Catch Urine Culture - Final NO GROWTH OBTAINED 01/19/20 18:14 Urine - Urine Clean Catch Urine Culture - Final Contaminated: Please Repeat Laboratory Results - last 24 hr 01/24/20 01/24/20 11:03 16:28 POC Glucometer 163 234 Home Medications Medication Instructions Recorded Insulin Lispro Protamin/Lispro 22 unit SQ BIDAC 12/15/15 [Humalog Mix 75-25 Kwikpen] Zolpidem Tartrate [Ambien] 10 mg PO HS PRN 06/01/17 Leflunomide [Arava] 20 mg PO DAILY 07/26/18 Torsemide 50 mg PO DAILY 07/26/18 Baclofen 10 mg PO PRN PRN 07/16/19 Rivaroxaban [Xarelto -] 20 mg PO DAILY #30 tablet 10/03/19 Carvedilol [Coreg -] 12.5 mg PO BID 11/23/19 Gabapentin [Neurontin -] 600 mg PO TID 11/23/19 Diazepam 10 mg PO DAILY 12/28/19 Oxycodone HCl/Acetaminophen 1 each PO QID 12/28/19 [Percocet 10-325 mg Tablet] Pramipexole Di-HCl [Mirapex] 0.25 mg PO BID 12/28/19 Cyanocobalamin [Vitamin B12 -] 1,000 mcg PO DAILY #30 tablet 01/10/20 Ferrous Sulfate [Feosol] 325 mg PO BIDWM #60 ud 01/10/20 Sacubitril/Valsartan [Entresto 24 1 each PO BID #60 tablet 01/10/20 mg-26 mg Tablet] Current Medications Generic Name Dose Route Start Last Admin Trade Name Tom PRN Reason Stop Dose Admin Acetaminophen 1,000 mg 01/24/20 09:38 Ofirmev Injection - IVPB 01/25/20 09:38 Q6H PRN PAIN LEVEL 6-10 Cyanocobalamin 1,000 mcg 01/20/20 10:00 01/24/20 09:25 Vitamin B12 - PO 1,000 mcg DAILY LISA Administration Docusate Sodium 100 mg 01/21/20 11:58 01/22/20 09:18 Colace - PO 100 mg Q8H PRN Administration CONSTIPATION Gabapentin 600 mg 01/20/20 22:00 01/24/20 14:33 Neurontin - PO 600 mg TID LISA Administration Hydrocortisone 1 applic 01/24/20 12:16 01/24/20 14:34 Hytone 1% Cream - TP 1 applic DAILY PRN Administration FOR ITCHING Meropenem 1 gm/ Dextrose 100 mls @ 200 mls/hr 01/21/20 15:00 01/24/20 14:35 IVPB 200 mls/hr Q12H LISA Administration Daptomycin 500 mg/ Sodium 50 mls @ 50 mls/hr 01/24/20 15:30 01/24/20 18:13 Chloride IVPB 50 mls/hr DAILY LISA Administration Protocol Leflunomide 20 mg 01/21/20 10:00 01/24/20 09:24 Arava - PO 20 mg DAILY LISA Administration Pramipexole Dihydrochloride 0.25 mg 01/20/20 10:00 01/24/20 09:24 Mirapex - PO 0.25 mg BID LISA Administration Rivaroxaban 20 mg 01/20/20 10:00 01/24/20 09:25 Xarelto PO 20 mg DAILY LISA Administration ASSESSMENT AND PLAN: 74 F S/p L4/5 laminectomy then L5/S1 seroma with recent epidural abscess drainage s/p I and D CHF (EF 35-40%) RA DM 2 HTN hx DVT/PE Afib (on Xarelto) Multiple spine surgeries Complex wound closure and wound vac placement 11/26 s/p 5 weeks antibiotics via PICC (rocephin) Plan: DC Vancomycin d/t rash, switched to Daptomycin, cont. Meropenem, follow cultures Hold BP/pain/CHF meds, bolus as needed for BP, will obtain labs if decrease in H gb will re-image to r/o bleeding from surgery site IV Tylenol for pain control, hold Benadryl due to low BP Xarelto for DVT ppx/PE history transfer to telemetry
[2020-01-24] MEDS ORDERED: SODIUM CHLORIDE 0.9% 1000 ML INFUS.BAG IV ONE (18:38)
[2020-01-24] MEDS ORDERED: DOCUSATE SODIUM 100 MG CAPSULE (FP) PO PRN (20:52)
[2020-01-24] MEDS: FERROUS SO4 325 MG TABLET (FP) PO SCH (20:54)
[2020-01-24 21:07] LABS: BASO % 0.3 % (0-2.0); EOS % 4.8 % (0-4.5); HEMATOCRIT 38.1 % (32.4-45.2); MCH 27.3 pg (25.7-33.7); MCHC 31.6 g/dl (32.0-36.0); MEAN CELL VOLUME 86.3 fl (80-96); MEAN PLT VOLUME 8.3 fl (7.5-11.1); MONO % 10.9 % (3.8-10.2); PLATELET COUNT 234 K/MM3 (134-434); RBC 4.41 M/mm3 (3.60-5.2); RDW 18.3 % (11.6-15.6); WHITE BLOOD COUNT 12.8 K/mm3 (4.0-10.0)
[2020-01-24 21:40] LABS: ALBUMIN 2.4 g/dl (3.4-5.0); ALK PHOS 168 U/L (45-117); ANION GAP 13 MMOL/L (8-16); BILIRUBIN,TOTAL 0.4 mg/dL (0.2-1); BLOOD UREA NITROGEN 46.3 mg/dL (7-18); CALCIUM 8.6 mg/dL (8.5-10.1); CHLORIDE 88 mmol/L (98-107); CO2 25 mmol/L (21-32); CREATININE 3.3 mg/dL (0.55-1.3); GLUCOSE,RANDOM 155 mg/dL (74-106); POTASSIUM 4.3 mmol/L (3.5-5.1); SGOT/AST 15 U/L (15-37); SGPT/ALT 12 U/L (13-61); SODIUM 126 mmol/L (136-145); TOT PROT 6.6 g/dl (6.4-8.2)
[2020-01-24 21:53] LABS: PLATELET ESTIMATE ADEQUATE
[2020-01-24] MEDS ORDERED: GABAPENTIN 300 MG CAPSULE PO SCH (22:00)
[2020-01-24] MEDS ORDERED: PRAMIPEXOLE DIHYDROCHLORIDE 0.25 MG TABLET PO SCH (22:00)
--- NOTE | 2020-01-24 23:12 | PN ---
Progress Note (short form) - Note Progress Note: RN asked to evaluate the patient. She was hypotensive 80/40 s/p 1L fluids. BMP showed new hyponatremia (126) and ELIZABETH (Cr 3.3) with low urine output (40cc during the day). Pt is alert and not in distress. #?worsening sepsis -CXR -LA -UA -blood cultures -renal U/S -EKG -troponin -ICU consult -hold meds that are not essential at this time -meropenem and daptomycin were already given at ordered times
[2020-01-25] MEDS ORDERED: VASOPRESSIN 20 UNITS/ML VIAL IV ONE (00:41)
[2020-01-25 00:44] LABS: EPI CELLS >36 /uL (0-25.1); HYALINE CASTS 10 /uL (0-3.1); URINE APPEARANCE TURBID; URINE BACTERIA 98 /uL (0-1359); URINE BILIRUBIN NEGATIVE (NEGATIVE); URINE COLOR YELLOW; URINE GLUCOSE (UA) NEGATIVE (NEGATIVE); URINE KETONE TRACE (NEGATIVE); URINE LEUK ESTERASE 2+ (NEGATIVE); URINE NITRITE NEGATIVE (NEGATIVE); URINE PROTEIN 1+ (NEGATIVE); URINE RBC 13 /uL (0-23.9); URINE UROBILINOGEN 0.2 mg/dL (0.2-1.0); URINE WBC 124 /uL (0-25.8)
[2020-01-25] MEDS ORDERED: VASOPRESSIN 40 UNITS in SODIUM CHLORIDE 98 ML IVPB SCH ×2 (00:45→08:49)
[2020-01-25] MEDS ORDERED: LIDOCAINE 5% TOPICAL PATCH TP ONE (01:30)
[2020-01-25] MEDS ORDERED: MEROPENEM 1 GM VIAL (RESTRICTED TO ID) IVPB ONE ×2 (01:32→14:00)
[2020-01-25] MEDS ORDERED: DEXTROSE 5%-WATER 100 ML IVPB ONE ×2 (01:32→14:00)
[2020-01-25] MEDS ORDERED: NOREPINEPHRINE BITARTRATE 4 MG/4 ML ML IV ONE (01:50)
[2020-01-25] MEDS ORDERED: HYDROmorphone HCL CARPU-JECT 2 MG/1 ML DISP.SYRIN IVPUSH ONE (02:11)
[2020-01-25] MEDS ORDERED: HYDROmorphone HCl 2 MG/ML VIAL IVPUSH ONE (02:11)
[2020-01-25] MEDS ORDERED: HYDROmorphone HCl 2 MG/ML VIAL ONE (02:14)
--- NOTE | 2020-01-25 02:17 | PROC ---
Central Line Insertion Indication: Vasopressor Risks and Benefits Explained: Yes (emergent) Consent on Chart: No (emergent) Central Line: Triple Lumen Catheter Anesthesia: 1% Lidocaine Sterile Technique: Yes Ultrasound Guided Assistance: Yes Position: Left Internal Jugular Post Insertion: Yes: Bilateral Chest Expansion
[2020-01-25] MEDS: MUPIROCIN 2% TOPICAL OINTMENT FOR DECOLONIZATION NS SCH ×3 (02:58→21:30)
[2020-01-25] MEDS: NOREPINEPHRINE BITARTRATE 8,000 MCG in DEXTROSE 5%-WATER - 492 ML IV SCH (02:59)
[2020-01-25] MEDS ORDERED: MEROPENEM 1 GM in DEXTROSE 5%-WATER 100 ML IVPB SCH (03:00)
[2020-01-25 04:10] LABS: URINE CRYSTALS NONE SEEN /hpf; YEAST NONE SEEN (NEGATIVE)
--- NOTE | 2020-01-25 04:38 | CONSULT ---
Consultation: REQUESTING PROVIDER: Telemetry CONSULT REQUEST: We have been asked to medically evaluate this patient for hypotension despite fluid resuscitation. HISTORY OF PRESENT ILLNESS: 74 y/o female PMH CHF (EF 35-40%), RA, DM 2, HTN, Hx DVT/PE, a fib (on Xarelto), known non-ischemic cardiomyopathy, multiple spine surgeries, s/p L4/5 laminectomy then L5/S1 seroma with recent epidural abscess drainage s/p I and D, complex wound closure and wound vac placement 11/26 s/p 5 weeks antibiotics via PICC (rocephin), recently d/c'd for CHF exacerbation on 01/09 & sent home w/ home VNS. Presenting on this admission for lower abdominal and back pain admitted for sepsis. Today she demonstrated persistently low BP with systolic pressures in 70s and diastolic pressures in the 40s on manual and repeat manual readings. She was volume resuscitated but given h/o CHF the ICU was consulted to address hypotension. Pt subjectively stabel, denying SPARROW, visions changes, SOB, and cp. Her primary complaint is back pain, which is chronic. REVIEW OF SYSTEMS: CONSTITUTIONAL: Absent: fever, chills, diaphoresis, generalized weakness, malaise, loss of appetite, weight change HEENT: Absent: rhinorrhea, nasal congestion, throat pain, throat swelling, difficulty swallowing, mouth swelling, ear pain, eye pain, visual changes CARDIOVASCULAR: Absent: chest pain, syncope, palpitations, irregular heart rate, lightheadedness, peripheral edema RESPIRATORY: Absent: cough, shortness of breath, dyspnea with exertion, orthopnea, wheezing, stridor, hemoptysis GASTROINTESTINAL: Absent: abdominal pain, abdominal distension, nausea, vomiting, diarrhea, constipation, melena, hematochezia GENITOURINARY: Absent: dysuria, frequency, urgency, hesitancy, hematuria, flank pain, genital pain MUSCULOSKELETAL: Absent: myalgia, arthralgia, joint swelling, back pain, neck pain SKIN: Absent: rash, itching, pallor HEMATOLOGIC/IMMUNOLOGIC: Absent: easy bleeding, easy bruising, lymphadenopathy, frequent infections ENDOCRINE: Absent: unexplained weight gain, unexplained weight loss, heat intolerance, cold intolerance NEUROLOGIC: Absent: headache, focal weakness or paresthesias, dizziness, unsteady gait, seizure, mental status changes, bladder or bowel incontinence PSYCHIATRIC: Absent: anxiety, depression, suicidal or homicidal ideation, hallucinations. PHYSICAL EXAMINATION Vital Signs - 24 hr 01/24/20 01/24/20 01/24/20 05:00 09:00 10:00 Temperature 98.3 F Pulse Rate 90 94 H Respiratory 18 Rate Blood Pressure 103/45 L 90/40 L O2 Sat by Pulse 96 Oximetry (%) 01/24/20 01/24/20 01/24/20 18:00 19:27 20:15 Temperature 97.9 F 98.5 F Pulse Rate 89 90 92 H Respiratory 18 18 Rate Blood Pressure 65/44 L 91/41 L 125/79 O2 Sat by Pulse Oximetry (%) 01/24/20 01/24/20 01/24/20 21:10 21:30 21:40 Temperature 98.0 F Pulse Rate 104 H Respiratory 20 20 Rate Blood Pressure 80/42 L 82/38 L O2 Sat by Pulse 96 Oximetry (%) 01/24/20 01/25/20 01/25/20 23:44 00:30 01:00 Temperature 98 F Pulse Rate 84 86 Respiratory 20 18 Rate Blood Pressure 74/42 L 74/42 L 100/54 L O2 Sat by Pulse 96 Oximetry (%) 01/25/20 01/25/20 01/25/20 01:30 01:34 02:00 Temperature 98.4 F Pulse Rate 90 80 104 H Respiratory 22 H 18 Rate Blood Pressure 112/60 74/44 L 118/72 O2 Sat by Pulse Oximetry (%) 01/25/20 01/25/20 02:30 02:59 Temperature Pulse Rate 88 88 Respiratory 20 Rate Blood Pressure 114/58 L 76/54 L O2 Sat by Pulse Oximetry (%) GENERAL: Awake, alert, and fully oriented, in no acute distress. HEAD: Normal with no signs of trauma. EYES: Pupils equal, round and reactive to light, extraocular movements intact, sclera anicteric, conjunctiva clear. No lid lag. EARS, NOSE, THROAT: Ears normal, nares patent, oropharynx clear without exudates. Moist mucous membranes. NECK: Normal range of motion, supple without lymphadenopathy, JVD, or masses. LUNGS: Breath sounds equal, clear to auscultation bilaterally. No wheezes, and no crackles. No accessory muscle use. HEART: Regular rate and rhythm, normal S1 and S2 without murmur, rub or gallop. ABDOMEN: Soft, nontender, not distended, normoactive bowel sounds, no guarding, no rebound, no masses. No hepatomegaly or splenomegaly. Skin: Incision dressing. Cellulits. UPPER EXTREMITIES: 2+ pulses, warm, well-perfused. No cyanosis. No clubbing. Cap refill <2 seconds. No peripheral edema. LOWER EXTREMITIES: 2+ pulses, warm, well-perfused. No calf tenderness. No peripheral edema. NEUROLOGICAL: Cranial nerves II-XII intact. Normal speech. Normal gait. PSYCHIATRIC: Cooperative. Good eye contact. Appropriate mood and affect. Laboratory Results - last 24 hr 01/24/20 01/24/20 01/24/20 11:03 16:28 20:08 WBC RBC Hgb Hct MCV MCH MCHC RDW Plt Count MPV Absolute Neuts (auto) Neutrophils % Lymphocytes % Monocytes % Eosinophils % Basophils % Nucleated RBC % Platelet Estimate Platelet Comment Sodium Potassium Chloride Carbon Dioxide Anion Gap BUN Creatinine Est GFR (CKD-EPI)AfAm Est GFR (CKD-EPI)NonAf POC Glucometer 163 234 Random Glucose Serum Osmolality Calcium Total Bilirubin AST ALT Alkaline Phosphatase Troponin I Total Protein Albumin Urine Color Urine Appearance Urine pH Ur Specific [place] Urine Protein Urine Glucose (UA) Urine Ketones Urine Blood Urine Nitrite Urine Bilirubin Urine Urobilinogen Ur Leukocyte Esterase Urine WBC (Auto) Urine RBC (Auto) Urine Casts (Auto) U Pathogenic Cast Auto U Epithel Cells (Auto) Urine Crystals (Auto) Urine Bacteria (Auto) Urine Yeast (Auto) Urine Osmolality Ur Random Sodium Ur Random Potassium Ur Random Chloride Vancomycin Pre-Dose 37.4 H* 01/24/20 01/24/20 01/24/20 20:08 20:08 23:00 WBC 12.8 H RBC 4.41 Hgb 12.0 Hct 38.1 MCV 86.3 MCH 27.3 MCHC 31.6 L RDW 18.3 H Plt Count 234 MPV 8.3 Absolute Neuts (auto) 8.9 H Neutrophils % 70.0 Lymphocytes % 14.0 D Monocytes % 10.9 H Eosinophils % 4.8 H Basophils % 0.3 Nucleated RBC % 0 Platelet Estimate Adequate Platelet Comment No clumping noted Sodium 126 L Potassium 4.3 Chloride 88 L Carbon Dioxide 25 Anion Gap 13 BUN 46.3 H Creatinine 3.3 H Est GFR (CKD-EPI)AfAm 15.28 Est GFR (CKD-EPI)NonAf 13.19 POC Glucometer Random Glucose 155 H Serum Osmolality 281 Calcium 8.6 Total Bilirubin 0.4 AST 15 ALT 12 L Alkaline Phosphatase 168 H Troponin I < 0.02 Total Protein 6.6 Albumin 2.4 L Urine Color Urine Appearance Urine pH Ur Specific [place] Urine Protein Urine Glucose (UA) Urine Ketones Urine Blood Urine Nitrite Urine Bilirubin Urine Urobilinogen Ur Leukocyte Esterase Urine WBC (Auto) Urine RBC (Auto) Urine Casts (Auto) U Pathogenic Cast Auto U Epithel Cells (Auto) Urine Crystals (Auto) Urine Bacteria (Auto) Urine Yeast (Auto) Urine Osmolality Ur Random Sodium Ur Random Potassium Ur Random Chloride Vancomycin Pre-Dose 01/24/20 01/24/20 01/25/20 23:59 23:59 00:00 WBC RBC Hgb Hct MCV MCH MCHC RDW Plt Count MPV Absolute Neuts (auto) Neutrophils % Lymphocytes % Monocytes % Eosinophils % Basophils % Nucleated RBC % Platelet Estimate Platelet Comment Sodium Potassium Chloride Carbon Dioxide Anion Gap BUN Creatinine Est GFR (CKD-EPI)AfAm Est GFR (CKD-EPI)NonAf POC Glucometer Random Glucose Serum Osmolality Calcium Total Bilirubin AST ALT Alkaline Phosphatase Troponin I Total Protein Albumin Urine Color Yellow Urine Appearance Turbid Urine pH 5.0 Ur Specific [place] 1.018 Urine Protein 1+ H Urine Glucose (UA) Negative Urine Ketones Trace H Urine Blood Negative Urine Nitrite Negative Urine Bilirubin Negative Urine Urobilinogen 0.2 Ur Leukocyte Esterase 2+ H Urine WBC (Auto) 124 Urine RBC (Auto) 13 Urine Casts (Auto) 10 U Pathogenic Cast Auto None seen U Epithel Cells (Auto) >36 Urine Crystals (Auto) None seen Urine Bacteria (Auto) 98 Urine Yeast (Auto) None seen Urine Osmolality 268 L Ur Random Sodium 23 L Ur Random Potassium 34.0 Ur Random Chloride 29 L Vancomycin Pre-Dose Active Medications Generic Name Dose Route Start Last Admin Trade Name Freq PRN Reason Stop Dose Admin Acetaminophen 1,000 mg 01/24/20 20:52 01/24/20 22:24 Ofirmev Injection - IVPB 01/25/20 09:38 1,000 mg Q6H PRN Administration PAIN LEVEL 6-10 Chlorhexidine Gluconate 1 applic 01/25/20 22:00 Hibiclens For Decolonization - TP HS LISA Cyanocobalamin 1,000 mcg 01/25/20 10:00 Vitamin B12 - PO DAILY LISA Docusate Sodium 100 mg 01/24/20 20:52 Colace - PO Q8H PRN CONSTIPATION Gabapentin 600 mg 01/24/20 22:00 01/24/20 21:48 Neurontin - PO 600 mg TID [facility] Administration Hydrocortisone 1 applic 01/24/20 20:52 01/24/20 21:49 Hytone 1% Cream - TP 1 applic DAILY PRN Administration FOR ITCHING Daptomycin 500 mg/ Sodium 50 mls @ 50 mls/hr 01/25/20 10:00 Chloride IVPB DAILY [facility] Protocol Meropenem 1 gm/ Dextrose 100 mls @ 200 mls/hr 01/25/20 03:00 01/25/20 02:16 IVPB 200 mls/hr Q12H LISA Administration Vasopressin 40 units/ Sodium 100 mls @ 5 mls/hr 01/25/20 00:45 01/25/20 01:34 Chloride IVPB 6 units/hr ASDIR LISA 15 mls/hr Administration Protocol 2 UNITS/HR Norepinephrine Bitartrate 8, 500 mls @ 9.588 mls/hr 01/25/20 02:30 01/25/20 02:59 000 mcg/ Dextrose IV 2 mcg/kg/min ASDIR LISA 639.225 mls/hr Administration Protocol 0.03 MCG/KG/MIN Leflunomide 20 mg 01/25/20 10:00 Arava - PO DAILY [facility] Lidocaine 1 patch 01/25/20 10:00 Lidoderm Patch - TP DAILY [facility] Miscellaneous 1 each 01/25/20 22:00 Lidoderm Patch Removal MC DAILY@2200 [facility] Miscellaneous 1 each 01/25/20 13:30 Lidoderm Patch Removal MC 01/25/20 13:31 ONCE ONE Mupirocin 1 applic 01/25/20 02:00 01/25/20 02:58 Bactroban Ointment (For Decolonization) - NS 01/30/20 01:59 1 applic BID [facility] Administration Pramipexole Dihydrochloride 0.25 mg 01/24/20 22:00 01/24/20 21:48 Mirapex - PO 0.25 mg BID [facility] Administration Rivaroxaban 20 mg 01/25/20 10:00 Xarelto PO DAILY [facility] ASSESSMENT/PLAN: 74 y/o female PMH CHF (EF 35-40%), RA, DM 2, HTN, Hx DVT/PE, a fib (on Xarelto), known non-ischemic cardiomyopathy, multiple spine surgeries, s/p L4/5 laminectomy then L5/S1 seroma with recent epidural abscess drainage s/p I and D, complex wound closure and wound vac placement 11/26 s/p 5 weeks antibiotics via PICC (rocephin), recently d/c'd for CHF exacerbation on 01/09 & sent home w/ home VNS. Presenting on this admission for lower abdominal and back pain admitted for sepsis, now in the ICU for BP support with pressors. # Neuro. AOx3, No focal deficits Chronic back pain Gabapentin, lidocaine Pt reports morphine allergy: hives # Pulm CoVid-19 NEGATIVE Saturating 100% on room air # ID Meropenem for UTI (has hx of ESBL infxns)- renally dosed- started 01/19 CT A/P: incr size of epidural abscess collection Blood cx: GN bacilli x 1 bottle. Repeat BCx (01/22/2020) negative DASH drain fluid cultures with polymicrobial growth. Sensitivity pending Repeat urine cultures (1st contaminated): negative # CVS Hold Coreg in setting of hypotension Xarelto 20mg daily Levophed CHF (EF 35-40%) # Renal Acute Kidney Injury Cr 3.3 <- 0.9 # MSK/Rheum Leflunomide for RA # ENDO DM ISS # Tubes, Lines, Drain LEFT IJ 01/24 # FEN 0 (CHF with EF 35-40%) Cont. to monitor DM, low sodium diet # ppx Xarelto # Disposition Full code ICU monitoring Dispo: We will continue to follow the patient. Thank you for this consultative opportunity, Dr. Michelle Visit type - Emergency Visit Emergency Visit: No - New Patient This patient is new to me today: Yes Date on this admission: 01/25/20 - Critical Care Critical Care patient: Yes Total Critical Care Time (in minutes): 36 Critical Care Statement: The care of this patient involved high complexity decision making to prevent further life threatening deterioration of the patient's condition and/or to evaluate & treat vital organ system(s) failure or risk of failure. ATTENDING PHYSICIAN STATEMENT I saw and evaluated the patient. I reviewed the resident's note and discussed the case with the resident. I agree with the resident's findings and plan as documented. SUBJECTIVE: OBJECTIVE: ASSESSMENT AND PLAN:
[2020-01-25] MEDS: oxyCODONE HCL 5 MG TABLET PO PRN ×3 (04:55→18:44)
[2020-01-25] MEDS: diazePAM 5 MG TABLET PO SCH ×2 (04:55→09:43)
--- NOTE | 2020-01-25 06:21 | PN ---
Progress Note, Physician Chief Complaint: c/o back pain overnight, required pain meds In ICU TELE: AF, controlled with rare VPCs and occ V couplets Denies CP/SOB/dizziness. Intermittently hypotensive on 01/22, 01/23 with sig bump in Creat in last 48 hours Na+ also trending down History of Present Illness: Acute renal failure Epidural abscess PAF Hypotensive now requiring 2 pressors. - Current Medication List Current Medications: Active Medications Acetaminophen (Ofirmev Injection -) 1,000 mg IVPB Q6H PRN PRN Reason: PAIN LEVEL 6-10 Stop: 01/25/20 09:38 Last Admin: 01/24/20 22:24 Dose: 1,000 mg Documented by: Chlorhexidine Gluconate (Hibiclens For Decolonization -) 1 applic TP HS [facility] Cyanocobalamin (Vitamin B12 -) 1,000 mcg PO DAILY LISA Diazepam (Valium -) 10 mg PO DAILY LISA Last Admin: 01/25/20 04:55 Dose: 10 mg Documented by: Docusate Sodium (Colace -) 100 mg PO Q8H PRN PRN Reason: CONSTIPATION Gabapentin (Neurontin -) 600 mg PO TID LISA Last Admin: 01/24/20 21:48 Dose: 600 mg Documented by: Hydrocortisone (Hytone 1% Cream -) 1 applic TP DAILY PRN PRN Reason: FOR ITCHING Last Admin: 01/24/20 21:49 Dose: 1 applic Documented by: Daptomycin 500 mg/ Sodium (Chloride) 50 mls @ 50 mls/hr IVPB DAILY [facility]; Protocol Meropenem 1 gm/ Dextrose 100 mls @ 200 mls/hr IVPB Q12H LISA Last Admin: 01/25/20 02:16 Dose: 200 mls/hr Documented by: Vasopressin 40 units/ Sodium (Chloride) 100 mls @ 5 mls/hr IVPB ASDIR LISA; Protocol Last Titration: 01/25/20 04:44 Dose: 0 units/hr, 0 mls/hr Documented by: Norepinephrine Bitartrate 8, (000 mcg/ Dextrose) 500 mls @ 9.588 mls/hr IV ASDIR LIAS; Protocol Last Titration: 01/25/20 04:44 Dose: 5 mcg/kg/min, 1,598.063 mls/hr Documented by: Leflunomide (Arava -) 20 mg PO DAILY [facility] Lidocaine (Lidoderm Patch -) 1 patch TP DAILY [facility] Miscellaneous (Lidoderm Patch Removal) 1 each MC DAILY@2200 [facility] Miscellaneous (Lidoderm Patch Removal) 1 each MC ONCE ONE Stop: 01/25/20 13:31 Mupirocin (Bactroban Ointment (For Decolonization) -) 1 applic NS BID [facility] Stop: 01/30/20 01:59 Last Admin: 01/25/20 02:58 Dose: 1 applic Documented by: Oxycodone HCl (Roxicodone -) 10 mg PO Q6H PRN PRN Reason: PAIN LEVEL 6-10 Last Admin: 01/25/20 04:55 Dose: 10 mg Documented by: Pramipexole Dihydrochloride (Mirapex -) 0.25 mg PO BID [facility] Last Admin: 01/24/20 21:48 Dose: 0.25 mg Documented by: Rivaroxaban (Xarelto) 20 mg PO DAILY [facility] - Objective Vital Signs: Vital Signs Temperature 98.4 F 01/25/20 02:00 Pulse Rate 142 H 01/25/20 04:44 Respiratory Rate 01/25/20 02:30 Blood Pressure 143/75 01/25/20 04:44 O2 Sat by Pulse Oximetry (%) 96 01/25/20 00:30 Constitutional: Yes: No Distress HENT: Yes: Other (left IJ) Cardiovascular: Yes: Pulse Irregular Respiratory: Yes: CTA Bilaterally Gastrointestinal: Yes: Soft (nt), Abdomen, Obese Edema: No Peripheral Pulses WNL: Yes Neurological: Yes: Alert, Oriented Labs: CBC, BMP 01/24/20 20:08 01/24/20 20:08 INR, PTT INR 1.57 (0.83-1.09) H 01/20/20 06:45 Laboratory Tests 01/19/20 01/19/20 01/20/20 12:30 23:40 06:45 WBC Hgb Plt Count INR 1.57 H Sodium Potassium BUN Creatinine 1.6 H COVID-19 ([facility]) Not detected 01/23/20 01/25/20 01/25/20 09:55 05:30 05:30 WBC 12.5 H Hgb 10.2 L Plt Count 295 D INR Sodium 126 L Potassium 4.2 BUN 52.3 H Creatinine 0.9 3.2 H COVID-19 ([facility]) - ....Imaging EKG: Image Reviewed Assessment/Plan IMP: Epidural abscess, wound infection Acute renal failure Hyponatremia Acute on chronic systolic CHF, with what appears to be new LV dysfx from 2018 Moderate MR Prolonged QT PAF HTN 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 REC: abd pain, epidural abscess: - manage per surgery, ID acute renal failure: -Suspect ATN due to periods of intermittent hypotension on 01/22, 01/23 -Renal following -On pressors to maintain MAP 60 -Avoid nephrotoxins -renally dose meds, will adjust Xarelto Hypotension: -Now requiring pressors -Etiology unclear: ?volume depletion, ? sepsis -As per Critical Care, currently requiring pressors -f/u blood cultures UTI, bacteremia: - manage per primary, ID chronic systolic CHF, nonischemic cardiomyopathy, moderate MR: -known nonisch CMP with normal coronaries on cath x 2 -EF has fluctuated 35-55% over the years, likely in relation to severity of untreated NICHOLE, vs ? diabetic (uncontrolled glycemic status, does not f/u with PMD despite repeatedly advised to do so) -EF moderately reduced, last echo here EF 35-40% -does not appear vol overloaded now -in setting hypotension, hold torsemide, coreg, and entresto for now PAF: -Cont Xarelto, dose adjust for GFR DVT/PE with history of filter: -cont with AC NICHOLE: -not using CPAP
[2020-01-25 06:52] LABS: BASO % 0.3 % (0-2.0); EOS % 4.5 % (0-4.5); HEMATOCRIT 31.9 % (32.4-45.2); HEMOGLOBIN 10.2 GM/dL (10.7-15.3); LYMPH % 12.6 % (8-40); MCHC 31.9 g/dl (32.0-36.0); MEAN CELL VOLUME 84.8 fl (80-96); MEAN PLT VOLUME 8.1 fl (7.5-11.1); MONO % 10.7 % (3.8-10.2); NEUT % 71.9 % (42.8-82.8); PLATELET COUNT 295 K/MM3 (134-434); RBC 3.77 M/mm3 (3.60-5.2); RDW 18.3 % (11.6-15.6); WHITE BLOOD COUNT 12.5 K/mm3 (4.0-10.0)
[2020-01-25 07:15] LABS: ALBUMIN 2.2 g/dl (3.4-5.0); BILIRUBIN,TOTAL 0.5 mg/dL (0.2-1); BLOOD UREA NITROGEN 52.3 mg/dL (7-18); CALCIUM 8.6 mg/dL (8.5-10.1); CREATININE 3.2 mg/dL (0.55-1.3); POTASSIUM 4.2 mmol/L (3.5-5.1); TOT PROT 5.9 g/dl (6.4-8.2)
--- NOTE | 2020-01-25 07:55 | PN ---
Progress Note (short form) - Note Progress Note: ICU PROGRESS UPDATE HPI from ED: 74YOF with h/o CHF (EF 35-40%), RA, DM 2, HTN, Hx DVT/PE, a fib (on Xarelto), known non-ischemic cardiomyopathy, multiple spine surgeries, s/p L4/5 laminectomy then L5/S1 seroma with recent epidural abscess drainage s/p I and D, complex wound closure and wound vac placement 11/26-s/p IV abx presenting with weakness and decreased appetite since DC 4 days ago associated with generalized feeling unwell. She is not able to describe her complaints but re-iterates that she does not feel well and hasnt been feeling better since DC. She also reports her stomach feels full. Also reports continued back pain and abd pain. She denies fever, chills, nausea, emesis, dysuria, diarrhea, constipation, urinary incontinence, stool incontinence, change in sensation. Hospital course: soft pressures on the floor, then hypotension which initially was somewhat responsive to IVF, transferred to ICU yesterday. Started peripheral vasopressin, placed CVC, now on Levophed and vaso. Hyponatremia last night and now this AM. HD#7 OVERNIGHT EVENTS Remained with soft pressures, hyponatremia last night and this morning, elevated lactic acid, persistent low BP thus CVC placed and on Levophed and vaso now. OBJECTIVE Vital Signs Temp 98 F 01/25/20 06:00 Pulse 90 01/25/20 07:00 Resp 18 01/25/20 06:00 BP 103/56 L 01/25/20 07:00 Pulse Ox 96 01/25/20 00:30 Intake & Output 01/24/20 01/24/20 01/25/20 11:59 23:59 11:59 Intake Total 850 830 556 Output Total 0 50 15 Balance 850 780 541 Weight 85.23 kg 85.23 kg Intake: IV 10 396 Levophed - 8,000 Mcg In 216 D5w - 492 ml @ 0.03 MCG/ KG/MIN 9.588 mls/hr IV ASDIR [facility] Rx#:[id number] Pitressin - 40 Units In 180 Normal Saline - 98 ml @ 2 UNITS/HR 5 mls/hr IVPB ASDIR [facility] Rx#:[id number] RFA 22 01/24/2020 10 IVPB 350 200 100 Oral 500 620 60 Output: Drainage 0 0 15 Right Medial Back 0 0 15 Urine 50 Void 50 Other: Voiding Method Bedside Commode Bedpan Indwelling Catheter # Unmeasured Voids Hines 700 Void 1 Bowel Movement No No Weight Measurement Method Built in Bedscale Built in [facility] LINES: LIJ CVC TUBES: None DRAINS: Hines, DASH drain SUPPLEMENTAL O2: NC EXAM GENERAL: elderly, frail, tired, snoring respirations, nontoxic-appearing, no distress, answers questions appropriately HEENT: PERRLA, EOMI, a bit dry mucous membranes NECK/BACK: no midline ttp, no spinal stepoff or deformity, no hematoma, full ROM, neck supple CARDIOVASCULAR: irregularly irregular but not tachycardic, many PVCs on the monitor, no MGR, strong peripheral pulses, capillary refill 3 seconds, no edema LUNGS/RESPIRATORY: tachypneic, increased WOB, cough noted, coarse breath sounds bilaterally without focal area of decreased breath sounds GI/ABDOMEN: symmetric [id number], normoactive BS, soft, no ttp, no midline pulsatile masses : no CVA tenderness MSK/EXTREMITIES: no muscle atrophy, no acute deformity, BLE a bit cool SKIN: warm and dry, no pallor, no jaundice, no rash, no pathologic-appearing bruising, no skin breakdown, no cuts, no lesions NEUROLOGICAL: GCS 15, CN II-XII grossly intact, 5/5 strength proximally and distally, no facial droop DRIPS: Levophed 5 mcg/min, vasopressin @ 2U/h ANTI-INFECTIVES: Daptomycin, Meropenem 01/24/20 01/25/20 01/25/20 23:59 00:00 05:30 WBC 12.5 H RBC 3.77 Hgb 10.2 L Hct 31.9 L D MCV 84.8 MCH 27.0 MCHC 31.9 L RDW 18.3 H Plt Count 295 D MPV 8.1 Absolute Neuts (auto) 9.0 H Neutrophils % 71.9 Lymphocytes % 12.6 Monocytes % 10.7 H Eosinophils % 4.5 Basophils % 0.3 Nucleated RBC % 0 Platelet Estimate Platelet Comment Sodium Potassium Chloride Carbon Dioxide Anion Gap BUN Creatinine Est GFR (CKD-EPI)AfAm Est GFR (CKD-EPI)NonAf POC Glucometer Random Glucose Serum Osmolality Lactic Acid Calcium Total Bilirubin AST ALT Alkaline Phosphatase Troponin I Total Protein Albumin Urine Color Yellow Urine Appearance Turbid Urine pH 5.0 Ur Specific Ethel 1.018 Urine Protein 1+ H Urine Glucose (UA) Negative Urine Ketones Trace H Urine Blood Negative Urine Nitrite Negative Urine Bilirubin Negative Urine Urobilinogen 0.2 Ur Leukocyte Esterase 2+ H Urine WBC (Auto) 124 Urine RBC (Auto) 13 Urine Casts (Auto) 10 U Pathogenic Cast Auto None seen U Epithel Cells (Auto) >36 Urine Crystals (Auto) None seen Urine Bacteria (Auto) 98 Urine Yeast (Auto) None seen Urine Osmolality Ur Random Sodium 23 L Ur Random Potassium 34.0 Ur Random Chloride 29 L Vancomycin Pre-Dose 01/25/20 01/25/20 05:30 06:10 WBC RBC Hgb Hct MCV MCH MCHC RDW Plt Count MPV Absolute Neuts (auto) Neutrophils % Lymphocytes % Monocytes % Eosinophils % Basophils % Nucleated RBC % Platelet Estimate Platelet Comment Sodium 126 L Potassium 4.2 Chloride 89 L Carbon Dioxide 23 Anion Gap 14 BUN 52.3 H Creatinine 3.2 H Est GFR (CKD-EPI)AfAm 15.86 Est GFR (CKD-EPI)NonAf 13.69 POC Glucometer 279 Random Glucose 264 H Serum Osmolality Lactic Acid Calcium 8.6 Total Bilirubin 0.5 AST 19 ALT 12 L Alkaline Phosphatase 162 H Troponin I Total Protein 5.9 L Albumin 2.2 L Urine Color Urine Appearance Urine pH Ur Specific Ethel Urine Protein Urine Glucose (UA) Urine Ketones Urine Blood Urine Nitrite Urine Bilirubin Urine Urobilinogen Ur Leukocyte Esterase Urine WBC (Auto) Urine RBC (Auto) Urine Casts (Auto) U Pathogenic Cast Auto U Epithel Cells (Auto) Urine Crystals (Auto) Urine Bacteria (Auto) Urine Yeast (Auto) Urine Osmolality Ur Random Sodium Ur Random Potassium Ur Random Chloride Vancomycin Pre-Dose CX DATA: BCx taken 01/23 pending preliminary results. Body fluid Cx with ESBL. CXR from senior research manager 01/25/20: Pulmonary vascular congestion which appears worse than CXR done on 01/23. No focal consolidation. ASSESSMENT / PLAN: 74YOF with h/o CHF (EF 35-40%), RA, DM 2, HTN, Hx DVT/PE, a fib (on Xarelto), known non-ischemic cardiomyopathy, multiple spine surgeries, s/p L4/[address] Borjas then L5/S1 seroma with recent epidural abscess drainage s/p I and D, complex wound closure and wound vac placement 11/26-s/p IV abx who presented to ED 01/19/20 for weakness and malaise x4 days. Found with UTI, but septic since yesterday and c/f possibility of DASH drain infection. NEURO/PSYCH: No concerns at this time. -Continue to monitor ENDOCRINE: h/o type 2 DM -ISS, FSBG TIDAC CV: Chronic AF, h/o CHF with likely exacerbation -Gentle with IVF -Continue home Xarelto -Consider BiPAP and Lasix if respiratory status starts deteriorating RESP: No concerns at this time. -Continue to monitor GI: No concerns at this time. -Continue to monitor RENAL/: ELIZABETH, hyponatremia -Renal consulting, appreciate recs -Gentle isotonic IVF for now HEME: No concerns at this time. -Continue to monitor ID: Sepsis with C/F DASH drain infection versus UTI -ID Consulting, appreciate recs -F/U BCx -Switched vancomycin to daptomycin -Continue meropenem -Trend lactate MSK: Recent spinal surgery, seroma, epidural abscess drainage, DASH drain placement still indwelling -Spine surgery consulting DERM: Full-body itching, likely vancomycin, resolved -Hydrocortisone topical prn -Continue to monitor FEN: Hyponatremia (possible SIADH) - IVF: Gentle NS PPX - DVT: SCD, Xarelto - GI: Diabetic diet CODE STATUS: Full code DISPO PLAN: Continued ICU care Discussed patient with ICU Attending. Latoya Martinez MD ICU Consult Service
[2020-01-25] MEDS ORDERED: DOCUSATE SODIUM 100 MG CAPSULE (FP) PO PRN (08:49)
[2020-01-25] MEDS ORDERED: ACETAMINOPHEN 1000 MG/100 ML VIAL (NON FORMULARY) IVPB PRN (08:49)
[2020-01-25] MEDS ORDERED: HYDROCORTISONE 1% TOPICAL CREAM 30 GM TUBE TP PRN (08:49)
[2020-01-25] MEDS ORDERED: PT OWN MED DRAWER 7, Y5N ONE ×3 (09:42→17:33)
[2020-01-25] MEDS: PRAMIPEXOLE DIHYDROCHLORIDE 0.25 MG TABLET PO SCH ×2 (09:45→21:34)
[2020-01-25] MEDS: LIDOCAINE 5% TOPICAL PATCH TP SCH (09:45)
[2020-01-25] MEDS: CYANOCOBALAMIN 1,000 MCG TABLET (FP) PO SCH (09:46)
[2020-01-25] MEDS ORDERED: DAPTOMYCIN 500 MG in SODIUM CHLORIDE 50 ML IVPB SCH (10:00)
[2020-01-25] MEDS ORDERED: LIDOCAINE 5% TOPICAL PATCH TP SCH (10:00)
[2020-01-25] MEDS ORDERED: LEFLUNOMIDE 10 MG TABLET PO SCH (10:00)
[2020-01-25] MEDS ORDERED: CYANOCOBALAMIN 1,000 MCG TABLET (FP) PO SCH (10:00)
[2020-01-25] MEDS ORDERED: RIVAROXABAN 20 MG TABLET PO SCH ×2 (10:00)
--- NOTE | 2020-01-25 10:24 | EKG ---
Test Reason : Blood Pressure : / mmHG Vent. Rate : 106 BPM Atrial Rate : 366 BPM P-R Int : 000 ms QRS Dur : 088 ms QT Int : 358 ms P-R-T Axes : 000 054 054 degrees QTc Int : 475 ms ATRIAL FLUTTER WITH VARIABLE A-V BLOCK NONSPECIFIC T WAVE ABNORMALITY ABNORMAL ECG WHEN COMPARED WITH ECG OF 19-JAN-2020 16:59, ATRIAL FLUTTER HAS REPLACED JUNCTIONAL RHYTHM NONSPECIFIC T WAVE ABNORMALITY NOW EVIDENT IN LATERAL LEADS Confirmed by ORIANA PELAEZ MD ([id number]) on 01/25/2020 10:23:59 AM Referred By: Confirmed By:ORIANA PELAEZ MD
[2020-01-25] MEDS ORDERED: SODIUM CHLORIDE 1,000 ML IV SCH (12:30)
[2020-01-25] MEDS ORDERED: LIDOCAINE PATCH REMOVAL MC ONE ×2 (13:30)
--- NOTE | 2020-01-25 13:58 | PN ---
Progress Note, Physician History of Present Illness: events noted patient became hypotensive was txed to icu slightly better now getting u/s of the kidneys mentally better - Current Medication List Current Medications: Active Medications Chlorhexidine Gluconate (Hibiclens For Decolonization -) 1 applic TP HS [facility] Cyanocobalamin (Vitamin B12 -) 1,000 mcg PO DAILY [facility] Last Admin: 01/25/20 09:46 Dose: 1,000 mcg Documented by: Diazepam (Valium -) 10 mg PO DAILY [facility] Last Admin: 01/25/20 09:43 Dose: 10 mg Documented by: Docusate Sodium (Colace -) 100 mg PO Q8H PRN PRN Reason: CONSTIPATION Hydrocortisone (Hytone 1% Cream -) 1 applic TP DAILY PRN PRN Reason: FOR ITCHING Norepinephrine Bitartrate 8, (000 mcg/ Dextrose) 500 mls @ 9.588 mls/hr IV ASDIR [facility]; Protocol Last Titration: 01/25/20 04:44 Dose: 5 mcg/kg/min, 1,598.063 mls/hr Documented by: Meropenem 1 gm/ Dextrose 100 mls @ 200 mls/hr IVPB Q12H [facility] Vasopressin 40 units/ Sodium (Chloride) 100 mls @ 5 mls/hr IVPB ASDIR [facility]; Protocol Last Titration: 01/25/20 12:17 Dose: 0 units/hr, 0 mls/hr Documented by: Daptomycin 500 mg/ Sodium (Chloride) 50 mls @ 100 mls/hr IVPB Q48H [facility]; Protocol Sodium Chloride (Normal Saline -) 1,000 mls @ 75 mls/hr IV ASDIR [facility] Last Admin: 01/25/20 12:30 Dose: 75 mls/hr Documented by: Lidocaine (Lidoderm Patch -) 1 patch TP DAILY [facility] Last Admin: 01/25/20 09:45 Dose: 1 patch Documented by: Miscellaneous (Lidoderm Patch Removal) 1 each MC DAILY@2200 [facility] Mupirocin (Bactroban Ointment (For Decolonization) -) 1 applic NS BID [facility] Stop: 01/30/20 01:59 Last Admin: 01/25/20 10:35 Dose: 1 applic Documented by: Oxycodone HCl (Roxicodone -) 10 mg PO Q6H PRN PRN Reason: PAIN LEVEL 6-10 Last Admin: 01/25/20 12:37 Dose: 10 mg Documented by: Pramipexole Dihydrochloride (Mirapex -) 0.25 mg PO BID [facility] Last Admin: 01/25/20 09:45 Dose: 0.25 mg Documented by: Rivaroxaban (Xarelto) 15 mg PO DAILY@1800 [facility] - Objective Vital Signs: Vital Signs Temperature 97.9 F 01/25/20 12:00 Pulse Rate 85 01/25/20 12:17 Respiratory Rate 18 01/25/20 12:00 Blood Pressure 122/90 01/25/20 12:17 O2 Sat by Pulse Oximetry (%) 97 01/25/20 08:00 Constitutional: Yes: No Distress, Calm Cardiovascular: Yes: S1, S2 Gastrointestinal: Yes: Normal Bowel Sounds, Soft Musculoskeletal: Yes: Other Wound/Incision: Yes: Dressing Dry and Intact Psychiatric: Yes: Other Labs: CBC, BMP 01/25/20 05:30 01/25/20 05:30 INR, PTT INR 1.57 (0.83-1.09) H 01/20/20 06:45 Assessment/Plan roblem List - Problems (1) UTI (urinary tract infection) Code(s): N39.0 - URINARY TRACT INFECTION, SITE NOT SPECIFIED (2) Epidural abscess Code(s): G06.2 - EXTRADURAL AND SUBDURAL ABSCESS, UNSPECIFIED (3) Chronic systolic heart failure Code(s): I50.22 - CHRONIC SYSTOLIC (CONGESTIVE) HEART FAILURE (4) Diabetes Code(s): E11.9 - TYPE 2 DIABETES MELLITUS WITHOUT COMPLICATIONS Qualifiers: Diabetes mellitus type: type 2 (5) History of DVT (deep vein thrombosis) Code(s): Z86.718 - PERSONAL HISTORY OF OTHER VENOUS THROMBOSIS AND EMBOLISM (6) Hypertension Code(s): I10 - ESSENTIAL (PRIMARY) HYPERTENSION (7) Non-ischemic cardiomyopathy Code(s): I42.9 - CARDIOMYOPATHY, UNSPECIFIED (8) Obstructive sleep apnea Code(s): G47.33 - OBSTRUCTIVE SLEEP APNEA (ADULT) (PEDIATRIC) Assessment/Plan Bacteremia UTI Epidural abscess - s/p drainage/DASH in place DM CHF Hx of DVT AFIB continue meropenam dspto surgery to see the patient renal on board monitor renal function cc 40 min
[2020-01-25] MEDS: SODIUM CHLORIDE 1,000 ML IV SCH (14:00)
[2020-01-25] MEDS: MEROPENEM 1 GM in DEXTROSE 5%-WATER 100 ML IVPB SCH (14:05)
--- NOTE | 2020-01-25 14:29 | PN ---
Teaching Attending Note Name of Resident: Latoya Michelle ATTENDING PHYSICIAN STATEMENT I saw and evaluated the patient. I reviewed the resident's note and discussed the case with the resident. I agree with the resident's findings and plan as documented. SUBJECTIVE: Patient seen and examined in the ICU. Awake and alert. Denies CP or SOB. Generalized fatigue. NE @ 6 mcq and Vasopressin @ 2 units for hemodynamic support. Intake & Output 01/22/20 01/23/20 01/24/20 01/25/20 23:59 23:59 23:59 23:59 Intake Total 690 1130 1680 556 Output Total 5 7 50 15 Balance 685 1123 1630 541 Weight 188 lb 4 oz 189 lb 4 oz 187 lb 14.4 oz 187 lb 14.4 oz Last Vital Signs Temp Pulse Resp BP Pulse Ox 98.0 F 106 H 16 104/48 L 97 01/25/20 14:00 01/25/20 14:00 01/25/20 14:00 01/25/20 14:00 01/25/20 08:00 Active Medications Chlorhexidine Gluconate (Hibiclens For Decolonization -) 1 applic TP HS [facility] Cyanocobalamin (Vitamin B12 -) 1,000 mcg PO DAILY [facility] Last Admin: 01/25/20 09:46 Dose: 1,000 mcg Documented by: Diazepam (Valium -) 10 mg PO DAILY [facility] Last Admin: 01/25/20 09:43 Dose: 10 mg Documented by: Docusate Sodium (Colace -) 100 mg PO Q8H PRN PRN Reason: CONSTIPATION Hydrocortisone (Hytone 1% Cream -) 1 applic TP DAILY PRN PRN Reason: FOR ITCHING Norepinephrine Bitartrate 8, (000 mcg/ Dextrose) 500 mls @ 9.588 mls/hr IV [facility]IR [facility]; Protocol Last Titration: 01/25/20 04:44 Dose: 5 mcg/kg/min, 1,598.063 mls/hr Documented by: Meropenem 1 gm/ Dextrose 100 mls @ 200 mls/hr IVPB Q12H [facility] Last Admin: 01/25/20 14:05 Dose: 200 mls/hr Documented by: Vasopressin 40 units/ Sodium (Chloride) 100 mls @ 5 mls/hr IVPB [facility]IR [facility]; Protocol Last Titration: 01/25/20 12:17 Dose: 0 units/hr, 0 mls/hr Documented by: Daptomycin 500 mg/ Sodium (Chloride) 50 mls @ 100 mls/hr IVPB Q48H [facility]; Protocol Sodium Chloride (Normal Saline -) 1,000 mls @ 50 mls/hr IV ASDIR [facility] Stop: 01/31/20 14:01 Lidocaine (Lidoderm Patch -) 1 patch TP DAILY [facility] Last Admin: 01/25/20 09:45 Dose: 1 patch Documented by: Miscellaneous (Lidoderm Patch Removal) 1 each MC DAILY@2200 [facility] Mupirocin (Bactroban Ointment (For Decolonization) -) 1 applic NS BID [facility] Stop: 01/30/20 01:59 Last Admin: 01/25/20 10:35 Dose: 1 applic Documented by: Oxycodone HCl (Roxicodone -) 10 mg PO Q6H PRN PRN Reason: PAIN LEVEL 6-10 Last Admin: 01/25/20 12:37 Dose: 10 mg Documented by: Pramipexole Dihydrochloride (Mirapex -) 0.25 mg PO BID [facility] Last Admin: 01/25/20 09:45 Dose: 0.25 mg Documented by: Rivaroxaban (Xarelto) 15 mg PO DAILY@1800 [facility] GENERAL: elderly, frail appearing, NAD HEENT: dry mucous membranes NECK/BACK: full ROM, neck supple CARDIOVASCULAR: irregularly irregular LUNGS/RESPIRATORY: diminished at the bases GI/ABDOMEN: soft, normoactive BS, soft, no ttp : no CVA tenderness MSK/EXTREMITIES: no acute deformity SKIN: warm and dry, no pallor, no jaundice, no rash NEUROLOGICAL: Non-focal 01/24/20 01/25/20 01/25/20 23:59 00:00 05:30 WBC 12.5 H RBC 3.77 Hgb 10.2 L Hct 31.9 L D MCV 84.8 MCH 27.0 MCHC 31.9 L RDW 18.3 H Plt Count 295 D MPV 8.1 Absolute Neuts (auto) 9.0 H Neutrophils % 71.9 Lymphocytes % 12.6 Monocytes % 10.7 H Eosinophils % 4.5 Basophils % 0.3 Nucleated RBC % 0 Platelet Estimate Platelet Comment Sodium Potassium Chloride Carbon Dioxide Anion Gap BUN Creatinine Est GFR (CKD-EPI)AfAm Est GFR (CKD-EPI)NonAf POC Glucometer Random Glucose Serum Osmolality Lactic Acid Calcium Total Bilirubin AST ALT Alkaline Phosphatase Troponin I Total Protein Albumin Urine Color Yellow Urine Appearance Turbid Urine pH 5.0 Ur Specific Rainbow 1.018 Urine Protein 1+ H Urine Glucose (UA) Negative Urine Ketones Trace H Urine Blood Negative Urine Nitrite Negative Urine Bilirubin Negative Urine Urobilinogen 0.2 Ur Leukocyte Esterase 2+ H Urine WBC (Auto) 124 Urine RBC (Auto) 13 Urine Casts (Auto) 10 U Pathogenic Cast Auto None seen U Epithel Cells (Auto) >36 Urine Crystals (Auto) None seen Urine Bacteria (Auto) 98 Urine Yeast (Auto) None seen Urine Osmolality Ur Random Sodium 23 L Ur Random Potassium 34.0 Ur Random Chloride 29 L Vancomycin Pre-Dose 01/25/20 01/25/20 05:30 06:10 WBC RBC Hgb Hct MCV MCH MCHC RDW Plt Count MPV Absolute Neuts (auto) Neutrophils % Lymphocytes % Monocytes % Eosinophils % Basophils % Nucleated RBC % Platelet Estimate Platelet Comment Sodium 126 L Potassium 4.2 Chloride 89 L Carbon Dioxide 23 Anion Gap 14 BUN 52.3 H Creatinine 3.2 H Est GFR (CKD-EPI)AfAm 15.86 Est GFR (CKD-EPI)NonAf 13.69 POC Glucometer 279 Random Glucose 264 H Serum Osmolality Lactic Acid Calcium 8.6 Total Bilirubin 0.5 AST 19 ALT 12 L Alkaline Phosphatase 162 H Troponin I Total Protein 5.9 L Albumin 2.2 L Urine Color Urine Appearance Urine pH Ur Specific Rainbow Urine Protein Urine Glucose (UA) Urine Ketones Urine Blood Urine Nitrite Urine Bilirubin Urine Urobilinogen Ur Leukocyte Esterase Urine WBC (Auto) Urine RBC (Auto) Urine Casts (Auto) U Pathogenic Cast Auto U Epithel Cells (Auto) Urine Crystals (Auto) Urine Bacteria (Auto) Urine Yeast (Auto) Urine Osmolality Ur Random Sodium Ur Random Potassium Ur Random Chloride Vancomycin Pre-Dose ASSESSMENT / PLAN: Septic Shock due to soft tissue infection. CHF (EF 35-40%) RA DM 2 HTN Hx DVT/PE AFib on Xarelto Non-ischemic cardiomyopathy History of multiple spine surgeries S/P L4/5 laminectomy L5/S1 seroma with recent epidural abscess drainage s/p I & D S/P complex wound closure and wound vac placement 11/26 Hyponatremia Pressors to maintain MAP > 65 IVF resuscitation base on CVP guidance Strict I & O PO as tolerated ABX per ID AC with Xarelto Glycemic control Orthopedic follow up Requires ICU monitoring for pressors Dr Hernandez Critical care time spent in reviewing chart, evaluating patient and formulating plan - 36 minutes.
--- NOTE | 2020-01-25 16:40 | CONSULT ---
Consult Consult Specialty:: Nephrology Reason for Consultation:: ELIZABETH - History of Present Illness Chief Complaint: initially presented with decreased appetite and abd pain History of Present Illness: Pt is a 74 year old female with pmhx of chf, RA, DM, HTN, DVT, a-fib, and multiple spine surgeries who presents to the ER with abd pain. She recently had a seroma and epidural abscess which required a drain. She developed sepsis. I was called to evaluate her for ELIZABETH. She was als hypotensive and is now on pressors. She denies shortness of breath. She has poor appetite. She is admitted to the ICU. SHe is making urine. 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 Cardio/Vascular: Yes: CHF, Deep Vein Thrombosis, HTN Pulmonary: Yes: Pulmonary Embolus ...: No Rheumatology: Yes: Rheumatoid Arthritis Endocrine: Yes: Diabetes Mellitus - Past Surgical History Past Surgical History: Yes: Bariatric Surgery (gastric band), Cholecystectomy, Hysterectomy, Joint Replacement (5 right hip replacements, 1 left hip replacement, bilateral TKR, left LTK with staph infection ), Laminectomy (back surgeries-reports 5, most rcent 06/19) - Alcohol/Substance Use Hx Alcohol Use: No - Smoking History Smoking history: Never smoked Have you smoked in the past 12 months: No Aproximately how many cigarettes per day: 0 If you are a former smoker, when did you quit?: 1966 - Social History Usual Living Arrangement: With Child ADL: Independent 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 [employer] History of Recent Travel: No Home Medications - Allergies Allergies/Adverse Reactions: Allergies Allergy/AdvReac Type Severity Reaction Status Date / Time levofloxacin [From Levaquin] Allergy Severe ANAPHYLAXIS Verified 12/26/19 13:30 methotrexate Allergy Severe Swelling Verified 12/26/19 13:30 Penicillins Allergy Mild Rash Verified 12/26/19 13:30 doxycycline Allergy Unknown Verified 12/26/19 13:30 bumetanide [From Bumex] Allergy Rash Verified 12/26/19 13:30 morphine AdvReac Mild Itching Verified 12/28/19 11:59 piperacillin sodium AdvReac Mild Itching Verified 12/26/19 13:30 [From Zosyn] tazobactam sodium AdvReac Mild Itching Verified 12/26/19 13:30 [From Zosyn] - Home Medications Home Medications: Ambulatory Orders Insulin Lispro Protamin/Lispro [Humalog Mix 75-25 Kwikpen] 22 unit SQ BIDAC 12/15/15 Zolpidem Tartrate [Ambien] 10 mg PO HS PRN 06/01/17 Leflunomide [Arava] 20 mg PO DAILY 07/26/18 Torsemide 50 mg PO DAILY 07/26/18 Baclofen 10 mg PO PRN PRN 07/16/19 Rivaroxaban [Xarelto -] 20 mg PO DAILY #30 tablet 10/03/19 Carvedilol [Coreg -] 12.5 mg PO BID 11/23/19 Gabapentin [Neurontin -] 600 mg PO TID 11/23/19 Diazepam 10 mg PO DAILY 12/28/19 Oxycodone HCl/Acetaminophen [Percocet 10-325 mg Tablet] 1 each PO QID 12/28/19 Pramipexole Di-HCl [Mirapex] 0.25 mg PO BID 12/28/19 Cyanocobalamin [Vitamin B12 -] 1,000 mcg PO DAILY #30 tablet 01/10/20 Ferrous Sulfate [Feosol] 325 mg PO BIDWM #60 ud 01/10/20 Sacubitril/Valsartan [Entresto 24 mg-26 mg Tablet] 1 each PO BID #60 tablet 01/10/20 Family Medical History Family History: Denies Review of Systems - Review of Systems Constitutional: reports: Malaise Eyes: reports: No Symptoms HENT: reports: No Symptoms Neck: reports: No Symptoms Cardiovascular: reports: No Symptoms Respiratory: reports: No Symptoms Gastrointestinal: reports: No Symptoms Genitourinary: reports: No Symptoms Musculoskeletal: reports: Back Pain Integumentary: reports: No Symptoms Neurological: reports: No Symptoms Endocrine: reports: No Symptoms Hematology/Lymphatic: reports: No Symptoms Physical Exam Vital Signs: Vital Signs Temperature 98.0 F 01/25/20 14:00 Pulse Rate 107 H 01/25/20 16:00 Respiratory Rate 25 H 01/25/20 16:00 Blood Pressure 132/52 L 01/25/20 16:00 O2 Sat by Pulse Oximetry (%) 97 01/25/20 08:00 Constitutional: Yes: Calm Eyes: Yes: Conjunctiva Clear HENT: Yes: Atraumatic Neck: Yes: Supple Cardiovascular: Yes: S1, S2 Respiratory: Yes: CTA Bilaterally Gastrointestinal: Yes: Soft, Abdomen, Obese Renal/: Yes: Hines Present Musculoskeletal: Yes: Muscle Weakness Neurological: Yes: Oriented Psychiatric: Yes: Oriented Labs: CBC, BMP 01/25/20 05:30 01/25/20 05:30 Imaging - Results Chest X-ray: Report Reviewed Problem List - Problems (1) ELIZABETH (acute kidney injury) Code(s): N17.9 - ACUTE KIDNEY FAILURE, UNSPECIFIED Assessment/Plan Current Medications Generic Name Dose Route Start Last Admin Trade Name Freq PRN Reason Stop Dose Admin Baclofen 10 mg 01/25/20 16:39 Lioresal - PO TID PRN PAIN Chlorhexidine Gluconate 1 applic 01/25/20 22:00 Hibiclens For Decolonization - TP HS LISA Cyanocobalamin 1,000 mcg 01/25/20 10:00 01/25/20 09:46 Vitamin B12 - PO 1,000 mcg DAILY LISA Administration Diazepam 10 mg 01/25/20 04:45 01/25/20 09:43 Valium - PO 10 mg DAILY LISA Administration Docusate Sodium 100 mg 01/25/20 08:49 Colace - PO Q8H PRN CONSTIPATION Hydrocortisone 1 applic 01/25/20 08:49 Hytone 1% Cream - TP DAILY PRN FOR ITCHING Norepinephrine Bitartrate 8, 500 mls @ 9.588 mls/hr 01/25/20 02:30 01/25/20 04:44 000 mcg/ Dextrose IV 5 mcg/kg/min ASDIR LISA 1,598.063 mls/hr Titration Protocol 0.03 MCG/KG/MIN Meropenem 1 gm/ Dextrose 100 mls @ 200 mls/hr 01/25/20 15:00 01/25/20 14:05 IVPB 200 mls/hr Q12H LISA Administration Vasopressin 40 units/ Sodium 100 mls @ 5 mls/hr 01/25/20 08:49 01/25/20 12:17 Chloride IVPB 0 units/hr ASDIR LISA 0 mls/hr Titration Protocol 2 UNITS/HR Daptomycin 500 mg/ Sodium 50 mls @ 100 mls/hr 01/26/20 15:30 Chloride IVPB Q48H LISA Protocol Sodium Chloride 1,000 mls @ 50 mls/hr 01/25/20 14:00 01/25/20 14:00 Normal Saline - IV 01/31/20 14:01 50 mls/hr ASDIR [facility] Administration Insulin Aspart 1 vial 01/25/20 22:00 Novolog Vial Sliding Scale - SQ ACHS [facility] Protocol Lidocaine 1 patch 01/25/20 10:00 01/25/20 09:45 Lidoderm Patch - TP 1 patch DAILY [facility] Administration Miscellaneous 1 each 01/25/20 22:00 Lidoderm Patch Removal MC DAILY@2200 [facility] Mupirocin 1 applic 01/25/20 02:00 01/25/20 10:35 Bactroban Ointment (For Decolonization) - NS 01/30/20 01:59 1 applic BID [facility] Administration Oxycodone HCl 10 mg 01/25/20 04:44 01/25/20 12:37 Roxicodone - PO 10 mg Q6H PRN Administration PAIN LEVEL 6-10 Pramipexole Dihydrochloride 0.25 mg 01/25/20 10:00 01/25/20 09:45 Mirapex - PO 0.25 mg BID [facility] Administration Rivaroxaban 15 mg 01/25/20 18:00 Xarelto PO DAILY@1800 [facility] Laboratory Tests 06/17/18 01/23/20 01/24/20 11:15 09:55 20:08 Sodium 126 L Creatinine 0.9 3.3 H Urine Protein Negative Urine Blood Negative 01/25/20 05:30 Sodium 126 L Creatinine 3.2 H Urine Protein Urine Blood Impressin 1. ELIZABETH 2. sepsis 3. shock 4. CHF 5. hx of htn 6. epidural abscess 7. ut 8. a-fib 9. 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
[2020-01-25] MEDS: RIVAROXABAN 15 MG TABLET PO SCH (17:38)
[2020-01-25] MEDS: BACLOFEN 10 MG TABLET (FP) PO PRN (18:36)
[2020-01-25] MEDS: CHLORHEXIDINE GLUCONATE 4% CLEANSER FOR DECOLONIZATION TP SCH (21:29)
[2020-01-25] MEDS: LIDOCAINE PATCH REMOVAL MC SCH (21:30)
[2020-01-25] MEDS: INSULIN SLIDING SCALE (NOVOLOG) 1 VIAL SQ SCH (21:37)
[2020-01-25] MEDS ORDERED: LIDOCAINE PATCH REMOVAL MC SCH (22:00)
[2020-01-25] MEDS ORDERED: diphenhydrAMINE HCL 25 MG CAPSULE (FP) PO ONE (23:01)
[2020-01-26] MEDS ORDERED: MEROPENEM 1 GM VIAL (RESTRICTED TO ID) IVPB ONE ×2 (01:11→14:19)
[2020-01-26] MEDS ORDERED: DEXTROSE 5%-WATER 100 ML IVPB ONE ×2 (01:11→14:20)
[2020-01-26] MEDS: MEROPENEM 1 GM in DEXTROSE 5%-WATER 100 ML IVPB SCH ×2 (02:27→14:22)
[2020-01-26] MEDS: INSULIN SLIDING SCALE (NOVOLOG) 1 VIAL SQ SCH ×4 (06:19→22:27)
--- NOTE | 2020-01-26 08:23 | PN ---
Progress Note (short form) - Note Progress Note: HD#8 OVERNIGHT EVENTS Nothing overnight. ID and Renal came to see the patient yesterday. Patient's spine surgery team called and message sent to them. Switched daptomycin to q48h given ELIZABETH yesterday. Patient states back does not hurt too much but today her hips both hurt. Family expressed concern she was more confused than normal on the phone this morning, likely polypharmacy with the valium and oxycodone. OBJECTIVE Vital Signs Temp 98.6 F 01/26/20 10:00 Pulse 108 H 01/26/20 12:00 Resp 18 01/26/20 12:00 BP 101/80 01/26/20 12:00 Pulse Ox 97 01/26/20 10:00 Intake & Output 01/25/20 01/26/20 01/26/20 23:59 11:59 23:59 Intake Total 1020.6 1016 Output Total 602 510 Balance 418.6 506 Intake: IV 570.6 816 Levophed - 8,000 Mcg In 225.6 216 D5w - 492 ml @ 0.03 MCG/ KG/MIN 9.588 mls/hr IV ASDIR LISA Rx#:[id number] Normal Saline - 1,000 ml 250 600 @ 50 mls/hr IV ASDIR LISA Rx#:[id number] Normal Saline - 1,000 ml 75 @ 75 mls/hr IV ASDIR LISA Rx#:[id number] Pitressin - 40 Units In 20 Normal Saline - 98 ml @ 2 UNITS/HR 5 mls/hr IVPB ASDIR LISA Rx#:[id number] IVPB 100 100 Oral 350 100 Output: Drainage 2 Right Medial Back 2 Urine 600 510 Hines 600 500 Void 10 Other: Voiding Method Indwelling Catheter Indwelling Catheter Bowel Movement No No Body Mass Index (BMI) 34.2 LINES: LIJ CVC TUBES: None DRAINS: Hines, DASH drain SUPPLEMENTAL O2: NC EXAM GENERAL: elderly, alert, nontoxic-appearing, no distress, answers questions appropriately HEENT: PERRLA, EOMI, a bit dry mucous membranes NECK/BACK: no midline ttp, no spinal stepoff or deformity, no hematoma, full ROM, neck supple CARDIOVASCULAR: irregularly irregular but not tachycardic, many PVCs on the monitor, no MGR, strong peripheral pulses, capillary refill 3 seconds, no edema LUNGS/RESPIRATORY: tachypneic, increased WOB, cough noted, coarse breath sounds bilaterally without focal area of decreased breath sounds GI/ABDOMEN: symmetric [id number], normoactive BS, soft, no ttp, no midline pulsatile masses : no CVA tenderness MSK/EXTREMITIES: no muscle atrophy, no acute deformity, BLE a bit cool SKIN: warm and dry, no pallor, no jaundice, no rash, no pathologic-appearing bruising, no skin breakdown, no cuts, no lesions NEUROLOGICAL: GCS 15, CN II-XII grossly intact, 5/5 strength proximally and distally, no facial droop DRIPS: Levophed 5 mcg/min, vasopressin @ 2U/h ANTI-INFECTIVES: Daptomycin, Meropenem Laboratory Last Values WBC 8.1 K/mm3 (4.0-10.0) 01/26/20 09:45 Corrected WBC (auto) Cancelled 01/22/20 06:25 RBC 3.87 M/mm3 (3.60-5.2) 01/26/20 09:45 Hgb 10.4 GM/dL (10.7-15.3) L 01/26/20 09:45 Hct 32.5 % (32.4-45.2) 01/26/20 09:45 MCV 84.1 fl (80-96) 01/26/20 09:45 MCH 27.0 pg (25.7-33.7) 01/26/20 09:45 MCHC 32.1 g/dl (32.0-36.0) 01/26/20 09:45 RDW 18.0 % (11.6-15.6) H 01/26/20 09:45 Plt Count 290 K/MM3 (134-434) 01/26/20 09:45 MPV 7.8 fl (7.5-11.1) 01/26/20 09:45 Absolute Neuts (auto) 6.0 K/mm3 (1.5-8.0) 01/26/20 09:45 Neutrophils % 74.2 % (42.8-82.8) 01/26/20 09:45 Neutrophils % (Manual) 66.3 % (42.8-82.8) 01/23/20 07:00 Band Neutrophils % 3.2 % 01/23/20 07:00 Lymphocytes % 9.7 % (8-40) D 01/26/20 09:45 Lymphocytes % (Manual) 15.8 % (8-40) 01/23/20 07:00 Monocytes % 11.8 % (3.8-10.2) H 01/26/20 09:45 Monocytes % (Manual) 11 % (3.8-10.2) H 01/23/20 07:00 Eosinophils % 4.0 % (0-4.5) 01/26/20 09:45 Eosinophils % (Manual) 4.2 % (0-4.5) 01/23/20 07:00 Basophils % 0.3 % (0-2.0) 01/26/20 09:45 Basophils % (Manual) 0.0 % (0-2.0) 01/23/20 07:00 Myelocytes % (Man) 0 % (0-2) 01/23/20 07:00 Promyelocytes % (Man) 0 % (0-2) 01/23/20 07:00 Blast Cells % (Manual) 0 % (0-0) 01/23/20 07:00 Nucleated RBC % 0 % (0-0) 01/26/20 09:45 Metamyelocytes 0 % (0-2) 01/23/20 07:00 Manual Slide Review Cancelled 01/22/20 06:25 Hypochromia 0 01/23/20 07:00 Platelet Estimate Adequate 01/24/20 20:08 Platelet Comment No clumping noted 01/24/20 20:08 Polychromasia 1+ 01/23/20 07:00 Poikilocytosis 0 01/23/20 07:00 Anisocytosis 1+ 01/23/20 07:00 Microcytosis 1+ 01/23/20 07:00 Macrocytosis 0 01/23/20 07:00 ESR 88 mm/hr (0-30) H 01/21/20 07:04 PT with INR 18.60 SEC (9.7-13.0) H 01/20/20 06:45 INR 1.57 (0.83-1.09) H 01/20/20 06:45 PTT (Actin FS) 38.5 SECONDS (25.2-36.5) H 01/19/20 12:30 VBG pH 7.32 (7.31-7.41) 01/19/20 12:30 POC VBG pCO2 49.5 mmHg (38-52) 01/19/20 12:30 POC VBG pO2 < 49 mmHg (28-48) H 01/19/20 12:30 VBG HCO3 24.6 mmol/L (23-29) 01/19/20 12:30 VBG O2 Sat (Michael) 60.8 % (70-80) L 01/19/20 12:30 VBG Base Excess -1.9 mmol/L (-2-2) 01/19/20 12:30 Sodium 130 mmol/L (136-145) L 01/26/20 09:45 Potassium 4.4 mmol/L (3.5-5.1) 01/26/20 09:45 Chloride 95 mmol/L (98-107) L 01/26/20 09:45 Carbon Dioxide 26 mmol/L (21-32) 01/26/20 09:45 Anion Gap 9 MMOL/L (8-16) 01/26/20 09:45 BUN 39.6 mg/dL (7-18) H 01/26/20 09:45 Creatinine 1.3 mg/dL (0.55-1.3) 01/26/20 09:45 Est GFR (CKD-EPI)AfAm 47.13 01/26/20 09:45 Est GFR (CKD-EPI)NonAf 40.67 01/26/20 09:45 POC Glucometer 238 UNITS (80-120) 01/26/20 10:47 Random Glucose 233 mg/dL (74-106) H 01/26/20 09:45 Serum Osmolality 281 mosm/kg (278-305) 01/24/20 23:00 Lactic Acid 2.4 mmol/L (0.4-2.0) H* 01/24/20 05:30 Calcium 8.1 mg/dL (8.5-10.1) L 01/26/20 09:45 Phosphorus 3.6 mg/dL (2.5-4.9) 01/26/20 09:45 Magnesium 2.4 mg/dL (1.8-2.4) 01/26/20 09:45 Total Bilirubin 0.3 mg/dL (0.2-1) 01/26/20 09:45 AST 22 U/L (15-37) 01/26/20 09:45 ALT 12 U/L (13-61) L 01/26/20 09:45 Alkaline Phosphatase 156 U/L (45-117) H 01/26/20 09:45 Troponin I < 0.02 ng/ml (0.00-0.05) 01/24/20 20:08 C-Reactive Protein 14.0 MG/DL (0.00-0.3) H 01/21/20 07:02 Total Protein 5.7 g/dl (6.4-8.2) L 01/26/20 09:45 Albumin 2.0 g/dl (3.4-5.0) L 01/26/20 09:45 Urine Color Yellow 01/24/20 23:59 Urine Appearance Turbid 01/24/20 23:59 Urine pH 5.0 (5.0-8.0) 01/24/20 23:59 Ur Specific [place] 1.018 (1.010-1.035) 01/24/20 23:59 Urine Protein 1+ (NEGATIVE) H 01/24/20 23:59 Urine Glucose (UA) Negative (NEGATIVE) 01/24/20 23:59 Urine Ketones Trace (NEGATIVE) H 01/24/20 23:59 Urine Blood Negative (NEGATIVE) 01/24/20 23:59 Urine Nitrite Negative (NEGATIVE) 01/24/20 23:59 Urine Bilirubin Negative (NEGATIVE) 01/24/20 23:59 Urine Urobilinogen 0.2 mg/dL (0.2-1.0) 01/24/20 23:59 Ur Leukocyte Esterase 2+ (NEGATIVE) H 01/24/20 23:59 Urine WBC (Auto) 124 /uL (0-25.8) 01/24/20 23:59 Urine RBC (Auto) 13 /uL (0-23.9) 01/24/20 23:59 Urine Casts (Auto) 10 /uL (0-3.1) 01/24/20 23:59 U Pathogenic Cast Auto None seen /lpf (NEGATIVE) 01/24/20 23:59 U Epithel Cells (Auto) >36 /uL (0-25.1) 01/24/20 23:59 Urine Crystals (Auto) None seen /hpf 01/24/20 23:59 Urine Bacteria (Auto) 98 /uL (0-1359) 01/24/20 23:59 Urine Yeast (Auto) None seen (NEGATIVE) 01/24/20 23:59 Urine Osmolality 268 mosm/kg (300-900) L 01/24/20 23:59 Ur Random Sodium 23 MMOL/L (40-220) L 01/25/20 00:00 Ur Random Potassium 34.0 MMOL/L (25-125) 01/25/20 00:00 Ur Random Chloride 29 MMOL/L (110-250) L 01/25/20 00:00 Vancomycin Pre-Dose 37.4 ug/ml (5-10) H* 01/24/20 20:08 COVID-19 (MATA) Not detected (Not Detected) 01/19/20 23:40 Blood Type O POSITIVE 01/19/20 17:30 Antibody Screen Negative 01/19/20 17:30 CX DATA: BCx taken 01/23 pending preliminary results. Body fluid Cx with ESBL. CXR from [facility]hanger pipe 01/25/20: Pulmonary vascular congestion which appears worse than CXR done on 01/23. No focal consolidation. ASSESSMENT / PLAN: 74YOF with h/o CHF (EF 35-40%), RA, DM 2, HTN, Hx DVT/PE, a fib (on Xarelto), known non-ischemic cardiomyopathy, multiple spine surgeries, s/p L4/[address] Borjas then L5/S1 seroma with recent epidural abscess drainage s/p I and D, complex wound closure and wound vac placement 11/26-s/p IV abx who presented to ED 01/19/20 for weakness and malaise x4 days. Found with UTI, but septic since yesterday and c/f possibility of DASH drain infection. NEURO/PSYCH: Increased confusion, likely polypharmacy with valium + oxycodone. -Discontinue valium -Start Baclofen instead for muscle spasm/pain ENDOCRINE: h/o type 2 DM -ISS, FSBG TIDAC CV: Chronic AF, h/o CHF with likely exacerbation -Gentle with IVF -Continue home Xarelto -Consider BiPAP and Lasix if respiratory status starts deteriorating RESP: No concerns at this time. -Continue to monitor GI: No concerns at this time. -Continue to monitor RENAL/: ELIZABETH likely ATN from hypotension (improved), hyponatremia (improving) -Renal USS nothing acute -Renal consulting, appreciate recs -Continue gentle NS at 50 cc/h -Avoid NSAIDs HEME: No concerns at this time. -Continue to monitor ID: Sepsis with C/F DASH drain infection, abscess, etc -ID Consulting, appreciate recs -F/U BCx -Switched vancomycin to daptomycin, renal dosing (although may change back to non-renal dosing if BUN/Cr continue to improve tomorrow) -Continue meropenem -Trend lactate -Patient's spine surgery team office called yesterday, message sent by construction secretary -Contact patient's spine surgery team today MSK: Recent spinal surgery, seroma, epidural abscess drainage, DASH drain placement still indwelling -Spine surgery consulting DERM: Full-body itching, likely vancomycin, resolved -Hydrocortisone topical prn -Continue to monitor FEN: Hyponatremia (possible SIADH) - IVF: NS at 50cc/h, monitor CVP PPX - DVT: Xarelto - GI: Diabetic diet CODE STATUS: Full code DISPO PLAN: Continued ICU care Discussed patient with ICU Attending. Latoya Martinez MD ICU Consult Service
[2020-01-26] MEDS ORDERED: PT OWN MED DRAWER 7, Y5N ONE ×5 (09:22→20:38)
[2020-01-26] MEDS: LIDOCAINE 5% TOPICAL PATCH TP SCH (09:55)
[2020-01-26] MEDS: BACLOFEN 10 MG TABLET (FP) PO PRN (09:56)
[2020-01-26] MEDS: PRAMIPEXOLE DIHYDROCHLORIDE 0.25 MG TABLET PO SCH ×2 (09:56→22:27)
[2020-01-26] MEDS: CYANOCOBALAMIN 1,000 MCG TABLET (FP) PO SCH (09:56)
[2020-01-26] MEDS: MUPIROCIN 2% TOPICAL OINTMENT FOR DECOLONIZATION NS SCH ×2 (09:57→21:02)
[2020-01-26] MEDS: diazePAM 5 MG TABLET PO SCH (10:10)
[2020-01-26 10:30] LABS: BASO % 0.3 % (0-2.0); HEMATOCRIT 32.5 % (32.4-45.2); HEMOGLOBIN 10.4 GM/dL (10.7-15.3); LYMPH % 9.7 % (8-40); MCHC 32.1 g/dl (32.0-36.0); MEAN CELL VOLUME 84.1 fl (80-96); MEAN PLT VOLUME 7.8 fl (7.5-11.1); MONO % 11.8 % (3.8-10.2); NEUT % 74.2 % (42.8-82.8); PLATELET COUNT 290 K/MM3 (134-434); RBC 3.87 M/mm3 (3.60-5.2); WHITE BLOOD COUNT 8.1 K/mm3 (4.0-10.0)
--- NOTE | 2020-01-26 10:37 | PN ---
Progress Note (short form) - Note Progress Note: covering dr quiñones Problems 1. ELIZABETH 2. sepsis 3. shock 4. CHF 5. hx of htn 6. epidural abscess 7. ut 8. a-fib 9. hyponatremia Active Medications Baclofen (Lioresal -) 10 mg PO Q8H PRN PRN Reason: MUSCLE SPASMS Last Admin: 01/26/20 09:56 Dose: 10 mg Documented by: Chlorhexidine Gluconate (Hibiclens For Decolonization -) 1 applic TP HS LISA Last Admin: 01/25/20 21:29 Dose: 1 applic Documented by: Cyanocobalamin (Vitamin B12 -) 1,000 mcg PO DAILY LISA Last Admin: 01/26/20 09:56 Dose: 1,000 mcg Documented by: Docusate Sodium (Colace -) 100 mg PO Q8H PRN PRN Reason: CONSTIPATION Hydrocortisone (Hytone 1% Cream -) 1 applic TP DAILY PRN PRN Reason: FOR ITCHING Norepinephrine Bitartrate 8, (000 mcg/ Dextrose) 500 mls @ 9.588 mls/hr IV ASDIR LISA; Protocol Last Titration: 01/25/20 04:44 Dose: 5 mcg/kg/min, 1,598.063 mls/hr Documented by: Meropenem 1 gm/ Dextrose 100 mls @ 200 mls/hr IVPB Q12H LISA Last Admin: 01/26/20 02:27 Dose: 200 mls/hr Documented by: Vasopressin 40 units/ Sodium (Chloride) 100 mls @ 5 mls/hr IVPB ASDIR LISA; Protocol Last Titration: 01/25/20 12:17 Dose: 0 units/hr, 0 mls/hr Documented by: Daptomycin 500 mg/ Sodium (Chloride) 50 mls @ 100 mls/hr IVPB Q48H LISA; Protocol Sodium Chloride (Normal Saline -) 1,000 mls @ 50 mls/hr IV ASDIR LISA Stop: 01/31/20 14:01 Last Admin: 01/25/20 14:00 Dose: 50 mls/hr Documented by: Insulin Aspart (Novolog Vial Sliding Scale -) 1 vial SQ ACHS LISA; Protocol Last Admin: 01/26/20 06:19 Dose: 2 units Documented by: Lidocaine (Lidoderm Patch -) 1 patch TP DAILY LISA Last Admin: 01/26/20 09:55 Dose: 1 patch Documented by: Miscellaneous (Lidoderm Patch Removal) 1 each MC DAILY@2200 [facility] Last Admin: 01/25/20 21:30 Dose: 1 each Documented by: Mupirocin (Bactroban Ointment (For Decolonization) -) 1 applic NS BID [facility] Stop: 01/30/20 01:59 Last Admin: 01/26/20 09:57 Dose: 1 applic Documented by: Oxycodone HCl (Roxicodone -) 10 mg PO Q6H PRN PRN Reason: PAIN LEVEL 6-10 Last Admin: 01/25/20 18:44 Dose: 10 mg Documented by: Pramipexole Dihydrochloride (Mirapex -) 0.25 mg PO BID [facility] Last Admin: 01/26/20 09:56 Dose: 0.25 mg Documented by: Rivaroxaban (Xarelto) 15 mg PO DAILY@1800 [facility] Last Admin: 01/25/20 17:38 Dose: 15 mg Documented by: Last Vital Signs Temp Pulse Resp BP Pulse Ox 98.4 F 110 H 18 107/56 L 97 01/26/20 06:00 01/26/20 08:00 01/26/20 09:00 01/26/20 08:00 01/26/20 09:00 CBC, BMP 01/26/20 09:45 01/25/20 05:30 Sodium 126 L Potassium 4.2 Chloride 89 L Carbon Dioxide 23 Anion Gap 14 BUN 52.3 H Creatinine 3.2 H Est GFR (CKD-EPI)AfAm 15.86 Est GFR (CKD-EPI)NonAf 13.69 IMP ELIZABETH SEPSIS LOW Bp Plan continue curren t IV support
--- NOTE | 2020-01-26 10:41 | PN ---
Progress Note (short form) - Note Progress Note: s: no cp sob palps dizzy, remains on pressor Current Medications Generic Name Dose Route Start Last Admin Trade Name Freq PRN Reason Stop Dose Admin Baclofen 10 mg 01/25/20 16:39 01/26/20 09:56 Lioresal - PO 10 mg Q8H PRN Administration MUSCLE SPASMS Chlorhexidine Gluconate 1 applic 01/25/20 22:00 01/25/20 21:29 Hibiclens For Decolonization - TP 1 applic HS LISA Administration Cyanocobalamin 1,000 mcg 01/25/20 10:00 01/26/20 09:56 Vitamin B12 - PO 1,000 mcg DAILY LISA Administration Docusate Sodium 100 mg 01/25/20 08:49 Colace - PO Q8H PRN CONSTIPATION Hydrocortisone 1 applic 01/25/20 08:49 Hytone 1% Cream - TP DAILY PRN FOR ITCHING Norepinephrine Bitartrate 8, 500 mls @ 9.588 mls/hr 01/25/20 02:30 01/25/20 04:44 000 mcg/ Dextrose IV 5 mcg/kg/min ASDIR LISA 1,598.063 mls/hr Titration Protocol 0.03 MCG/KG/MIN Meropenem 1 gm/ Dextrose 100 mls @ 200 mls/hr 01/25/20 15:00 01/26/20 02:27 IVPB 200 mls/hr Q12H LISA Administration Vasopressin 40 units/ Sodium 100 mls @ 5 mls/hr 01/25/20 08:49 01/25/20 12:17 Chloride IVPB 0 units/hr ASDIR LISA 0 mls/hr Titration Protocol 2 UNITS/HR Daptomycin 500 mg/ Sodium 50 mls @ 100 mls/hr 01/26/20 15:30 Chloride IVPB Q48H LISA Protocol Sodium Chloride 1,000 mls @ 50 mls/hr 01/25/20 14:00 01/25/20 14:00 Normal Saline - IV 01/31/20 14:01 50 mls/hr ASDIR LISA Administration Insulin Aspart 1 vial 01/25/20 22:00 01/26/20 06:19 Novolog Vial Sliding Scale - SQ 2 units ACHS LISA Administration Protocol Lidocaine 1 patch 01/25/20 10:00 01/26/20 09:55 Lidoderm Patch - TP 1 patch DAILY LISA Administration Miscellaneous 1 each 01/25/20 22:00 01/25/20 21:30 Lidoderm Patch Removal MC 1 each DAILY@2200 LISA Administration Mupirocin 1 applic 01/25/20 02:00 01/26/20 09:57 Bactroban Ointment (For Decolonization) - NS 01/30/20 01:59 1 applic BID LISA Administration Oxycodone HCl 10 mg 01/25/20 04:44 01/25/20 18:44 Roxicodone - PO 10 mg Q6H PRN Administration PAIN LEVEL 6-10 Pramipexole Dihydrochloride 0.25 mg 01/25/20 10:00 01/26/20 09:56 Mirapex - PO 0.25 mg BID LISA Administration Rivaroxaban 15 mg 01/25/20 18:00 01/25/20 17:38 Xarelto PO 15 mg DAILY@1800 LISA Administration Vital Signs Temp 98.4 F 01/26/20 06:00 Pulse 110 H 01/26/20 08:00 Resp 18 01/26/20 09:00 BP 107/56 L 01/26/20 08:00 Pulse Ox 97 01/26/20 09:00 Intake & Output 01/25/20 01/25/20 01/26/20 11:59 23:59 11:59 Intake Total 556 1020.6 1016 Output Total 15 602 510 Balance 541 418.6 506 Weight 187 lb 14.4 oz Intake: IV 396 570.6 816 Levophed - 8,000 Mcg In 216 225.6 216 D5w - 492 ml @ 0.03 MCG/ KG/MIN 9.588 mls/hr IV ASDIR LISA Rx#:[id number] Normal Saline - 1,000 ml 250 600 @ 50 mls/hr IV ASDIR LISA Rx#:[id number] Normal Saline - 1,000 ml 75 @ 75 mls/hr IV ASDIR LISA Rx#:[id number] Pitressin - 40 Units In 180 Normal Saline - 98 ml @ 2 UNITS/HR 5 mls/hr IVPB ASDIR LISA Rx#:[id number] Pitressin - 40 Units In 20 Normal Saline - 98 ml @ 2 UNITS/HR 5 mls/hr IVPB ASDIR LISA Rx#:[id number] IVPB 100 100 100 Oral 60 350 100 Output: Drainage 15 2 Right Medial Back 15 2 Urine 600 510 Hines 600 500 Void 10 Other: Voiding Method Indwelling Catheter Indwelling Catheter Indwelling Catheter # Unmeasured Voids Hines 700 Bowel Movement No No No Body Mass Index (BMI) 34.2 Weight Measurement Method Built in [facility] Constitutional: Yes: No Distress, Calm Respiratory: CTAB Gastrointestinal: Yes: Soft, Abdomen, Obese Cardiovascular: Yes: Pulse Irregular, nl s1, s2, no mrg JVD: no Heart Sounds: Yes: S1, S2 (irreg) Edema: none Neurological: Yes: Alert, Oriented no jaundice, diaphoresis not agitated Laboratory Last Values WBC 8.1 K/mm3 (4.0-10.0) 01/26/20 09:45 Corrected WBC (auto) Cancelled 01/22/20 06:25 RBC 3.87 M/mm3 (3.60-5.2) 01/26/20 09:45 Hgb 10.4 GM/dL (10.7-15.3) L 01/26/20 09:45 Hct 32.5 % (32.4-45.2) 01/26/20 09:45 MCV 84.1 fl (80-96) 01/26/20 09:45 MCH 27.0 pg (25.7-33.7) 01/26/20 09:45 MCHC 32.1 g/dl (32.0-36.0) 01/26/20 09:45 RDW 18.0 % (11.6-15.6) H 01/26/20 09:45 Plt Count 290 K/MM3 (134-434) 01/26/20 09:45 MPV 7.8 fl (7.5-11.1) 01/26/20 09:45 Absolute Neuts (auto) 6.0 K/mm3 (1.5-8.0) 01/26/20 09:45 Neutrophils % 74.2 % (42.8-82.8) 01/26/20 09:45 Neutrophils % (Manual) 66.3 % (42.8-82.8) 01/23/20 07:00 Band Neutrophils % 3.2 % 01/23/20 07:00 Lymphocytes % 9.7 % (8-40) D 01/26/20 09:45 Lymphocytes % (Manual) 15.8 % (8-40) 01/23/20 07:00 Monocytes % 11.8 % (3.8-10.2) H 01/26/20 09:45 Monocytes % (Manual) 11 % (3.8-10.2) H 01/23/20 07:00 Eosinophils % 4.0 % (0-4.5) 01/26/20 09:45 Eosinophils % (Manual) 4.2 % (0-4.5) 01/23/20 07:00 Basophils % 0.3 % (0-2.0) 01/26/20 09:45 Basophils % (Manual) 0.0 % (0-2.0) 01/23/20 07:00 Myelocytes % (Man) 0 % (0-2) 01/23/20 07:00 Promyelocytes % (Man) 0 % (0-2) 01/23/20 07:00 Blast Cells % (Manual) 0 % (0-0) 01/23/20 07:00 Nucleated RBC % 0 % (0-0) 01/26/20 09:45 Metamyelocytes 0 % (0-2) 01/23/20 07:00 Manual Slide Review Cancelled 01/22/20 06:25 Hypochromia 0 01/23/20 07:00 Platelet Estimate Adequate 01/24/20 20:08 Platelet Comment No clumping noted 01/24/20 20:08 Polychromasia 1+ 01/23/20 07:00 Poikilocytosis 0 01/23/20 07:00 Anisocytosis 1+ 01/23/20 07:00 Microcytosis 1+ 01/23/20 07:00 Macrocytosis 0 01/23/20 07:00 ESR 88 mm/hr (0-30) H 01/21/20 07:04 PT with INR 18.60 SEC (9.7-13.0) H 01/20/20 06:45 INR 1.57 (0.83-1.09) H 01/20/20 06:45 PTT (Actin FS) 38.5 SECONDS (25.2-36.5) H 01/19/20 12:30 VBG pH 7.32 (7.31-7.41) 01/19/20 12:30 POC VBG pCO2 49.5 mmHg (38-52) 01/19/20 12:30 POC VBG pO2 < 49 mmHg (28-48) H 01/19/20 12:30 VBG HCO3 24.6 mmol/L (23-29) 01/19/20 12:30 VBG O2 Sat (Michael) 60.8 % (70-80) L 01/19/20 12:30 VBG Base Excess -1.9 mmol/L (-2-2) 01/19/20 12:30 Sodium 126 mmol/L (136-145) L 01/25/20 05:30 Potassium 4.2 mmol/L (3.5-5.1) 01/25/20 05:30 Chloride 89 mmol/L (98-107) L 01/25/20 05:30 Carbon Dioxide 23 mmol/L (21-32) 01/25/20 05:30 Anion Gap 14 MMOL/L (8-16) 01/25/20 05:30 BUN 52.3 mg/dL (7-18) H 01/25/20 05:30 Creatinine 3.2 mg/dL (0.55-1.3) H 01/25/20 05:30 Est GFR (CKD-EPI)AfAm 15.86 01/25/20 05:30 Est GFR (CKD-EPI)NonAf 13.69 01/25/20 05:30 POC Glucometer 344 UNITS (80-120) 01/25/20 21:30 Random Glucose 264 mg/dL (74-106) H 01/25/20 05:30 Serum Osmolality 281 mosm/kg (278-305) 01/24/20 23:00 Lactic Acid 2.4 mmol/L (0.4-2.0) H* 01/24/20 05:30 Calcium 8.6 mg/dL (8.5-10.1) 01/25/20 05:30 Total Bilirubin 0.5 mg/dL (0.2-1) 01/25/20 05:30 AST 19 U/L (15-37) 01/25/20 05:30 ALT 12 U/L (13-61) L 01/25/20 05:30 Alkaline Phosphatase 162 U/L (45-117) H 01/25/20 05:30 Troponin I < 0.02 ng/ml (0.00-0.05) 01/24/20 20:08 C-Reactive Protein 14.0 MG/DL (0.00-0.3) H 01/21/20 07:02 Total Protein 5.9 g/dl (6.4-8.2) L 01/25/20 05:30 Albumin 2.2 g/dl (3.4-5.0) L 01/25/20 05:30 Urine Color Yellow 01/24/20 23:59 Urine Appearance Turbid 01/24/20 23:59 Urine pH 5.0 (5.0-8.0) 01/24/20 23:59 Ur Specific [place] 1.018 (1.010-1.035) 01/24/20 23:59 Urine Protein 1+ (NEGATIVE) H 01/24/20 23:59 Urine Glucose (UA) Negative (NEGATIVE) 01/24/20 23:59 Urine Ketones Trace (NEGATIVE) H 01/24/20 23:59 Urine Blood Negative (NEGATIVE) 01/24/20 23:59 Urine Nitrite Negative (NEGATIVE) 01/24/20 23:59 Urine Bilirubin Negative (NEGATIVE) 01/24/20 23:59 Urine Urobilinogen 0.2 mg/dL (0.2-1.0) 01/24/20 23:59 Ur Leukocyte Esterase 2+ (NEGATIVE) H 01/24/20 23:59 Urine WBC (Auto) 124 /uL (0-25.8) 01/24/20 23:59 Urine RBC (Auto) 13 /uL (0-23.9) 01/24/20 23:59 Urine Casts (Auto) 10 /uL (0-3.1) 01/24/20 23:59 U Pathogenic Cast Auto None seen /lpf (NEGATIVE) 01/24/20 23:59 U Epithel Cells (Auto) >36 /uL (0-25.1) 01/24/20 23:59 Urine Crystals (Auto) None seen /hpf 01/24/20 23:59 Urine Bacteria (Auto) 98 /uL (0-1359) 01/24/20 23:59 Urine Yeast (Auto) None seen (NEGATIVE) 01/24/20 23:59 Urine Osmolality 268 mosm/kg (300-900) L 01/24/20 23:59 Ur Random Sodium 23 MMOL/L (40-220) L 01/25/20 00:00 Ur Random Potassium 34.0 MMOL/L (25-125) 01/25/20 00:00 Ur Random Chloride 29 MMOL/L (110-250) L 01/25/20 00:00 Vancomycin Pre-Dose 37.4 ug/ml (5-10) H* 01/24/20 20:08 COVID-19 (MATA) Not detected (Not Detected) 01/19/20 23:40 Blood Type O POSITIVE 01/19/20 17:30 Antibody Screen Negative 01/19/20 17:30 Echo: Report Reviewed ( Moderately reduced EF, Moderate MR (this admission); 2018 50-55% with mild MR) tele: afib, rate ok Imaging - Results X-ray: Image Reviewed (increase interstitial markings) est cct 35 mins Assessment/Plan IMP: Epidural abscess, wound infection Acute renal failure Hyponatremia Acute on chronic systolic CHF, with what appears to be new LV dysfx from 2018 Moderate MR Prolonged QT PAF HTN 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 REC: abd pain, epidural abscess: - manage per surgery, ID acute renal failure: -Suspect ATN due to periods of intermittent hypotension -Renal following -On pressors to maintain MAP 60 -Avoid nephrotoxins -renally dose meds, adjusted Xarelto Hypotension: -Now requiring pressors -Etiology unclear: ?volume depletion, ? sepsis -As per Critical Care, currently requiring pressors but bp improving so wean as tolerated. -f/u blood cultures UTI, bacteremia: - manage per primary, ID chronic systolic CHF, nonischemic cardiomyopathy, moderate MR: -known nonisch CMP with normal coronaries on cath x 2 -EF has fluctuated 35-55% over the years, likely in relation to severity of untreated NICHOLE, vs ? diabetic (uncontrolled glycemic status, does not f/u with PMD despite repeatedly advised to do so) -EF moderately reduced, last echo here EF 35-40% -does not appear vol overloaded now -in setting hypotension, hold torsemide, coreg, and entresto for now PAF: -Cont Xarelto, dose adjust for GFR DVT/PE with history of filter: -cont with AC NICHOLE: -not using CPAP
[2020-01-26 11:04] LABS: BILIRUBIN,TOTAL 0.3 mg/dL (0.2-1); BLOOD UREA NITROGEN 39.6 mg/dL (7-18); CALCIUM 8.1 mg/dL (8.5-10.1); CREATININE 1.3 mg/dL (0.55-1.3); MAGNESIUM 2.4 mg/dL (1.8-2.4); PHOSPHOROUS 3.6 mg/dL (2.5-4.9); POTASSIUM 4.4 mmol/L (3.5-5.1); TOT PROT 5.7 g/dl (6.4-8.2)
--- NOTE | 2020-01-26 13:19 | PN ---
Teaching Attending Note Name of Resident: Latoya Martinez ATTENDING PHYSICIAN STATEMENT I saw and evaluated the patient. I reviewed the resident's note and discussed the case with the resident. I agree with the resident's findings and plan as documented. SUBJECTIVE: Patient seen and examined in the ICU. Awake and alert. Apparently was mildly confused this AM. Received Benadryl for Insomnia overnight. Denies CP or SOB. Generalized fatigue. NE @ 4 mcq for hemodynamic support. Intake & Output 01/23/20 01/24/20 01/25/20 01/26/20 23:59 23:59 23:59 23:59 Intake Total 1130 1680 1576.6 1016 Output Total 7 50 617 510 Balance 1123 1630 959.6 506 Weight 189 lb 4 oz 187 lb 14.4 oz 187 lb 14.4 oz Last Vital Signs Temp Pulse Resp BP Pulse Ox 98.6 F 108 H 18 101/80 97 01/26/20 10:00 01/26/20 12:00 01/26/20 12:00 01/26/20 12:00 01/26/20 10:00 Active Medications Baclofen (Lioresal -) 10 mg PO Q8H PRN PRN Reason: MUSCLE SPASMS Last Admin: 01/26/20 09:56 Dose: 10 mg Documented by: Chlorhexidine Gluconate (Hibiclens For Decolonization -) 1 applic TP HS LISA Last Admin: 01/25/20 21:29 Dose: 1 applic Documented by: Cyanocobalamin (Vitamin B12 -) 1,000 mcg PO DAILY LISA Last Admin: 01/26/20 09:56 Dose: 1,000 mcg Documented by: Docusate Sodium (Colace -) 100 mg PO Q8H PRN PRN Reason: CONSTIPATION Hydrocortisone (Hytone 1% Cream -) 1 applic TP DAILY PRN PRN Reason: FOR ITCHING Norepinephrine Bitartrate 8, (000 mcg/ Dextrose) 500 mls @ 9.588 mls/hr IV ASDIR LISA; Protocol Last Titration: 01/26/20 10:00 Dose: 0 mcg/kg/min, 0 mls/hr Documented by: Meropenem 1 gm/ Dextrose 100 mls @ 200 mls/hr IVPB Q12H LISA Last Admin: 01/26/20 02:27 Dose: 200 mls/hr Documented by: Vasopressin 40 units/ Sodium (Chloride) 100 mls @ 5 mls/hr IVPB ASDIR [facility]; Protocol Last Titration: 01/25/20 12:17 Dose: 0 units/hr, 0 mls/hr Documented by: Daptomycin 500 mg/ Sodium (Chloride) 50 mls @ 100 mls/hr IVPB Q48H [facility]; Protocol Sodium Chloride (Normal Saline -) 1,000 mls @ 50 mls/hr IV ASDIR [facility] Stop: 01/31/20 14:01 Last Admin: 01/25/20 14:00 Dose: 50 mls/hr Documented by: Insulin Aspart (Novolog Vial Sliding Scale -) 1 vial SQ ACHS [facility]; Protocol Last Admin: 01/26/20 10:49 Dose: 4 units Documented by: Lidocaine (Lidoderm Patch -) 1 patch TP DAILY [facility] Last Admin: 01/26/20 09:55 Dose: 1 patch Documented by: Miscellaneous (Lidoderm Patch Removal) 1 each MC DAILY@2200 [facility] Last Admin: 01/25/20 21:30 Dose: 1 each Documented by: Mupirocin (Bactroban Ointment (For Decolonization) -) 1 applic NS BID [facility] Stop: 01/30/20 01:59 Last Admin: 01/26/20 09:57 Dose: 1 applic Documented by: Oxycodone HCl (Roxicodone -) 10 mg PO Q6H PRN PRN Reason: PAIN LEVEL 6-10 Last Admin: 01/25/20 18:44 Dose: 10 mg Documented by: Pramipexole Dihydrochloride (Mirapex -) 0.25 mg PO BID [facility] Last Admin: 01/26/20 09:56 Dose: 0.25 mg Documented by: Rivaroxaban (Xarelto) 15 mg PO DAILY@1800 [facility] Last Admin: 01/25/20 17:38 Dose: 15 mg Documented by: GENERAL: elderly, frail appearing, NAD HEENT: dry mucous membranes NECK/BACK: full ROM, neck supple CARDIOVASCULAR: irregularly irregular LUNGS/RESPIRATORY: diminished at the bases GI/ABDOMEN: soft, normoactive BS, soft, no ttp : no CVA tenderness MSK/EXTREMITIES: no acute deformity SKIN: warm and dry, no pallor, no jaundice, no rash NEUROLOGICAL: Non-focal Laboratory Results - last 24 hr 01/25/20 01/25/2020 16:42 21:30 06:07 WBC RBC Hgb Hct MCV MCH MCHC RDW Plt Count MPV Absolute Neuts (auto) Neutrophils % Lymphocytes % Monocytes % Eosinophils % Basophils % Nucleated RBC % Sodium Potassium Chloride Carbon Dioxide Anion Gap BUN Creatinine Est GFR (CKD-EPI)AfAm Est GFR (CKD-EPI)NonAf POC Glucometer 220 344 199 Random Glucose Calcium Phosphorus Magnesium Total Bilirubin AST ALT Alkaline Phosphatase Total Protein Albumin 01/26/20 01/26/20 01/26/20 09:45 09:45 10:47 WBC 8.1 RBC 3.87 Hgb 10.4 L Hct 32.5 MCV 84.1 MCH 27.0 MCHC 32.1 RDW 18.0 H Plt Count 290 MPV 7.8 Absolute Neuts (auto) 6.0 Neutrophils % 74.2 Lymphocytes % 9.7 D Monocytes % 11.8 H Eosinophils % 4.0 Basophils % 0.3 Nucleated RBC % 0 Sodium 130 L Potassium 4.4 Chloride 95 L Carbon Dioxide 26 Anion Gap 9 BUN 39.6 H Creatinine 1.3 Est GFR (CKD-EPI)AfAm 47.13 Est GFR (CKD-EPI)NonAf 40.67 POC Glucometer 238 Random Glucose 233 H Calcium 8.1 L Phosphorus 3.6 Magnesium 2.4 Total Bilirubin 0.3 AST 22 ALT 12 L Alkaline Phosphatase 156 H Total Protein 5.7 L Albumin 2.0 L ASSESSMENT / PLAN: Septic Shock due to soft tissue infection. CHF (EF 35-40%) RA DM 2 HTN Hx DVT/PE AFib on Xarelto Non-ischemic cardiomyopathy History of multiple spine surgeries S/P L4/5 laminectomy L5/S1 seroma with recent epidural abscess drainage s/p I & D S/P complex wound closure and wound vac placement 11/26 Hyponatremia If further clinical decompensation will re-image : and IR evaluation Pressors to maintain MAP > 65 IVF resuscitation base on CVP guidance Strict I & O PO as tolerated ABX per ID AC with Xarelto Glycemic control Orthopedic follow up Requires ICU monitoring for pressors Dr Hernandez Critical care time spent in reviewing chart, evaluating patient and formulating plan - 36 minutes.
[2020-01-26] MEDS: NOREPINEPHRINE BITARTRATE 8,000 MCG in DEXTROSE 5%-WATER - 492 ML IV SCH (13:20)
[2020-01-26] MEDS: SODIUM CHLORIDE 1,000 ML IV SCH (13:22)
--- NOTE | 2020-01-26 14:07 | PN ---
Progress Note, Physician History of Present Illness: Pt seen and examined in the ICU. Alert, without acute distress. Currently denies back pain. - Current Medication List Current Medications: Active Medications Baclofen (Lioresal -) 10 mg PO Q8H PRN PRN Reason: MUSCLE SPASMS Last Admin: 01/26/20 09:56 Dose: 10 mg Documented by: Chlorhexidine Gluconate (Hibiclens For Decolonization -) [address] [facility] Last Admin: 01/25/20 21:29 Dose: 1 applic Documented by: Cyanocobalamin (Vitamin B12 -) 1,000 mcg PO DAILY LISA Last Admin: 01/26/20 09:56 Dose: 1,000 mcg Documented by: Docusate Sodium (Colace -) 100 mg PO Q8H PRN PRN Reason: CONSTIPATION Hydrocortisone (Hytone 1% Cream -) 1 applic TP DAILY PRN PRN Reason: FOR ITCHING Norepinephrine Bitartrate 8, (000 mcg/ Dextrose) 500 mls @ 9.588 mls/hr IV ASDIR LISA; Protocol Last Admin: 01/26/20 13:20 Dose: Not Given Documented by: Meropenem 1 gm/ Dextrose 100 mls @ 200 mls/hr IVPB Q12H [facility] Last Admin: 01/26/20 02:27 Dose: 200 mls/hr Documented by: Vasopressin 40 units/ Sodium (Chloride) 100 mls @ 5 mls/hr IVPB ASDIR LISA; Protocol Last Titration: 01/25/20 12:17 Dose: 0 units/hr, 0 mls/hr Documented by: Daptomycin 500 mg/ Sodium (Chloride) 50 mls @ 100 mls/hr IVPB Q48H [facility]; Protocol Sodium Chloride (Normal Saline -) 1,000 mls @ 50 mls/hr IV ASDIR LISA Stop: 01/31/20 14:01 Last Admin: 01/26/20 13:22 Dose: 50 mls/hr Documented by: Insulin Aspart (Novolog Vial Sliding Scale -) 1 vial SQ ACHS LISA; Protocol Last Admin: 01/26/20 10:49 Dose: 4 units Documented by: Lidocaine (Lidoderm Patch -) [address] [facility] Last Admin: 01/26/20 09:55 Dose: 1 patch Documented by: Miscellaneous (Lidoderm Patch Removal) 1 each MC DAILY@2200 [facility] Last Admin: 01/25/20 21:30 Dose: 1 each Documented by: Mupirocin (Bactroban Ointment (For Decolonization) -) [address] [facility] Stop: 01/30/20 01:59 Last Admin: 01/26/20 09:57 Dose: 1 applic Documented by: Oxycodone HCl (Roxicodone -) 10 mg PO Q6H PRN PRN Reason: PAIN LEVEL 6-10 Last Admin: 01/25/20 18:44 Dose: 10 mg Documented by: Pramipexole Dihydrochloride (Mirapex -) 0.[address] [facility] Last Admin: 01/26/20 09:56 Dose: 0.25 mg Documented by: Rivaroxaban (Xarelto) 15 mg PO DAILY@1800 [facility] Last Admin: 01/25/20 17:38 Dose: 15 mg Documented by: - Objective Vital Signs: Vital Signs Temperature 98.6 F 01/26/20 10:00 Pulse Rate 108 H 01/26/20 12:00 Respiratory Rate 18 01/26/20 12:00 Blood Pressure 101/80 01/26/20 12:00 O2 Sat by Pulse Oximetry (%) 97 01/26/20 10:00 Constitutional: Yes: No Distress, Calm Cardiovascular: Yes: Pulse Irregular Respiratory: Yes: Regular Gastrointestinal: Yes: Normal Bowel Sounds, Soft Genitourinary: Yes: WNL Musculoskeletal: Yes: Other (Back dressing intact/dry, +DASH drain empty) Extremities: Yes: WNL Wound/Incision: Yes: Dressing Dry and Intact Neurological: Yes: Alert, Oriented Labs: CBC, BMP 01/26/20 09:45 01/26/20 09:45 INR, PTT INR 1.57 (0.83-1.09) H 01/20/20 06:45 Laboratory Last Values WBC 8.1 K/mm3 (4.0-10.0) 01/26/20 09:45 Corrected WBC (auto) Cancelled 01/22/20 06:25 RBC 3.87 M/mm3 (3.60-5.2) 01/26/20 09:45 Hgb 10.4 GM/dL (10.7-15.3) L 01/26/20 09:45 Hct 32.5 % (32.4-45.2) 01/26/20 09:45 MCV 84.1 fl (80-96) 01/26/20 09:45 MCH 27.0 pg (25.7-33.7) 01/26/20 09:45 MCHC 32.1 g/dl (32.0-36.0) 01/26/20 09:45 RDW 18.0 % (11.6-15.6) H 01/26/20 09:45 Plt Count 290 K/MM3 (134-434) 01/26/20 09:45 MPV 7.8 fl (7.5-11.1) 01/26/20 09:45 Absolute Neuts (auto) 6.0 K/mm3 (1.5-8.0) 01/26/20 09:45 Neutrophils % 74.2 % (42.8-82.8) 01/26/20 09:45 Neutrophils % (Manual) 66.3 % (42.8-82.8) 01/23/20 07:00 Band Neutrophils % 3.2 % 01/23/20 07:00 Lymphocytes % 9.7 % (8-40) D 01/26/20 09:45 Lymphocytes % (Manual) 15.8 % (8-40) 01/23/20 07:00 Monocytes % 11.8 % (3.8-10.2) H 01/26/20 09:45 Monocytes % (Manual) 11 % (3.8-10.2) H 01/23/20 07:00 Eosinophils % 4.0 % (0-4.5) 01/26/20 09:45 Eosinophils % (Manual) 4.2 % (0-4.5) 01/23/20 07:00 Basophils % 0.3 % (0-2.0) 01/26/20 09:45 Basophils % (Manual) 0.0 % (0-2.0) 01/23/20 07:00 Myelocytes % (Man) 0 % (0-2) 01/23/20 07:00 Promyelocytes % (Man) 0 % (0-2) 01/23/20 07:00 Blast Cells % (Manual) 0 % (0-0) 01/23/20 07:00 Nucleated RBC % 0 % (0-0) 01/26/20 09:45 Metamyelocytes 0 % (0-2) 01/23/20 07:00 Manual Slide Review Cancelled 01/22/20 06:25 Hypochromia 0 01/23/20 07:00 Platelet Estimate Adequate 01/24/20 20:08 Platelet Comment No clumping noted 01/24/20 20:08 Polychromasia 1+ 01/23/20 07:00 Poikilocytosis 0 01/23/20 07:00 Anisocytosis 1+ 01/23/20 07:00 Microcytosis 1+ 01/23/20 07:00 Macrocytosis 0 01/23/20 07:00 ESR 88 mm/hr (0-30) H 01/21/20 07:04 PT with INR 18.60 SEC (9.7-13.0) H 01/20/20 06:45 INR 1.57 (0.83-1.09) H 01/20/20 06:45 PTT (Actin FS) 38.5 SECONDS (25.2-36.5) H 01/19/20 12:30 VBG pH 7.32 (7.31-7.41) 01/19/20 12:30 POC VBG pCO2 49.5 mmHg (38-52) 01/19/20 12:30 POC VBG pO2 < 49 mmHg (28-48) H 01/19/20 12:30 VBG HCO3 24.6 mmol/L (23-29) 01/19/20 12:30 VBG O2 Sat (Michael) 60.8 % (70-80) L 01/19/20 12:30 VBG Base Excess -1.9 mmol/L (-2-2) 01/19/20 12:30 Sodium 130 mmol/L (136-145) L 01/26/20 09:45 Potassium 4.4 mmol/L (3.5-5.1) 01/26/20 09:45 Chloride 95 mmol/L (98-107) L 01/26/20 09:45 Carbon Dioxide 26 mmol/L (21-32) 01/26/20 09:45 Anion Gap 9 MMOL/L (8-16) 01/26/20 09:45 BUN 39.6 mg/dL (7-18) H 01/26/20 09:45 Creatinine 1.3 mg/dL (0.55-1.3) 01/26/20 09:45 Est GFR (CKD-EPI)AfAm 47.13 01/26/20 09:45 Est GFR (CKD-EPI)NonAf 40.67 01/26/20 09:45 POC Glucometer 238 UNITS (80-120) 01/26/20 10:47 Random Glucose 233 mg/dL (74-106) H 01/26/20 09:45 Serum Osmolality 281 mosm/kg (278-305) 01/24/20 23:00 Lactic Acid 2.4 mmol/L (0.4-2.0) H* 01/24/20 05:30 Calcium 8.1 mg/dL (8.5-10.1) L 01/26/20 09:45 Phosphorus 3.6 mg/dL (2.5-4.9) 01/26/20 09:45 Magnesium 2.4 mg/dL (1.8-2.4) 01/26/20 09:45 Total Bilirubin 0.3 mg/dL (0.2-1) 01/26/20 09:45 AST 22 U/L (15-37) 01/26/20 09:45 ALT 12 U/L (13-61) L 01/26/20 09:45 Alkaline Phosphatase 156 U/L (45-117) H 01/26/20 09:45 Troponin I < 0.02 ng/ml (0.00-0.05) 01/24/20 20:08 C-Reactive Protein 14.0 MG/DL (0.00-0.3) H 01/21/20 07:02 Total Protein 5.7 g/dl (6.4-8.2) L 01/26/20 09:45 Albumin 2.0 g/dl (3.4-5.0) L 01/26/20 09:45 Urine Color Yellow 01/24/20 23:59 Urine Appearance Turbid 01/24/20 23:59 Urine pH 5.0 (5.0-8.0) 01/24/20 23:59 Ur Specific [place] 1.018 (1.010-1.035) 01/24/20 23:59 Urine Protein 1+ (NEGATIVE) H 01/24/20 23:59 Urine Glucose (UA) Negative (NEGATIVE) 01/24/20 23:59 Urine Ketones Trace (NEGATIVE) H 01/24/20 23:59 Urine Blood Negative (NEGATIVE) 01/24/20 23:59 Urine Nitrite Negative (NEGATIVE) 01/24/20 23:59 Urine Bilirubin Negative (NEGATIVE) 01/24/20 23:59 Urine Urobilinogen 0.2 mg/dL (0.2-1.0) 01/24/20 23:59 Ur Leukocyte Esterase 2+ (NEGATIVE) H 01/24/20 23:59 Urine WBC (Auto) 124 /uL (0-25.8) 01/24/20 23:59 Urine RBC (Auto) 13 /uL (0-23.9) 01/24/20 23:59 Urine Casts (Auto) 10 /uL (0-3.1) 01/24/20 23:59 U Pathogenic Cast Auto None seen /lpf (NEGATIVE) 01/24/20 23:59 U Epithel Cells (Auto) >36 /uL (0-25.1) 01/24/20 23:59 Urine Crystals (Auto) None seen /hpf 01/24/20 23:59 Urine Bacteria (Auto) 98 /uL (0-1359) 01/24/20 23:59 Urine Yeast (Auto) None seen (NEGATIVE) 01/24/20 23:59 Urine Osmolality 268 mosm/kg (300-900) L 01/24/20 23:59 Ur Random Sodium 23 MMOL/L (40-220) L 01/25/20 00:00 Ur Random Potassium 34.0 MMOL/L (25-125) 01/25/20 00:00 Ur Random Chloride 29 MMOL/L (110-250) L 01/25/20 00:00 Vancomycin Pre-Dose 37.4 ug/ml (5-10) H* 01/24/20 20:08 COVID-19 (MATA) Not detected (Not Detected) 01/19/20 23:40 Blood Type O POSITIVE 01/19/20 17:30 Antibody Screen Negative 01/19/20 17:30 Microbiology 01/22/20 13:40 Blood - Peripheral Venous Blood Culture - Preliminary NO GROWTH OBTAINED AFTER 96 HOURS, INCUBATION TO CONTINUE FOR 1 DAYS. 01/22/20 13:50 Blood - Peripheral Venous Blood Culture - Preliminary NO GROWTH OBTAINED AFTER 96 HOURS, INCUBATION TO CONTINUE FOR 1 DAYS. 01/21/20 16:45 Body Fluid - Other Gram Stain - Final 01/21/20 16:45 Body Fluid - Other Body Fluid Culture - Final Staphylococcus Aureus Escherichia Coli Esbl Outside [employer] Worker Pseudo Fluorescens/[place] Acinetobacter Lwoffii Serratia Marcescens Proteus Mirabilis Enterococcus Faecalis 01/21/20 16:45 Body Fluid - Other Anaerobic Culture - Final Prevotella Bivia 01/19/20 12:30 Blood - Peripheral Venous Blood Culture - Final Burkholderia Cepacia 01/21/20 16:40 Drainage Gram Stain - Final 01/21/20 16:40 Drainage Body Fluid Culture - Final Lactose Fermenting Neg Bacilli Group D Strep Or Entero Coccus Proteus Species Diphtheroid/Corynebacterium 01/21/20 16:40 Drainage Anaerobic Culture - Final 01/24/20 05:30 Blood - Peripheral Venous Blood Culture - Preliminary NO GROWTH OBTAINED AFTER 24 HOURS, INCUBATION TO CONTINUE FOR 4 DAYS. 01/24/20 05:30 Blood - Peripheral Venous Blood Culture - Preliminary NO GROWTH OBTAINED AFTER 24 HOURS, INCUBATION TO CONTINUE FOR 4 DAYS. 01/19/20 12:30 Blood - Peripheral Venous Blood Culture - Final NO GROWTH AFTER 5 DAYS INCUBATION 01/21/20 12:15 Urine - Urine Clean Catch Urine Culture - Final NO GROWTH OBTAINED 01/19/20 18:14 Urine - Urine Clean Catch Urine Culture - Final Contaminated: Please Repeat Problem List - Problems (1) UTI (urinary tract infection) Code(s): N39.0 - URINARY TRACT INFECTION, SITE NOT SPECIFIED (2) Epidural abscess Code(s): G06.2 - EXTRADURAL AND SUBDURAL ABSCESS, UNSPECIFIED (3) Chronic systolic heart failure Code(s): I50.22 - CHRONIC SYSTOLIC (CONGESTIVE) HEART FAILURE (4) Diabetes Code(s): E11.9 - TYPE 2 DIABETES MELLITUS WITHOUT COMPLICATIONS Qualifiers: Diabetes mellitus type: type 2 (5) History of DVT (deep vein thrombosis) Code(s): Z86.718 - PERSONAL HISTORY OF OTHER VENOUS THROMBOSIS AND EMBOLISM (6) Hypertension Code(s): I10 - ESSENTIAL (PRIMARY) HYPERTENSION (7) Non-ischemic cardiomyopathy Code(s): I42.9 - CARDIOMYOPATHY, UNSPECIFIED (8) Obstructive sleep apnea Code(s): G47.33 - OBSTRUCTIVE SLEEP APNEA (ADULT) (PEDIATRIC) Assessment/Plan Septic shock Bacteremia UTI Polymicrobial Epidural abscess - s/p drainage/DASH in place RA DM CHF Hx of DVT AFIB -- events noted, chart/lab results reviewed -- pt on Norepinephrine -- Continue Meropenem/Daptomycin for now -- check CK level -- wbc trending down, remains afebrile -- Orthopedics follow up -- continue monitor vitals cc time: 38 min
[2020-01-26] MEDS ORDERED: DAPTOMYCIN 500 MG in SODIUM CHLORIDE 50 ML IVPB SCH (15:30)
[2020-01-26] MEDS ORDERED: diphenhydrAMINE HCL 25 MG CAPSULE (FP) PO ONE (17:09)
[2020-01-26] MEDS: RIVAROXABAN 15 MG TABLET PO SCH (17:26)
[2020-01-26] MEDS ORDERED: FAMOTIDINE 20 MG/50 ML IVPB 20 MG/50 ML MG IVPB ONE (18:12)
[2020-01-26] MEDS ORDERED: methylPREDNISolone NA SUCC 125 MG/2 ML VIAL IVPB ONE (19:42)
[2020-01-26] MEDS: oxyCODONE HCL 5 MG TABLET PO PRN (21:01)
[2020-01-26] MEDS: LIDOCAINE PATCH REMOVAL MC SCH (21:02)
[2020-01-26] MEDS: CHLORHEXIDINE GLUCONATE 4% CLEANSER FOR DECOLONIZATION TP SCH (21:02)
[2020-01-26] MEDS ORDERED: CARVEDILOL 6.25 MG TABLET (FP) PO SCH (22:00)
[2020-01-27] MEDS ORDERED: MELATONIN 5 MG TABLETS PO ONE (00:24)
[2020-01-27] MEDS ORDERED: diazePAM 5 MG TABLET PO ONE (01:33)
[2020-01-27] MEDS ORDERED: DEXTROSE 5%-WATER 100 ML IVPB ONE (01:38)
[2020-01-27] MEDS ORDERED: MEROPENEM 1 GM VIAL (RESTRICTED TO ID) IVPB ONE (01:38)
[2020-01-27] MEDS ORDERED: CARVEDILOL 6.25 MG TABLET (FP) PO SCH ×2 (01:43→22:00)
[2020-01-27] MEDS: MEROPENEM 1 GM in DEXTROSE 5%-WATER 100 ML IVPB SCH ×2 (02:22→16:50)
[2020-01-27] MEDS: INSULIN SLIDING SCALE (NOVOLOG) 1 VIAL SQ SCH ×4 (06:39→21:07)
[2020-01-27 07:21] LABS: BASO % 0.4 % (0-2.0); EOS % 0.2 % (0-4.5); HEMATOCRIT 37.6 % (32.4-45.2); LYMPH % 15.5 % (8-40); MCH 27.1 pg (25.7-33.7); MEAN CELL VOLUME 84.7 fl (80-96); MONO % 2.4 % (3.8-10.2); NEUT % 81.5 % (42.8-82.8); PLATELET COUNT 317 K/MM3 (134-434); RBC 4.44 M/mm3 (3.60-5.2); RDW 18.5 % (11.6-15.6); WHITE BLOOD COUNT 5.4 K/mm3 (4.0-10.0)
[2020-01-27 07:51] LABS: ALBUMIN 2.2 g/dl (3.4-5.0); BILIRUBIN,TOTAL 0.4 mg/dL (0.2-1); BLOOD UREA NITROGEN 43.2 mg/dL (7-18); CALCIUM 8.5 mg/dL (8.5-10.1); MAGNESIUM 2.8 mg/dL (1.8-2.4); PHOSPHOROUS 4.1 mg/dL (2.5-4.9); POTASSIUM 5.2 mmol/L (3.5-5.1); TOT PROT 6.4 g/dl (6.4-8.2)
[2020-01-27 07:57] LABS: CREATININE 1.2 mg/dL (0.55-1.3)
[2020-01-27] MEDS ORDERED: PT OWN MED DRAWER 7, Y5N ONE ×2 (09:03→21:14)
[2020-01-27] MEDS: CYANOCOBALAMIN 1,000 MCG TABLET (FP) PO SCH (09:04)
[2020-01-27] MEDS: LIDOCAINE 5% TOPICAL PATCH TP SCH (09:04)
[2020-01-27] MEDS: BACLOFEN 10 MG TABLET (FP) PO PRN (09:05)
[2020-01-27] MEDS: MUPIROCIN 2% TOPICAL OINTMENT FOR DECOLONIZATION NS SCH (09:05)
[2020-01-27] MEDS: PRAMIPEXOLE DIHYDROCHLORIDE 0.25 MG TABLET PO SCH ×2 (09:06→21:16)
[2020-01-27] MEDS ORDERED: ALPRAZolam 1 MG TABLET PO PRN (10:03)
--- NOTE | 2020-01-27 11:48 | PN ---
Progress Note (short form) - Note Progress Note: s: no cp sob palps dizzy, agitated this AM Current Medications Generic Name Dose Route Start Last Admin Trade Name Freq PRN Reason Stop Dose Admin Alprazolam 1 mg 01/27/20 10:03 01/27/20 10:11 Xanax PO 1 mg Q12H PRN Administration ANXIETY Baclofen 10 mg 01/25/20 16:39 01/27/20 09:05 Lioresal - PO 10 mg Q8H PRN Administration MUSCLE SPASMS Carvedilol 12.5 mg 01/27/20 01:43 01/27/20 09:05 Coreg - PO 12.5 mg BID LISA Administration Chlorhexidine Gluconate 1 applic 01/25/20 22:00 01/26/20 21:02 Hibiclens For Decolonization - TP 1 applic HS LISA Administration Cyanocobalamin 1,000 mcg 01/25/20 10:00 01/27/20 09:04 Vitamin B12 - PO 1,000 mcg DAILY LISA Administration Docusate Sodium 100 mg 01/25/20 08:49 Colace - PO Q8H PRN CONSTIPATION Hydrocortisone 1 applic 01/25/20 08:49 01/26/20 14:22 Hytone 1% Cream - TP 1 applic DAILY PRN Administration FOR ITCHING Norepinephrine Bitartrate 8, 500 mls @ 9.588 mls/hr 01/25/20 02:30 01/26/20 13:20 000 mcg/ Dextrose IV Not Given ASDIR LISA Protocol 0.03 MCG/KG/MIN Meropenem 1 gm/ Dextrose 100 mls @ 200 mls/hr 01/25/20 15:00 01/27/20 02:22 IVPB 200 mls/hr Q12H LISA Administration Vasopressin 40 units/ Sodium 100 mls @ 5 mls/hr 01/25/20 08:49 01/25/20 12:17 Chloride IVPB 0 units/hr ASDIR LISA 0 mls/hr Titration Protocol 2 UNITS/HR Daptomycin 500 mg/ Sodium 50 mls @ 100 mls/hr 01/26/20 15:30 01/26/20 15:47 Chloride IVPB 100 mls/hr Q48H LISA Administration Protocol Sodium Chloride 1,000 mls @ 50 mls/hr 01/25/20 14:00 06/20/20 13:22 Normal Saline - IV 01/31/20 14:01 50 mls/hr ASDIR LISA Administration Insulin Aspart 1 vial 01/25/20 22:00 01/27/20 10:12 Novolog Vial Sliding Scale - SQ 10 units ACHS LISA Administration Protocol Lidocaine 1 patch 01/25/20 10:00 01/27/20 09:04 Lidoderm Patch - TP 1 patch DAILY LISA Administration Miscellaneous 1 each 01/25/20 22:00 01/26/20 21:02 Lidoderm Patch Removal MC 1 each DAILY@2200 LISA Administration Mupirocin 1 applic 01/25/20 02:00 01/27/20 09:05 Bactroban Ointment (For Decolonization) - NS 01/30/20 01:59 1 applic BID LISA Administration Oxycodone HCl 10 mg 01/25/20 04:44 01/26/20 21:01 Roxicodone - PO 10 mg Q6H PRN Administration PAIN LEVEL 6-10 Pramipexole Dihydrochloride 0.25 mg 01/25/20 10:00 01/27/20 09:06 Mirapex - PO 0.25 mg BID LISA Administration Rivaroxaban 15 mg 01/25/20 18:00 01/26/20 17:26 Xarelto PO 15 mg DAILY@1800 LISA Administration Vital Signs Temp 97.9 F 01/27/20 04:00 Pulse 146 H 01/27/20 10:00 Resp 22 H 01/27/20 10:00 BP 109/74 01/27/20 10:00 Pulse Ox 98 01/27/20 10:00 Intake & Output 01/26/20 01/26/20 01/27/20 11:59 23:59 11:59 Intake Total 1016 1060 600 Output Total 092 089 6676 Balance 506 560 -600 Intake: IV 816 620 400 Levophed - 8,000 Mcg In 216 20 D5w - 492 ml @ 0.03 MCG/ KG/MIN 9.588 mls/hr IV ASDIR LISA Rx#:[id number] Normal Saline - 1,000 ml 600 600 400 @ 50 mls/hr IV ASDIR LISA Rx#:[id number] IVPB 100 200 100 Oral 100 240 100 Output: Drainage 0 Right Medial Back 0 Urine 540 750 9589 Hines 924 260 2284 Void 10 Other: Voiding Method Indwelling Catheter Indwelling Catheter Indwelling Catheter Bowel Movement No Yes No Constitutional: Yes: No Distress, Calm Respiratory: CTAB Gastrointestinal: Yes: Soft, Abdomen, Obese Cardiovascular: Yes: Pulse Irregular, nl s1, s2, no mrg JVD: no Heart Sounds: Yes: S1, S2 (irreg) Edema: none Neurological: Yes: Alert, Oriented no jaundice, diaphoresis not agitated Laboratory Last Values WBC 5.4 K/mm3 (4.0-10.0) 01/27/20 06:25 Corrected WBC (auto) Cancelled 01/22/20 06:25 RBC 4.44 M/mm3 (3.60-5.2) 01/27/20 06:25 Hgb 12.0 GM/dL (10.7-15.3) 01/27/20 06:25 Hct 37.6 % (32.4-45.2) D 01/27/20 06:25 MCV 84.7 fl (80-96) 01/27/20 06:25 MCH 27.1 pg (25.7-33.7) 01/27/20 06:25 MCHC 32.0 g/dl (32.0-36.0) 01/27/20 06:25 RDW 18.5 % (11.6-15.6) H 01/27/20 06:25 Plt Count 317 K/MM3 (134-434) 01/27/20 06:25 MPV 8.0 fl (7.5-11.1) 01/27/20 06:25 Absolute Neuts (auto) 4.4 K/mm3 (1.5-8.0) 01/27/20 06:25 Neutrophils % 81.5 % (42.8-82.8) 01/27/20 06:25 Neutrophils % (Manual) 66.3 % (42.8-82.8) 01/23/20 07:00 Band Neutrophils % 3.2 % 01/23/20 07:00 Lymphocytes % 15.5 % (8-40) D 01/27/20 06:25 Lymphocytes % (Manual) 15.8 % (8-40) 01/23/20 07:00 Monocytes % 2.4 % (3.8-10.2) L 01/27/20 06:25 Monocytes % (Manual) 11 % (3.8-10.2) H 01/23/20 07:00 Eosinophils % 0.2 % (0-4.5) D 01/27/20 06:25 Eosinophils % (Manual) 4.2 % (0-4.5) 01/23/20 07:00 Basophils % 0.4 % (0-2.0) 01/27/20 06:25 Basophils % (Manual) 0.0 % (0-2.0) 01/23/20 07:00 Myelocytes % (Man) 0 % (0-2) 01/23/20 07:00 Promyelocytes % (Man) 0 % (0-2) 01/23/20 07:00 Blast Cells % (Manual) 0 % (0-0) 01/23/20 07:00 Nucleated RBC % 0 % (0-0) 01/27/20 06:25 Metamyelocytes 0 % (0-2) 01/23/20 07:00 Manual Slide Review Cancelled 01/22/20 06:25 Hypochromia 0 01/23/20 07:00 Platelet Estimate Adequate 01/24/20 20:08 Platelet Comment No clumping noted 01/24/20 20:08 Polychromasia 1+ 01/23/20 07:00 Poikilocytosis 0 01/23/20 07:00 Anisocytosis 1+ 01/23/20 07:00 Microcytosis 1+ 01/23/20 07:00 Macrocytosis 0 01/23/20 07:00 ESR 88 mm/hr (0-30) H 01/21/20 07:04 PT with INR 18.60 SEC (9.7-13.0) H 01/20/20 06:45 INR 1.57 (0.83-1.09) H 01/20/20 06:45 PTT (Actin FS) 38.5 SECONDS (25.2-36.5) H 01/19/20 12:30 VBG pH 7.32 (7.31-7.41) 01/19/20 12:30 POC VBG pCO2 49.5 mmHg (38-52) 01/19/20 12:30 POC VBG pO2 < 49 mmHg (28-48) H 01/19/20 12:30 VBG HCO3 24.6 mmol/L (23-29) 01/19/20 12:30 VBG O2 Sat (Michael) 60.8 % (70-80) L 01/19/20 12:30 VBG Base Excess -1.9 mmol/L (-2-2) 01/19/20 12:30 Sodium 130 mmol/L (136-145) L 01/27/20 06:25 Potassium 5.2 mmol/L (3.5-5.1) H 01/27/20 06:25 Chloride 97 mmol/L (98-107) L 01/27/20 06:25 Carbon Dioxide 23 mmol/L (21-32) 01/27/20 06:25 Anion Gap 11 MMOL/L (8-16) 01/27/20 06:25 BUN 43.2 mg/dL (7-18) H 01/27/20 06:25 Creatinine 1.2 mg/dL (0.55-1.3) 01/27/20 06:25 Est GFR (CKD-EPI)AfAm 51.92 01/27/20 06:25 Est GFR (CKD-EPI)NonAf 44.80 01/27/20 06:25 POC Glucometer 360 UNITS (80-120) 01/27/20 10:07 Random Glucose 343 mg/dL (74-106) H 01/27/20 06:25 Serum Osmolality 281 mosm/kg (278-305) 01/24/20 23:00 Lactic Acid 2.4 mmol/L (0.4-2.0) H* 01/24/20 05:30 Calcium 8.5 mg/dL (8.5-10.1) 01/27/20 06:25 Phosphorus 4.1 mg/dL (2.5-4.9) 01/27/20 06:25 Magnesium 2.8 mg/dL (1.8-2.4) H 01/27/20 06:25 Total Bilirubin 0.4 mg/dL (0.2-1) 01/27/20 06:25 AST 23 U/L (15-37) 01/27/20 06:25 ALT 16 U/L (13-61) 01/27/20 06:25 Alkaline Phosphatase 160 U/L (45-117) H 01/27/20 06:25 Creatine Kinase 203 U/L (26-192) H 01/27/20 06:25 Creatine Kinase Index 1.6 % (0.0-5.0) 01/27/20 06:25 CK-MB (CK-2) 3.4 ng/mL (0.5-3.6) 01/27/20 06:25 Troponin I < 0.02 ng/ml (0.00-0.05) 01/24/20 20:08 C-Reactive Protein 14.0 MG/DL (0.00-0.3) H 01/21/20 07:02 Total Protein 6.4 g/dl (6.4-8.2) 01/27/20 06:25 Albumin 2.2 g/dl (3.4-5.0) L 01/27/20 06:25 Urine Color Yellow 01/24/20 23:59 Urine Appearance Turbid 01/24/20 23:59 Urine pH 5.0 (5.0-8.0) 01/24/20 23:59 Ur Specific [place] 1.018 (1.010-1.035) 01/24/20 23:59 Urine Protein 1+ (NEGATIVE) H 01/24/20 23:59 Urine Glucose (UA) Negative (NEGATIVE) 01/24/20 23:59 Urine Ketones Trace (NEGATIVE) H 01/24/20 23:59 Urine Blood Negative (NEGATIVE) 01/24/20 23:59 Urine Nitrite Negative (NEGATIVE) 01/24/20 23:59 Urine Bilirubin Negative (NEGATIVE) 01/24/20 23:59 Urine Urobilinogen 0.2 mg/dL (0.2-1.0) 01/24/20 23:59 Ur Leukocyte Esterase 2+ (NEGATIVE) H 01/24/20 23:59 Urine WBC (Auto) 124 /uL (0-25.8) 01/24/20 23:59 Urine RBC (Auto) 13 /uL (0-23.9) 01/24/20 23:59 Urine Casts (Auto) 10 /uL (0-3.1) 01/24/20 23:59 U Pathogenic Cast Auto None seen /lpf (NEGATIVE) 01/24/20 23:59 U Epithel Cells (Auto) >36 /uL (0-25.1) 01/24/20 23:59 Urine Crystals (Auto) None seen /hpf 01/24/20 23:59 Urine Bacteria (Auto) 98 /uL (0-1359) 01/24/20 23:59 Urine Yeast (Auto) None seen (NEGATIVE) 01/24/20 23:59 Urine Osmolality 268 mosm/kg (300-900) L 01/24/20 23:59 Ur Random Sodium 23 MMOL/L (40-220) L 01/25/20 00:00 Ur Random Potassium 34.0 MMOL/L (25-125) 01/25/20 00:00 Ur Random Chloride 29 MMOL/L (110-250) L 01/25/20 00:00 Vancomycin Pre-Dose 37.4 ug/ml (5-10) H* 01/24/20 20:08 COVID-19 (MATA) Not detected (Not Detected) 01/19/20 23:40 Blood Type O POSITIVE 01/19/20 17:30 Antibody Screen Negative 01/19/20 17:30 Echo: Report Reviewed ( Moderately reduced EF, Moderate MR (this admission); 2018 50-55% with mild MR) tele: afib, rvr at times when agitated Imaging - Results X-ray: Image Reviewed, no sig chf est cct 35 mins Assessment/Plan IMP: Epidural abscess, wound infection Acute renal failure Hyponatremia Acute on chronic systolic CHF, with what appears to be new LV dysfx from 2018 Moderate MR Prolonged QT PAF HTN 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 REC: abd pain, epidural abscess: - manage per surgery, ID acute renal failure: -Suspect ATN due to periods of intermittent hypotension -Renal following -cr improved -pressors off now -Avoid nephrotoxins -renally dose meds, adjusted Xarelto Hypotension: -pressors now off, bp improved -Etiology unclear: ?volume depletion, ? sepsis UTI, bacteremia: - manage per primary, ID chronic systolic CHF, nonischemic cardiomyopathy, moderate MR: -known nonisch CMP with normal coronaries on cath x 2 -EF has fluctuated 35-55% over the years, likely in relation to severity of untreated NICHOLE, vs ? diabetic (uncontrolled glycemic status, does not f/u with PMD despite repeatedly advised to do so) -EF moderately reduced, last echo here EF 35-40% -does not appear vol overloaded now -coreg resumed -in setting of hypotension, holding torsemide, and entresto for now PAF: -Cont Xarelto, dose adjust for GFR -rvr at times now, likely due to agitation. coreg resumed. monitor on tele. DVT/PE with history of filter: -cont with AC NICHOLE: -not using CPAP
--- NOTE | 2020-01-27 12:30 | PN ---
Teaching Attending Note Name of Resident: Sb Garcia ATTENDING PHYSICIAN STATEMENT I saw and evaluated the patient. I reviewed the resident's note and discussed the case with the resident. I agree with the resident's findings and plan as documented. SUBJECTIVE: Patient seen and examined in the ICU. Awake and alert but mildly confused and agitated. Emotional. Pulled out her TLC. Hemodynamics are stable off pressors. Denies CP or SOB. Intake & Output 01/24/20 01/25/20 01/26/20 01/27/20 23:59 23:59 23:59 23:59 Intake Total 1680 1576.6 2076 600 Output Total 50 617 1010 1200 Balance 1630 959.6 1066 -600 Weight 187 lb 14.4 oz 187 lb 14.4 oz Last Vital Signs Temp Pulse Resp BP Pulse Ox 98 F 142 H 20 94/57 L 98 01/27/20 12:00 01/27/20 12:00 01/27/20 12:00 01/27/20 12:00 01/27/20 10:00 Active Medications Alprazolam (Xanax) 1 mg PO Q12H PRN PRN Reason: ANXIETY Last Admin: 01/27/20 10:11 Dose: 1 mg Documented by: Baclofen (Lioresal -) 10 mg PO Q8H PRN PRN Reason: MUSCLE SPASMS Last Admin: 01/27/20 09:05 Dose: 10 mg Documented by: Carvedilol (Coreg -) 12.5 mg PO BID [facility] Last Admin: 01/27/20 09:05 Dose: 12.5 mg Documented by: Chlorhexidine Gluconate (Hibiclens For Decolonization -) 1 applic TP HS [facility] Last Admin: 01/26/20 21:02 Dose: 1 applic Documented by: Cyanocobalamin (Vitamin B12 -) 1,000 mcg PO DAILY [facility] Last Admin: 01/27/20 09:04 Dose: 1,000 mcg Documented by: Docusate Sodium (Colace -) 100 mg PO Q8H PRN PRN Reason: CONSTIPATION Hydrocortisone (Hytone 1% Cream -) 1 applic TP DAILY PRN PRN Reason: FOR ITCHING Last Admin: 01/26/20 14:22 Dose: 1 applic Documented by: Norepinephrine Bitartrate 8, (000 mcg/ Dextrose) 500 mls @ 9.588 mls/hr IV ASDIR [facility]; Protocol Last Admin: 01/26/20 13:20 Dose: Not Given Documented by: Meropenem 1 gm/ Dextrose 100 mls @ 200 mls/hr IVPB Q12H [facility] Last Admin: 01/27/20 02:22 Dose: 200 mls/hr Documented by: Vasopressin 40 units/ Sodium (Chloride) 100 mls @ 5 mls/hr IVPB ASDIR [facility]; Protocol Last Titration: 01/25/20 12:17 Dose: 0 units/hr, 0 mls/hr Documented by: Daptomycin 500 mg/ Sodium (Chloride) 50 mls @ 100 mls/hr IVPB Q48H [facility]; Protocol Last Admin: 01/26/20 15:47 Dose: 100 mls/hr Documented by: Sodium Chloride (Normal Saline -) 1,000 mls @ 50 mls/hr IV ASDIR [facility] Stop: 01/31/20 14:01 Last Admin: 01/26/20 13:22 Dose: 50 mls/hr Documented by: Insulin Aspart (Novolog Vial Sliding Scale -) [facility]; Protocol Last Admin: 01/27/20 10:12 Dose: 10 units Documented by: Lidocaine (Lidoderm Patch -) 1 patch TP DAILY [facility] Last Admin: 01/27/20 09:04 Dose: 1 patch Documented by: Miscellaneous (Lidoderm Patch Removal) 1 each MC DAILY@2200 [facility] Last Admin: 01/26/20 21:02 Dose: 1 each Documented by: Mupirocin (Bactroban Ointment (For Decolonization) -) 1 applic NS BID [facility] Stop: 01/30/20 01:59 Last Admin: 01/27/20 09:05 Dose: 1 applic Documented by: Oxycodone HCl (Roxicodone -) 10 mg PO Q6H PRN PRN Reason: PAIN LEVEL 6-10 Last Admin: 01/26/20 21:01 Dose: 10 mg Documented by: Pramipexole Dihydrochloride (Mirapex -) 0.25 mg PO BID [facility] Last Admin: 01/27/20 09:06 Dose: 0.25 mg Documented by: Rivaroxaban (Xarelto) 15 mg PO DAILY@1800 [facility] Last Admin: 01/26/20 17:26 Dose: 15 mg Documented by: GENERAL: Awake and alert, agitated HEENT: dry mucous membranes NECK/BACK: full ROM, neck supple CARDIOVASCULAR: irregularly irregular LUNGS/RESPIRATORY: diminished at the bases GI/ABDOMEN: soft, normoactive BS, soft, no ttp : no CVA tenderness MSK/EXTREMITIES: no acute deformity SKIN: warm and dry, no pallor, no jaundice, no rash NEUROLOGICAL: Non-focal Laboratory Results - last 24 hr 01/26/20 01/26/20 01/27/20 16:36 22:14 06:25 WBC 5.4 RBC 4.44 Hgb 12.0 Hct 37.6 D MCV 84.7 MCH 27.1 MCHC 32.0 RDW 18.5 H Plt Count 317 MPV 8.0 Absolute Neuts (auto) 4.4 Neutrophils % 81.5 Lymphocytes % 15.5 D Monocytes % 2.4 L Eosinophils % 0.2 D Basophils % 0.4 Nucleated RBC % 0 Sodium Potassium Chloride Carbon Dioxide Anion Gap BUN Creatinine Est GFR (CKD-EPI)AfAm Est GFR (CKD-EPI)NonAf POC Glucometer 151 175 Random Glucose Calcium Phosphorus Magnesium Total Bilirubin AST ALT Alkaline Phosphatase Creatine Kinase Creatine Kinase Index CK-MB (CK-2) Total Protein Albumin 01/27/20 01/27/20 01/27/20 06:25 06:25 06:34 WBC RBC Hgb Hct MCV MCH MCHC RDW Plt Count MPV Absolute Neuts (auto) Neutrophils % Lymphocytes % Monocytes % Eosinophils % Basophils % Nucleated RBC % Sodium 130 L Potassium 5.2 H Chloride 97 L Carbon Dioxide 23 Anion Gap 11 BUN 43.2 H Creatinine 1.2 Est GFR (CKD-EPI)AfAm 51.92 Est GFR (CKD-EPI)NonAf 44.80 POC Glucometer 310 Random Glucose 343 H Calcium 8.5 Phosphorus 4.1 Magnesium 2.8 H Total Bilirubin 0.4 AST 23 ALT 16 Alkaline Phosphatase 160 H Creatine Kinase 203 H Creatine Kinase Index 1.6 CK-MB (CK-2) 3.4 Total Protein 6.4 Albumin 2.2 L 01/27/20 10:07 WBC RBC Hgb Hct MCV MCH MCHC RDW Plt Count MPV Absolute Neuts (auto) Neutrophils % Lymphocytes % Monocytes % Eosinophils % Basophils % Nucleated RBC % Sodium Potassium Chloride Carbon Dioxide Anion Gap BUN Creatinine Est GFR (CKD-EPI)AfAm Est GFR (CKD-EPI)NonAf POC Glucometer 360 Random Glucose Calcium Phosphorus Magnesium Total Bilirubin AST ALT Alkaline Phosphatase Creatine Kinase Creatine Kinase Index CK-MB (CK-2) Total Protein Albumin ASSESSMENT / PLAN: Resolving Septic Shock due to soft tissue infection. CHF (EF 35-40%) RA DM 2 HTN Hx DVT/PE AFib on Xarelto Non-ischemic cardiomyopathy History of multiple spine surgeries S/P L4/5 laminectomy L5/S1 seroma with recent epidural abscess drainage s/p I & D S/P complex wound closure and wound vac placement 11/26 Hyponatremia At this time no need for central access Follow I & O Trial of Xanax Frequent reorientation PO as tolerated ABX per ID AC with Xarelto Glycemic control Orthopedic follow up 4W / [address] Hernandez
--- NOTE | 2020-01-27 12:43 | EKG ---
Test Reason : Blood Pressure : / mmHG Vent. Rate : 150 BPM Atrial Rate : 300 BPM P-R Int : 000 ms QRS Dur : 082 ms QT Int : 338 ms P-R-T Axes : 230 007 252 degrees QTc Int : 534 ms ATRIAL FLUTTER WITH 2:1 A-V CONDUCTION MARKED ST ABNORMALITY, POSSIBLE INFERIOR SUBENDOCARDIAL INJURY ABNORMAL ECG WHEN COMPARED WITH ECG OF 24-JAN-2020 23:43, ST NOW DEPRESSED IN INFERIOR LEADS ST NOW DEPRESSED IN LATERAL LEADS INVERTED T WAVES HAVE REPLACED NONSPECIFIC T WAVE ABNORMALITY IN INFERIOR LEADS T WAVE AMPLITUDE HAS INCREASED IN ANTERIOR LEADS T WAVE INVERSION NOW EVIDENT IN LATERAL LEADS Confirmed by MD Alexy, Luis ([id number]) on 01/27/2020 12:43:25 PM Referred By: Alysia BARBER Confirmed By:Luis Tracey MD
--- NOTE | 2020-01-27 12:45 | PN ---
Progress Note (short form) - Note Progress Note: covering dr quiñones Problems 1. ELIZABETH 2. sepsis 3. shock 4. CHF 5. hx of htn 6. epidural abscess 7. ut 8. a-fib 9. hyponatremia Active Medications Alprazolam (Xanax) 1 mg PO Q12H PRN PRN Reason: ANXIETY Last Admin: 01/27/20 10:11 Dose: 1 mg Documented by: Baclofen (Lioresal -) 10 mg PO Q8H PRN PRN Reason: MUSCLE SPASMS Last Admin: 01/27/20 09:05 Dose: 10 mg Documented by: Carvedilol (Coreg -) 12.5 mg PO BID [facility] Last Admin: 01/27/20 09:05 Dose: 12.5 mg Documented by: Chlorhexidine Gluconate (Hibiclens For Decolonization -) 1 applic TP HS [facility] Last Admin: 01/26/20 21:02 Dose: 1 applic Documented by: Cyanocobalamin (Vitamin B12 -) 1,000 mcg PO DAILY [facility] Last Admin: 01/27/20 09:04 Dose: 1,000 mcg Documented by: Docusate Sodium (Colace -) 100 mg PO Q8H PRN PRN Reason: CONSTIPATION Hydrocortisone (Hytone 1% Cream -) 1 applic TP DAILY PRN PRN Reason: FOR ITCHING Last Admin: 01/26/20 14:22 Dose: 1 applic Documented by: Norepinephrine Bitartrate 8, (000 mcg/ Dextrose) 500 mls @ 9.588 mls/hr IV ASDIR [facility]; Protocol Last Admin: 01/26/20 13:20 Dose: Not Given Documented by: Meropenem 1 gm/ Dextrose 100 mls @ 200 mls/hr IVPB Q12H [facility] Last Admin: 01/27/20 02:22 Dose: 200 mls/hr Documented by: Vasopressin 40 units/ Sodium (Chloride) 100 mls @ 5 mls/hr IVPB ASDIR [facility]; Protocol Last Titration: 01/25/20 12:17 Dose: 0 units/hr, 0 mls/hr Documented by: Daptomycin 500 mg/ Sodium (Chloride) 50 mls @ 100 mls/hr IVPB Q48H [facility]; Protocol Last Admin: 01/26/20 15:47 Dose: 100 mls/hr Documented by: Sodium Chloride (Normal Saline -) 1,000 mls @ 50 mls/hr IV ASDIR [facility] Stop: 01/31/20 14:01 Last Admin: 01/26/20 13:22 Dose: 50 mls/hr Documented by: Insulin Aspart (Novolog Vial Sliding Scale -) 1 vial SQ [facility]; Protocol Last Admin: 01/27/20 10:12 Dose: 10 units Documented by: Lidocaine (Lidoderm Patch -) 1 patch TP DAILY [facility] Last Admin: 01/27/20 09:04 Dose: 1 patch Documented by: Miscellaneous (Lidoderm Patch Removal) 1 each MC DAILY@2200 [facility] Last Admin: 01/26/20 21:02 Dose: 1 each Documented by: Mupirocin (Bactroban Ointment (For Decolonization) -) 1 applic NS BID [facility] Stop: 01/30/20 01:59 Last Admin: 01/27/20 09:05 Dose: 1 applic Documented by: Oxycodone HCl (Roxicodone -) 10 mg PO Q6H PRN PRN Reason: PAIN LEVEL 6-10 Last Admin: 01/26/20 21:01 Dose: 10 mg Documented by: Pramipexole Dihydrochloride (Mirapex -) 0.25 mg PO BID [facility] Last Admin: 01/27/20 09:06 Dose: 0.25 mg Documented by: Rivaroxaban (Xarelto) 15 mg PO DAILY@1800 [facility] Last Admin: 01/26/20 17:26 Dose: 15 mg Documented by: Last Vital Signs Temp Pulse Resp BP Pulse Ox 98 F 142 H 20 94/57 L 98 01/27/20 12:00 01/27/20 12:00 01/27/20 12:00 01/27/20 12:00 01/27/20 10:00 CBC, BMP 01/27/20 06:25 01/27/20 06:25 CBC, BMP 01/26/20 09:45 01/25/20 05:30 Sodium 126 L Potassium 4.2 Chloride 89 L Carbon Dioxide 23 Anion Gap 14 BUN 52.3 H Creatinine 3.2 H Est GFR (CKD-EPI)AfAm 15.86 Est GFR (CKD-EPI)NonAf 13.69 IMP ELIZABETH resolving Hyponatremia resolving SEPSIS LOW Bp Plan continue julien yepez IV support
--- NOTE | 2020-01-27 12:46 | PN ---
Physical Exam: SUBJECTIVE: Patient seen and examined at bed side ,in ICU , agitated and pulling out her line , she can be monitored on tele . sinus tchy given xanax 1 mg Q 12 Denies CP or SOB. OBJECTIVE: Vital Signs Period Temp Pulse Resp BP Sys/Marcelo Pulse Ox Last 24 Hr 97.9 F-98.2 F 103-146 18-35 93-145/57-117 98-98 GENERAL: Awake and alert, agitated HEENT: dry mucous membranes NECK/BACK: full ROM, neck supple CARDIOVASCULAR: irregularly irregular LUNGS/RESPIRATORY: diminished at the bases GI/ABDOMEN: soft, normoactive BS, soft, no ttp : no CVA tenderness MSK/EXTREMITIES: no acute deformity SKIN: warm and dry, no pallor, no jaundice, no rash NEUROLOGICAL: Non-focal Laboratory Results - last 24 hr 01/26/20 01/26/20 01/27/20 16:36 22:14 06:25 WBC 5.4 RBC 4.44 Hgb 12.0 Hct 37.6 D MCV 84.7 MCH 27.1 MCHC 32.0 RDW 18.5 H Plt Count 317 MPV 8.0 Absolute Neuts (auto) 4.4 Neutrophils % 81.5 Lymphocytes % 15.5 D Monocytes % 2.4 L Eosinophils % 0.2 D Basophils % 0.4 Nucleated RBC % 0 Sodium Potassium Chloride Carbon Dioxide Anion Gap BUN Creatinine Est GFR (CKD-EPI)AfAm Est GFR (CKD-EPI)NonAf POC Glucometer 151 175 Random Glucose Calcium Phosphorus Magnesium Total Bilirubin AST ALT Alkaline Phosphatase Creatine Kinase Creatine Kinase Index CK-MB (CK-2) Total Protein Albumin 01/27/20 01/27/20 01/27/20 06:25 06:25 06:34 WBC RBC Hgb Hct MCV MCH MCHC RDW Plt Count MPV Absolute Neuts (auto) Neutrophils % Lymphocytes % Monocytes % Eosinophils % Basophils % Nucleated RBC % Sodium 130 L Potassium 5.2 H Chloride 97 L Carbon Dioxide 23 Anion Gap 11 BUN 43.2 H Creatinine 1.2 Est GFR (CKD-EPI)AfAm 51.92 Est GFR (CKD-EPI)NonAf 44.80 POC Glucometer 310 Random Glucose 343 H Calcium 8.5 Phosphorus 4.1 Magnesium 2.8 H Total Bilirubin 0.4 AST 23 ALT 16 Alkaline Phosphatase 160 H Creatine Kinase 203 H Creatine Kinase Index 1.6 CK-MB (CK-2) 3.4 Total Protein 6.4 Albumin 2.2 L 01/27/20 10:07 WBC RBC Hgb Hct MCV MCH MCHC RDW Plt Count MPV Absolute Neuts (auto) Neutrophils % Lymphocytes % Monocytes % Eosinophils % Basophils % Nucleated RBC % Sodium Potassium Chloride Carbon Dioxide Anion Gap BUN Creatinine Est GFR (CKD-EPI)AfAm Est GFR (CKD-EPI)NonAf POC Glucometer 360 Random Glucose Calcium Phosphorus Magnesium Total Bilirubin AST ALT Alkaline Phosphatase Creatine Kinase Creatine Kinase Index CK-MB (CK-2) Total Protein Albumin Active Medications Generic Name Dose Route Start Last Admin Trade Name Freq PRN Reason Stop Dose Admin Alprazolam 1 mg 01/27/20 10:03 01/27/20 10:11 Xanax PO 1 mg Q12H PRN Administration ANXIETY Baclofen 10 mg 01/25/20 16:39 01/27/20 09:05 Lioresal - PO 10 mg Q8H PRN Administration MUSCLE SPASMS Carvedilol 12.5 mg 01/27/20 01:43 01/27/20 09:05 Coreg - PO 12.5 mg BID [facility] Administration Chlorhexidine Gluconate 1 applic 01/25/20 22:00 01/26/20 21:02 Hibiclens For Decolonization - TP 1 applic HS [facility] Administration Cyanocobalamin 1,000 mcg 01/25/20 10:00 01/27/20 09:04 Vitamin B12 - PO 1,000 mcg DAILY [facility] Administration Docusate Sodium 100 mg 01/25/20 08:49 Colace - PO Q8H PRN CONSTIPATION Hydrocortisone 1 applic 01/25/20 08:49 01/26/20 14:22 Hytone 1% Cream - TP 1 applic DAILY PRN Administration FOR ITCHING Norepinephrine Bitartrate 8, 500 mls @ 9.588 mls/hr 01/25/20 02:30 01/26/20 13:20 000 mcg/ Dextrose IV Not Given ASDIR [facility] Protocol 0.03 MCG/KG/MIN Meropenem 1 gm/ Dextrose 100 mls @ 200 mls/hr 01/25/20 15:00 01/27/20 02:22 IVPB 200 mls/hr Q12H [facility] Administration Vasopressin 40 units/ Sodium 100 mls @ 5 mls/hr 01/25/20 08:49 01/25/20 12:17 Chloride IVPB 0 units/hr ASDIR [facility] 0 mls/hr Titration Protocol 2 UNITS/HR Daptomycin 500 mg/ Sodium 50 mls @ 100 mls/hr 01/26/20 15:30 01/26/20 15:47 Chloride IVPB 100 mls/hr Q48H [facility] Administration Protocol Sodium Chloride 1,000 mls @ 50 mls/hr 01/25/20 14:00 01/26/20 13:22 Normal Saline - IV 01/31/20 14:01 50 mls/hr ASDIR [facility] Administration Insulin Aspart 1 vial 01/25/20 22:00 01/27/20 10:12 Novolog Vial Sliding Scale - SQ 10 units ACHS [facility] Administration Protocol Lidocaine 1 patch 01/25/20 10:00 01/27/20 09:04 Lidoderm Patch - TP 1 patch DAILY [facility] Administration Miscellaneous 1 each 01/25/20 22:00 01/26/20 21:02 Lidoderm Patch Removal MC 1 each DAILY@2200 [facility] Administration Mupirocin 1 applic 01/25/20 02:00 01/27/20 09:05 Bactroban Ointment (For Decolonization) - NS 01/30/20 01:59 1 applic BID [facility] Administration Oxycodone HCl 10 mg 01/25/20 04:44 01/26/20 21:01 Roxicodone - PO 10 mg Q6H PRN Administration PAIN LEVEL 6-10 Pramipexole Dihydrochloride 0.25 mg 01/25/20 10:00 01/27/20 09:06 Mirapex - PO 0.25 mg BID [facility] Administration Rivaroxaban 15 mg 01/25/20 18:00 01/26/20 17:26 Xarelto PO 15 mg DAILY@1800 [facility] Administration CBC, BMP 01/27/20 06:25 01/27/20 06:25 ASSESSMENT/PLAN: Resolving Septic Shock due to soft tissue infection. CHF (EF 35-40%) RA DM 2 HTN Hx DVT/PE AFib on Xarelto Non-ischemic cardiomyopathy History of multiple spine surgeries S/P L4/5 laminectomy L5/S1 seroma with recent epidural abscess drainage s/p I & D S/P complex wound closure and wound vac placement 11/26 Hyponatremia At this time no need for central access Follow I & O Trial of Xanax Frequent reorientation PO as tolerated ABX per ID AC with Xarelto Glycemic control Orthopedic follow up 4W / 4 S monitoring Visit type - Emergency Visit Emergency Visit: Yes ED Registration Date: 01/19/20 Care time: The patient presented to the Emergency Department on the above date and was hospitalized for further evaluation of their emergent condition. - New Patient This patient is new to me today: Yes Date on this admission: 01/27/20 - Critical Care Critical Care patient: Yes Total Critical Care Time (in minutes): 45 Critical Care Statement: The care of this patient involved high complexity decis ion making to prevent further life threatening deterioration of the patient's condition and/or to evaluate & treat vital organ system(s) failure or risk of failure. ATTENDING PHYSICIAN STATEMENT I saw and evaluated the patient. I reviewed the resident's note and discussed the case with the resident. I agree with the resident's findings and plan as documented. SUBJECTIVE: OBJECTIVE: ASSESSMENT AND PLAN:
[2020-01-27] MEDS: SODIUM CHLORIDE 1,000 ML IV SCH ×2 (16:50→19:00)
[2020-01-27] MEDS: RIVAROXABAN 15 MG TABLET PO SCH (18:03)
--- NOTE | 2020-01-27 18:38 | PN ---
Progress Note, Physician History of Present Illness: Pt is confused today, trying to get out of bed. Otherwise afebrile, without distress. - Current Medication List Current Medications: Active Medications Alprazolam (Xanax) 1 mg PO Q12H PRN PRN Reason: ANXIETY Last Admin: 01/27/20 10:11 Dose: 1 mg Documented by: Baclofen (Lioresal -) 10 mg PO Q8H PRN PRN Reason: MUSCLE SPASMS Last Admin: 01/27/20 09:05 Dose: 10 mg Documented by: Carvedilol (Coreg -) 12.5 mg PO BID LISA Last Admin: 01/27/20 09:05 Dose: 12.5 mg Documented by: Chlorhexidine Gluconate (Hibiclens For Decolonization -) 1 applic TP HS LISA Last Admin: 01/26/20 21:02 Dose: 1 applic Documented by: Cyanocobalamin (Vitamin B12 -) 1,000 mcg PO DAILY LISA Last Admin: 01/27/20 09:04 Dose: 1,000 mcg Documented by: Docusate Sodium (Colace -) 100 mg PO Q8H PRN PRN Reason: CONSTIPATION Hydrocortisone (Hytone 1% Cream -) 1 applic TP DAILY PRN PRN Reason: FOR ITCHING Last Admin: 01/26/20 14:22 Dose: 1 applic Documented by: Norepinephrine Bitartrate 8, (000 mcg/ Dextrose) 500 mls @ 9.588 mls/hr IV ASDIR LISA; Protocol Last Admin: 01/26/20 13:20 Dose: Not Given Documented by: Meropenem 1 gm/ Dextrose 100 mls @ 200 mls/hr IVPB Q12H LISA Last Admin: 01/27/20 16:50 Dose: 200 mls/hr Documented by: Vasopressin 40 units/ Sodium (Chloride) 100 mls @ 5 mls/hr IVPB ASDIR LISA; Protocol Last Titration: 01/25/20 12:17 Dose: 0 units/hr, 0 mls/hr Documented by: Daptomycin 500 mg/ Sodium (Chloride) 50 mls @ 100 mls/hr IVPB Q48H LISA; Protocol Last Admin: 01/26/20 15:47 Dose: 100 mls/hr Documented by: Sodium Chloride (Normal Saline -) 1,000 mls @ 50 mls/hr IV ASDIR LISA Stop: 01/31/20 14:01 Last Admin: 01/27/20 16:50 Dose: 50 mls/hr Documented by: Insulin Aspart (Novolog Vial Sliding Scale -) 1 vial SQ ACHS [facility]; Protocol Last Admin: 01/27/20 18:04 Dose: 4 units Documented by: Lidocaine (Lidoderm Patch -) 1 patch TP DAILY [facility] Last Admin: 01/27/20 09:04 Dose: 1 patch Documented by: Miscellaneous (Lidoderm Patch Removal) 1 each MC DAILY@2200 [facility] Last Admin: 01/26/20 21:02 Dose: 1 each Documented by: Mupirocin (Bactroban Ointment (For Decolonization) -) 1 applic NS BID [facility] Stop: 01/30/20 01:59 Last Admin: 01/27/20 09:05 Dose: 1 applic Documented by: Oxycodone HCl (Roxicodone -) 10 mg PO Q6H PRN PRN Reason: PAIN LEVEL 6-10 Last Admin: 01/26/20 21:01 Dose: 10 mg Documented by: Pramipexole Dihydrochloride (Mirapex -) 0.25 mg PO BID [facility] Last Admin: 01/27/20 09:06 Dose: 0.25 mg Documented by: Rivaroxaban (Xarelto) 15 mg PO DAILY@1800 [facility] Last Admin: 01/27/20 18:03 Dose: 15 mg Documented by: - Objective Vital Signs: Vital Signs Temperature 97.7 F 01/27/20 17:06 Pulse Rate 125 H 01/27/20 17:06 Respiratory Rate 18 01/27/20 17:06 Blood Pressure 95/58 L 01/27/20 17:06 O2 Sat by Pulse Oximetry (%) 98 01/27/20 10:00 Constitutional: Yes: No Distress Cardiovascular: Yes: Pulse Irregular Respiratory: Yes: Regular Gastrointestinal: Yes: Normal Bowel Sounds, Soft Genitourinary: Yes: WNL Extremities: Yes: WNL Wound/Incision: Yes: Dressing Dry and Intact Neurological: Yes: Alert, Confusion Labs: CBC, BMP 01/27/20 06:25 01/27/20 06:25 INR, PTT INR 1.57 (0.83-1.09) H 01/20/20 06:45 Laboratory Last Values WBC 5.4 K/mm3 (4.0-10.0) 01/27/20 06:25 Corrected WBC (auto) Cancelled 01/22/20 06:25 RBC 4.44 M/mm3 (3.60-5.2) 01/27/20 06:25 Hgb 12.0 GM/dL (10.7-15.3) 01/27/20 06:25 Hct 37.6 % (32.4-45.2) D 01/27/20 06:25 MCV 84.7 fl (80-96) 01/27/20 06:25 MCH 27.1 pg (25.7-33.7) 01/27/20 06:25 MCHC 32.0 g/dl (32.0-36.0) 01/27/20 06:25 RDW 18.5 % (11.6-15.6) H 01/27/20 06:25 Plt Count 317 K/MM3 (134-434) 01/27/20 06:25 MPV 8.0 fl (7.5-11.1) 01/27/20 06:25 Absolute Neuts (auto) 4.4 K/mm3 (1.5-8.0) 01/27/20 06:25 Neutrophils % 81.5 % (42.8-82.8) 01/27/20 06:25 Neutrophils % (Manual) 66.3 % (42.8-82.8) 01/23/20 07:00 Band Neutrophils % 3.2 % 01/23/20 07:00 Lymphocytes % 15.5 % (8-40) D 01/27/20 06:25 Lymphocytes % (Manual) 15.8 % (8-40) 01/23/20 07:00 Monocytes % 2.4 % (3.8-10.2) L 01/27/20 06:25 Monocytes % (Manual) 11 % (3.8-10.2) H 01/23/20 07:00 Eosinophils % 0.2 % (0-4.5) D 01/27/20 06:25 Eosinophils % (Manual) 4.2 % (0-4.5) 01/23/20 07:00 Basophils % 0.4 % (0-2.0) 01/27/20 06:25 Basophils % (Manual) 0.0 % (0-2.0) 01/23/20 07:00 Myelocytes % (Man) 0 % (0-2) 01/23/20 07:00 Promyelocytes % (Man) 0 % (0-2) 01/23/20 07:00 Blast Cells % (Manual) 0 % (0-0) 01/23/20 07:00 Nucleated RBC % 0 % (0-0) 01/27/20 06:25 Metamyelocytes 0 % (0-2) 01/23/20 07:00 Manual Slide Review Cancelled 01/22/20 06:25 Hypochromia 0 01/23/20 07:00 Platelet Estimate Adequate 01/24/20 20:08 Platelet Comment No clumping noted 01/24/20 20:08 Polychromasia 1+ 01/23/20 07:00 Poikilocytosis 0 01/23/20 07:00 Anisocytosis 1+ 01/23/20 07:00 Microcytosis 1+ 01/23/20 07:00 Macrocytosis 0 01/23/20 07:00 ESR 88 mm/hr (0-30) H 01/21/20 07:04 PT with INR 18.60 SEC (9.7-13.0) H 01/20/20 06:45 INR 1.57 (0.83-1.09) H 01/20/20 06:45 PTT (Actin FS) 38.5 SECONDS (25.2-36.5) H 01/19/20 12:30 VBG pH 7.32 (7.31-7.41) 01/19/20 12:30 POC VBG pCO2 49.5 mmHg (38-52) 01/19/20 12:30 POC VBG pO2 < 49 mmHg (28-48) H 01/19/20 12:30 VBG HCO3 24.6 mmol/L (23-29) 01/19/20 12:30 VBG O2 Sat (Michael) 60.8 % (70-80) L 01/19/20 12:30 VBG Base Excess -1.9 mmol/L (-2-2) 01/19/20 12:30 Sodium 130 mmol/L (136-145) L 01/27/20 06:25 Potassium 5.2 mmol/L (3.5-5.1) H 01/27/20 06:25 Chloride 97 mmol/L (98-107) L 01/27/20 06:25 Carbon Dioxide 23 mmol/L (21-32) 01/27/20 06:25 Anion Gap 11 MMOL/L (8-16) 01/27/20 06:25 BUN 43.2 mg/dL (7-18) H 01/27/20 06:25 Creatinine 1.2 mg/dL (0.55-1.3) 01/27/20 06:25 Est GFR (CKD-EPI)AfAm 51.92 01/27/20 06:25 Est GFR (CKD-EPI)NonAf 44.80 01/27/20 06:25 POC Glucometer 240 UNITS (80-120) 01/27/20 17:04 Random Glucose 343 mg/dL (74-106) H 01/27/20 06:25 Serum Osmolality 281 mosm/kg (278-305) 01/24/20 23:00 Lactic Acid 2.4 mmol/L (0.4-2.0) H* 01/24/20 05:30 Calcium 8.5 mg/dL (8.5-10.1) 01/27/20 06:25 Phosphorus 4.1 mg/dL (2.5-4.9) 01/27/20 06:25 Magnesium 2.8 mg/dL (1.8-2.4) H 01/27/20 06:25 Total Bilirubin 0.4 mg/dL (0.2-1) 01/27/20 06:25 AST 23 U/L (15-37) 01/27/20 06:25 ALT 16 U/L (13-61) 01/27/20 06:25 Alkaline Phosphatase 160 U/L (45-117) H 01/27/20 06:25 Creatine Kinase 203 U/L (26-192) H 01/27/20 06:25 Creatine Kinase Index 1.6 % (0.0-5.0) 01/27/20 06:25 CK-MB (CK-2) 3.4 ng/mL (0.5-3.6) 01/27/20 06:25 Troponin I < 0.02 ng/ml (0.00-0.05) 01/24/20 20:08 C-Reactive Protein 14.0 MG/DL (0.00-0.3) H 01/21/20 07:02 Total Protein 6.4 g/dl (6.4-8.2) 01/27/20 06:25 Albumin 2.2 g/dl (3.4-5.0) L 01/27/20 06:25 Urine Color Yellow 01/24/20 23:59 Urine Appearance Turbid 01/24/20 23:59 Urine pH 5.0 (5.0-8.0) 01/24/20 23:59 Ur Specific Hudson 1.018 (1.010-1.035) 01/24/20 23:59 Urine Protein 1+ (NEGATIVE) H 01/24/20 23:59 Urine Glucose (UA) Negative (NEGATIVE) 01/24/20 23:59 Urine Ketones Trace (NEGATIVE) H 01/24/20 23:59 Urine Blood Negative (NEGATIVE) 01/24/20 23:59 Urine Nitrite Negative (NEGATIVE) 01/24/20 23:59 Urine Bilirubin Negative (NEGATIVE) 01/24/20 23:59 Urine Urobilinogen 0.2 mg/dL (0.2-1.0) 01/24/20 23:59 Ur Leukocyte Esterase 2+ (NEGATIVE) H 01/24/20 23:59 Urine WBC (Auto) 124 /uL (0-25.8) 01/24/20 23:59 Urine RBC (Auto) 13 /uL (0-23.9) 01/24/20 23:59 Urine Casts (Auto) 10 /uL (0-3.1) 01/24/20 23:59 U Pathogenic Cast Auto None seen /lpf (NEGATIVE) 01/24/20 23:59 U Epithel Cells (Auto) >36 /uL (0-25.1) 01/24/20 23:59 Urine Crystals (Auto) None seen /hpf 01/24/20 23:59 Urine Bacteria (Auto) 98 /uL (0-1359) 01/24/20 23:59 Urine Yeast (Auto) None seen (NEGATIVE) 01/24/20 23:59 Urine Osmolality 268 mosm/kg (300-900) L 01/24/20 23:59 Ur Random Sodium 23 MMOL/L (40-220) L 01/25/20 00:00 Ur Random Potassium 34.0 MMOL/L (25-125) 01/25/20 00:00 Ur Random Chloride 29 MMOL/L (110-250) L 01/25/20 00:00 Vancomycin Pre-Dose 37.4 ug/ml (5-10) H* 01/24/20 20:08 COVID-19 (MATA) Not detected (Not Detected) 01/19/20 23:40 Blood Type O POSITIVE 01/19/20 17:30 Antibody Screen Negative 01/19/20 17:30 Microbiology 01/22/20 13:40 Blood - Peripheral Venous Blood Culture - Final NO GROWTH AFTER 5 DAYS INCUBATION 01/22/20 13:50 Blood - Peripheral Venous Blood Culture - Final NO GROWTH AFTER 5 DAYS INCUBATION 01/24/20 05:30 Blood - Peripheral Venous Blood Culture - Preliminary NO GROWTH OBTAINED AFTER 48 HOURS, INCUBATION TO CONTINUE FOR 3 DAYS. 01/24/20 05:30 Blood - Peripheral Venous Blood Culture - Preliminary NO GROWTH OBTAINED AFTER 48 HOURS, INCUBATION TO CONTINUE FOR 3 DAYS. 01/21/20 16:45 Body Fluid - Other Gram Stain - Final 01/21/20 16:45 Body Fluid - Other Body Fluid Culture - Final Staphylococcus Aureus Escherichia Coli Esbl Curing Oven Tender Pseudo Fluorescens/Putida Acinetobacter Lwoffii Serratia Marcescens Proteus Mirabilis Enterococcus Faecalis 01/21/20 16:45 Body Fluid - Other Anaerobic Culture - Final Prevotella Bivia 01/19/20 12:30 Blood - Peripheral Venous Blood Culture - Final Burkholderia Cepacia 01/21/20 16:40 Drainage Gram Stain - Final 01/21/20 16:40 Drainage Body Fluid Culture - Final Lactose Fermenting Neg Bacilli Group D Strep Or Entero Coccus Proteus Species Diphtheroid/Corynebacterium 01/21/20 16:40 Drainage Anaerobic Culture - Final 01/19/20 12:30 Blood - Peripheral Venous Blood Culture - Final NO GROWTH AFTER 5 DAYS INCUBATION 01/21/20 12:15 Urine - Urine Clean Catch Urine Culture - Final NO GROWTH OBTAINED 01/19/20 18:14 Urine - Urine Clean Catch Urine Culture - Final Contaminated: Please Repeat Problem List - Problems (1) UTI (urinary tract infection) Code(s): N39.0 - URINARY TRACT INFECTION, SITE NOT SPECIFIED (2) Epidural abscess Code(s): G06.2 - EXTRADURAL AND SUBDURAL ABSCESS, UNSPECIFIED (3) Chronic systolic heart failure Code(s): I50.22 - CHRONIC SYSTOLIC (CONGESTIVE) HEART FAILURE (4) Diabetes Code(s): E11.9 - TYPE 2 DIABETES MELLITUS WITHOUT COMPLICATIONS Qualifiers: Diabetes mellitus type: type 2 (5) History of DVT (deep vein thrombosis) Code(s): Z86.718 - PERSONAL HISTORY OF OTHER VENOUS THROMBOSIS AND EMBOLISM (6) Hypertension Code(s): I10 - ESSENTIAL (PRIMARY) HYPERTENSION (7) Non-ischemic cardiomyopathy Code(s): I42.9 - CARDIOMYOPATHY, UNSPECIFIED (8) Obstructive sleep apnea Code(s): G47.33 - OBSTRUCTIVE SLEEP APNEA (ADULT) (PEDIATRIC) Assessment/Plan Septic shock Bacteremia UTI Polymicrobial Epidural abscess - s/p drainage/DASH s/p laminectomy RA DM CHF Hx of DVT AFIB -- Pt confused today, without distress -- Continue Meropenem/Daptomycin for now -- CK level upper limit of normal, monitor while on Daptomycin -- wbc trended down, remains afebrile -- Orthopedics follow up -- continue monitor vitals cc time: 36 min
[2020-01-27] MEDS ORDERED: BACLOFEN 10 MG TABLET (FP) PO PRN (18:58)
[2020-01-27] MEDS ORDERED: HYDROCORTISONE 1% TOPICAL CREAM 30 GM TUBE TP PRN (18:58)
[2020-01-27] MEDS ORDERED: LIDOCAINE PATCH REMOVAL MC ONE (18:58)
[2020-01-27] MEDS ORDERED: DOCUSATE SODIUM 100 MG CAPSULE (FP) PO PRN (18:58)
[2020-01-27] MEDS: oxyCODONE HCL 5 MG TABLET PO PRN (20:17)
[2020-01-27] MEDS: ALPRAZolam 1 MG TABLET PO PRN (21:15)
[2020-01-27] MEDS: LIDOCAINE PATCH REMOVAL MC SCH (21:16)
[2020-01-27] MEDS ORDERED: LIDOCAINE PATCH REMOVAL MC SCH (22:00)
[2020-01-27] MEDS ORDERED: morphine SULFATE 4 MG/ML VIAL IVPUSH ONE (22:21)
[2020-01-28] MEDS: MEROPENEM 1 GM in DEXTROSE 5%-WATER 100 ML IVPB SCH ×2 (03:01→14:23)
[2020-01-28] MEDS: oxyCODONE HCL 5 MG TABLET PO PRN ×2 (05:49→20:00)
[2020-01-28] MEDS: INSULIN SLIDING SCALE (NOVOLOG) 1 VIAL SQ SCH ×4 (06:36→21:47)
--- NOTE | 2020-01-28 07:37 | PN ---
Progress Note (short form) - Note Progress Note: HD#10 OVERNIGHT EVENTS Nothing overnight. Continues to be very confused and disoriented and agitated. Required soft wrist restraints as ordered yesterday. Patient has continued full- body itching, given medications for allergic rxn, appears improved from 2 days ago. Likely abx rxn but very difficult to switch given patient's allergies, ID is aware. Plan for daily family update phone calls in the afternoon. OBJECTIVE Last Vital Signs Temp Pulse Resp BP Pulse Ox 97.8 F 125 H 16 91/56 L 98 01/27/20 23:00 01/28/20 05:00 01/28/20 05:00 01/28/20 05:00 01/27/20 19:38 Intake & Output 01/27/20 01/27/20 01/28/20 11:59 23:59 11:59 Intake Total 600 1110 500 Output Total 1200 150 700 Balance -600 960 -200 Weight 89.84 kg Intake: IV 400 600 350 Normal Saline - 1,000 ml 400 600 350 @ 50 mls/hr IV ASDIR LISA Rx#:[id number] IVPB 100 100 100 Oral 100 410 50 Output: Drainage 0 0 Right Medial Back 0 0 Urine 1200 150 700 Hines 1200 150 700 Other: Voiding Method Indwelling Catheter Indwelling Catheter Bowel Movement No No No # Bowel Movements 3 Weight Measurement Method Built in Bedscale LINES: PIV RFA placed 01/27/20. TUBES: None. DRAINS: Hines, DASH drain SUPPLEMENTAL O2: NC EXAM GENERAL: elderly, alert, nontoxic-appearing, no distress, answers questions appropriately HEENT: PERRLA, EOMI, a bit dry mucous membranes NECK/BACK: no midline ttp, no spinal stepoff or deformity, no hematoma, full ROM, neck supple CARDIOVASCULAR: irregularly irregular but not tachycardic, many PVCs on the monitor, no MGR, strong peripheral pulses, capillary refill 3 seconds, no edema LUNGS/RESPIRATORY: Lungs CTAB without focal area of decreased breath sounds GI/ABDOMEN: symmetric [id number], normoactive BS, soft, no ttp, no midline pulsatile masses : no CVA tenderness MSK/EXTREMITIES: no muscle atrophy, no acute deformity, BLE a bit cool SKIN: scattered excoriations from scratching but skin otherwise warm and dry, no pallor, no jaundice, no obvious rash NEUROLOGICAL: very confused and a bit agitated but GCS 15, CN II-XII grossly intact, 5/5 strength proximally and distally, no facial droop DRIPS: None ANTI-INFECTIVES: Daptomycin, Meropenem AWAITING LABS ordered for 0600 01/27 - patient is a difficult stick and uncooperative. Will inform the 24h team to follow up on labs. CX DATA: BCx taken 01/23 pending with NGTD. ASSESSMENT / PLAN: 74YOF with h/o CHF (EF 35-40%), RA, DM 2, HTN, Hx DVT/PE, a fib (on Xarelto), known non-ischemic cardiomyopathy, multiple spine surgeries, s/p L4/[address] Borjas then L5/S1 seroma with recent epidural abscess drainage s/p I and D, complex wound closure and wound vac placement 11/26-s/p IV abx who presented to ED 01/19/20 for weakness and malaise x4 days. Found with UTI, but septic since yesterday and c/f possibility of DASH drain infection. NEURO/PSYCH: Increased confusion, agitation - likely delirium exacerbated by polypharmacy with valium + oxycodone + Baclofen -Avoid sedating medications during the day and minimize during the night -Melatonin for sleep instead of Benadryl -No Ambien -Baclofen instead of Valium for muscle spasm -Minimize oxycodone - Tylenol first -Frequent re-orientation -Window blinds retracted during the day, down all the way at night -Lights on during the day, off at night -Promote nighttime sleep with minimal noise, maximal comfort -Soft restraints as needed if pulling at lines/drains or scratching causing excoriations ENDOCRINE: h/o type 2 DM -ISS, FSBG TIDAC CV: Chronic AF, h/o CHF with likely exacerbation -Continue home Xarelto -Continue home RESP: No concerns at this time. -Continue to monitor GI: No concerns at this time. -Continue to monitor RENAL/: ELIZABETH likely ATN from hypotension (improved), hyponatremia (improving) -Renal consulting, appreciate recs -Back on gentle IVF when able (needs new PIV) -Avoid NSAIDs HEME: No concerns at this time. -Continue to monitor ID: Sepsis with C/F DASH drain infection, abscess, etc. Much improved. -ID consulting, appreciate recs -F/U BCx taken 01/23 (NGTD so far; BCx taken 01/21 final report without growth) -Continue meropenem and daptomycin (back to non-renal dosing) -Dr. Borjas to see the patient (last note 01/20; calling their office today) MSK: Recent spinal surgery, seroma, epidural abscess drainage, DASH drain placement still indwelling -Spine surgery consulting, last note 01/20 DERM: Full-body itching, likely vancomycin or meropenem or daptomycin, continuing issue. Difficult to select abx given Pt's allergies. -Hydrocortisone topical prn -Famotidine prn -Careful Benadryl and Solu-Medrol (only if severe itching), may consider hydroxizine instead of Benadryl FEN: Hyponatremia, improving -Recheck chemistries today -IVF: None PPX - DVT: Xarelto, SCDs - GI: Diabetic diet CODE STATUS: Full code DISPO PLAN: For transfer to Tele Discussed patient with ICU Attending MD Latoya So MD ICU Consult Service Problem List - Problems (1) Delirium Code(s): R41.0 - DISORIENTATION, UNSPECIFIED
[2020-01-28] MEDS: ALPRAZolam 1 MG TABLET PO PRN (07:55)
[2020-01-28] MEDS ORDERED: PT OWN MED DRAWER 7, Y5N ONE (09:46)
[2020-01-28] MEDS: CYANOCOBALAMIN 1,000 MCG TABLET (FP) PO SCH (09:59)
[2020-01-28] MEDS: LIDOCAINE 5% TOPICAL PATCH TP SCH (09:59)
[2020-01-28] MEDS: PRAMIPEXOLE DIHYDROCHLORIDE 0.25 MG TABLET PO SCH ×2 (09:59→21:47)
[2020-01-28] MEDS: CARVEDILOL 12.5 MG TABLET (FP) PO SCH ×2 (10:04→21:47)
--- NOTE | 2020-01-28 10:38 | PN ---
Progress Note (short form) - Note Progress Note: s: agitated and confused this AM. had same issues overnight. Current Medications Generic Name Dose Route Start Last Admin Trade Name Freq PRN Reason Stop Dose Admin Alprazolam 1 mg 01/27/20 18:58 01/28/20 07:55 Xanax PO 1 mg Q12H PRN Administration ANXIETY Baclofen 10 mg 01/27/20 18:58 Lioresal - PO Q8H PRN MUSCLE SPASMS Carvedilol 12.5 mg 01/28/20 07:39 01/28/20 10:04 Coreg - PO Not Given BID LISA Cyanocobalamin 1,000 mcg 01/28/20 10:00 01/28/20 09:59 Vitamin B12 - PO 1,000 mcg DAILY LISA Administration Docusate Sodium 100 mg 01/27/20 18:58 Colace - PO Q8H PRN CONSTIPATION Hydrocortisone 1 applic 01/27/20 18:58 Hytone 1% Cream - TP DAILY PRN FOR ITCHING Daptomycin 500 mg/ Sodium 50 mls @ 100 mls/hr 01/28/20 15:30 Chloride IVPB Q48H LISA Protocol Meropenem 1 gm/ Dextrose 100 mls @ 200 mls/hr 01/28/20 03:00 01/28/20 03:01 IVPB 200 mls/hr Q12H LISA Administration Sodium Chloride 1,000 mls @ 50 mls/hr 01/27/20 18:58 01/27/20 19:00 Normal Saline - IV 01/31/20 14:01 Not Given ASDIR LISA Insulin Aspart 1 vial 01/27/20 22:00 01/28/20 06:36 Novolog Vial Sliding Scale - SQ 6 units ACHS LISA Administration Protocol Lidocaine 1 patch 01/28/20 10:00 01/28/20 09:59 Lidoderm Patch - TP 1 patch DAILY LISA Administration Miscellaneous 1 each 01/27/20 22:00 01/27/20 21:16 Lidoderm Patch Removal MC 1 each DAILY@2200 LISA Administration Oxycodone HCl 10 mg 01/27/20 18:58 01/28/20 05:49 Roxicodone - PO 10 mg Q6H PRN Administration PAIN LEVEL 6-10 Pramipexole Dihydrochloride 0.25 mg 01/27/20 22:00 01/28/20 09:59 Mirapex - PO 0.25 mg BID [facility] Administration Rivaroxaban 15 mg 01/28/20 18:00 Xarelto PO DAILY@1800 [facility] Vital Signs Temp 97.1 F L 01/28/20 07:00 Pulse 146 H 01/28/20 09:00 Resp 18 01/28/20 09:00 BP 90/48 L 01/28/20 09:00 Pulse Ox 98 01/27/20 19:38 Intake & Output 01/27/20 01/27/20 01/28/20 11:59 23:59 11:59 Intake Total 600 1110 500 Output Total 1200 150 700 Balance -600 960 -200 Weight 198 lb 1 oz Intake: IV 400 600 350 Normal Saline - 1,000 ml 400 600 350 @ 50 mls/hr IV ASDIR [facility] Rx#:[id number] IVPB 100 100 100 Oral 100 410 50 Output: Drainage 0 0 Right Medial Back 0 0 Urine 1200 150 700 Hines 1200 150 700 Other: Voiding Method Indwelling Catheter Indwelling Catheter Bowel Movement No No No # Bowel Movements 3 Weight Measurement Method Built in [facility] Constitutional: Yes: agitated Respiratory: CTAB anteriorly, poor effort Gastrointestinal: Yes: Soft, Abdomen, Obese Cardiovascular: Yes: Pulse Irregular, tachy, nl s1, s2, no mrg no jvd Edema: none Neurological: agitated, confused no jaundice, diaphoresis Laboratory Last Values WBC 5.4 K/mm3 (4.0-10.0) 01/27/20 06:25 Corrected WBC (auto) Cancelled 01/22/20 06:25 RBC 4.44 M/mm3 (3.60-5.2) 01/27/20 06:25 Hgb 12.0 GM/dL (10.7-15.3) 01/27/20 06:25 Hct 37.6 % (32.4-45.2) D 01/27/20 06:25 MCV 84.7 fl (80-96) 01/27/20 06:25 MCH 27.1 pg (25.7-33.7) 01/27/20 06:25 MCHC 32.0 g/dl (32.0-36.0) 01/27/20 06:25 RDW 18.5 % (11.6-15.6) H 01/27/20 06:25 Plt Count 317 K/MM3 (134-434) 01/27/20 06:25 MPV 8.0 fl (7.5-11.1) 01/27/20 06:25 Absolute Neuts (auto) 4.4 K/mm3 (1.5-8.0) 01/27/20 06:25 Neutrophils % 81.5 % (42.8-82.8) 01/27/20 06:25 Neutrophils % (Manual) 66.3 % (42.8-82.8) 01/23/20 07:00 Band Neutrophils % 3.2 % 01/23/20 07:00 Lymphocytes % 15.5 % (8-40) D 01/27/20 06:25 Lymphocytes % (Manual) 15.8 % (8-40) 01/23/20 07:00 Monocytes % 2.4 % (3.8-10.2) L 01/27/20 06:25 Monocytes % (Manual) 11 % (3.8-10.2) H 01/23/20 07:00 Eosinophils % 0.2 % (0-4.5) D 01/27/20 06:25 Eosinophils % (Manual) 4.2 % (0-4.5) 01/23/20 07:00 Basophils % 0.4 % (0-2.0) 01/27/20 06:25 Basophils % (Manual) 0.0 % (0-2.0) 01/23/20 07:00 Myelocytes % (Man) 0 % (0-2) 01/23/20 07:00 Promyelocytes % (Man) 0 % (0-2) 01/23/20 07:00 Blast Cells % (Manual) 0 % (0-0) 01/23/20 07:00 Nucleated RBC % 0 % (0-0) 01/27/20 06:25 Metamyelocytes 0 % (0-2) 01/23/20 07:00 Manual Slide Review Cancelled 01/22/20 06:25 Hypochromia 0 01/23/20 07:00 Platelet Estimate Adequate 01/24/20 20:08 Platelet Comment No clumping noted 01/24/20 20:08 Polychromasia 1+ 01/23/20 07:00 Poikilocytosis 0 01/23/20 07:00 Anisocytosis 1+ 01/23/20 07:00 Microcytosis 1+ 01/23/20 07:00 Macrocytosis 0 01/23/20 07:00 ESR 88 mm/hr (0-30) H 01/21/20 07:04 PT with INR 18.60 SEC (9.7-13.0) H 01/20/20 06:45 INR 1.57 (0.83-1.09) H 01/20/20 06:45 PTT (Actin FS) 38.5 SECONDS (25.2-36.5) H 01/19/20 12:30 VBG pH 7.32 (7.31-7.41) 01/19/20 12:30 POC VBG pCO2 49.5 mmHg (38-52) 01/19/20 12:30 POC VBG pO2 < 49 mmHg (28-48) H 01/19/20 12:30 VBG HCO3 24.6 mmol/L (23-29) 01/19/20 12:30 VBG O2 Sat (Michael) 60.8 % (70-80) L 01/19/20 12:30 VBG Base Excess -1.9 mmol/L (-2-2) 01/19/20 12:30 Sodium 130 mmol/L (136-145) L 01/27/20 06:25 Potassium 5.2 mmol/L (3.5-5.1) H 01/27/20 06:25 Chloride 97 mmol/L (98-107) L 01/27/20 06:25 Carbon Dioxide 23 mmol/L (21-32) 01/27/20 06:25 Anion Gap 11 MMOL/L (8-16) 01/27/20 06:25 BUN 43.2 mg/dL (7-18) H 01/27/20 06:25 Creatinine 1.2 mg/dL (0.55-1.3) 01/27/20 06:25 Est GFR (CKD-EPI)AfAm 51.92 01/27/20 06:25 Est GFR (CKD-EPI)NonAf 44.80 01/27/20 06:25 POC Glucometer 268 UNITS (80-120) 01/28/20 06:30 Random Glucose 343 mg/dL (74-106) H 01/27/20 06:25 Serum Osmolality 281 mosm/kg (278-305) 01/24/20 23:00 Lactic Acid 2.4 mmol/L (0.4-2.0) H* 01/24/20 05:30 Calcium 8.5 mg/dL (8.5-10.1) 01/27/20 06:25 Phosphorus 4.1 mg/dL (2.5-4.9) 01/27/20 06:25 Magnesium 2.8 mg/dL (1.8-2.4) H 01/27/20 06:25 Total Bilirubin 0.4 mg/dL (0.2-1) 01/27/20 06:25 AST 23 U/L (15-37) 01/27/20 06:25 ALT 16 U/L (13-61) 01/27/20 06:25 Alkaline Phosphatase 160 U/L (45-117) H 01/27/20 06:25 Creatine Kinase 203 U/L (26-192) H 01/27/20 06:25 Creatine Kinase Index 1.6 % (0.0-5.0) 01/27/20 06:25 CK-MB (CK-2) 3.4 ng/mL (0.5-3.6) 01/27/20 06:25 Troponin I < 0.02 ng/ml (0.00-0.05) 01/24/20 20:08 C-Reactive Protein 14.0 MG/DL (0.00-0.3) H 01/21/20 07:02 Total Protein 6.4 g/dl (6.4-8.2) 01/27/20 06:25 Albumin 2.2 g/dl (3.4-5.0) L 01/27/20 06:25 Urine Color Yellow 01/24/20 23:59 Urine Appearance Turbid 01/24/20 23:59 Urine pH 5.0 (5.0-8.0) 01/24/20 23:59 Ur Specific [place] 1.018 (1.010-1.035) 01/24/20 23:59 Urine Protein 1+ (NEGATIVE) H 01/24/20 23:59 Urine Glucose (UA) Negative (NEGATIVE) 01/24/20 23:59 Urine Ketones Trace (NEGATIVE) H 01/24/20 23:59 Urine Blood Negative (NEGATIVE) 01/24/20 23:59 Urine Nitrite Negative (NEGATIVE) 01/24/20 23:59 Urine Bilirubin Negative (NEGATIVE) 01/24/20 23:59 Urine Urobilinogen 0.2 mg/dL (0.2-1.0) 01/24/20 23:59 Ur Leukocyte Esterase 2+ (NEGATIVE) H 01/24/20 23:59 Urine WBC (Auto) 124 /uL (0-25.8) 01/24/20 23:59 Urine RBC (Auto) 13 /uL (0-23.9) 01/24/20 23:59 Urine Casts (Auto) 10 /uL (0-3.1) 01/24/20 23:59 U Pathogenic Cast Auto None seen /lpf (NEGATIVE) 01/24/20 23:59 U Epithel Cells (Auto) >36 /uL (0-25.1) 01/24/20 23:59 Urine Crystals (Auto) None seen /hpf 01/24/20 23:59 Urine Bacteria (Auto) 98 /uL (0-1359) 01/24/20 23:59 Urine Yeast (Auto) None seen (NEGATIVE) 01/24/20 23:59 Urine Osmolality 268 mosm/kg (300-900) L 01/24/20 23:59 Ur Random Sodium 23 MMOL/L (40-220) L 01/25/20 00:00 Ur Random Potassium 34.0 MMOL/L (25-125) 01/25/20 00:00 Ur Random Chloride 29 MMOL/L (110-250) L 01/25/20 00:00 Vancomycin Pre-Dose 37.4 ug/ml (5-10) H* 01/24/20 20:08 COVID-19 ([facility]) Not detected (Not Detected) 01/19/20 23:40 Blood Type O POSITIVE 01/19/20 17:30 Antibody Screen Negative 01/19/20 17:30 Echo: Report Reviewed ( Moderately reduced EF, Moderate MR (this admission); 2018 50-55% with mild MR) tele: afib/aflutter, rvr when agitated Imaging - Results X-ray: Image Reviewed, no sig chf est cct 35 mins Assessment/Plan IMP: Epidural abscess, wound infection Acute renal failure Hyponatremia Acute on chronic systolic CHF, with what appears to be new LV dysfx from 2018 Moderate MR Prolonged QT PAF HTN 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 REC: abd pain, epidural abscess: - manage per surgery, ID acute renal failure: -Suspect ATN due to periods of intermittent hypotension -Renal following -cr improved -pressors off now -renally dosed meds, adjusted Xarelto for now Hypotension: -pressors now off, bp still on low side today -volume depletion/sepsis likely etiology UTI, bacteremia: - manage per primary, ID chronic systolic CHF, nonischemic cardiomyopathy, moderate MR: -known nonisch CMP with normal coronaries on cath x 2 -EF has fluctuated 35-55% over the years, likely in relation to severity of untreated NICHOLE, vs ? diabetic (uncontrolled glycemic status, does not f/u with PMD despite repeatedly advised to do so) -EF moderately reduced, last echo here EF 35-40% -does not appear vol overloaded now -coreg resumed -in setting of hypotension, holding torsemide, and entresto for now PAF: -Cont Xarelto, dose adjust for GFR -rvr at times, likely due to agitation. coreg resumed. monitor on tele. DVT/PE with history of filter: -cont with AC NICHOLE: -not using CPAP
[2020-01-28 10:52] LABS: BASO % 0.1 % (0-2.0); HEMATOCRIT 36.1 % (32.4-45.2); HEMOGLOBIN 11.4 GM/dL (10.7-15.3); MCH 26.8 pg (25.7-33.7); MCHC 31.5 g/dl (32.0-36.0); MEAN CELL VOLUME 85.2 fl (80-96); MEAN PLT VOLUME 7.8 fl (7.5-11.1); MONO % 6.9 % (3.8-10.2); PLATELET COUNT 375 K/MM3 (134-434); RBC 4.24 M/mm3 (3.60-5.2); RDW 18.6 % (11.6-15.6); WHITE BLOOD COUNT 9.8 K/mm3 (4.0-10.0)
--- NOTE | 2020-01-28 11:20 | PN ---
Progress Note, Physician History of Present Illness: confused this morning drowsy - Current Medication List Current Medications: Active Medications Alprazolam (Xanax) 1 mg PO Q12H PRN PRN Reason: ANXIETY Last Admin: 01/28/20 07:55 Dose: 1 mg Documented by: Baclofen (Lioresal -) 10 mg PO Q8H PRN PRN Reason: MUSCLE SPASMS Carvedilol (Coreg -) 12.5 mg PO BID [facility] Last Admin: 01/28/20 10:04 Dose: Not Given Documented by: Cyanocobalamin (Vitamin B12 -) 1,000 mcg PO DAILY [facility] Last Admin: 01/28/20 09:59 Dose: 1,000 mcg Documented by: Docusate Sodium (Colace -) 100 mg PO Q8H PRN PRN Reason: CONSTIPATION Hydrocortisone (Hytone 1% Cream -) 1 applic TP DAILY PRN PRN Reason: FOR ITCHING Meropenem 1 gm/ Dextrose 100 mls @ 200 mls/hr IVPB Q12H [facility] Last Admin: 01/28/20 03:01 Dose: 200 mls/hr Documented by: Sodium Chloride (Normal Saline -) 1,000 mls @ 50 mls/hr IV ASDIR [facility] Stop: 01/31/20 14:01 Last Admin: 01/27/20 19:00 Dose: Not Given Documented by: Daptomycin 500 mg/ Sodium (Chloride) 50 mls @ 100 mls/hr IVPB Q24H [facility]; Protocol Insulin Aspart (Novolog Vial Sliding Scale -) 1 vial SQ ACHS [facility]; Protocol Last Admin: 01/28/20 06:36 Dose: 6 units Documented by: Lidocaine (Lidoderm Patch -) 1 patch TP DAILY [facility] Last Admin: 01/28/20 09:59 Dose: 1 patch Documented by: Miscellaneous (Lidoderm Patch Removal) 1 each MC DAILY@2200 [facility] Last Admin: 01/27/20 21:16 Dose: 1 each Documented by: Oxycodone HCl (Roxicodone -) 10 mg PO Q6H PRN PRN Reason: PAIN LEVEL 6-10 Last Admin: 01/28/20 05:49 Dose: 10 mg Documented by: Pramipexole Dihydrochloride (Mirapex -) 0.25 mg PO BID [facility] Last Admin: 01/28/20 09:59 Dose: 0.25 mg Documented by: Rivaroxaban (Xarelto) 15 mg PO DAILY@1800 LISA - Objective Vital Signs: Vital Signs Temperature 97.1 F L 01/28/20 07:00 Pulse Rate 146 H 01/28/20 09:00 Respiratory Rate 18 01/28/20 09:00 Blood Pressure 90/48 L 01/28/20 09:00 O2 Sat by Pulse Oximetry (%) 98 01/27/20 19:38 Constitutional: Yes: Calm, Other Cardiovascular: Yes: S1, S2 Gastrointestinal: Yes: Normal Bowel Sounds, Soft Musculoskeletal: Yes: WNL Extremities: Yes: WNL Wound/Incision: Yes: Other (drain in place) Neurological: Yes: Other Labs: CBC, BMP 01/28/20 09:30 01/27/20 06:25 INR, PTT INR 1.57 (0.83-1.09) H 01/20/20 06:45 Assessment/Plan roblem List - Problems (1) UTI (urinary tract infection) Code(s): N39.0 - URINARY TRACT INFECTION, SITE NOT SPECIFIED (2) Epidural abscess Code(s): G06.2 - EXTRADURAL AND SUBDURAL ABSCESS, UNSPECIFIED (3) Chronic systolic heart failure Code(s): I50.22 - CHRONIC SYSTOLIC (CONGESTIVE) HEART FAILURE (4) Diabetes Code(s): E11.9 - TYPE 2 DIABETES MELLITUS WITHOUT COMPLICATIONS Qualifiers: Diabetes mellitus type: type 2 (5) History of DVT (deep vein thrombosis) Code(s): Z86.718 - PERSONAL HISTORY OF OTHER VENOUS THROMBOSIS AND EMBOLISM (6) Hypertension Code(s): I10 - ESSENTIAL (PRIMARY) HYPERTENSION (7) Non-ischemic cardiomyopathy Code(s): I42.9 - CARDIOMYOPATHY, UNSPECIFIED (8) Obstructive sleep apnea Code(s): G47.33 - OBSTRUCTIVE SLEEP APNEA (ADULT) (PEDIATRIC) Assessment/Plan Bacteremia UTI Epidural abscess - s/p drainage/DASH in place DM CHF Hx of DVT AFIB continue meropenam dapto surgery to see the patient renal on board monitor renal function drain not draining worry is if it is blocked imaging to see if fluid collection is occuring cc 40 min
--- NOTE | 2020-01-28 11:52 | PN ---
Teaching Attending Note Name of Resident: Latoya Martinez ATTENDING PHYSICIAN STATEMENT I saw and evaluated the patient. I reviewed the resident's note and discussed the case with the resident. I agree with the resident's findings and plan as documented. SUBJECTIVE: Pt seen and examined in the ICU. Remains delerious. Minimal drainage from DASH dr barcenas. No fevers recorded. OBJECTIVE: Vital Signs Period Temp Pulse Resp BP Sys/Marcelo Pulse Ox Last 24 Hr 97.1 F-98 F 114-146 16-20 79-138/47-98 98-98 Intake & Output 01/25/20 01/26/20 01/27/20 01/28/20 23:59 23:59 23:59 23:59 Intake Total 1576.6 2076 1710 500 Output Total 617 1010 1350 700 Balance 959.6 1066 360 -200 Weight 85.23 kg 89.84 kg Gen: confused Heart: tachycardic, regular Lung: decreased breath sounds at the bases Abd: soft, nontender Ext: no edema CBC, BMP 01/28/20 09:30 01/27/20 06:25 Active Medications Alprazolam (Xanax) 1 mg PO Q12H PRN PRN Reason: ANXIETY Last Admin: 01/28/20 07:55 Dose: 1 mg Documented by: Baclofen (Lioresal -) 10 mg PO Q8H PRN PRN Reason: MUSCLE SPASMS Carvedilol (Coreg -) 12.5 mg PO BID [facility] Last Admin: 01/28/20 10:04 Dose: Not Given Documented by: Cyanocobalamin (Vitamin B12 -) 1,000 mcg PO DAILY [facility] Last Admin: 01/28/20 09:59 Dose: 1,000 mcg Documented by: Docusate Sodium (Colace -) 100 mg PO Q8H PRN PRN Reason: CONSTIPATION Hydrocortisone (Hytone 1% Cream -) 1 applic TP DAILY PRN PRN Reason: FOR ITCHING Meropenem 1 gm/ Dextrose 100 mls @ 200 mls/hr IVPB Q12H [facility] Last Admin: 01/28/20 03:01 Dose: 200 mls/hr Documented by: Sodium Chloride (Normal Saline -) 1,000 mls @ 50 mls/hr IV ASDIR ON [facility] Stop: 01/31/20 14:01 Last Admin: 01/27/20 19:00 Dose: Not Given Documented by: Daptomycin 500 mg/ Sodium (Chloride) 50 mls @ 100 mls/hr IVPB Q24H [facility]; Protocol Insulin Aspart (Novolog Vial Sliding Scale -) 1 vial SQ ACHS [facility]; Protocol Last Admin: 01/28/20 06:36 Dose: 6 units Documented by: Lidocaine (Lidoderm Patch -) 1 patch TP DAILY [facility] Last Admin: 01/28/20 09:59 Dose: 1 patch Documented by: Miscellaneous (Lidoderm Patch Removal) 1 each MC DAILY@2200 [facility] Last Admin: 01/27/20 21:16 Dose: 1 each Documented by: Oxycodone HCl (Roxicodone -) 10 mg PO Q6H PRN PRN Reason: PAIN LEVEL 6-10 Last Admin: 01/28/20 05:49 Dose: 10 mg Documented by: Pramipexole Dihydrochloride (Mirapex -) 0.25 mg PO BID [facility] Last Admin: 01/28/20 09:59 Dose: 0.25 mg Documented by: Rivaroxaban (Xarelto) 15 mg PO DAILY@1800 [facility] ASSESSMENT AND PLAN: Paraspinal Abscess s/p drainage UTI Sepsis LV Systolic Dysfunction Atrial Fibrillation HTN DM Rheumatoid Arthritis h/o DVT/PE Hyponatremia Anemia - continue antibiotics per ID - agree with repeat imaging - monitor drain output - rate control - continue anticoagulation - pain control - aspiration precautions - can monitor on telemetry
[2020-01-28] MEDS ORDERED: LORazepam 2 MG/ML SDV VIAL IVPUSH SCH (13:17)
[2020-01-28] MEDS ORDERED: MEROPENEM 1 GM VIAL (RESTRICTED TO ID) IVPB ONE (14:02)
[2020-01-28] MEDS ORDERED: DEXTROSE 5%-WATER 100 ML IVPB ONE (14:02)
--- NOTE | 2020-01-28 14:37 | PN ---
Progress Note, Physician History of Present Illness: Pt seen and examined at bedside. She is agitated. - Current Medication List Current Medications: Active Medications Alprazolam (Xanax) 1 mg PO Q12H PRN PRN Reason: ANXIETY Last Admin: 01/28/20 07:55 Dose: 1 mg Documented by: Baclofen (Lioresal -) 10 mg PO Q8H PRN PRN Reason: MUSCLE SPASMS Carvedilol (Coreg -) 12.5 mg PO BID [facility] Last Admin: 01/28/20 10:04 Dose: Not Given Documented by: Cyanocobalamin (Vitamin B12 -) 1,000 mcg PO DAILY [facility] Last Admin: 01/28/20 09:59 Dose: 1,000 mcg Documented by: Docusate Sodium (Colace -) 100 mg PO Q8H PRN PRN Reason: CONSTIPATION Hydrocortisone (Hytone 1% Cream -) 1 applic TP DAILY PRN PRN Reason: FOR ITCHING Meropenem 1 gm/ Dextrose 100 mls @ 200 mls/hr IVPB Q12H [facility] Last Admin: 01/28/20 14:23 Dose: 200 mls/hr Documented by: Sodium Chloride (Normal Saline -) 1,000 mls @ 50 mls/hr IV ASDIR [facility] Stop: 01/31/20 14:01 Last Admin: 01/27/20 19:00 Dose: Not Given Documented by: Daptomycin 500 mg/ Sodium (Chloride) 50 mls @ 100 mls/hr IVPB Q24H [facility]; Protocol Insulin Aspart (Novolog Vial Sliding Scale -) 1 vial SQ ACHS [facility]; Protocol Last Admin: 01/28/20 12:05 Dose: 2 units Documented by: Lidocaine (Lidoderm Patch -) 1 patch TP DAILY [facility] Last Admin: 01/28/20 09:59 Dose: 1 patch Documented by: Lorazepam (Ativan Injection -) 1 mg IVPUSH [employer] HAIR [facility] Stop: 01/28/20 18:00 Miscellaneous (Lidoderm Patch Removal) 1 each MC DAILY@2200 [facility] Last Admin: 01/27/20 21:16 Dose: 1 each Documented by: Oxycodone HCl (Roxicodone -) 10 mg PO Q6H PRN PRN Reason: PAIN LEVEL 6-10 Last Admin: 01/28/20 05:49 Dose: 10 mg Documented by: Pramipexole Dihydrochloride (Mirapex -) 0.25 mg PO BID [facility] Last Admin: 01/28/20 09:59 Dose: 0.25 mg Documented by: Rivaroxaban (Xarelto) 15 mg PO DAILY@1800 [facility] - Objective Vital Signs: Vital Signs Temperature 97.1 F L 01/28/20 07:00 Pulse Rate 141 H 01/28/20 12:10 Respiratory Rate 18 01/28/20 12:10 Blood Pressure 98/57 L 01/28/20 12:10 O2 Sat by Pulse Oximetry (%) 100 01/28/20 09:00 Constitutional: Yes: Calm Eyes: Yes: Conjunctiva Clear HENT: Yes: Atraumatic Neck: Yes: Supple Cardiovascular: Yes: S1, S2 Respiratory: Yes: CTA Bilaterally Gastrointestinal: Yes: Normal Bowel Sounds, Soft Genitourinary: Yes: Hines Present Musculoskeletal: Yes: Muscle Weakness Edema: No Neurological: Yes: Confusion Psychiatric: Yes: Agitated Labs: CBC, BMP 01/28/20 09:30 01/27/20 06:25 INR, PTT INR 1.57 (0.83-1.09) H 01/20/20 06:45 Problem List - Problems (1) ELIZABETH (acute kidney injury) Code(s): N17.9 - ACUTE KIDNEY FAILURE, UNSPECIFIED Assessment/Plan Current Medications Generic Name Dose Route Start Last Admin Trade Name Freq PRN Reason Stop Dose Admin Alprazolam 1 mg 01/27/20 18:58 01/28/20 07:55 Xanax PO 1 mg Q12H PRN Administration ANXIETY Baclofen 10 mg 01/27/20 18:58 Lioresal - PO Q8H PRN MUSCLE SPASMS Carvedilol 12.5 mg 01/28/20 07:39 01/28/20 10:04 Coreg - PO Not Given BID [facility] Cyanocobalamin 1,000 mcg 01/28/20 10:00 01/28/20 09:59 Vitamin B12 - PO 1,000 mcg DAILY [facility] Administration Docusate Sodium 100 mg 01/27/20 18:58 Colace - PO Q8H PRN CONSTIPATION Hydrocortisone 1 applic 01/27/20 18:58 Hytone 1% Cream - TP DAILY PRN FOR ITCHING Meropenem 1 gm/ Dextrose 100 mls @ 200 mls/hr 01/28/20 03:00 01/28/20 14:23 IVPB 200 mls/hr Q12H [facility] Administration Sodium Chloride 1,000 mls @ 50 mls/hr 01/27/20 18:58 01/27/20 19:00 Normal Saline - IV 01/31/20 14:01 Not Given ASDIR [facility] Daptomycin 500 mg/ Sodium 50 mls @ 100 mls/hr 01/28/20 15:30 Chloride IVPB Q24H [facility] Protocol Insulin Aspart 1 vial 01/27/20 22:00 01/28/20 12:05 Novolog Vial Sliding Scale - SQ 2 units ACHS [facility] Administration Protocol Lidocaine 1 patch 01/28/20 10:00 01/28/20 09:59 Lidoderm Patch - TP 1 patch DAILY [facility] Administration Lorazepam 1 mg 01/28/20 13:17 Ativan Injection - IVPUSH 01/28/20 18:00 [employer]IR [facility] Miscellaneous 1 each 01/27/20 22:00 01/27/20 21:16 Lidoderm Patch Removal MC 1 each DAILY@2200 [facility] Administration Oxycodone HCl 10 mg 01/27/20 18:58 01/28/20 05:49 Roxicodone - PO 10 mg Q6H PRN Administration PAIN LEVEL 6-10 Pramipexole Dihydrochloride 0.25 mg 01/27/20 22:00 01/28/20 09:59 Mirapex - PO 0.25 mg BID [facility] Administration Rivaroxaban 15 mg 01/28/20 18:00 Xarelto PO DAILY@1800 [facility] Impressin 1. ELIZABETH 2. sepsis 3. shock 4. CHF 5. hx of htn 6. epidural abscess 7. ut 8. a-fib 9. hyponatremia Plan - renal function improved - check cmp - monitor potassium - avoid hypotension - renal ultrasound reviewed - avoid overload - avoid nsaids - renal dose meds - discussed with ICU team
[2020-01-28] MEDS ORDERED: DAPTOMYCIN 500 MG in SODIUM CHLORIDE 50 ML IVPB SCH (15:30)
[2020-01-28] MEDS: DAPTOMYCIN 500 MG in SODIUM CHLORIDE 50 ML IVPB SCH (15:54)
[2020-01-28] MEDS: SODIUM CHLORIDE 1,000 ML IV SCH (17:00)
[2020-01-28] MEDS: RIVAROXABAN 15 MG TABLET PO SCH (18:28)
[2020-01-28] MEDS ORDERED: LORazepam 2 MG/ML SDV VIAL IM ONE (21:29)
[2020-01-28] MEDS ORDERED: LORazepam 2 MG/ML SDV VIAL ONE (21:31)
[2020-01-28] MEDS: LIDOCAINE PATCH REMOVAL MC SCH (21:47)
[2020-01-29] MEDS ORDERED: LORazepam 2 MG/ML SDV VIAL IVPUSH ONE (01:04)
[2020-01-29] MEDS ORDERED: MORPHINE SULFATE 2 MG/ML VIAL IM ONE ×2 (01:06)
[2020-01-29] MEDS ORDERED: morphine CARPU-JECT 2 MG/1 ML DISP.SYRIN IM ONE (01:06)
[2020-01-29] MEDS ORDERED: MORPHINE SULFATE 2 MG/ML VIAL ONE (01:09)
[2020-01-29] MEDS: MEROPENEM 1 GM in DEXTROSE 5%-WATER 100 ML IVPB SCH ×2 (02:41→17:32)
[2020-01-29] MEDS: INSULIN SLIDING SCALE (NOVOLOG) 1 VIAL SQ SCH ×4 (06:55→21:43)
--- NOTE | 2020-01-29 08:01 | PN ---
Progress Note (short form) - Note Progress Note: HD#10 OVERNIGHT EVENTS Continues to be very confused and disoriented and agitated. Pulled her PIV and her DASH drain. Got L-spine CT with IV contrast yesterday prior to her pulling her own DASH drain and now pending official radiology read. OBJECTIVE Vital Signs Temp 98.5 F 01/28/20 20:00 Pulse 138 H 01/29/20 06:00 Resp 20 01/29/20 06:00 BP 102/51 L 01/29/20 06:00 Pulse Ox 97 01/28/20 21:00 Intake & Output 01/28/20 01/28/20 01/29/20 11:59 23:59 11:59 Intake Total 500 100 Output Total 700 300 Balance -200 -200 Weight 89.84 kg Intake: IV 350 100 Normal Saline - 1,000 ml 350 @ 50 mls/hr IV ASDIR [facility] Rx#:[id number] SL 100 IVPB 100 Oral 50 Output: Urine 700 300 Hines 700 300 Other: Voiding Method Indwelling Catheter Indwelling Catheter Bowel Movement No No Weight Measurement Method Built in Bedscale LINES: None TUBES: None DRAINS: Hines SUPPLEMENTAL O2: NC EXAM GENERAL: elderly, alert, nontoxic-appearing, no distress, answers questions appropriately HEENT: PERRLA, EOMI, a bit dry mucous membranes NECK/BACK: no midline ttp, no spinal stepoff or deformity, no hematoma, full ROM, neck supple CARDIOVASCULAR: irregularly irregular but not tachycardic, no MGR, strong peripheral pulses, capillary refill 3 seconds, no edema LUNGS/RESPIRATORY: Lungs CTAB without focal area of decreased breath sounds GI/ABDOMEN: symmetric [id number], normoactive BS, soft, no ttp, no midline pulsatile masses : no CVA tenderness MSK/EXTREMITIES: no muscle atrophy, no acute deformity, BLE a bit cool SKIN: scattered excoriations from scratching but skin otherwise warm and dry, no pallor, no jaundice, no obvious rash NEUROLOGICAL: initially sleeping but when awakened for exam becomes precipitously confused/agitated, however at the time of AM rounds she is much calmer and content, slightly drowsy but alert and answering questions and coherent, GCS 15, CN II-XII grossly intact, 5/5 strength proximally and distally, no facial droop DRIPS: None ANTI-INFECTIVES: Daptomycin, Meropenem CBCD WBC 9.8 K/mm3 (4.0-10.0) 01/28/20 09:30 RBC 4.24 M/mm3 (3.60-5.2) 01/28/20 09:30 Hgb 11.4 GM/dL (10.7-15.3) 01/28/20 09:30 Hct 36.1 % (32.4-45.2) 01/28/20 09:30 MCV 85.2 fl (80-96) 01/28/20 09:30 MCHC 31.5 g/dl (32.0-36.0) L 01/28/20 09:30 RDW 18.6 % (11.6-15.6) H 01/28/20 09:30 Plt Count 375 K/MM3 (134-434) 01/28/20 09:30 MPV 7.8 fl (7.5-11.1) 01/28/20 09:30 CMP Sodium 130 mmol/L (136-145) L 01/27/20 06:25 Potassium 5.2 mmol/L (3.5-5.1) H 01/27/20 06:25 Chloride 97 mmol/L (98-107) L 01/27/20 06:25 Carbon Dioxide 23 mmol/L (21-32) 01/27/20 06:25 Anion Gap 11 MMOL/L (8-16) 01/27/20 06:25 BUN 43.2 mg/dL (7-18) H 01/27/20 06:25 Creatinine 1.2 mg/dL (0.55-1.3) 01/27/20 06:25 Random Glucose 343 mg/dL (74-106) H 01/27/20 06:25 Calcium 8.5 mg/dL (8.5-10.1) 01/27/20 06:25 Total Bilirubin 0.4 mg/dL (0.2-1) 01/27/20 06:25 AST 23 U/L (15-37) 01/27/20 06:25 ALT 16 U/L (13-61) 01/27/20 06:25 Alkaline Phosphatase 160 U/L (45-117) H 01/27/20 06:25 Total Protein 6.4 g/dl (6.4-8.2) 01/27/20 06:25 Albumin 2.2 g/dl (3.4-5.0) L 01/27/20 06:25 CARDIAC ENZYMES Creatine Kinase 203 U/L (26-192) H 01/27/20 06:25 Troponin I < 0.02 ng/ml (0.00-0.05) 01/24/20 20:08 Microbiology 01/24/20 05:30 Blood - Peripheral Venous Blood Culture - Preliminary NO GROWTH OBTAINED AFTER 96 HOURS, INCUBATION TO CONTINUE FOR 1 DAYS. 01/24/20 05:30 Blood - Peripheral Venous Blood Culture - Preliminary NO GROWTH OBTAINED AFTER 96 HOURS, INCUBATION TO CONTINUE FOR 1 DAYS. ASSESSMENT / PLAN: 74YOF with h/o CHF (EF 35-40%), RA, DM 2, HTN, Hx DVT/PE, a fib (on Xarelto), known non-ischemic cardiomyopathy, multiple spine surgeries, s/p L4/[address] Borjas then L5/S1 seroma with recent epidural abscess drainage s/p I and D, complex wound closure and wound vac placement 11/26-s/p IV abx who presented to ED 01/19/20 for weakness and malaise x4 days. Found with UTI, but septic since yesterday and c/f possibility of DASH drain infection. NEURO/PSYCH: Increased confusion, agitation - likely delirium exacerbated by polypharmacy with valium + oxycodone + Baclofen -Avoid sedating medications during the day and minimize during the night -Melatonin for sleep instead of Benadryl -No Ambien -Baclofen instead of Valium for muscle spasm -Minimize oxycodone - Tylenol first -Frequent re-orientation -Window blinds retracted during the day, down all the way at night -Lights on during the day, off at night -Promote nighttime sleep with minimal noise, maximal comfort -Soft restraints as needed if pulling at lines/drains or scratching causing excoriations ENDOCRINE: h/o type 2 DM -ISS, FSBG TIDAC CV: Chronic AF, h/o CHF with likely exacerbation -Continue home Xarelto -Continue home Cardizem RESP: No concerns at this time. -Continue to monitor GI: No concerns at this time. -Continue to monitor RENAL/: LEIZABETH likely ATN from hypotension (improved), hyponatremia (improving) -Renal consulting, appreciate recs -Avoid NSAIDs HEME: No concerns at this time. -Continue to monitor ID: Sepsis with C/F DASH drain infection, abscess, etc. Much improved. -ID consulting, appreciate recs -F/U BCx taken 01/23 (NGTD so far; BCx taken 01/21 final report without growth) -Continue meropenem and daptomycin -Dr. Borjas to see the patient (last note 01/20) -Pulled DASH drain -F/U CT results from 01/28/20 MSK: Recent spinal surgery, seroma, epidural abscess drainage, DASH drain placement still indwelling -Spine surgery consulting, last note 01/20 DERM: Full-body itching, likely vancomycin or meropenem or daptomycin, continuing issue. Difficult to select abx given Pt's allergies. -Hydrocortisone topical prn -Famotidine prn -Careful Benadryl and Solu-Medrol (only if severe itching), may consider hy droxyzine instead of Benadryl FEN: Hyponatremia, improving -Follow chemistries -IVF: None PPX - DVT: Williamrelto, SCDs - GI: Diabetic diet CODE STATUS: Full code DISPO PLAN: For transfer to Tele Discussed patient with ICU Attending MD Latoya So MD ICU Consult Service Problem List - Problems (1) Delirium Code(s): R41.0 - DISORIENTATION, UNSPECIFIED
[2020-01-29] MEDS ORDERED: diphenhydrAMINE HCL 25 MG CAPSULE (FP) PO ONE (08:14)
[2020-01-29] MEDS: CARVEDILOL 12.5 MG TABLET (FP) PO SCH ×2 (10:06→21:43)
--- NOTE | 2020-01-29 10:33 | PN ---
Progress Note, Physician History of Present Illness: Pt seen and examined at bedside. She remains confused. - Current Medication List Current Medications: Active Medications Alprazolam (Xanax) 1 mg PO Q12H PRN PRN Reason: ANXIETY Last Admin: 01/28/20 07:55 Dose: 1 mg Documented by: Baclofen (Lioresal -) 10 mg PO Q8H PRN PRN Reason: MUSCLE SPASMS Carvedilol (Coreg -) 12.5 mg PO BID [facility] Last Admin: 01/28/20 21:47 Dose: 12.5 mg Documented by: Cyanocobalamin (Vitamin B12 -) 1,000 mcg PO DAILY [facility] Last Admin: 01/28/20 09:59 Dose: 1,000 mcg Documented by: Docusate Sodium (Colace -) 100 mg PO Q8H PRN PRN Reason: CONSTIPATION Hydrocortisone (Hytone 1% Cream -) 1 applic TP DAILY PRN PRN Reason: FOR ITCHING Meropenem 1 gm/ Dextrose 100 mls @ 200 mls/hr IVPB Q12H [facility] Last Admin: 01/29/20 02:41 Dose: Not Given Documented by: Sodium Chloride (Normal Saline -) 1,000 mls @ 50 mls/hr IV ASDIR [facility] Stop: 01/31/20 14:01 Last Admin: 01/28/20 17:00 Dose: 50 mls/hr Documented by: Daptomycin 500 mg/ Sodium (Chloride) 50 mls @ 100 mls/hr IVPB Q24H [facility]; Protocol Last Admin: 01/28/20 15:54 Dose: Not Given Documented by: Insulin Aspart (Novolog Vial Sliding Scale -) 1 vial SQ ACHS [facility]; Protocol Last Admin: 01/29/20 06:55 Dose: Not Given Documented by: Lidocaine (Lidoderm Patch -) 1 patch TP DAILY [facility] Last Admin: 01/28/20 09:59 Dose: 1 patch Documented by: Miscellaneous (Lidoderm Patch Removal) 1 each MC DAILY@2200 [facility] Last Admin: 01/28/20 21:47 Dose: 1 each Documented by: Oxycodone HCl (Roxicodone -) 10 mg PO Q6H PRN PRN Reason: PAIN LEVEL 6-10 Last Admin: 01/28/20 20:00 Dose: 10 mg Documented by: Pramipexole Dihydrochloride (Mirapex -) 0.25 mg PO BID [facility] Last Admin: 01/28/20 21:47 Dose: 0.25 mg Documented by: Rivaroxaban (Xarelto) 15 mg PO DAILY@1800 [facility] Last Admin: 01/28/20 18:28 Dose: 15 mg Documented by: - Objective Vital Signs: Vital Signs Temperature 98.5 F 01/28/20 20:00 Pulse Rate 140 H 01/29/20 08:00 Respiratory Rate 18 01/29/20 08:00 Blood Pressure 96/50 L 01/29/20 08:00 O2 Sat by Pulse Oximetry (%) 97 01/29/20 10:00 Constitutional: Yes: Anxious Eyes: Yes: Conjunctiva Clear Cardiovascular: Yes: S1, S2 Respiratory: Yes: CTA Bilaterally Gastrointestinal: Yes: Soft Genitourinary: Yes: Incontinence Musculoskeletal: Yes: WNL Edema: No Neurological: Yes: Confusion Psychiatric: Yes: Agitated Labs: CBC, BMP 01/28/20 09:30 01/27/20 06:25 INR, PTT INR 1.57 (0.83-1.09) H 01/20/20 06:45 Problem List - Problems (1) ELIZABETH (acute kidney injury) Code(s): N17.9 - ACUTE KIDNEY FAILURE, UNSPECIFIED Assessment/Plan Current Medications Generic Name Dose Route Start Last Admin Trade Name Abelq PRN Reason Stop Dose Admin Alprazolam 1 mg 01/27/20 18:58 01/28/20 07:55 Xanax PO 1 mg Q12H PRN Administration ANXIETY Baclofen 10 mg 01/27/20 18:58 Lioresal - PO Q8H PRN MUSCLE SPASMS Carvedilol 12.5 mg 01/28/20 07:39 01/28/20 21:47 Coreg - PO 12.5 mg BID [facility] Administration Cyanocobalamin 1,000 mcg 01/28/20 10:00 01/28/20 09:59 Vitamin B12 - PO 1,000 mcg DAILY [facility] Administration Docusate Sodium 100 mg 01/27/20 18:58 Colace - PO Q8H PRN CONSTIPATION Hydrocortisone 1 applic 01/27/20 18:58 Hytone 1% Cream - TP DAILY PRN FOR ITCHING Meropenem 1 gm/ Dextrose 100 mls @ 200 mls/hr 01/28/20 03:00 01/29/20 02:41 IVPB Not Given Q12H [facility] Sodium Chloride 1,000 mls @ 50 mls/hr 01/27/20 18:58 01/28/20 17:00 Normal Saline - IV 01/31/20 14:01 50 mls/hr ASDIR [facility] Administration Daptomycin 500 mg/ Sodium 50 mls @ 100 mls/hr 01/28/20 15:30 01/28/20 15:54 Chloride IVPB Not Given Q24H [facility] Protocol Insulin Aspart 1 vial 01/27/20 22:00 01/29/20 06:55 Novolog Vial Sliding Scale - SQ Not Given ACHS [facility] Protocol Lidocaine 1 patch 01/28/20 10:00 01/28/20 09:59 Lidoderm Patch - TP 1 patch DAILY [facility] Administration Miscellaneous 1 each 01/27/20 22:00 01/28/20 21:47 Lidoderm Patch Removal MC 1 each DAILY@2200 [facility] Administration Oxycodone HCl 10 mg 01/27/20 18:58 01/28/20 20:00 Roxicodone - PO 10 mg Q6H PRN Administration PAIN LEVEL 6-10 Pramipexole Dihydrochloride 0.25 mg 01/27/20 22:00 01/28/20 21:47 Mirapex - PO 0.25 mg BID [facility] Administration Rivaroxaban 15 mg 01/28/20 18:00 01/28/20 18:28 Xarelto PO 15 mg DAILY@1800 [facility] Administration Impressin 1. ELIZABETH 2. sepsis 3. shock 4. CHF 5. hx of htn 6. epidural abscess 7. ut 8. a-fib 9. hyponatremia Plan - check bmp if possible, pt has been combative and refusing - volume status appears stable - monitor bp - avoid nsaids - renal dose meds - discussed with ICU team
[2020-01-29] MEDS: PRAMIPEXOLE DIHYDROCHLORIDE 0.25 MG TABLET PO SCH ×2 (10:39→21:43)
[2020-01-29] MEDS: LIDOCAINE 5% TOPICAL PATCH TP SCH (10:39)
[2020-01-29] MEDS: CYANOCOBALAMIN 1,000 MCG TABLET (FP) PO SCH (10:39)
--- NOTE | 2020-01-29 11:21 | PN ---
Teaching Attending Note Name of Resident: Latoya Michelle ATTENDING PHYSICIAN STATEMENT I saw and evaluated the patient. I reviewed the resident's note and discussed the case with the resident. I agree with the resident's findings and plan as documented. SUBJECTIVE: Pt seen and examined in the ICU. Confused overnight, pulled DASH drain. More alert this AM. No fevers recorded, denies back pain. Repeat CT unchanged. OBJECTIVE: Vital Signs Period Temp Pulse Resp BP Sys/Marcelo Pulse Ox Last 24 Hr 97.2 F-98.5 F 136-148 13-26 81-112/40-81 97-97 Intake & Output 01/26/20 01/27/20 01/28/20 01/29/20 23:59 23:59 23:59 23:59 Intake Total 2076 1710 600 Output Total 1010 1350 1000 Balance 1066 360 -400 Weight 89.84 kg 89.3 kg Gen: confused Heart: tachycardic, regular Lung: decreased breath sounds at the bases Abd: soft, nontender Ext: no edema CBC, BMP 01/28/20 09:30 01/27/20 06:25 Active Medications Alprazolam (Xanax) 1 mg PO Q12H PRN PRN Reason: ANXIETY Last Admin: 01/28/20 07:55 Dose: 1 mg Documented by: Baclofen (Lioresal -) 10 mg PO Q8H PRN PRN Reason: MUSCLE SPASMS Carvedilol (Coreg -) 12.5 mg PO BID [facility] Last Admin: 01/29/20 10:06 Dose: Not Given Documented by: Cyanocobalamin (Vitamin B12 -) 1,000 mcg PO DAILY [facility] Last Admin: 01/29/20 10:39 Dose: 1,000 mcg Documented by: Docusate Sodium (Colace -) 100 mg PO Q8H PRN PRN Reason: CONSTIPATION Hydrocortisone (Hytone 1% Cream -) 1 applic TP DAILY PRN PRN Reason: FOR ITCHING Meropenem 1 gm/ Dextrose 100 mls @ 200 mls/hr IVPB Q12H [facility] Last Admin: 01/29/20 02:41 Dose: Not Given Documented by: Sodium Chloride (Normal Saline -) 1,000 mls @ 50 mls/hr IV ASDIR [facility] Stop: 01/31/20 14:01 Last Admin: 01/28/20 17:00 Dose: 50 mls/hr Documented by: Daptomycin 500 mg/ Sodium (Chloride) 50 mls @ 100 mls/hr IVPB Q24H [facility]; Protocol Last Admin: 01/28/20 15:54 Dose: Not Given Documented by: Insulin Aspart (Novolog Vial Sliding Scale -) 1 vial SQ ACHS [facility]; Protocol Last Admin: 01/29/20 11:02 Dose: 4 units Documented by: Lidocaine (Lidoderm Patch -) 1 patch TP DAILY [facility] Last Admin: 01/29/20 10:39 Dose: 1 patch Documented by: Miscellaneous (Lidoderm Patch Removal) 1 each MC DAILY@2200 [facility] Last Admin: 01/28/20 21:47 Dose: 1 each Documented by: Oxycodone HCl (Roxicodone -) 10 mg PO Q6H PRN PRN Reason: PAIN LEVEL 6-10 Last Admin: 01/28/20 20:00 Dose: 10 mg Documented by: Pramipexole Dihydrochloride (Mirapex -) 0.25 mg PO BID [facility] Last Admin: 01/29/20 10:39 Dose: 0.25 mg Documented by: Rivaroxaban (Xarelto) 15 mg PO DAILY@1800 [facility] Last Admin: 01/28/20 18:28 Dose: 15 mg Documented by: ASSESSMENT AND PLAN: Paraspinal Abscess s/p drainage UTI Sepsis LV Systolic Dysfunction Atrial Fibrillation with RVR HTN DM Rheumatoid Arthritis h/o DVT/PE Hyponatremia Anemia - continue antibiotics per ID - surgery f/u - rate control - continue anticoagulation - pain control - aspiration precautions - can monitor on telemetry
--- NOTE | 2020-01-29 12:23 | PN ---
Progress Note (short form) - Note Progress Note: s: remains confused/agitated. unable to obtain HPI, ros Current Medications Generic Name Dose Route Start Last Admin Trade Name Freq PRN Reason Stop Dose Admin Alprazolam 1 mg 01/27/20 18:58 01/28/20 07:55 Xanax PO 1 mg Q12H PRN Administration ANXIETY Baclofen 10 mg 01/27/20 18:58 Lioresal - PO Q8H PRN MUSCLE SPASMS Carvedilol 12.5 mg 01/28/20 07:39 01/29/20 10:06 Coreg - PO Not Given BID [facility] Cyanocobalamin 1,000 mcg 01/28/20 10:00 01/29/20 10:39 Vitamin B12 - PO 1,000 mcg DAILY [facility] Administration Docusate Sodium 100 mg 01/27/20 18:58 Colace - PO Q8H PRN CONSTIPATION Hydrocortisone 1 applic 01/27/20 18:58 Hytone 1% Cream - TP DAILY PRN FOR ITCHING Meropenem 1 gm/ Dextrose 100 mls @ 200 mls/hr 01/28/20 03:00 01/29/20 02:41 IVPB Not Given Q12H [facility] Sodium Chloride 1,000 mls @ 50 mls/hr 01/27/20 18:58 01/28/20 17:00 Normal Saline - IV 01/31/20 14:01 50 mls/hr ASDIR [facility] Administration Daptomycin 500 mg/ Sodium 50 mls @ 100 mls/hr 01/28/20 15:30 01/28/20 15:54 Chloride IVPB Not Given Q24H [facility] Protocol Insulin Aspart 1 vial 01/27/20 22:00 01/29/20 11:02 Novolog Vial Sliding Scale - SQ 4 units ACHS [facility] Administration Protocol Lidocaine 1 patch 01/28/20 10:00 01/29/20 10:39 Lidoderm Patch - TP 1 patch DAILY [facility] Administration Miscellaneous 1 each 01/27/20 22:00 01/28/20 21:47 Lidoderm Patch Removal MC 1 each DAILY@2200 [facility] Administration Oxycodone HCl 10 mg 01/27/20 18:58 01/28/20 20:00 Roxicodone - PO 10 mg Q6H PRN Administration PAIN LEVEL 6-10 Pramipexole Dihydrochloride 0.25 mg 01/27/20 22:00 06/23/20 10:39 Mirapex - PO 0.25 mg BID [facility] Administration Rivaroxaban 15 mg 01/28/20 18:00 01/28/20 18:28 Xarelto PO 15 mg DAILY@1800 [facility] Administration Vital Signs Period Temp Pulse Resp BP Sys/Marcelo Pulse Ox Last 24 Hr 97.2 F-98.5 F 136-148 13-26 81-112/40-81 97-97 Constitutional: Yes: agitated Respiratory: CTAB anteriorly, poor effort Gastrointestinal: Yes: Soft, Abdomen, Obese Cardiovascular: Yes: Pulse Irregular, tachy, nl s1, s2, no mrg no jvd Edema: none Neurological: agitated, confused no jaundice, diaphoresis Echo: Report Reviewed ( Moderately reduced EF, Moderate MR (this admission); 2018 50-55% with mild MR) tele: afib/aflutter, rvr when agitated Imaging - Results X-ray: Image Reviewed, no sig chf Assessment/Plan IMP: Epidural abscess, wound infection Acute renal failure Hyponatremia Acute on chronic systolic CHF, with what appears to be new LV dysfx from 2018 Moderate MR Prolonged QT PAF HTN 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 REC: abd pain, epidural abscess: - manage per surgery, ID acute renal failure: -Suspect ATN due to periods of intermittent hypotension -Renal following -cr improved -pressors off now -renally dosed meds, adjusted Xarelto for now Hypotension: -pressors now off, bp still on low side today, have been holding coreg -volume depletion/sepsis likely etiology UTI, bacteremia: - manage per primary, ID chronic systolic CHF, nonischemic cardiomyopathy, moderate MR: -known nonisch CMP with normal coronaries on cath x 2 -EF has fluctuated 35-55% over the years, likely in relation to severity of untreated NICHOLE, vs ? diabetic (uncontrolled glycemic status, does not f/u with PMD despite repeatedly advised to do so) -EF moderately reduced, last echo here EF 35-40% -does not appear vol overloaded now -coreg resumed -in setting of hypotension, holding torsemide, and entresto PAF: -Cont Xarelto, dose adjust for GFR -rvr at times, likely due to agitation. coreg resumed, some doses held due to low BP - monitoring on tele DVT/PE with history of filter: -cont with AC NICHOLE: -not using CPAP
[2020-01-29] MEDS ORDERED: LORazepam 2 MG/ML SDV VIAL IM ONE (13:39)
--- NOTE | 2020-01-29 14:16 | PN ---
Progress Note (short form) - Note Progress Note: I spoke with the patient's daughter Jennifer and gave her a daily update on her mother's condition. Questions answered and she has full understanding of the patient's physical and emotional health at this moment. The patient became acutely agitated at 1:30pm, tried to stand up from bed, fall risk and was coached back into bed but this worsened the agitation to the point where she did require 2 mg IM lorazepam. Patient's PO subsequently 90/67 (MAP 70) and she is much calmer, listening to Med Badillo in the exam room and singing along. Problem List - Problems (1) Delirium Code(s): R41.0 - DISORIENTATION, UNSPECIFIED
--- NOTE | 2020-01-29 14:58 | PN ---
Progress Note, Physician - Current Medication List Current Medications: Active Medications Alprazolam (Xanax) 1 mg PO Q12H PRN PRN Reason: ANXIETY Last Admin: 01/28/20 07:55 Dose: 1 mg Documented by: Baclofen (Lioresal -) 10 mg PO Q8H PRN PRN Reason: MUSCLE SPASMS Carvedilol (Coreg -) 12.5 mg PO BID [facility] Last Admin: 01/29/20 10:06 Dose: Not Given Documented by: Cyanocobalamin (Vitamin B12 -) 1,000 mcg PO DAILY [facility] Last Admin: 01/29/20 10:39 Dose: 1,000 mcg Documented by: Docusate Sodium (Colace -) 100 mg PO Q8H PRN PRN Reason: CONSTIPATION Hydrocortisone (Hytone 1% Cream -) 1 applic TP DAILY PRN PRN Reason: FOR ITCHING Meropenem 1 gm/ Dextrose 100 mls @ 200 mls/hr IVPB Q12H [facility] Last Admin: 01/29/20 02:41 Dose: Not Given Documented by: Sodium Chloride (Normal Saline -) 1,000 mls @ 50 mls/hr IV ASDIR [facility] Stop: 01/31/20 14:01 Last Admin: 01/28/20 17:00 Dose: 50 mls/hr Documented by: Daptomycin 500 mg/ Sodium (Chloride) 50 mls @ 100 mls/hr IVPB Q24H [facility]; Protocol Last Admin: 01/28/20 15:54 Dose: Not Given Documented by: Insulin Aspart (Novolog Vial Sliding Scale -) 1 vial SQ ACHS [facility]; Protocol Last Admin: 01/29/20 11:02 Dose: 4 units Documented by: Lidocaine (Lidoderm Patch -) 1 patch TP DAILY [facility] Last Admin: 01/29/20 10:39 Dose: 1 patch Documented by: Miscellaneous (Lidoderm Patch Removal) 1 each MC DAILY@2200 [facility] Last Admin: 01/28/20 21:47 Dose: 1 each Documented by: Oxycodone HCl (Roxicodone -) 10 mg PO Q6H PRN PRN Reason: PAIN LEVEL 6-10 Last Admin: 01/28/20 20:00 Dose: 10 mg Documented by: Pramipexole Dihydrochloride (Mirapex -) 0.25 mg PO BID [facility] Last Admin: 01/29/20 10:39 Dose: 0.25 mg Documented by: Rivaroxaban (Xarelto) 15 mg PO DAILY@1800 [facility] Last Admin: 01/28/20 18:28 Dose: 15 mg Documented by: - Objective Vital Signs: Vital Signs Temperature 97.2 F L 01/29/20 10:00 Pulse Rate 140 H 01/29/20 10:00 Respiratory Rate 18 01/29/20 10:00 Blood Pressure 90/67 01/29/20 12:00 O2 Sat by Pulse Oximetry (%) 97 01/29/20 10:00 Labs: CBC, BMP 01/28/20 09:30 01/27/20 06:25 INR, PTT INR 1.57 (0.83-1.09) H 01/20/20 06:45
--- NOTE | 2020-01-29 15:26 | PN ---
Progress Note (short form) - Note Progress Note: Dr. Luis Borjas and Dr. Sreekanth Borjas did come to see the patient and spoke with the ICU team today at about noon (spoke with Brain Laughlin and myself). They physically examined the patient and viewed the lumbar CT results from yesterday's study. They also review the wound and drain cultures and state this is skin grant. They state this is very unlikely to be an abscess, state exam and CT imaging are consistent with normal post-operative changes. They are not recommending any operative management at this time. They recommend clamping the remaining drain for 24-48 hours and, if no drainage outside of the drain, they state we can call IR to have the drain removed. Will ensure we f/u Dr. Borjas's progress update from today to review recommendations. Problem List - Problems (1) Delirium Code(s): R41.0 - DISORIENTATION, UNSPECIFIED
[2020-01-29] MEDS: DAPTOMYCIN 500 MG in SODIUM CHLORIDE 50 ML IVPB SCH (17:32)
[2020-01-29] MEDS: AMINO ACIDS/PROTEIN HYDROLYS 30 ML LIQUID.PKT PO SCH (17:39)
[2020-01-29] MEDS: RIVAROXABAN 15 MG TABLET PO SCH (17:43)
[2020-01-29] MEDS: SODIUM CHLORIDE 1,000 ML IV SCH (18:22)
[2020-01-29] MEDS: LIDOCAINE PATCH REMOVAL MC SCH (21:43)
[2020-01-29] MEDS ORDERED: diazePAM CARPU-JECT 10 MG/2 ML DISP.SYRIN IM ONE (21:53)
[2020-01-29] MEDS ORDERED: diazePAM CARPU-JECT 10 MG/2 ML DISP.SYRIN IM PRN (22:21)
[2020-01-30] MEDS: MEROPENEM 1 GM in DEXTROSE 5%-WATER 100 ML IVPB SCH ×3 (05:48→21:30)
[2020-01-30] MEDS: INSULIN SLIDING SCALE (NOVOLOG) 1 VIAL SQ SCH ×3 (06:38→17:03)
[2020-01-30] MEDS: oxyCODONE HCL 5 MG TABLET PO PRN ×2 (07:30→14:52)
[2020-01-30] MEDS ORDERED: CARVEDILOL 12.5 MG TABLET (FP) PO ONE (08:46)
[2020-01-30] MEDS ORDERED: CARVEDILOL 25 MG TABLET (FP) PO SCH (08:48)
--- NOTE | 2020-01-30 08:48 | PN ---
Progress Note (short form) - Note Progress Note: Patient seen yesterday in ICU Fully orientated for time person and place General medical status stable Complaining of vague lateral abdominal pain left and right no nausea or vomiting passing stool and flatus General medical parameters as per chart On examination apyrexial Spinal wound completely sealed no surrounding erythema or tenderness no fluctuant swelling or mass pigtail catheter insitu Neuro assessment as at baseline Ortho Right trochanteric bursitis persists Assessment: Patient being managed by medical team for GI related issues orthopedic assessment revealed well healed wound over a known cavity extending to the epidural space drainage with pigtail catherter to continue depending on the planned clamping of the catheter and reevaluating in 48 hrs. If no problem after that period of clamping D/C discontinuation of the catheter. Will follow
[2020-01-30] MEDS ORDERED: PT OWN MED DRAWER 7, Y5N ONE ×4 (08:57→16:08)
[2020-01-30] MEDS: AMINO ACIDS/PROTEIN HYDROLYS 30 ML LIQUID.PKT PO SCH ×2 (08:59→17:03)
[2020-01-30] MEDS: CARVEDILOL 12.5 MG TABLET (FP) PO SCH (08:59)
[2020-01-30] MEDS: LIDOCAINE 5% TOPICAL PATCH TP SCH (09:00)
[2020-01-30] MEDS ORDERED: METOPROLOL TARTRATE 5 MG/5 ML VIAL IVPUSH ONE (09:00)
--- NOTE | 2020-01-30 11:03 | PN ---
Physical Exam: SUBJECTIVE: Patient seen and examined at bedside. Overnight there were no acute events. This AM she offers no new complaints. Back pain otherwise ROS NEG. OBJECTIVE: Vital Signs Period Temp Pulse Resp BP Sys/Marcelo Pulse Ox Last 24 Hr 97.8 F-98.5 F 138-151 16-26 90-114/62-81 97-99 GENERAL: elderly, alert, nontoxic-appearing, no distress, answers questions appropriately HEENT: PERRLA, EOMI, a bit dry mucous membranes NECK/BACK: no midline ttp, no spinal stepoff or deformity, no hematoma, full ROM, neck supple CARDIOVASCULAR: irregularly irregular but not tachycardic, no MGR, strong peripheral pulses, capillary refill 3 seconds, no edema LUNGS/RESPIRATORY: Lungs CTAB without focal area of decreased breath sounds GI/ABDOMEN: symmetric [id number], normoactive BS, soft, no ttp, no midline pulsatile masses : no CVA tenderness MSK/EXTREMITIES: no muscle atrophy, no acute deformity, BLE a bit cool SKIN: scattered excoriations from scratching but skin otherwise warm and dry, no pallor, no jaundice, no obvious rash NEUROLOGICAL: initially sleeping but when awakened for exam becomes precipito usly confused/agitated, however at the time of AM rounds she is much calmer and content, slightly drowsy but alert and answering questions and coherent, GCS 15, CN II-XII grossly intact, 5/5 strength proximally and distally, no facial droop Active Medications Generic Name Dose Route Start Last Admin Trade Name Freq PRN Reason Stop Dose Admin Alprazolam 1 mg 01/27/20 18:58 01/28/20 07:55 Xanax PO 1 mg Q12H PRN Administration ANXIETY Amino Acids 30 ml 01/29/20 17:30 01/30/20 08:59 Prosource No Carb Liquid Pkt PO 30 ml BID@0800,1730 [facility] Administration Baclofen 10 mg 01/27/20 18:58 Lioresal - PO Q8H PRN MUSCLE SPASMS Carvedilol 25 mg 01/30/20 08:48 Coreg - PO BID [facility] Cyanocobalamin 1,000 mcg 01/28/20 10:00 01/29/20 10:39 Vitamin B12 - PO 1,000 mcg DAILY [facility] Administration Diazepam 5 mg 01/29/20 22:21 Valium Injection - IM ONCE PRN AGITATION Docusate Sodium 100 mg 01/27/20 18:58 Colace - PO Q8H PRN CONSTIPATION Hydrocortisone 1 applic 01/27/20 18:58 Hytone 1% Cream - TP DAILY PRN FOR ITCHING Sodium Chloride 1,000 mls @ 50 mls/hr 01/27/20 18:58 01/29/20 18:22 Normal Saline - IV 01/31/20 14:01 Not Given ASDIR L[facility] Daptomycin 500 mg/ Sodium 50 mls @ 100 mls/hr 01/28/20 15:30 01/29/20 17:32 Chloride IVPB Not Given Q24H [facility] Protocol Meropenem 1 gm/ Dextrose 100 mls @ 200 mls/hr 01/30/20 08:15 01/30/20 08:59 IVPB 200 mls/hr Q12H [facility] Administration Insulin Aspart 1 vial 01/27/20 22:00 01/30/20 06:38 Novolog Vial Sliding Scale - SQ Not Given ACHS [facility] Protocol Lidocaine 1 patch 01/28/20 10:00 01/30/20 09:00 Lidoderm Patch - TP 1 patch DAILY [facility] Administration Miscellaneous 1 each 01/27/20 22:00 01/29/20 21:43 Lidoderm Patch Removal MC 1 each DAILY@2200 [facility] Administration Oxycodone HCl 10 mg 01/27/20 18:58 01/30/20 07:30 Roxicodone - PO 10 mg Q6H PRN Administration PAIN LEVEL 6-10 Pramipexole Dihydrochloride 0.25 mg 01/27/20 22:00 01/29/20 21:43 Mirapex - PO Not Given BID [facility] Rivaroxaban 15 mg 01/28/20 18:00 01/29/20 17:43 Xarelto PO 15 mg DAILY@1800 [facility] Administration ASSESSMENT/PLAN: 74 y/o female PMH CHF (EF 35-40%), RA, DM 2, HTN, Hx DVT/PE, a fib (on Xarelto), known non-ischemic cardiomyopathy, multiple spine surgeries, s/p L4/5 laminectomy then L5/S1 seroma with recent epidural abscess drainage s/p I and D, complex wound closure and wound vac placement 11/26-s/p IV abx who presented to ED 6/13/20 for weakness and malaise x4 days. # NEURO: Increased confusion, agitation, delirium Baclofen instead of Valium for muscle spasm Minimize oxycodone - Tylenol first Frequent re-orientation Soft restraints as needed if pulling at lines/drains or scratching causing excoriations # ENDOCRINE: DM ISS # CVS: Chronic AF, CHF Xarelto Cardizem Metoprolol tartrate 5 mg q6h # RESP: Covid NEG # RENAL/: ELIZABETH UO 1,100 Cr 0.9 # ID: sepsis UTI Meropenem and daptomycin # MSK: Spinal surgery, seroma, epidural abscess drainage # FEN PO Monitor and replete electrolytes DM/low na diet # PPX Xarelto # DISPOSTION Transfer to telemetry Full code Visit type - Emergency Visit Emergency Visit: No - New Patient This patient is new to me today: No - Critical Care Critical Care patient: Yes Total Critical Care Time (in minutes): 35 Critical Care Statement: The care of this patient involved high complexity deci levy making to prevent further life threatening deterioration of the patient's condition and/or to evaluate & treat vital organ system(s) failure or risk of failure. ATTENDING PHYSICIAN STATEMENT I saw and evaluated the patient. I reviewed the resident's note and discussed the case with the resident. I agree with the resident's findings and plan as documented. SUBJECTIVE: OBJECTIVE: ASSESSMENT AND PLAN:
[2020-01-30] MEDS: CYANOCOBALAMIN 1,000 MCG TABLET (FP) PO SCH (11:05)
[2020-01-30] MEDS: PRAMIPEXOLE DIHYDROCHLORIDE 0.25 MG TABLET PO SCH (11:05)
--- NOTE | 2020-01-30 11:19 | PN ---
Teaching Attending Note Name of Resident: Naresh Jaramillo ATTENDING PHYSICIAN STATEMENT I saw and evaluated the patient. I reviewed the resident's note and discussed the case with the resident. I agree with the resident's findings and plan as documented. UBJECTIVE: Pt seen and examined in the ICU. Mental status improving. No fevers recorded, denies back pain. Heart rates uncontrolled. OBJECTIVE: Vital Signs Period Temp Pulse Resp BP Sys/Marcelo Pulse Ox Last 24 Hr 97.8 F-98.5 F 138-151 16-26 90-114/62-81 97-99 Intake & Output 01/27/20 01/28/20 01/29/20 01/30/20 23:59 23:59 23:59 23:59 Intake Total 1710 600 30 50 Output Total 1350 1000 1100 Balance 360 -400 -1070 50 Weight 89.84 kg 89.3 kg 89.358 kg Gen: more alert Heart: tachycardic, regular Lung: decreased breath sounds at the bases Abd: soft, nontender Ext: no edema CBC, BMP 01/28/20 09:30 Active Medications Alprazolam (Xanax) 1 mg PO Q12H PRN PRN Reason: ANXIETY Last Admin: 01/28/20 07:55 Dose: 1 mg Documented by: Amino Acids (Prosource No Carb Liquid Pkt) 30 ml PO BID@0800,1730 [facility] Last Admin: 01/30/20 08:59 Dose: 30 ml Documented by: Baclofen (Lioresal -) 10 mg PO Q8H PRN PRN Reason: MUSCLE SPASMS Last Admin: 01/30/20 11:05 Dose: 10 mg Documented by: Carvedilol (Coreg -) 25 mg PO BID [facility] Cyanocobalamin (Vitamin B12 -) 1,000 mcg PO DAILY [facility] Last Admin: 01/30/20 11:05 Dose: 1,000 mcg Documented by: Diazepam (Valium Injection -) 5 mg IM ONCE PRN PRN Reason: AGITATION Docusate Sodium (Colace -) 100 mg PO Q8H PRN PRN Reason: CONSTIPATION Hydrocortisone (Hytone 1% Cream -) 1 applic TP DAILY PRN PRN Reason: FOR ITCHING Sodium Chloride (Normal Saline -) 1,000 mls @ 50 mls/hr IV ASDIR [facility] Stop: 01/31/20 14:01 Last Admin: 01/29/20 18:22 Dose: Not Given Documented by: Daptomycin 500 mg/ Sodium (Chloride) 50 mls @ 100 mls/hr IVPB Q24H [facility]; Protocol Last Admin: 01/29/20 17:32 Dose: Not Given Documented by: Meropenem 1 gm/ Dextrose 100 mls @ 200 mls/hr IVPB Q12H [facility] Last Admin: 01/30/20 08:59 Dose: 200 mls/hr Documented by: Insulin Aspart (Novolog Vial Sliding Scale -) 1 vial SQ ACHS [facility]; Protocol Last Admin: 01/30/20 06:38 Dose: Not Given Documented by: Lidocaine (Lidoderm Patch -) 1 patch TP DAILY [facility] Last Admin: 01/30/20 09:00 Dose: 1 patch Documented by: Miscellaneous (Lidoderm Patch Removal) 1 each MC DAILY@2200 [facility] Last Admin: 01/29/20 21:43 Dose: 1 each Documented by: Oxycodone HCl (Roxicodone -) 10 mg PO Q6H PRN PRN Reason: PAIN LEVEL 6-10 Last Admin: 01/30/20 07:30 Dose: 10 mg Documented by: Pramipexole Dihydrochloride (Mirapex -) 0.25 mg PO BID [facility] Last Admin: 01/30/20 11:05 Dose: 0.25 mg Documented by: Rivaroxaban (Xarelto) 15 mg PO DAILY@1800 [facility] Last Admin: 01/29/20 17:43 Dose: 15 mg Documented by: ASSESSMENT AND PLAN: r/o Paraspinal Abscess s/p drainage UTI Sepsis LV Systolic Dysfunction Atrial Fibrillation with RVR HTN DM Rheumatoid Arthritis h/o DVT/PE Hyponatremia Anemia - continue antibiotics per ID - rate control - continue anticoagulation - pain control - aspiration precautions - can monitor on telemetry
[2020-01-30 11:41] LABS: ALBUMIN 2.4 g/dl (3.4-5.0); BILIRUBIN,TOTAL 0.4 mg/dL (0.2-1); BLOOD UREA NITROGEN 38.3 mg/dL (7-18); CALCIUM 8.6 mg/dL (8.5-10.1); CREATININE 0.9 mg/dL (0.55-1.3); POTASSIUM 5.2 mmol/L (3.5-5.1); TOT PROT 6.2 g/dl (6.4-8.2)
[2020-01-30] MEDS ORDERED: METOPROLOL TARTRATE 5 MG/5 ML VIAL IVPUSH PRN (12:19)
--- NOTE | 2020-01-30 12:20 | PN ---
Progress Note (short form) - Note Progress Note: Patient seen yesterday in ICU Fully oriented to person, place, and time General medical status stable Complaining of vague lateral abdominal pain left and right no nausea or vomiting passing stool and flatus General medical parameters as per chart On examination apyrexial Spinal wound completely sealed no surrounding erythema or tenderness no fluctuant swelling or mass pigtail catheter in-situ Neuro assessment as at baseline Ortho Right trochanteric bursitis persists Assessment: Patient being managed by medical team for GI related issues orthopedic assessment revealed well healed wound over a known cavity extending to the epidural space drainage with pigtail catherter to continue depending on the planned clamping of the catheter and reevaluating in 48 hrs. If no problem after that period of clamping, IR team to discontinue/remove the catheter. Will follow No need for any surgical intervention at this time.
--- NOTE | 2020-01-30 12:49 | PN ---
Progress Note, Physician History of Present Illness: mental status better today still confused tachy - Current Medication List Current Medications: Active Medications Alprazolam (Xanax) 1 mg PO Q12H PRN PRN Reason: ANXIETY Last Admin: 01/28/20 07:55 Dose: 1 mg Documented by: Amino Acids (Prosource No Carb Liquid Pkt) 30 ml PO BID@0800,1730 [facility] Last Admin: 01/30/20 08:59 Dose: 30 ml Documented by: Baclofen (Lioresal -) 10 mg PO Q8H PRN PRN Reason: MUSCLE SPASMS Last Admin: 01/30/20 11:05 Dose: 10 mg Documented by: Cyanocobalamin (Vitamin B12 -) 1,000 mcg PO DAILY [facility] Last Admin: 01/30/20 11:05 Dose: 1,000 mcg Documented by: Diazepam (Valium Injection -) 5 mg IM ONCE PRN PRN Reason: AGITATION Docusate Sodium (Colace -) 100 mg PO Q8H PRN PRN Reason: CONSTIPATION Hydrocortisone (Hytone 1% Cream -) 1 applic TP DAILY PRN PRN Reason: FOR ITCHING Sodium Chloride (Normal Saline -) 1,000 mls @ 50 mls/hr IV ASDIR [facility] Stop: 01/31/20 14:01 Last Admin: 01/29/20 18:22 Dose: Not Given Documented by: Daptomycin 500 mg/ Sodium (Chloride) 50 mls @ 100 mls/hr IVPB Q24H [facility]; Protocol Last Admin: 01/29/20 17:32 Dose: Not Given Documented by: Meropenem 1 gm/ Dextrose 100 mls @ 200 mls/hr IVPB Q12H [facility] Last Admin: 01/30/20 08:59 Dose: 200 mls/hr Documented by: Insulin Aspart (Novolog Vial Sliding Scale -) 1 vial SQ ACHS [facility]; Protocol Last Admin: 01/30/20 11:38 Dose: 6 units Documented by: Lidocaine (Lidoderm Patch -) 1 patch TP DAILY [facility] Last Admin: 01/30/20 09:00 Dose: 1 patch Documented by: Metoprolol Tartrate (Lopressor Injection -) 5 mg IVPUSH Q6H PRN PRN Reason: HYPERTENSION Miscellaneous (Lidoderm Patch Removal) 1 each MC DAILY@2200 [facility] Last Admin: 06/23/20 21:43 Dose: 1 each Documented by: Oxycodone HCl (Roxicodone -) 10 mg PO Q6H PRN PRN Reason: PAIN LEVEL 6-10 Last Admin: 01/30/20 07:30 Dose: 10 mg Documented by: Pramipexole Dihydrochloride (Mirapex -) 0.25 mg PO BID [facility] Last Admin: 01/30/20 11:05 Dose: 0.25 mg Documented by: Rivaroxaban (Xarelto) 15 mg PO DAILY@1800 [facility] Last Admin: 01/29/20 17:43 Dose: 15 mg Documented by: - Objective Vital Signs: Vital Signs Temperature 98 F 01/30/20 10:00 Pulse Rate 146 H 01/30/20 12:00 Respiratory Rate 16 01/30/20 12:00 Blood Pressure 106/76 01/30/20 12:00 O2 Sat by Pulse Oximetry (%) 99 01/29/20 21:00 Constitutional: Yes: Other Cardiovascular: Yes: Tachycardia, S1, S2 Respiratory: Yes: Regular, CTA Bilaterally Gastrointestinal: Yes: Normal Bowel Sounds, Soft Musculoskeletal: Yes: Back Pain, Other (pig tail catheter in place) Extremities: Yes: Other Integumentary: Yes: Other Wound/Incision: Yes: Clean/Dry Neurological: Yes: Alert, Confusion Psychiatric: Yes: Alert, Other Labs: CBC, BMP 01/28/20 09:30 01/30/20 11:00 INR, PTT INR 1.57 (0.83-1.09) H 01/20/20 06:45 Assessment/Plan roble List - Problems (1) UTI (urinary tract infection) Code(s): N39.0 - URINARY TRACT INFECTION, SITE NOT SPECIFIED (2) Epidural abscess Code(s): G06.2 - EXTRADURAL AND SUBDURAL ABSCESS, UNSPECIFIED (3) Chronic systolic heart failure Code(s): I50.22 - CHRONIC SYSTOLIC (CONGESTIVE) HEART FAILURE (4) Diabetes Code(s): E11.9 - TYPE 2 DIABETES MELLITUS WITHOUT COMPLICATIONS Qualifiers: Diabetes mellitus type: type 2 (5) History of DVT (deep vein thrombosis) Code(s): Z86.718 - PERSONAL HISTORY OF OTHER VENOUS THROMBOSIS AND EMBOLISM (6) Hypertension Code(s): I10 - ESSENTIAL (PRIMARY) HYPERTENSION (7) Non-ischemic cardiomyopathy Code(s): I42.9 - CARDIOMYOPATHY, UNSPECIFIED (8) Obstructive sleep apnea Code(s): G47.33 - OBSTRUCTIVE SLEEP APNEA (ADULT) (PEDIATRIC) Assessment/Plan Bacteremia UTI Epidural abscess - s/p drainage/DASH in place DM CHF Hx of DVT AFIB continue meropenam dapto renal on board monitor renal function monitor drainage rest as per icu i would suggest reimaging of the back to see the status of collection cc 38 min
--- NOTE | 2020-01-30 13:21 | PN ---
Progress Note, Physician History of Present Illness: Pt seen and examined at bedside. She remains confused. - Current Medication List Current Medications: Active Medications Alprazolam (Xanax) 1 mg PO Q12H PRN PRN Reason: ANXIETY Last Admin: 01/28/20 07:55 Dose: 1 mg Documented by: Amino Acids (Prosource No Carb Liquid Pkt) 30 ml PO BID@0800,1730 [facility] Last Admin: 01/30/20 08:59 Dose: 30 ml Documented by: Baclofen (Lioresal -) 10 mg PO Q8H PRN PRN Reason: MUSCLE SPASMS Last Admin: 01/30/20 11:05 Dose: 10 mg Documented by: Cyanocobalamin (Vitamin B12 -) 1,000 mcg PO DAILY [facility] Last Admin: 01/30/20 11:05 Dose: 1,000 mcg Documented by: Diazepam (Valium Injection -) 5 mg IM ONCE PRN PRN Reason: AGITATION Docusate Sodium (Colace -) 100 mg PO Q8H PRN PRN Reason: CONSTIPATION Hydrocortisone (Hytone 1% Cream -) 1 applic TP DAILY PRN PRN Reason: FOR ITCHING Sodium Chloride (Normal Saline -) 1,000 mls @ 50 mls/hr IV ASDIR [facility] Stop: 01/31/20 14:01 Last Admin: 01/29/20 18:22 Dose: Not Given Documented by: Daptomycin 500 mg/ Sodium (Chloride) 50 mls @ 100 mls/hr IVPB Q24H [facility]; Protocol Last Admin: 01/29/20 17:32 Dose: Not Given Documented by: Meropenem 1 gm/ Dextrose 100 mls @ 200 mls/hr IVPB Q12H [facility] Last Admin: 01/30/20 08:59 Dose: 200 mls/hr Documented by: Insulin Aspart (Novolog Vial Sliding Scale -) 1 vial SQ ACHS [facility]; Protocol Last Admin: 01/30/20 11:38 Dose: 6 units Documented by: Lidocaine (Lidoderm Patch -) 1 patch TP DAILY [facility] Last Admin: 01/30/20 09:00 Dose: 1 patch Documented by: Metoprolol Tartrate (Lopressor Injection -) 5 mg IVPUSH Q6H PRN PRN Reason: HYPERTENSION Last Admin: 01/30/20 13:01 Dose: 5 mg Documented by: Miscellaneous (Lidoderm Patch Removal) 1 each MC DAILY@2200 [facility] Last Admin: 01/29/20 21:43 Dose: 1 each Documented by: Oxycodone HCl (Roxicodone -) 10 mg PO Q6H PRN PRN Reason: PAIN LEVEL 6-10 Last Admin: 01/30/20 07:30 Dose: 10 mg Documented by: Pramipexole Dihydrochloride (Mirapex -) 0.25 mg PO BID [facility] Last Admin: 01/30/20 11:05 Dose: 0.25 mg Documented by: Rivaroxaban (Xarelto) 15 mg PO DAILY@1800 [facility] Last Admin: 01/29/20 17:43 Dose: 15 mg Documented by: - Objective Vital Signs: Vital Signs Temperature 98 F 01/30/20 10:00 Pulse Rate 143 H 01/30/20 13:01 Respiratory Rate 16 01/30/20 12:00 Blood Pressure 109/76 01/30/20 13:01 O2 Sat by Pulse Oximetry (%) 99 01/29/20 21:00 Constitutional: Yes: Anxious Eyes: Yes: Conjunctiva Clear HENT: Yes: Atraumatic Neck: Yes: Supple Cardiovascular: Yes: S1, S2 Respiratory: Yes: CTA Bilaterally Gastrointestinal: Yes: Soft Genitourinary: Yes: Incontinence Edema: No Neurological: Yes: Confusion Psychiatric: Yes: Agitated Labs: CBC, BMP 01/28/20 09:30 01/30/20 11:00 INR, PTT INR 1.57 (0.83-1.09) H 01/20/20 06:45 Problem List - Problems (1) ELIZABETH (acute kidney injury) Code(s): N17.9 - ACUTE KIDNEY FAILURE, UNSPECIFIED Assessment/Plan Current Medications Generic Name Dose Route Start Last Admin Trade Name Freq PRN Reason Stop Dose Admin Alprazolam 1 mg 01/27/20 18:58 01/28/20 07:55 Xanax PO 1 mg Q12H PRN Administration ANXIETY Amino Acids 30 ml 01/29/20 17:30 01/30/20 08:59 Prosource No Carb Liquid Pkt PO 30 ml BID@0800,1730 [facility] Administration Baclofen 10 mg 01/27/20 18:58 01/30/20 11:05 Lioresal - PO 10 mg Q8H PRN Administration MUSCLE SPASMS Cyanocobalamin 1,000 mcg 01/28/20 10:00 01/30/20 11:05 Vitamin B12 - PO 1,000 mcg DAILY [facility] Administration Diazepam 5 mg 01/29/20 22:21 Valium Injection - IM ONCE PRN AGITATION Docusate Sodium 100 mg 01/27/20 18:58 Colace - PO Q8H PRN CONSTIPATION Hydrocortisone 1 applic 01/27/20 18:58 Hytone 1% Cream - TP DAILY PRN FOR ITCHING Sodium Chloride 1,000 mls @ 50 mls/hr 01/27/20 18:58 01/29/20 18:22 Normal Saline - IV 01/31/20 14:01 Not Given ASDIR [facility] Daptomycin 500 mg/ Sodium 50 mls @ 100 mls/hr 01/28/20 15:30 01/29/20 17:32 Chloride IVPB Not Given Q24H [facility] Protocol Meropenem 1 gm/ Dextrose 100 mls @ 200 mls/hr 01/30/20 08:15 01/30/20 08:59 IVPB 200 mls/hr Q12H [facility] Administration Insulin Aspart 1 vial 01/27/20 22:00 01/30/20 11:38 Novolog Vial Sliding Scale - SQ 6 units ACHS [facility] Administration Protocol Lidocaine 1 patch 01/28/20 10:00 01/30/20 09:00 Lidoderm Patch - TP 1 patch DAILY [facility] Administration Metoprolol Tartrate 5 mg 01/30/20 12:19 01/30/20 13:01 Lopressor Injection - IVPUSH 5 mg Q6H PRN Administration HYPERTENSION Miscellaneous 1 each 01/27/20 22:00 01/29/20 21:43 Lidoderm Patch Removal MC 1 each DAILY@2200 [facility] Administration Oxycodone HCl 10 mg 01/27/20 18:58 01/30/20 07:30 Roxicodone - PO 10 mg Q6H PRN Administration PAIN LEVEL 6-10 Pramipexole Dihydrochloride 0.25 mg 01/27/20 22:00 01/30/20 11:05 Mirapex - PO 0.25 mg BID [facility] Administration Rivaroxaban 15 mg 01/28/20 18:00 01/29/20 17:43 Xarelto PO 15 mg DAILY@1800 [facility] Administration Sodium Zirconium Cyclosilicate 10 gm 01/30/20 13:30 Lokelma PO 01/31/20 10:01 DAILY [facility] Impressin 1. ELIZABETH 2. sepsis 3. shock 4. CHF 5. hx of htn 6. epidural abscess 7. ut 8. a-fib 9. hyponatremia Plan - renal function is improving - potassium elevated - will give lokelma - pt remains agitated - monitor bp - avoid nsaids - renal dose meds - discussed with ICU team
--- NOTE | 2020-01-30 14:00 | PN ---
Progress Note (short form) - Note Progress Note: s: remains confused/agitated. unable to obtain HPI, ros Current Medications Generic Name Dose Route Start Last Admin Trade Name Freq PRN Reason Stop Dose Admin Alprazolam 1 mg 01/27/20 18:58 01/28/20 07:55 Xanax PO 1 mg Q12H PRN Administration ANXIETY Amino Acids 30 ml 01/29/20 17:30 01/30/20 08:59 Prosource No Carb Liquid Pkt PO 30 ml BID@0800,1730 [facility] Administration Baclofen 10 mg 01/27/20 18:58 01/30/20 11:05 Lioresal - PO 10 mg Q8H PRN Administration MUSCLE SPASMS Cyanocobalamin 1,000 mcg 01/28/20 10:00 01/30/20 11:05 Vitamin B12 - PO 1,000 mcg DAILY [facility] Administration Diazepam 5 mg 01/29/20 22:21 Valium Injection - IM ONCE PRN AGITATION Docusate Sodium 100 mg 01/27/20 18:58 Colace - PO Q8H PRN CONSTIPATION Hydrocortisone 1 applic 01/27/20 18:58 Hytone 1% Cream - TP DAILY PRN FOR ITCHING Sodium Chloride 1,000 mls @ 50 mls/hr 01/27/20 18:58 01/29/20 18:22 Normal Saline - IV 01/31/20 14:01 Not Given ASDIR [facility] Daptomycin 500 mg/ Sodium 50 mls @ 100 mls/hr 01/28/20 15:30 01/29/20 17:32 Chloride IVPB Not Given Q24H [facility] Protocol Meropenem 1 gm/ Dextrose 100 mls @ 200 mls/hr 01/30/20 08:15 01/30/20 08:59 IVPB 200 mls/hr Q12H [facility] Administration Insulin Aspart 1 vial 01/27/20 22:00 01/30/20 11:38 Novolog Vial Sliding Scale - SQ 6 units ACHS [facility] Administration Protocol Lidocaine 1 patch 01/28/20 10:00 01/30/20 09:00 Lidoderm Patch - TP 1 patch DAILY [facility] Administration Metoprolol Tartrate 5 mg 01/30/20 12:19 01/30/20 13:01 Lopressor Injection - IVPUSH 5 mg Q6H PRN Administration HYPERTENSION Miscellaneous 1 each 01/27/20 22:00 01/29/20 21:43 Lidoderm Patch Removal MC 1 each DAILY@2200 [facility] Administration Oxycodone HCl 10 mg 01/27/20 18:58 01/30/20 07:30 Roxicodone - PO 10 mg Q6H PRN Administration PAIN LEVEL 6-10 Pramipexole Dihydrochloride 0.25 mg 01/27/20 22:00 01/30/20 11:05 Mirapex - PO 0.25 mg BID [facility] Administration Rivaroxaban 15 mg 01/28/20 18:00 01/29/20 17:43 Xarelto PO 15 mg DAILY@1800 [facility] Administration Sodium Zirconium Cyclosilicate 10 gm 01/30/20 13:30 Lokelma PO 01/31/20 10:01 DAILY [facility] Vital Signs Period Temp Pulse Resp BP Sys/Marcelo Pulse Ox Last 24 Hr 97.8 F-98.5 F 138-151 16-26 92-125/62-81 97-99 Constitutional: Yes: agitated Respiratory: CTAB anteriorly, poor effort Gastrointestinal: Yes: Soft, Abdomen, Obese Cardiovascular: Yes: Pulse Irregular, tachy, nl s1, s2, no mrg no jvd Edema: none Neurological: agitated, confused no jaundice, diaphoresis Echo: Report Reviewed ( Moderately reduced EF, Moderate MR (this admission); 2018 50-55% with mild MR) tele: afib/aflutter, rvr when agitated Imaging - Results X-ray: Image Reviewed, no sig chf Assessment/Plan IMP: Epidural abscess, wound infection Acute renal failure Hyponatremia Acute on chronic systolic CHF, with what appears to be new LV dysfx from 2018 Moderate MR Prolonged QT PAF HTN 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 REC: abd pain, epidural abscess: - manage per surgery, ID acute renal failure: -Suspect ATN due to periods of intermittent hypotension -Renal following -cr improved -pressors off now -renally dosed meds, adjusted Xarelto for now Hypotension: -bp still on low side, have been holding coreg -volume depletion/sepsis likely etiology UTI, bacteremia: - manage per primary, ID chronic systolic CHF, nonischemic cardiomyopathy, moderate MR: -known nonisch CMP with normal coronaries on cath x 2 -EF has fluctuated 35-55% over the years, likely in relation to severity of untreated NICHOLE, vs ? diabetic (uncontrolled glycemic status, does not f/u with PMD despite repeatedly advised to do so) -EF moderately reduced, last echo here EF 35-40% -does not appear vol overloaded now -cont bb -in setting of hypotension, holding torsemide, and entresto PAF: - Cont Xarelto, dose adjust for GFR - rvr at times, likely due to agitation - coreg held frequently for low BP - can consider digoxin, however often refusing labs would be difficult to monitor - also refusing PO meds at times - would give metoprolol 5 mg IV PRN - monitoring on tele DVT/PE with history of filter: -cont with AC NICHOLE: -not using CPAP
[2020-01-30] MEDS ORDERED: DIGOXIN 0.5 MG/2 ML AMPUL IVPUSH ONE ×2 (14:01→14:30)
[2020-01-30] MEDS: DAPTOMYCIN 500 MG in SODIUM CHLORIDE 50 ML IVPB SCH (14:52)
[2020-01-30] MEDS: SODIUM ZIRCONIUM CYCLOSILICATE (LOKELMA) 5 GM PACKET PO SCH (16:04)
[2020-01-30] MEDS: RIVAROXABAN 15 MG TABLET PO SCH (17:03)
[2020-01-30] MEDS: LIDOCAINE PATCH REMOVAL MC SCH (21:30)
[2020-01-31] MEDS ORDERED: PT OWN MED DRAWER 7, Y5N ONE ×2 (03:32→03:45)
[2020-01-31] MEDS: PRAMIPEXOLE DIHYDROCHLORIDE 0.25 MG TABLET PO SCH ×3 (03:37→22:31)
[2020-01-31] MEDS: INSULIN SLIDING SCALE (NOVOLOG) 1 VIAL SQ SCH ×5 (03:37→22:46)
[2020-01-31] MEDS: SODIUM CHLORIDE 1,000 ML IV SCH (03:42)
--- NOTE | 2020-01-31 08:35 | PN ---
Progress Note (short form) - Note Progress Note: HD#12 OVERNIGHT EVENTS Pulled PIV out again while in an episode of confusion overnight, but less agitated than usual in general last night and did not require any IM or IV sedating meds overnight. Given IV push of digoxin last night and converted to NSR. OBJECTIVE Vital Signs Temp 98.4 F 01/31/20 02:00 Pulse 72 01/31/20 06:00 Resp 17 01/31/20 04:00 BP 125/80 01/31/20 04:00 Pulse Ox 99 01/29/20 21:00 Intake & Output 01/30/20 01/30/20 01/31/20 11:59 23:59 11:59 Intake Total 50 1160 50 Output Total 2 Balance 50 1158 50 Weight 89.358 kg 89.358 kg Intake: IV 600 SL 600 IVPB 150 Oral 50 410 50 Output: Urine 2 Void 2 Other: Voiding Method Incontinent Incontinent # Unmeasured Voids Hines 1 Bowel Movement Yes No # Bowel Movements 1 Weight Measurement Method [facility] in [facility] LINES: None TUBES: None DRAINS: Hines, surgical wound drian SUPPLEMENTAL O2: NC EXAM GENERAL: elderly, alert, nontoxic-appearing, calm, sleeping, no distress, answers questions appropriately HEENT: PERRLA, EOMI, a bit dry mucous membranes NECK/BACK: no midline ttp, no spinal stepoff or deformity, no hematoma, full ROM, neck supple CARDIOVASCULAR: sinus rhythm rate in the 80s, no MGR, strong peripheral pulses, capillary refill 3 seconds, no edema LUNGS/RESPIRATORY: Lungs CTAB without focal area of decreased breath sounds GI/ABDOMEN: symmetric [id number], normoactive BS, soft, no ttp, no midline pulsatile masses : no CVA tenderness MSK/EXTREMITIES: no muscle atrophy, no acute deformity, surgical wound dressing on back without soak-through or active drainage seen SKIN: scattered excoriations from scratching but skin otherwise warm and dry, no pallor, no jaundice, no obvious rash NEUROLOGICAL: calm and sleeping, GCS 15, CN II-XII grossly intact, 5/5 strength proximally and distally, no facial droop DRIPS: None ANTI-INFECTIVES: Daptomycin, Meropenem CBCD WBC 9.8 K/mm3 (4.0-10.0) 01/28/20 09:30 RBC 4.24 M/mm3 (3.60-5.2) 01/28/20 09:30 Hgb 11.4 GM/dL (10.7-15.3) 01/28/20 09:30 Hct 36.1 % (32.4-45.2) 01/28/20 09:30 MCV 85.2 fl (80-96) 01/28/20 09:30 MCHC 31.5 g/dl (32.0-36.0) L 01/28/20 09:30 RDW 18.6 % (11.6-15.6) H 01/28/20 09:30 Plt Count 375 K/MM3 (134-434) 01/28/20 09:30 MPV 7.8 fl (7.5-11.1) 01/28/20 09:30 CMP Sodium 136 mmol/L (136-145) 01/30/20 11:00 Potassium 5.2 mmol/L (3.5-5.1) H 01/30/20 11:00 Chloride 108 mmol/L (98-107) H 01/30/20 11:00 Carbon Dioxide 21 mmol/L (21-32) 01/30/20 11:00 Anion Gap 7 MMOL/L (8-16) L 01/30/20 11:00 BUN 38.3 mg/dL (7-18) H 01/30/20 11:00 Creatinine 0.9 mg/dL (0.55-1.3) 01/30/20 11:00 Random Glucose 257 mg/dL (74-106) H 01/30/20 11:00 Calcium 8.6 mg/dL (8.5-10.1) 01/30/20 11:00 Total Bilirubin 0.4 mg/dL (0.2-1) 01/30/20 11:00 AST 13 U/L (15-37) L 01/30/20 11:00 ALT 14 U/L (13-61) 01/30/20 11:00 Alkaline Phosphatase 135 U/L (45-117) H 01/30/20 11:00 Total Protein 6.2 g/dl (6.4-8.2) L 01/30/20 11:00 Albumin 2.4 g/dl (3.4-5.0) L 01/30/20 11:00 CARDIAC ENZYMES Creatine Kinase 203 U/L (26-192) H 01/27/20 06:25 Troponin I < 0.02 ng/ml (0.00-0.05) 01/24/20 20:08 Microbiology 01/24/20 05:30 Blood - Peripheral Venous Blood Culture - Final NO GROWTH AFTER 5 DAYS INCUBATION 01/24/20 05:30 Blood - Peripheral Venous Blood Culture - Final NO GROWTH AFTER 5 DAYS INCUBATION 01/22/20 13:40 Blood - Peripheral Venous Blood Culture - Final NO GROWTH AFTER 5 DAYS INCUBATION 01/22/20 13:50 Blood - Peripheral Venous Blood Culture - Final NO GROWTH AFTER 5 DAYS INCUBATION 01/21/20 16:45 Body Fluid - Other Gram Stain - Final 01/21/20 16:45 Body Fluid - Other Body Fluid Culture - Final Staphylococcus Aureus Escherichia Coli Esbl Asthma Educator Pseudo Fluorescens/Putida Acinetobacter Lwoffii Serratia Marcescens Proteus Mirabilis Enterococcus Faecalis 01/21/20 16:45 Body Fluid - Other Anaerobic Culture - Final Prevotella Bivia 01/19/20 12:30 Blood - Peripheral Venous Blood Culture - Final Burkholderia Cepacia 01/21/20 16:40 Drainage Gram Stain - Final 01/21/20 16:40 Drainage Body Fluid Culture - Final Lactose Fermenting Neg Bacilli Group D Strep Or Entero Coccus Proteus Species Diphtheroid/Corynebacterium 01/21/20 16:40 Drainage Anaerobic Culture - Final 01/19/20 12:30 Blood - Peripheral Venous Blood Culture - Final NO GROWTH AFTER 5 DAYS INCUBATION 01/21/20 12:15 Urine - Urine Clean Catch Urine Culture - Final NO GROWTH OBTAINED 01/19/20 18:14 Urine - Urine Clean Catch Urine Culture - Final Contaminated: Please Repeat ASSESSMENT / PLAN: [id number] with h/o CHF (EF 35-40%), RA, DM 2, HTN, Hx DVT/PE, a fib (on Xarelto), known non-ischemic cardiomyopathy, multiple spine surgeries, s/p L4/[address] Borjas then L5/S1 seroma with recent epidural abscess drainage s/p I and D, complex wound closure and wound vac placement 11/26-s/p IV abx who presented to ED 01/19/20 for weakness and malaise x4 days. Found with UTI, but septic since yesterday and c/f possibility of DASH drain infection. NEURO/PSYCH: Increased confusion, agitation - likely delirium exacerbated by polypharmacy with valium + oxycodone + Baclofen -Valium 5 mg IM works well if needed for agitation -Avoid sedating medications during the day and minimize during the night -Melatonin for sleep instead of Benadryl -No Ambien -Baclofen instead of Valium for muscle spasm -Minimize oxycodone - Tylenol first -Frequent re-orientation -Window blinds retracted during the day, down all the way at night -Lights on during the day, off at night -Promote nighttime sleep with minimal noise, maximal comfort -Soft restraints as needed if pulling at lines/drains or scratching causing excoriations -Patient without known psychiatric history - will order psych consult given this prolonged course ENDOCRINE: h/o type 2 DM -ISS, FSBG TIDAC CV: Chronic AF, h/o CHF with likely exacerbation -Continue home Xarelto -Continue home Cardizem if BP allows RESP: No concerns at this time. -Continue to monitor GI: No concerns at this time. -Continue to monitor RENAL/: ELIZABETH likely ATN from hypotension (improved), hyponatremia (improving) -Renal consulting, appreciate recs -Avoid NSAIDs HEME: No concerns at this time. -Continue to monitor ID: Sepsis with C/F DASH drain infection, abscess, etc. Much improved. -ID consulting, appreciate recs -F/U BCx taken 01/23 (NGTD so far; BCx taken 01/21 final report without growth) -Continue meropenem and daptomycin -Dr. Borjas father & son saw the patient 2 days ago, following recs in note -Pulled one of her drains 3-4 days ago MSK: Recent spinal surgery, seroma, epidural abscess drainage, DASH drain placement still indwelling -Spine surgery consulting -Pigtail drain has been clamped almost 48 hours without active drainage -Will consult IR for pigtail removal DERM: Full-body itching, likely vancomycin or meropenem or daptomycin, continuing issue. Difficult to select abx given Pt's allergies. -Hydrocortisone topical prn -Famotidine prn -Careful Benadryl and Solu-Medrol (only if severe itching), may consider hydroxyzine instead of Benadryl FEN: Hyponatremia, improving -Follow chemistries -IVF: None PPX - DVT: LOUISE Chs - GI: Diabetic diet CODE STATUS: Full code DISPO PLAN: For transfer to Tele Discussed patient with ICU Attending MD Latoya So MD ICU Consult Service Problem List - Problems (1) Delirium Code(s): R41.0 - DISORIENTATION, UNSPECIFIED
[2020-01-31 10:13] LABS: ALBUMIN 2.3 g/dl (3.4-5.0); BILIRUBIN,TOTAL 0.4 mg/dL (0.2-1); BLOOD UREA NITROGEN 25.5 mg/dL (7-18); CALCIUM 8.4 mg/dL (8.5-10.1); CREATININE 0.8 mg/dL (0.55-1.3); MAGNESIUM 2.8 mg/dL (1.8-2.4); PHOSPHOROUS 3.4 mg/dL (2.5-4.9); POTASSIUM 5.3 mmol/L (3.5-5.1); TOT PROT 5.8 g/dl (6.4-8.2)
[2020-01-31] MEDS: AMINO ACIDS/PROTEIN HYDROLYS 30 ML LIQUID.PKT PO SCH ×2 (10:45→17:08)
[2020-01-31] MEDS: MEROPENEM 1 GM in DEXTROSE 5%-WATER 100 ML IVPB SCH ×2 (10:46→21:32)
[2020-01-31] MEDS: LIDOCAINE 5% TOPICAL PATCH TP SCH (10:46)
[2020-01-31] MEDS: SODIUM ZIRCONIUM CYCLOSILICATE (LOKELMA) 5 GM PACKET PO SCH ×2 (10:47→22:45)
[2020-01-31] MEDS: CYANOCOBALAMIN 1,000 MCG TABLET (FP) PO SCH (10:48)
--- NOTE | 2020-01-31 11:19 | PN ---
Teaching Attending Note Name of Resident: Latoya Michelle ATTENDING PHYSICIAN STATEMENT I saw and evaluated the patient. I reviewed the resident's note and discussed the case with the resident. I agree with the resident's findings and plan as documented. SUBJECTIVE: Pt seen and examined in the ICU. Back in sinus rhythm. No fevers recorded. Tear ful but unable to explain why. OBJECTIVE: Vital Signs Period Temp Pulse Resp BP Sys/Marcelo Pulse Ox Last 24 Hr 97.8 F-98.4 F 66-146 16-26 98-125/54-80 95 Intake & Output 01/28/20 01/29/20 01/30/20 01/31/20 23:59 23:59 23:59 23:59 Intake Total 282 00 8554 50 Output Total 1000 1100 2 Balance -400 -1070 1208 50 Weight 89.84 kg 89.3 kg 89.358 kg 89.358 kg Gen: more alert Heart: tachycardic, regular Lung: decreased breath sounds at the bases Abd: soft, nontender Ext: no edema CBC, BMP 01/28/20 09:30 01/31/20 09:30 Active Medications Amino Acids (Prosource No Carb Liquid Pkt) 30 ml PO BID@0800,1730 [facility] Last Admin: 01/31/20 10:45 Dose: Not Given Documented by: Baclofen (Lioresal -) 10 mg PO Q8H PRN PRN Reason: MUSCLE SPASMS Last Admin: 01/30/20 11:05 Dose: 10 mg Documented by: Cyanocobalamin (Vitamin B12 -) 1,000 mcg PO DAILY LISA Last Admin: 01/31/20 10:48 Dose: Not Given Documented by: Diazepam (Valium Injection -) 5 mg IM ONCE PRN PRN Reason: AGITATION Docusate Sodium (Colace -) 100 mg PO Q8H PRN PRN Reason: CONSTIPATION Hydrocortisone (Hytone 1% Cream -) 1 applic TP DAILY PRN PRN Reason: FOR ITCHING Sodium Chloride (Normal Saline -) 1,000 mls @ 50 mls/hr IV ASDIR LISA Stop: 01/31/20 14:01 Last Admin: 01/31/20 03:42 Dose: Not Given Documented by: Daptomycin 500 mg/ Sodium (Chloride) 50 mls @ 100 mls/hr IVPB Q24H [facility]; Protocol Last Admin: 01/30/20 14:52 Dose: 100 mls/hr Documented by: Meropenem 1 gm/ Dextrose 100 mls @ 200 mls/hr IVPB Q12H [facility] Last Admin: 01/31/20 10:46 Dose: Not Given Documented by: Insulin Aspart (Novolog Vial Sliding Scale -) 1 vial SQ ACHS [facility]; Protocol Last Admin: 01/31/20 11:17 Dose: 2 units Documented by: Lidocaine (Lidoderm Patch -) 1 patch TP DAILY [facility] Last Admin: 01/31/20 10:46 Dose: 1 patch Documented by: Metoprolol Tartrate (Lopressor Injection -) 5 mg IVPUSH Q6H PRN PRN Reason: HYPERTENSION Last Admin: 01/30/20 13:01 Dose: 5 mg Documented by: Miscellaneous (Lidoderm Patch Removal) 1 each MC DAILY@2200 [facility] Last Admin: 01/30/20 21:30 Dose: 1 each Documented by: Pramipexole Dihydrochloride (Mirapex -) 0.25 mg PO BID [facility] Last Admin: 01/31/20 10:47 Dose: Not Given Documented by: Rivaroxaban (Xarelto) 15 mg PO DAILY@1800 [facility] Last Admin: 01/30/20 17:03 Dose: 15 mg Documented by: ASSESSMENT AND PLAN: r/o Paraspinal Abscess s/p drainage UTI Sepsis LV Systolic Dysfunction Atrial Fibrillation with RVR HTN DM Rheumatoid Arthritis h/o DVT/PE Hyponatremia Anemia - continue antibiotics per ID - monitor drain output - rate control - continue anticoagulation - pain control - aspiration precautions - can monitor on telemetry
--- NOTE | 2020-01-31 11:38 | PN ---
Progress Note (short form) - Note Progress Note: s: agitated and confused this AM. back in sr now. Current Medications Generic Name Dose Route Start Last Admin Trade Name Freq PRN Reason Stop Dose Admin Amino Acids 30 ml 01/29/20 17:30 01/31/20 10:45 Prosource No Carb Liquid Pkt PO Not Given BID@0800,1730 LISA Baclofen 10 mg 01/27/20 18:58 01/30/20 11:05 Lioresal - PO 10 mg Q8H PRN Administration MUSCLE SPASMS Cyanocobalamin 1,000 mcg 01/28/20 10:00 01/31/20 10:48 Vitamin B12 - PO Not Given DAILY LISA Diazepam 5 mg 01/29/20 22:21 Valium Injection - IM ONCE PRN AGITATION Docusate Sodium 100 mg 01/27/20 18:58 Colace - PO Q8H PRN CONSTIPATION Hydrocortisone 1 applic 01/27/20 18:58 Hytone 1% Cream - TP DAILY PRN FOR ITCHING Sodium Chloride 1,000 mls @ 50 mls/hr 01/27/20 18:58 01/31/20 03:42 Normal Saline - IV 01/31/20 14:01 Not Given ASDIR [facility] Daptomycin 500 mg/ Sodium 50 mls @ 100 mls/hr 01/28/20 15:30 01/30/20 14:52 Chloride IVPB 100 mls/hr Q24H [facility] Administration Protocol Meropenem 1 gm/ Dextrose 100 mls @ 200 mls/hr 01/30/20 08:15 01/31/20 10:46 IVPB Not Given Q12H [facility] Insulin Aspart 1 vial 01/27/20 22:00 01/31/20 11:17 Novolog Vial Sliding Scale - SQ 2 units ACHS LISA Administration Protocol Lidocaine 1 patch 01/28/20 10:00 01/31/20 10:46 Lidoderm Patch - TP 1 patch DAILY LISA Administration Metoprolol Tartrate 5 mg 01/30/20 12:19 01/30/20 13:01 Lopressor Injection - IVPUSH 5 mg Q6H PRN Administration HYPERTENSION Miscellaneous 1 each 01/27/20 22:00 01/30/20 21:30 Lidoderm Patch Removal MC 1 each DAILY@2200 [facility] Administration Pramipexole Dihydrochloride 0.25 mg 01/27/20 22:00 01/31/20 10:47 Mirapex - PO Not Given BID [facility] Rivaroxaban 15 mg 01/28/20 18:00 01/30/20 17:03 Xarelto PO 15 mg DAILY@1800 [facility] Administration Vital Signs Temp 97.8 F 01/31/20 10:00 Pulse 87 01/31/20 10:00 Resp 18 01/31/20 10:00 BP 113/73 01/31/20 10:00 Pulse Ox 95 01/31/20 09:00 Intake & Output 01/30/20 01/30/20 01/31/20 11:59 23:59 11:59 Intake Total 50 1160 50 Output Total 2 Balance 50 1158 50 Weight 197 lb 197 lb Intake: IV 600 SL 600 IVPB 150 Oral 50 410 50 Output: Urine 2 Void 2 Other: Voiding Method Incontinent Incontinent Incontinent # Unmeasured Voids Hines 1 Bowel Movement Yes No # Bowel Movements 1 Weight Measurement Method Built in [facility] Built in [facility] Constitutional: Yes: agitated Respiratory: CTAB anteriorly, poor effort Gastrointestinal: Yes: Soft, Abdomen, Obese Cardiovascular: Yes: rrr, nl s1, s2, no mrg no jvd Edema: none Neurological: agitated, confused no jaundice, diaphoresis Laboratory Last Values WBC 9.8 K/mm3 (4.0-10.0) 01/28/20 09:30 Corrected WBC (auto) Cancelled 01/22/20 06:25 RBC 4.24 M/mm3 (3.60-5.2) 01/28/20 09:30 Hgb 11.4 GM/dL (10.7-15.3) 01/28/20 09:30 Hct 36.1 % (32.4-45.2) 01/28/20 09:30 MCV 85.2 fl (80-96) 01/28/20 09:30 MCH 26.8 pg (25.7-33.7) 01/28/20 09:30 MCHC 31.5 g/dl (32.0-36.0) L 01/28/20 09:30 RDW 18.6 % (11.6-15.6) H 01/28/20 09:30 Plt Count 375 K/MM3 (134-434) 01/28/20 09:30 MPV 7.8 fl (7.5-11.1) 01/28/20 09:30 Absolute Neuts (auto) 7.9 K/mm3 (1.5-8.0) 01/28/20 09:30 Neutrophils % 81.0 % (42.8-82.8) 01/28/20 09:30 Neutrophils % (Manual) 66.3 % (42.8-82.8) 01/23/20 07:00 Band Neutrophils % 3.2 % 01/23/20 07:00 Lymphocytes % 12.0 % (8-40) D 01/28/20 09:30 Lymphocytes % (Manual) 15.8 % (8-40) 01/23/20 07:00 Monocytes % 6.9 % (3.8-10.2) D 01/28/20 09:30 Monocytes % (Manual) 11 % (3.8-10.2) H 01/23/20 07:00 Eosinophils % 0.0 % (0-4.5) D 01/28/20 09:30 Eosinophils % (Manual) 4.2 % (0-4.5) 01/23/20 07:00 Basophils % 0.1 % (0-2.0) 01/28/20 09:30 Basophils % (Manual) 0.0 % (0-2.0) 01/23/20 07:00 Myelocytes % (Man) 0 % (0-2) 01/23/20 07:00 Promyelocytes % (Man) 0 % (0-2) 01/23/20 07:00 Blast Cells % (Manual) 0 % (0-0) 01/23/20 07:00 Nucleated RBC % 0 % (0-0) 01/28/20 09:30 Metamyelocytes 0 % (0-2) 01/23/20 07:00 Manual Slide Review Cancelled 01/22/20 06:25 Hypochromia 0 01/23/20 07:00 Platelet Estimate Adequate 01/24/20 20:08 Platelet Comment No clumping noted 01/24/20 20:08 Polychromasia 1+ 01/23/20 07:00 Poikilocytosis 0 01/23/20 07:00 Anisocytosis 1+ 01/23/20 07:00 Microcytosis 1+ 01/23/20 07:00 Macrocytosis 0 01/23/20 07:00 ESR 88 mm/hr (0-30) H 01/21/20 07:04 PT with INR 18.60 SEC (9.7-13.0) H 01/20/20 06:45 INR 1.57 (0.83-1.09) H 01/20/20 06:45 PTT (Actin FS) 38.5 SECONDS (25.2-36.5) H 01/19/20 12:30 VBG pH 7.32 (7.31-7.41) 01/19/20 12:30 POC VBG pCO2 49.5 mmHg (38-52) 01/19/20 12:30 POC VBG pO2 < 49 mmHg (28-48) H 01/19/20 12:30 VBG HCO3 24.6 mmol/L (23-29) 01/19/20 12:30 VBG O2 Sat (Michael) 60.8 % (70-80) L 01/19/20 12:30 VBG Base Excess -1.9 mmol/L (-2-2) 01/19/20 12:30 Sodium 139 mmol/L (136-145) 01/31/20 09:30 Potassium 5.3 mmol/L (3.5-5.1) H 01/31/20 09:30 Chloride 108 mmol/L (98-107) H 01/31/20 09:30 Carbon Dioxide 25 mmol/L (21-32) 01/31/20 09:30 Anion Gap 6 MMOL/L (8-16) L 01/31/20 09:30 BUN 25.5 mg/dL (7-18) H 01/31/20 09:30 Creatinine 0.8 mg/dL (0.55-1.3) 01/31/20 09:30 Est GFR (CKD-EPI)AfAm 84.77 01/31/20 09:30 Est GFR (CKD-EPI)NonAf 73.14 01/31/20 09:30 POC Glucometer 191 UNITS (80-120) 01/31/20 11:14 Random Glucose 167 mg/dL (74-106) H 01/31/20 09:30 Serum Osmolality 281 mosm/kg (278-305) 01/24/20 23:00 Lactic Acid 2.4 mmol/L (0.4-2.0) H* 01/24/20 05:30 Calcium 8.4 mg/dL (8.5-10.1) L 01/31/20 09:30 Phosphorus 3.4 mg/dL (2.5-4.9) 01/31/20 09:30 Magnesium 2.8 mg/dL (1.8-2.4) H 01/31/20 09:30 Total Bilirubin 0.4 mg/dL (0.2-1) 01/31/20 09:30 AST 20 U/L (15-37) 01/31/20 09:30 ALT 12 U/L (13-61) L 01/31/20 09:30 Alkaline Phosphatase 124 U/L (45-117) H 01/31/20 09:30 Creatine Kinase 203 U/L (26-192) H 01/27/20 06:25 Creatine Kinase Index 1.6 % (0.0-5.0) 01/27/20 06:25 CK-MB (CK-2) 3.4 ng/mL (0.5-3.6) 01/27/20 06:25 Troponin I < 0.02 ng/ml (0.00-0.05) 01/24/20 20:08 C-Reactive Protein 14.0 MG/DL (0.00-0.3) H 01/21/20 07:02 Total Protein 5.8 g/dl (6.4-8.2) L 01/31/20 09:30 Albumin 2.3 g/dl (3.4-5.0) L 01/31/20 09:30 Urine Color Yellow 01/24/20 23:59 Urine Appearance Turbid 01/24/20 23:59 Urine pH 5.0 (5.0-8.0) 01/24/20 23:59 Ur Specific [place] 1.018 (1.010-1.035) 01/24/20 23:59 Urine Protein 1+ (NEGATIVE) H 01/24/20 23:59 Urine Glucose (UA) Negative (NEGATIVE) 01/24/20 23:59 Urine Ketones Trace (NEGATIVE) H 01/24/20 23:59 Urine Blood Negative (NEGATIVE) 01/24/20 23:59 Urine Nitrite Negative (NEGATIVE) 01/24/20 23:59 Urine Bilirubin Negative (NEGATIVE) 01/24/20 23:59 Urine Urobilinogen 0.2 mg/dL (0.2-1.0) 01/24/20 23:59 Ur Leukocyte Esterase 2+ (NEGATIVE) H 01/24/20 23:59 Urine WBC (Auto) 124 /uL (0-25.8) 01/24/20 23:59 Urine RBC (Auto) 13 /uL (0-23.9) 01/24/20 23:59 Urine Casts (Auto) 10 /uL (0-3.1) 01/24/20 23:59 U Pathogenic Cast Auto None seen /lpf (NEGATIVE) 01/24/20 23:59 U Epithel Cells (Auto) >36 /uL (0-25.1) 01/24/20 23:59 Urine Crystals (Auto) None seen /hpf 01/24/20 23:59 Urine Bacteria (Auto) 98 /uL (0-1359) 01/24/20 23:59 Urine Yeast (Auto) None seen (NEGATIVE) 01/24/20 23:59 Urine Osmolality 268 mosm/kg (300-900) L 01/24/20 23:59 Ur Random Sodium 23 MMOL/L (40-220) L 01/25/20 00:00 Ur Random Potassium 34.0 MMOL/L (25-125) 01/25/20 00:00 Ur Random Chloride 29 MMOL/L (110-250) L 01/25/20 00:00 Vancomycin Pre-Dose 37.4 ug/ml (5-10) H* 01/24/20 20:08 COVID-19 (MATA) Not detected (Not Detected) 01/19/20 23:40 Blood Type O POSITIVE 01/19/20 17:30 Antibody Screen Negative 01/19/20 17:30 Echo: Report Reviewed ( Moderately reduced EF, Moderate MR (this admission); 2018 50-55% with mild MR) tele: sr Imaging - Results X-ray: Image Reviewed, no sig chf est cct 35 mins Assessment/Plan IMP: Epidural abscess, wound infection Acute renal failure Hyponatremia Acute on chronic systolic CHF, with what appears to be new LV dysfx from 2018 Moderate MR Prolonged QT PAF HTN 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 REC: abd pain, epidural abscess: - manage per surgery, ID acute renal failure: -Suspect ATN due to periods of intermittent hypotension -Renal following -cr improved -pressors off now -renally dosed meds, adjusted Xarelto for now Hypotension: -bp still on low side, have been holding coreg -volume depletion/sepsis likely etiology UTI, bacteremia: - manage per primary, ID chronic systolic CHF, nonischemic cardiomyopathy, moderate MR: -known nonisch CMP with normal coronaries on cath x 2 -EF has fluctuated 35-55% over the years, likely in relation to severity of untreated NICHOLE, vs ? diabetic (uncontrolled glycemic status, does not f/u with PMD despite repeatedly advised to do so) -EF moderately reduced, last echo here EF 35-40% -does not appear vol overloaded now -cont bb -in setting of hypotension, holding torsemide, and entresto PAF: - Cont Xarelto, dose adjust for GFR - rvr at times, now in sr after 1 dose of iv dig - coreg held frequently for low BP - monitoring on tele DVT/PE with history of filter: -cont with AC NICHOLE: -not using CPAP
--- NOTE | 2020-01-31 16:08 | PN ---
Progress Note, Physician - Current Medication List Current Medications: Active Medications Amino Acids (Prosource No Carb Liquid Pkt) 30 ml PO BID@0800,1730 [facility] Last Admin: 01/31/20 10:45 Dose: Not Given Documented by: Baclofen (Lioresal -) 10 mg PO Q8H PRN PRN Reason: MUSCLE SPASMS Last Admin: 01/30/20 11:05 Dose: 10 mg Documented by: Cyanocobalamin (Vitamin B12 -) 1,000 mcg PO DAILY [facility] Last Admin: 01/31/20 10:48 Dose: Not Given Documented by: Diazepam (Valium Injection -) 5 mg IM ONCE PRN PRN Reason: AGITATION Docusate Sodium (Colace -) 100 mg PO Q8H PRN PRN Reason: CONSTIPATION Hydrocortisone (Hytone 1% Cream -) 1 applic TP DAILY PRN PRN Reason: FOR ITCHING Daptomycin 500 mg/ Sodium (Chloride) 50 mls @ 100 mls/hr IVPB Q24H [facility]; Protocol Last Admin: 01/30/20 14:52 Dose: 100 mls/hr Documented by: Meropenem 1 gm/ Dextrose 100 mls @ 200 mls/hr IVPB Q12H [facility] Last Admin: 01/31/20 10:46 Dose: Not Given Documented by: Insulin Aspart (Novolog Vial Sliding Scale -) 1 vial SQ [facility]; Protocol Last Admin: 01/31/20 11:17 Dose: 2 units Documented by: Lidocaine (Lidoderm Patch -) 1 patch TP DAILY [facility] Last Admin: 01/31/20 10:46 Dose: 1 patch Documented by: Metoprolol Tartrate (Lopressor Injection -) 5 mg IVPUSH Q6H PRN PRN Reason: HYPERTENSION Last Admin: 01/30/20 13:01 Dose: 5 mg Documented by: Miscellaneous (Lidoderm Patch Removal) 1 each MC DAILY@2200 [facility] Last Admin: 01/30/20 21:30 Dose: 1 each Documented by: Pramipexole Dihydrochloride (Mirapex -) 0.25 mg PO BID [facility] Last Admin: 01/31/20 10:47 Dose: Not Given Documented by: Rivaroxaban (Xarelto) 15 mg PO DAILY@1800 [facility] Last Admin: 01/30/20 17:03 Dose: 15 mg Documented by: - Objective Vital Signs: Vital Signs Temperature 97.8 F 01/31/20 10:00 Pulse Rate 87 01/31/20 10:00 Respiratory Rate 18 01/31/20 10:00 Blood Pressure 113/73 01/31/20 10:00 O2 Sat by Pulse Oximetry (%) 95 01/31/20 09:00 Labs: CBC, BMP 01/28/20 09:30 01/31/20 09:30 INR, PTT INR 1.57 (0.83-1.09) H 01/20/20 06:45
[2020-01-31] MEDS: DAPTOMYCIN 500 MG in SODIUM CHLORIDE 50 ML IVPB SCH (17:07)
--- NOTE | 2020-01-31 17:07 | CON.PSY ---
Psychiatry Consult Chief Complaint: 74 year old female seen for acute Deliruim, case discussed with . apparantly has no history of Dementia.. She is confused and disoriented, pulling out tubes etc.. un cooperative with care. Symptoms: reports: Irritability - Previous Psychiatric Treatment Outpatient: None Inpatient: None - Previous Substance Abuse Treatment Outpatient: None Inpatient: None - Current Medications Current Medications: Active Medications Amino Acids (Prosource No Carb Liquid Pkt) 30 ml PO BID@0800,1730 [facility] Last Admin: 01/31/20 10:45 Dose: Not Given Documented by: Baclofen (Lioresal -) 10 mg PO Q8H PRN PRN Reason: MUSCLE SPASMS Last Admin: 01/30/20 11:05 Dose: 10 mg Documented by: Cyanocobalamin (Vitamin B12 -) 1,000 mcg PO DAILY [facility] Last Admin: 01/31/20 10:48 Dose: Not Given Documented by: Diazepam (Valium Injection -) 5 mg IM ONCE PRN PRN Reason: AGITATION Docusate Sodium (Colace -) 100 mg PO Q8H PRN PRN Reason: CONSTIPATION Hydrocortisone (Hytone 1% Cream -) 1 applic TP DAILY PRN PRN Reason: FOR ITCHING Daptomycin 500 mg/ Sodium (Chloride) 50 mls @ 100 mls/hr IVPB Q24H [facility]; Protocol Last Admin: 01/30/20 14:52 Dose: 100 mls/hr Documented by: Meropenem 1 gm/ Dextrose 100 mls @ 200 mls/hr IVPB Q12H [facility] Last Admin: 01/31/20 10:46 Dose: Not Given Documented by: Insulin Aspart (Novolog Vial Sliding Scale -) 1 vial SQ ACHS [facility]; Protocol Last Admin: 01/31/20 11:17 Dose: 2 units Documented by: Lidocaine (Lidoderm Patch -) 1 patch TP DAILY [facility] Last Admin: 01/31/20 10:46 Dose: 1 patch Documented by: Metoprolol Tartrate (Lopressor Injection -) 5 mg IVPUSH Q6H PRN PRN Reason: HYPERTENSION Last Admin: 01/30/20 13:01 Dose: 5 mg Documented by: Miscellaneous (Lidoderm Patch Removal) 1 each MC DAILY@2200 [facility] Last Admin: 01/30/20 21:30 Dose: 1 each Documented by: Pramipexole Dihydrochloride (Mirapex -) 0.25 mg PO BID [facility] Last Admin: 01/31/20 10:47 Dose: Not Given Documented by: Rivaroxaban (Xarelto) 15 mg PO DAILY@1800 [facility] Last Admin: 01/30/20 17:03 Dose: 15 mg Documented by: - Allergies Allergies: Allergies Allergy/AdvReac Type Severity Reaction Status Date / Time levofloxacin [From Levaquin] Allergy Severe ANAPHYLAXIS Verified 12/26/19 13:30 methotrexate Allergy Severe Swelling Verified 12/26/19 13:30 Penicillins Allergy Mild Rash Verified 12/26/19 13:30 doxycycline Allergy Unknown Verified 12/26/19 13:30 bumetanide [From Bumex] Allergy Rash Verified 12/26/19 13:30 morphine AdvReac Mild Itching Verified 12/28/19 11:59 piperacillin sodium AdvReac Mild Itching Verified 12/26/19 13:30 [From Zosyn] tazobactam sodium AdvReac Mild Itching Verified 12/26/19 13:30 [From Zosyn] - Current Living Status Usual Living Arrangement: With Significant Other - Current Mental Status Evaluation Appearance: Disheveled Attitude: Uncooperative - Affect Affect: Constrictive Appropriateness: Not Appropriate - Mood Mood: Irritable - Speech/Language Expressive: Delayed - Psychomotor Activity Psychomotor Activity: Hyperactive - Thought Process Thought Process: Circumstantial - Thought Content Hallucinations: Absent Delusions: Absent - Self Perception Self Perception: No Impairment - Cognition Attention: Diminished Orientation: Person Memory, Short Term: 1/3 Memory, Remote with Promptin/3 - Concentration Serial Sevens Intact: No Simple Calculations Intact: No - Abstraction Proverb Interpretation: Impaired Judgement: Minimally Impaired - Insight Insight: Impaired - Impulse Control Impulse Control: Moderately Impaired - Suicidal Ideation Suicidal Ideation: No - Homicidal Ideation Homicidal Ideation: No Assessment/Plan 10 zyprexa 5mg po hs for acute agitation
[2020-01-31] MEDS: RIVAROXABAN 15 MG TABLET PO SCH (17:09)
--- NOTE | 2020-01-31 17:51 | PN ---
Progress Note, Physician History of Present Illness: Pt seen and examined at bedside. She remains confused. - Current Medication List Current Medications: Active Medications Amino Acids (Prosource No Carb Liquid Pkt) 30 ml PO BID@0800,1730 [facility] Last Admin: 01/31/20 17:08 Dose: Not Given Documented by: Baclofen (Lioresal -) 10 mg PO Q8H PRN PRN Reason: MUSCLE SPASMS Last Admin: 01/30/20 11:05 Dose: 10 mg Documented by: Cyanocobalamin (Vitamin B12 -) 1,000 mcg PO DAILY [facility] Last Admin: 01/31/20 10:48 Dose: Not Given Documented by: Diazepam (Valium Injection -) 5 mg IM ONCE PRN PRN Reason: AGITATION Docusate Sodium (Colace -) 100 mg PO Q8H PRN PRN Reason: CONSTIPATION Hydrocortisone (Hytone 1% Cream -) 1 applic TP DAILY PRN PRN Reason: FOR ITCHING Daptomycin 500 mg/ Sodium (Chloride) 50 mls @ 100 mls/hr IVPB Q24H [facility]; Protocol Last Admin: 01/31/20 17:07 Dose: Not Given Documented by: Meropenem 1 gm/ Dextrose 100 mls @ 200 mls/hr IVPB Q12H [facility] Last Admin: 01/31/20 10:46 Dose: Not Given Documented by: Insulin Aspart (Novolog Vial Sliding Scale -) 1 vial SQ ACHS [facility]; Protocol Last Admin: 01/31/20 17:08 Dose: Not Given Documented by: Lidocaine (Lidoderm Patch -) 1 patch TP DAILY [facility] Last Admin: 01/31/20 10:46 Dose: 1 patch Documented by: Metoprolol Tartrate (Lopressor Injection -) 5 mg IVPUSH Q6H PRN PRN Reason: HYPERTENSION Last Admin: 01/30/20 13:01 Dose: 5 mg Documented by: Miscellaneous (Lidoderm Patch Removal) 1 each MC DAILY@2200 [facility] Last Admin: 01/30/20 21:30 Dose: 1 each Documented by: Olanzapine (Zyprexa -) 5 mg PO HS [facility] Pramipexole Dihydrochloride (Mirapex -) 0.25 mg PO BID [facility] Last Admin: 01/31/20 10:47 Dose: Not Given Documented by: Rivaroxaban (Xarelto) 15 mg PO DAILY@1800 [facility] Last Admin: 01/31/20 17:09 Dose: 15 mg Documented by: - Objective Vital Signs: Vital Signs Temperature 97.8 F 01/31/20 10:00 Pulse Rate 76 01/31/20 14:00 Respiratory Rate 16 01/31/20 14:00 Blood Pressure 143/76 01/31/20 14:00 O2 Sat by Pulse Oximetry (%) 95 01/31/20 09:00 Constitutional: Yes: Calm Eyes: Yes: Conjunctiva Clear HENT: Yes: Atraumatic Neck: Yes: Supple Cardiovascular: Yes: S1, S2 Respiratory: Yes: CTA Bilaterally Gastrointestinal: Yes: Soft Genitourinary: Yes: Incontinence Musculoskeletal: Yes: WNL Edema: No Neurological: Yes: Confusion Labs: CBC, BMP 01/28/20 09:30 01/31/20 09:30 INR, PTT INR 1.57 (0.83-1.09) H 01/20/20 06:45 Problem List - Problems (1) ELIZABETH (acute kidney injury) Code(s): N17.9 - ACUTE KIDNEY FAILURE, UNSPECIFIED Assessment/Plan Current Medications Generic Name Dose Route Start Last Admin Trade Name Freq PRN Reason Stop Dose Admin Amino Acids 30 ml 01/29/20 17:30 01/31/20 17:08 Prosource No Carb Liquid Pkt PO Not Given BID@0800,1730 [facility] Baclofen 10 mg 01/27/20 18:58 01/30/20 11:05 Lioresal - PO 10 mg Q8H PRN Administration MUSCLE SPASMS Cyanocobalamin 1,000 mcg 01/28/20 10:00 01/31/20 10:48 Vitamin B12 - PO Not Given DAILY [facility] Diazepam 5 mg 01/29/20 22:21 Valium Injection - IM ONCE PRN AGITATION Docusate Sodium 100 mg 01/27/20 18:58 Colace - PO Q8H PRN CONSTIPATION Hydrocortisone 1 applic 01/27/20 18:58 Hytone 1% Cream - TP DAILY PRN FOR ITCHING Daptomycin 500 mg/ Sodium 50 mls @ 100 mls/hr 01/28/20 15:30 01/31/20 17:07 Chloride IVPB Not Given Q24H [facility] Protocol Meropenem 1 gm/ Dextrose 100 mls @ 200 mls/hr 01/30/20 08:15 01/31/20 10:46 IVPB Not Given Q12H [facility] Insulin Aspart 1 vial 01/27/20 22:00 01/31/20 17:08 Novolog Vial Sliding Scale - SQ Not Given ACHS [facility] Protocol Lidocaine 1 patch 01/28/20 10:00 01/31/20 10:46 Lidoderm Patch - TP 1 patch DAILY [facility] Administration Metoprolol Tartrate 5 mg 01/30/20 12:19 01/30/20 13:01 Lopressor Injection - IVPUSH 5 mg Q6H PRN Administration HYPERTENSION Miscellaneous 1 each 01/27/20 22:00 01/30/20 21:30 Lidoderm Patch Removal MC 1 each DAILY@2200 [facility] Administration Olanzapine 5 mg 01/31/20 22:00 Zyprexa - PO HS [facility] Pramipexole Dihydrochloride 0.25 mg 01/27/20 22:00 01/31/20 10:47 Mirapex - PO Not Given BID [facility] Rivaroxaban 15 mg 01/28/20 18:00 01/31/20 17:09 Xarelto PO 15 mg DAILY@1800 [facility] Administration Impression 1. ELIZABETH 2. sepsis 3. shock 4. CHF 5. hx of htn 6. epidural abscess 7. ut 8. a-fib 9. hyponatremia 10. hyperkalemia Plan - start lokelma - monitor lytes - potassium mildly elevated - pt remains agitated - monitor bp - avoid nsaids - renal dose meds - discussed with ICU team - renal function improved
[2020-01-31] MEDS ORDERED: diazePAM CARPU-JECT 10 MG/2 ML DISP.SYRIN IVPUSH PRN (19:53)
[2020-01-31] MEDS ORDERED: HYDROCORTISONE 1% TOPICAL CREAM 30 GM TUBE TP PRN (21:03)
[2020-01-31] MEDS ORDERED: DOCUSATE SODIUM 100 MG CAPSULE (FP) PO PRN (21:03)
[2020-01-31] MEDS ORDERED: LIDOCAINE PATCH REMOVAL MC SCH (21:03)
[2020-01-31] MEDS ORDERED: morphine SULFATE 4 MG/ML VIAL IVPUSH ONE (21:03)
[2020-01-31] MEDS: LIDOCAINE PATCH REMOVAL MC SCH (21:34)
[2020-01-31] MEDS: OLANZapine 5 MG TABLET PO SCH (22:32)
[2020-01-31] MEDS ORDERED: diazePAM CARPU-JECT 10 MG/2 ML DISP.SYRIN IM PRN (23:20)
--- NOTE | 2020-02-01 05:47 | PN ---
Progress Note, Physician Chief Complaint: denies CP, SOB Wants to Facetime her family History of Present Illness: TELE: OFF tele - Current Medication List Current Medications: Active Medications Amino Acids (Prosource No Carb Liquid Pkt) 30 ml PO BID@0800,1730 [facility] Last Admin: 01/31/20 17:08 Dose: Not Given Documented by: Baclofen (Lioresal -) 10 mg PO Q8H PRN PRN Reason: MUSCLE SPASMS Cyanocobalamin (Vitamin B12 -) 1,000 mcg PO DAILY [facility] Diazepam (Valium Injection -) 5 mg IM ONCE PRN PRN Reason: ANXIETY Docusate Sodium (Colace -) 100 mg PO Q8H PRN PRN Reason: CONSTIPATION Hydrocortisone (Hytone 1% Cream -) 1 applic TP Q24H PRN PRN Reason: FOR ITCHING Daptomycin 500 mg/ Sodium (Chloride) 50 mls @ 100 mls/hr IVPB Q24H [facility]; Protocol Last Admin: 01/31/20 17:07 Dose: Not Given Documented by: Meropenem 1 gm/ Dextrose 100 mls @ 200 mls/hr IVPB Q12H [facility] Last Admin: 01/31/20 21:32 Dose: Not Given Documented by: Insulin Aspart (Novolog Vial Sliding Scale -) 1 vial SQ ACHS [facility]; Protocol Last Admin: 01/31/20 22:46 Dose: Not Given Documented by: Lidocaine (Lidoderm Patch -) 1 patch TP DAILY [facility] Metoprolol Tartrate (Lopressor Injection -) 5 mg IVPUSH Q6H PRN PRN Reason: HYPERTENSION Last Admin: 01/30/20 13:01 Dose: 5 mg Documented by: Miscellaneous (Lidoderm Patch Removal) 1 each MC DAILY@2200 [facility] Last Admin: 01/31/20 21:34 Dose: Not Given Documented by: Olanzapine (Zyprexa -) 5 mg PO HS [facility] Last Admin: 01/31/20 22:32 Dose: 5 mg Documented by: Pramipexole Dihydrochloride (Mirapex -) 0.25 mg PO BID [facility] Last Admin: 01/31/20 22:31 Dose: 0.25 mg Documented by: Rivaroxaban (Xarelto) 15 mg PO DAILY@1800 [facility] Sodium Zirconium Cyclosilicate (Lokelma) 10 gm PO DAILY [facility] Last Admin: 01/31/20 22:45 Dose: 10 gm Documented by: - Objective Vital Signs: Vital Signs Temperature 97.8 F 01/31/20 10:00 Pulse Rate 77 01/31/20 18:00 Respiratory Rate 16 01/31/20 21:00 Blood Pressure 136/73 01/31/20 18:00 O2 Sat by Pulse Oximetry (%) 95 01/31/20 21:00 Constitutional: Yes: No Distress Cardiovascular: Yes: Pulse Irregular Respiratory: Yes: CTA Bilaterally Gastrointestinal: Yes: Soft Edema: No Neurological: Yes: Alert, Oriented Labs: CBC, BMP 01/28/20 09:30 01/31/20 09:30 INR, PTT INR 1.57 (0.83-1.09) H 01/20/20 06:45 Assessment/Plan IMP: Epidural abscess, wound infection Acute renal failure Hyponatremia Acute on chronic systolic CHF, with what appears to be new LV dysfx from 2018 Moderate MR Prolonged QT PAF HTN 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 REC: abd pain, epidural abscess: - manage per surgery, ID acute renal failure: -Suspect ATN due to periods of intermittent hypotension -Renal following -cr improved -pressors off now -renally dosed meds, adjusted Xarelto for now Hypotension: -bp still on low side, have been holding coreg -volume depletion/sepsis likely etiology UTI, bacteremia: - manage per primary, ID chronic systolic CHF, nonischemic cardiomyopathy, moderate MR: -known nonisch CMP with normal coronaries on cath x 2 -EF has fluctuated 35-55% over the years, likely in relation to severity of untreated NICHOLE, vs ? diabetic (uncontrolled glycemic status, does not f/u with PMD despite repeatedly advised to do so) -EF moderately reduced, last echo here EF 35-40% -does not appear vol overloaded now -cont bb -in setting of persistent intermittent hypotension, holding torsemide, and entresto; Over last 24 hours, episodes of hypotension seem to be resolving and trend appears to be normalizing. If remains stable in this direction, can begin to re-introduce home meds gradually over next 24-48 hours PAF: - Cont Xarelto, dose adjust for GFR - rvr at times, now in sr after 1 dose of iv dig - coreg held frequently for low BP - monitoring on tele DVT/PE with history of filter: -cont with AC NICHOLE: -not using CPAP
[2020-02-01] MEDS: INSULIN SLIDING SCALE (NOVOLOG) 1 VIAL SQ SCH ×4 (06:11→21:51)
[2020-02-01] MEDS ORDERED: PT OWN MED DRAWER 7, Y5N ONE ×2 (08:13→20:38)
[2020-02-01] MEDS ORDERED: DEXTROSE 5%-WATER 100 ML IVPB ONE ×2 (08:13→20:37)
[2020-02-01] MEDS ORDERED: MEROPENEM 1 GM VIAL (RESTRICTED TO ID) IVPB ONE ×2 (08:13→20:37)
[2020-02-01] MEDS: LIDOCAINE 5% TOPICAL PATCH TP SCH (09:14)
[2020-02-01] MEDS: MEROPENEM 1 GM in DEXTROSE 5%-WATER 100 ML IVPB SCH ×2 (09:15→20:57)
[2020-02-01] MEDS: AMINO ACIDS/PROTEIN HYDROLYS 30 ML LIQUID.PKT PO SCH ×2 (09:15→17:09)
[2020-02-01] MEDS: BACLOFEN 10 MG TABLET (FP) PO PRN (09:15)
[2020-02-01] MEDS: CYANOCOBALAMIN 1,000 MCG TABLET (FP) PO SCH (09:16)
[2020-02-01] MEDS: PRAMIPEXOLE DIHYDROCHLORIDE 0.25 MG TABLET PO SCH ×2 (09:16→21:02)
--- NOTE | 2020-02-01 09:35 | PN ---
Progress Note (short form) - Note Progress Note: PULMONARY LYING FLAT/NOT ON O2 APPEARS COMFORTABLE NOT DYSPNEIC IS ON 1:1 DUE TO AGITATION VSS/AFEBRILE Gen: alert/answers questions appropriately Heart: tachycardic, regular Lung: clear Abd: soft, nontender Ext: no edema labs/meds/images/micro reviewed ASSESSMENT AND PLAN: r/o Paraspinal Abscess s/p drainage UTI Sepsis LV Systolic Dysfunction Atrial Fibrillation with RVR HTN DM Rheumatoid Arthritis h/o DVT/PE Hyponatremia Anemia - continue antibiotics per ID - monitor drain output - rate control - continue anticoagulation - pain control - aspiration precautions Alysia MILLER MD
--- NOTE | 2020-02-01 11:24 | PN ---
Physical Exam: SUBJECTIVE: Patient seen and examined at bedside. Very uncomfortable. Complaining of R leg pain from "nerve damage". Refused lab draw OBJECTIVE: Vital Signs Period Temp Pulse Resp BP Sys/Marcelo Pulse Ox Last 24 Hr 98.8 F 76-84 15-20 136-152/73-82 95 PE refused physical exam Laboratory Results - last 24 hr 01/31/20 01/31/20 01/31/20 11:14 16:57 22:37 POC Glucometer 191 107 150 02/01/20 04:05 POC Glucometer 111 Active Medications Generic Name Dose Route Start Last Admin Trade Name Freq PRN Reason Stop Dose Admin Amino Acids 30 ml 01/29/20 17:30 02/01/20 09:15 Prosource No Carb Liquid Pkt PO 30 ml BID@0800,1730 [facility] Administration Baclofen 10 mg 01/31/20 21:03 02/01/20 09:15 Lioresal - PO 10 mg Q8H PRN Administration MUSCLE SPASMS Cyanocobalamin 1,000 mcg 02/01/20 10:00 02/01/20 09:16 Vitamin B12 - PO 1,000 mcg DAILY [facility] Administration Diazepam 5 mg 01/31/20 23:20 Valium Injection - IM ONCE PRN ANXIETY Docusate Sodium 100 mg 01/31/20 21:03 Colace - PO Q8H PRN CONSTIPATION Hydrocortisone 1 applic 01/31/20 21:03 Hytone 1% Cream - TP Q24H PRN FOR ITCHING Daptomycin 500 mg/ Sodium 50 mls @ 100 mls/hr 01/28/20 15:30 01/31/20 17:07 Chloride IVPB Not Given Q24H [facility] Protocol Meropenem 1 gm/ Dextrose 100 mls @ 200 mls/hr 01/30/20 08:15 02/01/20 09:15 IVPB 200 mls/hr Q12H [facility] Administration Insulin Aspart 1 vial 01/31/20 22:00 02/01/20 06:11 Novolog Vial Sliding Scale - SQ Not Given ACHS [facility] Protocol Lidocaine 1 patch 02/01/20 10:00 02/01/20 09:14 Lidoderm Patch - TP 1 patch DAILY [facility] Administration Metoprolol Tartrate 5 mg 01/30/20 12:19 01/30/20 13:01 Lopressor Injection - IVPUSH 5 mg Q6H PRN Administration HYPERTENSION Miscellaneous 1 each 01/31/20 22:00 01/31/20 21:34 Lidoderm Patch Removal MC Not Given DAILY@2200 [facility] Olanzapine 5 mg 01/31/20 22:00 01/31/20 22:32 Zyprexa - PO 5 mg HS [facility] Administration Pramipexole Dihydrochloride 0.25 mg 01/31/20 22:00 02/01/20 09:16 Mirapex - PO 0.25 mg BID [facility] Administration Rivaroxaban 15 mg 02/01/20 18:00 Xarelto PO DAILY@1800 [facility] Sodium Zirconium Cyclosilicate 10 gm 01/31/20 18:00 01/31/20 22:45 Lokelma PO 10 gm DAILY [facility] Administration ASSESSMENT/PLAN: 74YOF with h/o CHF (EF 35-40%), RA, DM 2, HTN, Hx DVT/PE, a fib (on Xarelto), known non-ischemic cardiomyopathy, multiple spine surgeries, s/p L4/[address] Borjas then L5/S1 seroma with recent epidural abscess drainage s/p I and D, complex wound closure and wound vac placement 11/26-s/p IV abx who presented to ED 01/19/20 for weakness and malaise x4 days. Found with UTI, but septic since yesterday and c/f possibility of DASH drain infection. Sepsis with C/F DASH drain infection, abscess, etc. Much improved. -ID consulting, pt will likely need 6 weeks of Abx. Has been on various Abx since admission on 01/18. Has received 14 days of 42 days total. Dapto was started on 01/24/2020 (replacing Vanco), María Elena was started on 01/20/2020. F/u fur ther recs from ID -F/U BCx taken 01/23 (NGTD so far; BCx taken 01/21 final report without growth) -Continue meropenem and daptomycin -Per surgery recs, if no drainage for 48hrs, drain can be removed by IR. Order placed for drain removal. Confusion/agitation - likely delirium exacerbated by polypharmacy with valium + oxycodone + Baclofen -Valium 5 mg IM works well if needed for agitation -Avoid sedating medications during the day and minimize during the night -Melatonin for sleep instead of Benadryl -No Ambien -Baclofen instead of Valium for muscle spasm -Minimize oxycodone - Tylenol first -Encourage normal sleep/wake cycle -Psych on board, Zyprexa started DM -ISS, FSBG TIDAC Chronic AF, h/o CHF with likely exacerbation -c/w Xarelto, Cardizem (holding parameters) ELIZABETH likely 2/2 ATN from hypotension (improved), hyponatremia Resolved -Renal consulting, appreciate recs -Avoid NSAIDs Full-body itching, likely vancomycin or meropenem or daptomycin, continuing issue. Difficult to select abx given Pt's allergies. -Hydrocortisone topical prn -Famotidine prn -Careful Benadryl and Solu-Medrol (only if severe itching), may consider hydroxyzine instead of Benadryl FEN: Hyponatremia, improving -Follow chemistries -IVF: None PPX - DVT: Xarelto, SCDs - GI: Diabetic diet Visit type - Emergency Visit Emergency Visit: No - New Patient This patient is new to me today: No - Critical Care Critical Care patient: No ATTENDING PHYSICIAN STATEMENT I saw and evaluated the patient. I reviewed the resident's note and discussed the case with the resident. I agree with the resident's findings and plan as documented. SUBJECTIVE: OBJECTIVE: ASSESSMENT AND PLAN:
[2020-02-01] MEDS: SODIUM ZIRCONIUM CYCLOSILICATE (LOKELMA) 5 GM PACKET PO SCH (11:31)
--- NOTE | 2020-02-01 11:40 | PN ---
Teaching Attending Note Name of Resident: Gerardo Helms ATTENDING PHYSICIAN STATEMENT I saw and evaluated the patient. I reviewed the resident's note and discussed the case with the resident. I agree with the resident's findings and plan as documented. SUBJECTIVE:Patient is transferred from ICU she was therefore few weeks with multiple medical problems. She is transferred to telemetry now. She has no new complaint she is slightly confused but answers all the questions. No pain no shortness of breath. OBJECTIVE: Vital Signs Period Temp Pulse Resp BP Sys/Marcelo Pulse Ox Last 24 Hr 98.8 F 76-84 15-20 136-152/73-82 95 She refused most of the examination but She looks comfortable she is moving all extremities and she is confused and alert and awake but answers all the questions about orientation. Her back area there is no cellulitis tube in place. And there was no drainage. Dressing was clean. Her extremities showed no edema or cellulitis. Her face looks comfortable no cellulitis or redness or anemia. CBC, BMP 01/28/20 09:30 01/31/20 09:30 ASSESSMENT AND PLAN: 74YOF with h/o CHF (EF 35-40%), RA, DM 2, HTN, Hx DVT/PE, a fib (on Xarelto), known non-ischemic cardiomyopathy, multiple spine surgeries, s/p L4/[address] Borjas then L5/S1 seroma with recent epidural abscess drainage s/p I and D, complex wound closure and wound vac placement 11/26-s/p IV abx who presented to ED 01/19/20 for weakness and malaise x4 days. Found with UTI, but septic since yesterday and c/f possibility of DASH drain infectionConfusion/agitation multiple reason but will observe her at this time Status status post DASH drain abscess in the Spinal area Since she is not draining anything at this time according to neurosurgeon if he does not drain for 4 days she need for removal order has been placed with IR for removal of DASH drain Diabetes stable continue sugar Chronic intrafibrillation stable continue medications ELIZABETH is improved hyponatremia resolved Sepsis continue antibiotic DVT prophylaxis she is already on Xarelto.
--- NOTE | 2020-02-01 12:17 | PN ---
Progress Note, Physician History of Present Illness: Pt seen and examined at bedside. She appears less agitated today. - Current Medication List Current Medications: Active Medications Acetaminophen (Tylenol Oral Solution -) 650 mg PO Q6H PRN PRN Reason: PAIN 1-3 Amino Acids (Prosource No Carb Liquid Pkt) 30 ml PO BID@0800,1730 [facility] Last Admin: 02/01/20 09:15 Dose: 30 ml Documented by: Baclofen (Lioresal -) 10 mg PO Q8H PRN PRN Reason: MUSCLE SPASMS Last Admin: 02/01/20 09:15 Dose: 10 mg Documented by: Cyanocobalamin (Vitamin B12 -) 1,000 mcg PO DAILY [facility] Last Admin: 02/01/20 09:16 Dose: 1,000 mcg Documented by: Diazepam (Valium Injection -) 5 mg IM ONCE PRN PRN Reason: ANXIETY Docusate Sodium (Colace -) 100 mg PO Q8H PRN PRN Reason: CONSTIPATION Hydrocortisone (Hytone 1% Cream -) 1 applic TP Q24H PRN PRN Reason: FOR ITCHING Daptomycin 500 mg/ Sodium (Chloride) 50 mls @ 100 mls/hr IVPB Q24H [facility]; Protocol Last Admin: 01/31/20 17:07 Dose: Not Given Documented by: Meropenem 1 gm/ Dextrose 100 mls @ 200 mls/hr IVPB Q12H [facility] Last Admin: 02/01/20 09:15 Dose: 200 mls/hr Documented by: Insulin Aspart (Novolog Vial Sliding Scale -) 1 vial SQ ACHS [facility]; Protocol Last Admin: 02/01/20 06:11 Dose: Not Given Documented by: Lidocaine (Lidoderm Patch -) 1 patch TP DAILY [facility] Last Admin: 02/01/20 09:14 Dose: 1 patch Documented by: Metoprolol Tartrate (Lopressor Injection -) 5 mg IVPUSH Q6H PRN PRN Reason: HYPERTENSION Last Admin: 01/30/20 13:01 Dose: 5 mg Documented by: Miscellaneous (Lidoderm Patch Removal) 1 each MC DAILY@2200 [facility] Last Admin: 01/31/20 21:34 Dose: Not Given Documented by: Olanzapine (Zyprexa -) 5 mg PO HS [facility] Last Admin: 01/31/20 22:32 Dose: 5 mg Documented by: Pramipexole Dihydrochloride (Mirapex -) 0.25 mg PO BID [facility] Last Admin: 02/01/20 09:16 Dose: 0.25 mg Documented by: Rivaroxaban (Xarelto) 15 mg PO DAILY@1800 [facility] Sodium Zirconium Cyclosilicate (Lokelma) 10 gm PO DAILY [facility] Last Admin: 02/01/20 11:31 Dose: Not Given Documented by: - Objective Vital Signs: Vital Signs Temperature 98.8 F 02/01/20 10:00 Pulse Rate 84 02/01/20 10:00 Respiratory Rate 02/01/20 10:00 Blood Pressure 152/82 02/01/20 10:00 O2 Sat by Pulse Oximetry (%) 97 02/01/20 09:00 Constitutional: Yes: Calm Eyes: Yes: Conjunctiva Clear HENT: Yes: Atraumatic Neck: Yes: Supple Cardiovascular: Yes: S1, S2 Respiratory: Yes: CTA Bilaterally Gastrointestinal: Yes: Soft Genitourinary: Yes: Incontinence Musculoskeletal: Yes: Muscle Weakness Edema: No Integumentary: Yes: WNL Neurological: Yes: Confusion Labs: CBC, BMP 01/28/20 09:30 01/31/20 09:30 INR, PTT INR 1.57 (0.83-1.09) H 01/20/20 06:45 Problem List - Problems (1) ELIZABETH (acute kidney injury) Code(s): N17.9 - ACUTE KIDNEY FAILURE, UNSPECIFIED Assessment/Plan Current Medications Generic Name Dose Route Start Last Admin Trade Name Freq PRN Reason Stop Dose Admin Acetaminophen 650 mg 02/01/20 11:34 Tylenol Oral Solution - PO Q6H PRN PAIN 1-3 Amino Acids 30 ml 01/29/20 17:30 02/01/20 09:15 Prosource No Carb Liquid Pkt PO 30 ml BID@0800,1730 [facility] Administration Baclofen 10 mg 01/31/20 21:03 02/01/20 09:15 Lioresal - PO 10 mg Q8H PRN Administration MUSCLE SPASMS Cyanocobalamin 1,000 mcg 02/01/20 10:00 02/01/20 09:16 Vitamin B12 - PO 1,000 mcg DAILY [facility] Administration Diazepam 5 mg 01/31/20 23:20 Valium Injection - IM ONCE PRN ANXIETY Docusate Sodium 100 mg 01/31/20 21:03 Colace - PO Q8H PRN CONSTIPATION Hydrocortisone 1 applic 01/31/20 21:03 Hytone 1% Cream - TP Q24H PRN FOR ITCHING Daptomycin 500 mg/ Sodium 50 mls @ 100 mls/hr 01/28/20 15:30 01/31/20 17:07 Chloride IVPB Not Given Q24H [facility] Protocol Meropenem 1 gm/ Dextrose 100 mls @ 200 mls/hr 01/30/20 08:15 02/01/20 09:15 IVPB 200 mls/hr Q12H [facility] Administration Insulin Aspart 1 vial 01/31/20 22:00 02/01/20 06:11 Novolog Vial Sliding Scale - SQ Not Given ACHS [facility] Protocol Lidocaine 1 patch 02/01/20 10:00 02/01/20 09:14 Lidoderm Patch - TP 1 patch DAILY [facility] Administration Metoprolol Tartrate 5 mg 01/30/20 12:19 01/30/20 13:01 Lopressor Injection - IVPUSH 5 mg Q6H PRN Administration HYPERTENSION Miscellaneous 1 each 01/31/20 22:00 01/31/20 21:34 Lidoderm Patch Removal MC Not Given DAILY@2200 [facility] Olanzapine 5 mg 01/31/20 22:00 01/31/20 22:32 Zyprexa - PO 5 mg HS [facility] Administration Pramipexole Dihydrochloride 0.25 mg 01/31/20 22:00 02/01/20 09:16 Mirapex - PO 0.25 mg BID [facility] Administration Rivaroxaban 15 mg 02/01/20 18:00 Xarelto PO DAILY@1800 [facility] Sodium Zirconium Cyclosilicate 10 gm 01/31/20 18:00 02/01/20 11:31 Lokelma PO Not Given DAILY [facility] Impression 1. ELIZABETH 2. sepsis 3. shock 4. CHF 5. hx of htn 6. epidural abscess 7. ut 8. a-fib 9. hyponatremia 10. hyperkalemia Plan - check cmp if she agrees - cont lokelma - encourage po intake - cont abx - pt remains agitated - monitor bp - avoid nsaids - renal dose meds
[2020-02-01] MEDS ORDERED: SODIUM CHLORIDE 0.45% 1,000 ML IV SCH (12:30)
--- NOTE | 2020-02-01 13:20 | PN ---
Progress Note, Physician History of Present Illness: stable much better - Current Medication List Current Medications: Active Medications Acetaminophen (Tylenol Oral Solution -) 650 mg PO Q6H PRN PRN Reason: PAIN 1-3 Amino Acids (Prosource No Carb Liquid Pkt) 30 ml PO BID@0800,1730 [facility] Last Admin: 02/01/20 09:15 Dose: 30 ml Documented by: Baclofen (Lioresal -) 10 mg PO Q8H PRN PRN Reason: MUSCLE SPASMS Last Admin: 02/01/20 09:15 Dose: 10 mg Documented by: Cyanocobalamin (Vitamin B12 -) 1,000 mcg PO DAILY [facility] Last Admin: 02/01/20 09:16 Dose: 1,000 mcg Documented by: Diazepam (Valium Injection -) 5 mg IM ONCE PRN PRN Reason: ANXIETY Docusate Sodium (Colace -) 100 mg PO Q8H PRN PRN Reason: CONSTIPATION Hydrocortisone (Hytone 1% Cream -) 1 applic TP Q24H PRN PRN Reason: FOR ITCHING Daptomycin 500 mg/ Sodium (Chloride) 50 mls @ 100 mls/hr IVPB Q24H [facility]; Protocol Last Admin: 01/31/20 17:07 Dose: Not Given Documented by: Meropenem 1 gm/ Dextrose 100 mls @ 200 mls/hr IVPB Q12H [facility] Last Admin: 02/01/20 09:15 Dose: 200 mls/hr Documented by: Sodium Chloride (1/2 Normal Saline) 1,000 mls @ 42 mls/hr IV ASDIR [facility] Stop: 02/02/20 00:29 Last Admin: 02/01/20 12:34 Dose: 42 mls/hr Documented by: Insulin Aspart (Novolog Vial Sliding Scale -) 1 vial SQ ACHS [facility]; Protocol Last Admin: 02/01/20 12:21 Dose: 2 units Documented by: Lidocaine (Lidoderm Patch -) 1 patch TP DAILY [facility] Last Admin: 02/01/20 09:14 Dose: 1 patch Documented by: Metoprolol Tartrate (Lopressor Injection -) 5 mg IVPUSH Q6H PRN PRN Reason: HYPERTENSION Last Admin: 01/30/20 13:01 Dose: 5 mg Documented by: Miscellaneous (Lidoderm Patch Removal) 1 each MC DAILY@2200 [facility] Last Admin: 01/31/20 21:34 Dose: Not Given Documented by: Olanzapine (Zyprexa -) 5 mg PO HS [facility] Last Admin: 01/31/20 22:32 Dose: 5 mg Documented by: Pramipexole Dihydrochloride (Mirapex -) 0.25 mg PO BID [facility] Last Admin: 02/01/20 09:16 Dose: 0.25 mg Documented by: Rivaroxaban (Xarelto) 15 mg PO DAILY@1800 [facility] Sodium Zirconium Cyclosilicate (Lokelma) 10 gm PO DAILY [facility] Last Admin: 02/01/20 11:31 Dose: Not Given Documented by: - Objective Vital Signs: Vital Signs Temperature 98.8 F 02/01/20 10:00 Pulse Rate 84 02/01/20 10:00 Respiratory Rate 02/01/20 10:00 Blood Pressure 152/82 02/01/20 10:00 O2 Sat by Pulse Oximetry (%) 97 02/01/20 09:00 Constitutional: Yes: No Distress, Calm Cardiovascular: Yes: S1, S2 Respiratory: Yes: Regular, CTA Bilaterally Gastrointestinal: Yes: Normal Bowel Sounds, Soft Musculoskeletal: Yes: WNL Extremities: Yes: Other (foot drop) Neurological: Yes: Alert, Oriented Labs: CBC, BMP 01/28/20 09:30 01/31/20 09:30 INR, PTT INR 1.57 (0.83-1.09) H 01/20/20 06:45 Assessment/Plan roblem List - Problems (1) UTI (urinary tract infection) Code(s): N39.0 - URINARY TRACT INFECTION, SITE NOT SPECIFIED (2) Epidural abscess Code(s): G06.2 - EXTRADURAL AND SUBDURAL ABSCESS, UNSPECIFIED (3) Chronic systolic heart failure Code(s): I50.22 - CHRONIC SYSTOLIC (CONGESTIVE) HEART FAILURE (4) Diabetes Code(s): E11.9 - TYPE 2 DIABETES MELLITUS WITHOUT COMPLICATIONS Qualifiers: Diabetes mellitus type: type 2 (5) History of DVT (deep vein thrombosis) Code(s): Z86.718 - PERSONAL HISTORY OF OTHER VENOUS THROMBOSIS AND EMBOLISM (6) Hypertension Code(s): I10 - ESSENTIAL (PRIMARY) HYPERTENSION (7) Non-ischemic cardiomyopathy Code(s): I42.9 - CARDIOMYOPATHY, UNSPECIFIED (8) Obstructive sleep apnea Code(s): G47.33 - OBSTRUCTIVE SLEEP APNEA (ADULT) (PEDIATRIC) 9 vertebral abscess Assessment/Plan Bacteremia UTI Epidural abscess - s/p drainage/DASH in place DM CHF Hx of DVT AFIB continue meropenam dapto will need abx for 4 more weeks renal on board monitor renal function monitor drainage rest as per icu i would suggest reimaging of the back to see the status of collection cc 38 min
[2020-02-01 14:03] VITALS: BMI 36.0
[2020-02-01] MEDS: DAPTOMYCIN 500 MG in SODIUM CHLORIDE 50 ML IVPB SCH (15:07)
[2020-02-01] MEDS ORDERED: RIVAROXABAN 15 MG TABLET PO SCH (18:00)
[2020-02-01] MEDS: ACETAMINOPHEN 650 MG/20.3 ML ORAL SOLUTION (CUPS) PO PRN (21:00)
[2020-02-01] MEDS: LIDOCAINE PATCH REMOVAL MC SCH (21:01)
[2020-02-01] MEDS: OLANZapine 5 MG TABLET PO SCH (21:52)
[2020-02-02] MEDS ORDERED: PYRIDOXINE HCL 100 MG/1 ML VIAL IM ONE (02:13)
[2020-02-02] MEDS: INSULIN SLIDING SCALE (NOVOLOG) 1 VIAL SQ SCH ×4 (06:15→21:41)
[2020-02-02 07:06] LABS: BASO % 0.6 % (0-2.0); EOS % 3.6 % (0-4.5); HEMATOCRIT 34.1 % (32.4-45.2); HEMOGLOBIN 10.8 GM/dL (10.7-15.3); LYMPH % 18.9 % (8-40); MCH 27.1 pg (25.7-33.7); MCHC 31.7 g/dl (32.0-36.0); MEAN CELL VOLUME 85.7 fl (80-96); MEAN PLT VOLUME 7.6 fl (7.5-11.1); MONO % 12.4 % (3.8-10.2); NEUT % 64.5 % (42.8-82.8); PLATELET COUNT 337 K/MM3 (134-434); RBC 3.98 M/mm3 (3.60-5.2); RDW 18.9 % (11.6-15.6); WHITE BLOOD COUNT 8.5 K/mm3 (4.0-10.0)
[2020-02-02 07:17] LABS: BLOOD UREA NITROGEN 12.6 mg/dL (7-18); CALCIUM 8.2 mg/dL (8.5-10.1); CREATININE 0.7 mg/dL (0.55-1.3)
[2020-02-02] MEDS ORDERED: MEROPENEM 1 GM VIAL (RESTRICTED TO ID) IVPB ONE (08:03)
[2020-02-02] MEDS ORDERED: DEXTROSE 5%-WATER 100 ML IVPB ONE (08:03)
[2020-02-02] MEDS ORDERED: PT OWN MED DRAWER 7, Y5N ONE (08:04)
--- NOTE | 2020-02-02 08:08 | PN ---
Progress Note, Physician Chief Complaint: back pain History of Present Illness: does not feel disoriented/confused today denies leg swelling or sob/orthopnea no cp/heaviness no syncope no cigs - Current Medication List Current Medications: Active Medications Acetaminophen (Tylenol Oral Solution -) 650 mg PO Q6H PRN PRN Reason: PAIN 1-3 Last Admin: 02/01/20 21:00 Dose: 650 mg Documented by: Amino Acids (Prosource No Carb Liquid Pkt) 30 ml PO BID@0800,1730 [facility] Last Admin: 02/01/20 17:09 Dose: Not Given Documented by: Baclofen (Lioresal -) 10 mg PO Q8H PRN PRN Reason: MUSCLE SPASMS Last Admin: 02/01/20 09:15 Dose: 10 mg Documented by: Cyanocobalamin (Vitamin B12 -) 1,000 mcg PO DAILY [facility] Last Admin: 02/01/20 09:16 Dose: 1,000 mcg Documented by: Diazepam (Valium Injection -) 5 mg IM ONCE PRN PRN Reason: ANXIETY Docusate Sodium (Colace -) 100 mg PO Q8H PRN PRN Reason: CONSTIPATION Hydrocortisone (Hytone 1% Cream -) 1 applic TP Q24H PRN PRN Reason: FOR ITCHING Daptomycin 500 mg/ Sodium (Chloride) 50 mls @ 100 mls/hr IVPB Q24H [facility]; Jose R col Last Admin: 02/01/20 15:07 Dose: 100 mls/hr Documented by: Meropenem 1 gm/ Dextrose 100 mls @ 200 mls/hr IVPB Q12H [facility] Last Admin: 02/01/20 20:57 Dose: 200 mls/hr Documented by: Insulin Aspart (Novolog Vial Sliding Scale -) 1 vial SQ ACHS [facility]; Protocol Last Admin: 02/02/20 06:15 Dose: 2 units Documented by: Lidocaine (Lidoderm Patch -) 1 patch TP DAILY [facility] Last Admin: 02/01/20 09:14 Dose: 1 patch Documented by: Metoprolol Tartrate (Lopressor Injection -) 5 mg IVPUSH Q6H PRN PRN Reason: HYPERTENSION Last Admin: 01/30/20 13:01 Dose: 5 mg Documented by: Miscellaneous (Lidoderm Patch Removal) 1 each MC DAILY@2200 [facility] Last Admin: 02/01/20 21:01 Dose: Not Given Documented by: Olanzapine (Zyprexa -) 5 mg PO HS [facility] Last Admin: 02/01/20 21:52 Dose: 5 mg Documented by: Pramipexole Dihydrochloride (Mirapex -) 0.25 mg PO BID [facility] Last Admin: 02/01/20 21:02 Dose: 0.25 mg Documented by: Rivaroxaban (Xarelto) 15 mg PO DAILY@1800 [facility] Last Admin: 02/01/20 17:09 Dose: 15 mg Documented by: Sodium Zirconium Cyclosilicate (Lokelma) 10 gm PO DAILY [facility] Last Admin: 02/01/20 11:31 Dose: Not Given Documented by: - Objective Vital Signs: Vital Signs Temperature 97.7 F 02/02/20 01:55 Pulse Rate 90 02/02/20 06:33 Respiratory Rate 02/02/20 06:33 Blood Pressure 118/65 02/02/20 06:33 O2 Sat by Pulse Oximetry (%) 97 02/01/20 21:00 Constitutional: Yes: No Distress, Calm Eyes: No: Sclera Icterus HENT: No: Nasal Congestion Cardiovascular: Yes: Pulse Irregular, S1, S2, Other (PMI non diplaced). No: JVD, Gallop, Murmur Respiratory: Yes: CTA Bilaterally. No: Accessory Muscle Use Gastrointestinal: Yes: Normal Bowel Sounds, Soft. 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 REC: epidural abscess s/p DASH drain possible drain infection here, sepsis, UTI: - manage per surgery, ID, hospitalist team acute renal failure: -Suspect ATN due to periods of intermittent hypotension -Renal following -cr improved -pressors off now -renally dosed meds, adjusted Xarelto for now Hypotension: -bp still on low side, have been holding coreg -volume depletion/sepsis likely etiology, BP normalized, s/p DASH drain removed chronic systolic CHF, nonischemic cardiomyopathy, moderate MR: -known nonisch CMP with normal coronaries on cath x 2 -EF has fluctuated 35-55% over the years, likely in relation to severity of untreated NICHOLE, vs ? diabetic (uncontrolled glycemic status, does not f/u with PMD despite repeatedly advised to do so) -EF moderately reduced, last echo here EF 35-40% -does not appear vol overloaded now, no accurate weights trend available. -cont bb -in setting of persistent intermittent hypotension, torsemide (home dose 50 qd) and entresto held. BP has stabilized, K high normal range. Trial resume Entresto 24-26 with low dose torsemide to start (20mg), to help with hyperkalemia tendencies)--monitor daily labs PAF: - Cont Xarelto, increase back to 20mg dose as GFR has normalized - RVR at times, now in sr after 1 dose of iv dig - not on any AVN blockers, HRs often > 110, up to 140s. risk of HF decompensation. start metopr succinate 25 am, 12.5 pm - monitoring on tele DVT/PE with history of filter: -cont with AC NICHOLE: -not using CPAP Uncontrolled DM: -mgmt per hospitalist team -check A1c
[2020-02-02] MEDS: AMINO ACIDS/PROTEIN HYDROLYS 30 ML LIQUID.PKT PO SCH ×2 (08:34→16:44)
[2020-02-02] MEDS: SACUBITRIL/VALSARTAN 24 MG-26 MG TABLET PO SCH ×2 (09:47→22:18)
[2020-02-02] MEDS: TORSEMIDE 20 MG TABLET (FP) PO SCH (09:47)
[2020-02-02] MEDS: PRAMIPEXOLE DIHYDROCHLORIDE 0.25 MG TABLET PO SCH ×2 (09:47→21:40)
[2020-02-02] MEDS: CYANOCOBALAMIN 1,000 MCG TABLET (FP) PO SCH (09:48)
[2020-02-02] MEDS: LIDOCAINE 5% TOPICAL PATCH TP SCH (09:48)
--- NOTE | 2020-02-02 09:59 | PN ---
Progress Note (short form) - Note Progress Note: She is comfortable has no pain no fever no chills status post DASH drain removal yesterday. Vital Signs Period Temp Pulse Resp BP Sys/Marcelo Pulse Ox Last 24 Hr 97.7 F-99.1 F 79-120 - 118-152/65-82 97-98 Patient is comfortable HEENT normal Neck supple no JVD Lungs clear no wheezing Abdomen nontender no organomegaly bowel sounds normal Extremities no edema no cyanosis normal pulses Neurologically he is alert awake oriented, nonfocal Skin no rash noted CBC, BMP 02/02/20 05:25 02/02/20 05:25 Assessment and plan [id number] with h/o CHF (EF 35-40%), RA, DM 2, HTN, Hx DVT/PE, a fib (on Xarelto), known non-ischemic cardiomyopathy, multiple spine surgeries, s/p L4/[address] Borjas then L5/S1 seroma with recent epidural abscess drainage s/p I and D, complex wound closure and wound vac placement 11/26-s/p IV abx who presented to ED 01/19/20 for weakness and malaise x4 days. Found with UTI, but septic since yesterday and c/f possibility of DASH drain infection. Sepsis ,, abscess, etc. Much improved.-Continue meropenem and daptomycin Confusion/agitation -she is much improved today alert awake less agitated DM -ISS, FSBG TIDAC Chronic AF, h/o CHF with likely exacerbation -c/w Xarelto, Cardizem (holding parameters) ELIZABETH ,completely back to normal Full-body itching, much improved FEN: Hyponatremia greatly improved PPX - DVT: Xarelto, SCDs - GI: Diabetic diet Disposition she should be going for short-term rehabilitation. Will discuss with rn case manager hospice . Visit type - Emergency Visit Emergency Visit: Yes ED Registration Date: 01/19/20 Care time: The patient presented to the Emergency Department on the above date and was hospitalized for further evaluation of their emergent condition. - New Patient This patient is new to me today: No - Critical Care Critical Care patient: No - Discharge Referral Referred to [facility] Med P.C.: No
--- NOTE | 2020-02-02 11:20 | PN ---
Progress Note (short form) - Note Progress Note: PULMONARY LYING FLAT/NOT ON O2 APPEARS COMFORTABLE NOT DYSPNEIC 98% SPO2 ON R/A VSS/AFEBRILE Gen: alert/answers questions appropriately Heart: tachycardic, regular Lung: clear Abd: soft, nontender Ext: no edema labs/meds/images/micro reviewed ASSESSMENT AND PLAN: r/o Paraspinal Abscess s/p drainage UTI Sepsis LV Systolic Dysfunction Atrial Fibrillation with RVR HTN DM Rheumatoid Arthritis h/o DVT/PE Hyponatremia Anemia - continue antibiotics per ID - rate control - continue anticoagulation - pain control - aspiration precautions Alysia MILLER MD
[2020-02-02] MEDS: SODIUM ZIRCONIUM CYCLOSILICATE (LOKELMA) 5 GM PACKET PO SCH (11:48)
--- NOTE | 2020-02-02 11:51 | PN ---
Progress Note, Physician History of Present Illness: stable mental status back to normal - Current Medication List Current Medications: Active Medications Acetaminophen (Tylenol Oral Solution -) 650 mg PO Q6H PRN PRN Reason: PAIN 1-3 Last Admin: 02/01/20 21:00 Dose: 650 mg Documented by: Amino Acids (Prosource No Carb Liquid Pkt) 30 ml PO BID@0800,1730 [facility] Last Admin: 02/02/20 08:34 Dose: 30 ml Documented by: Baclofen (Lioresal -) 10 mg PO Q8H PRN PRN Reason: MUSCLE SPASMS Last Admin: 02/01/20 09:15 Dose: 10 mg Documented by: Cyanocobalamin (Vitamin B12 -) 1,000 mcg PO DAILY [facility] Last Admin: 02/02/20 09:48 Dose: 1,000 mcg Documented by: Diazepam (Valium Injection -) 5 mg IM ONCE PRN PRN Reason: ANXIETY Docusate Sodium (Colace -) 100 mg PO Q8H PRN PRN Reason: CONSTIPATION Hydrocortisone (Hytone 1% Cream -) 1 applic TP Q24H PRN PRN Reason: FOR ITCHING Daptomycin 500 mg/ Sodium (Chloride) 50 mls @ 100 mls/hr IVPB Q24H [facility]; Protocol Last Admin: 02/01/20 15:07 Dose: 100 mls/hr Documented by: Insulin Aspart (Novolog Vial Sliding Scale -) 1 vial SQ ACHS [facility]; Protocol Last Admin: 02/02/20 11:48 Dose: 2 units Documented by: Lidocaine (Lidoderm Patch -) 1 patch TP DAILY [facility] Last Admin: 02/02/20 09:48 Dose: 1 patch Documented by: Metoprolol Tartrate (Lopressor Injection -) 5 mg IVPUSH Q6H PRN PRN Reason: HYPERTENSION Last Admin: 01/30/20 13:01 Dose: 5 mg Documented by: Miscellaneous (Lidoderm Patch Removal) 1 each MC DAILY@2200 [facility] Last Admin: 02/01/20 21:01 Dose: Not Given Documented by: Olanzapine (Zyprexa -) 5 mg PO HS [facility] Last Admin: 02/01/20 21:52 Dose: 5 mg Documented by: Pramipexole Dihydrochloride (Mirapex -) 0.25 mg PO BID [facility] Last Admin: 06/27/20 09:47 Dose: 0.25 mg Documented by: Rivaroxaban (Xarelto) 20 mg PO DAILY@1800 [facility] Sacubitril/Valsartan (Entresto 24 Mg-26 Mg Tablet) 1 tab PO BID [facility] Last Admin: 02/02/20 09:47 Dose: 1 tab Documented by: Sodium Zirconium Cyclosilicate (Lokelma) 10 gm PO DAILY [facility] Last Admin: 02/02/20 11:48 Dose: Not Given Documented by: Torsemide (Demadex -) 20 mg PO DAILY [facility] Last Admin: 02/02/20 09:47 Dose: 20 mg Documented by: - Objective Vital Signs: Vital Signs Temperature 97.7 F 02/02/20 01:55 Pulse Rate 90 02/02/20 06:33 Respiratory Rate 02/02/20 06:33 Blood Pressure 118/65 02/02/20 06:33 O2 Sat by Pulse Oximetry (%) 98 02/02/20 08:38 Constitutional: Yes: No Distress, Calm Cardiovascular: Yes: S1, S2 Respiratory: Yes: Regular, CTA Bilaterally Gastrointestinal: Yes: Normal Bowel Sounds, Soft Musculoskeletal: Yes: WNL Extremities: Yes: Other Neurological: Yes: Alert, Oriented Psychiatric: Yes: Alert, Oriented Labs: CBC, BMP 02/02/20 05:25 02/02/20 05:25 INR, PTT INR 1.57 (0.83-1.09) H 01/20/20 06:45 Assessment/Plan roblem List - Problems (1) UTI (urinary tract infection) Code(s): N39.0 - URINARY TRACT INFECTION, SITE NOT SPECIFIED (2) Epidural abscess Code(s): G06.2 - EXTRADURAL AND SUBDURAL ABSCESS, UNSPECIFIED (3) Chronic systolic heart failure Code(s): I50.22 - CHRONIC SYSTOLIC (CONGESTIVE) HEART FAILURE (4) Diabetes Code(s): E11.9 - TYPE 2 DIABETES MELLITUS WITHOUT COMPLICATIONS Qualifiers: Diabetes mellitus type: type 2 (5) History of DVT (deep vein thrombosis) Code(s): Z86.718 - PERSONAL HISTORY OF OTHER VENOUS THROMBOSIS AND EMBOLISM (6) Hypertension Code(s): I10 - ESSENTIAL (PRIMARY) HYPERTENSION (7) Non-ischemic cardiomyopathy Code(s): I42.9 - CARDIOMYOPATHY, UNSPECIFIED (8) Obstructive sleep apnea Code(s): G47.33 - OBSTRUCTIVE SLEEP APNEA (ADULT) (PEDIATRIC) 9 vertebral abscess Assessment/Plan Bacteremia UTI Epidural abscess - s/p drainage/DASH in place DM CHF Hx of DVT AFIB continue meropenam dapto will need abx for 4 more weeks renal on board monitor renal function monitor drainage i would suggest reimaging of the back to see the status of collection
[2020-02-02] MEDS: DAPTOMYCIN 500 MG in SODIUM CHLORIDE 50 ML IVPB SCH (14:54)
[2020-02-02] MEDS ORDERED: metoPROLOL SUCCINATE 25 MG TAB.SR.24H (FP) PO ONE (16:01)
[2020-02-02] MEDS: ONDANSETRON 4 MG/2 ML VIAL IVPB PRN ×2 (16:11→22:18)
[2020-02-02] MEDS: RIVAROXABAN 20 MG TABLET PO SCH (18:23)
--- NOTE | 2020-02-02 19:28 | PN ---
Progress Note, Physician History of Present Illness: Pt seen and examined at bedside. She is calmer. She denies shortness of breath. - Current Medication List Current Medications: Active Medications Acetaminophen (Tylenol Oral Solution -) 650 mg PO Q6H PRN PRN Reason: PAIN 1-3 Last Admin: 02/01/20 21:00 Dose: 650 mg Documented by: Amino Acids (Prosource No Carb Liquid Pkt) 30 ml PO BID@0800,1730 [facility] Last Admin: 02/02/20 16:44 Dose: 30 ml Documented by: Baclofen (Lioresal -) 10 mg PO Q8H PRN PRN Reason: MUSCLE SPASMS Last Admin: 02/01/20 09:15 Dose: 10 mg Documented by: Cyanocobalamin (Vitamin B12 -) 1,000 mcg PO DAILY [facility] Last Admin: 02/02/20 09:48 Dose: 1,000 mcg Documented by: Diazepam (Valium Injection -) 5 mg IM ONCE PRN PRN Reason: ANXIETY Docusate Sodium (Colace -) 100 mg PO Q8H PRN PRN Reason: CONSTIPATION Hydrocortisone (Hytone 1% Cream -) 1 applic TP Q24H PRN PRN Reason: FOR ITCHING Daptomycin 500 mg/ Sodium (Chloride) 50 mls @ 100 mls/hr IVPB Q24H [facility]; Protocol Last Admin: 02/02/20 14:54 Dose: 100 mls/hr Documented by: Insulin Aspart (Novolog Vial Sliding Scale -) 1 vial SQ ACHS [facility]; Protocol Last Admin: 02/02/20 16:44 Dose: 2 units Documented by: Lidocaine (Lidoderm Patch -) 1 patch TP DAILY [facility] Last Admin: 02/02/20 09:48 Dose: 1 patch Documented by: Metoprolol Succinate (Toprol Xl -) 25 mg PO DAILY [facility] Metoprolol Succinate (Toprol Xl -) 12.5 mg PO 1800 [facility] Metoprolol Tartrate (Lopressor Injection -) 5 mg IVPUSH Q6H PRN PRN Reason: HYPERTENSION Last Admin: 01/30/20 13:01 Dose: 5 mg Documented by: Miscellaneous (Lidoderm Patch Removal) 1 each MC DAILY@2200 [facility] Last Admin: 02/01/20 21:01 Dose: Not Given Documented by: Olanzapine (Zyprexa -) 5 mg PO HS [facility] Last Admin: 02/01/20 21:52 Dose: 5 mg Documented by: Ondansetron HCl (Zofran Injection) 8 mg IVPB Q6H PRN PRN Reason: NAUSEA AND/OR VOMITING Last Admin: 02/02/20 16:11 Dose: 8 mg Documented by: Pantoprazole Sodium (Protonix -) 20 mg PO DAILY [facility] Pramipexole Dihydrochloride (Mirapex -) 0.25 mg PO BID [facility] Last Admin: 02/02/20 09:47 Dose: 0.25 mg Documented by: Rivaroxaban (Xarelto) 20 mg PO DAILY@1800 [facility] Last Admin: 02/02/20 18:23 Dose: 20 mg Documented by: Sacubitril/Valsartan (Entresto 24 Mg-26 Mg Tablet) 1 tab PO BID [facility] Last Admin: 02/02/20 09:47 Dose: 1 tab Documented by: Sodium Zirconium Cyclosilicate (Lokelma) 10 gm PO DAILY [facility] Last Admin: 02/02/20 11:48 Dose: Not Given Documented by: Torsemide (Demadex -) 20 mg PO DAILY [facility] Last Admin: 02/02/20 09:47 Dose: 20 mg Documented by: - Objective Vital Signs: Vital Signs Temperature 97.9 F 02/02/20 18:28 Pulse Rate 117 H 02/02/20 18:28 Respiratory Rate 18 02/02/20 18:28 Blood Pressure 154/87 02/02/20 18:28 O2 Sat by Pulse Oximetry (%) 98 02/02/20 08:38 Constitutional: Yes: Calm Eyes: Yes: Conjunctiva Clear HENT: Yes: Atraumatic Cardiovascular: Yes: S1, S2 Respiratory: Yes: CTA Bilaterally Gastrointestinal: Yes: Soft Genitourinary: Yes: Incontinence Extremities: Yes: WNL Edema: No Neurological: Yes: Oriented Labs: CBC, BMP 02/02/20 05:25 02/02/20 05:25 INR, PTT INR 1.57 (0.83-1.09) H 01/20/20 06:45 Problem List - Problems (1) ELIZABETH (acute kidney injury) Code(s): N17.9 - ACUTE KIDNEY FAILURE, UNSPECIFIED Assessment/Plan Current Medications Generic Name Dose Route Start Last Admin Trade Name Freq PRN Reason Stop Dose Admin Acetaminophen 650 mg 02/01/20 11:34 02/01/20 21:00 Tylenol Oral Solution - PO 650 mg Q6H PRN Administration PAIN 1-3 Amino Acids 30 ml 01/29/20 17:30 02/02/20 16:44 Prosource No Carb Liquid Pkt PO 30 ml BID@0800,1730 [facility] Administration Baclofen 10 mg 01/31/20 21:03 02/01/20 09:15 Lioresal - PO 10 mg Q8H PRN Administration MUSCLE SPASMS Cyanocobalamin 1,000 mcg 02/01/20 10:00 02/02/20 09:48 Vitamin B12 - PO 1,000 mcg DAILY [facility] Administration Diazepam 5 mg 01/31/20 23:20 Valium Injection - IM ONCE PRN ANXIETY Docusate Sodium 100 mg 01/31/20 21:03 Colace - PO Q8H PRN CONSTIPATION Hydrocortisone 1 applic 01/31/20 21:03 Hytone 1% Cream - TP Q24H PRN FOR ITCHING Daptomycin 500 mg/ Sodium 50 mls @ 100 mls/hr 01/28/20 15:30 02/02/20 14:54 Chloride IVPB 100 mls/hr Q24H [facility] Administration Protocol Insulin Aspart 1 vial 01/31/20 22:00 02/02/20 16:44 Novolog Vial Sliding Scale - SQ 2 units ACHS [facility] Administration Protocol Lidocaine 1 patch 02/01/20 10:00 02/02/20 09:48 Lidoderm Patch - TP 1 patch DAILY [facility] Administration Metoprolol Succinate 25 mg 02/03/20 10:00 Toprol Xl - PO DAILY [facility] Metoprolol Succinate 12.5 mg 02/03/20 18:00 Toprol Xl - PO 1800 [facility] Metoprolol Tartrate 5 mg 01/30/20 12:19 01/30/20 13:01 Lopressor Injection - IVPUSH 5 mg Q6H PRN Administration HYPERTENSION Miscellaneous 1 each 01/31/20 22:00 02/01/20 21:01 Lidoderm Patch Removal MC Not Given DAILY@2200 [facility] Olanzapine 5 mg 01/31/20 22:00 02/01/20 21:52 Zyprexa - PO 5 mg HS [facility] Administration Ondansetron HCl 8 mg 02/02/20 15:48 02/02/20 16:11 Zofran Injection IVPB 8 mg Q6H PRN Administration NAUSEA AND/OR VOMITING Pantoprazole Sodium 20 mg 02/03/20 10:00 Protonix - PO DAILY [facility] Pramipexole Dihydrochloride 0.25 mg 01/31/20 22:00 02/02/20 09:47 Mirapex - PO 0.25 mg BID [facility] Administration Rivaroxaban 20 mg 02/02/20 18:00 02/02/20 18:23 Xarelto PO 20 mg DAILY@1800 [facility] Administration Sacubitril/Valsartan 1 tab 02/02/20 10:00 02/02/20 09:47 Entresto 24 Mg-26 Mg Tablet PO 1 tab BID [facility] Administration Sodium Zirconium Cyclosilicate 10 gm 01/31/20 18:00 02/02/20 11:48 Lokelma PO Not Given DAILY [facility] Torsemide 20 mg 02/02/20 10:00 02/02/20 09:47 Demadex - PO 20 mg DAILY [facility] Administration Impression 1. ELIZABETH 2. sepsis 3. shock 4. CHF 5. hx of htn 6. epidural abscess 7. ut 8. a-fib 9. hyponatremia 10. 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
[2020-02-02] MEDS: LIDOCAINE PATCH REMOVAL MC SCH (21:35)
[2020-02-02] MEDS: OLANZapine 5 MG TABLET PO SCH (21:40)
[2020-02-03] MEDS: ACETAMINOPHEN 650 MG/20.3 ML ORAL SOLUTION (CUPS) PO PRN (01:35)
[2020-02-03] MEDS: INSULIN SLIDING SCALE (NOVOLOG) 1 VIAL SQ SCH ×4 (06:03→21:40)
[2020-02-03 07:06] LABS: ALBUMIN 2.2 g/dl (3.4-5.0); BILIRUBIN,TOTAL 0.4 mg/dL (0.2-1); BLOOD UREA NITROGEN 15.3 mg/dL (7-18); CALCIUM 8.4 mg/dL (8.5-10.1); CREATININE 0.9 mg/dL (0.55-1.3); TOT PROT 5.9 g/dl (6.4-8.2)
--- NOTE | 2020-02-03 07:25 | PN ---
Progress Note, Physician Chief Complaint: weakness - Current Medication List Current Medications: Active Medications Acetaminophen (Tylenol Oral Solution -) 650 mg PO Q6H PRN PRN Reason: PAIN 1-3 Last Admin: 02/03/20 01:35 Dose: 650 mg Documented by: Amino Acids (Prosource No Carb Liquid Pkt) 30 ml PO BID@0800,1730 [facility] Last Admin: 02/02/20 16:44 Dose: 30 ml Documented by: Baclofen (Lioresal -) 10 mg PO Q8H PRN PRN Reason: MUSCLE SPASMS Last Admin: 02/01/20 09:15 Dose: 10 mg Documented by: Cyanocobalamin (Vitamin B12 -) 1,000 mcg PO DAILY [facility] Last Admin: 02/02/20 09:48 Dose: 1,000 mcg Documented by: Diazepam (Valium Injection -) 5 mg IM ONCE PRN PRN Reason: ANXIETY Docusate Sodium (Colace -) 100 mg PO Q8H PRN PRN Reason: CONSTIPATION Hydrocortisone (Hytone 1% Cream -) 1 applic TP Q24H PRN PRN Reason: FOR ITCHING Daptomycin 500 mg/ Sodium (Chloride) 50 mls @ 100 mls/hr IVPB Q24H [facility]; Protocol Last Admin: 02/02/20 14:54 Dose: 100 mls/hr Documented by: Insulin Aspart (Novolog Vial Sliding Scale -) 1 vial SQ ACHS [facility]; Protocol Last Admin: 02/03/20 06:03 Dose: 2 units Documented by: Lidocaine (Lidoderm Patch -) 1 patch TP DAILY [facility] Last Admin: 02/02/20 09:48 Dose: 1 patch Documented by: Metoprolol Succinate (Toprol Xl -) 25 mg PO DAILY [facility] Metoprolol Succinate (Toprol Xl -) 12.5 mg PO 1800 [facility] Metoprolol Tartrate (Lopressor Injection -) 5 mg IVPUSH Q6H PRN PRN Reason: HYPERTENSION Last Admin: 01/30/20 13:01 Dose: 5 mg Documented by: Miscellaneous (Lidoderm Patch Removal) 1 each MC DAILY@2200 [facility] Last Admin: 02/02/20 21:35 Dose: Not Given Documented by: Olanzapine (Zyprexa -) 5 mg PO HS [facility] Last Admin: 02/02/20 21:40 Dose: 5 mg Documented by: Ondansetron HCl (Zofran Injection) 8 mg IVPB Q6H PRN PRN Reason: NAUSEA AND/OR VOMITING Last Admin: 02/02/20 22:18 Dose: 8 mg Documented by: Pantoprazole Sodium (Protonix -) 20 mg PO DAILY [facility] Pramipexole Dihydrochloride (Mirapex -) 0.25 mg PO BID [facility] Last Admin: 02/02/20 21:40 Dose: 0.25 mg Documented by: Rivaroxaban (Xarelto) 20 mg PO DAILY@1800 [facility] Last Admin: 02/02/20 18:23 Dose: 20 mg Documented by: Sacubitril/Valsartan (Entresto 24 Mg-26 Mg Tablet) 1 tab PO BID [facility] Last Admin: 02/02/20 22:18 Dose: 1 tab Documented by: Sodium Zirconium Cyclosilicate (Lokelma) 10 gm PO DAILY [facility] Last Admin: 02/02/20 11:48 Dose: Not Given Documented by: Torsemide (Demadex -) 20 mg PO DAILY [facility] Last Admin: 02/02/20 09:47 Dose: 20 mg Documented by: - Objective Vital Signs: Vital Signs Temperature 97.7 F 02/03/20 06:00 Pulse Rate 90 02/03/20 06:00 Respiratory Rate 20 02/03/20 06:00 Blood Pressure 103/49 L 02/03/20 06:00 O2 Sat by Pulse Oximetry (%) 96 02/02/20 21:00 Labs: CBC, BMP 02/02/20 05:25 02/03/20 05:25 INR, PTT INR 1.57 (0.83-1.09) H 01/20/20 06:45 Assessment/Plan tele: NSR-->AF ranging 70s-140s bpm, mostly 110s range IMP: Epidural abscess, wound infection Acute renal failure Hyponatremia Acute on chronic systolic CHF, with what appears to be new LV dysfx from 2018 Moderate MR Prolonged QT PAF HTN 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 REC: epidural abscess s/p DASH drain possible drain infection here, sepsis, UTI: - manage per surgery, ID, hospitalist team acute renal failure: -Suspect ATN due to periods of intermittent hypotension -Renal following -cr improved -pressors off now -renally dosed meds, adjusted Xarelto for now Hypotension: -bp still on low side, have been holding coreg -volume depletion/sepsis likely etiology, BP normalized, s/p DASH drain removed chronic systolic CHF, nonischemic cardiomyopathy, moderate MR: -known nonisch CMP with normal coronaries on cath x 2 -EF has fluctuated 35-55% over the years, likely in relation to severity of unt reated NICHOLE, vs ? diabetic (uncontrolled glycemic status, does not f/u with PMD despite repeatedly advised to do so) -EF moderately reduced, last echo here EF 35-40% -does not appear vol overloaded now, no accurate weights trend available. -cont bb -in setting of persistent intermittent hypotension, torsemide (home dose 50 qd) and entresto held. BP has stabilized, K high normal range. Trial resume Entresto 24-26 with low dose torsemide to start (20mg), to help with hyperkalemia tendencies)--monitor daily labs PAF: - Cont Xarelto, increase back to 20mg dose as GFR has normalized - RVR at times, now in sr after 1 dose of iv dig - not on any AVN blockers, HRs often > 110, up to 140s. risk of HF decompensation. start metopr succinate 25 am, 12.5 pm - monitoring on tele DVT/PE with history of filter: -cont with AC NICHOLE: -not using CPAP Uncontrolled DM: -mgmt per hospitalist team -check A1c
[2020-02-03] MEDS ORDERED: PT OWN MED DRAWER 7, Y5N ONE ×2 (07:46→20:41)
[2020-02-03] MEDS: CYANOCOBALAMIN 1,000 MCG TABLET (FP) PO SCH (09:13)
[2020-02-03] MEDS: SACUBITRIL/VALSARTAN 24 MG-26 MG TABLET PO SCH ×2 (09:13→21:40)
[2020-02-03] MEDS: AMINO ACIDS/PROTEIN HYDROLYS 30 ML LIQUID.PKT PO SCH ×2 (09:13→16:40)
[2020-02-03] MEDS: PRAMIPEXOLE DIHYDROCHLORIDE 0.25 MG TABLET PO SCH ×2 (09:13→21:40)
[2020-02-03] MEDS: TORSEMIDE 20 MG TABLET (FP) PO SCH (09:13)
[2020-02-03] MEDS: LIDOCAINE 5% TOPICAL PATCH TP SCH (09:13)
[2020-02-03] MEDS: PANTOPRAZOLE 20 MG TABLET PO SCH (09:18)
[2020-02-03] MEDS ORDERED: metoPROLOL SUCCINATE 25 MG TAB.SR.24H (FP) PO SCH ×2 (10:00→18:00)
--- NOTE | 2020-02-03 10:34 | PN ---
Progress Note (short form) - Note Progress Note: She is comfortable has no pain no fever no chills Alert awake no distress Vital Signs Period Temp Pulse Resp BP Sys/Marcelo Pulse Ox Last 24 Hr 97.4 F-98.2 F 85-117 18-20 103-154/49-87 96-96 Patient is comfortable HEENT normal Neck supple no JVD Lungs clear no wheezing Abdomen nontender no organomegaly bowel sounds normal Extremities no edema no cyanosis normal pulses Neurologically he is alert awake oriented, nonfocal Skin no rash noted CBC, BMP 02/02/20 05:25 02/03/20 05:25 Assessment and plan [id number] with h/o CHF (EF 35-40%), RA, DM 2, HTN, Hx DVT/PE, a fib (on Xarelto), known non-ischemic cardiomyopathy, multiple spine surgeries, s/p L4/[address] Borjas then L5/S1 seroma with recent epidural abscess drainage s/p I and D, complex wound closure and wound vac placement 11/26-s/p IV abx who presented to ED 01/19/20 for weakness and malaise x4 days. Found with UTI, but septic since yesterday and c/f possibility of DASH drain infection. Sepsis ,, abscess, etc. Much improved.-Continue meropenem and daptomycin Confusion/agitation -she is much improved today alert awake and not agitated today DM -ISS, FSBG TIDAC Chronic AF, h/o CHF with likely exacerbation -c/w Xarelto, Cardizem (holding parameters) ELIZABETH ,completely back to normal Full-body itching, much improved FEN: Hyponatremia greatly improved PPX - DVT: Xarelto, SCDs - GI: Diabetic diet Disposition she should be going for short-term rehabilitation. Will discuss with window caser . Visit type - Emergency Visit Emergency Visit: Yes ED Registration Date: 01/19/20 Care time: The patient presented to the Emergency Department on the above date and was hospitalized for further evaluation of their emergent condition. - New Patient This patient is new to me today: No - Critical Care Critical Care patient: No - Discharge Referral Referred to [facility] Med P.C.: No
--- NOTE | 2020-02-03 11:27 | PN ---
Progress Note (short form) - Note Progress Note: PULMONARY LYING FLAT/NOT ON O2 APPEARS COMFORTABLE NOT DYSPNEIC 96% SPO2 ON R/A 1:1 VSS/AFEBRILE Gen: alert/answers questions appropriately Heart: tachycardic, regular Lung: clear Abd: soft, nontender Ext: no edema labs/meds/images/micro reviewed ASSESSMENT AND PLAN: r/o Paraspinal Abscess s/p drainage UTI Sepsis LV Systolic Dysfunction Atrial Fibrillation with RVR HTN DM Rheumatoid Arthritis h/o DVT/PE Hyponatremia Anemia - continue antibiotics per ID - rate control - continue anticoagulation - pain control - aspiration precautions Alysia MILLER MD
[2020-02-03] MEDS: SODIUM ZIRCONIUM CYCLOSILICATE (LOKELMA) 5 GM PACKET PO SCH (11:42)
--- NOTE | 2020-02-03 13:55 | PN ---
Progress Note, Physician - Current Medication List Current Medications: Active Medications Acetaminophen (Tylenol Oral Solution -) 650 mg PO Q6H PRN PRN Reason: PAIN 1-3 Last Admin: 02/03/20 01:35 Dose: 650 mg Documented by: Amino Acids (Prosource No Carb Liquid Pkt) 30 ml PO BID@0800,1730 [facility] Last Admin: 02/03/20 09:13 Dose: 30 ml Documented by: Baclofen (Lioresal -) 10 mg PO Q8H PRN PRN Reason: MUSCLE SPASMS Last Admin: 02/01/20 09:15 Dose: 10 mg Documented by: Cyanocobalamin (Vitamin B12 -) 1,000 mcg PO DAILY [facility] Last Admin: 02/03/20 09:13 Dose: 1,000 mcg Documented by: Diazepam (Valium Injection -) 5 mg IM ONCE PRN PRN Reason: ANXIETY Docusate Sodium (Colace -) 100 mg PO Q8H PRN PRN Reason: CONSTIPATION Hydrocortisone (Hytone 1% Cream -) 1 applic TP Q24H PRN PRN Reason: FOR ITCHING Daptomycin 500 mg/ Sodium (Chloride) 50 mls @ 100 mls/hr IVPB Q24H [facility]; Protocol Last Admin: 02/02/20 14:54 Dose: 100 mls/hr Documented by: Insulin Aspart (Novolog Vial Sliding Scale -) 1 vial SQ ACHS [facility]; Protocol Last Admin: 02/03/20 11:41 Dose: 6 units Documented by: Lidocaine (Lidoderm Patch -) 1 patch TP DAILY [facility] Last Admin: 02/03/20 09:13 Dose: 1 patch Documented by: Metoprolol Succinate (Toprol Xl -) 25 mg PO DAILY [facility] Last Admin: 02/03/20 09:18 Dose: 25 mg Documented by: Metoprolol Succinate (Toprol Xl -) 12.5 mg PO 1800 [facility] Metoprolol Tartrate (Lopressor Injection -) 5 mg IVPUSH Q6H PRN PRN Reason: HYPERTENSION Last Admin: 01/30/20 13:01 Dose: 5 mg Documented by: Miscellaneous (Lidoderm Patch Removal) 1 each MC DAILY@2200 [facility] Last Admin: 02/02/20 21:35 Dose: Not Given Documented by: Olanzapine (Zyprexa -) 5 mg PO HS [facility] Last Admin: 06/27/20 21:40 Dose: 5 mg Documented by: Ondansetron HCl (Zofran Injection) 8 mg IVPB Q6H PRN PRN Reason: NAUSEA AND/OR VOMITING Last Admin: 02/02/20 22:18 Dose: 8 mg Documented by: Pantoprazole Sodium (Protonix -) 20 mg PO DAILY [facility] Last Admin: 02/03/20 09:18 Dose: 20 mg Documented by: Pramipexole Dihydrochloride (Mirapex -) 0.25 mg PO BID [facility] Last Admin: 02/03/20 09:13 Dose: 0.25 mg Documented by: Rivaroxaban (Xarelto) 20 mg PO DAILY@1800 [facility] Last Admin: 02/02/20 18:23 Dose: 20 mg Documented by: Sacubitril/Valsartan (Entresto 24 Mg-26 Mg Tablet) 1 tab PO BID [facility] Last Admin: 02/03/20 09:13 Dose: 1 tab Documented by: Sodium Zirconium Cyclosilicate (Lokelma) 10 gm PO DAILY [facility] Last Admin: 02/03/20 11:42 Dose: Not Given Documented by: Torsemide (Demadex -) 20 mg PO DAILY [facility] Last Admin: 02/03/20 09:13 Dose: 20 mg Documented by: - Objective Vital Signs: Vital Signs Temperature 97.2 F L 02/03/20 10:00 Pulse Rate 90 02/03/20 10:00 Respiratory Rate 18 02/03/20 10:00 Blood Pressure 126/57 L 02/03/20 10:00 O2 Sat by Pulse Oximetry (%) 96 02/03/20 08:38 Labs: CBC, BMP 02/02/20 05:25 02/03/20 05:25 INR, PTT INR 1.57 (0.83-1.09) H 01/20/20 06:45
--- NOTE | 2020-02-03 13:58 | PN ---
Progress Note, Physician History of Present Illness: Pt seen and examined at bedside. She denies shortness of breath. She is awake and alert. - Current Medication List Current Medications: Active Medications Acetaminophen (Tylenol Oral Solution -) 650 mg PO Q6H PRN PRN Reason: PAIN 1-3 Last Admin: 02/03/20 01:35 Dose: 650 mg Documented by: Amino Acids (Prosource No Carb Liquid Pkt) 30 ml PO BID@0800,1730 [facility]EDS AT [facility] Last Admin: 02/03/20 09:13 Dose: 30 ml Documented by: Baclofen (Lioresal -) 10 mg PO Q8H PRN PRN Reason: MUSCLE SPASMS Last Admin: 02/01/20 09:15 Dose: 10 mg Documented by: Cyanocobalamin (Vitamin B12 -) 1,000 mcg PO DAILY [facility] 234 [facility]S AT [facility] Last Admin: 02/03/20 09:13 Dose: 1,000 mcg Documented by: Diazepam (Valium Injection -) 5 mg IM ONCE PRN PRN Reason: ANXIETY Docusate Sodium (Colace -) 100 mg PO Q8H PRN PRN Reason: CONSTIPATION Hydrocortisone (Hytone 1% Cream -) 1 applic TP Q24H PRN PRN Reason: FOR ITCHING Daptomycin 500 mg/ Sodium (Chloride) 50 mls @ 100 mls/hr IVPB Q24H [facility] 234 [facility]S AT [facility]; Protocol Last Admin: 02/02/20 14:54 Dose: 100 mls/hr Documented by: Insulin Aspart (Novolog Vial Sliding Scale -) 1 vial SQ ACHS [facility] 234 [facility]S [facility]; Protocol Last Admin: 02/03/20 11:41 Dose: 6 units Documented by: Lidocaine (Lidoderm Patch -) 1 patch TP DAILY [facility] 234 [facility]S [facility] Last Admin: 02/03/20 09:13 Dose: 1 patch Documented by: Metoprolol Succinate (Toprol Xl -) 25 mg PO DAILY [facility] 234 [facility] Last Admin: 02/03/20 09:18 Dose: 25 mg Documented by: Metoprolol Succinate (Toprol Xl -) 12.5 mg PO 1800 [facility] 234 [facility]S [facility] Metoprolol Tartrate (Lopressor Injection -) 5 mg IVPUSH Q6H PRN PRN Reason: HYPERTENSION Last Admin: 01/30/20 13:01 Dose: 5 mg Documented by: Miscellaneous (Lidoderm Patch Removal) 1 each MC DAILY@2200 [facility] 234 [facility]S [facility] Last Admin: 02/02/20 21:35 Dose: Not Given Documented by: Olanzapine (Zyprexa -) 5 mg PO HS [facility] 234 [facility]S [facility] Last Admin: 02/02/20 21:40 Dose: 5 mg Documented by: Ondansetron HCl (Zofran Injection) 8 mg IVPB Q6H PRN PRN Reason: NAUSEA AND/OR VOMITING Last Admin: 02/02/20 22:18 Dose: 8 mg Documented by: Pantoprazole Sodium (Protonix -) 20 mg PO DAILY [facility] 234 [facility]S [facility] Last Admin: 02/03/20 09:18 Dose: 20 mg Documented by: Pramipexole Dihydrochloride (Mirapex -) 0.25 mg PO BID [facility] 234 B[facility]S AT [facility] Last Admin: 02/03/20 09:13 Dose: 0.25 mg Documented by: Rivaroxaban (Xarelto) 20 mg PO DAILY@1800 [facility]CLUDE 234 BEDS AT [facility] Last Admin: 02/02/20 18:23 Dose: 20 mg Documented by: Sacubitril/Valsartan (Entresto 24 Mg-26 Mg Tablet) 1 tab PO BID [facility] 234 [facility]S AT [facility] Last Admin: 02/03/20 09:13 Dose: 1 tab Documented by: Sodium Zirconium Cyclosilicate (Lokelma) 10 gm PO DAILY [facility] 234 BEDS AT [facility] Last Admin: 02/03/20 11:42 Dose: Not Given Documented by: Torsemide (Demadex -) 20 mg PO DAILY [facility] 234 [facility]S AT [facility] Last Admin: 02/03/20 09:13 Dose: 20 mg Documented by: - Objective Vital Signs: Vital Signs Temperature 97.2 F L 02/03/20 10:00 Pulse Rate 90 02/03/20 10:00 Respiratory Rate 18 02/03/20 10:00 Blood Pressure 126/57 L 02/03/20 10:00 O2 Sat by Pulse Oximetry (%) 96 02/03/20 08:38 Constitutional: Yes: Calm Eyes: Yes: Conjunctiva Clear HENT: Yes: Atraumatic Cardiovascular: Yes: S1, S2 Respiratory: Yes: CTA Bilaterally Gastrointestinal: Yes: Normal Bowel Sounds, Soft Genitourinary: Yes: Incontinence Edema: No Integumentary: Yes: WNL Neurological: Yes: Oriented Labs: CBC, BMP 02/02/20 05:25 02/03/20 05:25 INR, PTT INR 1.57 (0.83-1.09) H 01/20/20 06:45 Problem List - Problems (1) ELIZABETH (acute kidney injury) Code(s): N17.9 - ACUTE KIDNEY FAILURE, UNSPECIFIED Assessment/Plan Current Medications Generic Name Dose Route Start Last Admin Trade Name Freq PRN Reason Stop Dose Admin Acetaminophen 650 mg 02/01/20 11:34 02/03/20 01:35 Tylenol Oral Solution - PO 650 mg Q6H PRN Administration PAIN 1-3 Amino Acids 30 ml 01/29/20 17:30 02/03/20 09:13 Prosource No Carb Liquid Pkt PO 30 ml BID@0800,1730 [facility] Administration Baclofen 10 mg 01/31/20 21:03 02/01/20 09:15 Lioresal - PO 10 mg Q8H PRN Administration MUSCLE SPASMS Cyanocobalamin 1,000 mcg 02/01/20 10:00 02/03/20 09:13 Vitamin B12 - PO 1,000 mcg DAILY [facility] Administration Diazepam 5 mg 01/31/20 23:20 Valium Injection - IM ONCE PRN ANXIETY Docusate Sodium 100 mg 01/31/20 21:03 Colace - PO Q8H PRN CONSTIPATION Hydrocortisone 1 applic 01/31/20 21:03 Hytone 1% Cream - TP Q24H PRN FOR ITCHING Daptomycin 500 mg/ Sodium 50 mls @ 100 mls/hr 01/28/20 15:30 02/02/20 14:54 Chloride IVPB 100 mls/hr Q24H [facility] Administration Protocol Insulin Aspart 1 vial 01/31/20 22:00 02/03/20 11:41 Novolog Vial Sliding Scale - SQ 6 units ACHS [facility] Administration Protocol Lidocaine 1 patch 02/01/20 10:00 02/03/20 09:13 Lidoderm Patch - TP 1 patch DAILY [facility] Administration Metoprolol Succinate 25 mg 02/03/20 10:00 02/03/20 09:18 Toprol Xl - PO 25 mg DAILY [facility] Administration Metoprolol Succinate 12.5 mg 02/03/20 18:00 Toprol Xl - PO 1800 [facility]S INCLUDE 234 BEDS AT [facility] Metoprolol Tartrate 5 mg 01/30/20 12:19 01/30/20 13:01 Lopressor Injection - IVPUSH 5 mg Q6H PRN Administration HYPERTENSION Miscellaneous 1 each 01/31/20 22:00 02/02/20 21:35 Lidoderm Patch Removal MC Not Given DAILY@2200 COUNTS INCLUDE 234 BEDS AT [facility] Olanzapine 5 mg 01/31/20 22:00 02/02/20 21:40 Zyprexa - PO 5 mg HS [facility] Administration Ondansetron HCl 8 mg 02/02/20 15:48 02/02/20 22:18 Zofran Injection IVPB 8 mg Q6H PRN Administration NAUSEA AND/OR VOMITING Pantoprazole Sodium 20 mg 02/03/20 10:00 02/03/20 09:18 Protonix - PO 20 mg DAILY [facility] Administration Pramipexole Dihydrochloride 0.25 mg 01/31/20 22:00 02/03/20 09:13 Mirapex - PO 0.25 mg BID [facility] Administration Rivaroxaban 20 mg 02/02/20 18:00 02/02/20 18:23 Xarelto PO 20 mg DAILY@1800 LISA Administration Sacubitril/Valsartan 1 tab 02/02/20 10:00 02/03/20 09:13 Entresto 24 Mg-26 Mg Tablet PO 1 tab BID LISA Administration Sodium Zirconium Cyclosilicate 10 gm 01/31/20 18:00 02/03/20 11:42 Lokelma PO Not Given DAILY LISA Torsemide 20 mg 02/02/20 10:00 02/03/20 09:13 Demadex - PO 20 mg DAILY LISA Administration Impression 1. ELIZABETH 2. sepsis 3. shock 4. CHF 5. hx of htn 6. epidural abscess 7. ut 8. a-fib 9. hyponatremia 10. hyperkalemia Plan - cont to monitor renal function - monitor potassium - cont lokeloh for now - repeat labs in am - scale shooter improved - avoid nsaids
[2020-02-03] MEDS: ONDANSETRON 4 MG/2 ML VIAL IVPB PRN (14:14)
--- NOTE | 2020-02-03 14:16 | PN ---
Progress Note, Physician Chief Complaint: weakness History of Present Illness: no sob, swelling, cp, palp - Current Medication List Current Medications: Active Medications Acetaminophen (Tylenol Oral Solution -) 650 mg PO Q6H PRN PRN Reason: PAIN 1-3 Last Admin: 02/03/20 01:35 Dose: 650 mg Documented by: Amino Acids (Prosource No Carb Liquid Pkt) 30 ml PO BID@0800,1730 [facility] Last Admin: 02/03/20 09:13 Dose: 30 ml Documented by: Baclofen (Lioresal -) 10 mg PO Q8H PRN PRN Reason: MUSCLE SPASMS Last Admin: 02/01/20 09:15 Dose: 10 mg Documented by: Cyanocobalamin (Vitamin B12 -) 1,000 mcg PO DAILY [facility] Last Admin: 02/03/20 09:13 Dose: 1,000 mcg Documented by: Diazepam (Valium Injection -) 5 mg IM ONCE PRN PRN Reason: ANXIETY Docusate Sodium (Colace -) 100 mg PO Q8H PRN PRN Reason: CONSTIPATION Hydrocortisone (Hytone 1% Cream -) 1 applic TP Q24H PRN PRN Reason: FOR ITCHING Daptomycin 500 mg/ Sodium (Chloride) 50 mls @ 100 mls/hr IVPB Q24H [facility]; Protocol Last Admin: 02/02/20 14:54 Dose: 100 mls/hr Documented by: Insulin Aspart (Novolog Vial Sliding Scale -) 1 vial SQ ACHS [facility]; Protocol Last Admin: 02/03/20 11:41 Dose: 6 units Documented by: Lidocaine (Lidoderm Patch -) 1 patch TP DAILY [facility] Last Admin: 02/03/20 09:13 Dose: 1 patch Documented by: Metoprolol Succinate (Toprol Xl -) 25 mg PO DAILY [facility] Last Admin: 02/03/20 09:18 Dose: 25 mg Documented by: Metoprolol Succinate (Toprol Xl -) 12.5 mg PO 1800 [facility] Metoprolol Tartrate (Lopressor Injection -) 5 mg IVPUSH Q6H PRN PRN Reason: HYPERTENSION Last Admin: 01/30/20 13:01 Dose: 5 mg Documented by: Miscellaneous (Lidoderm Patch Removal) 1 each MC DAILY@2200 [facility] Last Admin: 02/02/20 21:35 Dose: Not Given Documented by: Olanzapine (Zyprexa -) 5 mg PO HS [facility] Last Admin: 02/02/20 21:40 Dose: 5 mg Documented by: Ondansetron HCl (Zofran Injection) 8 mg IVPB Q6H PRN PRN Reason: NAUSEA AND/OR VOMITING Last Admin: 02/02/20 22:18 Dose: 8 mg Documented by: Pantoprazole Sodium (Protonix -) 20 mg PO DAILY [facility] Last Admin: 02/03/20 09:18 Dose: 20 mg Documented by: Pramipexole Dihydrochloride (Mirapex -) 0.25 mg PO BID [facility] Last Admin: 02/03/20 09:13 Dose: 0.25 mg Documented by: Rivaroxaban (Xarelto) 20 mg PO DAILY@1800 [facility] Last Admin: 02/02/20 18:23 Dose: 20 mg Documented by: Sacubitril/Valsartan (Entresto 24 Mg-26 Mg Tablet) 1 tab PO BID [facility] Last Admin: 02/03/20 09:13 Dose: 1 tab Documented by: Sodium Zirconium Cyclosilicate (Lokelma) 10 gm PO DAILY [facility] Last Admin: 02/03/20 11:42 Dose: Not Given Documented by: Torsemide (Demadex -) 20 mg PO DAILY [facility] Last Admin: 02/03/20 09:13 Dose: 20 mg Documented by: - Objective Vital Signs: Vital Signs Temperature 97.2 F L 02/03/20 10:00 Pulse Rate 90 02/03/20 10:00 Respiratory Rate 18 02/03/20 10:00 Blood Pressure 126/57 L 02/03/20 10:00 O2 Sat by Pulse Oximetry (%) 96 02/03/20 08:38 Constitutional: Yes: Well Nourished, No Distress, Calm Cardiovascular: Yes: Regular Rate and Rhythm. No: JVD, Murmur Respiratory: Yes: Regular, CTA Bilaterally. 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 REC: epidural abscess s/p DASH drain possible drain infection here, sepsis, UTI: - manage per surgery, ID, hospitalist team acute renal failure: -Suspect ATN due to periods of intermittent hypotension -Renal following -cr improved -pressors off now -renally dosed meds, adjusted Xarelto for now Hypotension: -bp still on low side, have been holding coreg -volume depletion/sepsis likely etiology, BP normalized, s/p DASH drain removed chronic systolic CHF, nonischemic cardiomyopathy, moderate MR: -known nonisch CMP with normal coronaries on cath x 2 -EF has fluctuated 35-55% over the years, likely in relation to severity of untreated NICHOLE, vs ? diabetic (uncontrolled glycemic status, does not f/u with PMD despite repeatedly advised to do so) -EF moderately reduced, last echo here EF 35-40% -does not appear vol overloaded now, no accurate weights trend available. -cont bb -in setting of persistent intermittent hypotension, torsemide (home dose 50 qd) and entresto held. BP has stabilized, K high normal range. Trial resume Entresto 24-26 with low dose torsemide to start (20mg), to help with hyperkalemia tendencies)--monitor daily labs PAF: - Cont Xarelto, increase back to 20mg dose as GFR has normalized - RVR at times, now in sr after 1 dose of iv dig - not on any AVN blockers, HRs often > 110, up to 140s. risk of HF decompensation. - incr metopr 25 bid, watch for hypotension - monitoring on tele DVT/PE with history of filter: -cont with AC NICHOLE: -not using CPAP Uncontrolled DM: -mgmt per hospitalist team -check A1c
[2020-02-03] MEDS: DAPTOMYCIN 500 MG in SODIUM CHLORIDE 50 ML IVPB SCH (16:40)
[2020-02-03] MEDS: RIVAROXABAN 20 MG TABLET PO SCH (17:13)
[2020-02-03] MEDS: metoPROLOL SUCCINATE 25 MG TAB.SR.24H (FP) PO SCH (21:40)
[2020-02-03] MEDS: OLANZapine 5 MG TABLET PO SCH (21:40)
[2020-02-03] MEDS: LIDOCAINE PATCH REMOVAL MC SCH (22:05)
[2020-02-04] MEDS: ACETAMINOPHEN 650 MG/20.3 ML ORAL SOLUTION (CUPS) PO PRN (03:52)
[2020-02-04] MEDS: INSULIN SLIDING SCALE (NOVOLOG) 1 VIAL SQ SCH ×4 (06:46→21:43)
[2020-02-04 07:57] LABS: BLOOD UREA NITROGEN 21.3 mg/dL (7-18); CALCIUM 8.6 mg/dL (8.5-10.1); CREATININE 1.2 mg/dL (0.55-1.3); POTASSIUM 4.4 mmol/L (3.5-5.1)
--- NOTE | 2020-02-04 08:56 | PN ---
Teaching Attending Note Name of Resident: Gerardo Helms ATTENDING PHYSICIAN STATEMENT I saw and evaluated the patient. I reviewed the resident's note and discussed the case with the resident. I agree with the resident's findings and plan as documented. SUBJECTIVE: Vital Signs Period Temp Pulse Resp BP Sys/Marcelo Pulse Ox Last 24 Hr 97.6 F-98.6 F 69-110 20-20 87-119/45-60 95-95 OBJECTIVE: CBC, BMP 02/02/20 05:25 02/04/20 06:45 ASSESSMENT AND PLAN: patient being discharged home today with home IV antibiotics.ffor details see discharge summary.
[2020-02-04] MEDS ORDERED: PT OWN MED DRAWER 7, Y5N ONE ×2 (09:34→20:35)
[2020-02-04] MEDS: LIDOCAINE 5% TOPICAL PATCH TP SCH (09:56)
[2020-02-04] MEDS: SODIUM ZIRCONIUM CYCLOSILICATE (LOKELMA) 5 GM PACKET PO SCH (09:56)
[2020-02-04] MEDS: AMINO ACIDS/PROTEIN HYDROLYS 30 ML LIQUID.PKT PO SCH ×2 (09:57→16:57)
[2020-02-04] MEDS: SACUBITRIL/VALSARTAN 24 MG-26 MG TABLET PO SCH ×2 (09:57→21:38)
[2020-02-04] MEDS: OLANZapine 5 MG TABLET PO SCH ×2 (09:57→21:39)
[2020-02-04] MEDS: metoPROLOL SUCCINATE 25 MG TAB.SR.24H (FP) PO SCH ×2 (09:58→21:39)
[2020-02-04] MEDS: PANTOPRAZOLE 20 MG TABLET PO SCH (09:58)
[2020-02-04] MEDS: PRAMIPEXOLE DIHYDROCHLORIDE 0.25 MG TABLET PO SCH ×2 (09:58→21:38)
[2020-02-04] MEDS: TORSEMIDE 20 MG TABLET (FP) PO SCH (09:58)
[2020-02-04] MEDS: CYANOCOBALAMIN 1,000 MCG TABLET (FP) PO SCH (09:58)
--- NOTE | 2020-02-04 10:23 | PN ---
Progress Note, Physician History of Present Illness: PULMONARY ALERT,NO DISTRESS,-CP,-SOB - Current Medication List Current Medications: Active Medications Acetaminophen (Tylenol Oral Solution -) 650 mg PO Q6H PRN PRN Reason: PAIN 1-3 Last Admin: 02/04/20 03:52 Dose: 650 mg Documented by: Amino Acids (Prosource No Carb Liquid Pkt) 30 ml PO BID@0800,1730 [facility] Last Admin: 02/04/20 09:57 Dose: 30 ml Documented by: Baclofen (Lioresal -) 10 mg PO Q8H PRN PRN Reason: MUSCLE SPASMS Last Admin: 02/01/20 09:15 Dose: 10 mg Documented by: Cyanocobalamin (Vitamin B12 -) 1,000 mcg PO DAILY [facility] Last Admin: 02/04/20 09:58 Dose: 1,000 mcg Documented by: Diazepam (Valium Injection -) 5 mg IM ONCE PRN PRN Reason: ANXIETY Docusate Sodium (Colace -) 100 mg PO Q8H PRN PRN Reason: CONSTIPATION Hydrocortisone (Hytone 1% Cream -) 1 applic TP Q24H PRN PRN Reason: FOR ITCHING Daptomycin 500 mg/ Sodium (Chloride) 50 mls @ 100 mls/hr IVPB Q24H [facility]; Protocol Last Admin: 02/03/20 16:40 Dose: 100 mls/hr Documented by: Insulin Aspart (Novolog Vial Sliding Scale -) 1 vial SQ ACHS [facility]; Protocol Last Admin: 02/04/20 06:46 Dose: 2 units Documented by: Lidocaine (Lidoderm Patch -) 1 patch TP DAILY [facility] Last Admin: 02/04/20 09:56 Dose: 1 patch Documented by: Metoprolol Succinate (Toprol Xl -) 25 mg PO BID [facility] Last Admin: 02/04/20 09:58 Dose: 25 mg Documented by: Metoprolol Tartrate (Lopressor Injection -) 5 mg IVPUSH Q6H PRN PRN Reason: HYPERTENSION Last Admin: 01/30/20 13:01 Dose: 5 mg Documented by: Miscellaneous (Lidoderm Patch Removal) 1 each MC DAILY@2200 [facility] Last Admin: 02/03/20 22:05 Dose: Not Given Documented by: Olanzapine (Zyprexa -) 5 mg PO HS [facility] Last Admin: 02/04/20 09:57 Dose: 5 mg Documented by: Ondansetron HCl (Zofran Injection) 8 mg IVPB Q6H PRN PRN Reason: NAUSEA AND/OR VOMITING Last Admin: 02/03/20 14:14 Dose: 8 mg Documented by: Pantoprazole Sodium (Protonix -) 20 mg PO DAILY [facility] Last Admin: 02/04/20 09:58 Dose: 20 mg Documented by: Pramipexole Dihydrochloride (Mirapex -) 0.25 mg PO BID [facility] Last Admin: 02/04/20 09:58 Dose: 0.25 mg Documented by: Rivaroxaban (Xarelto) 20 mg PO DAILY@1800 [facility] Last Admin: 02/03/20 17:13 Dose: 20 mg Documented by: Sacubitril/Valsartan (Entresto 24 Mg-26 Mg Tablet) 1 tab PO BID [facility] Last Admin: 02/04/20 09:57 Dose: 1 tab Documented by: Sodium Zirconium Cyclosilicate (Lokelma) 10 gm PO DAILY [facility] Last Admin: 02/04/20 09:56 Dose: 10 gm Documented by: Torsemide (Demadex -) 20 mg PO DAILY [facility] Last Admin: 02/04/20 09:58 Dose: 20 mg Documented by: - Objective Vital Signs: Vital Signs Temperature 98.6 F 02/04/20 06:00 Pulse Rate 88 02/04/20 06:00 Respiratory Rate 02/04/20 06:00 Blood Pressure 106/57 L 02/04/20 06:00 O2 Sat by Pulse Oximetry (%) 95 02/03/20 21:00 Constitutional: Yes: Well Nourished, Calm Eyes: Yes: WNL HENT: Yes: WNL Neck: Yes: WNL Cardiovascular: Yes: Regular Rate and Rhythm, S1, S2 Respiratory: Yes: CTA Bilaterally Gastrointestinal: Yes: Normal Bowel Sounds, Soft Extremities: Yes: WNL Edema: No Labs: 02/04/20 06:45 Problem List - Problems (1) Epidural abscess Code(s): G06.2 - EXTRADURAL AND SUBDURAL ABSCESS, UNSPECIFIED (2) Chronic systolic heart failure Code(s): I50.22 - CHRONIC SYSTOLIC (CONGESTIVE) HEART FAILURE (3) Hypertension Code(s): I10 - ESSENTIAL (PRIMARY) HYPERTENSION (4) Non-ischemic cardiomyopathy Code(s): I42.9 - CARDIOMYOPATHY, UNSPECIFIED (5) Rheumatoid arthritis Code(s): M06.9 - RHEUMATOID ARTHRITIS, UNSPECIFIED (6) Type 2 diabetes mellitus Code(s): E11.9 - TYPE 2 DIABETES MELLITUS WITHOUT COMPLICATIONS Qualifiers: 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
--- NOTE | 2020-02-04 11:13 | PN ---
Progress Note (short form) - Note Progress Note: Chief Complaint: weakness History of Present Illness: no sob, swelling, cp, palp - Current Medication List Current Medications Generic Name Dose Route Start Last Admin Trade Name Tom PRN Reason Stop Dose Admin Acetaminophen 650 mg 02/01/20 11:34 02/04/20 03:52 Tylenol Oral Solution - PO 650 mg Q6H PRN Administration PAIN 1-3 Amino Acids 30 ml 01/29/20 17:30 02/04/20 09:57 Prosource No Carb Liquid Pkt PO 30 ml BID@0800,1730 [facility] Administration Baclofen 10 mg 01/31/20 21:03 02/01/20 09:15 Lioresal - PO 10 mg Q8H PRN Administration MUSCLE SPASMS Cyanocobalamin 1,000 mcg 02/01/20 10:00 02/04/20 09:58 Vitamin B12 - PO 1,000 mcg DAILY [facility] Administration Diazepam 5 mg 01/31/20 23:20 Valium Injection - IM ONCE PRN ANXIETY Docusate Sodium 100 mg 01/31/20 21:03 Colace - PO Q8H PRN CONSTIPATION Hydrocortisone 1 applic 01/31/20 21:03 Hytone 1% Cream - TP Q24H PRN FOR ITCHING Daptomycin 500 mg/ Sodium 50 mls @ 100 mls/hr 01/28/20 15:30 02/03/20 16:40 Chloride IVPB 100 mls/hr Q24H [facility] Administration Protocol Insulin Aspart 1 vial 01/31/20 22:00 02/04/20 06:46 Novolog Vial Sliding Scale - SQ 2 units ACHS [facility] Administration Protocol Lidocaine 1 patch 02/01/20 10:00 02/04/20 09:56 Lidoderm Patch - TP 1 patch DAILY [facility] Administration Metoprolol Succinate 25 mg 02/03/20 22:00 02/04/20 09:58 Toprol Xl - PO 25 mg BID [facility] Administration Metoprolol Tartrate 5 mg 01/30/20 12:19 01/30/20 13:01 Lopressor Injection - IVPUSH 5 mg Q6H PRN Administration HYPERTENSION Miscellaneous 1 each 01/31/20 22:00 02/03/20 22:05 Lidoderm Patch Removal MC Not Given DAILY@2200 [facility] Olanzapine 5 mg 01/31/20 22:00 02/04/20 09:57 Zyprexa - PO 5 mg HS [facility] Administration Ondansetron HCl 8 mg 02/02/20 15:48 02/03/20 14:14 Zofran Injection IVPB 8 mg Q6H PRN Administration NAUSEA AND/OR VOMITING Pantoprazole Sodium 20 mg 02/03/20 10:00 02/04/20 09:58 Protonix - PO 20 mg DAILY [facility] Administration Pramipexole Dihydrochloride 0.25 mg 01/31/20 22:00 02/04/20 09:58 Mirapex - PO 0.25 mg BID [facility] Administration Rivaroxaban 20 mg 02/02/20 18:00 02/03/20 17:13 Xarelto PO 20 mg DAILY@1800 [facility] Administration Sacubitril/Valsartan 1 tab 02/02/20 10:00 02/04/20 09:57 Entresto 24 Mg-26 Mg Tablet PO 1 tab BID [facility] Administration Sodium Zirconium Cyclosilicate 10 gm 01/31/20 18:00 02/04/20 09:56 Lokelma PO 10 gm DAILY [facility] Administration Torsemide 20 mg 02/02/20 10:00 02/04/20 09:58 Demadex - PO 20 mg DAILY [facility] Administration Vital Signs Period Temp Pulse Resp BP Sys/Marcelo Pulse Ox Last 24 Hr 97.6 F-98.6 F 69-110 20-20 87-119/44-60 95-95 Constitutional: Yes: Well Nourished, No Distress, Calm Cardiovascular: Yes: Regular Rate and Rhythm. No: JVD, Murmur Respiratory: Yes: Regular, CTA Bilaterally. 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 REC: epidural abscess s/p DASH drain possible drain infection here, sepsis, UTI: - manage per surgery, ID, hospitalist team acute renal failure: -Suspect ATN due to periods of intermittent hypotension -Renal following -cr improved -pressors off now -renally dosed meds, adjusted Xarelto for now Hypotension: -bp still on low side, have been holding coreg -volume depletion/sepsis likely etiology, BP normalized, s/p DASH drain removed chronic systolic CHF, nonischemic cardiomyopathy, moderate MR: -known nonisch CMP with normal coronaries on cath x 2 -EF has fluctuated 35-55% over the years, likely in relation to severity of untreated NICHOLE, vs ? diabetic (uncontrolled glycemic status, does not f/u with PMD despite repeatedly advised to do so) -EF moderately reduced, last echo here EF 35-40% -does not appear vol overloaded now, no accurate weights trend available. -cont bb -in setting of persistent intermittent hypotension, torsemide (home dose 50 qd) and entresto held. BP has stabilized, K high normal range. Trial resume Entresto 24-26 with low dose torsemide to start (20mg), to help with hyperkalemia tend encies)--monitor daily labs PAF: - Cont Xarelto, increase back to 20mg dose as GFR has normalized - RVR at times, now in sr after 1 dose of iv dig - not on any AVN blockers, HRs often > 110, up to 140s. risk of HF decompensation. - incr metopr 25 bid, watch for hypotension - monitoring on tele DVT/PE with history of filter: -cont with AC NICHOLE: -not using CPAP Uncontrolled DM: -mgmt per hospitalist team -check A1c
--- NOTE | 2020-02-04 11:50 | PN ---
Physical Exam: SUBJECTIVE: Patient seen and examined at bedside. No complaints today. OBJECTIVE: Vital Signs Period Temp Pulse Resp BP Sys/Marcelo Pulse Ox Last 24 Hr 97.6 F-98.6 F 69-110 20-20 87-119/44-60 95-95 Gen: AAOx3, NAD HEENT: NCAT, eomi Neck: No jvd noted Cardio: rrr, norm s1s2, no mrg noted Pulm: CTA b/l Abd: obese, soft, nontender Back: incision site healing well. No pain/drainage Ext: no edema Laboratory Results - last 24 hr 02/03/20 02/03/20 02/04/20 16:31 21:38 06:00 Sodium Potassium Chloride Carbon Dioxide Anion Gap BUN Creatinine Est GFR (CKD-EPI)AfAm Est GFR (CKD-EPI)NonAf POC Glucometer 128 187 165 Random Glucose Calcium 02/04/20 02/04/20 06:45 11:26 Sodium 141 Potassium 4.4 Chloride 106 Carbon Dioxide 25 Anion Gap 9 BUN 21.3 H Creatinine 1.2 Est GFR (CKD-EPI)AfAm 51.92 Est GFR (CKD-EPI)NonAf 44.80 POC Glucometer 233 Random Glucose 169 H Calcium 8.6 Active Medications Generic Name Dose Route Start Last Admin Trade Name Freq PRN Reason Stop Dose Admin Acetaminophen 650 mg 02/01/20 11:34 02/04/20 03:52 Tylenol Oral Solution - PO 650 mg Q6H PRN Administration PAIN 1-3 Amino Acids 30 ml 01/29/20 17:30 02/04/20 09:57 Prosource No Carb Liquid Pkt PO 30 ml BID@0800,1730 [facility] Administration Baclofen 10 mg 01/31/20 21:03 02/01/20 09:15 Lioresal - PO 10 mg Q8H PRN Administration MUSCLE SPASMS Cyanocobalamin 1,000 mcg 02/01/20 10:00 02/04/20 09:58 Vitamin B12 - PO 1,000 mcg DAILY [facility] Administration Diazepam 5 mg 01/31/20 23:20 Valium Injection - IM ONCE PRN ANXIETY Docusate Sodium 100 mg 01/31/20 21:03 Colace - PO Q8H PRN CONSTIPATION Hydrocortisone 1 applic 01/31/20 21:03 Hytone 1% Cream - TP Q24H PRN FOR ITCHING Daptomycin 500 mg/ Sodium 50 mls @ 100 mls/hr 01/28/20 15:30 02/03/20 16:40 Chloride IVPB 100 mls/hr Q24H [facility] Administration Protocol Insulin Aspart 1 vial 01/31/20 22:00 02/04/20 06:46 Novolog Vial Sliding Scale - SQ 2 units ACHS [facility] Administration Protocol Lidocaine 1 patch 02/01/20 10:00 02/04/20 09:56 Lidoderm Patch - TP 1 patch DAILY [facility] Administration Metoprolol Succinate 25 mg 02/03/20 22:00 02/04/20 09:58 Toprol Xl - PO 25 mg BID [facility] Administration Metoprolol Tartrate 5 mg 01/30/20 12:19 01/30/20 13:01 Lopressor Injection - IVPUSH 5 mg Q6H PRN Administration HYPERTENSION Miscellaneous 1 each 01/31/20 22:00 02/03/20 22:05 Lidoderm Patch Removal MC Not Given DAILY@2200 [facility] Olanzapine 5 mg 01/31/20 22:00 02/04/20 09:57 Zyprexa - PO 5 mg HS [facility] Administration Ondansetron HCl 8 mg 02/02/20 15:48 02/03/20 14:14 Zofran Injection IVPB 8 mg Q6H PRN Administration NAUSEA AND/OR VOMITING Pantoprazole Sodium 20 mg 02/03/20 10:00 02/04/20 09:58 Protonix - PO 20 mg DAILY [facility] Administration Pramipexole Dihydrochloride 0.25 mg 01/31/20 22:00 02/04/20 09:58 Mirapex - PO 0.25 mg BID [facility] Administration Rivaroxaban 20 mg 02/02/20 18:00 02/03/20 17:13 Xarelto PO 20 mg DAILY@1800 [facility] Administration Sacubitril/Valsartan 1 tab 02/02/20 10:00 02/04/20 09:57 Entresto 24 Mg-26 Mg Tablet PO 1 tab BID [facility] Administration Sodium Zirconium Cyclosilicate 10 gm 01/31/20 18:00 02/04/20 09:56 Lokelma PO 10 gm DAILY [facility] Administration Torsemide 20 mg 02/02/20 10:00 02/04/20 09:58 Demadex - PO 20 mg DAILY [facility] Administration ASSESSMENT/PLAN: 74 y.o. F PMH CHF (EF 35-40%), RA, DM 2, HTN, Hx DVT/PE, a fib (on Xarelto), known non-ischemic cardiomyopathy, multiple spine surgeries, s/p L4/5 laminectomy then L5/S1 seroma with recent epidural abscess drainage s/p I and D, complex wound closure and wound vac placement 11/26 s/p 5 weeks antibiotics via PICC (rocephin), recently d/c'd for CHF exacerbation on 01/09 & sent home w/ home VNS. Presenting on this admission for lower abdominal and back pain admitted for sepsis #chronic systolic CHF 2/2 nonischemic cardiomyopathy -EF varies. 35-40% on last echo here -cardio on board -Beta baljeet -per cardio, trial of entresto with low dose torsemide #Sepsis 2/2 expanding epidural abscess vs UTI: RESOLVED -BP improved -BCx normal since 01/22/2020 -epidural abscess drain out #ELIZABETH: RESOLVED -renally dose medications -avoid nephrotoxic substances #Paroxysmal Atrial Fibrillation -holding Coreg in setting of hypotension -Xarelto 20mg daily #Hx PE/DVT -c/w Xarelto #DM -HbA1c 9.0% -BGMs, ISS ACHS -hold home oral agents #RA -c/w Leflunomide #Normocytic Anemia -2/2 to anemia of chronic disease -continue feosol -h&h stable, continue to monitor cbc #NICHOLE -not treated, pt has not followed up for cpap therapy #DVT PPX on Xarelto #FEN -no standing fluids -monitor lytes -diabetic/ na controlled diet Dispo: Will likely be d/c'ed home. 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 She states she walks decently with a foot-drop aid she has at her house along with a walker. Visit type - Emergency Visit Emergency Visit: No - New Patient This patient is new to me today: No - Critical Care Critical Care patient: No ATTENDING PHYSICIAN STATEMENT I saw and evaluated the patient. I reviewed the resident's note and discussed the case with the resident. I agree with the resident's findings and plan as documented. SUBJECTIVE: OBJECTIVE: ASSESSMENT AND PLAN:
--- NOTE | 2020-02-04 12:05 | PN ---
Progress Note, Physician History of Present Illness: patient stable pain main issues - Current Medication List Current Medications: Active Medications Acetaminophen (Tylenol Oral Solution -) 650 mg PO Q6H PRN PRN Reason: PAIN 1-3 Last Admin: 02/04/20 03:52 Dose: 650 mg Documented by: Amino Acids (Prosource No Carb Liquid Pkt) 30 ml PO BID@0800,1730 [facility] Last Admin: 02/04/20 09:57 Dose: 30 ml Documented by: Baclofen (Lioresal -) 10 mg PO Q8H PRN PRN Reason: MUSCLE SPASMS Last Admin: 02/01/20 09:15 Dose: 10 mg Documented by: Cyanocobalamin (Vitamin B12 -) 1,000 mcg PO DAILY [facility] Last Admin: 02/04/20 09:58 Dose: 1,000 mcg Documented by: Diazepam (Valium Injection -) 5 mg IM ONCE PRN PRN Reason: ANXIETY Docusate Sodium (Colace -) 100 mg PO Q8H PRN PRN Reason: CONSTIPATION Hydrocortisone (Hytone 1% Cream -) 1 applic TP Q24H PRN PRN Reason: FOR ITCHING Daptomycin 500 mg/ Sodium (Chloride) 50 mls @ 100 mls/hr IVPB Q24H [facility]; Protocol Last Admin: 02/03/20 16:40 Dose: 100 mls/hr Documented by: Insulin Aspart (Novolog Vial Sliding Scale -) 1 vial SQ ACHS [facility]; Protocol Last Admin: 02/04/20 11:38 Dose: 4 units Documented by: Lidocaine (Lidoderm Patch -) 1 patch TP DAILY [facility] Last Admin: 02/04/20 09:56 Dose: 1 patch Documented by: Metoprolol Succinate (Toprol Xl -) 25 mg PO BID [facility] Last Admin: 02/04/20 09:58 Dose: 25 mg Documented by: Metoprolol Tartrate (Lopressor Injection -) 5 mg IVPUSH Q6H PRN PRN Reason: HYPERTENSION Last Admin: 01/30/20 13:01 Dose: 5 mg Documented by: Miscellaneous (Lidoderm Patch Removal) 1 each MC DAILY@2200 [facility] Last Admin: 02/03/20 22:05 Dose: Not Given Documented by: Olanzapine (Zyprexa -) 5 mg PO HS [facility] Last Admin: 02/04/20 09:57 Dose: 5 mg Documented by: Ondansetron HCl (Zofran Injection) 8 mg IVPB Q6H PRN PRN Reason: NAUSEA AND/OR VOMITING Last Admin: 02/03/20 14:14 Dose: 8 mg Documented by: Pantoprazole Sodium (Protonix -) 20 mg PO DAILY [facility] Last Admin: 02/04/20 09:58 Dose: 20 mg Documented by: Pramipexole Dihydrochloride (Mirapex -) 0.25 mg PO BID [facility] Last Admin: 02/04/20 09:58 Dose: 0.25 mg Documented by: Rivaroxaban (Xarelto) 20 mg PO DAILY@1800 [facility] Last Admin: 02/03/20 17:13 Dose: 20 mg Documented by: Sacubitril/Valsartan (Entresto 24 Mg-26 Mg Tablet) 1 tab PO BID [facility] Last Admin: 02/04/20 09:57 Dose: 1 tab Documented by: Sodium Zirconium Cyclosilicate (Lokelma) 10 gm PO DAILY [facility] Last Admin: 02/04/20 09:56 Dose: 10 gm Documented by: Torsemide (Demadex -) 20 mg PO DAILY [facility] Last Admin: 02/04/20 09:58 Dose: 20 mg Documented by: - Objective Vital Signs: Vital Signs Temperature 98.6 F 02/04/20 06:00 Pulse Rate 88 02/04/20 06:00 Respiratory Rate 20 02/04/20 06:00 Blood Pressure 106/57 L 02/04/20 06:00 O2 Sat by Pulse Oximetry (%) 95 02/03/20 21:00 Constitutional: Yes: No Distress, Calm Cardiovascular: Yes: S1, S2 Respiratory: Yes: Regular, CTA Bilaterally Gastrointestinal: Yes: Normal Bowel Sounds, Soft Musculoskeletal: Yes: WNL Extremities: Yes: WNL Neurological: Yes: Alert, Oriented Psychiatric: Yes: Alert, Oriented Labs: CBC, BMP 02/02/20 05:25 02/04/20 06:45 INR, PTT INR 1.57 (0.83-1.09) H 01/20/20 06:45 Assessment/Plan roblem List - Problems (1) UTI (urinary tract infection) Code(s): N39.0 - URINARY TRACT INFECTION, SITE NOT SPECIFIED (2) Epidural abscess Code(s): G06.2 - EXTRADURAL AND SUBDURAL ABSCESS, UNSPECIFIED (3) Chronic systolic heart failure Code(s): I50.22 - CHRONIC SYSTOLIC (CONGESTIVE) HEART FAILURE (4) Diabetes Code(s): E11.9 - TYPE 2 DIABETES MELLITUS WITHOUT COMPLICATIONS Qualifiers: Diabetes mellitus type: type 2 (5) History of DVT (deep vein thrombosis) Code(s): Z86.718 - PERSONAL HISTORY OF OTHER VENOUS THROMBOSIS AND EMBOLISM (6) Hypertension Code(s): I10 - ESSENTIAL (PRIMARY) HYPERTENSION (7) Non-ischemic cardiomyopathy Code(s): I42.9 - CARDIOMYOPATHY, UNSPECIFIED (8) Obstructive sleep apnea Code(s): G47.33 - OBSTRUCTIVE SLEEP APNEA (ADULT) (PEDIATRIC) 9 vertebral abscess Assessment/Plan Bacteremia UTI Epidural abscess - s/p drainage/DASH in place DM CHF Hx of DVT AFIB all the cx results noted unfortunately patient is going to need meropenam with dapto will need esr crp weekly rest as per the team
--- NOTE | 2020-02-04 13:33 | DS ---
Physical Exam: SUBJECTIVE: Patient seen and examined at bedside. OBJECTIVE: Vital Signs Period Temp Pulse Resp BP Sys/Marcelo Pulse Ox Last 24 Hr 97.6 F-98.6 F 69-110 20-20 87-119/44-60 95-95 PHYSICAL EXAM Gen: AAOx3, NAD HEENT: NCAT, eomi Neck: No jvd noted Cardio: rrr, norm s1s2, no mrg noted Pulm: CTA b/l Abd: obese, soft, nontender Back: incision site healing well. No pain/drainage Ext: no edema LABS Laboratory Results - last 24 hr 02/03/20 02/03/20 02/04/20 16:31 21:38 06:00 Sodium Potassium Chloride Carbon Dioxide Anion Gap BUN Creatinine Est GFR (CKD-EPI)AfAm Est GFR (CKD-EPI)NonAf POC Glucometer 128 187 165 Random Glucose Calcium 02/04/20 02/04/20 06:45 11:26 Sodium 141 Potassium 4.4 Chloride 106 Carbon Dioxide 25 Anion Gap 9 BUN 21.3 H Creatinine 1.2 Est GFR (CKD-EPI)AfAm 51.92 Est GFR (CKD-EPI)NonAf 44.80 POC Glucometer 233 Random Glucose 169 H Calcium 8.6 HOSPITAL COURSE: Date of Admission:01/19/20 Date of Discharge: 02/04/20 74 y.o. F PMH CHF (EF 35-40%), RA, DM 2, HTN, Hx DVT/PE, a fib (on Xarelto), known non-ischemic cardiomyopathy, multiple spine surgeries, s/p L4/5 laminect efraín then L5/S1 seroma with recent epidural abscess drainage s/p I and D, complex wound closure and wound vac placement 11/26 s/p 5 weeks antibiotics via PICC (rocephin), recently d/c'd for CHF exacerbation on 01/09 & sent home w/ home VNS. Presenting on this admission for lower abdominal and back pain admitted for sepsis. Over the period of her admission, her abscess drainage slowed and eventually s topped after which the drain was removed. She was not febrile, but did have periods of tachycardia and low blood pressure. She was monitored in the ICU for part of her stay, but was transferred to the medical floor prior to discharge. She was seen by surgery, ID, cardiology, pulmonology, nephrology, and ID. Cardiology adjusted her medications prior to discharge. Her torsemide was restarted (at reduced dose of 20 mg daily) as was entresto prior to discharge; they had been held due to hypotension. Her coreg was not resumed. She was maintained on Toprol. During her stay, she had ELIZABETH which was managed with the help of nephrology. ELIZABETH resolved. Her other chronic medical problems were managed with her home medications. Normocytic Anemia -> feosol Paroxysmal Atrial Fibrillation -> xarelto (coreg was held due to hypotension) Hx PE/DVT-> Xarelto DM-> ISS RA-> Leflunomide Minutes to complete discharge: 30 Discharge Summary Problems reviewed: Yes Reason For Visit: URINARY TRACT INFECTION/EPIDURAL ABSCESS/DEHYDRATI Current Active Problems ELIZABETH (acute kidney injury) (Acute) Dehydration (Acute) Delirium (Acute) UTI (urinary tract infection) (Acute) Epidural abscess (Chronic) Condition: Guarded - Instructions Diet, Activity, Other Instructions: You were in the hospital because of an abscess in your back. You need to follow up with your primary care doctor as well as your surgeons, psychiatrists, and subspecialists including the cardroom plastic card grader, rolling machine operator automatic, cat skinner, infectious diseases specialist. Your Coreg was stopped. Do not take this medicine until you see your cardroom plastic card grader. Your torsemide was decreased to 20 mg daily. You will be on 2 antibiotics (Daptomycin and Meropenem) for the next 4 weeks using your PICC line. You can follow up with Dr. Krueger for this. It is very important that you follow up with the cardroom plastic card grader. Your medications were changed in the hospital, and you need to make sure you see them in the office. If you experience any new symptoms like fever, back pain, swelling, redness, dizziness, fainting, call your doctor or return to the emergency department. Referrals: Andres Krueger MD [Staff Physician] - Rachna Cesar MD [Staff Physician] - Mil Pastrana MD [Staff Physician] - Bandar Elliott [Primary Care Provider] - Brandon Hernandez MD [Staff Physician] - Malia Loyd MD [Staff Physician] - Sreekanth Borjas MD [Staff Physician] - Luis Borjas MD [Staff Physician] - Disposition: HOME - Home Medications Comprehensive Discharge Medication List: Ambulatory Orders Insulin Lispro Protamin/Lispro [Humalog Mix 75-25 Kwikpen] 22 unit SQ BIDAC 12/15/15 Zolpidem Tartrate [Ambien] 10 mg PO HS PRN 06/01/17 Leflunomide [Arava] 20 mg PO DAILY 07/26/18 Torsemide 50 mg PO DAILY 07/26/18 Baclofen 10 mg PO PRN PRN 07/16/19 Rivaroxaban [Xarelto -] 20 mg PO DAILY #30 tablet 10/03/19 Carvedilol [Coreg -] 12.5 mg PO BID 11/23/19 Gabapentin [Neurontin -] 600 mg PO TID 11/23/19 Diazepam 10 mg PO DAILY 12/28/19 Oxycodone HCl/Acetaminophen [Percocet 10-325 mg Tablet] 1 each PO QID 12/28/19 Pramipexole Di-HCl [Mirapex] 0.25 mg PO BID 12/28/19 Cyanocobalamin [Vitamin B12 -] 1,000 mcg PO DAILY #30 tablet 01/10/20 Ferrous Sulfate [Feosol] 325 mg PO BIDWM #60 ud 01/10/20 Sacubitril/Valsartan [Entresto 24 mg-26 mg Tablet] 1 each PO BID #60 tablet 01/10/20 This patient is new to me today: No Emergency Visit: No Critical Care patient: No - Discharge Referral Referred to [facility] Med P.C.: No ATTENDING PHYSICIAN STATEMENT I saw and evaluated the patient. I reviewed the resident's note and discussed the case with the resident. I agree with the resident's findings and plan as documented. SUBJECTIVE: OBJECTIVE: ASSESSMENT AND PLAN:
[2020-02-04] MEDS: MEROPENEM 1 GM in DEXTROSE 5%-WATER 100 ML IVPB SCH ×2 (14:15→18:50)
[2020-02-04] MEDS ORDERED: MEROPENEM 1 GM VIAL (RESTRICTED TO ID) IVPB ONE ×2 (14:54→16:32)
[2020-02-04] MEDS ORDERED: DEXTROSE 5%-WATER 100 ML IVPB ONE ×2 (14:54→16:33)
[2020-02-04] MEDS: DAPTOMYCIN 700 MG in SODIUM CHLORIDE 50 ML IVPB SCH (15:40)
--- NOTE | 2020-02-04 16:44 | PN ---
Progress Note, Physician History of Present Illness: Pt seen and examined at bedside. She is awake and appears comfortable. - Current Medication List Current Medications: Active Medications Acetaminophen (Tylenol Oral Solution -) 650 mg PO Q6H PRN PRN Reason: PAIN 1-3 Last Admin: 02/04/20 03:52 Dose: 650 mg Documented by: Amino Acids (Prosource No Carb Liquid Pkt) 30 ml PO BID@0800,1730 [facility] Last Admin: 02/04/20 09:57 Dose: 30 ml Documented by: Baclofen (Lioresal -) 10 mg PO Q8H PRN PRN Reason: MUSCLE SPASMS Last Admin: 02/01/20 09:15 Dose: 10 mg Documented by: Cyanocobalamin (Vitamin B12 -) 1,000 mcg PO DAILY [facility] Last Admin: 02/04/20 09:58 Dose: 1,000 mcg Documented by: Diazepam (Valium Injection -) 5 mg IM ONCE PRN PRN Reason: ANXIETY Docusate Sodium (Colace -) 100 mg PO Q8H PRN PRN Reason: CONSTIPATION Hydrocortisone (Hytone 1% Cream -) 1 applic TP Q24H PRN PRN Reason: FOR ITCHING Daptomycin 700 mg/ Sodium (Chloride) 50 mls @ 100 mls/hr IVPB Q24H [facility]; Protoc ol Last Admin: 02/04/20 15:40 Dose: 100 mls/hr Documented by: Meropenem 1 gm/ Dextrose 100 mls @ 100 mls/hr IVPB Q8H-IV [facility] Last Admin: 02/04/20 14:15 Dose: 100 mls/hr Documented by: Insulin Aspart (Novolog Vial Sliding Scale -) 1 vial SQ ACHS [facility]; Protocol Last Admin: 02/04/20 11:38 Dose: 4 units Documented by: Lidocaine (Lidoderm Patch -) 1 patch TP DAILY [facility] Last Admin: 02/04/20 09:56 Dose: 1 patch Documented by: Metoprolol Succinate (Toprol Xl -) 25 mg PO BID [facility] Last Admin: 02/04/20 09:58 Dose: 25 mg Documented by: Metoprolol Tartrate (Lopressor Injection -) 5 mg IVPUSH Q6H PRN PRN Reason: HYPERTENSION Last Admin: 01/30/20 13:01 Dose: 5 mg Documented by: Miscellaneous (Lidoderm Patch Removal) 1 each MC DAILY@2200 [facility] Last Admin: 02/03/20 22:05 Dose: Not Given Documented by: Olanzapine (Zyprexa -) 5 mg PO HS [facility] Last Admin: 02/04/20 09:57 Dose: 5 mg Documented by: Ondansetron HCl (Zofran Injection) 8 mg IVPB Q6H PRN PRN Reason: NAUSEA AND/OR VOMITING Last Admin: 02/03/20 14:14 Dose: 8 mg Documented by: Pantoprazole Sodium (Protonix -) 20 mg PO DAILY [facility] Last Admin: 02/04/20 09:58 Dose: 20 mg Documented by: Pramipexole Dihydrochloride (Mirapex -) 0.25 mg PO BID [facility] Last Admin: 02/04/20 09:58 Dose: 0.25 mg Documented by: Rivaroxaban (Xarelto) 20 mg PO DAILY@1800 [facility] Last Admin: 02/03/20 17:13 Dose: 20 mg Documented by: Sacubitril/Valsartan (Entresto 24 Mg-26 Mg Tablet) 1 tab PO BID [facility] Last Admin: 02/04/20 09:57 Dose: 1 tab Documented by: Sodium Zirconium Cyclosilicate (Lokelma) 10 gm PO DAILY [facility] Last Admin: 02/04/20 09:56 Dose: 10 gm Documented by: Torsemide (Demadex -) 20 mg PO DAILY [facility] Last Admin: 02/04/20 09:58 Dose: 20 mg Documented by: - Objective Vital Signs: Vital Signs Temperature 98.3 F 02/04/20 14:00 Pulse Rate 106 H 02/04/20 14:00 Respiratory Rate 20 02/04/20 09:00 Blood Pressure 89/53 L 02/04/20 14:00 O2 Sat by Pulse Oximetry (%) 95 02/04/20 09:00 Constitutional: Yes: Calm Eyes: Yes: Conjunctiva Clear HENT: Yes: Atraumatic Neck: Yes: Supple Cardiovascular: Yes: S1, S2 Respiratory: Yes: CTA Bilaterally Gastrointestinal: Yes: Soft, Abdomen, Obese Genitourinary: Yes: WNL Edema: No Neurological: Yes: Oriented Psychiatric: Yes: Oriented Labs: CBC, BMP 02/02/20 05:25 02/04/20 06:45 INR, PTT INR 1.57 (0.83-1.09) H 01/20/20 06:45 Problem List - Problems (1) ELIZABETH (acute kidney injury) Code(s): N17.9 - ACUTE KIDNEY FAILURE, UNSPECIFIED Assessment/Plan Current Medications Generic Name Dose Route Start Last Admin Trade Name Freq PRN Reason Stop Dose Admin Acetaminophen 650 mg 02/01/20 11:34 02/04/20 03:52 Tylenol Oral Solution - PO 650 mg Q6H PRN Administration PAIN 1-3 Amino Acids 30 ml 01/29/20 17:30 02/04/20 09:57 Prosource No Carb Liquid Pkt PO 30 ml BID@0800,1730 [facility] Administration Baclofen 10 mg 01/31/20 21:03 02/01/20 09:15 Lioresal - PO 10 mg Q8H PRN Administration MUSCLE SPASMS Cyanocobalamin 1,000 mcg 02/01/20 10:00 02/04/20 09:58 Vitamin B12 - PO 1,000 mcg DAILY [facility] Administration Diazepam 5 mg 01/31/20 23:20 Valium Injection - IM ONCE PRN ANXIETY Docusate Sodium 100 mg 01/31/20 21:03 Colace - PO Q8H PRN CONSTIPATION Hydrocortisone 1 applic 01/31/20 21:03 Hytone 1% Cream - TP Q24H PRN FOR ITCHING Daptomycin 700 mg/ Sodium 50 mls @ 100 mls/hr 02/04/20 13:10 02/04/20 15:40 Chloride IVPB 100 mls/hr Q24H [facility] Administration Protocol Meropenem 1 gm/ Dextrose 100 mls @ 100 mls/hr 02/04/20 13:15 02/04/20 14:15 IVPB 100 mls/hr Q8H-IV [facility] Administration Insulin Aspart 1 vial 01/31/20 22:00 02/04/20 11:38 Novolog Vial Sliding Scale - SQ 4 units ACHS [facility] Administration Protocol Lidocaine 1 patch 02/01/20 10:00 02/04/20 09:56 Lidoderm Patch - TP 1 patch DAILY [facility] Administration Metoprolol Succinate 25 mg 02/03/20 22:00 02/04/20 09:58 Toprol Xl - PO 25 mg BID [facility] Administration Metoprolol Tartrate 5 mg 01/30/20 12:19 01/30/20 13:01 Lopressor Injection - IVPUSH 5 mg Q6H PRN Administration HYPERTENSION Miscellaneous 1 each 01/31/20 22:00 02/03/20 22:05 Lidoderm Patch Removal MC Not Given DAILY@2200 [facility] Olanzapine 5 mg 01/31/20 22:00 02/04/20 09:57 Zyprexa - PO 5 mg HS [facility] Administration Ondansetron HCl 8 mg 02/02/20 15:48 02/03/20 14:14 Zofran Injection IVPB 8 mg Q6H PRN Administration NAUSEA AND/OR VOMITING Pantoprazole Sodium 20 mg 02/03/20 10:00 02/04/20 09:58 Protonix - PO 20 mg DAILY [facility] Administration Pramipexole Dihydrochloride 0.25 mg 01/31/20 22:00 02/04/20 09:58 Mirapex - PO 0.25 mg BID [facility] Administration Rivaroxaban 20 mg 02/02/20 18:00 02/03/20 17:13 Xarelto PO 20 mg DAILY@1800 [facility] Administration Sacubitril/Valsartan 1 tab 02/02/20 10:00 02/04/20 09:57 Entresto 24 Mg-26 Mg Tablet PO 1 tab BID [facility] Administration Sodium Zirconium Cyclosilicate 10 gm 01/31/20 18:00 02/04/20 09:56 Lokelma PO 10 gm DAILY [facility] Administration Torsemide 20 mg 02/02/20 10:00 02/04/20 09:58 Demadex - PO 20 mg DAILY [facility] Administration Impression 1. ELIZABETH 2. sepsis 3. shock 4. CHF 5. hx of htn 6. epidural abscess 7. ut 8. a-fib 9. hyponatremia 10. hyperkalemia Plan - cont to monitor renal function - cont current meds - monitor potassium - volume status stable - avoid nsaids
[2020-02-04] MEDS: RIVAROXABAN 20 MG TABLET PO SCH ×2 (16:57→18:51)
[2020-02-04] MEDS: LIDOCAINE PATCH REMOVAL MC SCH (21:58)
[2020-02-05] MEDS ORDERED: DEXTROSE 5%-WATER 100 ML IVPB ONE ×2 (00:31→09:25)
[2020-02-05] MEDS ORDERED: MEROPENEM 1 GM VIAL (RESTRICTED TO ID) IVPB ONE ×2 (00:31→09:25)
[2020-02-05] MEDS: ACETAMINOPHEN 650 MG/20.3 ML ORAL SOLUTION (CUPS) PO PRN (00:35)
[2020-02-05] MEDS: MEROPENEM 1 GM in DEXTROSE 5%-WATER 100 ML IVPB SCH ×3 (02:30→12:32)
[2020-02-05] MEDS: BACLOFEN 10 MG TABLET (FP) PO PRN (04:01)
[2020-02-05] MEDS: INSULIN SLIDING SCALE (NOVOLOG) 1 VIAL SQ SCH ×2 (06:29→12:43)
[2020-02-05 08:53] LABS: BLOOD UREA NITROGEN 22.9 mg/dL (7-18); CALCIUM 8.2 mg/dL (8.5-10.1); POTASSIUM 4.3 mmol/L (3.5-5.1)
[2020-02-05] MEDS: SODIUM ZIRCONIUM CYCLOSILICATE (LOKELMA) 5 GM PACKET PO SCH (10:19)
[2020-02-05] MEDS: metoPROLOL SUCCINATE 25 MG TAB.SR.24H (FP) PO SCH (10:20)
[2020-02-05] MEDS: CYANOCOBALAMIN 1,000 MCG TABLET (FP) PO SCH (10:20)
[2020-02-05] MEDS: TORSEMIDE 20 MG TABLET (FP) PO SCH (10:20)
[2020-02-05] MEDS: PRAMIPEXOLE DIHYDROCHLORIDE 0.25 MG TABLET PO SCH (10:20)
[2020-02-05] MEDS: PANTOPRAZOLE 20 MG TABLET PO SCH (10:20)
[2020-02-05] MEDS: AMINO ACIDS/PROTEIN HYDROLYS 30 ML LIQUID.PKT PO SCH (10:21)
[2020-02-05] MEDS: LIDOCAINE 5% TOPICAL PATCH TP SCH (10:22)
[2020-02-05] MEDS ORDERED: PT OWN MED DRAWER 7, Y5N ONE (10:23)
[2020-02-05] MEDS: SACUBITRIL/VALSARTAN 24 MG-26 MG TABLET PO SCH (10:41)
--- NOTE | 2020-02-05 11:56 | PN ---
Progress Note (short form) - Note Progress Note: Pt remains in the hospital as she was not able to receive PICC last night. No other changes.
[2020-02-05] MEDS ORDERED: FAMOTIDINE 20 MG TABLET PO ONE (12:48)
--- NOTE | 2020-02-05 14:21 | PN ---
Progress Note (short form) - Note Progress Note: Progress Note: Chief Complaint: weakness History of Present Illness: no sob, swelling, cp, palp Current Medications Generic Name Dose Route Start Last Admin Trade Name Freq PRN Reason Stop Dose Admin Acetaminophen 650 mg 02/01/20 11:34 02/05/20 00:35 Tylenol Oral Solution - PO 650 mg Q6H PRN Administration PAIN 1-3 Amino Acids 30 ml 01/29/20 17:30 02/05/20 10:21 Prosource No Carb Liquid Pkt PO Not Given BID@0800,1730 [facility] Baclofen 10 mg 01/31/20 21:03 02/05/20 04:01 Lioresal - PO 10 mg Q8H PRN Administration MUSCLE SPASMS Cyanocobalamin 1,000 mcg 02/01/20 10:00 02/05/20 10:20 Vitamin B12 - PO 1,000 mcg DAILY [facility] Administration Diazepam 5 mg 01/31/20 23:20 Valium Injection - IM ONCE PRN ANXIETY Docusate Sodium 100 mg 01/31/20 21:03 Colace - PO Q8H PRN CONSTIPATION Hydrocortisone 1 applic 01/31/20 21:03 Hytone 1% Cream - TP Q24H PRN FOR ITCHING Daptomycin 700 mg/ Sodium 50 mls @ 100 mls/hr 02/04/20 13:10 02/04/20 15:40 Chloride IVPB 100 mls/hr Q24H [facility] Administration Protocol Meropenem 1 gm/ Dextrose 100 mls @ 100 mls/hr 02/04/20 13:15 02/05/20 12:32 IVPB 100 mls/hr Q8H-IV [facility] Administration Insulin Aspart 1 vial 01/31/20 22:00 02/05/20 12:43 Novolog Vial Sliding Scale - SQ 4 units ACHS [facility] Administration Protocol Lidocaine 1 patch 02/01/20 10:00 02/05/20 10:22 Lidoderm Patch - TP 1 patch DAILY [facility] Administration Metoprolol Succinate 25 mg 02/03/20 22:00 02/05/20 10:20 Toprol Xl - PO 25 mg BID [facility] Administration Metoprolol Tartrate 5 mg 01/30/20 12:19 01/30/20 13:01 Lopressor Injection - IVPUSH 5 mg Q6H PRN Administration HYPERTENSION Miscellaneous 1 each 01/31/20 22:00 02/04/20 21:58 Lidoderm Patch Removal MC Not Given DAILY@2200 [facility] Olanzapine 5 mg 01/31/20 22:00 02/04/20 21:39 Zyprexa - PO 5 mg HS [facility] Administration Ondansetron HCl 8 mg 02/02/20 15:48 02/03/20 14:14 Zofran Injection IVPB 8 mg Q6H PRN Administration NAUSEA AND/OR VOMITING Pantoprazole Sodium 20 mg 02/03/20 10:00 02/05/20 10:20 Protonix - PO 20 mg DAILY [facility] Administration Pramipexole Dihydrochloride 0.25 mg 01/31/20 22:00 02/05/20 10:20 Mirapex - PO 0.25 mg BID [facility] Administration Rivaroxaban 20 mg 02/02/20 18:00 02/04/20 18:51 Xarelto PO Not Given DAILY@1800 [facility] Sacubitril/Valsartan 1 tab 02/02/20 10:00 02/05/20 10:41 Entresto 24 Mg-26 Mg Tablet PO 1 tab BID [facility] Administration Sodium Zirconium Cyclosilicate 10 gm 01/31/20 18:00 02/05/20 10:19 Lokelma PO Not Given DAILY [facility] Torsemide 20 mg 02/02/20 10:00 02/05/20 10:20 Demadex - PO 20 mg DAILY [facility] Administration Vital Signs Period Temp Pulse Resp BP Sys/Marcelo Pulse Ox Last 24 Hr 97.5 F-98.3 F 77-95 20-20 98-112/47-64 95-96 Constitutional: Yes: Well Nourished, No Distress, Calm Cardiovascular: Yes: Regular Rate and Rhythm. No: JVD, Murmur Respiratory: Yes: Regular, CTA Bilaterally. No: Accessory Muscle Use abd: soft, nt, nd + bs Extremities: No: Cold Edema: No Neurological: Yes: Alert, Oriented Psychiatric: No: Agitated no jaundice, diaphoresis Assessment/Plan tele: AF, generally rate ok with episode of RVR to 150s IMP: Epidural abscess, wound infection Acute renal failure Hyponatremia Acute on chronic systolic CHF, with what appears to be new LV dysfx from 2018 Moderate MR Prolonged QT PAF HTN 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 REC: epidural abscess s/p DASH drain possible drain infection here, sepsis, UTI: - manage per surgery, ID, hospitalist team acute renal failure: -Suspect ATN due to periods of intermittent hypotension -Renal following -cr improved Hypotension: -volume depletion/sepsis likely etiology, BP normalized, s/p DASH drain removed chronic systolic CHF, nonischemic cardiomyopathy, moderate MR: -known nonisch CMP with normal coronaries on cath x 2 -EF has fluctuated 35-55% over the years, likely in relation to severity of untreated NICHOLE, vs ? diabetic (uncontrolled glycemic status, does not f/u with PMD despite repeatedly advised to do so) -EF moderately reduced, last echo here EF 35-40% -does not appear vol overloaded now, no accurate weights trend available. -cont bb -in setting of persistent intermittent hypotension, torsemide (home dose 50 qd) and entresto held - BP has stabilized, K high normal range. Resumed Entresto 24-26 with low dose torsemide to start (20mg), to help with hyperkalemia tendencies), continue - coreg dc'ed for low bps, now stable on metoprolol - continue PAF: - Cont Xarelto, increase back to 20mg dose as GFR has normalized - RVR at times - increased metopr to 25 bid, BP stable, rate generally controlled - continue - monitoring on tele DVT/PE with history of filter: -cont with AC NICHOLE: -not using CPAP Uncontrolled DM: -mgmt per hospitalist team
--- NOTE | 2020-02-05 15:09 | PN ---
Progress Note, Physician History of Present Illness: patient stable no new issues - Current Medication List Current Medications: Active Medications Acetaminophen (Tylenol Oral Solution -) 650 mg PO Q6H PRN PRN Reason: PAIN 1-3 Last Admin: 02/05/20 00:35 Dose: 650 mg Documented by: Amino Acids (Prosource No Carb Liquid Pkt) 30 ml PO BID@0800,1730 [facility] Last Admin: 02/05/20 10:21 Dose: Not Given Documented by: Baclofen (Lioresal -) 10 mg PO Q8H PRN PRN Reason: MUSCLE SPASMS Last Admin: 02/05/20 04:01 Dose: 10 mg Documented by: Cyanocobalamin (Vitamin B12 -) 1,000 mcg PO DAILY [facility] Last Admin: 02/05/20 10:20 Dose: 1,000 mcg Documented by: Diazepam (Valium Injection -) 5 mg IM ONCE PRN PRN Reason: ANXIETY Docusate Sodium (Colace -) 100 mg PO Q8H PRN PRN Reason: CONSTIPATION Hydrocortisone (Hytone 1% Cream -) 1 applic TP Q24H PRN PRN Reason: FOR ITCHING Daptomycin 700 mg/ Sodium (Chloride) 50 mls @ 100 mls/hr IVPB Q24H [facility]; Protocol Last Admin: 02/04/20 15:40 Dose: 100 mls/hr Documented by: Meropenem 1 gm/ Dextrose 100 mls @ 100 mls/hr IVPB Q8H-IV [facility] Last Admin: 02/05/20 12:32 Dose: 100 mls/hr Documented by: Insulin Aspart (Novolog Vial Sliding Scale -) 1 vial SQ ACHS [facility]; Protocol Last Admin: 02/05/20 12:43 Dose: 4 units Documented by: Lidocaine (Lidoderm Patch -) 1 patch TP DAILY [facility] Last Admin: 02/05/20 10:22 Dose: 1 patch Documented by: Metoprolol Succinate (Toprol Xl -) 25 mg PO BID [facility] Last Admin: 02/05/20 10:20 Dose: 25 mg Documented by: Metoprolol Tartrate (Lopressor Injection -) 5 mg IVPUSH Q6H PRN PRN Reason: HYPERTENSION Last Admin: 01/30/20 13:01 Dose: 5 mg Documented by: Miscellaneous (Lidoderm Patch Removal) 1 each MC DAILY@2200 [facility] Last Admin: 02/04/20 21:58 Dose: Not Given Documented by: Olanzapine (Zyprexa -) 5 mg PO HS [facility] Last Admin: 02/04/20 21:39 Dose: 5 mg Documented by: Ondansetron HCl (Zofran Injection) 8 mg IVPB Q6H PRN PRN Reason: NAUSEA AND/OR VOMITING Last Admin: 02/03/20 14:14 Dose: 8 mg Documented by: Pantoprazole Sodium (Protonix -) 20 mg PO DAILY [facility] Last Admin: 02/05/20 10:20 Dose: 20 mg Documented by: Pramipexole Dihydrochloride (Mirapex -) 0.25 mg PO BID [facility] Last Admin: 02/05/20 10:20 Dose: 0.25 mg Documented by: Rivaroxaban (Xarelto) 20 mg PO DAILY@1800 [facility] Last Admin: 02/04/20 18:51 Dose: Not Given Documented by: Sacubitril/Valsartan (Entresto 24 Mg-26 Mg Tablet) 1 tab PO BID [facility] Last Admin: 02/05/20 10:41 Dose: 1 tab Documented by: Sodium Zirconium Cyclosilicate (Lokelma) 10 gm PO DAILY [facility] Last Admin: 02/05/20 10:19 Dose: Not Given Documented by: Torsemide (Demadex -) 20 mg PO DAILY [facility] Last Admin: 02/05/20 10:20 Dose: 20 mg Documented by: - Objective Vital Signs: Vital Signs Temperature 98.0 F 02/05/20 09:17 Pulse Rate 90 02/05/20 09:17 Respiratory Rate 20 02/05/20 09:17 Blood Pressure 112/51 L 02/05/20 09:17 O2 Sat by Pulse Oximetry (%) 95 02/05/20 09:00 Constitutional: Yes: No Distress, Calm Cardiovascular: Yes: Regular Rate and Rhythm Respiratory: Yes: Regular, CTA Bilaterally Gastrointestinal: Yes: Normal Bowel Sounds, Soft Musculoskeletal: Yes: WNL Extremities: Yes: WNL Neurological: Yes: Alert, Oriented Psychiatric: Yes: Alert, Oriented Labs: CBC, BMP 02/02/20 05:25 02/05/20 05:40 INR, PTT INR 1.57 (0.83-1.09) H 01/20/20 06:45 Assessment/Plan roblem List - Problems (1) UTI (urinary tract infection) Code(s): N39.0 - URINARY TRACT INFECTION, SITE NOT SPECIFIED (2) Epidural abscess Code(s): G06.2 - EXTRADURAL AND SUBDURAL ABSCESS, UNSPECIFIED (3) Chronic systolic heart failure Code(s): I50.22 - CHRONIC SYSTOLIC (CONGESTIVE) HEART FAILURE (4) Diabetes Code(s): E11.9 - TYPE 2 DIABETES MELLITUS WITHOUT COMPLICATIONS Qualifiers: Diabetes mellitus type: type 2 (5) History of DVT (deep vein thrombosis) Code(s): Z86.718 - PERSONAL HISTORY OF OTHER VENOUS THROMBOSIS AND EMBOLISM (6) Hypertension Code(s): I10 - ESSENTIAL (PRIMARY) HYPERTENSION (7) Non-ischemic cardiomyopathy Code(s): I42.9 - CARDIOMYOPATHY, UNSPECIFIED (8) Obstructive sleep apnea Code(s): G47.33 - OBSTRUCTIVE SLEEP APNEA (ADULT) (PEDIATRIC) 9 vertebral abscess Assessment/Plan Bacteremia UTI Epidural abscess - s/p drainage/DASH in place DM CHF Hx of DVT AFIB all the cx results noted unfortunately patient is going to need meropenam with dapto will need esr crp weekly rest as per the team 4 more weeks
[2020-02-05 15:19] VITALS: BP 136/72; PULSE 84; TEMP 99.6
[2020-02-05] MEDS: DAPTOMYCIN 700 MG in SODIUM CHLORIDE 50 ML IVPB SCH (16:40)
--- NOTE | 2020-02-05 18:00 | PN ---
Progress Note, Physician History of Present Illness: Pt seen and examined at bedside. She is awake and alert. She denies shortness of breath. - Objective Vital Signs: Vital Signs Temperature 99.6 F 02/05/20 14:00 Pulse Rate 84 02/05/20 14:00 Respiratory Rate 20 02/05/20 09:17 Blood Pressure 136/72 02/05/20 14:00 O2 Sat by Pulse Oximetry (%) 95 02/05/20 09:00 Constitutional: Yes: Calm Eyes: Yes: Conjunctiva Clear HENT: Yes: Atraumatic Neck: Yes: Supple Cardiovascular: Yes: S1, S2 Respiratory: Yes: CTA Bilaterally Gastrointestinal: Yes: Soft Genitourinary: Yes: WNL Edema: No Neurological: Yes: Oriented Labs: CBC, BMP 02/02/20 05:25 02/05/20 05:40 INR, PTT INR 1.57 (0.83-1.09) H 01/20/20 06:45 Problem List - Problems (1) ELIZABETH (acute kidney injury) Code(s): N17.9 - ACUTE KIDNEY FAILURE, UNSPECIFIED Assessment/Plan Current Medications Generic Name Dose Route Start Last Admin Trade Name Freq PRN Reason Stop Dose Admin Acetaminophen 650 mg 02/01/20 11:34 02/04/20 03:52 Tylenol Oral Solution - PO 650 mg Q6H PRN Administration PAIN 1-3 Amino Acids 30 ml 01/29/20 17:30 02/04/20 09:57 Prosource No Carb Liquid Pkt PO 30 ml BID@0800,1730 LISA Administration Baclofen 10 mg 01/31/20 21:03 02/01/20 09:15 Lioresal - PO 10 mg Q8H PRN Administration MUSCLE SPASMS Cyanocobalamin 1,000 mcg 02/01/20 10:00 02/04/20 09:58 Vitamin B12 - PO 1,000 mcg DAILY LISA Administration Diazepam 5 mg 01/31/20 23:20 Valium Injection - IM ONCE PRN ANXIETY Docusate Sodium 100 mg 01/31/20 21:03 Colace - PO Q8H PRN CONSTIPATION Hydrocortisone 1 applic 01/31/20 21:03 Hytone 1% Cream - TP Q24H PRN FOR ITCHING Daptomycin 700 mg/ Sodium 50 mls @ 100 mls/hr 02/04/20 13:10 02/04/20 15:40 Chloride IVPB 100 mls/hr Q24H LISA Administration Protocol Meropenem 1 gm/ Dextrose 100 mls @ 100 mls/hr 02/04/20 13:15 02/04/20 14:15 IVPB 100 mls/hr Q8H-IV LISA Administration Insulin Aspart 1 vial 01/31/20 22:00 02/04/20 11:38 Novolog Vial Sliding Scale - SQ 4 units ACHS LISA Administration Protocol Lidocaine 1 patch 02/01/20 10:00 02/04/20 09:56 Lidoderm Patch - TP 1 patch DAILY LISA Administration Metoprolol Succinate 25 mg 02/03/20 22:00 02/04/20 09:58 Toprol Xl - PO 25 mg BID LISA Administration Metoprolol Tartrate 5 mg 01/30/20 12:19 01/30/20 13:01 Lopressor Injection - IVPUSH 5 mg Q6H PRN Administration HYPERTENSION Miscellaneous 1 each 01/31/20 22:00 02/03/20 22:05 Lidoderm Patch Removal MC Not Given DAILY@2200 LISA Olanzapine 5 mg 01/31/20 22:00 02/04/20 09:57 Zyprexa - PO 5 mg HS LISA Administration Ondansetron HCl 8 mg 02/02/20 15:48 02/03/20 14:14 Zofran Injection IVPB 8 mg Q6H PRN Administration NAUSEA AND/OR VOMITING Pantoprazole Sodium 20 mg 02/03/20 10:00 02/04/20 09:58 Protonix - PO 20 mg DAILY LISA Administration Pramipexole Dihydrochloride 0.25 mg 01/31/20 22:00 02/04/20 09:58 Mirapex - PO 0.25 mg BID LISA Administration Rivaroxaban 20 mg 02/02/20 18:00 02/03/20 17:13 Xarelto PO 20 mg DAILY@1800 LISA Administration Sacubitril/Valsartan 1 tab 02/02/20 10:00 02/04/20 09:57 Entresto 24 Mg-26 Mg Tablet PO 1 tab BID LISA Administration Sodium Zirconium Cyclosilicate 10 gm 01/31/20 18:00 02/04/20 09:56 Lokelma PO 10 gm DAILY LISA Administration Torsemide 20 mg 02/02/20 10:00 02/04/20 09:58 Demadex - PO 20 mg DAILY LISA Administration Impression 1. ELIZABETH 2. sepsis 3. shock 4. CHF 5. hx of htn 6. epidural abscess 7. ut 8. a-fib 9. hyponatremia 10. 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
== END 2020-02-05 16:52 | disposition home or self-care (01) | DRG 871 ==
LOC: JER 16:08 → JERBED 21:21 → J6S 01-20 00:44 → J4S 01-24 20:55 → JICU 01-25 00:34 → J4W 01-31 20:16
PROVIDERS: ADMIT Internal Medicine
PROC: 05HN33Z Insertion of Infusion Device into Left Internal Jugular Vein, Percutaneous Approach (ICD-10-PCS; principal; 2020-01-25)
PROC: B544ZZA Ultrasonography of Left Jugular Veins, Guidance (ICD-10-PCS; 2020-01-25)
PROC: 00PUX0Z Removal of Drainage Device from Spinal Canal, External Approach (ICD-10-PCS; 2020-02-01)
PROC: 02HV33Z Insertion of Infusion Device into Superior Vena Cava, Percutaneous Approach (ICD-10-PCS; 2020-02-05)
DX: A41.51 Sepsis due to Escherichia coli [E. coli] (principal); N17.0 Acute kidney failure with tubular necrosis; R65.21 Severe sepsis with septic shock; G06.2 Extradural and subdural abscess, unspecified; I42.8 Other cardiomyopathies; E87.1 Hypo-osmolality and hyponatremia; I50.22 Chronic systolic (congestive) heart failure; G97.63 Postprocedural seroma of a nervous system organ or structure following a nervous system procedure; N39.0 Urinary tract infection, site not specified; M06.9 Rheumatoid arthritis, unspecified; I48.0 Paroxysmal atrial fibrillation; G47.33 Obstructive sleep apnea (adult) (pediatric); I11.0 Hypertensive heart disease with heart failure; E66.01 Morbid (severe) obesity due to excess calories; Z68.36 Body mass index [BMI] 36.0-36.9, adult; M21.371 Foot drop, right foot; I95.9 Hypotension, unspecified; E86.0 Dehydration; D64.9 Anemia, unspecified; I34.0 Nonrheumatic mitral (valve) insufficiency; R94.31 Abnormal electrocardiogram [ECG] [EKG]; F41.9 Anxiety disorder, unspecified; E87.5 Hyperkalemia; E11.65 Type 2 diabetes mellitus with hyperglycemia; L29.9 Pruritus, unspecified; Z86.718 Personal history of other venous thrombosis and embolism; Z86.711 Personal history of pulmonary embolism; Z96.653 Presence of artificial knee joint, bilateral; Z96.643 Presence of artificial hip joint, bilateral; Z88.0 Allergy status to penicillin
CPT/HCPCS: 36415; 36569; 71045-TC-FY; 72128-TC; 72131-TC; 74176-TC; 76775-TC; 77001-TC-FY; 80048; 80053; 81003; 82436; 82550; 82553; 82803; 82962; 83036; 83605; 83735; 83930; 83935; 84100; 84133; 84300; 84484; 85025; 85027; 85610; 85651; 85730; 86140; 86850; 86900; 86901; 87040; 87070; 87075; 87076; 87086; 87186; 87205; 93005; 93010; 97116-GP; 97161-GP; 99285-25; C1751; G0480; J0131; J0475; J0878; U0003

== ENCOUNTER → 2020-03-07 | Day surgery (SDC) | payer OTHER | END | disposition home or self-care (01) | LOC: JRADIR 13:53 | PROVIDERS: ATTEND Radiology Diagnostic Radiology | PROC: 05HY33Z Insertion of Infusion Device into Upper Vein, Percutaneous Approach (ICD-10-PCS; principal; 2020-03-07) | DX: G06.2 Extradural and subdural abscess, unspecified (principal) | CPT/HCPCS: 36569; 77001-TC-FY; C1751 ==

== ENCOUNTER 2020-06-08 15:26 | Inpatient (IN) | payer OTHER ==
[2020-06-08] MEDS ORDERED: HYDROmorphone HCL CARPU-JECT 2 MG/1 ML DISP.SYRIN IVPUSH ONE ×3 (15:53→18:51)
[2020-06-08] MEDS ORDERED: ACETAMINOPHEN 1000 MG/100 ML VIAL (NON FORMULARY) IVPB ONE (15:53)
[2020-06-08] MEDS ORDERED: ACETAMINOPHEN INJECTION 100 ML IVPB ONE ×2 (16:04→22:25)
[2020-06-08 16:23] LABS: BASO % 1.3 % (0-2.0); HEMATOCRIT 38.8 % (32.4-45.2); HEMOGLOBIN 12.3 GM/dL (10.7-15.3); LYMPH % 24.1 % (8-40); MCH 28.7 pg (25.7-33.7); MCHC 31.6 g/dl (32.0-36.0); MEAN CELL VOLUME 90.8 fl (80-96); MEAN PLT VOLUME 8.8 fl (7.5-11.1); MONO % 10.2 % (3.8-10.2); NEUT % 61.4 % (42.8-82.8); PLATELET COUNT 236 K/MM3 (134-434); RBC 4.28 M/mm3 (3.60-5.2); RDW 15.9 % (11.6-15.6); WHITE BLOOD COUNT 5.7 K/mm3 (4.0-10.0)
[2020-06-08 16:37] LABS: CHLORIDE 107 mmol/L (98-107); POTASSIUM 5.3 mmol/L (3.5-5.1); SODIUM 139 mmol/L (136-145)
[2020-06-08 16:39] LABS: ALBUMIN 3.1 g/dl (3.4-5.0); CALCIUM 8.8 mg/dL (8.5-10.1)
[2020-06-08 16:40] LABS: ANION GAP 8 MMOL/L (8-16); CO2 24 mmol/L (21-32); GLUCOSE,RANDOM 170 mg/dL (74-106)
[2020-06-08 16:43] LABS: CREATININE 0.9 mg/dL (0.55-1.3); SGOT/AST 47 U/L (15-37); SGPT/ALT 14 U/L (13-61)
[2020-06-08 16:44] LABS: BILIRUBIN,TOTAL 0.6 mg/dL (0.2-1); TOT PROT 7.3 g/dl (6.4-8.2)
[2020-06-08 16:46] LABS: ALK PHOS 121 U/L (45-117)
[2020-06-08 16:59] LABS: EPI CELLS >36 /uL (0-25.1); HYALINE CASTS 19 /uL (0-3.1); URINE APPEARANCE CLEAR; URINE BACTERIA 29 /uL (0-1359); URINE BILIRUBIN NEGATIVE (NEGATIVE); URINE COLOR YELLOW; URINE GLUCOSE (UA) NEGATIVE (NEGATIVE); URINE KETONE NEGATIVE (NEGATIVE); URINE LEUK ESTERASE 2+ (NEGATIVE); URINE NITRITE NEGATIVE (NEGATIVE); URINE PROTEIN 1+ (NEGATIVE); URINE RBC 8 /uL (0-23.9); URINE WBC 77 /uL (0-25.8)
[2020-06-08] MEDS ORDERED: SODIUM CHLORIDE 0.9% 500 ML INFUS.BAG IV ONE (17:40)
[2020-06-08] MEDS ORDERED: HYDROmorphone HCl 2 MG/ML VIAL ONE ×3 (17:55→23:45)
[2020-06-08] MEDS ORDERED: MEROPENEM 1 GM in DEXTROSE 5%-WATER 100 ML IVPB ONE (19:12)
[2020-06-08] MEDS ORDERED: LIDOCAINE 5% TOPICAL PATCH TP ONE (21:03)
[2020-06-08] MEDS ORDERED: LIDOCAINE 5% TOPICAL PATCH ONE (21:19)
[2020-06-08 21:45] LABS: URINE APPEARANCE CLEAR; URINE BILIRUBIN NEGATIVE (NEGATIVE); URINE COLOR YELLOW; URINE GLUCOSE (UA) NEGATIVE (NEGATIVE); URINE KETONE NEGATIVE (NEGATIVE); URINE LEUK ESTERASE NEGATIVE (NEGATIVE); URINE NITRITE NEGATIVE (NEGATIVE); URINE PROTEIN NEGATIVE (NEGATIVE); URINE UROBILINOGEN 0.2 mg/dL (0.2-1.0)
[2020-06-08] MEDS ORDERED: metoPROLOL SUCCINATE 25 MG TAB.SR.24H (FP) ONE (22:04)
[2020-06-08] MEDS: INSULIN SLIDING SCALE (NOVOLOG) 1 VIAL SQ SCH (22:16)
[2020-06-08] MEDS: metoPROLOL SUCCINATE 25 MG TAB.SR.24H (FP) PO SCH (22:16)
[2020-06-08] MEDS: LIDOCAINE PATCH REMOVAL MC SCH (22:17)
[2020-06-08] MEDS: ACETAMINOPHEN 1000 MG/100 ML VIAL (NON FORMULARY) IVPB PRN (22:33)
[2020-06-08] MEDS ORDERED: HYDROmorphone HCl 2 MG/ML VIAL IVPUSH ONE (23:10)
[2020-06-09] MEDS ORDERED: diphenhydrAMINE HCL 25 MG CAPSULE (FP) PO ONE (01:48)
[2020-06-09] MEDS: ACETAMINOPHEN 1000 MG/100 ML VIAL (NON FORMULARY) IVPB PRN ×2 (04:51→11:09)
[2020-06-09] MEDS: INSULIN SLIDING SCALE (NOVOLOG) 1 VIAL SQ SCH ×4 (06:06→22:14)
[2020-06-09 08:41] LABS: BASO % 1.9 % (0-2.0); HEMATOCRIT 35.7 % (32.4-45.2); HEMOGLOBIN 11.2 GM/dL (10.7-15.3); LYMPH % 27.6 % (8-40); MCH 28.2 pg (25.7-33.7); MCHC 31.2 g/dl (32.0-36.0); MEAN CELL VOLUME 90.4 fl (80-96); MEAN PLT VOLUME 8.4 fl (7.5-11.1); NEUT % 51.5 % (42.8-82.8); PLATELET COUNT 204 K/MM3 (134-434); RBC 3.95 M/mm3 (3.60-5.2); RDW 16.2 % (11.6-15.6); WHITE BLOOD COUNT 4.9 K/mm3 (4.0-10.0)
[2020-06-09] MEDS: metoPROLOL SUCCINATE 25 MG TAB.SR.24H (FP) PO SCH ×2 (09:01→22:11)
[2020-06-09 09:11] LABS: CALCIUM 8.6 mg/dL (8.5-10.1)
[2020-06-09 09:12] LABS: BLOOD UREA NITROGEN 20.1 mg/dL (7-18); MAGNESIUM 2.5 mg/dL (1.8-2.4)
[2020-06-09 09:14] LABS: BILIRUBIN,TOTAL 0.4 mg/dL (0.2-1); TOT PROT 6.7 g/dl (6.4-8.2)
[2020-06-09 09:15] LABS: CREATININE 0.9 mg/dL (0.55-1.3)
[2020-06-09 10:54] LABS: INR 1.16 (0.83-1.09)
[2020-06-09 10:57] LABS: ACTIVATED PTT 31.1 SECONDS (25.2-36.5)
[2020-06-09] MEDS ORDERED: MEROPENEM 1 GM VIAL (RESTRICTED TO ID) IVPB ONE ×2 (11:03→17:20)
[2020-06-09] MEDS ORDERED: DEXTROSE 5%-WATER 100 ML IVPB ONE ×2 (11:04→17:20)
[2020-06-09] MEDS: MEROPENEM 1 GM in DEXTROSE 5%-WATER 100 ML IVPB SCH ×2 (11:09→17:42)
[2020-06-09] MEDS ORDERED: GABAPENTIN 400 MG CAPSULE PO SCH (14:00)
[2020-06-09] MEDS: GABAPENTIN 300 MG CAPSULE PO SCH ×2 (14:22→22:13)
[2020-06-09] MEDS: BACLOFEN 10 MG TABLET (FP) PO PRN (14:22)
[2020-06-09] MEDS: oxyCODONE HCL 5 MG TABLET PO PRN (15:06)
[2020-06-09] MEDS: FERROUS SO4 325 MG TABLET (FP) PO SCH (17:43)
[2020-06-09] MEDS ORDERED: metoPROLOL SUCCINATE 25 MG TAB.SR.24H (FP) PO SCH (22:00)
[2020-06-09] MEDS ORDERED: PT OWN MED DRAWER 7, Y5N ONE (22:03)
[2020-06-09] MEDS: PRAMIPEXOLE DIHYDROCHLORIDE 0.25 MG TABLET PO SCH (22:12)
[2020-06-09] MEDS: SACUBITRIL/VALSARTAN 24 MG-26 MG TABLET PO SCH (22:12)
[2020-06-09] MEDS: LIDOCAINE PATCH REMOVAL MC SCH ×2 (22:18→22:35)
[2020-06-09] MEDS: ZOLPIDEM TARTRATE 5 MG TABLET PO PRN (22:22)
[2020-06-10] MEDS ORDERED: MEROPENEM 1 GM VIAL (RESTRICTED TO ID) IVPB ONE ×3 (00:47→16:12)
[2020-06-10] MEDS ORDERED: DEXTROSE 5%-WATER 100 ML IVPB ONE ×3 (00:47→16:12)
[2020-06-10] MEDS: MEROPENEM 1 GM in DEXTROSE 5%-WATER 100 ML IVPB SCH ×3 (00:59→17:09)
[2020-06-10] MEDS: GABAPENTIN 300 MG CAPSULE PO SCH ×3 (05:53→21:31)
[2020-06-10] MEDS: oxyCODONE HCL 5 MG TABLET PO PRN ×3 (05:54→17:47)
[2020-06-10] MEDS: INSULIN SLIDING SCALE (NOVOLOG) 1 VIAL SQ SCH ×4 (05:59→21:30)
[2020-06-10 08:05] LABS: BASO % 1.1 % (0-2.0); EOS % 4.2 % (0-4.5); HEMATOCRIT 36.3 % (32.4-45.2); HEMOGLOBIN 11.6 GM/dL (10.7-15.3); LYMPH % 19.5 % (8-40); MCH 28.7 pg (25.7-33.7); MCHC 32.1 g/dl (32.0-36.0); MEAN CELL VOLUME 89.6 fl (80-96); MEAN PLT VOLUME 8.5 fl (7.5-11.1); MONO % 10.5 % (3.8-10.2); NEUT % 64.7 % (42.8-82.8); PLATELET COUNT 221 K/MM3 (134-434); RBC 4.05 M/mm3 (3.60-5.2); RDW 15.6 % (11.6-15.6)
[2020-06-10 08:20] LABS: POTASSIUM 3.9 mmol/L (3.5-5.1)
[2020-06-10 08:22] LABS: BLOOD UREA NITROGEN 19.6 mg/dL (7-18); MAGNESIUM 2.7 mg/dL (1.8-2.4)
[2020-06-10] MEDS ORDERED: INSULIN (NOVOLOG) ASPART 100 UNITS/ML 10ML VIAL ONE (08:53)
[2020-06-10] MEDS: BACLOFEN 10 MG TABLET (FP) PO PRN ×2 (09:22→16:20)
[2020-06-10] MEDS: metoPROLOL SUCCINATE 25 MG TAB.SR.24H (FP) PO SCH ×2 (09:22→21:31)
[2020-06-10] MEDS: FERROUS SO4 325 MG TABLET (FP) PO SCH ×2 (09:22→16:29)
[2020-06-10] MEDS: CYANOCOBALAMIN 1,000 MCG TABLET (FP) PO SCH (09:22)
[2020-06-10] MEDS: SACUBITRIL/VALSARTAN 24 MG-26 MG TABLET PO SCH ×2 (09:22→21:31)
[2020-06-10] MEDS: PRAMIPEXOLE DIHYDROCHLORIDE 0.25 MG TABLET PO SCH ×2 (09:22→21:31)
[2020-06-10] MEDS: LEFLUNOMIDE 10 MG TABLET PO SCH (09:23)
[2020-06-10 09:35] LABS: ERYTHROCYTE SEDIMENTATION RATE 50 mm/hr (0-30)
[2020-06-10] MEDS: TORSEMIDE 20 MG TABLET (FP) PO SCH (11:27)
[2020-06-10] MEDS ORDERED: HEPARIN NA (PORCINE) 5,000 UNITS/ML 1ML VIAL IVPUSH PRN ×2 (12:42)
[2020-06-10] MEDS ORDERED: HEPARIN - 25,000 UNIT in SODIUM CHLORIDE 495 ML IV SCH (12:45)
[2020-06-10] MEDS: ENOXAPARIN NA (PORCINE) 40 MG/0.4 ML DISP.SYRIN SQ SCH (21:31)
[2020-06-11] MEDS ORDERED: MEROPENEM 1 GM VIAL (RESTRICTED TO ID) IVPB ONE ×3 (02:25→17:12)
[2020-06-11] MEDS ORDERED: DEXTROSE 5%-WATER 100 ML IVPB ONE ×3 (02:25→17:12)
[2020-06-11] MEDS: MEROPENEM 1 GM in DEXTROSE 5%-WATER 100 ML IVPB SCH ×3 (02:37→17:29)
[2020-06-11] MEDS: GABAPENTIN 300 MG CAPSULE PO SCH ×3 (06:05→22:12)
[2020-06-11] MEDS: INSULIN SLIDING SCALE (NOVOLOG) 1 VIAL SQ SCH ×4 (06:05→22:18)
[2020-06-11 06:39] LABS: BASO % 1.4 % (0-2.0); EOS % 7.1 % (0-4.5); HEMATOCRIT 39.4 % (32.4-45.2); HEMOGLOBIN 12.7 GM/dL (10.7-15.3); LYMPH % 16.2 % (8-40); MCH 28.7 pg (25.7-33.7); MCHC 32.2 g/dl (32.0-36.0); MEAN CELL VOLUME 89.3 fl (80-96); MEAN PLT VOLUME 8.5 fl (7.5-11.1); MONO % 14.2 % (3.8-10.2); NEUT % 61.1 % (42.8-82.8); PLATELET COUNT 189 K/MM3 (134-434); RBC 4.42 M/mm3 (3.60-5.2); RDW 15.9 % (11.6-15.6)
[2020-06-11 06:45] LABS: POTASSIUM 3.9 mmol/L (3.5-5.1)
[2020-06-11 06:50] LABS: CALCIUM 8.8 mg/dL (8.5-10.1)
[2020-06-11 06:51] LABS: ALBUMIN 2.8 g/dl (3.4-5.0); BLOOD UREA NITROGEN 20.5 mg/dL (7-18); MAGNESIUM 2.4 mg/dL (1.8-2.4)
[2020-06-11 06:55] LABS: BILIRUBIN,TOTAL 0.5 mg/dL (0.2-1); TOT PROT 6.6 g/dl (6.4-8.2)
[2020-06-11] MEDS: oxyCODONE HCL 5 MG TABLET PO PRN (07:10)
[2020-06-11] MEDS: FERROUS SO4 325 MG TABLET (FP) PO SCH ×2 (09:05→17:30)
[2020-06-11] MEDS: LEFLUNOMIDE 10 MG TABLET PO SCH (09:05)
[2020-06-11] MEDS: CYANOCOBALAMIN 1,000 MCG TABLET (FP) PO SCH (09:05)
[2020-06-11] MEDS: SACUBITRIL/VALSARTAN 24 MG-26 MG TABLET PO SCH ×2 (09:07→22:29)
[2020-06-11] MEDS: PRAMIPEXOLE DIHYDROCHLORIDE 0.25 MG TABLET PO SCH ×2 (09:07→22:11)
[2020-06-11] MEDS: ENOXAPARIN NA (PORCINE) 40 MG/0.4 ML DISP.SYRIN SQ SCH ×2 (09:07→22:11)
[2020-06-11] MEDS: metoPROLOL SUCCINATE 25 MG TAB.SR.24H (FP) PO SCH ×2 (09:08→22:11)
[2020-06-11] MEDS: TORSEMIDE 20 MG TABLET (FP) PO SCH ×2 (09:09→11:56)
[2020-06-11] MEDS ORDERED: oxyCODONE HCL 5 MG TABLET PO PRN ×3 (09:14→18:44)
[2020-06-11] MEDS ORDERED: HYDROmorphone HCl 2 MG/ML VIAL IVPB PRN (09:51)
[2020-06-11] MEDS ORDERED: BACLOFEN 10 MG TABLET (FP) PO PRN ×3 (09:54→22:35)
[2020-06-11] MEDS ORDERED: PT OWN MED DRAWER 7, Y5N ONE ×4 (11:54→16:30)
[2020-06-11] MEDS ORDERED: GABAPENTIN 300 MG CAPSULE PO SCH (14:00)
[2020-06-11] MEDS ORDERED: FUROSEMIDE 40 MG/4 ML INJECTABLE VIAL IVPUSH ONE ×2 (18:41→20:33)
[2020-06-11] MEDS ORDERED: ALBUTEROL SO4 2.5/IPRATROPIUM 0.5 INH SOL 3 ML VIAL.NEB. NEB PRN ×2 (18:42→22:35)
[2020-06-11] MEDS ORDERED: ALBUTEROL SO4 2.5/IPRATROPIUM 0.5 INH SOL 3 ML VIAL.NEB. NEB ONE (18:42)
[2020-06-11 21:25] LABS: BASO % 1.2 % (0-2.0); EOS % 7.9 % (0-4.5); HEMATOCRIT 36.2 % (32.4-45.2); HEMOGLOBIN 11.4 GM/dL (10.7-15.3); LYMPH % 14.6 % (8-40); MCH 28.5 pg (25.7-33.7); MCHC 31.5 g/dl (32.0-36.0); MEAN CELL VOLUME 90.3 fl (80-96); MEAN PLT VOLUME 8.6 fl (7.5-11.1); MONO % 15.9 % (3.8-10.2); NEUT % 60.4 % (42.8-82.8); PLATELET COUNT 190 K/MM3 (134-434); RBC 4.01 M/mm3 (3.60-5.2); WHITE BLOOD COUNT 4.9 K/mm3 (4.0-10.0)
[2020-06-11 21:47] LABS: POTASSIUM 4.8 mmol/L (3.5-5.1)
[2020-06-11 21:49] LABS: ALBUMIN 2.6 g/dl (3.4-5.0); CALCIUM 8.6 mg/dL (8.5-10.1)
[2020-06-11 21:50] LABS: MAGNESIUM 2.5 mg/dL (1.8-2.4)
[2020-06-11 21:52] LABS: CREATININE 1.2 mg/dL (0.55-1.3)
[2020-06-11 21:54] LABS: BILIRUBIN,TOTAL 0.4 mg/dL (0.2-1)
[2020-06-11 21:55] LABS: TOT PROT 6.2 g/dl (6.4-8.2)
[2020-06-11] MEDS: ZOLPIDEM TARTRATE 5 MG TABLET PO PRN (22:11)
[2020-06-12] MEDS ORDERED: MEROPENEM 1 GM VIAL (RESTRICTED TO ID) IVPB ONE ×3 (03:03→17:21)
[2020-06-12] MEDS ORDERED: DEXTROSE 5%-WATER 100 ML IVPB ONE ×3 (03:03→17:21)
[2020-06-12] MEDS: MEROPENEM 1 GM in DEXTROSE 5%-WATER 100 ML IVPB SCH ×3 (03:26→17:26)
[2020-06-12] MEDS: INSULIN SLIDING SCALE (NOVOLOG) 1 VIAL SQ SCH ×4 (06:09→21:43)
[2020-06-12] MEDS: GABAPENTIN 300 MG CAPSULE PO SCH ×3 (06:10→21:46)
[2020-06-12 06:56] LABS: POTASSIUM 4.1 mmol/L (3.5-5.1)
[2020-06-12 06:58] LABS: ALBUMIN 2.5 g/dl (3.4-5.0); BLOOD UREA NITROGEN 24.1 mg/dL (7-18); CALCIUM 8.6 mg/dL (8.5-10.1); MAGNESIUM 2.7 mg/dL (1.8-2.4)
[2020-06-12 07:03] LABS: BILIRUBIN,TOTAL 0.4 mg/dL (0.2-1); TOT PROT 6.1 g/dl (6.4-8.2)
[2020-06-12 07:46] LABS: BASO % 1.7 % (0-2.0); EOS % 7.9 % (0-4.5); HEMATOCRIT 38.9 % (32.4-45.2); HEMOGLOBIN 12.1 GM/dL (10.7-15.3); LYMPH % 19.5 % (8-40); MCHC 31.2 g/dl (32.0-36.0); MEAN CELL VOLUME 89.8 fl (80-96); MEAN PLT VOLUME 8.4 fl (7.5-11.1); NEUT % 54.9 % (42.8-82.8); PLATELET COUNT 193 K/MM3 (134-434); RBC 4.34 M/mm3 (3.60-5.2); RDW 15.9 % (11.6-15.6); WHITE BLOOD COUNT 4.4 K/mm3 (4.0-10.0)
[2020-06-12] MEDS: HYDROmorphone HCl 2 MG/ML VIAL IVPB PRN ×2 (08:20→15:34)
[2020-06-12] MEDS ORDERED: TORSEMIDE 20 MG TABLET (FP) PO SCH (10:00)
[2020-06-12] MEDS: ENOXAPARIN NA (PORCINE) 40 MG/0.4 ML DISP.SYRIN SQ SCH ×2 (11:44→21:45)
[2020-06-12] MEDS: FERROUS SO4 325 MG TABLET (FP) PO SCH ×2 (11:44→17:20)
[2020-06-12] MEDS: SACUBITRIL/VALSARTAN 24 MG-26 MG TABLET PO SCH ×3 (11:44→21:45)
[2020-06-12] MEDS: PRAMIPEXOLE DIHYDROCHLORIDE 0.25 MG TABLET PO SCH ×2 (11:45→21:45)
[2020-06-12] MEDS: metoPROLOL SUCCINATE 25 MG TAB.SR.24H (FP) PO SCH ×3 (11:45→21:45)
[2020-06-12 12:21] LABS: N-TERMINAL BNP 3235.2 pg/ml (5-125)
[2020-06-12] MEDS: CYANOCOBALAMIN 1,000 MCG TABLET (FP) PO SCH (13:32)
[2020-06-12] MEDS: LEFLUNOMIDE 10 MG TABLET PO SCH (13:32)
[2020-06-12] MEDS: TORSEMIDE 20 MG TABLET (FP) PO SCH (15:05)
[2020-06-12] MEDS ORDERED: diazePAM 5 MG TABLET PO ONE (15:13)
[2020-06-12] MEDS ORDERED: FUROSEMIDE 40 MG/4 ML INJECTABLE VIAL IVPUSH ONE (18:34)
[2020-06-12] MEDS: ZOLPIDEM TARTRATE 5 MG TABLET PO PRN (21:45)
[2020-06-13] MEDS: oxyCODONE HCL 5 MG TABLET PO PRN ×4 (00:11→21:53)
[2020-06-13] MEDS ORDERED: DEXTROSE 5%-WATER 100 ML IVPB ONE ×3 (01:22→16:47)
[2020-06-13] MEDS ORDERED: MEROPENEM 1 GM VIAL (RESTRICTED TO ID) IVPB ONE ×3 (01:22→16:47)
[2020-06-13] MEDS: MEROPENEM 1 GM in DEXTROSE 5%-WATER 100 ML IVPB SCH ×3 (01:25→17:45)
[2020-06-13] MEDS: GABAPENTIN 300 MG CAPSULE PO SCH ×4 (06:58→21:03)
[2020-06-13] MEDS: INSULIN SLIDING SCALE (NOVOLOG) 1 VIAL SQ SCH ×4 (06:58→21:02)
[2020-06-13] MEDS ORDERED: PT OWN MED DRAWER 7, Y5N ONE ×2 (10:23→12:01)
[2020-06-13] MEDS: FERROUS SO4 325 MG TABLET (FP) PO SCH ×2 (11:01→17:45)
[2020-06-13] MEDS: metoPROLOL SUCCINATE 25 MG TAB.SR.24H (FP) PO SCH ×2 (11:01→21:03)
[2020-06-13] MEDS: PRAMIPEXOLE DIHYDROCHLORIDE 0.25 MG TABLET PO SCH ×2 (11:01→21:03)
[2020-06-13] MEDS: CYANOCOBALAMIN 1,000 MCG TABLET (FP) PO SCH (11:01)
[2020-06-13] MEDS: TORSEMIDE 20 MG TABLET (FP) PO SCH (11:01)
[2020-06-13] MEDS: ENOXAPARIN NA (PORCINE) 40 MG/0.4 ML DISP.SYRIN SQ SCH ×2 (11:02→21:03)
[2020-06-13 11:59] LABS: BASO % 1.3 % (0-2.0); EOS % 8.2 % (0-4.5); HEMATOCRIT 36.7 % (32.4-45.2); HEMOGLOBIN 11.7 GM/dL (10.7-15.3); LYMPH % 17.8 % (8-40); MEAN CELL VOLUME 90.6 fl (80-96); MEAN PLT VOLUME 8.8 fl (7.5-11.1); MONO % 15.5 % (3.8-10.2); NEUT % 57.2 % (42.8-82.8); PLATELET COUNT 191 K/MM3 (134-434); RBC 4.05 M/mm3 (3.60-5.2); RDW 15.6 % (11.6-15.6); WHITE BLOOD COUNT 5.3 K/mm3 (4.0-10.0)
[2020-06-13] MEDS: LEFLUNOMIDE 10 MG TABLET PO SCH (12:08)
[2020-06-13] MEDS: SACUBITRIL/VALSARTAN 24 MG-26 MG TABLET PO SCH ×2 (12:08→21:04)
[2020-06-13 12:29] LABS: POTASSIUM 4.3 mmol/L (3.5-5.1)
[2020-06-13 12:30] LABS: CALCIUM 8.5 mg/dL (8.5-10.1)
[2020-06-13 12:31] LABS: ALBUMIN 2.9 g/dl (3.4-5.0); BLOOD UREA NITROGEN 26.3 mg/dL (7-18); MAGNESIUM 2.5 mg/dL (1.8-2.4)
[2020-06-13 12:34] LABS: CREATININE 1.1 mg/dL (0.55-1.3)
[2020-06-13 12:36] LABS: BILIRUBIN,TOTAL 0.3 mg/dL (0.2-1); TOT PROT 6.3 g/dl (6.4-8.2)
[2020-06-13] MEDS: ZOLPIDEM TARTRATE 5 MG TABLET PO PRN (21:53)
[2020-06-14] MEDS ORDERED: MEROPENEM 1 GM VIAL (RESTRICTED TO ID) IVPB ONE ×3 (02:05→17:45)
[2020-06-14] MEDS ORDERED: DEXTROSE 5%-WATER 100 ML IVPB ONE ×3 (02:06→17:45)
[2020-06-14] MEDS: MEROPENEM 1 GM in DEXTROSE 5%-WATER 100 ML IVPB SCH ×3 (02:09→17:50)
[2020-06-14] MEDS: oxyCODONE HCL 5 MG TABLET PO PRN ×3 (03:07→21:12)
[2020-06-14] MEDS: GABAPENTIN 300 MG CAPSULE PO SCH ×3 (06:00→21:10)
[2020-06-14] MEDS: INSULIN SLIDING SCALE (NOVOLOG) 1 VIAL SQ SCH ×4 (06:01→21:07)
[2020-06-14 07:37] LABS: BASO % 1.3 % (0-2.0); EOS % 8.8 % (0-4.5); HEMATOCRIT 38.4 % (32.4-45.2); HEMOGLOBIN 12.2 GM/dL (10.7-15.3); LYMPH % 29.7 % (8-40); MCH 28.5 pg (25.7-33.7); MCHC 31.8 g/dl (32.0-36.0); MEAN CELL VOLUME 89.5 fl (80-96); MEAN PLT VOLUME 8.7 fl (7.5-11.1); MONO % 15.4 % (3.8-10.2); NEUT % 44.8 % (42.8-82.8); PLATELET COUNT 202 K/MM3 (134-434); RBC 4.28 M/mm3 (3.60-5.2); RDW 15.8 % (11.6-15.6); WHITE BLOOD COUNT 4.7 K/mm3 (4.0-10.0)
[2020-06-14 07:50] LABS: POTASSIUM 4.1 mmol/L (3.5-5.1)
[2020-06-14 07:54] LABS: CALCIUM 8.6 mg/dL (8.5-10.1)
[2020-06-14 07:55] LABS: ALBUMIN 2.9 g/dl (3.4-5.0); BLOOD UREA NITROGEN 27.4 mg/dL (7-18); MAGNESIUM 2.4 mg/dL (1.8-2.4)
[2020-06-14 07:58] LABS: CREATININE 1.1 mg/dL (0.55-1.3)
[2020-06-14 07:59] LABS: BILIRUBIN,TOTAL 0.7 mg/dL (0.2-1)
[2020-06-14 08:00] LABS: TOT PROT 6.5 g/dl (6.4-8.2)
[2020-06-14] MEDS: TORSEMIDE 20 MG TABLET (FP) PO SCH (09:35)
[2020-06-14] MEDS: metoPROLOL SUCCINATE 25 MG TAB.SR.24H (FP) PO SCH ×2 (09:35→21:11)
[2020-06-14] MEDS: CYANOCOBALAMIN 1,000 MCG TABLET (FP) PO SCH (09:35)
[2020-06-14] MEDS: ENOXAPARIN NA (PORCINE) 40 MG/0.4 ML DISP.SYRIN SQ SCH ×2 (09:36→21:08)
[2020-06-14] MEDS: PRAMIPEXOLE DIHYDROCHLORIDE 0.25 MG TABLET PO SCH ×2 (09:36→21:11)
[2020-06-14] MEDS: LEFLUNOMIDE 10 MG TABLET PO SCH (09:37)
[2020-06-14] MEDS: SACUBITRIL/VALSARTAN 24 MG-26 MG TABLET PO SCH ×2 (09:37→21:16)
[2020-06-14] MEDS: FERROUS SO4 325 MG TABLET (FP) PO SCH ×2 (09:46→17:58)
[2020-06-14] MEDS: POLYETHYLENE GLYCOL 3350 119 GM BTL PO SCH (12:52)
[2020-06-14] MEDS ORDERED: FUROSEMIDE 40 MG/4 ML INJECTABLE VIAL IVPUSH ONE (15:00)
[2020-06-14] MEDS: DOCUSATE SODIUM 100 MG CAPSULE (FP) PO SCH (21:10)
[2020-06-14] MEDS: ZOLPIDEM TARTRATE 5 MG TABLET PO PRN (21:11)
[2020-06-14] MEDS ORDERED: PT OWN MED DRAWER 7, Y5N ONE (21:15)
[2020-06-14] MEDS ORDERED: SENNOSIDES 8.6MG TABLET (FP) PO PRN (22:00)
[2020-06-15] MEDS ORDERED: MEROPENEM 1 GM VIAL (RESTRICTED TO ID) IVPB ONE ×3 (01:01→17:57)
[2020-06-15] MEDS ORDERED: DEXTROSE 5%-WATER 100 ML IVPB ONE ×3 (01:02→17:57)
[2020-06-15] MEDS: MEROPENEM 1 GM in DEXTROSE 5%-WATER 100 ML IVPB SCH ×3 (01:07→17:59)
[2020-06-15] MEDS: oxyCODONE HCL 5 MG TABLET PO PRN ×5 (01:22→20:18)
[2020-06-15] MEDS: GABAPENTIN 300 MG CAPSULE PO SCH ×3 (05:46→21:11)
[2020-06-15] MEDS: INSULIN SLIDING SCALE (NOVOLOG) 1 VIAL SQ SCH ×4 (06:00→21:11)
[2020-06-15 06:55] LABS: BASO % 1.4 % (0-2.0); EOS % 10.1 % (0-4.5); HEMATOCRIT 35.6 % (32.4-45.2); HEMOGLOBIN 11.6 GM/dL (10.7-15.3); LYMPH % 30.8 % (8-40); MCHC 32.6 g/dl (32.0-36.0); MEAN PLT VOLUME 8.1 fl (7.5-11.1); MONO % 15.6 % (3.8-10.2); NEUT % 42.1 % (42.8-82.8); PLATELET COUNT 179 K/MM3 (134-434); RBC 4.01 M/mm3 (3.60-5.2); RDW 15.4 % (11.6-15.6); WHITE BLOOD COUNT 4.1 K/mm3 (4.0-10.0)
[2020-06-15 07:12] LABS: INR 1.07 (0.83-1.09); PROTHROMBIN TIME (PATIENT) 13.1 SEC (9.7-13.0)
[2020-06-15 07:32] LABS: ALBUMIN 2.8 g/dl (3.4-5.0); CALCIUM 8.6 mg/dL (8.5-10.1)
[2020-06-15 07:33] LABS: MAGNESIUM 2.4 mg/dL (1.8-2.4)
[2020-06-15 07:36] LABS: CREATININE 0.8 mg/dL (0.55-1.3)
[2020-06-15 07:37] LABS: BILIRUBIN,TOTAL 0.4 mg/dL (0.2-1); TOT PROT 6.4 g/dl (6.4-8.2)
[2020-06-15] MEDS: LEFLUNOMIDE 10 MG TABLET PO SCH (09:19)
[2020-06-15] MEDS: ENOXAPARIN NA (PORCINE) 40 MG/0.4 ML DISP.SYRIN SQ SCH (09:20)
[2020-06-15] MEDS: SACUBITRIL/VALSARTAN 24 MG-26 MG TABLET PO SCH ×2 (09:20→21:10)
[2020-06-15] MEDS: TORSEMIDE 20 MG TABLET (FP) PO SCH (09:20)
[2020-06-15] MEDS: PRAMIPEXOLE DIHYDROCHLORIDE 0.25 MG TABLET PO SCH ×2 (09:20→21:11)
[2020-06-15] MEDS: CYANOCOBALAMIN 1,000 MCG TABLET (FP) PO SCH (09:21)
[2020-06-15] MEDS: FERROUS SO4 325 MG TABLET (FP) PO SCH ×2 (09:25→17:56)
[2020-06-15] MEDS: POLYETHYLENE GLYCOL 3350 119 GM BTL PO SCH (10:00)
[2020-06-15] MEDS: metoPROLOL SUCCINATE 25 MG TAB.SR.24H (FP) PO SCH ×2 (12:00→21:11)
[2020-06-15] MEDS ORDERED: FUROSEMIDE 40 MG/4 ML INJECTABLE VIAL IVPUSH ONE (14:00)
[2020-06-15] MEDS ORDERED: PT OWN MED DRAWER 7, Y5N ONE ×2 (18:37→20:59)
[2020-06-15] MEDS: DOCUSATE SODIUM 100 MG CAPSULE (FP) PO SCH (21:17)
[2020-06-15] MEDS: ZOLPIDEM TARTRATE 5 MG TABLET PO PRN (22:59)
[2020-06-16] MEDS ORDERED: MEROPENEM 1 GM VIAL (RESTRICTED TO ID) IVPB ONE ×3 (01:06→17:29)
[2020-06-16] MEDS ORDERED: DEXTROSE 5%-WATER 100 ML IVPB ONE ×3 (01:06→17:29)
[2020-06-16] MEDS: MEROPENEM 1 GM in DEXTROSE 5%-WATER 100 ML IVPB SCH ×3 (01:14→17:30)
[2020-06-16] MEDS: oxyCODONE HCL 5 MG TABLET PO PRN ×4 (01:36→19:53)
[2020-06-16] MEDS: GABAPENTIN 300 MG CAPSULE PO SCH ×3 (05:59→22:09)
[2020-06-16] MEDS: INSULIN SLIDING SCALE (NOVOLOG) 1 VIAL SQ SCH ×4 (06:12→22:10)
[2020-06-16 07:16] LABS: BASO % 1.4 % (0-2.0); EOS % 9.9 % (0-4.5); HEMATOCRIT 38.1 % (32.4-45.2); HEMOGLOBIN 12.2 GM/dL (10.7-15.3); LYMPH % 32.8 % (8-40); MCH 28.6 pg (25.7-33.7); MEAN CELL VOLUME 89.3 fl (80-96); MEAN PLT VOLUME 8.3 fl (7.5-11.1); MONO % 14.9 % (3.8-10.2); PLATELET COUNT 194 K/MM3 (134-434); RBC 4.27 M/mm3 (3.60-5.2); RDW 15.7 % (11.6-15.6); WHITE BLOOD COUNT 4.4 K/mm3 (4.0-10.0)
[2020-06-16 07:24] LABS: INR 0.97 (0.83-1.09); PROTHROMBIN TIME (PATIENT) 11.8 SEC (9.7-13.0)
[2020-06-16 07:53] LABS: POTASSIUM 4.3 mmol/L (3.5-5.1)
[2020-06-16 08:03] LABS: ALBUMIN 2.9 g/dl (3.4-5.0); BLOOD UREA NITROGEN 19.8 mg/dL (7-18); CALCIUM 8.7 mg/dL (8.5-10.1); MAGNESIUM 2.4 mg/dL (1.8-2.4)
[2020-06-16 08:08] LABS: BILIRUBIN,TOTAL 0.4 mg/dL (0.2-1); TOT PROT 6.7 g/dl (6.4-8.2)
[2020-06-16 08:34] LABS: ACTIVATED PTT 20.2 SECONDS (25.2-36.5)
[2020-06-16] MEDS: FERROUS SO4 325 MG TABLET (FP) PO SCH ×3 (08:52→16:47)
[2020-06-16] MEDS: SACUBITRIL/VALSARTAN 24 MG-26 MG TABLET PO SCH ×2 (09:45→22:09)
[2020-06-16] MEDS: TORSEMIDE 20 MG TABLET (FP) PO SCH (09:45)
[2020-06-16] MEDS: CYANOCOBALAMIN 1,000 MCG TABLET (FP) PO SCH (09:46)
[2020-06-16] MEDS: PRAMIPEXOLE DIHYDROCHLORIDE 0.25 MG TABLET PO SCH ×2 (09:46→22:09)
[2020-06-16] MEDS: metoPROLOL SUCCINATE 25 MG TAB.SR.24H (FP) PO SCH ×2 (09:46→22:09)
[2020-06-16] MEDS: LEFLUNOMIDE 10 MG TABLET PO SCH (09:48)
[2020-06-16] MEDS: POLYETHYLENE GLYCOL 3350 119 GM BTL PO SCH (09:49)
[2020-06-16] MEDS: ENOXAPARIN NA (PORCINE) 40 MG/0.4 ML DISP.SYRIN SQ SCH ×2 (11:04→22:04)
[2020-06-16] MEDS: DOCUSATE SODIUM 100 MG CAPSULE (FP) PO SCH (22:04)
[2020-06-16] MEDS: ZOLPIDEM TARTRATE 5 MG TABLET PO PRN (22:11)
[2020-06-17] MEDS ORDERED: MEROPENEM 1 GM VIAL (RESTRICTED TO ID) IVPB ONE ×3 (01:14→17:03)
[2020-06-17] MEDS ORDERED: DEXTROSE 5%-WATER 100 ML IVPB ONE ×3 (01:14→17:03)
[2020-06-17] MEDS: MEROPENEM 1 GM in DEXTROSE 5%-WATER 100 ML IVPB SCH ×3 (01:37→17:35)
[2020-06-17] MEDS: INSULIN SLIDING SCALE (NOVOLOG) 1 VIAL SQ SCH ×4 (06:44→22:08)
[2020-06-17] MEDS: GABAPENTIN 300 MG CAPSULE PO SCH ×3 (06:44→22:08)
[2020-06-17] MEDS: FERROUS SO4 325 MG TABLET (FP) PO SCH ×2 (07:40→16:31)
[2020-06-17 09:54] LABS: BASO % 0.8 % (0-2.0); EOS % 8.7 % (0-4.5); HEMATOCRIT 39.8 % (32.4-45.2); HEMOGLOBIN 12.9 GM/dL (10.7-15.3); LYMPH % 19.2 % (8-40); MCH 29.1 pg (25.7-33.7); MCHC 32.5 g/dl (32.0-36.0); MEAN CELL VOLUME 89.7 fl (80-96); MEAN PLT VOLUME 8.7 fl (7.5-11.1); MONO % 11.5 % (3.8-10.2); NEUT % 59.8 % (42.8-82.8); PLATELET COUNT 189 K/MM3 (134-434); RBC 4.44 M/mm3 (3.60-5.2); RDW 16.2 % (11.6-15.6); WHITE BLOOD COUNT 5.3 K/mm3 (4.0-10.0)
[2020-06-17] MEDS: metoPROLOL SUCCINATE 25 MG TAB.SR.24H (FP) PO SCH ×2 (09:56→22:08)
[2020-06-17] MEDS: ENOXAPARIN NA (PORCINE) 40 MG/0.4 ML DISP.SYRIN SQ SCH (09:56)
[2020-06-17] MEDS: SACUBITRIL/VALSARTAN 24 MG-26 MG TABLET PO SCH ×2 (09:57→22:07)
[2020-06-17] MEDS: PRAMIPEXOLE DIHYDROCHLORIDE 0.25 MG TABLET PO SCH ×2 (09:57→22:08)
[2020-06-17] MEDS: LEFLUNOMIDE 10 MG TABLET PO SCH (09:57)
[2020-06-17] MEDS: CYANOCOBALAMIN 1,000 MCG TABLET (FP) PO SCH (09:57)
[2020-06-17] MEDS: TORSEMIDE 20 MG TABLET (FP) PO SCH (09:57)
[2020-06-17] MEDS: POLYETHYLENE GLYCOL 3350 119 GM BTL PO SCH (09:58)
[2020-06-17 10:23] LABS: POTASSIUM 4.8 mmol/L (3.5-5.1)
[2020-06-17 10:26] LABS: ALBUMIN 2.6 g/dl (3.4-5.0); BLOOD UREA NITROGEN 30.2 mg/dL (7-18); CALCIUM 8.6 mg/dL (8.5-10.1); MAGNESIUM 2.4 mg/dL (1.8-2.4)
[2020-06-17 10:29] LABS: CREATININE 1.1 mg/dL (0.55-1.3)
[2020-06-17 10:31] LABS: BILIRUBIN,TOTAL 0.4 mg/dL (0.2-1); TOT PROT 6.1 g/dl (6.4-8.2)
[2020-06-17] MEDS: oxyCODONE HCL 5 MG TABLET PO PRN ×2 (13:02→22:08)
[2020-06-17] MEDS ORDERED: INSULIN (NOVOLOG) ASPART 100 UNITS/ML 10ML VIAL ONE (21:35)
[2020-06-17] MEDS: DOCUSATE SODIUM 100 MG CAPSULE (FP) PO SCH (22:07)
[2020-06-17] MEDS: ZOLPIDEM TARTRATE 5 MG TABLET PO PRN (22:08)
[2020-06-18] MEDS ORDERED: MEROPENEM 1 GM VIAL (RESTRICTED TO ID) IVPB ONE (02:12)
[2020-06-18] MEDS ORDERED: DEXTROSE 5%-WATER 100 ML IVPB ONE (02:12)
[2020-06-18] MEDS: MEROPENEM 1 GM in DEXTROSE 5%-WATER 100 ML IVPB SCH ×3 (02:50→23:27)
[2020-06-18] MEDS: INSULIN SLIDING SCALE (NOVOLOG) 1 VIAL SQ SCH ×4 (06:39→22:27)
[2020-06-18] MEDS: GABAPENTIN 300 MG CAPSULE PO SCH ×3 (06:39→22:14)
[2020-06-18 07:28] LABS: BASO % 1.2 % (0-2.0); EOS % 10.4 % (0-4.5); HEMATOCRIT 38.4 % (32.4-45.2); HEMOGLOBIN 12.4 GM/dL (10.7-15.3); LYMPH % 28.4 % (8-40); MCH 29.1 pg (25.7-33.7); MCHC 32.4 g/dl (32.0-36.0); MEAN CELL VOLUME 89.8 fl (80-96); MEAN PLT VOLUME 8.9 fl (7.5-11.1); MONO % 15.1 % (3.8-10.2); NEUT % 44.9 % (42.8-82.8); PLATELET COUNT 167 K/MM3 (134-434); RBC 4.27 M/mm3 (3.60-5.2); WHITE BLOOD COUNT 4.2 K/mm3 (4.0-10.0)
[2020-06-18 07:39] LABS: POTASSIUM 4.2 mmol/L (3.5-5.1)
[2020-06-18 07:47] LABS: ALBUMIN 2.5 g/dl (3.4-5.0); BLOOD UREA NITROGEN 31.7 mg/dL (7-18); CALCIUM 8.9 mg/dL (8.5-10.1); MAGNESIUM 2.3 mg/dL (1.8-2.4)
[2020-06-18 07:50] LABS: CREATININE 0.9 mg/dL (0.55-1.3)
[2020-06-18 07:52] LABS: BILIRUBIN,TOTAL 0.9 mg/dL (0.2-1); TOT PROT 5.9 g/dl (6.4-8.2)
[2020-06-18] MEDS ORDERED: PT OWN MED DRAWER 7, Y5N ONE ×2 (07:54→21:14)
[2020-06-18] MEDS: PRAMIPEXOLE DIHYDROCHLORIDE 0.25 MG TABLET PO SCH ×2 (09:05→22:15)
[2020-06-18] MEDS: metoPROLOL SUCCINATE 25 MG TAB.SR.24H (FP) PO SCH (09:05)
[2020-06-18] MEDS: TORSEMIDE 20 MG TABLET (FP) PO SCH (09:05)
[2020-06-18] MEDS: CYANOCOBALAMIN 1,000 MCG TABLET (FP) PO SCH (09:05)
[2020-06-18] MEDS: FERROUS SO4 325 MG TABLET (FP) PO SCH (09:05)
[2020-06-18] MEDS: LEFLUNOMIDE 10 MG TABLET PO SCH (09:06)
[2020-06-18] MEDS: POLYETHYLENE GLYCOL 3350 119 GM BTL PO SCH (09:06)
[2020-06-18] MEDS: SACUBITRIL/VALSARTAN 24 MG-26 MG TABLET PO SCH (09:06)
[2020-06-18] MEDS ORDERED: PROPOFOL 20 ML ONE ×4 (15:18)
[2020-06-18] MEDS ORDERED: ROCURONIUM BROMIDE 50 MG/5 ML SYRINGE ONE (15:37)
[2020-06-18] MEDS ORDERED: BUPIVACAINE LIPOSOME/PF (EXPAREL) 266 MG/20 ML VIAL ONE (15:37)
[2020-06-18] MEDS ORDERED: BUPIVACAINE HCL/PF 0.25% (2.5MG/ML) 10 ML VIAL ONE (15:37)
[2020-06-18] MEDS ORDERED: HEPARIN NA (PORCINE) 5,000 UNITS/ML 1ML VIAL ONE (15:37)
[2020-06-18] MEDS ORDERED: THROMBIN (BOVINE) 5,000 UNIT VIAL TP ONE (15:38)
[2020-06-18] MEDS ORDERED: fentaNYL CITRATE 250 MCG/5 ML VIAL ONE (16:42)
[2020-06-18] MEDS ORDERED: SUCCINYLCHOLINE CHLORIDE 200 MG/10 ML SYRINGE ONE (16:43)
[2020-06-18] MEDS ORDERED: MIDAZOLAM HCL 2 MG/2 ML SINGLE DOSE VIAL ONE ×5 (16:43)
[2020-06-18] MEDS ORDERED: ETOMIDATE 20 MG/10 ML AMPUL IVPUSH ONE (17:14)
[2020-06-18] MEDS ORDERED: SENNOSIDES 8.6MG TABLET (FP) PO PRN (18:11)
[2020-06-18] MEDS ORDERED: ALBUTEROL SO4 2.5/IPRATROPIUM 0.5 INH SOL 3 ML VIAL.NEB. NEB PRN (18:11)
[2020-06-18] MEDS ORDERED: LACTATED RINGERS SOLUTION 1,000 ML IV SCH (18:30)
[2020-06-18 19:00] LABS: ARTERIAL BLD GAS O2 SATURATION 99.3 mmHg (95-98); ARTERIAL BLOOD GAS BASE EXCESS 6.4 mmol/L (-2-2); ARTERIAL BLOOD GAS PO2 177.1 mmHg (80-100); ARTERIAL BLOOD GAS pH 7.492 (7.350-7.450)
[2020-06-18 19:43] LABS: CHLORIDE 104 mmol/L (98-107); POTASSIUM 4.5 mmol/L (3.5-5.1); SODIUM 139 mmol/L (136-145)
[2020-06-18 19:48] LABS: ALBUMIN 2.5 g/dl (3.4-5.0); ANION GAP 6 MMOL/L (8-16); BLOOD UREA NITROGEN 27.8 mg/dL (7-18); CALCIUM 8.6 mg/dL (8.5-10.1); CO2 29 mmol/L (21-32)
[2020-06-18 19:49] LABS: GLUCOSE,RANDOM 107 mg/dL (74-106)
[2020-06-18 19:50] LABS: BILIRUBIN,TOTAL 0.4 mg/dL (0.2-1); SGOT/AST 15 U/L (15-37); SGPT/ALT 11 U/L (13-61)
[2020-06-18 19:51] LABS: CREATININE 0.9 mg/dL (0.55-1.3)
[2020-06-18 19:52] LABS: ALK PHOS 104 U/L (45-117); TOT PROT 5.8 g/dl (6.4-8.2)
[2020-06-18] MEDS: DOCUSATE SODIUM 100 MG CAPSULE (FP) PO SCH (22:13)
[2020-06-18] MEDS: ENOXAPARIN NA (PORCINE) 40 MG/0.4 ML DISP.SYRIN SQ SCH (22:13)
[2020-06-19] MEDS: metoPROLOL SUCCINATE 25 MG TAB.SR.24H (FP) PO SCH ×3 (00:02→23:34)
[2020-06-19] MEDS: SACUBITRIL/VALSARTAN 24 MG-26 MG TABLET PO SCH ×3 (00:02→23:33)
[2020-06-19] MEDS: ZOLPIDEM TARTRATE 5 MG TABLET PO PRN ×2 (00:03→23:34)
[2020-06-19] MEDS: MEROPENEM 1 GM in DEXTROSE 5%-WATER 100 ML IVPB SCH ×3 (02:45→17:25)
[2020-06-19] MEDS ORDERED: DEXTROSE 5%-WATER 100 ML IVPB ONE ×3 (03:05→16:47)
[2020-06-19] MEDS ORDERED: MEROPENEM 1 GM VIAL (RESTRICTED TO ID) IVPB ONE ×3 (03:05→16:47)
[2020-06-19] MEDS: GABAPENTIN 300 MG CAPSULE PO SCH ×3 (06:38→23:34)
[2020-06-19] MEDS: INSULIN SLIDING SCALE (NOVOLOG) 1 VIAL SQ SCH ×4 (06:39→23:46)
[2020-06-19] MEDS: LEFLUNOMIDE 10 MG TABLET PO SCH (09:21)
[2020-06-19] MEDS: PRAMIPEXOLE DIHYDROCHLORIDE 0.25 MG TABLET PO SCH ×2 (09:22→23:33)
[2020-06-19] MEDS: CYANOCOBALAMIN 1,000 MCG TABLET (FP) PO SCH (09:22)
[2020-06-19] MEDS: FERROUS SO4 325 MG TABLET (FP) PO SCH ×3 (09:22→17:26)
[2020-06-19] MEDS: POLYETHYLENE GLYCOL 3350 119 GM BTL PO SCH (09:23)
[2020-06-19] MEDS: ENOXAPARIN NA (PORCINE) 40 MG/0.4 ML DISP.SYRIN SQ SCH ×2 (09:24→23:34)
[2020-06-19] MEDS ORDERED: metoPROLOL SUCCINATE 25 MG TAB.SR.24H (FP) PO SCH (09:36)
[2020-06-19] MEDS ORDERED: LORazepam 0.5 MG TABLET PO PRN (09:57)
[2020-06-19] MEDS ORDERED: TORSEMIDE 20 MG TABLET (FP) PO SCH (10:00)
[2020-06-19] MEDS: TORSEMIDE 20 MG TABLET (FP) PO SCH (10:33)
[2020-06-19] MEDS: oxyCODONE HCL 5 MG TABLET PO PRN ×2 (11:48→17:30)
[2020-06-19 11:52] LABS: BASO % 1.8 % (0-2.0); EOS % 10.4 % (0-4.5); HEMATOCRIT 37.5 % (32.4-45.2); HEMOGLOBIN 12.1 GM/dL (10.7-15.3); LYMPH % 20.8 % (8-40); MCH 28.7 pg (25.7-33.7); MCHC 32.2 g/dl (32.0-36.0); MEAN CELL VOLUME 89.3 fl (80-96); MONO % 12.7 % (3.8-10.2); NEUT % 54.3 % (42.8-82.8); PLATELET COUNT 189 K/MM3 (134-434); RDW 16.2 % (11.6-15.6); WHITE BLOOD COUNT 4.4 K/mm3 (4.0-10.0)
[2020-06-19 11:57] LABS: POTASSIUM 4.6 mmol/L (3.5-5.1)
[2020-06-19 12:00] LABS: CALCIUM 8.7 mg/dL (8.5-10.1)
[2020-06-19 12:01] LABS: ALBUMIN 2.8 g/dl (3.4-5.0); MAGNESIUM 2.5 mg/dL (1.8-2.4)
[2020-06-19 12:05] LABS: BILIRUBIN,TOTAL 0.4 mg/dL (0.2-1)
[2020-06-19 12:06] LABS: TOT PROT 6.3 g/dl (6.4-8.2)
[2020-06-19] MEDS: DOCUSATE SODIUM 100 MG CAPSULE (FP) PO SCH (23:33)
[2020-06-20] MEDS ORDERED: MEROPENEM 1 GM VIAL (RESTRICTED TO ID) IVPB ONE ×3 (01:53→18:06)
[2020-06-20] MEDS ORDERED: DEXTROSE 5%-WATER 100 ML IVPB ONE ×3 (01:53→18:06)
[2020-06-20] MEDS: MEROPENEM 1 GM in DEXTROSE 5%-WATER 100 ML IVPB SCH ×3 (02:35→18:08)
[2020-06-20] MEDS: INSULIN SLIDING SCALE (NOVOLOG) 1 VIAL SQ SCH ×4 (06:02→22:03)
[2020-06-20] MEDS: GABAPENTIN 300 MG CAPSULE PO SCH ×3 (06:29→22:03)
[2020-06-20] MEDS: metoPROLOL SUCCINATE 25 MG TAB.SR.24H (FP) PO SCH ×2 (09:56→22:03)
[2020-06-20] MEDS: FERROUS SO4 325 MG TABLET (FP) PO SCH ×2 (09:56→18:08)
[2020-06-20] MEDS: TORSEMIDE 20 MG TABLET (FP) PO SCH (09:56)
[2020-06-20] MEDS: CYANOCOBALAMIN 1,000 MCG TABLET (FP) PO SCH (09:56)
[2020-06-20] MEDS: oxyCODONE HCL 5 MG TABLET PO PRN ×4 (09:57→22:04)
[2020-06-20] MEDS: PRAMIPEXOLE DIHYDROCHLORIDE 0.25 MG TABLET PO SCH ×2 (09:58→22:03)
[2020-06-20] MEDS: ENOXAPARIN NA (PORCINE) 40 MG/0.4 ML DISP.SYRIN SQ SCH ×2 (10:00→22:03)
[2020-06-20] MEDS: POLYETHYLENE GLYCOL 3350 119 GM BTL PO SCH (10:00)
[2020-06-20] MEDS ORDERED: PT OWN MED DRAWER 7, Y5N ONE (10:12)
[2020-06-20] MEDS: SACUBITRIL/VALSARTAN 24 MG-26 MG TABLET PO SCH ×2 (10:13→22:05)
[2020-06-20] MEDS: LEFLUNOMIDE 10 MG TABLET PO SCH (10:13)
[2020-06-20 11:57] LABS: BASO % 2.1 % (0-2.0); EOS % 8.3 % (0-4.5); HEMATOCRIT 37.3 % (32.4-45.2); HEMOGLOBIN 11.8 GM/dL (10.7-15.3); LYMPH % 18.4 % (8-40); MCH 28.5 pg (25.7-33.7); MCHC 31.7 g/dl (32.0-36.0); MEAN CELL VOLUME 89.7 fl (80-96); MONO % 11.7 % (3.8-10.2); NEUT % 59.5 % (42.8-82.8); PLATELET COUNT 184 K/MM3 (134-434); RBC 4.16 M/mm3 (3.60-5.2); RDW 16.1 % (11.6-15.6); WHITE BLOOD COUNT 6.1 K/mm3 (4.0-10.0)
[2020-06-20 12:25] LABS: POTASSIUM 4.7 mmol/L (3.5-5.1)
[2020-06-20 12:27] LABS: ALBUMIN 2.8 g/dl (3.4-5.0); BLOOD UREA NITROGEN 28.4 mg/dL (7-18); CALCIUM 8.7 mg/dL (8.5-10.1); MAGNESIUM 2.8 mg/dL (1.8-2.4)
[2020-06-20 12:32] LABS: BILIRUBIN,TOTAL 0.4 mg/dL (0.2-1); TOT PROT 6.4 g/dl (6.4-8.2)
[2020-06-20] MEDS ORDERED: LACTATED RINGERS SOLUTION 1,000 ML IV SCH (17:00)
[2020-06-20] MEDS: ZOLPIDEM TARTRATE 5 MG TABLET PO PRN (22:03)
[2020-06-20] MEDS: DOCUSATE SODIUM 100 MG CAPSULE (FP) PO SCH (22:04)
[2020-06-21] MEDS ORDERED: MEROPENEM 1 GM VIAL (RESTRICTED TO ID) IVPB ONE ×3 (01:26→16:36)
[2020-06-21] MEDS: BACLOFEN 10 MG TABLET (FP) PO PRN (01:43)
[2020-06-21] MEDS: MEROPENEM 1 GM in DEXTROSE 5%-WATER 100 ML IVPB SCH ×3 (01:43→17:02)
[2020-06-21] MEDS: INSULIN SLIDING SCALE (NOVOLOG) 1 VIAL SQ SCH ×4 (06:31→22:08)
[2020-06-21] MEDS: oxyCODONE HCL 5 MG TABLET PO PRN ×4 (06:36→22:22)
[2020-06-21] MEDS: GABAPENTIN 300 MG CAPSULE PO SCH ×3 (06:37→21:42)
[2020-06-21 06:45] LABS: BASO % 1.9 % (0-2.0); EOS % 10.1 % (0-4.5); HEMATOCRIT 36.1 % (32.4-45.2); HEMOGLOBIN 11.5 GM/dL (10.7-15.3); LYMPH % 31.7 % (8-40); MCH 28.8 pg (25.7-33.7); MEAN CELL VOLUME 90.2 fl (80-96); MONO % 17.3 % (3.8-10.2); PLATELET COUNT 157 K/MM3 (134-434); RDW 16.5 % (11.6-15.6); WHITE BLOOD COUNT 4.7 K/mm3 (4.0-10.0)
[2020-06-21 07:00] LABS: POTASSIUM 4.9 mmol/L (3.5-5.1)
[2020-06-21 07:02] LABS: ALBUMIN 2.6 g/dl (3.4-5.0); CALCIUM 8.5 mg/dL (8.5-10.1)
[2020-06-21 07:03] LABS: MAGNESIUM 2.5 mg/dL (1.8-2.4)
[2020-06-21 07:07] LABS: BILIRUBIN,TOTAL 0.3 mg/dL (0.2-1); TOT PROT 6.2 g/dl (6.4-8.2)
[2020-06-21] MEDS ORDERED: PT OWN MED DRAWER 7, Y5N ONE ×2 (09:30→10:19)
[2020-06-21] MEDS ORDERED: DEXTROSE 5%-WATER 100 ML IVPB ONE ×2 (09:30→16:37)
[2020-06-21] MEDS: ENOXAPARIN NA (PORCINE) 40 MG/0.4 ML DISP.SYRIN SQ SCH ×2 (09:37→21:42)
[2020-06-21] MEDS: POLYETHYLENE GLYCOL 3350 119 GM BTL PO SCH (09:37)
[2020-06-21] MEDS: LEFLUNOMIDE 10 MG TABLET PO SCH (09:38)
[2020-06-21] MEDS: metoPROLOL SUCCINATE 25 MG TAB.SR.24H (FP) PO SCH ×2 (09:38→21:42)
[2020-06-21] MEDS: SACUBITRIL/VALSARTAN 24 MG-26 MG TABLET PO SCH ×2 (09:38→21:42)
[2020-06-21] MEDS: FERROUS SO4 325 MG TABLET (FP) PO SCH ×2 (09:38→16:45)
[2020-06-21] MEDS: PRAMIPEXOLE DIHYDROCHLORIDE 0.25 MG TABLET PO SCH ×2 (09:39→21:42)
[2020-06-21] MEDS: CYANOCOBALAMIN 1,000 MCG TABLET (FP) PO SCH (09:39)
[2020-06-21] MEDS: TORSEMIDE 20 MG TABLET (FP) PO SCH (09:39)
[2020-06-21 12:41] VITALS: BMI 30.8
[2020-06-21] MEDS: DOCUSATE SODIUM 100 MG CAPSULE (FP) PO SCH (21:41)
[2020-06-21] MEDS: ZOLPIDEM TARTRATE 5 MG TABLET PO PRN (22:23)
[2020-06-22] MEDS ORDERED: DEXTROSE 5%-WATER 100 ML IVPB ONE ×3 (00:58→16:59)
[2020-06-22] MEDS ORDERED: MEROPENEM 1 GM VIAL (RESTRICTED TO ID) IVPB ONE ×3 (00:58→16:58)
[2020-06-22] MEDS: MEROPENEM 1 GM in DEXTROSE 5%-WATER 100 ML IVPB SCH ×3 (01:15→17:02)
[2020-06-22] MEDS: INSULIN SLIDING SCALE (NOVOLOG) 1 VIAL SQ SCH ×4 (06:18→22:00)
[2020-06-22] MEDS: GABAPENTIN 300 MG CAPSULE PO SCH ×3 (06:19→21:45)
[2020-06-22 08:50] LABS: BASO % 2.1 % (0-2.0); EOS % 10.1 % (0-4.5); HEMATOCRIT 34.9 % (32.4-45.2); HEMOGLOBIN 11.4 GM/dL (10.7-15.3); LYMPH % 24.4 % (8-40); MCH 29.4 pg (25.7-33.7); MCHC 32.6 g/dl (32.0-36.0); MEAN CELL VOLUME 90.3 fl (80-96); MEAN PLT VOLUME 8.9 fl (7.5-11.1); MONO % 12.4 % (3.8-10.2); PLATELET COUNT 151 K/MM3 (134-434); RBC 3.87 M/mm3 (3.60-5.2); WHITE BLOOD COUNT 4.4 K/mm3 (4.0-10.0)
[2020-06-22 08:57] LABS: INR 1.01 (0.83-1.09); PROTHROMBIN TIME (PATIENT) 12.4 SEC (9.7-13.0)
[2020-06-22 09:08] LABS: POTASSIUM 4.8 mmol/L (3.5-5.1)
[2020-06-22 09:16] LABS: ALBUMIN 2.5 g/dl (3.4-5.0); BLOOD UREA NITROGEN 26.1 mg/dL (7-18); CALCIUM 8.3 mg/dL (8.5-10.1); MAGNESIUM 2.6 mg/dL (1.8-2.4)
[2020-06-22 09:17] LABS: BILIRUBIN,TOTAL 0.5 mg/dL (0.2-1); TOT PROT 5.8 g/dl (6.4-8.2)
[2020-06-22 09:19] LABS: CREATININE 0.9 mg/dL (0.55-1.3)
[2020-06-22] MEDS ORDERED: PT OWN MED DRAWER 7, Y5N ONE ×3 (09:49→21:23)
[2020-06-22] MEDS: CYANOCOBALAMIN 1,000 MCG TABLET (FP) PO SCH (09:55)
[2020-06-22] MEDS: metoPROLOL SUCCINATE 25 MG TAB.SR.24H (FP) PO SCH ×2 (09:55→21:45)
[2020-06-22] MEDS: TORSEMIDE 20 MG TABLET (FP) PO SCH (09:56)
[2020-06-22] MEDS: oxyCODONE HCL 5 MG TABLET PO PRN ×3 (09:56→22:39)
[2020-06-22] MEDS: PRAMIPEXOLE DIHYDROCHLORIDE 0.25 MG TABLET PO SCH ×2 (09:56→21:45)
[2020-06-22] MEDS: LEFLUNOMIDE 10 MG TABLET PO SCH (09:59)
[2020-06-22] MEDS: POLYETHYLENE GLYCOL 3350 119 GM BTL PO SCH (09:59)
[2020-06-22] MEDS: SACUBITRIL/VALSARTAN 24 MG-26 MG TABLET PO SCH ×2 (09:59→21:44)
[2020-06-22] MEDS: ENOXAPARIN NA (PORCINE) 40 MG/0.4 ML DISP.SYRIN SQ SCH (10:01)
[2020-06-22] MEDS: FERROUS SO4 325 MG TABLET (FP) PO SCH ×2 (10:13→16:55)
[2020-06-22] MEDS: DOCUSATE SODIUM 100 MG CAPSULE (FP) PO SCH (21:44)
[2020-06-22] MEDS: ZOLPIDEM TARTRATE 5 MG TABLET PO PRN (22:39)
[2020-06-23] MEDS ORDERED: MEROPENEM 1 GM VIAL (RESTRICTED TO ID) IVPB ONE ×3 (00:25→16:44)
[2020-06-23] MEDS ORDERED: DEXTROSE 5%-WATER 100 ML IVPB ONE ×3 (00:26→16:44)
[2020-06-23] MEDS: MEROPENEM 1 GM in DEXTROSE 5%-WATER 100 ML IVPB SCH ×3 (01:06→17:41)
[2020-06-23] MEDS: GABAPENTIN 300 MG CAPSULE PO SCH ×3 (06:01→21:35)
[2020-06-23] MEDS: INSULIN SLIDING SCALE (NOVOLOG) 1 VIAL SQ SCH ×3 (06:44→21:41)
[2020-06-23] MEDS: FERROUS SO4 325 MG TABLET (FP) PO SCH ×3 (08:28→17:41)
[2020-06-23] MEDS: metoPROLOL SUCCINATE 25 MG TAB.SR.24H (FP) PO SCH ×2 (10:24→21:30)
[2020-06-23] MEDS ORDERED: PT OWN MED DRAWER 7, Y5N ONE ×2 (10:25→21:36)
[2020-06-23] MEDS: LEFLUNOMIDE 10 MG TABLET PO SCH (10:34)
[2020-06-23] MEDS: TORSEMIDE 20 MG TABLET (FP) PO SCH (10:34)
[2020-06-23] MEDS: PRAMIPEXOLE DIHYDROCHLORIDE 0.25 MG TABLET PO SCH ×2 (10:35→21:37)
[2020-06-23] MEDS: CYANOCOBALAMIN 1,000 MCG TABLET (FP) PO SCH (10:35)
[2020-06-23] MEDS: SACUBITRIL/VALSARTAN 24 MG-26 MG TABLET PO SCH ×2 (10:35→21:37)
[2020-06-23] MEDS: POLYETHYLENE GLYCOL 3350 119 GM BTL PO SCH (10:40)
[2020-06-23 10:50] LABS: INR 0.99 (0.83-1.09)
[2020-06-23 10:52] LABS: BASO % 1.9 % (0-2.0); EOS % 8.9 % (0-4.5); HEMATOCRIT 37.9 % (32.4-45.2); HEMOGLOBIN 12.2 GM/dL (10.7-15.3); LYMPH % 20.7 % (8-40); MCH 29.2 pg (25.7-33.7); MCHC 32.2 g/dl (32.0-36.0); MEAN CELL VOLUME 90.8 fl (80-96); MONO % 14.1 % (3.8-10.2); NEUT % 54.4 % (42.8-82.8); PLATELET COUNT 175 K/MM3 (134-434); RBC 4.18 M/mm3 (3.60-5.2); RDW 16.3 % (11.6-15.6)
[2020-06-23] MEDS: oxyCODONE HCL 5 MG TABLET PO PRN ×3 (11:13→21:34)
[2020-06-23 11:22] LABS: CALCIUM 8.8 mg/dL (8.5-10.1)
[2020-06-23 11:23] LABS: BLOOD UREA NITROGEN 24.8 mg/dL (7-18); MAGNESIUM 2.8 mg/dL (1.8-2.4)
[2020-06-23 11:24] LABS: CREATININE 0.9 mg/dL (0.55-1.3)
[2020-06-23 11:25] LABS: BILIRUBIN,TOTAL 0.5 mg/dL (0.2-1); TOT PROT 6.8 g/dl (6.4-8.2)
[2020-06-23] MEDS: DOCUSATE SODIUM 100 MG CAPSULE (FP) PO SCH (21:35)
[2020-06-23] MEDS: ZOLPIDEM TARTRATE 5 MG TABLET PO PRN (23:07)
[2020-06-24] MEDS ORDERED: MEROPENEM 1 GM VIAL (RESTRICTED TO ID) IVPB ONE ×3 (01:46→17:11)
[2020-06-24] MEDS ORDERED: DEXTROSE 5%-WATER 100 ML IVPB ONE ×3 (01:46→17:12)
[2020-06-24] MEDS: MEROPENEM 1 GM in DEXTROSE 5%-WATER 100 ML IVPB SCH ×3 (01:48→17:24)
[2020-06-24] MEDS: oxyCODONE HCL 5 MG TABLET PO PRN ×3 (05:58→20:18)
[2020-06-24] MEDS: GABAPENTIN 300 MG CAPSULE PO SCH ×3 (05:59→22:07)
[2020-06-24] MEDS: INSULIN SLIDING SCALE (NOVOLOG) 1 VIAL SQ SCH ×4 (05:59→22:16)
[2020-06-24 07:33] LABS: INR 1.05 (0.83-1.09); PROTHROMBIN TIME (PATIENT) 12.7 SEC (9.7-13.0)
[2020-06-24 07:37] LABS: BASO % 2.7 % (0-2.0); EOS % 9.7 % (0-4.5); HEMATOCRIT 34.4 % (32.4-45.2); HEMOGLOBIN 11.1 GM/dL (10.7-15.3); LYMPH % 30.4 % (8-40); MCH 28.9 pg (25.7-33.7); MCHC 32.2 g/dl (32.0-36.0); MEAN CELL VOLUME 89.7 fl (80-96); MEAN PLT VOLUME 9.6 fl (7.5-11.1); MONO % 15.2 % (3.8-10.2); PLATELET COUNT 170 K/MM3 (134-434); RBC 3.84 M/mm3 (3.60-5.2); RDW 16.1 % (11.6-15.6); WHITE BLOOD COUNT 4.6 K/mm3 (4.0-10.0)
[2020-06-24 07:50] LABS: ALBUMIN 2.7 g/dl (3.4-5.0); BLOOD UREA NITROGEN 27.4 mg/dL (7-18); MAGNESIUM 2.7 mg/dL (1.8-2.4)
[2020-06-24 07:51] LABS: CALCIUM 8.7 mg/dL (8.5-10.1)
[2020-06-24 07:53] LABS: CREATININE 0.9 mg/dL (0.55-1.3)
[2020-06-24 07:55] LABS: BILIRUBIN,TOTAL 0.4 mg/dL (0.2-1); TOT PROT 6.2 g/dl (6.4-8.2)
[2020-06-24] MEDS: metoPROLOL SUCCINATE 25 MG TAB.SR.24H (FP) PO SCH ×2 (09:40→22:06)
[2020-06-24] MEDS ORDERED: PT OWN MED DRAWER 7, Y5N ONE (09:43)
[2020-06-24] MEDS: TORSEMIDE 20 MG TABLET (FP) PO SCH (09:53)
[2020-06-24] MEDS: CYANOCOBALAMIN 1,000 MCG TABLET (FP) PO SCH (09:53)
[2020-06-24] MEDS: SACUBITRIL/VALSARTAN 24 MG-26 MG TABLET PO SCH ×2 (09:53→22:05)
[2020-06-24] MEDS: FERROUS SO4 325 MG TABLET (FP) PO SCH ×2 (09:53→17:23)
[2020-06-24] MEDS: LEFLUNOMIDE 10 MG TABLET PO SCH (09:55)
[2020-06-24] MEDS: POLYETHYLENE GLYCOL 3350 119 GM BTL PO SCH (10:08)
[2020-06-24] MEDS: PRAMIPEXOLE DIHYDROCHLORIDE 0.25 MG TABLET PO SCH ×2 (11:23→22:06)
[2020-06-24] MEDS ORDERED: RIVAROXABAN 20 MG TABLET PO SCH (18:00)
[2020-06-24] MEDS: ZOLPIDEM TARTRATE 5 MG TABLET PO PRN (22:05)
[2020-06-24] MEDS: DOCUSATE SODIUM 100 MG CAPSULE (FP) PO SCH (22:07)
[2020-06-25] MEDS ORDERED: MEROPENEM 1 GM VIAL (RESTRICTED TO ID) IVPB ONE ×2 (01:55→09:55)
[2020-06-25] MEDS: MEROPENEM 1 GM in DEXTROSE 5%-WATER 100 ML IVPB SCH ×2 (03:30→10:07)
[2020-06-25] MEDS: INSULIN SLIDING SCALE (NOVOLOG) 1 VIAL SQ SCH ×4 (06:16→22:10)
[2020-06-25] MEDS: GABAPENTIN 300 MG CAPSULE PO SCH ×3 (06:17→22:06)
[2020-06-25] MEDS ORDERED: PT OWN MED DRAWER 7, Y5N ONE ×2 (07:54→10:05)
[2020-06-25] MEDS: oxyCODONE HCL 5 MG TABLET PO PRN ×3 (08:21→22:04)
[2020-06-25] MEDS: FERROUS SO4 325 MG TABLET (FP) PO SCH ×2 (08:24→18:17)
[2020-06-25] MEDS ORDERED: DEXTROSE 5%-WATER 100 ML IVPB ONE (09:55)
[2020-06-25] MEDS: metoPROLOL SUCCINATE 25 MG TAB.SR.24H (FP) PO SCH ×2 (10:03→22:06)
[2020-06-25] MEDS: POLYETHYLENE GLYCOL 3350 119 GM BTL PO SCH (10:06)
[2020-06-25] MEDS: CYANOCOBALAMIN 1,000 MCG TABLET (FP) PO SCH (10:06)
[2020-06-25] MEDS: PRAMIPEXOLE DIHYDROCHLORIDE 0.25 MG TABLET PO SCH ×2 (10:07→22:06)
[2020-06-25] MEDS: SACUBITRIL/VALSARTAN 24 MG-26 MG TABLET PO SCH ×2 (10:08→22:06)
[2020-06-25] MEDS: LEFLUNOMIDE 10 MG TABLET PO SCH (10:08)
[2020-06-25] MEDS: TORSEMIDE 20 MG TABLET (FP) PO SCH (10:08)
[2020-06-25 11:45] LABS: BASO % 2.8 % (0-2.0); EOS % 6.8 % (0-4.5); HEMATOCRIT 40.7 % (32.4-45.2); HEMOGLOBIN 13.2 GM/dL (10.7-15.3); LYMPH % 23.5 % (8-40); MCH 29.3 pg (25.7-33.7); MCHC 32.4 g/dl (32.0-36.0); MEAN CELL VOLUME 90.5 fl (80-96); MEAN PLT VOLUME 9.6 fl (7.5-11.1); MONO % 16.4 % (3.8-10.2); NEUT % 50.5 % (42.8-82.8); PLATELET COUNT 191 K/MM3 (134-434); RDW 16.4 % (11.6-15.6); WHITE BLOOD COUNT 5.3 K/mm3 (4.0-10.0)
[2020-06-25 11:53] LABS: INR 1.35 (0.83-1.09); PROTHROMBIN TIME (PATIENT) 16.2 SEC (9.7-13.0)
[2020-06-25 12:11] LABS: POTASSIUM 4.9 mmol/L (3.5-5.1)
[2020-06-25 12:17] LABS: ALBUMIN 2.9 g/dl (3.4-5.0); CALCIUM 8.7 mg/dL (8.5-10.1)
[2020-06-25 12:18] LABS: BLOOD UREA NITROGEN 27.4 mg/dL (7-18); MAGNESIUM 2.7 mg/dL (1.8-2.4)
[2020-06-25 12:22] LABS: BILIRUBIN,TOTAL 0.3 mg/dL (0.2-1); TOT PROT 6.8 g/dl (6.4-8.2)
[2020-06-25] MEDS ORDERED: INSULIN (NOVOLOG) ASPART 100 UNITS/ML 10ML VIAL ONE (17:17)
[2020-06-25] MEDS: ZOLPIDEM TARTRATE 5 MG TABLET PO PRN (22:04)
[2020-06-25] MEDS: DOCUSATE SODIUM 100 MG CAPSULE (FP) PO SCH (22:06)
[2020-06-26] MEDS: GABAPENTIN 300 MG CAPSULE PO SCH ×3 (05:17→23:10)
[2020-06-26] MEDS: INSULIN SLIDING SCALE (NOVOLOG) 1 VIAL SQ SCH ×4 (06:14→23:08)
[2020-06-26 07:17] LABS: INR 1.12 (0.83-1.09); PROTHROMBIN TIME (PATIENT) 13.5 SEC (9.7-13.0)
[2020-06-26 07:48] LABS: BASO % 2.7 % (0-2.0); EOS % 9.9 % (0-4.5); HEMATOCRIT 36.6 % (32.4-45.2); HEMOGLOBIN 11.5 GM/dL (10.7-15.3); LYMPH % 30.6 % (8-40); MCH 28.5 pg (25.7-33.7); MCHC 31.6 g/dl (32.0-36.0); MEAN CELL VOLUME 90.3 fl (80-96); MEAN PLT VOLUME 9.5 fl (7.5-11.1); MONO % 18.7 % (3.8-10.2); NEUT % 38.1 % (42.8-82.8); PLATELET COUNT 167 K/MM3 (134-434); RBC 4.05 M/mm3 (3.60-5.2); RDW 16.3 % (11.6-15.6); WHITE BLOOD COUNT 4.3 K/mm3 (4.0-10.0)
[2020-06-26] MEDS: oxyCODONE HCL 5 MG TABLET PO PRN ×2 (07:57→20:58)
[2020-06-26 08:01] LABS: ALBUMIN 2.5 g/dl (3.4-5.0); BLOOD UREA NITROGEN 26.6 mg/dL (7-18); CALCIUM 8.2 mg/dL (8.5-10.1); MAGNESIUM 2.5 mg/dL (1.8-2.4)
[2020-06-26 08:04] LABS: BILIRUBIN,TOTAL 0.7 mg/dL (0.2-1); CREATININE 0.8 mg/dL (0.55-1.3); TOT PROT 6.1 g/dl (6.4-8.2)
[2020-06-26] MEDS ORDERED: PT OWN MED DRAWER 7, Y5N ONE ×2 (08:55→22:52)
[2020-06-26] MEDS: metoPROLOL SUCCINATE 25 MG TAB.SR.24H (FP) PO SCH ×2 (09:23→23:10)
[2020-06-26] MEDS: PRAMIPEXOLE DIHYDROCHLORIDE 0.25 MG TABLET PO SCH ×2 (09:23→23:10)
[2020-06-26] MEDS: CYANOCOBALAMIN 1,000 MCG TABLET (FP) PO SCH (09:23)
[2020-06-26] MEDS: ERTAPENEM SODIUM 1 GM in SODIUM CHLORIDE 50 ML IVPB SCH (09:23)
[2020-06-26] MEDS: FERROUS SO4 325 MG TABLET (FP) PO SCH ×2 (09:23→16:31)
[2020-06-26] MEDS: LEFLUNOMIDE 10 MG TABLET PO SCH (09:23)
[2020-06-26] MEDS: SACUBITRIL/VALSARTAN 24 MG-26 MG TABLET PO SCH ×2 (09:24→23:10)
[2020-06-26] MEDS: TORSEMIDE 100 MG TABLET PO SCH (09:24)
[2020-06-26] MEDS: POLYETHYLENE GLYCOL 3350 119 GM BTL PO SCH (10:35)
[2020-06-26] MEDS ORDERED: ONDANSETRON 4 MG/2 ML VIAL ONE (10:54)
[2020-06-26] MEDS: ENOXAPARIN NA (PORCINE) 40 MG/0.4 ML DISP.SYRIN SQ SCH ×2 (10:58→23:09)
[2020-06-26] MEDS ORDERED: ONDANSETRON 4 MG/2 ML VIAL IVPUSH ONE (11:00)
[2020-06-26] MEDS: BACLOFEN 10 MG TABLET (FP) PO PRN (13:08)
[2020-06-26] MEDS: DOCUSATE SODIUM 100 MG CAPSULE (FP) PO SCH (23:08)
[2020-06-26] MEDS: ZOLPIDEM TARTRATE 5 MG TABLET PO PRN (23:28)
[2020-06-27] MEDS: GABAPENTIN 300 MG CAPSULE PO SCH ×3 (05:23→22:01)
[2020-06-27] MEDS: oxyCODONE HCL 5 MG TABLET PO PRN ×3 (05:23→22:13)
[2020-06-27 08:02] LABS: POTASSIUM 4.8 mmol/L (3.5-5.1)
[2020-06-27 08:04] LABS: HEMATOCRIT 36.9 % (32.4-45.2); HEMOGLOBIN 11.6 GM/dL (10.7-15.3); MCH 28.5 pg (25.7-33.7); MCHC 31.4 g/dl (32.0-36.0); MEAN CELL VOLUME 90.8 fl (80-96); MEAN PLT VOLUME 9.9 fl (7.5-11.1); PLATELET COUNT 167 K/MM3 (134-434); RBC 4.06 M/mm3 (3.60-5.2); RDW 15.9 % (11.6-15.6); WHITE BLOOD COUNT 4.5 K/mm3 (4.0-10.0)
[2020-06-27 08:06] LABS: CALCIUM 8.8 mg/dL (8.5-10.1)
[2020-06-27 08:08] LABS: ALBUMIN 2.6 g/dl (3.4-5.0); BLOOD UREA NITROGEN 34.7 mg/dL (7-18); MAGNESIUM 2.6 mg/dL (1.8-2.4)
[2020-06-27 08:12] LABS: BILIRUBIN,TOTAL 0.6 mg/dL (0.2-1)
[2020-06-27] MEDS: FERROUS SO4 325 MG TABLET (FP) PO SCH ×2 (08:46→17:10)
[2020-06-27] MEDS: INSULIN SLIDING SCALE (NOVOLOG) 1 VIAL SQ SCH ×4 (08:46→22:01)
[2020-06-27] MEDS ORDERED: PT OWN MED DRAWER 7, Y5N ONE ×3 (10:43→21:05)
[2020-06-27] MEDS: LEFLUNOMIDE 10 MG TABLET PO SCH (10:52)
[2020-06-27] MEDS: ERTAPENEM SODIUM 1 GM in SODIUM CHLORIDE 50 ML IVPB SCH (10:52)
[2020-06-27] MEDS: CYANOCOBALAMIN 1,000 MCG TABLET (FP) PO SCH (10:53)
[2020-06-27] MEDS: metoPROLOL SUCCINATE 25 MG TAB.SR.24H (FP) PO SCH ×2 (10:53→22:01)
[2020-06-27] MEDS: TORSEMIDE 100 MG TABLET PO SCH (10:54)
[2020-06-27] MEDS: SACUBITRIL/VALSARTAN 24 MG-26 MG TABLET PO SCH ×2 (10:55→22:01)
[2020-06-27] MEDS: ENOXAPARIN NA (PORCINE) 40 MG/0.4 ML DISP.SYRIN SQ SCH ×2 (10:55→22:01)
[2020-06-27] MEDS: PRAMIPEXOLE DIHYDROCHLORIDE 0.25 MG TABLET PO SCH ×2 (10:55→22:02)
[2020-06-27] MEDS: POLYETHYLENE GLYCOL 3350 119 GM BTL PO SCH (11:25)
[2020-06-27] MEDS: BACLOFEN 10 MG TABLET (FP) PO PRN (16:44)
[2020-06-27] MEDS: DOCUSATE SODIUM 100 MG CAPSULE (FP) PO SCH (22:01)
[2020-06-27] MEDS ORDERED: ZOLPIDEM TARTRATE 5 MG TABLET PO ONE (22:57)
[2020-06-28] MEDS: GABAPENTIN 300 MG CAPSULE PO SCH ×3 (06:28→21:27)
[2020-06-28] MEDS: INSULIN SLIDING SCALE (NOVOLOG) 1 VIAL SQ SCH ×4 (06:32→21:34)
[2020-06-28 08:23] LABS: HEMATOCRIT 37.8 % (32.4-45.2); HEMOGLOBIN 12.1 GM/dL (10.7-15.3); MCH 29.1 pg (25.7-33.7); MCHC 32.1 g/dl (32.0-36.0); MEAN CELL VOLUME 90.7 fl (80-96); MEAN PLT VOLUME 9.9 fl (7.5-11.1); PLATELET COUNT 162 K/MM3 (134-434); RBC 4.17 M/mm3 (3.60-5.2); RDW 15.8 % (11.6-15.6); WHITE BLOOD COUNT 4.3 K/mm3 (4.0-10.0)
[2020-06-28 08:44] LABS: POTASSIUM 4.6 mmol/L (3.5-5.1)
[2020-06-28 08:52] LABS: ALBUMIN 2.7 g/dl (3.4-5.0); BLOOD UREA NITROGEN 39.3 mg/dL (7-18); CALCIUM 8.7 mg/dL (8.5-10.1); MAGNESIUM 2.5 mg/dL (1.8-2.4)
[2020-06-28 08:56] LABS: BILIRUBIN,TOTAL 0.5 mg/dL (0.2-1); TOT PROT 6.3 g/dl (6.4-8.2)
[2020-06-28] MEDS ORDERED: PT OWN MED DRAWER 7, Y5N ONE ×2 (09:23→20:39)
[2020-06-28] MEDS: LEFLUNOMIDE 10 MG TABLET PO SCH (09:28)
[2020-06-28] MEDS: metoPROLOL SUCCINATE 25 MG TAB.SR.24H (FP) PO SCH ×2 (09:29→21:28)
[2020-06-28] MEDS: POLYETHYLENE GLYCOL 3350 119 GM BTL PO SCH (09:29)
[2020-06-28] MEDS: PRAMIPEXOLE DIHYDROCHLORIDE 0.25 MG TABLET PO SCH ×2 (09:29→21:29)
[2020-06-28] MEDS: CYANOCOBALAMIN 1,000 MCG TABLET (FP) PO SCH (09:29)
[2020-06-28] MEDS: ENOXAPARIN NA (PORCINE) 40 MG/0.4 ML DISP.SYRIN SQ SCH ×2 (09:30→21:27)
[2020-06-28] MEDS: SACUBITRIL/VALSARTAN 24 MG-26 MG TABLET PO SCH ×2 (09:30→21:29)
[2020-06-28] MEDS: TORSEMIDE 100 MG TABLET PO SCH (09:31)
[2020-06-28] MEDS: FERROUS SO4 325 MG TABLET (FP) PO SCH ×2 (09:32→17:26)
[2020-06-28] MEDS: oxyCODONE HCL 5 MG TABLET PO PRN ×2 (09:32→19:47)
[2020-06-28] MEDS: ERTAPENEM SODIUM 1 GM in SODIUM CHLORIDE 50 ML IVPB SCH ×2 (09:54→09:56)
[2020-06-28] MEDS: DOCUSATE SODIUM 100 MG CAPSULE (FP) PO SCH (21:27)
[2020-06-29] MEDS ORDERED: ZOLPIDEM TARTRATE 5 MG TABLET PO ONE ×2 (00:09→20:47)
[2020-06-29] MEDS: oxyCODONE HCL 5 MG TABLET PO PRN ×3 (05:40→22:22)
[2020-06-29] MEDS: GABAPENTIN 300 MG CAPSULE PO SCH ×3 (05:40→22:21)
[2020-06-29 08:14] LABS: HEMATOCRIT 36.3 % (32.4-45.2); HEMOGLOBIN 11.7 GM/dL (10.7-15.3); MCH 29.1 pg (25.7-33.7); MCHC 32.1 g/dl (32.0-36.0); MEAN CELL VOLUME 90.6 fl (80-96); PLATELET COUNT 161 K/MM3 (134-434); RDW 16.1 % (11.6-15.6); WHITE BLOOD COUNT 4.2 K/mm3 (4.0-10.0)
[2020-06-29 08:51] LABS: POTASSIUM 4.5 mmol/L (3.5-5.1)
[2020-06-29 08:53] LABS: ALBUMIN 2.6 g/dl (3.4-5.0); CALCIUM 8.5 mg/dL (8.5-10.1)
[2020-06-29 08:54] LABS: BLOOD UREA NITROGEN 36.3 mg/dL (7-18); MAGNESIUM 2.5 mg/dL (1.8-2.4)
[2020-06-29 08:58] LABS: BILIRUBIN,TOTAL 0.3 mg/dL (0.2-1); TOT PROT 6.2 g/dl (6.4-8.2)
[2020-06-29] MEDS ORDERED: HYDROmorphone HCl 2 MG/ML VIAL IVPB ONE (09:51)
[2020-06-29] MEDS: INSULIN SLIDING SCALE (NOVOLOG) 1 VIAL SQ SCH ×4 (10:07→22:22)
[2020-06-29] MEDS ORDERED: PT OWN MED DRAWER 7, Y5N ONE ×2 (10:16→21:07)
[2020-06-29] MEDS: FERROUS SO4 325 MG TABLET (FP) PO SCH ×2 (10:28→17:46)
[2020-06-29] MEDS: metoPROLOL SUCCINATE 25 MG TAB.SR.24H (FP) PO SCH ×2 (10:28→22:16)
[2020-06-29] MEDS: LEFLUNOMIDE 10 MG TABLET PO SCH (10:29)
[2020-06-29] MEDS: ENOXAPARIN NA (PORCINE) 40 MG/0.4 ML DISP.SYRIN SQ SCH (10:29)
[2020-06-29] MEDS: ERTAPENEM SODIUM 1 GM in SODIUM CHLORIDE 50 ML IVPB SCH (10:29)
[2020-06-29] MEDS: CYANOCOBALAMIN 1,000 MCG TABLET (FP) PO SCH (10:29)
[2020-06-29] MEDS: PRAMIPEXOLE DIHYDROCHLORIDE 0.25 MG TABLET PO SCH ×2 (10:30→22:20)
[2020-06-29] MEDS: SACUBITRIL/VALSARTAN 24 MG-26 MG TABLET PO SCH ×2 (10:30→22:20)
[2020-06-29] MEDS: TORSEMIDE 100 MG TABLET PO SCH (10:30)
[2020-06-29] MEDS: POLYETHYLENE GLYCOL 3350 119 GM BTL PO SCH (10:31)
[2020-06-29 18:05] LABS: PH,URINE 5.5 (5.0-8.0); URINE APPEARANCE CLEAR; URINE BILIRUBIN NEGATIVE (NEGATIVE); URINE COLOR YELLOW; URINE GLUCOSE (UA) NEGATIVE (NEGATIVE); URINE KETONE NEGATIVE (NEGATIVE); URINE LEUK ESTERASE NEGATIVE (NEGATIVE); URINE NITRITE NEGATIVE (NEGATIVE); URINE PROTEIN NEGATIVE (NEGATIVE); URINE UROBILINOGEN 0.2 mg/dL (0.2-1.0)
[2020-06-29] MEDS: DOCUSATE SODIUM 100 MG CAPSULE (FP) PO SCH (22:16)
[2020-06-30] MEDS: GABAPENTIN 300 MG CAPSULE PO SCH ×3 (06:03→23:08)
[2020-06-30] MEDS: oxyCODONE HCL 5 MG TABLET PO PRN ×3 (06:04→17:42)
[2020-06-30] MEDS: INSULIN SLIDING SCALE (NOVOLOG) 1 VIAL SQ SCH ×4 (06:08→23:12)
[2020-06-30 07:28] LABS: INR 1.03 (0.83-1.09); PROTHROMBIN TIME (PATIENT) 12.4 SEC (9.7-13.0)
[2020-06-30 07:31] LABS: ACTIVATED PTT 30.4 SECONDS (25.2-36.5)
[2020-06-30 07:41] LABS: HEMATOCRIT 37.9 % (32.4-45.2); HEMOGLOBIN 11.9 GM/dL (10.7-15.3); MCH 28.8 pg (25.7-33.7); MCHC 31.5 g/dl (32.0-36.0); MEAN CELL VOLUME 91.5 fl (80-96); MEAN PLT VOLUME 9.7 fl (7.5-11.1); PLATELET COUNT 165 K/MM3 (134-434); RBC 4.14 M/mm3 (3.60-5.2); RDW 15.9 % (11.6-15.6); WHITE BLOOD COUNT 4.3 K/mm3 (4.0-10.0)
[2020-06-30 07:51] LABS: POTASSIUM 4.7 mmol/L (3.5-5.1)
[2020-06-30 07:54] LABS: ALBUMIN 2.6 g/dl (3.4-5.0); BLOOD UREA NITROGEN 31.9 mg/dL (7-18); CALCIUM 8.7 mg/dL (8.5-10.1); MAGNESIUM 2.8 mg/dL (1.8-2.4)
[2020-06-30 07:58] LABS: PHOSPHOROUS 3.7 mg/dL (2.5-4.9)
[2020-06-30 07:59] LABS: BILIRUBIN,TOTAL 0.4 mg/dL (0.2-1); TOT PROT 6.4 g/dl (6.4-8.2)
[2020-06-30] MEDS: FERROUS SO4 325 MG TABLET (FP) PO SCH ×2 (08:36→17:00)
[2020-06-30] MEDS: metoPROLOL SUCCINATE 25 MG TAB.SR.24H (FP) PO SCH ×2 (09:36→23:08)
[2020-06-30] MEDS: ERTAPENEM SODIUM 1 GM in SODIUM CHLORIDE 50 ML IVPB SCH (09:36)
[2020-06-30] MEDS: SACUBITRIL/VALSARTAN 24 MG-26 MG TABLET PO SCH ×2 (09:42→23:08)
[2020-06-30] MEDS: POLYETHYLENE GLYCOL 3350 119 GM BTL PO SCH (09:42)
[2020-06-30] MEDS: LEFLUNOMIDE 10 MG TABLET PO SCH (09:42)
[2020-06-30] MEDS: TORSEMIDE 100 MG TABLET PO SCH ×2 (09:42→14:05)
[2020-06-30] MEDS: CYANOCOBALAMIN 1,000 MCG TABLET (FP) PO SCH (09:42)
[2020-06-30] MEDS: PRAMIPEXOLE DIHYDROCHLORIDE 0.25 MG TABLET PO SCH ×2 (09:42→23:09)
[2020-06-30] MEDS ORDERED: PT OWN MED DRAWER 7, Y5N ONE ×2 (13:58→23:07)
[2020-06-30] MEDS: BACLOFEN 10 MG TABLET (FP) PO PRN (15:38)
[2020-06-30] MEDS: ENOXAPARIN NA (PORCINE) 40 MG/0.4 ML DISP.SYRIN SQ SCH (23:09)
[2020-06-30] MEDS: DOCUSATE SODIUM 100 MG CAPSULE (FP) PO SCH (23:09)
[2020-07-01] MEDS: GABAPENTIN 300 MG CAPSULE PO SCH ×3 (07:02→22:09)
[2020-07-01] MEDS: oxyCODONE HCL 5 MG TABLET PO PRN ×3 (07:03→22:09)
[2020-07-01] MEDS: INSULIN SLIDING SCALE (NOVOLOG) 1 VIAL SQ SCH ×4 (07:05→22:11)
[2020-07-01 08:42] LABS: HEMATOCRIT 36.1 % (32.4-45.2); HEMOGLOBIN 11.8 GM/dL (10.7-15.3); MCH 29.6 pg (25.7-33.7); MCHC 32.8 g/dl (32.0-36.0); MEAN CELL VOLUME 90.2 fl (80-96); MEAN PLT VOLUME 9.8 fl (7.5-11.1); PLATELET COUNT 164 K/MM3 (134-434); RBC 4.01 M/mm3 (3.60-5.2); RDW 15.8 % (11.6-15.6); WHITE BLOOD COUNT 4.5 K/mm3 (4.0-10.0)
[2020-07-01 08:52] LABS: POTASSIUM 4.5 mmol/L (3.5-5.1)
[2020-07-01 08:54] LABS: CALCIUM 8.6 mg/dL (8.5-10.1)
[2020-07-01 08:55] LABS: ALBUMIN 2.6 g/dl (3.4-5.0); MAGNESIUM 2.6 mg/dL (1.8-2.4)
[2020-07-01 08:59] LABS: BILIRUBIN,TOTAL 0.3 mg/dL (0.2-1); TOT PROT 6.2 g/dl (6.4-8.2)
[2020-07-01] MEDS: SACUBITRIL/VALSARTAN 24 MG-26 MG TABLET PO SCH ×2 (09:19→22:10)
[2020-07-01] MEDS: PRAMIPEXOLE DIHYDROCHLORIDE 0.25 MG TABLET PO SCH ×2 (09:19→22:10)
[2020-07-01] MEDS: TORSEMIDE 100 MG TABLET PO SCH (09:19)
[2020-07-01] MEDS: CYANOCOBALAMIN 1,000 MCG TABLET (FP) PO SCH (09:21)
[2020-07-01] MEDS: FERROUS SO4 325 MG TABLET (FP) PO SCH ×2 (09:21→17:30)
[2020-07-01] MEDS: metoPROLOL SUCCINATE 25 MG TAB.SR.24H (FP) PO SCH ×2 (09:21→22:10)
[2020-07-01] MEDS: LEFLUNOMIDE 10 MG TABLET PO SCH (09:21)
[2020-07-01] MEDS: POLYETHYLENE GLYCOL 3350 119 GM BTL PO SCH (09:22)
[2020-07-01] MEDS: ERTAPENEM SODIUM 1 GM in SODIUM CHLORIDE 50 ML IVPB SCH (09:22)
[2020-07-01] MEDS ORDERED: PT OWN MED DRAWER 7, Y5N ONE (22:02)
[2020-07-01] MEDS: DOCUSATE SODIUM 100 MG CAPSULE (FP) PO SCH (22:08)
[2020-07-02] MEDS: GABAPENTIN 300 MG CAPSULE PO SCH ×3 (06:38→21:27)
[2020-07-02] MEDS: INSULIN SLIDING SCALE (NOVOLOG) 1 VIAL SQ SCH ×4 (06:38→21:27)
[2020-07-02] MEDS ORDERED: THROMBIN (BOVINE) 5,000 UNIT VIAL TP ONE (07:27)
[2020-07-02] MEDS ORDERED: HEPARIN NA (PORCINE) 5,000 UNITS/ML 1ML VIAL ONE (07:55)
[2020-07-02 08:07] LABS: INR 1.04 (0.83-1.09); PROTHROMBIN TIME (PATIENT) 12.8 SEC (9.7-13.0)
[2020-07-02 08:10] LABS: HEMATOCRIT 35.4 % (32.4-45.2); HEMOGLOBIN 11.3 GM/dL (10.7-15.3); MCH 28.6 pg (25.7-33.7); MCHC 31.8 g/dl (32.0-36.0); MEAN CELL VOLUME 89.8 fl (80-96); PLATELET COUNT 173 K/MM3 (134-434); RBC 3.94 M/mm3 (3.60-5.2); RDW 15.9 % (11.6-15.6); WHITE BLOOD COUNT 4.7 K/mm3 (4.0-10.0)
[2020-07-02 08:14] LABS: POTASSIUM 4.7 mmol/L (3.5-5.1)
[2020-07-02 08:16] LABS: ALBUMIN 2.6 g/dl (3.4-5.0); CALCIUM 8.7 mg/dL (8.5-10.1)
[2020-07-02 08:17] LABS: BLOOD UREA NITROGEN 36.2 mg/dL (7-18); MAGNESIUM 2.7 mg/dL (1.8-2.4)
[2020-07-02] MEDS ORDERED: PROPOFOL 20 ML ONE ×4 (08:17)
[2020-07-02] MEDS ORDERED: MIDAZOLAM HCL 2 MG/2 ML SINGLE DOSE VIAL ONE ×2 (08:17→08:51)
[2020-07-02] MEDS ORDERED: ROCURONIUM BROMIDE 50 MG/5 ML SYRINGE ONE (08:17)
[2020-07-02] MEDS: FERROUS SO4 325 MG TABLET (FP) PO SCH ×2 (08:19→18:03)
[2020-07-02 08:21] LABS: BILIRUBIN,TOTAL 0.3 mg/dL (0.2-1); TOT PROT 6.2 g/dl (6.4-8.2)
[2020-07-02] MEDS ORDERED: LIDOCAINE HCL/PF 2% SDV 5ML VIAL ONE ×2 (08:39→09:32)
[2020-07-02] MEDS ORDERED: ETOMIDATE 20 MG/10 ML AMPUL IVPUSH ONE (08:58)
[2020-07-02] MEDS ORDERED: SUCCINYLCHOLINE CHLORIDE 200 MG/10 ML SYRINGE ONE (08:59)
[2020-07-02] MEDS ORDERED: ONDANSETRON 4 MG/2 ML VIAL IVPUSH PRN (10:06)
[2020-07-02] MEDS ORDERED: PROMETHAZINE HCL 25 MG/1 ML VIAL IVPB PRN (10:06)
[2020-07-02] MEDS ORDERED: ALBUTEROL SO4 2.5/IPRATROPIUM 0.5 INH SOL 3 ML VIAL.NEB. NEB PRN (10:13)
[2020-07-02] MEDS ORDERED: BACLOFEN 10 MG TABLET (FP) PO PRN (10:13)
[2020-07-02] MEDS ORDERED: SENNOSIDES 8.6MG TABLET (FP) PO PRN (10:13)
[2020-07-02] MEDS ORDERED: oxyCODONE HCL 5 MG TABLET PO PRN (10:13)
[2020-07-02] MEDS ORDERED: LACTATED RINGERS SOLUTION 1,000 ML IV SCH (10:15)
[2020-07-02] MEDS: oxyCODONE HCL 5 MG TABLET PO PRN ×2 (11:18→21:27)
[2020-07-02] MEDS: ERTAPENEM SODIUM 1 GM in SODIUM CHLORIDE 50 ML IVPB SCH (12:05)
[2020-07-02] MEDS ORDERED: PT OWN MED DRAWER 7, Y5N ONE ×2 (12:07→20:55)
[2020-07-02] MEDS: CYANOCOBALAMIN 1,000 MCG TABLET (FP) PO SCH (12:46)
[2020-07-02] MEDS: metoPROLOL SUCCINATE 25 MG TAB.SR.24H (FP) PO SCH ×2 (12:46→21:27)
[2020-07-02] MEDS: POLYETHYLENE GLYCOL 3350 119 GM BTL PO SCH (12:46)
[2020-07-02] MEDS: PRAMIPEXOLE DIHYDROCHLORIDE 0.25 MG TABLET PO SCH ×2 (12:46→21:27)
[2020-07-02] MEDS: SACUBITRIL/VALSARTAN 24 MG-26 MG TABLET PO SCH ×2 (12:47→21:26)
[2020-07-02] MEDS: TORSEMIDE 100 MG TABLET PO SCH (12:47)
[2020-07-02] MEDS: LEFLUNOMIDE 10 MG TABLET PO SCH (12:47)
[2020-07-02] MEDS: MEROPENEM 1 GM in DEXTROSE 5%-WATER 100 ML IVPB SCH (18:00)
[2020-07-02] MEDS ORDERED: RIVAROXABAN 20 MG TABLET PO SCH (18:00)
[2020-07-02] MEDS ORDERED: DOCUSATE SODIUM 100 MG CAPSULE (FP) PO SCH (22:00)
[2020-07-02] MEDS ORDERED: MELATONIN 5 MG TABLETS PO PRN (23:13)
[2020-07-03] MEDS ORDERED: MEROPENEM 1 GM VIAL (RESTRICTED TO ID) IVPB ONE ×2 (01:14→09:31)
[2020-07-03] MEDS ORDERED: DEXTROSE 5%-WATER 100 ML IVPB ONE ×2 (01:14→09:32)
[2020-07-03] MEDS: MEROPENEM 1 GM in DEXTROSE 5%-WATER 100 ML IVPB SCH ×2 (01:28→09:37)
[2020-07-03] MEDS: GABAPENTIN 300 MG CAPSULE PO SCH ×2 (05:43→13:02)
[2020-07-03] MEDS: INSULIN SLIDING SCALE (NOVOLOG) 1 VIAL SQ SCH ×2 (06:38→11:38)
[2020-07-03 06:45] LABS: HEMATOCRIT 36.7 % (32.4-45.2); HEMOGLOBIN 11.5 GM/dL (10.7-15.3); MCH 28.2 pg (25.7-33.7); MCHC 31.4 g/dl (32.0-36.0); MEAN PLT VOLUME 8.9 fl (7.5-11.1); PLATELET COUNT 150 K/MM3 (134-434); RBC 4.08 M/mm3 (3.60-5.2); RDW 16.1 % (11.6-15.6); WHITE BLOOD COUNT 3.7 K/mm3 (4.0-10.0)
[2020-07-03 07:01] VITALS: BP 99/58; PULSE 84; TEMP 97.7
[2020-07-03 07:08] LABS: POTASSIUM 4.3 mmol/L (3.5-5.1)
[2020-07-03 07:12] LABS: BLOOD UREA NITROGEN 29.8 mg/dL (7-18); CALCIUM 8.6 mg/dL (8.5-10.1); MAGNESIUM 2.6 mg/dL (1.8-2.4)
[2020-07-03 07:13] LABS: ALBUMIN 2.4 g/dl (3.4-5.0)
[2020-07-03 07:16] LABS: CREATININE 0.8 mg/dL (0.55-1.3)
[2020-07-03 07:17] LABS: TOT PROT 5.7 g/dl (6.4-8.2)
[2020-07-03 08:09] LABS: BILIRUBIN,TOTAL 0.5 mg/dL (0.2-1)
[2020-07-03] MEDS: FERROUS SO4 325 MG TABLET (FP) PO SCH (08:25)
[2020-07-03] MEDS ORDERED: PT OWN MED DRAWER 7, Y5N ONE (09:32)
[2020-07-03] MEDS: metoPROLOL SUCCINATE 25 MG TAB.SR.24H (FP) PO SCH (09:34)
[2020-07-03] MEDS: PRAMIPEXOLE DIHYDROCHLORIDE 0.25 MG TABLET PO SCH (09:35)
[2020-07-03] MEDS: SACUBITRIL/VALSARTAN 24 MG-26 MG TABLET PO SCH (09:36)
[2020-07-03] MEDS ORDERED: LEFLUNOMIDE 10 MG TABLET PO SCH (10:00)
[2020-07-03] MEDS ORDERED: TORSEMIDE 100 MG TABLET PO SCH (10:00)
[2020-07-03] MEDS ORDERED: CYANOCOBALAMIN 1,000 MCG TABLET (FP) PO SCH (10:00)
[2020-07-03] MEDS ORDERED: POLYETHYLENE GLYCOL 3350 119 GM BTL PO SCH (10:00)
[2020-07-03] MEDS ORDERED: ERTAPENEM SODIUM 1 GM in SODIUM CHLORIDE 50 ML IVPB SCH (10:00)
[2020-07-03] MEDS: oxyCODONE HCL 5 MG TABLET PO PRN (11:23)
== END 2020-07-03 15:18 | disposition home health service (06) | DRG 551 ==
LOC: JER 15:26 → JERBED 19:09 → J7W 06-09 00:28 → J4W 06-11 19:04 → J8W 06-26 18:56
PROVIDERS: ADMIT Hospitalist; ATTEND Nurse Practitioner Family
PROC: 05H933Z Insertion of Infusion Device into Right Brachial Vein, Percutaneous Approach (ICD-10-PCS; principal; 2020-07-02 08:00)
DX: S32.009A Unspecified fracture of unspecified lumbar vertebra, initial encounter for closed fracture (principal); G06.1 Intraspinal abscess and granuloma; I50.22 Chronic systolic (congestive) heart failure; N39.0 Urinary tract infection, site not specified; I42.8 Other cardiomyopathies; J98.11 Atelectasis; M54.17 Radiculopathy, lumbosacral region; M48.061 Spinal stenosis, lumbar region without neurogenic claudication; I95.9 Hypotension, unspecified; F41.9 Anxiety disorder, unspecified; W19.XXXA Unspecified fall, initial encounter; Y93.9 Activity, unspecified; Y92.009 Unspecified place in unspecified non-institutional (private) residence as the place of occurrence of the external cause; Y99.9 Unspecified external cause status; I48.0 Paroxysmal atrial fibrillation; G47.33 Obstructive sleep apnea (adult) (pediatric); I10 Essential (primary) hypertension; M06.9 Rheumatoid arthritis, unspecified; E66.9 Obesity, unspecified; Z68.32 Body mass index [BMI] 32.0-32.9, adult; E11.40 Type 2 diabetes mellitus with diabetic neuropathy, unspecified; R09.02 Hypoxemia; K59.00 Constipation, unspecified; Z53.09 Procedure and treatment not carried out because of other contraindication
CPT/HCPCS: 36415; 36569; 36600; 71045-TC-FY; 72129-TC; 72132-TC; 72148-TC; 74177-TC; 77001-TC-FY; 80048; 80053; 81003; 82550; 82803; 82962; 83605; 83735; 83880; 84100; 84484; 85025; 85027; 85610; 85651; 85730; 86140; 86850; 86900; 86901; 86922; 87040; 87086; 93005; 93010; 93306-TC; 94010; 94640; 94760; 97116-GP; 97161-GP; 99285-25; C1751; C9803; J0131; J0475; J1644; Q9967; U0003

== ENCOUNTER 2020-08-17 03:02 | Inpatient (IN) | payer OTHER ==
[2020-08-17] MEDS ORDERED: SODIUM CHLORIDE 500 ML IV STA (05:18)
[2020-08-17 05:42] LABS: BASO % 1.4 % (0-2.0); EOS % 3.8 % (0-4.5); HEMOGLOBIN 14.5 GM/dL (10.7-15.3); MCH 30.6 pg (25.7-33.7); MEAN CELL VOLUME 92.6 fl (80-96); MEAN PLT VOLUME 9.2 fl (7.5-11.1); MONO % 10.2 % (3.8-10.2); NEUT % 69.6 % (42.8-82.8); PLATELET COUNT 196 K/MM3 (134-434); RBC 4.75 M/mm3 (3.60-5.2); RDW 22.2 % (11.6-15.6); WHITE BLOOD COUNT 7.1 K/mm3 (4.0-10.0)
[2020-08-17 05:49] LABS: INR 3.64 (0.83-1.09); PROTHROMBIN TIME (PATIENT) 42.4 SEC (9.7-13.0)
[2020-08-17 05:53] LABS: ACTIVATED PTT 37.7 SECONDS (25.2-36.5)
[2020-08-17 06:03] LABS: CHLORIDE 107 mmol/L (98-107); POTASSIUM 5.1 mmol/L (3.5-5.1); SODIUM 139 mmol/L (136-145)
[2020-08-17 06:04] LABS: ALBUMIN 3.3 g/dl (3.4-5.0); ANION GAP 11 MMOL/L (8-16); BLOOD UREA NITROGEN 66.8 mg/dL (7-18); CALCIUM 8.6 mg/dL (8.5-10.1); CO2 21 mmol/L (21-32); GLUCOSE,RANDOM 110 mg/dL (74-106)
[2020-08-17 06:07] LABS: BILIRUBIN,DIRECT 0.3 mg/dL (0.0-0.2); CREATININE 1.8 mg/dL (0.55-1.3); SGOT/AST 65 U/L (15-37); SGPT/ALT 64 U/L (13-61)
[2020-08-17 06:09] LABS: BILIRUBIN,TOTAL 0.7 mg/dL (0.2-1); TOT PROT 6.9 g/dl (6.4-8.2)
[2020-08-17 06:10] LABS: ALK PHOS 282 U/L (45-117)
[2020-08-17 06:11] LABS: LDH 450 U/L (84-246)
[2020-08-17 10:09] LABS: EPI CELLS 11 /uL (0-25.1); HYALINE CASTS 2 /uL (0-3.1); URINE APPEARANCE CLEAR; URINE BACTERIA 91 /uL (0-1359); URINE BILIRUBIN NEGATIVE (NEGATIVE); URINE COLOR YELLOW; URINE GLUCOSE (UA) NEGATIVE (NEGATIVE); URINE KETONE NEGATIVE (NEGATIVE); URINE LEUK ESTERASE TRACE (NEGATIVE); URINE NITRITE NEGATIVE (NEGATIVE); URINE PROTEIN NEGATIVE (NEGATIVE); URINE RBC 3 /uL (0-23.9); URINE UROBILINOGEN 0.2 mg/dL (0.2-1.0); URINE WBC 37 /uL (0-25.8)
[2020-08-17] MEDS ORDERED: ACETAMINOPHEN 1000 MG/100 ML VIAL (NON FORMULARY) IVPB ONE (10:17)
[2020-08-17] MEDS ORDERED: ACETAMINOPHEN INJECTION 100 ML IVPB ONE (10:31)
[2020-08-17 11:08] LABS: ANISOCYTOSIS 3+; MACROCYTOSIS 1+; OVALOCYTE 2+; PLATELET ESTIMATE NORMAL
[2020-08-17] MEDS ORDERED: ACETAMINOPHEN 325 MG TABLET (FP) ONE (21:42)
[2020-08-17] MEDS ORDERED: SACUBITRIL/VALSARTAN 24 MG-26 MG TABLET PO SCH (22:00)
[2020-08-17] MEDS: GABAPENTIN 300 MG CAPSULE PO SCH (22:02)
[2020-08-17] MEDS: ACETAMINOPHEN 325 MG TABLET (FP) PO PRN (22:03)
[2020-08-17] MEDS ORDERED: metoPROLOL SUCCINATE 25 MG TAB.SR.24H (FP) ONE (22:26)
[2020-08-17] MEDS: metoPROLOL SUCCINATE 25 MG TAB.SR.24H (FP) PO SCH (22:28)
[2020-08-17] MEDS: PRAMIPEXOLE DIHYDROCHLORIDE 0.25 MG TABLET PO SCH (23:14)
[2020-08-18] MEDS: ACETAMINOPHEN 325 MG TABLET (FP) PO PRN (03:52)
[2020-08-18] MEDS ORDERED: ACETAMINOPHEN 325 MG TABLET (FP) ONE (03:53)
[2020-08-18] MEDS: GABAPENTIN 300 MG CAPSULE PO SCH ×2 (06:03→13:01)
[2020-08-18] MEDS: FUROSEMIDE 40 MG/4 ML INJECTABLE VIAL IVPUSH SCH ×2 (06:29→14:36)
[2020-08-18] MEDS ORDERED: POLYETHYLENE GLYCOL 3350 119 GM BTL PO SCH (10:00)
[2020-08-18 10:30] LABS: HEMOGLOBIN 14.6 GM/dL (10.7-15.3); MCH 30.3 pg (25.7-33.7); MCHC 32.4 g/dl (32.0-36.0); MEAN CELL VOLUME 93.6 fl (80-96); MEAN PLT VOLUME 9.2 fl (7.5-11.1); PLATELET COUNT 167 K/MM3 (134-434); RBC 4.81 M/mm3 (3.60-5.2); RDW 21.8 % (11.6-15.6); WHITE BLOOD COUNT 6.9 K/mm3 (4.0-10.0)
[2020-08-18 10:53] LABS: POTASSIUM 4.7 mmol/L (3.5-5.1)
[2020-08-18 10:56] LABS: BLOOD UREA NITROGEN 61.7 mg/dL (7-18); MAGNESIUM 2.2 mg/dL (1.8-2.4)
[2020-08-18 10:59] LABS: CREATININE 1.3 mg/dL (0.55-1.3)
[2020-08-18 11:00] LABS: TOT PROT 6.2 g/dl (6.4-8.2)
[2020-08-18] MEDS ORDERED: metoPROLOL SUCCINATE 25 MG TAB.SR.24H (FP) ONE (11:20)
[2020-08-18 11:24] LABS: BILIRUBIN,TOTAL 0.8 mg/dL (0.2-1)
[2020-08-18] MEDS: metoPROLOL SUCCINATE 25 MG TAB.SR.24H (FP) PO SCH ×2 (11:30→23:07)
[2020-08-18] MEDS: LEFLUNOMIDE 10 MG TABLET PO SCH (11:30)
[2020-08-18] MEDS: PRAMIPEXOLE DIHYDROCHLORIDE 0.25 MG TABLET PO SCH ×2 (13:01→23:07)
[2020-08-18] MEDS ORDERED: FUROSEMIDE 40 MG/4 ML INJECTABLE VIAL ONE (14:28)
[2020-08-18] MEDS ORDERED: diazePAM 5 MG TABLET PO PRN (15:39)
[2020-08-18] MEDS ORDERED: oxyCODONE HCL 5 MG TABLET ONE (16:06)
[2020-08-18] MEDS: oxyCODONE HCL 5 MG TABLET PO PRN (16:16)
[2020-08-18] MEDS: RIVAROXABAN 20 MG TABLET PO SCH (19:11)
[2020-08-18] MEDS ORDERED: PT OWN MED DRAWER 7, Y5N ONE (22:23)
[2020-08-18] MEDS: ZOLPIDEM TARTRATE 5 MG TABLET PO PRN (23:07)
[2020-08-18] MEDS: SACUBITRIL/VALSARTAN 24 MG-26 MG TABLET PO SCH (23:11)
[2020-08-19] MEDS: FUROSEMIDE 40 MG/4 ML INJECTABLE VIAL IVPUSH SCH ×2 (05:30→15:48)
[2020-08-19] MEDS: oxyCODONE HCL 5 MG TABLET PO PRN ×3 (08:18→21:59)
[2020-08-19] MEDS: SACUBITRIL/VALSARTAN 24 MG-26 MG TABLET PO SCH (10:31)
[2020-08-19] MEDS ORDERED: PT OWN MED DRAWER 7, Y5N ONE ×2 (11:50→11:58)
[2020-08-19] MEDS: LEFLUNOMIDE 10 MG TABLET PO SCH (11:56)
[2020-08-19] MEDS: metoPROLOL SUCCINATE 25 MG TAB.SR.24H (FP) PO SCH ×2 (11:56→21:59)
[2020-08-19] MEDS: PRAMIPEXOLE DIHYDROCHLORIDE 0.25 MG TABLET PO SCH ×2 (12:00→22:12)
[2020-08-19 12:41] LABS: BASO % 1.1 % (0-2.0); EOS % 5.1 % (0-4.5); HEMATOCRIT 41.2 % (32.4-45.2); HEMOGLOBIN 13.5 GM/dL (10.7-15.3); LYMPH % 9.9 % (8-40); MCH 30.6 pg (25.7-33.7); MCHC 32.8 g/dl (32.0-36.0); MEAN CELL VOLUME 93.6 fl (80-96); MEAN PLT VOLUME 8.4 fl (7.5-11.1); MONO % 10.4 % (3.8-10.2); NEUT % 73.5 % (42.8-82.8); PLATELET COUNT 129 K/MM3 (134-434); RDW 21.7 % (11.6-15.6); WHITE BLOOD COUNT 6.4 K/mm3 (4.0-10.0)
[2020-08-19 12:59] LABS: POTASSIUM 4.1 mmol/L (3.5-5.1)
[2020-08-19 13:04] LABS: CALCIUM 8.2 mg/dL (8.5-10.1)
[2020-08-19 13:05] LABS: ALBUMIN 2.7 g/dl (3.4-5.0); BLOOD UREA NITROGEN 44.1 mg/dL (7-18); MAGNESIUM 2.3 mg/dL (1.8-2.4)
[2020-08-19 13:09] LABS: BILIRUBIN,TOTAL 0.7 mg/dL (0.2-1); TOT PROT 5.8 g/dl (6.4-8.2)
[2020-08-19] MEDS: RIVAROXABAN 20 MG TABLET PO SCH (17:25)
[2020-08-19 18:51] LABS: INR 1.91 (0.83-1.09)
[2020-08-20] MEDS: oxyCODONE HCL 5 MG TABLET PO PRN ×3 (06:04→18:18)
[2020-08-20] MEDS: FUROSEMIDE 40 MG/4 ML INJECTABLE VIAL IVPUSH SCH ×2 (06:04→18:12)
[2020-08-20] MEDS: metoPROLOL SUCCINATE 25 MG TAB.SR.24H (FP) PO SCH ×2 (09:15→21:17)
[2020-08-20] MEDS ORDERED: PT OWN MED DRAWER 7, Y5N ONE ×3 (10:24→18:37)
[2020-08-20] MEDS: LEFLUNOMIDE 10 MG TABLET PO SCH (10:59)
[2020-08-20] MEDS: PRAMIPEXOLE DIHYDROCHLORIDE 0.25 MG TABLET PO SCH ×2 (13:04→21:17)
[2020-08-20 13:22] LABS: POTASSIUM 4.7 mmol/L (3.5-5.1)
[2020-08-20 13:30] LABS: ALBUMIN 2.9 g/dl (3.4-5.0); CALCIUM 8.6 mg/dL (8.5-10.1); MAGNESIUM 2.3 mg/dL (1.8-2.4)
[2020-08-20 13:33] LABS: CREATININE 1.1 mg/dL (0.55-1.3)
[2020-08-20 13:35] LABS: BILIRUBIN,TOTAL 1.1 mg/dL (0.2-1); TOT PROT 6.3 g/dl (6.4-8.2)
[2020-08-20] MEDS: RIVAROXABAN 20 MG TABLET PO SCH (18:20)
[2020-08-20] MEDS: ZOLPIDEM TARTRATE 5 MG TABLET PO PRN (22:57)
[2020-08-21] MEDS: FUROSEMIDE 40 MG/4 ML INJECTABLE VIAL IVPUSH SCH (06:02)
[2020-08-21] MEDS: oxyCODONE HCL 5 MG TABLET PO PRN (06:34)
[2020-08-21 07:51] LABS: CALCIUM 8.8 mg/dL (8.5-10.1)
[2020-08-21 07:52] LABS: ALBUMIN 2.9 g/dl (3.4-5.0); BLOOD UREA NITROGEN 52.1 mg/dL (7-18)
[2020-08-21 07:55] LABS: BILIRUBIN,TOTAL 0.9 mg/dL (0.2-1); CREATININE 1.2 mg/dL (0.55-1.3); TOT PROT 6.1 g/dl (6.4-8.2)
[2020-08-21] MEDS: metoPROLOL SUCCINATE 25 MG TAB.SR.24H (FP) PO SCH ×2 (09:48→22:08)
[2020-08-21] MEDS: TORSEMIDE 20 MG TABLET (FP) PO SCH (09:49)
[2020-08-21] MEDS: PRAMIPEXOLE DIHYDROCHLORIDE 0.25 MG TABLET PO SCH ×2 (09:49→22:08)
[2020-08-21] MEDS: LEFLUNOMIDE 10 MG TABLET PO SCH (09:49)
[2020-08-21] MEDS: RIVAROXABAN 20 MG TABLET PO SCH (17:14)
[2020-08-21] MEDS: ACETAMINOPHEN 325 MG TABLET (FP) PO PRN (17:18)
[2020-08-21] MEDS ORDERED: ZOLPIDEM TARTRATE 5 MG TABLET PO ONE (21:59)
[2020-08-21] MEDS ORDERED: oxyCODONE HCL 5 MG TABLET PO ONE (22:00)
[2020-08-22] MEDS: LEFLUNOMIDE 10 MG TABLET PO SCH (11:40)
[2020-08-22] MEDS: TORSEMIDE 20 MG TABLET (FP) PO SCH (11:41)
[2020-08-22] MEDS: metoPROLOL SUCCINATE 25 MG TAB.SR.24H (FP) PO SCH ×2 (11:42→21:44)
[2020-08-22] MEDS: PRAMIPEXOLE DIHYDROCHLORIDE 0.25 MG TABLET PO SCH ×2 (11:42→21:43)
[2020-08-22] MEDS: RIVAROXABAN 20 MG TABLET PO SCH (18:32)
[2020-08-22] MEDS: oxyCODONE HCL 5 MG TABLET PO SCH (21:05)
[2020-08-22] MEDS ORDERED: ZOLPIDEM TARTRATE 5 MG TABLET PO ONE (22:00)
[2020-08-23] MEDS: oxyCODONE HCL 5 MG TABLET PO SCH (03:02)
[2020-08-23] MEDS ORDERED: PT OWN MED DRAWER 7, Y5N ONE (11:18)
[2020-08-23] MEDS: PRAMIPEXOLE DIHYDROCHLORIDE 0.25 MG TABLET PO SCH ×2 (11:26→21:24)
[2020-08-23] MEDS: metoPROLOL SUCCINATE 25 MG TAB.SR.24H (FP) PO SCH ×2 (11:26→21:24)
[2020-08-23] MEDS: TORSEMIDE 20 MG TABLET (FP) PO SCH (11:27)
[2020-08-23] MEDS: LEFLUNOMIDE 10 MG TABLET PO SCH (11:27)
[2020-08-23] MEDS: ACETAMINOPHEN 325 MG TABLET (FP) PO PRN (15:09)
[2020-08-23] MEDS: oxyCODONE HCL 5 MG TABLET PO PRN (17:43)
[2020-08-23] MEDS: RIVAROXABAN 20 MG TABLET PO SCH (17:44)
[2020-08-23] MEDS: DOCUSATE SODIUM 100 MG CAPSULE (FP) PO SCH (21:24)
[2020-08-24] MEDS: ACETAMINOPHEN 325 MG TABLET (FP) PO PRN (01:15)
[2020-08-24 07:21] LABS: HEMATOCRIT 45.4 % (32.4-45.2); HEMOGLOBIN 14.9 GM/dL (10.7-15.3); MCH 30.5 pg (25.7-33.7); MCHC 32.9 g/dl (32.0-36.0); MEAN CELL VOLUME 92.9 fl (80-96); MEAN PLT VOLUME 9.4 fl (7.5-11.1); PLATELET COUNT 179 K/MM3 (134-434); RBC 4.89 M/mm3 (3.60-5.2); RDW 23.1 % (11.6-15.6); WHITE BLOOD COUNT 8.4 K/mm3 (4.0-10.0)
[2020-08-24 07:42] LABS: POTASSIUM 4.6 mmol/L (3.5-5.1)
[2020-08-24 07:46] LABS: CALCIUM 8.9 mg/dL (8.5-10.1)
[2020-08-24 07:47] LABS: BLOOD UREA NITROGEN 57.2 mg/dL (7-18)
[2020-08-24 07:51] LABS: BILIRUBIN,TOTAL 1.1 mg/dL (0.2-1); CREATININE 1.3 mg/dL (0.55-1.3); TOT PROT 6.3 g/dl (6.4-8.2)
[2020-08-24] MEDS ORDERED: PT OWN MED DRAWER 7, Y5N ONE (09:31)
[2020-08-24] MEDS: PRAMIPEXOLE DIHYDROCHLORIDE 0.25 MG TABLET PO SCH ×2 (09:34→22:15)
[2020-08-24] MEDS: oxyCODONE HCL 5 MG TABLET PO PRN ×3 (09:34→22:13)
[2020-08-24] MEDS: metoPROLOL SUCCINATE 25 MG TAB.SR.24H (FP) PO SCH ×2 (09:34→22:14)
[2020-08-24] MEDS: TORSEMIDE 20 MG TABLET (FP) PO SCH (09:34)
[2020-08-24] MEDS: LEFLUNOMIDE 10 MG TABLET PO SCH (09:34)
[2020-08-24] MEDS: RIVAROXABAN 20 MG TABLET PO SCH (17:22)
[2020-08-24] MEDS: DOCUSATE SODIUM 100 MG CAPSULE (FP) PO SCH (22:15)
[2020-08-25] MEDS ORDERED: PT OWN MED DRAWER 7, Y5N ONE (09:01)
[2020-08-25] MEDS: LEFLUNOMIDE 10 MG TABLET PO SCH (09:22)
[2020-08-25] MEDS: metoPROLOL SUCCINATE 25 MG TAB.SR.24H (FP) PO SCH ×2 (09:22→23:33)
[2020-08-25] MEDS: PRAMIPEXOLE DIHYDROCHLORIDE 0.25 MG TABLET PO SCH ×2 (09:22→23:33)
[2020-08-25] MEDS: TORSEMIDE 20 MG TABLET (FP) PO SCH (09:22)
[2020-08-25] MEDS ORDERED: FUROSEMIDE 40 MG/4 ML INJECTABLE VIAL IVPUSH ONE (11:25)
[2020-08-25 14:21] LABS: ALBUMIN 3.2 g/dl (3.4-5.0); BILIRUBIN,TOTAL 1.4 mg/dL (0.2-1); BLOOD UREA NITROGEN 48.6 mg/dL (7-18); CALCIUM 9.5 mg/dL (8.5-10.1); CREATININE 1.2 mg/dL (0.55-1.3); POTASSIUM 4.4 mmol/L (3.5-5.1)
[2020-08-25] MEDS ORDERED: CYANOCOBALAMIN (VITAMIN B-12) 1000 MCG/1 ML VIAL IM ONE (15:00)
[2020-08-25 15:18] LABS: HEMATOCRIT 47.1 % (32.4-45.2); HEMOGLOBIN 15.3 GM/dL (10.7-15.3); MCH 30.5 pg (25.7-33.7); MCHC 32.4 g/dl (32.0-36.0); MEAN CELL VOLUME 94.2 fl (80-96); MEAN PLT VOLUME 9.4 fl (7.5-11.1); PLATELET COUNT 142 K/MM3 (134-434); WHITE BLOOD COUNT 21.9 K/mm3 (4.0-10.0)
[2020-08-25] MEDS: FLUCONAZOLE 100 MG TABLET (UD) PO SCH (15:44)
[2020-08-25] MEDS: RIVAROXABAN 20 MG TABLET PO SCH (17:19)
[2020-08-25] MEDS: FUROSEMIDE 40 MG/4 ML INJECTABLE VIAL IVPUSH SCH (17:19)
[2020-08-25 17:44] LABS: ANISOCYTOSIS 3+; MACROCYTOSIS 0
[2020-08-25 23:17] LABS: BLOOD UREA NITROGEN 47.6 mg/dL (7-18); CALCIUM 8.5 mg/dL (8.5-10.1); CREATININE 1.1 mg/dL (0.55-1.3); MAGNESIUM 2.1 mg/dL (1.8-2.4); POTASSIUM 4.5 mmol/L (3.5-5.1)
[2020-08-25] MEDS: DOCUSATE SODIUM 100 MG CAPSULE (FP) PO SCH (23:34)
[2020-08-25] MEDS: oxyCODONE HCL 5 MG TABLET PO PRN (23:34)
[2020-08-25] MEDS: NYSTATIN POWDER 100,000 UNITS/GM - 15 GM TOPICAL POWDER TP SCH (23:34)
[2020-08-26] MEDS: FUROSEMIDE 40 MG/4 ML INJECTABLE VIAL IVPUSH SCH ×2 (06:20→13:11)
[2020-08-26] MEDS: metoPROLOL SUCCINATE 25 MG TAB.SR.24H (FP) PO SCH ×2 (09:15→21:18)
[2020-08-26] MEDS: FLUCONAZOLE 100 MG TABLET (UD) PO SCH (09:15)
[2020-08-26] MEDS: PRAMIPEXOLE DIHYDROCHLORIDE 0.25 MG TABLET PO SCH ×2 (09:15→21:38)
[2020-08-26] MEDS ORDERED: PT OWN MED DRAWER 7, Y5N ONE ×2 (09:16→17:13)
[2020-08-26] MEDS: NYSTATIN POWDER 100,000 UNITS/GM - 15 GM TOPICAL POWDER TP SCH ×2 (09:17→21:18)
[2020-08-26] MEDS: LEFLUNOMIDE 10 MG TABLET PO SCH (09:17)
[2020-08-26 14:00] LABS: HEMATOCRIT 49.1 % (32.4-45.2); MCH 30.3 pg (25.7-33.7); MCHC 32.6 g/dl (32.0-36.0); MEAN CELL VOLUME 92.9 fl (80-96); MEAN PLT VOLUME 8.8 fl (7.5-11.1); PLATELET COUNT 168 K/MM3 (134-434); RBC 5.28 M/mm3 (3.60-5.2); RDW 22.3 % (11.6-15.6); WHITE BLOOD COUNT 19.8 K/mm3 (4.0-10.0)
[2020-08-26 14:23] LABS: POTASSIUM 4.2 mmol/L (3.5-5.1)
[2020-08-26 14:30] LABS: ALBUMIN 2.8 g/dl (3.4-5.0); BLOOD UREA NITROGEN 53.7 mg/dL (7-18)
[2020-08-26 14:33] LABS: CREATININE 1.3 mg/dL (0.55-1.3)
[2020-08-26 14:34] LABS: BILIRUBIN,TOTAL 1.4 mg/dL (0.2-1); TOT PROT 6.4 g/dl (6.4-8.2)
[2020-08-26] MEDS: RIVAROXABAN 20 MG TABLET PO SCH (17:15)
[2020-08-26] MEDS ORDERED: VANCOMYCIN 1 GRAM (PRE-DOCKED) 1,000 MG/250 ML BAG IVPB SCH (18:00)
[2020-08-26] MEDS: DOCUSATE SODIUM 100 MG CAPSULE (FP) PO SCH (21:38)
[2020-08-27] MEDS ORDERED: PT OWN MED DRAWER 7, Y5N ONE (09:13)
[2020-08-27] MEDS: FLUCONAZOLE 100 MG TABLET (UD) PO SCH (09:31)
[2020-08-27] MEDS: metoPROLOL SUCCINATE 25 MG TAB.SR.24H (FP) PO SCH (09:32)
[2020-08-27] MEDS: PRAMIPEXOLE DIHYDROCHLORIDE 0.25 MG TABLET PO SCH ×2 (09:33→21:47)
[2020-08-27] MEDS: LEFLUNOMIDE 10 MG TABLET PO SCH (09:33)
[2020-08-27] MEDS: NYSTATIN POWDER 100,000 UNITS/GM - 15 GM TOPICAL POWDER TP SCH ×2 (09:45→21:46)
[2020-08-27 11:22] LABS: BASO % 0.1 % (0-2.0); EOS % 0.5 % (0-4.5); HEMATOCRIT 37.1 % (32.4-45.2); LYMPH % 1.4 % (8-40); MCH 30.2 pg (25.7-33.7); MCHC 32.5 g/dl (32.0-36.0); MEAN CELL VOLUME 92.8 fl (80-96); MEAN PLT VOLUME 9.2 fl (7.5-11.1); MONO % 5.2 % (3.8-10.2); NEUT % 92.8 % (42.8-82.8); PLATELET COUNT 140 K/MM3 (134-434); RBC 3.99 M/mm3 (3.60-5.2); RDW 21.6 % (11.6-15.6); WHITE BLOOD COUNT 18.9 K/mm3 (4.0-10.0)
[2020-08-27] MEDS: traMADol HCL 50 MG TABLET PO PRN (11:54)
[2020-08-27 11:56] LABS: POTASSIUM 4.2 mmol/L (3.5-5.1)
[2020-08-27 11:57] LABS: BLOOD UREA NITROGEN 61.6 mg/dL (7-18)
[2020-08-27 12:01] LABS: CREATININE 1.4 mg/dL (0.55-1.3)
[2020-08-27 12:03] LABS: TOT PROT 4.9 g/dl (6.4-8.2)
[2020-08-27 12:21] LABS: ANISOCYTOSIS 2+; MACROCYTOSIS 0; OVALOCYTE 1+; PLATELET ESTIMATE DECREASED; TARGET CELLS 1+
[2020-08-27] MEDS ORDERED: FUROSEMIDE 40 MG/4 ML INJECTABLE VIAL IVPUSH SCH (14:00)
[2020-08-27] MEDS: RIVAROXABAN 20 MG TABLET PO SCH (17:54)
[2020-08-27] MEDS: oxyCODONE HCL 5 MG TABLET PO PRN (18:07)
[2020-08-27] MEDS: DOCUSATE SODIUM 100 MG CAPSULE (FP) PO SCH (21:47)
[2020-08-28] MEDS: VANCOMYCIN 1 GRAM (PRE-DOCKED) 1,000 MG/250 ML BAG IVPB SCH ×2 (00:27→13:01)
[2020-08-28 07:51] LABS: BASO % 0.2 % (0-2.0); EOS % 0.8 % (0-4.5); HEMATOCRIT 36.8 % (32.4-45.2); HEMOGLOBIN 12.2 GM/dL (10.7-15.3); LYMPH % 1.7 % (8-40); MCH 30.3 pg (25.7-33.7); MCHC 33.2 g/dl (32.0-36.0); MEAN CELL VOLUME 91.3 fl (80-96); MEAN PLT VOLUME 8.6 fl (7.5-11.1); MONO % 6.2 % (3.8-10.2); NEUT % 91.1 % (42.8-82.8); PLATELET COUNT 138 K/MM3 (134-434); RBC 4.03 M/mm3 (3.60-5.2); WHITE BLOOD COUNT 19.8 K/mm3 (4.0-10.0)
[2020-08-28 07:59] LABS: POTASSIUM 4.5 mmol/L (3.5-5.1)
[2020-08-28 08:01] LABS: BLOOD UREA NITROGEN 66.2 mg/dL (7-18)
[2020-08-28 08:04] LABS: CREATININE 1.6 mg/dL (0.55-1.3)
[2020-08-28 09:56] LABS: ANISOCYTOSIS 2+; MACROCYTOSIS 0; PLATELET ESTIMATE DECREASED
[2020-08-28] MEDS: LEFLUNOMIDE 10 MG TABLET PO SCH (11:40)
[2020-08-28] MEDS: traMADol HCL 50 MG TABLET PO PRN (11:40)
[2020-08-28] MEDS: FLUCONAZOLE 100 MG TABLET (UD) PO SCH (11:40)
[2020-08-28] MEDS: PRAMIPEXOLE DIHYDROCHLORIDE 0.25 MG TABLET PO SCH ×2 (11:41→21:07)
[2020-08-28] MEDS: NYSTATIN POWDER 100,000 UNITS/GM - 15 GM TOPICAL POWDER TP SCH ×2 (11:42→21:07)
[2020-08-28] MEDS: oxyCODONE HCL 5 MG TABLET PO PRN ×2 (13:03→22:15)
[2020-08-28] MEDS ORDERED: DEXTROSE 5%-WATER 100 ML IVPB ONE ×2 (18:17→18:25)
[2020-08-28] MEDS: RIVAROXABAN 20 MG TABLET PO SCH (18:22)
[2020-08-28] MEDS: CEFTRIAXONE 2 GM in DEXTROSE 5%-WATER 2 GM/100 ML BAG IVPB SCH (18:26)
[2020-08-28 19:23] LABS: EPI CELLS 21 /uL (0-25.1); HYALINE CASTS 4 /uL (0-3.1); URINE APPEARANCE CLOUDY; URINE BACTERIA 286 /uL (0-1359); URINE BILIRUBIN 1+ (NEGATIVE); URINE COLOR DK YELLOW; URINE GLUCOSE (UA) NEGATIVE (NEGATIVE); URINE KETONE TRACE (NEGATIVE); URINE LEUK ESTERASE 2+ (NEGATIVE); URINE NITRITE NEGATIVE (NEGATIVE); URINE PROTEIN TRACE (NEGATIVE); URINE WBC 275 /uL (0-25.8)
[2020-08-28] MEDS: CLINDAMYCIN 600MG PREMIX IVPB 600 MG/50 ML BAG IVPB SCH (20:05)
[2020-08-28 20:10] LABS: URINE RBC 38.1 /uL (0-23.9)
[2020-08-28] MEDS: DOCUSATE SODIUM 100 MG CAPSULE (FP) PO SCH (21:07)
[2020-08-29] MEDS: CLINDAMYCIN 600MG PREMIX IVPB 600 MG/50 ML BAG IVPB SCH ×3 (02:11→18:03)
[2020-08-29] MEDS ORDERED: PT OWN MED DRAWER 7, Y5N ONE ×2 (08:50→11:54)
[2020-08-29] MEDS: oxyCODONE HCL 5 MG TABLET PO PRN ×2 (09:00→18:03)
[2020-08-29] MEDS: PRAMIPEXOLE DIHYDROCHLORIDE 0.25 MG TABLET PO SCH ×2 (09:01→22:14)
[2020-08-29] MEDS: MULTIVITAMINS (DAILY MVI) TABLET (FP) PO SCH (09:01)
[2020-08-29] MEDS: FLUCONAZOLE 100 MG TABLET (UD) PO SCH (09:01)
[2020-08-29] MEDS: NYSTATIN POWDER 100,000 UNITS/GM - 15 GM TOPICAL POWDER TP SCH ×2 (09:02→22:15)
[2020-08-29] MEDS: CEFTRIAXONE 2 GM in DEXTROSE 5%-WATER 2 GM/100 ML BAG IVPB SCH (11:51)
[2020-08-29] MEDS: traMADol HCL 50 MG TABLET PO PRN ×2 (12:02→22:21)
[2020-08-29] MEDS: LEFLUNOMIDE 10 MG TABLET PO SCH (12:03)
[2020-08-29] MEDS: RIVAROXABAN 20 MG TABLET PO SCH (18:03)
[2020-08-29 18:39] LABS: BASO % 0.2 % (0-2.0); HEMATOCRIT 36.6 % (32.4-45.2); HEMOGLOBIN 11.9 GM/dL (10.7-15.3); LYMPH % 3.1 % (8-40); MCH 29.8 pg (25.7-33.7); MCHC 32.5 g/dl (32.0-36.0); MEAN CELL VOLUME 91.7 fl (80-96); MEAN PLT VOLUME 9.2 fl (7.5-11.1); MONO % 8.2 % (3.8-10.2); NEUT % 85.5 % (42.8-82.8); PLATELET COUNT 142 K/MM3 (134-434); RBC 3.99 M/mm3 (3.60-5.2); RDW 20.4 % (11.6-15.6); WHITE BLOOD COUNT 19.9 K/mm3 (4.0-10.0)
[2020-08-29 20:05] LABS: ANISOCYTOSIS 2+; MACROCYTOSIS 1+; PLATELET ESTIMATE DECREASED; TARGET CELLS 1+
[2020-08-29] MEDS: DOCUSATE SODIUM 100 MG CAPSULE (FP) PO SCH (22:14)
[2020-08-29] MEDS: SENNOSIDES 8.6MG TABLET (FP) PO PRN (22:21)
[2020-08-30] MEDS: CLINDAMYCIN 600MG PREMIX IVPB 600 MG/50 ML BAG IVPB SCH ×3 (02:48→18:22)
[2020-08-30] MEDS ORDERED: DEXTROSE 5%-WATER 100 ML IVPB ONE (09:17)
[2020-08-30 09:19] LABS: BASO % 0.3 % (0-2.0); EOS % 2.9 % (0-4.5); HEMATOCRIT 37.4 % (32.4-45.2); HEMOGLOBIN 12.2 GM/dL (10.7-15.3); LYMPH % 3.6 % (8-40); MCH 29.9 pg (25.7-33.7); MCHC 32.7 g/dl (32.0-36.0); MEAN CELL VOLUME 91.5 fl (80-96); MEAN PLT VOLUME 8.9 fl (7.5-11.1); MONO % 5.2 % (3.8-10.2); PLATELET COUNT 153 K/MM3 (134-434); RBC 4.09 M/mm3 (3.60-5.2); RDW 20.3 % (11.6-15.6); WHITE BLOOD COUNT 17.1 K/mm3 (4.0-10.0)
[2020-08-30] MEDS ORDERED: PT OWN MED DRAWER 7, Y5N ONE ×2 (09:25→14:36)
[2020-08-30 09:42] LABS: POTASSIUM 5.4 mmol/L (3.5-5.1)
[2020-08-30] MEDS: LEFLUNOMIDE 10 MG TABLET PO SCH (09:49)
[2020-08-30] MEDS: oxyCODONE HCL 5 MG TABLET PO PRN ×2 (09:50→18:22)
[2020-08-30] MEDS: MULTIVITAMINS (DAILY MVI) TABLET (FP) PO SCH (09:50)
[2020-08-30] MEDS: FLUCONAZOLE 100 MG TABLET (UD) PO SCH (09:50)
[2020-08-30] MEDS: PRAMIPEXOLE DIHYDROCHLORIDE 0.25 MG TABLET PO SCH ×2 (09:50→22:55)
[2020-08-30 10:11] LABS: BLOOD UREA NITROGEN 87.8 mg/dL (7-18)
[2020-08-30 10:12] LABS: BILIRUBIN,TOTAL 1.2 mg/dL (0.2-1)
[2020-08-30 10:14] LABS: CALCIUM 8.8 mg/dL (8.5-10.1); CREATININE 2.1 mg/dL (0.55-1.3)
[2020-08-30 10:15] LABS: ALBUMIN 1.8 g/dl (3.4-5.0)
[2020-08-30] MEDS: CEFTRIAXONE 2 GM in DEXTROSE 5%-WATER 2 GM/100 ML BAG IVPB SCH (12:00)
[2020-08-30] MEDS: traMADol HCL 50 MG TABLET PO PRN (12:10)
[2020-08-30] MEDS: SENNOSIDES 8.6MG TABLET (FP) PO PRN (12:10)
[2020-08-30] MEDS: NYSTATIN POWDER 100,000 UNITS/GM - 15 GM TOPICAL POWDER TP SCH ×2 (14:38→22:55)
[2020-08-30] MEDS: SILVER SULFADIAZINE 1% TOP CREAM 400 GM JAR TP SCH (14:38)
[2020-08-30 14:45] LABS: ANISOCYTOSIS 1+; MACROCYTOSIS 1+; PLATELET ESTIMATE DECREASED
[2020-08-30] MEDS ORDERED: SODIUM ZIRCONIUM CYCLOSILICATE (LOKELMA) 5 GM PACKET PO ONE ×2 (16:15→20:00)
[2020-08-30] MEDS: SODIUM CHLORIDE 1,000 ML IV SCH (18:22)
[2020-08-30] MEDS: RIVAROXABAN 20 MG TABLET PO SCH (18:22)
[2020-08-30] MEDS: DOCUSATE SODIUM 100 MG CAPSULE (FP) PO SCH (22:55)
[2020-08-31] MEDS: CLINDAMYCIN 600MG PREMIX IVPB 600 MG/50 ML BAG IVPB SCH ×3 (01:19→17:10)
[2020-08-31] MEDS: oxyCODONE HCL 5 MG TABLET PO PRN ×3 (01:39→23:34)
[2020-08-31] MEDS ORDERED: DEXTROSE 5%-WATER 100 ML IVPB ONE (10:35)
[2020-08-31] MEDS ORDERED: FLUCONAZOLE 100 MG/NS 50 ML IVPB ONE (10:38)
[2020-08-31] MEDS: TAMSULOSIN HCL 0.4 MG CAP PO SCH (10:45)
[2020-08-31] MEDS: PRAMIPEXOLE DIHYDROCHLORIDE 0.25 MG TABLET PO SCH ×2 (10:45→23:29)
[2020-08-31] MEDS: NYSTATIN POWDER 100,000 UNITS/GM - 15 GM TOPICAL POWDER TP SCH ×2 (10:45→23:31)
[2020-08-31] MEDS: MULTIVITAMINS (DAILY MVI) TABLET (FP) PO SCH (10:46)
[2020-08-31] MEDS: SILVER SULFADIAZINE 1% TOP CREAM 400 GM JAR TP SCH (10:46)
[2020-08-31] MEDS: CEFTRIAXONE 2 GM in DEXTROSE 5%-WATER 2 GM/100 ML BAG IVPB SCH (10:46)
[2020-08-31] MEDS: LEFLUNOMIDE 10 MG TABLET PO SCH (10:47)
[2020-08-31] MEDS: FLUCONAZOLE 100 MG TABLET (UD) PO SCH (14:05)
[2020-08-31] MEDS: SODIUM CHLORIDE 1,000 ML IV SCH (16:44)
[2020-08-31] MEDS: RIVAROXABAN 20 MG TABLET PO SCH (17:10)
[2020-08-31 21:09] LABS: BASO % 0.2 % (0-2.0); EOS % 2.4 % (0-4.5); HEMATOCRIT 36.5 % (32.4-45.2); HEMOGLOBIN 11.9 GM/dL (10.7-15.3); LYMPH % 4.4 % (8-40); MCHC 32.7 g/dl (32.0-36.0); MEAN CELL VOLUME 91.8 fl (80-96); MEAN PLT VOLUME 8.4 fl (7.5-11.1); PLATELET COUNT 168 K/MM3 (134-434); RBC 3.97 M/mm3 (3.60-5.2); RDW 19.9 % (11.6-15.6); WHITE BLOOD COUNT 13.5 K/mm3 (4.0-10.0)
[2020-08-31 21:22] LABS: POTASSIUM 4.9 mmol/L (3.5-5.1)
[2020-08-31 21:27] LABS: ALBUMIN 1.9 g/dl (3.4-5.0); BLOOD UREA NITROGEN 92.4 mg/dL (7-18)
[2020-08-31 21:31] LABS: BILIRUBIN,TOTAL 0.7 mg/dL (0.2-1); TOT PROT 5.2 g/dl (6.4-8.2)
[2020-08-31] MEDS ORDERED: SODIUM CHLORIDE 1,000 ML IV SCH (23:00)
[2020-08-31] MEDS: DOCUSATE SODIUM 100 MG CAPSULE (FP) PO SCH (23:29)
[2020-09-01] MEDS: CLINDAMYCIN 600MG PREMIX IVPB 600 MG/50 ML BAG IVPB SCH ×2 (03:22→10:54)
[2020-09-01 08:33] LABS: BASO % 0.4 % (0-2.0); EOS % 2.3 % (0-4.5); HEMATOCRIT 34.8 % (32.4-45.2); HEMOGLOBIN 11.5 GM/dL (10.7-15.3); LYMPH % 6.1 % (8-40); MCH 29.5 pg (25.7-33.7); MCHC 32.9 g/dl (32.0-36.0); MEAN CELL VOLUME 89.6 fl (80-96); MEAN PLT VOLUME 8.3 fl (7.5-11.1); NEUT % 86.2 % (42.8-82.8); PLATELET COUNT 184 K/MM3 (134-434); RBC 3.89 M/mm3 (3.60-5.2); RDW 19.7 % (11.6-15.6); WHITE BLOOD COUNT 11.7 K/mm3 (4.0-10.0)
[2020-09-01 08:53] LABS: POTASSIUM 4.3 mmol/L (3.5-5.1)
[2020-09-01 09:07] LABS: BLOOD UREA NITROGEN 95.2 mg/dL (7-18)
[2020-09-01 09:09] LABS: CALCIUM 8.2 mg/dL (8.5-10.1)
[2020-09-01 09:12] LABS: CREATININE 1.8 mg/dL (0.55-1.3)
[2020-09-01 09:14] LABS: BILIRUBIN,TOTAL 0.6 mg/dL (0.2-1); TOT PROT 5.2 g/dl (6.4-8.2)
[2020-09-01] MEDS: TAMSULOSIN HCL 0.4 MG CAP PO SCH (10:53)
[2020-09-01] MEDS: MULTIVITAMINS (DAILY MVI) TABLET (FP) PO SCH (10:53)
[2020-09-01] MEDS: PRAMIPEXOLE DIHYDROCHLORIDE 0.25 MG TABLET PO SCH ×2 (10:54→23:32)
[2020-09-01] MEDS: NYSTATIN POWDER 100,000 UNITS/GM - 15 GM TOPICAL POWDER TP SCH ×2 (10:54→23:32)
[2020-09-01] MEDS: SILVER SULFADIAZINE 1% TOP CREAM 400 GM JAR TP SCH (10:54)
[2020-09-01] MEDS ORDERED: SODIUM CHLORIDE 1,000 ML IV SCH (12:00)
[2020-09-01] MEDS ORDERED: DEXTROSE 5%-WATER 100 ML IVPB ONE (12:20)
[2020-09-01] MEDS: CEFTRIAXONE 2 GM in DEXTROSE 5%-WATER 2 GM/100 ML BAG IVPB SCH (12:23)
[2020-09-01] MEDS: LEFLUNOMIDE 10 MG TABLET PO SCH (12:24)
[2020-09-01] MEDS: RIVAROXABAN 20 MG TABLET PO SCH (18:32)
[2020-09-01] MEDS: DOCUSATE SODIUM 100 MG CAPSULE (FP) PO SCH (23:32)
[2020-09-02] MEDS: oxyCODONE HCL 5 MG TABLET PO PRN ×2 (00:29→21:14)
[2020-09-02 07:46] LABS: BASO % 0.4 % (0-2.0); EOS % 2.9 % (0-4.5); HEMATOCRIT 36.3 % (32.4-45.2); HEMOGLOBIN 12.1 GM/dL (10.7-15.3); LYMPH % 7.7 % (8-40); MCH 30.5 pg (25.7-33.7); MCHC 33.4 g/dl (32.0-36.0); MEAN CELL VOLUME 91.3 fl (80-96); MEAN PLT VOLUME 8.3 fl (7.5-11.1); PLATELET COUNT 190 K/MM3 (134-434); RBC 3.98 M/mm3 (3.60-5.2); RDW 20.4 % (11.6-15.6); WHITE BLOOD COUNT 9.4 K/mm3 (4.0-10.0)
[2020-09-02 08:05] LABS: POTASSIUM 4.4 mmol/L (3.5-5.1)
[2020-09-02 08:10] LABS: CALCIUM 8.1 mg/dL (8.5-10.1)
[2020-09-02 08:11] LABS: BLOOD UREA NITROGEN 77.9 mg/dL (7-18)
[2020-09-02 08:14] LABS: CREATININE 1.4 mg/dL (0.55-1.3)
[2020-09-02 08:15] LABS: BILIRUBIN,TOTAL 0.9 mg/dL (0.2-1); TOT PROT 5.4 g/dl (6.4-8.2)
[2020-09-02] MEDS ORDERED: DEXTROSE 5%-WATER 100 ML IVPB ONE (08:58)
[2020-09-02] MEDS: MULTIVITAMINS (DAILY MVI) TABLET (FP) PO SCH (10:33)
[2020-09-02] MEDS: PRAMIPEXOLE DIHYDROCHLORIDE 0.25 MG TABLET PO SCH ×2 (10:33→21:13)
[2020-09-02] MEDS: TAMSULOSIN HCL 0.4 MG CAP PO SCH (10:33)
[2020-09-02] MEDS: NYSTATIN POWDER 100,000 UNITS/GM - 15 GM TOPICAL POWDER TP SCH ×2 (10:34→21:13)
[2020-09-02] MEDS: CEFTRIAXONE 2 GM in DEXTROSE 5%-WATER 2 GM/100 ML BAG IVPB SCH (10:34)
[2020-09-02] MEDS: SILVER SULFADIAZINE 1% TOP CREAM 400 GM JAR TP SCH (10:34)
[2020-09-02] MEDS ORDERED: PT OWN MED DRAWER 7, Y5N ONE (10:37)
[2020-09-02] MEDS: LEFLUNOMIDE 10 MG TABLET PO SCH (10:38)
[2020-09-02] MEDS: RIVAROXABAN 20 MG TABLET PO SCH (18:01)
[2020-09-02] MEDS: DOCUSATE SODIUM 100 MG CAPSULE (FP) PO SCH (21:13)
[2020-09-03] MEDS ORDERED: PT OWN MED DRAWER 7, Y5N ONE (09:17)
[2020-09-03] MEDS ORDERED: DEXTROSE 5%-WATER 100 ML IVPB ONE (09:18)
[2020-09-03] MEDS: PRAMIPEXOLE DIHYDROCHLORIDE 0.25 MG TABLET PO SCH ×2 (10:02→21:58)
[2020-09-03] MEDS: MULTIVITAMINS (DAILY MVI) TABLET (FP) PO SCH (10:02)
[2020-09-03] MEDS: TAMSULOSIN HCL 0.4 MG CAP PO SCH (10:02)
[2020-09-03] MEDS: LEFLUNOMIDE 10 MG TABLET PO SCH (10:03)
[2020-09-03] MEDS: oxyCODONE HCL 5 MG TABLET PO PRN (10:04)
[2020-09-03] MEDS: CEFTRIAXONE 2 GM in DEXTROSE 5%-WATER 2 GM/100 ML BAG IVPB SCH (10:05)
[2020-09-03] MEDS: SILVER SULFADIAZINE 1% TOP CREAM 400 GM JAR TP SCH (10:05)
[2020-09-03] MEDS: NYSTATIN POWDER 100,000 UNITS/GM - 15 GM TOPICAL POWDER TP SCH ×2 (10:05→21:59)
[2020-09-03] MEDS: RIVAROXABAN 20 MG TABLET PO SCH (17:19)
[2020-09-03] MEDS ORDERED: diphenhydrAMINE HCL 25 MG CAPSULE (FP) PO ONE (21:18)
[2020-09-03] MEDS: DOCUSATE SODIUM 100 MG CAPSULE (FP) PO SCH (21:58)
[2020-09-03] MEDS: ACETAMINOPHEN 325 MG TABLET (FP) PO PRN (21:59)
[2020-09-04] MEDS ORDERED: PT OWN MED DRAWER 7, Y5N ONE (08:58)
[2020-09-04] MEDS ORDERED: DEXTROSE 5%-WATER 100 ML IVPB ONE (08:59)
[2020-09-04] MEDS: CEFTRIAXONE 2 GM in DEXTROSE 5%-WATER 2 GM/100 ML BAG IVPB SCH (09:45)
[2020-09-04] MEDS: TAMSULOSIN HCL 0.4 MG CAP PO SCH (09:46)
[2020-09-04] MEDS: SILVER SULFADIAZINE 1% TOP CREAM 400 GM JAR TP SCH (09:46)
[2020-09-04] MEDS: LEFLUNOMIDE 10 MG TABLET PO SCH (09:46)
[2020-09-04] MEDS: PRAMIPEXOLE DIHYDROCHLORIDE 0.25 MG TABLET PO SCH ×2 (09:46→22:10)
[2020-09-04] MEDS: MULTIVITAMINS (DAILY MVI) TABLET (FP) PO SCH (09:46)
[2020-09-04] MEDS: NYSTATIN POWDER 100,000 UNITS/GM - 15 GM TOPICAL POWDER TP SCH ×2 (09:46→22:10)
[2020-09-04 11:40] LABS: POTASSIUM 4.7 mmol/L (3.5-5.1)
[2020-09-04 11:41] LABS: CALCIUM 8.2 mg/dL (8.5-10.1)
[2020-09-04 11:42] LABS: ALBUMIN 2.1 g/dl (3.4-5.0)
[2020-09-04 11:45] LABS: CREATININE 0.9 mg/dL (0.55-1.3)
[2020-09-04 11:47] LABS: TOT PROT 5.2 g/dl (6.4-8.2)
[2020-09-04 12:08] LABS: BILIRUBIN,TOTAL 0.6 mg/dL (0.2-1); BLOOD UREA NITROGEN 49.8 mg/dL (7-18)
[2020-09-04] MEDS: ACETAMINOPHEN 325 MG TABLET (FP) PO PRN ×2 (14:27→22:08)
[2020-09-04] MEDS: RIVAROXABAN 20 MG TABLET PO SCH (17:05)
[2020-09-04] MEDS: DOCUSATE SODIUM 100 MG CAPSULE (FP) PO SCH (22:09)
[2020-09-05] MEDS ORDERED: DEXTROSE 5%-WATER 100 ML IVPB ONE (08:19)
[2020-09-05 08:29] LABS: POTASSIUM 4.9 mmol/L (3.5-5.1)
[2020-09-05 08:34] LABS: CALCIUM 8.3 mg/dL (8.5-10.1)
[2020-09-05 08:38] LABS: CREATININE 0.9 mg/dL (0.55-1.3)
[2020-09-05] MEDS: TAMSULOSIN HCL 0.4 MG CAP PO SCH (09:13)
[2020-09-05] MEDS: MULTIVITAMINS (DAILY MVI) TABLET (FP) PO SCH (09:13)
[2020-09-05] MEDS: CEFTRIAXONE 2 GM in DEXTROSE 5%-WATER 2 GM/100 ML BAG IVPB SCH (09:13)
[2020-09-05] MEDS: PRAMIPEXOLE DIHYDROCHLORIDE 0.25 MG TABLET PO SCH ×2 (09:13→21:45)
[2020-09-05] MEDS ORDERED: TORSEMIDE 20 MG TABLET (FP) PO SCH (10:00)
[2020-09-05] MEDS: SILVER SULFADIAZINE 1% TOP CREAM 400 GM JAR TP SCH (10:05)
[2020-09-05] MEDS: NYSTATIN POWDER 100,000 UNITS/GM - 15 GM TOPICAL POWDER TP SCH (10:05)
[2020-09-05] MEDS: LEFLUNOMIDE 10 MG TABLET PO SCH (10:46)
[2020-09-05] MEDS: RIVAROXABAN 20 MG TABLET PO SCH (17:32)
[2020-09-05] MEDS: ACETAMINOPHEN 325 MG TABLET (FP) PO PRN (21:43)
[2020-09-05] MEDS: DOCUSATE SODIUM 100 MG CAPSULE (FP) PO SCH (21:45)
[2020-09-06] MEDS ORDERED: DEXTROSE 5%-WATER 100 ML IVPB ONE (09:01)
[2020-09-06] MEDS: TAMSULOSIN HCL 0.4 MG CAP PO SCH (09:14)
[2020-09-06] MEDS: MULTIVITAMINS (DAILY MVI) TABLET (FP) PO SCH (09:15)
[2020-09-06] MEDS: ACETAMINOPHEN 325 MG TABLET (FP) PO PRN ×2 (09:15→18:16)
[2020-09-06] MEDS: CEFTRIAXONE 2 GM in DEXTROSE 5%-WATER 2 GM/100 ML BAG IVPB SCH (09:20)
[2020-09-06] MEDS: PRAMIPEXOLE DIHYDROCHLORIDE 0.25 MG TABLET PO SCH ×2 (11:29→22:29)
[2020-09-06] MEDS: NYSTATIN POWDER 100,000 UNITS/GM - 15 GM TOPICAL POWDER TP SCH ×3 (11:29→22:29)
[2020-09-06] MEDS: LEFLUNOMIDE 10 MG TABLET PO SCH (11:29)
[2020-09-06] MEDS: SILVER SULFADIAZINE 1% TOP CREAM 400 GM JAR TP SCH (11:30)
[2020-09-06] MEDS: FUROSEMIDE 40 MG/4 ML INJECTABLE VIAL IVPUSH SCH (14:52)
[2020-09-06] MEDS: RIVAROXABAN 20 MG TABLET PO SCH (18:00)
[2020-09-06] MEDS ORDERED: oxyCODONE HCL 5 MG TABLET PO ONE (19:59)
[2020-09-06] MEDS ORDERED: PT OWN MED DRAWER 7, Y5N ONE (22:18)
[2020-09-06] MEDS: DOCUSATE SODIUM 100 MG CAPSULE (FP) PO SCH ×2 (22:29→22:32)
[2020-09-07] MEDS: FUROSEMIDE 40 MG/4 ML INJECTABLE VIAL IVPUSH SCH ×2 (06:55→14:34)
[2020-09-07] MEDS ORDERED: DEXTROSE 5%-WATER 100 ML IVPB ONE (08:59)
[2020-09-07] MEDS: TAMSULOSIN HCL 0.4 MG CAP PO SCH (09:10)
[2020-09-07] MEDS: MULTIVITAMINS (DAILY MVI) TABLET (FP) PO SCH (09:10)
[2020-09-07] MEDS: NYSTATIN POWDER 100,000 UNITS/GM - 15 GM TOPICAL POWDER TP SCH ×2 (09:10→22:31)
[2020-09-07] MEDS: SILVER SULFADIAZINE 1% TOP CREAM 400 GM JAR TP SCH (09:10)
[2020-09-07] MEDS: CEFTRIAXONE 2 GM in DEXTROSE 5%-WATER 2 GM/100 ML BAG IVPB SCH (09:11)
[2020-09-07] MEDS: PRAMIPEXOLE DIHYDROCHLORIDE 0.25 MG TABLET PO SCH ×2 (09:12→22:31)
[2020-09-07] MEDS: LEFLUNOMIDE 10 MG TABLET PO SCH (10:55)
[2020-09-07 13:49] LABS: BASO % 0.9 % (0-2.0); EOS % 1.5 % (0-4.5); HEMATOCRIT 36.1 % (32.4-45.2); HEMOGLOBIN 11.5 GM/dL (10.7-15.3); LYMPH % 12.8 % (8-40); MCH 30.2 pg (25.7-33.7); MCHC 31.9 g/dl (32.0-36.0); MEAN CELL VOLUME 94.9 fl (80-96); MEAN PLT VOLUME 8.8 fl (7.5-11.1); MONO % 7.7 % (3.8-10.2); NEUT % 77.1 % (42.8-82.8); PLATELET COUNT 303 K/MM3 (134-434); RBC 3.81 M/mm3 (3.60-5.2); RDW 20.5 % (11.6-15.6); WHITE BLOOD COUNT 8.6 K/mm3 (4.0-10.0)
[2020-09-07 14:09] LABS: POTASSIUM 4.8 mmol/L (3.5-5.1)
[2020-09-07 14:10] LABS: ANISOCYTOSIS 1+; MACROCYTOSIS 0; PLATELET ESTIMATE NORMAL
[2020-09-07 14:11] LABS: ALBUMIN 2.4 g/dl (3.4-5.0); BLOOD UREA NITROGEN 54.6 mg/dL (7-18); CALCIUM 8.5 mg/dL (8.5-10.1)
[2020-09-07 14:16] LABS: BILIRUBIN,TOTAL 0.5 mg/dL (0.2-1); TOT PROT 6.1 g/dl (6.4-8.2)
[2020-09-07] MEDS: RIVAROXABAN 20 MG TABLET PO SCH (17:03)
[2020-09-07] MEDS: traMADol HCL 50 MG TABLET PO PRN ×2 (17:03→22:56)
[2020-09-07] MEDS: DOCUSATE SODIUM 100 MG CAPSULE (FP) PO SCH (22:31)
[2020-09-08] MEDS: FUROSEMIDE 40 MG/4 ML INJECTABLE VIAL IVPUSH SCH ×2 (05:10→18:19)
[2020-09-08 07:13] LABS: BASO % 1.3 % (0-2.0); EOS % 1.9 % (0-4.5); HEMATOCRIT 33.3 % (32.4-45.2); LYMPH % 12.7 % (8-40); MCH 31.1 pg (25.7-33.7); MCHC 32.9 g/dl (32.0-36.0); MEAN CELL VOLUME 94.6 fl (80-96); MEAN PLT VOLUME 9.2 fl (7.5-11.1); MONO % 8.6 % (3.8-10.2); NEUT % 75.5 % (42.8-82.8); PLATELET COUNT 248 K/MM3 (134-434); RBC 3.52 M/mm3 (3.60-5.2); RDW 20.8 % (11.6-15.6); WHITE BLOOD COUNT 7.7 K/mm3 (4.0-10.0)
[2020-09-08 07:34] LABS: POTASSIUM 4.9 mmol/L (3.5-5.1)
[2020-09-08 07:41] LABS: CALCIUM 8.5 mg/dL (8.5-10.1)
[2020-09-08 07:42] LABS: ALBUMIN 2.4 g/dl (3.4-5.0); BLOOD UREA NITROGEN 57.4 mg/dL (7-18)
[2020-09-08 07:45] LABS: CREATININE 0.9 mg/dL (0.55-1.3)
[2020-09-08 07:46] LABS: BILIRUBIN,TOTAL 1.2 mg/dL (0.2-1); TOT PROT 5.8 g/dl (6.4-8.2)
[2020-09-08] MEDS ORDERED: PT OWN MED DRAWER 7, Y5N ONE ×3 (10:10→21:43)
[2020-09-08] MEDS ORDERED: DEXTROSE 5%-WATER 100 ML IVPB ONE (10:11)
[2020-09-08] MEDS: TAMSULOSIN HCL 0.4 MG CAP PO SCH (10:17)
[2020-09-08] MEDS: CEFTRIAXONE 2 GM in DEXTROSE 5%-WATER 2 GM/100 ML BAG IVPB SCH (10:17)
[2020-09-08] MEDS: LEFLUNOMIDE 10 MG TABLET PO SCH (10:18)
[2020-09-08] MEDS: PRAMIPEXOLE DIHYDROCHLORIDE 0.25 MG TABLET PO SCH ×2 (10:18→21:45)
[2020-09-08] MEDS: MULTIVITAMINS (DAILY MVI) TABLET (FP) PO SCH (10:18)
[2020-09-08] MEDS: SILVER SULFADIAZINE 1% TOP CREAM 400 GM JAR TP SCH (10:19)
[2020-09-08] MEDS: NYSTATIN POWDER 100,000 UNITS/GM - 15 GM TOPICAL POWDER TP SCH ×2 (10:19→21:45)
[2020-09-08] MEDS: RIVAROXABAN 20 MG TABLET PO SCH (18:19)
[2020-09-08] MEDS: DOCUSATE SODIUM 100 MG CAPSULE (FP) PO SCH (21:45)
[2020-09-09] MEDS: traMADol HCL 50 MG TABLET PO PRN ×2 (00:49→14:18)
[2020-09-09] MEDS: FUROSEMIDE 40 MG/4 ML INJECTABLE VIAL IVPUSH SCH ×2 (05:48→14:18)
[2020-09-09] MEDS ORDERED: FLUCONAZOLE 100 MG TABLET (UD) PO SCH (10:00)
[2020-09-09 10:35] LABS: BASO % 1.4 % (0-2.0); EOS % 1.6 % (0-4.5); HEMATOCRIT 32.7 % (32.4-45.2); HEMOGLOBIN 10.6 GM/dL (10.7-15.3); MCH 31.2 pg (25.7-33.7); MCHC 32.3 g/dl (32.0-36.0); MEAN CELL VOLUME 96.4 fl (80-96); MEAN PLT VOLUME 9.4 fl (7.5-11.1); MONO % 10.7 % (3.8-10.2); NEUT % 72.3 % (42.8-82.8); PLATELET COUNT 225 K/MM3 (134-434); RBC 3.39 M/mm3 (3.60-5.2); RDW 21.9 % (11.6-15.6); WHITE BLOOD COUNT 6.6 K/mm3 (4.0-10.0)
[2020-09-09 10:49] LABS: POTASSIUM 4.5 mmol/L (3.5-5.1)
[2020-09-09 10:52] LABS: CALCIUM 8.5 mg/dL (8.5-10.1)
[2020-09-09] MEDS ORDERED: PT OWN MED DRAWER 7, Y5N ONE ×2 (10:52→21:48)
[2020-09-09] MEDS ORDERED: DEXTROSE 5%-WATER 100 ML IVPB ONE (10:53)
[2020-09-09 10:54] LABS: ALBUMIN 2.4 g/dl (3.4-5.0); BLOOD UREA NITROGEN 58.4 mg/dL (7-18)
[2020-09-09 10:57] LABS: CREATININE 0.9 mg/dL (0.55-1.3)
[2020-09-09 10:58] LABS: BILIRUBIN,TOTAL 0.8 mg/dL (0.2-1); TOT PROT 5.6 g/dl (6.4-8.2)
[2020-09-09] MEDS: TAMSULOSIN HCL 0.4 MG CAP PO SCH (11:01)
[2020-09-09] MEDS: CEFTRIAXONE 2 GM in DEXTROSE 5%-WATER 2 GM/100 ML BAG IVPB SCH (11:01)
[2020-09-09] MEDS: MULTIVITAMINS (DAILY MVI) TABLET (FP) PO SCH (11:02)
[2020-09-09] MEDS: LEFLUNOMIDE 10 MG TABLET PO SCH (11:02)
[2020-09-09] MEDS: PRAMIPEXOLE DIHYDROCHLORIDE 0.25 MG TABLET PO SCH ×2 (11:03→22:38)
[2020-09-09] MEDS: NYSTATIN POWDER 100,000 UNITS/GM - 15 GM TOPICAL POWDER TP SCH ×2 (11:03→22:38)
[2020-09-09] MEDS: SILVER SULFADIAZINE 1% TOP CREAM 400 GM JAR TP SCH (11:03)
[2020-09-09] MEDS: RIVAROXABAN 20 MG TABLET PO SCH (18:05)
[2020-09-09] MEDS: ACETAMINOPHEN 325 MG TABLET (FP) PO PRN (18:06)
[2020-09-09] MEDS: DOCUSATE SODIUM 100 MG CAPSULE (FP) PO SCH (22:38)
[2020-09-10] MEDS: traMADol HCL 50 MG TABLET PO PRN ×2 (00:29→21:56)
[2020-09-10] MEDS ORDERED: METOLAZONE 2.5 MG TABLET (FP) PO SCH (05:00)
[2020-09-10] MEDS: FUROSEMIDE 40 MG/4 ML INJECTABLE VIAL IVPUSH SCH ×2 (06:45)
[2020-09-10] MEDS ORDERED: DEXTROSE 5%-WATER 100 ML IVPB ONE (09:16)
[2020-09-10 09:40] LABS: BASO % 2.4 % (0-2.0); HEMATOCRIT 34.3 % (32.4-45.2); LYMPH % 15.2 % (8-40); MCHC 32.2 g/dl (32.0-36.0); MEAN CELL VOLUME 96.4 fl (80-96); MEAN PLT VOLUME 9.7 fl (7.5-11.1); MONO % 9.6 % (3.8-10.2); NEUT % 70.8 % (42.8-82.8); PLATELET COUNT 235 K/MM3 (134-434); RBC 3.55 M/mm3 (3.60-5.2); RDW 21.5 % (11.6-15.6); WHITE BLOOD COUNT 6.5 K/mm3 (4.0-10.0)
[2020-09-10 10:14] LABS: ALBUMIN 2.6 g/dl (3.4-5.0); BILIRUBIN,TOTAL 0.6 mg/dL (0.2-1); BLOOD UREA NITROGEN 60.6 mg/dL (7-18); CALCIUM 8.5 mg/dL (8.5-10.1); POTASSIUM 4.3 mmol/L (3.5-5.1)
[2020-09-10] MEDS: LEFLUNOMIDE 10 MG TABLET PO SCH (10:21)
[2020-09-10] MEDS: TAMSULOSIN HCL 0.4 MG CAP PO SCH (10:21)
[2020-09-10] MEDS: MULTIVITAMINS (DAILY MVI) TABLET (FP) PO SCH (10:21)
[2020-09-10] MEDS: PRAMIPEXOLE DIHYDROCHLORIDE 0.25 MG TABLET PO SCH ×2 (10:21→21:55)
[2020-09-10] MEDS: NYSTATIN POWDER 100,000 UNITS/GM - 15 GM TOPICAL POWDER TP SCH ×2 (10:22→21:55)
[2020-09-10] MEDS: SILVER SULFADIAZINE 1% TOP CREAM 400 GM JAR TP SCH (10:22)
[2020-09-10] MEDS: CEPHALEXIN 250 MG/5 ML ORAL SUSPENSION PO SCH ×2 (10:47→21:55)
[2020-09-10] MEDS: ALBUTEROL SO4 2.5/IPRATROPIUM 0.5 INH SOL 3 ML VIAL.NEB. NEB SCH ×3 (12:30→20:36)
[2020-09-10] MEDS: METOLAZONE 2.5 MG TABLET (FP) PO SCH (13:56)
[2020-09-10] MEDS: TORSEMIDE 20 MG TABLET (FP) PO SCH ×2 (14:51→21:54)
[2020-09-10] MEDS: RIVAROXABAN 20 MG TABLET PO SCH (18:05)
[2020-09-10] MEDS ORDERED: PT OWN MED DRAWER 7, Y5N ONE ×2 (21:45→21:48)
[2020-09-10 21:50] VITALS: BMI 36.1
[2020-09-10] MEDS: DOCUSATE SODIUM 100 MG CAPSULE (FP) PO SCH (21:55)
[2020-09-11 07:42] LABS: POTASSIUM 3.8 mmol/L (3.5-5.1)
[2020-09-11 07:45] LABS: CALCIUM 8.4 mg/dL (8.5-10.1)
[2020-09-11] MEDS: ALBUTEROL SO4 2.5/IPRATROPIUM 0.5 INH SOL 3 ML VIAL.NEB. NEB SCH ×4 (08:20→20:44)
[2020-09-11] MEDS: CEPHALEXIN 250 MG/5 ML ORAL SUSPENSION PO SCH ×3 (09:01→21:22)
[2020-09-11] MEDS: LEFLUNOMIDE 10 MG TABLET PO SCH (09:01)
[2020-09-11] MEDS: MULTIVITAMINS (DAILY MVI) TABLET (FP) PO SCH (09:01)
[2020-09-11] MEDS: TORSEMIDE 20 MG TABLET (FP) PO SCH ×2 (09:02→21:21)
[2020-09-11] MEDS: TAMSULOSIN HCL 0.4 MG CAP PO SCH (09:02)
[2020-09-11] MEDS: NYSTATIN POWDER 100,000 UNITS/GM - 15 GM TOPICAL POWDER TP SCH ×2 (09:02→21:24)
[2020-09-11] MEDS: SILVER SULFADIAZINE 1% TOP CREAM 400 GM JAR TP SCH (09:02)
[2020-09-11] MEDS: PRAMIPEXOLE DIHYDROCHLORIDE 0.25 MG TABLET PO SCH ×2 (09:02→21:21)
[2020-09-11] MEDS ORDERED: DOXYCYCLINE HYCLATE 100 MG CAPSULE PO SCH (10:00)
[2020-09-11] MEDS: METOLAZONE 2.5 MG TABLET (FP) PO SCH (13:03)
[2020-09-11] MEDS: RIVAROXABAN 20 MG TABLET PO SCH (17:16)
[2020-09-11] MEDS ORDERED: PT OWN MED DRAWER 7, Y5N ONE (21:07)
[2020-09-11] MEDS: DOCUSATE SODIUM 100 MG CAPSULE (FP) PO SCH (21:21)
[2020-09-11] MEDS: traMADol HCL 50 MG TABLET PO PRN (21:23)
[2020-09-12] MEDS ORDERED: diphenhydrAMINE HCL 25 MG CAPSULE (FP) PO ONE (04:44)
[2020-09-12 06:06] VITALS: BP 117/67
[2020-09-12 07:51] LABS: POTASSIUM 3.5 mmol/L (3.5-5.1)
[2020-09-12 08:09] LABS: BLOOD UREA NITROGEN 57.9 mg/dL (7-18); CALCIUM 8.6 mg/dL (8.5-10.1)
[2020-09-12] MEDS: ALBUTEROL SO4 2.5/IPRATROPIUM 0.5 INH SOL 3 ML VIAL.NEB. NEB SCH ×2 (09:15→12:05)
[2020-09-12] MEDS ORDERED: PT OWN MED DRAWER 7, Y5N ONE (09:18)
[2020-09-12 09:41] VITALS: PULSE 79; TEMP 97.6
[2020-09-12] MEDS: CEPHALEXIN 250 MG/5 ML ORAL SUSPENSION PO SCH (09:49)
[2020-09-12] MEDS: TAMSULOSIN HCL 0.4 MG CAP PO SCH (09:50)
[2020-09-12] MEDS: PRAMIPEXOLE DIHYDROCHLORIDE 0.25 MG TABLET PO SCH (09:50)
[2020-09-12] MEDS: TORSEMIDE 20 MG TABLET (FP) PO SCH (09:50)
[2020-09-12] MEDS: MULTIVITAMINS (DAILY MVI) TABLET (FP) PO SCH (09:50)
[2020-09-12] MEDS: NYSTATIN POWDER 100,000 UNITS/GM - 15 GM TOPICAL POWDER TP SCH (09:51)
[2020-09-12] MEDS: SILVER SULFADIAZINE 1% TOP CREAM 400 GM JAR TP SCH (09:51)
[2020-09-12] MEDS: LEFLUNOMIDE 10 MG TABLET PO SCH (09:51)
[2020-09-12] MEDS: METOLAZONE 2.5 MG TABLET (FP) PO SCH (13:29)
== END 2020-09-12 14:50 | DRG 291 ==
LOC: JER 03:02 → JERBED 10:23 → J4W 08-18 17:32 → J4S 09-05 23:41
PROVIDERS: ADMIT Family Medicine; ATTEND Family Medicine
DX: I11.0 Hypertensive heart disease with heart failure (principal); A41.89 Other specified sepsis; N39.0 Urinary tract infection, site not specified; L03.113 Cellulitis of right upper limb; M06.9 Rheumatoid arthritis, unspecified; I50.23 Acute on chronic systolic (congestive) heart failure; I42.8 Other cardiomyopathies; I48.91 Unspecified atrial fibrillation; E11.40 Type 2 diabetes mellitus with diabetic neuropathy, unspecified; E78.00 Pure hypercholesterolemia, unspecified; I48.0 Paroxysmal atrial fibrillation; G47.33 Obstructive sleep apnea (adult) (pediatric); B37.9 Candidiasis, unspecified; D64.9 Anemia, unspecified; I34.0 Nonrheumatic mitral (valve) insufficiency; D69.6 Thrombocytopenia, unspecified; M79.89 Other specified soft tissue disorders; R79.89 Other specified abnormal findings of blood chemistry; B95.2 Enterococcus as the cause of diseases classified elsewhere; E11.51 Type 2 diabetes mellitus with diabetic peripheral angiopathy without gangrene; E87.5 Hyperkalemia; M54.9 Dorsalgia, unspecified; E66.3 Overweight; Z68.35 Body mass index [BMI] 35.0-35.9, adult; R26.9 Unspecified abnormalities of gait and mobility; I99.8 Other disorder of circulatory system; R33.9 Retention of urine, unspecified; Z96.611 Presence of right artificial shoulder joint; Z86.711 Personal history of pulmonary embolism; Z86.718 Personal history of other venous thrombosis and embolism; Z96.651 Presence of right artificial knee joint; Z98.84 Bariatric surgery status
CPT/HCPCS: 36415; 71045-TC-FY; 71250-TC; 73200-TC-RT; 73523-TC-FY; 74176-TC; 76775-TC; 80048; 80053; 81003; 82248; 82436; 82550; 82565; 82607; 82728; 82962; 83036; 83605; 83615; 83735; 83880; 84133; 84300; 84443; 84484; 85025; 85027; 85379; 85610; 85730; 86140; 87040; 87086; 87186; 87804; 93005; 93010; 93306-TC; 93926-TC; 93971; 94640; 94761; 97116-GP; 97162-GP; 99285-25; C9803; G0480; J0131; U0003

== ENCOUNTER 2020-09-23 13:32 | Inpatient (IN) | payer OTHER ==
[2020-09-23] MEDS ORDERED: HYDROmorphone HCL CARPU-JECT 2 MG/1 ML DISP.SYRIN IVPUSH ONE ×2 (14:11→14:27)
[2020-09-23] MEDS ORDERED: SODIUM CHLORIDE 2,517 ML IV ONE (14:23)
[2020-09-23] MEDS ORDERED: HYDROmorphone HCl 2 MG/ML VIAL ONE (15:06)
[2020-09-23 15:26] LABS: INR 1.38 (0.83-1.09); PROTHROMBIN TIME (PATIENT) 16.8 SEC (9.7-13.0)
[2020-09-23 15:29] LABS: ACTIVATED PTT 26.7 SECONDS (25.2-36.5)
[2020-09-23 15:43] LABS: CHLORIDE 90 mmol/L (98-107); POTASSIUM 4.5 mmol/L (3.5-5.1); SODIUM 133 mmol/L (136-145)
[2020-09-23 15:45] LABS: CALCIUM 8.6 mg/dL (8.5-10.1)
[2020-09-23 15:46] LABS: ALBUMIN 2.8 g/dl (3.4-5.0); ANION GAP 15 MMOL/L (8-16); BLOOD UREA NITROGEN 60.9 mg/dL (7-18); CO2 28 mmol/L (21-32); GLUCOSE,RANDOM 222 mg/dL (74-106)
[2020-09-23 15:49] LABS: CREATININE 1.8 mg/dL (0.55-1.3); SGOT/AST 24 U/L (15-37)
[2020-09-23 15:50] LABS: BILIRUBIN,TOTAL 1.1 mg/dL (0.2-1); SGPT/ALT 18 U/L (13-61)
[2020-09-23 15:51] LABS: TOT PROT 6.6 g/dl (6.4-8.2)
[2020-09-23 15:52] LABS: ALK PHOS 214 U/L (45-117)
[2020-09-23 15:55] LABS: N-TERMINAL BNP 16866.1 pg/ml (5-125)
[2020-09-23 16:04] LABS: BASO % 0.7 % (0-2.0); EOS % 0.5 % (0-4.5); HEMATOCRIT 36.5 % (32.4-45.2); HEMOGLOBIN 11.6 GM/dL (10.7-15.3); LYMPH % 11.6 % (8-40); MCH 30.6 pg (25.7-33.7); MCHC 31.7 g/dl (32.0-36.0); MEAN CELL VOLUME 96.7 fl (80-96); MEAN PLT VOLUME 10.2 fl (7.5-11.1); MONO % 4.6 % (3.8-10.2); NEUT % 82.6 % (42.8-82.8); PLATELET COUNT 128 K/MM3 (134-434); RBC 3.77 M/mm3 (3.60-5.2); RDW 21.2 % (11.6-15.6); WHITE BLOOD COUNT 9.5 K/mm3 (4.0-10.0)
[2020-09-23 17:50] LABS: ANISOCYTOSIS 2+; MACROCYTOSIS 1+; OVALOCYTE 1+; PLATELET ESTIMATE DECREASED
[2020-09-23] MEDS ORDERED: HEPARIN NA (PORCINE) 5,000 UNITS/ML 1ML VIAL IVPUSH ONE (17:51)
[2020-09-23] MEDS ORDERED: HEPARIN NA (PORCINE) 5,000 UNITS/ML 1ML VIAL IVPUSH PRN (17:52)
[2020-09-23] MEDS ORDERED: FUROSEMIDE 40 MG/4 ML INJECTABLE VIAL IVPUSH ONE (18:02)
[2020-09-23] MEDS ORDERED: HEPARIN NA (PORCINE) 5,000 UNITS/ML 1ML VIAL ONE ×2 (19:07→19:29)
[2020-09-23] MEDS ORDERED: FUROSEMIDE 40 MG/4 ML INJECTABLE VIAL ONE (19:07)
[2020-09-23] MEDS ORDERED: HEPARIN INFUSION - 25,000 UNITS/500 ML INFUS.BAG IVPB ONE (19:07)
[2020-09-23] MEDS: HEPARIN - 25,000 UNIT in SODIUM CHLORIDE 495 ML IV SCH (19:54)
[2020-09-23 20:26] LABS: VENOUS BASE EXCESS -0.4 mmol/L (-2-2); VENOUS O2 SATURATION 29.5 % (70-80); VENOUS PCO2 59.6 mmHg (38-52); VENOUS PH 7.279 (7.310-7.410)
[2020-09-24 09:43] LABS: ALBUMIN 2.7 g/dl (3.4-5.0); BLOOD UREA NITROGEN 68.8 mg/dL (7-18); CALCIUM 8.2 mg/dL (8.5-10.1); CREATININE 1.9 mg/dL (0.55-1.3); POTASSIUM 4.2 mmol/L (3.5-5.1); TOT PROT 6.6 g/dl (6.4-8.2)
[2020-09-24] MEDS ORDERED: ACETAMINOPHEN 325 MG TABLET (FP) PO PRN (09:55)
[2020-09-24] MEDS: LEFLUNOMIDE 10 MG TABLET PO SCH (11:48)
[2020-09-24] MEDS: PRAMIPEXOLE DIHYDROCHLORIDE 0.25 MG TABLET PO SCH (11:49)
[2020-09-24] MEDS: CYANOCOBALAMIN 1,000 MCG TABLET (FP) PO SCH (11:49)
[2020-09-24] MEDS ORDERED: MULTIVITAMINS (DAILY MVI) TABLET (FP) ONE (11:59)
[2020-09-24] MEDS: MULTIVITAMINS (DAILY MVI) TABLET (FP) PO SCH (12:03)
[2020-09-24] MEDS: NYSTATIN POWDER 100,000 UNITS/GM - 15 GM TOPICAL POWDER TP SCH (12:03)
[2020-09-24] MEDS ORDERED: ALBUTEROL SO4 2.5/IPRATROPIUM 0.5 INH SOL 3 ML VIAL.NEB. NEB ONE (12:27)
[2020-09-24] MEDS: ALBUTEROL SO4 2.5/IPRATROPIUM 0.5 INH SOL 3 ML VIAL.NEB. NEB SCH ×2 (12:31→17:31)
[2020-09-24] MEDS: TORSEMIDE 20 MG TABLET (FP) PO SCH (14:40)
[2020-09-24] MEDS ORDERED: SENNOSIDES 8.6MG TABLET (FP) PO PRN (22:00)
[2020-09-24] MEDS ORDERED: HEPARIN NA (PORCINE) 5,000 UNITS/ML 1ML VIAL ONE (23:03)
[2020-09-24] MEDS: HEPARIN - 25,000 UNIT in SODIUM CHLORIDE 495 ML IV SCH (23:06)
[2020-09-24] MEDS: HEPARIN NA (PORCINE) 5,000 UNITS/ML 1ML VIAL IVPUSH PRN (23:07)
[2020-09-24] MEDS ORDERED: DOCUSATE SODIUM 100 MG CAPSULE (FP) PO ONE (23:33)
[2020-09-25] MEDS: traMADol HCL 50 MG TABLET PO PRN ×2 (03:13→12:15)
[2020-09-25] MEDS: TORSEMIDE 20 MG TABLET (FP) PO SCH ×2 (06:41→14:27)
[2020-09-25 07:38] LABS: HEMATOCRIT 34.7 % (32.4-45.2); HEMOGLOBIN 11.3 GM/dL (10.7-15.3); MCHC 32.7 g/dl (32.0-36.0); MEAN CELL VOLUME 94.8 fl (80-96); MEAN PLT VOLUME 10.9 fl (7.5-11.1); PLATELET COUNT 110 K/MM3 (134-434); RBC 3.66 M/mm3 (3.60-5.2); RDW 20.2 % (11.6-15.6); WHITE BLOOD COUNT 10.2 K/mm3 (4.0-10.0)
[2020-09-25] MEDS: ALBUTEROL SO4 2.5/IPRATROPIUM 0.5 INH SOL 3 ML VIAL.NEB. NEB SCH ×5 (08:21→20:24)
[2020-09-25] MEDS ORDERED: PT OWN MED DRAWER 7, Y5N ONE ×3 (08:57→22:12)
[2020-09-25] MEDS: PRAMIPEXOLE DIHYDROCHLORIDE 0.25 MG TABLET PO SCH ×3 (10:07→22:25)
[2020-09-25] MEDS: TAMSULOSIN HCL 0.4 MG CAP PO SCH (10:07)
[2020-09-25] MEDS: CYANOCOBALAMIN 1,000 MCG TABLET (FP) PO SCH (10:07)
[2020-09-25] MEDS: MULTIVITAMINS (DAILY MVI) TABLET (FP) PO SCH (10:07)
[2020-09-25] MEDS: LEFLUNOMIDE 10 MG TABLET PO SCH (10:08)
[2020-09-25] MEDS: metoPROLOL SUCCINATE 25 MG TAB.SR.24H (FP) PO SCH ×2 (10:18→22:25)
[2020-09-25] MEDS ORDERED: traMADol HCL 50 MG TABLET PO PRN (12:47)
[2020-09-25] MEDS: DOCUSATE SODIUM 100 MG CAPSULE (FP) PO SCH ×2 (13:11→22:26)
[2020-09-25] MEDS: NYSTATIN POWDER 100,000 UNITS/GM - 15 GM TOPICAL POWDER TP SCH ×3 (13:11→22:25)
[2020-09-25] MEDS: PANTOPRAZOLE SODIUM 40 MG VIAL IVPUSH SCH (15:02)
[2020-09-25] MEDS: oxyCODONE HCL 5 MG TABLET PO PRN (15:44)
[2020-09-25 16:18] LABS: ALBUMIN 2.6 g/dl (3.4-5.0); BILIRUBIN,TOTAL 1.3 mg/dL (0.2-1); BLOOD UREA NITROGEN 76.5 mg/dL (7-18); CALCIUM 7.8 mg/dL (8.5-10.1); CREATININE 2.1 mg/dL (0.55-1.3); POTASSIUM 4.9 mmol/L (3.5-5.1); TOT PROT 6.1 g/dl (6.4-8.2)
[2020-09-25] MEDS ORDERED: LORazepam 2 MG/ML SDV VIAL IVPUSH ONE (17:23)
[2020-09-25] MEDS: HEPARIN - 25,000 UNIT in SODIUM CHLORIDE 495 ML IV SCH (18:40)
[2020-09-25] MEDS ORDERED: DEXTROSE 5%-WATER - 50 ML IVPB ONE (22:13)
[2020-09-25] MEDS ORDERED: cefTRIAXone SODIUM 1 GM VIAL ONE (22:13)
[2020-09-25] MEDS: CEFTRIAXONE 1 GM in DEXTROSE 5%-WATER - 50 ML IVPB SCH (22:24)
[2020-09-26] MEDS ORDERED: PT OWN MED DRAWER 7, Y5N ONE ×4 (01:07→22:00)
[2020-09-26] MEDS: HEPARIN - 25,000 UNIT in SODIUM CHLORIDE 495 ML IV SCH ×2 (01:51→21:38)
[2020-09-26] MEDS: TORSEMIDE 20 MG TABLET (FP) PO SCH ×2 (05:50→13:39)
[2020-09-26] MEDS: ALBUTEROL SO4 2.5/IPRATROPIUM 0.5 INH SOL 3 ML VIAL.NEB. NEB SCH ×4 (07:50→20:05)
[2020-09-26 08:56] LABS: HEMATOCRIT 35.6 % (32.4-45.2); HEMOGLOBIN 11.7 GM/dL (10.7-15.3); MCHC 32.9 g/dl (32.0-36.0); MEAN CELL VOLUME 94.3 fl (80-96); MEAN PLT VOLUME 9.7 fl (7.5-11.1); PLATELET COUNT 107 K/MM3 (134-434); RBC 3.78 M/mm3 (3.60-5.2); WHITE BLOOD COUNT 8.6 K/mm3 (4.0-10.0)
[2020-09-26 09:05] LABS: POTASSIUM 4.4 mmol/L (3.5-5.1)
[2020-09-26 09:09] LABS: ALBUMIN 2.6 g/dl (3.4-5.0); BLOOD UREA NITROGEN 82.5 mg/dL (7-18)
[2020-09-26 09:10] LABS: CALCIUM 7.8 mg/dL (8.5-10.1)
[2020-09-26 09:12] LABS: CREATININE 2.2 mg/dL (0.55-1.3)
[2020-09-26 09:13] LABS: BILIRUBIN,TOTAL 1.1 mg/dL (0.2-1)
[2020-09-26 09:14] LABS: TOT PROT 6.1 g/dl (6.4-8.2)
[2020-09-26] MEDS ORDERED: DEXTROSE 5%-WATER - 50 ML IVPB ONE (09:32)
[2020-09-26] MEDS ORDERED: cefTRIAXone SODIUM 1 GM VIAL ONE (09:32)
[2020-09-26] MEDS: CYANOCOBALAMIN 1,000 MCG TABLET (FP) PO SCH (10:17)
[2020-09-26] MEDS: MULTIVITAMINS (DAILY MVI) TABLET (FP) PO SCH (10:17)
[2020-09-26] MEDS: TAMSULOSIN HCL 0.4 MG CAP PO SCH (10:17)
[2020-09-26] MEDS: LEFLUNOMIDE 10 MG TABLET PO SCH (10:20)
[2020-09-26] MEDS: CEFTRIAXONE 1 GM in DEXTROSE 5%-WATER - 50 ML IVPB SCH (10:21)
[2020-09-26] MEDS: PRAMIPEXOLE DIHYDROCHLORIDE 0.25 MG TABLET PO SCH ×2 (10:23→21:14)
[2020-09-26] MEDS: PANTOPRAZOLE SODIUM 40 MG VIAL IVPUSH SCH (10:24)
[2020-09-26] MEDS: NYSTATIN POWDER 100,000 UNITS/GM - 15 GM TOPICAL POWDER TP SCH ×2 (10:24→21:14)
[2020-09-26] MEDS: metoPROLOL SUCCINATE 25 MG TAB.SR.24H (FP) PO SCH ×2 (10:24→21:15)
[2020-09-26] MEDS: POLYETHYLENE GLYCOL 3350 119 GM BTL PO SCH (13:38)
[2020-09-26] MEDS: oxyCODONE HCL 5 MG TABLET PO PRN ×2 (13:38→20:26)
[2020-09-26] MEDS: DOCUSATE SODIUM 100 MG CAPSULE (FP) PO SCH (21:14)
[2020-09-27] MEDS: oxyCODONE HCL 5 MG TABLET PO PRN ×2 (03:23→21:42)
[2020-09-27] MEDS: ALBUTEROL SO4 2.5/IPRATROPIUM 0.5 INH SOL 3 ML VIAL.NEB. NEB SCH ×4 (08:22→20:00)
[2020-09-27] MEDS ORDERED: cefTRIAXone SODIUM 1 GM VIAL ONE (10:18)
[2020-09-27] MEDS ORDERED: DEXTROSE 5%-WATER - 50 ML IVPB ONE (10:18)
[2020-09-27] MEDS: TAMSULOSIN HCL 0.4 MG CAP PO SCH (10:31)
[2020-09-27] MEDS: PANTOPRAZOLE SODIUM 40 MG VIAL IVPUSH SCH (10:36)
[2020-09-27] MEDS: CEFTRIAXONE 1 GM in DEXTROSE 5%-WATER - 50 ML IVPB SCH (10:36)
[2020-09-27] MEDS: POLYETHYLENE GLYCOL 3350 119 GM BTL PO SCH (10:37)
[2020-09-27] MEDS: metoPROLOL SUCCINATE 25 MG TAB.SR.24H (FP) PO SCH ×2 (10:37→21:41)
[2020-09-27] MEDS: CYANOCOBALAMIN 1,000 MCG TABLET (FP) PO SCH (10:37)
[2020-09-27] MEDS: PRAMIPEXOLE DIHYDROCHLORIDE 0.25 MG TABLET PO SCH ×2 (10:37→21:41)
[2020-09-27] MEDS: TORSEMIDE 20 MG TABLET (FP) PO SCH (10:37)
[2020-09-27] MEDS: MULTIVITAMINS (DAILY MVI) TABLET (FP) PO SCH (10:37)
[2020-09-27] MEDS: LEFLUNOMIDE 10 MG TABLET PO SCH (10:38)
[2020-09-27] MEDS: NYSTATIN POWDER 100,000 UNITS/GM - 15 GM TOPICAL POWDER TP SCH ×2 (10:38→21:42)
[2020-09-27 12:43] LABS: EPI CELLS 25 /uL (0-25.1); HYALINE CASTS 3 /uL (0-3.1); PH,URINE 5.5 (5.0-8.0); URINE APPEARANCE CLEAR; URINE BACTERIA 133 /uL (0-1359); URINE BILIRUBIN NEGATIVE (NEGATIVE); URINE COLOR YELLOW; URINE GLUCOSE (UA) NEGATIVE (NEGATIVE); URINE KETONE NEGATIVE (NEGATIVE); URINE LEUK ESTERASE TRACE (NEGATIVE); URINE NITRITE NEGATIVE (NEGATIVE); URINE PROTEIN NEGATIVE (NEGATIVE); URINE RBC 8 /uL (0-23.9); URINE UROBILINOGEN 0.2 mg/dL (0.2-1.0); URINE WBC 24 /uL (0-25.8)
[2020-09-27 14:32] LABS: HEMATOCRIT 35.6 % (32.4-45.2); HEMOGLOBIN 11.4 GM/dL (10.7-15.3); MCH 30.4 pg (25.7-33.7); MCHC 31.9 g/dl (32.0-36.0); MEAN CELL VOLUME 95.3 fl (80-96); MEAN PLT VOLUME 10.4 fl (7.5-11.1); PLATELET COUNT 99 K/MM3 (134-434); RBC 3.74 M/mm3 (3.60-5.2); RDW 20.1 % (11.6-15.6); WHITE BLOOD COUNT 6.9 K/mm3 (4.0-10.0)
[2020-09-27 14:40] LABS: POTASSIUM 3.9 mmol/L (3.5-5.1)
[2020-09-27 14:42] LABS: CALCIUM 8.2 mg/dL (8.5-10.1)
[2020-09-27 14:43] LABS: ALBUMIN 2.7 g/dl (3.4-5.0); BLOOD UREA NITROGEN 76.3 mg/dL (7-18)
[2020-09-27 14:45] LABS: INR 1.33 (0.83-1.09); PROTHROMBIN TIME (PATIENT) 16.2 SEC (9.7-13.0)
[2020-09-27 14:46] LABS: CREATININE 2.2 mg/dL (0.55-1.3)
[2020-09-27 14:47] LABS: ACTIVATED PTT 27.1 SECONDS (25.2-36.5); BILIRUBIN,TOTAL 0.8 mg/dL (0.2-1)
[2020-09-27 14:48] LABS: TOT PROT 6.2 g/dl (6.4-8.2)
[2020-09-27] MEDS: HEPARIN NA (PORCINE) 5,000 UNITS/ML 1ML VIAL IVPUSH PRN ×2 (14:56→23:03)
[2020-09-27] MEDS ORDERED: PT OWN MED DRAWER 7, Y5N ONE ×2 (17:10→21:17)
[2020-09-27] MEDS: HEPARIN - 25,000 UNIT in SODIUM CHLORIDE 495 ML IV SCH ×2 (17:54→22:43)
[2020-09-27] MEDS: DOCUSATE SODIUM 100 MG CAPSULE (FP) PO SCH (21:42)
[2020-09-28] MEDS ORDERED: PT OWN MED DRAWER 7, Y5N ONE ×4 (06:45→22:44)
[2020-09-28] MEDS: ALBUTEROL SO4 2.5/IPRATROPIUM 0.5 INH SOL 3 ML VIAL.NEB. NEB SCH ×4 (08:00→19:15)
[2020-09-28] MEDS ORDERED: DEXTROSE 5%-WATER - 50 ML IVPB ONE (09:41)
[2020-09-28] MEDS ORDERED: cefTRIAXone SODIUM 1 GM VIAL ONE (09:41)
[2020-09-28] MEDS: metoPROLOL SUCCINATE 25 MG TAB.SR.24H (FP) PO SCH ×2 (10:09→22:47)
[2020-09-28] MEDS: TORSEMIDE 20 MG TABLET (FP) PO SCH (10:10)
[2020-09-28] MEDS: CYANOCOBALAMIN 1,000 MCG TABLET (FP) PO SCH (10:10)
[2020-09-28] MEDS: PANTOPRAZOLE SODIUM 40 MG VIAL IVPUSH SCH (10:10)
[2020-09-28] MEDS: PRAMIPEXOLE DIHYDROCHLORIDE 0.25 MG TABLET PO SCH ×2 (10:10→22:47)
[2020-09-28] MEDS: LEFLUNOMIDE 10 MG TABLET PO SCH (10:10)
[2020-09-28] MEDS: MULTIVITAMINS (DAILY MVI) TABLET (FP) PO SCH (10:10)
[2020-09-28] MEDS: NYSTATIN POWDER 100,000 UNITS/GM - 15 GM TOPICAL POWDER TP SCH ×2 (10:11→22:47)
[2020-09-28] MEDS: POLYETHYLENE GLYCOL 3350 119 GM BTL PO SCH (10:11)
[2020-09-28] MEDS: CEFTRIAXONE 1 GM in DEXTROSE 5%-WATER - 50 ML IVPB SCH (12:30)
[2020-09-28 15:56] LABS: HEMATOCRIT 33.1 % (32.4-45.2); HEMOGLOBIN 10.6 GM/dL (10.7-15.3); MCH 30.2 pg (25.7-33.7); MCHC 31.9 g/dl (32.0-36.0); MEAN CELL VOLUME 94.7 fl (80-96); MEAN PLT VOLUME 10.8 fl (7.5-11.1); PLATELET COUNT 106 K/MM3 (134-434); RBC 3.49 M/mm3 (3.60-5.2); RDW 19.6 % (11.6-15.6); WHITE BLOOD COUNT 6.5 K/mm3 (4.0-10.0)
[2020-09-28 16:00] LABS: CHLORIDE 90 mmol/L (98-107); POTASSIUM 3.2 mmol/L (3.5-5.1); SODIUM 134 mmol/L (136-145)
[2020-09-28 16:03] LABS: ALBUMIN 2.6 g/dl (3.4-5.0); ANION GAP 14 MMOL/L (8-16); BLOOD UREA NITROGEN 69.9 mg/dL (7-18); CO2 31 mmol/L (21-32); GLUCOSE,RANDOM 222 mg/dL (74-106)
[2020-09-28 16:05] LABS: SGOT/AST 17 U/L (15-37); SGPT/ALT 18 U/L (13-61)
[2020-09-28 16:06] LABS: PHOSPHOROUS 5.1 mg/dL (2.5-4.9)
[2020-09-28 16:07] LABS: BILIRUBIN,TOTAL 0.8 mg/dL (0.2-1); LDH 344 U/L (84-246); TOT PROT 5.8 g/dl (6.4-8.2)
[2020-09-28 16:09] LABS: ALK PHOS 199 U/L (45-117)
[2020-09-28] MEDS: SIMETHICONE 80 MG TAB.CHEW (FP) PO PRN (16:48)
[2020-09-28 17:11] LABS: ERYTHROCYTE SEDIMENTATION RATE 7 mm/hr (0-30)
[2020-09-28] MEDS: HEPARIN - 25,000 UNIT in SODIUM CHLORIDE 495 ML IV SCH (18:07)
[2020-09-28] MEDS: DOCUSATE SODIUM 100 MG CAPSULE (FP) PO SCH (22:46)
[2020-09-29] MEDS: ALBUTEROL SO4 2.5/IPRATROPIUM 0.5 INH SOL 3 ML VIAL.NEB. NEB SCH ×5 (07:30→20:15)
[2020-09-29 08:38] LABS: HEMATOCRIT 34.6 % (32.4-45.2); HEMOGLOBIN 11.2 GM/dL (10.7-15.3); MCH 30.1 pg (25.7-33.7); MCHC 32.4 g/dl (32.0-36.0); MEAN CELL VOLUME 93.2 fl (80-96); MEAN PLT VOLUME 10.5 fl (7.5-11.1); PLATELET COUNT 117 K/MM3 (134-434); RBC 3.71 M/mm3 (3.60-5.2); RDW 19.3 % (11.6-15.6); WHITE BLOOD COUNT 6.5 K/mm3 (4.0-10.0)
[2020-09-29] MEDS ORDERED: cefTRIAXone SODIUM 1 GM VIAL ONE (09:31)
[2020-09-29] MEDS ORDERED: DEXTROSE 5%-WATER - 50 ML IVPB ONE (09:32)
[2020-09-29] MEDS: PANTOPRAZOLE SODIUM 40 MG VIAL IVPUSH SCH (09:54)
[2020-09-29] MEDS: MULTIVITAMINS (DAILY MVI) TABLET (FP) PO SCH (09:55)
[2020-09-29] MEDS: TORSEMIDE 20 MG TABLET (FP) PO SCH (09:55)
[2020-09-29] MEDS: CYANOCOBALAMIN 1,000 MCG TABLET (FP) PO SCH (09:55)
[2020-09-29] MEDS: CEFTRIAXONE 1 GM in DEXTROSE 5%-WATER - 50 ML IVPB SCH (09:55)
[2020-09-29] MEDS: metoPROLOL SUCCINATE 25 MG TAB.SR.24H (FP) PO SCH ×2 (09:56→21:28)
[2020-09-29] MEDS: POLYETHYLENE GLYCOL 3350 119 GM BTL PO SCH (09:57)
[2020-09-29] MEDS: PRAMIPEXOLE DIHYDROCHLORIDE 0.25 MG TABLET PO SCH ×2 (09:57→21:29)
[2020-09-29] MEDS: LEFLUNOMIDE 10 MG TABLET PO SCH (09:58)
[2020-09-29] MEDS: NYSTATIN POWDER 100,000 UNITS/GM - 15 GM TOPICAL POWDER TP SCH ×2 (09:58→23:30)
[2020-09-29 10:47] LABS: POTASSIUM 3.1 mmol/L (3.5-5.1)
[2020-09-29 10:50] LABS: ALBUMIN 2.6 g/dl (3.4-5.0); BLOOD UREA NITROGEN 62.7 mg/dL (7-18); CALCIUM 8.4 mg/dL (8.5-10.1); MAGNESIUM 2.1 mg/dL (1.8-2.4)
[2020-09-29 10:54] LABS: BILIRUBIN,TOTAL 0.7 mg/dL (0.2-1); CREATININE 1.7 mg/dL (0.55-1.3); PHOSPHOROUS 4.3 mg/dL (2.5-4.9); TOT PROT 5.7 g/dl (6.4-8.2)
[2020-09-29] MEDS: KCL 10 MEQ IVPB 10 MEQ/100 ML INFUS.BAG IVPB SCH ×2 (11:40→18:19)
[2020-09-29] MEDS ORDERED: LIDOCAINE HCL 1%, 10 MG/ML (20ML VIAL) ONE (12:53)
[2020-09-29] MEDS ORDERED: HEPARIN NA (PORCINE) 5,000 UNITS/ML 1ML VIAL ONE (12:53)
[2020-09-29] MEDS ORDERED: PROPOFOL 20 ML ONE (13:05)
[2020-09-29] MEDS ORDERED: MIDAZOLAM HCL 2 MG/2 ML SINGLE DOSE VIAL ONE (13:05)
[2020-09-29] MEDS ORDERED: LIDOCAINE HCL 1%, 10 MG/ML (20ML VIAL) INF ONE (13:55)
[2020-09-29] MEDS ORDERED: METOPROLOL TARTRATE 5 MG/5 ML VIAL ONE ×2 (14:03→15:55)
[2020-09-29] MEDS ORDERED: NITROGLYCERIN 50 MG/10 ML VIAL IVPB ONE (14:05)
[2020-09-29] MEDS ORDERED: ALBUTEROL SO4 0.083% IH SOL 2.5 MG/3 ML VIAL.NEB. NEB ONE (15:55)
[2020-09-29] MEDS ORDERED: METOPROLOL TARTRATE 5 MG/5 ML VIAL IVPUSH ONE ×2 (15:56→16:00)
[2020-09-29] MEDS: WARFARIN NA 7.5 MG TABLET (FP) PO SCH (18:18)
[2020-09-29] MEDS: HEPARIN - 25,000 UNIT in SODIUM CHLORIDE 495 ML IV SCH (19:39)
[2020-09-29] MEDS ORDERED: PT OWN MED DRAWER 7, Y5N ONE (21:26)
[2020-09-29] MEDS: DOCUSATE SODIUM 100 MG CAPSULE (FP) PO SCH (21:28)
[2020-09-30] MEDS ORDERED: PT OWN MED DRAWER 7, Y5N ONE ×5 (02:08→20:59)
[2020-09-30] MEDS ORDERED: diphenhydrAMINE HCL 25 MG CAPSULE (FP) PO ONE (02:15)
[2020-09-30 07:43] LABS: INR 1.41 (0.83-1.09); PROTHROMBIN TIME (PATIENT) 17.2 SEC (9.7-13.0)
[2020-09-30 07:50] LABS: BASO % 0.8 % (0-2.0); EOS % 2.9 % (0-4.5); HEMATOCRIT 34.4 % (32.4-45.2); HEMOGLOBIN 11.2 GM/dL (10.7-15.3); LYMPH % 13.9 % (8-40); MCH 30.4 pg (25.7-33.7); MCHC 32.6 g/dl (32.0-36.0); MEAN CELL VOLUME 93.2 fl (80-96); MEAN PLT VOLUME 10.3 fl (7.5-11.1); MONO % 8.5 % (3.8-10.2); NEUT % 73.9 % (42.8-82.8); PLATELET COUNT 133 K/MM3 (134-434); RBC 3.69 M/mm3 (3.60-5.2); RDW 20.3 % (11.6-15.6); WHITE BLOOD COUNT 6.7 K/mm3 (4.0-10.0)
[2020-09-30 08:05] LABS: BLOOD UREA NITROGEN 51.9 mg/dL (7-18); CALCIUM 8.1 mg/dL (8.5-10.1)
[2020-09-30 08:06] LABS: ALBUMIN 2.6 g/dl (3.4-5.0)
[2020-09-30 08:08] LABS: CREATININE 1.4 mg/dL (0.55-1.3)
[2020-09-30 08:10] LABS: TOT PROT 5.7 g/dl (6.4-8.2)
[2020-09-30 08:26] LABS: POTASSIUM 2.8 mmol/L (3.5-5.1)
[2020-09-30] MEDS: ALBUTEROL SO4 2.5/IPRATROPIUM 0.5 INH SOL 3 ML VIAL.NEB. NEB SCH ×4 (08:40→20:32)
[2020-09-30 09:03] LABS: MAGNESIUM 1.8 mg/dL (1.8-2.4)
[2020-09-30] MEDS ORDERED: POTASSIUM CHLORIDE ORAL LIQUID 20 MEQ/15 ML PO ONE (09:15)
[2020-09-30] MEDS ORDERED: DEXTROSE 5%-WATER - 50 ML IVPB ONE (09:38)
[2020-09-30] MEDS ORDERED: cefTRIAXone SODIUM 1 GM VIAL ONE (09:38)
[2020-09-30] MEDS: metoPROLOL SUCCINATE 25 MG TAB.SR.24H (FP) PO SCH ×2 (09:49→21:33)
[2020-09-30] MEDS: MULTIVITAMINS (DAILY MVI) TABLET (FP) PO SCH (09:49)
[2020-09-30] MEDS: TORSEMIDE 20 MG TABLET (FP) PO SCH (09:49)
[2020-09-30] MEDS: CYANOCOBALAMIN 1,000 MCG TABLET (FP) PO SCH (09:49)
[2020-09-30] MEDS: LEFLUNOMIDE 10 MG TABLET PO SCH (09:50)
[2020-09-30] MEDS: PRAMIPEXOLE DIHYDROCHLORIDE 0.25 MG TABLET PO SCH ×2 (09:51→21:33)
[2020-09-30] MEDS: POLYETHYLENE GLYCOL 3350 119 GM BTL PO SCH (09:51)
[2020-09-30] MEDS: CEFTRIAXONE 1 GM in DEXTROSE 5%-WATER - 50 ML IVPB SCH (09:52)
[2020-09-30] MEDS: NYSTATIN POWDER 100,000 UNITS/GM - 15 GM TOPICAL POWDER TP SCH ×2 (09:52→21:34)
[2020-09-30] MEDS: PANTOPRAZOLE SODIUM 40 MG VIAL IVPUSH SCH (09:52)
[2020-09-30] MEDS: KCL 10 MEQ IVPB 10 MEQ/100 ML INFUS.BAG IVPB SCH ×3 (11:38→16:21)
[2020-09-30 13:41] VITALS: BMI 32.2
[2020-09-30] MEDS: AMINO ACIDS/PROTEIN HYDROLYS 30 ML LIQUID.PKT PO SCH (18:16)
[2020-09-30] MEDS: WARFARIN NA 7.5 MG TABLET (FP) PO SCH (18:17)
[2020-09-30] MEDS: HEPARIN - 25,000 UNIT in SODIUM CHLORIDE 495 ML IV SCH (18:49)
[2020-09-30] MEDS ORDERED: POTASSIUM CHLORIDE TABS 20 MEQ TABLET.ER (FP) PO ONE (20:00)
[2020-09-30] MEDS: oxyCODONE HCL 5 MG TABLET PO PRN (20:27)
[2020-09-30] MEDS: ONDANSETRON 4 MG/2 ML VIAL IVPUSH PRN (20:30)
[2020-09-30] MEDS: DOCUSATE SODIUM 100 MG CAPSULE (FP) PO SCH (21:34)
[2020-10-01] MEDS: HEPARIN - 25,000 UNIT in SODIUM CHLORIDE 495 ML IV SCH (03:10)
[2020-10-01] MEDS: LEVOTHYROXINE NA 25 MCG TABLET (FP) PO SCH (06:00)
[2020-10-01 07:25] LABS: BASO % 0.6 % (0-2.0); EOS % 3.1 % (0-4.5); HEMATOCRIT 36.9 % (32.4-45.2); HEMOGLOBIN 11.8 GM/dL (10.7-15.3); LYMPH % 20.9 % (8-40); MCH 30.5 pg (25.7-33.7); MCHC 31.9 g/dl (32.0-36.0); MEAN CELL VOLUME 95.7 fl (80-96); MEAN PLT VOLUME 9.4 fl (7.5-11.1); NEUT % 64.4 % (42.8-82.8); PLATELET COUNT 111 K/MM3 (134-434); RBC 3.86 M/mm3 (3.60-5.2); RDW 20.2 % (11.6-15.6); WHITE BLOOD COUNT 6.7 K/mm3 (4.0-10.0)
[2020-10-01 07:26] LABS: INR 3.32 (0.83-1.09); PROTHROMBIN TIME (PATIENT) 38.8 SEC (9.7-13.0)
[2020-10-01 07:42] LABS: POTASSIUM 4.5 mmol/L (3.5-5.1)
[2020-10-01 07:46] LABS: ALBUMIN 2.8 g/dl (3.4-5.0); BLOOD UREA NITROGEN 47.4 mg/dL (7-18)
[2020-10-01 07:49] LABS: CREATININE 1.6 mg/dL (0.55-1.3)
[2020-10-01 07:51] LABS: BILIRUBIN,TOTAL 0.9 mg/dL (0.2-1); TOT PROT 6.3 g/dl (6.4-8.2)
[2020-10-01] MEDS: ALBUTEROL SO4 2.5/IPRATROPIUM 0.5 INH SOL 3 ML VIAL.NEB. NEB SCH ×4 (08:37→20:11)
[2020-10-01] MEDS ORDERED: PT OWN MED DRAWER 7, Y5N ONE ×2 (09:37→21:17)
[2020-10-01] MEDS: AMINO ACIDS/PROTEIN HYDROLYS 30 ML LIQUID.PKT PO SCH ×3 (10:08→17:08)
[2020-10-01] MEDS: TORSEMIDE 20 MG TABLET (FP) PO SCH (10:08)
[2020-10-01] MEDS: TAMSULOSIN HCL 0.4 MG CAP PO SCH (10:08)
[2020-10-01] MEDS: PANTOPRAZOLE SODIUM 40 MG VIAL IVPUSH SCH (10:09)
[2020-10-01] MEDS: CYANOCOBALAMIN 1,000 MCG TABLET (FP) PO SCH (10:09)
[2020-10-01] MEDS: metoPROLOL SUCCINATE 25 MG TAB.SR.24H (FP) PO SCH ×2 (10:09→21:14)
[2020-10-01] MEDS: PRAMIPEXOLE DIHYDROCHLORIDE 0.25 MG TABLET PO SCH ×2 (10:09→21:15)
[2020-10-01] MEDS: LEFLUNOMIDE 10 MG TABLET PO SCH (10:09)
[2020-10-01] MEDS: MULTIVITAMINS (DAILY MVI) TABLET (FP) PO SCH (10:09)
[2020-10-01] MEDS: POLYETHYLENE GLYCOL 3350 119 GM BTL PO SCH ×2 (10:10→10:17)
[2020-10-01] MEDS: NYSTATIN POWDER 100,000 UNITS/GM - 15 GM TOPICAL POWDER TP SCH ×2 (10:10→21:19)
[2020-10-01] MEDS: oxyCODONE HCL 5 MG TABLET PO PRN (10:26)
[2020-10-01] MEDS: ACETAMINOPHEN 325 MG TABLET (FP) PO PRN (10:26)
[2020-10-01] MEDS: ONDANSETRON 4 MG/2 ML VIAL IVPUSH PRN (15:15)
[2020-10-01] MEDS ORDERED: TAMSULOSIN HCL 0.4 MG CAP PO SCH (16:33)
[2020-10-01] MEDS: ESCITALOPRAM OXALATE 10 MG TABLET PO SCH (17:16)
[2020-10-01] MEDS: PANTOPRAZOLE 40 MG TABLET PO SCH (17:16)
[2020-10-01] MEDS: SIMETHICONE 80 MG TAB.CHEW (FP) PO PRN (17:35)
[2020-10-01] MEDS: DOCUSATE SODIUM 100 MG CAPSULE (FP) PO SCH (21:19)
[2020-10-02] MEDS: oxyCODONE HCL 5 MG TABLET PO PRN (02:15)
[2020-10-02] MEDS: ACETAMINOPHEN 325 MG TABLET (FP) PO PRN (03:09)
[2020-10-02] MEDS: SIMETHICONE 80 MG TAB.CHEW (FP) PO PRN (03:19)
[2020-10-02] MEDS: LEVOTHYROXINE NA 25 MCG TABLET (FP) PO SCH (06:08)
[2020-10-02 07:04] LABS: BASO % 0.3 % (0-2.0); EOS % 0.5 % (0-4.5); HEMATOCRIT 36.2 % (32.4-45.2); HEMOGLOBIN 11.3 GM/dL (10.7-15.3); LYMPH % 8.9 % (8-40); MCH 30.3 pg (25.7-33.7); MCHC 31.3 g/dl (32.0-36.0); MEAN CELL VOLUME 96.9 fl (80-96); MEAN PLT VOLUME 10.6 fl (7.5-11.1); MONO % 5.5 % (3.8-10.2); NEUT % 84.8 % (42.8-82.8); PLATELET COUNT 119 K/MM3 (134-434); RBC 3.74 M/mm3 (3.60-5.2); RDW 19.8 % (11.6-15.6); WHITE BLOOD COUNT 8.5 K/mm3 (4.0-10.0)
[2020-10-02] MEDS: ALBUTEROL SO4 2.5/IPRATROPIUM 0.5 INH SOL 3 ML VIAL.NEB. NEB SCH ×2 (08:10→11:50)
[2020-10-02] MEDS: AMINO ACIDS/PROTEIN HYDROLYS 30 ML LIQUID.PKT PO SCH (08:47)
[2020-10-02 09:26] LABS: PROTHROMBIN TIME (PATIENT) 106.1 SEC (9.7-13.0)
[2020-10-02 09:34] LABS: INR 9.2 (0.83-1.09)
[2020-10-02] MEDS ORDERED: PT OWN MED DRAWER 7, Y5N ONE (09:39)
[2020-10-02] MEDS ORDERED: PHYTONADIONE 10 MG/1 ML AMP SQ ONE (09:41)
[2020-10-02] MEDS: TORSEMIDE 20 MG TABLET (FP) PO SCH (12:00)
[2020-10-02] MEDS: CYANOCOBALAMIN 1,000 MCG TABLET (FP) PO SCH (12:00)
[2020-10-02] MEDS: MULTIVITAMINS (DAILY MVI) TABLET (FP) PO SCH (12:00)
[2020-10-02] MEDS: PRAMIPEXOLE DIHYDROCHLORIDE 0.25 MG TABLET PO SCH (12:00)
[2020-10-02] MEDS: NYSTATIN POWDER 100,000 UNITS/GM - 15 GM TOPICAL POWDER TP SCH (12:01)
[2020-10-02] MEDS: ESCITALOPRAM OXALATE 10 MG TABLET PO SCH (12:01)
[2020-10-02] MEDS: LEFLUNOMIDE 10 MG TABLET PO SCH (12:01)
[2020-10-02] MEDS: PANTOPRAZOLE 40 MG TABLET PO SCH (12:01)
[2020-10-02] MEDS: POLYETHYLENE GLYCOL 3350 119 GM BTL PO SCH (12:01)
[2020-10-02] MEDS: metoPROLOL SUCCINATE 25 MG TAB.SR.24H (FP) PO SCH (12:04)
[2020-10-02 14:08] VITALS: BP 100/53; PULSE 100; TEMP 98.4
[2020-10-04 10:09] LABS: DRVVT - 51.3 sec (0.0-47.0)
== END 2020-10-02 15:30 | DRG 292 ==
LOC: JER 13:32 → JERBED 17:00 → J4S 09-25 00:37
PROVIDERS: ADMIT Internal Medicine; ATTEND Family Medicine
PROC: B40JYZZ Plain Radiography of Other Lower Arteries using Other Contrast (ICD-10-PCS; principal; 2020-09-29 13:00)
DX: I11.0 Hypertensive heart disease with heart failure (principal); N17.9 Acute kidney failure, unspecified; E87.2 Acidosis; E87.1 Hypo-osmolality and hyponatremia; I82.401 Acute embolism and thrombosis of unspecified deep veins of right lower extremity; I50.23 Acute on chronic systolic (congestive) heart failure; I42.8 Other cardiomyopathies; I99.8 Other disorder of circulatory system; I48.0 Paroxysmal atrial fibrillation; Z87.891 Personal history of nicotine dependence; M06.9 Rheumatoid arthritis, unspecified
CPT/HCPCS: 36415; 71045-TC-FY; 73030-TC-RT-FY; 73630-TC-RT-FY; 74177-TC; 75635-TC; 76000-TC-FY; 76700-TC; 80053; 81003; 82272; 82550; 82553; 82607; 82803; 82962; 83605; 83615; 83690; 83735; 83880; 84100; 84443; 84484; 85025; 85027; 85610; 85613; 85651; 85730; 85732; 86140; 86431; 86850; 86900; 86901; 87040; 87086; 93005; 93010; 93926-TC; 93971-TC; 93976; 94640; 94760; 97161-GP; 99285-25; C9803; J1644; Q9967; U0003

== ENCOUNTER 2020-10-10 12:11 | Inpatient (IN) | payer OTHER ==
[2020-10-10 14:05] LABS: BASO % 0.8 % (0-2.0); EOS % 0.4 % (0-4.5); HEMATOCRIT 33.8 % (32.4-45.2); HEMOGLOBIN 10.7 GM/dL (10.7-15.3); LYMPH % 18.6 % (8-40); MCH 29.7 pg (25.7-33.7); MCHC 31.7 g/dl (32.0-36.0); MEAN CELL VOLUME 93.6 fl (80-96); MEAN PLT VOLUME 9.1 fl (7.5-11.1); MONO % 6.3 % (3.8-10.2); NEUT % 73.9 % (42.8-82.8); PLATELET COUNT 126 K/MM3 (134-434); RBC 3.62 M/mm3 (3.60-5.2); RDW 19.2 % (11.6-15.6); WHITE BLOOD COUNT 7.4 K/mm3 (4.0-10.0)
[2020-10-10 14:22] LABS: CHLORIDE 98 mmol/L (98-107); POTASSIUM 3.9 mmol/L (3.5-5.1); SODIUM 135 mmol/L (136-145)
[2020-10-10 14:24] LABS: ANION GAP 8 MMOL/L (8-16); BLOOD UREA NITROGEN 49.8 mg/dL (7-18); CALCIUM 8.2 mg/dL (8.5-10.1); CO2 29 mmol/L (21-32); GLUCOSE,RANDOM 194 mg/dL (74-106)
[2020-10-10 14:25] LABS: ALBUMIN 2.5 g/dl (3.4-5.0); MAGNESIUM 1.9 mg/dL (1.8-2.4)
[2020-10-10 14:27] LABS: CREATININE 1.4 mg/dL (0.55-1.3)
[2020-10-10 14:28] LABS: SGOT/AST 11 U/L (15-37); SGPT/ALT 15 U/L (13-61)
[2020-10-10 14:29] LABS: BILIRUBIN,TOTAL 0.8 mg/dL (0.2-1); TOT PROT 5.8 g/dl (6.4-8.2)
[2020-10-10 14:31] LABS: ALK PHOS 241 U/L (45-117)
[2020-10-10 14:32] LABS: N-TERMINAL BNP 11819.7 pg/ml (5-125)
[2020-10-10] MEDS ORDERED: ACETAMINOPHEN 1000 MG/100 ML VIAL (NON FORMULARY) IVPB ONE ×2 (15:00→20:14)
[2020-10-10 15:17] LABS: INR 9.1 (0.83-1.09)
[2020-10-10] MEDS ORDERED: ACETAMINOPHEN INJECTION 100 ML IVPB ONE ×2 (16:04→20:38)
[2020-10-10] MEDS ORDERED: FUROSEMIDE 40 MG/4 ML INJECTABLE VIAL IVPUSH ONE (17:02)
[2020-10-10] MEDS ORDERED: FUROSEMIDE 40 MG/4 ML INJECTABLE VIAL ONE (17:32)
[2020-10-10] MEDS ORDERED: PHYTONADIONE 10 MG/1 ML AMP SQ ONE (20:13)
[2020-10-10] MEDS ORDERED: ALBUTEROL SO4 2.5/IPRATROPIUM 0.5 INH SOL 3 ML VIAL.NEB. NEB PRN (20:14)
[2020-10-10] MEDS ORDERED: PHYTONADIONE 10 MG/1 ML AMP ONE ×2 (20:29→20:38)
[2020-10-10] MEDS ORDERED: TAMSULOSIN HCL 0.4 MG CAP ONE (22:29)
[2020-10-10] MEDS ORDERED: metoPROLOL SUCCINATE 25 MG TAB.SR.24H (FP) ONE (22:29)
[2020-10-10] MEDS ORDERED: SENNOSIDES 8.6MG TABLET (FP) PO ONE (22:29)
[2020-10-10] MEDS ORDERED: DOCUSATE SODIUM 100 MG CAPSULE (FP) PO ONE (22:30)
[2020-10-10] MEDS: metoPROLOL SUCCINATE 25 MG TAB.SR.24H (FP) PO SCH ×2 (22:33→22:36)
[2020-10-10] MEDS: TAMSULOSIN HCL 0.4 MG CAP PO SCH (22:33)
[2020-10-10] MEDS: SENNOSIDES 8.6MG TABLET (FP) PO SCH (22:33)
[2020-10-10] MEDS: DOCUSATE SODIUM 100 MG CAPSULE (FP) PO SCH (22:33)
[2020-10-10] MEDS: PRAMIPEXOLE DIHYDROCHLORIDE 0.25 MG TABLET PO SCH (23:57)
[2020-10-10] MEDS: SIMETHICONE 80 MG TAB.CHEW (FP) PO PRN (23:58)
[2020-10-10] MEDS: traMADol HCL 50 MG TABLET PO PRN (23:58)
[2020-10-11] MEDS: NYSTATIN POWDER 100,000 UNITS/GM - 15 GM TOPICAL POWDER TP SCH ×3 (00:16→21:35)
[2020-10-11] MEDS ORDERED: ACETAMINOPHEN 325 MG TABLET (FP) PO ONE (04:30)
[2020-10-11] MEDS: LEVOTHYROXINE NA 25 MCG TABLET (FP) PO SCH (06:39)
[2020-10-11] MEDS: FUROSEMIDE 40 MG/4 ML INJECTABLE VIAL IVPUSH SCH ×2 (06:39→15:34)
[2020-10-11] MEDS: ALBUTEROL SO4 2.5/IPRATROPIUM 0.5 INH SOL 3 ML VIAL.NEB. NEB SCH ×4 (07:35→20:50)
[2020-10-11] MEDS: PANTOPRAZOLE 40 MG TABLET PO SCH (09:48)
[2020-10-11] MEDS: MULTIVITAMINS (DAILY MVI) TABLET (FP) PO SCH (09:48)
[2020-10-11] MEDS: POLYETHYLENE GLYCOL 3350 119 GM BTL PO SCH (09:48)
[2020-10-11] MEDS: CYANOCOBALAMIN 1,000 MCG TABLET (FP) PO SCH (09:48)
[2020-10-11] MEDS: metoPROLOL SUCCINATE 25 MG TAB.SR.24H (FP) PO SCH ×2 (09:48→21:34)
[2020-10-11] MEDS: traMADol HCL 50 MG TABLET PO PRN ×2 (09:48→17:44)
[2020-10-11] MEDS: PRAMIPEXOLE DIHYDROCHLORIDE 0.25 MG TABLET PO SCH ×2 (09:48→21:35)
[2020-10-11 17:00] LABS: HEMATOCRIT 34.5 % (32.4-45.2); HEMOGLOBIN 10.7 GM/dL (10.7-15.3); MCH 29.7 pg (25.7-33.7); MCHC 31.1 g/dl (32.0-36.0); MEAN CELL VOLUME 95.6 fl (80-96); PLATELET COUNT 132 K/MM3 (134-434); RBC 3.61 M/mm3 (3.60-5.2); WHITE BLOOD COUNT 6.9 K/mm3 (4.0-10.0)
[2020-10-11 17:10] LABS: PROTHROMBIN TIME (PATIENT) 65.4 SEC (9.7-13.0)
[2020-10-11 17:22] LABS: INR 5.69 (0.83-1.09)
[2020-10-11 17:28] LABS: POTASSIUM 3.8 mmol/L (3.5-5.1)
[2020-10-11 17:29] LABS: CALCIUM 8.5 mg/dL (8.5-10.1)
[2020-10-11 17:30] LABS: BLOOD UREA NITROGEN 48.4 mg/dL (7-18); MAGNESIUM 2.1 mg/dL (1.8-2.4)
[2020-10-11 17:33] LABS: CREATININE 1.3 mg/dL (0.55-1.3)
[2020-10-11] MEDS: DOCUSATE SODIUM 100 MG CAPSULE (FP) PO SCH (21:34)
[2020-10-11] MEDS: SENNOSIDES 8.6MG TABLET (FP) PO SCH (21:35)
[2020-10-11] MEDS: SIMETHICONE 80 MG TAB.CHEW (FP) PO PRN (21:35)
[2020-10-11] MEDS: TAMSULOSIN HCL 0.4 MG CAP PO SCH (21:35)
[2020-10-12] MEDS: traMADol HCL 50 MG TABLET PO PRN (01:04)
[2020-10-12] MEDS: SIMETHICONE 80 MG TAB.CHEW (FP) PO PRN (01:42)
[2020-10-12] MEDS: FUROSEMIDE 40 MG/4 ML INJECTABLE VIAL IVPUSH SCH ×2 (05:20→13:19)
[2020-10-12] MEDS: LEVOTHYROXINE NA 25 MCG TABLET (FP) PO SCH (06:09)
[2020-10-12] MEDS: ALBUTEROL SO4 2.5/IPRATROPIUM 0.5 INH SOL 3 ML VIAL.NEB. NEB SCH ×4 (07:30→21:05)
[2020-10-12 08:12] LABS: PROTHROMBIN TIME (PATIENT) 51.5 SEC (9.7-13.0)
[2020-10-12 08:16] LABS: BASO % 0.7 % (0-2.0); EOS % 1.4 % (0-4.5); HEMATOCRIT 35.7 % (32.4-45.2); HEMOGLOBIN 11.2 GM/dL (10.7-15.3); LYMPH % 22.3 % (8-40); MCH 29.8 pg (25.7-33.7); MCHC 31.4 g/dl (32.0-36.0); MEAN CELL VOLUME 94.9 fl (80-96); MEAN PLT VOLUME 10.2 fl (7.5-11.1); MONO % 8.2 % (3.8-10.2); NEUT % 67.4 % (42.8-82.8); PLATELET COUNT 137 K/MM3 (134-434); RBC 3.76 M/mm3 (3.60-5.2); RDW 19.2 % (11.6-15.6); WHITE BLOOD COUNT 8.2 K/mm3 (4.0-10.0)
[2020-10-12 08:40] LABS: ALBUMIN 2.5 g/dl (3.4-5.0); BILIRUBIN,TOTAL 0.7 mg/dL (0.2-1); BLOOD UREA NITROGEN 48.3 mg/dL (7-18); TOT PROT 6.1 g/dl (6.4-8.2)
[2020-10-12 08:43] LABS: CALCIUM 8.9 mg/dL (8.5-10.1); CREATININE 1.3 mg/dL (0.55-1.3)
[2020-10-12 08:54] LABS: INR 4.37 (0.83-1.09)
[2020-10-12] MEDS ORDERED: ONDANSETRON 4 MG/2 ML VIAL IVPB ONE (10:12)
[2020-10-12] MEDS: POLYETHYLENE GLYCOL 3350 119 GM BTL PO SCH (10:24)
[2020-10-12] MEDS: metoPROLOL SUCCINATE 25 MG TAB.SR.24H (FP) PO SCH ×2 (10:24→22:52)
[2020-10-12] MEDS ORDERED: ONDANSETRON 4 MG/2 ML VIAL ONE ×2 (10:26)
[2020-10-12] MEDS: NYSTATIN POWDER 100,000 UNITS/GM - 15 GM TOPICAL POWDER TP SCH ×2 (10:29→22:53)
[2020-10-12] MEDS: MULTIVITAMINS (DAILY MVI) TABLET (FP) PO SCH (12:52)
[2020-10-12] MEDS: PRAMIPEXOLE DIHYDROCHLORIDE 0.25 MG TABLET PO SCH ×2 (12:52→23:54)
[2020-10-12] MEDS: PANTOPRAZOLE 40 MG TABLET PO SCH (12:52)
[2020-10-12] MEDS: CYANOCOBALAMIN 1,000 MCG TABLET (FP) PO SCH (12:53)
[2020-10-12] MEDS ORDERED: AZITHROMYCIN IVPB 500 MG/250 ML BAG IVPB ONE (19:07)
[2020-10-12] MEDS: CEFTRIAXONE 1 GM in DEXTROSE 5%-WATER - 50 ML IVPB SCH (19:10)
[2020-10-12] MEDS: TAMSULOSIN HCL 0.4 MG CAP PO SCH (22:21)
[2020-10-12] MEDS: SENNOSIDES 8.6MG TABLET (FP) PO SCH (22:52)
[2020-10-12] MEDS: DOCUSATE SODIUM 100 MG CAPSULE (FP) PO SCH (22:54)
[2020-10-12] MEDS ORDERED: DEXTROSE 5%-WATER - 50 ML IVPB ONE (23:57)
[2020-10-12] MEDS ORDERED: cefTRIAXone SODIUM 1 GM VIAL ONE (23:57)
[2020-10-13] MEDS: FUROSEMIDE 40 MG/4 ML INJECTABLE VIAL IVPUSH SCH (06:27)
[2020-10-13] MEDS: ALBUTEROL SO4 2.5/IPRATROPIUM 0.5 INH SOL 3 ML VIAL.NEB. NEB SCH ×4 (07:40→20:10)
[2020-10-13] MEDS: LEVOTHYROXINE NA 25 MCG TABLET (FP) PO SCH (08:43)
[2020-10-13] MEDS ORDERED: cefTRIAXone SODIUM 1 GM VIAL ONE (09:57)
[2020-10-13] MEDS ORDERED: DEXTROSE 5%-WATER - 50 ML IVPB ONE (09:57)
[2020-10-13] MEDS ORDERED: AZITHROMYCIN IVPB 250 MG in DEXTROSE 5%-WATER - 250 ML IVPB SCH (10:00)
[2020-10-13] MEDS: CEFTRIAXONE 1 GM in DEXTROSE 5%-WATER - 50 ML IVPB SCH (10:07)
[2020-10-13] MEDS: POLYETHYLENE GLYCOL 3350 119 GM BTL PO SCH (10:12)
[2020-10-13] MEDS: MULTIVITAMINS (DAILY MVI) TABLET (FP) PO SCH (10:13)
[2020-10-13] MEDS: PRAMIPEXOLE DIHYDROCHLORIDE 0.25 MG TABLET PO SCH ×2 (10:13→21:22)
[2020-10-13] MEDS: PANTOPRAZOLE 40 MG TABLET PO SCH (10:13)
[2020-10-13] MEDS: CYANOCOBALAMIN 1,000 MCG TABLET (FP) PO SCH (10:14)
[2020-10-13] MEDS: metoPROLOL SUCCINATE 25 MG TAB.SR.24H (FP) PO SCH ×2 (10:19→21:29)
[2020-10-13 11:13] LABS: HEMATOCRIT 38.6 % (32.4-45.2); MCH 29.8 pg (25.7-33.7); MCHC 31.1 g/dl (32.0-36.0); MEAN CELL VOLUME 95.7 fl (80-96); MEAN PLT VOLUME 9.6 fl (7.5-11.1); PLATELET COUNT 164 K/MM3 (134-434); RBC 4.03 M/mm3 (3.60-5.2); RDW 19.4 % (11.6-15.6); WHITE BLOOD COUNT 5.5 K/mm3 (4.0-10.0)
[2020-10-13 11:19] LABS: INR 3.36 (0.83-1.09); PROTHROMBIN TIME (PATIENT) 39.3 SEC (9.7-13.0)
[2020-10-13 11:27] LABS: POTASSIUM 4.2 mmol/L (3.5-5.1)
[2020-10-13 11:31] LABS: ALBUMIN 2.5 g/dl (3.4-5.0); BLOOD UREA NITROGEN 53.5 mg/dL (7-18)
[2020-10-13 11:34] LABS: CREATININE 1.6 mg/dL (0.55-1.3)
[2020-10-13 11:38] LABS: CALCIUM 8.5 mg/dL (8.5-10.1)
[2020-10-13] MEDS ORDERED: AZITHROMYCIN 250 MG TABLET PO ONE (13:59)
[2020-10-13 14:39] VITALS: BMI 34.7
[2020-10-13] MEDS: NYSTATIN POWDER 100,000 UNITS/GM - 15 GM TOPICAL POWDER TP SCH ×2 (15:14→21:20)
[2020-10-13] MEDS: SENNOSIDES 8.6MG TABLET (FP) PO SCH (21:21)
[2020-10-13] MEDS: TAMSULOSIN HCL 0.4 MG CAP PO SCH (21:21)
[2020-10-13] MEDS: DOCUSATE SODIUM 100 MG CAPSULE (FP) PO SCH (21:21)
[2020-10-13] MEDS: CEFUROXIME AXETIL 250 MG TABLET PO SCH (22:01)
[2020-10-14] MEDS: LEVOTHYROXINE NA 25 MCG TABLET (FP) PO SCH (06:25)
[2020-10-14] MEDS: ALBUTEROL SO4 2.5/IPRATROPIUM 0.5 INH SOL 3 ML VIAL.NEB. NEB SCH ×4 (08:05→19:43)
[2020-10-14] MEDS ORDERED: SIMETHICONE 80 MG TAB.CHEW (FP) PO PRN (08:29)
[2020-10-14] MEDS: MULTIVITAMINS (DAILY MVI) TABLET (FP) PO SCH (10:36)
[2020-10-14] MEDS: FUROSEMIDE 40 MG TABLET (FP) PO SCH (10:36)
[2020-10-14] MEDS: PANTOPRAZOLE 40 MG TABLET PO SCH (10:36)
[2020-10-14] MEDS: metoPROLOL SUCCINATE 25 MG TAB.SR.24H (FP) PO SCH ×2 (10:36→21:54)
[2020-10-14] MEDS: POLYETHYLENE GLYCOL 3350 119 GM BTL PO SCH (10:37)
[2020-10-14 11:21] LABS: HEMATOCRIT 35.8 % (32.4-45.2); HEMOGLOBIN 11.2 GM/dL (10.7-15.3); MCH 29.5 pg (25.7-33.7); MCHC 31.4 g/dl (32.0-36.0); MEAN PLT VOLUME 8.8 fl (7.5-11.1); PLATELET COUNT 154 K/MM3 (134-434); RDW 19.4 % (11.6-15.6); WHITE BLOOD COUNT 6.1 K/mm3 (4.0-10.0)
[2020-10-14 11:33] LABS: INR 2.49 (0.83-1.09); PROTHROMBIN TIME (PATIENT) 29.8 SEC (9.7-13.0)
[2020-10-14 11:47] LABS: POTASSIUM 4.6 mmol/L (3.5-5.1)
[2020-10-14 12:01] LABS: ALBUMIN 2.7 g/dl (3.4-5.0); CALCIUM 8.9 mg/dL (8.5-10.1)
[2020-10-14 12:05] LABS: CREATININE 1.8 mg/dL (0.55-1.3)
[2020-10-14 12:06] LABS: BILIRUBIN,TOTAL 0.9 mg/dL (0.2-1); TOT PROT 6.4 g/dl (6.4-8.2)
[2020-10-14] MEDS: AMINO ACIDS/PROTEIN HYDROLYS 30 ML LIQUID.PKT PO SCH (12:39)
[2020-10-14] MEDS: CEFUROXIME AXETIL 250 MG TABLET PO SCH ×2 (12:39→21:55)
[2020-10-14] MEDS: PRAMIPEXOLE DIHYDROCHLORIDE 0.25 MG TABLET PO SCH ×2 (12:39→21:54)
[2020-10-14] MEDS: CYANOCOBALAMIN 1,000 MCG TABLET (FP) PO SCH (12:40)
[2020-10-14] MEDS: NYSTATIN POWDER 100,000 UNITS/GM - 15 GM TOPICAL POWDER TP SCH ×2 (17:18→22:32)
[2020-10-14] MEDS: COLLAGENASE CLOSTRIDIUM HIST. 30 GRAMS TUBE TP SCH (17:19)
[2020-10-14] MEDS: SENNOSIDES 8.6MG TABLET (FP) PO SCH (21:53)
[2020-10-14] MEDS: TAMSULOSIN HCL 0.4 MG CAP PO SCH (21:54)
[2020-10-14] MEDS: DOCUSATE SODIUM 100 MG CAPSULE (FP) PO SCH (21:54)
[2020-10-15] MEDS: LEVOTHYROXINE NA 25 MCG TABLET (FP) PO SCH (06:05)
[2020-10-15] MEDS: ALBUTEROL SO4 2.5/IPRATROPIUM 0.5 INH SOL 3 ML VIAL.NEB. NEB SCH ×4 (08:25→20:17)
[2020-10-15] MEDS: AMINO ACIDS/PROTEIN HYDROLYS 30 ML LIQUID.PKT PO SCH (10:34)
[2020-10-15] MEDS: FUROSEMIDE 40 MG TABLET (FP) PO SCH (10:42)
[2020-10-15] MEDS: PRAMIPEXOLE DIHYDROCHLORIDE 0.25 MG TABLET PO SCH ×2 (10:42→22:30)
[2020-10-15] MEDS: CEFUROXIME AXETIL 250 MG TABLET PO SCH ×2 (10:42→21:01)
[2020-10-15] MEDS: MULTIVITAMINS (DAILY MVI) TABLET (FP) PO SCH (10:43)
[2020-10-15] MEDS: CYANOCOBALAMIN 1,000 MCG TABLET (FP) PO SCH (10:43)
[2020-10-15] MEDS: PANTOPRAZOLE 40 MG TABLET PO SCH (10:43)
[2020-10-15] MEDS: metoPROLOL SUCCINATE 25 MG TAB.SR.24H (FP) PO SCH ×2 (10:43→21:01)
[2020-10-15] MEDS: COLLAGENASE CLOSTRIDIUM HIST. 30 GRAMS TUBE TP SCH (10:44)
[2020-10-15] MEDS: NYSTATIN POWDER 100,000 UNITS/GM - 15 GM TOPICAL POWDER TP SCH (10:44)
[2020-10-15] MEDS: POLYETHYLENE GLYCOL 3350 119 GM BTL PO SCH (10:45)
[2020-10-15] MEDS: TORSEMIDE 20 MG TABLET (FP) PO SCH (17:36)
[2020-10-15] MEDS: WARFARIN NA 1 MG TABLET PO SCH (18:19)
[2020-10-15] MEDS: TAMSULOSIN HCL 0.4 MG CAP PO SCH (21:00)
[2020-10-15] MEDS: DOCUSATE SODIUM 100 MG CAPSULE (FP) PO SCH (21:00)
[2020-10-15] MEDS: SENNOSIDES 8.6MG TABLET (FP) PO SCH (21:01)
[2020-10-15] MEDS ORDERED: ONDANSETRON 4 MG/2 ML VIAL IVPUSH ONE (21:02)
[2020-10-15] MEDS ORDERED: traMADol HCL 50 MG TABLET PO STA (21:28)
[2020-10-16] MEDS: NYSTATIN POWDER 100,000 UNITS/GM - 15 GM TOPICAL POWDER TP SCH ×3 (05:18→21:09)
[2020-10-16] MEDS: LEVOTHYROXINE NA 25 MCG TABLET (FP) PO SCH (06:09)
[2020-10-16] MEDS: AMINO ACIDS/PROTEIN HYDROLYS 30 ML LIQUID.PKT PO SCH (07:42)
[2020-10-16] MEDS: ALBUTEROL SO4 2.5/IPRATROPIUM 0.5 INH SOL 3 ML VIAL.NEB. NEB SCH ×4 (07:45→20:30)
[2020-10-16 08:59] LABS: POTASSIUM 4.4 mmol/L (3.5-5.1)
[2020-10-16 09:01] LABS: ALBUMIN 2.6 g/dl (3.4-5.0); BLOOD UREA NITROGEN 66.2 mg/dL (7-18)
[2020-10-16 09:04] LABS: CREATININE 1.8 mg/dL (0.55-1.3)
[2020-10-16 09:06] LABS: BILIRUBIN,TOTAL 0.7 mg/dL (0.2-1); TOT PROT 6.2 g/dl (6.4-8.2)
[2020-10-16] MEDS ORDERED: FUROSEMIDE 40 MG/4 ML INJECTABLE VIAL IVPUSH ONE (10:01)
[2020-10-16] MEDS: MULTIVITAMINS (DAILY MVI) TABLET (FP) PO SCH (10:15)
[2020-10-16] MEDS: PRAMIPEXOLE DIHYDROCHLORIDE 0.25 MG TABLET PO SCH ×2 (10:15→21:01)
[2020-10-16] MEDS: POLYETHYLENE GLYCOL 3350 119 GM BTL PO SCH (10:15)
[2020-10-16] MEDS: PANTOPRAZOLE 40 MG TABLET PO SCH (10:15)
[2020-10-16] MEDS: CEFUROXIME AXETIL 250 MG TABLET PO SCH (10:15)
[2020-10-16] MEDS: CYANOCOBALAMIN 1,000 MCG TABLET (FP) PO SCH (10:15)
[2020-10-16] MEDS: TORSEMIDE 20 MG TABLET (FP) PO SCH (10:16)
[2020-10-16] MEDS: metoPROLOL SUCCINATE 25 MG TAB.SR.24H (FP) PO SCH ×2 (10:17→21:01)
[2020-10-16] MEDS: COLLAGENASE CLOSTRIDIUM HIST. 30 GRAMS TUBE TP SCH (10:19)
[2020-10-16] MEDS: METOLAZONE 2.5 MG TABLET (FP) PO SCH (12:00)
[2020-10-16] MEDS: ALBUTEROL SO4 2.5/IPRATROPIUM 0.5 INH SOL 3 ML VIAL.NEB. NEB PRN (13:35)
[2020-10-16] MEDS ORDERED: ACETAMINOPHEN 500 MG TABLET (FP) PO PRN ×2 (16:32→16:33)
[2020-10-16] MEDS ORDERED: ACETAMINOPHEN 500 MG TABLET (FP) PO ONE (16:33)
[2020-10-16] MEDS: WARFARIN NA 1 MG TABLET PO SCH (18:31)
[2020-10-16] MEDS: TAMSULOSIN HCL 0.4 MG CAP PO SCH (21:02)
[2020-10-16] MEDS: SENNOSIDES 8.6MG TABLET (FP) PO SCH (21:02)
[2020-10-16] MEDS: DOCUSATE SODIUM 100 MG CAPSULE (FP) PO SCH (21:02)
[2020-10-17] MEDS: LEVOTHYROXINE NA 25 MCG TABLET (FP) PO SCH (06:08)
[2020-10-17] MEDS: ALBUTEROL SO4 2.5/IPRATROPIUM 0.5 INH SOL 3 ML VIAL.NEB. NEB SCH ×4 (07:54→20:50)
[2020-10-17] MEDS: AMINO ACIDS/PROTEIN HYDROLYS 30 ML LIQUID.PKT PO SCH (08:50)
[2020-10-17] MEDS: PRAMIPEXOLE DIHYDROCHLORIDE 0.25 MG TABLET PO SCH ×2 (09:10→22:06)
[2020-10-17] MEDS: PANTOPRAZOLE 40 MG TABLET PO SCH (09:10)
[2020-10-17] MEDS: CYANOCOBALAMIN 1,000 MCG TABLET (FP) PO SCH (09:10)
[2020-10-17] MEDS: MULTIVITAMINS (DAILY MVI) TABLET (FP) PO SCH (09:10)
[2020-10-17] MEDS: metoPROLOL SUCCINATE 25 MG TAB.SR.24H (FP) PO SCH ×2 (09:10→22:06)
[2020-10-17] MEDS: TORSEMIDE 20 MG TABLET (FP) PO SCH (09:11)
[2020-10-17] MEDS: POLYETHYLENE GLYCOL 3350 119 GM BTL PO SCH (09:11)
[2020-10-17] MEDS: COLLAGENASE CLOSTRIDIUM HIST. 30 GRAMS TUBE TP SCH (11:00)
[2020-10-17] MEDS: NYSTATIN POWDER 100,000 UNITS/GM - 15 GM TOPICAL POWDER TP SCH ×2 (11:00→22:05)
[2020-10-17 11:15] LABS: INR 2.26 (0.83-1.09); PROTHROMBIN TIME (PATIENT) 26.7 SEC (9.7-13.0)
[2020-10-17 11:27] LABS: POTASSIUM 4.5 mmol/L (3.5-5.1)
[2020-10-17 11:32] LABS: CREATININE 1.7 mg/dL (0.55-1.3)
[2020-10-17] MEDS: ALBUTEROL SO4 2.5/IPRATROPIUM 0.5 INH SOL 3 ML VIAL.NEB. NEB PRN (19:06)
[2020-10-17] MEDS: WARFARIN NA 1 MG TABLET PO SCH (19:23)
[2020-10-17] MEDS: SENNOSIDES 8.6MG TABLET (FP) PO SCH ×2 (22:05)
[2020-10-17] MEDS: TAMSULOSIN HCL 0.4 MG CAP PO SCH (22:06)
[2020-10-17] MEDS: DOCUSATE SODIUM 100 MG CAPSULE (FP) PO SCH (22:06)
[2020-10-18] MEDS: LEVOTHYROXINE NA 25 MCG TABLET (FP) PO SCH (06:47)
[2020-10-18] MEDS: ALBUTEROL SO4 2.5/IPRATROPIUM 0.5 INH SOL 3 ML VIAL.NEB. NEB PRN (06:50)
[2020-10-18] MEDS: ALBUTEROL SO4 2.5/IPRATROPIUM 0.5 INH SOL 3 ML VIAL.NEB. NEB SCH ×2 (08:35→13:10)
[2020-10-18] MEDS: TORSEMIDE 20 MG TABLET (FP) PO SCH (09:31)
[2020-10-18] MEDS: AMINO ACIDS/PROTEIN HYDROLYS 30 ML LIQUID.PKT PO SCH (09:31)
[2020-10-18] MEDS: PRAMIPEXOLE DIHYDROCHLORIDE 0.25 MG TABLET PO SCH (09:32)
[2020-10-18] MEDS: COLLAGENASE CLOSTRIDIUM HIST. 30 GRAMS TUBE TP SCH (09:32)
[2020-10-18] MEDS: PANTOPRAZOLE 40 MG TABLET PO SCH (09:32)
[2020-10-18] MEDS: NYSTATIN POWDER 100,000 UNITS/GM - 15 GM TOPICAL POWDER TP SCH (09:32)
[2020-10-18] MEDS: POLYETHYLENE GLYCOL 3350 119 GM BTL PO SCH (09:32)
[2020-10-18] MEDS: MULTIVITAMINS (DAILY MVI) TABLET (FP) PO SCH (09:32)
[2020-10-18] MEDS: metoPROLOL SUCCINATE 25 MG TAB.SR.24H (FP) PO SCH (09:33)
[2020-10-18] MEDS: METOLAZONE 2.5 MG TABLET (FP) PO SCH (09:33)
[2020-10-18] MEDS: CYANOCOBALAMIN 1,000 MCG TABLET (FP) PO SCH (09:33)
[2020-10-18] MEDS ORDERED: traMADol HCL 50 MG TABLET PO PRN (11:30)
[2020-10-18] MEDS ORDERED: ACETAMINOPHEN 325 MG TABLET (FP) PO PRN (11:30)
[2020-10-18] MEDS ORDERED: TORSEMIDE 20 MG TABLET (FP) PO ONE (12:11)
[2020-10-18] MEDS ORDERED: TORSEMIDE 20 MG TABLET (FP) PO SCH (12:11)
[2020-10-18 12:22] LABS: INR 2.37 (0.83-1.09); PROTHROMBIN TIME (PATIENT) 28.4 SEC (9.7-13.0)
[2020-10-18 12:45] LABS: POTASSIUM 4.2 mmol/L (3.5-5.1)
[2020-10-18 12:49] LABS: CALCIUM 8.8 mg/dL (8.5-10.1)
[2020-10-18 12:50] LABS: BLOOD UREA NITROGEN 67.4 mg/dL (7-18)
[2020-10-18 12:53] LABS: CREATININE 1.7 mg/dL (0.55-1.3)
[2020-10-18 16:04] VITALS: BP 99/80; PULSE 104; TEMP 98.2
[2020-10-19] MEDS ORDERED: TORSEMIDE 20 MG TABLET (FP) PO SCH (06:00)
== END 2020-10-18 17:46 | disposition short-term general hospital (02) | DRG 291 ==
LOC: JER 12:11 → JERBED 14:13 → J7W 23:25 → J6WEST-2 10-12 08:25
PROVIDERS: ADMIT Internal Medicine; ATTEND Family Medicine
DX: I13.0 Hypertensive heart and chronic kidney disease with heart failure and stage 1 through stage 4 chronic kidney disease, or unspecified chronic kidney disease (principal); I50.23 Acute on chronic systolic (congestive) heart failure; N17.9 Acute kidney failure, unspecified; E11.40 Type 2 diabetes mellitus with diabetic neuropathy, unspecified; I42.8 Other cardiomyopathies; D64.9 Anemia, unspecified; Z79.01 Long term (current) use of anticoagulants; Z86.718 Personal history of other venous thrombosis and embolism; E66.9 Obesity, unspecified; Z68.34 Body mass index [BMI] 34.0-34.9, adult; M06.9 Rheumatoid arthritis, unspecified; I34.0 Nonrheumatic mitral (valve) insufficiency; N18.9 Chronic kidney disease, unspecified; E11.22 Type 2 diabetes mellitus with diabetic chronic kidney disease; I48.0 Paroxysmal atrial fibrillation; Z99.81 Dependence on supplemental oxygen; Z66 Do not resuscitate; Z88.0 Allergy status to penicillin; Z86.711 Personal history of pulmonary embolism
CPT/HCPCS: 36415; 71045-TC-FY; 71275-TC; 76700-TC; 80048; 80053; 82962; 83735; 83880; 84484; 85025; 85027; 85379; 85610; 85730; 93005; 93010; 94640; 99285-25; C9803; J0131; Q9967; U0003